=== PATIENT | female | born 1955 | race Caucasian/White ===

== ENCOUNTER → 2017-08-09 16:34 | Outpatient (CLI) | payer BC, SELFPAY ==
--- NOTE | 2017-08-09 16:43 | XR_ITS ---
XR lumbar spine min 4V Ordering Physician: Saul Benitez MD Patient Age: 61 years: Female HISTORY: ITS.REASON: LOW BACK PAIN [Back pain TECHNIQUE: 5 view lumbar spine series None available COMPARISON : FINDINGS Vertebral bodies show no acute findings. There is mild disc space narrowing mainly seen at the lower thoracic, thoracolumbar junction.. In the lumbar region disc space narrowing most notable L 2/3 with perhaps scant retrolisthesis. L2 on 3. AP view shows minor levocurvature at the upper lumbar spine L1-L3 level. As well.. Anterior marginal osteophytes most evident towards the upper lumbar region. Pedicles intact. Prominent stool is seen throughout the colon. No bowel dilatation or obstruction. . Lateral film also shows apposition of prominent posterior spinous processes- which can also be a source of local lower pain posteriorly. Mild/moderate degenerative facet changes lower L-spine also noted IMPRESSION: Developing degenerative changes lumbar spine. As detailed in text Disc space narrowing most notable at L2/3.. Mild levoscoliosis upper lumbar spine No fracture or acute findings lumbar region
== END ==
PROVIDERS: PCP Family Medicine; Visit Provider Family Medicine
DX: M54.5 Low back pain (principal)
CPT/HCPCS: 72110

== ENCOUNTER → 2017-10-25 07:59 | Outpatient (CLI) | payer BC, SELFPAY ==
--- NOTE | 2017-10-25 08:06 | MR_ITS ---
MR head/brain wo con HISTORY: February loss, headache, dizziness, falling frequently ITS.REASON: MEMORY LOSS ORDERING PHYSICIAN: Saul Benitez MD PATIENT AGE: 62 years COMPARISON: 03/08/2015 TECHNIQUE: Standard multiplanar multiecho sequences are performed without contrast. FINDINGS: There is generalized atrophy with scattered periventricular and subcortical T2 white matter hyperintensities. No midline shift, mass effect, intracranial hemorrhage, or hydrocephalus. No evidence of acute infarction. There is nonspecific increased T2 signal within the central aspect of the armen and may be related to ischemic gliotic change. The cerebellopontine angles, cerebellum, and brainstem are unremarkable. The mesentery, optic chiasm, and corpus callosum are unremarkable. No cerebellar ectopia. The hippocampal gyri are unremarkable in the temporal horns are symmetric. No mastoid effusion or sinus air-fluid level. No large aneurysm. Small aneurysms may not be detected with this technique and may be better evaluated for with MRA if clinically warranted IMPRESSION: 1. No acute intracranial findings. 2. Atrophy with mild chronic ischemic gliotic change IMPRESSION:
== END ==
PROVIDERS: PCP Family Medicine; Visit Provider Family Medicine
DX: R41.3 Other amnesia (principal)
CPT/HCPCS: 70551

== ENCOUNTER → 2018-02-15 09:23 | Outpatient (CLI) | payer MEDICARE, BC, SELFPAY ==
[2018-02-15 10:00] LABS: Basophils % 0.4 % (0.1-2.0); Eosinophils # 0.2 K/mm3 (0.0-0.4); Eosinophils % 2.9 % (0.1-12.0); Hematocrit 39.9 % (37.0-47.0); Hemoglobin 13.1 g/dL (12.2-16.2); Lymphocytes # 1.5 K/mm3 (0.7-4.5); Mean Corpuscular HGB Conc 32.8 g/dL (31.8-35.4); Mean Corpuscular Hemoglobin 28.2 pg (27.0-31.2); Mean Platelet Volume 6.9 fl (7.4-10.4); Monocytes # 0.4 K/mm3 (0.1-1.0); Neutrophils # 4.4 K/mm3 (1.8-7.8); Neutrophils % 67.8 % (37.0-80.0); Platelet Count 303 K/mm3 (142-424); Red Blood Count 4.64 M/mm3 (4.20-5.40); Red Cell Distribution Width 15.4 % (11.5-17.5); White Blood Count 6.5 K/mm3 (4.8-10.8)
[2018-02-15 13:14] LABS: Alanine Aminotransferase 31 U/L (12-78); Albumin Level 3.5 gm/dL (3.4-5.0); Albumin/Globulin Ratio 1.1 (1.1-1.8); Alkaline Phosphatase 96 U/L (46-116); Anion Gap 7.9 mEq/L (5-15); Aspartate Amino Transferase 18 U/L (15-37); Bilirubin,Total 0.3 mg/dL (0.2-1.0); Blood Urea Nitrogen 21 mg/dL (7-18); Calcium 9.3 mg/dL (8.5-10.1); Carbon Dioxide 30 mmol/L (21.0-32.0); Chloride 106 mmol/L (98-107); Creatinine,Serum 0.93 mg/dL (0.55-1.02); Estimated Glomerular Filt Rate 61 ml/min (>60); GFR (African American) 74 ML/MIN (>60); Globulin 3.2 gm/dl (1.3-3.2); Glucose 105 mg/dL (74-106); Potassium 4.9 mmoL/L (3.5-5.1); Sodium 139 mmol/L (136-145); Thyroid Stimulating Hormone 0.45 uIU/ml (0.358-3.740); Total Protein,Serum 6.7 gm/dL (6.4-8.2)
[2018-02-15 13:27] LABS: Erythrocyte Sedimentation Rate 20 mm/hr (0-30)
[2018-02-16 09:21] LABS: Vitamin B12 383 pg/mL (232-1245)
[2018-02-16 14:17] LABS: Anti-Jo-1 <0.2 AI (0.0-0.9); Anti-Smith Antibody <0.2 AI (0.0-0.9); Antichromatin Antibodies <0.2 AI (0.0-0.9); Antiscleroderma-70 Antibodies <0.2 AI (0.0-0.9); RNP Antibodies 0.3 AI (0.0-0.9); Sjogren's Anti-SS-A <0.2 AI (0.0-0.9); Sjogren's Anti-SS-B <0.2 AI (0.0-0.9)
[2018-02-17 06:51] LABS: Anti-Centromere B Antibodies <0.2 AI (0.0-0.9); Anti-DNA (DS) Ab Qn <1 IU/mL (0-9); Folate 3.5 ng/mL (>3.0); Rapid Plasma Reagin Ab Titer Non Reactive (NonRea<1:1)
== END ==
PROVIDERS: Visit Provider Specialist
DX: J44.9 Chronic obstructive pulmonary disease, unspecified (principal); E78.4 Other hyperlipidemia; G47.33 Obstructive sleep apnea (adult) (pediatric); R41.3 Other amnesia; I25.10 Atherosclerotic heart disease of native coronary artery without angina pectoris; I51.9 Heart disease, unspecified; I11.9 Hypertensive heart disease without heart failure
CPT/HCPCS: 36415; 80053; 82607; 82746; 84443; 85025; 85651; 86225; 86235; 86592; G0399

== ENCOUNTER → 2018-03-07 08:04 | Outpatient (POV) | payer MEDICARE, BC, SELFPAY | PROVIDERS: PCP Family Medicine; Visit Provider Specialist | DX: R41.3 Other amnesia (principal); G47.30 Sleep apnea, unspecified; E78.4 Other hyperlipidemia; J44.9 Chronic obstructive pulmonary disease, unspecified; I25.10 Atherosclerotic heart disease of native coronary artery without angina pectoris; I51.9 Heart disease, unspecified | CPT/HCPCS: 95819 ==

== ENCOUNTER → 2018-04-04 08:45 | Outpatient (CLI) | payer MEDICARE, BC, SELFPAY ==
--- NOTE | 2018-04-04 08:49 | MM_ITS ---
MM Dig screening mamm BI w/CAD ORDERING PHYSICIAN : Saul Benitez MD PATIENT AGE: 62 years GENDER: Female COMPARISON: August INDICATION: Routine screening No hormones no new complaints noncontributory family history TECHNIQUE: Standard CC and MLO images were obtained. R2 CAD reviewed. Axillary cc views both breast included. Also cleavage view FINDINGS: Moderate fibroglandular elements both breasts. Moderate density breast. With no significant new findings. RIGHT BREAST:No new areas of concern Stable intramammary node upper-outer quadrant right breast it is actually smaller today than on previous MLO. LEFT BREAST:No new areas of concern IMPRESSION: . No new areas of significant concern. Stable bilateral mammogram BI-RADS Category: 2 Benign Finding(s) RECOMMENDED FOLLOW-UP: 1YR 1 YEAR FOLLOW-UP (A letter has been sent to the patient regarding results of the study.)
== END ==
PROVIDERS: PCP Family Medicine; Visit Provider Family Medicine
DX: Z12.31 Encounter for screening mammogram for malignant neoplasm of breast (principal)
CPT/HCPCS: 77067

== ENCOUNTER → 2018-06-20 08:17 | Outpatient (CLI) | payer MEDICARE, BC, SELFPAY ==
--- NOTE | 2018-06-20 08:19 | XR_ITS ---
XR DEXA axial skeleton HISTORY: ITS.REASON: Dexa Scan- Possible Osteoporosis ORDERING PHYSICIAN: Alexsi Mitchell MD PATIENT AGE: 62 years COMPARISON: None FINDINGS: The BMD measured at the Right femoral neck is 0.763 g/cm squared with a T score of -2.0. This is considered Osteopenic according to the World Health Organization criteria. Fracture risk is Moderate. Treatment is advised. IMPRESSION: Osteopenia with moderate fracture risk. Treatment is advised. Suggest follow-up exam June 2020
== END ==
PROVIDERS: PCP Family Medicine; Visit Provider Nurse Practitioner Obstetrics & Gynecology
DX: M81.0 Age-related osteoporosis without current pathological fracture (principal)
CPT/HCPCS: 77080

== ENCOUNTER → 2018-06-28 10:11 | Outpatient (CLI) | payer MEDICARE, BC, SELFPAY ==
--- NOTE | 2018-06-28 10:14 | XR_ITS ---
XR chest 2V HISTORY: ITS.REASON: soa. Cough congestion. ORDERING PHYSICIAN: RANI Rowley PATIENT AGE: 62 years Technique: PA and lateral chest. Next field COMPARISON: AP and lateral thoracic spine from 2016. An previous chest film from December 2014 FINDINGS: The heart is normal in size. Jojo and skeletal structures satisfactory. Again note the mild degenerative changes with the minor scoliosis at T-spine. Slight levocurvature upper T-spine with slight dextrocurvature lower T-spine. No compression fractures. . When compared to 2014 there is only some slight additional linear atelectasis towards the left CP angle and slight additional fibrotic changes towards bases likely present. No discrete focal pneumonia . The heart normal size. No vascular congestion. No CHF. No pleural effusion. IMPRESSION Nothing definitely acute . No focal pneumonia evident. No effusion COPD with Chronic changes, mild fibrotic changes & atelectasis toward lung bases left more so than right.. Doubt infiltrate here at left base.
== END ==
PROVIDERS: PCP Family Medicine; Visit Provider Physician Assistant
DX: J44.9 Chronic obstructive pulmonary disease, unspecified (principal); E78.49 Other hyperlipidemia; G47.33 Obstructive sleep apnea (adult) (pediatric); I11.9 Hypertensive heart disease without heart failure; I25.10 Atherosclerotic heart disease of native coronary artery without angina pectoris; I51.9 Heart disease, unspecified; R05 Cough; R06.02 Shortness of breath; R09.89 Other specified symptoms and signs involving the circulatory and respiratory systems
CPT/HCPCS: 71046

== ENCOUNTER → 2018-07-09 10:30 | Outpatient (CLI) | payer MEDICARE, BC, SELFPAY | LOC: LAB 10:32 → LAB.DROPOF 07-10 07:46 | PROVIDERS: Visit Provider Emergency Medicine | DX: J32.0 Chronic maxillary sinusitis (principal) | CPT/HCPCS: 87205 ==

== ENCOUNTER → 2018-07-19 15:20 | Outpatient (CLI) | payer MEDICARE, BC, SELFPAY | PROVIDERS: Visit Provider Emergency Medicine | DX: J32.0 Chronic maxillary sinusitis (principal) | CPT/HCPCS: 87070; 87205 ==

== ENCOUNTER → 2018-07-26 07:47 | Outpatient (CLI) | payer MEDICARE, BC, SELFPAY ==
--- NOTE | 2018-07-26 08:00 | CT_ITS ---
CT sinus wo con CLINICAL INDICATION: ITS.REASON: NASAL CONGESTION WITH RHINORRHEA ORDERING PHYSICIAN: Natalie Garvey MD PATIENT AGE: 62 years COMPARISON: None TECHNIQUE:Axial images obtained with sagittal and coronal reformats. All CT scans at the facility use one or more dose reduction, viz: automated exposure control, ma/kV adjustment per patient size (including targeted exams where dose is matched to indication, i.e. head), or iterative reconstruction technique. FINDINGS: The frontal sinuses, right maxillary sinus, and sphenoid sinuses have an unremarkable appearance. There is opacification of an anterior left ethmoid air cell with the remaining ethmoid sinuses unremarkable. There is a small retention cyst in the floor the left maxillary sinus at 5 mm. No sinus air-fluid level evident. There is moderate rightward nasal septal deviation anteriorly. The ostiomeatal units are patent. The TMJs have an unremarkable appearance. The orbits are unremarkable. No mastoid effusion. IMPRESSION: 1. Minimal paranasal sinus disease of the left ethmoid and maxillary sinus. 2. Moderate rightward nasal septal deviation
== END ==
PROVIDERS: PCP Family Medicine; Visit Provider Emergency Medicine
DX: J34.89 Other specified disorders of nose and nasal sinuses (principal)
CPT/HCPCS: 70486

== ENCOUNTER → 2018-09-12 20:13 | Outpatient (CLI) | payer MEDICARE, BC, SELFPAY | PROVIDERS: PCP Family Medicine; Visit Provider Specialist | DX: G47.33 Obstructive sleep apnea (adult) (pediatric) (principal); R41.3 Other amnesia | CPT/HCPCS: 95811 ==

== ENCOUNTER → 2018-09-13 09:02 | Outpatient (POV) | payer MEDICARE, BC, SELFPAY | PROVIDERS: Visit Provider Otolaryngology | DX: Z00.00 Encounter for general adult medical examination without abnormal findings (principal) ==

== ENCOUNTER → 2018-09-29 09:39 | Outpatient (CLI) | payer MEDICARE, BC, SELFPAY ==
[2018-09-29 10:39] VITALS: PULSE 79
== END ==
PROVIDERS: PCP Family Medicine; Visit Provider Family Medicine
DX: R06.02 Shortness of breath (principal); J44.9 Chronic obstructive pulmonary disease, unspecified; Z87.891 Personal history of nicotine dependence
CPT/HCPCS: 94060; 94640; 94726; 94729

== ENCOUNTER 2018-10-04 12:57 | Outpatient (CLI) | payer MEDICARE, BC, SELFPAY ==
[2018-10-04 13:15] VITALS: BP 140/83; PULSE 92; RESP 18
== END 2018-10-04 13:31 | disposition home or self-care (01) ==
LOC: INF 12:57
PROVIDERS: Visit Provider Nurse Practitioner Obstetrics & Gynecology
DX: M85.89 Other specified disorders of bone density and structure, multiple sites (principal)
CPT/HCPCS: 96372; J0897

== ENCOUNTER → 2018-10-05 09:15 | Outpatient (CLI) | payer MEDICARE, BC, SELFPAY ==
--- NOTE | 2018-10-05 09:17 | CA_ITS ---
PROCEDURE: INDICATIONS FOR THE TEST: Chest pain COPD+ Heart Murmur Tobacco Smoking Palpitations Fatigue+ Syncope Edema Hypertension+Diabetes Mellitus Rheumatic Fever SOB+GARVEY+Obesity Hyperlipidemia+ Family History HD Additional History CAD PATIENT INFORMATION HEIGHT: 64 WEIGHT: 185 GENDER: Female B/P: 122/81 2-D/M-MODE INTERPRETATION: 2-D MEASUREMENTS OBSERVED VALUES IN CMS Right Ventricular Dimension (RVDd) 1.5 Interventricular Septum (Thickness)(IVsd) 0.9 Left Ventricular Internal Dimensions(LVIDd) 3.2 Left Ventricular Posterior Wall (Thickness)(LVPWd) 0.7 Aortic Root 2.2 Aortic Cusp Separation 1.7 Left Atrial Dimensions (LAD) 3.2 2D 1. Left atrium is normal size, left ventricle is normal size, there is no concentric left ventricular hypertrophy, visually estimated ejection fraction 55% with no regional wall motion abnormality. 2. The right atrium and right ventricle are normal size and contractility. 3. The aortic valve is minimally thickened and fibrosed. 4. The mitral and tricuspid valve are grossly normal. 5. The pulmonic valve is poorly visualized. 6. No significant pericardial effusion noted. DOPPLER INTERROGATION: Doppler interrogation of the aortic, mitral and tricuspid valvular presence of mild mitral and tricuspid regurgitation, tricuspid regurgitation jet velocity is inadequate for calculation of the right ventricular systolic pressure, diastolic parameters are within normal range. CONCLUSION: 1. Normal left ventricular size, preserved left ventricular systolic function, visually estimated ejection fraction of 55% with no regional wall motion abnormality, diastolic parameters are within normal range. 2. Mild mitral and tricuspid regurgitation. Inferior vena cava normal size with normal inspiratory collapse. 3. No significant pericardial effusion noted
== END ==
PROVIDERS: PCP Family Medicine; Visit Provider Internal Medicine
DX: R06.00 Dyspnea, unspecified (principal); R06.01 Orthopnea; R06.02 Shortness of breath
CPT/HCPCS: 93306

== ENCOUNTER → 2018-10-25 09:07 | Outpatient (POV) | payer MEDICARE, BC, SELFPAY | PROVIDERS: Visit Provider Otolaryngology | DX: Z00.00 Encounter for general adult medical examination without abnormal findings (principal) ==

== ENCOUNTER → 2018-11-04 13:50 | Outpatient (CLI) | payer MEDICARE, BC, SELFPAY ==
--- NOTE | 2018-11-04 13:52 | CT_ITS ---
EXAM: CT LUNG LOW DOSE WO CONTRAST TECHNIQUE: The exam was performed on a GE Light Speed [address] scanner using 3.0 mGy CTDI. A low dose helical CT CHEST was performed on a multi-detector scanner. All CT scans at this facility use one or more dose reduction techniques, viz.: automated exposure control, ma/kV adjustment per patient size (including targeted exams where dose is matched to indication, i.e. head) or iterative reconstruction technique. The LDCT was performed in a facility that meets the criteria for the screening program. Data regarding this exam was submitted to ACR which is an approved registry. The order for this exam indicates that it came as a result of a lung cancer screening counseling shard decision-making visit that included all the elements required of such a visit including smoking cessation. The radiologist interpreting this exam meets the CMS criteria for the LDCT lung cancer screening program. The exam is reported using the Lung-RADS classification scale and reported to the ACR registry. NOTE: This study was performed for the specific purposes of lung cancer screening and is not an alternative to diagnostic chest CT. RADIATION DOSE: CTDI vol(CT dose Index-volume) = 2.9mGy DLP (Dose Length Product) = 97.32 mGy-cm HISTORY: 2-3 ppd per day for 40 years = over 80 pack-year history. Quit smoking 4 years ago. COPD. CAD. COMPARISON: Previous routine CT chest February 2012 used as comparison. No previous LDCT chest. Also 2 view chest June 2018 \ Findings LUNG PARENCHYMA Emphysema: Mild hyperexpansion withMild/Moderate centrilobular emphysematous changes No significant change since 2011. Been no significant new findings. But no focal pneumonia. No pleural lesion or effusion. There is minimal wispy atelectasis and minor scarring at the posterior aspect of lower lobes and posterior sulcus, again seen . There is minimal additional linear scarring and minor focal fibrotic changes at the posterior aspect left lower lobe. Also some mild linear atelectasis & scarring towards the left CP angle best seen on coronal image 30 LUNG NODULE SURVEY:. No lung mass or suspicious lung nodule evident. Small 3 mm nodule within posterior medial aspect of the right upper lobe. Axial image 24. Dense for size and I believe is a early granuloma. I believe is also seen on 2012 MEDIASTINUM. No mediastinal adenopathy or mass. Mild calcification aortic arch. . No hilar mass or adenopathy. Central bronchi are clear. Borderline airway thickening just at and distal to the hilar regions Uppermost abdomen. Generous adrenal glands bilaterally. I suspect there is a 1 cm low-density adenoma the left and right adrenal age fullness here bilaterally. No significant change and adrenals since February 2012. Upper normal wall thickness distal esophagus. Mild degenerative changes lower T-spine. No osseous lesion IMPRESSION: 1. Mild/moderate emphysematous changes. Borderline airway thickening. Scant chronic changes at posterior lung bases 2. No significant lung mass or nodule. It no areas of concern Tiny Benign calcified granuloma right upper lobe stable since 2011 Lung RADS Category: 1 2. Small 1 cm low-density benign fatty nonfunctioning adrenal adenomas bilaterally. Not of concern. RECOMMENDATIONS: 12 monthd LDCT follow-up
== END ==
PROVIDERS: PCP Family Medicine; Visit Provider Family Medicine
DX: Z12.2 Encounter for screening for malignant neoplasm of respiratory organs (principal); Z87.891 Personal history of nicotine dependence

== ENCOUNTER → 2018-12-13 09:32 | Outpatient (POV) | payer MEDICARE, BC, SELFPAY | PROVIDERS: Visit Provider Otolaryngology | DX: Z00.00 Encounter for general adult medical examination without abnormal findings (principal) ==

== ENCOUNTER 2019-04-07 12:46 | Outpatient (CLI) | payer MEDICARE, BC, SELFPAY ==
[2019-04-07 12:54] VITALS: BP 113/69; PULSE 97; RESP 18; O2SAT 95
== END 2019-04-07 13:00 | disposition home or self-care (01) ==
LOC: INF 12:46
PROVIDERS: Visit Provider Nurse Practitioner Obstetrics & Gynecology
DX: M85.89 Other specified disorders of bone density and structure, multiple sites (principal)
CPT/HCPCS: 96372; J0897

== ENCOUNTER → 2019-04-10 12:26 | Outpatient (CLI) | payer MEDICARE, BC, SELFPAY ==
--- NOTE | 2019-04-10 12:27 | CA_ITS ---
APPROVED REPORT Account Development Manager: JHONATAN Laterality: Bilateral Study Quality: Good Indications: memory loss SHER Risk Factors Hypertension: Doppler Spectral Velocity Analysis ECA (R) 96.60/ cm/s ECA (L) 98.20/ cm/s dICA (R) 85.60/31.40 cm/s dICA (L) 93.20/34.50 cm/s Swati (R) 122.00/44.00 cm/s Swati (L) 97.40/44.80 cm/s pICA (R) 98.20/38.50 cm/s pICA (L) 91.90/37.70 cm/s dCCA (R) 102.00/23.60 cm/s dCCA (L) 90.40/28.30 cm/s pCCA (R) 87.20/22.00 cm/s pCCA (L) 91.90/28.30 cm/s Vert (R) 57.40/ cm/s Vert (L) 40.10/ cm/s ICA/CCA 1.20 ICA/CCA 1.08 Findings Duplex evaluation demonstrates stenosis of the right proximal internal carotid artery <20% with PSV <140 cm/sec, EDV <100 cm/sec, and IC/CC Ratio <4.0.Duplex evaluation demonstrates stenosis of the left proximal internal carotid artery in the range of 20-49% with PSV <140 cm/sec, EDV <100 cm/sec, and IC/CC Ratio <4.0.Antegrade flow seen bilateral vertebral arteries. No significant change from exam of 03/08/2015 Conclusion Duplex evaluation demonstrates stenosis of the right proximal internal carotid artery <20% with PSV <140 cm/sec, EDV <100 cm/sec, and IC/CC Ratio <4.0.Duplex evaluation demonstrates stenosis of the left proximal internal carotid artery in the range of 20-49% with PSV <140 cm/sec, EDV <100 cm/sec, and IC/CC Ratio <4.0.Antegrade flow seen bilateral vertebral arteries. No significant change from exam of 03/08/2015 Irregular plaquel, consider cta Electronically signed by : Ed Zapata, 04/10/2019 13:34:56
== END ==
PROVIDERS: PCP Family Medicine; Visit Provider Nurse Practitioner Family
DX: R41.3 Other amnesia; E78.5 Hyperlipidemia, unspecified; I11.9 Hypertensive heart disease without heart failure; I25.10 Atherosclerotic heart disease of native coronary artery without angina pectoris; I65.23 Occlusion and stenosis of bilateral carotid arteries; R00.0 Tachycardia, unspecified
CPT/HCPCS: 93880

== ENCOUNTER → 2019-04-17 14:31 | Outpatient (CLI) | payer MEDICARE, BC, SELFPAY ==
--- NOTE | 2019-04-17 14:42 | CT_ITS ---
Procedure: CT ANGIO NECK CLINICAL HISTORY: abnormal carotid ultrasound Dizziness, headache COMPARISON: 04/10/2019 carotid duplex TECHNIQUE: IV Contrast: 100ml Optiray 350 Axial images obtained with sagittal and coronal reformats. All CT scans at the facility use one or more dose reduction, viz: automated exposure control, ma/kV adjustment per patient size (including targeted exams where dose is matched to indication, i.e. head), or iterative reconstruction technique. FINDINGS: Aortic arch: No significant dilatation. Only small amount of plaque is present. Right brachiocephalic artery: Unremarkable. Right subclavian artery: Mild amount of calcific plaque is present at the ostium of the right subclavian with 30 percent stenosis. Right common carotid: Tortuous but no significant stenosis. Right internal carotid artery: There is a mild amount of hard and soft plaque at the ostium of the right ICA with approximately 25 percent stenosis. No ulcerations apparent. The distal ICA has an unremarkable appearance. Right vertebral artery: Calcific plaque at the ostium with 30 percent stenosis. Left common carotid: Unremarkable. Left internal carotid: Mixed soft and calcific plaque at the bulb and proximal left ICA with approximately 25-30 percent stenosis. No ulcerated plaques evident. No significant stenotic lesions. Mid distal left ICA is unremarkable. Left vertebral artery: Unremarkable Pertinent non angiographic centrilobular emphysema. There is a central cystic lesion involving the isthmus of the thyroid gland at 8 mm nonspecific. IMPRESSION: Mild atheromatous changes are present involving the aorta great vessels and carotid arteries. No hemodynamic significant stenotic lesion is evident. There is mixed soft and hard plaque involving both bulbs and proximal ICAs but no ulcerative lesions apparent. Stenosis of the right ICA is approximately 25 percent and stenosis of the left ICA is approximately 25-30 percent Dictated by: Denilson Junior MD 04/18/2019 15:34 Electronically signed by Denilson Junior MD in [place] 04/18/2019 15:34
[2019-04-17 14:48] LABS: Blood Urea Nitrogen 36 mg/dL (7-18); Creatinine,Serum 0.84 mg/dL (0.55-1.02); Estimated Glomerular Filt Rate 69 ml/min (>60); GFR (African American) 83 ML/MIN (>60)
== END ==
PROVIDERS: Urology; PCP Family Medicine; Visit Provider Physician Assistant
DX: R93.89 Abnormal findings on diagnostic imaging of other specified body structures (principal); E78.5 Hyperlipidemia, unspecified; G47.33 Obstructive sleep apnea (adult) (pediatric); I11.9 Hypertensive heart disease without heart failure; I25.10 Atherosclerotic heart disease of native coronary artery without angina pectoris; I65.23 Occlusion and stenosis of bilateral carotid arteries; Z87.891 Personal history of nicotine dependence
CPT/HCPCS: 36415; 70498; 82565; 84520; Q9967

== ENCOUNTER → 2019-05-09 08:38 | Outpatient (CLI) | payer MEDICARE, BC, SELFPAY ==
[2019-05-09 11:02] LABS: Alanine Aminotransferase 32 U/L (12-78); Albumin Level 3.3 gm/dL (3.4-5.0); Albumin/Globulin Ratio 0.9 (1.1-1.8); Alkaline Phosphatase 84 U/L (46-116); Anion Gap 12.1 mEq/L (5-15); Aspartate Amino Transferase 28 U/L (15-37); Bilirubin,Total 0.4 mg/dL (0.2-1.0); Blood Urea Nitrogen 31 mg/dL (7-18); Calcium 9.3 mg/dL (8.5-10.1); Carbon Dioxide 29 mmol/L (21.0-32.0); Chloride 103 mmol/L (98-107); Chol/HDL Ratio 2.4 (1-3.5); Cholesterol 124 mg/dL (140-200); Creatinine,Serum 0.94 mg/dL (0.55-1.02); Estimated Glomerular Filt Rate 61 ml/min (>60); GFR (African American) 73 ML/MIN (>60); Globulin 3.6 gm/dl (1.3-3.2); Glucose 97 mg/dL (74-106); HDL Cholesterol 51 mg/dL (29-89); LDL Cholesterol 59 mg/dL (0-130); Potassium 4.1 mmoL/L (3.5-5.1); Sodium 140 mmol/L (136-145); Total Protein,Serum 6.9 gm/dL (6.4-8.2); Triglycerides 68 mg/dL (30-200); VLDL Cholesterol 14 mg/dL (0-40)
== END ==
PROVIDERS: Visit Provider Family Medicine
DX: I10 Essential (primary) hypertension (principal); Z86.79 Personal history of other diseases of the circulatory system
CPT/HCPCS: 36415; 80053; 80061

== ENCOUNTER → 2019-05-11 10:04 | Outpatient (CLI) | payer MEDICARE, BC, SELFPAY ==
--- NOTE | 2019-05-11 10:06 | MM_ITS ---
PROCEDURE: MM DIG SCREENING MAMM BI W/CAD Patient Age:63Y CLINICAL INDICATION: Routine Screening Mammogram Patient takes estrogen. No new complaints. Noncontributory family history. COMPARISON: [facility] DIGITAL MAMM-SCREEN BILATERAL from 05/05/2010 [facility] DIGITAL MAMM-SCREEN BILATERAL from 08/29/2012 [facility] DIG MAMM-SCREEN MEAGAN from 09/13/2015 [facility] MM Dig screening mamm BI w/CAD from 04/04/2018 TECHNIQUE: Standard CC and MLO images were obtained. R2 CAD reviewed.. Additional nipple profile CC views bilaterally and right MLO FINDINGS: Stable appearing bilateral mammogram. No new areas of significant concern. Minimal residual fibroglandular elements most evident anteriorly. Overall lower density breast with moderate fatty replacement but Right breast. No new areas of concern Stable intramammary node upper outer quadrant. Stable parenchymal pattern Left mammogram on no new findings IMPRESSION: Stable bilateral mammogram . No significant new findings in either breast. Bilateral follow-up 1 year. BI-RAD Category: 2 Benign Finding(s) FOLLOW-UP: 1YR 1 Year Follow-up (A letter has been sent to the patient regarding results of the study.) Dictated by: Junior Winslow MD 05/13/2019 10:58 Electronically signed by Junior Winslow MD in [place] 05/13/2019 10:58
== END ==
PROVIDERS: PCP Internal Medicine; Visit Provider Nurse Practitioner Obstetrics & Gynecology
DX: Z12.31 Encounter for screening mammogram for malignant neoplasm of breast (principal)
CPT/HCPCS: 77067

== ENCOUNTER → 2019-07-15 11:18 | Outpatient (CLI) | payer MEDICARE, BC, SELFPAY ==
--- NOTE | 2019-07-15 11:30 | XR_ITS ---
PROCEDURE: XR CHEST 2V Patient Age:63Y CLINICAL HISTORY: COPD WITH EXACERBATION. Productive cough 8 weeks the COMPARISON: CXR CHEST(2 VIEWS-NOT PORTABLE) from 12/31/2014 CXR CHEST(2 VIEWS-NOT PORTABLE) from 09/04/2015 CXR2V XR chest 2V from 06/28/2018 FINDINGS: No significant change since previous chest film 09/04/2015.. This slight coarsened markings at the right infrahilar region was seen on that study and unchanged and appears reflect some mild chronic changes also evident on June 2018 CXR exam No focal pneumonia or consolidation. Of mild bilateral chronic changes most evident on right. The heart is normal in size neo and mediastinal structures unremarkable. Normal pulmonary vascularity chest wall in T-spine unremarkable. IMPRESSION: stable chest with nothing acute. Mild chronic changes Dictated by: Junior Winslow MD 07/15/2019 20:42 Electronically signed by Junior Winslow MD in [place] 07/15/2019 20:42
== END ==
PROVIDERS: PCP Family Medicine; Referring Provider Family Medicine; Visit Provider Family Medicine
DX: J44.1 Chronic obstructive pulmonary disease with (acute) exacerbation (principal)
CPT/HCPCS: 71046

== ENCOUNTER → 2019-08-21 15:26 | Outpatient (CLI) | payer MEDICARE, BC, SELFPAY ==
--- NOTE | 2019-08-21 15:39 | XR_ITS ---
PROCEDURE: XR HIP RT 2-3V W/PELVIS CLINICAL INDICATION: RT HIP PAIN Right hip pain and tenderness COMPARISON: BONE BONE DENSITOMETRY(HIP:L.SPINE) from 08/29/2012 BONE3 BONE DENSITOMETRY(HIP:LT SPINE from 05/20/2017 XR FEMUR RT 2V from 08/21/2019 FINDINGS: No acute fracture or dislocation. No lytic or blastic change. Calcification is present along the posterior aspect the greater trochanter and could represent an area of heterotopic ossification versus an old avulsion injury.. The mid distal aspect of the femur has an unremarkable appearance IMPRESSION: 1. No acute finding. 2. Heterotopic ossification versus old avulsion injury of the posterior aspect of the greater trochanter Dictated by: Denilson Junior MD 08/21/2019 18:05 Electronically signed by Denilson Junior MD in [place] 08/21/2019 18:05
== END ==
PROVIDERS: PCP Family Medicine; Visit Provider Family Medicine
DX: M25.551 Pain in right hip (principal)
CPT/HCPCS: 73502; 73552

== ENCOUNTER 2019-10-03 13:07 | Outpatient (CLI) | payer MEDICARE, BC, SELFPAY ==
[2019-10-03 13:20] VITALS: BP 119/66; PULSE 92; RESP 20; TEMP 36.6; O2SAT 94
== END 2019-10-03 13:20 | disposition home or self-care (01) ==
LOC: INF 13:08
PROVIDERS: Visit Provider Nurse Practitioner Obstetrics & Gynecology
DX: M85.89 Other specified disorders of bone density and structure, multiple sites (principal)
CPT/HCPCS: 96372; J0897

== ENCOUNTER 2020-04-04 11:34 | Outpatient (CLI) | payer MEDICARE, BC, SELFPAY ==
[2020-04-04 11:45] VITALS: BP 99/62; PULSE 85; RESP 18; TEMP 36.4; O2SAT 97
== END 2020-04-04 12:05 | disposition home or self-care (01) ==
LOC: INF 11:34
PROVIDERS: Visit Provider Nurse Practitioner Obstetrics & Gynecology
DX: M85.89 Other specified disorders of bone density and structure, multiple sites (principal)
CPT/HCPCS: 96372; J0897

== ENCOUNTER → 2020-04-29 08:57 | Outpatient (CLI) | payer MEDICARE, BC, SELFPAY ==
--- NOTE | 2020-04-29 08:59 | CA_ITS ---
APPROVED REPORT Enrollment Advisor: JHONATAN Laterality: Bilateral Study Quality: Good Indications: meggan Doppler Spectral Velocity Analysis ECA (R) 92.50/14.60 cm/s ECA (L) 64.70/15.00 cm/s dICA (R) 78.00/34.30 cm/s dICA (L) 68.00/23.50 cm/s Swati (R) 78.80/32.60 cm/s Swati (L) 96.50/23.90 cm/s pICA (R) 51.30/17.10 cm/s pICA (L) 76.50/21.40 cm/s dCCA (R) 66.00/19.70 cm/s dCCA (L) 69.50/19.20 cm/s pCCA (R) 99.40/24.00 cm/s pCCA (L) 63.10/16.00 cm/s Vert (R) 44.40/15.00 cm/s Vert (L) 70.00/20.30 cm/s ICA/CCA 1.20 ICA/CCA 1.40 Findings Duplex evaluation demonstrates stenosis of the right proximal internal carotid artery <20% with PSV <140 cm/sec, EDV <100 cm/sec, and IC/CC Ratio <4.0.Duplex evaluation demonstrates stenosis of the left proximal internal carotid artery in the range of 20-49% with PSV <140 cm/sec, EDV <100 cm/sec, and IC/CC Ratio <4.0.Antegrade flow seen bilateral vertebral arteries.No significant change from exam of 04/10/19 Conclusion Duplex evaluation demonstrates stenosis of the right proximal internal carotid artery <20% with PSV <140 cm/sec, EDV <100 cm/sec, and IC/CC Ratio <4.0.Duplex evaluation demonstrates stenosis of the left proximal internal carotid artery in the range of 20-49% with PSV <140 cm/sec, EDV <100 cm/sec, and IC/CC Ratio <4.0.Antegrade flow seen bilateral vertebral arteries.No significant change from exam of 04/10/19 Electronically signed by : Denilson Junior MD 04/30/2020 09:09:57
[2020-04-29 10:56] LABS: Alanine Aminotransferase 11 U/L (12-78); Albumin Level 3.7 g/dl (3.5-5.0); Alkaline Phosphatase 107 U/L (38-126); Aspartate Amino Transferase 24 U/L (14-36); Bilirubin,Direct 0.1 mg/dl (0.0-0.4); Bilirubin,Indirect 0.3 mg/dL (0.0-0.9); Bilirubin,Total 0.4 mg/dl (0.2-1.3); Bilirubin,Unconjugated 0.3 mg/dL (0.0-1.1); Chol/HDL Ratio 1.9 (1-3.5); Cholesterol 110 mg/dl (140-200); HDL Cholesterol 58 mg/dl (40-60); Total Protein,Serum 6.7 g/dl (6.3-8.2); Triglycerides 57 mg/dl (30-150); VLDL Cholesterol 11 mg/dL (0-40)
[2020-04-29 11:08] LABS: Direct LDL Cholesterol 48.43 mg/dL (100-129)
== END ==
PROVIDERS: PCP Family Medicine; Visit Provider Urology
DX: E78.5 Hyperlipidemia, unspecified (principal); G47.33 Obstructive sleep apnea (adult) (pediatric); I11.9 Hypertensive heart disease without heart failure; I25.10 Atherosclerotic heart disease of native coronary artery without angina pectoris; J44.9 Chronic obstructive pulmonary disease, unspecified; R06.00 Dyspnea, unspecified; Z72.0 Tobacco use; I65.23 Occlusion and stenosis of bilateral carotid arteries
CPT/HCPCS: 36415; 80061; 80076; 93880

== ENCOUNTER → 2020-05-17 12:52 | Outpatient (CLI) | payer MEDICARE, BC, SELFPAY ==
--- NOTE | 2020-05-17 14:27 | CT_ITS ---
PROCEDURE: CT LUNG SCREENING CLINICAL INDICATION: LDCT low dose screen for pulmonary fuction study, soa, Cough 80 pack year smoking history COMPARISON: CT LUNGSCREEN CT lung screening from 11/04/2018 TECHNIQUE: The exam was performed on a GE Light Speed [address] scanner using 2.90 mGy CTDI. A low dose helical CT CHEST was performed on a multi-detector scanner. All CT scans at the facility use one or more dose reduction, viz: automated exposure control, ma/kV adjustment per patient size (including targeted exams where dose is matched to indication, i.e. head), or iterative reconstruction technique. The LDCT was performed in a facility that meets the criteria for the screening program. Data regarding this exam was submitted to ACR which is an approved registry. The order for this exam indicates that it came as a result of a lung cancer screening counseling shard decision-making visit that included all the elements required of such a visit including smoking cessation. The radiologist interpreting this exam meets the CMS criteria for the LDCT lung cancer screening program. The exam is reported using the Lung-RADS classification scale and reported to the ACR registry. NOTE: This study was performed for the specific purposes of lung cancer screening and is not an alternative to diagnostic chest CT. RADIATION DOSE: CTDI vol(CT dose Index-volume) = 2.90mG DLP (Dose Length Product) = 97.68 mGcm FINDINGS: COPD with centrilobular emphysematous change. 2-3 mm nodule present in the left upper lobe medially and may be calcified not readily apparent previously. There is a questionable a 3 mm nodule in the left lower lobe not readily apparent previously. No suspicious nodules evident. OTHER FINDINGS: No other pertinent findings evident. IMPRESSION: Lung-RADS Category 2 Benign Appearance or Behavior Follow-up: Continue annual screening with LDCT in 12 months Dictated by: Denilson Junior MD 05/26/2020 10:50 Denilson Junior MD in [place] 05/26/2020 10:50
== END ==
PROVIDERS: PCP Family Medicine; Visit Provider Internal Medicine Pulmonary Disease
DX: Z87.891 Personal history of nicotine dependence (principal); Z12.2 Encounter for screening for malignant neoplasm of respiratory organs; R06.02 Shortness of breath; R05 Cough
CPT/HCPCS: 94060; 94618; 94726; 94729

== ENCOUNTER → 2020-05-28 12:45 | Outpatient (CLI) | payer MEDICARE, BC, SELFPAY ==
--- NOTE | 2020-05-28 12:45 | MM_ITS ---
PROCEDURE: MM DIG SCREENING MAMM BI W/CAD Digital Breast Tomosynthesis Included CLINICAL INDICATION: screening xmg There is no personal or family history of breast cancer. COMPARISON: [facility] DIG MAMM-SCREEN MEAGAN from 09/13/2015 [facility] MM Dig screening mamm BI w/CAD from 04/04/2018 MG MM DIG SCREENING MAMM BI W/CAD from 05/11/2019 TECHNIQUE: Standard CC and MLO images and 3D Tomosynthesis was obtained. R2 CAD reviewed. FINDINGS: Scattered fibroglandular densities are seen throughout both breasts. There are couple of benign-appearing calcifications right breast. There are couple stable benign-appearing tiny nodular densities in each breast. There is no suspicious lesion and no suspicious microcalcifications. IMPRESSION: Fibrofatty parenchyma with no suspicious lesions seen BI-RAD Category: 2 Benign Finding(s) FOLLOW-UP: 1YR 1 Year Follow-up (A letter has been sent to the patient regarding results of the study.) Dictated by: Dr. Nelson Mccartney MD 05/31/2020 12:55 Dr. Nelson Mccartney MD in [place] 05/31/2020 12:55
== END ==
PROVIDERS: PCP Family Medicine; Visit Provider Nurse Practitioner Obstetrics & Gynecology
DX: Z12.31 Encounter for screening mammogram for malignant neoplasm of breast (principal)
CPT/HCPCS: 77063; 77067

== ENCOUNTER → 2020-07-17 13:40 | Outpatient (CLI) | payer MEDICARE, BC, SELFPAY ==
--- NOTE | 2020-07-17 13:59 | ECG_ITS ---
APPROVED REPORT Exam: Resting ECG HR:82 bpm ECG Measurements Heart Rate 82 AXES LA 136 P 45 QRSd 74 QRS 108 QT 338 T 70 QTc 394 Conclusion Normal sinus rhythm Indeterminate axis Nonspecific ST abnormality Abnormal ECG Electronically signed by : Jesus June, 07/17/2020 17:10:04
[2020-07-17 15:10] LABS: Anion Gap 12.1 mEq/L (5-15); Blood Urea Nitrogen 27 mg/dl (7-17); Calcium 9.8 mg/dl (8.4-10.2); Carbon Dioxide 29 mmol/L (22.0-30.0); Chloride 99 mmol/L (98-107); Estimated Glomerular Filt Rate 63 ml/min (>60); GFR (African American) 77 ML/MIN (>60); Glucose 91 mg/dl (74-100); Potassium 4.1 mmoL/L (3.5-5.1); Sodium 136 mmol/L (136-145)
== END ==
PROVIDERS: Visit Provider Ophthalmology
DX: I25.10 Atherosclerotic heart disease of native coronary artery without angina pectoris (principal); J44.9 Chronic obstructive pulmonary disease, unspecified
CPT/HCPCS: 36415; 80048; 93005

== ENCOUNTER → 2020-09-10 06:44 | Outpatient (CLI) | payer MEDICARE, BC, SELFPAY ==
--- NOTE | 2020-09-10 06:45 | NM_ITS ---
APPROVED REPORT Exam: Nuclear Stress Test Indication: Chest pain, SOB, Palpitations, CAD, Hx of UT, HTN, High cholesterol, Tobacco use, Family history Patient Location: Outpatient Stress Tech: Anikacristy Santizo NM Tech:Tammy Chacon, ARRT, RT (R)(N) Ht: 5 ft 4 in Wt: 154 lbs Bra Size: 36C HR: 79 bpm BP: 112/68 mmHg BSA: 1.75 m2 BMI: 26.4 History: Chest pain, SOB, Palpitations, CAD, Hx of UT, HTN, High cholesterol, Tobacco use, Family history Procedure: Patient received a 0.4 mg of intravenous Lexiscan, resting heart rate 79 bpm, resting blood pressure 112/68 mmHg, with Lexiscan maximum heart rate achived was 104 bpm which is % of the maximum predicted heart rate and blood pressure was 102/63 mmHg. Cardiac Stress and Resting SPECT Images: Cardiac Stress and Resting SPECT images were obtained using technetium 99m Myoview 30.9 mCi stress and 10.18 mCi at rest. EF 54% No fixed or reversible defects Conclusion: EF 54% No fixed or reversible defects Electronically signed by : Denilson Junior MD 09/16/2020 13:25:13
--- NOTE | 2020-09-10 06:45 | CA_ITS ---
APPROVED REPORT Exam: Pharmacologic Technologist: Anika Santizo Ht: 5 ft 4 in Wt: 158 lbs BSA: 1.77 m2 HR: 79 bpm BP: 112/68 mmHg Indications: Chest pain Medical History Medications: Aspirin,,,,, Trazadone,,,,, Vitamin D3,,,,, Losartan,,,,, Atorvastatin,,,,, HCTZ,,,,, Nicotine,,,,, Albuterol,,,,, Ibuprofen,,,,, PraZOSIN,,,,, Venlafaxine,,,,, OxYbutynin,,,,, Stress Test Details Test: LEXISCAN Reversal agent Aminophyline 100.0 mg, given intravenously for chest pain. HR Resting HR: 82 bpm Max Heart Rate (APMHR): 158 bpm Max HR Achieved: 105 bpm Target HR (85% APMHR): 134 bpm % of APMHR: 66 Recovery HR: 80 bpm BP Resting BP: 112.0/68.0 mmHg Max BP: 112.0/68.0 mmHg Recovery BP: 105.0/68.0 mmHg ECG Resting ECG: Normal sinus rhythm, ST abnormality Clinical Exercise duration: 04:01 min Highest Stage Achieved: Stress ECG Conclusion Symptoms: Mild shortness of air, chest heaviness relieved after Aminophylline. Arrhythmias/Ectopy: None ST-T Changes: NS ST Changes Conclusion: Unremarkable Lexiscan stress. Myoview images reported separately. Test Summary RECOVERY 02:00 . . 95 . 97/ 58 . . REST 04:33 . . 82 . 112/ 68 . . Stage 1 . . . . . . . Myoview Injected Stage 1 01:00 . . 98 . . . . Stage 2 . . . . . . . chest tightness Stage 2 01:00 . . 104 . 102/ 63 . . Stage 3 01:00 . . 102 . 101/ 57 . . Stage 4 01:00 . . 100 . 107/ 59 . . Stage 4 01:01 . . 100 . 107/ 59 . Stop exercise at 04:01 RECOVERY . . . . . . . chest pressure RECOVERY 01:00 . . 95 . . . . RECOVERY 02:00 . . 95 . 97/ 58 . . RECOVERY 03:00 . . 92 . 97/ 58 . . RECOVERY 04:00 . . 89 . 92/ 62 . . RECOVERY . . . . . . . chest pressure RECOVERY 05:00 . . 85 . 92/ 62 . . RECOVERY 06:00 . . 84 . 105/ 69 . . RECOVERY 07:00 . . 83 . 105/ 68 . . RECOVERY 08:00 . . 78 . 105/ 68 . . RECOVERY 08:53 . . 83 . 105/ 72 . . Electronically signed by : Issac Covington, 09/12/2020 15:15:22
--- NOTE | 2020-09-10 08:44 | HMH.ITSHM ---
Current Home Medications as stated by this patient Maria Isabel Katie Doran or membership sales representative. []ASA MULTIVITAMIN LIPITOR VENAFLAXINE OXYBUTYNIN HYDROCHLOROT REXULTI ARICEPT TRAZODONE QUETIAPINE LYRICA DEXILANT LOSARTAN FIORCET LAMOTRIGINE IBUPROFEN
== END ==
PROVIDERS: PCP Family Medicine; Visit Provider Physician Assistant
DX: R06.02 Shortness of breath (principal); R07.89 Other chest pain; R94.31 Abnormal electrocardiogram [ECG] [EKG]; R42 Dizziness and giddiness; I11.9 Hypertensive heart disease without heart failure; G47.33 Obstructive sleep apnea (adult) (pediatric)
CPT/HCPCS: 78452; 93017; A9502; J0280; J2785

== ENCOUNTER 2020-10-02 10:47 | Outpatient (CLI) | payer MEDICARE, SELFPAY ==
[2020-10-02 11:00] VITALS: BP 137/76; PULSE 77; RESP 18; TEMP 36.2; O2SAT 96
== END 2020-10-02 11:20 | disposition home or self-care (01) ==
LOC: INF 10:48
PROVIDERS: PCP Family Medicine; Visit Provider Nurse Practitioner Obstetrics & Gynecology
DX: M85.89 Other specified disorders of bone density and structure, multiple sites (principal)
CPT/HCPCS: 96372; J0897

== ENCOUNTER → 2020-10-14 12:54 | Outpatient (CLI) | payer MEDICARE, SELFPAY | PROVIDERS: PCP Family Medicine; Visit Provider Urology | DX: R06.02 Shortness of breath (principal) | CPT/HCPCS: 93306 ==

== ENCOUNTER → 2020-10-31 14:31 | Outpatient (CLI) | payer OTHER, SELFPAY ==
--- NOTE | 2020-10-31 14:35 | XR_ITS ---
PROCEDURE: XR THORACIC SPINE 3V CLINICAL INDICATION: Pain in thoracic spine COMPARISON: CR TSP THORACIC SPINE-3V SWIMMERS from 05/18/2017 FINDINGS: Mild lower thoracic scoliosis convex right and lumbar scoliosis convex. No acute fracture or dislocation is evident. There is mild multilevel degenerative disc disease with minimal endplate hypertrophic changes. No lytic or blastic change. IMPRESSION: Thoracolumbar scoliosis with spondylosis. No acute finding Dictated by: Denilson Junior MD 10/31/2020 16:14 Denilson Junior MD in [place] 10/31/2020 16:14
== END ==
PROVIDERS: PCP Family Medicine; Visit Provider Family Medicine
DX: M54.6 Pain in thoracic spine (principal)
CPT/HCPCS: 72072

== ENCOUNTER → 2020-11-19 10:11 | Outpatient (CLI) | payer MEDICARE, SELFPAY ==
--- NOTE | 2020-11-19 10:13 | XR_ITS ---
PROCEDURE: XR DEXA AXIAL SKELETON CLINICAL HISTORY: OSTEOPENIA COMPARISON: CR DEXAAX XR DEXA axial skeleton from 06/20/2018 FINDINGS: The right hip BMD is 0.772 grams/centimeter square with a T-score of -1.4. The left hip BMD is 0.761 grams/centimeters square with a T-score of -1.5. The lumbar spine BMD is 0.987 grams/centimeters square with a T-score of -0.5. The FRAX 10 year fracture risk was calculated as below: Major osteoporotic fracture 18 percent hip fracture 5.4 percent. IMPRESSION: Osteopenia of the bilateral hip joints, causes moderately increased fracture risk. Based on these results a follow-up exam is recommended in 2 year. Dictated by: Moni De Souza 11/20/2020 09:48 Moni De Souza in [facility] 11/20/2020 09:48
== END ==
PROVIDERS: PCP Family Medicine; Visit Provider Family Medicine
DX: M85.89 Other specified disorders of bone density and structure, multiple sites (principal)
CPT/HCPCS: 77080

== ENCOUNTER → 2020-11-26 14:12 | Outpatient (CLI) | payer MEDICARE, SELFPAY | PROVIDERS: PCP Family Medicine; Visit Provider Nurse Practitioner Family | DX: G31.84 Mild cognitive impairment of uncertain or unknown etiology (principal); G47.33 Obstructive sleep apnea (adult) (pediatric); Z72.0 Tobacco use; Z99.81 Dependence on supplemental oxygen | CPT/HCPCS: 94762 ==

== ENCOUNTER → 2020-12-12 13:06 | Outpatient (CLI) | payer MEDICARE, SELFPAY | PROVIDERS: PCP Family Medicine; Visit Provider Nurse Practitioner Family | DX: G47.33 Obstructive sleep apnea (adult) (pediatric) (principal); G47.34 Idiopathic sleep related nonobstructive alveolar hypoventilation | CPT/HCPCS: 94762 ==

== ENCOUNTER → 2021-02-10 14:10 | Outpatient (CLI) | payer MEDICARE, SELFPAY | PROVIDERS: PCP Family Medicine; Visit Provider Nurse Practitioner Family | DX: G47.33 Obstructive sleep apnea (adult) (pediatric) (principal); I51.89 Other ill-defined heart diseases; Z72.0 Tobacco use; Z99.81 Dependence on supplemental oxygen | CPT/HCPCS: 94762 ==

== ENCOUNTER → 2021-02-11 09:58 | Outpatient (CLI) | payer MEDICARE, SELFPAY ==
--- NOTE | 2021-02-11 10:04 | XR_ITS ---
PROCEDURE: XR CHEST 2V CLINICAL HISTORY: Chronic obstructive pulmonary disease with (acute) exacerbat COMPARISON: CR CXR CHEST(2 VIEWS-NOT PORTABLE) from 09/04/2015 CR CXR2V XR chest 2V from 06/28/2018 CR XR CHEST 2V from 07/15/2019 FINDINGS: The cardiomediastinal silhouette and pulmonary vascularity are within normal limits. COPD changes. No lobar consolidation or collapse No acute bony abnormalities. IMPRESSION: COPD. No change with no acute finding Dictated by: Denilson Junior MD 02/11/2021 11:28 Denilson Junior MD in [facility] 02/11/2021 11:28
== END ==
PROVIDERS: PCP Family Medicine; Visit Provider Family Medicine
DX: J44.1 Chronic obstructive pulmonary disease with (acute) exacerbation (principal)
CPT/HCPCS: 71046

== ENCOUNTER 2021-04-07 10:52 | Outpatient (CLI) | payer MEDICARE, SELFPAY ==
[2021-04-07 11:09] VITALS: BP 121/75; PULSE 54; RESP 20; TEMP 36.6; O2SAT 100
== END 2021-04-07 11:09 | disposition home or self-care (01) ==
LOC: INF 10:54
PROVIDERS: PCP Family Medicine; Visit Provider Nurse Practitioner Obstetrics & Gynecology
DX: M85.89 Other specified disorders of bone density and structure, multiple sites (principal)
CPT/HCPCS: 96372; J0897

== ENCOUNTER → 2021-05-09 09:22 | Outpatient (CLI) | payer MEDICARE, SELFPAY ==
--- NOTE | 2021-05-09 09:23 | CA_ITS ---
APPROVED REPORT Hris Coordinator: Court Ramey RVT Laterality: Bilateral Study Quality: Good Indications: Carotid stenosis Risk Factors Hypertension: Hyperlipidemia Smoking Doppler Spectral Velocity Analysis ECA (R) 82.30/18.20 cm/s ECA (L) 80.20/15.00 cm/s dICA (R) 70.60/28.90 cm/s dICA (L) 78.10/25.70 cm/s wSati (R) 86.60/24.60 cm/s Swati (L) 75.90/22.50 cm/s pICA (R) 79.10/23.50 cm/s pICA (L) 56.70/18.20 cm/s dCCA (R) 55.60/11.80 cm/s dCCA (L) 67.40/18.20 cm/s pCCA (R) 98.40/18.20 cm/s pCCA (L) 84.50/17.10 cm/s Vert (R) 36.40/12.80 cm/s Vert (L) 43.80/16.00 cm/s ICA/CCA 1.56 ICA/CCA 1.16 Findings Study suggests 20-49% stenosis of the right internal cartoid artery. Study suggests 20-49% stenosis of the left internal cartoid artery. Antegrade flow seen bilateral vertebral arteries. Conclusion Study suggests 20-49% stenosis of the right internal cartoid artery. Study suggests 20-49% stenosis of the left internal cartoid artery. Antegrade flow seen bilateral vertebral arteries. Electronically signed by : Disha Berger MD 05/09/2021 16:32:30
== END ==
PROVIDERS: PCP Family Medicine; Visit Provider Urology
DX: I65.23 Occlusion and stenosis of bilateral carotid arteries (principal)
CPT/HCPCS: 93880

== ENCOUNTER → 2021-05-15 11:22 | Outpatient (CLI) | payer MEDICARE, SELFPAY ==
[2021-05-15 11:51] LABS: Basophils # 0.1 K/mm3 (0-0.2); Basophils % 1.1 % (0.1-2.0); Eosinophils # 0.2 K/mm3 (0.0-0.4); Eosinophils % 3.1 % (0.1-12.0); Hematocrit 39.5 % (37.0-47.0); Hemoglobin 12.5 g/dL (12.2-16.2); Lymphocytes # 2.6 K/mm3 (0.7-4.5); Lymphocytes % 36.5 % (10-50); Mean Corpuscular HGB Conc 31.5 g/dL (31.8-35.4); Mean Corpuscular Hemoglobin 26.8 pg (27.0-31.2); Mean Corpuscular Volume 84.8 fl (81-99); Mean Platelet Volume 6.7 fl (7.4-10.4); Monocytes # 0.5 K/mm3 (0.1-1.0); Monocytes % 7.5 % (1.7-9.3); Neutrophils # 3.7 K/mm3 (1.8-7.8); Neutrophils % 51.9 % (37.0-80.0); Platelet Count 321 K/mm3 (142-424); Red Blood Count 4.66 M/mm3 (4.20-5.40); Red Cell Distribution Width 18.7 % (11.5-17.5); White Blood Count 7.1 K/mm3 (4.8-10.8)
[2021-05-15 12:37] LABS: Anion Gap 11.4 mEq/L (5-15); Blood Urea Nitrogen 21 mg/dl (7-17); Calcium 9.3 mg/dl (8.4-10.2); Carbon Dioxide 31 mmol/L (22.0-30.0); Chloride 98 mmol/L (98-107); Estimated Glomerular Filt Rate 72 ml/min (>60); GFR (African American) 88 ML/MIN (>60); Glucose 88 mg/dl (74-100); Potassium 4.4 mmoL/L (3.5-5.1); Sodium 136 mmol/L (136-145)
== END ==
PROVIDERS: Visit Provider Urology
DX: E78.2 Mixed hyperlipidemia (principal); I11.9 Hypertensive heart disease without heart failure; I20.8 Other forms of angina pectoris; I65.23 Occlusion and stenosis of bilateral carotid arteries; J44.9 Chronic obstructive pulmonary disease, unspecified; K21.9 Gastro-esophageal reflux disease without esophagitis; R06.02 Shortness of breath; Z72.0 Tobacco use; I63.9 Cerebral infarction, unspecified; Z01.812 Encounter for preprocedural laboratory examination; Z11.52 Encounter for screening for COVID-19
CPT/HCPCS: 36415; 80048; 85025; C9803; U0003; U0005

== ENCOUNTER 2021-05-20 08:43 | Day surgery (SDC) | payer MEDICARE, SELFPAY ==
[2021-05-20] VITALS (12 sets, daily range): BP systolic 105–125; BP diastolic 68–92; PULSE 76–91; RESP 18–20; O2SAT 91–100; BMI 27.8
--- NOTE | 2021-05-20 07:04 | IR_ITS ---
APPROVED REPORT Patient Location: Outpatient Metal Trades Instructor: BRE Mensah RT (R) PROCEDURES Left heart catheterization Left ventriculogram Selective coronary angiogram INDICATION Recalcitrant angina Informed consent was obtained prior to the procedure. COMPLICATIONS NONE Estimated Blood Loss: LESS THAN 10 ML TECHNIQUE One percent lidocaine used to anesthetize the right anterior aspect of the wrist. The right radial artery was accessed via the Seldinger technique. A 6 Khmer sheath was placed in the right radial artery. 2.5 mg of verapamil, 800 mcg of nitroglycerin, 1mg Lidocaine and 5000 U Heparin were given through the arterial sheath. The Poppa catheter was also used to perform left heart catheterization, left ventriculogram and selective coronary angiogram. At the end of the procedure the sheath was removed good hemostasis was achieved using Traclet band, patient was transferred to the postop holding area in stable condition. ANGIOGRAPHIC RESULTS The left main artery Normal The left anterior descending artery Is proximally normal and has a mild mid myocardial bridge compressing to approximately 20 to 30% during systole at rest The circumflex artery Nondominant normal The right coronary artery Dominant normal The FULLER ventriculogram reveals Normal 65% The left ventricular end-diastolic pressure 15 mmHg IMPRESSION No evidence of atherosclerotic disease Mild mid LAD myocardial bridge Normal ejection fraction Borderline elevated LVEDP PLAN 1. Medical management. The myocardial bridge at this point is clinically insignificant Electronically signed by : Issac Covington MD 05/20/2021 11:45:36
[2021-05-20 09:24] LABS: Coronavirus 19, PCR Not Detected (NotDetected); Influenza A, PCR Not Detected (NotDetected); Influenza B, PCR Not Detected (NotDetected)
== END 2021-05-20 15:11 | disposition home or self-care (01) ==
LOC: CATHLAB 08:46
PROVIDERS: PCP Family Medicine; Visit Provider Internal Medicine
DX: E78.2 Mixed hyperlipidemia (principal); G47.33 Obstructive sleep apnea (adult) (pediatric); I11.9 Hypertensive heart disease without heart failure; I65.23 Occlusion and stenosis of bilateral carotid arteries; J44.9 Chronic obstructive pulmonary disease, unspecified; K21.9 Gastro-esophageal reflux disease without esophagitis; R06.02 Shortness of breath; I25.118 Atherosclerotic heart disease of native coronary artery with other forms of angina pectoris; F17.210 Nicotine dependence, cigarettes, uncomplicated; Z79.899 Other long term (current) drug therapy; Z99.81 Dependence on supplemental oxygen; I48.91 Unspecified atrial fibrillation; Z20.822 Contact with and (suspected) exposure to COVID-19
CPT/HCPCS: 93458; 99152; C1725; C1769; C9803; J1644; Q9967; U0003; U0005

== ENCOUNTER → 2021-05-23 07:45 | Outpatient (CLI) | payer MEDICARE, SELFPAY ==
--- NOTE | 2021-05-23 07:45 | CT_ITS ---
PROCEDURE: CT LUNG SCREENING CLINICAL INDICATION: lung cancer screening COMPARISON: CT CT LUNG SCREENING from 05/17/2020 TECHNIQUE: The exam was performed on a GE Light Speed [address] scanner using 2.90 mGy CTDI. A low dose helical CT CHEST was performed on a multi-detector scanner. All CT scans at the facility use one or more dose reduction, viz: automated exposure control, ma/kV adjustment per patient size (including targeted exams where dose is matched to indication, i.e. head), or iterative reconstruction technique. The LDCT was performed in a facility that meets the criteria for the screening program. Data regarding this exam was submitted to ACR which is an approved registry. The order for this exam indicates that it came as a result of a lung cancer screening counseling shard decision-making visit that included all the elements required of such a visit including smoking cessation. The radiologist interpreting this exam meets the CMS criteria for the LDCT lung cancer screening program. The exam is reported using the Lung-RADS classification scale and reported to the ACR registry. NOTE: This study was performed for the specific purposes of lung cancer screening and is not an alternative to diagnostic chest CT. RADIATION DOSE: CTDI vol(CT dose Index-volume) = 2.90mG DLP (Dose Length Product) = 99.77 mGcm FINDINGS: COPD changes. There are scattered small bilateral pulmonary nodular opacities at 2-3 mm. Some of these are new compared to the previous exam. There are at least 4 new nodules in the right upper lobe, 3 new nodules in the left upper lobe, and 1 new nodule in the left lower lobe. These are marked with arrows on the images. No effusions or infiltrates. No mediastinal or hilar adenopathy.. OTHER FINDINGS: Coronary artery calcifications. IMPRESSION: Lung-RADS Category 4A Suspicious regarding multiple new small nodules. These may be inflammatory/infectious. Neoplastic process such as metastatic disease not excluded. Follow-up: [address] without contrast suggested Dictated by: Denilson Junior MD 05/31/2021 07:21 Denilson Junior MD in [facility] 05/31/2021 07:21
== END ==
PROVIDERS: PCP Family Medicine; Visit Provider Internal Medicine Pulmonary Disease
DX: Z87.891 Personal history of nicotine dependence (principal); Z12.2 Encounter for screening for malignant neoplasm of respiratory organs
CPT/HCPCS: 71271

== ENCOUNTER → 2021-06-26 14:06 | Outpatient (CLI) | payer MEDICARE, SELFPAY ==
--- NOTE | 2021-06-26 14:11 | XR_ITS ---
PROCEDURE: XR CHEST 2V CLINICAL HISTORY: SOB COMPARISON: CR CXR2V XR chest 2V from 06/28/2018 CR XR CHEST 2V from 07/15/2019 CR XR CHEST 2V from 02/11/2021 FINDINGS: The cardiomediastinal silhouette and pulmonary vascularity are within normal limits. The lungs are clear without infiltrates, suspicious nodules, or pleural effusions. There is some increased density over the right mid lower lung zone felt be related overlying soft tissue attenuation. Patient's right arm is down by either side. No acute bony abnormalities. Thoracolumbar scoliosis convex left. Degenerative changes thoracic spine. IMPRESSION: No acute findings. Dictated by: Denilson Junior MD 06/26/2021 16:05 Denilson Junior MD in [facility] 06/26/2021 16:05
[2021-06-26 14:27] LABS: Adenovirus,PCR Not Detected (NotDetected); Bordetella Pertussis Not Detected (NotDetected); Chlamydophila Pneumoniae, PCR Not Detected (NotDetected); Coronavirus 19, PCR Not Detected (NotDetected); Coronavirus 229E Not Detected (NotDetected); Coronavirus NL63 Not Detected (NotDetected); Coronovirus HKU1,PCR Not Detected (NotDetected); Human Metapneumovirus Not Detected (NotDetected); Influenza A, PCR Not Detected (NotDetected); Influenza AH1, 2009 Not Detected (NotDetected); Influenza AH1, PCR Not Detected (NotDetected); Influenza AH3,PCR Not Detected (NotDetected); Influenza B, PCR Not Detected (NotDetected); Mycoplasma Pneumoniae, PCR Not Detected (NotDetected); Parainfluenza 1, PCR Not Detected (NotDetected); Parainfluenza 2, PCR Not Detected (NotDetected); Parainfluenza 3, PCR Not Detected (NotDetected); Parainfluenza 4, PCR Not Detected (NotDetected); Respiratory Syncytial Virus Not Detected (NotDetected); Rhinovirus/Enterovirus Not Detected (NotDetected)
[2021-06-26 17:58] LABS: Coronavirus OC43 Detected (NotDetected)
== END ==
PROVIDERS: PCP Family Medicine; Visit Provider Internal Medicine Pulmonary Disease
DX: R05.8 Other specified cough (principal); R06.02 Shortness of breath; U07.1 COVID-19; R06.2 Wheezing; J44.1 Chronic obstructive pulmonary disease with (acute) exacerbation; Z72.0 Tobacco use
CPT/HCPCS: 71046; 87581; 87632; 87798; C9803; U0003; U0005

== ENCOUNTER → 2021-07-18 10:39 | Outpatient (CLI) | payer MEDICARE, SELFPAY ==
--- NOTE | 2021-07-18 10:39 | MM_ITS ---
PROCEDURE INFORMATION: Exam: MG Bilateral Screening 3D Mammography Exam date and time: 07/18/2021 10:39 AM Age: 65 years old Clinical indication: Encounter for screening mammogram for malignant neoplasm of breast TECHNIQUE: Imaging protocol: Bilateral screening tomosynthesis and 2D mammography including computer-aided detection (CAD) when performed. COMPARISON: 1. MG MM DIG SCREENING MAMM BI W/CAD 05/28/2020 1:05 PM 2. MG MM DIG SCREENING MAMM BI W/CAD 05/11/2019 10:36 AM FINDINGS: MAMMOGRAPHY: Breast composition: The breast tissue is composed of scattered areas of fibroglandular density. Mass: None. Architectural distortion: None. Calcifications: No suspicious calcifications. Asymmetric density: None. Skin thickening: None. Axillary adenopathy: None. IMPRESSION: No mammographic evidence of malignancy. Annual screening is recommended unless otherwise clinically indicated. ASSESSMENT: BI-RADS Category 1: Negative
== END ==
PROVIDERS: PCP Family Medicine; Visit Provider Nurse Practitioner Obstetrics & Gynecology
DX: Z12.31 Encounter for screening mammogram for malignant neoplasm of breast (principal)
CPT/HCPCS: 77063; 77067

== ENCOUNTER → 2021-08-25 15:12 | Outpatient (CLI) | payer MEDICARE, SELFPAY ==
--- NOTE | 2021-08-25 15:12 | CT_ITS ---
FINAL REPORT TECHNIQUE: Axial images were obtained from the lung apex to the mid abdomen by computed tomography. Coronal reformatted images were obtained. This study was performed with techniques to keep radiation doses as low as reasonably achievable, (ALARA). Individualized dose reduction techniques using automated exposure control or adjustment of mA and/or kV according to the patient''s size were employed. CLINICAL HISTORY: 3-month follow-up lung nodule COMPARISON: May 23, 2021; May 17, 2020 FINDINGS: There is no axillary adenopathy. There is no hilar or mediastinal adenopathy. Heart size is normal. There is no pericardial or pleural effusion. On the prior exam or multiple less than 5 mm pulmonary nodules. Some of those are stable wall others are not well visualized of uncertain significance. This could be due to slice Jackelyn a powers. There is a new 4 mm nodule in the right upper lobe posteriorly on image 24. There are mild changes of emphysema with mild scarring. There is no other new pulmonary nodule. Images through the upper abdomen demonstrate mild gallbladder wall thickening. There is bilateral adrenal gland enlargement favoring adenomas. IMPRESSION: New 4 mm right upper lobe nodule. Recommend six-month follow-up. Previously seen new nodules are stable or not well visualized. Reviewed, Interpreted and Dictated by Lico Winter III, MD Transcribed by Ace Nuñez Authenticated by Lico Winter III, MD on 08/25/2021 04:36:24 PM [facility]
== END ==
PROVIDERS: PCP Family Medicine; Visit Provider Internal Medicine Pulmonary Disease
DX: R91.8 Other nonspecific abnormal finding of lung field (principal)
CPT/HCPCS: 71250

== ENCOUNTER 2021-10-06 09:49 | Outpatient (CLI) | payer MEDICARE, SELFPAY ==
[2021-10-06 10:15] VITALS: BP 129/88; PULSE 85; RESP 18; TEMP 36.1; O2SAT 97
== END 2021-10-06 10:15 | disposition home or self-care (01) ==
LOC: INF 09:50
PROVIDERS: PCP Family Medicine; Visit Provider Nurse Practitioner Obstetrics & Gynecology
DX: M85.89 Other specified disorders of bone density and structure, multiple sites (principal)
CPT/HCPCS: 96372; J0897

== ENCOUNTER → 2021-11-28 10:32 | Outpatient (CLI) | payer MEDICARE, SELFPAY ==
[2021-11-28 11:01] LABS: Basophils # 0.1 K/mm3 (0-0.2); Basophils % 1.1 % (0.1-2.0); Eosinophils # 0.2 K/mm3 (0.0-0.4); Eosinophils % 2.9 % (0.1-12.0); Hematocrit 37.7 % (37.0-47.0); Hemoglobin 12.1 g/dL (12.2-16.2); Lymphocytes # 1.7 K/mm3 (0.7-4.5); Lymphocytes % 26.8 % (10-50); Mean Corpuscular HGB Conc 32.1 g/dL (31.8-35.4); Mean Corpuscular Hemoglobin 23.9 pg (27.0-31.2); Mean Corpuscular Volume 74.3 fl (81-99); Monocytes # 0.4 K/mm3 (0.1-1.0); Monocytes % 6.1 % (1.7-9.3); Neutrophils # 4.1 K/mm3 (1.8-7.8); Neutrophils % 63.1 % (37.0-80.0); Platelet Count 300 K/mm3 (142-424); Red Blood Count 5.08 M/mm3 (4.20-5.40); Red Cell Distribution Width 17.6 % (11.5-17.5); White Blood Count 6.5 K/mm3 (4.8-10.8)
[2021-11-28 11:24] LABS: Chloride 104 mmol/L (98-107); Potassium 4.7 mmoL/L (3.5-5.1); Sodium 139 mmol/L (136-145)
[2021-11-28 11:26] LABS: Bilirubin,Unconjugated 0.1 mg/dL (0.0-1.1); Blood Urea Nitrogen 17 mg/dl (7-17); Estimated Glomerular Filt Rate 56 ml/min (>60); GFR (African American) 68 ML/MIN (>60)
[2021-11-28 11:27] LABS: Alanine Aminotransferase 17 U/L (12-78); Albumin Level 3.7 g/dl (3.5-5.0); Alkaline Phosphatase 93 U/L (38-126); Anion Gap 10.7 mEq/L (5-15); Aspartate Amino Transferase 24 U/L (14-36); Bilirubin,Direct 0.2 mg/dl (0.0-0.4); Bilirubin,Indirect 0.1 mg/dL (0.0-0.9); Bilirubin,Total 0.3 mg/dl (0.2-1.3); Calcium 9.3 mg/dl (8.4-10.2); Carbon Dioxide 29 mmol/L (22.0-30.0); Cholesterol 198 mg/dl (140-200); Glucose 105 mg/dl (74-100); Magnesium 1.7 mg/dl (1.6-2.3); Total Protein,Serum 6.2 g/dl (6.3-8.2); Triglycerides 105 mg/dl (30-150); VLDL Cholesterol 21 mg/dL (0-40)
[2021-11-28 11:28] LABS: Chol/HDL Ratio 3.3 (1-3.5); HDL Cholesterol 60 mg/dl (40-60)
[2021-11-28 11:38] LABS: Direct LDL Cholesterol 98.24 mg/dL (100-129)
[2021-11-28 11:44] LABS: Free T4 (Free Thyroxine) 0.95 ng/dl (0.78-2.19)
[2021-11-28 11:58] LABS: Thyroid Stimulating Hormone 1.51 uIU/mL (0.465-4.68)
== END ==
PROVIDERS: Visit Provider Physician Assistant
DX: E78.2 Mixed hyperlipidemia (principal); I11.9 Hypertensive heart disease without heart failure; I25.10 Atherosclerotic heart disease of native coronary artery without angina pectoris; I65.23 Occlusion and stenosis of bilateral carotid arteries; R06.02 Shortness of breath; Z72.0 Tobacco use
CPT/HCPCS: 36415; 80048; 80061; 80076; 83735; 84439; 84443; 85025

== ENCOUNTER → 2021-12-16 07:43 | Outpatient (CLI) | payer MEDICARE, SELFPAY ==
[2021-12-16 08:23] VITALS: PULSE 88; PULSE 90
== END ==
PROVIDERS: PCP Family Medicine; Visit Provider Internal Medicine Pulmonary Disease
DX: R06.09 Other forms of dyspnea (principal)
CPT/HCPCS: 94060; 94640

== ENCOUNTER 2022-01-09 13:01 | Emergency (ER) | payer MEDICARE, SELFPAY ==
[2022-01-09 13:02] VITALS: BP 163/90; PULSE 84; RESP 24; TEMP 36.9; O2SAT 97; BMI 24.0
--- NOTE | 2022-01-09 13:18 | HMH.EDGENADL ---
ED Disposition Clinical Impression: Confused, COVID-19 Disposition: Home, Self-Care Condition on Discharge: Fair Instructions: DI for COVID-19 (Suspected or Confirmed ) Additional Instructions: Follow-up with your primary care doctor in approximately 1 week even if you feel better. It appears that you may be having a gastrointestinal bleed. You will need a colonoscopy or endoscopy for this. It is important that you do this even if your symptoms resolve. Continue all medications as prescribed. Return to the emergency department immediately if you feel worse in any way. Referrals: Saul Benitez MD [Primary Care Provider] - - Critical Care Critical Care Time: No Attestation: On 01/09/22, the high probability of a clinically significant, sudden or life threatening deterioration of the following system(s) required my full and direct attention, intervention and personal management. The time I documented below is in addition to time spent performing reported procedures but includes the following listed in this critical care notation. Medical Decision Making - Medical Records Medical records reviewed: Yes: I reviewed the patient's medical records. - Michael Inquiry Pt receiving controlled substance: No Vital Signs: 01/09/22 13:02 01/09/22 13:45 01/09/22 14:35 Temperature 98.4 F Temperature Source Oral Pulse Rate 100 H 94 H Pulse Rate [Radial] 84 Respiratory Rate 24 Blood Pressure 152/91 H Blood Pressure [Right Arm] 163/90 H Blood Pressure Mean 111 Blood Pressure Mean [Right Arm] 114 Blood Pressure Source Automatic Cuff Blood Pressure Position Sitting Blood Pressure Position [Right Arm] Sitting 02 Sat by Pulse Oximetry 97 92 L 94 L Oxygen Delivery Method Room Air Nasal Cannula Oxygen Flow Rate (LPM) 2 2 01/09/22 14:49 Temperature Temperature Source Pulse Rate 82 Pulse Rate [Radial] Respiratory Rate Blood Pressure 152/91 H Blood Pressure [Right Arm] Blood Pressure Mean Blood Pressure Mean [Right Arm] Blood Pressure Source Blood Pressure Position Sitting Blood Pressure Position [Right Arm] 02 Sat by Pulse Oximetry 99 Oxygen Delivery Method Nasal Cannula Oxygen Flow Rate (LPM) 2 - Lab Data Lab Results 01/09/22 13:23: Specimen Source Right radial, O2 % 2l nc, ABG pH 7.46 H, ABG pCO2 37.3, ABG pO2 168.6 H, ABG HCO3 25.9, ABG Total CO2 27.0, ABG O2 Saturation 99, ABG Base Excess 2.0, Denilson Test Acceptable 01/09/22 13:30: WBC 8.7, RBC 5.98 H, Hgb 13.5, Hct 43.6, MCV 72.9 L, MCH 22.7 L, MCHC 31.1 L, RDW 20.9 H, Plt Count 452 H, MPV 7.3 L, Neut % (Auto) 85.9 H, Lymph % (Auto) 9.0 L, [place] % (Auto) 3.8, Eos % (Auto) 0.2, Baso % (Auto) 1.1, Neut # (Auto) 7.4, Lymph # (Auto) 0.8, [place] # (Auto) 0.3, Eos # (Auto) 0.0, Baso # (Auto) 0.1, Total Counted 100, Neutrophils % (Manual) 88 H, Lymphocytes % (Manual) 9 L, Monocytes % (Manual) 3, Platelet Estimate Normal, Microcytosis 1+ 01/09/22 13:30: Sodium 139, Potassium 3.7, Chloride 103, Carbon Dioxide 29, Anion Gap 10.7, BUN 23 H, Creatinine 0.80, Estimated Creat Clear 57, Estimated GFR 72, Est GFR ( Amer) 87, Glucose 126 H, Calcium 9.4, Total Bilirubin 0.6, AST 35, ALT 21, Alkaline Phosphatase 137 H, Total Protein 7.8 D, Albumin 4.3, Globulin 3.5 H, Albumin/Globulin Ratio 1.2 01/09/22 15:18: Urine Color Yellow, Urine Appearance Clear, Urine pH 6.0, Ur Specific [place] 1.025, Urine Protein 1+, Urine Glucose (UA) Negative, Urine Ketones 1+, Urine Blood Negative, Urine Nitrate Negative, Urine Bilirubin Negative, Urine Urobilinogen 1.0, Ur Leukocyte Esterase Negative Result diagrams: 01/09/22 13:30 01/09/22 13:30 Orders (Tests/Meds): ED MEDICATIONS Discontinued Medications Generic Name Dose Route Start Last Admin Trade Name Freq PRN Reason Stop Dose Admin Albuterol/Ipratropium 3 ml 01/09/22 13:23 01/09/22 13:45 Ipratropium/Albuterol 3 Ml Neb IH 01/09/22 13:24 3 ml ONCE ONE Administration ORDERS
--- NOTE | 2022-01-09 13:20 | XR_ITS ---
FINAL REPORT CLINICAL HISTORY: wheezing and confusion, pt states she was diagnosed with COVID Wednesday COMPARISON: June 26, 2021 FINDINGS: A single portable view of the chest was obtained. The heart size and pulmonary vascularity are within normal limits. The mediastinum is within normal limits. No acute pulmonary abnormality is identified. The bony thorax is intact. IMPRESSION: No active cardiopulmonary disease. Reviewed, Interpreted and Dictated by Lico Winter III, MD Transcribed by Zita Goodman Authenticated and [facility]
--- NOTE | 2022-01-09 13:20 | ECG_ITS ---
APPROVED REPORT Exam: Resting ECG HR:86 bpm ECG Measurements Heart Rate 86 AXES DE 142 P 61 QRSd 82 QRS -16 QT 341 T 48 QTc 385 Conclusion SINUS RHYTHM WITH OCCASIONAL VENTRICULAR PREMATURE COMPLEXES POSSIBLE LEFT ATRIAL ENLARGEMENT [-0.1mV P-WAVE IN V1/V2] MINIMAL ST DEPRESSION [0.025+ mV ST DEPRESSION] BORDERLINE ECG UNCONFIRMED REPORT Electronically signed by : Jesus June MD 01/09/2022 16:58:02
--- NOTE | 2022-01-09 13:21 | CT_ITS ---
FINAL REPORT CLINICAL HISTORY: Confusion, pt states she was diagnosed with COVID Wednesday FINDINGS: Axial images of the head were obtained without contrast. Coronal reformatted images were also obtained. This study was performed with techniques to keep radiation doses as low as reasonably achievable (ALARA). Individualized dose reduction techniques using automated exposure control or adjustment of mA and/or kV according to the patient's size were employed. There is generalized age-appropriate atrophy. Periventricular low-attenuation areas are seen consistent with mild chronic ischemic changes. There is no evidence of intracranial hemorrhage or mass. There is no evidence of acute infarct. There is no evidence of shift of the midline structures. No skull abnormality is seen on the bone window images. IMPRESSION: Atrophy and mild periventricular chronic ischemic changes. No acute intracranial abnormality identified. Reviewed, Interpreted and Dictated by Lico Winter III, MD Transcribed by Zita Goodman Authenticated and . [facility]
[2022-01-09 13:44] LABS: Chloride 103 mmol/L (98-107); Potassium 3.7 mmoL/L (3.5-5.1); Sodium 139 mmol/L (136-145)
[2022-01-09 13:45] VITALS: PULSE 100; PULSE 102; O2SAT 92
[2022-01-09 13:47] LABS: Alanine Aminotransferase 21 U/L (12-78); Albumin Level 4.3 g/dl (3.5-5.0); Albumin/Globulin Ratio 1.2 (1.1-1.8); Alkaline Phosphatase 137 U/L (38-126); Anion Gap 10.7 mEq/L (5-15); Aspartate Amino Transferase 35 U/L (14-36); Bilirubin,Total 0.6 mg/dl (0.2-1.3); Blood Urea Nitrogen 23 mg/dl (7-17); Calcium 9.4 mg/dl (8.4-10.2); Carbon Dioxide 29 mmol/L (22.0-30.0); Creatinine Clearance Estimated 57 mL/min (50-200); Estimated Glomerular Filt Rate 72 ml/min (>60); GFR (African American) 87 ML/MIN (>60); Globulin 3.5 g/dL (1.3-3.2); Glucose 126 mg/dl (74-100); Total Protein,Serum 7.8 g/dl (6.3-8.2)
[2022-01-09 13:54] LABS: ABG HCO3 25.9 mmhg (22.0-26.0); ABG Oxygen Saturation 99 % (90-100); ABG PCO2 37.3 mmhg (35.0-45.0); ABG PH 7.46 mmol/L (7.35-7.45); ABG PO2 168.6 mmhg (80-100)
[2022-01-09 13:56] LABS: Oxygen 2L NC %
[2022-01-09 13:57] LABS: Allen's Test Acceptable; Source Right Radial
[2022-01-09 14:02] LABS: Basophils # 0.1 K/mm3 (0-0.2); Basophils % 1.1 % (0.1-2.0); Eosinophils % 0.2 % (0.1-12.0); Hematocrit 43.6 % (37.0-47.0); Hemoglobin 13.5 g/dL (12.2-16.2); Lymphocytes # 0.8 K/mm3 (0.7-4.5); Mean Corpuscular HGB Conc 31.1 g/dL (31.8-35.4); Mean Corpuscular Hemoglobin 22.7 pg (27.0-31.2); Mean Corpuscular Volume 72.9 fl (81-99); Mean Platelet Volume 7.3 fl (7.4-10.4); Monocytes # 0.3 K/mm3 (0.1-1.0); Monocytes % 3.8 % (1.7-9.3); Neutrophils # 7.4 K/mm3 (1.8-7.8); Neutrophils % 85.9 % (37.0-80.0); Platelet Count 452 K/mm3 (142-424); Red Blood Count 5.98 M/mm3 (4.20-5.40); Red Cell Distribution Width 20.9 % (11.5-17.5); White Blood Count 8.7 K/mm3 (4.8-10.8)
[2022-01-09 14:07] LABS: MANUAL DIFFERENTIAL MANUAL DIFFERENTIAL (MANUAL DIFF)
[2022-01-09 14:34] LABS: Lymphocytes % 9 % (10-50); Monocytes % 3 % (2-9); Neutrophils % 88 % (42-76); Total Cells Counted 100
[2022-01-09 14:35] VITALS: BP 152/91; PULSE 94; O2SAT 94
[2022-01-09 14:35] LABS: Microcytosis 1+
[2022-01-09 14:38] LABS: Platelet Estimate Normal
--- NOTE | 2022-01-09 14:44 | PC.NURSE ---
checked on pt at this time, pt sitting up in bed, significant other at BS, states no needs at this time. will continue to monitor
[2022-01-09 14:49] VITALS: BP 152/91; PULSE 82; O2SAT 99
--- NOTE | 2022-01-09 15:06 | PC.NURSE ---
pt and family updated on plan of care
--- NOTE | 2022-01-09 15:10 | PC.NURSE ---
pt to restroom via wheelchair with assistance by West, SRNA
[2022-01-09 15:23] LABS: Microscopic, Urine URINE MICROSCOPIC (MICROSCOPIC)
[2022-01-09 15:27] LABS: Appearance,Urine CLEAR (Clear); Blood, Urine Negative (Negative); Color,Urine YELLOW (Yellow); Glucose,Urine (UA) Negative (Negative); Ketones,Urine 1+ (Negative); Leukocyte Esterase,Urine Negative (Negative); Nitrate,Urine Negative (Negative); Protein,Urine 1+ (Negative); Specific Gravity, Urine 1.025 (1.005-1.030)
[2022-01-09 15:35] LABS: Bilirubin,Urine Negative (Negative)
--- NOTE | 2022-01-09 15:36 | PC.NURSE ---
at bedside. pt offers no new c/o at present
[2022-01-09 16:04] VITALS: BP 147/89; PULSE 84; RESP 18; TEMP 36.7; O2SAT 95
[2022-01-09 16:11] LABS: Squamous Epithelial Cell,Urine Occasional #/hpf (0-5)
== END 2022-01-09 16:05 | disposition home or self-care (01) ==
PROVIDERS: Emergency Provider Emergency Medicine; PCP Family Medicine
DX: U07.1 COVID-19 (principal); R41.0 Disorientation, unspecified; K62.5 Hemorrhage of anus and rectum; Z99.81 Dependence on supplemental oxygen; J44.9 Chronic obstructive pulmonary disease, unspecified; I10 Essential (primary) hypertension; I48.91 Unspecified atrial fibrillation; Z79.01 Long term (current) use of anticoagulants; Z86.718 Personal history of other venous thrombosis and embolism
CPT/HCPCS: 70450; 71045; 80053; 81001; 82803; 85007; 85025; 93005; 99285

== ENCOUNTER → 2022-03-19 12:46 | Outpatient (CLI) | payer MEDICARE, SELFPAY ==
--- NOTE | 2022-03-19 13:12 | CT_ITS ---
FINAL REPORT TECHNIQUE: Axial imaging of the chest was obtained without contrast. Reformatted images were also obtained and reviewed.This study was performed with techniques to keep radiation doses as low as reasonably achievable, (ALARA). Individualized dose reduction technique using automated exposure control or adjustment of mA and/or kV according to the patient's size were employed. CLINICAL HISTORY: 6 month F/U COMPARISON: 08/25/2021 FINDINGS: There is no axillary adenopathy. There is no hilar or mediastinal mass or adenopathy. Heart size is normal. There is no pericardial or pleural effusion. Limited images of the upper abdomen are unremarkable. There is mild emphysema. Interval improvement is seen in the posterior right upper lobe nodule now measuring 3 mm, previously measuring 4 mm. Other, scattered, small nodules are unchanged from prior exam. No new mass or nodule is seen. IMPRESSION: Interval improvement in right upper lobe nodule. Reviewed, Interpreted and Dictated by Lico Winter III, MD Transcribed by Minerva Gates Authenticated and [facility]
== END ==
PROVIDERS: PCP Family Medicine; Visit Provider Internal Medicine Pulmonary Disease
DX: J44.9 Chronic obstructive pulmonary disease, unspecified (principal); R91.8 Other nonspecific abnormal finding of lung field
CPT/HCPCS: 71250; 94010

== ENCOUNTER → 2022-03-23 13:05 | Outpatient (POV) | payer MEDICARE, SELFPAY ==
[2022-03-23 13:27] VITALS: BP 166/103; PULSE 97; RESP 18; TEMP 36.6; O2SAT 94; BMI 35.0
--- NOTE | 2022-03-23 13:35 | EXP.PAIN.OV ---
HPI Data of Consult Patient: new to practice Consult date: 03/23/22 Requesting Physician: Latasha Martínez APRN Primary Care Provider: Saul Benitez MD Consult Narrative Reason for consult: Low back pain History of present illness: Ms. Doran is a 66 year old female who presents today as a new patient. She is a referral from Dr. Benitez's office. Patient states she has 8 out of 10 pain today in her low back on the right side. Patient denies any new trauma or injury to the site. She states this has been going on for the last year to a year and a half. She describes this as a aching throbbing sensation that is worse with increased activity. She states that she does get some improvement when she is sitting or is able to rest. Patient has tried [id number] ibuprofen however this did not provide significant improvement of her symptoms. Patient is also tried ice and heat with some improvement. Patient did initially go to her primary care provider who gave her 2 IM steroid injections and diclofenac cream however these interventions did not help. Patient denies any radiating symptoms. Patient is currently managed with pregabalin 225 mg twice a day by Dr. Benitez. Patient denies any side effects from this medication. She states this medication does adequately help her pain. Her Michael is [phone]. It has been reviewed and appropriate. CC: Latasha Martínez APRN [facility] Medical History Allergic rhinitis, unspecified Atypical angina Carotid artery stenosis Chronic hypoxemic respiratory failure Chronic obstructive pulmonary disease with acute respiratory distress Coronary arteriosclerosis Diastolic dysfunction Dyspnea on exertion History of 2019 novel coronavirus disease (COVID-19) History of smoking 30 or more pack years HTN (hypertension) Hyperlipidemia Hypertensive heart disease without heart failure Hypotension Lung nodule Respiratory symptoms Smoking greater than 30 pack years Surgical History (Updated 03/23/22 @ 13:36 by Julia Banegas RN) History of bladder suspension procedure Hx of appendectomy Hx of tubal ligation Family History (Updated 03/19/22 @ 09:51 by RT Hailey) Other Asthma Cancer Coronary artery disease Diabetes Heart attack Hyperlipidemia Hypertension Thyroid disorder Social History (Updated 03/19/22 @ 13:39 by June Bruno) Smoking Status: Former smoker alcohol intake: never counseling provided: none substance use type: denies use current occupational status: retired Travel in the last 8 weeks: Inside the [place] household members: spouse housing: house caffeine: Yes Review of Systems Review of Systems Review of systems:: pertinent systems reviewed and negative unless documented below Review of systems (narrative): Review of Systems: General: No recent weight changes, no fever, no sleep disturbances Respiratory: No cough, no shortness of air, no recurring pulmonary infections Cardiovascular/peripheral vascular: No chest pain, no palpitations, no edema, no shortness of breath Gastrointestinal: No new onset incontinence, normal bowel movements reported Genitourinary: No new onset incontinence Musculoskeletal: Low back pain on the right side Psychiatric: [Normal mood/affect] Neurological: [Denies weakness in extremities], [denies balance issues] Meds Home Medications and Allergies Home Medications Medication Instructions Recorded Confirmed Type atorvastatin 80 mg tablet (Lipitor) 80 mg PO DAILY Cholesterol 11/22/17 03/23/22 History multivitamin 1 tab PO QAM Supplement 11/22/17 03/23/22 History cholecalciferol (vitamin D3) 25 1,000 unit PO BID Supplement 06/07/18 03/23/22 History mcg (1,000 unit) capsule aspirin 81 mg tablet,delayed 81 mg PO DAILY Heart disease 03/28/19 03/23/22 History release ipratropium bromide 42 mcg (0.06 2 sprays inhalation DAILY COPD 10/03/19 03/23/22 History %) nasal spray trazodone
== END ==
PROVIDERS: PCP Family Medicine; Visit Provider Nurse Practitioner Family
DX: M46.1 Sacroiliitis, not elsewhere classified (principal); M54.50 Low back pain, unspecified
CPT/HCPCS: 99202; G0463

== ENCOUNTER 2022-04-03 10:58 | Day surgery (SDC) | payer MEDICARE, SELFPAY ==
[2022-04-03 11:14] VITALS: BP 145/91; PULSE 98; RESP 20; TEMP 36.6; O2SAT 98; BMI 35.0
[2022-04-03 11:38] VITALS: BP 167/101; PULSE 81; RESP 18; O2SAT 97
[2022-04-03 11:39] VITALS: BP 167/101; PULSE 85; RESP 18; O2SAT 97
--- NOTE | 2022-04-03 11:42 | EXP.PAIN.PRO ---
Procedure Date: 04/03/22 Time: 11:43 Anesthesiologist:: John Paul Viramontes MD Complications:: None Pre-procedure Diagnosis:: Sacroiliitis Post-procedure Diagnosis:: Sacroiliitis Indications for Procedure:: Patient is a pleasant 66-year-old white female who we are treating for right-sided hip pain. She is tender over the right SI joint. She is positive Gildardo's test on the right side. She is positive Holstein's test on the right side. She is positive SI joint compression test on the right side. She presents for right SI joint injection under fluoroscopy today to help with her pain symptoms. Procedure Details:: Right SI joint injection under fluoroscopy Informed consent was obtained and the risks and benefits of the procedure was going to the patient. Patient was taken to the procedure room. Patient was placed prone on the procedure table. The right hip was prepped using ChloraPrep. The skin and subcutaneous tissues were anesthetized using lidocaine. I placed a 22-gauge spinal needle into the inferior aspect of the right SI joint. Needle placement was confirmed with dye. After this we injected 5 mL bupivacaine 0.25% and Depo-Medrol 40 mg into the right SI joint. The patient tolerated the procedure well with no complication. Plan and Disposition:: We will follow-up with her in 2 weeks. Will reevaluate her symptoms at that time.
[2022-04-03 11:46] VITALS: BP 153/95; PULSE 98; RESP 18; O2SAT 94
--- NOTE | 2022-04-03 11:49 | P.PCN_ITS ---
Procedure Date: 04/03/22 Time: 11:49 Anesthesiologist:: John Paul Viramontes MD Complications:: None Pre-procedure Diagnosis:: Right-sided piriformis syndrome/sciatica. Right trochanteric bursitis. Post-procedure Diagnosis:: Same Indications for Procedure:: Patient is a pleasant 61-year-old white female who we are treating for right- sided hip pain. She does have right-sided sciatica and piriformis syndrome radiating down her right leg. She also has tenderness over the right trochanteric bursa. We will do a right trochanteric bursa injection and right sciatic nerve block/piriformis muscle injection today. Procedure Details:: Right trochanteric bursa injection under fluoroscopy informed consent was obtained and the risk and benefits of the procedure was explained to the patient. The patient was taken to the procedure room. The right hip was prepped using ChloraPrep. The skin and subcutaneous tissues were anesthetized using lidocaine. I placed a 22-gauge spinal needle and advanced under fluoroscopic guidance until it contacted the right greater trochanter. Needle placement was confirmed with dye. After this I injected bupivacaine 0.25% 5 mL and Depo-Medrol 40 mg into the right trochanteric bursa. Patient tolerated the procedure well with no complications. Right-sided nerve block/piriformis muscle injection Form consent was obtained risk and benefits of the procedure were explained to the patient. Patient was taken the procedure room. The right buttock was prepped using ChloraPrep. A 25-gauge needle was used in the area of the right piriformis muscle and sciatic nerve. We injected 10 mL bupivacaine 0.25% and D epo-Medrol 40 mg into this area. Patient tolerated procedure well no complications. Plan and Disposition:: We will follow-up with this patient 2 weeks. Will reevaluate symptoms at that time.
== END 2022-04-03 11:47 | disposition home or self-care (01) ==
PROVIDERS: PCP Family Medicine; Visit Provider Anesthesiology
DX: M46.1 Sacroiliitis, not elsewhere classified (principal)
CPT/HCPCS: 27096; G0260; J1040; Q9966

== ENCOUNTER 2022-04-10 09:56 | Outpatient (CLI) | payer MEDICARE, SELFPAY ==
[2022-04-10 10:08] VITALS: BP 138/90; PULSE 79; RESP 22; TEMP 36.3; O2SAT 99
== END 2022-04-10 10:22 | disposition home or self-care (01) ==
LOC: INF 09:57
PROVIDERS: PCP Family Medicine; Visit Provider Nurse Practitioner Obstetrics & Gynecology
DX: M85.89 Other specified disorders of bone density and structure, multiple sites (principal); Z78.0 Asymptomatic menopausal state
CPT/HCPCS: 96372; J0897

== ENCOUNTER → 2022-04-23 11:13 | Outpatient (CLI) | payer MEDICARE, SELFPAY ==
--- NOTE | 2022-04-23 11:17 | XR_ITS ---
FINAL REPORT TECHNIQUE: Chest PA & Lateral CLINICAL HISTORY: SOB COMPARISON: 01/09/2022 FINDINGS: 2 views of the chest were performed. The heart size is normal. The mediastinum is within normal limits. No airspace infiltrates are identified. There are mild chronic changes in the lung bases. There are no pleural effusions. There is no pneumothorax. The bony thorax appears intact. IMPRESSION: No acute cardiopulmonary process. Reviewed, Interpreted and Dictated by Rich Rosas MD Transcribed by Zita Goodman Authenticated and [facility]
== END ==
PROVIDERS: PCP Family Medicine; Visit Provider Internal Medicine Pulmonary Disease
DX: J44.1 Chronic obstructive pulmonary disease with (acute) exacerbation (principal)
CPT/HCPCS: 71046

== ENCOUNTER → 2022-04-27 14:13 | Outpatient (POV) | payer MEDICARE, SELFPAY ==
[2022-04-27 14:33] VITALS: BP 160/98; PULSE 81; RESP 20; TEMP 37.2; O2SAT 92; BMI 36.8
--- NOTE | 2022-04-27 14:34 | EXP.PAIN.SOA ---
[facility] Pain Management SOAP Note Subjective:: Patient is a pleasant 66-year-old female who presents today for follow-up of right SI injection on 04/03/2022. We are currently treating the patient for sacroiliitis right-sided and low back pain. Today the patient states that she had at least 50% improvement of her pain symptoms lasting 2 days following this injection. Patient states she was able to increase her activity with longer ambulation at her home. Previously the patient states she often had to stop at multiple areas of her home to get from one side to the other. Today the patient rates her pain a 4 out of 10 and states the pain is all in her low back on the right side that radiates into her right leg. Patient denies any new trauma or injury. She denies any change to location or type of pain she experiences. Patient is currently managed with pregabalin 225 mg twice a day by Dr. Benitez's office as well as butal. Patient denies any side effects from these medications. She states these medications do help manage her pain symptoms. Her Michael is [id number]. Review of Systems: General: No recent weight changes, no fever, no sleep disturbances Respiratory: No cough, no shortness of air, no recurring pulmonary infections Cardiovascular/peripheral vascular: No chest pain, no palpitations, no edema, no shortness of breath Gastrointestinal: No new onset incontinence, normal bowel movements reported Genitourinary: No new onset incontinence Musculoskeletal: Low back pain, right leg pain Psychiatric: [Normal mood/affect] Neurological: [Denies weakness in extremities], [denies balance issues] Objective:: Physical Exam: General: Alert and oriented x3, no acute distress, pleasant and cooperative Lungs: Respirations even and unlabored, symmetrical chest expansion Eyes: PERRL Musculoskeletal: Flexion and extension of lumbar [spine] somewhat guarded secondary to pain, [antalgic gait noted]. Extreme point tenderness along right SI and positive right Gildardo's, Denisha's, Gaenslen's, compression and distraction exam Neurological: Speech clear, no gross sensory deficit Assessment:: Right-sided sacroiliitis, low back pain Plan:: Patient continues to have significant pain in her low back on the right side that radiates into her right leg. Patient did have limited range of motion of her lumbar spine during today's visit. Patient also had a positive right Gildardo's, Denisha's, Gaenslen's, compression and distraction exam and positive point tenderness along right SI. I have discussed with the patient regarding having a repeat SI injection. Risk and benefits of the procedure were explained to the patient. She would like to proceed forward with this plan of care. I have also counseled the patient regarding if she continues to have significant relief following this next injection we will plan for possibly doing a SI RFA or corner lock procedure in the future. We will schedule the patient for a right SI injection at today's visit. Patient has been instructed to contact the clinic with any concerns before the next appointment. Dr. Viramontes has reviewed this note and agrees with this plan of care. This note was dictated using voice recognition software and make contain errors or omissions. PFSH PFSH Medical History Allergic rhinitis, unspecified Atypical angina Carotid artery stenosis Chronic hypoxemic respiratory failure Chronic obstructive pulmonary disease with acute respiratory distress COPD exacerbation Coronary arteriosclerosis Diastolic dysfunction Dyspnea on exertion History of 2019 novel coronavirus disease (COVID-19) History of smoking 30 or more pack years HTN (hypertension) Hyperlipidemia Hypertensive heart disease without heart failure Hypotension Lung nodule Respiratory symptoms Smoking greater than 30 pack years Surgical History History of bladder suspension procedure Hx of appendectomy Hx of tubal ligation
== END ==
PROVIDERS: PCP Family Medicine; Visit Provider Nurse Practitioner Family
DX: M46.1 Sacroiliitis, not elsewhere classified (principal); M54.50 Low back pain, unspecified; Z79.899 Other long term (current) drug therapy
CPT/HCPCS: 99212; G0463

== ENCOUNTER 2022-05-12 09:45 | Day surgery (SDC) | payer MEDICARE, SELFPAY ==
[2022-05-12 09:51] VITALS: BP 147/69; PULSE 80; RESP 18; TEMP 36.6; O2SAT 97; BMI 36.3
[2022-05-12 10:10] VITALS: BP 174/80; PULSE 89; RESP 18; O2SAT 97
[2022-05-12 10:12] VITALS: BP 137/66; PULSE 87; RESP 18; O2SAT 97
[2022-05-12 10:13] VITALS: BP 174/80; PULSE 89; RESP 18; O2SAT 97
--- NOTE | 2022-05-12 10:17 | EXP.PAIN.PRO ---
Procedure Date: 05/12/22 Time: 10:00 Anesthesiologist:: Filipe Gorman CRNA Complications:: None Pre-procedure Diagnosis:: Right sacroiliitis Post-procedure Diagnosis:: Same Indications for Procedure:: Patient is a pleasant 66-year-old female that comes our clinic today for right sacroiliac joint injection. Patient is had this in the past with significant improvement terms of her right posterior hip pain as well as lumbar back pain. She rates her pain 7/10 today Procedure Details:: Procedure: Right sacroliliac joint injection under fluoroscopy Informed consent was obtained and the risk and benefits of the procedure were explained to the patient.~ The patient was taken to the procedure room and noninvasive monitors were placed including noninvasive blood pressure cuff and pulse oximeter.~ The patient was placed prone on the procedure table.~ The~ right hip was cleansed using Betadine as a cleansing solution.~ C-arm fluorosocpy was used to view the right SI joint.~ The skin and subcutaneous tissues were anesthetized using Lidocaine 1.5% and a 25-gauge needle.~ After this, a 22-gauge spinal needle was inserted under fluoroscopic guidance into the inferior aspect of the right SI joint.~ Omnipaque dye was injected and a good spread was seen throughout the joint.~ After this, approximately 5 mL of bupivacaine 0.25% and Depo-Medrol 40 mg was incrementally injected into the sacroiliac joint.~ The patient tolerated the procedure well with no complications.~ The patient was observed in the Pain Clinic, then discharged home neurologically intact.~ Plan and Disposition:: Patient was discharged without incident
== END 2022-05-12 10:12 | disposition home or self-care (01) ==
PROVIDERS: PCP Family Medicine; Visit Provider Nurse Anesthetist, Certified Registered
DX: M46.1 Sacroiliitis, not elsewhere classified (principal)
CPT/HCPCS: 27096; G0260; J1040

== ENCOUNTER → 2022-06-01 11:36 | Outpatient (POV) | payer MEDICARE, SELFPAY ==
[2022-06-01 12:03] VITALS: BP 152/82; PULSE 86; RESP 18; O2SAT 92; BMI 36.8
--- NOTE | 2022-06-01 12:08 | EXP.PAIN.SOA ---
[facility] Pain Management SOAP Note Subjective:: Patient is a pleasant 66-year-old female who presents today for follow-up of right SI injection on 05/12/2022. We are currently treating the patient for low back pain, sacroiliitis. Today the patient states she had 0 relief following this injection. Patient's rates her pain a 4 out of 10. She states the pain is all in her right hip as well as her low back. Patient states this is been going on for years and progressively worsened over time. Patient does state this is a aching throbbing sensation that is worse with increased activity. Patient states that she is scheduled to see her entry engineer on June 13 and is wanting to discuss with them regarding having a bariatric surgery in her future. Patient states she continues to experience significant weight gain that is causing worsening pain symptoms in her low back. Patient does state this affects her ability to perform activities of daily living such as walking and standing for prolonged period of time. Patient states that she is unable to do simple activities such as sweeping or doing the dishes due to the pain. Patient has tried [id number] ibuprofen with minimal improvement of her symptoms. Patient does also use ice and heat and Voltaren gel with minimal relief. Patient is currently managed with pregabalin 225 mg twice a day from Dr. Benitez's office. Patient denies any side effects from this medication. She states this medication does help with some of her pain symptoms. Her Michael is [id number]. It has been reviewed and appropriate. Review of Systems: General: No recent weight changes, no fever, no sleep disturbances Respiratory: No cough, no shortness of air, no recurring pulmonary infections Cardiovascular/peripheral vascular: No chest pain, no palpitations, no edema, no shortness of breath Gastrointestinal: No new onset incontinence, normal bowel movements reported Genitourinary: No new onset incontinence Musculoskeletal: Low back pain, right hip pain Psychiatric: [Normal mood/affect] Neurological: [Denies weakness in extremities], [denies balance issues] Objective:: Physical Exam: General: Alert and oriented x3, no acute distress, pleasant and cooperative Lungs: Respirations even and unlabored, symmetrical chest expansion Eyes: PERRL Musculoskeletal: Flexion and extension of lumbar [spine] somewhat guarded secondary to pain, [antalgic gait noted] Neurological: Speech clear, no gross sensory deficit Assessment:: Low back pain, sacroiliitis, right hip pain Plan:: Patient is experiencing significant pain in her low back that radiates into her right hip. Patient did have limited range of motion of her lumbar spine during today's visit. I have discussed with the patient that she may benefit from a diagnostic right hip intra-articular injection. Risk and benefits were discussed with the patient. She would like to proceed forward with this plan of care. She is not currently on any blood thinners. I will also order her a compounding cream at today's visit. We will also send in a referral to Dr. Gabo Sahu to consult for possible bariatric surgery in the future. We will schedule the patient for a diagnostic right intra-articular hip injection. Patient has been instructed to contact the clinic with any concerns before the next appointment. Dr. Viramontes has reviewed this note and agrees with this plan of care. This note was dictated using voice recognition software and make contain errors or omissions. PFSH PFSH Medical History Allergic rhinitis, unspecified Atypical angina Carotid artery stenosis Chronic hypoxemic respiratory failure Chronic obstructive pulmonary disease with acute respiratory distress COPD exacerbation Coronary arteriosclerosis Diastolic dysfunction Dyspnea on exertion History of 2019 novel coronavirus disease (COVID-19) History of smoking 30 or more pack years HTN (hypertension) Hyperlipidemia Hypertensive heart disease
== END ==
PROVIDERS: PCP Family Medicine; Visit Provider Nurse Practitioner Family
DX: M54.50 Low back pain, unspecified (principal); M46.1 Sacroiliitis, not elsewhere classified
CPT/HCPCS: 99212; G0463

== ENCOUNTER 2022-06-16 09:47 | Day surgery (SDC) | payer MEDICARE, SELFPAY ==
[2022-06-16 10:04] VITALS: BP 151/74; PULSE 95; RESP 18; TEMP 36.4; O2SAT 90; BMI 38.6
[2022-06-16 10:15] VITALS: BP 154/86; PULSE 84; RESP 18; O2SAT 96
[2022-06-16 10:17] VITALS: BP 154/86; PULSE 84; RESP 18; O2SAT 96
--- NOTE | 2022-06-16 10:18 | EXP.PAIN.PRO ---
Procedure Date: 06/16/22 Time: 09:45 Anesthesiologist:: Filipe Gorman CRNA Complications:: None Pre-procedure Diagnosis:: Osteoarthritis right hip. Post-procedure Diagnosis:: Same. Indications for Procedure:: Patient is a pleasant 66-year-old female who is oxygen dependent here today for right intra-articular hip injection. Patient reports she has had this in the past with significant improvement lasting 2 to 3 hours. After which time her hip pain returns. She describes the pain as constant, dull, sharp and stabbing at times. She rates the pain 8/10. Procedure Details:: Details of the procedure were explained to the patient. The patient was taken to procedure room placed in the supine position. The area over the right hip was cleaned using chlorhexidine as a cleansing solution. Using fluoroscopy guidance a 3 and half inch 22-gauge spinal needle was used to access the right hip joint without difficulty. After negative aspiration 3 cc of 1% lidocaine +3 cc of 0.25% Marcaine and 40 mg of Depo-Medrol was injected. Needle was withdrawn. Band-Aid applied. Patient tolerated procedure without difficulty. There are no complications. Plan and Disposition:: Patient was discharged without incident
[2022-06-16 10:20] VITALS: BP 127/64; PULSE 92; RESP 18; O2SAT 90
== END 2022-06-16 10:20 | disposition home or self-care (01) ==
PROVIDERS: PCP Family Medicine; Visit Provider Nurse Anesthetist, Certified Registered
DX: M16.11 Unilateral primary osteoarthritis, right hip (principal)
CPT/HCPCS: 20610; J1040

== ENCOUNTER → 2022-07-07 09:16 | Outpatient (POV) | payer MEDICARE, SELFPAY ==
--- NOTE | 2022-07-07 10:08 | EXP.PAIN.SOA ---
[facility] Pain Management SOAP Note Subjective:: Patient is a pleasant 66-year-old female who presents today for follow-up of right hip intra-articular injection on 06/16/2022. We are currently treating the patient for low back pain, right hip osteoarthritis, sacroiliitis. Today the patient states that these injections provided no additional relief. She states her pain is 3 out of 10. Patient denies any new trauma or injury. Patient denies any change to location or type of pain she experiences. Patient does state this is a aching, throbbing sensation that is worse with increased activity. Patient has had multiple injections including SI injections with minimal relief long-term. patient is trying to see a general surgeon for bariatric surgery. We did send her a referral for Gabo Sahu and she states that she has been working on getting everything together for this visit. 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 Patient is on oxygen therapy 01/02. Patient does use heat and ice and Voltaren gel with minimal improvement. She is prescribed pregabalin 225 mg twice a day from a outside provider. Patient states that the compounding cream does not seem to be providing significant relief. Her Michael is [id number]. Its been reviewed and appropriate. Review of Systems: General: No recent weight changes, no fever, no sleep disturbances Respiratory: No cough, no shortness of air, no recurring pulmonary infections Cardiovascular/peripheral vascular: No chest pain, no palpitations, no edema, no shortness of breath Gastrointestinal: No new onset incontinence, normal bowel movements reported Genitourinary: No new onset incontinence Musculoskeletal: Low back pain Psychiatric: [Normal mood/affect] Neurological: [Denies weakness in extremities], [denies balance issues] Objective:: Physical Exam: General: Alert and oriented x3, no acute distress, pleasant and cooperative Lungs: Respirations even and unlabored, symmetrical chest expansion Eyes: PERRL Musculoskeletal: Flexion and extension of lumbar [spine] somewhat guarded secondary to pain, [antalgic gait noted] Neurological: Speech clear, no gross sensory deficit Assessment:: Low back pain, right hip osteoarthritis, sacroiliitis Plan:: Patient continues to experience significant pain in her low back primarily along the right side that is worse with increased activity. Patient did have limited range of motion of her lumbar spine at today's visit. I have discussed with the patient that we do not have any updated imaging of her lumbar spine since 2018. I will order MRI without contrast of her lumbar spine at today's visit and patient will return to clinic following this imaging for reevaluation of symptoms and plan of care.. Patient has been instructed to contact the clinic with any concerns before the next appointment. Dr. Viramontes has reviewed this note and agrees with this plan of care. This note was dictated using voice recognition software and make contain errors or omissions. [facility] Disclaimer: The information contained in this section may have been updated after the patient was seen, as this information can be updated by other users. Medical History Allergic rhinitis, unspecified Atypical angina Carotid artery stenosis Chronic hypoxemic respiratory failure Chronic obstructive lung disease Chronic obstructive pulmonary disease with acute respiratory distress COPD exacerbation Coronary arteriosclerosis Diastolic dysfunction Dyspnea on exertion History of 2019 novel coronavirus disease (COVID-19) History of smoking 30 or more pack years HTN (hypertension) Hyperlipidemia Hypertensive heart disease without heart failure Hypotension Lung nodule Respiratory symptoms Screening for lung cancer Smoking greater than 30 pack years Surgical History History of bladder suspension procedure Hx of appe
[2022-07-07 10:25] VITALS: BP 149/86; PULSE 98; RESP 19; O2SAT 95; BMI 37.8
== END ==
PROVIDERS: Visit Provider Nurse Practitioner Family
DX: M46.1 Sacroiliitis, not elsewhere classified (principal); M16.11 Unilateral primary osteoarthritis, right hip; M54.50 Low back pain, unspecified
CPT/HCPCS: 99212; G0463

== ENCOUNTER → 2022-07-09 10:23 | Outpatient (CLI) | payer MEDICARE, SELFPAY ==
--- NOTE | 2022-07-09 10:36 | MR_ITS ---
FINAL REPORT CLINICAL HISTORY: low back pain, no injury FINDINGS: Multiplanar MR imaging of the lumbar spine was performed without contrast. On the sagittal T2-weighted images, disc degeneration is seen throughout. There is endplate changes several levels. There is mild retrolisthesis of L2 on L3. There is mild leftward curvature. There is no evidence of fracture. The conus has an unremarkable appearance. L1-2: There is an annular bulge, facet arthropathy and vertebral osteophytes. There is mild bilateral neural foraminal narrowing. L2-3: There is an annular bulge, facet arthropathy and vertebral osteophytes. There is a small left foraminal disc protrusion. There is moderate right and mild left neural foraminal narrowing. L3-4: There is an annular bulge and facet arthropathy. There is mild bilateral neural foraminal narrowing. L4-5: There is an annular bulge and facet arthropathy. There is mild left neural foraminal narrowing. L5-S1: An annular bulge is present. There is no significant central canal stenosis or neural foraminal narrowing. There is mild spurring of the SI joints. IMPRESSION: Multilevel degenerative disc disease with areas of neural foraminal narrowing. Small left foraminal disc protrusion at L2-L3 without significant central canal stenosis. Reviewed, Interpreted and Dictated by Lico Winter III, MD Transcribed by Ace Nuñez Authenticated and [facility]
== END ==
PROVIDERS: PCP Family Medicine; Visit Provider Nurse Practitioner Family
DX: M54.50 Low back pain, unspecified (principal)
CPT/HCPCS: 72148; 76376

== ENCOUNTER → 2022-07-27 11:37 | Outpatient (POV) | payer MEDICARE, SELFPAY ==
[2022-07-27 12:07] VITALS: BP 200/98; PULSE 113; RESP 22; O2SAT 85; BMI 43.6
--- NOTE | 2022-07-27 12:17 | EXP.PAIN.SOA ---
[facility] Pain Management SOAP Note Subjective:: Patient is a pleasant 66-year-old female who presents today for follow-up of MRI imaging. We are currently treating the patient for low back pain, right hip pain, right hip osteoarthritis, sacroiliitis, right knee pain. Today she rates her pain a 5 out of 10. Patient states she has been experiencing more falls due to her right knee giving out on her. Patient states that she was at [facility] earlier last week and fell coming out. Patient denies any significant injury however she states she did have soreness and some bruising. Patient does state that she still is a little sore at today's visit. Patient also continues to experience low back pain with radiating symptoms into her lower extremities. Patient does state that her right side is always her worst side. Patient does describe this as a aching, throbbing sensation that is worse with increased activity. Patient has had multiple injections in the past including SI injections. Patient is oxygen dependent and on portable oxygen at 2 L 24/7. Patient states that she is experiencing an exacerbation during today's visit and that she is planning to schedule a visit with her planning advisor and family doctor as soon as possible. Patient does have a longstanding history of COPD and has been referred to Gabo Sahu for possible bariatric surgery work-up. Patient states she has not had any additional visits with this office. Patient is currently managed with pregabalin 225 mg twice a day from her primary care doctor and compounding cream. Patient denies any side effects from these medications. She states these medications do help manage her pain symptoms. Her Michael is [phone]. Its been reviewed and appropriate. Review of Systems: General: No recent weight changes, no fever, no sleep disturbances Respiratory: No cough, no shortness of air, no recurring pulmonary infections Cardiovascular/peripheral vascular: No chest pain, no palpitations, no edema, no shortness of breath Gastrointestinal: No new onset incontinence, normal bowel movements reported Genitourinary: No new onset incontinence Musculoskeletal: Low back pain, right knee pain Psychiatric: [Normal mood/affect] Neurological: weakness in right knee], [denies balance issues] Objective:: Physical Exam: General: Alert and oriented x3, no acute distress, pleasant and cooperative Lungs: Respirations even and unlabored, symmetrical chest expansion Eyes: PERRL Musculoskeletal: Flexion and extension of lumbar [spine] somewhat guarded secondary to pain, [antalgic gait noted] Neurological: Speech clear, no gross sensory deficit ORT score updated with moderate risk History of ADHD, OCD, bipolar, schizophrenia, depression FINDINGS: Multiplanar MR imaging of the lumbar spine was performed without contrast. On the sagittal T2-weighted images, disc degeneration is seen throughout.? There is endplate changes several levels. There is mild retrolisthesis of L2 on L3.? There is mild leftward curvature. ? There is no evidence of fracture.? The conus has an unremarkable appearance.? L1-2:? There is an annular bulge, facet arthropathy and vertebral osteophytes. There is mild bilateral neural foraminal narrowing.? L2-3: There is an annular bulge, facet arthropathy and vertebral osteophytes.? There is a small left foraminal disc protrusion. There is moderate right and mild left neural foraminal narrowing.? L3-4:? There is an annular bulge and facet arthropathy.? There is mild bilateral neural foraminal narrowing.? L4-5:? There is an annular bulge and facet arthropathy.? There is mild left neural foraminal narrowing. L5-S1:? An annular bulge is present.? There is no significant central canal stenosis or neural foraminal narrowing.? ? There is mild spurring of the SI joints. IMPRESSION: Multilevel degenerative disc disease with areas of neural foraminal narrowing.? ? Small left foraminal disc protrusion at L2-L3 without significant c
== END ==
PROVIDERS: PCP Family Medicine; Visit Provider Nurse Practitioner Family
DX: M51.16 Intervertebral disc disorders with radiculopathy, lumbar region (principal); M47.26 Other spondylosis with radiculopathy, lumbar region; M16.0 Bilateral primary osteoarthritis of hip; M25.559 Pain in unspecified hip; M25.569 Pain in unspecified knee; M46.1 Sacroiliitis, not elsewhere classified
CPT/HCPCS: 99212; G0463

== ENCOUNTER → 2022-07-28 10:27 | Outpatient (CLI) | payer MEDICARE, SELFPAY ==
--- NOTE | 2022-07-28 10:34 | MM_ITS ---
PROCEDURE INFORMATION: Exam: MG Bilateral Screening 3D Mammography Exam date and time: 07/28/2022 10:52 AM Age: 66 years old Clinical indication: Screening examination TECHNIQUE: Imaging protocol: Bilateral Screening tomosynthesis and 2D mammography including computer-aided detection (CAD) when performed. COMPARISON: 1. MG MM DIG SCREENING MAMM BI W/CAD 07/18/2021 10:47 AM 2. MG MM DIG SCREENING MAMM BI W/CAD 05/28/2020 1:05 PM FINDINGS: MAMMOGRAPHY: Breast composition: There are scattered areas of fibroglandular density. Mass: None. Architectural distortion: None. Calcifications: No suspicious calcifications. Asymmetric density: None. Skin thickening: None. Axillary adenopathy: None. IMPRESSION: No mammographic evidence of malignancy. Annual screening is recommended unless otherwise clinically indicated. ASSESSMENT: BI-RADS Category 1: Negative
== END ==
PROVIDERS: PCP Family Medicine; Visit Provider Nurse Practitioner Obstetrics & Gynecology
DX: Z12.31 Encounter for screening mammogram for malignant neoplasm of breast (principal)
CPT/HCPCS: 77063; 77067

== ENCOUNTER → 2022-07-29 16:09 | Outpatient (CLI) | payer MEDICARE, SELFPAY ==
--- NOTE | 2022-07-29 16:14 | XR_ITS ---
FINAL REPORT CLINICAL HISTORY: Right knee pain FINDINGS: AP, oblique, and lateral views of the right knee were obtained. There is no acute fracture or dislocation. Joint spaces preserved. A joint effusion is seen. The soft tissues are otherwise normal.. IMPRESSION: No acute osseous abnormality of the right knee. Small joint effusion. Reviewed, Interpreted and Dictated by Bobbi Mcwilliams MD Transcribed by María Mello Authenticated and [facility]
== END ==
PROVIDERS: PCP Family Medicine; Visit Provider Family Medicine
DX: M25.561 Pain in right knee (principal)
CPT/HCPCS: 73562

== ENCOUNTER 2022-08-04 10:47 | Day surgery (SDC) | payer MEDICARE, SELFPAY ==
[2022-08-04 11:04] VITALS: BP 146/70; PULSE 88; RESP 18; TEMP 36.6; O2SAT 90; BMI 36.8
[2022-08-04 11:19] VITALS: BP 151/89; PULSE 106; RESP 18; O2SAT 96
[2022-08-04 11:24] VITALS: BP 142/73; PULSE 94; RESP 18; O2SAT 90
--- NOTE | 2022-08-04 11:28 | EXP.PAIN.PRO ---
Procedure Date: 08/04/22 Time: 11:20 Anesthesiologist:: Filipe Gorman CRNA Complications:: None Pre-procedure Diagnosis:: Degenerative disc disease lumbar spine multilevels. Lumbar radiculopathy Post-procedure Diagnosis:: Same. Indications for Procedure:: Patient is a pleasant 66-year-old female that comes our clinic today for lumbar epidural steroid injection at the L3-4 level. Patient has low back pain as well as bilateral hip and leg radicular pain she describes as constant, dull, aching. She rates the pain 6/10. Procedure Details:: Procedure: Lumbar epidural steroid injection under fluoroscopy Informed consent was obtained and the risks and benefits of the procedure were explained to the patient. The patient was taken to the procedure room and noninvasive monitors placed, including noninvasive blood pressure cuff and pulse oximeter. The back was viewed using C-arm Fluoroscopy and prepped using Chloraprep as a cleansing solution and the L3-4 interspace was palpated. Skin and subcutaneous tissues were anesthetized using lidocaine 1.5% and a 25-gauge needle. After this, an 18-gauge Touhy epidural needle was placed into the L3-4 interspace and advanced using fluoroscopic guidance and loss of resistance to air until the epidural space was encountered. After confirmation of needle placement in the epidural space, with dye, a solution containing normal saline, 3 mL and Depo-Medrol 80 mg were incrementally injected into the lumbar epidural space. The patient tolerated the procedure well with no complications. The patient was observed in the Pain Clinic and then discharged home neurologically intact. Plan and Disposition:: Patient was discharged without incident.
== END 2022-08-04 11:24 | disposition home or self-care (01) ==
PROVIDERS: PCP Family Medicine; Visit Provider Nurse Anesthetist, Certified Registered
DX: M51.16 Intervertebral disc disorders with radiculopathy, lumbar region (principal)
CPT/HCPCS: 62323; J1040

== ENCOUNTER → 2022-08-20 14:51 | Outpatient (CLI) | payer MEDICARE, SELFPAY ==
--- NOTE | 2022-08-20 14:57 | XR_ITS ---
FINAL REPORT CLINICAL HISTORY: RT SHOULDER PAIN FINDINGS: RIGHT SHOULDER Three views demonstrate no acute fracture or dislocation. There are mild hypertrophic changes of the AC joint. The soft tissues are unremarkable. IMPRESSION: No acute process. Reviewed, Interpreted and Dictated by Rich Rosas MD Transcribed by Minerva Gates Authenticated and . [facility]
== END ==
PROVIDERS: PCP Family Medicine; Visit Provider Family Medicine
DX: M25.511 Pain in right shoulder (principal)
CPT/HCPCS: 73030

== ENCOUNTER → 2022-08-26 10:41 | Outpatient (POV) | payer MEDICARE, SELFPAY ==
--- NOTE | 2022-08-26 11:01 | EXP.PAIN.SOA ---
[facility] Pain Management SOAP Note Subjective:: Patient is a pleasant 66-year-old female who presents today for follow-up of lumbar epidural steroid injection at L3-L4 on 08/04/2022. We are currently treating the patient for low back pain, right hip pain, osteoarthritis right hip, sacroiliitis, right knee pain. Today she states that she had at least 90% improvement following this injection last seen at least 2 weeks. Patient states she did have a couple bad days and then she did go see her primary care doctor who gave her oral steroids and she states that she has done well since. Patient rates her pain a 2 out of 10 today. Patient denies any new trauma or injury. Patient denies any change location or type of pain she experiences. Patient states that she does still have right hip pain that is more bothersome when she is up and moving around. Patient states that she has been able to increase her activity following this injection with decreased pain. Patient states she has noticed more of a difference with being able to stand up and be on her feet for 20 minutes at a time before having to take a break. Patient is scheduled for physical therapy on Wednesday for upper extremity strengthening. Patient has also been to see Dr. Sahu's office for bariatric surgery work-up. Patient states that they are planning for a gastric sleeve around November. Patient states that her insurance will change September 09 because she turned 67 so hopefully it may be sooner for the surgery. Patient is currently managed with compounding cream and pregabalin 225 mg twice a day from her primary care doctor. Patient denies any side effects from this medication. Patient is O2 dependent. Her Michael is [id number]. Its been reviewed and appropriate. Review of Systems: General: No recent weight changes, no fever, no sleep disturbances Respiratory: No cough, no shortness of air, no recurring pulmonary infections Cardiovascular/peripheral vascular: No chest pain, no palpitations, no edema, no shortness of breath Gastrointestinal: No new onset incontinence, normal bowel movements reported Genitourinary: No new onset incontinence Musculoskeletal: Right hip pain Psychiatric: [Normal mood/affect] Neurological: [Denies weakness in extremities], [denies balance issues] Objective:: Physical Exam: General: Alert and oriented x3, no acute distress, pleasant and cooperative Lungs: Respirations even and unlabored, symmetrical chest expansion Eyes: PERRL Musculoskeletal: Flexion and extension of right hip somewhat guarded secondary to pain, [antalgic gait noted] Neurological: Speech clear, no gross sensory deficit Assessment:: Low back pain, right hip pain, osteoarthritis right hip, sacroiliitis, right knee pain Plan:: Patient has had significant improvement following her last injection and does not require any additional injective therapy at this time. Patient is still currently on oral steroids and has approximately 4 days left of medication. We will schedule the patient to return to clinic in 2 weeks for reevaluation of symptoms and plan of care. Patient has been instructed to contact the clinic with any concerns before the next appointment. Dr. Viramontes has reviewed this note and agrees with this plan of care. This note was dictated using voice recognition software and make contain errors or omissions. [facility] Disclaimer: The information contained in this section may have been updated after the patient was seen, as this information can be updated by other users. Medical History Allergic rhinitis, unspecified Atypical angina Carotid artery stenosis Chronic hypoxemic respiratory failure Chronic obstructive lung disease Chronic obstructive pulmonary disease with acute respiratory distress COPD exacerbation Coronary arteriosclerosis Diastolic dysfunction Dyspnea on exertion History of 2019 novel coronavirus disease (COVID-19) History of smoking 30 or more pack years HTN (hypertension) Hyperlipidemia
[2022-08-26 11:38] VITALS: BP 158/76; PULSE 101; RESP 18; O2SAT 96; BMI 38.6
== END ==
PROVIDERS: PCP Family Medicine; Visit Provider Nurse Practitioner Family
DX: M54.50 Low back pain, unspecified (principal); M46.1 Sacroiliitis, not elsewhere classified; M16.11 Unilateral primary osteoarthritis, right hip; M25.551 Pain in right hip; M25.561 Pain in right knee
CPT/HCPCS: 99212; G0463

== ENCOUNTER → 2022-09-10 10:38 | Outpatient (CLI) | payer MEDICARE, SELFPAY ==
--- NOTE | 2022-09-10 11:19 | XR_ITS ---
FINAL REPORT CLINICAL HISTORY: COPD pre op COMPARISON: 04/23/2022 FINDINGS: PA and lateral views of the chest were obtained. The cardiac and mediastinal silhouettes are within normal limits. Linear opacity in the lingula is likely atelectasis or scar. The lungs are otherwise clear. There is no pleural effusion or pneumothorax. No acute osseous abnormality is identified. IMPRESSION: Linear opacity in the lingula is likely atelectasis or scar, lungs are otherwise clear. Reviewed, Interpreted and Dictated by Bobbi Mcwilliams MD Transcribed by Zita Goodman Authenticated and [facility]
[2022-09-10 12:12] LABS: Basophils # 0.1 K/mm3 (0-0.2); Basophils % 0.9 % (0.1-2.0); Eosinophils # 0.2 K/mm3 (0.0-0.4); Eosinophils % 4.4 % (0.1-12.0); Hematocrit 40.9 % (37.0-47.0); Hemoglobin 12.7 g/dL (12.2-16.2); Lymphocytes # 1.6 K/mm3 (0.7-4.5); Lymphocytes % 31.2 % (10-50); Mean Corpuscular HGB Conc 30.9 g/dL (31.8-35.4); Mean Corpuscular Hemoglobin 24.8 pg (27.0-31.2); Mean Corpuscular Volume 80.3 fl (81-99); Mean Platelet Volume 7.6 fl (7.4-10.4); Monocytes # 0.4 K/mm3 (0.1-1.0); Monocytes % 7.8 % (1.7-9.3); Neutrophils # 2.8 K/mm3 (1.8-7.8); Neutrophils % 55.6 % (37.0-80.0); Platelet Count 242 K/mm3 (142-424); Red Cell Distribution Width 18.8 % (11.5-17.5); White Blood Count 5.1 K/mm3 (4.8-10.8)
[2022-09-10 12:27] LABS: Hemoglobin A1C 5.4 % (4.0-6.0)
[2022-09-10 12:49] LABS: Alanine Aminotransferase 35 U/L (12-78); Albumin Level 4.2 g/dl (3.5-5.0); Albumin/Globulin Ratio 1.6 (1.1-1.8); Alkaline Phosphatase 84 U/L (38-126); Anion Gap 11.3 mEq/L (5-15); Aspartate Amino Transferase 39 U/L (14-36); Bilirubin,Total 0.5 mg/dl (0.2-1.3); Blood Urea Nitrogen 20 mg/dl (7-17); Calcium 10.2 mg/dl (8.4-10.2); Carbon Dioxide 29 mmol/L (22.0-30.0); Chloride 100 mmol/L (98-107); Cholesterol 135 mg/dl (140-200); Estimated Glomerular Filt Rate 63 ml/min (>60); GFR (African American) 76 ML/MIN (>60); Globulin 2.6 g/dL (1.3-3.2); Glucose 116 mg/dl (74-100); HDL Cholesterol 67 mg/dl (40-60); Potassium 4.3 mmoL/L (3.5-5.1); Sodium 136 mmol/L (136-145); Total Protein,Serum 6.8 g/dl (6.3-8.2); Triglycerides 123 mg/dl (30-150); VLDL Cholesterol 25 mg/dL (0-40)
[2022-09-10 13:00] LABS: Direct LDL Cholesterol 43.68 mg/dL (100-129)
[2022-09-10 13:06] LABS: T4 (Thyroxine) 6.7 ug/dl (5.53-11.0)
[2022-09-10 13:20] LABS: Thyroid Stimulating Hormone 1.07 uIU/mL (0.465-4.68)
[2022-09-11 09:25] LABS: Triiodothyronine (T3) Total 120 ng/dL (71-180)
== END ==
PROVIDERS: PCP Family Medicine; Visit Provider Family Medicine
DX: E78.2 Mixed hyperlipidemia (principal); R63.5 Abnormal weight gain
CPT/HCPCS: 36415; 71046; 80053; 80061; 83036; 84436; 84443; 84480; 85025

== ENCOUNTER → 2022-09-10 14:52 | Outpatient (POV) | payer MEDICARE, SELFPAY ==
[2022-09-10 15:03] VITALS: BP 124/82; PULSE 103; RESP 18; O2SAT 92; BMI 39.9
--- NOTE | 2022-09-10 15:37 | EXP.PAIN.SOA ---
[facility] Pain Management SOAP Note Subjective:: Patient is a pleasant 66-year-old female who presents today for follow-up. We are currently treating the patient for low back pain, right hip pain, osteoarthritis right hip, sacroiliitis, right knee pain. Today she rates her pain a 6 out of 10. Patient states her knee is doing okay during our visit however she is having worsening low back pain. Patient denies any new trauma or injury. Patient denies any change location or type of pain she experiences. She does describe this as an aching, throbbing, dull sensation that is constant. It does affect her ability to perform activities of daily living such as even light cooking and cleaning. Patient states she cannot tolerate prolonged standing, walking due to the pain. Patient has previously had a lumbar epidural steroid injection that did provide at least 90% improvement lasting several weeks. Patient is interested in repeating this injection. Patient is on continuous O2 and is currently scheduled for a gastric sleeve coming up in November. Patient states that she is doing additional labs and cardiac clearance in preparation for this procedure. She is scheduled for an EGD on the at [facility]. Patient states that she is currently still on her [employer] insurance but that should be changing here soon. Patient is currently managed with compounding cream and pregabalin 225 mg twice a day 5 Dr. Benitez's office. Patient denies any side effects from this medication. She states this medication does help manage her pain symptoms. Her Michael is [id number]. Its been reviewed and appropriate. Review of Systems: General: No recent weight changes, no fever, no sleep disturbances Respiratory: No cough, no shortness of air, no recurring pulmonary infections Cardiovascular/peripheral vascular: No chest pain, no palpitations, no edema, no shortness of breath Gastrointestinal: No new onset incontinence, normal bowel movements reported Genitourinary: No new onset incontinence Musculoskeletal: Low back pain, leg pain Psychiatric: [Normal mood/affect] Neurological: [Denies weakness in extremities], [denies balance issues] Objective:: Physical Exam: General: Alert and oriented x3, no acute distress, pleasant and cooperative Lungs: Respirations even and unlabored, symmetrical chest expansion Eyes: PERRL Musculoskeletal: Flexion and extension of lumbar [spine] somewhat guarded secondary to pain, [antalgic gait noted] Neurological: Speech clear, no gross sensory deficit Assessment:: Low back pain with lumbar radiculopathy symptoms, right hip pain, osteoarthritis right hip, sacroiliitis, right knee pain Plan:: Patient is experiencing significant pain in her low back with radiating symptoms and limited range of motion. I have discussed with the patient that she may benefit from repeating a lumbar epidural steroid injection. Patient previously had one at L3-4 that provided upwards of at least 90% improvement. Risk and benefits of this procedure were explained to the patient and she would like to proceed forward with this plan of care. Patient is not currently on any blood thinners. We will schedule her for a lumbar epidural steroid injection at L3-L4. Patient has been instructed to contact the clinic with any concerns before the next appointment. Dr. Viramontes has reviewed this note and agrees with this plan of care. This note was dictated using voice recognition software and make contain errors or omissions. [facility] Disclaimer: The information contained in this section may have been updated after the patient was seen, as this information can be updated by other users. Medical History Allergic rhinitis, unspecified Atypical angina Carotid artery stenosis Chronic hypoxemic respiratory failure Chronic obstructive lung disease Chronic obstructive pulmonary disease with acute respiratory distress COPD exacerbation Coronary arteriosclerosis Diastolic dysfunction
== END ==
PROVIDERS: Visit Provider Nurse Practitioner Family
DX: M54.16 Radiculopathy, lumbar region (principal); M54.50 Low back pain, unspecified; M25.551 Pain in right hip; M16.11 Unilateral primary osteoarthritis, right hip; M25.561 Pain in right knee; I10 Essential (primary) hypertension
CPT/HCPCS: 36415; 71046; 80053; 80061; 83036; 84436; 84443; 84480; 85025; 99212; G0463

== ENCOUNTER → 2022-09-15 12:42 | Outpatient (CLI) | payer MEDICARE, SELFPAY ==
--- NOTE | 2022-09-15 13:11 | PC.NURSE ---
Pre and Post Spirometry completed without incident. Albuterol 0.083% given, via HHN, per protocol, Pt tolerated tx well.
== END ==
PROVIDERS: PCP Family Medicine; Visit Provider Internal Medicine Pulmonary Disease
DX: J44.9 Chronic obstructive pulmonary disease, unspecified (principal)
CPT/HCPCS: 94060

== ENCOUNTER 2022-09-22 08:47 | Day surgery (SDC) | payer MEDICARE, SELFPAY ==
[2022-09-22 09:08] VITALS: BP 121/79; PULSE 75; RESP 18; TEMP 36.7; O2SAT 91; BMI 39.4
[2022-09-22 09:41] VITALS: BP 146/93; PULSE 112; RESP 18; O2SAT 96
[2022-09-22 09:43] VITALS: BP 146/93; PULSE 112; RESP 18; O2SAT 96
[2022-09-22 09:45] VITALS: BP 123/58; PULSE 92; RESP 18; O2SAT 98
--- NOTE | 2022-09-22 09:47 | P.PCN_ITS ---
Procedure Date: 09/22/22 Time: 09:15 Anesthesiologist:: Filipe Gorman CRNA Complications:: None Pre-procedure Diagnosis:: Degenerative disc disease lumbar spine multilevels prior lumbar radiculopathy. Post-procedure Diagnosis:: Same. Indications for Procedure:: Very pleasant 67-year-old female comes our clinic today for a therapeutic lumbar epidural steroid injection of the L3-4 level. She has had significant improvement terms of her low back pain as well as bilateral hip and leg radic ular symptoms with previous injections. She rates her pain today 6/10. Procedure Details:: Procedure: Lumbar epidural steroid injection under fluoroscopy Informed consent was obtained and the risks and benefits of the procedure were explained to the patient. The patient was taken to the procedure room and noninvasive monitors placed, including noninvasive blood pressure cuff and pulse oximeter. The back was viewed using C-arm Fluoroscopy and prepped using Chloraprep as a cleansing solution and the L4-L5 interspace was palpated. Skin and subcutaneous tissues were anesthetized using lidocaine 1.5% and a 25-gauge needle. After this, an 18-gauge Touhy epidural needle was placed into the L4-L5 interspace and advanced using fluoroscopic guidance and loss of resistance to air until the epidural space was encountered. After confirmation of needle placement in the epidural space, with dye, a solution containing normal saline, 3 mL and Depo-Medrol 80 mg were incrementally injected into the lumbar epidural space. The patient tolerated the procedure well with no complications. The patient was observed in the Pain Clinic and then discharged home neurologically intact. Plan and Disposition:: Patient was discharged without incident.
== END 2022-09-22 09:45 | disposition home or self-care (01) ==
PROVIDERS: PCP Family Medicine; Visit Provider Nurse Anesthetist, Certified Registered
DX: M51.16 Intervertebral disc disorders with radiculopathy, lumbar region (principal)
CPT/HCPCS: 62323; J1040

== ENCOUNTER → 2022-10-09 08:19 | Outpatient (POV) | payer MEDICARE, SELFPAY ==
[2022-10-09 08:35] VITALS: BP 125/79; PULSE 98; RESP 18; O2SAT 97; BMI 39.6
--- NOTE | 2022-10-09 08:43 | EXP.PAIN.SOA ---
[facility] Pain Management SOAP Note Subjective:: Patient is a pleasant 67-year-old female who presents today for follow-up of lumbar epidural steroid injection at L4-L5 on 09/22/2022. We are currently treating the patient for degenerative disc disease of lumbar spine with lumbar radiculopathy symptoms, right hip pain, osteoarthritis right hip, sacroiliitis, right knee pain. Today she rates her pain a 1 out of 10. She states that she is had at least 80% improvement following this injection. She states that getting up in the mornings she has no pain however she does state as the day progresses and she is done more walking or activity her pain does go to a 9 out of 10. Patient does state her back pain has been a little higher up the last few weeks. She does describe this as an aching, throbbing sensation that is worse with activities of daily living such as cooking or cleaning. Patient states she is still currently working towards getting bariatric surgery done coming up in October or November. She is on continuous O2. She does state that her insurance should be changing in the upcoming month and this will ultimately determine how quickly she has surgery. She is currently managed with compounding cream, and pregabalin 225 mg twice a day by Dr. Benitez's office. Patient denies any side effects from this medication. Her Michael is [phone]. Its been reviewed and appropriate. Review of Systems: General: No recent weight changes, no fever, no sleep disturbances Respiratory: No cough, no shortness of air, no recurring pulmonary infections Cardiovascular/peripheral vascular: No chest pain, no palpitations, no edema, no shortness of breath Gastrointestinal: No new onset incontinence, normal bowel movements reported Genitourinary: No new onset incontinence Musculoskeletal: Low back pain Psychiatric: [Normal mood/affect] Neurological: [Denies weakness in extremities], [denies balance issues] Objective:: Physical Exam: General: Alert and oriented x3, no acute distress, pleasant and cooperative Lungs: Respirations even and unlabored, symmetrical chest expansion Eyes: PERRL Musculoskeletal: Flexion and extension of lumbar [spine] somewhat guarded secondary to pain, [antalgic gait noted] Neurological: Speech clear, no gross sensory deficit FINDINGS: Multiplanar MR imaging of the lumbar spine was performed without contrast. On the sagittal T2-weighted images, disc degeneration is seen throughout.? There is endplate changes several levels. There is mild retrolisthesis of L2 on L3.? There is mild leftward curvature. ? There is no evidence of fracture.? The conus has an unremarkable appearance.? L1-2:? There is an annular bulge, facet arthropathy and vertebral osteophytes. There is mild bilateral neural foraminal narrowing.? L2-3: There is an annular bulge, facet arthropathy and vertebral osteophytes.? There is a small left foraminal disc protrusion. There is moderate right and mild left neural foraminal narrowing.? L3-4:? There is an annular bulge and facet arthropathy.? There is mild bilateral neural foraminal narrowing.? L4-5:? There is an annular bulge and facet arthropathy.? There is mild left neural foraminal narrowing. L5-S1:? An annular bulge is present.? There is no significant central canal stenosis or neural foraminal narrowing.? ? There is mild spurring of the SI joints. IMPRESSION: Multilevel degenerative disc disease with areas of neural foraminal narrowing.? ? Small left foraminal disc protrusion at L2-L3 without significant central canal stenosis. Reviewed, Interpreted and Dictated by Lico Winter III, MD Transcribed by Ace Nuñez Authenticated and [facility] Assessment:: Degenerative disc disease of lumbar spine with lumbar radiculopathy symptoms, right hip pain, osteoarthritis right hip, sacroiliitis, right knee pain Plan:: Patient is experiencing worsening pain in her
== END ==
PROVIDERS: PCP Family Medicine; Visit Provider Nurse Practitioner Family
DX: M51.16 Intervertebral disc disorders with radiculopathy, lumbar region (principal); M16.11 Unilateral primary osteoarthritis, right hip; M46.1 Sacroiliitis, not elsewhere classified; M25.551 Pain in right hip; M25.561 Pain in right knee
CPT/HCPCS: 99212; G0463

== ENCOUNTER 2022-10-13 09:02 | Outpatient (CLI) | payer MEDICARE, SELFPAY ==
[2022-10-13 09:22] VITALS: BP 136/79; PULSE 81; RESP 24; TEMP 36.4; O2SAT 94
== END 2022-10-13 09:35 | disposition home or self-care (01) ==
LOC: INF 09:04
PROVIDERS: PCP Family Medicine; Visit Provider Nurse Practitioner Obstetrics & Gynecology
DX: M85.89 Other specified disorders of bone density and structure, multiple sites (principal)
CPT/HCPCS: 96372; J0897

== ENCOUNTER → 2022-10-15 12:55 | Outpatient (CLI) | payer MEDICARE, SELFPAY ==
--- NOTE | 2022-10-15 12:58 | MR_ITS ---
FINAL REPORT CLINICAL HISTORY: SHOULDER PAIN. fell on shoulder 12 weeks ago. weakness in arm. FINDINGS: Multi planar MR imaging of the right shoulder was performed. Images are degraded by patient motion. The supraspinatus tendon appears intact. There is no abnormal fluid in the subacromial/subdeltoid bursa. The anterior and posterior glenoid galilea appear intact. The biceps tendon appears intact. The acromioclavicular joint appears intact. IMPRESSION: No evidence of significant internal derangement. Reviewed, Interpreted and Dictated by Rich Rosas MD Transcribed by Shweta Garzon Authenticated and [facility]
== END ==
PROVIDERS: PCP Family Medicine; Visit Provider Family Medicine
DX: M25.511 Pain in right shoulder (principal)
CPT/HCPCS: 73221

== ENCOUNTER 2022-10-20 08:26 | Day surgery (SDC) | payer MEDICARE, SELFPAY ==
[2022-10-20 08:56] VITALS: BP 151/84; PULSE 94; RESP 18; TEMP 36.2; O2SAT 90; BMI 38.6
[2022-10-20 09:10] VITALS: BP 149/87; PULSE 109; RESP 19; O2SAT 95
[2022-10-20 09:11] VITALS: BP 149/87; PULSE 109; RESP 19; O2SAT 95
[2022-10-20 09:13] VITALS: BP 124/71; PULSE 87; RESP 18; O2SAT 90
--- NOTE | 2022-10-20 09:13 | EXP.PAIN.PRO ---
Procedure Date: 10/20/22 Time: 09:10 Anesthesiologist:: Filipe Gorman CRNA Complications:: None Pre-procedure Diagnosis:: Degenerative disc disease multilevel lumbar spine. Lumbar radiculopathy. Post-procedure Diagnosis:: Same. Indications for Procedure:: Patient is a very pleasant 67-year-old female comes our clinic today for L2-3 epidural steroid injection. Patient complains of right hip and leg radicular symptoms. She also complains of low back pain she describes as constant, dull, aching. Procedure Details:: Procedure: Lumbar epidural steroid injection under fluoroscopy Informed consent was obtained and the risks and benefits of the procedure were explained to the patient. The patient was taken to the procedure room and noninvasive monitors placed, including noninvasive blood pressure cuff and pulse oximeter. The back was viewed using C-arm Fluoroscopy and prepped using Chloraprep as a cleansing solution and the L2-3 interspace was palpated. Skin and subcutaneous tissues were anesthetized using lidocaine 1.5% and a 25-gauge needle. After this, an 18-gauge Touhy epidural needle was placed into the L2-3 interspace and advanced using fluoroscopic guidance and loss of resistance to air until the epidural space was encountered. After confirmation of needle placement in the epidural space, with dye, a solution containing normal saline, 3 mL and Depo-Medrol 80 mg were incrementally injected into the lumbar epidural space. The patient tolerated the procedure well with no complications. The patient was observed in the Pain Clinic and then discharged home neurologically intact. Plan and Disposition:: Patient was discharged without incident.
== END 2022-10-20 09:13 | disposition home or self-care (01) ==
PROVIDERS: PCP Family Medicine; Visit Provider Nurse Anesthetist, Certified Registered
DX: M51.16 Intervertebral disc disorders with radiculopathy, lumbar region (principal)
CPT/HCPCS: 62323; J1040

== ENCOUNTER → 2022-11-04 09:36 | Outpatient (POV) | payer MEDICARE, SELFPAY ==
[2022-11-04 09:48] VITALS: BP 145/85; PULSE 92; RESP 18; O2SAT 97; BMI 39.9
--- NOTE | 2022-11-04 10:17 | EXP.PAIN.SOA ---
[facility] Pain Management SOAP Note Subjective:: Patient is a pleasant 67-year-old female who presents today for follow-up of lumbar epidural steroid injection of L2-L3 on 10/20/2022. We are currently treating the patient for degenerative disc disease of lumbar spine with lumbar radiculopathy symptoms, right hip pain, osteoarthritis right hip, sacroiliitis, right knee pain. Today she rates her pain a 9 out of 10. She does state that she is unsure of how well the injection worked due to significant worsening pain along her low back at the right side. Patient does describe this as a burning, aching sensation with occasional stabbing pains. She does state that it is worse with increased activity and that she cannot tolerate prolonged standing or walking due to the pain. Patient has tried [id number] Tylenol and ibuprofen with no additional relief. She has also tried heat and ice and compounding cream. Patient is on continuous O2 and is scheduled to have bariatric surgery at [facility] coming up this upcoming month. 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 She does state that she is met with a dietitian to go over some specifics. She is currently managed with pregabalin 225 mg twice a day from her primary care doctor. She denies any side effects from this medication. Her Michael is [id number]. Its been reviewed and appropriate. Review of Systems: General: No recent weight changes, no fever, no sleep disturbances Respiratory: No cough, no shortness of air, no recurring pulmonary infections Cardiovascular/peripheral vascular: No chest pain, no palpitations, no edema, no shortness of breath Gastrointestinal: No new onset incontinence, normal bowel movements reported Genitourinary: No new onset incontinence Musculoskeletal: Low back pain Psychiatric: [Normal mood/affect] Neurological: [Denies weakness in extremities], [denies balance issues] Objective:: Physical Exam: General: Alert and oriented x3, no acute distress, pleasant and cooperative Lungs: Respirations even and unlabored, symmetrical chest expansion Eyes: PERRL Musculoskeletal: Flexion and extension of lumbar [spine] somewhat guarded secondary to pain, [antalgic gait noted] extreme point tenderness along right SI with positive right Gildardo's, Denisha's, Gaenslen's, compression and distraction exam Neurological: Speech clear, no gross sensory deficit Assessment:: Degenerative disc disease of lumbar spine with lumbar radiculopathy symptoms, right hip pain, osteoarthritis right hip, sacroiliitis, right knee pain Plan:: Patient is experiencing significant pain in her low back along the right side with limited range of motion. Patient did have extreme point tenderness along her right SI with positive right Gildardo's, Denisha's, Gaenslen's, compression and distraction exam. Due to her upcoming bariatric surgery patient is not able to have a steroid injection at this time. I will send in a prescription for tramadol 50 mg with 14 tablets as needed. I will also send in tizanidine 4 mg at bedtime and provide a 2-week supply of this medication. I have counseled the patient to only take her methocarbamol twice a day and not take the evening dose while taking the tizanidine. In the future I have discussed with the patient that she may benefit from a SI stabilization procedure or SI injection at a later date. Patient will return to clinic in 1 month for reevaluation of symptoms and plan of care. Patient has been instructed to contact the clinic with any concerns before the next appointment. Dr. Viramontes has reviewed this note and agrees with this plan of care. This note was dictated using voice recognition software and make contain errors or omissions. [facility] Disclaimer: The information contained in this section may have been updated after the patient was seen, as this information can be updated by other users. Medical History
== END | disposition home or self-care (01) ==
PROVIDERS: PCP Family Medicine; Visit Provider Nurse Practitioner Family
DX: M51.16 Intervertebral disc disorders with radiculopathy, lumbar region (principal); M16.11 Unilateral primary osteoarthritis, right hip; M46.1 Sacroiliitis, not elsewhere classified; M25.551 Pain in right hip; M25.561 Pain in right knee
CPT/HCPCS: 99212; G0463

== ENCOUNTER → 2022-12-03 09:33 | Outpatient (POV) | payer MEDICARE, SELFPAY ==
--- NOTE | 2022-12-03 10:01 | EXP.PAIN.SOA ---
[facility] Pain Management SOAP Note Subjective:: Patient is a pleasant 67-year-old female who presents today for follow-up. We are currently treating the patient for degenerative disc disease of lumbar spine with lumbar radiculopathy symptoms, right hip pain, osteoarthritis right hip, sacroiliitis, right knee pain. Today she rates her pain a 3 out of 10. Patient denies any new trauma or injury. Patient denies any change in location or type of pain she experiences. Patient states that she has officially been given a 2-week follow-up date to meet with bariatric surgeon for her upcoming procedure. She states it should be at this point that she gets an official surgical date. She states she had talked to the nurse practitioner in the office and there is question whether or not if she will get a gastric sleeve or not related to a history of reflux. She states that her last EGD done further surgical prework-up did not show that her reflux was very bad and that she is hoping to discuss with Dr. Sahu at the upcoming appointment her options. Patient is currently managed with pregabalin 225 mg twice a day from her primary care doctor. At her last visit we did prescribe tramadol 50 mg with a 2-week supply and she states she did not notice any additional improvement of her symptoms. She does state that she thinks a lot of her back pain issues is related to her weight that she is put on. Patient also takes methocarbamol 750 mg twice daily during the day and tizanidine 4 mg at night however she states that she did not notice any additional improvement in her sleep habits or pain with the addition of the tizanidine. Her Michael is [id number]. It has been reviewed and is appropriate. Review of Systems: General: No recent weight changes, no fever, no sleep disturbances Respiratory: No cough, no shortness of air, no recurring pulmonary infections Cardiovascular/peripheral vascular: No chest pain, no palpitations, no edema, no shortness of breath Gastrointestinal: No new onset incontinence, normal bowel movements reported Genitourinary: No new onset incontinence Musculoskeletal: Low back pain Psychiatric: [Normal mood/affect] Neurological: [Denies weakness in extremities], [denies balance issues] Objective:: Physical Exam: General: Alert and oriented x3, no acute distress, pleasant and cooperative Lungs: Respirations even and unlabored, symmetrical chest expansion Eyes: PERRL Musculoskeletal: Flexion and extension of lumbar [spine] somewhat guarded secondary to pain, [antalgic gait noted] Neurological: Speech clear, no gross sensory deficit Assessment:: Degenerative disc disease of lumbar spine with lumbar radiculopathy symptoms, right hip pain, osteoarthritis right hip, sacroiliitis, right knee pain Plan:: We will refill her methocarbamol 750 mg 3 times daily and provide a 2 month supply of this medication. We will discontinue the tizanidine and tramadol. Patient will return to clinic in 6 weeks for reevaluation of symptoms and plan of care. Patient has been instructed to contact the clinic with any concerns before the next appointment. Dr. Viramontes has reviewed this note and agrees with this plan of care. This note was dictated using voice recognition software and make contain errors or omissions. [facility] Disclaimer: The information contained in this section may have been updated after the patient was seen, as this information can be updated by other users. Medical History Allergic rhinitis, unspecified Atypical angina Carotid artery stenosis Chronic hypoxemic respiratory failure Chronic obstructive lung disease Chronic obstructive pulmonary disease with acute respiratory distress COPD exacerbation Coronary arteriosclerosis Diastolic dysfunction Dyspnea on exertion History of 2019 novel coronavirus disease (COVID-19) History of smoking 30 or more pack years HTN (hypertension) Hyperlipidemia Hypertensive heart disease without heart failure Hypotension Lung nodu
[2022-12-03 11:02] VITALS: BP 180/63; PULSE 88; RESP 18; O2SAT 97; BMI 38.2
== END | disposition home or self-care (01) ==
PROVIDERS: PCP Family Medicine; Visit Provider Nurse Practitioner Family
DX: M51.16 Intervertebral disc disorders with radiculopathy, lumbar region (principal); M46.1 Sacroiliitis, not elsewhere classified; M16.11 Unilateral primary osteoarthritis, right hip; M25.551 Pain in right hip; M25.561 Pain in right knee
CPT/HCPCS: 99212; G0463

== ENCOUNTER → 2023-01-20 10:20 | Outpatient (POV) | payer MEDICARE, SELFPAY ==
--- NOTE | 2023-01-20 10:27 | EXP.PAIN.SOA ---
[facility] Pain Management SOAP Note Subjective:: Patient is a pleasant 67-year-old female who presents today for 2-month follow-up. We are currently treating the patient for degenerative disc disease of lumbar spine with lumbar radiculopathy symptoms, right hip pain, osteoarthritis right hip, sacroiliitis, right knee pain. Today she rates her pain a 0 out of 10. Patient states that she did have her gastric bypass surgery last month and has lost approximately 18 to 20 pounds already. Patient does state that she has been having vertigo that started the Wednesday after her surgery. Patient states that she was hospitalized for 3 days while they tried to figure it out and she was prescribed meclizine. She does state that she has not noticed any additional improvement with the medication and that she has been having more frequent falls due to the dizziness. She states she did fall in the bathtub this morning however she did not cause significant injury. She states she is scheduled to see an ENT specialist tomorrow and does start physical therapy today. She does state that she has been experiencing some right hip pain and that it is worse with ambulation. Patient states her next follow-up with Dr. Sahu will be in 2 months. Patient is currently managed with pregabalin 225 mg twice a day from her primary care doctor and methocarbamol 750 mg 3 times daily from our office. Patient denies any side effects from this medication. Her Michael is [id number]. Its been reviewed and appropriate. Review of Systems: General: No recent weight changes, no fever, no sleep disturbances Respiratory: No cough, no shortness of air, no recurring pulmonary infections Cardiovascular/peripheral vascular: No chest pain, no palpitations, no edema, no shortness of breath Gastrointestinal: No new onset incontinence, normal bowel movements reported Genitourinary: No new onset incontinence Musculoskeletal: Low back pain, right hip pain Psychiatric: [Normal mood/affect] Neurological: [Denies weakness in extremities], [denies balance issues] Objective:: Physical Exam: General: Alert and oriented x3, no acute distress, pleasant and cooperative Lungs: Respirations even and unlabored, symmetrical chest expansion Eyes: PERRL Musculoskeletal: Flexion and extension of lumbar [spine] somewhat guarded secondary to pain, [antalgic gait noted] Neurological: Speech clear, no gross sensory deficit Assessment:: Degenerative disc disease of lumbar spine with lumbar radiculopathy symptoms, right hip pain, osteoarthritis right hip, sacroiliitis, right knee pain Plan:: Patient is experiencing significant pain in her low back/right hip with limited range of motion. I have discussed with the patient in future we may be able to do injections however with her current episodes of vertigo we will hold off on any injective therapy. I will refill the patient's methocarbamol 750 mg 3 times daily and provide a 1 month supply of this medication as well as send in a new prescription of flector patches and provide a box of 30. Patient will return to clinic in 1 month for reevaluation of symptoms, medication refill and plan of care. Patient has been instructed to contact the clinic with any concerns before the next appointment. Dr. Viramontes has reviewed this note and agrees with this plan of care. This note was dictated using voice recognition software and make contain errors or omissions. [facility] Disclaimer: The information contained in this section may have been updated after the patient was seen, as this information can be updated by other users. Medical History Allergic rhinitis, unspecified Atypical angina Carotid artery stenosis Chronic hypoxemic respiratory failure Chronic obstructive lung disease Chronic obstructive pulmonary disease with acute respiratory distress COPD exacerbation Coronary arteriosclerosis Diastolic dysfunction Dyspnea on exertion History of 2019 novel coronavirus disease (COVID-19) History of
[2023-01-20 10:58] VITALS: BP 90/47; PULSE 114; RESP 18; O2SAT 94; BMI 38.0
== END | disposition home or self-care (01) ==
PROVIDERS: PCP Family Medicine; Visit Provider Nurse Practitioner Family
DX: M51.16 Intervertebral disc disorders with radiculopathy, lumbar region (principal); M16.11 Unilateral primary osteoarthritis, right hip; M46.1 Sacroiliitis, not elsewhere classified; M25.561 Pain in right knee
CPT/HCPCS: 99212; G0463

== ENCOUNTER 2023-01-21 13:54 | Outpatient (RCR) | payer MEDICARE, SELFPAY | END 2023-01-21 13:55 | disposition home or self-care (01) | LOC: PT 13:54 | PROVIDERS: PCP Family Medicine; Visit Provider Surgery | DX: R42 Dizziness and giddiness (principal) | CPT/HCPCS: 97140; 97163 ==

== ENCOUNTER → 2023-02-18 13:25 | Outpatient (POV) | payer MEDICARE, SELFPAY ==
[2023-02-18 13:37] VITALS: BP 105/73; PULSE 108; RESP 18; O2SAT 95; BMI 32.4
--- NOTE | 2023-02-18 13:54 | EXP.PAIN.SOA ---
[facility] Pain Management SOAP Note Subjective:: Patient is a pleasant 67-year-old female who presents today for follow-up. We are currently treating the patient for degenerative disc disease of lumbar spine with lumbar radiculopathy symptoms, right hip pain, sacroiliitis, right knee pain. Today she rates her pain a 6 out of 10. Patient does state that she is doing better today. From her last visit she was having significant weakness in her legs due to dizziness and had caused several falls. Patient states she did end up being hospitalized for 3 days after her last visit however they could not pinpoint or give her an exact reason why she was experiencing the symptoms. She states these have since resolved. She states she is now lost up to 30 pounds following her gastric sleeve and that she is scheduled for a follow-up appointment with the bariatric office in 1 week. Patient does state that she is having some pain at her right hip and across her low back and describes it as an aching sensation. Patient is currently managed with pregabalin 225 mg twice a day from her primary care doctor and methocarbamol 750 mg 3 times a day from our office. She denies any side effects from this medication. Her Michael is [id number]. Its been reviewed and appropriate. Review of Systems: General: No recent weight changes, no fever, no sleep disturbances Respiratory: No cough, no shortness of air, no recurring pulmonary infections Cardiovascular/peripheral vascular: No chest pain, no palpitations, no edema, no shortness of breath Gastrointestinal: No new onset incontinence, normal bowel movements reported Genitourinary: No new onset incontinence Musculoskeletal: Low back pain, right hip pain Psychiatric: [Normal mood/affect] Neurological: [Denies weakness in extremities], [denies balance issues] Objective:: Physical Exam: General: Alert and oriented x3, no acute distress, pleasant and cooperative Lungs: Respirations even and unlabored, symmetrical chest expansion Eyes: PERRL Musculoskeletal: Flexion and extension of lumbar [spine] somewhat guarded secondary to pain, [antalgic gait noted] Neurological: Speech clear, no gross sensory deficit Assessment:: Degenerative disc disease of lumbar spine with lumbar radiculopathy symptoms, right hip pain, sacroiliitis, right knee pain Plan:: Patient is experiencing pain across her low back and her hip with limited range of motion of her lumbar spine. I have previously discussed with the patient that she may benefit from a intrathecal pain pump trial in the future however we will wait until she is fully healed from her bariatric surgery. I will refill her methocarbamol 750 mg 3 times a day and send in a new prescription of tramadol 50 mg daily and provide a 1 month supply of these medications. Patient will return to clinic in 1 month for reevaluation of symptoms and plan of care. Patient has been instructed to contact the clinic with any concerns before the next appointment. Dr. Viramontes has reviewed this note and agrees with this plan of care. This note was dictated using voice recognition software and make contain errors or omissions. [facility] Disclaimer: The information contained in this section may have been updated after the patient was seen, as this information can be updated by other users. Medical History (Updated 02/02/23 @ 14:44 by Leatha Reis [facility]) Allergic rhinitis, unspecified Atypical angina Carotid artery stenosis Chronic hypoxemic respiratory failure Chronic obstructive lung disease Chronic obstructive pulmonary disease with acute respiratory distress COPD exacerbation Coronary arteriosclerosis Diastolic dysfunction Dyspnea on exertion History of 2019 novel coronavirus disease (COVID-19) History of smoking 30 or more pack years HTN (hypertension) Hyperlipidemia Hypertensive heart disease without heart failure Hypotension Lung nodule Respiratory symptoms Screening for lung cancer Smoking greater than 30 pack y
== END | disposition home or self-care (01) ==
PROVIDERS: PCP Family Medicine; Visit Provider Nurse Practitioner Family
DX: M51.16 Intervertebral disc disorders with radiculopathy, lumbar region (principal); M25.551 Pain in right hip; M46.1 Sacroiliitis, not elsewhere classified; M25.561 Pain in right knee
CPT/HCPCS: 99212; G0463

== ENCOUNTER 2023-03-02 09:54 | Outpatient (RCR) | payer MEDICARE, SELFPAY | END 2023-03-02 12:00 | disposition home or self-care (01) | LOC: PT 09:54 | PROVIDERS: Visit Provider Family Medicine | DX: J44.9 Chronic obstructive pulmonary disease, unspecified (principal) | CPT/HCPCS: 94626 ==

== ENCOUNTER → 2023-03-22 14:07 | Outpatient (POV) | payer MEDICARE, SELFPAY ==
--- NOTE | 2023-03-22 14:35 | EXP.PAIN.SOA ---
[facility] Pain Management SOAP Note Subjective:: Patient is a pleasant 67-year-old female who presents today for follow-up. We are currently treating the patient for degenerative disc disease of lumbar spine with lumbar radiculopathy symptoms, right hip pain, sacroiliitis, right knee pain. Today she rates her pain a 7 out of 10. Patient denies any new trauma or injury. She does state that she has been more active today so she is experiencing worsening pain. Patient states that she has been up on her feet all day today doing laundry and does state this is flared up her low back pain with radiating symptoms into her hips. Patient does describe this as an aching, throbbing sensation with tingling. She does state that it is worse with increased activity and it does interfere with her ability perform activities of daily living such as cooking and cleaning. Patient does state from our last visit she has officially lost an overall 45 pounds and that she is walking 1 mile per day. Patient states that she is also stopped using her oxygen while she is sitting and that she is scheduled to start pulmonary rehab tomorrow. Patient does state that she is planning on talking to the weight checker regarding her oxygen use coming up. She is currently managed with pregabalin 225 mg twice a day from her PCP and methocarbamol 750 mg 3 times a day from our office. She denies any side effects from this medication. Her Michael is [id number]. Its been reviewed and appropriate. Review of Systems: General: No recent weight changes, no fever, no sleep disturbances Respiratory: No cough, no shortness of air, no recurring pulmonary infections Cardiovascular/peripheral vascular: No chest pain, no palpitations, no edema, no shortness of breath Gastrointestinal: No new onset incontinence, normal bowel movements reported Genitourinary: No new onset incontinence Musculoskeletal: Low back pain, bilateral hip pain Psychiatric: [Normal mood/affect] Neurological: [Denies weakness in extremities], [denies balance issues] Objective:: Physical Exam: General: Alert and oriented x3, no acute distress, pleasant and cooperative Lungs: Respirations even and unlabored, symmetrical chest expansion Eyes: PERRL Musculoskeletal: Flexion and extension of lumbar [spine] somewhat guarded secondary to pain, [antalgic gait noted] extreme point tenderness along bilateral SIs with positive bilateral Gildardo's, Denisha's, Gaenslen's, compression and distraction exam Neurological: Speech clear, no gross sensory deficit Assessment:: Degenerative disc disease of lumbar spine with lumbar radiculopathy symptoms, right hip pain, sacroiliitis, right knee pain Plan:: Patient is experiencing worsening pain in her low back with radiating symptoms to her bilateral hips. Patient did have limited range of motion of her lumbar spine during today's visit along with extreme point tenderness at her bilateral SIs with positive bilateral Gildardo's, Denisha's, Gaenslen's, compression and distraction exam. I have discussed with the patient that she may benefit from bilateral SI injections. Risk and benefits were explained to the patient and she would like to proceed forward with this plan of care. I will also refill the patient's methocarbamol 750 mg 3 times a day and provide a 1 month supply of this medication. Patient will be scheduled for bilateral SI injections. Patient has been instructed to contact the clinic with any concerns before the next appointment. Dr. Viramontes has reviewed this note and agrees with this plan of care. This note was dictated using voice recognition software and make contain errors or omissions. [facility] Disclaimer: The information contained in this section may have been updated after the patient was seen, as this information can be updated by other users. Medical History Allergic rhinitis, unspecified Atypical angina Carotid artery stenosis Chronic hypoxemic resp
[2023-03-22 15:23] VITALS: BP 133/91; PULSE 91; RESP 18; O2SAT 94; BMI 34.3
== END | disposition home or self-care (01) ==
PROVIDERS: PCP Family Medicine; Visit Provider Nurse Practitioner Family
DX: M51.16 Intervertebral disc disorders with radiculopathy, lumbar region (principal); M25.551 Pain in right hip; M46.1 Sacroiliitis, not elsewhere classified; M25.561 Pain in right knee
CPT/HCPCS: 99212; G0463

== ENCOUNTER → 2023-03-22 14:48 | Outpatient (CLI) | payer MEDICARE, SELFPAY ==
--- NOTE | 2023-03-22 14:51 | CT_ITS ---
FINAL REPORT TECHNIQUE: Axial images were obtained from the lung apex to the mid abdomen by computed tomography. This study was performed with techniques to keep radiation doses as low as reasonably achievable (ALARA). Individualized dose reduction techniques using automated exposure control or adjustment of mA and/or kV according to the patient's size were employed. CLINICAL HISTORY: lung cancer screening, smoked for 45 years 3ppd, pt quit one year ago COMPARISON: 03/19/2022 FINDINGS: CHEST CT LOW DOSE CTDI vol (mGy): 2.90 DLP (mGy-cm): 98.21 There is no axillary adenopathy. There is no hilar or mediastinal adenopathy. The heart is normal in size. There is no pericardial or pleural effusion. There is a 2 mm right upper lobe nodule well seen on image 15. There is a 3 mm right upper lobe nodule well seen on image 25, stable. Note is made of mild scarring. Limited images of the upper abdomen reveal postoperative changes from gastric bypass. IMPRESSION: Right upper lobe nodules as detailed above. Lung RADS category 2. Recommend 12 month follow-up low-dose chest CT. Reviewed, Interpreted and Dictated by Lico Winter III, MD Transcribed by Shweta Garzon Authenticated and . [facility]
== END ==
PROVIDERS: PCP Family Medicine; Visit Provider Internal Medicine Pulmonary Disease
DX: Z87.891 Personal history of nicotine dependence; Z12.2 Encounter for screening for malignant neoplasm of respiratory organs
CPT/HCPCS: 71271; 99212; G0463

== ENCOUNTER 2023-03-30 11:31 | Day surgery (SDC) | payer MEDICARE, SELFPAY ==
[2023-03-30 11:45] VITALS: BP 122/78; PULSE 69; RESP 18; TEMP 36.6; O2SAT 96; BMI 34.1
[2023-03-30 11:59] VITALS: BP 115/75; PULSE 78; RESP 18; O2SAT 94
[2023-03-30 12:01] VITALS: BP 115/75; BP 131/79; PULSE 78; PULSE 82; RESP 16; RESP 18; O2SAT 94; O2SAT 96
--- NOTE | 2023-03-30 12:02 | P.PCN_ITS ---
Procedure Date: 03/30/23 Time: 11:50 Anesthesiologist:: Filipe Gorman CRNA Complications:: None Pre-procedure Diagnosis:: Bilateral sacroiliitis Post-procedure Diagnosis:: Same Indications for Procedure:: Patient is a very pleasant 67-year-old female that comes our clinic today for bilateral sacroiliac joint injections of cortisone. Patient has low lumbar back pain as well as bilateral posterior hip pain she describes as constant, dull, aching. Patient has responded well in the past to previous sacroiliac joint injections. She rates her pain 7/10. Patient has difficulty transitioning from sitting to standing. Difficulty ambulating any distance secondary to increased pain. Procedure Details:: Procedure: Bilateral sacroiliac joint injections under fluoroscopy Informed consent was obtained and the risks and benefits of the procedure were explained to the patient.~ The patient was taken to the procedure room and noninvasive monitors were placed including a noninvasive blood pressure cuff and pulse oximeter.~ The patient was placed prone on the procedure table. Both hips were cleansed using Betadine as a cleansing solution. C-arm fluoroscopy was used to view the right sacroiliac joint.~ The skin and subcutaneous tissues were anesthetized using lidocaine 1.5% and a 25-gauge needle.~ After this, a 22-gauge spinal needle was inserted under fluoroscopic guidance into the inferior aspect of the right sacroiliac joint.~ Omnipaque dye was injected and good spread was seen throughout the joint.~ After this, approximately 5 mL of bupivacaine, 0.25% and Depo-Medrol, 40 mg was incrementally injected into the right sacroiliac joint. We then moved to the left sacroiliac joint.~ The skin and subcutaneous tissues were anesthetized using lidocaine 1.5% and a 25-gauge needle.~ After this, a 22- gauge spinal needle was inserted under fluoroscopic guidance into the inferior aspect of the left sacroiliac joint.~ Omnipaque dye was injected and good spread was seen throughout the joint. After this, approximately 5 mL of bupivacaine, 0.25% and Depo-Medrol, 40 mg was incrementally injected into the left sacroiliac joint.~ The patient tolerated the procedure well with no complications. The patient was observed in the Pain Clinic and then was discharged home neurologically intact. Plan and Disposition:: Patient was discharged without incident.
== END 2023-03-30 12:01 | disposition home or self-care (01) ==
PROVIDERS: PCP Family Medicine; Visit Provider Nurse Anesthetist, Certified Registered
DX: M46.1 Sacroiliitis, not elsewhere classified (principal)
CPT/HCPCS: 27096; G0260; J1040

== ENCOUNTER → 2023-04-19 10:58 | Outpatient (POV) | payer MEDICARE, SELFPAY ==
[2023-04-19 11:29] VITALS: BP 103/74; PULSE 111; RESP 20; O2SAT 93; BMI 31.7
--- NOTE | 2023-04-19 11:54 | A.OFFVIS_ITS ---
[facility] Pain Management SOAP Note Subjective:: This patient is a very pleasant 67-year-old female comes our clinic today for follow-up visit after receiving bilateral sacroiliac joint injections on 03/30/2023. Patient reports 90+ percent improvement lasting 3 weeks after which time her pain returned however not in entirety. She complains of some low back pain that she describes as constant, dull, intermittent, aching. She rates it 3/10. Patient's main complaint today is posterior cervical neck pain. Patient has difficulty with flexion, extension, left and right rotation. Patient complains not being able to look left or right when driving. Patient complains of some radicular symptoms in the bilateral arms at times. However, her main complaint is posterior cervical neck pain I recommend cervical MRI to further discern pathology. I suspect patient has some cervical facet arthropathy/spondylosis cervical spine. Patient is also taking Robaxin-750 milligrams 1 p.o. 3 times daily. Her Michael #[id number] been reviewed and appropriate. Objective:: Patient is awake alert [place] x3. In no acute distress. Flexion-extension lumbar spine somewhat guarded secondary to pain. Deep tendon reflexes upper and lower extremities normal. Motor strength upper and lower extremities normal. There is no gross sensory deficit. Gait is normal. Assessment:: Degenerative disc lumbar spine multilevels. Lumbar radiculopathy. Lumbar spon dylosis. Bilateral sacroiliitis. Posterior cervical neck pain. Cervical radiculopathy. Plan:: We will send the patient for cervical MRI. She will return to see us for review to further discern pathology in the cervical spine. Patient does not need Robaxin refill at this time. [facility] Disclaimer: The information contained in this section may have been updated after the patient was seen, as this information can be updated by other users. Medical History Allergic rhinitis, unspecified Atypical angina Carotid artery stenosis Chronic hypoxemic respiratory failure Chronic obstructive lung disease Chronic obstructive pulmonary disease with acute respiratory distress COPD exacerbation COPD mixed type Coronary arteriosclerosis Diastolic dysfunction Dyspnea on exertion History of 2019 novel coronavirus disease (COVID-19) History of smoking 30 or more pack years HTN (hypertension) Hyperlipidemia Hypertensive heart disease without heart failure Hypotension Lung nodule Respiratory symptoms Screening for lung cancer Smoking greater than 30 pack years Vertigo Surgical History History of bladder suspension procedure History of gastric bypass Hx of appendectomy Hx of tubal ligation Family History Other Asthma Cancer Coronary artery disease Diabetes Heart attack Hyperlipidemia Hypertension Thyroid disorder Social History Smoking Status: Former smoker tobacco type: cigarettes packs per day: 1 alcohol intake: never counseling provided: none substance use type: denies use current occupational status: other Travel in the last 8 weeks: None household members: spouse housing: house caffeine: Yes
== END ==
PROVIDERS: PCP Family Medicine; Visit Provider Nurse Anesthetist, Certified Registered
DX: M51.16 Intervertebral disc disorders with radiculopathy, lumbar region (principal); M47.26 Other spondylosis with radiculopathy, lumbar region; M46.1 Sacroiliitis, not elsewhere classified; M54.12 Radiculopathy, cervical region
CPT/HCPCS: 99212; G0463

== ENCOUNTER 2023-04-21 10:48 | Outpatient (CLI) | payer MEDICARE, SELFPAY ==
[2023-04-21 11:03] VITALS: BP 142/63; PULSE 89; RESP 19; TEMP 36.6; O2SAT 94
== END 2023-04-21 11:03 | disposition home or self-care (01) ==
LOC: INF 10:49
PROVIDERS: PCP Family Medicine; Visit Provider Nurse Practitioner Obstetrics & Gynecology
DX: M85.89 Other specified disorders of bone density and structure, multiple sites (principal)
CPT/HCPCS: 96372; J0897

== ENCOUNTER → 2023-05-05 10:26 | Outpatient (CLI) | payer MEDICARE, SELFPAY ==
--- NOTE | 2023-05-05 10:31 | MR_ITS ---
FINAL REPORT CLINICAL HISTORY: NECK PAIN. HEADACHE. POPPING IN NECK FINDINGS: Multiplanar MR imaging of the cervical spine was performed without contrast. On the sagittal T2-weighted images, disc degeneration is seen at multiple levels. There is no evidence of fracture. The vertebral alignment is normal. The cervical spinal cord has an unremarkable appearance without evidence of mass, edema or syrinx. The cervicomedullary junction is normal. C2-3: There is no significant canal stenosis or neural foraminal narrowing. C3-4: There is no significant canal stenosis or neural foraminal narrowing. C4-5: There is no significant canal stenosis or neural foraminal narrowing. C5-6: A disc bulge is present with uncovertebral osteophytes. Severe right and moderate left neural foraminal narrowing is seen. There is mild central canal stenosis with an AP diameter of the thecal sac of 9 mm. C6-7: A disc bulge is present. There is mild bilateral foraminal narrowing. C7-T1: There is no significant canal stenosis or neural foraminal narrowing. IMPRESSION: C5-6 disc bulge and uncovertebral osteophytes with severe right and moderate left neural foraminal narrowing and mild central canal stenosis. C6-7 disc bulge with mild neural foraminal narrowing. Authenticated and ERN
== END ==
PROVIDERS: PCP Family Medicine; Visit Provider Nurse Practitioner Family
DX: M54.2 Cervicalgia (principal)
CPT/HCPCS: 72141; 76376

== ENCOUNTER → 2023-05-12 13:30 | Outpatient (POV) | payer MEDICARE, SELFPAY ==
--- NOTE | 2023-05-12 13:59 | EXP.PAIN.SOA ---
[facility] Pain Management SOAP Note Subjective:: Patient is a pleasant 67-year-old female who presents today for follow-up of cervical MRI. We are currently treating the patient for degenerative disc disease of lumbar spine with lumbar radiculopathy symptoms, right hip pain, osteoarthritis right hip, sacroiliitis, right knee pain. Today she rates her pain a 8 out of 10. Patient denies any new trauma or injury from her last visit. She does states she is experiencing continued pain in and around her neck and denies any radiating symptoms into her arms. She does state the pain is an aching, throbbing sensation that is worse with increased activity or certain movements such as bending, twisting or lifting. She does states that she has very limited range of motion of her neck and that the pain does interfere with her ability perform activities of daily living such as cooking and cleaning. Patient did undergo bariatric surgery and has gone from 245 pounds down to 190. Patient has been spending the last 8 to 9 weeks exercising almost daily. Patient does state that she works with a strainer tender for her stomach twice a week. She states she does have a follow-up appointment with the bariatric surgeon coming up in May. She states currently that he has her on 90 mg of protein 3 times a day. Patient does only use her oxygen while she is exercising and states she has not felt this good for years. She states that if we can provide any additional improvement for her neck pain that she is interested. She is currently managed with pregabalin 225 mg twice a day from her primary care doctor and methocarbamol 750 mg 3 times daily from our office. She states she does not need any refills at this time on her muscle relaxer. Her Michael has been reviewed and is appropriate. Review of Systems: General: No recent weight changes, no fever, no sleep disturbances Respiratory: No cough, no shortness of air, no recurring pulmonary infections Cardiovascular/peripheral vascular: No chest pain, no palpitations, no edema, no shortness of breath Gastrointestinal: No new onset incontinence, normal bowel movements reported Genitourinary: No new onset incontinence Musculoskeletal: Neck pain Psychiatric: [Normal mood/affect] Neurological: [Denies weakness in extremities], [denies balance issues] Objective:: Physical Exam: General: Alert and oriented x3, no acute distress, pleasant and cooperative Lungs: Respirations even and unlabored, symmetrical chest expansion Eyes: PERRL Musculoskeletal: Flexion and extension of cervical [spine] somewhat guarded secondary to pain, [antalgic gait noted] positive Kemps test Neurological: Speech clear, no gross sensory deficit FINAL REPORT CLINICAL HISTORY: NECK PAIN. HEADACHE. POPPING IN NECK FINDINGS: Multiplanar MR imaging of the cervical spine was performed without contrast. On the sagittal T2-weighted images, disc degeneration is seen at multiple levels. There is no evidence of fracture. The vertebral alignment is normal. The cervical spinal cord has an unremarkable appearance without evidence of mass, edema or syrinx. The cervicomedullary junction is normal. C2-3: There is no significant canal stenosis or neural foraminal narrowing. C3-4: There is no significant canal stenosis or neural foraminal narrowing. C4-5: There is no significant canal stenosis or neural foraminal narrowing. C5-6: A disc bulge is present with uncovertebral osteophytes. Severe right and moderate left neural foraminal narrowing is seen. There is mild central canal stenosis with an AP diameter of the thecal sac of 9 mm. C6-7: A disc bulge is present. There is mild bilateral foraminal narrowing. C7-T1: There is no significant canal stenosis or neural foraminal narrowing. IMPRESSION: C5-6 disc bulge and uncovertebral osteophytes with severe right and moderate left neural foraminal narrowing and mild central canal stenosis. C6-7 disc bulge with mild neural foramina
[2023-05-12 14:48] VITALS: BP 127/74; PULSE 99; RESP 19; O2SAT 92; BMI 32.5
== END ==
PROVIDERS: PCP Family Medicine; Visit Provider Nurse Practitioner Family
DX: M50.10 Cervical disc disorder with radiculopathy, unspecified cervical region (principal); M51.16 Intervertebral disc disorders with radiculopathy, lumbar region; M16.11 Unilateral primary osteoarthritis, right hip; M25.551 Pain in right hip; M46.1 Sacroiliitis, not elsewhere classified; M25.561 Pain in right knee
CPT/HCPCS: 99212; G0463

== ENCOUNTER → 2023-06-30 09:34 | Outpatient (POV) | payer MEDICARE, SELFPAY ==
--- NOTE | 2023-06-30 10:00 | EXP.PAIN.SOA ---
[facility] Pain Management SOAP Note Subjective:: Patient is a pleasant 67-year-old female who presents today for follow-up. We are currently treating the patient for degenerative disc disease of lumbar spine with lumbar radiculopathy symptoms, right hip pain, osteoarthritis right hip, sacroiliitis, right knee pain, degenerative disc disease of cervical spine with cervical radiculopathy symptoms, cervical spondylosis, lumbar facet arthropathy and lumbar spondylosis. Today she rates her pain a 7 out of 10. Patient states that her neck is still giving her issues however our last injection request has still been pending. She states today her pain is more in her mid to low back and that it does radiate onto her sides however does not go into her legs. Patient does state this is an aching, throbbing sensation that is worse with increased activity or movements such as bending, twisting or lifting. Patient states the pain does interfere with her ability perform activities of daily living such as cooking and cleaning. Patient has had bariatric surgery and continues to lose weight. She is now 181 pounds and is doing well. Patient has been able to come off her continuous oxygen and does go to physical therapy and exercise almost daily. Patient states this week she will of gone 5 times. She states she is very active and this time of year is increasing. She states that her brother recently experienced a severe stroke and is up at [facility] and that she has been going daily to visit him. She states she is feeling better with this however the continued pain in her low back is very bothersome. Patient has tried [id number] medications along with heat and ice and topicals with no relief. Patient is currently prescribed pregabalin 225 mg twice a day from her primary care provider and methocarbamol 750 mg 3 times a day from our office. Her Michael has been reviewed and is appropriate. Review of Systems: General: No recent weight changes, no fever, no sleep disturbances Respiratory: No cough, no shortness of air, no recurring pulmonary infections Cardiovascular/peripheral vascular: No chest pain, no palpitations, no edema, no shortness of breath Gastrointestinal: No new onset incontinence, normal bowel movements reported Genitourinary: No new onset incontinence Musculoskeletal: Low back pain Psychiatric: [Normal mood/affect] Neurological: [Denies weakness in extremities], [denies balance issues] Objective:: Physical Exam: General: Alert and oriented x3, no acute distress, pleasant and cooperative Lungs: Respirations even and unlabored, symmetrical chest expansion Eyes: PERRL Musculoskeletal: Flexion and extension of lumbar [spine] somewhat guarded secondary to pain, [antalgic gait noted] positive Kemps test Neurological: Speech clear, no gross sensory deficit FINDINGS: Multiplanar MR imaging of the lumbar spine was performed without contrast. On the sagittal T2-weighted images, disc degeneration is seen throughout. There is endplate changes several levels. There is mild retrolisthesis of L2 on L3. There is mild leftward curvature. There is no evidence of fracture. The conus has an unremarkable appearance. L1-2: There is an annular bulge, facet arthropathy and vertebral osteophytes. There is mild bilateral neural foraminal narrowing. L2-3: There is an annular bulge, facet arthropathy and vertebral osteophytes. There is a small left foraminal disc protrusion. There is moderate right and mild left neural foraminal narrowing. L3-4: There is an annular bulge and facet arthropathy. There is mild bilateral neural foraminal narrowing. L4-5: There is an annular bulge and facet arthropathy. There is mild left neural foraminal narrowing. L5-S1: An annular bulge is present. There is no significant central canal stenosis or neural foraminal narrowing. There is mild spurring of the SI joints. IMPRESSION: Multilevel degenerative disc disease with areas of marcia
[2023-06-30 12:15] VITALS: BP 135/78; PULSE 85; RESP 18; O2SAT 92; BMI 31.0
== END ==
PROVIDERS: PCP Family Medicine; Visit Provider Nurse Practitioner Family
DX: M50.10 Cervical disc disorder with radiculopathy, unspecified cervical region (principal); M51.16 Intervertebral disc disorders with radiculopathy, lumbar region; M16.11 Unilateral primary osteoarthritis, right hip; M25.551 Pain in right hip; M46.1 Sacroiliitis, not elsewhere classified; M25.561 Pain in right knee; M47.22 Other spondylosis with radiculopathy, cervical region; M47.26 Other spondylosis with radiculopathy, lumbar region
CPT/HCPCS: 99212; G0463

== ENCOUNTER 2023-08-03 12:56 | Outpatient (CLI) | payer MEDICARE, SELFPAY ==
--- NOTE | 2023-08-03 13:01 | MM_ITS ---
PROCEDURE INFORMATION: Exam: MG Bilateral Screening 3D Mammography Exam date and time: 08/03/2023 1:23 PM Age: 67 years old Clinical indication: Screening mammogram TECHNIQUE: Imaging protocol: Bilateral Screening tomosynthesis and 2D mammography including computer-aided detection (CAD) when performed. COMPARISON: 1. MG MM DIG SCREENING MAMM BI W/CAD 07/28/2022 10:52 AM 2. MG MM DIG SCREENING MAMM BI W/CAD 07/18/2021 10:47 AM 3. MG MM DIG SCREENING MAMM BI W/CAD 05/28/2020 1:05 PM 4. MG MM DIG SCREENING MAMM BI W/CAD 05/11/2019 10:36 AM FINDINGS: MAMMOGRAPHY: Breast composition: There are scattered areas of fibroglandular density. Mass: Stable benign-appearing subcentimeter nodules are present in the right breast. No new or morphologically suspicious nodule has developed to suggest malignancy. Architectural distortion: No new or suspicious architectural distortion. Calcifications: No new or suspicious calcifications are present Asymmetric density: No new or suspicious asymmetric density is present Skin thickening: None. Axillary adenopathy: None. IMPRESSION: No mammographic evidence of malignancy. Recommend annual screening mammography unless otherwise clinically indicated. ASSESSMENT: BI-RADS category 2: Benign
== END 2023-08-03 23:59 ==
LOC: RAD 12:56
PROVIDERS: PCP Family Medicine; Visit Provider Family Medicine
DX: Z12.31 Encounter for screening mammogram for malignant neoplasm of breast (principal)
CPT/HCPCS: 77063; 77067

== ENCOUNTER → 2023-08-06 08:39 | Outpatient (POV) | payer MEDICARE, SELFPAY ==
--- NOTE | 2023-08-06 09:32 | EXP.PAIN.SOA ---
[facility] Pain Management SOAP Note Subjective:: Patient is a pleasant 67-year-old female who presents today for follow-up. We are currently treating the patient for degenerative disc disease of cervical and lumbar spine with cervical and lumbar radiculopathy symptoms, right hip pain/osteoarthritis, sacroiliitis, right knee pain, cervical and lumbar facet arthropathy and spondylosis. Today she rates her pain a 7 out of 10. Patient states her pain in her neck is killing her. Patient does describe this as a constant aching, throbbing sensation that stays all in her neck. She states that she has very limited range of motion and even while driving cannot turn her head due to worsening pain. Patient states the pain is interfering with her ability perform activities of daily living such as cooking and cleaning. Patient is interested in injection therapy. Patient is currently prescribed pregabalin 225 mg twice a day from her PCP and methocarbamol 750 mg 3 times a day from our office. Patient denies any side effects from these medications. Her Michael has been reviewed and is appropriate. Review of Systems: General: No recent weight changes, no fever, no sleep disturbances Respiratory: No cough, no shortness of air, no recurring pulmonary infections Cardiovascular/peripheral vascular: No chest pain, no palpitations, no edema, no shortness of breath Gastrointestinal: No new onset incontinence, normal bowel movements reported Genitourinary: No new onset incontinence Musculoskeletal: Neck pain Psychiatric: [Normal mood/affect] Neurological: [Denies weakness in extremities], [denies balance issues] Objective:: Physical Exam: General: Alert and oriented x3, no acute distress, pleasant and cooperative Lungs: Respirations even and unlabored, symmetrical chest expansion Eyes: PERRL Musculoskeletal: Flexion and extension of cervical [spine] somewhat guarded secondary to pain, [antalgic gait noted] positive Kemps exam Neurological: Speech clear, no gross sensory deficit FINDINGS: Multiplanar MR imaging of the cervical spine was performed without contrast. On the sagittal T2-weighted images, disc degeneration is seen at multiple levels. There is no evidence of fracture. The vertebral alignment is normal. The cervical spinal cord has an unremarkable appearance without evidence of mass, edema or syrinx. The cervicomedullary junction is normal. C2-3: There is no significant canal stenosis or neural foraminal narrowing. C3-4: There is no significant canal stenosis or neural foraminal narrowing. C4-5: There is no significant canal stenosis or neural foraminal narrowing. C5-6: A disc bulge is present with uncovertebral osteophytes. Severe right and moderate left neural foraminal narrowing is seen. There is mild central canal stenosis with an AP diameter of the thecal sac of 9 mm. C6-7: A disc bulge is present. There is mild bilateral foraminal narrowing. C7-T1: There is no significant canal stenosis or neural foraminal narrowing. IMPRESSION: C5-6 disc bulge and uncovertebral osteophytes with severe right and moderate left neural foraminal narrowing and mild central canal stenosis. C6-7 disc bulge with mild neural foraminal narrowing. Authenticated and ERN Assessment:: Degenerative disc disease of cervical and lumbar spine with cervical and lumbar radiculopathy symptoms, cervical and lumbar facet arthropathy and cervical and lumbar ?, chronic pain syndrome, sacroiliitis, right knee pain Plan:: Patient is experiencing significant pain in her neck with limited range of motion and a positive Kemps test. Patient has very significant findings on her last imaging that did show multilevel bone spurs severe right and moderate left narrowing with central canal stenosis and multilevel disc bulge. I have discussed with the patient due to her continued and chronic pain in her neck that she may benefit from a cervical medial branch block bilaterally. Risk and benefits were discussed with the patient and she would like to proceed forward with this plan of care. If she does have significant improvement following this injection we will plan on repeating the block to proceed forward with the cervical RFA at a later date. Patient will be submitted to insurance for the cervical medial branch block bilaterally C5-C6 and C6-C7 under fluoroscopy. Patient is not on any blood thinners. Patient has been instructed to contact the clinic with any concerns before the next appointment. Dr. Viramontes has reviewed this note and agrees with this plan of care. This note was dictated using voice recognition software and make contain errors or omissions. [facility] Disclaimer: The information contained in this section may have been updated after the patient was seen, as this information can be updated by other users. Medical History Allergic rhinitis, unspecified Atypical angina Carotid artery stenosis Chronic hypoxemic respiratory failure Chronic obstructive lung disease Chronic obstructive pulmonary disease with acute respiratory distress COPD exacerbation COPD mixed type Coronary arteriosclerosis Diastolic dysfunction Dyspnea on exertion History of 2019 novel coronavirus disease (COVID-19) History of smoking 30 or more pack years HTN (hypertension) Hyperlipidemia Hypertensive heart disease without heart failure Hypotension Lung nodule Respiratory symptoms Screening for lung cancer Smoking greater than 30 pack years Vertigo Surgical History History of bladder suspension procedure History of gastric bypass Hx of appendectomy Hx of tubal ligation Family History Other Asthma Cancer Coronary artery disease Diabetes Heart attack Hyperlipidemia Hypertension Thyroid disorder Social History Smoking Status: Former smoker tobacco type: cigarettes packs per day: 1 alcohol intake: never counseling provided: none substance use type: denies use current occupational status: retired Travel in the last 8 weeks: None household members: spouse housing: house caffeine: Yes
[2023-08-06 09:37] VITALS: BP 121/72; PULSE 78; RESP 18; O2SAT 91
== END ==
LOC: SC.PAIN 08:40
PROVIDERS: PCP Family Medicine; Visit Provider Nurse Practitioner Family
DX: M47.892 Other spondylosis, cervical region (principal); M50.122 Cervical disc disorder at C5-C6 level with radiculopathy; M51.16 Intervertebral disc disorders with radiculopathy, lumbar region; M47.26 Other spondylosis with radiculopathy, lumbar region; G89.4 Chronic pain syndrome; M46.1 Sacroiliitis, not elsewhere classified; M25.561 Pain in right knee
CPT/HCPCS: 99212; G0463

== ENCOUNTER 2023-08-10 08:28 | Day surgery (SDC) | payer MEDICARE, SELFPAY ==
[2023-08-10 08:47] VITALS: BP 116/78; PULSE 78; RESP 16; TEMP 36.6; O2SAT 96
--- NOTE | 2023-08-10 09:08 | P.PCN_ITS ---
Procedure Date: 08/10/23 Time: 09:00 Anesthesiologist:: Filipe Gorman CRNA Complications:: None Pre-procedure Diagnosis:: Degenerative disc lumbar spine multilevels. Lumbar radiculopathy. Lumbar spondylosis. Multilevel lumbar facet arthropathy. Post-procedure Diagnosis:: Same. Indications for Procedure:: Very pleasant 67-year-old female comes to clinic today for L2-3, L3-4 bilateral medial branch blocks/facet injections. Patient reports thoracolumbar pain that she describes as constant, dull, aching. Patient has difficulty with flexion, extension, left and right rotation. She rates her pain 6/10 Procedure Details:: Informed consent was obtained and the risk and benefits of the procedure was explained to the patient. Patient was taken to the procedure room where noninvasive monitors were placed, including noninvasive blood pressure cuff as well as pulse oximeter. The area over the lumbar spine was cleansed using chlorhexidine as a cleansing solution. I anesthetized the skin and subcutaneous tissues with 1% Lidocaine. I placed 22-gauge spinal needles into the facet joint/ medial branches of L2-3, L3-4 bilaterally. Needle placement was confirmed with fluoroscopy. After confirmation of needle placement, each site was injected with 1 mL of 1% lidocaine and 0.25 % Marcaine and 10 mg of Depo-Medrol. A total of 80 mg of depo medrol was used for bilateral medial branch blocks of L2-3, L3- 4] bilaterally. Patient tolerated the procedure without difficulty. There were no complications. Plan and Disposition:: Patient was discharged without incident.
[2023-08-10] MEDS: LIDOCAINE 1% 5ML PF VIAL 5 ML (09:09)
[2023-08-10] MEDS: BUPIVACAINE 0.25% 10ML INJ 25 MG IJ (09:09)
[2023-08-10] MEDS: methylPREDNISolone ACETATE 80MG/ML VIAL 80 MG (09:09)
[2023-08-10 09:10] VITALS: BP 104/63; PULSE 77; RESP 18; O2SAT 93
[2023-08-10 09:12] VITALS: BP 104/63; PULSE 77; RESP 18; O2SAT 93
[2023-08-10 09:20] VITALS: BP 101/66; PULSE 78; RESP 16; O2SAT 96
== END 2023-08-10 09:20 | disposition home or self-care (01) ==
PROVIDERS: PCP Family Medicine; Visit Provider Nurse Anesthetist, Certified Registered
DX: M47.896 Other spondylosis, lumbar region (principal); M51.16 Intervertebral disc disorders with radiculopathy, lumbar region
CPT/HCPCS: 64493; 64494; J1040

== ENCOUNTER → 2023-08-27 09:27 | Outpatient (POV) | payer MEDICARE, SELFPAY ==
--- NOTE | 2023-08-27 10:12 | EXP.PAIN.SOA ---
[facility] Pain Management SOAP Note Subjective:: Patient is a pleasant 67-year-old female who presents today for follow-up of her first lumbar medial branch block bilaterally L2-L3 and L3-L4 on 08/10/2023. We are currently treating the patient for degenerative disc disease of cervical and lumbar spine with cervical and lumbar radiculopathy symptoms, right hip pain/osteoarthritis, sacroiliitis, right knee pain, cervical and lumbar arthropathy and spondylosis. Today she rates her pain a 2 out of 10 however states that it will go up much higher to a 6 out of 10 with increased ambulation or activity. Patient does state that she had 100% relief following this initial injection for a full week. Patient states that the pain did slowly start to come back and that it is more prominent on the left side versus the right. Patient does state that yesterday was a bad day and that she has been taking Tylenol arthritis like crazy due to the worsening pain. Patient does state the pain interferes with her ability perform activities of daily living such as cooking and cleaning. Patient is currently managed with pregabalin 225 mg twice a day from her primary care provider and methocarbamol 750 mg 3 times a day from our office. Patient denies any side effects from this medication. Her Michael has been reviewed and is appropriate. Review of Systems: General: No recent weight changes, no fever, no sleep disturbances Respiratory: No cough, no shortness of air, no recurring pulmonary infections Cardiovascular/peripheral vascular: No chest pain, no palpitations, no edema, no shortness of breath Gastrointestinal: No new onset incontinence, normal bowel movements reported Genitourinary: No new onset incontinence Musculoskeletal: Low back pain Psychiatric: [Normal mood/affect] Neurological: [Denies weakness in extremities], [denies balance issues] Objective:: Physical Exam: General: Alert and oriented x3, no acute distress, pleasant and cooperative Lungs: Respirations even and unlabored, symmetrical chest expansion Eyes: PERRL Musculoskeletal: Flexion and extension of lumbar [spine] somewhat guarded secondary to pain, [antalgic gait noted] positive Kemps test Neurological: Speech clear, no gross sensory deficit Assessment:: Degenerative disc disease of cervical and lumbar spine with cervical and lumbar radiculopathy symptoms, right hip pain/osteoarthritis, sacroiliitis, right knee pain, cervical and lumbar facet arthropathy and spondylosis Plan:: Patient is starting to experience worsening pain in her low back with limited range of motion and a positive Kemps test. Patient did have a successful first lumbar medial branch block with 100% relief lasting 1 week. I have discussed with the patient that she may benefit from a repeat lumbar medial branch block. Risk and benefits were discussed with patient and she would like to proceed forward with this plan of care. If the patient does have another successful lumbar medial branch block we will plan on proceeding forward with the lumbar RFA at a later date. Patient has tried and failed conservative treatment such as oral medication, heat and ice, topicals, physical therapy, at home stretching exercise. Patient will be scheduled for her second lumbar medial branch block bilaterally L2-3 and L3-L4 under fluoroscopy. Patient has been instructed to contact the clinic with any concerns before the next appointment. Dr. Viramontes has reviewed this note and agrees with this plan of care. This note was dictated using voice recognition software and make contain errors or omissions. [facility] Disclaimer: The information contained in this section may have been updated after the patient was seen, as this information can be updated by other users. Medical History Allergic rhinitis, unspecified Atypical angina Carotid artery stenosis Chronic hypoxemic respiratory failure Chronic obstructive lung disease Chronic obstructive pulmonary disease with acute respiratory distress COPD exacerbation COPD mixed type Coronary arteriosclerosis Diastolic dysfunction Dyspnea on exertion History of 2019 novel coronavirus disease (COVID-19) History of smoking 30 or more pack years HTN (hypertension) Hyperlipidemia Hypertensive heart disease without heart failure Hypotension Lung nodule Respiratory symptoms Screening for lung cancer Smoking greater than 30 pack years [facility] History History of bladder suspension procedure History of gastric bypass Hx of appendectomy Hx of tubal ligation Family History Other Asthma Cancer Coronary artery disease Diabetes Heart attack Hyperlipidemia Hypertension Thyroid disorder Social History Smoking Status: Former smoker tobacco type: cigarettes packs per day: 1 alcohol intake: never counseling provided: none substance use type: denies use current occupational status: retired Travel in the last 8 weeks: None household members: spouse housing: house caffeine: Yes
[2023-08-27 11:43] VITALS: BP 150/86; PULSE 102; RESP 20; O2SAT 97; BMI 30.7
== END | disposition home or self-care (01) ==
PROVIDERS: PCP Family Medicine; Visit Provider Nurse Practitioner Family
DX: M47.896 Other spondylosis, lumbar region (principal); M51.16 Intervertebral disc disorders with radiculopathy, lumbar region; M50.10 Cervical disc disorder with radiculopathy, unspecified cervical region; M16.11 Unilateral primary osteoarthritis, right hip; M25.551 Pain in right hip; M46.1 Sacroiliitis, not elsewhere classified; M25.561 Pain in right knee
CPT/HCPCS: 99212; G0463

== ENCOUNTER 2023-09-29 12:50 | Outpatient (CLI) | payer MEDICARE, SELFPAY ==
[2023-09-29] MEDS: ALBUTEROL 0.083% 2.5 MG/3 ML NEB IH (13:45)
== END 2023-09-29 23:59 ==
LOC: RT 12:51
PROVIDERS: PCP Family Medicine; Visit Provider Internal Medicine Pulmonary Disease
DX: R06.09 Other forms of dyspnea (principal); J44.9 Chronic obstructive pulmonary disease, unspecified; F17.210 Nicotine dependence, cigarettes, uncomplicated
CPT/HCPCS: 94060; 94618

== ENCOUNTER 2023-10-13 13:35 | Outpatient (POV) | payer MEDICARE, SELFPAY ==
--- NOTE | 2023-10-13 15:44 | A.OFFVIS_ITS ---
[facility] Pain Management SOAP Note Subjective:: Patient is a pleasant 68-year-old female who presents today for follow-up. She does state her pain today is a 10 out of 10. Patient states that she has started to experience a catching sensation along the left side of her low back down from her ribs going on for the last month. She describes it as a sharp shooting sensation that radiates to the side. She does state the pain is debilitating and is worse with certain movements such as bending or twisting. Patient is interested in any help we may be able to provide as it does interfere with her ability to perform activities of daily living. Patient does state that she is scheduled for her cervical injection this coming Wednesday. Patient does also state from our last visit she has been back to see her gastric surgeon because she felt like her weight was stalling out at 170 pounds. She does state that they made alterations to her current medications with decreasing her pregabalin and Seroquel. Patient does state that this has seemed to improve her weight loss. She now weighs 165 pounds. Her Michael has been reviewed and is ap propriate. She is managed with methocarbamol 750 mg 3 times a day from our office but she does not need any refills on this or her cream. Review of Systems: General: No recent weight changes, no fever, no sleep disturbances Respiratory: No cough, no shortness of air, no recurring pulmonary infections Cardiovascular/peripheral vascular: No chest pain, no palpitations, no edema, no shortness of breath Gastrointestinal: No new onset incontinence, normal bowel movements reported Genitourinary: No new onset incontinence Musculoskeletal: Low back pain left-sided Psychiatric: [Normal mood/affect] Neurological: [Denies weakness in extremities], [denies balance issues] Objective:: Physical Exam: General: Alert and oriented x3, no acute distress, pleasant and cooperative Lungs: Respirations even and unlabored, symmetrical chest expansion Eyes: PERRL Musculoskeletal: Flexion and extension of lumbar [spine] somewhat guarded secondary to pain, [antalgic gait noted] positive Kemps test Neurological: Speech clear, no gross sensory deficit FINDINGS: Multiplanar MR imaging of the lumbar spine was performed without contrast. On the sagittal T2-weighted images, disc degeneration is seen throughout. There is endplate changes several levels. There is mild retrolisthesis of L2 on L3. There is mild leftward curvature. There is no evidence of fracture. The conus has an unremarkable appearance. L1-2: There is an annular bulge, facet arthropathy and vertebral osteophytes. There is mild bilateral neural foraminal narrowing. L2-3: There is an annular bulge, facet arthropathy and vertebral osteophytes. There is a small left foraminal disc protrusion. There is moderate right and mild left neural foraminal narrowing. L3-4: There is an annular bulge and facet arthropathy. There is mild bilateral neural foraminal narrowing. L4-5: There is an annular bulge and facet arthropathy. There is mild left neural foraminal narrowing. L5-S1: An annular bulge is present. There is no significant central canal stenosis or neural foraminal narrowing. There is mild spurring of the SI joints. IMPRESSION: Multilevel degenerative disc disease with areas of neural foraminal narrowing. Small left foraminal disc protrusion at L2-L3 without significant central canal stenosis. Reviewed, Interpreted and Dictated by Lico Winter III, MD Transcribed by Ace Nuñez Authenticated and [facility] Assessment:: Degenerative disc disease of cervical and lumbar spine with cervical and lumbar radiculopathy symptoms, lumbar facet arthropathy, cervical facet arthropathy and spondylosis, right hip pain/osteoarthritis, sacroiliitis Plan:: Patient is experiencing significant pain in her low back with limited range of motion and a positive Kemps test. I have discussed with the patient that it does appear that it may be axial pain related to her facet joints. I have discussed with the patient that she may benefit from a lumbar medial branch block left-sided. Patient is already scheduled for a lumbar medial branch blocks bilaterally L2-L3 and L3-4 under fluoroscopy coming up in about 2-1/2 weeks. I have counseled the patient that this may help improve her overall pain in this area along the left side. I have also discussed with the patient to speak to our provider on Wednesday when she comes in for her cervical injection on how the pain is there on along the left side. Patient has also been counseled that it may be beneficial to try trigger point injections however she does state that she feels like it is deeper. We will follow-up with this on future visits. Patient has been instructed to contact the clinic with any concerns before the next appointment. Dr. Viramontes has reviewed this note and agrees with this plan of care. This note was dictated using voice recognition software and make contain errors or omissions. [facility] Disclaimer: The information contained in this section may have been updated after the patient was seen, as this information can be updated by other users. Medical History Allergic rhinitis, unspecified Atypical angina Carotid artery stenosis Chronic hypoxemic respiratory failure Chronic obstructive lung disease Chronic obstructive pulmonary disease with acute respiratory distress COPD exacerbation COPD mixed type Coronary arteriosclerosis Diastolic dysfunction Dyspnea on exertion History of 2019 novel coronavirus disease (COVID-19) History of smoking 30 or more pack years HTN (hypertension) Hyperlipidemia Hypertensive heart disease without heart failure Hypotension Lung nodule Respiratory symptoms Screening for lung cancer Smoking greater than 30 pack years She quit smoking almost a year ago [facility] History History of bladder suspension procedure History of gastric bypass 08/31/2023: BMI 27.6 Hx of appendectomy Hx of tubal ligation Family History Other Asthma Cancer Coronary artery disease Diabetes Heart attack Hyperlipidemia Hypertension Thyroid disorder Social History Smoking Status: Former smoker tobacco type: cigarettes packs per day: 1 alcohol intake: never counseling provided: none substance use type: denies use current occupational status: other Travel in the last 8 weeks: None household members: spouse housing: house caffeine: Yes
[2023-10-13 15:57] VITALS: BP 103/71; PULSE 93; RESP 20; O2SAT 90; BMI 30.7
== END 2023-10-13 23:59 ==
PROVIDERS: PCP Family Medicine; Visit Provider Nurse Practitioner Family
DX: M50.10 Cervical disc disorder with radiculopathy, unspecified cervical region (principal); M51.16 Intervertebral disc disorders with radiculopathy, lumbar region; M47.26 Other spondylosis with radiculopathy, lumbar region; M47.22 Other spondylosis with radiculopathy, cervical region; M16.11 Unilateral primary osteoarthritis, right hip; M25.551 Pain in right hip; M46.1 Sacroiliitis, not elsewhere classified
CPT/HCPCS: 99212; G0463

== ENCOUNTER 2023-10-15 09:59 | Day surgery (SDC) | payer MEDICARE, SELFPAY ==
[2023-10-15 10:30] VITALS: BP 103/66; PULSE 82; RESP 18; TEMP 36.4; O2SAT 95; BMI 28.3
[2023-10-15] MEDS: methylPREDNISolone ACETATE 80MG/ML VIAL 80 MG (10:46)
[2023-10-15] MEDS: BUPIVACAINE 0.25% 10ML INJ 25 MG IJ (10:46)
[2023-10-15] MEDS: LIDOCAINE 1% 5ML PF VIAL 5 ML (10:46)
[2023-10-15 10:52] VITALS: BP 125/83; PULSE 78; RESP 20; O2SAT 93
[2023-10-15 10:55] VITALS: BP 125/83; PULSE 85; RESP 20; O2SAT 93
[2023-10-15 11:00] VITALS: BP 104/65; PULSE 80; RESP 18; O2SAT 95
[2023-10-15] MEDS: IOPAMIDOL-200 (41%);10ML VIAL 10 ML IV (11:02)
--- NOTE | 2023-10-15 11:20 | P.PCN_ITS ---
Procedure Date: 10/15/23 Time: 11:00 Anesthesiologist:: Filipe Gorman CRNA Complications:: None Pre-procedure Diagnosis:: Degenerative disc cervical spine multiple levels. Cervical radiculopathy. Cervical facet arthropathy. Cervical spondylosis. Post-procedure Diagnosis:: Same. Indications for Procedure:: Patient is a very pleasant 68-year-old female comes our clinic today for bilateral cervical medial branch blocks/facet injections at C5-6, C6-7. Patient describes posterior cervical neck pain that radiates into the shoulders bilaterally. She reports having difficulty with flexion, extension, left and right rotation of the cervical spine. She rates her pain 7/10. Procedure Details:: Informed consent was obtained and the risk and benefits of the procedure was explained to the patient. Patient was taken to the procedure room where noninvasive monitors were placed, including noninvasive blood pressure cuff as well as pulse oximeter. The area over the posterior cervical spine was cleansed using chlorhexidine as a cleansing solution. I anesthetized the skin and subcutaneous tissues with 1% Lidocaine. I placed 25 -gauge spinal needles into the facet joint/ medial branches of C5-6, C6-7 bilaterally. Needle placement was confirmed with fluoroscopy. After confirmation of needle placement, each site was injected with 1 mL of 1% lidocaine and 0.25 % Marcaine and 10 mg of Depo- Medrol. A total of 20 mg of depo medrol was used for bilateral medial branch blocks of C5-6, C6-7 bilaterally. Patient tolerated the procedure without difficulty. There were no complications. Plan and Disposition:: Patient was discharged without incident.
== END 2023-10-15 11:00 | disposition home or self-care (01) ==
PROVIDERS: PCP Family Medicine; Visit Provider Nurse Anesthetist, Certified Registered
DX: M47.892 Other spondylosis, cervical region (principal); M50.122 Cervical disc disorder at C5-C6 level with radiculopathy; M50.123 Cervical disc disorder at C6-C7 level with radiculopathy
CPT/HCPCS: 64490; 64491; J1010; Q9966

== ENCOUNTER 2023-10-27 15:03 | Outpatient (POV) | payer MEDICARE, SELFPAY ==
[2023-10-27 15:09] VITALS: BP 128/80; PULSE 84; RESP 18; O2SAT 92; BMI 28.3
--- NOTE | 2023-10-27 15:58 | A.OFFVIS_ITS ---
[facility] Pain Management SOAP Note Subjective:: Patient is a pleasant 68-year-old female who presents today for follow-up. Today she rates her pain an 8 out of 10. Patient denies any new trauma or injury. She does state that she continues to have a catching sensation with low back pain that does not radiate into her legs. Patient is scheduled for a lumbar medial branch block injection coming up. Patient does state that she also still continues to have chronic neck pain with limited range of motion. Patient does state on average her aches and pains are interfering with her activities of daily living such as cooking and cleaning. Patient does state that she feels like her overall back pain is holding her back. She states that she is doing so well following her gastric bypass surgery and that she really feels like the only thing that is limiting her activity is due to the pain. Patient has been tried on tramadol with minimal improvement. Patient is currently managed with methocarbamol 750 mg 3 times a day and compounded cream. She states that she has continued to take this as prescribed and is really not sure whether or not if this medicine is still helping or not. Patient does state that she continues to take acetaminophen products and that she has been told that her liver enzymes have been a little elevated. She is prescribed pregabalin from an outside provider. Her Michael has been reviewed and is appropriate. Review of Systems: General: No recent weight changes, no fever, no sleep disturbances Respiratory: No cough, no shortness of air, no recurring pulmonary infections Cardiovascular/peripheral vascular: No chest pain, no palpitations, no edema, no shortness of breath Gastrointestinal: No new onset incontinence, normal bowel movements reported Genitourinary: No new onset incontinence Musculoskeletal: Low back pain, neck pain Psychiatric: [Normal mood/affect] Neurological: [Denies weakness in extremities], [denies balance issues] Objective:: Physical Exam: General: Alert and oriented x3, no acute distress, pleasant and cooperative Lungs: Respirations even and unlabored, symmetrical chest expansion Eyes: PERRL Musculoskeletal: Flexion and extension of lumbar [spine] somewhat guarded secondary to pain, [antalgic gait noted] Neurological: Speech clear, no gross sensory deficit Assessment:: Degenerative disc disease of cervical and lumbar spine with cervical and lumbar facet arthropathy, chronic pain syndrome Plan:: Patient continues to experience significant pain in multiple areas. I have discussed with the patient that I would recommend her to temporarily discontinue her methocarbamol in order to see that it is still providing benefit. I have counseled her to contact our office Wednesday and let us know if she did notice any difference and have discussed about trying a different muscle relaxer if there is no change. Patient acknowledges understanding and agrees with this plan of care. I have also discussed with the patient due to her chronic pain throughout her neck and down to her lumbar spine that she still may benefit from a intrathecal pain pump trial. Risk and benefits and educational handouts were given today's visit. Patient would like to go ahead and proceed forward with the psychological evaluation. I have counseled her that if she is deemed an appropriate candidate we will proceed forward with a trial at a later date. Patient will not be given a follow-up date today as she does have an upcoming injection and will be given a 2-week follow-up date of that appointment. Patient has been instructed to contact the clinic with any concerns before the next appointment. Dr. Viramontes has reviewed this note and agrees with this plan of care. This note was dictated using voice recognition software and make contain errors or omissions. [facility] Disclaimer: The information contained in this section may have been updated after the patient was seen, as this information can be updated by other users. Medical History Allergic rhinitis, unspecified Atypical angina Carotid artery stenosis Chronic hypoxemic respiratory failure Chronic obstructive lung disease Chronic obstructive pulmonary disease with acute respiratory distress COPD exacerbation COPD mixed type Coronary arteriosclerosis Diastolic dysfunction Dyspnea on exertion History of 2019 novel coronavirus disease (COVID-19) History of smoking 30 or more pack years HTN (hypertension) Hyperlipidemia Hypertensive heart disease without heart failure Hypotension Lung nodule Respiratory symptoms Screening for lung cancer Smoking greater than 30 pack years She quit smoking almost a year ago [facility] History History of bladder suspension procedure History of gastric bypass 08/31/2023: BMI 27.6 Hx of appendectomy Hx of tubal ligation Family History Other Asthma Cancer Coronary artery disease Diabetes Heart attack Hyperlipidemia Hypertension Thyroid disorder Social History Smoking Status: Former smoker tobacco type: cigarettes packs per day: 1 alcohol intake: never counseling provided: none substance use type: denies use current occupational status: unemployed Travel in the last 8 weeks: None household members: spouse housing: house caffeine: Yes
== END 2023-10-27 23:59 ==
LOC: SC.PAIN 15:04
PROVIDERS: PCP Family Medicine; Visit Provider Nurse Practitioner Family
DX: M50.10 Cervical disc disorder with radiculopathy, unspecified cervical region (principal); M51.16 Intervertebral disc disorders with radiculopathy, lumbar region; G89.4 Chronic pain syndrome
CPT/HCPCS: 99212; G0463

== ENCOUNTER 2023-11-01 08:54 | Outpatient (CLI) | payer MEDICARE, SELFPAY ==
--- NOTE | 2023-11-01 08:56 | XR_ITS ---
FINAL REPORT CLINICAL HISTORY: OSTEOPENIA COMPARISON: 11/19/2020 FINDINGS: Using L1-4, the bone mineral density of the spine is 1.071 g/cm2, corresponding to T-score of 0.2 which is within normal limits but likely falsely elevated secondary to hypertrophic changes. Previously was 0.987 g/cm? with T-score of -0.5. Using the left hip, the bone mineral density of the femoral neck is 0.607 g/cm2, corresponding to a T-score of -2.2 which is consistent with osteopenia. Previously was 0.612 g/cm? with T-score of -2.1. Using the right hip, the bone mineral density of the femoral neck is 0.622 g/cm2, corresponding to a T-score of -2.0 which is consistent with osteopenia. Previously was 0.590 g/cm? with T-score of -2.3. FRAX not reported because the patient is being treated for osteoporosis. NOTE: T-score: Standard deviation compared with peak bone mass of young adult mean. *Following the recommendations of the International Society of Bone densitometry, classification of hip BMD is based on the lower of two T-scores; total hip or femoral neck. IMPRESSION: Diminished bone mineral density consistent with osteopenia. Reviewed, Interpreted and Dictated by Rich Rosas MD Transcribed by Ursula Jackson Authenticated and [facility]
== END 2023-11-01 23:59 | disposition home or self-care (01) ==
LOC: RAD 08:54
PROVIDERS: PCP Family Medicine; Visit Provider Family Medicine
DX: M85.851 Other specified disorders of bone density and structure, right thigh (principal); M85.852 Other specified disorders of bone density and structure, left thigh
CPT/HCPCS: 77080

== ENCOUNTER 2023-11-02 10:42 | Day surgery (SDC) | payer MEDICARE, SELFPAY ==
--- NOTE | 2023-11-02 10:53 | EXP.PAIN.PRO ---
Procedure Date: 11/02/23 Time: 10:40 Anesthesiologist:: Filipe Gorman CRNA Complications:: None Pre-procedure Diagnosis:: Degenerative disc lumbar spine multiple levels. Lumbar radiculopathy. Lumbar postlaminectomy syndrome. Post-procedure Diagnosis:: Same. Indications for Procedure:: Patient is a pleasant 68-year-old
[2023-11-02 11:00] VITALS: BP 107/72; BP 119/65; PULSE 68; PULSE 74; RESP 18; TEMP 36.7; O2SAT 91; O2SAT 95; BMI 28.1
[2023-11-02] MEDS: BUPIVACAINE 0.25% 10ML INJ 25 MG IJ (11:05)
[2023-11-02 11:07] VITALS: BP 121/73; PULSE 71; RESP 18; O2SAT 91
--- NOTE | 2023-11-02 11:08 | P.PCN_ITS ---
Procedure Date: 11/02/23 Time: 10:50 Anesthesiologist:: Filipe Gorman CRNA Complications:: None Pre-procedure Diagnosis:: Degenerative disc lumbar spine multilevels. Lumbar radiculopathy. Lumbar spondylosis. Multilevel lumbar facet arthropathy. Post-procedure Diagnosis:: Same. Indications for Procedure:: Patient is a very pleasant 68-year-old female who comes our clinic today for bilateral L3-4, L4-5 medial branch block/facet injections. Originally, patient was scheduled for the left side only. However, patient reports intense pain bilaterally. She rates her pain today 8/10. She reports difficulty with flexion, extension, left and right rotation of the lumbar spine. Difficulty sitting for any length of time due to lumbar back pain. Standing intensifies the pain in the lumbar spine as well. Procedure Details:: Informed consent was obtained and the risk and benefits of the procedure was explained to the patient. Patient was taken to the procedure room where noninvasive monitors were placed, including noninvasive blood pressure cuff as well as pulse oximeter. The area over the lumbar spine was cleansed using chlorhexidine as a cleansing solution. I anesthetized the skin and subcutaneous tissues with 1% Lidocaine. I placed 22-gauge spinal needles into the facet joint/ medial branches of [L3-L4, L4-L5 bilaterally. Needle placement was confirmed with fluoroscopy. After confirmation of needle placement, each site was injected with 1 mL of 1% lidocaine and 0.25 % Marcaine and 10 mg of Depo- Medrol. A total of 80 mg of depo medrol was used for bilateral medial branch blocks of [L3-L4, L4-L5 bilaterally. Patient tolerated the procedure without difficulty. There were no complications. Plan and Disposition:: Patient was discharged without incident.
[2023-11-02] MEDS: methylPREDNISolone ACETATE 80MG/ML VIAL 80 MG (11:11)
[2023-11-02] MEDS: LIDOCAINE 1% 5ML PF VIAL 5 ML (11:11)
== END 2023-11-02 11:07 | disposition home or self-care (01) ==
PROVIDERS: PCP Family Medicine; Visit Provider Nurse Anesthetist, Certified Registered
DX: M47.896 Other spondylosis, lumbar region (principal); M51.16 Intervertebral disc disorders with radiculopathy, lumbar region
CPT/HCPCS: 64493; 64494; J1010

== ENCOUNTER 2023-11-15 14:43 | Outpatient (POV) | payer MEDICARE, SELFPAY ==
[2023-11-15 14:55] VITALS: BP 101/64; PULSE 80; RESP 18; TEMP 36.8; O2SAT 97; BMI 28.1
--- NOTE | 2023-11-15 15:18 | EXP.PAIN.SOA ---
[facility] Pain Management SOAP Note Subjective:: Patient is a pleasant 68-year-old female who presents today for follow-up of her second lumbar medial branch block bilaterally L2-L3 and L3-L4 on 11/02/2023. Today she rates her pain an 7 out of 10. Patient denies any new trauma or injury. She does state that she did have approximately 70% relief following this injection however it was very temporary only lasting about an hour or so. Patient does states she is back to her baseline with chronic pain throughout her low back. She continues to have a catching sensation with low back pain that does not radiate into her legs. Patient has not had any recent imaging. She describes her overall back pain as an aching, throbbing sensation that is worse with certain movements such as bending, twisting or lifting. The pain does interfere with her ability to perform activities of daily living such as cooking and cleaning. Patient did prior have her first lumbar medial branch block of L2-L3 and L3-L4 bilaterally back in July that did provide 100% relief lasting 1 week. Patient does state that she is still thinking on the pump option due to her chronic pain symptoms. Patient states she has a lot of questions regarding this. Patient has been tried on tramadol with minimal improvement. Patient is currently managed with methocarbamol 750 mg 3 times a day and compounded cream. She is prescribed pregabalin from an outside provider. Her Michael has been reviewed and is appropriate. Review of Systems: General: No recent weight changes, no fever, no sleep disturbances Respiratory: No cough, no shortness of air, no recurring pulmonary infections Cardiovascular/peripheral vascular: No chest pain, no palpitations, no edema, no shortness of breath Gastrointestinal: No new onset incontinence, normal bowel movements reported Genitourinary: No new onset incontinence Musculoskeletal: Low back pain Psychiatric: [Normal mood/affect] Neurological: [Denies weakness in extremities], [denies balance issues] Objective:: Physical Exam: General: Alert and oriented x3, no acute distress, pleasant and cooperative Lungs: Respirations even and unlabored, symmetrical chest expansion Eyes: PERRL Musculoskeletal: Flexion and extension of lumbar [spine] somewhat guarded secondary to pain, [antalgic gait noted] positive Kemps test Neurological: Speech clear, no gross sensory deficit Assessment:: Degenerative disc disease of lumbar spine with lumbar radiculopathy symptoms, lumbar spondylosis, lumbar facet arthropathy, chronic pain syndrome, degenerative disc disease of cervical spine Plan:: Patient has had 2 successful lumbar medial branch blocks with the first 1 providing 100% relief lasting 1 week and her second 1 providing 70% relief lasting 1 to 2 hours. I have discussed with the patient that she may benefit from lumbar RFA. Risk and benefits were discussed with the patient and she would like to proceed forward with this plan of care. Due to the patient's catching sensation she continues to experience in her low back I will order updated imaging of x-ray and MRI without contrast. We will follow-up with this imaging at future visits. Patient has tried and failed conservative therapy and continues to do at home exercising and stretching as well as going to the gym multiple days each week with no additional relief. We will schedule the patient for a lumbar RFA bilaterally L2-L3 and L3-L4 under fluoroscopy. I have counseled the patient that we will follow-up with additional questions or concerns regarding the pump trial at later visits. Patient has been instructed to contact the clinic with any concerns before the next appointment. Dr. Viramontes has reviewed this note and agrees with this plan of care. This note was dictated using voice recognition software and make contain errors or omissions. [facility] Disclaimer: The information contained in this section may have been updated after the patient was seen, as this information can be updated by other users. Medical History Allergic rhinitis, unspecified Atypical angina Carotid artery stenosis Chronic hypoxemic respiratory failure Chronic obstructive lung disease Chronic obstructive pulmonary disease with acute respiratory distress COPD exacerbation COPD mixed type Coronary arteriosclerosis Diastolic dysfunction Dyspnea on exertion History of 2019 novel coronavirus disease (COVID-19) History of smoking 30 or more pack years HTN (hypertension) Hyperlipidemia Hypertensive heart disease without heart failure Hypotension Lung nodule Respiratory symptoms Screening for lung cancer Smoking greater than 30 pack years She quit smoking almost a year ago Vertigo Surgical History History of bladder suspension procedure History of gastric bypass 08/31/2023: BMI 27.6 Hx of appendectomy Hx of tubal ligation Family History Other Asthma Cancer Coronary artery disease Diabetes Heart attack Hyperlipidemia Hypertension Thyroid disorder Social History Smoking Status: Former smoker tobacco type: cigarettes packs per day: 1 alcohol intake: never counseling provided: none substance use type: denies use current occupational status: other Travel in the last 8 weeks: None household members: spouse housing: house caffeine: Yes
== END 2023-11-15 23:59 | disposition home or self-care (01) ==
LOC: SC.PAIN 14:44
PROVIDERS: PCP Family Medicine; Visit Provider Nurse Practitioner Family
DX: M47.896 Other spondylosis, lumbar region (principal); M51.16 Intervertebral disc disorders with radiculopathy, lumbar region; G89.4 Chronic pain syndrome; M50.30 Other cervical disc degeneration, unspecified cervical region
CPT/HCPCS: 99212; G0463

== ENCOUNTER 2023-11-16 10:48 | Outpatient (CLI) | payer MEDICARE, SELFPAY ==
--- NOTE | 2023-11-16 10:55 | XR_ITS ---
FINAL REPORT CLINICAL HISTORY: LBP COMPARISON: None FINDINGS: 5 views of the lumbar spine were obtained. There is no evidence of fracture or dislocation. Levoscoliosis is present. Moderate and severe degenerative changes are noted with vascular calcifications. No paraspinous soft tissue abnormalities identified. IMPRESSION: No acute bony abnormality. Moderate and severe degenerative change as described. Reviewed, Interpreted and Dictated by Lico Winter III, MD Transcribed by Belkys Amezcua Authenticated and [facility]
== END 2023-11-16 23:59 | disposition home or self-care (01) ==
LOC: RAD 10:51
PROVIDERS: PCP Family Medicine; Visit Provider Nurse Practitioner Family
DX: M54.50 Low back pain, unspecified (principal)
CPT/HCPCS: 72110

== ENCOUNTER 2023-11-23 13:42 | Outpatient (CLI) | payer MEDICARE, SELFPAY ==
[2023-11-23] MEDS: DENOSUMAB 60 MG/ML SYRINGE SQ (13:55)
[2023-11-23 13:57] VITALS: BP 123/74; PULSE 81; RESP 18; TEMP 36.8; O2SAT 99
== END 2023-11-23 14:00 | disposition home or self-care (01) ==
LOC: INF 13:43
PROVIDERS: PCP Family Medicine; Visit Provider Nurse Practitioner Obstetrics & Gynecology
DX: M85.89 Other specified disorders of bone density and structure, multiple sites (principal)
CPT/HCPCS: 96372; J0897

== ENCOUNTER 2023-11-30 10:39 | Outpatient (CLI) | payer MEDICARE, SELFPAY ==
[2023-11-30 11:03] VITALS: BP 133/81; PULSE 76; RESP 18; O2SAT 97
[2023-11-30] MEDS: PROMETHAZINE HCL 25MG/ML 1ML VIAL 25 MG IV (11:03)
[2023-11-30] MEDS: 0.9 % SODIUM CHLORIDE 25 ML 100 ML IV (11:03)
[2023-11-30] MEDS: DEXTROSE 5%-LACTATED RINGERS 1,000 ML 999 ML IV (11:03)
[2023-11-30 11:10] VITALS: BMI 26.4
[2023-11-30 11:25] LABS: Alanine Aminotransferase 97 U/L (12-78); Albumin Level 4.2 g/dl (3.5-5.0); Albumin/Globulin Ratio 1.3 (1.1-1.8); Alkaline Phosphatase 124 U/L (38-126); Amylase 74 U/L (30-110); Anion Gap 17.9 mEq/L (5-15); Aspartate Amino Transferase 74 U/L (14-36); Bilirubin,Total 0.7 mg/dl (0.2-1.3); Blood Urea Nitrogen 14 mg/dl (7-17); Calcium 9.2 mg/dl (8.4-10.2); Carbon Dioxide 20 mmol/L (22.0-30.0); Chloride 112 mmol/L (98-107); Creatinine Clearance Estimated 61 mL/min (50-200); Estimated Glomerular Filt Rate 100 ml/min (>60); GFR (African American) 121 ML/MIN (>60); Globulin 3.2 g/dL (1.3-3.2); Glucose 108 mg/dl (74-100); Lipase 102 U/L (23-300); Potassium 3.9 mmoL/L (3.5-5.1); Sodium 146 mmol/L (136-145); Total Protein,Serum 7.4 g/dl (6.3-8.2)
[2023-11-30 12:22] VITALS: BP 144/91; PULSE 75; RESP 18; O2SAT 96
== END 2023-11-30 12:22 | disposition home or self-care (01) ==
LOC: INF 10:41
PROVIDERS: PCP Family Medicine; Visit Provider Family Medicine
DX: R11.2 Nausea with vomiting, unspecified (principal); R19.7 Diarrhea, unspecified; E86.0 Dehydration
CPT/HCPCS: 80053; 82150; 83690; 96360; 96375

== ENCOUNTER 2023-12-01 07:27 | Outpatient (CLI) | payer MEDICARE, SELFPAY ==
--- NOTE | 2023-12-01 07:32 | MR_ITS ---
FINAL REPORT CLINICAL HISTORY: LOW BACK PAIN chronic nki COMPARISON: 07/09/2022 FINDINGS: Multiplanar MR imaging of the lumbar spine was performed without contrast. There is 15 degrees lumbar scoliosis convex to the left. On the sagittal T2-weighted images, there is advanced disc space narrowing, particularly the evident at L2-3. The vertebrae are of normal height. The vertebral alignment is normal. L1-2: There is no significant canal stenosis or neural foraminal narrowing. L2-3: Right posterolateral disc protrusion is present with moderate bilateral neural foraminal narrowing. L3-4: Mild diffuse disc bulge is present with mild to moderate bilateral neural foraminal narrowing. L4-5: Mild diffuse disc bulge is present with mild left neural foraminal narrowing. L5-S1: There is no significant canal stenosis or neural foraminal narrowing. IMPRESSION: Right posterolateral disc protrusion at L2-3 with neural foraminal compromise, most evident at L2-3 and L3-4. Reviewed, Interpreted and Dictated by Rich Rosas MD Transcribed by Shweta Garzon Authenticated and [facility]
--- NOTE | 2023-12-01 08:32 | US_ITS ---
FINAL REPORT CLINICAL HISTORY: ELEVATED LIVER TESTS COMPARISON: None FINDINGS: Sonographic images of the right upper quadrant were obtained. The pancreas is partially obscured. There is mild fatty infiltration of the liver. The gallbladder appears normal without evidence of gallstones.There is no evidence of biliary ductal dilatation.The common duct measures 6 mm. There is a 2.7 cm cyst in the right kidney without hydronephrosis. IMPRESSION: No evidence of kidney stones. No ductal dilatation. Right renal cyst. Reviewed, Interpreted and Dictated by Rich Rosas MD Transcribed by Ursula Jackson Authenticated and [facility]
== END 2023-12-01 23:59 | disposition home or self-care (01) ==
LOC: RAD 07:27
PROVIDERS: PCP Family Medicine; Visit Provider Nurse Practitioner Family
DX: M54.50 Low back pain, unspecified (principal); R79.89 Other specified abnormal findings of blood chemistry
CPT/HCPCS: 72148; 76705

== ENCOUNTER 2024-01-06 09:45 | Outpatient (POV) | payer MEDICARE, SELFPAY ==
[2024-01-06 09:54] VITALS: BP 102/67; PULSE 81; RESP 16; O2SAT 95; BMI 25.2
--- NOTE | 2024-01-06 10:11 | EXP.PAIN.SOA ---
[facility] Disclaimer: The information contained in this section may have been updated after the patient was seen, as this information can be updated by other users. Medical History COPD mixed type Vertigo Screening for lung cancer COPD exacerbation HTN (hypertension) History of smoking 30 or more pack years History of 2019 novel coronavirus disease (COVID-19) Allergic rhinitis, unspecified Chronic obstructive pulmonary disease with acute respiratory distress Lung nodule Smoking greater than 30 pack years She quit smoking almost a year ago Dyspnea on exertion Chronic hypoxemic respiratory failure Respiratory symptoms Atypical angina Hypotension Carotid artery stenosis Diastolic dysfunction Chronic obstructive lung disease Hypertensive heart disease without heart failure Hyperlipidemia Coronary arteriosclerosis Surgical History History of gastric bypass 08/31/2023: BMI 27.6 Hx of tubal ligation Hx of appendectomy History of bladder suspension procedure Family History Other Asthma Cancer Coronary artery disease Diabetes Heart attack Hyperlipidemia Hypertension Thyroid disorder Social History Smoking Status: Former smoker tobacco type: cigarettes packs per day: 1 alcohol intake: never counseling provided: none substance use type: denies use current occupational status: retired Travel in the last 8 weeks: None household members: spouse housing: house caffeine: Yes PM Subjective & Objective Subjective Subjective:: Patient is a pleasant 68-year-old female who presents today for insurance denial of her lumbar RFA. Today she rates her pain a 0 out of 10. Patient denies any new trauma or injury. She does states she ended up going on vacation down to [place] and that the pain was very unbearable. She states that she decided to start seeing a chiropractor and that has significantly helped. Patient states that she has been able to do more activity with overall decreased pain. She does state that she is scheduled for her next appointment next week. She states between it the compounded cream and using her TENS unit she feels more manageable. Patient did have a psychological evaluation that was completed and was deemed an appropriate candidate. In the past we did talk about a pain pump trial. Patient is prescribed pregabalin from an outside provider. Her Michael has been reviewed and is appropriate. Review of Systems: General: No recent weight changes, no fever, no sleep disturbances Respiratory: No cough, no shortness of air, no recurring pulmonary infections Cardiovascular/peripheral vascular: No chest pain, no palpitations, no edema, no shortness of breath Gastrointestinal: No new onset incontinence, normal bowel movements reported Genitourinary: No new onset incontinence Musculoskeletal: Low back pain Psychiatric: [Normal mood/affect] Neurological: [Denies weakness in extremities], [denies balance issues] Pain at rest (0-10 scale): 0 Objective Has patient had previous pain injection?: No Conservative treatment options previously tried: NSAIDS Length of treatment: More than 6 weeks, Home exercise plan Length of treatment: More than 6 weeks, Chiropractor Length of treatment: 3 weeks, Prescription medications Length of treatment: More than 6 weeks and Other (please describe) (tens unit more than 6-week) Meds Home Medications and Allergies Home Medications Medication Instructions Recorded Confirmed Type multivitamin 1 tab PO QAM Supplement 11/22/17 01/06/24 History lamotrigine 150 mg tablet 150 mg PO BID antidepressant 04/29/20 01/06/24 History oxybutynin chloride 10 mg 10 mg PO DAILY bladder 10/02/20 01/06/24 History tablet,extended release 24 hr acetaminophen 500 mg tablet 1,000 mg PO Q6H PRN Pain 09/22/22 01/06/24 History (Tylenol Extra Strength) venlafaxine 225 mg tablet,extended 225 mg PO DAILY MOOD 02/02/23 01/06/24 History release 24 hr calcium citrate 200 mg (950 mg) 200 mg PO BID SUPPLIMENT 03/26/23 01/06/24 History tablet cholecalciferol (vitamin D3) 1,250 1,250 mcg PO DAILY SUPPLIMENT 03/26/23 01/06/24 History mcg (50,000 unit) capsule melatonin 5 mg capsule See Rx Instructions PO HS 09/02/23 01/06/24 History pantoprazole 40 mg tablet,delayed 40 mg PO DAILY GERD 09/02/23 01/06/24 History release trazodone 100 mg tablet 200 mg PO HS 09/02/23 01/06/24 History cetirizine 5 mg tablet 10 mg PO DAILY PRN . 09/08/23 01/06/24 History donepezil 10 mg tablet (Aricept) 10 mg PO DAILY 09/13/23 01/06/24 History hydroxyzine HCl 10 mg tablet 10 mg PO ONCE 09/13/23 01/06/24 History fluticasone fur. 100 mcg-umeclid 1 inh inhalation DAILY 90 days #90 09/20/23 01/06/24 Rx 62.5 mcg-vilant 25 mcg ea inhalat.powder (Trelegy Ellipta) aspirin 81 mg tablet,delayed 81 mg PO DAILY Heart disease #90 09/28/23 01/06/24 Rx release tabs ezetimibe 10 mg tablet (Zetia) 10 mg PO DAILY Cholesterol #90 tabs 09/28/23 01/06/24 Rx hydrochlorothiazide 12.5 mg tablet 12.5 mg PO DAILY Fluid #90 tabs 09/28/23 01/06/24 Rx isosorbide mononitrate 30 mg See Rx Instructions .Route 09/28/23 01/06/24 Rx tablet,extended release 24 hr .COMPLEX #90 tabs denosumab 60 mg/mL subcutaneous 60 mg SQ [id number] bones #1 mL 11/01/23 01/06/24 Rx syringe atorvastatin 40 mg tablet 40 mg PO DAILY 11/17/23 01/06/24 History losartan 25 mg tablet 25 mg PO DAILY 11/17/23 01/06/24 History pregabalin 100 mg capsule 100 mg PO DAILY 11/17/23 01/06/24 History quetiapine 100 mg tablet 50 mg PO HS 11/17/23 01/06/24 History atorvastatin 40 mg tablet 40 mg PO DIRECTED 01/06/24 01/06/24 History New Prescriptions to Start Prescriptions: Allergies Allergy/AdvReac Type Severity Reaction Status Date / Time Penicillins Allergy Severe S-ANAPHYLAX Verified 11/17/23 13:54 IS milnacipran [From [facility]] Allergy Unknown Unknown Verified 11/17/23 13:54 allergy reaction Assessment and Plan *Assessment and plan (1) Low back pain: Status: Acute Qualifiers: Chronicity: chronic Back pain laterality: unspecified Sciatica presence: unspecified whether sciatica present Qualified Code(s): M54.50 - Low back pain, unspecified; G89.29 - Other chronic pain Category: Medical Code(s): M54.50 - Low back pain, unspecified (2) Sacroiliitis: Status: Acute Category: Medical Code(s): M46.1 - Sacroiliitis, not elsewhere classified (3) Degenerative disc disease, lumbar: Status: Acute Category: Medical Code(s): M51.36 - Other intervertebral disc degeneration, lumbar region Plan I did review over the psychological evaluation and she was deemed an appropriate candidate for this device. I will follow-up with this at future visits since she is getting very good relief currently and does not need to progress forward with a trial. I will send in a 2-week dose of baclofen 5 mg. Patient will return to clinic in 1 month for reevaluation of symptoms and plan of care. Patient has been instructed to contact the clinic with any concerns before the next appointment. Dr. Viramontes has reviewed this note and agrees with this plan of care. This note was dictated using voice recognition software and make contain errors or omissions.
== END 2024-01-06 23:59 | disposition home or self-care (01) ==
PROVIDERS: Visit Provider Nurse Practitioner Family
DX: M54.50 Low back pain, unspecified (principal); G89.29 Other chronic pain; M51.36 Other intervertebral disc degeneration, lumbar region
CPT/HCPCS: 99212; G0463

== ENCOUNTER 2024-02-07 09:09 | Outpatient (POV) | payer MEDICARE, SELFPAY ==
[2024-02-07 09:28] VITALS: BP 97/72; PULSE 75; RESP 18; O2SAT 96; BMI 24.8
--- NOTE | 2024-02-07 09:46 | EXP.PAIN.SOA ---
[facility] Disclaimer: The information contained in this section may have been updated after the patient was seen, as this information can be updated by other users. Medical History COPD mixed type Vertigo Screening for lung cancer COPD exacerbation HTN (hypertension) History of smoking 30 or more pack years History of 2019 novel coronavirus disease (COVID-19) Allergic rhinitis, unspecified Chronic obstructive pulmonary disease with acute respiratory distress Lung nodule Smoking greater than 30 pack years She quit smoking almost a year ago Dyspnea on exertion Chronic hypoxemic respiratory failure Respiratory symptoms Atypical angina Hypotension Carotid artery stenosis Diastolic dysfunction Chronic obstructive lung disease Hypertensive heart disease without heart failure Hyperlipidemia Coronary arteriosclerosis Surgical History History of gastric bypass 08/31/2023: BMI 27.6 Hx of tubal ligation Hx of appendectomy History of bladder suspension procedure Family History Other Asthma Cancer Coronary artery disease Diabetes Heart attack Hyperlipidemia Hypertension Thyroid disorder Social History Smoking Status: Former smoker tobacco type: cigarettes packs per day: 1 alcohol intake: never counseling provided: none substance use type: denies use current occupational status: retired Travel in the last 8 weeks: None household members: spouse housing: house caffeine: Yes PM Subjective & Objective Subjective Subjective:: Patient is a pleasant 68-year-old female who presents today 1 month follow-up. She rates her pain today in her low back is 0 out of 10. She states that overall it still doing wonderful and that occasionally she might have an IV for pain but it still very manageable. She does state that she has more pain in her neck with trouble turning [id number] and that it does cause some difficulty driving. Patient does state that she is trying to see about going to the chiropractor and see if this helps with some of her limited range of motion. Patient states that she has been doing better enough that she is not even taking her baclofen. Her Michael has been reviewed and is appropriate. Review of Systems: General: No recent weight changes, no fever, no sleep disturbances Respiratory: No cough, no shortness of air, no recurring pulmonary infections Cardiovascular/peripheral vascular: No chest pain, no palpitations, no edema, no shortness of breath Gastrointestinal: No new onset incontinence, normal bowel movements reported Genitourinary: No new onset incontinence Musculoskeletal: Neck pain Psychiatric: [Normal mood/affect] Neurological: [Denies weakness in extremities], [denies balance issues] Pain at rest (0-10 scale): 0 Objective Objective:: Physical Exam: General: Alert and oriented x3, no acute distress, pleasant and cooperative Lungs: Respirations even and unlabored, symmetrical chest expansion Eyes: PERRL Musculoskeletal: Flexion and extension of cervical [spine] somewhat guarded secondary to pain, [antalgic gait noted] Neurological: Speech clear, no gross sensory deficit Has patient had previous pain injection?: No Conservative treatment options previously tried: Home exercise plan Length of treatment: Longer than 12 weeks Meds Home Medications and Allergies Home Medications ?Medication ?Instructions ?Recorded ?Confirmed ?Type multivitamin 1 tab PO QAM Supplement 11/22/17 02/07/24 History lamotrigine 150 mg tablet 150 mg PO BID antidepressant 04/29/20 02/07/24 History oxybutynin chloride 10 mg 10 mg PO DAILY bladder 10/02/20 02/07/24 History tablet,extended release 24 hr acetaminophen 500 mg tablet 1,000 mg PO Q6H PRN Pain 09/22/22 02/07/24 History (Tylenol Extra Strength) venlafaxine 225 mg tablet,extended 225 mg PO DAILY MOOD 02/02/23 02/07/24 History release 24 hr calcium citrate 200 mg (950 mg) 200 mg PO BID SUPPLIMENT 03/26/23 02/07/24 History tablet cholecalciferol (vitamin D3) 1,250 1,250 mcg PO DAILY SUPPLIMENT 03/26/23 02/07/24 History mcg (50,000 unit) capsule melatonin 5 mg capsule See Rx Instructions PO HS 09/02/23 02/07/24 History pantoprazole 40 mg tablet,delayed 40 mg PO DAILY GERD 09/02/23 02/07/24 History release trazodone 100 mg tablet 200 mg PO HS 09/02/23 02/07/24 History cetirizine 5 mg tablet 10 mg PO DAILY PRN . 09/08/23 02/07/24 History donepezil 10 mg tablet (Aricept) 10 mg PO DAILY 09/13/23 02/07/24 History hydroxyzine HCl 10 mg tablet 10 mg PO ONCE 09/13/23 02/07/24 History fluticasone fur. 100 mcg-umeclid 1 inh inhalation DAILY 90 days #90 09/20/23 02/07/24 Rx 62.5 mcg-vilant 25 mcg ea inhalat.powder (Trelegy Ellipta) aspirin 81 mg tablet,delayed 81 mg PO DAILY Heart disease #90 09/28/23 02/07/24 Rx release tabs ezetimibe 10 mg tablet (Zetia) 10 mg PO DAILY Cholesterol #90 tabs 09/28/23 02/07/24 Rx hydrochlorothiazide 12.5 mg tablet 12.5 mg PO DAILY Fluid #90 tabs 09/28/23 02/07/24 Rx isosorbide mononitrate 30 mg See Rx Instructions .Route 09/28/23 02/07/24 Rx tablet,extended release 24 hr .COMPLEX #90 tabs denosumab 60 mg/mL subcutaneous 60 mg SQ [id number] bones #1 mL 11/01/23 02/07/24 Rx syringe atorvastatin 40 mg tablet 40 mg PO DAILY 11/17/23 02/07/24 History losartan 25 mg tablet 25 mg PO DAILY 11/17/23 02/07/24 History pregabalin 100 mg capsule 100 mg PO DAILY 11/17/23 02/07/24 History quetiapine 100 mg tablet 50 mg PO HS 11/17/23 02/07/24 History atorvastatin 40 mg tablet 40 mg PO DIRECTED 01/06/24 02/07/24 History baclofen 5 mg tablet 5 mg PO TID #42 tabs 01/06/24 02/07/24 Rx New Prescriptions to Start Prescriptions: Allergies Allergy/AdvReac Type Severity Reaction Status Date / Time Penicillins Allergy Severe S-ANAPHYLAX Verified 11/17/23 13:54 IS milnacipran [From [facility]] Allergy Unknown Unknown Verified 11/17/23 13:54 allergy reaction Assessment and Plan *Assessment and plan (1) Neck pain: Status: Acute Category: Medical Code(s): M54.2 - Cervicalgia Plan I have discussed with the patient that the chiropractor may be beneficial however I would recommend making sure they are going to a reputable provider. Patient was counseled that I would also see about getting a disc burned with her recent cervical imaging and printout of her report for the chiropractor to review. Patient agrees with this plan of care. Patient did previously have cervical medial branch block however stated it was very painful and did not feel like she got significant relief. I have counseled the patient that it may be a matter that we need to try different location. We will follow-up with this in future visits. Patient will return to clinic in 2 months for reevaluation of symptoms and plan of care. Patient has been instructed to contact the clinic with any concerns before the next appointment. Dr. Viramontes has reviewed this note and agrees with this plan of care. This note was dictated using voice recognition software and make contain errors or omissions. All injections are used with Lidocaine or Bupivacaine and Depo Medrol.
== END 2024-02-07 23:59 | disposition home or self-care (01) ==
LOC: SC.PAIN 09:10
PROVIDERS: PCP Family Medicine; Visit Provider Nurse Practitioner Family
DX: M54.2 Cervicalgia (principal)
CPT/HCPCS: 99212; G0463

== ENCOUNTER 2024-04-03 09:20 | Outpatient (POV) | payer MEDICARE, SELFPAY ==
--- NOTE | 2024-04-03 09:45 | EXP.PAIN.SOA ---
[facility] Disclaimer: The information contained in this section may have been updated after the patient was seen, as this information can be updated by other users. Medical History COPD mixed type Vertigo Screening for lung cancer COPD exacerbation HTN (hypertension) History of smoking 30 or more pack years History of 2019 novel coronavirus disease (COVID-19) Allergic rhinitis, unspecified Chronic obstructive pulmonary disease with acute respiratory distress Lung nodule Smoking greater than 30 pack years She quit smoking almost a year ago Dyspnea on exertion Chronic hypoxemic respiratory failure Respiratory symptoms Atypical angina Hypotension Carotid artery stenosis Diastolic dysfunction Chronic obstructive lung disease Hypertensive heart disease without heart failure Hyperlipidemia Coronary arteriosclerosis Surgical History History of gastric bypass 08/31/2023: BMI 27.6 Hx of tubal ligation Hx of appendectomy History of bladder suspension procedure Family History Other Asthma Cancer Coronary artery disease Diabetes Heart attack Hyperlipidemia Hypertension Thyroid disorder Social History Smoking Status: Former smoker tobacco type: cigarettes packs per day: 1 alcohol intake: never counseling provided: none substance use type: denies use current occupational status: other Travel in the last 8 weeks: None household members: spouse housing: house caffeine: Yes PM Subjective & Objective Subjective Subjective:: Patient is a pleasant 68-year-old female who presents today for follow-up. She rates her pain today is 3 out of 10. She denies any new trauma or injury. She does state that she was recently diagnosed with a fatty liver. She states that she is seen in [facility] who did do updated labs and did still agree with the fatty liver findings. Patient states the biggest thing she notices with this is that she has constipation and was started on Linzess. She states this does help. She states overall she has been doing very well with her back. She states that she really just notices more so the back pain with certain chair she sits then. She states that she does still occasionally go to the chiropractor about every 2 to 3 weeks. She is still doing the gym daily and states that for the most part she will only take her baclofen on certain occasions and that she does not need refills. She is scheduled to go to [place] later this week and is going for about 10 days. Her Michael has been reviewed and is appropriate. Review of Systems: General: No recent weight changes, no fever, no sleep disturbances Respiratory: No cough, no shortness of air, no recurring pulmonary infections Cardiovascular/peripheral vascular: No chest pain, no palpitations, no edema, no shortness of breath Gastrointestinal: No new onset incontinence, normal bowel movements reported Genitourinary: No new onset incontinence Musculoskeletal: Low back pain Psychiatric: [Normal mood/affect] Neurological: [Denies weakness in extremities], [denies balance issues] Pain at rest (0-10 scale): 3 Objective Objective:: Physical Exam: General: Alert and oriented x3, no acute distress, pleasant and cooperative Lungs: Respirations even and unlabored, symmetrical chest expansion Eyes: PERRL Musculoskeletal: Flexion and extension of lumbar [spine] somewhat guarded secondary to pain, [antalgic gait noted] Neurological: Speech clear, no gross sensory deficit Has patient had previous pain injection?: No Conservative treatment options previously tried: Home exercise plan Length of treatment: Longer than 12 weeks Meds Home Medications and Allergies Home Medications ?Medication ?Instructions ?Recorded ?Confirmed ?Type multivitamin 1 tab PO QAM Supplement 11/22/17 04/03/24 History lamotrigine 150 mg tablet 150 mg PO BID antidepressant 04/29/20 04/03/24 History oxybutynin chloride 10 mg 10 mg PO DAILY bladder 10/02/20 04/03/24 History tablet,extended release 24 hr acetaminophen 500 mg tablet 1,000 mg PO Q6H PRN Pain 09/22/22 04/03/24 History (Tylenol Extra Strength) venlafaxine 225 mg tablet,extended 225 mg PO DAILY MOOD 02/02/23 04/03/24 History release 24 hr calcium citrate 200 mg (950 mg) 200 mg PO BID SUPPLIMENT 03/26/23 04/03/24 History tablet cholecalciferol (vitamin D3) 1,250 1,250 mcg PO DAILY SUPPLIMENT 03/26/23 04/03/24 History mcg (50,000 unit) capsule pantoprazole 40 mg tablet,delayed 40 mg PO DAILY GERD 09/02/23 04/03/24 History release trazodone 100 mg tablet 200 mg PO HS 09/02/23 04/03/24 History donepezil 10 mg tablet (Aricept) 10 mg PO DAILY 09/13/23 04/03/24 History fluticasone fur. 100 mcg-umeclid 1 inh inhalation DAILY 90 days #90 09/20/23 04/03/24 Rx 62.5 mcg-vilant 25 mcg ea inhalat.powder (Trelegy Ellipta) aspirin 81 mg tablet,delayed 81 mg PO DAILY Heart disease #90 09/28/23 04/03/24 Rx release tabs ezetimibe 10 mg tablet (Zetia) 10 mg PO DAILY Cholesterol #90 tabs 09/28/23 04/03/24 Rx isosorbide mononitrate 30 mg See Rx Instructions .Route 09/28/23 04/03/24 Rx tablet,extended release 24 hr .COMPLEX #90 tabs denosumab 60 mg/mL subcutaneous 60 mg SQ [id number] bones #1 mL 11/01/23 04/03/24 Rx syringe atorvastatin 40 mg tablet 40 mg PO DAILY 11/17/23 04/03/24 History hydroxyzine HCl 10 mg tablet 10 mg PO ONCE 02/15/24 04/03/24 History azelastine 137 mcg (0.1 %) nasal 137 mcg intranasal DAILY 03/06/24 04/03/24 History spray montelukast 10 mg tablet 10 mg PO DAILY 03/06/24 04/03/24 History pregabalin 50 mg capsule 50 mg PO BID 03/06/24 04/03/24 History promethazine 25 mg tablet 25 mg PO NEEDED PRN Nausea 03/06/24 04/03/24 History quetiapine 50 mg tablet 150 mg PO DAILY 03/06/24 04/03/24 History sumatriptan succinate 50 mg tablet 50 mg PO DAILY 03/06/24 04/03/24 History terconazole 0.8 % vaginal cream 1 appful vaginal HS 3 days #20 03/06/24 04/03/24 Rx grams melatonin 5 mg capsule 10 mg PO HS 03/23/24 04/03/24 History New Prescriptions to Start Prescriptions: Allergies Allergy/AdvReac Type Severity Reaction Status Date / Time Penicillins Allergy Severe S-ANAPHYLAX Verified 04/03/24 09:46 IS milnacipran [From SAVELLA] Allergy Unknown Unknown Verified 04/03/24 09:46 allergy reaction Assessment and Plan *Assessment and plan (1) Degenerative disc disease, lumbar: Status: Acute Category: Medical Code(s): M51.36 - Other intervertebral disc degeneration, lumbar region (2) Neck pain: Status: Acute Category: Medical Code(s): M54.2 - Cervicalgia Plan Patient is doing well and does not require any additional interventions at this time. Patient will return to clinic in 3 months for reevaluation of symptoms and plan of care. Patient has been instructed to contact the clinic with any concerns before the next appointment. Dr. Viramontes has reviewed this note and agrees with this plan of care. This note was dictated using voice recognition software and make contain errors or omissions. All injections are used with Lidocaine or Bupivacaine and Depo Medrol.
[2024-04-03 09:46] VITALS: BP 122/70; PULSE 74; RESP 16; O2SAT 96; BMI 25.4
== END 2024-04-03 23:59 | disposition home or self-care (01) ==
LOC: SC.PAIN 09:22
PROVIDERS: PCP Family Medicine; Visit Provider Nurse Practitioner Family
DX: M51.36 Other intervertebral disc degeneration, lumbar region (principal); M54.2 Cervicalgia; Z87.891 Personal history of nicotine dependence; Z79.899 Other long term (current) drug therapy
CPT/HCPCS: 99212; G0463

== ENCOUNTER 2024-04-25 06:43 | Outpatient (CLI) | payer MEDICARE, SELFPAY ==
--- NOTE | 2024-04-25 06:49 | CT_ITS ---
FINAL REPORT TECHNIQUE: Axial images were obtained from the lung apex to the mid abdomen by computed tomography. This study was performed with techniques to keep radiation doses as low as reasonably achievable (ALARA). Individualized dose reduction techniques using automated exposure control or adjustment of mA and/or kV according to the patient's size were employed. CLINICAL HISTORY: lung cancer screening former smoker quit 3 years ago 2.5ppd x48 years COMPARISON: 03/22/2023 FINDINGS: CHEST CT LOW DOSE CTDI vol (mGy): 2.90 DLP (mGy-cm): 92.73 There is no axillary adenopathy. There is no hilar or mediastinal adenopathy. The heart is normal in size. There is no pericardial or pleural effusion. There is a 2 mm nodule in the periphery of the right upper lobe well seen on image 17 of series 4. There is a 3 mm nodule in the posterior right upper lobe well seen on image 24 of series 4. There is also 3 mm nodule in the mid left upper lobe well seen on image 19 of series 4. Findings are all stable. No new mass or nodule is identified. There are postoperative changes at the GE junction. Limited images of the upper abdomen are unremarkable. IMPRESSION: Stable pulmonary nodules as above. Lung RADS category 2. Recommend 12 month follow-up low-dose chest CT. Reviewed, Interpreted and Dictated by Rich Rosas MD Transcribed by Shweta Garzon Authenticated and [facility]
== END 2024-04-25 23:59 | disposition home or self-care (01) ==
LOC: RAD 06:44
PROVIDERS: PCP Family Medicine; Visit Provider Internal Medicine Pulmonary Disease
DX: F17.210 Nicotine dependence, cigarettes, uncomplicated (principal)
CPT/HCPCS: 71271

== ENCOUNTER 2024-05-26 13:20 | Outpatient (CLI) | payer MEDICARE, SELFPAY ==
[2024-05-26 13:30] VITALS: BP 102/75; PULSE 89; RESP 16; O2SAT 95
[2024-05-26] MEDS: DENOSUMAB 60 MG/ML SYRINGE SUBCUT (13:30)
== END 2024-05-26 13:40 | disposition home or self-care (01) ==
LOC: INF 13:22
PROVIDERS: PCP Family Medicine; Visit Provider Nurse Practitioner Obstetrics & Gynecology
DX: M81.0 Age-related osteoporosis without current pathological fracture (principal)
CPT/HCPCS: 96372; J0897

== ENCOUNTER 2024-07-03 09:11 | Outpatient (POV) | payer MEDICARE, SELFPAY ==
--- NOTE | 2024-07-03 09:36 | EXP.PAIN.SOA ---
[facility] Disclaimer: The information contained in this section may have been updated after the patient was seen, as this information can be updated by other users. Medical History COPD mixed type Vertigo Screening for lung cancer COPD exacerbation HTN (hypertension) History of smoking 30 or more pack years History of 2019 novel coronavirus disease (COVID-19) Allergic rhinitis, unspecified Chronic obstructive pulmonary disease with acute respiratory distress Lung nodule Smoking greater than 30 pack years She quit smoking almost a year ago Dyspnea on exertion Chronic hypoxemic respiratory failure Respiratory symptoms Atypical angina Hypotension Carotid artery stenosis Diastolic dysfunction Chronic obstructive lung disease Hypertensive heart disease without heart failure Hyperlipidemia Coronary arteriosclerosis Surgical History History of gastric bypass 08/31/2023: BMI 27.6 Hx of tubal ligation Hx of appendectomy History of bladder suspension procedure Family History Other Asthma Cancer Coronary artery disease Diabetes Heart attack Hyperlipidemia Hypertension Thyroid disorder Social History Smoking Status: Former smoker tobacco type: cigarettes packs per day: 1 alcohol intake: never counseling provided: none substance use type: denies use current occupational status: other Travel in the last 8 weeks: Inside the [place] household members: spouse housing: house caffeine: Yes PM Subjective & Objective Subjective Subjective:: Patient is a pleasant 68-year-old female who presents today for follow-up. She rates her pain today is 0 out of 10. She denies any new trauma or injury. She does state that she will still get some chronic back pain but it is more when she has been up standing or sitting for prolonged periods. She continues to go to the gym on a regular basis and see her chiropractor about once a month. Patient is prescribes baclofen 5 mg 3 times daily from our office however she states that sometimes it helps sometimes it does not. Patient does state that she continues to use a pillow for positioning under her legs when she is sitting for longer times. She has tried lidocaine patches and Salonpas patches with no additional improvement. Her Michael has been reviewed and is appropriate. Review of Systems: General: No recent weight changes, no fever, no sleep disturbances Respiratory: No cough, no shortness of air, no recurring pulmonary infections Cardiovascular/peripheral vascular: No chest pain, no palpitations, no edema, no shortness of breath Gastrointestinal: No new onset incontinence, normal bowel movements reported Genitourinary: No new onset incontinence Musculoskeletal: Low back pain Psychiatric: [Normal mood/affect] Neurological: [Denies weakness in extremities], [denies balance issues] Pain at rest (0-10 scale): 0 Objective Objective:: Physical Exam: General: Alert and oriented x3, no acute distress, pleasant and cooperative Lungs: Respirations even and unlabored, symmetrical chest expansion Eyes: PERRL Musculoskeletal: Flexion and extension of lumbar [spine] somewhat guarded secondary to pain, [antalgic gait noted] Neurological: Speech clear, no gross sensory deficit Has patient had previous pain injection?: No Conservative treatment options previously tried: Home exercise plan Length of treatment: Longer than 12 weeks Meds Home Medications and Allergies Home Medications ?Medication ?Instructions ?Recorded ?Confirmed ?Type multivitamin 1 tab PO QAM Supplement 11/22/17 06/21/24 History lamotrigine 150 mg tablet 150 mg PO BID antidepressant 04/29/20 06/21/24 History oxybutynin chloride 10 mg 10 mg PO DAILY bladder 10/02/20 06/21/24 History tablet,extended release 24 hr acetaminophen 500 mg tablet 1,000 mg PO Q6H PRN Pain 09/22/22 06/21/24 History (Tylenol Extra Strength) venlafaxine 225 mg tablet,extended 225 mg PO DAILY MOOD 02/02/23 06/21/24 History release 24 hr calcium citrate 200 mg PO BID SUPPLIMENT 03/26/23 06/21/24 History cholecalciferol (vitamin D3) 1,250 1,250 mcg PO DAILY SUPPLIMENT 03/26/23 06/21/24 History mcg (50,000 unit) capsule pantoprazole 40 mg tablet,delayed 40 mg PO DAILY GERD 09/02/23 06/21/24 History release trazodone 100 mg tablet 200 mg PO HS 09/02/23 06/21/24 History donepezil 10 mg tablet (Aricept) 10 mg PO DAILY 09/13/23 06/21/24 History aspirin 81 mg tablet,delayed 81 mg PO DAILY Heart disease #90 09/28/23 06/21/24 Rx release tabs ezetimibe 10 mg tablet (Zetia) 10 mg PO DAILY Cholesterol #90 tabs 09/28/23 06/21/24 Rx denosumab 60 mg/mL subcutaneous 60 mg SQ [id number] bones #1 mL 11/01/23 06/21/24 Rx syringe atorvastatin 40 mg tablet 40 mg PO DAILY 11/17/23 06/21/24 History hydroxyzine HCl 10 mg tablet 10 mg PO DAILY 02/15/24 06/21/24 History azelastine 137 mcg (0.1 %) nasal 137 mcg intranasal DAILY 03/06/24 06/21/24 History spray montelukast 10 mg tablet 10 mg PO DAILY 03/06/24 06/21/24 History promethazine 25 mg tablet 25 mg PO NEEDED PRN Nausea 03/06/24 06/21/24 History sumatriptan succinate 50 mg tablet 50 mg PO DAILY 03/06/24 06/21/24 History hydroxyzine HCl 10 mg tablet 20 mg PO HS 05/26/24 06/21/24 History isosorbide mononitrate 30 mg 30 mg PO DAILY 05/26/24 06/21/24 History tablet,extended release 24 hr linaclotide 290 mcg capsule 290 mcg PO DAILY 05/26/24 06/21/24 History (Linzess) polyethylene glycol 3350 17 gram 17 g PO BID 05/26/24 06/21/24 History oral powder packet (Miralax) New Prescriptions to Start Prescriptions: Allergies Allergy/AdvReac Type Severity Reaction Status Date / Time Penicillins Allergy Severe S-ANAPHYLAX Verified 06/21/24 15:12 IS milnacipran (From SAVELLA) Allergy Unknown Unknown Verified 06/21/24 15:12 allergy reaction Assessment and Plan *Assessment and plan (1) Degenerative disc disease, lumbar: Status: Acute Category: Medical Code(s): M51.369 - Other intervertebral disc degeneration, lumbar region without mention of lumbar back pain or lower extremity pain Plan Patient overall is doing exceptionally well for her back. I will increase her baclofen to 10 mg 3 times a day and provide a 3-month supply of this medication. Patient will return to clinic in 3 months for reevaluation of symptoms and plan of care. Patient has been instructed to contact the clinic with any concerns before the next appointment. Dr. Viramontes has reviewed this note and agrees with this plan of care. This note was dictated using voice recognition software and make contain errors or omissions. All injections are used with Lidocaine, Bupivacaine and Depo Medrol. Occasionally urine drug screen is needed to verify patient's compliance with our office pain contract. This is ordered based off specific treatments related to chronic pain with the potential to abuse certain medications.
[2024-07-03 11:07] VITALS: BP 117/81; PULSE 88; RESP 14; O2SAT 91; BMI 23.6
== END 2024-07-03 23:59 | disposition home or self-care (01) ==
PROVIDERS: PCP Family Medicine; Visit Provider Nurse Practitioner Family
DX: M51.369 Other intervertebral disc degeneration, lumbar region without mention of lumbar back pain or lower extremity pain (principal); Z87.891 Personal history of nicotine dependence; Z79.899 Other long term (current) drug therapy
CPT/HCPCS: 99212; G0463

== ENCOUNTER 2024-07-25 10:05 | Outpatient (CLI) | payer MEDICARE, SELFPAY | END 2024-07-25 23:59 | disposition home or self-care (01) | LOC: RT 10:07 | PROVIDERS: PCP Family Medicine; Visit Provider Family Medicine | DX: R00.2 Palpitations (principal) | CPT/HCPCS: 93225; 93227 ==

== ENCOUNTER 2024-08-20 07:38 | Emergency (ER) | payer MEDICARE, SELFPAY ==
[2024-08-20 07:40] VITALS: BP 98/67; PULSE 78; RESP 16; TEMP 37; O2SAT 94; BMI 24.2
--- NOTE | 2024-08-20 07:47 | XR_ITS ---
PROCEDURE INFORMATION: Exam: XR Chest Exam date and time: 08/20/2024 8:16 AM Age: 68 years old Clinical indication: Cough and other: Copd; Additional info: Copd cough TECHNIQUE: Imaging protocol: Radiologic exam of the chest. Views: 1 view. COMPARISON: No relevant prior studies available. FINDINGS: Lungs: Patchy opacities in the right lung base likely representing atelectasis or infection. Pleural spaces: Unremarkable. No pleural effusion. No pneumothorax. Heart/Mediastinum: Unremarkable. No cardiomegaly. Bones/joints: Unremarkable. IMPRESSION: Patchy opacities in the right lung base likely representing atelectasis or infection.
[2024-08-20] MEDS: predniSONE 20MG TAB 40 MG PO (07:50)
[2024-08-20] MEDS: AZITHROMYCIN 250MG TABLET 500 MG PO (07:50)
[2024-08-20] MEDS: ACETAMINOPHEN 500MG TAB 1000 MG PO (07:51)
[2024-08-20 07:53] LABS: Influenza A, PCR Not Detected (NotDetected); Influenza B, PCR Not Detected (NotDetected)
--- NOTE | 2024-08-20 07:54 | HMH.EDGENADL ---
Discharge Plan Disposition Patient Disposition: Home, Self-Care Prescriptions Prescriptions: New Paxlovid 300 mg (150 mg x 2)-100 mg tablets,dose pack See Rx Instructions .ROUTE .COMPLEX Qty: 30 0RF Rx Instructions: take TWO 150 mg tablets of nirmatrelvir with ONE 100 mg tablet of ritonavir twice daily for 5 days No Action trazodone 100 mg tablet 200 mg PO HS Patient Comments: TAKE 1 & 1/2 (ONE & ONE-HALF) TABLETS BY MOUTH AT BEDTIME donepezil [Aricept] 10 mg tablet 10 mg PO DAILY sumatriptan succinate 50 mg tablet 50 mg PO DAILY Patient Comments: TAKE ONE TABLET BY MOUTH AT ONSET OF MIGRAINE. IF SYMPTOMS PERSIST, A SECOND DOSE MAY BE TAKEN IN 2 HOURS. DO NOT EXCEED 2 DOSES IN A 24 HOUR PERIOD promethazine 25 mg tablet 25 mg PO NEEDED PRN (Reason: Nausea) Patient Comments: TAKE 1 TABLET BY MOUTH EVERY 12 HOURS NEEDED montelukast 10 mg tablet 10 mg PO DAILY Patient Comments: TAKE 1 TABLET BY MOUTH ONCE DAILY azelastine 137 mcg (0.1 %) spray,non-aerosol 137 mcg intranasal DAILY Patient Comments: USE 1 SPRAY(S) IN EACH NOSTRIL TWICE DAILY baclofen 20 mg tablet 20 mg PO TID PRN albuterol sulfate 90 mcg/actuation HFA aerosol inhaler inhalation Patient Comments: INHALE 2 PUFFS BY MOUTH 4 TIMES DAILY NEEDED FOR SHORTNESS OF BREATH OR WHEEZING bisoprolol fumarate 5 mg tablet 2.5 mg PO QDAY Qty: 30 5RF multivitamin tablet 1 tab PO QAM lamotrigine 150 mg tablet 150 mg PO BID acetaminophen [Tylenol Extra Strength] 500 mg tablet 1,000 mg PO Q6H PRN (Reason: Pain) hydroxyzine HCl 10 mg tablet 10 mg PO DAILY Patient Comments: . Rx Instructions: TAKE IN MORNING cholecalciferol (vitamin D3) 1,250 mcg (50,000 unit) capsule 1,250 mcg PO DAILY calcium citrate 200 mg (950 mg) tablet 200 mg PO BID venlafaxine 225 mg tablet extended release 24hr 225 mg PO DAILY Patient Comments: TAKE 1 TABLET BY MOUTH ONCE DAILY pantoprazole 40 mg tablet,delayed release (DR/EC) 40 mg PO DAILY Patient Comments: TAKE 1 TABLET BY MOUTH TWICE DAILY 30 MINUTES BEFORE MORNING AND EVENING MEAL atorvastatin 40 mg tablet 40 mg PO DAILY aspirin 81 mg tablet,delayed release (DR/EC) 81 mg PO DAILY Qty: 90 3RF ezetimibe [Zetia] 10 mg tablet 10 mg PO DAILY Qty: 90 3RF denosumab 60 mg/mL syringe 60 mg SQ [id number] Qty: 1 0RF oxybutynin chloride 10 MG tablet extended release 24hr 10 mg PO DAILY hydroxyzine HCl 10 mg Tablet 20 mg PO HS polyethylene glycol 3350 [Miralax] 17 gram Powder In Packet 17 g PO BID Linzess 290 mcg Capsule 290 mcg PO DAILY isosorbide mononitrate 30 mg tablet extended release 24 hr 30 mg PO DAILY Referrals Follow up/Referrals: Saul Benitez MD [Primary Care Provider] - See instructions Activity Restrictions/Add. Instructions Additional Instructions/Restrictions: At this time it was felt you are safe to be discharged home. If new or worsening symptoms please do not hesitate to return the emergency department. Please take your medications as prescribed and if your symptoms continue through the week call and schedule appointment with your family doctor to make sure you are headed in the right direction. Clinical Impressions Clinical Impression: COVID-19 Print Language Print Language: Hebrew Discharge ED Provider: Tyler William General Adult HPI General Chief complaint: Upper Respiratory Infection Stated complaint: body aches, fever, sore throat Time Seen by Provider: 08/20/24 07:39 Mode of Arrival: Ambulatory Source of Information: Patient Limitations: No Limitations Description of Symptoms (Recalled from ER Triage Doc. by RN): Reports fever, cough and body aches since yesterday. History of Present Illness HPI narrative: Patient is a 68-year-old female past medical history of COPD on nocturnal oxygen who presents emergency department for evaluation of multiple complaints. Since yesterday patient has had global body aches, worsening cough at baseline, sore throat. No chest pain reported. No abdominal pain reported. No other acute complaints at this time. Related Data Home Medications ?Medication ?Instructions ?Recorded ?Confirmed multivitamin 1 tab PO QAM Supplement 11/22/17 08/17/24 lamotrigine 150 mg tablet 150 mg PO BID antidepressant 04/29/20 08/17/24 oxybutynin chloride 10 mg 10 mg PO DAILY bladder 10/02/20 08/17/24 tablet,extended release 24 hr acetaminophen 500 mg tablet 1,000 mg PO Q6H PRN Pain 09/22/22 08/17/24 (Tylenol Extra Strength) venlafaxine 225 mg tablet,extended 225 mg PO DAILY MOOD 02/02/23 08/17/24 release 24 hr calcium citrate 200 mg PO BID SUPPLIMENT 03/26/23 07/03/24 cholecalciferol (vitamin D3) 1,250 1,250 mcg PO DAILY SUPPLIMENT 03/26/23 08/17/24 mcg (50,000 unit) capsule pantoprazole 40 mg tablet,delayed 40 mg PO DAILY GERD 09/02/23 08/17/24 release trazodone 100 mg tablet 200 mg PO HS 09/02/23 08/17/24 donepezil 10 mg tablet (Aricept) 10 mg PO DAILY 09/13/23 08/17/24 atorvastatin 40 mg tablet 40 mg PO DAILY 11/17/23 08/17/24 hydroxyzine HCl 10 mg tablet 10 mg PO DAILY 02/15/24 08/17/24 azelastine 137 mcg (0.1 %) nasal 137 mcg intranasal DAILY 03/06/24 08/17/24 spray montelukast 10 mg tablet 10 mg PO DAILY 03/06/24 08/17/24 promethazine 25 mg tablet 25 mg PO NEEDED PRN Nausea 03/06/24 08/17/24 sumatriptan succinate 50 mg tablet 50 mg PO DAILY 03/06/24 08/17/24 hydroxyzine HCl 10 mg tablet 20 mg PO HS 05/26/24 08/17/24 isosorbide mononitrate 30 mg 30 mg PO DAILY 05/26/24 08/17/24 tablet,extended release 24 hr linaclotide 290 mcg capsule 290 mcg PO DAILY 05/26/24 08/17/24 (Linzess) polyethylene glycol 3350 17 gram 17 g PO BID 05/26/24 08/17/24 oral powder packet (Miralax) albuterol sulfate 90 mcg/actuation inhalation 08/17/24 08/17/24 aerosol inhaler baclofen 20 mg tablet 20 mg PO TID PRN 08/17/24 08/17/24 Previous Rx's ?Medication ?Instructions ?Recorded aspirin 81 mg tablet,delayed 81 mg PO DAILY Heart disease #90 09/28/23 release tabs ezetimibe 10 mg tablet (Zetia) 10 mg PO DAILY Cholesterol #90 tabs 09/28/23 denosumab 60 mg/mL subcutaneous 60 mg SQ [id number] bones #1 mL 11/01/23 syringe bisoprolol fumarate 5 mg tablet 2.5 mg (1/2 x 5 mg) PO QDAY #30 08/17/24 tabs nirmatrelvir 300 mg (150 mg See Rx Instructions PO .COMPLEX 08/20/24 x2)-ritonavir 100 mg tablet,dose Covid #30 tabs pack (Paxlovid) Allergies Allergy/AdvReac Type Severity Reaction Status Date / Time Penicillins Allergy Severe S-ANAPHYLAX Verified 08/17/24 13:26 IS milnacipran (From [facility]) Allergy Unknown Unknown Verified 08/17/24 13:26 allergy reaction [facility] Disclaimer: The information contained in this section may have been updated after the patient was seen, as this information can be updated by other users. Medical History COPD mixed type Vertigo Screening for lung cancer COPD exacerbation HTN (hypertension) History of smoking 30 or more pack years History of 2019 novel coronavirus disease (COVID-19) Allergic rhinitis, unspecified Chronic obstructive pulmonary disease with acute respiratory distress Lung nodule Smoking greater than 30 pack years She quit smoking almost a year ago Dyspnea on exertion Chronic hypoxemic respiratory failure Respiratory symptoms Atypical angina Hypotension Carotid artery stenosis Diastolic dysfunction Chronic obstructive lung disease Hypertensive heart disease without heart failure Hyperlipidemia Coronary arteriosclerosis Surgical History History of gastric bypass 08/31/2023: BMI 27.6 Hx of tubal ligation Hx of appendectomy History of bladder suspension procedure Family History Other Asthma Cancer Coronary artery disease Diabetes Heart attack Hyperlipidemia Hypertension Thyroid disorder Social History Smoking Status: Former smoker tobacco type: cigarettes packs per day: 1 alcohol intake: never counseling provided: none substance use type: denies use current occupational status: other Travel in the last 8 weeks: None household members: spouse housing: house caffeine: Yes Have you lived/traveled outside [place] in past 30 days?: No Contact w/someone who lives/traveled outside [place] past 30 days?: No Exposure to someone with infectious disease in past 14 days?: No Do you have a fever (greater than 100.4 F or 38 C)?: Yes Have you tested positive for COVID-19: No Exposed to someone with COVID-19 in past 14 days?: No Do you have a sore throat?: Yes Do you have a cough?: No Do you have any weakness?: No Do you have any diarrhea?: No Are you experiencing any unusual bleeding?: No Do you have any muscle aches/pain?: No Do you have any abdominal pain?: Yes Are you experiencing loss of taste or smell?: No Other Medical History Have you received the Flu Vaccine for this season: Yes Have you received the Pneumonia Vaccine: Yes ROS Obtained: Yes Systems reviewed as appropriate & no additional complaints except as documented Physical Exam General General appearance: alert and in no apparent distress Head Head exam: atraumatic and normocephalic Eye Eye exam: Present PERRL ENT ENT exam: Present mucous membranes moist Neck Neck exam: Present normal inspection Chest Chest inspection: Present normal inspection and symmetric chest wall rise Respiratory Respiratory exam: Present normal lung sounds bilaterally; Absent respiratory distress Cardiovascular Cardiovascular exam: Present regular rate and normal rhythm Abdominal Exam Abdominal exam: Present soft; Absent tenderness Extremities Exam Extremities exam: Present normal inspection Neurological Exam Neurological exam: Present alert and CN II-XII intact; Absent motor sensory deficit Psychiatric Psychiatric exam: Present normal affect Skin Skin exam: Present warm and dry Medical Decision Making Medical Records Screening: Per USPSTF and CDC recommendations, given the prevalence of disease in our region, it is our hospital?s policy to screen for HIV and viral Hepatitis for all patients aged 18 and over and those with ongoing risk factors. Michael Inquiry Pt receiving controlled substance: No Vital Signs: 08/20/24 07:40 Temperature 98.6 F Temperature Source Oral Pulse Rate [Radial] 78 Respiratory Rate 16 Blood Pressure [Right Arm] 98/67 L Blood Pressure Mean [Right Arm] 77 Blood Pressure Source [Right Arm] Automatic Cuff Blood Pressure Position [Right Arm] Sitting 02 Sat by Pulse Oximetry 94 L Oxygen Delivery Method Room Air Lab Data Lab Results 08/20/24 07:42: SARS-CoV-2 (PCR) Detected A, Influenza A Untype (PCR) Not detected, Influenza Type B (PCR) Not detected 08/20/24 07:46: Group A Strep Rapid Negative Orders (Tests/Meds): ED MEDICATIONS Discontinued Medications Generic Name Dose Route Start Last Admin Trade Name Linsey MEREDITH Reason Stop Dose Admin Acetaminophen 1,000 mg 08/20/24 07:46 08/20/24 07:51 Acetaminophen 500mg Tab PO 08/20/24 07:47 1,000 mg ONCE ONE Administration Azithromycin 500 mg 08/20/24 07:45 08/20/24 07:50 Azithromycin 250mg Tablet PO 08/20/24 07:46 500 mg ONCE ONE Administration Ibuprofen 600 mg 08/20/24 07:46 08/20/24 07:54 Ibuprofen 600 Mg Tablet PO 08/20/24 07:47 Not Given ONCE ONE Prednisone 40 mg 08/20/24 07:45 08/20/24 07:50 Prednisone 20mg Tab PO 08/20/24 07:46 40 mg ONCE ONE Administration ORDERS Category Date Time Status CXR --portable [XR chest portable] Stat Exams 08/20/24 07:47 Taken HIV Combo Stat Lab 08/20/24 07:48 Ordered Hepatitis C Ab Qual. W/ RFX Stat Lab 08/20/24 07:48 Ordered Rapid PCR Covid and Flu A/B Stat Lab 08/20/24 07:42 Completed Rapid Strep Scrn Group A [Strep Scrn Group A (Rapid)] Lab 08/20/24 07:46 Completed Stat Strep Screen Confirmation Stat Micro 08/20/24 07:46 Received Medical Decision Narrative: In summary patient is 68-year-old female past medical history described above who presents emergency department for evaluation of cough, sore throat, diffuse myalgias. Patient is hemodynamically stable nontoxic-appearing arrival, afebrile. Differential diagnosis includes influenza, viral syndrome, strep pharyngitis, pneumonia, among others. Workup will be conducted with viral swab, strep swab, chest x-ray. Initial interventions include oral steroids and azithromycin. I consider breathing treatments and workup with hematologic labs however given well-appearing and good air movement will be deferred at this time. Initial workup reviewed by me, strep swab negative, viral swab remarkable for positive COVID. Chest x-ray informally interpreted by me, no dense lobar opacities or large pneumothorax. Upon repeat evaluation patient continued to rest in bed without oxygen requirement no significant tachypnea. Given this patient is appropriate for outpatient management at this time will be discharged with a course of Paxlovid given her comorbid condition with COPD and was given return precautions verbalized understanding. Critical Care Critical Care Time Critical Care Time: No
[2024-08-20 08:00] LABS: Strep Scrn Group A (Rapid) Negative (Negative)
[2024-08-20 08:21] LABS: Coronavirus 19, PCR Detected (NotDetected)
[2024-08-20 08:40] VITALS: BP 109/62; PULSE 82; RESP 16; TEMP 37; O2SAT 96
== END 2024-08-20 08:41 | disposition home or self-care (01) ==
PROVIDERS: Emergency Provider Emergency Medicine; PCP Family Medicine
DX: U07.1 COVID-19 (principal); R50.9 Fever, unspecified; R05.9 Cough, unspecified; M79.10 Myalgia, unspecified site; J02.9 Acute pharyngitis, unspecified; F17.210 Nicotine dependence, cigarettes, uncomplicated
CPT/HCPCS: 71045; 87430; 87636; 99283

== ENCOUNTER 2024-08-29 10:35 | Outpatient (CLI) | payer MEDICARE, SELFPAY ==
--- NOTE | 2024-08-29 10:38 | CA_ITS ---
FINAL REPORT TECHNIQUE: Casas scale, color and spectral doppler images of the bilateral carotid arteries were obtained. CLINICAL HISTORY: carotid stenosis FINDINGS: Peak systolic velocity in the right internal carotid artery is 76 cm/sec. The internal carotid to common carotid artery ratio is 1.40. There is no significant carotid artery stenosis and very mild plaque formation. The right vertebral artery is normal in direction. Peak systolic velocity in the left internal carotid artery is 88 cm/sec. The internal carotid to common carotid artery ratio is 1.52. There is no significant carotid artery stenosis and no significant plaque formation. The left vertebral artery is normal in direction. IMPRESSION: Less than 50% bilateral carotid artery stenosis. Normal peak systolic velocities and normal internal to common carotid artery ratios bilaterally. Reviewed, Interpreted and Dictated by Bobbi Mcwilliams MD Transcribed by Ursula Jackson Authenticated and [facility]
== END 2024-08-29 23:59 | disposition home or self-care (01) ==
LOC: RT 10:37
PROVIDERS: PCP Family Medicine; Visit Provider Nurse Practitioner
DX: I65.23 Occlusion and stenosis of bilateral carotid arteries (principal); R00.2 Palpitations
CPT/HCPCS: 93880

== ENCOUNTER 2024-09-28 09:05 | Outpatient (POV) | payer MEDICARE, SELFPAY ==
--- NOTE | 2024-09-28 09:19 | EXP.PAIN.SOA ---
[facility] Disclaimer: The information contained in this section may have been updated after the patient was seen, as this information can be updated by other users. Medical History COPD mixed type Vertigo Screening for lung cancer COPD exacerbation HTN (hypertension) History of smoking 30 or more pack years History of 2019 novel coronavirus disease (COVID-19) Allergic rhinitis, unspecified Chronic obstructive pulmonary disease with acute respiratory distress Lung nodule Smoking greater than 30 pack years She quit smoking almost a year ago Dyspnea on exertion Chronic hypoxemic respiratory failure Respiratory symptoms Atypical angina Hypotension Carotid artery stenosis Diastolic dysfunction Chronic obstructive lung disease Hypertensive heart disease without heart failure Hyperlipidemia Coronary arteriosclerosis Surgical History History of gastric bypass 08/31/2023: BMI 27.6 Hx of tubal ligation Hx of appendectomy History of bladder suspension procedure Family History Other Asthma Cancer Coronary artery disease Diabetes Heart attack Hyperlipidemia Hypertension Thyroid disorder Social History Smoking Status: Former smoker tobacco type: cigarettes packs per day: 1 alcohol intake: never counseling provided: none substance use type: denies use current occupational status: other Travel in the last 8 weeks: None household members: spouse housing: house caffeine: Yes PM Subjective & Objective Subjective Subjective:: Patient is a pleasant 69-year-old female who presents today for 3-month follow-up. She rates her pain today a 0 out of 10. She denies any new falls or injuries. She states overall she is doing really wonderful. Patient states she only has increased pain on occasion and notices more with times that she is traveling for the prolonged positioning. Patient is prescribed baclofen 10 mg 3 times a day from our office. She states that this medication has definitely done the trick. She states that she has not even needed to go to the chiropractor. Patient states that she is still starting active and exercising and going to the gym. She is prescribed pregabalin from an outside provider. Her Michael has been reviewed and is appropriate. Review of Systems: General: No recent weight changes, no fever, no sleep disturbances Respiratory: No cough, no shortness of air, no recurring pulmonary infections Cardiovascular/peripheral vascular: No chest pain, no palpitations, no edema, no shortness of breath Gastrointestinal: No new onset incontinence, normal bowel movements reported Genitourinary: No new onset incontinence Musculoskeletal: Low back pain Psychiatric: [Normal mood/affect] Neurological: [Denies weakness in extremities], [denies balance issues] Pain at rest (0-10 scale): 0 Objective Objective:: Physical Exam: General: Alert and oriented x3, no acute distress, pleasant and cooperative Lungs: Respirations even and unlabored, symmetrical chest expansion Eyes: PERRL Musculoskeletal: Flexion and extension of lumbar [spine] within normal limits Neurological: Speech clear, no gross sensory deficit Has patient had previous pain injection?: No Conservative treatment options previously tried: Home exercise plan Length of treatment: Longer than 12 weeks Meds Home Medications and Allergies Home Medications ?Medication ?Instructions ?Recorded ?Confirmed ?Type multivitamin 1 tab PO QAM Supplement 11/22/17 09/21/24 History lamotrigine 150 mg tablet 150 mg PO BID antidepressant 04/29/20 09/21/24 History oxybutynin chloride 10 mg 10 mg PO DAILY bladder 10/02/20 09/21/24 History tablet,extended release 24 hr acetaminophen 500 mg tablet 1,000 mg PO Q6H PRN Pain 09/22/22 09/21/24 History (Tylenol Extra Strength) venlafaxine 225 mg tablet,extended 225 mg PO DAILY MOOD 02/02/23 09/21/24 History release 24 hr calcium citrate 200 mg PO BID SUPPLIMENT 03/26/23 09/21/24 History cholecalciferol (vitamin D3) 1,250 1,250 mcg PO DAILY SUPPLIMENT 03/26/23 09/21/24 History mcg (50,000 unit) capsule pantoprazole 40 mg tablet,delayed 40 mg PO DAILY GERD 09/02/23 09/21/24 History release trazodone 100 mg tablet 200 mg PO HS 09/02/23 09/21/24 History donepezil 10 mg tablet (Aricept) 10 mg PO DAILY 09/13/23 09/21/24 History aspirin 81 mg tablet,delayed 81 mg PO DAILY Heart disease #90 09/28/23 09/21/24 Rx release tabs ezetimibe 10 mg tablet (Zetia) 10 mg PO DAILY Cholesterol #90 tabs 09/28/23 09/21/24 Rx denosumab 60 mg/mL subcutaneous 60 mg SQ [id number] bones #1 mL 11/01/23 09/21/24 Rx syringe atorvastatin 40 mg tablet 40 mg PO DAILY 11/17/23 09/21/24 History hydroxyzine HCl 10 mg tablet 10 mg PO DAILY 02/15/24 09/21/24 History azelastine 137 mcg (0.1 %) nasal 137 mcg intranasal DAILY 03/06/24 09/21/24 History spray promethazine 25 mg tablet 25 mg PO NEEDED PRN Nausea 03/06/24 09/21/24 History sumatriptan succinate 50 mg tablet 50 mg PO DAILY 03/06/24 09/21/24 History hydroxyzine HCl 10 mg tablet 20 mg PO HS 05/26/24 09/21/24 History linaclotide 290 mcg capsule 290 mcg PO DAILY 05/26/24 09/21/24 History (Linzess) polyethylene glycol 3350 17 gram 17 g PO BID 05/26/24 09/21/24 History oral powder packet (Miralax) albuterol sulfate 90 mcg/actuation inhalation 08/17/24 09/21/24 History aerosol inhaler baclofen 20 mg tablet 20 mg PO TID PRN 08/17/24 09/21/24 History clobetasol 0.05 % topical ointment 1 applic topical BID 2 weeks #45 08/29/24 09/21/24 Rx grams terconazole 0.4 % vaginal cream 1 appful vaginal HS 7 days #45 08/29/24 09/21/24 Rx grams isosorbide mononitrate 30 mg See Rx Instructions .Route 09/04/24 09/21/24 Rx tablet,extended release 24 hr .COMPLEX #90 tabs quetiapine 100 mg tablet 200 mg PO ONCE 09/21/24 09/21/24 History bisoprolol fumarate 5 mg tablet 5 mg PO QDAY #30 tabs 09/26/24 Rx New Prescriptions to Start Prescriptions: Allergies Allergy/AdvReac Type Severity Reaction Status Date / Time Penicillins Allergy Severe S-ANAPHYLAX Verified 09/21/24 15:18 IS milnacipran (From [facility]) Allergy Unknown Unknown Verified 09/21/24 15:18 allergy reaction Assessment and Plan *Assessment and plan (1) Degenerative disc disease, lumbar: Status: Acute Category: Medical Code(s): M51.369 - Other intervertebral disc degeneration, lumbar region without mention of lumbar back pain or lower extremity pain Plan Patient continues to do well with minimal interventions needed. Patient is doing great with the baclofen increase and does still have refills. She states that she does only typically take this once a day. We will wait to hear from her when she needs her next refills. Patient will return to clinic in 3 months. Patient has been instructed to contact the clinic with any concerns before the next appointment. Dr. Viramontes has reviewed this note and agrees with this plan of care. This note was dictated using voice recognition software and make contain errors or omissions. All injections are used with Lidocaine, Bupivacaine and Depo Medrol. Occasionally urine drug screen is needed to verify patient's compliance with our office pain contract. This is ordered based off specific treatments related to chronic pain with the potential to abuse certain medications.
[2024-09-28 10:35] VITALS: BP 89/60; BP 99/72; PULSE 72; RESP 16; O2SAT 95; BMI 23.8
== END 2024-09-28 23:59 | disposition home or self-care (01) ==
LOC: SC.PAIN 09:07
PROVIDERS: PCP Family Medicine; Visit Provider Nurse Practitioner Family
DX: M51.369 Other intervertebral disc degeneration, lumbar region without mention of lumbar back pain or lower extremity pain (principal); Z87.891 Personal history of nicotine dependence; Z79.899 Other long term (current) drug therapy
CPT/HCPCS: 99212; G0463

== ENCOUNTER → 2024-10-24 11:53 | Outpatient (CLI) | payer MEDICARE, SELFPAY ==
--- OUTSIDE RECORDS SUMMARY | 2024-10-31 11:56 | XMS_ITS ---
Author Organization Unknown TREATMENT PLAN [facility] Start Date Provider Encounter for Check-up [phone] [facility]
--- OUTSIDE RECORDS SUMMARY | 2024-10-31 11:56 | XMS_ITS | Continuity of Care Document ---
Author Organization [facility] Phone Care Team Providers Care Residential Solar Consultant Name Role Phone JEFERSON AGUIRRE Primary Attending EFRAÍN RICHARDSON Primary Care [phone] EFRAÍN RICHARDSON Unavailable [phone] JEFERSON AGUIRRE Admitting ALLERGIES AND ADVERSE REACTIONS ALLERGIES AND ADVERSE REACTIONS Code System Allergy Substance Adverse Reaction Date Reaction (Severity) Comment Status Reported By Updated By 7984 RXNorm Penicillin Anaphylaxis due to substance active [id number] on January 04, 2023 6:24:12 PM [facility] [id number] RXNorm SAVELLA Adverse reaction to substance PSYCH COMPLICATIONS active [id number] on January 04, 2023 6:24:12 PM [facility] FAMILY HISTORY RELATION: Father Status: Cause of : Malignant tumor of pancreas Age at : 71 SNOMED-CT Diagnosis Age At Onset [id number] Diabetes mellitus [id number] Heart disease [id number] Chronic obstructive lung disease RELATION: Mother Status: LIVING SNOMED-CT Diagnosis Age At Onset [id number] Hypertensive disorder RESULTS Patient: VINCENT NGUYEN Date of : [birth year] 5 LABORATORY RESULTS ORDER 200: COMP METABOLIC PA NIKKI (LOINC: 95426-2) ORDER DATE: July 15, 2024 2:27:00 PM [place] Specimen Source: PLASMA Specimen Type: Plasma specim en PERFORMING LAB: [address] [id number] Result Comment: Final Result Date: July 15, 2024 3:17:00 PM [facility] (TECH: DTR) LOINC TEST FLAG RESULT REFERENCE RANGE UPDA TIMOTHY BY 2951-2 Sodium [Moles/volume ] in Serum or Plasma N 136 mmol/L 136 mmol/L - 145 mmol/L July 15, 2024 3:17:00 PM UTC (TECH: DTR) 2823-3 Potassium [Moles/volume] in Serum or Plasma N 4.6 mmol/L 3.6 mmol/L - 5.0 mmol/L July 15, 2024 3:17:00 PM UTC (TECH: DTR) 5-0 Chloride [Moles/volu me] in Serum or Plasma N 101 mmol/L 98 mmol/L - 107 mmol/L July 15, 2024 3:17:00 PM UTC (TECH: DTR) 2027-9 Carbon dioxide, tota l [Moles/volume] in Serum or Plasma N 29.4 mmol/L 21.0 mmol/L - 32.0 mmol/L July 15, 2024 3:17:00 PM UTC (TECH: DTR) 58653-8 Anion gap in Blood N 10.2 J an2024 3:17:00 PM UTC (TECH: DTR) 2345-7 Glucose [Mass/volume ] in Serum or Plasma N 98 mg/dl 70 mg/dl - 120 mg/dl July 15, 2024 3:17:00 PM UTC (TECH: DTR) 6299-2 Urea nitrogen [Mass/volume] in Blood H 31 mg/dL 7 mg/dL - 18 mg/dL July 15, 2024 3:17:00 PM [place] (TECH: DTR) 45384-3 Creatinine [Moles/volume] in Blood N 0.9 mg/dL 0.6 mg/dL - 1.3 mg/dL July 15, 2024 3:17:00 PM UTC (TECH: DTR) 96073-2 Glomerular filtratio n rate/1.73 sq M.predicted by Creatinine-based formula (MDRD) N 71 mlpermin 60 mlpermin July 15, 2024 3:17:00 PM UTC (TECH: DTR) 2885-2 Protein [Mass/volume ] in Serum or Plasma N 7.4 g/dl 6.4 g/dl - 8.2 g/dl July 15, 2024 3:17:00 PM UTC (TECH: DTR) 1751-7 Albumin [Mass/volume ] in Serum or Plasma N 3.9 g/dl 3.4 g/dl - 5.0 g/dl July 15, 2024 3:17:00 PM UTC (TECH: DTR) 2336-6 Globulin [Mass/volum e] in Serum N 3.5 July 15, 2024 3:17:00 PM UTC (TECH: DTR) 1759-0 Albumin/Globulin [Ma ss Ratio] in Serum or Plasma N 1.1 0.7 - 2 July 15, 2024 3:17:00 PM UTC (TECH: DTR) 53056-5 Calcium [Mass/volume ] in Serum or Plasma N 9.4 mg/dl 8.5 mg/dl - 10.5 mg/dl July 15, 2024 3:17:00 PM UTC (TECH: DTR) 1975-2 Bilirubin.total [Mass/volume] in Serum or Plasma N 0.60 mg/dL 0.10 mg/dL - 1.00 mg/dL July 15, 2024 3:17:00 PM UTC (TECH: DTR) 1920-8 Aspartate aminotransferase [Enzymatic activity/volume] in Serum or Plasma H 38 U/L 0 U/L - 37 U/L July 15, 2024 3:17:00 PM UTC (TECH: DTR) 1742-6 Alanine aminotransferase [Enzymatic activity/volume] in Serum or Plasma H 66 U/L 0 U/L - 65 U/L July 15, 2024 3:17:00 PM UT (TECH: DTR) 6768-6 Alkaline phosphatase [Enzymatic activity/volume] in Serum or Plasma N 83 U/L 46 U/L - 116 U/L July 15, 2024 3:17:00 PM UTC (TECH: DTR) ORDER 300: CBC NO DIFF HEMOG CINDY (LOINC: 99121-7) ORDER DATE: July 15, 2024 2:27:00 PM UT Specimen Source: EDTA Specimen Type: Blood specime n with EDTA PERFORMING LAB: [address] [id number] Result Comment: Final Result Date: July 15, 2024 2:50:00 PM UT (TECH: KB2) LOINC TEST FLAG RESULT REFERENCE RANGE UPDA TIMOTHY BY 6690-2 Leukocytes [#/volume] in Blood by Automated count N 5.9 K/ul 4.0 K/ul - 10.5 K/ul July 15, 2024 2:50:00 PM UTC (TECH: KB2) 569-8 Erythrocytes [#/volume] in Blood by Automated count N 5.0 M/mm3 4.2 M/mm3 - 6.4 M/mm3 July 15, 2024 2:50:00 PM UTC (TECH: KB2) 718-7 Hemoglobin [Mass/volume] in Blood N 14.8 gm/dl 12.5 gm/dl - 16.0 gm/dl July 15, 2024 2:50:00 PM UTC (TECH: KB2) 32977-4 Hematocrit [Volume Fraction] of Blood N 44.8 % 37.0 % - 47.0 % July 15, 2024 2:50:00 PM UTC (TECH: KB2) 307-2 Erythrocyte mean corpuscular volume [Entitic volume] by Automated count N 89.4 fl 78 fl - 100 fl July 15, 2024 2:50:00 PM UTC (TECH: KB2) 785-6 Erythrocyte mean corpuscular hemoglobin [Entitic mass] by Automated count N 29.5 pg 27 pg - 31 pg July 15, 2024 2:50:00 PM UTC (TECH: KB2) 786-4 Erythrocyte mean corpuscular hemoglobin concentration [Mass/volume] by Automated count N 33.0 g/dl 32 g/dl - 36 g/dl July 15, 2024 2:50:00 PM UTC (TECH: KB2) 17370-7 Erythrocyte distribution width [Ratio] H 14.9 % 11.5 % - 14.0 % July 15, 2024 2:50:00 PM UTC (TECH: KB2) 347-3 Platelets [#/volume] in Blood by Automated count N 233 K/ul 150 K/ul - 450 K/ul July 15, 2024 2:50:00 PM UTC (TECH: KB2) 92200-6 Platelet mean volume [Entitic volume] in Blood by Automated count N 8.9 fl 6 fl - 9.5 fl July 15, 2024 2:50:00 PM UTC (TECH: KB2) 32536-3 Manual Differential panel - Blood N NO July 15, 2024 2:50:00 PM UTC (TECH: KB2) ORDER 400: PT PROTHROMBIN TI ME W INR (LOINC: 48942-2) ORDER DATE: July 15, 2024 2:27:00 PM UTC Specimen Source: PLASMA Specimen Type: Plasma specim en PERFORMING LAB: [address] [id number] Result Comment: Final Result Date: July 15, 2024 3:12:00 PM UTC (TECH: DTR) LOINC TEST FLAG [place] [address]-3 INR in Platelet poor plasma or blood by Coagulation assay N 10.4 SECONDS 9.3 SECONDS - 11.4 SECONDS July 15, 2024 3:12:00 PM UTC (TECH: DTR) 6301-6 INR in Platelet poor plasma by Coagulation assay N 1.0 Ratio 0.97 Ratio - 1.05 Ratio July 15, 2024 3:12:00 PM UTC (TECH: DTR) ORDER 500: JORDAN FIBROSURE PL US (LOINC: 44754-9) ORDER DATE: July 15, 2024 2:27:00 PM UTC Specimen Source: SERUM Specimen Type: Serum specime n PERFORMING LAB: [address] [id number] Result Comment: July 18 11:08:00 AM UTC . Result Comment: July 18, 2024 11:08:00 AM UTC This test was developed and its performance characteristics Result Comment: July 18, 2024 11:08:00 AM UTC determined by [facility]. It has not been cleared or approved Result Comment: July 18, 2024 11:08:00 AM UTC by the Food and Drug Administration. Result Comment: July 18, 2024 11:08:00 AM UTC Result Comment: July 18, 2024 11:08:00 AM UTC . Result Comment: July 18, 2024 11:08:00 AM UTC For questions regarding this report please contact customer Result Comment: July 18, 2024 11:08:00 AM UTC service Result Comment: July 18, 2024 11:08:00 AM UTC at . Result Comment: July 18, 2024 11:08:00 AM UTC Result Comment: July 18, 2024 11:08:00 AM UTC . Result Comment: July 18, 2024 11:08:00 AM UTC References: Result Comment: July 18, 2024 11:08:00 AM UTC Result Comment: July 18, 2024 11:08:00 AM UTC . Result Comment: July 18, 2024 11:08:00 AM UTC 1. Maryellen Palmer al. Diagnostic Value of Biochemical Markers Result Comment: July 18, 2024 11:08:00 AM UTC Result Comment: July 18, 2024 11:08:00 AM UTC (FibroTest) for the prediction of Liver Fibrosis in patients Result Comment: July 18, 2024 11:08:00 AM UTC with Result Comment: July 18, 2024 11:08:00 AM UTC Non-Alcoholic Fatty Liver Disease. [facility] 2006 Result Comment: July 18, 2024 11:08:00 AM UTC ; 6:6. Result Comment: July 18, 2024 11:08:00 AM UTC 2. Maritza Gutierrez et al. The Diagnostic Performance of a Simpli Result Comment: July 18, 2024 11:08:00 AM UTC fied Result Comment: July 18, 2024 11:08:00 AM UTC Blood Test (SteatoTest-2) for the Prediction of Liver Steato Result Comment: July 18, 2024 11:08:00 AM UTC sis. Result Comment: July 18, 2024 11:08:00 AM UTC Eur J Gastroenterol Hepatol. 2019; 31:393-402. Result Comment: July 18, 2024 11:08:00 AM UTC 3. Maritza Kumar al. Diagnostic performance of a new noninv Result Comment: July 18, 2024 11:08:00 AM UTC asive Result Comment: July 18, 2024 11:08:00 AM UTC test for nonalcoholic steatohepatitis using a simplified his Result Comment: July 18, 2024 11:08:00 AM UTC tological Result Comment: July 18, 2024 11:08:00 AM UTC reference. Eur J Gastroenterol Hepatol. 2018 May; 30:569-577 Result Comment: July 18, 2024 11:08:00 AM UTC . Result Comment: July 18, 2024 11:08:00 AM UTC Performed at: [facility] Result Comment: July 18, 2024 11:08:00 AM UTC [address], [place] [id number] Result Comment: July 18, 2024 11:08:00 AM UT Chemist Intern: Lolis Riley MD, Phone: [phone] Result Comment: July 18, 2024 11:08:00 AM UT Final Result Date: July 15, 2024 2:27:00 PM UTC (TECH: LAB) LOINC TEST FLAG [place] [address]-6 Swldw-7-Stwpxzlcajci n [Mass/volume] in Unspecified specimen N 266 mg/dL 110-276 July 15, 2024 2:27:00 PM UTC (TECH: LAB) 40819-2 Haptoglobin in Serum or Plasma N 88 mg/dL 37-355 July 15, 2024 2:27:00 PM UTC (TECH: LAB) 9969-7 Apolipoprotein A-I [Mass/volume] in Serum or Plasma N 167 mg/dL 116-209 July 15, 2024 2:27:00 PM UTC (TECH: LAB) 1977-8 Bilirubin.total [Pre sence] in Urine N 0.4 mg/dL 0.0-1.2 July 15, 2024 2:27:00 PM UTC (TECH: LAB) 2324-2 Gamma glutamyl trans ferase [Enzymatic activity/volume] in Serum or Plasma N 32 IU/L 0-60 July 15 2:27:00 PM UTC (TECH: LAB) 1742-6 Alanine aminotransfe rase [Enzymatic activity/volume] in Serum or Plasma H 63 IU/L 0-40 July 15 2:27:00 PM UTC (TECH: LAB) 51510-2 Aspartate aminotrans ferase [Enzymatic activity/volume] in Serum or Plasma by With P-5'-P H 42 IU/L 0-40 July 15, 2024 2:27:00 PM UTC (TECH: LAB) 2093-3 Cholesterol [Mass/vo lume] in Serum or Plasma N 122 mg/dL 100-199 July 15, 2024 2:27:00 PM UTC (TECH: LAB) 2345-7 Glucose [Mass/volume ] in Serum or Plasma H 102 mg/dL 70-99 July 15, 2024 2:27:00 PM UTC (TECH: LAB) 2571-8 Triglyceride [Mass/v olume] in Serum or Plasma N 99 mg/dL 0-149 July 15 2:27:00 PM UTC (TECH: LAB) 03018-0 Fibrosis score N Comment Julpaige 2024 2:27:00 PM UTC (TECH: LAB) 48251-7 Fibrosis stage N F1-F2 2024 2:27:00 PM UTC (TECH: LAB) 31631-7 Fibrosis score H 0.34 0.00-0.21 2024 2:27:00 PM UTC (TECH: LAB) 16672-8 Liver steatosis scor e in Serum or Plasma H 0.48 0.00-0.40 July 15, 2024 2:27:00 PM UTC (TECH: LAB) 02355-8 Liver steatosis grad e in Serum or Plasma Qualitative N Comment Cedrick silas2024 2:27:00 PM UTC (TECH: LAB) 69364-3 Liver steatosis scor e in Serum or Plasma N Comment July 15, 2024 2:27:00 PM UTC (TECH: LAB) 73135-5 Nonalcoholic steatoh epatitis score in Serum or Plasma N Comment July 15, 2024 2:27:00 PM UTC (TECH: LAB) 03989-6 Nonalcoholic steatoh epatitis grade in Serum or Plasma Qualitative N Comment July 15, 2024 2:27:00 PM UTC (TECH: LAB) 47370-2 Nonalcoholic steatoh epatitis score in Serum or Plasma H 0.79 0.00-0.25 July 15, 2024 2:27:00 PM UTC (TECH: LAB) 15813-3 Note N Comment July 15, 2024 2:27:00 PM UTC (TECH: LAB) 67864-0 Sequencing methodolo gy panel - Blood or Tissue by Molecular genetics method N Comment Tjpriyanka donaldson 2024 2:27:00 PM UTC (TECH: LAB) 3281-3 Lupus anticoagulant [interpretation] in Platelet poor plasma N Comment July 15, 2024 2:27:00 PM UTC (TECH: LAB) 8251-1 Service comment N Comment Cedrickreji rosen 2024 2:27:00 PM UTC (TECH: LAB) LABORATORY NARRATIVE RESULTS Information is not available RADIOLOGY RESULTS Information is not available PATHOLOGY NARRATIVE RESULTS Information is not available MICROBIOLOGY RESULTS No Micro Labs/Results Exist for Patient BLOOD ADMIN RESULTS Information is not available MEDICATIONS HOME MEDICATIONS Status RXNORM NDC Medication Dose Route Frequency Dates Comments Reported By Updated By Drug Treatment Unknown DISCHARGE MEDICATIONS Status RXNORM NDC Medication Dose Route Frequency Dates Comments Physician Updated By No Discharge Medication Info rmation Available INPATIENT MEDICATIONS Status RXNORM NDC Medication Dose Route Frequency Rat e Quantity Dates Comments Physician Updated By No Inpatient Medication Info rmation Available SOCIAL HISTORY SOCIAL HISTORY SNOMED-CT Social History Element Description Effective Dates Offered Cessation Comment UpdatedBy [id number] Historical Tobacco smoking status Former Smoker Quit 2020 [id number] on May 02, 2024 11:10:38 AM [facility] [id number] Historical Tobacco smoking status Current Every Day Smoker 1 ppd for 47 years [id number] on November 12, 2020 6:10:55 PM [facility] SOCIAL HISTORY - Gender Sex: Female SOCIAL HISTORY - Status : status i nformation is not available Intention in Next Year: intention information is not available SOCIAL HISTORY - Sexual Behavior Sexual Orientation Gender Identity SNOMED-CT Description SNO MED -CT Description Activity Level No of Partners Partner Type UpdatedBy Information is not available HEALTH CONCERNS Problems Concern Status Health Concern problem infor mation not available. Smoking Status Status Years Used Consumed packs p er day Health Concern smoking histo ry information not available. Family History Concern Status Health Concern family histor y information not available. ENCOUNTERS ENCOUNTER INFORMATION Reason for Visit LABS Admission July 15, 2024 2:19:00 PM [facility] G [address] [address] Discharge July 15, 2024 2:19:00 PM [facility] D ISCHARGED TO HOME OR SELF CARE ENCOUNTER DIAGNOSES Notes information is not juan j ilable. Code System Diagnosis Onset Date Diagnosis information is not available. ABSTRACT DIAGNOSES Code System Diagnosis Updated By K75.81 ICD10 NONALCOHOLIC STEATOHEPATITIS (JORDAN) [id number] on July 17, 2024 6:06:38 AM [facility] K75.81 ICD10 NONALCOHOLIC STEATOHEPATITIS (JORDAN) [id number] on July 17, 2024 6:06:40 AM [facility] CARE TEAM Care Residential Solar Consultant Role JEFERSON AGUIRRE Primary Attending EFRAÍN RICHARDSON Primary Care EFRAÍN DYLAN AGUIRRE Admitting CARE TEAM CARE drier Role on Team Status Start Date End Date Update d By DYLAN REY Referring normal July 15, 2024 5:00:00 AM [facility] July 15, 2024 2:19:00 PM [facility] [id number] on July 15, 2024 2:20:52 PM [facility] CARLA SARAVIA Attending normal July 15, 2024 5:00:00 AM [facility] July 15, 2024 2:19:00 PM [facility] [id number] on July 15, 2024 2:20:52 PM [facility] CARLA SARAVAI Admitting normal July 15, 2024 5:00:00 AM [facility] July 15, 2024 2:19:00 PM [facility] [id number] on July 15, 2024 2:20:52 PM [facility] DYLAN REY PCP normal July 15, 2024 5:00:00 AM [facility] July 15, 2024 2:19:00 PM [facility] [id number] on July 15, 2024 2:20:52 PM [facility]
== END ==
LOC: SL 10-31 11:55
PROVIDERS: PCP Family Medicine; Visit Provider Specialist
DX: G47.33 Obstructive sleep apnea (adult) (pediatric) (principal)
CPT/HCPCS: G0399

== ENCOUNTER 2024-11-24 12:48 | Outpatient (CLI) | payer MEDICARE, SELFPAY ==
--- OUTSIDE RECORDS SUMMARY | 2024-11-24 12:51 | XMS_ITS | Data Portability ---
Author Organization [place] [facility] [place] [facility], [facility] ADMIN Address [address] [place] [id number] Care Team Providers Care Business Consult Name Role Phone GENET BRUCE Primary Care Provider [phone] Assessment Encounter Date Assessment Date Assessment LastModified by Organization Details LastModified Time 12/21/2023 12/21/2023 67-year-old female with: 1) Elevated liver enzymes - Will obtain lab workup per below to rule out hepatitis, autoimmune, or hereditary/meta bolic causes. Will obtain labs at the hospital as patient reports [facility] is costly for her. - Instructed patient to avoid excess Tylenol use. Can take up to 4 g of Tylenol if needed. - Will order liver ultrasound -Diet and exercise counseled -Continue to avoid alcohol 2) History of GERD:no complaints in office today. 3) Chronic constipation: Well managed with OTC stool softeners. 4) History of colonoscopy: Last colonoscopy 11/2020 normal with poor to fair prep. Repeat screening colonoscopy is suggested for 11/2023. Will plan to schedule at follow-up 6-8 week f/u [email or web address] Not available 12/21/2023 17:17:02 03/02/2024 03/02/2024 68-year-old female with: 1) Elevated liver enzymes: First noted following bariatric surgery 12/2022. -US liver 01/17/24 was unremarkable. -Lab workup was most consistent with CISNEROS, S2-3, N3, F1-F2 by fibrosure. She has had greater than 80 lb weight loss without much change in LFTs. - Instructed patient to avoid excess Tylenol use. Can take up to 2 g of Tylenol if needed. -Diet and exercise counseled -Continue to avoid alcohol -She will f/u in 4 months for repeat labs. 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 She has been able to reduce pantoprazole to once daily, but has experienced dyspepsia when she attempted to discontinue. 3) Chronic constipation: Refractory to OTC medications. Start Linzess 290 mcg p.o. once daily. 4) History of colonoscopy: Last colonoscopy 11/2020 normal with poor to fair prep. Repeat screening colonoscopy was suggested for 11/2023. Will schedule today. f/u 4 months [email or web address] Not available 03/02/2024 09:09:10 06/26/2024 06/26/2024 68-year-old female with: 1) Elevated liver enzymes/CISNEROS: First noted following bariatric surgery 12/2022. -US liver 01/17/24 was unremarkable. -Lab workup was most consistent with CISNEROS, S2-3, N3, F1-F2 by fibrosure. She has had greater than 90 lb weight loss without much change in LFTs. Will repeat today as she has had an additional 10 lb weight loss since her last labs. -Avoid NSAIDS. She may take acetaminophen, not to exceed 2 g in 24 hours. -Diet and exercise counseled -Continue to avoid alcohol -Obtain ELF test for further risk stratification. Consider liver biopsy. 2) GERD: s/p RNY gastric bypass 12/2022. She has been able to reduce pantoprazole to once daily, but has experienced dyspepsia when she attempted to discontinue. Will continue. 3) Chronic constipation: Refractory to OTC medications as well as Linzess 290 mcg p.o. once daily. -Add Motregrity 2 g p.o. once daily. She was instructed to continue Linzess as well. I suspect she may have some degree of dyssynergia. 4) History of colonoscopy: Last colonoscopy 05/02/24. Repeat recommended 04/2029 for screening. f/u 6 months and PRN Not available 06/26/2024 13:49:07 Plan of Treatment Reminders Order Date Submit Date Provider Last Modified By Organization Details Last Modified Time Details Appointments OV EST 20 2024 09:00A M Aden Husain, CAMMIE, REPAIR SPECIALIST, [employer] SUPERVISOR-C Not available Not available Not available Establish ed Visit 15 min 2024 02:00P M Ernesto Amezcua PA-C Not available Not available Not available Lab CMP, serum or plasma 2023 [email or web address] [place] [address] (Registration ), [address], [place], [address], 07/07/2024 10:22:50 CBC [email or web address] (Registration ), [address], [place], [address], 07/07/2024 10:22:50 PT/INR 2023 024 [email or web address] [address] [place] [address] (Registration ), [address], [place], [address], 07/07/2024 10:22:50 liver fibrosis score, calculate d by ELF, serum or plasma [address] (Registration ), [address], [place], [address], 07/07/2024 10:22:50 selenium, quantitat aayush, blood 2023 024 [email or web address] [facility], [address], [address], [place], [address], 07/06/2024 13:36:28 CMP, serum or plasma 2023 024 [email or web address] [facility], [address], [address], [place], [address], 07/06/2024 13:36:30 CBC w/ auto diff 2023 024 [facility], [address], [address], [place], [address], 07/06/2024 13:36:29 HbA1c (hemoglob in A1c), blood 2023 [email or web address] [facility], [address], [address], [place], [address], 07/06/2024 13:36:30 TSH + free T4, serum 2023 [email or web address] [facility], [address], [address], [place], [address], 07/06/2024 13:36:30 lipid panel, serum 2023 [facility], [address], [address], [place], [address], 07/06/2024 13:36:30 copper, serum or plasma 2023 [email or web address] [facility], [address], [address], [place], [address], 07/06/2024 13:36:28 zinc, serum or plasma 2023 [email or web address] [facility], [address], [address], [place], [address], 07/06/2024 13:36:28 iron + TIBC + ferritin, serum 2023 [email or web address] [facility], [address], [address], [place], [address], 07/06/2024 13:36:28 folate, serum 2023 [email or web address] [facility], [address], [address], [place], [address], 07/06/2024 13:36:29 vitamin E, serum 2023 [email or web address] [facility], [address], [address], [place], [address], 07/06/2024 13:36:29 vitamin A (retinol) , serum 2023 024 [email or web address] [facility], [address], [address], [place], [address], 07/06/2024 13:36:29 prealbumi n, serum 2023 024 [email or web address] [facility], [address], [address], [place], [address], 07/06/2024 13:36:29 thiamine, QN, blood 2023 024 [facility], [address], [address], [place], [address], 07/06/2024 13:36:29 methylmal jareth, QN, serum or plasma 2023 024 [email or web address] [facility], [address], [address], [place], [address], 07/06/2024 13:36:29 vitamin D, 25-hydrox y, total, serum 2023 024 [email or web address] [facility], [address], [address], [place], [address], 07/06/2024 13:36:30 selenium, quantitat aayush, blood 2023 024 [email or web address] [facility], [address], [address], [place], [address], 03/14/2024 10:57:17 HbA1c (hemoglob in A1c), blood 2023 024 [email or web address] [facility], [address], [address], [place], [address], 03/14/2024 10:57:17 iron + TIBC + ferritin, serum 2023 024 [email or web address] [facility], [address], [address], [place], [address], 03/14/2024 10:57:17 vitamin D, 25-hydrox y, total, serum 2023 024 [email or web address] [facility], [address], [address], [place], [address], 03/14/2024 10:57:18 vitamin A (retinol) , serum 2023 024 [facility], [address], [address], [place], [address], 03/14/2024 10:57:18 thiamine, QN, blood 2023 024 [email or web address] [facility], [address], [address], [place], [address], 03/14/2024 10:57:19 methylmal jareth, QN, serum or plasma 2023 024 [email or web address] [facility], [address], [address], [place], [address], 03/14/2024 10:57:19 copper, serum or plasma 2023 024 [email or web address] [facility], [address], [address], [place], [address], 03/14/2024 10:57:16 zinc, serum or plasma 2023 024 [facility], [address], [address], [place], [address], 03/14/2024 10:57:17 CBC w/ auto diff 2023 024 [email or web address] [facility], [address], [address], [place], [address], 03/14/2024 10:57:17 CMP, serum or plasma 2023 024 [facility], [address], [address], [place], [address], 03/14/2024 10:57:17 folate, serum 2023 024 [facility], [address], [address], [place], [address], 03/14/2024 10:57:17 vitamin E, serum 2023 024 [facility], [address], [address], [place], [address], 03/14/2024 10:57:18 TSH + free T4, serum 2023 024 [email or web address] [facility], [address], [address], [place], [address], 03/14/2024 10:57:18 prealbumi n, serum 2023 024 [email or web address] [facility], [address], [address], [place], [address], 03/14/2024 10:57:18 lipid panel, serum 2023 024 [email or web address] [facility], [address], [address], [place], [address], 03/14/2024 10:57:19 CMP, serum or plasma 2023 024 [facility] (Registration ), [address], [place], [address], 12/21/2023 19:29:10 hepatitis panel (A+B+C), acute, serum [address] (Registration ), [address], [place], [address], 12/29/2023 08:19:18 hepatitis B surface Ab, quantitat aayush, serum [address] (Registration ), [address], [place], [address], 12/29/2023 08:19:18 hepatitis A Ab, total, serum [address] (Registration ), [address] [facility], [place], [address], 12/29/2023 08:19:19 igg, quantitat aayush, serum 2023 024 [facility] (Registration ), [address] [place], [address], 12/23/2023 17:11:51 mitochond rial Ab, serum 2023 024 [facility] (Registration ), [address] [place], [address], 12/23/2023 17:11:47 actin smooth muscle Ab, serum 2023 024 [facility] (Registration ), [address] [place], [address], 12/23/2023 17:11:54 YVONNE (antinucl ear antibodie s) screen, serum [address] (Registration ), [address] [place], [address], 12/29/2023 08:19:19 hemochrom atosis mutation (hfe), blood/tis zafar 2023 [email or web address] [place] [address] (Registration ), [address], [place], [address], 12/29/2023 08:19:19 iron + TIBC + ferritin, serum [email or web address] [place] [address] (Registration ), [address], [place], [address], 12/29/2023 08:19:19 cerulopla smin, serum 2023 024 [facility] (Registration ), [address], [place], [address], 12/23/2023 17:11:49 alpha-1-a ntitrypsi n (aat), QN, serum 2023 [email or web address] [place] [address] (Registration ), [address], [place], [address], 12/29/2023 08:19:19 alpha-1-a ntitrypsi n (aat) phenotype , serum [email or web address] [place] [address] (Registration ), [address] [place], [address], 12/29/2023 08:19:19 liver-kid elizabeth microsome Ab, serum 2023 [email or web address] [place] [address] (Registration ), [address] [place], [address], 12/29/2023 08:19:19 CBC [email or web address] [place] [address] (Registration ), [address] [place], [address], 12/29/2023 08:19:20 PT/INR [address] (Registration ), [address], [place], [address], 12/29/2023 08:19:20 nonalcoho lic steatohep atitis + fibrosis panel, serum or plasma [address] (Registration ), [address], [place], [address], 12/29/2023 08:19:20 acetamino phen, QN, blood [address] (Registration ), [address], [place], [address], 12/29/2023 08:19:20 Referral None recorded. Procedures None recorded. Surgeries None recorded. Imaging US, liver 2023 024 [facility] (Centralized Scheduling), [address], [place], [address], 01/17/2024 15:39:46 Medication Orders Motegrity 2 mg tablet 2023 024 [place], [address], [facility] [address], [place], [place], [id number], 06/26/2024 13:22:35 Linzess 290 mcg capsule 2023 024 [facility] [phone], [address], 03/02/2024 09:09:06 Patient TargetsNo targets recorded. Patient InstructionsNo instructions recorded. Reason for Referral None Reported. Results Created Date Observation Date Name Description Value Unit Range Abnormal Flag Note LastModifiedBy Organization Detail LastModifiedTime 12/21/19 24 12/21/2023 CBC AUTO NO DIFF (HEMO GRAM) WBC 10.4 K/uL 4.0-10 .5 Not Available [facility] ([facility]) [address] , [place], [address], 12/21/2023 17:27:02 12/21/19 24 12/21/2023 CBC AUTO NO DIFF (HEMO GRAM) RBC 4.6 M/mm3 4.2-6. 4 Not Available [facility] ([facility]) [address] , [place], [address], 12/21/2023 17:27:02 12/21/19 24 12/21/2023 CBC AUTO NO DIFF (HEMO GRAM) HGB 14.7 gm/dL 12.5-1 6.0 Not Available [facility] ([facility]) [address], [place], [address], 12/21/2023 17:27:02 12/21/19 24 12/21/2023 CBC AUTO NO DIFF (HEMO GRAM) HCT 43.3 % 37.0-4 7.0 Not Available [facility] ([facility]) [address] , [place], [address], 12/21/2023 17:27:02 12/21/19 24 12/21/2023 CBC AUTO NO DIFF (HEMO GRAM) MCV 94.3 fL 78-100 Not Available [facility] ([facility]) [address] , [place], [address], 12/21/2023 17:27:02 12/21/19 24 12/21/2023 CBC AUTO NO DIFF (HEMO GRAM) MCH 32.0 pg 27-31 high Not Available [facility] ([facility]) [address], [place], [address], 12/21/2023 17:27:02 12/21/19 24 12/21/2023 CBC AUTO NO DIFF (HEMO GRAM) MCHC 33.9 g/dL 32-36 Not Available [facility] ([facility]) [address] , [place], [address], 12/21/2023 17:27:02 12/21/19 24 12/21/2023 CBC AUTO NO DIFF (HEMO GRAM) RDW 13.3 % 11.5-1 4.0 Not Available [facility] ([facility]) [address] , [place], [address], 12/21/2023 17:27:02 12/21/19 24 12/21/2023 CBC AUTO NO DIFF (HEMO GRAM) platelet count 262 K/uL 150-45 0 Not Available [facility] ([facility]) [address] , [place], [address], 12/21/2023 17:27:02 12/21/19 24 12/21/2023 CBC AUTO NO DIFF (HEMO GRAM) MPV 9.0 fL 6-9.5 Not Available [facility] ([facility]) [address] , [place], [address], 12/21/2023 17:27:02 12/21/19 24 12/21/2023 CBC AUTO NO DIFF (HEMO GRAM) manual differential NO Not Available [facility] ([facility]) [address] , [place], [address], 12/21/2023 17:27:02 12/21/19 24 12/21/2023 IRON STUDY (IRON /TIBC /%SAT ) iron 74 mcg/m L 40-180 Not Available [facility] ([facility]) [address] , [place], [address], 12/21/2023 18:31:10 12/21/19 24 12/21/2023 IRON STUDY (IRON /TIBC /%SAT ) TIBC 324 mcg/d L 250-45 0 Not Available [facility] ([facility]) [address], [place], [address], 12/21/2023 18:31:10 12/21/19 24 12/21/2023 IRON STUDY (IRON /TIBC /%SAT ) %sat 23 15-55 Not Available [facility] ([facility]) [address] , [place], [address], 12/21/2023 18:31:10 12/21/19 24 12/21/2023 PT (PROT HROMB IN TIME) W INR prothrombin time 10.1 secon ds 9.3-11 .4 Not Available [facility] ([facility]) [address] , [place], [address], 12/21/2023 19:03:15 12/21/19 24 12/21/2023 PT (PROT HROMB IN TIME) W INR INR 1.0 ratio 0.97-1 .05 INR is inten ded to be used ONLY for patie nts on stabl e oral antic oagul ant thera py. Thera peuti c Range s: 2.0-3 .0 Usual Thera peuti c Range 2.5-3 .5 For patie nts with histo ry of Multi ple Deep Vein Throm bus or Mecha nical Heart Valve s Not Available [facility] ([facility]) [address] , [place], [address], 12/21/2023 19:03:15 12/21/19 24 12/21/2023 COMP METAB OLIC PANEL sodium 135 mmol/ L 136-14 5 low Not Available [facility] ([facility]) [address] [place], [address], 12/21/2023 19:29:10 12/21/19 24 12/21/2023 COMP METAB OLIC PANEL potassium 3.3 mmol/ L 3.6-5. 0 low Not Available [facility] ([facility]) [address] [place], [address], 12/21/2023 19:29:10 12/21/19 24 12/21/2023 COMP METAB OLIC PANEL chloride 97 mmol/ L 98-107 low Not Available [facility] ([facility]) [address], [place], [address], 12/21/2023 19:29:10 12/21/19 24 12/21/2023 COMP METAB OLIC PANEL carbon dioxide 26.9 mmol/ L 21.0-3 2.0 Not Available [facility] ([facility]) [address], [place], [address], 12/21/2023 19:29:10 12/21/19 24 12/21/2023 COMP METAB OLIC PANEL anion gap 14.4 Not Available [facility] ([facility]) [address] , [place], [address], 12/21/2023 19:29:10 12/21/19 24 12/21/2023 COMP METAB OLIC PANEL glucose 103 mg/dL 70-120 Not Available [facility] ([facility]) [address] , [place], [address], 12/21/2023 19:29:10 12/21/19 24 12/21/2023 COMP METAB OLIC PANEL BUN 36 mg/dL 7-18 high Not Available [facility] ([facility]) [address] , [place], [address], 12/21/2023 19:29:10 12/21/19 24 12/21/2023 COMP METAB OLIC PANEL creatinine 0.9 mg/dL 0.6-1. 3 Not Available [facility] ([facility]) [address] , [place], [address], 12/21/2023 19:29:10 12/21/19 24 12/21/2023 COMP METAB OLIC PANEL glomerular filtration rate >60 mlper min 60- Not Available [facility] ([facility]) [address], [place], [address], 12/21/2023 19:29:10 12/21/19 24 12/21/2023 COMP METAB OLIC PANEL total protein 7.2 g/dL 6.4-8. 2 Not Available [facility] ([facility]) [address], [place], [address], 12/21/2023 19:29:10 12/21/19 24 12/21/2023 COMP METAB OLIC PANEL albumin 4.5 g/dL 3.4-5. 0 Not Available [facility] ([facility]) [address], [place], [address], 12/21/2023 19:29:10 12/21/19 24 12/21/2023 COMP METAB OLIC PANEL globulin 2.7 Not Available [facility] ([facility]) [address] , [place], [address], 12/21/2023 19:29:10 12/21/19 24 12/21/2023 COMP METAB OLIC PANEL alb/glob ratio 1.7 0.7-2 Not Available [facility] ([facility]) [address], [place], [address], 12/21/2023 19:29:10 12/21/19 24 12/21/2023 COMP METAB OLIC PANEL calcium 9.8 mg/dL 8.5-10 .5 Not Available [facility] ([facility]) [address] , [place], [address], 12/21/2023 19:29:10 12/21/19 24 12/21/2023 COMP METAB OLIC PANEL bilirubin total 0.40 mg/dL 0.10-1 .00 Not Available [facility] ([facility]) [address] , [place], [address], 12/21/2023 19:29:10 12/21/19 24 12/21/2023 COMP METAB OLIC PANEL AST (SGOT) 53 U/L 0-37 high Not Available [facility] ([facility]) [address], [place], [address], 12/21/2023 19:29:10 12/21/19 24 12/21/2023 COMP METAB OLIC PANEL ALT (SGPT) 110 U/L 0-65 high Not Available [facility] ([facility]) [address], [place], [address], 12/21/2023 19:29:10 12/21/19 24 12/21/2023 COMP METAB OLIC PANEL alk phosphatase 93 U/L 46-116 Not Available [facility] ([facility]) [address], [place], [address], 12/21/2023 19:29:10 12/21/19 24 12/21/2023 ACETA MINOP HEN (TYLE NOL) acetaminophe n <10 ug/mL 10-30 Not Available [facility] ([facility]) [address] [facility], [place], [address], 12/21/2023 19:30:14 12/21/19 24 12/21/2023 REMI TIN ferritin, serum 50 NG/mL 3-244 Not Available [facility] ([facility]) [address] [facility], [place], [address], 12/21/2023 19:30:15 12/21/19 24 12/23/2023 ACUTE HEPAT ITIS PANEL hep A Ab, IgM Negati ve negati ve Not Available [facility] ([facility]) [address] [place], [address], 12/23/2023 17:11:44 12/21/19 24 12/23/2023 ACUTE HEPAT ITIS PANEL HBsAg screen Negati ve negati ve Not Available [facility] ([facility]) [address] [place], [address], 12/23/2023 17:11:44 12/21/19 24 12/23/2023 ACUTE HEPAT ITIS PANEL hep B core Ab, IgM Negati ve negati ve Not Available [facility] ([facility]) [address] , [place], [address], 12/23/2023 17:11:44 12/21/19 24 12/23/2023 ACUTE HEPAT ITIS PANEL HCV Ab Non Reacti ve non reacti ve Perfo rmed at: - [facility] [address] [place] [address] 1269 Lab Direc tor: Ang huitron PhD, Phone : [phone] Not Available [facility] ([facility]) [address], [place], [address], 12/23/2023 17:11:44 12/21/19 24 12/23/2023 ACUTE HEPAT ITIS PANEL hep A Ab, IgM Negati ve negati ve Not Available [facility] ([facility]) [address], [place], [address], 12/23/2023 17:11:45 12/21/19 24 12/23/2023 ACUTE HEPAT ITIS PANEL HBsAg screen Negati ve negati ve Not Available [facility] ([facility]) [address] [facility], [place], [address], 12/23/2023 17:11:45 12/21/19 24 12/23/2023 ACUTE HEPAT ITIS PANEL hep B core Ab, IgM Negati ve negati ve Not Available [facility] ([facility]) [address] [facility], [place], [address], 12/23/2023 17:11:45 12/21/19 24 12/23/2023 ACUTE HEPAT ITIS PANEL HCV Ab Non Reacti ve non reacti ve Perfo rmed at: [facility] [address] [place] [address] 1269 Lab Direc tor: Ang huitron PhD, Phone : [phone] Not Available [facility] ([facility]) [address] [facility], [place], [address], 12/23/2023 17:11:45 12/21/19 24 12/23/2023 ACUTE HEPAT ITIS PANEL interpretati on: Commen t . Not infec serenity with HCV unles s early or acute infec tion is suspe cted (whic h may be delay ed in an immun ocomp romis ed indiv idual ), or other evide nce exist s to indic ate HCV infec tion. Perfo rmed at: [facility] n [address] [facility] [place] [address] 8[address] Lab Direc tor: Ang huitron PhD, Phone : [phone] Not Available [facility] ([facility]) [address] [facility], [place], [address], 12/23/2023 17:11:45 12/21/19 24 12/23/2023 HEP B S AB ROXANNE hep B surface Ab <3.1 mIU/m L immuni ty>9.9 low Statu s of Immun ity Anti- HBs Level ----- ----- ----- --- ----- ----- ---- Incon siste nt with Immun ity 0.0 - 9.9 Consi stent with Immun ity >9.9 Eff ectiv e January 10, 2024 the refer ence inter andree will be romero ing to: Immun ity >10 Perfo rmed at: [facility] n [address], [place], [place] [address]38 Lab Direc tor: Ang huitron PhD, Phone : [phone] Not Available [facility] ([facility]) [address] [facility], [place], [address], 12/23/2023 17:11:46 12/21/19 24 12/23/2023 MITOC HONDR IAL ANTIB ODIES mitochondria l (M2) Ab <20.0 units 0.0-20 .0 Negat aayush 0.0 - 20.0 Equiv ocal 20.1 - 24.9 Posit aayush >24.9 . Mitoc hondr ial (M2) Antib odies are found in 90-96 % of patie nts with prima ry bilia ry cirrh osis. Perfo rmed at: [facility] n [address] [place] [address] Lab Direc tor: Ang huitron PhD, Phone : [phone] Not Available [facility] ([facility]) [address] [place], [address], 12/23/2023 17:11:47 12/21/19 24 12/23/2023 LIVER -KIDN EY MICRO AB liver-kidney microsomal Ab <1.0 units 0.0-20 .0 Negat aayush 0.0 - 20.0 Equiv ocal 20.1 - 24.9 Posit aayush >24.9 . LKM type 1 antib odies are detec serenity in patie nts with autoi mmune hepat itis type 2 and in up to 8% of patie nts with chron ic HCV infec tion. Perfo rmed at: [facility] [address] [place] [address] 1265 Lab Direc tor: Ang huitron PhD, Phone : [phone] Not Available [facility] ([facility]) [address] [place], [address], 12/23/2023 17:11:48 12/21/19 24 12/23/2023 CERUL OPLAS MIN ceruloplasmi n 27.1 mg/dL 19.0-3 9.0 Perfo rmed at: [facility] n [address] [place] [address] 1260 Lab Direc tor: Ang huitron PhD, Phone : [phone] Not Available [facility] ([facility]) [address] [place], [address], 12/23/2023 17:11:49 12/21/19 24 12/23/2023 IGG IgG 807 mg/dL 586-16 02 Perfo rmed at: [facility] n [address] [place] [address] 6145 Lab Direc tor: Ang huitron PhD, Phone : [phone] Not Available [facility] ([facility]) [address] [facility], [place], [address], 12/23/2023 17:11:51 12/21/19 24 12/23/2023 HEP A AB, TOTAL hep A Ab, total Negati ve negati ve Comme nt: The HAV total antib maureen assay detec ts both IgG and IgM but does not diffe renti ate betwe en them. A negat aayush resul t sugge sts susce ptibi lity to infec tion. A posit aayush resul t could be due to vacci natio n, previ ously resol viki infec tion or activ e infec tion. Testi ng for HAV IgM shoul d be perfo rmed if activ e HAV infec tion is suspe cted. [facility] les that will autom atica lly refle x posit aayuhs HAV total antib maureen resul ts to IgM (e.g. , panel #[id number] HAV Antib maureen w/ Rfx). Perfo rmed at: [facility] [address] [place] [address] 6744 Lab Direc tor: Ang huitron PhD, Phone : [phone] Not Available [facility] ([facility]) [address] [facility], [place], [address], 12/23/2023 17:11:53 12/21/19 24 12/23/2023 ACTIN (SMOO TH MUSCL E) AB actin (smooth muscle) Ab 9 units 0-19 Negat aayush 0 - 19 Weak posit aayush 20 - 30 Moder ate to stron g posit aayush >30 . Actin Antib odies are found in 52-85 % of patie nts with autoi mmune hepat itis or chron ic activ e hepat itis and in 22% of patie nts with prima ry bilia ry cirrh osis. Perfo rmed at: - [facility] [address], [place] [address] 126 Lab Direc tor: Ang huitron PhD, Phone : [phone] Not Available [facility] ([facility]) [address] , [place], [address], 12/23/2023 17:11:54 12/21/19 24 12/24/2023 CISNEROS FIBRO SURE PLUS alpha 2-macroglobu oralia, qn 283 mg/dL 110-27 6 high Not Available [facility] ([facility]) [address] , [place], [address], 12/24/2023 06:14:15 12/21/19 24 12/24/2023 CISNEROS FIBRO SURE PLUS haptoglobin 86 mg/dL 37-355 Not Available [facility] ([facility]) [address] [place], [address], 12/24/2023 06:14:15 12/21/19 24 12/24/2023 CISNEROS FIBRO SURE PLUS apolipoprote in A-1 148 mg/dL 116-20 9 Not Available [facility] ([facility]) [address] [place], [address], 12/24/2023 06:14:15 12/21/19 24 12/24/2023 CISNEROS FIBRO SURE PLUS bilirubin, total 0.4 mg/dL 0.0-1. 2 Not Available [facility] ([facility]) [address] [place], [address], 12/24/2023 06:14:15 12/21/19 24 12/24/2023 CISNEROS FIBRO SURE PLUS GGT 39 IU/L 0-60 Not Available [facility] ([facility]) [address] [place], [address], 12/24/2023 06:14:15 12/21/19 24 12/24/2023 CISNEROS FIBRO SURE PLUS ALT (SGPT) p5p 96 IU/L 0-40 high Not Available [facility] ([facility]) [address], [place], [address], 12/24/2023 06:14:15 12/21/19 24 12/24/2023 CISNEROS FIBRO SURE PLUS AST (SGOT) p5p 63 IU/L 0-40 high Not Available [facility] ([facility]) [address] [place], [address], 12/24/2023 06:14:15 12/21/19 24 12/24/2023 CISNEROS FIBRO SURE PLUS cholesterol, total 135 mg/dL 100-19 9 Not Available [facility] ([facility]) [address] [place], [address], 12/24/2023 06:14:15 12/21/19 24 12/24/2023 CISNEROS FIBRO SURE PLUS glucose, serum 105 mg/dL 70-99 high Not Available [facility] ([facility]) [address] [place], [address], 12/24/2023 06:14:15 12/21/19 24 12/24/2023 CISNEROS FIBRO SURE PLUS triglyceride s 98 mg/dL 0-149 Not Available [facility] ([facility]) [address] [place], [address], 12/24/2023 06:14:15 12/21/19 24 12/24/2023 CISNEROS FIBRO SURE PLUS fibrosis scoring: Commen t . <=0.2 1 = Stage F0 - No fibro sis 0.21 - 0.27 = Stage F0 - F1 0.27 - 0.31 = Stage F1 - Jamil l fibro sis 0.31 - 0.48 = Stage F1 - F2 0.48 - 0.58 = Stage F2 - Bridg ing fibro sis with few septa 0.58 - 0.72 = Stage F3 - Bridg ing fibro sis with many septa 0.72 - 0.74 = Stage F3 - F4 >0.74 = Stage F4 - Cirrh osis Not Available [facility] ([facility]) [address] [place], [address], 12/24/2023 06:14:15 12/21/19 24 12/24/2023 CISNEROS FIBRO SURE PLUS fibrosis stage F1-F2 Not Available [facility] ([facility]) [address] [place], [address], 12/24/2023 06:14:15 12/21/19 24 12/24/2023 CISNEROS FIBRO SURE PLUS fibrosis score 0.44 0.00-0 .21 high Not Available [facility] ([facility]) [address] [place], [address], 12/24/2023 06:14:15 12/21/19 24 12/24/2023 CISNEROS FIBRO SURE PLUS steatosis score 0.59 0.00-0 .40 high Not Available [facility] ([facility]) [address] [place], [address], 12/24/2023 06:14:15 12/21/19 24 12/24/2023 CISNEROS FIBRO SURE PLUS steatosis grade Commen t S2 - S3 Moder ate to Sever e Steat osis (Clin icall y Signi fican t) (34- 100%) Not Available [facility] ([facility]) [address] [place], [address], 12/24/2023 06:14:15 12/21/19 24 12/24/2023 CISNEROS FIBRO SURE PLUS steatosis scoring Commen t . <=0.4 0 = S0 - No Steat osis (<5%) 0.40 - 0.55 = S1 - Mild Steat osis (but Clini zuleyka Signi fican t) (5-33 %) >0.55 = S2S3- Moder ate to Sever e Steat osis (Clin icall y Signi fican t) (34-1 00%) Not Available [facility] ([facility]) [address], [place], [address], 12/24/2023 06:14:15 12/21/19 24 12/24/2023 CISNEROS FIBRO SURE PLUS cisneros scoring Commen t . <=0.2 5 = N0 - No CISNEROS 0.25 - 0.50 = N1 - Mild CISNEROS 0.50 - 0.75 = N2 - Moder ate CISNEROS >0.75 = N3 - Sever e CISNEROS Not Available [facility] ([facility]) [address] , [place], [address], 12/24/2023 06:14:15 12/21/19 24 12/24/2023 CISNEROS FIBRO SURE PLUS cisneros grade Commen t N3 - Sever e CISNEROS Not Available [facility] ([facility]) [address] , [place], [address], 12/24/2023 06:14:15 12/21/19 24 12/24/2023 CISNEROS FIBRO SURE PLUS cisneros score 0.86 0.00-0 .25 high Not Available [facility] ([facility]) [address] , [place], [address], 12/24/2023 06:14:15 12/21/19 24 12/24/2023 CISNEROS FIBRO SURE PLUS limitations Commen t . CISNEROS Fibro Sure( R) Plus is recom paul d for patie nts with suspe cted non-a lcoho lic fatty liver disea se. It is not recom paul d for patie nts with other liver disea ses. It is also not recom paul d in patie nts with Gilbe rt Disea se, acute hemol ysis, acute viral hepat itis, drug induc ed hepat itis, mitchell ic liver disea se, autoi mmune hepat itis and/o r extra -hepa tic vianney stasi s. Any of these clini apurva situa tions may lead to inacc urate quant itati ve predi ction s of fibro sis. Not Available [facility] ([facility]) [address] , [place], [address], 12/24/2023 06:14:15 12/21/19 24 12/24/2023 CISNEROS FIBRO SURE PLUS methodology: Commen t . The sachi inessa teste d are perfo rmed by Fibro Sure- Speci fic metho ds. Not inten ded for use with other diagn ostic consi derat ions. Not Available [facility] ([facility]) [address], [place], [address], 12/24/2023 06:14:15 12/21/19 24 12/24/2023 CISNEROS FIBRO SURE PLUS interpretati on: Commen t . Quant itati ve resul ts of 10 bioch emica ls in combi natio n with age and gende r, are sachi zed using a compu tatio nal algor ithm to provi de a quant itati ve surro gate marke r (0.0- 1.0) of liver fibro sis (Harwood vir F0-F4 ), hepat ic steat osis (0.0- 1.0, S0-S3 ), and Non-A lcoho lic Steat o-Hep atiti s (CISNEROS ) (0.0- 1.0, N0-N3 ). The absen ce of steat osis (S<0. 40) precl udes the diagn osis of CISNEROS. Fibro sis marke r: In a study of 171 Non-A lcoho lic Fatty Liver Disea se (NAFL D) patie nts where 23% had signi fican t NAFLD fibro sis (Harwood vir F2-F4 ) and 11% had cirrh osis by liver biops y, a fibro sis resul t of >0.3 yield ed a sensi tivit y of 83% and a speci ficit y of 78% for the detec tion of signi fican t fibro sis. 1 Steat osis marke r: In a popul ation of 2997 patie nts, where 61% had signi fican t steat osis (>=5% ) on a liver biops y, a steat osis score >0.4 had a sensi tivit y of 79% and a speci ficit y of 50% for ident ifica tion of signi fican t steat osis. 2 CISNEROS marke r: In a popul ation of 1081 NAFLD patie nts, where 51% had at least some CISNEROS by liver biops y, a predi ction of CISNEROS had a sensi tivit y of 72% for ident ifyin g CISNEROS and a speci ficit y of 71%. 3 Not Available [facility] ([facility]) [address], [place], [address], 12/24/2023 06:14:15 12/21/19 24 12/24/2023 CISNEROS FIBRO SURE PLUS comment: Commen t . This test was devel oped and its perfo rmanc e ayesha cteri stics deter mined by [employer] elena. It has not been clear ed or appro viki by the Food and Drug Admin istra tion. . For quest ions regar ding this repor t pleas e conta ct custo lester servi ce at [phone]. . Refer ences : . 1. Vito mendoza V. et al. Diagn ostic Value of Bioch emica l Marke rs (Fibr oTest ) for the predi ction of Liver Fibro sis in patie nts with Non-A lcoho lic Fatty Liver Disea se. [facility] Gastr oente rolog y 2006 ; 6:6. 2. Selwyn Luevano. et al. The Diagn ostic Perfo rmanc e of a Simpl i fied Blood Test (Stea toTes t-2) for the Predi ction of Liver Steat o sis. Eur J Gastr oente rol Hepat ol. 2019; 31:39 3-402 . 3. Selwyn Luevano. et al. Diagn ostic perfo rmanc e of a new nonin v asive test for nonal cohol ic steat ohepa titis using a simpl ified his tolog ical refer ence. Eur J Gastr oente rol Hepat ol. 2018 November; 30:56 9-577 . Perfo rmed at: - [facility] [address] , [place] [address] Lab Direc tor: Massiel ross MD, Phone : [phone] Not Available [facility] ([facility]) [address], [place], [address], 12/24/2023 06:14:15 12/21/19 24 12/31/2023 ALPHA -1-AN TITRY PSIN DEFIC DNA aat, DNA analysis Commen t Resul t: c.109 6 G>A (p.Gl u366L ys), Z allel e - Not detec serenity c.863 A>T (p.Gl u288V al), S allel e - Not detec serenity Not assoc iated with incre ased risk of devel oping clini zuleyka relev ant sympt oms of alpha -1 antit rypsi n defic iency . See Addit ional Clini apurva Infor matyeni n and Comme nts. Not Available [facility] ([facility]) [address], [place], [address], 12/31/2023 13:11:18 12/21/19 24 12/31/2023 ALPHA -1-AN TITRY PSIN DEFIC DNA additional information: Commen t . Addit ional Clini apurva Infor matyeni n: Alpha -1 antit rypsi n defic iency is an autos omal reces sive metab olic disor ninfa with varia ble sever ity and age at onset . Signs and sympt oms may inclu de incre ased risk for chron ic obstr uctiv e lung disea se that typic ally manif ests after age 30, liver disea se, and liver cance r. Liver disea se can be prese nt in infan cy as neona macy vianney stasi s (aric dice) or in adult muller as cirrh osis and fibro sis. Lung and liver disea se may be accel erate d by envir onmen macy expos ures such as smoki ng and exces sive alcoh ol use. Estab lishe d treat ments for COPD and emphy sema are used to treat lung disea se; lung and/o r liver trans plant ation may be an optio n for those with with sever e disea se. Intra venou s augme ntati on thera py may be avail able for patie nts who meet crite kishan. . Comme nts: The ZZ and SZ genot ypes accou nt for more than 95% of indiv idual s with sever e alpha -1 antit rypsi n defic iency . To rule out other varia nts, furth er testi ng of sympt omati c indiv idual s heter ozygo us for one varia nt (S or Z) or with negat aayush resul ts may inclu de pheno typin g (PI typin g), AAT level testi ng, and/o r expan ded genot yping . . Mitchell ic couns eling is recom paul d to discu ss the poten tial clini apurva impli catio ns of posit aayush resul ts, as well as recom menda tions for testi ng famil y membe rs. Mitchell ic Coord inato rs are avail able for healt h care provi ders to discu ss resul ts at [phone] ([phone] . Test Detai ls: Two varia nts sachi zed: c.109 6 G>A (p.Gl u366L ys), commo nly refer red to as the Z allel e or PI*Z c.863 A>T (p.Gl u288V al), commo nly refer red to as the S allel e or PI*S . Metho ds/Li mitat ions: DNA sachi sis of the S and Z allel es in the SERPI NA1 gene ([id number]) was perfo rmed by multi plex allel e-spe cific PCR ampli ficat ion follo wed by gel elect ropho resis . Resul ts must be combi javy with clini apurva infor matio n for the most accur ate inter preta tion. Molec ular- based testi ng is highl y accur ate, but as in any labor atory test, rare diagn ostic error s may occur . False posit aayush or false negat aayush resul ts may occur for reaso ns that inclu de mitchell ic varia nts, blood trans fusio ns, bone marro w trans plant ation , somat ic or tissu e-spe cific mosai cism, misla beled sampl es, or abhijit eous repre senta tion of famil y relat ionsh ips. . This test was devel oped and its perfo rmanc e ayesha cteri stics deter mined by [employer] . It has not been clear ed or appro viki by the Food and Drug Admin istra tion. . Refer ences : Liane neff RA, Benji ramos G, Sudheer ly ML, Aureliano s M, Fernando CE, Yennifer barbour K, Sina silverman DK, Jg t SL, Gatito BRENNER, Francheska SANTOS, Jamari franco C, Theo Olivarez. The Diagn osis and Manag ement of Alpha -1 Antit rypsi n Defic iency in the Adult . Chron ic Obstr Pulm Dis. 2016 Dec 15;3(3 ):668 -682. doi: 10.15 326/j copdf .32014. 0182. PMID: 82962 891; PMCID : PMC55 09565 . Francheska SANTOS, Nicholas winston V, Liana NOEL. Alpha -1 Antit rypsi n Defic iency . 2005May 07 Updat ed 2019November 29 . In: Cornelio MP, Rodolfo castellon HH, Blayne RA, et al., agustina rs. GeneR jonathon s(R) Inter net . Marie jones ([place]): [facility] [place]; 1992- 2020. Avail able from: https ://ww w.ncb i.nlm .nih. gov/b ooks/ NBK15 19/ Not Available [facility] ([facility]) [address] , [place], [address], 12/31/2023 13:11:18 12/21/19 24 12/31/2023 ALPHA -1-AN TITRY PSIN DEFIC DNA electronical ly signed by: Wanda Li ical [place] nent perfo rmed at [employer] [facility] RTP Noe bill [place] nent perfo rmed by: . Stefan jerez, Ph.D. , [employer], Molec ular [facility] [address] [place] [address] Perfo rmed at: TG - [employer] [facility] RTP [address] [facility], [place] , [place] [address] Lab Direc tor: Juan Green [facility] , Phone : [phone] Not Available [facility] ([facility]) [address], [place], [address], 12/31/2023 13:11:18 12/21/19 24 01/10/2024 YVONNE W/REF CHARITY IF POSIT AAYUSH antinuclear Ab, direct NEGATI VE negati ve Not Available [facility] ([facility]) [address], [place], [address], 01/10/2024 14:19:51 12/21/19 24 01/11/2024 HERED ITARY HEMOC HROMA TOSIS hereditary hemochromati osis Commen t Resul t: c.845 G>A (p.Cy s282T yr) - Not Detec serenity c.187 C>G (p.Hi s63As p) - Not Detec serenity c.193 A>T (p.Se r65Cy s) - Not Detec serenity Not assoc iated with incre ased risk to devel op clini apurva sympt oms of Hered itary Hemoc hroma tosis . In sympt omati c indiv idual s, other cause s of iron overl oad shoul d be evalu ated. See Addit ional Infor matio n and Comme nts. . Addit ional Clini apurva Infor matio n: Hered itary hemoc hroma tosis (HFE relat ed) is an autos omal reces sive iron stora ge disor ninfa. Patie nts may have a mitchell ic diagn osis of hered itary hemoc hroma tosis and never show clini apurva sympt oms. Clini apurva sympt oms typic ally appea r betwe en 40 to 60 years in males and after menop ause in femal es. Signs and sympt oms may inclu de organ damag e, prima rily in the liver , risk for hepat ocell ular carci noma, diabe inessa, and heart disea se due to iron accum ulati on. Life expec tancy may be decre ased in indiv idual s who devel op cirrh osis. Treat ment for clini zuleyka sympt omati c indiv idual s may inclu de thera peuti c phleb otomy . Liver trans plant may be used to treat end stage liver failu re. For preve ntive care, monit oring for iron overl oad is recom paul d for patie nts who are homoz ygous for c.845 G>A (p.Cy s282T yr) and have yet to exper ience clini apurva sympt oms. . Comme nts: The most commo n HFE varia nts assoc iated with hered itary hemoc hroma tosis are c.845 G>A (p.Cy s282T yr), c.187 C>G (p.Hi s63As p), c.193 A>T (p.Se r65Cy s). While patie nts homoz ygous for c.845 G>A (p.Cy s282T yr) are the most likel y to prese nt clini apurva sympt oms, less than 10% devel op clini zuleyka signi fican t iron overl oad with tissu e and organ damag e. . Mitchell ic couns selwyn is recom paul d to discu ss the poten tial clini apurva impli catio ns of posit aayush resul ts, as well as recom menda tions for testi ng famil y membe rs. Mitchell ic Coord inato rs are avail able for healt h care provi ders to discu ss resul ts at [phone] ([phone] ). . Test Detai ls: Three varia nts sachi zed: c.845 G>A (p.Cy s282T yr), commo nly refer red to as C282Y c.187 C>G (p.Hi s63As p), commo nly refer red to as H63D c.193 A>T (p.Se r65Cy s), commo nly refer red to as S65C . Metho ds/Li mitat ions: DNA Sachi sis of the HFE gene ([id number]) was perfo rmed by PCR ampli ficat ion follo wed by restr ictio n enzym e diges tion sachi ses. Resul ts must be combi javy with clini apurva infor matio n for the most accur ate inter preta tion. Molec ular- based testi ng is highl y accur ate, but as in any labor atory test, diagn ostic error s may occur . False posit aayush or false negat aayush resul ts may occur for reaso ns that inclu de mitchell ic varia nts, blood trans fusio ns, bone marro w trans plant ation , somat ic or tissu e-spe cific mosai cism, misla beled sampl es, or abhijit eous repre senta tion of famil y relat ionsh ips. This test was devel oped and its perfo rmanc e ayesha cteri stics deter mined by [facility]. It has not been clear ed or appro viki by the Food and Drug Admin istra tion. . Refer ences : Sven BR, Guanako PC, Kitty ey [place], Izabella cornejo LW, Bryan cornejo ; Ameri can Assoc iatio n for the Study of Liver Disea ses. Diagn osis and manag ement of hemoc hroma tosis : 2010 pract ice guide line by the Ameri can Assoc iatio n for the Study of Liver Disea ses. Hepat ology . 2010;5 4(1): 328-4 3. doi: 10.10 02/ p.243 30. PMID: 05416 290; PMCID : PMC31 42609 . Liliana G, Cyndie ot P, Radha weaver DW, Gemma r H, Nils hua O, Jina n S, Alsugar o I, Douglas s M, Lyn y S. EMQN best pract ice guide lines for the molec ular mitchell ic diagn osis of hered itary hemoc hroma tosis (HH). Eur J Hum [place] . 2016 Oct;2 4(4): 479-9 5. doi: 10.10 38/ej hg.20 15.12 8. Epub 2014 8. PMID: 84893 218; PMCID : PMC49 25938 . Not Available [facility] ([facility]) [address], [place], [address], 01/11/2024 10:13:41 12/21/19 24 01/11/2024 HERED ITARY HEMOC HROMA TOSIS reviewed by: Wanda luevano Techn ical [place] nent perfo rmed at [facility] RTP Noe bill [place] nent perfo rmed by: Chauncey Zuñiga, Ph.D. , [employer], Molec ular [facility] [address] [facility] [place] Perfo rmed at: TG - [facility] RTP [address] [facility] , [place] [address] Lab Dire tor: Juan Green [facility] , Phone : [phone] Not Available [facility] ([facility]) [address] [facility], [place], [address], 01/11/2024 10:13:41 03/06/20 24 03/07/2024 FE+TI BC+FE R iron bind.cap.(TI BC) 333 ug/dL 250-45 0 normal Not Available [facility] ([facility]) [address] [place], [address], 03/14/2024 18:37:18 03/06/20 24 03/07/2024 FE+TI BC+FE R UIBC 231 ug/dL 118-36 9 normal Not Available [facility] ([facility]) [address] [place], [address], 03/14/2024 18:37:18 03/06/20 24 03/07/2024 FE+TI BC+FE R iron 102 ug/dL 27-139 normal Not Available [facility] ([facility]) [address] [place], [address], 03/14/2024 18:37:18 03/06/20 24 03/07/2024 FE+TI BC+FE R iron saturation 31 % 15-55 normal Not Available [facility] ([facility]) [address] [place], [address], 03/14/2024 18:37:18 03/06/20 24 03/07/2024 FE+TI BC+FE R ferritin 29 NG/mL 15-150 normal Not Available [facility] ([facility]) [address] [place], [address], 03/14/2024 18:37:18 03/06/20 24 03/07/2024 TSH+F REE T4 TSH 1.870 uIU/m L 0.450- 4.500 normal Not Available [facility] ([facility]) [address] [place], [address], 03/14/2024 18:37:18 03/06/2003/07/2024 TSH+F REE T4 T4,free(dire ct) 0.77 NG/dL 0.82-1 .77 below low normal Not Available [facility] ([facility]) [address] [place], [address], 03/14/2024 18:37:18 03/06/20 24 03/07/2024 CBC WITH DIFFE RENTI AL/PL ATELE T WBC 5.0 x10e3 /uL 3.4-10 .8 normal Not Available [facility] ([facility]) [address] [place], [address], 03/14/2024 18:37:18 03/06/20 24 03/07/2024 CBC WITH DIFFE RENTI AL/PL ATELE T RBC 4.62 x10e6 /uL 3.77-5 .28 normal Not Available [facility] ([facility]) [address] [place], [address], 03/14/2024 18:37:18 03/06/20 24 03/07/2024 CBC WITH DIFFE RENTI AL/PL ATELE T hemoglobin 14.1 g/dL 11.1-1 5.9 normal Not Available [facility] ([facility]) [address] [facility], [place], [address], 03/14/2024 18:37:18 03/06/20 24 03/07/2024 CBC WITH DIFFE RENTI AL/PL ATELE T hematocrit 44.3 % 34.0-4 6.6 normal Not Available [facility] ([facility]) [address] [facility], [place], [address], 03/14/2024 18:37:18 03/06/20 24 03/07/2024 CBC WITH DIFFE RENTI AL/PL ATELE T MCV 96 fL 79-97 normal Not Available [facility] ([facility]) [address] [facility], [place], [address], 03/14/2024 18:37:18 03/06/20 24 03/07/2024 CBC WITH DIFFE RENTI AL/PL ATELE T MCH 30.5 pg 26.6-3 3.0 normal Not Available [facility] ([facility]) [address] [facility], [place], [address], 03/14/2024 18:37:18 03/06/20 24 03/07/2024 CBC WITH DIFFE RENTI AL/PL ATELE T MCHC 31.8 g/dL 31.5-3 5.7 normal Not Available [facility] ([facility]) [address] [place], [address], 03/14/2024 18:37:18 03/06/20 24 03/07/2024 CBC WITH DIFFE RENTI AL/PL ATELE T RDW 12.4 % 11.7-1 5.4 Not Available [facility] ([facility]) [address] [place], [address], 03/14/2024 18:37:18 03/06/20 24 03/07/2024 CBC WITH DIFFE RENTI AL/PL ATELE T platelets 232 x10e3 /uL 150-45 0 normal Not Available [facility] ([facility]) [address] [facility], [place], [address], 03/14/2024 18:37:18 03/06/20 24 03/07/2024 CBC WITH DIFFE RENTI AL/PL ATELE T neutrophils 53 % not estab. normal Not Available [facility] [facility] [address] [facility] [address], [place], [address], 03/14/2024 18:37:18 03/06/20 24 03/07/2024 CBC WITH DIFFE RENTI AL/PL ATELE T lymphs 29 % not estab. normal Not Available [facility] ([facility]) [address] [facility] [address], [place], [address], 03/14/2024 18:37:18 03/06/20 24 03/07/2024 CBC WITH DIFFE RENTI AL/PL ATELE T monocytes 12 % not estab. normal Not Available [facility] ([facility]) [address] [facility] [address], [place], [address], 03/14/2024 18:37:18 03/06/20 24 03/07/2024 CBC WITH DIFFE RENTI AL/PL ATELE T eos 5 % not estab. normal Not Available [facility] ([facility]) [address] [facility] [address], [place], [address], 03/14/2024 18:37:18 03/06/20 24 03/07/2024 CBC WITH DIFFE RENTI AL/PL ATELE T basos 1 % not estab. normal Not Available [facility] ([facility]) [address] [facility] [address], [place], [address], 03/14/2024 18:37:18 03/06/20 24 03/07/2024 CBC WITH DIFFE RENTI AL/PL ATELE T immature cells [employer] Not Available [facility] ([facility]) [address] [facility] [address], [place], [address], 03/14/2024 18:37:18 03/06/20 24 03/07/2024 CBC WITH DIFFE RENTI AL/PL ATELE T neutrophils (absolute) 2.6 x10e3 /uL 1.4-7. 0 normal Not Available [facility] ([facility]) [address] [place], [address], 03/14/2024 18:37:18 03/06/20 24 03/07/2024 CBC WITH DIFFE RENTI AL/PL ATELE T lymphs (absolute) 1.5 x10e3 /uL 0.7-3. 1 normal Not Available [facility] ([facility]) [address] [place], [address], 03/14/2024 18:37:18 03/06/20 24 03/07/2024 CBC WITH DIFFE RENTI AL/PL ATELE T monocytes(ab solute) 0.6 x10e3 /uL 0.1-0. 9 normal Not Available [facility] ([facility]) [address] [facility], [place], [address], 03/14/2024 18:37:18 03/06/20 24 03/07/2024 CBC WITH DIFFE RENTI AL/PL ATELE T eos (absolute) 0.3 x10e3 /uL 0.0-0. 4 normal Not Available [facility] ([facility]) [address] [place], [address], 03/14/2024 18:37:18 03/06/20 24 03/07/2024 CBC WITH DIFFE RENTI AL/PL ATELE T baso (absolute) 0.1 x10e3 /uL 0.0-0. 2 normal Not Available [facility] ([facility]) [address] [place], [address], 03/14/2024 18:37:18 03/06/20 24 03/07/2024 CBC WITH DIFFE RENTI AL/PL ATELE T immature granulocytes 0 % not estab. Not Available [facility] ([facility]) [address] [place], [address], 03/14/2024 18:37:18 03/06/20 24 03/07/2024 CBC WITH DIFFE RENTI AL/PL ATELE T immature grans (abs) 0.0 x10e3 /uL 0.0-0. 1 Not Available [facility] ([facility]) [address] [facility], [place], [address], 03/14/2024 18:37:18 03/06/20 24 03/07/2024 CBC WITH DIFFE RENTI AL/PL ATELE T NRBC [employer] Not Available [facility] ([facility]) [address] [facility], [place], [address], 03/14/2024 18:37:18 03/06/20 24 03/07/2024 CBC WITH DIFFE RENTI AL/PL ATELE T hematology comments: [employer] Not Available [facility] ([facility]) [address] [facility], [place], [address], 03/14/2024 18:37:18 03/06/20 24 03/07/2024 COMP. METAB OLIC PANEL (14) glucose 93 mg/dL 70-99 normal Not Available [facility] ([facility]) [address] [facility], [place], [address], 03/14/2024 18:37:19 03/06/20 24 03/07/2024 COMP. METAB OLIC PANEL (14) BUN 32 mg/dL 8-27 above high normal Not Available [facility] ([facility]) [address] [facility], [place], [address], 03/14/2024 18:37:19 03/06/20 24 03/07/2024 COMP. METAB OLIC PANEL (14) creatinine 0.91 mg/dL 0.57-1 .00 normal Not Available [facility] ([facility]) [address] [facility], [place], [address], 03/14/2024 18:37:19 03/06/20 24 03/07/2024 COMP. METAB OLIC PANEL (14) eGFR 70 mL/mi n/1.7 3 >59 normal Not Available [facility] ([facility]) [address] [place], [address], 03/14/2024 18:37:19 03/06/20 24 03/07/2024 COMP. METAB OLIC PANEL (14) BUN/creatini ne ratio 35 12-28 above high normal Not Available [facility] ([facility]) [address] [facility], [place], [address], 03/14/2024 18:37:19 03/06/20 24 03/07/2024 COMP. METAB OLIC PANEL (14) sodium 138 mmol/ L 134-14 4 normal Not Available [facility] ([facility]) [address] [facility], [place], [address], 03/14/2024 18:37:19 03/06/20 24 03/07/2024 COMP. METAB OLIC PANEL (14) potassium 4.2 mmol/ L 3.5-5. 2 normal Not Available [facility] ([facility]) [address] [place], [address], 03/14/2024 18:37:19 03/06/20 24 03/07/2024 COMP. METAB OLIC PANEL (14) chloride 101 mmol/ L 96-106 normal Not Available [facility] ([facility]) [address] [place], [address], 03/14/2024 18:37:19 03/06/20 24 03/07/2024 COMP. METAB OLIC PANEL (14) carbon dioxide, total 24 mmol/ L 20-29 normal Not Available [facility] ([facility]) [address] [place], [address], 03/14/2024 18:37:19 03/06/20 24 03/07/2024 COMP. METAB OLIC PANEL (14) calcium 9.4 mg/dL 8.7-10 .3 normal Not Available [facility] ([facility]) [address] [facility] [place], [address], 03/14/2024 18:37:19 03/06/20 24 03/07/2024 COMP. METAB OLIC PANEL (14) protein, total 6.3 g/dL 6.0-8. 5 normal Not Available [facility] ([facility]) [address] [facility] [place], [address], 03/14/2024 18:37:19 03/06/20 24 03/07/2024 COMP. METAB OLIC PANEL (14) albumin 4.1 g/dL 3.9-4. 9 normal Not Available [facility] ([facility]) [address] [facility] [place], [address], 03/14/2024 18:37:19 03/06/20 24 03/07/2024 COMP. METAB OLIC PANEL (14) globulin, total 2.2 g/dL 1.5-4. 5 Not Available [facility] ([facility]) [address] [facility] [place], [address], 03/14/2024 18:37:19 03/06/20 24 03/07/2024 COMP. METAB OLIC PANEL (14) bilirubin, total 0.3 mg/dL 0.0-1. 2 normal Not Available [facility] ([facility]) [address] [facility] [place], [address], 03/14/2024 18:37:19 03/06/20 24 03/07/2024 COMP. METAB OLIC PANEL (14) alkaline phosphatase 80 IU/L 44-121 normal Not Available [facility] ([facility]) [address] [facility] [place], [address], 03/14/2024 18:37:19 03/06/20 24 03/07/2024 COMP. METAB OLIC PANEL (14) AST (SGOT) 47 IU/L 0-40 above high normal Not Available [facility] ([facility]) [address] [facility], [place], [address], 03/14/2024 18:37:19 03/06/20 24 03/07/2024 COMP. METAB OLIC PANEL (14) ALT (SGPT) 58 IU/L 0-32 above high normal Not Available [facility] ([facility]) [address] [facility], [place], [address], 03/14/2024 18:37:19 03/06/20 24 03/07/2024 LIPID PANEL cholesterol, total 119 mg/dL 100-19 9 normal Not Available [facility] ([facility]) [address] [place], [address], 03/14/2024 18:37:19 03/06/20 24 03/07/2024 LIPID PANEL triglyceride s 75 mg/dL 0-149 normal Not Available [facility] ([facility]) [address] [place], [address], 03/14/2024 18:37:19 03/06/20 24 03/07/2024 LIPID PANEL HDL cholesterol 51 mg/dL >39 normal Not Available [facility] ([facility]) [address] [place], [address], 03/14/2024 18:37:19 03/06/20 24 03/07/2024 LIPID PANEL VLDL cholesterol apurva 15 mg/dL 5-40 Not Available [facility] ([facility]) [address] [place], [address], 03/14/2024 18:37:19 03/06/20 24 03/07/2024 LIPID PANEL LDL chol calc ([facility]) 53 mg/dL 0-99 Not Available [facility] ([facility]) [address] [place], [address], 03/14/2024 18:37:19 03/06/20 24 03/07/2024 LIPID PANEL LDL calc comment: [employer] Not Available [facility] ([facility]) [address] [facility], [place], [address], 03/14/2024 18:37:19 03/06/2003/14/2024 VITAM IN E vitamin E(alpha tocopherol) 12.2 mg/L 9.0-29 .0 Not Available [facility] ([facility]) [address] [facility], [place], [address], 03/14/2024 18:37:20 03/06/20 24 03/14/2024 VITAM IN E vitamin E(gamma tocopherol) 0.8 mg/L 0.5-4. 9 Refer ence inter vals for alpha and gamma -toco phero l deter mined from [facility]ami natio n Surve y, 2004- 2005. Indiv idual s with alpha -toco phero l level s less than 5.0 mg/L are consi dered vitam in E defic ient. Not Available [facility] ([facility]) [address] [facility], [place], [address], 03/14/2024 18:37:20 03/06/2003/07/2024 HEMOG LOBIN A1C hemoglobin A1C 5.4 % 4.8-5. 6 normal Predi abete s: 5.7 - 6.4 Diabe inessa: >6.4 Glyce amauri contr ol for adult s with diabe inessa: <7.0 Not Available [facility] ([facility]) [address] [facility], [place], [address], 03/14/2024 18:37:20 03/06/2003/07/2024 FOLAT E (FOLI C ACID) , SERUM folate (folic acid), serum >20.0 NG/mL >3.0 A serum folat e yanet ntrat ion of less than 3.1 ng/mL is consi dered to repre sent clini apurva defic iency . Not Available [facility] ([facility]) [address] [facility], [place], [address], 03/14/2024 18:37:21 03/06/20 24 03/14/2024 VITAM IN A, SERUM vitamin A 52.6 ug/dL 22.0-6 9.5 Refer ence inter vals for vitam in A deter mined from [facility] inter nal studi es. Indiv idual s with vitam in A less than 20 ug/dL are consi dered vitam in A defic ient and those with serum yanet ntrat ions less than 10 ug/dL are consi dered sever vinod defic ient. This test was devel oped and its perfo rmanc e ayesha cteri stics deter mined by [facility]. It has not been clear ed or appro viki by the Food and Drug Admin istra tion. Not Available [facility] ([facility]) [address] [facility], [place], [address], 03/14/2024 18:37:21 03/06/20 24 03/07/2024 VITAM IN D, 25-HY DROXY vitamin D, 25-hydroxy 80.9 NG/mL 30.0-1 00.0 Vitam in D defic iency has been defin ed by the Insti tute of Medic ine and an Endoc rine Socie ty pract ice guide line as a level of serum 25-OH vitam in D less than 20 ng/mL (1,2) . The Endoc rine Socie ty went on to [facility] er defin e vitam in D insuf ficie ncy as a level betwe en 21 and 29 ng/mL (2). 1. IOM (Inst itute of Medic ine). 2009. Dieta ry refer ence intak es for calci um and D. Joanna roque [place]: The [facility] . 2. Junie lugo [place], Garrick wallace [place], Valeria off-F christen i TURCIOS, et al. Evalu ation , treat ment, and preve ntion of vitam in D defic iency : an Endoc rine Socie ty clini apurva pract ice guide line. JCEM. 2010; 96(7) :1911 -30. Not Available [facility] ([facility]) [address] [facility] [place], [address], 03/14/2024 18:37:21 03/06/20 24 03/12/2024 VITAM IN B1 (THIA MINE) , BLOOD vit. B1, whole blood 290.9 nmol/ L 66.5-2 00.0 above high normal Not Available [facility] ([facility]) [address] [facility], [place], [address], 03/14/2024 18:37:22 03/06/20 24 03/12/2024 METHY LMALO ALICIA ACID, SERUM methylmaloni c acid, serum 360 nmol/ L 0-378 Not Available [facility] ([facility]) [address] [facility], [place], [address], 03/14/2024 18:37:22 03/06/20 24 03/08/2024 COPPE R, SERUM OR PLASM A copper, serum or plasma 117 ug/dL 80-158 Detec tion Limit = 5 Not Available [facility] ([facility]) [address] [facility], [place], [address], 03/14/2024 18:37:23 03/06/20 24 03/08/2024 ZINC, PLASM A OR SERUM zinc, plasma or serum 87 ug/dL 44-115 normal Detec tion Limit = 5 Not Available [facility] ([facility]) [address] [facility], [place], [address], 03/14/2024 18:37:23 03/06/20 24 03/07/2024 PREAL BUMIN prealbumin 20 mg/dL 10-36 Not Available [facility] ([facility]) [address] [facility], [place], [address], 03/14/2024 18:37:23 03/06/20 24 03/08/2024 SELEN IUM, BLOOD selenium, blood 168 ug/L 100-34 0 Detec tion Limit = 10 Not Available [facility] ([facility]) [address], [place], [address], 03/14/2024 18:37:24 07/15/19 25 07/15/2024 CBC NO DIFF (HEMO GRAM) WBC 5.9 K/uL 4.0-10 .5 Not Available [facility] ([facility]) [address] [facility], [place], [address], 07/15/2024 09:51:52 07/15/19 25 07/15/2024 CBC NO DIFF (HEMO GRAM) RBC 5.0 M/mm3 4.2-6. 4 Not Available [facility] ([facility]) [address] [facility], [place], [address], 07/15/2024 09:51:52 07/15/19 25 07/15/2024 CBC NO DIFF (HEMO GRAM) HGB 14.8 gm/dL 12.5-1 6.0 Not Available [facility] ([facility]) [address] [facility], [place], [address], 07/15/2024 09:51:52 07/15/19 25 07/15/2024 CBC NO DIFF (HEMO GRAM) HCT 44.8 % 37.0-4 7.0 Not Available [facility] ([facility]) [address] [facility], [place], [address], 07/15/2024 09:51:52 07/15/19 25 07/15/2024 CBC NO DIFF (HEMO GRAM) MCV 89.4 fL 78-100 Not Available [facility] ([facility]) [address] [place], [address], 07/15/2024 09:51:52 07/15/19 25 07/15/2024 CBC NO DIFF (HEMO GRAM) MCH 29.5 pg 27-31 Not Available [facility] ([facility]) [address] [place], [address], 07/15/2024 09:51:52 07/15/19 25 07/15/2024 CBC NO DIFF (HEMO GRAM) MCHC 33.0 g/dL 32-36 Not Available [facility] ([facility]) [address] , [place], [address], 07/15/2024 09:51:52 07/15/19 25 07/15/2024 CBC NO DIFF (HEMO GRAM) RDW 14.9 % 11.5-1 4.0 high Not Available [facility] ([facility]) [address] , [place], [address], 07/15/2024 09:51:52 07/15/19 25 07/15/2024 CBC NO DIFF (HEMO GRAM) platelet count 233 K/uL 150-45 0 Not Available [facility] ([facility]) [address] , [place], [address], 07/15/2024 09:51:52 07/15/19 25 07/15/2024 CBC NO DIFF (HEMO GRAM) MPV 8.9 fL 6-9.5 Not Available [facility] ([facility]) [address] , [place], [address], 07/15/2024 09:51:52 07/15/1907/15/2024 CBC NO DIFF (HEMO GRAM) manual differential NO Not Available [facility] ([facility]) [address] , [place], [address], 07/15/2024 09:51:52 07/15/19 25 07/15/2024 PT (PROT HROMB IN TIME) W INR prothrombin time 10.4 secon ds 9.3-11 .4 Not Available [facility] ([facility]) [address] , [place], [address], 07/15/2024 10:13:39 07/15/19 25 07/15/2024 PT (PROT HROMB IN TIME) W INR INR 1.0 ratio 0.97-1 .05 INR is inten ded to be used ONLY for patie nts on stabl e oral antic oagul ant thera py. Thera peuti c Range s: 2.0-3 .0 Usual Thera peuti c Range 2.5-3 .5 For patie nts with histo ry of Multi ple Deep Vein Throm bus or Mecha nical Heart Valve s Not Available [facility] ([facility]) [address] [facility], [place], [address], 07/15/2024 10:13:39 07/15/19 25 07/15/2024 COMP METAB OLIC PANEL sodium 136 mmol/ L 136-14 5 Not Available [facility] ([facility]) [address] [facility], [place], [address], 07/15/2024 10:18:53 07/15/19 25 07/15/2024 COMP METAB OLIC PANEL potassium 4.6 mmol/ L 3.6-5. 0 Not Available [facility] ([facility]) [address] [facility], [place], [address], 07/15/2024 10:18:53 07/15/19 25 07/15/2024 COMP METAB OLIC PANEL chloride 101 mmol/ L 98-107 Not Available [facility] ([facility]) [address] [place], [address], 07/15/2024 10:18:53 07/15/19 25 07/15/2024 COMP METAB OLIC PANEL carbon dioxide 29.4 mmol/ L 21.0-3 2.0 Not Available [facility] ([facility]) [address] [place], [address], 07/15/2024 10:18:53 07/15/19 25 07/15/2024 COMP METAB OLIC PANEL anion gap 10.2 Not Available [facility] ([facility]) [address] , [place], [address], 07/15/2024 10:18:53 07/15/19 25 07/15/2024 COMP METAB OLIC PANEL glucose 98 mg/dL 70-120 Not Available [facility] ([facility]) [address] , [place], [address], 07/15/2024 10:18:53 07/15/19 25 07/15/2024 COMP METAB OLIC PANEL BUN 31 mg/dL 7-18 high Not Available [facility] ([facility]) [address] , [place], [address], 07/15/2024 10:18:53 07/15/19 25 07/15/2024 COMP METAB OLIC PANEL creatinine 0.9 mg/dL 0.6-1. 3 Not Available [facility] ([facility]) [address] , [place], [address], 07/15/2024 10:18:53 07/15/19 25 07/15/2024 COMP METAB OLIC PANEL glomerular filtration rate 71 mlper min 60- GFR LIMIT ATION : The eGFR equat ion CKD-E PI 2020 is not appli cable for pedia tric patie nts or great er than 90 years of age. The follo wing condi tions may alter the GFR resul t: extre mes in body size, malnu triti on or obesi ty, skele macy muscl e disea se, parap legia or quadr ipleg ia, veget malachi diet or rapid ly romero ing kiney funct ion. Not Available [facility] ([facility]) [address] , [place], [address], 07/15/2024 10:18:53 07/15/19 25 07/15/2024 COMP METAB OLIC PANEL total protein 7.4 g/dL 6.4-8. 2 Not Available [facility] ([facility]) [address] , [place], [address], 07/15/2024 10:18:53 07/15/19 25 07/15/2024 COMP METAB OLIC PANEL albumin 3.9 g/dL 3.4-5. 0 Not Available [facility] ([facility]) [address], [place], [address], 07/15/2024 10:18:53 07/15/19 25 07/15/2024 COMP METAB OLIC PANEL globulin 3.5 Not Available [facility] ([facility]) [address] , [place], [address], 07/15/2024 10:18:53 07/15/19 25 07/15/2024 COMP METAB OLIC PANEL alb/glob ratio 1.1 0.7-2 Not Available [facility] ([facility]) [address] , [place], [address], 07/15/2024 10:18:53 07/15/19 25 07/15/2024 COMP METAB OLIC PANEL calcium 9.4 mg/dL 8.5-10 .5 Not Available [facility] ([facility]) [address] , [place], [address], 07/15/2024 10:18:53 07/15/19 25 07/15/2024 COMP METAB OLIC PANEL bilirubin total 0.60 mg/dL 0.10-1 .00 Not Available [facility] ([facility]) [address] , [place], [address], 07/15/2024 10:18:53 07/15/19 25 07/15/2024 COMP METAB OLIC PANEL AST (SGOT) 38 U/L 0-37 high Not Available [facility] ([facility]) [address] , [place], [address], 07/15/2024 10:18:53 07/15/19 25 07/15/2024 COMP METAB OLIC PANEL ALT (SGPT) 66 U/L 0-65 high Not Available [facility] ([facility]) [address], [place], [address], 07/15/2024 10:18:53 07/15/19 25 07/15/2024 COMP METAB OLIC PANEL alk phosphatase 83 U/L 46-116 Not Available [facility] ([facility]) [address], [place], [address], 07/15/2024 10:18:53 07/15/19 25 07/18/2024 CISNEROS FIBRO SURE PLUS alpha 2-macroglobu oralia, qn 266 mg/dL 110-27 6 Not Available [facility] ([facility]) [address] [facility], [place], [address], 07/18/2024 06:10:53 07/15/19 25 07/18/2024 CISNEROS FIBRO SURE PLUS haptoglobin 88 mg/dL 37-355 Not Available [facility] ([facility]) [address] [facility], [place], [address], 07/18/2024 06:10:53 07/15/19 25 07/18/2024 CISNEROS FIBRO SURE PLUS apolipoprote in A-1 167 mg/dL 116-20 9 Not Available [facility] ([facility]) [address] [facility], [place], [address], 07/18/2024 06:10:53 07/15/19 25 07/18/2024 CISNEROS FIBRO SURE PLUS bilirubin, total 0.4 mg/dL 0.0-1. 2 Not Available [facility] ([facility]) [address] [facility], [place], [address], 07/18/2024 06:10:53 07/15/19 25 07/18/2024 CISNEROS FIBRO SURE PLUS GGT 32 IU/L 0-60 Not Available [facility] ([facility]) [address] [facility], [place], [address], 07/18/2024 06:10:53 07/15/19 25 07/18/2024 CISNEROS FIBRO SURE PLUS ALT (SGPT) p5p 63 IU/L 0-40 high Not Available [facility] ([facility]) [address] [place], [address], 07/18/2024 06:10:53 07/15/19 25 07/18/2024 CISNEROS FIBRO SURE PLUS AST (SGOT) p5p 42 IU/L 0-40 high Not Available [facility] ([facility]) [address], [place], [address], 07/18/2024 06:10:53 07/15/19 25 07/18/2024 CISNEROS FIBRO SURE PLUS cholesterol, total 122 mg/dL 100-19 9 Not Available [facility] ([facility]) [address] [place], [address], 07/18/2024 06:10:53 07/15/19 25 07/18/2024 CISNEROS FIBRO SURE PLUS glucose, serum 102 mg/dL 70-99 high Not Available [facility] ([facility]) [address] [place], [address], 07/18/2024 06:10:53 07/15/19 25 07/18/2024 CISNEROS FIBRO SURE PLUS triglyceride s 99 mg/dL 0-149 Not Available [facility] ([facility]) [address] [place], [address], 07/18/2024 06:10:53 07/15/19 25 07/18/2024 CISNEROS FIBRO SURE PLUS fibrosis scoring: Commen t . <=0.2 1 = Stage F0 - No fibro sis 0.21 - 0.27 = Stage F0 - F1 0.27 - 0.31 = Stage F1 - Jamil l fibro sis 0.31 - 0.48 = Stage F1 - F2 0.48 - 0.58 = Stage F2 - Bridg ing fibro sis with few septa 0.58 - 0.72 = Stage F3 - Bridg ing fibro sis with many septa 0.72 - 0.74 = Stage F3 - F4 >0.74 = Stage F4 - Cirrh osis Not Available [facility] ([facility]) [address] [place], [address], 07/18/2024 06:10:53 07/15/19 25 07/18/2024 CISNEROS FIBRO SURE PLUS fibrosis stage F1-F2 Not Available [facility] ([facility]) [address] [place], [address], 07/18/2024 06:10:53 07/15/19 25 07/18/2024 CISNEROS FIBRO SURE PLUS fibrosis score 0.34 0.00-0 .21 high Not Available [facility] ([facility]) [address] [place], [address], 07/18/2024 06:10:53 07/15/19 25 07/18/2024 CISNEROS FIBRO SURE PLUS steatosis score 0.48 0.00-0 .40 high Not Available [facility] ([facility]) [address] [place], [address], 07/18/2024 06:10:53 07/15/1907/18/2024 CISNEROS FIBRO SURE PLUS steatosis grade Commen t S1 - Mild Steat osis (But Clini zuleyka Signi fican t) (5- 33%) Not Available [facility] ([facility]) [address] [place], [address], 07/18/2024 06:10:53 07/15/1907/18/2024 CISNEROS FIBRO SURE PLUS steatosis scoring Commen t . <=0.4 0 = S0 - No Steat osis (<5%) 0.40 - 0.55 = S1 - Mild Steat osis (but Clini zuleyka Signi fican t) (5-33 %) >0.55 = S2S3- Moder ate to Sever e Steat osis (Clin icall y Signi fican t) (34-1 00%) Not Available [facility] ([facility]) [address] [place], [address], 07/18/2024 06:10:53 07/15/19 25 07/18/2024 CISNEROS FIBRO SURE PLUS cisneros scoring Commen t . <=0.2 5 = N0 - No CISNEROS/ MASH 0.25 - 0.50 = N1 - Mild CISNEROS/ MASH 0.50 - 0.75 = N2 - Moder ate CISNEROS/ MASH >0.75 = N3 - Sever e CISNEROS/ MASH Not Available [facility] ([facility]) [address] , [place], [address], 07/18/2024 06:10:53 07/15/19 25 07/18/2024 CISNEROS FIBRO SURE PLUS cisneros grade Commen t N3 - Sever e CISNEROS Not Available [facility] ([facility]) [address] , [place], [address], 07/18/2024 06:10:53 07/15/19 25 07/18/2024 CISNEROS FIBRO SURE PLUS cisneros score 0.79 0.00-0 .25 high Not Available [facility] ([facility]) [address] , [place], [address], 07/18/2024 06:10:53 07/15/19 25 07/18/2024 CISNEROS FIBRO SURE PLUS limitations Commen t . CISNEROS Fibro Sure( R) Plus is recom paul d for patie nts with suspe cted non-a lcoho lic fatty liver disea se, now known as Metab olic Dysfu nctio n-Ass ociat ed Steat otic Liver Disea se or MASLD . It is not recom paul d for patie nts with other liver disea ses. It is also not recom paul d in patie nts with Gilbe rt Disea se, acute hemol ysis, acute viral hepat itis, drug induc ed hepat itis, mitchell ic liver disea se, autoi mmune hepat itis and/o r extra -hepa tic vianney stasi s. Any of these clini apurva situa tions may lead to inacc urate quant itati ve predi ction s of fibro sis. Not Available [facility] ([facility]) [address], [place], [address], 07/18/2024 06:10:53 07/15/19 25 07/18/2024 CISNEROS FIBRO SURE PLUS methodology: Commen t . The sachi inessa teste d are perfo rmed by Fibro Sure- Speci fic metho ds. Not inten ded for use with other diagn ostic consi derat ions. Not Available [facility] ([facility]) [address], [place], [address], 07/18/2024 06:10:53 07/15/19 25 07/18/2024 CISNEROS FIBRO SURE PLUS interpretati on: Commen t . Quant itati ve resul ts of 10 bioch emica ls in combi natio n with age and gende r, are sachi zed using a compu tatio nal algor ithm to provi de a quant itati ve surro gate marke r (0.0- 1.0) of liver fibro sis (Harwood vir F0-F4 ), hepat ic steat osis (0.0- 1.0, S0-S3 ), and Non-A lcoho lic Steat o-Hep atiti s (CISNEROS ) (0.0- 1.0, N0-N3 ), now known as Metab olic Dysfu nctio n-Ass ociat ed Steat ohepa titis (MASH ). The absen ce of steat osis (S<0. 40) precl udes the diagn osis of CISNEROS/ MASH. Fibro sis marke r: In a study of 171 Non- Alcoh olic Fatty Liver Disea se (NAFL D), now known as Metab olic Dysfu nctio n-Ass ociat ed Steat otic Liver Disea se (MASL D), patie nts where 23% had signi fican t NAFLD /MASL D fibro sis (Harwood vir F2-F4 ) and 11% had cirrh osis by liver biops y, a fibro sis resul t of >0.3 yield ed a sensi tivit y of 83% and a speci ficit y of 78% for the detec tion of signi fican t fibro sis. 1 Steat osis marke r: In a popul ation of 2997 patie nts, where 61% had signi fican t steat osis (>=5% ) on a liver biops y, a steat osis score >0.4 had a sensi tivit y of 79% and a speci ficit y of 50% for ident ifica tion of signi fican t steat osis. 2 CISNEROS/ MASH rebecae r: In a popul ation of 1081 NAFLD /MASL D patie nts, where 51% had at least some CISNEROS/ MASH by liver biops y, a predi ction of CISNEROS/ MASH had a sensi tivit y of 72% for ident ifyin g CISNEROS/ MASH and a speci ficit y of 71%. 3 Not Available [facility] ([facility]) [address], [place], [address], 07/18/2024 06:10:53 07/15/19 25 07/18/2024 CISNEROS FIBRO SURE PLUS comment: Commen t . This test was devel oped and its perfo rmanc e ayesha cteri stics deter mined by [employer]. It has not been clear ed or appro viki by the Food and Drug Admin istra tion. . For quest berry salazar this repor t pleas e conta ct custo lester servi ce at [phone]. . Refer ences : . 1. Vito mendoza V. et al. Diagn ostic Value of Bioch emica l Marke rs (Fibr oTest ) for the predi ction of Liver Fibro sis in patie nts with Non-A lcoho lic Fatty Liver Disea se. [facility] Gastr oente rolog y 2006 ; 6:6. 2. Selwyn Luevano. et al. The Diagn ostic Perfo rmanc e of a Simpl i fied Blood Test (Stea toTes t-2) for the Predi ction of Liver Steat o sis. Eur J Gastr oente rol Hepat ol. 2019; 31:39 3-402 . 3. Selwyn Gutierrez et al. Diagn ostic perfo rmanc e of a new nonin v asive test for nonal cohol ic steat ohepa titis using a simpl ified his tolog ical refer ence. Eur J Gastr oente rol Hepat ol. 2017; 30:56 9-577 . Perfo rmed at: [facility] [place] [address] , [place] , [place] [id number] Lab Direc tor: Massiel ross MD, Phone : [phone] Not Available [facility] ([facility]) [address] [facility], [place], [address], 07/18/2024 06:10:53 01/17/20 24 01/17/2024 [place], liver [facility] [address] [place] [address] Phone: Fax: Name: WENDY GOLDMAN Exam Date: 01/17/20 : [birth year] Age 68 years Gender : F Access ion: [id number] Physic mani: [place] Facili ty: [facility] Facili ty HSV: Outpat ient Exam: LIVER ULTRAS OUND RIGHT UPPER QUADRA NT ULTRAS OUND HISTOR Y: Elevat ed LFTs. PROCED URE: Sonogr aphic images of the right upper quadra nt were perfor med. FINDIN GS: The liver parenc hyma is homoge neous. The gallbl adder is normal . The gallbl adder wall is of normal thickn ess. There are no gallst ones. The common bile duct is normal . Limite d images of the right kidney demons trate a 2.5 cm cyst. IMPRES ARLEN: Right renal cyst. Otherw ise, within normal limits . The films were review ed, interp reted, and dictat ed by Dr. Dykes Transc ribed by Jose Villanueva PA-C Dictat ed By: ANAYA DYKES Transc ribed By: Anaya Dykes ribed On: 01/17/20 3:35 PM Electr onical ly signed by: ANAYA DYKES 01/17/20 Thank you for referr ing WENDY GOLDMAN to [facility]. Legall y authen ticate d by POPE ANAYA Pham 2023-0 01-16 15:35: 49 CC'ed Logic: Orderi ng Provid er: [place] Attend ing Provid er: [place] Referr ing Provid er: [place] Admitt ing [facility] [email or web address] [facility] [address], [place], [address], 01/17/2024 16:11:34 Result Notes None recorded. Problems Name Problem SNOMED Code Status Onset Date Resolution Date Notes Provider Name and Address Organization Details Recorded Time Metabolic dysfuncti on-associ ated steatohep atitis 305156977 Active 2023 Ernesto Amezcua PA-C [address] , [place], [address] , [place] - [place] - [place] & [place] 4 13:27:17 Gastroeso phageal reflux disease without esophagit is 019798634 Active 2023 Ernesto Amezcua PA-C [address] , [place], [address] , [place] - [place] - [place] & [place] 4 13:48:57 Chronic idiopathi c constipat ion 40744349 Active 2021 Not Available [facility] 3 16:06:44 Gastroeso phageal reflux disease 930322800 Active 2021 Not Available [facility] 3 16:06:44 Diarrhea 92024713 Active 2021 Not Available [facility] 3 16:06:44 Hypokalem ia 99988097 Active 2021 Not Available [facility] 3 16:06:44 Abdominal pain 64588640 Active 2021 Not Available [facility] 3 16:06:44 Myocardia l infarctio n 69394849 Completed 202103/25/2022 Azeb Quesada [facility], [place] - [place] - [place] & [place] 2 14:37:03 Fibromyal dominique 337370019 Active 2021 Not Available [facility] 3 16:06:44 Mild dementia 54807076463 4108 Active 2021 Not Available [facility] 3 16:06:44 Chronic obstructi ve pulmonary disease 43278202 Active 2021 Not Available [facility] 3 16:06:44 Hiatal hernia 73391898 Completed 202103/25/2022 Azeb Quesada [facility], [place] - [place] - [place] & [place] 2 14:38:57 Chronic depressio n 274409304 Active 2021 Not Available [facility] 3 16:06:44 Obesity 919018761 Active 2021 Ernesto Amezcua PA-C [address], [place], [address] , [place] [facility] [facility] & [place] 2 14:51:36 Hypertens aayush disorder 62563827 Active 2022 Not Available [facility] 3 16:06:44 Dyslipide franc 549276484 Active 2022 Not Available [facility] 3 16:06:44 Morbid obesity 105979901 Active 2022 Not Available [facility] 3 16:06:44 Dizziness 958178714 Active 2022 Not Available [facility] 3 16:06:44 Intention al weight loss 797808754 Active 2022 Not Available [facility] 3 16:06:44 Constipat ion 33762199 Active 2022 Ernesto Amezcua PA-C [address], [place], [address] , [place] [facility] [facility] & [place] 3 15:41:42 Overweigh t 576915961 Active 2023 Aden Husain, DNP, REPAIR SPECIALIST, [employer]-C [address], [place], [address] , [place] - [place] & [place] 4 09:57:50 Fatigue 20108611 Active 2023 Aden Husain, CAMMIE, REPAIR SPECIALIST, [employer]-C [address], [place], [address] , [place] & [place] 4 10:00:39 Liver enzymes level above reference range 812144498 Active 2023 Aden Husain DNP, REPAIR SPECIALIST, [employer]PER[employer]-C [address], [place], [address] , [place] & [place] 4 13:32:45 Low back pain 971544750 Active 2023 Aden Husain DNP, REPAIR SPECIALIST, [employer]PER[employer]OR-C [address], [place], [address] , [place] & [place] 4 15:56:35 Irritable bowel syndrome character ized by constipat ion 455292472 Active 2023 Ernesto Amezcua PA-C [address], [place], [address] , [place] & [place] 4 09:08:46 Problem Notes None recorded. Procedures Surgical History Date Name Laterality Status Provider Name and Address Organization Details Recorded Time 07/23/[address], LD [address], [place], [address], [place] & [place] 08/14/2022 16:17:22 05/28/20 21 Date of Last Pap Smear completed RIMMA RAY RD, LD [address], [place], [address], [place] & [place] 08/14/2022 16:17:22 12/20/19 21 Date of Last Colonoscopy completed RIMMA RAY RD, LD [address], [place], [address], [place] & [place] 08/14/2022 16:17:22 11/17/19 Most Recent Bone Density completed RIMMA RAY RD, LD [address], [place], [address], [facility] & [place] 08/14/2022 16:17:22 Appendectomy completed Not Available [facility] 13:08:39 extraction of wisdom tooth completed Not Available [facility] 08/10/2022 13:08:39 lithotripsy completed Not Available [facility] 07/14 13:08:39 Colonoscopy completed Marychuy Quesada [facility] & [place] 08/13/2022 11:21:25 EGD completed Marychuy Quesada [facility] & [place] 08/13/2022 11:21:36 Gastric Bypass completed Dipesh Dow [facility] & [place] 12/29/2022 08:20:27 Imaging Results Imaging Date Name Status LastModified by Organiz ation Details LastModified Time 01/17/2024 US, liver completed [email or web address] [facility] [address], [place], [address], 01/17/2024 16:11:34 Procedure Notes None recorded. Medical Equipment None Reported. Allergies Allergen ID Allergen Name Allergen Category Reaction Reaction Severity Criticality Documentation Date Start Date Code Code System Note Provider Name and Address Organization Details Recorded Time 67405 Product containin g penicilli n (product) medicatio n Not available Not available Not available 03/25/2022 22041 8001 SNOMED Azeb Quesada [facility], [facility] & [place] 2 14:01:10 496204 indometha gen medicatio n Not available Not available Not available 06/19/2024 5781 RxNorm Other react ions and sever ities : 'Adve rse react ion to subst ance' . Kary Rust pal, [facility] & [place] 4 14:05:45 750552 penicilli n V Not available Not available Not available Not available 06/19/2024 7984 RxNorm Other react ions and sever ities : 'Anap hylax is due to subst ance' . Kary Rust null, [facility] & [place] 4 14:05:45 512063 milnacipr an medicatio n Not available Not available Not available 06/19/2024 37606 0 RxNorm Other react ions and sever ities : 'Adve rse react ion to subst ance' . Kary Rust null, [facility] & [place] 4 14:05:45 93727 Savella medicatio n Not available Not available Not available 08/13/2022 22378 6 RxNorm Marychuy Quesada null, [facility] & [place] 3 11:18:57 Medications Name Sig Start Date Stop Date Status Note LastModified by Organization Details LastModified Time losartan 50 mg tablet active Not Available Not Available Not Available celecoxib 200 mg capsule 200 mg by oral route. 2022 active Not Available Not Available Not Avai lable amoxicilli n 500 mg capsule TAKE 1 CAPSULE BY MOUTH THREE TIMES DAILY 09/21 completed Not Available Not Available Not Available atorvastat in 40 mg tablet active Not Available Not Available Not Available lamotrigin e 150 mg tablet TAKE 1 TABLET BY MOUTH TWICE DAILY active Not Available Not Available No t Available promethazi ne-DM 6.25 mg-15 mg/5 mL oral syrup TAKE 5 ML BY MOUTH EVERY 6 HOURS NEEDED 12/06 completed Not Available Not Available Not Available atorvastat in 80 mg tablet active Not Available Not Available Not Available prednisone 10 mg tablet TAKE 1 TABLET BY MOUTH TWICE DAILY 12/16 completed Not Available Not Available Not Available venlafaxin e ER 75 mg capsule,ex tended release 24 hr 225 mg by oral route. 12/22 completed Not Available Not Available Not Available doxycyclin e hyclate 100 mg capsule TAKE 1 CAPSULE BY MOUTH TWICE DAILY FOR 10 DAYS active Not Available Not Available No t Available atorvastat in 20 mg tablet 80 mg by oral route. 2022 active Not Available Not Available Not Avai lable venlafaxin e 75 mg tablet TAKE 2 TABLETS BY MOUTH IN THE MORNING AND 1 TAB IN THE AFTERNOO N 03/19 completed Not Available Not Available Not Available Neurontin 300 mg capsule Take 1 capsule 3 times a day by oral route. 03/06 completed Not Available Not Available Not Available ipratropiu m 0.5 mg-albuter ol 3 mg (2.5 mg base)/3 mL nebulizati on soln USE 1 AMPULE IN NEBULIZE R 4 TIMES DAILY NEEDED FOR SHORTNES S OF BREATH OR WHEEZING 12/16 completed Not Available Not Available Not Available clindamyci n HCl 300 mg capsule TAKE 1 CAPSULE BY MOUTH THREE TIMES DAILY 08/10 completed Not Available Not Available Not Available albuterol sulfate 2.5 mg/3 mL (0.083 %) solution for nebulizati on 2.5 mg by inhalati on route. 12/22 completed Not Available Not Available Not Available oxybutynin chloride ER 10 mg tablet,ext ended release 24 hr TAKE 1 TABLET BY MOUTH ONCE DAILY active Not Available Not Available No t Available azithromyc in 250 mg tablet TAKE 2 TABLETS BY MOUTH ON DAY 1, THEN TAKE 1 TABLET DAILY ON DAYS 2-5 03/06 completed Not Available Not Available Not Available tizanidine 4 mg tablet TAKE 1 TABLET BY MOUTH ONCE DAILY AT BEDTIME 12/16 completed Not Available Not Available Not Available fluconazol e 150 mg tablet TAKE 1 TABLET BY MOUTH EVERY 3 DAYS active Not Available Not Available No t Available benzonatat e 200 mg capsule TAKE 1 CAPSULE BY MOUTH THREE TIMES DAILY 12/06 completed Not Available Not Available Not Available donepezil 10 mg tablet Take 1 tablet every day by oral route. active Not Available Not Available No t Available Diprivan 10 mg/mL intravenou s emulsion 400 mg by intraven . route. 12/21 completed Not Available Not Available Not Available prednisone 20 mg tablet TAKE 2 TABLETS BY MOUTH ONCE DAILY FOR 5 DAYS 08/10 completed Not Available Not Available Not Available isosorbide mononitrat e ER 30 mg tablet,ext ended release 24 hr TAKE 1 TABLET BY MOUTH ONCE DAILY active Not Available Not Available No t Available betamethas one, augmented 0.05 % topical cream APPLY CREAM TOPICALL Y TWICE DAILY 06/23 completed Not Available Not Available Not Available terconazol e 0.8 % vaginal cream INSERT 1 APPLICAT ORFUL VAGINALL Y AT BEDTIME NIGHTLY FOR 3 DAYS 06/06 completed Not Available Not Available Not Available Seroquel 25 mg tablet Take 1 tablet twice a day by oral route. 03/06 completed Not Available Not Available Not Available lactated Ringers intravenou s solution 1000 mL by intraven . route. 12/22 completed Not Available Not Available Not Available venlafaxin e ER 150 mg capsule,ex tended release 24 hr 225 mg by oral route. 2022 active Not Available Not Available Not Avai lable sumatripta n 50 mg tablet TAKE 1 TABLET BY MOUTH WITH ONSET OF HEADACHE . MAY REPEAT 1 TIME AFTER 2 HOURS. MAX 2 TABLETS IN 24 HOURS. active Not Available Not Available No t Available rocuronium 10 mg/mL intravenou s solution 100 mg by intraven . route. 12/21 completed Not Available Not Available Not Available acyclovir 400 mg tablet TAKE 1 TABLET BY MOUTH TWICE DAILY 06/23 completed Not Available Not Available Not Available valacyclov ir 500 mg tablet TAKE 2 TABLETS BY MOUTH EVERY 12 HOURS active Not Available Not Available No t Available ciprofloxa gen 500 mg tablet TAKE 1 TABLET BY MOUTH EVERY 12 HOURS 03/06 completed Not Available Not Available Not Available sulfametho xazole 800 mg-trimeth oprim 160 mg tablet TAKE 1 TABLET BY MOUTH TWICE DAILY 09/06 completed Not Available Not Available Not Available aspirin 81 mg tablet,del ayed release 81 mg by oral route. 06/23 completed Not Available Not Available Not Available tramadol 50 mg tablet TAKE 1 TABLET BY MOUTH EVERY 6 HOURS NEEDED 12/06 completed Not Available Not Available Not Available quetiapine 100 mg tablet TAKE 1 TABLET BY MOUTH AT BEDTIME active Not Available Not Available No t Available acetaminop hen 500 mg tablet 500 mg by oral route. 12/21 completed Not Available Not Available Not Available hydralazin e 20 mg/mL injection solution 10 mg by injectio n route. 12/22 completed Not Available Not Available Not Available butalbital -acetamino phen-caffe ine 50 mg-325 mg-40 mg tablet TAKE 1 TABLET BY MOUTH EVERY 6 HOURS NEEDED 12/16 completed Not Available Not Available Not Available lamotrigin e 25 mg tablet 50 mg by oral route. 12/22 completed Not Available Not Available Not Available pantoprazo le 20 mg tablet,del ayed release 09/21 completed Not Available Not Available Not Available ketorolac 0.5 % eye drops INSTILL 1 DROP INTO AFFECTED EYE 4 TIMES DAILY NEEDED 12/06 completed Not Available Not Available Not Available bisoprolol fumarate 5 mg tablet active Not Available Not Available No t Available oxycodone- acetaminop hen 5 mg-325 mg tablet TAKE 1 TO 2 TABLETS BY MOUTH EVERY 4 TO 6 HOURS (MAX OF 6 TABS PER DAY) 12/16 completed Not Available Not Available Not Available diphenhydr amine 50 mg/mL injection solution 25 mg by injectio n route. 12/22 completed Not Available Not Available Not Available methocarba mol 750 mg tablet active Not Available Not Available Not Available Protonix 40 mg intravenou s solution 40 mg by intraven . route. 12/21 completed Not Available Not Available Not Available trazodone 100 mg tablet TAKE 1 & 1/2 (ONE & ONE-HALF ) TABLETS BY MOUTH AT BEDTIME active Not Available Not Available No t Available ciprofloxa gen 0.3 % eye drops INSTILL 2 DROPS 4 TIMES DAILY IN AFFECTED EYE(S) FOR 5 DAYS 12/16 completed Not Available Not Available Not Available meclizine 25 mg tablet TAKE 1 TABLET BY MOUTH THREE TIMES DAILY 06/23 completed Not Available Not Available Not Available diazepam 2 mg tablet TAKE 1 TABLET BY MOUTH THREE TIMES DAILY NEEDED 03/19 completed Not Available Not Available Not Available baclofen 10 mg tablet Take 1 tablet 3 times a day by oral route. active Not Available Not Available No t Available doxycyclin e monohydrat e 100 mg capsule TAKE 1 CAPSULE BY MOUTH TWICE DAILY FOR 10 DAYS 08/13 completed Not Available Not Available Not Available dexamethas one 2 mg tablet take 1 tablet orally every 12 hours FOR 5 DAYS 03/06 completed Not Available Not Available Not Available cephalexin 500 mg capsule TAKE 1 CAPSULE BY MOUTH THREE TIMES DAILY 08/10 completed Not Available Not Available Not Available pantoprazo le 40 mg tablet,del ayed release Take 1 tablet every day by oral route before meal(s) for 90 days. active Not Available Not Available No t Available cyanocobal maguire (vit B-12) 1,000 mcg/mL injection solution 1000 microgra ms by injectio n route. 12/22 completed Not Available Not Available Not Available promethazi ne 25 mg/mL injection solution 12.5 mg by injectio n route. 12/22 completed Not Available Not Available Not Available promethazi ne 25 mg tablet TAKE 1 TABLET BY MOUTH EVERY 12 HOURS NEEDED active Not Available Not Available No t Available losartan 25 mg tablet active Not Available Not Available Not Available hydrochlor othiazide 12.5 mg capsule 12.5 mg by oral route. 06/23 completed Not Available Not Available Not Available fentanyl (PF) 50 mcg/mL injection solution 100 microgra ms by injectio n route. 12/21 completed Not Available Not Available Not Available oxybutynin chloride ER 5 mg tablet,ext ended release 24 hr 10 mg by oral route. 12/22 completed Not Available Not Available Not Available aspirin 81 mg chewable tablet Chew 1 tablet every day by oral route. active Not Available Not Available No t Available montelukas t 10 mg tablet TAKE 1 TABLET BY MOUTH ONCE DAILY active Not Available Not Available No t Available acyclovir 200 mg capsule TAKE 1 CAPSULE BY MOUTH FIVE TIMES DAILY FOR 5 DAYS 08/10 completed Not Available Not Available Not Available phenylephr ine 10 mg/mL injection solution 20 mg by injectio n route. 12/22 completed Not Available Not Available Not Available sodium chloride 0.9 % intravenou s solution 1000 mL by intraven . route. 12/21 completed Not Available Not Available Not Available dexamethas one sodium phosphate 4 mg/mL injection solution 4 mg by injectio n route. 12/21 completed Not Available Not Available Not Available lorazepam 1 mg tablet TAKE 1 TABLET BY MOUTH AT BEDTIME 03/06 completed Not Available Not Available Not Available azelastine 137 mcg (0.1 %) nasal spray USE 1 SPRAY(S) IN EACH NOSTRIL TWICE DAILY active Not Available Not Available No t Available levofloxac in 500 mg tablet TAKE 1 TABLET BY MOUTH EVERY 24 HOURS FOR 10 DAYS 08/13 completed Not Available Not Available Not Available estradiol 0.01% (0.1 mg/gram) vaginal cream INSERT 1 GRAM VAGINALL Y THREE TIMES A WEEK active Not Available Not Available No t Available methylpred nisolone 4 mg tablets in a dose pack TAKE BY MOUTH DIRECTED ON INSIDE OF PACKAGE 03/06 completed Not Available Not Available Not Available albuterol sulfate HFA 90 mcg/actuat ion aerosol inhaler 06/05 completed Not Available Not Available Not Available celecoxib 100 mg capsule active Not Available Not Available Not Available Quelicin 20 mg/mL injection solution 200 mg by injectio n route. 12/21 completed Not Available Not Available Not Available hydroxyzin e HCl 10 mg tablet TAKE 1 TABLET BY MOUTH TWICE DAILY NEEDED FOR ANXIETY active Not Available Not Available No t Available fluticason e propionate 50 mcg/actuat ion nasal spray,susp ension USE 2 SPRAY(S) IN EACH NOSTRIL ONCE DAILY 12/06 completed Not Available Not Available Not Available lamotrigin e 100 mg tablet 100 mg by oral route. 12/22 completed Not Available Not Available Not Available IC Green 25 mg solution for injection 25 mg by injectio n route. 12/21 completed Not Available Not Available Not Available enoxaparin 40 mg/0.4 mL subcutaneo us syringe 40 mg by sub-q route. 12/21 completed Not Available Not Available Not Available hydromorph one 1 mg/mL injection syringe 1 mg by injectio n route. 12/22 completed Not Available Not Available Not Available ezetimibe 10 mg tablet Take 1 tablet every day by oral route. active Not Available Not Available No t Available aripiprazo le 10 mg tablet TAKE 1 TABLET BY MOUTH AT BEDTIME 12/16 completed Not Available Not Available Not Available moxifloxac in 0.5 % eye drops INSTILL 1 DROP INTO EACH EYE THREE TIMES DAILY FOR 7 DAYS 12/06 completed Not Available Not Available Not Available levofloxac in 500 mg/100 mL in 5 % dextrose intravenou s piggyback 500 mg by intraven . route. 12/22 completed Not Available Not Available Not Available bupivacain e (PF) 0.25 % (2.5 mg/mL) injection solution 30 mL by injectio n route. 12/21 completed Not Available Not Available Not Available topiramate 50 mg tablet TAKE 1/2 (ONE-YOLANDE F) TABLET BY MOUTH TWICE DAILY 12/16 completed Not Available Not Available Not Available pregabalin 50 mg capsule TAKE 1 CAPSULE BY MOUTH ONCE DAILY 06/23 completed Not Available Not Available Not Available pregabalin 75 mg capsule TAKE 1 CAPSULE BY MOUTH TWICE DAILY 03/06 completed Not Available Not Available Not Available pregabalin 100 mg capsule TAKE 1 CAPSULE BY MOUTH TWICE DAILY 03/06 completed Not Available Not Available Not Available pregabalin 150 mg capsule TAKE 1 CAPSULE BY MOUTH TWICE DAILY 12/06 completed Not Available Not Available Not Available pregabalin 200 mg capsule TAKE 1 CAPSULE BY MOUTH TWICE DAILY 12/06 completed Not Available Not Available Not Available pregabalin 225 mg capsule 12/20 completed Not Available Not Available Not Available sodium chloride 0.9 % intravenou s piggyback 250 mL by intraven . route. 12/22 completed Not Available Not Available Not Available aspirin 81mg 12/16 completed Not Available Not Available Not Available Dulcolax (bisacodyl ) active Not Available Not Available Not Available Singulair 03/06 completed Not Available Not Available Not Available calcium citrate active Not Available Not Available Not Available fiber active Not Available Not Availa ble Not Available Vitamin D3 active Not Available Not Av ailable Not Available Miralax twice daily active Not Available Not Available No t Available lidocaine (PF) 20 mg/mL (2 %) injection solution 10 mL by injectio n route. 12/21 completed Not Available Not Available Not Available quetiapine 50 mg tablet TAKE 1 TABLET BY MOUTH AT BEDTIME active Not Available Not Available No t Available ondansetro n HCl (PF) 4 mg/2 mL injection solution 4 mg by injectio n route. 12/22 completed Not Available Not Available Not Available hydrochlor othiazide 12.5 mg tablet 06/23 completed Not Available Not Available Not Available BD PosiFlush Normal Saline 0.9 % injection syringe 10 mL by injectio n route. 12/22 completed Not Available Not Available Not Available quetiapine ER 200 mg tablet,ext ended release 24 hr 200 mg by oral route. 06/23 completed Not Available Not Available Not Available diclofenac 1 % topical gel APPLY TOPICALL Y DIRECTED 4 TIMES A DAY NEEDED 12/16 completed Not Available Not Available Not Available Body, Hair, Skin and Nails active Not Available Not Available No t Available venlafaxin e ER 225 mg tablet,ext ended release 24 hr TAKE 1 TABLET BY MOUTH ONCE DAILY active Not Available Not Available No t Available Seroquel XR 50 mg tablet,ext ended release 200 mg by oral route. 12/22 completed Not Available Not Available Not Available Prolia 60 mg/mL subcutaneo us syringe Inject 1 mL by subcutan eous route. active every 6 months Not Available Not Available Not Available omeprazole magnesium 20 mg capsule,de layed release 20 mg by oral route. 2022 active Not Available Not Available Not Avai lable Probiotic active Not Available Not Disha ilable Not Available sodium,pot assium,mag sulfates 17.5 gram-3.13 gram-1.6 gram oral soln active Not Available Not Available Not Available white petrolatum topical ointment in packet 5 g by topical route. 12/21 completed Not Available Not Available Not Available Linzess 290 mcg capsule TAKE 1 CAPSULE BY MOUTH EVERY DAY active Not Available Not Available No t Available Bridion 100 mg/mL intravenou s solution 500 mg by intraven . route. 12/21 completed Not Available Not Available Not Available melatonin 10 mg disintegra ting tablet Take by oral route. active Not Available Not Available No t Available ephedrine sulfate 50 mg/mL intravenou s solution 50 mg by intraven . route. 12/21 completed Not Available Not Available Not Available Trelegy Ellipta 100 mcg-62.5 mcg-25 mcg powder for inhalation USE 1 INHALATI ON BY MOUTH ONCE DAILY 06/06 completed Not Available Not Available Not Available baclofen 5 mg tablet 03/06 completed Not Available Not Available Not Available Womens Multivitam in High Potency 13.5 mg-200 mcg-250 mcg tablet Take by oral route. active Not Available Not Available No t Available Motegrity 2 mg tablet Take 1 tablet every day by oral route for 90 days. active Not Available Not Available No t Available Paxlovid 300 mg (150 mg x 2)-100 mg tablets in a dose pack TAKE 3 TABLETS BY MOUTH TWICE A DAY IN THE MORNING AND EVENING FOR 5 DAYS PER PACKAGE INSTRUCT IONS active Not Available Not Available No t Available cefazolin 2 gram solution for injection 2 g by injectio n route. 12/21 completed Not Available Not Available Not Available Vitals Date Recorded Body height Body mass index (BMI) Body weight Oxygen saturation Oxygen saturation in Arterial blood by Pulse oximetry Heart rate Heart rate Systolic blood pressure Diastolic blood pressure Provider Name and Address Organization Details Last Updated DateTime 4 162.56 cm 25.7 kg/m2 51975.4 2 g 97 % 97 % 87 /min 87 /min 105 mm[Hg] 62 mm[Hg] Francisca Bautista [place] - LPNT [facility] & [place] 4 15:29:23 Date Recorded Body height Body mass index (BMI) Body weight Oxygen saturation Oxygen saturation in Arterial blood by Pulse oximetry Body temperature Heart rate Heart rate Systolic blood pressure Diastolic blood pressure Provider Name and Address Organization Details Last Updated DateTime 4 162.56 cm 26.7 kg/m2 18054.9 g 97 % 97 % 98 [degF] 76 /min 78 /min 127 mm[Hg] 81 mm[Hg] Ramírez Painter [place] - LPNT [facility] & [place] 4 08:44:06 Date Recorded Body height Body temperature Heart rate Body mass index (BMI) Body weight Systolic blood pressure Diastolic blood pressure Provider Name and Address Organization Details Last Updated DateTime 4 162.56 cm 97.8 [degF] 76 /min 26.2 kg/m2 38839.8 4 g 109 mm[Hg] 73 mm[Hg] Araceli SNOW [facility] & [place] 4 09:28:16 Date Recorded Body height Body temperature Heart rate Body mass index (BMI) Body weight Systolic blood pressure Diastolic blood pressure Provider Name and Address Organization Details Last Updated DateTime 4 162.56 cm 98.7 [degF] 89 /min 25 kg/m2 58093.4 1 g 113 mm[Hg] 81 mm[Hg] Araceli SNOW [facility] & [place] 4 09:17:32 Date Recorded Body height Body mass index (BMI) Body weight Body temperature Heart rate Heart rate Oxygen saturation Oxygen saturation in Arterial blood by Pulse oximetry Systolic blood pressure Diastolic blood pressure Provider Name and Address Organization Details Last Updated DateTime 4 162.56 cm 24.8 kg/m2 15659.0 2 g 97.4 [degF] 99 /min 98 /min 97 % 97 % 107 mm[Hg] 73 mm[Hg] Francisca Bautista [facility] & [place] 4 13:05:54 Social History Question Answer Notes LastModified by Access[employer] Details LastModified Time Tobacco Smoking Status Former Smoker quit 3 years ago Araceli Velasquez [facility] & [place] 09/06/2023 09:49:34 Do You Have An Advance Directive? No [email or web address] Information not available 08/14/2022 Are You Blind Or Do You Have Difficulty Seeing? No Information not available 08/14/2022 What Was The Date Of Your Most Recent Tobacco Screening? 08/10/2022 [email or web address] Information not available 08/14/2022 Are You Passively Exposed To Smoke? No [email or web address] Information not available 08/14/2022 How Much Tobacco Do You Smoke? No [email or web address] Information not available 08/14/2022 Sex: Male Functional Status Question Answer Note LastModified by [employer] Details LastModified Time Do you use any illicit or recreational drugs? No [email or web address] Information not available 08/10/2022 What is your level of alcohol consumption? None Information not available 08/10/2022 Do you or have you ever used smokeless tobacco? Never used smokeless tobacco [email or web address] Information not available 08/14/2022 What is your exercise level? None [email or web address] Information not available 08/14/2022 Mental Status Question Answer Note LastModified by Organization D etails LastModified Time Do you feel stressed (tense, restless, nervous, or anxious, or unable to sleep at night)? [id number] [email or web address] Information not available 08/14/2022 Family History Relationship Description Onset Age of this Age Resolved Age Notes LastModified by Organization Details LastModified Time Father Obesity Not availa ble 08/10/2022 08:30:50 Father Diabetes mellitus [email or web address] Not available 06/26/2024 12:49:03 Father Hypertensive disorder [email or web address] Not available 08:31:23 Father Heart disease [email or web address] Not available 08:31:48 Father Cerebrovascu lar accident [email or web address] Not available 08/10/2022 08:32:04 Father Hypercholest erolemia Not available 08:32:27 Father Asthma [email or web address] bel Not available 06/26/2024 12:49:03 Father Allergy pt. added direct ly (08/10) [email or web address] Not available 08/10/2022 13:04:20 Father Disorder of endocrine system pt. added direct ly (08/10) [email or web address] Not available 08/10/2022 13:07:54 Maternal Grandmother Obesity [email or web address] Not available 0 08/10/2022 08:30:50 Maternal Grandmother Hypertensive disorder [email or web address] Not available 08:31:23 Maternal Grandmother Heart disease [email or web address] Not available 08:31:49 Mother Hypertensive disorder [email or web address] Not available 08:31:23 Mother Heart disease [email or web address] Not available 08:31:48 Mother Cerebrovascu lar accident [email or web address] Not available 08/10/2022 08:32:04 Mother Hypercholest erolemia [email or web address] Not available 08:32:27 Mother Allergy pt. added direct ly (08/10) [email or web address] Not available 08/10/2022 13:04:20 Brother Hypertensive disorder [email or web address] Not available 08:31:23 Brother Heart disease [email or web address] Not available 08:31:49 Brother Hypercholest erolemia [email or web address] Not available 08:32:27 Brother Cerebrovascu lar accident pt. added direct ly (09/03) [email or web address] Not available 09/03/2023 11:07:40 Sister Hypertensive disorder [email or web address] Not available 08:31:23 Sister Hypercholest erolemia Not available 08:32:27 Maternal Grandfather Heart disease [email or web address] Not available 08:31:49 Maternal Uncle Allergy pt. added direct ly (08/10) [email or web address] Not available 08/10/2022 13:04:20 Paternal Grandmother Obesity pt. added direct ly (08/10) [email or web address] Not available 08/10/2022 13:08:19 Medical History Condition Response Other Y Gout N Kidney Stones Y COPD Y Depression Y Osteoporosis/Osteopenia Y Constipation Y Heart Attack (RI) Y Spine Problems Y Obstructive Sleep Apnea Y Anxiety Disorder Y Obesity Y Arthritis Y Back Problems Y Asthma Y Reflux/GERD N High Cholesterol Y Liver Disease Y Heart Disease Y Psychiatric/Mental Health Condition Y Headaches Y Hypertension Y Gynecological History Statement/Question Response Abnormal Pap N 07/23/2022 Date of Last Colonoscopy 12/19/2020 Most Recent Bone Density 11/17/2019 Date of LMP 08/12/2004 Sexually Active? Y Menses Monthly N Date of Last Pap Smear 05/28/2021 Current Control Method Tubal Ligat ion Age at Menarche 57 Obstetrics History GPAL:G 0 P 0 0 0 0 Immunizations Vaccine Type Date Status Note Provider Nam e and Address Organization Details Recorded Time Influenza, split virus, quadrivalent, preservative 7 completed Not Available [facility] 01/01/2023 16:06:44 Influenza, recombinant, quadrivalent, PF 1 completed Not Available [facility] 01/01/2023 16:06:44 Influenza, recombinant, quadrivalent, PF 0 completed Not Available [facility] 01/01/2023 16:06:44 zoster recombinant 1 completed Not Available [facility] 01/01/2023 16:06:44 zoster recombinant 1 completed Not Available [facility] 01/01/2023 16:06:44 MMR 6 completed Not Available [facility] 01/01/2023 16:06:44 COVID-19, mRNA, LNP-S, PF, 100 mcg/0.5mL dose or 50 mcg/0.25mL dose 1 completed Not Available [facility] 01/01/2023 16:06:44 COVID-19, mRNA, LNP-S, PF, 100 mcg/0.5mL dose or 50 mcg/0.25mL dose 1 completed Not Available [facility] 01/01/2023 16:06:44 COVID-19, mRNA, LNP-S, PF, 100 mcg/0.5mL dose or 50 mcg/0.25mL dose 1 completed Not Available [facility] 01/01/2023 16:06:44 Pneumococcal conjugate PCV20, polysaccharide [id number] conjugate, adjuvant, PF 2 completed Not Available [facility] 01/01/2023 16:06:44 pneumococcal polysaccharide PPV23 1 completed Not Available [facility] 01/01/2023 16:06:44 pneumococcal polysaccharide PPV23 7 completed Not Available [facility] 01/01/2023 16:06:44 Influenza, split virus, quadrivalent, PF 9 completed Not Available [facility] 01/01/2023 16:06:44 Influenza, split virus, quadrivalent, PF 2 completed Not Available [facility] 01/01/2023 16:06:44 Influenza, split virus, quadrivalent, PF 8 completed Not Available [facility] 01/01/2023 16:06:44 influenza, unspecified formulation 4 completed Kary Rust null, [facility] & [place] 08/08/2024 13:51:39 Respiratory syncytial virus (RSV) MAB, unspecified 4 completed [facility] [place] 06/06/2024 09:21:15 Influenza, high-dose, quadrivalent, PF 3 completed Kary Rust null, [facility] & [place] 08/08/2024 13:51:39 RSV, recombinant, protein subunit RSVpreF, adjuvant reconstituted, 0.5 mL, PF 4 completed Kary Rust null, [facility] & [place] 08/08/2024 13:51:39 Influenza, high-dose, trivalent, PF 4 completed Kary Rust null, [facility] & [place] 08/08/2024 13:51:39 Past Encounters Encounter ID Performer Location Encounter Start Date Encounter Closed Date Diagnosis/Indication Diagnosis SNOMED-CT Code Diagnosis ICD10 Code Diagnosis Note [id number] Ernesto Amezcua PA-C [facility] [address] [facility] [address] [place] [address] 03/25/2022 13:56:07 03/25/2022 14:27:57 Chronic idiopathic constipation 22809664 K59.04 Continue current bowel regimen with stool softners, fiber supplement , and Miralax as needed Gastroesop hageal reflux disease 681257891 K21.9 Increase PPI to twice daily due to refractory symptoms Obesity 383453291 E66.9 Referral to Bariatrics to discuss weight loss options. [id number] RANI Rosario [facility] [address] [facility] [address] [place] [address] 08/13/2022 07:57:41 08/13/2022 11:52:06 Obesity 377213589 E66.9 The patient will be scheduled for the following. Initial intake lab work, cardiac clearance, and EGD. All risks complicati ons and alternativ es of the upper endoscopy were discussed with the patient and agreed upon. These include but are not limited to, over sedation, bleeding, perforatio n. Patient will be educated by the surgical weight loss team regarding if any medical managed weight loss will be required and they will follow this according to their recommenda tions. patient will follow-up in office after all testing has been completed Chronic ob structive pulmonary disease 23330875 J44.9 Hypertensive disorder 38 652972 I10 Dyslipidemia 724004595 E 78.5 Hx CAD s/p RI 2014 Gastroesop hageal reflux disease 626196296 K21.9 We discussed concerns of worsening gastroesop hageal reflux status post sleeve gastrectom y or RANDA-s. Discussed Priscila-en-Y gastric bypass may be advised. Further advisement pending EGD results. Discussed Priscila-en-Y gastric bypass in depth including postoperat aayush vitamin concerns. The importance of daily vitamin supplement ation was discussed specifical ly common deficienci es with Priscila-en-Y of iron B12 and B1/thiamin . We discussed lifelong contraindi cated medication including NSAIDs and steroids and specifical ly the risk for poor healing/le ak/anastom otic ulcer. Also discussed lifelong contraindi cation to tobacco/ni cotine use [id number] Ernesto Amezcua PA-C [facility] [address] [facility] [address] [place] [address] 09/21/2022 13:44:59 09/21/2022 14:12:51 Chronic idiopathic constipation 09475983 K59.04 Gastroesop hageal reflux disease 030676620 K21.9 Obesity 914102186 E66.9 [id number] Gabo Sahu DO [facility] [address] [facility] [address] [place] [address] 12/16/2022 08:52:42 12/16/2022 13:36:20 Morbid obesity 946781121 E66.01 Pre-surger y evaluation 336137425 Z01.818 Postoperative pain 20388 9007 G89.18 Hypertensive disorder 38 176495 I10 Gastroesop hageal reflux disease 217671924 K21.9 [id number] Aden Husain, DNP, REPAIR SPECIALIST, [employer] SUPERVISOR-C [facility] [address] [facility] [address] [place] [address] 12/29/2022 07:58:00 12/29/2022 10:15:25 History of bariatric surgical procedure 998145987 Z98.84 Chronic depression 49911 0009 F32.A Chronic ob structive pulmonary disease 92549709 J44.9 Dyslipidemia 596618238 E 78.5 Fibromyalgia 899657639 M 79.7 Hypertensive disorder 38 458944 I10 advised to follow back up with pcp regarding elevated blood pressure and dizziness. Morbid obesity 633787434 E66.01 Dizziness 108260746 R42 Intentiona l weight loss 259685541 R63.8 [id number] Aden Husain DNP, APRN, [employer] SUPERVISORYony [facility] [address] [facility] [address] [place] [address] 01/19/2023 09:44:10 01/19/2023 11:03:53 History of bariatric surgical procedure 599578591 Z98.84 Intentiona l weight loss 924721420 R63.8 History of gastrectomy 353057279 Z90.3 Advised qid intake 50% protein 0575-9987 calories/d y less than 100 carbs/dyPa tient was see dietitian today. Patient is status post bariatric surgery and at increased risk for vitamin deficienci es and malnutriti on. Bariatric vitamin panel ordered today. Patient will be contacted to correct any vitamin deficienci es. Chronic ob structive pulmonary disease 96990911 J44.9 Dyslipidemia 821820345 E 78.5 Fibromyalgia 363921591 M 79.7 Hypertensive disorder 38 570225 I10 advised to follow back up with pcp regarding elevated blood pressure and dizziness. Morbid obesity 128288161 E66.01 Dizziness 002682232 R42 [id number] Aden Husain DNP, APRN, [employer] SUPER[employer]OR-C [facility] [address] [facility] [address] [place] [address] 03/19/2023 10:10:54 03/19/2023 11:00:26 History of bariatric surgical procedure 381881009 Z98.84 Intentiona l weight loss 102803702 R63.8 History of gastrectomy 356815102 Z90.3 Advised qid intake 50% protein 7017-8292 calories/d y less than 100 carbs/dyLo ng discussion today of InBody results including PBF(percen t body fat) SMM (skeletal muscle mass) Visceral fat level level BMR Segmental Fat Analysis and Segmental Lean Analysis.E ncouraged pt to take minimal calories as per BMR and to anticipate changes in SMM and PBF values not just total weight.Fol low-up with Repeat KEENAN in 3mth suggested Patient is status post bariatric surgery and at increased risk for vitamin deficienci es and malnutriti on. Bariatric vitamin panel ordered today. Patient will be contacted to correct any vitamin deficienci es. Dyslipidemia 024917236 E 78.5 Fibromyalgia 733193534 M 79.7 Obesity 332350819 E66.9 [id number] Ernesto Amezcua PA-C [facility] [address] [facility] [address] [place] [address] 05/20/2023 14:50:51 05/20/2023 15:32:08 Obesity 136592360 E66.9 History of bypass of stomach 947361388 Z98.84 History of gastroesophageal reflux disease 6031136964 9106 Z87.19 Constipation 19221344 K5 9.00 [id number] Aden Husain, DNP, REPAIR SPECIALIST, [employer] SUPERVISOR-C [facility] [address] [facility] [address] [place] [address] 05/28/2023 09:12:11 05/28/2023 09:46:17 History of bariatric surgical procedure 992637795 Z98.84 Intentiona l weight loss 723198386 R63.8 History of gastrectomy 058369575 Z90.3 Advised qid intake 50% protein 8825-3898 calories/d y less than 100 carbs/dy Long discussion today of InBody results including PBF(percen t body fat) SMM (skeletal muscle mass) Visceral fat level level BMR Segmental Fat Analysis and Segmental Lean Analysis. Encouraged pt to take minimal calories as per BMR and to anticipate changes in SMM and PBF values not just total weight. Follow-up with Repeat KEENAN in 3mth suggested Patient is status post bariatric surgery and at increased risk for vitamin deficienci es and malnutriti on. Bariatric vitamin panel ordered today. Patient will be contacted to correct any vitamin deficienci es. Chronic depression 96540 0009 F32.A Chronic id iopathic constipation 28000123 K59.04 Dyslipidemia 248832251 E 78.5 Fibromyalgia 373446982 M 79.7 Hypertensive disorder 38 690472 I10 Obesity 504427956 E66.9 [id number] MALINAEMILYGERARDO THOMAS RDN, LD [facility] [address] [facility] [address] [place] [address] 05/28/2023 09:47:21 05/28/2023 10:33:33 Obesity 720270015 E66.9 Discussed lifestyle modificati ons for continued weight loss and optimal nutrition Deficient knowledge of food and/or nutrition 3183224986 Z76.89 RDN advised pt on ways she can increase her protein and calorie intake, including adding peanut butter with fruits and making mixed dishes such as reduced fat casseroles . Advised pt to try baked apples with a small amount of canola oil, cinnamon and Splenda or similar alternativ e as needed. [id number] Aden Husain, DNP, REPAIR SPECIALIST, [employer] SUPERVISOR-C [facility] [address] [facility] [address] [place] [address] 09/06/2023 09:37:05 09/06/2023 10:21:52 Dyslipidemia 104313641 E78.5 Fibromyalgia 670148742 M 79.7 Hypertensive disorder 38 673053 I10 Overweight 163624472 E66 .3 Intentiona l weight loss 758657898 R63.8 History of gastrectomy 714362844 Z90.3 Advised qid intake 50% protein 9979-1307 calories/d y less than 100 carbs/dy Long discussion today of InBody results including PBF(percen t body fat) SMM (skeletal muscle mass) Visceral fat level level BMR Segmental Fat Analysis and Segmental Lean Analysis. Encouraged pt to take minimal calories as per BMR and to anticipate changes in SMM and PBF values not just total weight. Follow-up with Repeat KEENAN in 3mth suggested Patient is status post bariatric surgery and at increased risk for vitamin deficienci es and malnutriti on. Bariatric vitamin panel ordered today. Patient will be contacted to correct any vitamin deficienci es. Fatigue 29763954 R53.83 [id number] Aden Husain, DNP, REPAIR SPECIALIST, [employer] SUPERVISOR-C [facility] [address] [facility] [address] [place] [address] 12/07/2023 13:03:52 12/07/2023 14:39:49 History of bariatric surgical procedure 972284090 Z98.84 Intentiona l weight loss 627655161 R63.8 History of gastrectomy 830808156 Z90.3 Advised qid intake 50% protein 2814-4342 calories/d y less than 100 carbs/dy Long discussion today of InBody results including PBF(percen t body fat) SMM (skeletal muscle mass) Visceral fat level level BMR Segmental Fat Analysis and Segmental Lean Analysis. Encouraged pt to take minimal calories as per BMR and to anticipate changes in SMM and PBF values not just total weight. Follow-up with Repeat KEENAN in 3mth suggested Patient is status post bariatric surgery and at increased risk for vitamin deficienci es and malnutriti on. Bariatric vitamin panel ordered today. Patient will be contacted to correct any vitamin deficienci es. Dyslipidemia 333400689 E 78.5 Hypertensive disorder 38 830010 I10 Overweight 566925296 E66 .3 Chronic ob structive pulmonary disease 42592294 J44.9 Liver enzy mes level above reference range 988507512 R74.01 [id number] Jonas Ball MD [facility] [address] [address] 12/21/2023 14:58:32 12/21/2023 16:40:24 Obesity 842484364 E66.9 History of bypass of stomach 722440820 Z98.84 History of gastroesophageal reflux disease 8318599103 9106 Z87.19 Constipation 23791260 K5 9.00 Liver enzy mes level above reference range 308709433 R74.01 [id number] Ernesto Amezcua PA-C [facility] [address] [place] [address] 03/02/2024 08:10:22 03/02/2024 09:21:52 Obesity 518229267 E66.9 History of bypass of stomach 378632473 Z98.84 History of gastroesophageal reflux disease 6452333832 9106 Z87.19 Liver enzy mes level above reference range 972296949 R74.01 Irritable bowel syndrome characterized by constipation 315541030 K58.1 [id number] Aden Husain DNP, ARSENIO, [employer] SUPERVISOR-C [facility] [address] [place] [address] [address] [place] [address] 03/06/2024 09:07:07 03/06/2024 10:03:41 History of bariatric surgical procedure 427067516 Z98.84 Intentiona l weight loss 443486625 R63.8 History of gastrectomy 881715598 Z90.3 Advised qid intake 50% protein 0694-1442 calories/d y less than 100 carbs/dyLo ng discussion today of InBody results including PBF(percen t body fat) SMM (skeletal muscle mass) Visceral fat level level BMR Segmental Fat Analysis and Segmental Lean Analysis.E ncouraged pt to take minimal calories as per BMR and to anticipate changes in SMM and PBF values not just total weight.Fol low-up with Repeat KEENAN in 3mth suggested. i did offer dietitian, pt declines at this time. Patient is status post bariatric surgery and at increased risk for vitamin deficienci es and malnutriti on. Bariatric vitamin panel ordered today. Patient will be contacted to correct any vitamin deficienci es. Dyslipidemia 603169383 E 78.5 Hypertensive disorder 38 676396 I10 Overweight 507569245 E66 .3 Chronic id iopathic constipation 17256057 K59.04 [id number] Aden Huasin DNP, ARSENIO, [employer] SUPERVISOR-C [facility] [address] [place] [address] [address] [place] [address] 06/06/2024 09:07:53 06/06/2024 09:44:14 Intentional weight loss 348860921 R63.8 History of gastrectomy 118954120 Z90.3 Advised qid intake 50% protein 3305-7575 calories/d y less than 100 carbs/dyLo ng discussion today of InBody results including PBF(percen t body fat) SMM (skeletal muscle mass) Visceral fat level level BMR Segmental Fat Analysis and Segmental Lean Analysis.E ncouraged pt to take minimal calories as per BMR and to anticipate changes in SMM and PBF values not just total weight.Fol low-up with Repeat KEENAN in 3mth suggested Patient is status post bariatric surgery and at increased risk for vitamin deficienci es and malnutriti on. Bariatric vitamin panel ordered today. Patient will be contacted to correct any vitamin deficienci es. At [facility] ed risk of nutritional deficit 965731887 Z91.89 Chronic ob structive pulmonary disease 11040814 J44.9 Dyslipidemia 618435277 E 78.5 Hypertensive disorder 38 161957 I10 Liver enzy mes level above reference range 455275077 R74.01 Overweight 169887541 E66 .3 [id number] Ernesto Amezcua PA-C [facility] [address] [facility] [address] [place] [address] 06/26/2024 12:47:56 06/26/2024 13:41:37 Chronic idiopathic constipation 37818796 K59.04 Metabolic dysfunction-associate d steatohepatitis 840394820 K75.81 Liver enzy mes level above reference range 276822133 R74.01 Gastroesop hageal reflux disease without esophagitis 220604311 K21.9 History of colonoscopy 9177994101 09 Z98.890 Health Concerns Section Related Observation LastModified by Organization Detai ls LastModified Time None Recorded Concern Status LastModified by Organization Details LastModified Time None Recorded Advance Directives Directive N: Payers Insurance Date Sequence Insurance Name Policy Number Policy Acosta Covered Member ID Acosta Member ID Guarantor Name 05/20/2023 1 MEDICARE [place]: [place] Wendydesiree Doran [id number] Wendydesiree Doran 06/23/2024 2 [employer] HE[employer] OPTIONS (MEDICARE SUPPLEMENT) Wendydesiree Doran [id number] Wendydesiree Doran 05/20/2023 [place] Wendydesiree Doran [id number] Wendydesiree Doran 06/23/2024 1 [place] Wendydesiree Doran [id number] Wendydesiree Doran 12/04/2020 3 [place] [id number] R Stanislav Doran [id number] Wendydesiree Doran 03/25/2022 2 [place] Wendydesiree [place] [id number] Wendy Doran 03/25/2022 4 [employer] (MEDICARE REPLACEMENT/A DVANTAGE - HMO) Wendy Doran [id number] Wendy Doran 12/15/2022 1 [employer] (MEDICARE REPLACEMENT/A DVANTAGE - PPO) Wendy Doran [id number] Wendy Doran Notes Date Note Type Note Provider Name and Address Organization Details Recorded Time 12/21/2023 text/html PREVIOUS ( 2): Very pleasant 66-year-old female with history of chronic constipation, fecal incontinence, acid reflux, obesity, and oxygen dependent COPD who presents to the office today for six-month follow-up. She is doing okay overall. Her current bowel regimen consists of daily stool softeners, Metamucil once daily, and 2 tbsp of MiraLax every 3-4 days. She has a history of intolerance to many laxatives due to diarrhea.She is taking pantoprazole 40 mg p.o. once daily but is having frequent breakthrough symptoms that are not controlled with OTC antacids. Twice daily PPI previously worked better for her.She reports many daily obstacles are difficult for her due to obesity. She feels her lung function is stable and her oxygen requirements are improving, but thinks that if she could lose more weight, she would be better able to address her ADLs. She would like a referral to discuss possible lap band placement. PREVIOUS (09/21/22 Loretta Amezcua): Ms. Doran returns to the clinic today for follow-up regarding GERD. She has continued Pantoprazole 40 mg twice daily with good control of her reflux symptoms. Once daily PPI did not provide adequate control. She is pursuing weight loss surgery currently and is scheduled for pre-operative EGD next week. PREVIOUS (05/20/23 Loretta Amezcua): Ms. Doran returns to the office today for 6 month follow-up. She is now 5 months post-op Priscila-en-Y gastric bypass. She has lost 57 lbs to date. She has continued Pantoprazole 40 mg p.o. BID. She denies any issues with acid reflux since her surgery. Her bowel habits are currently regular with use of stool softeners every other day. CURRENT (12/21/23 Saeed Villarreal): Ms. Doran presents to the clinic today for follow up. She reports recent liver enzyme elevation since 05/2023. She reports dose reduction of medications that are processed through her liver via her doctors. She reports her Lipitor was recently decreased from 80mg to 40mg. he also reports taking 6-8 extra-strength Tylenol daily since her bariatric surgery for degenerative disc disease in her back. She has now decreased the amount of Tylenol she is taking. She denies any history of fatty liver, daily alcohol use, any new medications/supplem ents, hepatitis, cirrhosis, ascites, lower extremity edema, memory/confusion issues, hematemesis, hematochezia or melena. VICENTA VILLARREAL MSN, REPAIR SPECIALIST, DISABILITY RATER-C [address] [facility], [place], [address], [facility] - [place] & [place] 12/21/2023 17:17:18 03/02/2024 text/html PREVIOUS ( 2): Very pleasant 66-year-old female with history of chronic constipation, fecal incontinence, acid reflux, obesity, and oxygen dependent COPD who presents to the office today for six-month follow-up. She is doing okay overall. Her current bowel regimen consists of daily stool softeners, Metamucil once daily, and 2 tbsp of MiraLax every 3-4 days. She has a history of intolerance to many laxatives due to diarrhea.She is taking pantoprazole 40 mg p.o. once daily but is having frequent breakthrough symptoms that are not controlled with OTC antacids. Twice daily PPI previously worked better for her.She reports many daily obstacles are difficult for her due to obesity. She feels her lung function is stable and her oxygen requirements are improving, but thinks that if she could lose more weight, she would be better able to address her ADLs. She would like a referral to discuss possible lap band placement. PREVIOUS (09/21/22 Loretta Amezcua): Ms. Doran returns to the clinic today for follow-up regarding GERD. She has continued Pantoprazole 40 mg twice daily with good control of her reflux symptoms. Once daily PPI did not provide adequate control. She is pursuing weight loss surgery currently and is scheduled for pre-operative EGD next week. PREVIOUS (05/20/23 Loretta Amezcua): Ms. Doran returns to the office today for 6 month follow-up. She is now 5 months post-op Priscila-en-Y gastric bypass. She has lost 57 lbs to date. She has continued Pantoprazole 40 mg p.o. BID. She denies any issues with acid reflux since her surgery. Her bowel habits are currently regular with use of stool softeners every other day. PREVIOUS (12/21/23 Saeed Villarreal): Ms. Doran presents to the clinic today for follow up. She reports recent liver enzyme elevation since 05/2023. She reports dose reduction of medications that are processed through her liver via her doctors. She reports her Lipitor was recently decreased from 80mg to 40mg. he also reports taking 6-8 extra-strength Tylenol daily since her bariatric surgery for degenerative disc disease in her back. She has now decreased the amount of Tylenol she is taking. She denies any history of fatty liver, daily alcohol use, any new medications/supplem ents, hepatitis, cirrhosis, ascites, lower extremity edema, memory/confusion issues, hematemesis, hematochezia or melena. CURRENT (03/02/24): Ms. Doran returns to the office today for follow-up regarding elevated liver enzymes. Her transaminitis occurred following gastric bypass and has persisted. She has lost over 80 lbs since her surgery. 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 US liver recently appeared unremarkable. Today, she complains of persistent constipation, worse since bariatric surgery. She is taking miralax twice daily, psyllium once daily, and 3 dulcolax tabs at bedtime, but only producing small bowel movements. Repeat screening colonoscopy was due in November, but has not yet been completed. Ernesto Amezcua PA-C [address], [place], [address], [facility] - [place] & [place] 03/02/2024 09:09:23 03/06/2024 text/html Patient presents the office today for routine follow-up status post bariatric gastric RNY gastric bypass surgery performed on 2022. Patient doing well. Reports q.i.d. small meal intake. Reports 90g/dy protein intake and good hydration.Patient is drinking 64 ounces of water a day.Daily Calories 1100Taking routine vitamins as advised.Heartburn/g astroesophageal reflux: deniesPt Denies : abdominal pain, prandial issues Nausea, Vomiting, bowel or bladder issuesTotal Weight loss Since last office visit has been 1.4 lbsPt is happy with their quality of life after Weight loss Surgery. Today's InBody reveals a skeletal muscle mass = 48.9 lb,body fat mass = 60.8 lb,BMI = 26.2Percent body fat = 39.8Basal Metabolic Rate = 1269 kilo calories Aden Husain, CAMMIE, REPAIR SPECIALIST, [employer] INSULATION SUPERVISOR-C [address], [place], [address], [facility] & [place] 03/06/2024 10:54:05 06/06/2024 text/html Patient presents the office today for routine follow-up status post bariatric gastric RNY gastric bypass surgery performed on 2022. Patient doing well. Reports q.i.d. small meal intake. Reports 85-90g/dy protein intake and good hydration.Patient is drinking 64 ounces of water a day.Daily Calories 1200Taking routine vitamins as advised.Heartburn/g astroesophageal reflux: deniesPt Denies : abdominal pain, prandial issues Nausea, Vomiting, or bladder issues. she has been taking Miralax and Linzess.Total Weight loss Since last office visit has been 6.8 lbsPt is happy with their quality of life after Weight loss Surgery. Today's InBody reveals a skeletal muscle mass = 51.6 lb,body fat mass = 49.8 lb,BMI = 25Percent body fat = 34.2Basal Metabolic Rate = 1309 kilo calories Aden Husain, CAMMIE, REPAIR SPECIALIST, [employer] INSULATION SUPERVISOR-C [address] [facility], [place], [address], [facility] & [place] 06/06/2024 11:11:04 06/26/2024 text/html CURRENT ( 4): Ms. Doran is a very pleasant 68-year-old female who returns to the office today for follow-up regarding CISNEROS and chronic constipation. She underwent screening colonoscopy in April with no polyps identified. Currently, she complains of ongoing issues with constipation despite use of Linzess 290 mcg p.o. daily. She is having to take Dulcolax 1-2 tabs daily in addition to the Linzess.She has continued psyllium as well. She has comorbid chronic back pain. She has lost nearly 90 lbs since undergoing gastric bypass 1.5 years ago. Ernesto Amezcua PA-C [address], [place], [address], [facility] - [place] & [place] 06/26/2024 13:49:44 OBGyn Episode No OBEpisode recorded.
[2024-11-24 13:00] VITALS: BP 114/69; PULSE 79; RESP 20; TEMP 36.9; O2SAT 97
[2024-11-24] MEDS: DENOSUMAB 60 MG/ML SYRINGE SUBCUT (13:00)
== END 2024-11-24 13:15 | disposition home or self-care (01) ==
LOC: INF 12:49
PROVIDERS: PCP Family Medicine; Visit Provider Nurse Practitioner Obstetrics & Gynecology
DX: M81.0 Age-related osteoporosis without current pathological fracture (principal)
CPT/HCPCS: 96372; J0897

== ENCOUNTER 2024-12-30 09:28 | Outpatient (CLI) | payer MEDICARE, SELFPAY ==
--- OUTSIDE RECORDS SUMMARY | 2024-10-19 10:45 | XMS_ITS ---
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 Name Role Phone Jeyson Benitez Primary Care Provider Allergies Allergen (clinical drug ingredient) Drug/Non Drug Allergy documented on EMR Reaction Allergy Type Onset Date Status indomethacin Indomethacin disoriented Drug Allergy Active milnacipran Savella memory loss and excessive drowsiness Drug Allergy Active Penicillin anaphylaxis Drug Allergy Acti ve Results Component Value Reference Range Notes CBC Fingerstick (in house) Reviewed date:10/19/2024 08:08:25 PM Interpretation: Performing Lab: Notes/Report: wbc 8.1 3.5 - 10 lym 24.3 15 - 50 mid 6.1 2 - 15 gran 69.6 35 - 80 rbc 4.68 3.5 - 5.5 hgb 14.3 11.5 - 16.5 hct 43.1 35 - 55 mcv 92.1 75 - 100 mch 30.6 25 - 35 mchc 33.2 31 - 38 plat 215 100 - 400 REASON FOR VISIT sore throat, loss of voice Medications Medication SIG (Take, Route, Frequency, Duration) Notes Start Date End Date Status hydrOXYzine HCl 10 MG as directed Orally Two times a day for 90 days Active Venlafaxine HCl ER 225 MG TAKE 1 TABLET BY MOUTH ONCE DAILY WITH FOOD for 90 Active traZODone HCl 100 MG TAKE 1 TABLET BY [facility] ONCE DAILY AT BEDTIME for 90 Active Calcium Citrate 150 MG 2 capsules Orally Once a day for 90 days Active Pantoprazole Sodium 40 MG 1 tablet Orall y Two times a day for 90 days Active CareTouch CPAP & BIPAP Hose 1 DIRECTED Active Prolia 60 MG/ML as directed subcutaneously every 6 months for 12 month(s) Active Isosorbide Dinitrate 30 MG 1 tablet Orally once daily for 90 days Active Aspirin 81 MG 1 tab(s) orally once a day for 30 day(s) Active QUEtiapine Fumarate ER 150 MG 1 tablet in the evening Orally Once a day Active Multivitamin - 1 tab(s) orally once a day w/ Iron Active Melatonin 5 MG 1 tablet at bedtime as needed Orally qhs Active Nitroglycerin 0.4 MG 1 tab(s) sublingual ly q 5min prn x 3 Active Vitamin D3 50 MCG (2000 UT) 1 tablet Orally Once a day for 30 day(s) Active LORazepam 1 MG 1 tablet at bedtime as needed Orally Once a day Active Baclofen 10 MG 1 tablet as needed O rally Twice a day Active Linzess 290 MCG 1 capsule at least 3 0 minutes before the first meal of the day on an empty stomach Orally Once a day for 30 day(s) Active Montelukast Sodium 10 MG 1 tablet Orally Once a day 02/29/2024 Active Flonase Allergy Relief 50 MCG/ACT 1 spray in each nostril Nasally Twice a day Active Doxycycline Hyclate 100 MG 1 tablet Orally Two times a day 10/19/2024 Active Estrace 0.1 MG/GM 1 gm Vaginal 3 times per week 07/13/2024 Active lamoTRIgine 150 MG 1 tablet Orally Two times a day for 90 days Active Atorvastatin Calcium 40 MG 1 tablet Orally Once a day for 90 days Active SUMAtriptan Succinate 50 MG TAKE 1 TABLET BY MOUTH WITH ONSET OF HEADACHE. MAY REPEAT 1 TIME AFTER 2 HOURS. MAX 2 TABLETS IN 24 HOURS. for 12 Active oxyBUTYnin Chloride ER 10 MG TAKE 1 TABLET BY MOUTH ONCE DAILY for 90 Active Vital Signs Blood pressure systolic 110 mm Hg 10/20/19 25 Blood pressure diastolic 70 mm Hg 025 Heart Rate 79 /min 10/19/2024 Height 65 in 10/19/2024 Weight 145.4 lbs 10/19/2024 BMI 24.19 kg/m2 10/19/2024 Encounters Encounter Location Date Provider Diagnosis [facility] [address] [facility] [address] [phone] 10/19/2024 Jeyson Benitez Acute bronchitis J20 .9 ; COPD (chronic obstructive pulmonary disease) J44.9 ; Dyslipidemia E78.5 ; Seasonal allergies J30.2 and BMI 24.0-24.9, adult Z68.24 Assessments Encounter Date Diagnosis (ICD Code) Assessment Notes Treatment Notes Treatment Clinical Notes Section Notes 10/19/2024 Acute bronchitis (ICD-10 - J20.9) 10/19/2024 COPD (chronic obstructive pulmonary disease) (ICD-10 - J44.9) 10/19/2024 Dyslipidemia (ICD-10 - E78.5) 10/19/2024 Seasonal allergies (ICD-10 - J30.2) 10/19/2024 BMI 24.0-24.9, adult (ICD-10 - Z68.24) Plan Of Treatment Medication Medication Name Sig Start Date Stop Date Notes Montelukast Sodium 10 MG 1 tablet Orally Once a day 2023 Flonase Allergy Relief 50 MCG/ACT 1 spray in each nostril Nasally Twice a day Doxycycline Hyclate 100 MG 1 tablet Oral ly Two times a day 10/19/2024 Next Appt Details Follow Up: prn, Reason: Provider Name:China donaldson, 12/30/2024 09:30:00 AM, [address] [place] [address], [address], [place], [phone], Provider Name:Jeyson Smith, 01/02/2025 09:30:00 AM, [address] [place] [address], [place], [phone], Progress Notes * BURT DORANOB:[birth year] (69 yo F)Acc No.[id number]:10/19/2024 Progress Notes Patient: Jaswinder RYANMIRTA WENDY Provider: Jeyson Benitez M.D. :1955 A ge:69 Y S ex:Female Date:10/19/2024 Address:[address] [place] [address] , [place] [id number] Subjective: * Chief Complaints: * 1 . Sore throat, loss of voice. * HPI: E NT/respiratory: She has had symptoms of nasal congestion and drainage for about 3 weeks but in the last 3 days her symptoms have worsened with increased head congestion, postnasal drainage, and cough productive of yellowish sputum. She has had some night sweats and possible fevers in the evening. * ROS: D ERMATOLOGY: no R chanell. n o H sherrie. G ASTROENTEROLOGY: no N ausea. n o V omiting. D iarrhea y es.? U ROLOGY: no D ifficulty urinating. n o B lood in urine. 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 Cath showed on 30- 50% lesion, Anxiety, Depression, Hyperlipidemia, Migraine headache, Osteopenia, SIVO- Small intestinal Bacteria overgrowth, Colitis, Fibromyalgia, COPD - PFTs 10/2015, IBS-D, Memory loss, Oxygen dependent. * Surgical History: a ppendectomy , tubal ligation , bone removed from left thumb-Dr Hodges 08/31/13, heart cath 12/2014, Skin Graft 08/28/2014, EGD and Colonoscopy - Dr. Ball 11/2020. * Hospitalization/Major Diagno stic Procedure: [facility] ER-diarrhea 03/2011, [facility] ER-back pain 06/2012, [facility]-heart attack 12/31/2014, [facility] ER-constipation/impaction 09/2015, [place] [facility]-diarrhea 11/2015, [place] [facility]-Bronchitis 03/2018, Drs office in [place]-possible UTI, tested negative 12/2019. * Family History: F ather: . M other: alive. 2 brother(s) , 1 sister(s) . 1 son(s) , 1 daughter(s) . . * Social History: C URRENT TOBACCO USE S moking Status: P atient does NOT smoke quit after NV 12/2014.?Caffeine: yes, frequency:. Home smoke detector use: yes. Marital Status: . 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 Past smoking status: PPD: 1, years:30 ,determination:. Alcohol: no. * Medications: T aking Baclofen 10 MG Tablet 1 tablet as needed Orally Twice a day , Taking Linzess 290 MCG Capsule 1 capsule at least 30 minutes before the first meal of the day on an empty stomach Orally Once a day , Taking Vitamin D3 50 MCG (2000 UT) Tablet 1 tablet Orally Once a day , Taking LORazepam 1 MG Tablet 1 tablet at bedtime as needed Orally Once a day , Taking Melatonin 5 MG Tablet 1 tablet at bedtime as needed Orally qhs , Taking Nitroglycerin 0.4 MG Tablet Sublingual 1 tab(s) sublingually q 5min prn x 3 , Taking Multivitamin - Tablet 1 tab(s) orally once a day , Notes to Pharmacist: w/ Iron, Taking CareTouch CPAP & BIPAP Hose MACHINE AND SUPPLIES 1 DIRECTED , Taking Prolia 60 MG/ML Solution Prefilled Syringe as directed subcutaneously every 6 months , Taking Aspirin 81 MG Tablet Delayed Release 1 tab(s) orally once a day , Taking QUEtiapine Fumarate ER 150 MG Tablet Extended Release 24 Hour 1 tablet in the evening Orally Once a day , Taking Isosorbide Dinitrate 30 MG Tablet 1 tablet Orally once daily , Taking hydrOXYzine HCl 10 MG Tablet as directed Orally Two times a day , Taking Calcium Citrate 150 MG Capsule 2 capsules Orally Once a day , Taking Pantoprazole Sodium 40 MG Tablet Delayed Release 1 tablet Orally Two times a day , Taking Venlafaxine HCl ER 225 MG Tablet Extended Release 24 Hour TAKE 1 TABLET BY MOUTH ONCE DAILY WITH FOOD , Taking traZODone HCl 100 MG Tablet TAKE 1 TABLET BY MOUTH ONCE DAILY AT BEDTIME , Taking Estrace 0.1 MG/GM Cream 1 gm Vaginal 3 times per week , Taking lamoTRIgine 150 MG Tablet 1 tablet Orally Two times a day , Taking Atorvastatin Calcium 40 MG Tablet 1 tablet Orally Once a day , Taking oxyBUTYnin Chloride ER 10 MG Tablet Extended Release 24 Hour TAKE 1 TABLET BY MOUTH ONCE DAILY , Taking Montelukast Sodium 10 MG Tablet 1 tablet Orally Once a day , Taking Flonase Allergy Relief 50 MCG/ACT Suspension 1 spray in each nostril Nasally Twice a day , Taking SUMAtriptan Succinate 50 MG Tablet TAKE 1 TABLET BY MOUTH WITH ONSET OF HEADACHE. MAY REPEAT 1 TIME AFTER 2 HOURS. MAX 2 TABLETS IN 24 HOURS. , Medication List reviewed and reconciled with the patient * Allergies: P enicillin: anaphylaxis, Savella: memory loss and excessive drowsiness, Indomethacin: disoriented. Objective: * Vitals: W t: 145.4, Temp: 98.5, BP: 110/70, HR: 79, Nurse: kenn, Ht: 65, BMI:24.19. * Examination: E NT/Respiratory: General Appearance: N AD. Ears: a uditory canals normal bilaterally, TM's WNL. Nose : c ongested. Sinuses : n on tender bilaterally. Oral cavity : p ostnasal drainage. Heart : R RR, normal S1 S2, no murmurs. Lungs: c oarse breath sounds , few upper airway rhonchi.? Assessment: * Assessment: 1. A cute bronchitis - J20.9 (Primary) 2 . C OPD (chronic obstructive pulmonary disease) - J44.9 3 . D yslipidemia - E78.5 4 . S easonal allergies - J30.2 5 . B NV 24.0-24.9, adult - Z68.24 Plan: * Treatment: 2. S easonal allergies Continue Montelukast Sodium Tablet, 10 MG, 1 tablet, Orally, Once a day; C ontinue Flonase Allergy Relief Suspension, 50 MCG/ACT, 1 spray in each nostril, Nasally, Twice a day. * Labs: * L ab: CBC Fingerstick (in house) (Collection Date & Time - 10/19/2024) Value Reference Range w bc 8.1 3.5 - 10 * l ym 24.3 15 - 50 * m id 6.1 2 - 15 * g ran 69.6 35 - 80 * r bc 4.68 3.5 - 5.5 * h gb 14.3 11.5 - 16.5 * h ct 43.1 35 - 55 * m cv 92.1 75 - 100 * m ch 30.6 25 - 35 * m chc 33.2 31 - 38 * p lat 215 100 - 400 * Miranda Carrizales 10/19/2024 02:5 8:33 PM > Provider reviewed results while patient in office. * Procedure Codes: G 2211 Complex e/[place], [address] CAPILLARY BLOOD DRAW, 89332 CBC WITH AUTO DIFF, 3074F SYST BP LT 130 MM HG, 3078F DIAST BP < 80 MM HG * Follow Up: p rn * Billing Information: * Visit Code: 58546 Office Visit, Est Pt., Level 4. * Procedure Codes: G2211 Complex e/[place]. [address] CAPILLARY BLOOD DRAW. 13835 CBC WITH AUTO DIFF. 3074F SYST BP LT 130 MM HG. 3078F DIAST BP < 80 MM HG. * Electronic signature of Jeyson Benitez MD on 12/30/2024 at 09:34 AM EDT Sign off status: Pending * Provider: Jeyson Benitez M.D. Date: 10/19/2024 Generated for Adai ng/Aram/eTransmitting on: 12/30/2024 09:34 AM EDT History and Physical Notes * Examination Category Sub-Category Detail Notes Category Not es ENT/Respiratory Oral cavity : postnasal drainage Sinuses : non tender bilateral ly Ears: auditory canals norm al bilaterally, TM's WNL Heart : RRR, normal S1 S2, n o murmurs Lungs: coarse breath sounds , few upper airway rhonchi General Appearance: NAD Nose : congested
--- OUTSIDE RECORDS SUMMARY | 2024-12-29 12:00 | XMS_ITS ---
Author Organization [facility] Address [address] [facility] [address] [place] [phone] Care Team Providers Care Language Teacher Name Role Phone Jeyson Benitez Primary Care Provider China Sánchez [phone] Allergies Allergen (clinical drug ingredient) Drug/Non Drug [...] Interpretation:neg Performing Lab: Notes/Report: neg Result: neg REASON FOR VISIT chills, not feeling well [...] a day Active Vitamin D3 50 MCG (2000 UT) [...] lamoTRIgine 150 MG TAKE 1 TABLET BY TWICE DAILY for 90 Active Pantoprazole Sodium 40 MG TAKE 1 TABLET BY MOUTH TWICE DAILY for 90 Active hydrOXYzine HCl 10 MG as directed Orally Two times a day for 90 days Active traZODone HCl 100 MG TAKE 1 TABLET BY UT ONCE DAILY AT BEDTIME for 90 Active [...] a day w/ Iron Active Vital Signs Blood pressure systolic 110 mm Hg 12/30/19 25 Blood pressure diastolic 60 mm Hg 025 Heart Rate 75 /min 12/29/2024 Height 65 in 12/29/2024 Weight 148.4 lbs 12/29/2024 BMI 24.69 kg/m2 12/29/2024 Encounters Encounter Location Date Provider Diagnosis Jessica [address] [facility] [address] [place] [id number] 12/29/2024 Chinacristy Sánchez Hypoxia R09.02 and Dysuria R30.0 Assessments Encounter Date Diagnosis (ICD Code) Assessment Notes Treatment Notes Treatment Clinical Notes Section Notes 12/29/2024 Hypoxia (ICD-10 - R09.02) 12/29/2024 Dysuria (ICD-10 - R30.0) Plan Of Treatment Medication Medication Name Sig Start Date Stop Date Notes Cefdinir 300 MG 1 cap(s) Orally Two times a day for 10 days 12/29/2024 Pending Test Test Name Order Date Influenza Screen (in house) 12/29/2024 CXR 12/29/2024 CBC Fingerstick (in house) 12/29/2024 Covid test (in house) 12/29/2024 Next Appt Details Provider Name:China John Seymourstefany y, 12/30/2024 09:30:00 AM, [address], [address], [place], [id number], Provider Name:Jeyson Smith, 01/02/2025 09:30:00 AM, [address], [facility], [place], [phone], Progress Notes * BURT DORANOB:[birth year] (69 yo F)Acc No.[id number]:12/29/2024 Progress Notes Patient: WALLACE ESCAIMLLAISE Provider: RANI Dumont :1955 A ge:69 Y S ex:Female Date:12/29/2024 Address:[address] [place] [address] [id number] Pcp:Jeyson Benitez Subjective: * Chief Complaints: * 1 . Chills, not feeling well. * HPI: E NT/respiratory: 69 year old female presents with c/o Fever w ith chills. Hot and cold with chills off and on for a few months, but sts it has gotten worse. Pt [...] today for P t's sts she was sen at Dr. Ball office yesterday and sts she was very sick. Pt sts he done a biopsy of her liver and sts she was unable to hear any of it and had labs done yesterday as well. U rology: c/o burning sensation. L ower back: c/o Low Back Pain. * ROS: D ERMATOLOGY: no R chanell. n o H sherrie. G ASTROENTEROLOGY: no N ausea. n o V omiting. D iarrhea y es.? U ROLOGY: no D ifficulty urinating. n o B lood in urine. 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 Cath showed on [...] Ball 11/2020. * Hospitalization/Major Diagno stic Procedure: [facility] ER-diarrhea 03/2011, [facility] ER-back pain 06/2012, [facility]-heart attack 12/31/2014, [place] ER-constipation/impaction 09/2015, [place] ER-diarrhea 11/2015, [place] ER-Bronchitis 03/2018, Drs office in [place]-possible UTI, tested negative 12/2019. * Family History: F ather: . M other: alive. 2 brother(s) , 1 sister(s) . 1 son(s) , 1 daughter(s) . . * Social History: C URRENT TOBACCO USE S moking Status: P atrosaline does NOT smoke quit after [place] 12/2014.?Caffeine: yes, frequency:. 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 Assessment: * Assessment: 1. H ypoxia - R09.02 (Primary) 2 . D ysuria - R30.0 Plan: * Treatment: 2. D ysuria Start Cefdinir Capsule, 300 MG, 1 cap(s), Orally, Two times a day, 10 days, 20 Capsule, Refills 0.? * Labs: * L ab: Covid test (in house) (Collection Date & Time - 12/29/2024) n eg Value Reference Range R esult: neg * Miranda Carrizales 12/29/2024 04:2 6:56 PM EDT > Provider reviewed results while patient in office. ?Lab: Influenza Screen (in house) (Collection Date & Time - 12/29/2024)?neg * Value Reference Range r esults neg * Miranda Carrizales 12/29/2024 04:2 6:37 PM EDT > Provider reviewed results while patient in office. ?Lab: CBC Fingerstick (in house) (Collection Date & [...] while patient in office. * Procedure Codes: 3 6416 CAPILLARY BLOOD DRAW, 99830 CBC WITH AUTO DIFF, 00758 Flu Test- Nasal Swab, Modifiers: QW , 95414 COVID TEST IN HOUSE, Modifiers: QW * Billing Information: * Visit Code: * Procedure Codes: 74377 CAPILLARY BLOOD DRAW. 88704 CBC WITH AUTO DIFF. 24582 Flu Test- Nasal Swab. Modifiers: QW 86563 COVID TEST IN HOUSE. Modifiers: QW * Electronic signature of RANI Umanzor on 12/30/2024 at 09:33 AM EDT Sign off status: Pending * Provider: RANI Dumont Date: 0 12/29/2024 Generated for Elkin castillo/Aram/eTransmitting on: 0 12/30/2024 09:33 AM EDT History and Physical Notes * HPI (History of Present Illness) Category Sub-Category Detail Notes Category Not es ENT/respiratory sore throat ear pain Short of Breath cough Fever with chills. Hot and cold with chills off and on for a few months, but sts it has gotten worse. Pt sts she has taken Tylenol and Ibuprofen headache body aches Cardiology Short of Breath Dizziness Blood Pressure Elevated Pt sts her BP [place] s been very high Weakness Lower back Low Back Pain Urology burning sensation HPI Patient is here today for Pt's h usband sts she was sen at Dr. Ball office yesterday and sts she was very sick. Pt sts he done a biopsy of her liver and sts she was unable to hear any of it and had labs done yesterday as well
--- NOTE | 2024-12-30 | XR_ITS ---
PROCEDURE INFORMATION: Exam: XR Chest Exam date and time: 12/30/2024 10:02 AM Age: 69 years old Clinical indication: Other: Hypoxia TECHNIQUE: Imaging protocol: Radiologic exam of the chest. Views: 2 views. COMPARISON: CR XR CHEST PORTABLE 08/20/2024 8:16 AM FINDINGS: Lungs: There are minimal airspace opacities in the left lung base. Pleural spaces: There is no pneumothorax or pleural effusion. Heart/Mediastinum: There is no cardiomegaly. Bones/joints: Osseous structures demonstrate no acute abnormalities. IMPRESSION: Minimal airspace opacities in the left lung base, likely related atelectasis.
--- OUTSIDE RECORDS SUMMARY | 2024-12-30 09:33 | XMS_ITS ---
Author Organization Unknown Medications Medication Instructions Effective Dates (start - stop) Status venlafaxine ER 225 mg tablet,extended release 24 hr 2023-08-19 - Active hydroxyzine HCl 10 mg tablet 2 PO at night 2023-09-08 - Active Lyrica 50 mg capsule 2024-04-13 - Active oxybutynin chloride ER 10 mg tablet,extended release 24 hr qd 2023-08-19 - Active Seroquel XR 150 mg tablet,extended release 1 PO daily 2023-09-28 - 2023-10-04 Stopped Trelegy Ellipta 100 mcg-62.5 mcg-25 mcg powder for inhalation 2023-08-19 - Active quetiapine 200 mg tablet 1 and 1/2 PO daily 2023-09-08 - 2023-09-28 Stopped Lyrica 150 mg capsule 1 PO 2x daily 2023-10-19 - 03-16 Stopped Lyrica 200 mg capsule 1 PO 2x daily 2023-09-28 - 10-18 Stopped aspirin 81 mg tablet,delayed release qd 2023-08-19 - Active hydroxyzine HCl 10 mg tablet BID 2023-08-19 - 2023-09-08 Stopped trazodone 100 mg tablet 1 PO 2x daily 2023-08-25 - Act silvino atorvastatin 80 mg tablet qd 2023-08-1902-10-18 Stopped Linzess 290 mcg capsule 2024-04-13 - Acti ve quetiapine 200 mg tablet qd 2023-08-19 - 10-12-27 Stopped atorvastatin 40 mg tablet 1 PO 2x daily 2023-09-28 - A ctive trazodone 150 mg tablet qhs 2023-08-19 - 2023 Stopped tramadol 44 mg-celecoxib 56 mg tablet 2024-03-14 - Active Miralax 17 gram/dose oral powder 2024-03-14 - Active Seroquel 100 mg tablet 1 PO daily 2023-10-04 - Activ e isosorbide mononitrate ER 30 mg tablet,extended release 24 hr qd 2023-08-19 - Active Plan of Treatment Patient Care team information Name Category Status Period Participants - - Proposed period not known -
--- OUTSIDE RECORDS SUMMARY | 2024-12-30 09:33 | XMS_ITS | Patient Health Record ---
[facility] [address] [facility] [address] DEY Khan [id number] Care Team Providers Care Scalp Specialist Name Role Phone Jeyson Benitez Primary Care Provider Sang Regan Unavailable [phone] Marlena Antonio Unavailable [phone] China Sánchez Unavailable [phone] Allergies Allergen (clinical drug ingredient) Drug/Non Drug [...] Interpretation:neg Performing Lab: Notes/Report: neg Result: neg CBC Fingerstick (in house) Reviewed date:08/28/2024 08:12:23 PM Interpretation: Performing Lab: Notes/Report: wbc 6.7 3.5 - 10 lym 27.2 15 - 50 mid 6.9 2 - 15 gran 65.9 35 - 80 rbc 4.81 3.5 - 5.5 hgb 14.2 11.5 - 16.5 hct 43.4 35 - 55 mcv 90.3 75 - 100 mch 29.5 25 - 35 mchc 32.6 31 - 38 plat 256 100 - 400 CBC Fingerstick (in house) Reviewed date:10/19/2024 08:08:25 [...] - 38 plat 215 100 - 400 P-Hemoglobin A1C Reviewed date:06/29/2024 04:17:23 PM Interpretation:Normal Performing Lab: Notes/Report: Test performed by [facility] [address] [place], [place] [address] [place] Shreya Cruz C, [place] [address] Tim Parrish MD, Cnc Wood Lathe Operator CLIA: [id number] Hemoglobin A1C 5.4 <5.7 % The following HbA1c ranges recommended by the [place] [employer] (ADA) may be used as an aid in the diagnosis of diabetes mellitus. HbA1c Suggested Diagnosis >=6.5% Diabetic 5.7% - 6.4% Pre-Diabetic <5.7% Non-Diabetic Miscell Ref Lab Test Reviewed date:06/29/2024 10:43:23 AM Interpretation: Normal Performing Lab: Notes/Report: Test Cancelled Test Cancelled Other Percent Saturation Reviewed date:06/29/2024 04:17:23 PM Interpretation:Normal Performing Lab: Notes/Report: Test performed by [facility] [address] [place], [place] [address] [place] Shreya Cruz C, [place] [address] Tim Parrish MD, Cnc Wood Lathe Operator CLIA: [id number] Percent Saturation 29 15-50 % Estimated Average Glucose Reviewed date:06/29/2024 04:17:23 PM Interpretation:Normal Performing Lab: Notes/Report: Test performed by [facility] [address] [place] [address] , [address], [place] [address] Tim Parrish MD, Cnc Wood Lathe Operator CLIA: [id number] Estimated Average Glucose (eAG) 108 Estimated Average Glucose (eAG) is calculated using the equation eAG = (28.7 x HbA1c) - 46.7 based on the guidelines established by the ADA. If the patient has certain diseases including kidney disease, sickle cell anemia, thalassemia, or is taking medications such as dapsone, erythropoietin, or iron, eAG should not be evaluated. Estimated Average Glucose (eAG) is calculated using the equation eAG = (28.7 x HbA1c) - 46.7 based on the guidelines established by the ADA. If the patient has certain diseases including kidney disease, sickle cell anemia, thalassemia, or is taking medications such as dapsone, erythropoietin, or iron, eAG should not be evaluated. Estimated Average Glucose (eAG) 108 Estimated Average Glucose (eAG) is calculated using the equation eAG = (28.7 x HbA1c) - 46.7 based on the guidelines established by the ADA. If the patient has certain diseases including kidney disease, sickle cell anemia, thalassemia, or is taking medications such as dapsone, erythropoietin, or iron, eAG should not be evaluated. Estimated Average Glucose (eAG) is calculated using the equation eAG = (28.7 x HbA1c) - 46.7 based on the guidelines established by the ADA. If the patient has certain diseases including kidney disease, sickle cell anemia, thalassemia, or is taking medications such as dapsone, erythropoietin, or iron, eAG should not be evaluated. P-Vitamin B1 (Thiamine), Ser um/Plasma, LC/MS/MS Reviewed date:06/29/2024 10:43:05 AM Interpretation: Performing Lab: Notes/Report: Urinalysis - Inhouse Reviewed date:07/13/2024 01:20:35 PM Interpretation: Performing Lab: Notes/Report: Color/Clarity yellow/clear Leuk Neg Nitrite 3.2 Urobili Neg Protein 6.0 pH Neg Blood 1.010 Sp. Gr. Neg Ketone Neg Bili Neg Gluc Neg Rapid Strep- Inhouse Reviewed date:07/13/2024 11:31:10 AM Interpretation: Performing Lab: Notes/Report: strep test Neg CBC Fingerstick (in house) Reviewed date:07/13/2024 11:31:19 AM Interpretation: Performing Lab: Notes/Report: wbc 7.6 3.5 - 10 lym 23.0% 15 - 50 mid 5.8% 2 - 15 gran 71.2% 35 - 80 rbc 4.78 3.5 - 5.5 hgb 14.3 11.5 - 16.5 hct 43.0 35 - 55 mcv 89.9 75 - 100 mch 29.9 25 - 35 mchc 33.3 31 - 38 plat 202 100 - 400 Holter Monitor- 48 hour Reviewed date:08/15/2024 08:13:51 AM Interpretation:NSR Performing Lab: Notes/Report: NSR P-Vitamin B1 (Thiamine), Ser um/Plasma, LC/MS/MS Reviewed date:07/03/2024 01:32:17 PM Interpretation:56 Performing Lab: Notes/Report: Vitamin B1 (Thiamine), Plasma, LC/MS/MS 56 4-15 nmol/L INTERPRETIVE DATA: Vitamin B1, Plasma Thiamine (vitamin B1) is reported. However, thiamine diphosphate (TDP), the biologically active form of thiamine, is not found in measurable concentrations in plasma, and is best determined in whole blood specimens. Plasma thiamine concentration reflects recent intake rather than body stores. This test was developed and its performance characteristics determined by [facility]. It has not been cleared or approved by the US Food and Drug Administration. This test was performed in a CLIA certified laboratory and is intended for clinical purposes. Performed By: [facility] [address] [place] [address] Cnc Wood Lathe Operator: Cesar Arnold MD, PhD CLIA Number: [id number] Glycohemoglobin A1c (in hous e) Reviewed date:06/29/2024 04:17:23 PM Interpretation:5.3% Normal Performing Lab: Notes/Report: 5.3% Normal glycohemoglobin 5.3% 5 - 6.5 % P-CBC with Diff plus Absolut e Counts Reviewed date:06/29/2024 04:17:23 PM Interpretation:Normal Performing Lab: Notes/Report: Test performed by [facility] [address] , [address], [place] [address] Tim Parrish MD, Cnc Wood Lathe Operator CLIA: [id number] WBC 6.1 3.8-11.5 K/uL Red Blood Cell Count (RBC) 5.03 3.60-5.30 M/mm 3 Hemoglobin (Hgb) 14.9 11.5-15.5 gm/dL Hematocrit (HCT) 46.0 35.2-46.4 % MCV 91.5 79.0-99.0 fL MCH 29.6 26.9-35.0 pg MCHC 32.4 30.4-34.8 g/dL RDW 45.7 38.6-53.8 fL Platelet Count 251 137-397 K/cumm Neutrophils Automated 50.8 41.0-77.0 % Lymphocytes Automated 36.5 14.0-48.0 % Monocytes Automated 9.0 4.0-13.0 % Eosinophils Automated 2.6 0.0-8.0 % Basophils Automated 0.8 0.0-1.5 % Immature Granulocyte Automated 0.3 0.0-1.0 % Absolute Neutrophil Count 3.1 2.0-8.2 K/uL Absolute Lymphocyte Count 2.2 0.9-3.6 K/uL Absolute Monocyte Count 0.6 0.3-1.0 K/uL Absolute Eosinophil Count 0.2 0.0-0.6 K/uL Absolute Basophil Count 0.1 0.0-0.1 K/uL Absolute Immature Granulocyte 0.02 0.00-0.03 K/uL P-Comprehensive Metabolic Pa suzanne (CMP) Reviewed date:06/29/2024 04:17:23 PM Interpretation:bun 28, alt 81, ast 51 Performing Lab: Notes/Report: Test performed by [facility] [address] [place] [address] , [address] , [place] [address] Tim Parrish MD, Cnc Wood Lathe Operator CLIA: [id number] Sodium 139 135-145 mmol/L Potassium 4.9 3.5-5.3 mmol/L Chloride 102 97-108 mmol/L CO2 24 22-32 mmol/L Glucose 93 65-99 mg/dL BUN 28 8-23 mg/dL Creatinine 0.85 0.50-1.00 mg/dL Calcium 9.7 8.6-10.4 mg/dL eGFR by Creatinine 75 >59 mL/min/1.73m2 Protein 6.9 6.0-8.3 g/dL Albumin 4.5 3.5-5.3 g/dL Alkaline Phosphatase 104 35-121 IU/L ALT (SGPT) 81 <5-47 IU/L AST (SGOT) 51 <5-40 IU/L Bilirubin, Total 0.4 <0.2-1.2 mg/dL A/G Ratio 1.9 1.1-2.5 P-Copper Reviewed date:06/29/2024 04:17:23 PM Interpretation:Normal Performing Lab: Notes/Report: Copper 122.4 80.0-155.0 ug/dL INTERPRETIVE INFORMATION: Copper, Serum or Plasma Elevated results may be due to skin or collection-related contamination, including the use of a noncertified metal-free collection/transport tube. If contamination concerns exist due to elevated levels of serum/plasma copper, confirmation with a second specimen collected in a certified metal-free tube is recommended. Serum copper may be elevated with infection, inflammation, stress, and copper supplementation. In females, elevated copper may also be caused by oral contraceptives and (concentrations may be elevated up to 3 times normal during the third trimester). This test was developed and its performance characteristics determined by [facility]. It has not been cleared or approved by the US Food and Drug Administration. This test was performed in a CLIA certified laboratory and is intended for clinical purposes. Performed By: [facility] [address] [place] [address] Cnc Wood Lathe Operator: Cesar Arnold MD, PhD CLIA Number: [id number] P-Folate Reviewed date:06/29/2024 04:17:23 PM Interpretation:Normal Performing Lab: Notes/Report: Test performed by [facility] [address] , [address], [place] [address] Tim Parrish MD, Cnc Wood Lathe Operator CLIA: [id number] Folate >20 >4.59 ng/mL P-Selenium, Serum/Plasma Reviewed date:06/29/2024 04:17:23 PM Interpretation:Normal Performing Lab: Notes/Report: Selenium, Serum/Plasma 126.3 23.0-190.0 ug/L INTERPRETIVE INFORMATION: Selenium, Serum or Plasma Elevated results may be due to contamination from skin or other collection-related issues, including the use of a noncertified metal-free collection/transport tube. If contamination concerns exist due to elevated levels of serum/plasma selenium, confirmation with a second specimen collected in a certified metal-free tube is recommended. Serum selenium levels can be used in the determination of deficiency or toxicity. Plasma and serum contains 75 percent of the selenium measured in whole blood and reflects recent dietary intake. Selenium deficiency can occur endemically or as a result of sustained TPN or restricted diets and has been associated with cardiomyopathy and may exacerbate hypothyroidism. Selenium toxicity is relatively rare. Excess intake of selenium can result in symptoms consistent with selenosis and include gastrointestinal upset, hair loss, white blotchy nails, and mild nerve damage. This test was developed and its performance characteristics determined by [facility]. It has not been cleared or approved by the US Food and Drug Administration. This test was performed in a CLIA certified laboratory and is intended for clinical purposes. Performed By: [facility] [address] [place] [address] C[employer] Wood Lathe Operator: Cesar Arnold MD, PhD CLIA Number: [id number] P-Ferritin Reviewed date:06/29/2024 04:17:23 PM Interpretation:Normal Performing Lab: Notes/Report: Test performed by [facility] [address] [place] [address] , [facility] [place] [address] Tim Parrish MD, Cnc Wood Lathe Operator CLIA: [id number] Ferritin 25.1 13.0-301.0 ng/mL P-T4 Free (thyroxine) Reviewed date:06/29/2024 04:17:23 PM Interpretation:Normal Performing Lab: Notes/Report: Test performed by [facility] [address] [place] [address] Jennifer Cruz, [place] [address] Tim Parrish MD, Cnc Wood Lathe Operator CLIA: [id number] Thyroxine Free (free T4) 0.94 0.86-1.76 ng/dL P-Iron Binding Cap Reviewed date:06/29/2024 04:17:23 PM Interpretation:Normal Performing Lab: Notes/Report: Test performed by [facility] [address] [place] [address] Jennifer Cruz, [facility] C, [place] [address] Tim Parrish MD, Cnc Wood Lathe Operator CLIA: [id number] Iron Binding Cap 344 250-450 ug/dL P-Iron Reviewed date:06/29/2024 04:17:23 PM Interpretation:Normal Performing Lab: Notes/Report: Test performed by [facility] [address] [place] [address] , [address], [place] [address] Tim Parrish MD, Cnc Wood Lathe Operator CLIA: [id number] Iron 99 37-145 ug/dL P-Lipid Panel Reviewed date:06/29/2024 04:17:23 PM Interpretation:Normal Performing Lab: Notes/Report: Test performed by [facility] [address] [place] [address] , Shreya C, [place] [address] Tim Parrish MD, Cnc Wood Lathe Operator CLIA: [id number] Cholesterol 125 <200 mg/dL Triglycerides 82 <150 mg/dL HDL Cholesterol 55 >39 mg/dL Cholesterol / HDL Ratio 2.27 0.00-4.44 Ratio Non-HDL Cholesterol 70 <130 mg/dL LDL Cholesterol (Calculation) 54 <130 mg/dL LDL Cholesterol Levels* Less than 100 mg/dL Optimal 100 to 129 mg/dL Near Optimal/ Above Optimal 130 to 159 mg/dL Borderline High 160 to 189 mg/dL High 190 mg/dL and above Very High * Categories as recommended by the 2004 ATPIII guidelines LDL/HDL Ratio 1.0 <3.3 Ratio LDL Cholesterol Patient History Test Date: 12/28/2023 LDL Results: 57 Units: mg/dL % Change: - Test Date: 06/22/2024 LDL Results: 54 Units: mg/dL % Change: -5% P-MMA Serum/Plasma, Vitamin B12 Status Reviewed date:06/29/2024 04:17:23 PM Interpretation:Normal Performing Lab: Notes/Report: MMA Serum/Plasma, Vitamin B12 Status 0.15 0.00-0.40 umol/L INTERPRETIVE INFORMATION: MMA Serum/Plasma, Vitamin B12 Status This test was developed and its performance characteristics determined by [facility]. It has not been cleared or approved by the US Food and Drug Administration. This test was performed in a CLIA certified laboratory and is intended for clinical purposes. Performed By: [facility] [address] [place] [address] Cnc Wood Lathe Operator: Cesar Arnold MD, PhD CLIA Number: [id number] P-Prealbumin Reviewed date:06/29/2024 04:17:23 PM Interpretation:Normal Performing Lab: Notes/Report: Test performed by [facility] [address] [place], [place] [address] [place] , [place] [address] Tim Parrish MD, Cnc Wood Lathe Operator CLIA: [id number] Prealbumin 21.0 20.0-40.0 mg/dL P-TSH Reviewed date:06/29/2024 04:17:23 PM Interpretation:Normal Performing Lab: Notes/Report: Test performed by [facility] [address] [place], [place] [address] [place] , [address], [place] [address] Tim Parrish MD, Cnc Wood Lathe Operator CLIA: [id number] TSH 1.08 0.43-5.25 mU/L P-Vitamin A (Retinol), Serum Reviewed date:06/29/2024 04:17:23 PM Interpretation:Normal Performing Lab: Notes/Report: Test Cancelled Test Cancelled TNP - Incor rect Specimen. Unable to perform due to incorrect specimen submission P-Vitamin D 25-Hydroxy Reviewed date:06/29/2024 04:17:23 PM Interpretation:Normal Performing Lab: Notes/Report: Test performed by [facility] [address] [facility] , [address], [place] [address] Tim Parrish MD, Cnc Wood Lathe Operator CLIA: [id number] Vitamin D 25-Hydroxy 65.0 30.0-100.0 ng/mL Interpretation of Vitamin D 25 OH: < 20 ng/mL - Deficiency 20 - 29 ng/mL - Insufficiency 30 - 100 ng/mL - Sufficiency > 100 ng/mL - Super-therapeutic- toxicity may occur above this level. Clinical correlation required. P-Vitamin B1 (Thiamine), Ser um/Plasma, LC/MS/MS Reviewed date:06/29/2024 04:17:23 PM Interpretation:Normal Performing Lab: Notes/Report: Test Cancelled Test Cancelled TNP - Incor rect Specimen. Unable to perform due to incorrect specimen submission P-Zinc, Serum/Plasma Reviewed date:06/29/2024 04:17:23 PM Interpretation:Normal Performing Lab: Notes/Report: Zinc, Serum/Plasma 98 60-130 mcg/dL Test developed and its analytical performance characteristics have been determined by [facility] [place] [place]. It has not been cleared or approved by the U.S. Food and Drug Administration. This assay has been validated pursuant to the CLIA regulations and is used for clinical purposes. Test Performed By [facility] , CLIA [id number] [facility] [address], Filipe Meier MD PhD Medications Medication SIG (Take, Route, Frequency, Duration) Notes Start Date End Date Status SUMAtriptan Succinate 50 MG TAKE 1 TABLET BY MOUTH WITH ONSET OF HEADACHE. MAY REPEAT 1 TIME AFTER 2 HOURS. MAX 2 TABLETS IN 24 HOURS. for 12 days Active Estrace 0.1 MG/GM 1 gm Vaginal 3 times per week 07/13/2024 Active Pantoprazole Sodium 40 MG TAKE 1 TABLET BY MOUTH TWICE DAILY for 90 Active Linzess 290 MCG 1 capsule at least 3 0 minutes before the first meal of the day on an empty stomach Orally Once a day for 30 day(s) Active Baclofen 10 MG 1 tablet as needed Orally Twice a day Active Doxycycline Hyclate 100 MG 1 tablet Orally Two times a day 10/19/2024 Not-Taking LORazepam 1 MG 1 tablet at bedtime as needed Orally Once a day Active Vitamin D3 50 MCG (1999 UT) 1 tablet Orally Once a day for 30 day(s) Active oxyBUTYnin Chloride ER 10 MG TAKE 1 TABLET BY MOUTH ONCE DAILY for 90 days Active Atorvastatin Calcium 40 MG TAKE 1 TABLET BY MOUTH ONCE DAILY for 90 Active Flonase Allergy Relief 50 MCG/ACT 1 spray in each nostril Nasally Twice a day Active Venlafaxine HCl ER 225 MG TAKE 1 TABLET BY MOUTH ONCE DAILY WITH FOOD for 30 Active Montelukast Sodium 10 MG 1 tablet Orally Once a day 02/29/2024 Active lamoTRIgine 150 MG TAKE 1 TABLET BY DOV TWICE DAILY for 90 Active Nitroglycerin 0.4 MG 1 tab(s) sublingual ly q 5min prn x 3 Active Cefdinir 300 MG 1 cap(s) Orally Two times a day for 10 days 12/29/2024 Active Melatonin 5 MG 1 tablet at bedtime as needed Orally qhs Active CareTouch CPAP & BIPAP Hose 1 DIRECTED Active Multivitamin - 1 tab(s) orally once a day w/ Iron Active hydrOXYzine HCl 10 MG as directed Orally Two times a day for 90 days Active Isosorbide Dinitrate 30 MG 1 tablet Orally once daily for 90 days Active traZODone HCl 100 MG TAKE 1 TABLET BY [facility] ONCE DAILY AT BEDTIME for 90 Active Calcium Citrate 150 MG 2 capsules Orally Once a day for 90 days Active Prolia 60 MG/ML as directed subcutaneously every 6 months for 12 month(s) Active QUEtiapine Fumarate ER 150 MG 1 tablet in the evening Orally Once a day Active Aspirin 81 MG 1 tab(s) orally once a day for 30 day(s) Active Immunizations Vaccine Route Administration Date Status Comme nts COVID 19 Moderna Unknown 09/11/2020 Administered COVID 19 Moderna Unknown 10/09/2020 Administered COVID 19 Moderna Unknown 06/16/2021 Administered Fluzone High Dose (65yr and older) Unknown 04/29/2023 Administered Fluzone PF Quad (6-35 months) Unknown 04/24/2022 Administered Fluzone Quad (6months&older) IM Intramuscular 05/28/2017 Administered Fluzone Quad (6months&older) IM Intramuscular 04/30/2020 Administered Fluzone Quad-Medicare (6months&older) Unknown 03/18/2021 Administered MMR Unknown 12/22/2005 Administered PNEUMOVAX 23 VACCINE IM Intramuscular 06/15/2017 Administe red PNEUMOVAX 23 VACCINE Unknown 03/18/2021 Administered Prevnar (PCV20) Unknown 04/24/2022 Administered Shingrix Unknown 03/18/2021 Administered Shingrix Unknown 06/16/2021 Administered Morphine 10mg/ml IM Intramuscular 03/03/2006 Administered Problems Problem Type SNOMED Code ICD Code Onset Dates Problem Status W/U Status Risk Notes Problem Essential hypertension (75766832) Essential (primary) hypertension (I10) Active confirmed Problem 202781258 History of ASCVD (Z86.79) Active confirmed Problem COPD - Chronic obstructive pulmonary disease (88846900) COPD (chronic obstructive pulmonary disease) (J44.9) Active confirmed Problem 787136126 COPD with exacerbation (J44.1) Active confirmed Problem Osteopenia (406506838) Osteopenia (M85.80) Active confirmed Problem Seasonal allergy (522873345) Seasonal allergies (J30.2) Active confirmed Problem 732807171 Depression with anxiety (F41.8) Active confirmed Problem 944517568 OAB (overactive bladder) (N32.81) Active confirmed Problem 768040572 Memory loss (R41.3) Active confirmed Problem 91637235 Fibromyalgia (M79.7) Active confirmed Problem 2636277 Vasomotor rhinitis (J30.0) Active confirmed Problem 801599165 Irritable bowel syndrome with diarrhea (K58.0) Active confirmed Problem 898939414 Migraine without aura and without status migrainosus, not intractable (G43.009) Active confirmed Problem Atrophic vaginitis (75851093) Atrophic vaginitis (N95.2) Active confirmed Problem 24957583 Sacroiliitis (M46.1) Active confirmed Problem Dependence on supplemental oxygen (408012065570) Oxygen dependent (Z99.81) Active confirmed Problem 936286233 Dyslipidemia (E78.5) Active confirmed Problem 14429608 Seasonal allergic rhinitis due to pollen (J30.1) Active confirmed Problem Degenerative disc disease (71965087) DDD (degenerative disc disease), lumbar (M51.36) Active confirmed Problem 009150956 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) Active confirmed Problem Malabsorption syndrome (74423886) Malabsorption due to intolerance, not elsewhere classified (K90.49) Active confirmed Problem 811737775 Personal history of tobacco use (Z87.891) Active confirmed Problem Degeneration of thoracic intervertebral disc (84155561) DDD (degenerative disc disease), thoracic (M51.34) Active confirmed Vital Signs Heart Rate 75 /min 12/29/2024 Blood pressure diastolic 60 mm Hg 12/29/2024 Height 65 in 12/29/2024 Blood pressure systolic 110 mm Hg 12/29/2024 Weight 148.4 lbs 12/29/2024 BMI 24.69 kg/m2 12/29/2024 Encounters Encounter Location Date Provider Diagnosis [facility] [address] [facility] [address] EDY Khan [id number] 02/03/2024 China Sánchez Non-seasonal allergi c rhinitis, unspecified trigger J30.89 ; Benign paroxysmal positional vertigo due to bilateral vestibular disorder H81.13 and Symptomatic hypotension I95.9 [facility] [address] [facility] [address] EDY Khan [id number] 02/29/2024 R Foreign Emmanuel Fibromyalgia M79.7 a nd Seasonal allergies J30.2 [facility] [address] [facility] [address] EDY Khan [id number] 03/30/2024 R Foreign Emmanuel Vaginal yeast infect ion B37.31 and Abnormal thyroid function test R94.6 [facility] [address] [facility] [address] EDY Khan [id number] 04/27/2024 R Foreign Emmanuel Seasonal allergies J30.2 and Fibromyalgia M79.7 [facility] [address] [facility] [address] EDY Khan [id number] 06/22/2024 R Foreign Emmanuel Fibromyalgia M79.7 ; Malabsorption due to intolerance, not elsewhere classified K90.49 ; Status post bariatric surgery Z98.84 ; Dyslipidemia E78.5 ; Vaginal yeast infection B37.31 and Hypoglycemia E16.2 [facility] [address] [facility] [address] EDY Khan [id number] 06/26/[address] [facility] Malabsorption due to intolerance, not elsewhere classified K90.49 [facility] [facility] [facility] [address] [place], [place] [id number] 07/13/2024 R Foreign Emmanuel URI (upper respirato ry infection) J06.9 and Atrophic vaginitis N95.2 [facility] [address] [place], [place] [id number] 07/25/2024 R Foreign Emmanuel Palpitations R00.2 [facility] [address] [place], [place] [id number] 08/28/2024 Marlena Antonio Sinusitis J32.9 and Papules R23.8 [facility] [address] [place] [id number] 10/19/2024 R Foreign Emmanuel Acute bronchitis J20 .9 ; COPD (chronic obstructive pulmonary disease) J44.9 ; Dyslipidemia E78.5 ; Seasonal allergies J30.2 and BMI 24.0-24.9, adult Z68.24 [facility] [address] [place], [place] [id number] 12/29/2024 China Crowdy Hypoxia R09.02 and Dysuria R30.0 [facility] [address] [place] [id number] 12/30/2024 China Crowdy [facility] [address] [place] [id number] 01/03/2024 R Foreign Emmanuel [facility] [address] [place] [id number] 01/05/2024 R Foreign Emmanuel [facility] [address] [place] [id number] 02/16/2024 R Foreign Emmanuel Fibromyalgia M79.7 [facility] [address] [place] [id number] 03/14/2024 R Foreign Emmanuel [facility] [address] [place] [id number] 05/24/2024 R Foreign Emmanuel Seasonal allergies J30.2 [facility] [address] [place] [id number] 06/29/2024 R Foreign Emmanuel [facility] [address] [place], [place] [id number] 07/03/2024 R Foreign Emmanuel [facility] [address] [place] [id number] 08/15/2024 R Foreign Emmanuel [facility] [address] [place] [id number] 08/15/2024 R Foreign Emmanuel [facility] [address] [place] [id number] 08/17/2024 R Foreign Emmanuel Seasonal allergies J30.2 [facility] [address] [place] [id number] 10/31/2024 R Foreign Emmanuel [facility] [address] [place] [id number] 11/21/2024 R Foreign Emmanuel Assessments Encounter Date Diagnosis (ICD Code) Assessment Notes Treatment Notes Treatment Clinical Notes Section Notes 02/03/2024 Non-seasonal allergic rhinitis, unspecified trigger (ICD-10 - J30.89) 02/03/2024 Benign paroxysmal positional vertigo due to bilateral vestibular disorder (ICD-10 - H81.13) Gave a handout to Avis's maneuver to do at home. If no improvement, will send to PT. 02/16/2024 Fibromyalgia (ICD-10 - M79.7) 02/29/2024 Seasonal allergies (ICD-10 - J30.2) Continue [facility] 02/29/2024 Fibromyalgia (ICD-10 - M79.7) 05/24/2024 Seasonal allergies (ICD-10 - J30.2) 06/26/2024 Malabsorption due to intolerance, not elsewhere classified (ICD-10 - K90.49) 07/13/2024 URI (upper respiratory infection) (ICD-10 - J06.9) 07/13/2024 Atrophic vaginitis (ICD-10 - N95.2) 08/17/2024 Seasonal allergies (ICD-10 - J30.2) 08/28/2024 Sinusitis (ICD-10 - J32.9) continue also with astelin nasal spray; tylenol/motrin prn 08/28/2024 Papules (ICD-10 - R23.8) discuused seeing Derm; she will wait and see what happens with ABX and not having to blow her nose as often; instructed not to wear makeup on the nose until all papules gone; discussed that this may herpatic papules 10/19/2024 Acute bronchitis (ICD-10 - J20.9) 10/19/2024 COPD (chronic obstructive pulmonary disease) (ICD-10 - J44.9) 06/22/2024 Fibromyalgia (ICD-10 - M79.7) 06/22/2024 Malabsorption due to intolerance, not elsewhere classified (ICD-10 - K90.49) 12/29/2024 Hypoxia (ICD-10 - R09.02) 12/29/2024 Dysuria (ICD-10 - R30.0) 07/25/2024 Palpitations (ICD-10 - R00.2) 04/27/2024 Seasonal allergies (ICD-10 - J30.2) 03/30/2024 Abnormal thyroid function test (ICD-10 - R94.6) Reviewed labs from bariatric surgeon. Regarding her thyroid function, her TSH is in the mid normal range. T4 is very minimally low at 5/100th of a point. I explained to patient that this is not clinically significant and would not recommend any treatment. This will continue to be monitored by her bariatric surgeon at periodic intervals 03/30/2024 Vaginal yeast infection (ICD-10 - B37.31) 10/19/2024 Dyslipidemia (ICD-10 - E78.5) 04/27/2024 Fibromyalgia (ICD-10 - M79.7) 06/22/2024 Status post bariatric surgery (ICD-10 - Z98.84) 02/03/2024 Symptomatic hypotension (ICD-10 - I95.9) Will stop losartan and monitor BP. If still low, will contact cardiology. 10/19/2024 Seasonal allergies (ICD-10 - J30.2) 06/22/2024 Dyslipidemia (ICD-10 - E78.5) 10/19/2024 BMI 24.0-24.9, adult (ICD-10 - Z68.24) 06/22/2024 Vaginal yeast infection (ICD-10 - B37.31) 06/22/2024 Hypoglycemia (ICD-10 - E16.2) Plan Of Treatment Pending Test Test Name Order Date Influenza Screen (in house) 12/29/2024 CXR 12/29/2024 CBC Fingerstick (in house) 12/29/2024 P-Comprehensive Metabolic Panel (CMP) P-Lipid Panel 09/21/2023 Covid test (in house) 12/29/2024 Next Appt Details Provider Name:China donaldson, 12/30/2024 09:30:00 AM, [address], [address], [place], [place], [id number], Provider Name:Jeyson Smith, 01/02/2025 09:30:00 AM, [address], [address], [place], [place], [id number], Insurance Providers Payer Name Payer Address Payer Phone Subscriber Number Group Number Insured Name Patient Relationship to Insured Coverage Start Date Coverage End Date MEDICARE PART B [address] [address] [place] [id number] WENDY DORAN Self - patient is the insured [facility] [employer] [address] [place] [address] [phone] [id number] WENDY DORAN Self - patient is the insured Medications Administered Medication Instructions Date of Administration Dosage Notes Dexamethasone 06/28/2018 1 mL Dexamethasone 05/02/2019 1 mL Dexamethasone 02/10/2022 1 mL Dexamethasone 06/09/2022 1 mL Phenergan 12.5 mgs. 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 Ca th showed on 30-50% lesion anxiety depression hyperlipidemia migraine headache Osteopenia SIVO- Small intestinal Bacteria overgrow th Colitis Fibromyalgia COPD - PFTs 10/2015 IBS-D Memory loss Oxygen dependent Surgical History Surgery Date(Month/Year) appendectomy tubal ligation bone removed from left thumb-Dr Hodges 08/31/13 heart cath 12/2014 Skin Graft 08/28/2014 EGD and Colonoscopy - Dr. Ball 11/2020 Hospitalization History Reason Date(Month/Year) Drs office in [place]-possible UTI, te sted negative 12/2019 [place] [facility]-Bronchitis 03/2018 [place] [facility]-diarrhea 11/2015 [facility]-constipation/impaction 2015 [facility]-heart attack 12/31/2014 [facility] ER-back pain 06/2012 [facility] ER-diarrhea 03/2011
--- OUTSIDE RECORDS SUMMARY | 2024-12-30 09:34 | XMS_ITS | Data Portability ---
Author Organization [place] [facility] [place] ADMIN Address [address] [place] [id number] Care Team Providers Care Director Agricultural Services Name Role Phone GENET BRUCE Primary Care Provider [phone] Assessment Encounter Date Assessment Date Assessment LastModified by Organization Details LastModified Time 06/26/2024 06/26/2024 68-year-old female with: 1) Elevated [...] for screening. f/u 6 months and PRN [email or web address] Not available 06/26/2024 13:49:07 12/27/2024 12/27/2024 69-year-old female with: 1) Elevated liver enzymes/suspect ed MASH: First noted following bariatric surgery 12/2022. -US liver 01/17/24 was unremarkable. 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 She has had greater than 90 lb weight loss without much change in LFTs. She has actually had mildly worsening LFTs in the setting of stable weight, normal BMI. -Avoid NSAIDS. She may take acetaminophen, not to exceed 2 g in 24 hours. -Diet and exercise counseled -Continue to avoid alcohol -We will obtain image guided liver biopsy for more accurate fibrosis staging and to help rule out other potential underlying etiology for her transaminitis. -If c/w MASH and stage 2/3, we will consider addition of Rezdiffra. -A1C and lipids are normal. 2) GERD: s/p RNY gastric bypass 12/2022. She has been able to reduce pantoprazole to once daily, but has experienced dyspepsia when she attempted to discontinue. Will continue. 3) Chronic constipation: This has been best managed with combination therapy with Linzess 290 mcg p.o. plus Motregrity 2 g p.o. once daily. Will continue. 4) History of colonoscopy: Last colonoscopy 05/02/24. Repeat recommended 04/2029 for screening. f/u 1 month [email or web address] Not available 12/27/2024 14:41:04 Plan of Treatment Reminders Order Date Submit Date Provider Last Modified By Organization Details Last Modified Time Details Appointments Establish ed Visit 15 min 2024 01:45P M Ernesto Amezcua PA-C Not available Not available Not available OV EST 20 2024 10:00A M Aden Husain, CAMMIE, [employer] SUPERVISOR, GOLF [employer] MECHANIC-C Not available Not available Not available Lab CBC w/ auto diff 2024 025 ISAAC [facility], [address], [address], [place], [address], 12/15/2024 14:37:20 CMP, serum or plasma 05/30/ 2025 05/30/2 025 ISAAC [facility], [address], [address], [place], [address], 12/15/2024 14:37:21 TSH + free T4, serum 2024 025 ISAAC [facility], [address], [address], [place], [address], 12/15/2024 14:37:19 HbA1c (hemoglob in A1c), blood 2024 025 ISAAC [facility], [address], [address], [place], [address], 12/15/2024 14:37:24 lipid panel, serum 2024 025 ISAAC [facility], [address], [address], [place], [address], 12/15/2024 14:37:22 copper, serum or plasma 2024 025 ISAAC [facility], [address], [address], [place], [address], 12/15/2024 14:37:29 selenium, quantitat silvino, blood 2024 025 IASAC [facility], [address], [address], [place], [address], 12/15/2024 14:37:31 zinc, serum or plasma 2024 025 ISAAC [facility], [address], [address], [place], [address], 12/15/2024 14:37:30 iron + TIBC + ferritin, serum 2024 025 ISAAC [facility], [address], [address], [place], [address], 12/15/2024 14:37:18 folate, serum 2024 025 ISAAC [facility], [address], [address], [place], [address], 12/15/2024 14:37:24 vitamin E, serum 2024 025 ISAAC [facility], [address], [address], [place], [address], 12/15/2024 14:37:23 vitamin A (retinol) , serum 2024 025 ISAAC [facility], [address], [address], [place], [address], 12/15/2024 14:37:25 prealbumi n, serum 2024 025 OHATCHEE [facility], [address], [address], [place], [address], 12/15/2024 14:37:30 thiamine, QN, blood 2024 025 OHATCHEE [facility], [address], [address], [place], [address], 12/15/2024 14:37:27 methylmal jareth, QN, serum or plasma 2024 025 ISAAC [facility], [address], [address], [place], [address], 12/15/2024 14:37:28 vitamin D, 25-hydrox y, total, serum 2024 025 ISAAC [facility], [address], [address], [place], [address], 12/15/2024 14:37:26 CMP, serum or plasma 2023 024 [email or web address] 4 [facility] (Registration ), [address], [place], [address], 07/07/2024 10:22:50 CBC [email or web address] (Registration ), [address] [place] [address], [place], [address], 07/07/2024 10:22:50 PT/INR [address] (Registration ), [address] [place] [address], [place], [address], 07/07/2024 10:22:50 liver fibrosis score, calculate d by ELF, serum or plasma [address] (Registration ), [address] [place] [address], [place], [address], 07/07/2024 10:22:50 selenium, quantitat silvino, blood 2023 024 [facility], [address], [address], [place], [address], 07/06/2024 13:36:28 CMP, serum or plasma 2023 024 [email or web address] [facility], [address], [address], [place], [address], 07/06/2024 13:36:30 CBC w/ auto diff 2023 024 [email or web address] [facility], [address], [address], [place], [address], 07/06/2024 13:36:29 HbA1c (hemoglob in A1c), blood 2023 024 [email or web address] [facility], [address], [address], [place], [address], 07/06/2024 13:36:30 TSH + free T4, serum 2023 [facility], [address], [address], [place], [address], 07/06/2024 13:36:30 lipid panel, serum 2023 024 [facility], [address], [address], [place], [address], 07/06/2024 13:36:30 copper, serum or plasma 2023 024 [email or web address] [facility], [address], [address], [place], [address], 07/06/2024 13:36:28 zinc, serum or plasma 2023 024 [email or web address] [facility], [address], [address], [place], [address], 07/06/2024 13:36:28 iron + TIBC + ferritin, serum 2023 024 [email or web address] [facility], [address], [address], [place], [address], 07/06/2024 13:36:28 folate, serum 2023 [email or web address] [facility], [address], [address], [place], [address], 07/06/2024 13:36:29 vitamin E, serum 2023 024 [email or web address] [facility], [address], [address], [place], [address], 07/06/2024 13:36:29 vitamin A (retinol) , serum 2023 [email or web address] [facility], [address], [address], [place], [address], 07/06/2024 13:36:29 prealbumi n, serum 2023 024 [email or web address] [facility], [address], [address], [place], [address], 07/06/2024 13:36:29 thiamine, QN, blood 2023 024 [email or web address] [facility], [address], [address], [place], [address], 07/06/2024 13:36:29 methylmal jareth, QN, serum or plasma 2023 024 [email or web address] [facility], [address], [address], [place], [address], 07/06/2024 13:36:29 vitamin D, 25-hydrox y, total, serum 2023 [email or web address] [facility], [address], [address], [place], [address], 07/06/2024 13:36:30 selenium, quantitat silvino, blood 2023 024 [email or web address] [facility], [address], [address], [place], [address], 03/14/2024 10:57:17 HbA1c (hemoglob in A1c), blood 2023 024 [email or web address] [facility], [address], [address], [place], [address], 03/14/2024 10:57:17 iron + TIBC + ferritin, serum 2023 024 [email or web address] [facility], [address], [address], [place], [address], 03/14/2024 10:57:17 vitamin D, 25-hydrox y, total, serum 2023 [email or web address] [facility], [address], [address], [place], [address], 03/14/2024 10:57:18 vitamin A (retinol) , serum 2023 [email or web address] [facility], [address], [address], [place], [address], 03/14/2024 10:57:18 thiamine, QN, blood 2023 [email or web address] [facility], [address], [address], [place], [address], 03/14/2024 10:57:19 methylmal jareth, QN, serum or plasma 2023 [email or web address] [facility], [address], [address], [place], [address], 03/14/2024 10:57:19 copper, serum or plasma 2023 [email or web address] [facility], [address], [address], [place], [address], 03/14/2024 10:57:16 zinc, serum or plasma 2023 [email or web address] [facility], [address], [address], [place], [address], 03/14/2024 10:57:17 CBC w/ auto diff 2023 [email or web address] [facility], [address], [address], [place], [address], 03/14/2024 10:57:17 CMP, serum or plasma 2023 024 [email or web address] [facility], [address], [address], [place], [address], 03/14/2024 10:57:17 folate, serum 2023 024 [email or web address] [facility], [address], [address], [place], [address], 03/14/2024 10:57:17 vitamin E, serum 2023 024 [email or web address] [facility], [address], [address], [place], [address], 03/14/2024 10:57:18 TSH + free T4, serum 2023 024 [email or web address] [facility], [address], [address], [place], [address], 03/14/2024 10:57:18 prealbumi n, serum 2023 024 [facility], [address], [address], [place], [address], 03/14/2024 10:57:18 lipid panel, serum 2023 024 [email or web address] [facility], [address], [address], [place], [address], 03/14/2024 10:57:19 Referral None recorded. Procedures biopsy, liver (PROC) - CT or US guidance, depending on radiologi st's preferenc e 2024 025 [email or web address] [facility], [address], [place], [address], 12/27/2024 14:50:48 Surgeries None recorded. Imaging None recorded. Medication Orders Motegrity 2 mg tablet 2023 024 [email or web address] [facility], [address], [facility] [address], [place], [place], [id number], 12/08/2024 08:57:40 Patient TargetsNo targets recorded. Patient InstructionsNo instructions recorded. Reason for Referral None Reported. Results Created Date Observation Date Name Description Value Unit Range Abnormal Flag Note LastModifiedBy Organization Detail LastModifiedTime 03/06/2003/07/2024 FE+TI BC+FE R iron bind.cap.(TI BC) 333 ug/dL 250-45 0 normal Not Available [facility] ([facility]) [address] [place], [address], 03/14/2024 18:37:18 03/06/20 24 03/07/2024 FE+TI BC+FE R UIBC 231 ug/dL 118-36 9 normal Not Available [facility] ([facility]) [address] [place], [address], 03/14/2024 18:37:18 03/06/20 24 03/07/2024 FE+TI BC+FE R iron 102 ug/dL 27-139 normal Not Available [facility] ([facility]) [address] [place], [address], 03/14/2024 18:37:18 03/06/20 24 03/07/2024 FE+TI BC+FE R iron saturation 31 % 15-55 normal Not Available [facility] ([facility]) [address] [place], [address], 03/14/2024 18:37:18 03/06/20 24 03/07/2024 FE+TI BC+FE R ferritin 29 NG/mL 15-150 normal Not Available [facility] ([facility]) [address] [place], [address], 03/14/2024 18:37:18 03/06/20 24 03/07/2024 TSH+F REE T4 TSH 1.870 uIU/m L 0.450- 4.500 normal Not Available [facility] ([facility]) [address] [place], [address], 03/14/2024 18:37:18 03/06/2003/07/2024 TSH+F REE T4 T4,free(dire ct) 0.77 NG/dL 0.82-1 .77 below low normal Not Available [facility] ([facility]) [address] [facility], [place], [address], 03/14/2024 18:37:18 03/06/20 24 03/07/2024 CBC WITH DIFFE RENTI AL/PL ATELE T WBC 5.0 x10e3 /uL 3.4-10 .8 normal Not Available [facility] ([facility]) [address] [place], [address], 03/14/2024 18:37:18 03/06/20 24 03/07/2024 CBC WITH DIFFE RENTI AL/PL ATELE T RBC 4.62 x10e6 /uL 3.77-5 .28 normal Not Available [facility] ([facility]) [address] [place], [address], 03/14/2024 18:37:18 03/06/20 24 03/07/2024 CBC WITH DIFFE RENTI AL/PL ATELE T hemoglobin 14.1 g/dL 11.1-1 5.9 normal Not Available [facility] ([facility]) [address] [place], [address], 03/14/2024 18:37:18 03/06/20 24 03/07/2024 CBC WITH DIFFE RENTI AL/PL ATELE T hematocrit 44.3 % 34.0-4 6.6 normal Not Available [facility] ([facility]) [address] [place], [address], 03/14/2024 18:37:18 03/06/20 24 03/07/2024 CBC WITH DIFFE RENTI AL/PL ATELE T MCV 96 fL 79-97 normal Not Available [facility] ([facility]) [address] [place], [address], 03/14/2024 18:37:18 03/06/20 24 03/07/2024 CBC WITH DIFFE RENTI AL/PL ATELE T MCH 30.5 pg 26.6-3 3.0 normal Not Available [facility] ([facility]) [address] [facility], [place], [address], 03/14/2024 18:37:18 03/06/20 24 03/07/2024 CBC WITH DIFFE RENTI AL/PL ATELE T MCHC 31.8 g/dL 31.5-3 5.7 normal Not Available [facility] ([facility]) [address] [facility], [place], [address], 03/14/2024 18:37:18 03/06/20 24 03/07/2024 CBC WITH DIFFE RENTI AL/PL ATELE T RDW 12.4 % 11.7-1 5.4 Not Available [facility] ([facility]) [address] [place], [address], 03/14/2024 18:37:18 03/06/20 24 03/07/2024 CBC WITH DIFFE RENTI AL/PL ATELE T platelets 232 x10e3 /uL 150-45 0 normal Not Available [facility] ([facility]) [address] [place], [address], 03/14/2024 18:37:18 03/06/20 24 03/07/2024 CBC WITH DIFFE RENTI AL/PL ATELE T neutrophils 53 % not estab. normal Not Available [facility] ([facility]) [address] [facility], [place], [address], 03/14/2024 18:37:18 03/06/20 24 03/07/2024 CBC WITH DIFFE RENTI AL/PL ATELE T lymphs 29 % not estab. normal Not Available [facility] ([facility]) [address] [facility], [place], [address], 03/14/2024 18:37:18 03/06/20 24 03/07/2024 CBC WITH DIFFE RENTI AL/PL ATELE T monocytes 12 % not estab. normal Not Available [facility] ([facility]) [address] [facility], [place], [address], 03/14/2024 18:37:18 03/06/20 24 03/07/2024 CBC WITH DIFFE RENTI AL/PL ATELE T eos 5 % not estab. normal Not Available [facility] ([facility]) [address] [facility], [place], [address], 03/14/2024 18:37:18 03/06/20 24 03/07/2024 CBC WITH DIFFE RENTI AL/PL ATELE T basos 1 % not estab. normal Not Available [facility] ([facility]) [address] [facility], [place], [address], 03/14/2024 18:37:18 03/06/20 24 03/07/2024 CBC WITH DIFFE RENTI AL/PL ATELE T immature cells [employer] MECHANIC Not Available [facility] ([facility]) [address] [facility], [place], [address], 03/14/2024 18:37:18 03/06/20 24 03/07/2024 CBC WITH DIFFE RENTI AL/PL ATELE T neutrophils (absolute) 2.6 x10e3 /uL 1.4-7. 0 normal Not Available [facility] ([facility]) [address] [place], [address], 03/14/2024 18:37:18 03/06/20 24 03/07/2024 CBC WITH DIFFE RENTI AL/PL ATELE T lymphs (absolute) 1.5 x10e3 /uL 0.7-3. 1 normal Not Available [facility] ([facility]) [address] [facility], [place], [address], 03/14/2024 18:37:18 03/06/20 24 03/07/2024 CBC WITH DIFFE RENTI AL/PL ATELE T monocytes(ab solute) 0.6 x10e3 /uL 0.1-0. 9 normal Not Available [facility] ([facility]) [address] [facility], [place], [address], 03/14/2024 18:37:18 03/06/20 24 03/07/2024 CBC WITH DIFFE RENTI AL/PL ATELE T eos (absolute) 0.3 x10e3 /uL 0.0-0. 4 normal Not Available [facility] ([facility]) [address] [facility], [place], [address], 03/14/2024 18:37:18 03/06/20 24 03/07/2024 CBC WITH DIFFE RENTI AL/PL ATELE T baso (absolute) 0.1 x10e3 /uL 0.0-0. 2 normal Not Available [facility] ([facility]) [address] [facility], [place], [address], 03/14/2024 18:37:18 03/06/20 24 03/07/2024 CBC WITH DIFFE RENTI AL/PL ATELE T immature granulocytes 0 % not estab. Not Available [facility] ([facility]) [address] [facility], [place], [address], 03/14/2024 18:37:18 03/06/20 24 03/07/2024 CBC WITH DIFFE RENTI AL/PL ATELE T immature grans (abs) 0.0 x10e3 /uL 0.0-0. 1 Not Available [facility] ([facility]) [address] [facility], [place], [address], 03/14/2024 18:37:18 03/06/20 24 03/07/2024 CBC WITH DIFFE RENTI AL/PL ATELE T NRBC [employer]OL[employer] MECHANIC Not Available [facility] ([facility]) [address] [facility], [place], [address], 03/14/2024 18:37:18 03/06/20 24 03/07/2024 CBC WITH DIFFE MARSHAL AL/PL ATELE T hematology comments: GOLF C[employer] MECHANIC Not Available [facility] ([facility]) [address] [facility], [place], [address], 03/14/2024 18:37:18 03/06/20 24 03/07/2024 COMP. METAB OLIC PANEL (14) glucose 93 mg/dL 70-99 normal Not Available [facility] ([facility]) [address] [facility], [place], [address], 03/14/2024 18:37:19 03/06/20 24 03/07/2024 COMP. METAB OLIC PANEL (14) BUN 32 mg/dL 8-27 above high normal Not Available [facility] ([facility]) [address] [facility], [place], [address], 03/14/2024 18:37:19 03/06/20 24 03/07/2024 COMP. METAB OLIC PANEL (14) creatinine 0.91 mg/dL 0.57-1 .00 normal Not Available [facility] ([facility]) [address] [place], [address], 03/14/2024 18:37:19 03/06/20 24 03/07/2024 COMP. METAB OLIC PANEL (14) eGFR 70 mL/mi n/1.7 3 >59 normal Not Available [facility] ([facility]) [address] [facility], [address], 03/14/2024 18:37:19 03/06/20 24 03/07/2024 COMP. METAB OLIC PANEL (14) BUN/creatini ne ratio 35 12-28 above high normal Not Available [facility] ([facility]) [address] [place], [address], 03/14/2024 18:37:19 03/06/20 24 03/07/2024 COMP. METAB OLIC PANEL (14) sodium 138 mmol/ L 134-14 4 normal Not Available [facility] ([facility]) [address] [facility] [place], [address], 03/14/2024 18:37:19 03/06/20 24 03/07/2024 COMP. METAB OLIC PANEL (14) potassium 4.2 mmol/ L 3.5-5. 2 normal Not Available [facility] ([facility]) [address] [facility] [place], [address], 03/14/2024 18:37:19 03/06/20 24 03/07/2024 COMP. METAB OLIC PANEL (14) chloride 101 mmol/ L 96-106 normal Not Available [facility] ([facility]) [address] [facility], [address], 03/14/2024 18:37:19 03/06/20 24 03/07/2024 COMP. METAB OLIC PANEL (14) carbon dioxide, total 24 mmol/ L 20-29 normal Not Available [facility] ([facility]) [address] [facility], [address], 03/14/2024 18:37:19 03/06/20 24 03/07/2024 COMP. METAB OLIC PANEL (14) calcium 9.4 mg/dL 8.7-10 .3 normal Not Available [facility] ([facility]) [address] [facility], [address], 03/14/2024 18:37:19 03/06/20 24 03/07/2024 COMP. METAB OLIC PANEL (14) protein, total 6.3 g/dL 6.0-8. 5 normal Not Available [facility] ([facility]) [address] [facility], [address], 03/14/2024 18:37:19 03/06/20 24 03/07/2024 COMP. METAB OLIC PANEL (14) albumin 4.1 g/dL 3.9-4. 9 normal Not Available [facility] ([facility]) [address] [place], [address], 03/14/2024 18:37:19 03/06/20 24 03/07/2024 COMP. METAB OLIC PANEL (14) globulin, total 2.2 g/dL 1.5-4. 5 Not Available [facility] ([facility]) [address] [place], [address], 03/14/2024 18:37:19 03/06/20 24 03/07/2024 COMP. METAB OLIC PANEL (14) bilirubin, total 0.3 mg/dL 0.0-1. 2 normal Not Available [facility] ([facility]) [address] [facility] [place], [address], 03/14/2024 18:37:19 03/06/20 24 03/07/2024 COMP. METAB OLIC PANEL (14) alkaline phosphatase 80 IU/L 44-121 normal Not Available [facility] ([facility]) [address] [facility], [address], 03/14/2024 18:37:19 03/06/20 24 03/07/2024 COMP. METAB OLIC PANEL (14) AST (SGOT) 47 IU/L 0-40 above high normal Not Available [facility] ([facility]) [address] [facility], [address], 03/14/2024 18:37:19 03/06/20 24 03/07/2024 COMP. METAB OLIC PANEL (14) ALT (SGPT) 58 IU/L 0-32 above high normal Not Available [facility] ([facility]) [address] [facility], [address], 03/14/2024 18:37:19 03/06/20 24 03/07/2024 LIPID PANEL cholesterol, total 119 mg/dL 100-19 9 normal Not Available [facility] ([facility]) [address] [place], [address], 03/14/2024 18:37:19 03/06/20 24 03/07/2024 LIPID PANEL triglyceride s 75 mg/dL 0-149 normal Not Available [facility] ([facility]) [address] [place], [address], 03/14/2024 18:37:19 03/06/20 24 03/07/2024 LIPID PANEL HDL cholesterol 51 mg/dL >39 normal Not Available [facility] ([facility]) [address] [place], [address], 03/14/2024 18:37:19 03/06/20 24 03/07/2024 LIPID PANEL VLDL cholesterol apurva 15 mg/dL 5-40 Not Available [facility] ([facility]) [address] [place], [address], 03/14/2024 18:37:19 03/06/20 24 03/07/2024 LIPID PANEL LDL chol calc ([facility]) 53 mg/dL 0-99 Not Available [facility] ([facility]) [address] [place], [address], 03/14/2024 18:37:19 03/06/20 24 03/07/2024 LIPID PANEL LDL calc comment: GOLF [employer] MECHANIC Not Available [facility] ([facility]) [address] [place], [address], 03/14/2024 18:37:19 03/06/2003/14/2024 VITAM IN E vitamin E(alpha tocopherol) 12.2 mg/L 9.0-29 .0 Not Available [facility] ([facility]) [address] [place], [address], 03/14/2024 18:37:20 03/06/2003/14/2024 VITAM IN E vitamin E(gamma tocopherol) 0.8 mg/L 0.5-4. 9 Refer ence inter vals for alpha and gamma -toco phero l deter mined from [facility] Nutri tion Exami natio n Surve y, 2004- 2005. Indiv idual s with alpha -toco phero l level s less than 5.0 mg/L are consi dered vitam in E defic ient. Not Available [facility] ([facility]) [address] [facility], [place], [address], 03/14/2024 18:37:20 03/06/2003/07/2024 HEMOG LOBIN A1C hemoglobin A1C 5.4 % 4.8-5. 6 normal Predi abete s: 5.7 - 6.4 Diabe inessa: >6.4 Glyce amauri contr ol for adult s with diabe inessa: <7.0 Not Available [facility] ([facility]) [address] [facility], [place], [address], 03/14/2024 18:37:20 03/06/2003/07/2024 FOLAT E (FOLI C ACID) , SERUM folate (folic acid), serum >20.0 NG/mL >3.0 A serum folat e aynet ntrat ion of less than 3.1 ng/mL is consi dered to repre sent clini apurva defic iency . Not Available [facility] ([facility]) [address] [facility], [place], [address], 03/14/2024 18:37:21 03/06/2003/14/2024 VITAM IN A, SERUM vitamin A 52.6 [...] Drug Admin istra tion. Not Available [facility] ([facility]) [address] [facility], [place], [address], 03/14/2024 18:37:21 03/06/20 24 03/07/2024 VITAM IN [...] Endoc rine Socie ty went on to furth er defin e vitam in D insuf ficie ncy as a level betwe en 21 and 29 ng/mL (2). 1. IOM (Inst itute of Medic ine). 2010. Dieta ry refer ence intak es for calci um and D. Joanna roque [place]: [facility] . 2. Junie lugo [place], Garrick wallace [place], Valeria off-F errar i TURCIOS, et al. Evalu ation , treat ment, and preve ntion of vitam in D defic iency : an Endoc rine Socie ty clini apurva pract ice guide line. JCEM. 2010; 96(7) :1911 -30. Not Available [facility] ([facility]) [address], [place], [address], 03/14/2024 18:37:21 03/06/2003/12/2024 VITAM IN B1 (THIA MINE) , BLOOD vit. B1, whole blood 290.9 nmol/ L 66.5-2 00.0 above high normal Not Available [facility] ([facility]) [address], [place], [address], 03/14/2024 18:37:22 08/26/20 24 03/12/2024 METHY LMALO ALICIA ACID, SERUM methylmaloni c acid, serum 360 nmol/ L 0-378 Not Available [facility] ([facility]) [address] [facility], [place], [address], 03/14/2024 18:37:22 03/06/20 24 03/08/2024 COPPE R, SERUM OR PLASM A copper, serum or plasma 117 ug/dL 80-158 Detec tion Limit = 5 Not Available [facility] ([facility]) [address] [place], [address], 03/14/2024 18:37:23 03/06/20 24 03/08/2024 ZINC, PLASM A OR SERUM zinc, plasma or serum 87 ug/dL 44-115 normal Detec tion Limit = 5 Not Available [facility] ([facility]) [address] [facility], [place], [address], 03/14/2024 18:37:23 03/06/20 24 03/07/2024 PREAL BUMIN prealbumin 20 mg/dL 10-36 Not Available [facility] ([facility]) [address] [facility], [place], [address], 03/14/2024 18:37:23 03/06/20 24 03/08/2024 SELEN IUM, BLOOD selenium, blood 168 ug/L 100-34 0 Detec tion Limit = 10 Not Available [facility] ([facility]) [address] [place], [address], 03/14/2024 18:37:24 07/15/19 25 07/15/2024 CBC NO DIFF (HEMO GRAM) WBC 5.9 K/uL 4.0-10 .5 Not Available [facility] ([facility]) [address] , [place], [address], 07/15/2024 09:51:52 07/15/19 25 07/15/2024 CBC NO DIFF (HEMO GRAM) RBC 5.0 M/mm3 4.2-6. 4 Not Available [facility] ([facility]) [address] , [place], [address], 07/15/2024 09:51:52 07/15/19 25 07/15/2024 CBC NO DIFF (HEMO GRAM) HGB 14.8 gm/dL 12.5-1 6.0 Not Available [facility] ([facility]) [address] , [place], [address], 07/15/2024 09:51:52 07/15/19 25 07/15/2024 CBC NO DIFF (HEMO GRAM) HCT 44.8 % 37.0-4 7.0 Not Available [facility] ([facility]) [address] , [place], [address], 07/15/2024 09:51:52 07/15/19 25 07/15/2024 CBC NO DIFF (HEMO GRAM) MCV 89.4 fL 78-100 Not Available [facility] ([facility]) [address], [place], [address], 07/15/2024 09:51:52 07/15/19 25 07/15/2024 CBC NO DIFF (HEMO GRAM) MCH 29.5 pg 27-31 Not Available [facility] ([facility]) [address] , [place], [address], 07/15/2024 09:51:52 07/15/19 25 07/15/2024 CBC NO DIFF (HEMO GRAM) MCHC 33.0 g/dL 32-36 Not Available [facility] ([facility]) [address] [place], [address], 07/15/2024 09:51:52 07/15/19 25 07/15/2024 CBC NO DIFF (HEMO GRAM) RDW 14.9 % 11.5-1 4.0 high Not Available [facility] ([facility]) [address] , [place], [address], 07/15/2024 09:51:52 07/15/19 25 07/15/2024 CBC NO DIFF (HEMO GRAM) platelet count 233 K/uL 150-45 0 Not Available [facility] ([facility]) [address] , [place], [address], 07/15/2024 09:51:52 07/15/19 25 07/15/2024 CBC NO DIFF (HEMO GRAM) MPV 8.9 fL 6-9.5 Not Available [facility] ([facility]) [address] , [place], [address], 07/15/2024 09:51:52 07/15/19 25 07/15/2024 CBC NO DIFF (HEMO GRAM) manual differential NO Not Available [facility] ([facility]) [address] , [place], [address], 07/15/2024 09:51:52 07/15/19 25 07/15/2024 PT (PROT HROMB IN TIME) W INR prothrombin time 10.4 secon ds 9.3-11 .4 Not Available [facility] ([facility]) [address] , [place], [address], 07/15/2024 10:13:39 07/15/19 25 07/15/2024 PT (PROT [...] Mecha nical Heart Valve s Not Available [facility] ([facility]) [address], [place], [address], 07/15/2024 10:13:39 07/15/19 25 07/15/2024 COMP METAB OLIC PANEL sodium 136 mmol/ L 136-14 5 Not Available [facility] ([facility]) [address], [place], [address], 07/15/2024 10:18:53 07/15/19 25 07/15/2024 COMP METAB OLIC PANEL potassium 4.6 mmol/ L 3.6-5. 0 Not Available [facility] ([facility]) [address], [place], [address], 07/15/2024 10:18:53 07/15/19 25 07/15/2024 COMP METAB OLIC PANEL chloride 101 mmol/ L 98-107 Not Available [facility] ([facility]) [address] , [place], [address], 07/15/2024 10:18:53 07/15/19 25 07/15/2024 COMP METAB OLIC PANEL carbon dioxide 29.4 mmol/ L 21.0-3 2.0 Not Available [facility] ([facility]) [address] , [place], [address], 07/15/2024 10:18:53 07/15/19 25 07/15/2024 COMP METAB OLIC PANEL anion gap 10.2 Not Available [facility] ([facility]) [address] , [place], [address], 07/15/2024 10:18:53 07/15/19 25 07/15/2024 COMP METAB OLIC PANEL glucose 98 mg/dL 70-120 Not Available [facility] ([facility]) [address] , [place], [address], 07/15/2024 10:18:53 07/15/19 25 07/15/2024 COMP METAB OLIC PANEL BUN 31 mg/dL 7-18 high Not Available [facility] ([facility]) [address] , [place], [address], 07/15/2024 10:18:53 07/15/19 25 07/15/2024 COMP METAB OLIC PANEL creatinine 0.9 mg/dL 0.6-1. 3 Not Available [facility] ([facility]) [address] , [place], [address], 07/15/2024 10:18:53 07/15/19 25 07/15/2024 COMP METAB [...] romero ing kiney funct ion. Not Available [facility] ([facility]) [address] , [place], [address], 07/15/2024 10:18:53 07/15/19 25 07/15/2024 COMP METAB OLIC PANEL total protein 7.4 g/dL 6.4-8. 2 Not Available [facility] ([facility]) [address] , [place], [address], 07/15/2024 10:18:53 07/15/19 25 07/15/2024 COMP METAB OLIC PANEL albumin 3.9 g/dL 3.4-5. 0 Not Available [facility] ([facility]) [address] , [place], [address], 07/15/2024 10:18:53 07/15/19 25 07/15/2024 COMP METAB OLIC PANEL globulin 3.5 Not Available [facility] ([facility]) [address] , [place], [address], 07/15/2024 10:18:53 07/15/19 25 07/15/2024 COMP METAB OLIC PANEL alb/glob ratio 1.1 0.7-2 Not Available [facility] ([facility]) [address], [place], [address], 07/15/2024 10:18:53 07/15/19 25 07/15/2024 COMP METAB OLIC PANEL calcium 9.4 mg/dL 8.5-10 .5 Not Available [facility] ([facility]) [address], [place], [address], 07/15/2024 10:18:53 07/15/19 25 07/15/2024 COMP METAB OLIC PANEL bilirubin total 0.60 mg/dL 0.10-1 .00 Not Available [facility] ([facility]) [address], [place], [address], 07/15/2024 10:18:53 07/15/19 25 07/15/2024 COMP METAB OLIC PANEL AST (SGOT) 38 U/L 0-37 high Not Available [facility] ([facility]) [address], [place], [address], 07/15/2024 10:18:53 07/15/19 25 07/15/2024 COMP METAB OLIC PANEL ALT (SGPT) 66 U/L 0-65 high Not Available [facility] ([facility]) [address], [place], [address], 07/15/2024 10:18:53 07/15/19 25 07/15/2024 COMP METAB OLIC PANEL alk phosphatase 83 U/L 46-116 Not Available [facility] ([facility]) [address], [place], [address], 07/15/2024 10:18:53 07/15/19 25 07/18/2024 CISNEROS FIBRO SURE PLUS alpha 2-macroglobu oralia, qn 266 mg/dL 110-27 6 Not Available [facility] ([facility]) [address] [place], [address], 07/18/2024 06:10:53 07/15/19 25 07/18/2024 CISNEROS FIBRO SURE PLUS haptoglobin 88 mg/dL 37-355 Not Available [facility] ([facility]) [address] [place], [address], 07/18/2024 06:10:53 07/15/19 25 07/18/2024 CISNEROS FIBRO SURE PLUS apolipoprote in A-1 167 mg/dL 116-20 9 Not Available [facility] ([facility]) [address] [facility], [place], [address], 07/18/2024 06:10:53 07/15/19 25 07/18/2024 CISNEROS FIBRO SURE PLUS bilirubin, total 0.4 mg/dL 0.0-1. 2 Not Available [facility] ([facility]) [address] [place], [address], 07/18/2024 06:10:53 07/15/19 25 07/18/2024 CISNEROS FIBRO SURE PLUS GGT 32 IU/L 0-60 Not Available [facility] ([facility]) [address] [place], [address], 07/18/2024 06:10:53 07/15/19 25 07/18/2024 CISNEROS FIBRO SURE PLUS ALT (SGPT) p5p 63 IU/L 0-40 high Not Available [facility] ([facility]) [address] [place], [address], 07/18/2024 06:10:53 07/15/19 25 07/18/2024 CISNEROS FIBRO SURE PLUS AST (SGOT) p5p 42 IU/L 0-40 high Not Available [facility] ([facility]) [address] [place], [address], 07/18/2024 06:10:53 07/15/19 25 07/18/2024 CISNEROS FIBRO SURE PLUS cholesterol, total 122 mg/dL 100-19 9 Not Available [facility] ([facility]) [address] , [place], [address], 07/18/2024 06:10:53 07/15/19 25 07/18/2024 CISNEROS FIBRO SURE PLUS glucose, serum 102 mg/dL 70-99 high Not Available [facility] ([facility]) [address] , [place], [address], 07/18/2024 06:10:53 07/15/1907/18/2024 CISNEROS FIBRO SURE PLUS triglyceride s 99 mg/dL 0-149 Not Available [facility] ([facility]) [address] , [place], [address], 07/18/2024 06:10:53 07/15/19 25 07/18/2024 CISNEROS FIBRO [...] Stage F4 - Cirrh osis Not Available [facility] ([facility]) [address] , [place], [address], 07/18/2024 06:10:53 07/15/1907/18/2024 CISNEROS FIBRO SURE PLUS fibrosis stage F1-F2 Not Available [facility] ([facility]) [address] , [place], [address], 07/18/2024 06:10:53 07/15/19 25 07/18/2024 CISNEROS FIBRO SURE PLUS fibrosis score 0.34 0.00-0 .21 high Not Available [facility] ([facility]) [address] [place], [address], 07/18/2024 06:10:53 07/15/19 25 07/18/2024 CISNEROS FIBRO SURE PLUS steatosis score 0.48 0.00-0 .40 high Not Available [facility] ([facility]) [address] [place], [address], 07/18/2024 06:10:53 07/15/1907/18/2024 CISNEROS FIBRO SURE PLUS steatosis grade Commen t S1 - Mild Steat osis (But Clini zuleyka Signi fican t) (5- 33%) Not Available [facility] ([facility]) [address] [place], [address], 07/18/2024 06:10:53 07/15/19 25 07/18/2024 CISNEROS FIBRO SURE PLUS steatosis scoring Commen t . <=0.4 0 = S0 - No Steat osis (<5%) 0.40 - 0.55 = S1 - Mild Steat osis (but Clini zuleyka Signi fican t) (5-33 %) >0.55 = S2S3- Moder ate to Sever e Steat osis (Clin icall y Signi fican t) (34-1 00%) Not Available [facility] ([facility]) [address] [place], [address], 07/18/2024 06:10:53 07/15/1907/18/2024 CISNEROS FIBRO SURE PLUS cisneros scoring Commen t . <=0.2 5 = N0 - No CISNEROS/ MASH 0.25 - 0.50 = N1 - Mild CISNEROS/ MASH 0.50 - 0.75 = N2 - Moder ate CISNEROS/ MASH >0.75 = N3 - Sever e CISNEROS/ MASH Not Available [facility] ([facility]) [address] [place], [address], 07/18/2024 06:10:53 07/15/19 25 07/18/2024 CISNEROS FIBRO SURE PLUS cisneros grade Commvince t N3 - Sever e CISNEROS Not Available [facility] ([facility]) [address], [place], [address], 07/18/2024 06:10:53 07/15/19 25 07/18/2024 CISNEROS FIBRO SURE PLUS cisneros score 0.79 0.00-0 .25 high Not Available [facility] ([facility]) [address], [place], [address], 07/18/2024 06:10:53 07/15/1907/18/2024 CISNEROS FIBRO SURE PLUS limitations Commvince t . CISNEROS Fibro Sure( R) Plus [...] ction s of fibro sis. Not Available [facility] ([facility]) [address], [place], [address], 07/18/2024 06:10:53 07/15/19 25 07/18/2024 CISNEROS FIBRO SURE PLUS methodology: Wanda Grossman The sachi inessa teste d are perfo rmed by Fibro Sure- Speci fic metho ds. Not inten ded for use with other diagn ostic consi derat ions. Not Available [facility] ([facility]) [address], [place], [address], 07/18/2024 06:10:53 07/15/19 25 07/18/2024 CISNEROS FIBRO SURE PLUS interpretati on: Commen t . Quant itati ve resul ts of 10 bioch emica ls in combi natio n with age and gende r, are sachi zed using a compu tatio nal algor ithm to provi de a quant itati ve surro gate marke r (0.0- 1.0) of liver fibro sis ([place] vir F0-F4 ), hepat ic steat osis [...] fican t NAFLD /MASL D fibro sis ([place] vir F2-F4 ) and 11% had cirrh [...] fican t steat osis. 2 CISNEROS/ MASH marke r: In a popul ation of 1081 NAFLD /MASL D patie nts, where 51% had at least some CISNEROS/ MASH by liver biops y, a predi ction of CISNEROS/ MASH had a sensi tivit y of 72% for ident ifyin g CISNEROS/ MASH and a speci ficit y of 71%. 3 Not Available [facility] ([facility]) [address], [place], [address], 07/18/2024 06:10:53 07/15/19 25 07/18/2024 CISNEROS FIBRO SURE PLUS comment: Wanda t . This test was devel oped and its perfo rmanc e ayesha cteri stics deter mined by [facility]. It has not been clear ed or appro viki by the Food and Drug Admin istra tion. . For quest ions regar ding this repor t pleas e conta ct custo lester servi ce at 8-241 [phone]. . Refer ences : . 1. Vito mendoza V. et al. Diagn ostic Value of Bioch emica l Marke rs (Fibr oTest ) for the predi ction of Liver Fibro sis in patie nts with Non-A lcoho lic Fatty Liver Disea se. [facility] Gastr oente rolog y 2006 ; 6:6. 2. Selwyn Martino. et al. The Diagn ostic Perfo rmanc e of a Simpl i fied Blood Test (Stea toTes t-2) for the Predi ction of Liver Steat o sis. Eur J Gastr oente rol Hepat ol. 2019; 31:39 3-402 . 3. Selwyn Martino. et al. Diagn ostic perfo rmanc e of a new nonin v asive test for nonal cohol ic steat ohepa titis using a simpl ified his tolog ical refer ence. Eur J Gastr oente rol Hepat ol. 2018 November; 30:56 9-577 . Perfo rmed at: - [facility] [address] [place] [address] Lab Direc tor: Massiel ross MD, Phone : [phone] Not Available [facility] ([facility]) [address], [place], [address], 07/18/2024 06:10:53 12/09/1912/09/2024 FE+TI BC+FE R iron bind.cap.(TI BC) 336 ug/dL 250-45 0 normal Not Available [facility] ([facility]) [address] [place], [address], 12/15/2024 14:37:18 12/09/19 25 12/09/2024 FE+TI BC+FE R UIBC 214 ug/dL 118-36 9 normal Not Available [facility] ([facility]) [address] [place], [address], 12/15/2024 14:37:18 12/09/1912/09/2024 FE+TI BC+FE R iron 122 ug/dL 27-139 normal Not Available [facility] ([facility]) [address] [place], [address], 12/15/2024 14:37:18 12/09/19 25 12/09/2024 FE+TI BC+FE R iron saturation 36 % 15-55 normal Not Available [facility] ([facility]) [address] [place], [address], 12/15/2024 14:37:18 12/09/19 25 12/09/2024 FE+TI BC+FE R ferritin 31 NG/mL 15-150 normal Not Available [facility] ([facility]) [address] [place], [address], 12/15/2024 14:37:18 12/09/1912/09/2024 TSH+F REE T4 TSH 2.100 uIU/m L 0.450- 4.500 normal Not Available [facility] ([facility]) [address] [place], [address], 12/15/2024 14:37:19 12/09/19 25 12/09/2024 TSH+F REE T4 T4,free(dire ct) 0.83 NG/dL 0.82-1 .77 normal Not Available [facility] ([facility]) [address] [place], [address], 12/15/2024 14:37:19 12/09/19 25 12/08/2024 CBC WITH DIFFE RENTI AL/PL ATELE T WBC 6.1 x10e3 /uL 3.4-10 .8 normal Not Available [facility] ([facility]) [address] [place], [address], 12/15/2024 14:37:20 12/09/19 25 12/08/2024 CBC WITH DIFFE RENTI AL/PL ATELE T RBC 4.92 x10e6 /uL 3.77-5 .28 normal Not Available [facility] ([facility]) [address] [place], [address], 12/15/2024 14:37:20 12/09/19 25 12/08/2024 CBC WITH DIFFE RENTI AL/PL ATELE T hemoglobin 14.9 g/dL 11.1-1 5.9 normal Not Available [facility] ([facility]) [address] [place], [address], 12/15/2024 14:37:20 12/09/19 25 12/08/2024 CBC WITH DIFFE RENTI AL/PL ATELE T hematocrit 45.6 % 34.0-4 6.6 normal Not Available [facility] ([facility]) [address] [place], [address], 12/15/2024 14:37:20 12/09/19 25 12/08/2024 CBC WITH DIFFE RENTI AL/PL ATELE T MCV 93 fL 79-97 normal Not Available [facility] ([facility]) [address] [place], [address], 12/15/2024 14:37:20 12/09/19 25 12/08/2024 CBC WITH DIFFE RENTI AL/PL ATELE T MCH 30.3 pg 26.6-3 3.0 normal Not Available [facility] ([facility]) [address] [facility], [place], [address], 12/15/2024 14:37:20 12/09/19 25 12/08/2024 CBC WITH DIFFE RENTI AL/PL ATELE T MCHC 32.7 g/dL 31.5-3 5.7 normal Not Available [facility] ([facility]) [address] [facility], [place], [address], 12/15/2024 14:37:20 12/09/19 25 12/08/2024 CBC WITH DIFFE RENTI AL/PL ATELE T RDW 12.5 % 11.7-1 5.4 Not Available [facility] ([facility]) [address] [facility], [place], [address], 12/15/2024 14:37:20 12/09/19 25 12/08/2024 CBC WITH DIFFE RENTI AL/PL ATELE T platelets 234 x10e3 /uL 150-45 0 normal Not Available [facility] ([facility]) [address] [facility], [place], [address], 12/15/2024 14:37:20 12/09/19 25 12/08/2024 CBC WITH DIFFE RENTI AL/PL ATELE T neutrophils 56 % not estab. normal Not Available [facility] ([facility]) [address] [facility], [place], [address], 12/15/2024 14:37:20 12/09/19 25 12/08/2024 CBC WITH DIFFE RENTI AL/PL ATELE T lymphs 28 % not estab. normal Not Available [facility] ([facility]) [address] [facility], [place], [address], 12/15/2024 14:37:20 12/09/19 25 12/08/2024 CBC WITH DIFFE RENTI AL/PL ATELE T monocytes 10 % not estab. normal Not Available [facility] ([facility]) [address] [facility], [place], [address], 12/15/2024 14:37:20 12/09/19 25 12/08/2024 CBC WITH DIFFE RENTI AL/PL ATELE T eos 5 % not estab. normal Not Available [facility] ([facility]) [address] [facility], [place], [address], 12/15/2024 14:37:20 12/09/19 25 12/08/2024 CBC WITH DIFFE RENTI AL/PL ATELE T basos 1 % not estab. 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 0 normal Not Available [facility] ([facility]) [address] [place], [address], 12/15/2024 14:37:20 12/09/19 25 12/08/2024 CBC WITH DIFFE RENTI AL/PL ATELE T lymphs (absolute) 1.7 x10e3 /uL 0.7-3. 1 normal Not Available [facility] ([facility]) [address] [place], [address], 12/15/2024 14:37:20 12/09/19 25 12/08/2024 CBC WITH DIFFE RENTI AL/PL ATELE T monocytes(ab solute) 0.6 x10e3 /uL 0.1-0. 9 normal Not Available [facility] ([facility]) [address] [facility], [place], [address], 12/15/2024 14:37:20 12/09/19 25 12/08/2024 CBC WITH DIFFE RENTI AL/PL ATELE T eos (absolute) 0.3 x10e3 /uL 0.0-0. 4 normal Not Available [facility] ([facility]) [address] [facility], [place], [address], 12/15/2024 14:37:20 12/09/19 25 12/08/2024 CBC WITH DIFFE RENTI AL/PL ATELE T baso (absolute) 0.1 x10e3 /uL 0.0-0. 2 normal Not Available [facility] ([facility]) [address] [facility], [place], [address], 12/15/2024 14:37:20 12/09/19 25 12/08/2024 CBC WITH DIFFE RENTI AL/PL ATELE T immature granulocytes 0 % not estab. Not Available [facility] ([facility]) [address] [facility], [place], [address], 12/15/2024 14:37:20 12/09/19 25 12/08/2024 CBC WITH DIFFE RENTI AL/PL ATELE T immature grans (abs) 0.0 x10e3 /uL 0.0-0. 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 METAB OLIC PANEL (14) glucose 91 mg/dL 70-99 normal Not Available [facility] ([facility]) [address] [facility] [place], [address], 12/15/2024 14:37:21 12/09/19 25 12/09/2024 COMP. METAB OLIC PANEL (14) BUN 33 mg/dL 8-27 above high normal Not Available [facility] ([facility]) [address] [facility] [place], [address], 12/15/2024 14:37:21 12/09/19 25 12/09/2024 COMP. METAB OLIC PANEL (14) creatinine 0.86 mg/dL 0.57-1 .00 normal Not Available [facility] ([facility]) [address] [place], [address], 12/15/2024 14:37:21 12/09/19 25 12/09/2024 COMP. METAB OLIC PANEL (14) eGFR 74 mL/mi n/1.7 3 >59 normal Not Available [facility] ([facility]) [address] [place], [address], 12/15/2024 14:37:21 12/09/19 25 12/09/2024 COMP. METAB OLIC PANEL (14) BUN/creatini ne ratio 38 12-28 above high normal Not Available [facility] ([facility]) [address] [place], [address], 12/15/2024 14:37:21 12/09/19 25 12/09/2024 COMP. METAB OLIC PANEL (14) sodium 139 mmol/ L 134-14 4 normal Not Available [facility] ([facility]) [address] [place], [address], 12/15/2024 14:37:21 12/09/19 25 12/09/2024 COMP. METAB OLIC PANEL (14) potassium 4.4 mmol/ L 3.5-5. 2 normal Not Available [facility] ([facility]) [address] [facility], [place], [address], 12/15/2024 14:37:21 12/09/19 25 12/09/2024 COMP. METAB OLIC PANEL (14) chloride 104 mmol/ L 96-106 normal Not Available [facility] ([facility]) [address] [facility], [place], [address], 12/15/2024 14:37:21 12/09/19 25 12/09/2024 COMP. METAB OLIC PANEL (14) carbon dioxide, total 21 mmol/ L 20-29 normal Not Available [facility] ([facility]) [address] [place], [address], 12/15/2024 14:37:21 12/09/19 25 12/09/2024 COMP. METAB OLIC PANEL (14) calcium 9.4 mg/dL 8.7-10 .3 normal Not Available [facility] ([facility]) [address] [place] [place], [address], 12/15/2024 14:37:21 12/09/19 25 12/09/2024 COMP. METAB OLIC PANEL (14) protein, total 6.5 g/dL 6.0-8. 5 normal Not Available [facility] ([facility]) [address] [place], [address], 12/15/2024 14:37:21 12/09/19 25 12/09/2024 COMP. METAB OLIC PANEL (14) albumin 4.2 g/dL 3.9-4. 9 normal Not Available [facility] ([facility]) [address] [facility], [place], [address], 12/15/2024 14:37:21 12/09/19 25 12/09/2024 COMP. METAB OLIC PANEL (14) globulin, total 2.3 g/dL 1.5-4. 5 Not Available [facility] ([facility]) [address] [facility] [place], [address], 12/15/2024 14:37:21 12/09/19 25 12/09/2024 COMP. METAB OLIC PANEL (14) bilirubin, total 0.4 mg/dL 0.0-1. 2 normal Not Available [facility] ([facility]) [address] [facility], [place], [address], 12/15/2024 14:37:21 12/09/19 25 12/09/2024 COMP. METAB OLIC PANEL (14) alkaline phosphatase 87 IU/L 44-121 normal Not Available [facility] ([facility]) [address] [facility], [place], [address], 12/15/2024 14:37:21 12/09/19 25 12/09/2024 COMP. METAB OLIC PANEL (14) AST (SGOT) 62 IU/L 0-40 above high normal Not Available [facility] ([facility]) [address] [place], [address], 12/15/2024 14:37:21 12/09/19 25 12/09/2024 COMP. METAB OLIC PANEL (14) ALT (SGPT) 89 IU/L 0-32 above high normal Not Available [facility] ([facility]) [address] [facility], [place], [address], 12/15/2024 14:37:21 12/09/19 25 12/09/2024 LIPID PANEL cholesterol, total 117 mg/dL 100-19 9 normal Not Available [facility] ([facility]) [address] [facility], [place], [address], 12/15/2024 14:37:22 12/09/19 25 12/09/2024 LIPID PANEL triglyceride s 69 mg/dL 0-149 normal Not Available [facility] ([facility]) [address] [place], [address], 12/15/2024 14:37:22 12/09/19 25 12/09/2024 LIPID PANEL HDL cholesterol 59 mg/dL >39 normal Not Available [facility] ([facility]) [address] [place], [address], 12/15/2024 14:37:22 12/09/19 25 12/09/2024 LIPID PANEL VLDL cholesterol apurva 14 mg/dL 5-40 Not Available [facility] ([facility]) [address] [place], [address], 12/15/2024 14:37:22 12/09/19 25 12/09/2024 LIPID PANEL LDL chol calc ([facility]) 44 mg/dL 0-99 Not Available [facility] ([facility]) [address] [place], [address], 12/15/2024 14:37:22 12/09/19 25 12/09/2024 LIPID PANEL 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 9 Refer ence inter vals for alpha and gamma -toco phero l deter mined from [facility] Nutri tion Exami natio n Surve y, 2004- 2005. Indiv idual s with alpha -toco phero l level s less than 5.0 mg/L are consi dered vitam in E defic ient. Not Available [facility] ([facility]) [address] [facility], [place], [address], 12/15/2024 14:37:23 12/09/19 25 12/09/2024 HEMOG LOBIN A1C hemoglobin A1C 5.5 % 4.8-5. 6 normal Predi abete s: 5.7 - 6.4 Diabe inessa: >6.4 Glyce amauri contr ol for adult s with diabe inessa: <7.0 Not Available [facility] ([facility]) [address] [facility], [place], [address], 12/15/2024 14:37:24 12/09/19 25 12/09/2024 FOLAT E (FOLI C ACID) , SERUM folate (folic acid), serum >20.0 NG/mL >3.0 A serum folat e yanet ntrat ion of less than 3.1 ng/mL is consi dered to repre sent clini apurva defic iency . Not Available [facility] ([facility]) [address] [facility], [place], [address], 12/15/2024 14:37:24 12/09/19 25 12/15/2024 VITAM IN A, SERUM vitamin A 56.7 ug/dL 22.0-6 9.5 Refer ence inter vals [...] e ayesha cteri stics deter mined by [facility]. It has not been clear ed or appro viki by the Food and Drug Admin istra tion. Not Available [facility] ([facility]) [address] [facility], [place], [address], 12/15/2024 14:37:25 12/09/19 25 12/09/2024 VITAM IN D, 25-HY DROXY vitamin D, 25-hydroxy 80.3 NG/mL 30.0-1 00.0 Vitam in D defic iency has been defin ed by the Insti tute of Medic ine and an Endoc rine Socie ty pract ice guide line as a level of serum 25-OH vitam in D less than 20 ng/mL (1,2) . The Endoc rine Socie ty went on to furth er defin e vitam in D insuf ficie ncy as a level betwe en 21 and 29 ng/mL (2). 1. IOM (Inst itute of Medic ine). 2009. Dottya ry refer ence spencer es for calci um and D. Joanna roque [place]: The [facility] . 2. Junie lugo MF, Garrick wallace [place], Valeria off-F errar i TURCIOS, et al. Evalu ation , treat ment, and preve ntion of vitam in D defic iency : an Endoc rine Socie ty clini apurva pract ice guide line. JCEM. 2010; 96(7) :1911 -30. Not Available [facility] ([facility]) [address] [place], [address], 12/15/2024 14:37:26 12/09/19 25 12/14/2024 VITAM IN B1 (THIA MINE) , BLOOD vit. B1, whole blood 324.9 nmol/ L 66.5-2 00.0 above high normal Not Available [facility] ([facility]) [address] [place], [address], 12/15/2024 14:37:27 12/09/19 25 12/13/2024 METHY LMALO ALICIA ACID, SERUM methylmaloni c acid, serum 278 nmol/ L 0-378 Not Available [facility] ([facility]) [address] [place], [address], 12/15/2024 14:37:28 12/09/19 25 12/11/2024 COPPE R, SERUM OR PLASM A copper, serum or plasma 106 ug/dL 80-158 Detec tion Limit = 5 Not Available [facility] ([facility]) [address] [facility], [place], [address], 12/15/2024 14:37:29 12/09/19 25 12/11/2024 ZINC, PLASM A OR SERUM zinc, plasma or serum 75 ug/dL 44-115 normal Detec tion Limit = 5 Not Available [facility] ([facility]) [address] [facility], [place], [address], 12/15/2024 14:37:30 12/09/19 25 12/09/2024 PREAL BUMIN prealbumin 22 mg/dL 10-36 Not Available [facility] ([facility]) [address] [facility], [place], [address], 12/15/2024 14:37:30 12/09/19 25 12/12/2024 SELEN IUM, BLOOD selenium, blood 155 ug/L 100-34 0 Detec tion Limit = 10 Not Available [facility] ([facility]) [address] [facility], [place], [address], 12/15/2024 14:37:31 Result Notes None recorded. Problems Name Problem SNOMED Code Status Onset Date Resolution Date Notes Provider Name and Address Organization Details Recorded Time Metabolic dysfuncti on-associ ated steatohep atitis 697696910 Active 2023 Ernesto Amezcua PA-C [address], [place], [address] , [facility] & [place] 5 14:30:35 Gastroeso phageal reflux disease without esophagit is 856527293 Active 2023 Ernesto Amezcua PA-C [address], [place], [address] , [place] [facility] & [place] 4 13:48:57 Chronic idiopathi c constipat ion 43681843 Active 2021 Not Available [facility] 3 16:06:44 Gastroeso phageal reflux disease 141169616 Active 2021 Not Available [facility] 3 16:06:44 Diarrhea 71614548 Active 2021 Not Available [facility] 3 16:06:44 Hypokalem ia 18514894 Active 2021 Not Available [facility] 3 16:06:44 Abdominal pain 35295589 Active 2021 Not Available [facility] 3 16:06:44 Myocardia l infarctio n 52004045 Completed 202103/25/2022 Azeb Quesada null, [place] [facility] [place] & [place] 2 14:37:03 Fibromyal dominique 039477434 Active 2021 Not Available [facility] 3 16:06:44 Mild dementia 23331888789 4108 Active 2021 Not Available [facility] 3 16:06:44 Chronic obstructi ve pulmonary disease 91724009 Active 2021 Not Available [facility] 3 16:06:44 Hiatal hernia 15009879 Completed 202103/25/2022 Azeb Quesada null, [place] [facility] [place] & [place] 2 14:38:57 Chronic depressio n 625619070 Active 2021 Not Available [facility] 3 16:06:44 Obesity 896950988 Active 2021 Ernesto Amezcua PA-C [address], [place], [address] , [place] [facility] [place] & [place] 2 14:51:36 Hypertens silvino disorder 14762328 Active 2022 Not Available [facility] 3 16:06:44 Dyslipide franc 481190931 Active 2022 Not Available [facility] 3 16:06:44 Morbid obesity 719466038 Active 2022 Not Available [facility] 3 16:06:44 Dizziness 057517221 Active 2022 Not Available [facility] 3 16:06:44 Intention al weight loss 011728704 Active 2022 Not Available [facility] 3 16:06:44 Constipat ion 61933650 Active 2022 Ernesto Amezcua PA-C [address], [place], [place], [address] [place] [address] , [place] [facility] [place] & [place] 3 15:41:42 Overweigh t 910857689 Active 2023 Aden Husain DNP, [employer]OUTE [employer]ER SUPERVISOR, GOL[employer] MECHANIC-C [address], [place], [place], [address] [place] [address] , [place] [facility] [place] 4 09:57:50 Fatigue 37079556 Active 2023 Aden Husain DNP, ROUTE RIDER SUPERVISOR, [employer] MECHANIC-C [address], [place], [place], [address] [place] [address] , [place] [facility] [place] & [place] 4 10:00:39 Liver enzymes level above reference range 170100230 Active 2023 Aden Husain DNP, ROUTE RIDER SUPERVISOR, [employer] CART MECHANIC-C [address], [place], [place], [address] [place] [address] , [place] [facility] [place] & [place] 4 13:32:45 Low back pain 042732037 Active 2023 Aden Husain DNP, ROUTE RIDER SUPERVISOR, GOLF C[employer] MECHANIC-C [address], [place], [address] [place] [address] , [place] [facility] [place] & [place] 4 15:56:35 Irritable bowel syndrome character ized by constipat ion 338261481 Active 2023 Ernesto Amezcua PA-C [address], [place], [address] [place] [address] , [place] [facility] [place] & [place] 4 09:08:46 Problem Notes None recorded. Procedures Surgical History Date Name Laterality Status Provider Name and Address Organization Details Recorded Time 07/23/[address], LD [address] , [place], [address], [place] [facility] [place] 08/14/2022 16:17:22 05/28/20 21 Date of Last Pap Smear completed RIMMA RAY RD, LD [address], [place], [address], [place] [facility] [place] 08/14/2022 16:17:22 12/20/19 21 Date of Last Colonoscopy completed RIMMA RAY RD, LD [address] , [place], [address], [place] [facility] & [place] 08/14/2022 16:17:22 11/17/19 20 Most Recent Bone Density completed RIMMA RAY RD, LD [address] , [place], [address], [place] [facility] & [place] 08/14/2022 16:17:22 Appendectomy completed Not Available [facility] 13:08:39 extraction of wisdom tooth completed Not Available [facility] 08/10/2022 13:08:39 lithotripsy completed Not Available [facility] 07/14 13:08:39 Colonoscopy completed Marychuy Quesada [place] - [facility] [place] 08/13/2022 11:21:25 EGD completed Marychuy Quesada [place] - [facility] & [place] 08/13/2022 11:21:36 Gastric Bypass completed Dipesh Dow [place] [facility] [place] 12/29/2022 08:20:27 Imaging Results None recorded. Procedure Notes None recorded. Medical Equipment None Reported. Allergies Allergen ID Allergen Name Allergen Category Reaction Reaction Severity Criticality Documentation Date Start Date Code Code System Note Provider Name and Address Organization Details Recorded Time 82485 Product containin g penicilli n (product) medicatio n Not available Not available Not available 03/25/2022 82558 8004 SNOMED Azeb aguillon, [place] [facility] & [place] 09/14/202 2 14:01:10 840035 indometha gen medicatio n Not available Not available Not available 06/19/2024 5781 RxNorm Other react ions and sever ities : 'Adve rse react ion to subst ance' . Kary Rust null, [facility] & [place] 4 14:05:45 810202 penicilli n V Not available Not available Not available Not available 06/19/2024 7984 RxNorm Other react ions and sever ities : 'Anap hylax is due to subst ance' . Kary Rust null, [facility] & [place] 4 14:05:45 222302 milnacipr an medicatio n Not available Not available Not available 06/19/2024 43228 0 RxNorm Other react ions and sever ities : 'Adve rse react ion to subst ance' . Kary aguillon, [facility] & [place] 4 14:05:45 76581 Savella medicatio n Not available Not available Not available 08/13/2022 30612 6 RxNorm Marychuy Quesada [facility], [facility] & [place] 3 11:18:57 Medications Name Sig Start Date Stop Date Status Note LastModified by Organization Details LastModified Time losartan 50 mg tablet 12/08 completed Not Available Not Available Not Available celecoxib 200 mg capsule Take 200 mg by oral route. 12/08 completed Not Available Not Available Not Available amoxicilli n 500 mg capsule TAKE 1 CAPSULE BY MOUTH THREE TIMES DAILY 09/21 completed Not Available Not Available Not Available atorvastat in 40 mg tablet active Not Available Not Available Not Available lamotrigin e 150 mg tablet TAKE 1 TABLET BY MOUTH TWICE DAILY active Not Available Not Available No t Available terconazol e 0.4 % vaginal cream INSERT 1 APPLICAT ORFUL VAGINALL Y AT NIGHT AT BEDTIME FOR 7 DAYS active Not Available Not Available No t Available promethazi ne-DM 6.25 mg-15 mg/5 mL oral syrup TAKE 5 ML BY MOUTH EVERY 6 HOURS NEEDED 12/06 completed Not Available Not Available Not Available atorvastat in 80 mg tablet 12/08 completed Not Available Not Available Not Available [...] BY MOUTH TWICE DAILY FOR 10 DAYS 12/08 completed Not Available Not Available Not Available atorvastat in 20 mg tablet Take 80 mg by oral route. 12/08 completed Not Available Not Available Not Available venlafaxin e 75 mg tablet TAKE 2 [...] 1 TABLET BY MOUTH EVERY 3 DAYS 12/08 completed Not Available Not Available Not Available benzonatat e 200 mg capsule TAKE [...] Not Available Not Available Not Available quetiapine 200 mg tablet Take 1 tablet every day by oral route at bedtime. active Not Available Not Available No t Available terconazol e 0.8 % vaginal cream [...] 150 mg capsule,ex tended release 24 hr Take 225 mg by oral route. 12/08 completed Not Available Not Available Not Available sumatripta n 50 mg tablet TAKE ONE TABLET BY MOUTH AT ONSET OF MIGRAINE . IF SYMPTOMS PERSIST, A SECOND DOSE MAY BE TAKEN IN 2 HOURS. DO NOT EXCEED 2 DOSES IN A 24 HOUR PERIOD active Not Available Not Available No t Available rocuronium 10 mg/mL intravenou s solution 100 mg by intraven . route. 12/21 completed Not Available Not Available Not Available acyclovir 400 mg tablet TAKE 1 TABLET BY MOUTH TWICE DAILY 06/23 completed Not Available Not Available Not Available valacyclov ir 500 mg tablet TAKE 2 TABLETS BY MOUTH EVERY 12 HOURS 12/08 completed Not Available Not Available Not Available ciprofloxa gen 500 mg tablet TAKE [...] TAKE 1 TABLET BY MOUTH AT BEDTIME 12/08 completed Not Available Not Available Not Available acetaminop hen 500 mg tablet 500 [...] Not Available bisoprolol fumarate 5 mg tablet TAKE 1 TABLET BY MOUTH [...] 1 CAPSULE BY MOUTH TWICE DAILY FOR 7 DAYS 12/08 completed Not Available Not Available Not Available [...] completed Not Available Not Available Not Available mupirocin 2 % topical ointment APPLY OINTMENT TOPICALL Y TWICE DAILY FOR INFECTIO N FOR 14 DAYS active Not Available Not Available No t Available phenylephr ine 10 mg/mL injection solution 20 mg by injectio n route. 12/22 completed Not Available Not Available Not Available sodium chloride 0.9 % intravenou s solution 1000 mL by intraven . route. 12/21 completed Not Available Not Available Not Available clobetasol 0.05 % topical ointment APPLY OINTMENT TOPICALL Y TO AFFECTED AREA TWICE DAILY FOR 14 DAYS active Not Available Not Available No t Available dexamethas one sodium phosphate 4 mg/mL [...] TAKE 1 TABLET BY MOUTH ONCE DAILY 12/08 completed Not Available Not Available Not Available [...] Available Not Available celecoxib 100 mg capsule 12/08 completed Not Available Not Available Not Available Quelicin [...] Not Available doxycyclin e hyclate 100 mg tablet TAKE 1 TABLET BY MOUTH TWICE DAILY 12/08 completed Not Available Not Available Not Available [...] TAKE 1 TABLET BY MOUTH AT BEDTIME 12/08 completed Not Available Not Available Not Available ondansetro n HCl (PF) 4 mg/2 [...] Available Not Available Linzess 290 mcg capsule Take 1 capsule every day by oral route for 30 days. 2024 active Not Available Not Available Not Avai lable Bridion 100 mg/mL intravenou s solution 500 [...] FOR 5 DAYS PER PACKAGE INSTRUCT IONS 12/08 completed Not Available Not Available Not Available cefazolin 2 gram solution for injection 2 g by injectio n route. 12/21 completed Not Available Not Available Not Available Vitals Date Recorded Body height Body temperature Heart rate Body mass index (BMI) Body weight Systolic blood pressure Diastolic blood pressure Provider Name and Address Organization Details Last Updated DateTime 5 162.56 cm 98.1 [degF] 75 /min 24.8 kg/m2 05289.7 4 g 96 mm[Hg] 70 mm[Hg] Araceli SNOW [facility] & [place] 5 09:01:03 Date Recorded Body height Body mass index (BMI) Body weight Body temperature Heart rate Provider Name and Address Organization Details Last Updated DateTime 12/27/2024 162.56 cm 24.7 kg/m2 69037.58 g 98.4 [degF] 97 /min [facility] EDY [facility] & [place] 5 14:16:54 Date Recorded Body height Body temperature Heart rate Body mass index (BMI) Body weight Systolic blood pressure Diastolic blood pressure Provider Name and Address Organization Details Last Updated DateTime 4 162.56 cm 97.8 [degF] 76 /min 26.2 kg/m2 25608.8 4 g 109 mm[Hg] 73 mm[Hg] Araceli Velasquez EDY Jevon [facility] & [place] 4 09:28:16 Date Recorded Body height Body temperature Heart rate Body mass index (BMI) Body weight Systolic blood pressure Diastolic blood pressure Provider Name and Address Organization Details Last Updated DateTime 4 162.56 cm 98.7 [degF] 89 /min 25 kg/m2 03304.4 1 g 113 mm[Hg] 81 mm[Hg] Araceli Eva SNOW [facility] & [place] 4 09:17:32 Date Recorded Body height Body mass index (BMI) Body weight Body temperature Heart rate Heart rate Oxygen saturation Oxygen saturation in Arterial blood by Pulse oximetry Systolic blood pressure Diastolic blood pressure Provider Name and Address Organization Details Last Updated DateTime 4 162.56 cm 24.8 kg/m2 65441.0 2 g 97.4 [degF] 99 /min 98 /min 97 % 97 % 107 mm[Hg] 73 mm[Hg] Francisca Nolascowell [facility] & [place] 4 13:05:54 Social History Question Answer Notes LastModified by [employer] Details LastModified Time Tobacco Smoking Status Former Smoker quit 3 years ago Araceli Velasquez [facility], [facility] & [place] 09/06/2023 09:49:34 Do You Have An Advance Directive? No [email or web address] Information not available 08/14/2022 Are You Blind Or Do You Have Difficulty Seeing? No [email or web address] Information not available 08/14/2022 What Was The Date Of Your Most Recent Tobacco Screening? 08/10/2022 [email or web address] Information not available 08/14/2022 Are You Passively Exposed To Smoke? No [email or web address] Information not available 08/14/2022 How Much Tobacco Do You Smoke? No [email or web address] Information not available 08/14/2022 Sex: Male Functional Status Question Answer Note LastModified by [employer] Details LastModified Time Do you use any illicit or recreational drugs? No [email or web address] Information not available 08/10/2022 What is your level of alcohol consumption? None [email or web address] Information not available 08/10/2022 Do you or have you ever used smokeless tobacco? Never used smokeless tobacco [email or web address] Information not available 08/14/2022 What is your exercise level? None [email or web address] Information not available 08/14/2022 Mental Status Question Answer Note LastModified by Organization D etails LastModified Time Do you feel stressed (tense, restless, nervous, or anxious, or unable to sleep at night)? [id number] Information not available 08/14/2022 Family History Relationship Description Onset Age of this Age Resolved Age Notes LastModified by Organization Details LastModified Time Father Obesity [email or web address] Not availa ble 08/10/2022 08:30:50 Father Diabetes mellitus [email or web address] Not available 2024 14:11:10 Father Hypertensive disorder [email or web address] Not available 08:31:23 Father Heart disease [email or web address] Not available 08:31:48 Father Cerebrovascu lar accident [email or web address] Not available 08/10/2022 08:32:04 Father Hypercholest [email or web address] Not available 08:32:27 Father Asthma [email or web address] Not available 12/27/2024 14:11:10 Father Allergy pt. added direct ly (08/10) [email or web address] Not available 08/10/2022 13:04:20 Father Disorder of endocrine system pt. added direct ly (08/10) [email or web address] Not available 08/10/2022 13:07:54 Maternal Grandmother Obesity [email or web address] Not available 0 08/10/2022 08:30:50 Maternal Grandmother Hypertensive disorder [email or web address] Not available 08:31:23 Maternal Grandmother Heart disease Not available 08:31:49 Mother Hypertensive disorder [email or web address] Not available 08:31:23 Mother Heart disease [email or web address] Not available 08:31:48 Mother Cerebrovascu lar accident [email or web address] Not available 08/10/2022 08:32:04 Mother Hypercholest erolemia [email or web address] Not available 08:32:27 Mother Allergy pt. added direct ly (08/10) [email or web address] Not available 08/10/2022 13:04:20 Brother Hypertensive disorder [email or web address] Not available 08:31:23 Brother Heart disease [email or web address] Not available 08:31:49 Brother Hypercholest erolemia [email or web address] Not available 08:32:27 Brother Cerebrovascu lar accident pt. added direct ly (09/03) [email or web address] Not available 09/03/2023 11:07:40 Sister Hypertensive disorder [email or web address] Not available 08:31:23 Sister Hypercholest erolemia [email or web address] Not available 08:32:27 Maternal Grandfather Heart disease [email or web address] Not available 08:31:49 Maternal Uncle Allergy pt. added direct ly (08/10) [email or web address] Not available 08/10/2022 13:04:20 Paternal Grandmother Obesity pt. added direct ly (08/10) [email or web address] Not available 08/10/2022 13:08:19 Medical History Condition Response Other Y Gout N Kidney Stones Y Depression Y COPD Y Osteoporosis/Osteopenia Y Constipation Y Spine Problems Y Heart Attack (SD) Y Obstructive Sleep Apnea Y Anxiety Disorder Y Obesity Y Arthritis Y Back Problems Y Asthma Y Reflux/GERD N High Cholesterol Y Liver Disease Y Psychiatric/Mental Health Condition Y Heart Disease Y Headaches Y Hypertension Y Gynecological History [...] virus, quadrivalent, preservative 7 completed Not Available [facility] 01/01/2023 16:06:44 Influenza, recombinant, quadrivalent, PF 1 completed Not Available [facility] 01/01/2023 16:06:44 Influenza, recombinant, quadrivalent, PF 0 completed Not Available [facility] 01/01/2023 16:06:44 zoster recombinant 1 completed Not Available [facility] 01/01/2023 16:06:44 zoster recombinant 1 completed Not Available [facility] 01/01/2023 16:06:44 MMR 6 completed Not Available [facility] 01/01/2023 16:06:44 COVID-19, mRNA, LNP-S, PF, 100 mcg/0.5mL dose or 50 mcg/0.25mL dose 1 completed Not Available [facility] 01/01/2023 16:06:44 COVID-19, mRNA, LNP-S, PF, 100 mcg/0.5mL dose or 50 mcg/0.25mL dose 1 completed Not Available [facility] 01/01/2023 16:06:44 COVID-19, mRNA, LNP-S, PF, 100 mcg/0.5mL dose or 50 mcg/0.25mL dose 1 completed Not Available [facility] 01/01/2023 16:06:44 Pneumococcal conjugate PCV20, polysaccharide [id number] conjugate, adjuvant, PF 2 completed Not Available [facility] 01/01/2023 16:06:44 pneumococcal polysaccharide PPV23 1 completed Not Available [facility] 01/01/2023 16:06:44 pneumococcal polysaccharide PPV23 7 completed Not Available [facility] 01/01/2023 16:06:44 Influenza, split virus, quadrivalent, PF 9 completed Not Available [facility] 01/01/2023 16:06:44 Influenza, split virus, quadrivalent, PF 2 completed Not Available [facility] 01/01/2023 16:06:44 Influenza, split virus, quadrivalent, PF 8 completed Not Available [facility] 01/01/2023 16:06:44 influenza, unspecified formulation 4 completed Kary Rust null, [place] [facility] [place] 08/08/2024 13:51:39 Respiratory syncytial virus (RSV) MAB, unspecified 4 completed Araceli Velasquez null, [place] [facility] [place] 06/06/2024 09:21:15 Influenza, high-dose, quadrivalent, PF 3 completed Kary Rust null, [place] [facility] [place] 08/08/2024 13:51:39 RSV, recombinant, protein subunit RSVpreF, adjuvant reconstituted, 0.5 mL, PF 4 completed Kary Rust [place], [place] [facility] [place] [facility] [place] 08/08/2024 13:51:39 Influenza, high-dose, trivalent, PF 4 completed Kary Rust [facility], [place] - [facility] [place] & [place] 08/08/2024 13:51:39 Past Encounters Encounter ID Performer Location Encounter Start Date Encounter Closed Date Diagnosis/Indication Diagnosis SNOMED-CT Code Diagnosis ICD10 Code Diagnosis Note [id number] Ernesto Amezcua PA-C [facility] [address] [facility] [address] [place] [address] 03/25/2022 13:56:07 03/25/2022 14:27:57 Chronic idiopathic constipation 50800827 K59.04 Continue current bowel regimen with stool softners, fiber supplement , and Miralax as needed Gastroesop hageal reflux disease 589597829 K21.9 Increase PPI to twice daily due to refractory symptoms Obesity 485230608 E66.9 Referral to Bariatrics to discuss weight loss options. [id number] RANI Rosario [facility] [address] [facility] [address] [place] [address] 08/13/2022 07:57:41 08/13/2022 11:52:06 Obesity 315506169 E66.9 The patient will be scheduled for [...] been completed Chronic ob structive pulmonary disease 14563324 J44.9 Hypertensive disorder 38 605969 I10 Dyslipidemia 218869724 E 78.5 Hx CAD s/p SD 2014 Gastroesop hageal reflux disease 323340051 K21.9 We discussed concerns of worsening gastroesop hageal reflux status post sleeve gastrectom y or RANDA-s. Discussed Priscila-en-Y gastric bypass may be advised. Further advisement pending EGD results. Discussed Priscila-en-Y gastric bypass in depth including postoperat silvino vitamin concerns. The importance of daily vitamin supplement ation was discussed specifical ly common deficienci es with Priscila-en-Y of iron B12 and B1/thiamin . We discussed lifelong contraindi cated medication including NSAIDs and steroids and specifical ly the risk for poor healing/le ak/anastom otic ulcer. Also discussed lifelong contraindi cation to tobacco/ni cotine use [id number] Ernesto Amezcua PA-C [facility] [address] [facility] [address] [place] [address] 09/21/2022 13:44:59 09/21/2022 14:12:51 Chronic idiopathic constipation 19933107 K59.04 Gastroesop hageal reflux disease 528680383 K21.9 Obesity 778059186 E66.9 [id number] Gabo Sahu DO [facility] [address] [place] [address] [address] [place] [address] 12/16/2022 08:52:42 12/16/2022 13:36:20 Morbid obesity 168037789 E66.01 Pre-surger y evaluation 043696188 Z01.818 Postoperative pain 50602 9007 G89.18 Hypertensive disorder 38 317271 I10 Gastroesop hageal reflux disease 454691216 K21.9 [id number] Aden Husain DNP, ROUTE RIDER SUPERVISOR, GOLF CART MECHANIC-C [facility] [address] [place] [address] [address] [place] [address] 12/29/2022 07:58:00 12/29/2022 10:15:25 History of bariatric surgical procedure 028516996 Z98.84 Chronic depression 09409 0009 F32.A Chronic ob structive pulmonary disease 23664384 J44.9 Dyslipidemia 922049150 E 78.5 Fibromyalgia 931900867 M 79.7 Hypertensive disorder 38 390408 I10 advised to follow back up with pcp regarding elevated blood pressure and dizziness. Morbid obesity 098507192 E66.01 Dizziness 296482752 R42 Intentiona l weight loss 713580143 R63.8 [id number] Aden Husain DNP, ARSENIO, GOLF CART MECHANIC-C [facility] [address] [facility] [address] [place] [address] 01/19/2023 09:44:10 01/19/2023 11:03:53 History of bariatric surgical procedure 807324374 Z98.84 Intentiona l weight loss 494125917 R63.8 History of gastrectomy 555186763 Z90.3 Advised qid intake 50% protein 3817-4920 calories/d y less than 100 carbs/dyPa tient was see dietitian today. Patient is status post bariatric surgery and at increased risk for vitamin deficienci es and malnutriti on. Bariatric vitamin panel ordered today. Patient will be contacted to correct any vitamin deficienci es. Chronic ob structive pulmonary disease 48330339 J44.9 Dyslipidemia 767140775 E 78.5 Fibromyalgia 932412788 M 79.7 Hypertensive disorder 38 077513 I10 advised to follow back up with pcp regarding elevated blood pressure and dizziness. Morbid obesity 909905831 E66.01 Dizziness 176668209 R42 [id number] Aden Husain, DNP, ROUTE RIDER SUPERVISOR, GOLF CART MECHANIC-C [facility] [address] [facility] [address] [place] [address] 03/19/2023 10:10:54 03/19/2023 11:00:26 History of bariatric surgical procedure 954786504 Z98.84 Intentiona l weight loss 369187056 R63.8 History of gastrectomy 232909612 Z90.3 Advised qid intake 50% protein 6807-1388 calories/d y less than 100 carbs/dyLo ng [...] to correct any vitamin deficienci es. Dyslipidemia 481276302 E 78.5 Fibromyalgia 008735881 M 79.7 Obesity 198246219 E66.9 [id number] Ernesto Amezcua PA-C [facility] [address] [facility] [address] [place] [address] 05/20/2023 14:50:51 05/20/2023 15:32:08 Obesity 656378599 E66.9 History of bypass of stomach 842533579 Z98.84 History of gastroesophageal reflux disease 6105331376 9106 Z87.19 Constipation 91293163 K5 9.00 [id number] Aden Husain, DNP, ROUTE RIDER SUPERVISOR, GOLF CART MECHANIC-C [facility] [address] [facility] [address] [place] [address] 05/28/2023 09:12:11 05/28/2023 09:46:17 History of bariatric surgical procedure 854656258 Z98.84 Intentiona l weight loss 908469423 R63.8 History of gastrectomy 146006510 Z90.3 Advised qid intake 50% protein 6828-1753 calories/d y less than 100 carbs/dy Long [...] correct any vitamin deficienci es. Chronic depression 91771 0009 F32.A Chronic id iopathic constipation 26242638 K59.04 Dyslipidemia 514620981 E 78.5 Fibromyalgia 634508854 M 79.7 Hypertensive disorder 38 045161 I10 Obesity 680896201 E66.[id number]AS RDN, LD [facility] [address] [facility] [address] [place] [address] 05/28/2023 09:47:21 05/28/2023 10:33:33 Obesity 795047771 E66.9 Discussed lifestyle modificati ons for continued weight loss and optimal nutrition Deficient knowledge of food and/or nutrition 0771845381 Z76.89 RDN advised pt on ways she can increase her protein and calorie intake, including adding peanut butter with fruits and making mixed dishes such as reduced fat casseroles . Advised pt to try baked apples with a small amount of canola oil, cinnamon and Splenda or similar alternativ e as needed. [id number] Aden Husain DNP, ARSENIO, GOLF CART MECHANIC-C [facility] [address] [facility] [address] [place] [address] 09/06/2023 09:37:05 09/06/2023 10:21:52 Dyslipidemia 667672737 E78.5 Fibromyalgia 116513737 M 79.7 Hypertensive disorder 38 782281 I10 Overweight 278542671 E66 .3 Intentiona l weight loss 053626995 R63.8 History of gastrectomy 374125587 Z90.3 Advised qid intake 50% protein 1595-7362 calories/d y less than 100 carbs/dy Long [...] to correct any vitamin deficienci es. Fatigue 08496349 R53.83 [id number] Aden Husain DNP, ARSENIO, GOLF CART MECHANIC-C [facility] [address] [place] [address] [address] [place] [address] 12/07/2023 13:03:52 12/07/2023 14:39:49 History of bariatric surgical procedure 252183860 Z98.84 Intentiona l weight loss 465770730 R63.8 History of gastrectomy 786609513 Z90.3 Advised qid intake 50% protein 1085-8886 calories/d y less than 100 carbs/dy Long [...] to correct any vitamin deficienci es. Dyslipidemia 827452359 E 78.5 Hypertensive disorder 38 815729 I10 Overweight 852550384 E66 .3 Chronic ob structive pulmonary disease 93004588 J44.9 Liver enzy mes level above reference range 024873939 R74.01 [id number] Jonas Ball MD [facility] [address] [place] [address] 12/21/2023 14:58:32 12/21/2023 16:40:24 Obesity 629057199 E66.9 History of bypass of stomach 679541180 Z98.84 History of gastroesophageal reflux disease 4615234391 9106 Z87.19 Constipation 81615240 K5 9.00 Liver enzy mes level above reference range 513949516 R74.01 [id number] Ernesto Amezcua PA-C [facility] [address] [place] [address] 03/02/2024 08:10:22 03/02/2024 09:21:52 Obesity 996902358 E66.9 History of bypass of stomach 128589487 Z98.84 History of gastroesophageal reflux disease 3192480657 9106 Z87.19 Liver enzy mes level above reference range 005535131 R74.01 Irritable bowel syndrome characterized by constipation 919360209 K58.1 [id number] Aden Husain, DNP, ROUTE RIDER SUPERVISOR, GOLF CART MECHANIC-C [facility] [address] [facility] [address] [place] [address] 03/06/2024 09:07:07 03/06/2024 10:03:41 History of bariatric surgical procedure 640426132 Z98.84 Intentiona l weight loss 285195850 R63.8 History of gastrectomy 351628750 Z90.3 Advised qid intake 50% protein 0167-9929 calories/d y less than 100 carbs/dyLo ng [...] to correct any vitamin deficienci es. Dyslipidemia 140831487 E 78.5 Hypertensive disorder 38 024441 I10 Overweight 487620718 E66 .3 Chronic id iopathic constipation 56720530 K59.04 [id number] Aden Husain, DNP, ROUTE RIDER SUPERVISOR, GOLF CART MECHANIC-C [facility] [address] [facility] [address] [place] [address] 06/06/2024 09:07:53 06/06/2024 09:44:14 Intentional weight loss 586120069 R63.8 History of gastrectomy 732978848 Z90.3 Advised qid intake 50% protein 3857-4527 calories/d y less than 100 carbs/dyLo ng [...] to correct any vitamin deficienci es. At [facility] ed risk of nutritional deficit 184482253 Z91.89 Chronic ob structive pulmonary disease 39390876 J44.9 Dyslipidemia 942711023 E 78.5 Hypertensive disorder 38 764948 I10 Liver enzy mes level above reference range 473771835 R74.01 Overweight 236359914 E66 .3 [id number] Ernesto Amezcua PA-C [facility] [address] [facility] [address] [place] [address] 06/26/2024 12:47:56 06/26/2024 13:41:37 Chronic idiopathic constipation 88671553 K59.04 Metabolic dysfunction-associate d steatohepatitis 669184275 K75.81 Liver enzy mes level above reference range 446972065 R74.01 Gastroesop hageal reflux disease without esophagitis 104198303 K21.9 History of colonoscopy 1249058957 09 Z98.346 [id number] Aden Husain, DNP, ROUTE RIDER SUPERVISOR, GOLF CART MECHANIC-C [facility] [address] [facility] [address] [place] [address] 12/08/2024 08:48:35 12/08/2024 09:28:10 History of bariatric surgical procedure 280229738 Z98.84 Intentiona l weight loss 834111483 R63.8 History of gastrectomy 558624424 Z90.3 Advised qid intake 50% protein 8116-3725 calories/d y less than 100 carbs/dy Long [...] to correct any vitamin deficienci es. At [facility] ed risk of nutritional deficit 534748823 Z91.89 Dyslipidemia 009594210 E 78.5 Hypertensive disorder 38 395739 I10 Overweight 151324201 E66 .3 [id number] Ernesto Amezcua PA-C [facility] [address] [facility] [address] [place] [address] 12/27/2024 14:10:09 12/27/2024 14:38:18 Liver enzymes level above reference range 297292709 R74.01 Metabolic dysfunction-associate d steatohepatitis 420191117 K75.81 Gastroesop hageal reflux disease without esophagitis 903983840 K21.9 Chronic id iopathic constipation 95094969 K59.04 History of colonoscopy 8744083629 09 Z98.890 Health Concerns Section Related Observation LastModified by Organization Detai ls LastModified Time None Recorded Concern Status LastModified by Organization Details LastModified Time None Recorded Advance Directives Directive N: Payers Insurance Date Sequence Insurance Name Policy Number Policy Acosta Covered Member ID Acosta Member ID Guarantor Name 12/07/2024 1 MEDICARE B-[place]: [place]PS Maria Isabel Mark Doran [id number] Maria Isabeldesiree Doran 12/24/2024 2 AARP (MEDICARE SUPPLEMENT) Maria Isabeldesiree Doran [id number] Maria Isabeldesiree Doran 12/07/2024 [place] Maria Isabel Mark Doran [id number] Maria Isabel Espinoza 12/24/2024 1 [place] Maria Isabel Mark Doran [id number] Maria Isabeldesiree Doran 12/04/2020 3 [place] [id number] R Stanislav Doran [id number] Maria Isabeldesiree HollandEspinoza 12/07/2024 2 [place] Maria Isabel Mark Doran [id number] Maria Isabeldesiree HollandEspinoza 12/07/2024 4 [employer] (MEDICARE REPLACEMENT/ ADVANTAGE - HMO) Maria Isabel Mark Doran [id number] Maria Isabeldesiree Doran 12/07/2024 1 [employer] (MEDICARE REPLACEMENT/ ADVANTAGE - PPO) Maria Isabel Mark Doran [id number] Maria Isabeldesiree Doran Notes Date Note Type Note Provider Name and Address Organization Details Recorded Time 03/06/2024 text/html Patient presents the office today for routine follow-up status post bariatric gastric RNY gastric bypass surgery performed on 2022. Patient doing well. Reports q.i.d. small meal intake. Reports 90g/dy protein intake and good hydration.Patient is drinking 64 ounces of water a day.Daily Calories 1100Taking routine vitamins as advised.Heartburn/ gastroesophageal reflux: deniesPt Denies : abdominal pain, prandial [...] Rate = 1269 kilo calories Aden Husain, DNP, ROUTE RIDER SUPERVISOR, GOLF CART MECHANIC-C [address], [place], [address], [facility] & [place] 03/06/2024 10:54:05 06/06/2024 text/html Patient presents the office today for routine follow-up status post bariatric gastric RNY gastric bypass surgery performed on 2022. Patient doing well. Reports q.i.d. small meal intake. Reports 85-90g/dy protein intake and good hydration.Patient is drinking 64 ounces of water a day.Daily Calories 1200Taking routine vitamins as advised.Heartburn/ gastroesophageal reflux: deniesPt Denies : abdominal pain, prandial [...] = 1309 kilo calories Aden Husain, CAMMIE, ROUTE RIDER SUPERVISOR, GOLF CART MECHANIC-C [address], [place], [address], [facility] & [place] 06/06/2024 11:11:04 06/26/2024 text/html CURRENT (06/26/24): Ms. Doran is a very pleasant 68-year-old [...] bypass 1.5 years ago. Ernesto Amezcua PA-C [address], [place], [address], [facility] & [place] 06/26/2024 13:49:44 12/08/2024 text/html Patient presents the office today for routine 24 month follow-up status post bariatric gastric RNY gastric bypass surgery performed on 2022. Patient doing well. Reports q.i.d. small meal intake. Reports 90g/dy protein intake and good hydration.Patient is drinking 64 ounces of water a day.Daily Calories 1000-1200Taking routine vitamins as advised.Heartburn/ gastroesophageal reflux: deniesPt Denies : abdominal pain, prandial issues Nausea, Vomiting, bowel or bladder issuesTotal Weight loss Since last office visit has been 1.3 lbsPt is happy with their quality of life after Weight loss Surgery. Today's InBody reveals a skeletal muscle mass = 48.9 lb,body fat mass = 53.4 lb,BMI = 24.8Percent body fat = 37.0Basal Metabolic Rate = 1261 kilo calories Aden Husain, DNP, ROUTE RIDER SUPERVISOR, GOLF CART MECHANIC-C [address], [place], [address], [facility] 12/08/2024 09:20:24 12/27/2024 text/html PREVIOUS (06/26/24): Ms. Doran is a very pleasant 68-year-old [...] since undergoing gastric bypass 1.5 years ago. CURRENT (12/27/24): Ms. Doran returns to the office today for 6 month follow-up regarding MASH and chronic constipation. She recently had labs performed with bariatrics, which shows continued transaminitis with LFTs mildly increased compared to prior. CISNEROS Fibrosure from 07/15/2024 was c/w F1-2, S1, N3. Her weight has remained stable at 144 lbs. Today, she reports feeling well overall at this time. Ernesto Amezcua PA-C [address], [place], [address], [facility] [place] [facility] [place] 12/27/2024 14:41:34 OBGyn Episode No OBEpisode recorded.
--- OUTSIDE RECORDS SUMMARY | 2024-12-30 09:34 | XMS_ITS | Continuity of Care Document ---
Author Organization [place] - [facility] - [place] & [place], [facility] Address [address] [facility] [address] [place] [address] Care Team Providers Care Insert Cutter Name Role Phone GENET BRUCE Primary Care Provider [phone] Assessment Encounter Date Assessment Date Assessment LastModified by Organization Details LastModified Time 12/27/2024 12/27/2024 69-year-old female with: 1) Elevated liver enzymes/suspect ed MASH: First noted following bariatric surgery 12/2022. -US liver 01/17/24 was unremarkable. -Lab workup was most consistent with JORDAN, S1, N3, F1-F2 by fibrosure. She has [...] recommended 04/2029 for screening. f/u 1 month [email or web address] Not available 12/27/2024 14:41:04 Plan of Treatment Reminders Order Date Submit Date Provider Last Modified By Organization Details Last Modified Time Details Appointments Establish ed Visit 15 min 2024 01:45P M Ernesto Amezcua PA-C Not available Not available Not available OV EST 20 2024 10:00A M Aden Husain, DNP, INSPECTOR TYPE, SPRAY MIXER-C Not available Not available Not available Lab None recorded. Referral None recorded. Procedures biopsy, liver (PROC) - CT or US guidance, depending on radiologi st's preferenc e 2024 025 [facility] [place] [address], [address] [place], [address], 12/27/2024 14:50:48 Surgeries None recorded. Imaging None recorded. Medication Orders None recorded. Patient TargetsNo targets recorded. Patient InstructionsNo instructions recorded. Reason for Referral None Reported. Problems Name Problem SNOMED Code Status Onset Date Resolution Date Notes Provider Name and Address Organization Details Recorded Time Metabolic dysfuncti on-associ ated steatohep atitis 402490515 Active 2023 Ernesto Amezcua PA-C [address] [place], [address] , [facility] & [place] 5 14:30:35 Gastroeso phageal reflux disease without esophagit is 793572250 Active 2023 Ernesto Amezcua PA-C [address] [place], [address] , [facility] - [facility] & [place] 4 13:48:57 Chronic idiopathi c constipat ion 44192713 Active 2021 Not Available [facility] 3 16:06:44 Gastroeso phageal reflux disease 364874239 Active 2021 Not Available [facility] 3 16:06:44 Diarrhea 50210389 Active 2021 Not Available [facility] 3 16:06:44 Hypokalem ia 13667957 Active 2021 Not Available [facility] 3 16:06:44 Abdominal pain 44270788 Active 2021 Not Available [facility] 3 16:06:44 Myocardia l infarctio n 61422224 Completed 202103/25/2022 Azeb Quesada null, [place] - [facility] - [place] & [place] 2 14:37:03 Fibromyal dominique 705521867 Active 2021 Not Available [facility] 3 16:06:44 Mild dementia 38893650484 4108 Active 2021 Not Available [facility] 3 16:06:44 Chronic obstructi ve pulmonary disease 22002118 Active 2021 Not Available [facility] 3 16:06:44 Hiatal hernia 07721591 Completed 202103/25/2022 Azeb Quesada null, [place] - [facility] [place] & [place] 2 14:38:57 Chronic depressio n 391165543 Active 2021 Not Available [facility] 3 16:06:44 Obesity 499175486 Active 2021 Ernesto Amezcua PA-C [address] [facility], [place], [address] , [place] [facility] [place] [facility] [place] 2 14:51:36 Hypertens silvino disorder 16896982 Active 2022 Not Available [facility] 3 16:06:44 Dyslipide franc 951479854 Active 2022 Not Available [facility] 3 16:06:44 Morbid obesity 764782219 Active 2022 Not Available [facility] 3 16:06:44 Dizziness 011433079 Active 2022 Not Available [facility] 3 16:06:44 Intention al weight loss 900653235 Active 2022 Not Available [facility] 3 16:06:44 Constipat ion 71085364 Active 2022 Ernesto Amezcua PA-C [address], [place], [place], [address] [place] [address] , [place] [facility] [place] & [place] 3 15:41:42 Overweigh t 645417366 Active 2023 Aden Huasin, CAMMIE, INSPECTOR TYPE, SPRAY MIXER-C [address], [place], [place], [address] [place] [address] , [place] [facility] [place] & [place] 4 09:57:50 Fatigue 28565013 Active 2023 Aden Husain DNP, INSPECTOR TYPE, SPRAY MIXER-C [address], [place], [place], [address] [place] [address] , [place] [facility] [place] 4 10:00:39 Liver enzymes level above reference range 028521818 Active 2023 Aden Husain DNP, INSPECTOR TYPE, SPRAY MIXER-C [address], [place], [place], [address] [place] [address] , [place] [facility] [place] 4 13:32:45 Low back pain 805027480 Active 2023 Aden Husain DNP, INSPECTOR TYPE, SPRAY MIXER-C [address], [place], [place], [address] [place] [address] , [place] [facility] [place] & [place] 4 15:56:35 Irritable bowel syndrome character ized by constipat ion 013788021 Active 2023 Ernesto Amezcua PA-C [address], [place], [place], [address] [place] [address] , [place] [facility] [place] & [place] 4 09:08:46 Problem Notes None recorded. Procedures Surgical History Date Name Laterality Status Provider Name and Address Organization Details Recorded Time 07/23/[address], LD [address], [place], [place], [address] [place] [address], [place] [facility] [place] 08/14/2022 16:17:22 05/28/20 21 Date of Last Pap Smear completed RIMMA JOSEROSA RAY RD, LD [address], [place], [address], [facility] & [place] 08/14/2022 16:17:22 12/20/19 21 Date of Last Colonoscopy completed RIMMA JOSEROSA RAY RD, LD [address], [place], [address], [facility] & [place] 08/14/2022 16:17:22 11/17/19 20 Most Recent Bone Density completed RIMMA MARGIE RAY RD, LD [address], [place], [address], [facility] - NT [facility] & [place] 08/14/2022 16:17:22 Appendectomy completed Not Available [facility] 13:08:39 extraction of wisdom tooth completed Not Available [facility] 08/10/2022 13:08:39 lithotripsy completed Not Available [facility] 07/14 13:08:39 Colonoscopy completed Marychuy Quesada [facility] & [place] 08/13/2022 11:21:25 [facility] & [place] 08/13/2022 11:21:36 Gastric Bypass completed Dipesh Dow [facility] & [place] 12/29/2022 08:20:27 Imaging Results None recorded. Procedure Notes None recorded. Medical Equipment None Reported. Allergies Allergen ID Allergen Name Allergen Category Reaction Reaction Severity Criticality Documentation Date Start Date Code Code System Note Provider Name and Address Organization Details Recorded Time 51649 Product containin g penicilli n (product) medicatio n Not available Not available Not available 03/25/2022 62879 8001 SNOMED Azeb Dipak aguillonGLEN RICHEY, [place] - [place] [facility] & [place] 14:01:10 460891 indometha gen medicatio n Not available Not available Not available 06/19/2024 5781 RxNorm Other react ions and sever ities : 'Adve rse react ion to subst ance' . Kary aguillon, [place] - [facility] & [place] 4 14:05:45 286541 penicilli n V Not available Not available Not available Not available 06/19/2024 7984 RxNorm Other react ions and sever ities : 'Anap hylax is due to subst ance' . Kary Rust null, [place] - [place] [facility] & [place] 4 14:05:45 655538 milnacipr an medicatio n Not available Not available Not available 06/19/2024 09298 0 RxNorm Other react ions and sever ities : 'Adve rse react ion to subst ance' . Kary Rust null, [place] - [facility] - [place] & [place] 4 14:05:45 89007 Savella medicatio n Not available Not available Not available 08/13/2022 55776 6 RxNorm Marychuy Quesada null, [place] - [facility] & [place] 3 11:18:57 Medications Name Sig Start Date [...] Updated DateTime 12/27/2024 162.56 cm 24.7 kg/m2 91397.58 g 98.4 [degF] 97 /min Ernestine Laguerre [facility] & [place] 14:16:54 Social History Question Answer Notes LastModified by Zanbato Details LastModified Time Tobacco Smoking Status Former Smoker quit 3 years ago Araceli aguillon, [facility] & [place] 09/06/2023 09:49:34 Do You Have An Advance Directive? No [email or web address] Information not available 08/14/2022 Are You Blind Or Do You Have Difficulty Seeing? No [email or web address] Information not available 08/14/2022 What Was The Date Of Your Most Recent Tobacco Screening? 08/10/2022 [email or web address] Information not available 08/14/2022 Are You Passively Exposed To Smoke? No [email or web address] Information not available 08/14/2022 How Much Tobacco Do You Smoke? No Information not available 08/14/2022 Sex: Male Functional Status Question Answer Note LastModified by Zanbato Details LastModified Time Do you use any illicit or recreational drugs? No [email or web address] Information not available 08/10/2022 What is your level of alcohol consumption? None [email or web address] Information not available 08/10/2022 Do you or have you ever used smokeless tobacco? Never used smokeless tobacco Information not available 08/14/2022 What is your exercise level? None [email or web address] Information not available 08/14/2022 Mental Status Question Answer Note LastModified by Organization D etails LastModified Time Do you feel stressed (tense, restless, nervous, or anxious, or unable to sleep at night)? [id number] [email or web address] Information not available 08/14/2022 Family History Relationship Description Onset Age of this Age Resolved Age Notes LastModified by Organization Details LastModified Time Father Obesity [email or web address] Not availa ble 08/10/2022 08:30:50 Father Diabetes mellitus [email or web address] Not available 2024 14:11:10 Father Hypertensive disorder Not available 08:31:23 Father Heart disease Not available 08:31:48 Father Cerebrovascu lar accident Not available 08/10/2022 08:32:04 Father Hypercholest erolemia [email or web address] Not available 08:32:27 Father Asthma [email or web address] Not available 12/27/2024 14:11:10 Father Allergy pt. added direct ly (08/10) [email or web address] Not available 08/10/2022 13:04:20 Father Disorder of endocrine system pt. added direct ly (08/10) [email or web address] Not available 08/10/2022 13:07:54 Maternal Grandmother Obesity [email or web address] Not available 0 08/10/2022 08:30:50 Maternal Grandmother Hypertensive disorder [email or web address] Not available 08:31:23 Maternal Grandmother Heart disease [email or web address] Not available 08:31:49 Mother Hypertensive disorder [email or web address] Not available 08:31:23 Mother Heart disease [email or web address] Not available 08:31:48 Mother Cerebrovascu lar accident [email or web address] Not available 08/10/2022 08:32:04 Mother Hypercholest erolemia [email or web address] Not available 08:32:27 Mother Allergy pt. added direct ly (08/10) [email or web address] Not available 08/10/2022 13:04:20 Brother Hypertensive disorder [email or web address] Not available 08:31:23 Brother Heart disease [email or web address] Not available 08:31:49 Brother Hypercholest erolemia Not available 08:32:27 Brother Cerebrovascu lar accident pt. added direct ly (09/03) [email or web address] Not available 09/03/2023 11:07:40 Sister Hypertensive disorder [email or web address] Not available 08:31:23 Sister Hypercholest erolemia [email or web address] Not available 08:32:27 Maternal Grandfather Heart disease [email or web address] Not available 08:31:49 Maternal Uncle Allergy pt. added direct ly (08/10) [email or web address] Not available 08/10/2022 13:04:20 Paternal Grandmother Obesity pt. added direct ly (08/10) [email or web address] Not available 08/10/2022 13:08:19 Medical History Condition Response Gout N Other Y Kidney Stones Y COPD Y Depression Y Osteoporosis/Osteopenia Y Constipation Y Spine Problems Y Heart Attack (NE) Y Obstructive Sleep Apnea Y Anxiety Disorder [...] virus, quadrivalent, preservative 7 completed Not Available [facility] 01/01/2023 16:06:44 Influenza, recombinant, quadrivalent, PF 1 completed Not Available [facility] 01/01/2023 16:06:44 Influenza, recombinant, quadrivalent, PF 0 completed Not Available [facility] 01/01/2023 16:06:44 zoster recombinant 1 completed [facility] Available [facility] 01/01/2023 16:06:44 zoster recombinant 1 completed Not Available [facility] 01/01/2023 16:06:44 MMR 6 completed Not Available [facility] 01/01/2023 16:06:44 COVID-19, mRNA, LNP-S, PF, 100 mcg/0.5mL dose or 50 mcg/0.25mL dose 1 completed Not Available [facility] 01/01/2023 16:06:44 COVID-19, mRNA, LNP-S, PF, 100 mcg/0.5mL dose or 50 mcg/0.25mL dose 1 completed Not Available [facility] 01/01/2023 16:06:44 COVID-19, mRNA, LNP-S, PF, 100 mcg/0.5mL dose or 50 mcg/0.25mL dose 1 completed Not Available [facility] 01/01/2023 16:06:44 Pneumococcal conjugate PCV20, polysaccharide EVM724 conjugate, adjuvant, PF 2 completed Not Available [facility] 01/01/2023 16:06:44 pneumococcal polysaccharide PPV23 1 completed Not Available [facility] 01/01/2023 16:06:44 pneumococcal polysaccharide PPV23 7 completed Not Available [facility] 01/01/2023 16:06:44 Influenza, split virus, quadrivalent, PF 9 completed Not Available [facility] 01/01/2023 16:06:44 Influenza, split virus, quadrivalent, PF 2 completed Not Available [facility] 01/01/2023 16:06:44 Influenza, split virus, quadrivalent, PF 8 completed Not Available [facility] 01/01/2023 16:06:44 influenza, unspecified formulation 4 completed Kary Rust null, [place] - [facility] & [place] 08/08/2024 13:51:39 Respiratory syncytial virus (RSV) MAB, unspecified 4 completed Araceli Velasquez null, [place] - [facility] & [place] 06/06/2024 09:21:15 Influenza, high-dose, quadrivalent, PF 3 completed Kary Rust null, [place] - [facility] & [place] 08/08/2024 13:51:39 RSV, recombinant, protein subunit RSVpreF, adjuvant reconstituted, 0.5 mL, PF 4 completed Kary Rust null, [place] - [facility] [place] & [place] 08/08/2024 13:51:39 Influenza, high-dose, trivalent, PF 4 completed Karyanika Rust [facility], [place] - [facility] - [place] & [place] 08/08/2024 13:51:39 Past Encounters Encounter ID Performer Location Encounter Start Date Encounter Closed Date Diagnosis/Indication Diagnosis SNOMED-CT Code Diagnosis ICD10 Code Diagnosis Note [id number] Aden Husain, DNP, INSPECTOR TYPE, SPRAY MIXER-C [facility] [address] [facility] [address] [place] [address] 12/08/2024 08:48:35 12/08/2024 09:28:10 History of bariatric surgical procedure 767898743 Z98.84 Intentiona l weight loss 030264627 R63.8 History of gastrectomy 622438161 Z90.3 Advised qid intake 50% protein 3451-8385 calories/d y less than 100 carbs/dy Long [...] to correct any vitamin deficienci es. At [facility] ed risk of nutritional deficit 754367855 Z91.89 Dyslipidemia 467271175 E 78.5 Hypertensive disorder 38 021008 I10 Overweight 160707570 E66 .3 [id number] Ernesto Amezcua PA-C [facility] [address] [facility] [address] 12/27/2024 14:10:09 12/27/2024 14:38:18 Liver enzymes level above reference range 014494751 R74.01 Metabolic dysfunction-associate d steatohepatitis 556763817 K75.81 Gastroesop hageal reflux disease without esophagitis 638330851 K21.9 Chronic id iopathic constipation 93637735 K59.04 History of colonoscopy 5141960873 09 Z98.890 Health Concerns Section Related Observation LastModified by Organization Detai ls LastModified Time None Recorded Concern Status LastModified by Organization Details LastModified Time None Recorded Payers Encounter Date Sequence Insurance Name Policy Number Policy Acosta Covered Member ID Acosta Member ID Guarantor Name 12/27/2024 2 [employer] (MEDICARE SUPPLEMENT) Maria Isabel Doran [id number] Maria Isabel Doran 12/27/2024 1 [place] Maria Isabel Droan [id number] Maria Isabel Doran Notes Date Note Type Note Provider Name and Address Organization Details Recorded Time 12/27/2024 text/html PREVIOUS (06/26/24): Ms. Doran is a very pleasant 68-year-old female who returns to the office today for follow-up regarding JORDAN and chronic constipation. She underwent screening colonoscopy [...] with LFTs mildly increased compared to prior. JORDAN Fibrosure from 07/15/2024 was c/w F1-2, S1, N3. Her weight has remained stable at 144 lbs. Today, she reports feeling well overall at this time. Ernesto Amezcua PA-C [address], [place], [address], [facility] - [facility] - [place] & [place] 12/27/2024 14:41:34 OBGyn Episode No OBEpisode recorded.
--- OUTSIDE RECORDS SUMMARY | 2024-12-30 09:35 | XMS_ITS | Continuity of Care Document ---
Author Organization [place] - [place] [facility] Address [address] [place] [address] Care Team Providers Care Print Machine Operator Name Role Phone JANIS GENET Primary Care Provider Assessment No assessment recorded. Plan of Treatment Reminders Order Date Submit Date Provider Last Modified By Organization Details Last Modified Time Details Appointments Establish ed Visit 15 min 2024 01:45P M Ernesto Amezcua PA-C Not available Not available Not available OV EST 20 2024 10:00A M Aden Husain, DNP, PRESSURE DISPATCHER, CUT AND COVER LINE WORKER-C Not available Not available Not available Lab CBC w/ auto diff 2024 025 [facility], [address], [address], [place], [address], 12/15/2024 14:37:20 CMP, serum or plasma 2024 025 ISAAC [facility], [address], [address], [place], [address], 12/15/2024 14:37:21 TSH + free T4, serum 2024 025 ISAAC [facility], [address], [address], [place], [address], 12/15/2024 14:37:19 HbA1c (hemoglob in A1c), blood 2024 025 [facility]AAC [facility], [address], [address], [place], [address], 12/15/2024 14:37:24 lipid panel, serum 2024 025 ISAAC [facility], [address], [address], [place], [address], 12/15/2024 14:37:22 copper, serum or plasma 2024 025 ISAAC [facility], [address], [address], [place], [address], 12/15/2024 14:37:29 selenium, quantitat silvino, blood 2024 025 ISAAC [facility], [address], [address], [place], [address], 12/15/2024 14:37:31 zinc, serum or plasma 2024 025 ISAAC [facility], [address], [address], [place], [address], 12/15/2024 14:37:30 iron + TIBC + ferritin, serum 2024 025 ISAAC [facility], [address], [address], [place], [address], 12/15/2024 14:37:18 folate, serum 2024 025 ISAAC [facility], [address], [address], [place], [address], 12/15/2024 14:37:24 vitamin E, serum 2024 025 ISAAC [facility], [address], [address], [place], [address], 12/15/2024 14:37:23 vitamin A (retinol) , serum 2024 025 ISAAC [facility], [address], [address], [place], [address], 12/15/2024 14:37:25 prealbumi n, serum 2024 025 ISAAC [facility], [address], [address], [place], [address], 12/15/2024 14:37:30 thiamine, QN, blood 2024 025 ISAAC [facility], [address], [address], [place], [address], 12/15/2024 14:37:27 methylmal jareth, QN, serum or plasma 2024 025 ISAAC [facility], [address], [address], [place], [address], 12/15/2024 14:37:28 vitamin D, 25-hydrox y, total, serum 2024 025 ISAAC [facility], [address], [address], [place], [address], 12/15/2024 14:37:26 Referral None recorded. Procedures None recorded. Surgeries None recorded. Imaging None recorded. Medication Orders None recorded. Patient TargetsNo targets recorded. Patient InstructionsNo instructions recorded. Reason for Referral None Reported. Problems Name Problem SNOMED Code Status Onset Date Resolution Date Notes Provider Name and Address Organization Details Recorded Time Metabolic dysfuncti on-associ ated steatohep atitis 178221917 Active [address], [place], [address] , [facility] & [place] 14:30:35 Gastroeso phageal reflux disease without esophagit is 269231784 Active [address], [place], [address] , [place] - [facility] - [place] & [place] 4 13:48:57 Chronic idiopathi c constipat ion 18485969 Active 2021 Not Available [facility] 3 16:06:44 Gastroeso phageal reflux disease 400722911 Active 2021 Not Available [facility] 3 16:06:44 Diarrhea 38014934 Active 2021 Not Available [facility] 3 16:06:44 Hypokalem ia 28487917 Active 2021 Not Available [facility] 3 16:06:44 Abdominal pain 89810613 Active 2021 Not Available [facility] 3 16:06:44 Myocardia l infarctio n 57670739 Completed 202103/25/2022 Azeb Quesada null, [place] - [facility] - [place] & [place] 2 14:37:03 Fibromyal dominique 100702605 Active 2021 Not Available [facility] 3 16:06:44 Mild dementia 81840213948 4108 Active 2021 Not Available [facility] 3 16:06:44 Chronic obstructi ve pulmonary disease 15086480 Active 2021 Not Available [facility] 3 16:06:44 Hiatal hernia 17097322 Completed 202103/25/2022 Azeb Quesada null, [place] - [facility] - [place] & [place] 2 14:38:57 Chronic depressio n 632672099 Active 2021 Not Available [facility] 3 16:06:44 Obesity 324950346 Active 2021 Ernesto Amezcua PA-C [address], [place], [address] , [place] - [facility] - [place] & [place] 2 14:51:36 Hypertens silvino disorder 44669486 Active 2022 Not Available [facility] 3 16:06:44 Dyslipide franc 996434480 Active 2022 Not Available [facility] 3 16:06:44 Morbid obesity 290676360 Active 2022 Not Available [facility] 3 16:06:44 Dizziness 473357403 Active 2022 Not Available [facility] 3 16:06:44 Intention al weight loss 713977541 Active 2022 Not Available [facility] 3 16:06:44 Constipat ion 19760691 Active 2022 Ernesto Amezcua PA-C [address] , [place], [place], [address] [place] [address] , [place] - [facility] - [place] & [place] 3 15:41:42 Overweigh t 781969525 Active 2023 Aden Husain DNP, PRESSURE DISPATCHER, CUT AND COVER LINE WORKER-C [address] [facility], [place], [place], [address] [place] [address] , [place] - [facility] - [place] & [place] 4 09:57:50 Fatigue 01628007 Active 2023 Aden Husain DNP, PRESSURE DISPATCHER, CUT AND COVER LINE WORKER-C [address] [facility], [place], [place], [address] [place] [address] , [place] [facility] [place] & [place] 4 10:00:39 Liver enzymes level above reference range 963953265 Active 2023 Aden Husain DNP, PRESSURE DISPATCHER, CUT AND COVER LINE WORKER-C [address] [facility], [place], [place], [address] [place] [address] , [place] [facility] - [place] & [place] 4 13:32:45 Low back pain 578971568 Active 2023 Aden Husain DNP, PRESSURE DISPATCHER, CUT AND COVER LINE WORKER-C [address] [facility], [place], [address] [place] [address] , [place] [facility] [place] & [place] 4 15:56:35 Irritable bowel syndrome character ized by constipat ion 328388414 Active 2023 Ernesto Amezcua PA-C [address] [facility], [place], [address] , [place] - [facility] & [place] 09:08:46 Problem Notes None recorded. Procedures Surgical History Date Name Laterality Status Provider Name and Address Organization Details Recorded Time 07/23/[address], [place] [address] [facility], [place], [address], [place] - [facility] & [place] 08/14/2022 16:17:22 05/28/20 21 Date of Last Pap Smear completed RIMMA RAY RD, LD [address] [facility], [place], [address], [place] - [facility] & [place] 08/14/2022 16:17:22 12/20/19 21 Date of Last Colonoscopy completed RIMMA RAY RD, LD [address] [facility], [place], [address], [place] - [facility] & [place] 08/14/2022 16:17:22 11/17/19 20 Most Recent Bone Density completed RIMMA RAY RD, LD [address] [facility], [place], [address], [place] - [facility] & [place] 08/14/2022 16:17:22 Appendectomy completed Not Available [facility] 13:08:39 extraction of wisdom tooth completed Not Available [facility] 08/10/2022 13:08:39 lithotripsy completed Not Available [facility] 07/14 13:08:39 Colonoscopy completed Marychuy Quesada [place] - [facility] & [place] 08/13/2022 11:21:25 EGD completed Marychuy Quesada [place] - [facility] & [place] 08/13/2022 11:21:36 Gastric Bypass completed Dipesh Dow [place] - [facility] & [place] 12/29/2022 08:20:27 Imaging Results None recorded. Procedure Notes None recorded. Medical Equipment None Reported. Allergies Allergen ID Allergen Name Allergen Category Reaction Reaction Severity Criticality Documentation Date Start Date Code Code System Note Provider Name and Address Organization Details Recorded Time 30065 Product kiritin ken penicilli n (product) medicatio n Not available Not available Not available 03/25/2022 03281 8001 SNOMED Azeb Quesada [facility], [facility] & [place] 2 14:01:10 531014 indometha gen medicatio n Not available Not available Not available 06/19/2024 5781 RxNorm Other react ions and sever ities : 'Adve rse react ion to subst ance' . Kary aguillon, [facility] & [place] 4 14:05:45 441515 penicilli n V Not available Not available Not available Not available 06/19/2024 7984 RxNorm Other react ions and sever ities : 'Anap hylax is due to subst ance' . [facility] [place] 4 14:05:45 584357 milnacipr an medicatio n Not available Not available Not available 06/19/2024 09738 0 RxNorm Other react ions and sever ities : 'Adve rse react ion to subst ance' . Kary aguillon, [facility] & [place] 4 14:05:45 75561 [place] medicatio n Not available Not available Not available 08/13/2022 49991 6 RxNorm Marychuy Quesada [facility] 3 11:18:57 Medications Name Sig Start Date [...] cm 98.1 [degF] 75 /min 24.8 kg/m2 29192.7 4 g 96 mm[Hg] 70 mm[Hg] Araceli Velasquez [facility] & [place] 5 09:01:03 Social History Question Answer Notes LastModified by IPG ion Details LastModified Time Tobacco Smoking Status Former Smoker quit 3 years ago Araceli Velasquez [facility] & [place] 09/06/2023 09:49:34 Do You Have An Advance Directive? No [email or web address] Information not available 08/14/2022 Are You Blind Or Do You Have Difficulty Seeing? No [email or web address] Information not available 08/14/2022 What Was The Date Of Your Most Recent Tobacco Screening? 08/10/2022 [email or web address] Information not available 08/14/2022 Are You Passively Exposed To Smoke? No [email or web address] Information not available 08/14/2022 How Much Tobacco Do You Smoke? No [email or web address] Information not available 08/14/2022 Sex: Male Functional Status Question Answer Note LastModified by Organizat ion Details LastModified Time Do you use any illicit or recreational drugs? No [email or web address] Information not available 08/10/2022 What is your level of alcohol consumption? None [email or web address] Information not available 08/10/2022 Do you or have you ever used smokeless tobacco? Never used smokeless tobacco [email or web address] Information not available 08/14/2022 What is your exercise level? None [email or web address] Information not available 08/14/2022 Mental Status Question Answer Note LastModified by Organization D etails LastModified Time Do you feel stressed (tense, restless, nervous, or anxious, or unable to sleep at night)? [id number] [email or web address] Information not available 08/14/2022 Family History Relationship Description Onset Age of this Age Resolved Age Notes LastModified by Organization Details LastModified Time Father Obesity [email or web address] Not availa ble 08/10/2022 08:30:50 Father Diabetes mellitus [email or web address] Not available 2024 14:11:10 Father Hypertensive disorder [email or web address] Not available 08:31:23 Father Heart disease [email or web address] Not available 08:31:48 Father Cerebrovascu lar accident [email or web address] Not available 08/10/2022 08:32:04 Father Hypercholest erolemia [email or web address] Not available 08:32:27 Father Asthma [email or web address] Not available 12/27/2024 14:11:10 Father Allergy pt. added direct ly (08/10) [email or web address] Not available 08/10/2022 13:04:20 Father Disorder of endocrine system pt. added direct ly (08/10) [email or web address] Not available 08/10/2022 13:07:54 Maternal Grandmother Obesity [email or web address] Not available 0 08/10/2022 08:30:50 Maternal Grandmother Hypertensive disorder Not available 08:31:23 Maternal Grandmother Heart disease [email or web address] Not available 08:31:49 Mother Hypertensive disorder [email or web address] Not available 08:31:23 Mother Heart disease [email or web address] Not available 08:31:48 Mother Cerebrovascu lar accident [email or web address] Not available 08/10/2022 08:32:04 Mother Hypercholest erolemia [email or web address] Not available 08:32:27 Mother Allergy pt. added direct ly (08/10) [email or web address] Not available 08/10/2022 13:04:20 Brother Hypertensive disorder [email or web address] Not available 08:31:23 Brother Heart disease [email or web address] Not available 08:31:49 Brother Hypercholest erolemia [email or web address] Not available 08:32:27 Brother Cerebrovascu lar accident pt. added direct ly (09/03) [email or web address] Not available 09/03/2023 11:07:40 Sister Hypertensive disorder [email or web address] Not available 08:31:23 Sister Hypercholest erolemia [email or web address] Not available 08:32:27 Maternal Grandfather Heart disease [email or web address] Not available 08:31:49 Maternal Uncle Allergy pt. added direct ly (08/10) [email or web address] Not available 08/10/2022 13:04:20 Paternal Grandmother Obesity pt. added direct ly (08/10) [email or web address] Not available 08/10/2022 13:08:19 Medical History Condition Response Gout N Other Y Kidney Stones Y COPD Y Depression Y Osteoporosis/Osteopenia Y Constipation Y Spine Problems Y Heart Attack (ME) Y Obstructive Sleep Apnea Y Anxiety Disorder [...] virus, quadrivalent, preservative 7 completed Not Available [facility] 01/01/2023 16:06:44 Influenza, recombinant, quadrivalent, PF 1 completed Not Available [facility] 01/01/2023 16:06:44 Influenza, recombinant, quadrivalent, PF 0 completed Not Available [facility] 01/01/2023 16:06:44 zoster recombinant 1 completed Not Available [facility] 01/01/2023 16:06:44 zoster recombinant 1 completed Not Available [facility] 01/01/2023 16:06:44 MMR 6 completed Not Available [facility] 01/01/2023 16:06:44 COVID-19, mRNA, LNP-S, PF, 100 mcg/0.5mL dose or 50 mcg/0.25mL dose 1 completed Not Available [facility] 01/01/2023 16:06:44 COVID-19, mRNA, LNP-S, PF, 100 mcg/0.5mL dose or 50 mcg/0.25mL dose 1 completed Not Available [facility] 01/01/2023 16:06:44 COVID-19, mRNA, LNP-S, PF, 100 mcg/0.5mL dose or 50 mcg/0.25mL dose 1 completed Not Available [facility] 01/01/2023 16:06:44 Pneumococcal conjugate PCV20, polysaccharide QFD013 conjugate, adjuvant, PF 2 completed Not Available [facility] 01/01/2023 16:06:44 pneumococcal polysaccharide PPV23 1 completed Not Available [facility] 01/01/2023 16:06:44 pneumococcal polysaccharide PPV23 7 completed Not Available [facility] 01/01/2023 16:06:44 Influenza, split virus, quadrivalent, PF 9 completed Not Available [facility] 01/01/2023 16:06:44 Influenza, split virus, quadrivalent, PF 2 completed Not Available [facility] 01/01/2023 16:06:44 Influenza, split virus, quadrivalent, PF 8 completed Not Available [facility] 01/01/2023 16:06:44 influenza, unspecified formulation 4 completed Kary aguillon, [place] - [facility] - [place] & [place] 08/08/2024 13:51:39 Respiratory syncytial virus (RSV) MAB, unspecified 4 completed Araceli Velasquez null, [place] - [facility] & [place] 06/06/2024 09:21:15 Influenza, high-dose, quadrivalent, PF 3 completed Karyanika Rust null, [place] [facility] [place] & [place] 08/08/2024 13:51:39 RSV, recombinant, protein subunit RSVpreF, adjuvant reconstituted, 0.5 mL, PF 4 completed Kary Rust null, [place] - [facility] & [place] 08/08/2024 13:51:39 Influenza, high-dose, trivalent, PF 4 completed Kary Rust null, [place] - [facility] & [place] 08/08/2024 13:51:39 Past Encounters Encounter ID Performer Location Encounter Start Date Encounter Closed Date Diagnosis/Indication Diagnosis SNOMED-CT Code Diagnosis ICD10 Code Diagnosis Note [id number] Aden Husain, DNP, PRESSURE DISPATCHER, CUT AND COVER LINE WORKER-C [facility] s and Adv Surg [address] [place] [address] 12/08/2024 08:48:35 12/08/2024 09:28:10 History of bariatric surgical procedure 336619261 Z98.84 Intentiona l weight loss 043387161 R63.8 History of gastrectomy 354415236 Z90.3 Advised qid intake 50% protein 2819-7168 calories/d y less than 100 carbs/dy Long [...] to correct any vitamin deficienci es. At [facility] ed risk of nutritional deficit 681763552 Z91.89 Dyslipidemia 631669397 E 78.5 Hypertensive disorder 38 342414 I10 Overweight 125445987 E66 .3 Health Concerns Section Related Observation LastModified by Organization Detai ls LastModified Time None Recorded Concern Status LastModified by Organization Details LastModified Time None Recorded Payers Encounter Date Sequence Insurance Name Policy Number Policy Acosta Covered Member ID Acosta Member ID Guarantor Name 12/08/2024 2 [employer] (MEDICARE SUPPLEMENT) Maria Isabel Doran [id number] Maria Isabel Doran 12/08/2024 1 [place] Maria Isabel Doran [id number] Maria Isabel Doran Notes Date Note Type Note Provider Name and Address Organization Details Recorded Time 12/08/2024 text/html Patient presents the office today for routine 24 month follow-up status post bariatric gastric RNY gastric bypass surgery performed on 2022. Patient doing well. Reports q.i.d. small meal intake. Reports 90g/dy protein intake and good hydration.Patient is drinking 64 ounces of water a day.Daily Calories 1000-1200Taking routine vitamins as advised.Heartburn /gastroesophageal reflux: deniesPt Denies : abdominal pain, prandial [...] Rate = 1261 kilo calories Aden Husain, CAMMIE, PRESSURE DISPATCHER, CUT AND COVER LINE WORKER-C [address], [place], [address], [facility] - [place] - [place] & [place] 12/08/2024 09:20:24 OBGyn Episode No OBEpisode recorded.
--- OUTSIDE RECORDS SUMMARY | 2024-12-30 09:35 | XMS_ITS | Clinical Summary ---
Author Organization [facility] Address [address] [place] [address] Care Team Providers Care Chest Painting Leader Name Role Phone Saul Benitez MD Primary Care Provider [phone] Family History Medical History Relation Name Comments Cardiac disorder Father Conversions - Other Father Blood cl otting disorder Diabetes Father Other cancer Father Cardiac disorder Mother Relation Name Status Comments Father Mother Social History Tobacco Use Types Packs/Day Years Used Date Smoking Tobacco: Every Day Comments Unknown Sex and Gender Information Value Date Recorded Sex Assigned at Not on file Legal Sex Female 6:01 PM EDT Gender Identity Not on file Sexual Orientation Not on file Plan of Treatment Not on file Care Teams Chest Painting Leader Relationship Specialty Start Date End Date Saul Benitez MD [address] [place] [address] PCP - General 11/22/20
== END 2024-12-30 23:59 | disposition home or self-care (01) ==
LOC: RAD 09:31
PROVIDERS: PCP Family Medicine; Visit Provider Physician Assistant
DX: R91.8 Other nonspecific abnormal finding of lung field (principal); R09.02 Hypoxemia
CPT/HCPCS: 71046

== ENCOUNTER 2025-01-02 10:51 | Outpatient (CLI) | payer MEDICARE, SELFPAY ==
--- OUTSIDE RECORDS SUMMARY | 2024-12-29 12:00 | XMS_ITS ---
Author Organization [facility] Address [address] [facility] [address] [place] [id number] Care Team Providers Care Java Sybase Developer Name Role Phone Jeyson Benitez Primary Care Provider China Sánchez [phone] Allergies Allergen (clinical drug ingredient) Drug/Non Drug Allergy documented on EMR Reaction Allergy Type Onset Date Status indomethacin Indomethacin disoriented Drug Allergy Active milnacipran Savella memory loss and excessive drowsiness Drug Allergy Active Penicillin anaphylaxis Drug Allergy Acti ve Results Component Value Reference Range Notes Influenza Screen (in house) (Not yet reviewed by provider) Interpretation:neg Performing Lab: Notes/Report: neg results neg CBC Fingerstick (in house) ( Not yet reviewed by provider) Interpretation: Performing Lab: Notes/Report: wbc 12.9 3.5 - 10 lym 5.5 15 - 50 mid 2.0 2 - 15 gran 92.5 35 - 80 rbc 4.27 3.5 - 5.5 hgb 12.9 11.5 - 16.5 hct 39.1 35 - 55 mcv 91.5 75 - 100 mch 30.2 25 - 35 mchc 33.0 31 - 38 plat 151 100 - 400 Covid test (in house) (Not y et reviewed by provider) Interpretation:neg Performing Lab: Notes/Report: neg Result: neg CXR Reviewed date:01/02/2025 12:54:22 AM Interpretation: Performing Lab: Notes/Report: REASON FOR VISIT chills, not feeling well Medications Medication SIG (Take, Route, Frequency, Duration) Notes Start Date End Date Status Linzess 290 MCG 1 capsule at least 3 0 minutes before the first meal of the day on an empty stomach Orally Once a day for 30 day(s) Active LORazepam 1 MG 1 tablet at bedtime as needed Orally Once a day Active Vitamin D3 50 MCG (1999) 1 tablet Orally Once a day for 30 day(s) Active Nitroglycerin 0.4 MG 1 tab(s) sublingual ly q 5min prn x 3 Active Melatonin 5 MG 1 tablet at bedtime as needed Orally qhs Active Baclofen 10 MG 1 tablet as needed Orally Twice a day Active Doxycycline Hyclate 100 MG 1 tablet Orally Two times a day 10/19/2024 Not-Taking Flonase Allergy Relief 50 MCG/ACT 1 spray in each nostril Nasally Twice a day Active Montelukast Sodium 10 MG 1 tablet Orally Once a day 02/29/2024 Active Cefdinir 300 MG 1 cap(s) Orally Two times a day for 10 days 12/29/2024 Active oxyBUTYnin Chloride ER 10 MG TAKE 1 TABLET BY MOUTH ONCE DAILY for 90 days Active Atorvastatin Calcium 40 MG TAKE 1 TABLET BY MOUTH ONCE DAILY for 90 Active Venlafaxine HCl ER 225 MG TAKE 1 TABLET BY MOUTH ONCE DAILY WITH FOOD for 30 Active lamoTRIgine 150 MG TAKE 1 TABLET BY DOV TWICE DAILY for 90 Active Pantoprazole Sodium 40 MG TAKE 1 TABLET BY MOUTH TWICE DAILY for 90 Active hydrOXYzine HCl 10 MG as directed Orally Two times a day for 90 days Active traZODone HCl 100 MG TAKE 1 TABLET BY [facility] ONCE DAILY AT BEDTIME for 90 Active Calcium Citrate 150 MG 2 capsules Orally Once a day for 90 days Active SUMAtriptan Succinate 50 MG TAKE 1 TABLET BY MOUTH WITH ONSET OF HEADACHE. MAY REPEAT 1 TIME AFTER 2 HOURS. MAX 2 TABLETS IN 24 HOURS. for 12 days Active Estrace 0.1 MG/GM 1 gm Vaginal 3 times per week 07/13/2024 Active Isosorbide Dinitrate 30 MG 1 tablet Orally once daily for 90 days Active Prolia 60 MG/ML as directed subcutaneously every 6 months for 12 month(s) Active QUEtiapine Fumarate ER 150 MG 1 tablet in the evening Orally Once a day Active Aspirin 81 MG 1 tab(s) orally once a day for 30 day(s) Active CareTouch CPAP & BIPAP Hose 1 DIRECTED Active Multivitamin - 1 tab(s) orally once a day w/ Iron Active Vital Signs Weight 148.4 lbs 12/29/2024 Blood pressure systolic 110 mm Hg 12/30/19 25 Blood pressure diastolic 60 mm Hg 025 Heart Rate 75 /min 12/29/2024 Height 65 in 12/29/2024 BMI 24.69 kg/m2 12/29/2024 Encounters Encounter Location Date Provider Diagnosis [facility] [address] [place] [id number] 12/29/2024 China Sánchez Hypoxia R09.02 ; Dysuria R30.0 and Chills R68.83 Assessments Encounter Date Diagnosis (ICD Code) Assessment Notes Treatment Notes Treatment Clinical Notes Section Notes 12/29/2024 Hypoxia (ICD-10 - R09.02) Patient's oxygen is low. Will get a CXR and she will go home and put on her oxygen. She has a pulse oximeter. If she is using 2L and her oxygen is still low, or if she gets worse, she will go to the ER. 12/29/2024 Dysuria (ICD-10 - R30.0) Patient was unable to get a urine sample. She will try to bring one back to the office. WBC is elevated. Will start on abx and increase fluid intake. 12/29/2024 Chills (ICD-10 - R68.83) Plan Of Treatment Medication Medication Name Sig Start Date Stop Date Notes Cefdinir 300 MG 1 cap(s) Orally Two times a day for 10 days 12/29/2024 Treatment Notes Assessment Notes Hypoxia Patient's oxygen is low. Will get a CXR and she will go home and put on her oxygen. She has a pulse oximeter. If she is using 2L and her oxygen is still low, or if she gets worse, she will go to the ER. Dysuria Patient was unable t o get a urine sample. She will try to bring one back to the office. WBC is elevated. Will start on abx and increase fluid intake. Pending Test Test Name Order Date Influenza Screen (in house) 12/29/2024 CBC Fingerstick (in house) 12/29/2024 Covid test (in house) 12/29/2024 Next Appt Details Follow Up: Wednesday and via p true to report test results, Reason: Progress Notes * BURT DORANOB:[birth year] (69 yo F)Acc No.[id number]:12/29/2024 Progress Notes Patient: WENDY ESCAMILLA Provider: RANI Dumont :1955 A ge:69 Y S ex:Female Date:12/29/2024 Address:[address] [place] [address] [place], [id number] Pcp:Jeyson Benitez Subjective: * Chief Complaints: * 1 . Chills, not feeling well. * HPI: E NT/respiratory: 69 year old female presents with c/o Fever w ith chills. Hot and cold with chills off and on for 3 days, but sts it has gotten worse. Pt sts she has taken Tylenol and Ibuprofen. c/o Short of Breath. c/o headache. Denies : sore throat. D enies : cough. D enies : ear pain. D enies : body aches. C ardiology: c/o Short of Breath. c/o Dizziness. c/o Blood Pressure Elevated P t sts her BP has been very high. c/o Weakness. H PI: c/o Patient is here today for P t's sts she was seen at Dr. Ball office yesterday and sts she was very sick. He is going to biopsy her liver.. U rology: c/o burning sensation. L ower back: c/o Low Back Pain. * ROS: D ERMATOLOGY: no R chanell. n o H sherrie. G ASTROENTEROLOGY: no N ausea. n o V omiting. D iarrhea y es.? U ROLOGY: no D ifficulty urinating. n o B lood in urine. 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 Cath showed on [...] Ball 11/2020. * Hospitalization/Major Diagno stic Procedure: [facility] ER-diarrhea 03/2011, [facility] ER-back pain 06/2012, [facility]-heart attack 12/31/2014, [place] ER-constipation/impaction 09/2015, [place] ER-diarrhea 11/2015, [place] ER-Bronchitis 03/2018, Drs office in [place]-possible UTI, tested negative 12/2019. * Family History: F ather: . M other: alive. 2 brother(s) , 1 sister(s) . 1 son(s) , 1 daughter(s) . . * Social History: C URRENT TOBACCO USE S moking Status: P atient does NOT smoke quit after [place] 12/2014.?Caffeine: yes, frequency:. Home smoke detector use: yes. Marital Status: . 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 Past smoking status: PPD: 1, years:30 ,determination:. Alcohol: no. * Medications: T aking Montelukast Sodium 10 MG Tablet 1 tablet Orally Once a day , Taking Flonase Allergy Relief 50 MCG/ACT Suspension 1 spray in each nostril Nasally Twice a day , Taking Baclofen 10 MG Tablet 1 tablet as [...] capsules Orally Once a day , Taking traZODone HCl 100 MG Tablet TAKE 1 TABLET BY MOUTH ONCE DAILY AT BEDTIME , Taking Estrace 0.1 MG/GM Cream 1 gm Vaginal 3 times per week , Taking SUMAtriptan Succinate 50 MG Tablet TAKE 1 TABLET BY MOUTH WITH ONSET OF HEADACHE. MAY REPEAT 1 TIME AFTER 2 HOURS. MAX 2 TABLETS IN 24 HOURS. , Taking Pantoprazole Sodium 40 MG Tablet Delayed Release TAKE 1 TABLET BY MOUTH TWICE DAILY , Taking Atorvastatin Calcium 40 MG Tablet TAKE 1 TABLET BY MOUTH ONCE DAILY , Taking oxyBUTYnin Chloride ER 10 MG Tablet Extended Release 24 Hour TAKE 1 TABLET BY MOUTH ONCE DAILY , Taking lamoTRIgine 150 MG Tablet TAKE 1 TABLET BY MOUTH TWICE DAILY , Taking Venlafaxine HCl ER 225 MG Tablet Extended Release 24 Hour TAKE 1 TABLET BY MOUTH ONCE DAILY WITH FOOD , Not-Taking Doxycycline Hyclate 100 MG Tablet 1 tablet Orally Two times a day , Medication List reviewed and reconciled with the patient * Allergies: P enicillin: anaphylaxis, Savella: memory loss and excessive drowsiness, Indomethacin: disoriented. Objective: * Vitals: W t: 148.4, Temp: 97.6, BP: 110/60, HR: 75, O2 Sat: 86% on RA, Nurse: kenn, Ht: 65, BMI:24.69. * Examination: G eneral Examination: General Appearance: N AD. HEENT: u nremarkable. Oral cavity: n o lesions, mucosa dry, no erythema. Neck: s upple, no lymphadenopathy. Chest: n ormal shape and expansion. Heart: R SR. Lungs: c lear to auscultation. Abdomen: b owel sounds present, soft and nontender. Neurologic Exam: I ntact, gait normal. Skin: n ormal, no rash. Peripheral pulses: n ormal (2+) bilaterally. Extremities: n o leg edema. Assessment: * Assessment: 1. H ypoxia - R09.02 (Primary) 2 . D ysuria - R30.0 3 .?Chills - R68.83 Plan: * Treatment: Value Reference Range r esults neg * Miranda Carrizales 12/29/2024 04:2 6:37 PM EDT > Provider reviewed results while patient in office. ?LAB: CBC Fingerstick (in house) (Collection Date & Time - 12/29/2024)* Value Reference Range w bc 12.9 3.5 - 10 * l ym 5.5 15 - 50 * m id 2.0 2 - 15 * g ran 92.5 35 - 80 * r bc 4.27 3.5 - 5.5 * h gb 12.9 11.5 - 16.5 * h ct 39.1 35 - 55 * m cv 91.5 75 - 100 * m ch 30.2 25 - 35 * m chc 33.0 31 - 38 * p lat 151 100 - 400 * Miranda Carrizales 12/29/2024 04:1 8:09 PM EDT > Provider reviewed results while patient in office. ?LAB: Covid test (in house) (Collection Date & Time - 12/29/2024)?neg* Value Reference Range R esult: neg * Miranda Carrizales 12/29/2024 04:2 6:56 PM EDT > Provider reviewed results while patient in office. ?Imaging: CXR (Performed Date - 12/30/2024)* China Sánchez 01/02/2025 1 2:53:20 AM EDT >see TE Notes: Patient's oxygen is low. Will get a CXR and she will go home and put on her oxygen. She has a pulse oximeter. If she is using 2L and her oxygen is still low, or if she gets worse, she will go to the ER.??2.?Dysuria? Start Cefdinir Capsule, 300 MG, 1 cap(s), Orally, Two times a day, 10 days, 20 Capsule, Refills 0. ? Notes: Patient was unable to get a urine sample. She will try to bring one back to the office. WBC is elevated. Will start on abx and increase fluid intake.?? * Procedure Codes: 3 0491 CAPILLARY BLOOD DRAW, 85768 CBC WITH AUTO DIFF, 14853 Flu Test- Nasal Swab, Modifiers: QW , 52674 COVID TEST IN HOUSE, Modifiers: QW * Follow Up: T and via phone to report test results * Billing Information: * Visit Code: 49492 Office Visit, Est Pt., Level 4. * Procedure Codes: 13408 CAPILLARY BLOOD DRAW. 65614 CBC WITH AUTO DIFF. 62241 Flu Test- Nasal Swab. Modifiers: QW 04297 COVID TEST IN HOUSE. Modifiers: QW * Electronic signature of RANI Umanzor on 01/02/2025 at 10:55 AM EDT Sign off status: Pending * Provider: RANI Dumont Date: 0 12/29/2024 Generated for Adai ng/Favalentinag/eTransmitting on: 0 01/02/2025 10:55 AM EDT History and Physical Notes * HPI (History of Present Illness) Category Sub-Category Detail Notes Category Not es ENT/respiratory sore throat ear pain Short of Breath cough Fever with chills. Hot and cold with chills off and on for 3 days, but sts it has gotten worse. Pt sts she has taken Tylenol and Ibuprofen headache body aches Cardiology Short of Breath Dizziness Blood Pressure Elevated Pt sts her BP [place] s been very high Weakness Lower back Low Back Pain Urology burning sensation HPI Patient is here today for Pt's h usband sts she was seen at Dr. Ball office yesterday and sts she was very sick. He is going to biopsy her liver. Examination Category Sub-Category Detail Notes Category Not es General Examination HEENT: unremarkable Heart: RSR Lungs: clear to auscultatio n Abdomen: bowel sounds present , soft and nontender Extremities: no leg edema General Appearance: NAD Skin: normal, no rash Neurologic Exam: Intact, gait normal Neck: supple, no lymphaden opathy Oral cavity: no lesions, mucosa d ry, no erythema Peripheral pulses: normal (2+) bilatera lly Chest: normal shape and exp ansion
--- OUTSIDE RECORDS SUMMARY | 2024-12-30 05:30 | XMS_ITS ---
Author Organization [facility] Address [address] [facility] [address] [place] [phone] Care Team Providers Care Mail Processing Equipment Mechanic Name Role Phone Jeyson Benitez Primary Care Provider [phone] China Sánchez Unavailable [phone] Results Component Value Reference Range Notes Urinalysis - Inhouse (Not ye t reviewed by provider) Interpretation: Performing Lab: Notes/Report: Color/Clarity yellow/cloudy Leuk 3+ Nitrite Neg Urobili 3.2 Protein 2+ pH 5.5 Blood 1+ Sp. Gr. 1.015 Ketone Trace Bili 1+ Gluc Neg REASON FOR VISIT Urine sample Medications Medication SIG (Take, Route, Frequency, Duration) Notes Start Date End Date Status Venlafaxine HCl ER 225 MG TAKE 1 TABLET BY MOUTH ONCE DAILY WITH FOOD for 30 Active Cefdinir 300 MG 1 cap(s) Orally Two times a day for 10 days 12/29/2024 Active oxyBUTYnin Chloride ER 10 MG TAKE 1 TABLET BY MOUTH ONCE DAILY for 90 days Active lamoTRIgine 150 MG TAKE 1 TABLET BY DOV TWICE DAILY for 90 Active Atorvastatin Calcium 40 MG TAKE 1 TABLET BY MOUTH ONCE DAILY for 90 Active SUMAtriptan Succinate 50 MG TAKE 1 TABLET BY MOUTH WITH ONSET OF HEADACHE. MAY REPEAT 1 TIME AFTER 2 HOURS. MAX 2 TABLETS IN 24 HOURS. for 12 days Active Pantoprazole Sodium 40 MG TAKE 1 TABLET BY MOUTH TWICE DAILY for 90 Active traZODone HCl 100 MG TAKE 1 TABLET BY [facility] ONCE DAILY AT BEDTIME for 90 Active Estrace 0.1 MG/GM 1 gm Vaginal 3 times per week 07/13/2024 Active hydrOXYzine HCl 10 MG as directed Orally Two times a day for 90 days Active Calcium Citrate 150 MG 2 capsules Orally Once a day for 90 days Active QUEtiapine Fumarate ER 150 MG 1 tablet in the evening Orally Once a day Active Isosorbide Dinitrate 30 MG 1 tablet Orally once daily for 90 days Active Aspirin 81 MG 1 tab(s) orally once a day for 30 day(s) Active Melatonin 5 MG 1 tablet at bedtime as needed Orally qhs Active Nitroglycerin 0.4 MG 1 tab(s) sublingual ly q 5min prn x 3 Active Prolia 60 MG/ML as directed subcutaneously every 6 months for 12 month(s) Active Multivitamin - 1 tab(s) orally once a day w/ Iron Active CareTouch CPAP & BIPAP Hose 1 DIRECTED Active Vitamin D3 50 MCG (1999 UT) 1 tablet Orally Once a day [...] Once a day for 30 day(s) Active Flonase Allergy Relief 50 MCG/ACT 1 spray in each nostril Nasally Twice a day Active Montelukast Sodium 10 MG 1 tablet Orally Once a day 02/29/2024 Active Encounters Encounter Location Date Provider Diagnosis [facility] [place] [address], [place] [id number] 12/30/2024 China Sánchez Dysuria R30.0 Assessments Encounter Date Diagnosis (ICD Code) Assessment Notes Treatment Notes Treatment Clinical Notes Section Notes 12/30/2024 Dysuria (ICD-10 - R30.0) Plan Of Treatment Pending Test Test Name Order Date Urinalysis - Inhouse 12/30/2024 P-Culture, Urine 12/30/2024 Progress Notes * BURT DORANOB:[birth year] (69 yo F)Acc No.[id number]:12/30/2024 Patient: WENDY ESCAMILLA Provider: RANI Dumont :1955 A ge:69 Y S ex:Female Date:12/30/2024 Address:[address] [place] [address] [id number] Pcp:Jeyson Benitez Subjective: * Chief Complaints: * [...] day , Taking Vitamin D3 50 MCG (1999) Tablet 1 tablet Orally Once a day [...] once a day , Notes to Pharmacist: gasper Bass, Taking CareTouch CPAP & BIPAP Hose MACHINE [...] Pamela Trujillo 12/30/2024 09:58: 46 AM EDT > * Procedure Codes: 8 1002 Urinalysis, no micro * Billing Information: * Visit Code: * Procedure Codes: 55879 Urinalysis, no micro. * Electronic signature of RANI Umanzor on 01/02/2025 at 10:54 AM EDT Sign off status: Pending * Provider: RANI Dumont Date: 12/30/2024 Generated for Elkin castillo/Aram/Clem on: 01/02/2025 10:54 AM EDT
--- NOTE | 2025-01-02 10:55 | CT_ITS ---
FINAL REPORT TECHNIQUE: Noncontrast CT exam of the abdomen and pelvis. This study was performed with techniques to keep radiation doses as low as reasonably achievable (ALARA). Individualized dose reduction techniques using automated exposure control or adjustment of mA and/or kV according to the patient's size were employed. CLINICAL HISTORY: FLANK PAIN, HEMATURIA COMPARISON: None FINDINGS: Abdomen: A trace left pleural effusion is present. Liver, spleen, pancreas and adrenal glands have a normal CT appearance in their limited unenhanced state. There is evidence of a prior gastric bypass. The gallbladder is normal in appearance. The kidneys show no stone disease or obstruction. There is a right renal mass in the lower pole of the right kidney measuring 25 mm in size, which is not well-characterized secondary to lack of intravenous contrast. Ureteral stones are present. There is mild perinephric stranding present, which is nonspecific but a UTI is not excluded. Pelvis: No distal ureteral stones are seen. Bladder is decompressed. No fluid collection or adenopathy is seen. The uterus is normal for age. Moderate to diffuse fecal impaction is identified. IMPRESSION: 1. No evidence of upper urinary tract stone disease or obstruction 2. Mild perinephric stranding, nonspecific however UTI is not excluded. 3. Lower pole right renal mass, 25 mm, not well-characterized without intravenous contrast. Reviewed, Interpreted and Dictated by Marie Kimball MD Transcribed by Belkys Amezcua Authenticated and . [facility]
--- OUTSIDE RECORDS SUMMARY | 2025-01-02 10:55 | XMS_ITS | Patient Health Record ---
Author Organization [facility] Address [address] [facility] [address] [place] [id number] Care Team Providers Care Brake Coupler Dinkey Name Role Phone Jeyson Benitez Primary Care Provider [phone] Sang Regan Unavailable [phone] Marlena Antonio Unavailable [phone] China Sánchez Unavailable [phone] Allergies Allergen (clinical drug ingredient) Drug/Non Drug [...] 1.010 Ketone neg Bili neg Gluc neg P-Vitamin B1 (Thiamine), Ser um/Plasma, LC/MS/MS Reviewed [...] developed and its performance characteristics determined by [facility]. It has not been cleared or approved by the US Food and Drug Administration. This test was performed in a CLIA certified laboratory and is intended for clinical purposes. Performed By: [facility] [address] [place] [address] Leno Sewer: Cesar Arnold MD, PhD CLIA Number: [id number] Urinalysis - Inhouse Reviewed date:07/13/2024 01:20:35 PM [...] - 38 plat 202 100 - 400 CXR Reviewed date:01/02/2025 12:54:22 AM Interpretation: Performing Lab: Notes/Report: Urinalysis - Inhouse (Not ye t reviewed by provider) Interpretation: Performing Lab: Notes/Report: Color/Clarity yellow/cloudy Leuk 3+ Nitrite Neg Urobili 3.2 Protein 2+ pH 5.5 Blood 1+ Sp. Gr. 1.015 Ketone Trace Bili 1+ Gluc Neg P-Hemoglobin A1C Reviewed date:06/29/2024 04:17:23 PM Interpretation:Normal Performing Lab: Notes/Report: Test performed by [facility], [facility] [address] [place] [address] , [address], [place] [address] Tim Parrish MD, Leno Sewer CLIA: [id number] Hemoglobin A1C 5.4 <5.7 % The following HbA1c ranges recommended by the [place] [employer] (ADA) may be used as an aid in the diagnosis of diabetes mellitus. HbA1c Suggested Diagnosis >=6.5% Diabetic 5.7% - 6.4% Pre-Diabetic <5.7% Non-Diabetic Miscell Ref Lab Test Reviewed date:06/29/2024 10:43:23 AM Interpretation: Normal Performing Lab: Notes/Report: Test Cancelled Test Cancelled Other Percent Saturation Reviewed date:06/29/2024 04:17:23 PM Interpretation:Normal Performing Lab: Notes/Report: Test performed by [facility] [address] [place], [place] [id number] [place] [address] Tim Parrish MD, Leno Sewer CLIA: [id number] Percent Saturation 29 15-50 % Estimated Average Glucose Reviewed date:06/29/2024 04:17:23 PM Interpretation:Normal Performing Lab: Notes/Report: Test performed by [facility] [address] [place], [place] [address] [place] [address] Tim Parrish MD, Leno Sewer CLIA: [id number] Estimated Average Glucose (eAG) 108 Estimated Average [...] date:06/29/2024 10:43:05 AM Interpretation: Performing Lab: Notes/Report: Covid test (in house) (Not y et reviewed by provider) Interpretation:neg Performing Lab: Notes/Report: neg Result: neg CBC Fingerstick (in house) ( Not [...] - 38 plat 151 100 - 400 Influenza Screen (in house) (Not yet reviewed by provider) Interpretation:neg Performing Lab: Notes/Report: neg results neg Holter Monitor- 48 hour Reviewed date:08/15/2024 08:13:51 AM Interpretation:NSR Performing Lab: Notes/Report: NSR CBC Fingerstick (in house) Reviewed date:10/19/2024 08:08:25 [...] - 38 plat 215 100 - 400 CBC Fingerstick (in house) Reviewed date:08/28/2024 08:12:23 [...] - 38 plat 256 100 - 400 P-Zinc, Serum/Plasma Reviewed date:06/29/2024 04:17:23 PM Interpretation:Normal Performing Lab: Notes/Report: Zinc, Serum/Plasma 98 60-130 mcg/dL Test developed and its analytical performance characteristics have been determined by [facility] [place]. It has not been cleared or approved by the U.S. Food and Drug Administration. This assay has been validated pursuant to the CLIA regulations and is used for clinical purposes. Test Performed By [facility] [place] , CLIA [id number] [facility] [place] [id number] [place], [place], Filipe Meier MD PhD P-Vitamin B1 (Thiamine), Ser um/Plasma, LC/MS/MS Reviewed date:06/29/2024 04:17:23 PM Interpretation:Normal Performing Lab: Notes/Report: Test Cancelled Test Cancelled TNP - Incor rect Specimen. Unable to perform due to incorrect specimen submission P-Vitamin D 25-Hydroxy Reviewed date:06/29/2024 04:17:23 PM Interpretation:Normal Performing Lab: Notes/Report: Test performed by [facility] [address] [place] [address] , [address], [place] [address] Tim Parrish MD, Leno Sewer CLIA: [id number] Vitamin D 25-Hydroxy 65.0 30.0-100.0 ng/mL Interpretation of Vitamin D 25 OH: < 20 ng/mL - Deficiency 20 - 29 ng/mL - Insufficiency 30 - 100 ng/mL - Sufficiency > 100 ng/mL - Super-therapeutic- toxicity may occur above this level. Clinical correlation required. P-Vitamin A (Retinol), Serum Reviewed date:06/29/2024 04:17:23 PM Interpretation:Normal Performing Lab: Notes/Report: Test Cancelled Test Cancelled TNP - Incor rect Specimen. Unable to perform due to incorrect specimen submission P-TSH Reviewed date:06/29/2024 04:17:23 PM Interpretation:Normal Performing Lab: Notes/Report: Test performed by [facility] [address] [place], [place] [id number] , [address], [place] [address] Tim Parrish MD, Leno Sewer CLIA: [id number] TSH 1.08 0.43-5.25 mU/L P-Prealbumin Reviewed date:06/29/2024 04:17:23 PM Interpretation:Normal Performing Lab: Notes/Report: Test performed by [facility] [address] [place], [place] [id number] [address] Tim Parrish MD, Leno Sewer CLIA: [id number] Prealbumin 21.0 20.0-40.0 mg/dL P-MMA Serum/Plasma, Vitamin B12 Status Reviewed date:06/29/2024 04:17:23 PM Interpretation:Normal Performing Lab: Notes/Report: MMA Serum/Plasma, Vitamin B12 Status 0.15 0.00-0.40 umol/L INTERPRETIVE INFORMATION: MMA Serum/Plasma, Vitamin B12 Status This test was developed and its performance characteristics determined by [facility]. It has not been cleared or approved by the US Food and Drug Administration. This test was performed in a CLIA certified laboratory and is intended for clinical purposes. Performed By: [facility] [address] [place] [address] L[address] Sewer: Cesar Arnold MD, PhD CLIA Number: [id number] P-Lipid Panel Reviewed date:06/29/2024 04:17:23 PM Interpretation:Normal Performing Lab: Notes/Report: Test performed by [facility] [address] [place] [address] [place] [address] Tim Parrish MD, Leno Sewer CLIA: [id number] Cholesterol 125 <200 mg/dL Triglycerides 82 <150 [...] Results: 54 Units: mg/dL % Change: -5% P-Iron Reviewed date:06/29/2024 04:17:23 PM Interpretation:Normal Performing Lab: Notes/Report: Test performed by [facility] [address] [place] [address] Tim Parrish MD, Leno Sewer CLIA: [id number] Iron 99 37-145 ug/dL P-Iron Binding Cap Reviewed date:06/29/2024 04:17:23 PM Interpretation:Normal Performing Lab: Notes/Report: Test performed by [facility] [address] [place] [address] Tmi Parrish MD, Leno Sewer CLIA: [id number] Iron Binding Cap 344 250-450 ug/dL P-T4 Free (thyroxine) Reviewed date:06/29/2024 04:17:23 PM Interpretation:Normal Performing Lab: Notes/Report: Test performed by [facility] [address] [place] [address] , [address], [place] [address] Tim Parrish MD, Leno Sewer CLIA: [id number] Thyroxine Free (free T4) 0.94 0.86-1.76 ng/dL P-Ferritin Reviewed date:06/29/2024 04:17:23 PM Interpretation:Normal Performing Lab: Notes/Report: Test performed by [facility] [address] [place] [address] , [place] [address] Tim Parrish MD, Leno Sewer CLIA: [id number] Ferritin 25.1 13.0-301.0 ng/mL P-Selenium, Serum/Plasma Reviewed date:06/29/2024 04:17:23 PM [...] developed and its performance characteristics determined by [facility]. It has not been cleared or approved by the US Food and Drug Administration. This test was performed in a CLIA certified laboratory and is intended for clinical purposes. Performed By: [facility] [address] [place] [address] Leno Sewer: Cesar Arnold MD, PhD CLIA Number: [id number] P-Folate Reviewed date:06/29/2024 04:17:23 PM Interpretation:Normal Performing Lab: Notes/Report: Test performed by [facility] [address] [place] [address] , [address], [place] [id number] Tim Parrish MD, Leno Sewer CLIA: [id number] Folate >20 >4.59 ng/mL P-Copper Reviewed date:06/29/2024 04:17:23 PM Interpretation:Normal Performing [...] developed and its performance characteristics determined by [facility]. It has not been cleared or approved by the US Food and Drug Administration. This test was performed in a CLIA certified laboratory and is intended for clinical purposes. Performed By: [facility] [address] [place] [address] Leno Sewer: Cesar Arnold MD, PhD CLIA Number: [id number] P-Comprehensive Metabolic Pa suzanne (CMP) Reviewed date:06/29/2024 04:17:23 PM Interpretation:bun 28, alt 81, ast 51 Performing Lab: Notes/Report: Test performed by [facility], [address] , [place] [address] Tim Parrish MD, Leno Sewer CLIA: [id number] Sodium 139 135-145 mmol/L Potassium 4.9 3.5-5.3 [...] 0.4 <0.2-1.2 mg/dL A/G Ratio 1.9 1.1-2.5 P-CBC with Diff plus Absolut e Counts Reviewed date:06/29/2024 04:17:23 PM Interpretation:Normal Performing Lab: Notes/Report: Test performed by [facility], [address] , [address], [place] [address] Tim Parrish MD, Leno Sewer CLIA: [id number] WBC 6.1 3.8-11.5 K/uL Red Blood Cell [...] K/uL Absolute Immature Granulocyte 0.02 0.00-0.03 K/uL Glycohemoglobin A1c (in hous e) Reviewed date:06/29/2024 04:17:23 PM Interpretation:5.3% Normal Performing Lab: Notes/Report: 5.3% Normal glycohemoglobin 5.3% 5 - 6.5 % Medications Medication SIG (Take, Route, Frequency, Duration) Notes Start Date End Date Status SUMAtriptan Succinate 50 MG TAKE 1 TABLET BY MOUTH WITH ONSET OF HEADACHE. MAY REPEAT 1 TIME AFTER 2 HOURS. MAX 2 TABLETS IN 24 HOURS. for 12 days Active Pantoprazole Sodium 40 MG TAKE 1 TABLET BY MOUTH TWICE DAILY for 90 Active Estrace 0.1 MG/GM 1 gm Vaginal 3 times per week 07/13/2024 Active Melatonin 5 MG 1 tablet at bedtime as needed Orally qhs Active Vitamin D3 50 MCG (1999) 1 tablet Orally Once a day for 30 day(s) Active LORazepam 1 MG 1 tablet at bedtime as needed Orally Once a day Active Baclofen 10 MG 1 tablet as needed O rally Twice a day Active Cefdinir 300 MG 1 cap(s) Orally Two times a day for 10 days 12/29/2024 Active Linzess 290 MCG 1 capsule at least 3 0 minutes before the first meal of the day on an empty stomach Orally Once a day for 30 day(s) Active Montelukast Sodium 10 MG 1 tablet Orally Once a day 02/29/2024 Active lamoTRIgine 150 MG TAKE 1 TABLET BY TWICE DAILY for 90 Active Flonase Allergy Relief 50 MCG/ACT 1 spray in each nostril Nasally Twice a day Active Venlafaxine HCl ER 225 MG TAKE 1 TABLET BY MOUTH ONCE DAILY WITH FOOD for 30 Active Atorvastatin Calcium 40 MG TAKE 1 TABLET BY MOUTH ONCE DAILY for 90 Active oxyBUTYnin Chloride ER 10 MG TAKE 1 TABLET BY MOUTH ONCE DAILY for 90 days Active Nitroglycerin 0.4 MG 1 tab(s) sublingual ly q 5min prn x 3 Active Multivitamin - 1 tab(s) orally once a day w/ Iron Active Calcium Citrate 150 MG 2 capsules Orally Once a day for 90 days Active traZODone HCl 100 MG TAKE 1 TABLET BY [facility] ONCE DAILY AT BEDTIME for 90 Active Isosorbide Dinitrate 30 MG 1 tablet Orally once daily for 90 days Active hydrOXYzine HCl 10 MG as directed Orally Two times a day for 90 days Active Aspirin 81 MG 1 tab(s) orally once a day for 30 day(s) Active QUEtiapine Fumarate ER 150 MG 1 tablet in the evening Orally Once a day Active CareTouch CPAP & BIPAP Hose 1 DIRECTED Active Prolia 60 MG/ML as directed subcutaneously every 6 months for 12 month(s) Active Immunizations Vaccine Route Administration Date Status [...] red PNEUMOVAX 23 VACCINE Unknown 03/18/2021 Administered PNEUMOVAX 23 VACCINE Unknown 01/02/2025 Pending Prevnar (PCV20) Unknown 04/24/2022 Administered Shingrix Unknown 03/18/2021 Administered Shingrix Unknown 06/16/2021 Administered xFluzone High Dose-private (65yr&older) Unknown 03/22/2024 Administered Morphine 10mg/ml IM Intramuscular 03/03/2006 Administered Problems Problem Type SNOMED Code ICD Code Onset Dates Problem Status W/U Status Risk Notes Problem Essential hypertension (19015758) Essential (primary) hypertension (I10) Active confirmed Problem 286564355 History of ASCVD (Z86.79) Active confirmed Problem COPD - Chronic obstructive pulmonary disease (61287278) COPD (chronic obstructive pulmonary disease) (J44.9) Active confirmed Problem 242950955 COPD with exacerbation (J44.1) Active confirmed Problem Osteopenia (976380009) Osteopenia (M85.80) Active confirmed Problem Seasonal allergy (872210408) Seasonal allergies (J30.2) Active confirmed Problem 616514097 Depression with anxiety (F41.8) Active confirmed Problem 126273190 OAB (overactive bladder) (N32.81) Active confirmed Problem 966161012 Memory loss (R41.3) Active confirmed Problem 39768345 Fibromyalgia (M79.7) Active confirmed Problem 7833200 Vasomotor rhinitis (J30.0) Active confirmed Problem 038057035 Irritable bowel syndrome with diarrhea (K58.0) Active confirmed Problem 885626800 Migraine without aura and without status migrainosus, not intractable (G43.009) Active confirmed Problem Atrophic vaginitis (30066463) Atrophic vaginitis (N95.2) Active confirmed Problem 77998628 Sacroiliitis (M46.1) Active confirmed Problem Dependence on supplemental oxygen (807529347145) Oxygen dependent (Z99.81) Active confirmed Problem 726956966 Dyslipidemia (E78.5) Active confirmed Problem 70695744 Seasonal allergi c rhinitis due to pollen (J30.1) Active confirmed Problem Degenerative disc disease (95091625) DDD (degenerative disc disease), lumbar (M51.36) Active confirmed Problem 327251223 Postural kyphosi s of thoracic region (M40.04) Active confirmed Problem Malabsorption syndrome (59489519) Malabsorption due to intolerance, not elsewhere classified (K90.49) Active confirmed Problem 359721594 Personal history of tobacco use (Z87.891) Active confirmed Problem DDD (degenerativ e disc disease), thoracic (M51.34) Active confirmed Vital Signs Heart Rate 90 /min 01/02/2025 Blood pressure diastolic 70 mm Hg 01/02/2025 Height 65 in 01/02/2025 Blood pressure systolic 102 mm Hg 01/02/2025 Weight 144.8 lbs 01/02/2025 BMI 24.09 kg/m2 01/02/2025 Encounters Encounter Location Date Provider Diagnosis [facility] [facility] [address] [place] [id number] 02/03/2024 China Sánchez Non-seasonal allergi c rhinitis, unspecified trigger J30.89 ; Benign paroxysmal positional vertigo due to bilateral vestibular disorder H81.13 and Symptomatic hypotension I95.9 [facility] [facility] [address] [place] [id number] 02/29/2024 R Foreign Benitez Fibromyalgia M79.7 a nd Seasonal allergies J30.2 [facility] [address] [facility] [address] [place] [id number] 03/30/2024 R Foreign Benitez Vaginal yeast infect ion B37.31 and Abnormal thyroid function test R94.6 [facility] [facility] [address] [place] [id number] 04/27/2024 R Foreign [place] Seasonal allergies J30.2 and Fibromyalgia M79.7 [facility] [address] [place] [id number] 06/22/2024 R Foreign Emmanuel Fibromyalgia M79.7 ; Malabsorption due to intolerance, not elsewhere classified K90.49 ; Status post bariatric surgery Z98.84 ; Dyslipidemia E78.5 ; Vaginal yeast infection B37.31 and Hypoglycemia E16.2 [facility] [address] [place] [id number] 06/26/2024 Sang Cameron Malabsorption due to intolerance, not elsewhere classified K90.49 [facility] [address] [place], [place] [id number] 07/13/2024 R Foreign Emmanuel URI (upper respirato ry infection) J06.9 and Atrophic vaginitis N95.2 [facility] [address] [place] [id number] 07/25/2024 R Foreign [place] Palpitations R00.2 [facility] [address] [place], [place] [id number] 08/28/2024 Marlena Antonio Sinusitis J32.9 and Papules R23.8 [facility] [address] [place] [id number] 10/19/2024 [facility] [place] Acute bronchitis J20 .9 ; COPD (chronic obstructive pulmonary disease) J44.9 ; Dyslipidemia E78.5 ; Seasonal allergies J30.2 and BMI 24.0-24.9, adult Z68.24 [facility] [address] [facility] [place] [id number] 12/29/2024 China Crowdy Hypoxia R09.02 ; Dysuria R30.0 and Chills R68.83 [facility] [address] [facility] [place] [id number] 12/30/2024 China Crowdy Dysuria R30.0 [facility] [address] [place] [id number] 01/02/2025 R Foreign Emmanuel Adult general medica l examination Z00.00 ; Flank pain, acute R10.10 and Hematuria R31.9 [facility] [address] [place] [id number] 01/02/2025 China Sánchez [facility] [address] [place] [id number] 01/03/2024 R Foreign Emmanuel [facility] [address] [place] [id number] 01/05/2024 R Foreign Emmanuel [facility] [address] [place] [id number] 02/16/2024 R Foreign Emmanuel Fibromyalgia M79.7 [facility] [address] [place] [id number] 03/14/2024 R Foreign Emmanuel [facility] [address] [place] [id number] 05/24/2024 R Foreign Emmanuel Seasonal allergies J30.2 [facility] [address] [place] [id number] 06/29/2024 R Foreign Emmanuel [facility] [address] [place] [id number] 07/03/2024 R Foreign Emmanuel [facility] [address] [place] [id number] 08/15/2024 R Foreign Emmanuel [facility] [address] [place] [id number] 08/15/2024 R Foreign Emmanuel [facility] [address] [place] [id number] 08/17/2024 R Foreign Emmanuel Seasonal allergies J30.2 [facility] [address] [place] [id number] 10/31/2024 R Foreign Emmanuel [facility] [address] [place] [id number] 11/21/2024 Jeyson Benitez Assessments Encounter Date Diagnosis (ICD Code) Assessment Notes Treatment Notes Treatment Clinical Notes Section Notes 02/16/2024 Fibromyalgia (ICD-10 - M79.7) 02/29/2024 Seasonal allergies (ICD-10 - J30.2) Continue Zyrtec 02/29/2024 Fibromyalgia (ICD-10 - M79.7) 03/30/2024 Abnormal thyroid function test (ICD-10 - [...] 03/30/2024 Vaginal yeast infection (ICD-10 - B37.31) 04/27/2024 Seasonal allergies (ICD-10 - J30.2) 02/03/2024 Non-seasonal allergic rhinitis, unspecified trigger (ICD-10 - J30.89) 02/03/2024 Benign paroxysmal positional vertigo due to bilateral vestibular disorder (ICD-10 - H81.13) Gave a handout to [employer] to do at home. If no improvement, will send to PT. 05/24/2024 Seasonal allergies (ICD-10 - J30.2) 06/22/2024 Fibromyalgia (ICD-10 - M79.7) 06/22/2024 Malabsorption due to intolerance, not elsewhere classified (ICD-10 - K90.49) 06/26/2024 Malabsorption due to intolerance, not elsewhere classified (ICD-10 - K90.49) 07/13/2024 URI (upper respiratory infection) (ICD-10 - J06.9) 07/13/2024 Atrophic vaginitis (ICD-10 - N95.2) 07/25/2024 Palpitations (ICD-10 - R00.2) 08/17/2024 Seasonal allergies (ICD-10 - J30.2) 08/28/2024 [...] (chronic obstructive pulmonary disease) (ICD-10 - J44.9) 12/29/2024 Hypoxia (ICD-10 - R09.02) Patient's oxygen [...] start on abx and increase fluid intake. 12/30/2024 Dysuria (ICD-10 - R30.0) 01/02/2025 Flank pain, acute (ICD-10 - R10.10) 01/02/2025 Adult general medical examination (ICD-10 - Z00.00) Patient instructed to return to office Annually for Annual Wellness Visits to include annual screenings of Pain assessment, Functional Ability assessment, Cognitive Ability assessment, Fall Risk assessment, Depression screening and Bladder control screening. 01/02/2025 Hematuria (ICD-10 - R31.9) 12/29/2024 Chills (ICD-10 - R68.83) 10/19/2024 Dyslipidemia (ICD-10 - E78.5) 06/22/2024 Status post bariatric surgery (ICD-10 - Z98.84) 02/03/2024 Symptomatic hypotension (ICD-10 - I95.9) Will stop losartan and monitor BP. If still low, will contact cardiology. 04/27/2024 Fibromyalgia (ICD-10 - M79.7) 06/22/2024 Dyslipidemia (ICD-10 - E78.5) 10/19/2024 Seasonal allergies (ICD-10 - J30.2) 10/19/2024 BMI 24.0-24.9, adult (ICD-10 - Z68.24) 06/22/2024 Vaginal yeast infection (ICD-10 - B37.31) 06/22/2024 Hypoglycemia (ICD-10 - E16.2) Plan Of Treatment Pending Test Test Name Order Date Urinalysis - Inhouse 12/30/2024 Influenza Screen (in house) 12/29/2024 CBC Fingerstick (in house) 12/29/2024 CT Scan : Abd and Pelvis, stone protocol 01/02/2025 P-Comprehensive Metabolic Panel (CMP) P-Culture, Urine 12/30/2024 P-Culture, Urine 01/02/2025 P-Lipid Panel 09/21/2023 Covid test (in house) 12/29/2024 Insurance Providers Payer Name Payer Address Payer Phone Subscriber Number Group Number Insured Name Patient Relationship to Insured Coverage Start Date Coverage End Date MEDICARE PART B [address] [address] [place] [address] [phone] [id number] WENDY DORAN Self - patient is the insured [employer] [address] [place] [id number] WENDY DORAN Self - patient is the insured Medications Administered Medication Instructions Date of Administration Dosage Notes Dexamethasone 06/28/2018 1 mL Dexamethasone 05/02/2019 1 mL Dexamethasone 02/10/2022 1 mL Dexamethasone 06/09/2022 1 mL Phenergan 12.5 mgs. 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 Ca th showed [...] Hospitalization History Reason Date(Month/Year) Drs office in [place]-possible UTI, te sted negative 12/2019 [place] [facility]-Bronchitis 03/2018 [place] [facility]-diarrhea 11/2015 [place] [facility]-constipation/impaction 2015 [facility]-heart attack 12/31/2014 [facility] ER-back pain 06/2012 [facility] ER-diarrhea 03/2011
--- OUTSIDE RECORDS SUMMARY | 2025-01-02 10:55 | XMS_ITS | Continuity of Care Document ---
Author Organization [facility] [place] [facility] [place], [facility] Address [address] [place] [address] Care Team Providers Care Software Security Consultant Name Role Phone GENET BRUCE Primary Care Provider Assessment Encounter Date Assessment Date Assessment LastModified [...] recommended 04/2029 for screening. f/u 1 month [email or web address] Not available 12/27/2024 14:41:04 Plan of Treatment Reminders Order Date Submit Date Provider Last Modified By Organization Details Last Modified Time Details Appointments Establish ed Visit 15 min 2024 01:45P M Ernesto Amezcua PA-C Not available Not available Not available OV EST 20 2024 10:00A M Aden Husain, DNP, DIRECTOR CLOUD TRANSFORMATION, DIET TECHNICIAN REGISTERED-C Not available Not available Not available Lab None recorded. Referral None recorded. Procedures biopsy, liver (PROC) - CT or US guidance, depending on radiologi st's preferenc e 2024 025 [facility] [place] [address], [address] [place], [address], 12/27/2024 14:50:48 Surgeries None recorded. Imaging None recorded. Medication Orders None recorded. Patient TargetsNo targets recorded. Patient InstructionsNo instructions recorded. Reason for Referral None Reported. Problems Name Problem SNOMED Code Status Onset Date Resolution Date Notes Provider Name and Address Organization Details Recorded Time Metabolic dysfuncti on-associ ated steatohep atitis 581749061 Active 2023 Ernesto Amezcua PA-C [address] [facility], [place], [address] , [facility] & [place] 5 14:30:35 Gastroeso phageal reflux disease without esophagit is 104397855 Active 2023 Ernesto Amezcua PA-C [address] [facility], [place], [address] , [place] [facility] & [place] 4 13:48:57 Chronic idiopathi c constipat ion 54317578 Active 2021 Not Available [facility] 3 16:06:44 Gastroeso phageal reflux disease 850289495 Active 2021 Not Available [facility] 3 16:06:44 Diarrhea 23499674 Active 2021 Not Available [facility] 3 16:06:44 Hypokalem ia 13343744 Active 2021 Not Available [facility] 3 16:06:44 Abdominal pain 31857131 Active 2021 Not Available [facility] 3 16:06:44 Myocardia l infarctio n 92306426 Completed 202103/25/2022 Azeb Quesada null, [place] [facility] [place] [facility] [place] 2 14:37:03 Fibromyal dominique 809311587 Active 2021 Not Available [facility] 3 16:06:44 Mild dementia 93173585692 4108 Active 2021 Not Available [facility] 3 16:06:44 Chronic obstructi ve pulmonary disease 16047557 Active 2021 Not Available [facility] 3 16:06:44 Hiatal hernia 86904769 Completed 202103/25/2022 Azeb Quesada null, [place] [facility] [place] [facility] [place] 2 14:38:57 Chronic depressio n 875619686 Active 2021 Not Available [facility] 3 16:06:44 Obesity 553989018 Active 2021 Ernesto Amezcua PA-C [address] [facility], [place], [address] , [place] [facility] [place] [facility] [place] 2 14:51:36 Hypertens silvino disorder 17630898 Active 2022 Not Available [facility] 3 16:06:44 Dyslipide franc 302038548 Active 2022 Not Available [facility] 3 16:06:44 Morbid obesity 130990839 Active 2022 Not Available [facility] 3 16:06:44 Dizziness 631787466 Active 2022 Not Available [facility] 3 16:06:44 Intention al weight loss 334990622 Active 2022 Not Available [facility] 3 16:06:44 Constipat ion 24402963 Active 2022 Ernesto Amezcua PA-C [address], [place], [place], [address] [place] [address] , [place] [facility] [place] [facility] [place] 3 15:41:42 Overweigh t 336182841 Active 2023 Aden Husain DNP, DIRECTOR CLOUD TRANSFORMATION, DIET TECHNICIAN REGISTERED-C [address], [place], [place], [address] [place] [address] , [place] [facility] [place] [facility] [place] 4 09:57:50 Fatigue 91307047 Active 2023 Aden Husain DNP, DIRECTOR CLOUD TRANSFORMATION, DIET TECHNICIAN REGISTERED-C [address], [place], [address] [place] [address] , [place] [facility] [place] 4 10:00:39 Liver enzymes level above reference range 651133494 Active 2023 Aden Husain DNP, DIRECTOR CLOUD TRANSFORMATION, DIET TECHNICIAN REGISTERED-C [address], [place], [address] [place] [address] , [place] [facility] [place] 4 13:32:45 Low back pain 394226615 Active 2023 Aden Husain DNP, DIRECTOR CLOUD TRANSFORMATION, DIET TECHNICIAN REGISTERED-C [address], [place], [address] [place] [address] , [place] [facility] [place] 4 15:56:35 Irritable bowel syndrome character ized by constipat ion 845509908 Active 2023 Ernesto Amezcua PA-C [address], [place], [place], [address] [place] [address] , [place] [facility] [place] 4 09:08:46 Problem Notes None recorded. Procedures Surgical History Date Name Laterality Status Provider Name and Address Organization Details Recorded Time 07/23/[address], [place] [address], [place], [address], [place] [facility] [place] 08/14/2022 16:17:22 05/28/20 21 Date of Last Pap Smear completed RIMMA JOSEROSA RAY RD, LD [address] [facility], [place], [address], [facility] & [place] 08/14/2022 16:17:22 12/20/19 21 Date of Last Colonoscopy completed RIMMA JOSEROSA RAY RD, LD [address], [place], [address], [facility] & [place] 08/14/2022 16:17:22 11/17/19 20 Most Recent Bone Density completed RIMMA JOSEROSA RAY RD, LD [address] [facility], [place], [address], [facility] & [place] 08/14/2022 16:17:22 Appendectomy completed Not Available [facility] 13:08:39 extraction of wisdom tooth completed Not Available [facility] 08/10/2022 13:08:39 lithotripsy completed Not Available [facility] 07/14 13:08:39 Colonoscopy completed Marychuy Quesada [facility] & [place] 08/13/2022 11:21:25 EGD completed Marychuy Quesada [facility] & [place] 08/13/2022 11:21:36 Gastric Bypass completed Dipesh Dow [facility] & [place] 12/29/2022 08:20:27 Imaging Results None recorded. Procedure Notes None recorded. Medical Equipment None Reported. Allergies Allergen ID Allergen Name Allergen Category Reaction Reaction Severity Criticality Documentation Date Start Date Code Code System Note Provider Name and Address Organization Details Recorded Time 43705 Product containin g penicilli n (product) medicatio n Not available Not available Not available 03/25/2022 22297 8001 SNOMED [facility] [place] 14:01:10 796557 indometha gen medicatio n Not available Not available Not available 06/19/2024 5781 RxNorm Other react ions and sever ities : 'Adve rse react ion to subst ance' . Kary aguillon, [place] - [facility] & [place] 4 14:05:45 884438 penicilli n V Not available Not available Not available Not available 06/19/2024 7984 RxNorm Other react ions and sever ities : 'Anap hylax is due to subst ance' . Kary Rust null, [place] [facility] & [place] 4 14:05:45 440959 milnacipr an medicatio n Not available Not available Not available 06/19/2024 42144 0 RxNorm Other react ions and sever ities : 'Adve rse react ion to subst ance' . Kary Rust null, [place] - [facility] & [place] 4 14:05:45 99374 Savella medicatio n Not available Not available Not available 08/13/2022 07142 6 RxNorm Marychuy Quesada null, [facility] & [place] 3 11:18:57 Medications Name Sig Start Date [...] Updated DateTime 12/27/2024 162.56 cm 24.7 kg/m2 89810.58 g 98.4 [degF] 97 /min Ernestine Laguerre [facility] & [place] 14:16:54 Social History Question Answer Notes LastModified by [employer] [facility] Details LastModified Time Tobacco Smoking Status Former Smoker quit 3 years ago Araceli aguillon, [facility] & [place] 09/06/2023 09:49:34 Do You Have An Advance Directive? No [email or web address] Information not available 08/14/2022 Are You Blind Or Do You Have Difficulty Seeing? No Information not available 08/14/2022 What Was The Date Of Your Most Recent Tobacco Screening? 08/10/2022 [email or web address] Information not available 08/14/2022 Are You Passively Exposed To Smoke? No Information not available 08/14/2022 How Much Tobacco Do You Smoke? No Information not available 08/14/2022 Sex: Male Functional Status Question Answer Note LastModified by [employer] [facility] Details LastModified Time Do you use any illicit or recreational drugs? No [email or web address] Information not available 08/10/2022 What is your level of alcohol consumption? None Information not available 08/10/2022 Do you or have you ever used smokeless tobacco? Never used smokeless tobacco [email or web address] Information not available 08/14/2022 What is your exercise level? None [email or web address] Information not available 08/14/2022 Mental Status Question Answer Note LastModified by Organization D etails LastModified Time Do you feel stressed (tense, restless, nervous, or anxious, or unable to sleep at night)? RC5502-3 [email or web address] Information not available 08/14/2022 Family History Relationship Description Onset Age of this Age Resolved Age Notes LastModified by Organization Details LastModified Time Father Obesity Not availa ble 08/10/2022 08:30:50 Father Diabetes mellitus [email or web address] Not available 2024 14:11:10 Father Hypertensive disorder [email or web address] Not available 08:31:23 Father Heart disease [email or web address] Not available 08:31:48 Father Cerebrovascu lar accident [email or web address] Not available 08/10/2022 08:32:04 Father Hypercholest erolemia [email or web address] Not available 08:32:27 Father Asthma [email or web address] Not available 12/27/2024 14:11:10 Father Allergy pt. added direct ly (08/10) [email or web address] Not available 08/10/2022 13:04:20 Father Disorder of endocrine system pt. added direct ly (08/10) [email or web address] Not available 08/10/2022 13:07:54 Maternal Grandmother Obesity [email or web address] Not available 0 08/10/2022 08:30:50 Maternal Grandmother Hypertensive disorder [email or web address] Not available 08:31:23 Maternal Grandmother Heart disease [email or web address] Not available 08:31:49 Mother Hypertensive disorder [email or web address] Not available 08:31:23 Mother Heart disease [email or web address] Not available 08:31:48 Mother Cerebrovascu lar accident [email or web address] Not available 08/10/2022 08:32:04 Mother Hypercholest erolemia [email or web address] Not available 08:32:27 Mother Allergy pt. added direct ly (08/10) [email or web address] Not available 08/10/2022 13:04:20 Brother Hypertensive disorder [email or web address] Not available 08:31:23 Brother Heart disease [email or web address] Not available 08:31:49 Brother Hypercholest erolemia [email or web address] Not available 08:32:27 Brother Cerebrovascu lar accident pt. added direct ly (09/03) [email or web address] Not available 09/03/2023 11:07:40 Sister Hypertensive disorder [email or web address] Not available 08:31:23 Sister Hypercholest erolemia [email or web address] Not available 08:32:27 Maternal Grandfather Heart disease [email or web address] Not available 08:31:49 Maternal Uncle Allergy pt. added direct ly (08/10) [email or web address] Not available 08/10/2022 13:04:20 Paternal Grandmother Obesity pt. added direct ly (08/10) [email or web address] Not available 08/10/2022 13:08:19 Medical History Condition Response Other Y Gout N Kidney Stones Y COPD Y Depression Y Spine Problems Y Obstructive Sleep Apnea Y Anxiety Disorder Y Obesity Y Arthritis Y High Cholesterol Y Liver Disease Y Psychiatric/Mental Health Condition Y Headaches Y Osteoporosis/Osteopenia Y Constipation Y Heart Attack (RI) Y Back Problems Y Asthma Y Reflux/GERD N Heart Disease Y Hypertension Y Gynecological History Statement/Question Response [...] quadrivalent, preservative 7 completed Not Available [facility] 01/01/2023 16:06:44 Influenza, recombinant, quadrivalent, PF 1 completed Not Available [facility] 01/01/2023 16:06:44 Influenza, recombinant, quadrivalent, PF 0 completed Not Available [facility] 01/01/2023 16:06:44 zoster recombinant 1 completed Not Available [facility] 01/01/2023 16:06:44 zoster recombinant 1 completed Not Available [facility] 01/01/2023 16:06:44 MMR 6 completed Not Available [facility] 01/01/2023 16:06:44 COVID-19, mRNA, LNP-S, PF, 100 mcg/0.5mL dose or 50 mcg/0.25mL dose 1 completed Not Available [facility] 01/01/2023 16:06:44 COVID-19, mRNA, LNP-S, PF, 100 mcg/0.5mL dose or 50 mcg/0.25mL dose 1 completed Not Available [facility] 01/01/2023 16:06:44 COVID-19, mRNA, LNP-S, PF, 100 mcg/0.5mL dose or 50 mcg/0.25mL dose 1 completed Not Available [facility] 01/01/2023 16:06:44 Pneumococcal conjugate PCV20, polysaccharide UVV132 conjugate, adjuvant, PF 2 completed Not Available [facility] 01/01/2023 16:06:44 pneumococcal polysaccharide PPV23 1 completed Not Available [facility] 01/01/2023 16:06:44 pneumococcal polysaccharide PPV23 7 completed Not Available [facility] 01/01/2023 16:06:44 Influenza, split virus, quadrivalent, PF 9 completed Not Available [facility] 01/01/2023 16:06:44 Influenza, split virus, quadrivalent, PF 2 completed Not Available [facility] 01/01/2023 16:06:44 Influenza, split virus, quadrivalent, PF 8 completed Not Available [facility] 01/01/2023 16:06:44 influenza, unspecified formulation 4 completed Kary Rust null, [place] [facility] & [place] 08/08/2024 13:51:39 Respiratory syncytial virus (RSV) MAB, unspecified 4 completed Araceli Velasquez null, [place] [facility] & [place] 06/06/2024 09:21:15 Influenza, high-dose, quadrivalent, PF 3 completed Kary Rust null, [place] [facility] [place] [facility] [place] 08/08/2024 13:51:39 RSV, recombinant, protein subunit RSVpreF, adjuvant reconstituted, 0.5 mL, PF 4 completed Kary Rust null, [place] [facility] [place] [facility] [place] 08/08/2024 13:51:39 Influenza, high-dose, trivalent, PF 4 completed Kary Bourgeois [facility], [place] [facility] [place] [facility] [place] 08/08/2024 13:51:39 Past Encounters Encounter ID Performer Location Encounter Start Date Encounter Closed Date Diagnosis/Indication Diagnosis SNOMED-CT Code Diagnosis ICD10 Code Diagnosis Note [id number] Aden Husain, DNP, DIRECTOR CLOUD TRANSFORMATION, DIET TECHNICIAN REGISTERED-C [facility] [address] [place] [address] 12/08/2024 08:48:35 12/08/2024 09:28:10 History of bariatric surgical procedure 794784103 Z98.84 Intentiona l weight loss 912870512 R63.8 History of gastrectomy 471069956 Z90.3 Advised qid intake 50% protein 5748-8419 calories/d y less than 100 carbs/dy Long [...] correct any vitamin deficienci es. At [facility] ed risk of nutritional deficit 473969023 Z91.89 Dyslipidemia 036811403 E 78.5 Hypertensive disorder 38 542407 I10 Overweight 716270427 E66 .3 [id number] Ernesto Amezcua PA-C [facility] [address] [place] [address] 12/27/2024 14:10:09 12/27/2024 14:38:18 Liver enzymes level above reference range 282201804 R74.01 Metabolic dysfunction-associate d steatohepatitis 759219185 K75.81 Gastroesop hageal reflux disease without esophagitis 155895360 K21.9 Chronic id iopathic constipation 93531952 K59.04 History of colonoscopy 3437511592 09 Z98.890 Health Concerns Section Related Observation LastModified by Organization Detai ls LastModified Time None Recorded Concern Status LastModified by Organization Details LastModified Time None Recorded Payers Encounter Date Sequence Insurance Name Policy Number Policy Acosta Covered Member ID Acosta Member ID Guarantor Name 12/27/2024 2 [employer] (MEDICARE SUPPLEMENT) Maria Isabel Doran [id number] Maria Isabel Doran 12/27/2024 1 [place] Maria Isabel Doran [id number] Maria Isabel Doran Notes Date Note Type [...] overall at this time. Ernesto Amezcua PA-C [address], [place], [address], [facility] [place] [facility] [place] 12/27/2024 14:41:34 OBGyn Episode No OBEpisode recorded.
--- OUTSIDE RECORDS SUMMARY | 2025-01-02 10:55 | XMS_ITS | Data Portability ---
Author Organization [place] - [facility] [place] [facility] [place] [facility] AD[facility] Address [address] [place] [id number] Care Team Providers Care Executive Vp Name Role Phone GENET BRUCE Primary Care [...] for screening. f/u 6 months and PRN [email or web address] Not available 06/26/2024 13:49:07 12/27/2024 12/27/2024 69-year-old [...] recommended 04/2029 for screening. f/u 1 month [email or web address] Not available 12/27/2024 14:41:04 Plan of Treatment Reminders Order Date Submit Date Provider Last Modified By Organization Details Last Modified Time Details Appointments Establish ed Visit 15 min 2024 01:45P M Ernesto Amezcua PA-C Not available Not available Not available OV EST 20 2024 10:00A M Aden Husain, CAMMIE, TURRET PUNCH OPERATOR, LOCAL TANKER TRUCK DRIVER-C Not available Not available Not available Lab CBC w/ auto diff 2024 025 ISAAC [facility], [address], [address], [place], [address], 12/15/2024 14:37:20 CMP, serum or plasma 2024 025 ISAAC [facility], [address], [address], [place], [address], 12/15/2024 14:37:21 TSH + free T4, serum 2024 025 ISAAC [facility], [address], [address], [place], [address], 12/15/2024 14:37:19 HbA1c (hemoglob in A1c), blood 2024 025 ISAAC [facility], [address], [address], [place], [address], 12/15/2024 14:37:24 lipid panel, serum 2024 025 ISAAC [facility], [address], [address], [place], [address], 12/15/2024 14:37:22 copper, serum or plasma 2024 025 ISAAC [facility], [address], [address], [place], [address], 12/15/2024 14:37:29 selenium, quantitat silvino, blood 2024 025 ISAAC [facility], [address], [address], [place], [address], 12/15/2024 14:37:31 zinc, serum or plasma 2024 025 ISAAC [facility], [address], [address], [place], [address], 12/15/2024 14:37:30 iron + TIBC + ferritin, serum 2024 025 ISAAC [facility], [address], [address], [place], [address], 12/15/2024 14:37:18 folate, serum 2024 025 ISAAC [facility], [address], [address], [place], [address], 12/15/2024 14:37:24 vitamin E, serum 2024 025 ISAAC [facility], [address], [address], [place], [address], 12/15/2024 14:37:23 vitamin A (retinol) , serum 2024 025 ISAAC [facility], [address], [address], [place], [address], 12/15/2024 14:37:25 prealbumi n, serum 2024 025 ISAAC [facility], [address], [address], [place], [address], 12/15/2024 14:37:30 thiamine, QN, blood 2024 025 ISAAC [facility], [address], [address], [place], [address], 12/15/2024 14:37:27 methylmal jareth, QN, serum or plasma 2024 025 ISAAC [facility], [address], [address], [place], [address], 12/15/2024 14:37:28 vitamin D, 25-hydrox y, total, serum 2024 025 ISAAC [facility], [address], [address], [place], [address], 12/15/2024 14:37:26 CMP, serum or plasma 2023 024 [email or web address] 4 [facility] (Registration ), [address], [place], [address], 07/07/2024 10:22:50 CBC [address] (Registration ), [address], [place], [address], 07/07/2024 10:22:50 PT/INR [address] (Registration ), [address], [place], [address], 07/07/2024 10:22:50 liver fibrosis score, calculate d by ELF, serum or plasma [address] (Registration ), [address] [place] [address], [place], [address], 07/07/2024 10:22:50 selenium, quantitat silvino, blood 2023 024 [email or web address] [facility], [address], [address], [place], [address], 07/06/2024 13:36:28 CMP, serum or plasma 2023 024 [facility], [address], [address], [place], [address], 07/06/2024 13:36:30 CBC w/ auto diff 2023 024 [email or web address] [facility], [address], [address], [place], [address], 07/06/2024 13:36:29 HbA1c (hemoglob in A1c), blood 2023 024 [email or web address] [facility], [address], [address], [place], [address], 07/06/2024 13:36:30 TSH + free T4, serum 2023 [email or web address] [facility], [address], [address], [place], [address], 07/06/2024 13:36:30 lipid panel, serum 2023 [email or web address] [facility], [address], [address], [place], [address], 07/06/2024 13:36:30 copper, serum or plasma 2023 [email or web address] [facility], [address], [address], [place], [address], 07/06/2024 13:36:28 zinc, serum or plasma 2023 [email or web address] [facility], [address], [address], [place], [address], 07/06/2024 13:36:28 iron + TIBC + ferritin, serum 2023 [email or web address] [facility], [address], [address], [place], [address], 07/06/2024 13:36:28 folate, serum 2023 [email or web address] [facility], [address], [address], [place], [address], 07/06/2024 13:36:29 vitamin E, serum 2023 [email or web address] [facility], [address], [address], [place], [address], 07/06/2024 13:36:29 vitamin A (retinol) , serum 2023 [email or web address] [facility], [address], [address], [place], [address], 07/06/2024 13:36:29 prealbumi n, serum 2023 024 [facility], [address], [address], [place], [address], 07/06/2024 13:36:29 thiamine, QN, blood 2023 024 [email or web address] [facility], [address], [address], [place], [address], 07/06/2024 13:36:29 methylmal jareth, QN, serum or plasma 2023 024 [facility], [address], [address], [place], [address], 07/06/2024 13:36:29 vitamin D, 25-hydrox y, total, serum 2023 [email or web address] [facility], [address], [address], [place], [address], 07/06/2024 13:36:30 selenium, quantitat silvino, blood 2023 024 [email or web address] [facility], [address], [address], [place], [address], 03/14/2024 10:57:17 HbA1c (hemoglob in A1c), blood 2023 024 [email or web address] [facility], [address], [address], [place], [address], 03/14/2024 10:57:17 iron + TIBC + ferritin, serum 2023 024 [email or web address] [facility], [address], [address], [place], [address], 03/14/2024 10:57:17 vitamin D, 25-hydrox y, total, serum 2023 [email or web address] [facility], [address], [address], [place], [address], 03/14/2024 10:57:18 vitamin A (retinol) , serum 2023 [email or web address] [facility], [address], [address], [place], [address], 03/14/2024 10:57:18 thiamine, QN, blood 2023 [email or web address] [facility], [address], [address], [place], [address], 03/14/2024 10:57:19 methylmal jareth, QN, serum or plasma 2023 [email or web address] [facility], [address], [address], [place], [address], 03/14/2024 10:57:19 copper, serum or plasma 2023 [email or web address] [facility], [address], [address], [place], [address], 03/14/2024 10:57:16 zinc, serum or plasma 2023 [email or web address] [facility], [address], [address], [place], [address], 03/14/2024 10:57:17 CBC w/ auto diff 2023 [email or web address] [facility], [address], [address], [place], [address], 03/14/2024 10:57:17 CMP, serum or plasma 2023 024 [email or web address] [facility], [address], [address], [place], [address], 03/14/2024 10:57:17 folate, serum 2023 024 [facility], [address], [address], [place], [address], 03/14/2024 10:57:17 vitamin E, serum 2023 024 [email or web address] [facility], [address], [address], [place], [address], 03/14/2024 10:57:18 TSH + free T4, serum 2023 024 [email or web address] [facility], [address], [address], [place], [address], 03/14/2024 10:57:18 prealbumi n, serum 2023 024 [email or web address] [facility], [address], [address], [place], [address], 03/14/2024 10:57:18 lipid panel, serum 2023 024 [email or web address] [facility], [address], [address], [place], [address], 03/14/2024 10:57:19 Referral None recorded. Procedures biopsy, liver (PROC) - CT or US guidance, depending on radiologi st's preferenc e 2024 025 [email or web address] [facility], [address] [facility], [place], [address], 12/27/2024 14:50:48 Surgeries None recorded. Imaging None recorded. Medication Orders Motegrity 2 mg tablet 2023 024 [email or web address] [facility], [address] [place] [address], [place] [address], [place], [place], [id number], 12/08/2024 08:57:40 Patient TargetsNo targets recorded. Patient InstructionsNo instructions recorded. Reason for Referral None Reported. Results Created Date Observation Date Name Description Value Unit Range Abnormal Flag Note LastModifiedBy Organization Detail LastModifiedTime 03/06/2003/07/2024 FE+TI BC+FE R iron bind.cap.(TI BC) 333 ug/dL 250-45 0 normal Not Available [facility] ([facility]) [address] [place], [address], 03/14/2024 18:37:18 03/06/20 24 03/07/2024 FE+TI BC+FE R UIBC 231 ug/dL 118-36 9 normal Not Available [facility] ([facility]) [address] [place], [address], 03/14/2024 18:37:18 03/06/20 24 03/07/2024 FE+TI BC+FE R iron 102 ug/dL 27-139 normal Not Available [facility] ([facility]) [address] [place], [address], 03/14/2024 18:37:18 03/06/20 24 03/07/2024 FE+TI BC+FE R iron saturation 31 % 15-55 normal Not Available [facility] ([facility]) [address] [place], [address], 03/14/2024 18:37:18 03/06/20 24 03/07/2024 FE+TI BC+FE R ferritin 29 NG/mL 15-150 normal Not Available [facility] ([facility]) [address] [place], [address], 03/14/2024 18:37:18 03/06/20 24 03/07/2024 TSH+F REE T4 TSH 1.870 uIU/m L 0.450- 4.500 normal Not Available [facility] ([facility]) [address] [facility], [place], [address], 03/14/2024 18:37:18 03/06/2003/07/2024 TSH+F REE T4 T4,free(dire ct) 0.77 NG/dL 0.82-1 .77 below low normal Not Available [facility] ([facility]) [address] [facility], [place], [address], 03/14/2024 18:37:18 03/06/20 24 03/07/2024 CBC WITH DIFFE RENTI AL/PL ATELE T WBC 5.0 x10e3 /uL 3.4-10 .8 normal Not Available [facility] ([facility]) [address] [facility], [place], [address], 03/14/2024 18:37:18 03/06/2003/07/2024 CBC WITH DIFFE RENTI AL/PL ATELE T RBC 4.62 x10e6 /uL 3.77-5 .28 normal Not Available [facility] ([facility]) [address] [place], [address], 03/14/2024 18:37:18 03/06/2003/07/2024 CBC WITH DIFFE RENTI AL/PL ATELE T hemoglobin 14.1 g/dL 11.1-1 5.9 normal Not Available [facility] ([facility]) [address] [place], [address], 03/14/2024 18:37:18 03/06/2003/07/2024 CBC WITH DIFFE RENTI AL/PL ATELE T hematocrit 44.3 % 34.0-4 6.6 normal Not Available [facility] ([facility]) [address] [place], [address], 03/14/2024 18:37:18 03/06/20 24 03/07/2024 CBC WITH DIFFE RENTI AL/PL ATELE T MCV 96 fL 79-97 normal Not Available [facility] ([facility]) [address] [place], [address], 03/14/2024 18:37:18 03/06/20 24 03/07/2024 CBC WITH DIFFE RENTI AL/PL ATELE T MCH 30.5 pg 26.6-3 3.0 normal Not Available [facility] ([facility]) [address] [place], [address], 03/14/2024 18:37:18 03/06/20 24 03/07/2024 CBC WITH DIFFE RENTI AL/PL ATELE T MCHC 31.8 g/dL 31.5-3 5.7 normal Not Available [facility] ([facility]) [address] [place], [address], 03/14/2024 18:37:18 03/06/20 24 03/07/2024 CBC WITH DIFFE RENTI AL/PL ATELE T RDW 12.4 % 11.7-1 5.4 Not Available [facility] ([facility]) [address] [place], [address], 03/14/2024 18:37:18 03/06/20 24 03/07/2024 CBC WITH DIFFE RENTI AL/PL ATELE T platelets 232 x10e3 /uL 150-45 0 normal Not Available [facility] ([facility]) [address] [place], [address], 03/14/2024 18:37:18 03/06/20 24 03/07/2024 CBC WITH DIFFE RENTI AL/PL ATELE T neutrophils 53 % not estab. normal Not Available [facility] ([facility]) [address] [place], [address], 03/14/2024 18:37:18 03/06/20 24 03/07/2024 CBC WITH DIFFE RENTI AL/PL ATELE T lymphs 29 % not estab. normal Not Available [facility] ([facility]) [address] [facility], [place], [address], 03/14/2024 18:37:18 03/06/20 24 03/07/2024 CBC WITH DIFFE RENTI AL/PL ATELE T monocytes 12 % not estab. normal Not Available [facility] ([facility]) [address] [facility], [place], [address], 03/14/2024 18:37:18 03/06/20 24 03/07/2024 CBC WITH DIFFE RENTI AL/PL ATELE T eos 5 % not estab. normal Not Available [facility] ([facility]) [address] [facility], [place], [address], 03/14/2024 18:37:18 03/06/20 24 03/07/2024 CBC WITH DIFFE RENTI AL/PL ATELE T basos 1 % not estab. normal Not Available [facility] ([facility]) [address] [place], [address], 03/14/2024 18:37:18 03/06/20 24 03/07/2024 CBC WITH DIFFE RENTI AL/PL ATELE T immature cells LOCAL TANKER TRUCK DRIVER Not Available [facility] ([facility]) [address] [place], [address], 03/14/2024 18:37:18 03/06/20 24 03/07/2024 CBC WITH DIFFE RENTI AL/PL ATELE T neutrophils (absolute) 2.6 x10e3 /uL 1.4-7. 0 normal Not Available [facility] ([facility]) [address] [place], [address], 03/14/2024 18:37:18 03/06/20 24 03/07/2024 CBC WITH DIFFE RENTI AL/PL ATELE T lymphs (absolute) 1.5 x10e3 /uL 0.7-3. 1 normal Not Available [facility] ([facility]) [address] [facility], [place], [address], 03/14/2024 18:37:18 03/06/20 24 03/07/2024 CBC WITH DIFFE RENTI AL/PL ATELE T monocytes(ab solute) 0.6 x10e3 /uL 0.1-0. 9 normal Not Available [facility] ([facility]) [address] [facility], [place], [address], 03/14/2024 18:37:18 03/06/20 24 03/07/2024 CBC WITH DIFFE RENTI AL/PL ATELE T eos (absolute) 0.3 x10e3 /uL 0.0-0. 4 normal Not Available [facility] ([facility]) [address] [facility], [place], [address], 03/14/2024 18:37:18 03/06/20 24 03/07/2024 CBC WITH DIFFE RENTI AL/PL ATELE T baso (absolute) 0.1 x10e3 /uL 0.0-0. 2 normal Not Available [facility] ([facility]) [address] [facility], [place], [address], 03/14/2024 18:37:18 03/06/20 24 03/07/2024 CBC WITH DIFFE RENTI AL/PL ATELE T immature granulocytes 0 % not estab. Not Available [facility] ([facility]) [address] [facility], [place], [address], 03/14/2024 18:37:18 03/06/20 24 03/07/2024 CBC WITH DIFFE RENTI AL/PL ATELE T immature grans (abs) 0.0 x10e3 /uL 0.0-0. 1 Not Available [facility] ([facility]) [address] [facility], [place], [address], 03/14/2024 18:37:18 03/06/20 24 03/07/2024 CBC WITH DIFFE RENTI AL/PL ATELE T NRBC LOCAL T[employer]ER TRUCK DRIVER Not Available [facility] ([facility]) [address] [facility], [place], [address], 03/14/2024 18:37:18 03/06/20 24 03/07/2024 CBC WITH DIFFE RENTI AL/PL ATELE T hematology comments: LOCAL TANKER TRUCK DRIVER Not Available [facility] ([facility]) [address] [facility], [place], [address], 03/14/2024 18:37:18 03/06/20 24 03/07/2024 COMP. METAB OLIC PANEL (14) glucose 93 mg/dL 70-99 normal Not Available [facility] ([facility]) [address] [facility] [place], [address], 03/14/2024 18:37:19 03/06/20 24 03/07/2024 COMP. METAB OLIC PANEL (14) BUN 32 mg/dL 8-27 above high normal Not Available [facility] ([facility]) [address] [facility], [place], [address], 03/14/2024 18:37:19 03/06/20 24 03/07/2024 COMP. METAB OLIC PANEL (14) creatinine 0.91 mg/dL 0.57-1 .00 normal Not Available [facility] ([facility]) [address] [facility] [place], [address], 03/14/2024 18:37:19 03/06/20 24 03/07/2024 COMP. METAB OLIC PANEL (14) eGFR 70 mL/mi n/1.7 3 >59 normal Not Available [facility] ([facility]) [address] [facility] [place], [address], 03/14/2024 18:37:19 03/06/20 24 03/07/2024 COMP. METAB OLIC PANEL (14) BUN/creatini ne ratio 35 12-28 above high normal Not Available [facility] ([facility]) [address] [facility] [place], [address], 03/14/2024 18:37:19 03/06/20 24 03/07/2024 COMP. METAB OLIC PANEL (14) sodium 138 mmol/ L 134-14 4 normal Not Available [facility] ([facility]) [address] [place], [address], 03/14/2024 18:37:19 03/06/20 24 03/07/2024 COMP. METAB OLIC PANEL (14) potassium 4.2 mmol/ L 3.5-5. 2 normal Not Available [facility] ([facility]) [address] [place], [address], 03/14/2024 18:37:19 03/06/20 24 03/07/2024 COMP. METAB OLIC PANEL (14) chloride 101 mmol/ L 96-106 normal Not Available [facility] ([facility]) [address] [place], [address], 03/14/2024 18:37:19 03/06/20 24 03/07/2024 COMP. METAB OLIC PANEL (14) carbon dioxide, total 24 mmol/ L 20-29 normal Not Available [facility] ([facility]) [address] [place], [address], 03/14/2024 18:37:19 03/06/20 24 03/07/2024 COMP. METAB OLIC PANEL (14) calcium 9.4 mg/dL 8.7-10 .3 normal Not Available [facility] ([facility]) [address] [place], [address], 03/14/2024 18:37:19 03/06/20 24 03/07/2024 COMP. METAB OLIC PANEL (14) protein, total 6.3 g/dL 6.0-8. 5 normal Not Available [facility] ([facility]) [address] [facility] [place], [address], 03/14/2024 18:37:19 03/06/20 24 03/07/2024 COMP. METAB OLIC PANEL (14) albumin 4.1 g/dL 3.9-4. 9 normal Not Available [facility] ([facility]) [address] [facility] [place], [address], 03/14/2024 18:37:19 03/06/20 24 03/07/2024 COMP. METAB OLIC PANEL (14) globulin, total 2.2 g/dL 1.5-4. 5 Not Available [facility] ([facility]) [address] [facility] [place], [address], 03/14/2024 18:37:19 03/06/20 24 03/07/2024 COMP. METAB OLIC PANEL (14) bilirubin, total 0.3 mg/dL 0.0-1. 2 normal Not Available [facility] ([facility]) [address] [facility] [place], [address], 03/14/2024 18:37:19 03/06/20 24 03/07/2024 COMP. METAB OLIC PANEL (14) alkaline phosphatase 80 IU/L 44-121 normal Not Available [facility] ([facility]) [address] [facility] [place], [address], 03/14/2024 18:37:19 03/06/20 24 03/07/2024 COMP. METAB OLIC PANEL (14) AST (SGOT) 47 IU/L 0-40 above high normal Not Available [facility] ([facility]) [address] [facility] [place], [address], 03/14/2024 18:37:19 03/06/20 24 03/07/2024 COMP. METAB OLIC PANEL (14) ALT (SGPT) 58 IU/L 0-32 above high normal Not Available [facility] ([facility]) [address] [facility] [place], [address], 03/14/2024 18:37:19 03/06/20 24 03/07/2024 LIPID PANEL cholesterol, total 119 mg/dL 100-19 9 normal Not Available [facility] ([facility]) [address] [facility], [place], [address], 03/14/2024 18:37:19 03/06/20 24 03/07/2024 LIPID PANEL triglyceride s 75 mg/dL 0-149 normal Not Available [facility] ([facility]) [address] [facility], [place], [address], 03/14/2024 18:37:19 03/06/20 24 03/07/2024 LIPID PANEL HDL cholesterol 51 mg/dL >39 normal Not Available [facility] ([facility]) [address] [facility], [place], [address], 03/14/2024 18:37:19 03/06/20 24 03/07/2024 LIPID PANEL VLDL cholesterol apurva 15 mg/dL 5-40 Not Available [facility] ([facility]) [address] [facility], [place], [address], 03/14/2024 18:37:19 03/06/20 24 03/07/2024 LIPID PANEL LDL chol calc ([facility]) 53 mg/dL 0-99 Not Available [facility] ([facility]) [address] [place], [address], 03/14/2024 18:37:19 03/06/20 24 03/07/2024 LIPID PANEL LDL calc comment: LOCAL [employer]IVER Not Available [facility] ([facility]) [address] [place], [address], 03/14/2024 18:37:19 03/06/20 24 03/14/2024 VITAM IN E vitamin E(alpha tocopherol) 12.2 mg/L 9.0-29 .0 Not Available [facility] ([facility]) [address] [place], [address], 03/14/2024 18:37:20 03/06/2003/14/2024 VITAM IN E vitamin [...] in E defic ient. Not Available [facility] ([facility]) [address] [facility], [place], [address], 03/14/2024 18:37:20 03/06/2003/07/2024 HEMOG LOBIN A1C hemoglobin A1C 5.4 % 4.8-5. 6 normal Predi abete s: 5.7 - 6.4 Diabe inessa: >6.4 Glyce amauri contr ol for adult s with diabe inessa: <7.0 Not Available [facility] ([facility]) [address] [facility], [place], [address], 03/14/2024 18:37:20 03/06/2003/07/2024 FOLAT E (FOLI C ACID) , SERUM folate (folic acid), serum >20.0 NG/mL >3.0 A serum folat e yanet ntrat ion of less than 3.1 ng/mL is consi dered to repre sent clini apurva defic iency . Not Available [facility] ([facility]) [address] [facility], [place], [address], 03/14/2024 18:37:21 03/06/2003/14/2024 VITAM IN A, SERUM [...] sever vinod defic ient. This test was pedro pablo elizabeth and its perfo rmanc e ayesha cteri stics deter mined by [facility]. It has not been clear ed or appro viki by the Food and Drug Admin istra tion. Not Available [facility] ([facility]) [address] [facility], [place], [address], 03/14/2024 18:37:21 03/06/20 24 03/07/2024 VITAM IN [...] um and D. Joanna roque [place]: The [facility] . 2. Junie lugo [place], Garrick wallace [place], Valeria off-F christen i TURCIOS, et al. Evalu ation , treat ment, and preve ntion of vitam in D defic iency : an Endoc rine Socie ty clini apurva pract ice guide line. JCEM. 2010; 96(7) :1911 -30. Not Available [facility] ([facility]) [address] [facility], [place], [address], 03/14/2024 18:37:21 03/06/20 24 03/12/2024 VITAM IN B1 (THIA MINE) , BLOOD vit. B1, whole blood 290.9 nmol/ L 66.5-2 00.0 above high normal Not Available [facility] ([facility]) [address] [facility], [place], [address], 03/14/2024 18:37:22 03/06/20 24 03/12/2024 METHY LMALO ALICIA ACID, SERUM methylmaloni c acid, serum 360 nmol/ L 0-378 Not Available [facility] ([facility]) [address] [facility], [place], [address], 03/14/2024 18:37:22 03/06/20 24 03/08/2024 COPPE R, SERUM OR PLASM A copper, serum or plasma 117 ug/dL 80-158 Detec tion Limit = 5 Not Available [facility] ([facility]) [address] [facility], [place], [address], 03/14/2024 18:37:23 03/06/20 24 03/08/2024 ZINC, PLASM A OR SERUM zinc, plasma or serum 87 ug/dL 44-115 normal Detec tion Limit = 5 Not Available [facility] ([facility]) [address] [facility], [place], [address], 03/14/2024 18:37:23 03/06/20 24 03/07/2024 PREAL BUMIN prealbumin 20 mg/dL 10-36 Not Available [facility] ([facility]) [address] [facility], [place], [address], 03/14/2024 18:37:23 03/06/20 24 03/08/2024 SELEN IUM, BLOOD selenium, blood 168 ug/L 100-34 0 Detec tion Limit = 10 Not Available [facility] ([facility]) [address] [facility], [place], [address], 03/14/2024 18:37:24 07/15/19 25 07/15/2024 CBC NO DIFF (HEMO GRAM) WBC 5.9 K/uL 4.0-10 .5 Not Available [facility] ([facility]) [address], [place], [address], 07/15/2024 09:51:52 07/15/19 25 07/15/2024 CBC NO DIFF (HEMO GRAM) RBC 5.0 M/mm3 4.2-6. 4 Not Available [facility] ([facility]) [address], [place], [address], 07/15/2024 09:51:52 07/15/19 25 07/15/2024 CBC NO DIFF (HEMO GRAM) HGB 14.8 gm/dL 12.5-1 6.0 Not Available [facility] ([facility]) [address], [place], [address], 07/15/2024 09:51:52 07/15/19 25 07/15/2024 CBC NO DIFF (HEMO GRAM) HCT 44.8 % 37.0-4 7.0 Not Available [facility] ([facility]) [address], [place], [address], 07/15/2024 09:51:52 07/15/19 25 07/15/2024 CBC NO DIFF (HEMO GRAM) MCV 89.4 fL 78-100 Not Available [facility] ([facility]) [address] [facility], [place], [address], 07/15/2024 09:51:52 07/15/19 25 07/15/2024 CBC NO DIFF (HEMO GRAM) MCH 29.5 pg 27-31 Not Available [facility] ([facility]) [address] [facility], [place], [address], 07/15/2024 09:51:52 07/15/19 25 07/15/2024 CBC NO DIFF (HEMO GRAM) MCHC 33.0 g/dL 32-36 Not Available [facility] ([facility]) [address] [place], [address], 07/15/2024 09:51:52 07/15/19 25 07/15/2024 CBC NO DIFF (HEMO GRAM) RDW 14.9 % 11.5-1 4.0 high Not Available [facility] ([facility]) [address] , [place], [address], 07/15/2024 09:51:52 07/15/19 25 07/15/2024 CBC NO DIFF (HEMO GRAM) platelet count 233 K/uL 150-45 0 Not Available [facility] ([facility]) [address] , [place], [address], 07/15/2024 09:51:52 07/15/19 25 07/15/2024 CBC NO DIFF (HEMO GRAM) MPV 8.9 fL 6-9.5 Not Available [facility] ([facility]) [address] , [place], [address], 07/15/2024 09:51:52 07/15/19 25 07/15/2024 CBC NO DIFF (HEMO GRAM) manual differential NO Not Available [facility] ([facility]) [address] , [place], [address], 07/15/2024 09:51:52 07/15/1907/15/2024 PT (PROT HROMB IN TIME) W INR prothrombin time 10.4 secon ds 9.3-11 .4 Not Available [facility] ([facility]) [address] , [place], [address], 07/15/2024 10:13:39 07/15/1907/15/2024 PT (PROT HROMB IN TIME) W INR [...] Mecha nical Heart Valve s Not Available [facility] ([facility]) [address] , [place], [address], 07/15/2024 10:13:39 07/15/19 25 07/15/2024 COMP METAB OLIC PANEL sodium 136 mmol/ L 136-14 5 Not Available [facility] ([facility]) [address] , [place], [address], 07/15/2024 10:18:53 07/15/19 25 07/15/2024 COMP METAB OLIC PANEL potassium 4.6 mmol/ L 3.6-5. 0 Not Available [facility] ([facility]) [address] , [place], [address], 07/15/2024 10:18:53 07/15/19 25 07/15/2024 COMP METAB OLIC PANEL chloride 101 mmol/ L 98-107 Not Available [facility] ([facility]) [address] , [place], [address], 07/15/2024 10:18:53 07/15/19 25 07/15/2024 COMP METAB OLIC PANEL carbon dioxide 29.4 mmol/ L 21.0-3 2.0 Not Available [facility] ([facility]) [address] , [place], [address], 07/15/2024 10:18:53 07/15/19 25 07/15/2024 COMP METAB OLIC PANEL anion gap 10.2 Not Available [facility] ([facility]) [address] , [place], [address], 07/15/2024 10:18:53 07/15/19 25 07/15/2024 COMP METAB OLIC PANEL glucose 98 mg/dL 70-120 Not Available [facility] ([facility]) [address] , [place], [address], 07/15/2024 10:18:53 07/15/19 25 07/15/2024 COMP METAB OLIC PANEL BUN 31 mg/dL 7-18 high Not Available [facility] ([facility]) [address], [place], [address], 07/15/2024 10:18:53 07/15/19 25 07/15/2024 COMP METAB OLIC PANEL creatinine 0.9 mg/dL 0.6-1. 3 Not Available [facility] ([facility]) [address], [place], [address], 07/15/2024 10:18:53 07/15/19 25 07/15/2024 COMP METAB [...] romero ing kiney funct ion. Not Available [facility] ([facility]) [address], [place], [address], 07/15/2024 10:18:53 07/15/19 25 07/15/2024 COMP METAB OLIC PANEL total protein 7.4 g/dL 6.4-8. 2 Not Available [facility] ([facility]) [address], [place], [address], 07/15/2024 10:18:53 07/15/19 25 07/15/2024 COMP METAB OLIC PANEL albumin 3.9 g/dL 3.4-5. 0 Not Available [facility] ([facility]) [address], [place], [address], 07/15/2024 10:18:53 07/15/19 25 07/15/2024 COMP METAB OLIC PANEL globulin 3.5 Not Available [facility] ([facility]) [address], [place], [address], 07/15/2024 10:18:53 07/15/19 25 07/15/2024 COMP METAB OLIC PANEL alb/glob ratio 1.1 0.7-2 Not Available [facility] ([facility]) [address], [place], [address], 07/15/2024 10:18:53 07/15/19 25 07/15/2024 COMP METAB OLIC PANEL calcium 9.4 mg/dL 8.5-10 .5 Not Available [facility] ([facility]) [address], [place], [address], 07/15/2024 10:18:53 07/15/19 25 07/15/2024 COMP METAB OLIC PANEL bilirubin total 0.60 mg/dL 0.10-1 .00 Not Available [facility] ([facility]) [address] , [place], [address], 07/15/2024 10:18:53 07/15/19 25 07/15/2024 COMP METAB OLIC PANEL AST (SGOT) 38 U/L 0-37 high Not Available [facility] ([facility]) [address] , [place], [address], 07/15/2024 10:18:53 07/15/19 25 07/15/2024 COMP METAB OLIC PANEL ALT (SGPT) 66 U/L 0-65 high Not Available [facility] ([facility]) [address] , [place], [address], 07/15/2024 10:18:53 07/15/19 25 07/15/2024 COMP METAB OLIC PANEL alk phosphatase 83 U/L 46-116 Not Available [facility] ([facility]) [address] , [place], [address], 07/15/2024 10:18:53 07/15/19 25 07/18/2024 CISNEROS FIBRO SURE PLUS alpha 2-macroglobu oralia, qn 266 mg/dL 110-27 6 Not Available [facility] ([facility]) [address] [place], [address], 07/18/2024 06:10:53 07/15/19 25 07/18/2024 CISNEROS FIBRO SURE PLUS haptoglobin 88 mg/dL 37-355 Not Available [facility] ([facility]) [address] [facility], [place], [address], 07/18/2024 06:10:53 07/15/19 25 07/18/2024 CISNEROS FIBRO SURE PLUS apolipoprote in A-1 167 mg/dL 116-20 9 Not Available [facility] ([facility]) [address] [facility], [place], [address], 07/18/2024 06:10:53 07/15/19 25 07/18/2024 CISNEROS FIBRO SURE PLUS bilirubin, total 0.4 mg/dL 0.0-1. 2 Not Available [facility] ([facility]) [address] [place], [address], 07/18/2024 06:10:53 07/15/19 25 07/18/2024 CISNEROS FIBRO SURE PLUS GGT 32 IU/L 0-60 Not Available [facility] ([facility]) [address] [place], [address], 07/18/2024 06:10:53 07/15/19 25 07/18/2024 CISNEROS FIBRO SURE PLUS ALT (SGPT) p5p 63 IU/L 0-40 high Not Available [facility] ([facility]) [address] [place], [address], 07/18/2024 06:10:53 07/15/19 25 07/18/2024 CISNEROS FIBRO SURE PLUS AST (SGOT) p5p 42 IU/L 0-40 high Not Available [facility] ([facility]) [address] [place], [address], 07/18/2024 06:10:53 07/15/19 25 07/18/2024 CISNEROS FIBRO SURE PLUS cholesterol, total 122 mg/dL 100-19 9 Not Available [facility] ([facility]) [address] , [place], [address], 07/18/2024 06:10:53 07/15/19 25 07/18/2024 CSINEROS FIBRO SURE PLUS glucose, serum 102 mg/dL 70-99 high Not Available [facility] ([facility]) [address] , [place], [address], 07/18/2024 06:10:53 07/15/19 25 07/18/2024 CISNEROS FIBRO SURE PLUS triglyceride s 99 mg/dL 0-149 Not Available [facility] ([facility]) [address] , [place], [address], 07/18/2024 06:10:53 07/15/19 25 07/18/2024 CISNEROS FIBRO [...] Stage F4 - Cirrh osis Not Available [facility] ([facility]) [address] , [place], [address], 07/18/2024 06:10:53 07/15/19 25 07/18/2024 CISNEROS FIBRO SURE PLUS fibrosis stage F1-F2 Not Available [facility] ([facility]) [address] , [place], [address], 07/18/2024 06:10:53 07/15/19 25 07/18/2024 CISNEROS FIBRO SURE PLUS fibrosis score 0.34 0.00-0 .21 high Not Available [facility] ([facility]) [address] [place], [address], 07/18/2024 06:10:53 07/15/19 25 07/18/2024 CISNEROS FIBRO SURE PLUS steatosis score 0.48 0.00-0 .40 high Not Available [facility] ([facility]) [address] [place], [address], 07/18/2024 06:10:53 07/15/1907/18/2024 CISNEROS FIBRO SURE PLUS steatosis grade Commen t S1 - Mild Steat osis (But Clini zuleyka Signi fican t) (5- 33%) Not Available [facility] ([facility]) [address] [place], [address], 07/18/2024 06:10:53 07/15/19 25 07/18/2024 CISNEROS FIBRO SURE PLUS steatosis scoring Commen t . <=0.4 0 = S0 - No Steat osis (<5%) 0.40 - 0.55 = S1 - Mild Steat osis (but Clini zuleyka Signi fican t) (5-33 %) >0.55 = S2S3- Moder ate to Sever e Steat osis (Clin icall y Signi fican t) (34-1 00%) Not Available [facility] ([facility]) [address] [place], [address], 07/18/2024 06:10:53 07/15/19 25 07/18/2024 CISNEROS FIBRO SURE PLUS cisneros scoring Commen t . <=0.2 5 = N0 - No CISNEROS/ MASH 0.25 - 0.50 = N1 - Mild CISNEROS/ MASH 0.50 - 0.75 = N2 - Moder ate CISNEROS/ MASH >0.75 = N3 - Sever e CISNEROS/ MASH Not Available [facility] ([facility]) [address] [place], [address], 07/18/2024 06:10:53 07/15/19 25 07/18/2024 CISNEROS FIBRO SURE PLUS cisneros grade Commvince t N3 - Sever e CISNEROS Not Available [facility] ([facility]) [address], [place], [address], 07/18/2024 06:10:53 07/15/19 25 07/18/2024 CISNEROS FIBRO SURE PLUS cisneros score 0.79 0.00-0 .25 high Not Available [facility] ([facility]) [address], [place], [address], 07/18/2024 06:10:53 07/15/19 25 07/18/2024 CISNEROS FIBRO SURE PLUS limitations Commvince t [...] ction s of fibro sis. Not Available [facility] ([facility]) [address], [place], [address], 07/18/2024 06:10:53 07/15/19 25 07/18/2024 CISNEROS FIBRO SURE PLUS methodology: Wanda Grossman The sachi inessa teste d are perfo rmed by [facility]- Speci fic metho ds. Not inten ded for use with other diagn ostic consi derat ions. Not Available [facility] ([facility]) [address], [place], [address], 07/18/2024 06:10:53 07/15/19 25 07/18/2024 CISNEROS FIBRO SURE PLUS interpretati on: Commen t . Quant itati ve resul ts of 10 bioch emica ls in combi natio n with age and gende r, are sachi zed using a compu tatio nal algor ithm to provi de a quant itati ve surro gate marke r (0.0- 1.0) of liver fibro sis ([place] vir F0-F4 ), hepat ic steat osis [...] fican t NAFLD /MASL D fibro sis ([place] vir F2-F4 ) and 11% had cirrh [...] ficit y of 71%. 3 Not Available [facility] ([facility]) [address], [place], [address], 07/18/2024 06:10:53 07/15/19 25 07/18/2024 CISNEROS FIBRO SURE PLUS comment: Commvince t . This test was devel oped and its perfo rmanc e ayesha cteri stics deter mined by [facility]. It has not been clear ed or appro viki by the Food and Drug Admin istra tion. . For quest ions regar ding this repor t pleas e conta ct custo lester servi ce at [phone]. . Refer ences : . 1. Vito [...] . Perfo rmed at: - [facility] [address] [place] [address] Lab Direc tor: Massiel ross MD, Phone : [phone] Not Available [facility] ([facility]) [address], [place], [address], 07/18/2024 06:10:53 12/09/19 25 12/09/2024 FE+TI BC+FE R iron bind.cap.(TI BC) 336 ug/dL 250-45 0 normal Not Available [facility] ([facility]) [address] [place], [address], 12/15/2024 14:37:18 12/09/19 25 12/09/2024 FE+TI BC+FE R UIBC 214 ug/dL 118-36 9 normal Not Available [facility] ([facility]) [address] [place], [address], 12/15/2024 14:37:18 12/09/19 25 12/09/2024 FE+TI BC+FE R iron 122 ug/dL 27-139 normal Not Available [facility] ([facility]) [address] [place], [address], 12/15/2024 14:37:18 12/09/19 25 12/09/2024 FE+TI BC+FE R iron saturation 36 % 15-55 normal Not Available [facility] ([facility]) [address] [place], [address], 12/15/2024 14:37:18 12/09/19 25 12/09/2024 FE+TI BC+FE R ferritin 31 NG/mL 15-150 normal Not Available [facility] ([facility]) [address] [place], [address], 12/15/2024 14:37:18 12/09/19 25 12/09/2024 TSH+F REE T4 TSH 2.100 uIU/m L 0.450- 4.500 normal Not Available [facility] ([facility]) [address] [place], [address], 12/15/2024 14:37:19 12/09/19 25 12/09/2024 TSH+F REE T4 T4,free(dire ct) 0.83 NG/dL 0.82-1 .77 normal Not Available [facility] ([facility]) [address] [place], [address], 12/15/2024 14:37:19 12/09/19 25 12/08/2024 CBC WITH DIFFE RENTI AL/PL ATELE T WBC 6.1 x10e3 /uL 3.4-10 .8 normal Not Available [facility] ([facility]) [address] [place], [address], 12/15/2024 14:37:20 12/09/19 25 12/08/2024 CBC WITH DIFFE RENTI AL/PL ATELE T RBC 4.92 x10e6 /uL 3.77-5 .28 normal Not Available [facility] ([facility]) [address] [place], [address], 12/15/2024 14:37:20 12/09/19 25 12/08/2024 CBC WITH DIFFE RENTI AL/PL ATELE T hemoglobin 14.9 g/dL 11.1-1 5.9 normal Not Available [facility] ([facility]) [address] [place], [address], 12/15/2024 14:37:20 12/09/19 25 12/08/2024 CBC WITH DIFFE RENTI AL/PL ATELE T hematocrit 45.6 % 34.0-4 6.6 normal Not Available [facility] ([facility]) [address] [place], [address], 12/15/2024 14:37:20 12/09/19 25 12/08/2024 CBC WITH DIFFE RENTI AL/PL ATELE T MCV 93 fL 79-97 normal Not Available [facility] ([facility]) [address] [place], [address], 12/15/2024 14:37:20 12/09/19 25 12/08/2024 CBC WITH DIFFE RENTI AL/PL ATELE T MCH 30.3 pg 26.6-3 3.0 normal Not Available [facility] ([facility]) [address] [place], [address], 12/15/2024 14:37:20 12/09/19 25 12/08/2024 CBC WITH DIFFE RENTI AL/PL ATELE T MCHC 32.7 g/dL 31.5-3 5.7 normal Not Available [facility] ([facility]) [address] [facility], [place], [address], 12/15/2024 14:37:20 12/09/19 25 12/08/2024 CBC WITH DIFFE RENTI AL/PL ATELE T RDW 12.5 % 11.7-1 5.4 Not Available [facility] ([facility]) [address] [facility], [place], [address], 12/15/2024 14:37:20 12/09/19 25 12/08/2024 CBC WITH DIFFE RENTI AL/PL ATELE T platelets 234 x10e3 /uL 150-45 0 normal Not Available [facility] ([facility]) [address] [place], [address], 12/15/2024 14:37:20 12/09/19 25 12/08/2024 CBC WITH DIFFE RENTI AL/PL ATELE T neutrophils 56 % not estab. normal Not Available [facility] ([facility]) [address] [place], [address], 12/15/2024 14:37:20 12/09/19 25 12/08/2024 CBC WITH DIFFE RENTI AL/PL ATELE T lymphs 28 % not estab. normal Not Available [facility] ([facility]) [address] [place], [address], 12/15/2024 14:37:20 12/09/19 25 12/08/2024 CBC WITH DIFFE RENTI AL/PL ATELE T monocytes 10 % not estab. normal Not Available [facility] ([facility]) [address] [facility], [place], [address], 12/15/2024 14:37:20 12/09/19 25 12/08/2024 CBC WITH DIFFE RENTI AL/PL ATELE T eos 5 % not estab. normal Not Available [facility] ([facility]) [address] [facility], [place], [address], 12/15/2024 14:37:20 12/09/19 25 12/08/2024 CBC WITH DIFFE RENTI AL/PL ATELE T basos 1 % not estab. normal Not Available [facility] ([facility]) [address] [facility], [place], [address], 12/15/2024 14:37:20 12/09/19 25 12/08/2024 CBC WITH DIFFE RENTI AL/PL ATELE T immature cells [employer] Not Available [facility] ([facility]) [address] [place], [address], 12/15/2024 14:37:20 12/09/19 25 12/08/2024 CBC WITH DIFFE RENTI AL/PL ATELE T neutrophils (absolute) 3.5 x10e3 /uL 1.4-7. 0 normal Not Available [facility] ([facility]) [address] [place], [address], 12/15/2024 14:37:20 12/09/19 25 12/08/2024 CBC WITH DIFFE RENTI AL/PL ATELE T lymphs (absolute) 1.7 x10e3 /uL 0.7-3. 1 normal Not Available [facility] ([facility]) [address] [place], [address], 12/15/2024 14:37:20 12/09/19 25 12/08/2024 CBC WITH DIFFE RENTI AL/PL ATELE T monocytes(ab solute) 0.6 x10e3 /uL 0.1-0. 9 normal Not Available [facility] ([facility]) [address] [facility], [place], [address], 12/15/2024 14:37:20 12/09/19 25 12/08/2024 CBC WITH DIFFE RENTI AL/PL ATELE T eos (absolute) 0.3 x10e3 /uL 0.0-0. 4 normal Not Available [facility] ([facility]) [address] [facility], [place], [address], 12/15/2024 14:37:20 12/09/19 25 12/08/2024 CBC WITH DIFFE RENTI AL/PL ATELE T baso (absolute) 0.1 x10e3 /uL 0.0-0. 2 normal Not Available [facility] ([facility]) [address] [facility], [place], [address], 12/15/2024 14:37:20 12/09/19 25 12/08/2024 CBC WITH DIFFE RENTI AL/PL ATELE T immature granulocytes 0 % not estab. Not Available [facility] ([facility]) [address] [place], [address], 12/15/2024 14:37:20 12/09/19 25 12/08/2024 CBC WITH DIFFE RENTI AL/PL ATELE T immature grans (abs) 0.0 x10e3 /uL 0.0-0. 1 Not Available [facility] ([facility]) [address] [place], [address], 12/15/2024 14:37:20 12/09/19 25 12/08/2024 CBC WITH DIFFE RENTI AL/PL ATELE T NRBC [employer] Not Available [facility] ([facility]) [address] [place], [address], 12/15/2024 14:37:20 12/09/19 25 12/08/2024 CBC WITH DIFFE RENTI AL/PL ATELE T hematology comments: [employer] Not Available [facility] ([facility]) [address] [facility], [place], [address], 12/15/2024 14:37:20 12/09/19 25 12/09/2024 COMP. METAB OLIC PANEL (14) glucose 91 mg/dL 70-99 normal Not Available [facility] ([facility]) [address] [facility] [place], [address], 12/15/2024 14:37:21 12/09/19 25 12/09/2024 COMP. METAB OLIC PANEL (14) BUN 33 mg/dL 8-27 above high normal Not Available [facility] ([facility]) [address] [facility] [place], [address], 12/15/2024 14:37:21 12/09/19 25 12/09/2024 COMP. METAB OLIC PANEL (14) creatinine 0.86 mg/dL 0.57-1 .00 normal Not Available [facility] ([facility]) [address] [facility], [place], [address], 12/15/2024 14:37:21 12/09/19 25 12/09/2024 COMP. METAB OLIC PANEL (14) eGFR 74 mL/mi n/1.7 3 >59 normal Not Available [facility] ([facility]) [address] [place], [address], 12/15/2024 14:37:21 12/09/19 25 12/09/2024 COMP. METAB OLIC PANEL (14) BUN/creatini ne ratio 38 12-28 above high normal Not Available [facility] ([facility]) [address] [place], [address], 12/15/2024 14:37:21 12/09/19 25 12/09/2024 COMP. METAB OLIC PANEL (14) sodium 139 mmol/ L 134-14 4 normal Not Available [facility] ([facility]) [address] [place], [address], 12/15/2024 14:37:21 12/09/19 25 12/09/2024 COMP. METAB OLIC PANEL (14) potassium 4.4 mmol/ L 3.5-5. 2 normal Not Available [facility] ([facility]) [address] [facility] [place], [address], 12/15/2024 14:37:21 12/09/19 25 12/09/2024 COMP. METAB OLIC PANEL (14) chloride 104 mmol/ L 96-106 normal Not Available [facility] ([facility]) [address] [facility] [place], [address], 12/15/2024 14:37:21 12/09/19 25 12/09/2024 COMP. METAB OLIC PANEL (14) carbon dioxide, total 21 mmol/ L 20-29 normal Not Available [facility] ([facility]) [address] [facility] [place], [address], 12/15/2024 14:37:21 12/09/19 25 12/09/2024 COMP. METAB OLIC PANEL (14) calcium 9.4 mg/dL 8.7-10 .3 normal Not Available [facility] ([facility]) [address] [facility] [place], [address], 12/15/2024 14:37:21 12/09/19 25 12/09/2024 COMP. METAB OLIC PANEL (14) protein, total 6.5 g/dL 6.0-8. 5 normal Not Available [facility] ([facility]) [address] [facility] [place], [address], 12/15/2024 14:37:21 12/09/19 25 12/09/2024 COMP. METAB OLIC PANEL (14) albumin 4.2 g/dL 3.9-4. 9 normal Not Available [facility] ([facility]) [address] [facility] [place], [address], 12/15/2024 14:37:21 12/09/19 25 12/09/2024 COMP. METAB OLIC PANEL (14) globulin, total 2.3 g/dL 1.5-4. 5 Not Available [facility] ([facility]) [address] [facility] [place], [address], 12/15/2024 14:37:21 12/09/19 25 12/09/2024 COMP. METAB OLIC PANEL (14) bilirubin, total 0.4 mg/dL 0.0-1. 2 normal Not Available [facility] ([facility]) [address] [facility] [place], [address], 12/15/2024 14:37:21 12/09/19 25 12/09/2024 COMP. METAB OLIC PANEL (14) alkaline phosphatase 87 IU/L 44-121 normal Not Available [facility] ([facility]) [address] [facility] [place], [address], 12/15/2024 14:37:21 12/09/19 25 12/09/2024 COMP. METAB OLIC PANEL (14) AST (SGOT) 62 IU/L 0-40 above high normal Not Available [facility] ([facility]) [address] [facility] [place], [address], 12/15/2024 14:37:21 12/09/19 25 12/09/2024 COMP. METAB OLIC PANEL (14) ALT (SGPT) 89 IU/L 0-32 above high normal Not Available [facility] ([facility]) [address] [facility] [place], [address], 12/15/2024 14:37:21 12/09/19 25 12/09/2024 LIPID PANEL cholesterol, total 117 mg/dL 100-19 9 normal Not Available [facility] ([facility]) [address] [facility] [place], [address], 12/15/2024 14:37:22 12/09/19 25 12/09/2024 LIPID PANEL triglyceride s 69 mg/dL 0-149 normal Not Available [facility] ([facility]) [address] [place], [address], 12/15/2024 14:37:22 12/09/19 25 12/09/2024 LIPID PANEL HDL cholesterol 59 mg/dL >39 normal Not Available [facility] ([facility]) [address] [place], [address], 12/15/2024 14:37:22 12/09/19 25 12/09/2024 LIPID PANEL VLDL cholesterol apurva 14 mg/dL 5-40 Not Available [facility] ([facility]) [address] [place], [address], 12/15/2024 14:37:22 12/09/19 25 12/09/2024 LIPID PANEL LDL chol calc ([facility]) 44 mg/dL 0-99 Not Available [facility] ([facility]) [address] [place], [address], 12/15/2024 14:37:22 12/09/19 25 12/09/2024 LIPID PANEL LDL calc comment: [employer] Not Available [facility] ([facility]) [address] [place], [address], 12/15/2024 14:37:22 12/09/19 25 12/15/2024 VITAM IN E vitamin E(alpha tocopherol) 13.1 mg/L 9.0-29 .0 Not Available [facility] ([facility]) [address] [place], [address], 12/15/2024 14:37:23 12/09/19 25 12/15/2024 VITAM IN [...] in E defic ient. Not Available [facility] ([facility]) [address] [facility], [place], [address], 12/15/2024 14:37:23 12/09/19 25 12/09/2024 HEMOG LOBIN A1C hemoglobin A1C 5.5 % 4.8-5. 6 normal Predi abete s: 5.7 - 6.4 Diabe inessa: >6.4 Glyce amauri contr ol for adult s with diabe inessa: <7.0 Not Available [facility] ([facility]) [address] [facility], [place], [address], 12/15/2024 14:37:24 12/09/19 25 12/09/2024 FOLAT E (FOLI C ACID) , SERUM folate (folic acid), serum >20.0 NG/mL >3.0 A serum folat e yanet ntrat ion of less than 3.1 ng/mL is consi dered to repre sent clini apurva defic iency . Not Available [facility] ([facility]) [address] [facility], [place], [address], 12/15/2024 14:37:24 12/09/19 25 12/15/2024 VITAM IN [...] Drug Admin istra tion. Not Available [facility] ([facility]) [address] [facility], [place], [address], 12/15/2024 14:37:25 12/09/19 25 12/09/2024 VITAM IN [...] Medic ine). 2009. Dottya ry refer ence intak es for calci um and D. Joanna roque [place]: [facility] . 2. Junie lugo MF, Garrick wallace [place], Valeria off-F aminaar i TURCIOS, et al. Evalu ation , treat ment, and preve ntion of vitam in D defic iency : an Endoc rine Socie ty clini apurva pract ice guide line. JCEM. 2010; 96(7) :1911 -30. Not Available [facility] ([facility]) [address] [place], [address], 12/15/2024 14:37:26 12/09/19 25 12/14/2024 VITAM IN B1 (THIA MINE) , BLOOD vit. B1, whole blood 324.9 nmol/ L 66.5-2 00.0 above high normal Not Available [facility] ([facility]) [address] [place], [address], 12/15/2024 14:37:27 12/09/19 25 12/13/2024 METHY LMALO ALICIA ACID, SERUM methylmaloni c acid, serum 278 nmol/ L 0-378 Not Available [facility] ([facility]) [address] [place], [address], 12/15/2024 14:37:28 12/09/19 25 12/11/2024 COPPE R, SERUM OR PLASM A copper, serum or plasma 106 ug/dL 80-158 Detec tion Limit = 5 Not Available [facility] ([facility]) [address] [facility], [place], [address], 12/15/2024 14:37:29 12/09/19 25 12/11/2024 ZINC, PLASM A OR SERUM zinc, plasma or serum 75 ug/dL 44-115 normal Detec tion Limit = 5 Not Available [facility] ([facility]) [address] [facility], [place], [address], 12/15/2024 14:37:30 12/09/19 25 12/09/2024 PREAL BUMIN prealbumin 22 mg/dL 10-36 Not Available [facility] ([facility]) [address] [facility], [place], [address], 12/15/2024 14:37:30 12/09/19 25 12/12/2024 SELEN IUM, BLOOD selenium, blood 155 ug/L 100-34 0 Detec tion Limit = 10 Not Available [facility] ([facility]) [address] [facility], [place], [address], 12/15/2024 14:37:31 Result Notes None recorded. Problems Name Problem SNOMED Code Status Onset Date Resolution Date Notes Provider Name and Address Organization Details Recorded Time Metabolic dysfuncti on-associ ated steatohep atitis 322898858 Active 2023 Ernesto Amezcua PA-C [address] , [place], [address] , [facility] - NT [facility] & [place] 5 14:30:35 Gastroeso phageal reflux disease without esophagit is 578018404 Active 2023 Ernesto Amezcua PA-C [address] , [place], [address] , [place] - [facility] & [place] 4 13:48:57 Chronic idiopathi c constipat ion 15567015 Active 2021 Not Available [facility] 3 16:06:44 Gastroeso phageal reflux disease 321069620 Active 2021 Not Available [facility] 3 16:06:44 Diarrhea 55815574 Active 2021 Not Available [facility] 3 16:06:44 Hypokalem ia 68428084 Active 2021 Not Available [facility] 3 16:06:44 Abdominal pain 89680588 Active 2021 Not Available [facility] 3 16:06:44 Myocardia l infarctio n 00577110 Completed 202103/25/2022 Azeb Quesada null, [place] - [facility] - [place] & [place] 2 14:37:03 Fibromyal dominique 992176435 Active 2021 Not Available [facility] 3 16:06:44 Mild dementia 50886923520 4108 Active 2021 Not Available [facility] 3 16:06:44 Chronic obstructi ve pulmonary disease 10813318 Active 2021 Not Available [facility] 3 16:06:44 Hiatal hernia 74419150 Completed 202103/25/2022 Azeb Quesada null, [place] - [facility] - [place] & [place] 2 14:38:57 Chronic depressio n 464791225 Active 2021 Not Available [facility] 3 16:06:44 Obesity 430766763 Active 2021 Ernesto Amezcua PA-C [address] [facility], [place], [address] , [place] - [place] - [place] & [place] 2 14:51:36 Hypertens silvino disorder 43598659 Active 2022 Not Available [facility] 3 16:06:44 Dyslipide franc 111338807 Active 2022 Not Available [facility] 3 16:06:44 Morbid obesity 495355699 Active 2022 Not Available [facility] 3 16:06:44 Dizziness 656190971 Active 2022 Not Available [facility] 3 16:06:44 Intention al weight loss 153711942 Active 2022 Not Available [facility] 3 16:06:44 Constipat ion 02719018 Active 2022 Ernesto Amezcua PA-C [address], [place], [address] [place] [address] , [place] - [facility] - [place] & [place] 3 15:41:42 Overweigh t 281127468 Active 2023 Aden Husain DNP, TUR[employer] PUNCH OPERATOR, LOCAL TANKER TRUCK DRIVER-C [address], [place], [address] [place] [address] , [place] - [place] - [place] & [place] 4 09:57:50 Fatigue 25613454 Active 2023 Aden Husain DNP, TUR[employer] PUNCH OPERATOR, LOCAL T[employer]ER TRUCK DRIVER-C [address], [place], [address] [place] [address] , [place] - [place] & [place] 4 10:00:39 Liver enzymes level above reference range 877069145 Active 2023 Aden Husain DNP, TUR[employer] 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 Procedures Surgical History Date Name Laterality Status Provider Name and Address Organization Details Recorded Time 07/23/[address], LD [address] , [place], [address], [facility] - [facility] & [place] 08/14/2022 16:17:22 05/28/20 21 Date of Last Pap Smear completed RIMMA RAY RD, LD [address] , [place], [address], [place] - [facility] [facility] & [place] 08/14/2022 16:17:22 12/20/19 21 Date of Last Colonoscopy completed RIMMA RAY RD, LD [address] , [place], [address], [facility] - LP[facility] & [place] 08/14/2022 16:17:22 11/17/19 20 Most Recent Bone Density completed RIMMA RAY RD, LD [address] , [place], [address], [facility] - [facility] & [place] 08/14/2022 16:17:22 Appendectomy completed Not Available [facility] 13:08:39 extraction of wisdom tooth completed Not Available [facility] 08/10/2022 13:08:39 lithotripsy completed Not Available [facility] 07/14 13:08:39 Colonoscopy completed Marychuy Quesada [place] - [place] [facility] & [place] 08/13/2022 11:21:25 EGD completed Marychuy Quesada [place] - [facility] & [place] 08/13/2022 11:21:36 Gastric Bypass completed Dipesh Dow [place] - [facility] & [place] 12/29/2022 08:20:27 Imaging Results None recorded. Procedure Notes None recorded. Medical Equipment None Reported. Allergies Allergen ID Allergen Name Allergen Category Reaction Reaction Severity Criticality Documentation Date Start Date Code Code System Note Provider Name and Address Organization Details Recorded Time 57641 Product containin g penicilli n (product) medicatio n Not available Not available Not available 03/25/2022 14971 8001 SNOMED [facility]eb [facility]illon [place] [facility] [place] 2 14:01:10 913130 indometha gen medicatio n Not available Not available Not available 06/19/2024 5781 RxNorm Other react ions and sever ities : 'Adve rse react ion to subst ance' . Kary Rust null, [facility] & [place] 4 14:05:45 812198 penicilli n V Not available Not available Not available Not available 06/19/2024 7984 RxNorm Other react ions and sever ities : 'Anap hylax is due to subst ance' . Kary aguillon, [facility] & [place] 4 14:05:45 908508 milnacipr an medicatio n Not available Not available Not available 06/19/2024 74249 0 RxNorm Other react ions and sever ities : 'Adve rse react ion to subst ance' . Kary Rust null, [facility] & [place] 4 14:05:45 09136 Savella medicatio n Not available Not available Not available 08/13/2022 98827 6 RxNorm Marychuy Quesada [facility], [facility] & [place] 3 11:18:57 Medications Name Sig Start Date [...] cm 98.1 [degF] 75 /min 24.8 kg/m2 86819.7 4 g 96 mm[Hg] 70 mm[Hg] Araceli Velasquez EDY [facility] & [place] 5 09:01:03 Date Recorded Body height Body mass index (BMI) Body weight Body temperature Heart rate Provider Name and Address Organization Details Last Updated DateTime 12/27/2024 162.56 cm 24.7 kg/m2 03616.58 g 98.4 [degF] 97 /min [facility] [place] 5 14:16:54 Date Recorded Body height Body temperature Heart rate Body mass index (BMI) Body weight Systolic blood pressure Diastolic blood pressure Provider Name and Address Organization Details Last Updated DateTime 4 162.56 cm 97.8 [degF] 76 /min 26.2 kg/m2 02569.8 4 g 109 mm[Hg] 73 mm[Hg] Araceli SNOW [facility] & [place] 4 09:28:16 Date Recorded Body height Body temperature Heart rate Body mass index (BMI) Body weight Systolic blood pressure Diastolic blood pressure Provider Name and Address Organization Details Last Updated DateTime 4 162.56 cm 98.7 [degF] 89 /min 25 kg/m2 56709.4 1 g 113 mm[Hg] 81 mm[Hg] Araceli SNOW [facility] & [place] 4 09:17:32 Date Recorded Body height Body mass index (BMI) Body weight Body temperature Heart rate Heart rate Oxygen saturation Oxygen saturation in Arterial blood by Pulse oximetry Systolic blood pressure Diastolic blood pressure Provider Name and Address Organization Details Last Updated DateTime 4 162.56 cm 24.8 kg/m2 64984.0 2 g 97.4 [degF] 99 /min 98 /min 97 % 97 % 107 mm[Hg] 73 mm[Hg] Francisca Nolascowell [facility] & [place] 4 13:05:54 Social History Question Answer Notes LastModified by RecordSetter Details LastModified Time Tobacco Smoking Status Former Smoker quit 3 years ago Araceli Velasquez [facility], [facility] & [place] 09/06/2023 09:49:34 Do You Have An Advance Directive? No [email or web address] Information not available 08/14/2022 Are You Blind Or Do You Have Difficulty Seeing? No [email or web address] Information not available 08/14/2022 What Was The Date Of Your Most Recent Tobacco Screening? 08/10/2022 Information not available 08/14/2022 Are You Passively Exposed To Smoke? No [email or web address] Information not available 08/14/2022 How Much Tobacco Do You Smoke? No [email or web address] Information not available 08/14/2022 Sex: Male Functional Status Question Answer Note LastModified by RecordSetter Details LastModified Time Do you use any illicit or recreational drugs? No [email or web address] Information not available 08/10/2022 What is your level of alcohol consumption? None [email or web address] Information not available 08/10/2022 Do you or have you ever used smokeless tobacco? Never used smokeless tobacco [email or web address] Information not available 08/14/2022 What is your exercise level? None [email or web address] Information not available 08/14/2022 Mental Status Question Answer Note LastModified by Organization D etails LastModified Time Do you feel stressed (tense, restless, nervous, or anxious, or unable to sleep at night)? [id number] [email or web address] Information not available 08/14/2022 Family History Relationship Description Onset Age of this Age Resolved Age Notes LastModified by Organization Details LastModified Time Father Obesity [email or web address] Not availa ble 08/10/2022 08:30:50 Father Diabetes mellitus [email or web address] Not available 2024 14:11:10 Father Hypertensive disorder [email or web address] Not available 08:31:23 Father Heart disease [email or web address] Not available 08:31:48 Father Cerebrovascu lar accident [email or web address] Not available 08/10/2022 08:32:04 Father Hypercholest [email or web address] Not available 08:32:27 Father Asthma [email or web address] Not available 12/27/2024 14:11:10 Father Allergy pt. added direct ly (08/10) [email or web address] Not available 08/10/2022 13:04:20 Father Disorder of endocrine system pt. added direct ly (08/10) [email or web address] Not available 08/10/2022 13:07:54 Maternal Grandmother Obesity [email or web address] Not available 0 08/10/2022 08:30:50 Maternal Grandmother Hypertensive disorder [email or web address] Not available 08:31:23 Maternal Grandmother Heart disease [email or web address] Not available 08:31:49 Mother Hypertensive disorder [email or web address] Not available 08:31:23 Mother Heart disease [email or web address] Not available 08:31:48 Mother Cerebrovascu lar accident [email or web address] Not available 08/10/2022 08:32:04 Mother Hypercholest erolemia [email or web address] Not available 08:32:27 Mother Allergy pt. added direct ly (08/10) [email or web address] Not available 08/10/2022 13:04:20 Brother Hypertensive disorder [email or web address] Not available 08:31:23 Brother Heart disease Not available 08:31:49 Brother Hypercholest erolemia [email or web address] Not available 08:32:27 Brother Cerebrovascu lar accident pt. added direct ly (09/03) [email or web address] Not available 09/03/2023 11:07:40 Sister Hypertensive disorder [email or web address] Not available 08:31:23 Sister Hypercholest erolemia Not available 08:32:27 Maternal Grandfather Heart disease [email or web address] Not available 08:31:49 Maternal Uncle Allergy pt. added direct ly (08/10) [email or web address] Not available 08/10/2022 13:04:20 Paternal Grandmother Obesity pt. added direct ly (08/10) [email or web address]-13 Not available 08/10/2022 13:08:19 Medical History Condition Response Gout N Other Y Kidney Stones Y Depression Y COPD Y Osteoporosis/Osteopenia Y Constipation Y Heart Attack ([place]) Y Spine Problems Y Obstructive Sleep Apnea [...] virus, quadrivalent, preservative 7 completed Not Available [facility] 01/01/2023 16:06:44 Influenza, recombinant, quadrivalent, PF 1 completed Not Available [facility] 01/01/2023 16:06:44 Influenza, recombinant, quadrivalent, PF 0 completed Not Available [facility] 01/01/2023 16:06:44 zoster recombinant 1 completed Not Available [facility] 01/01/2023 16:06:44 zoster recombinant 1 completed Not Available [facility] 01/01/2023 16:06:44 MMR 6 completed Not Available [facility] 01/01/2023 16:06:44 COVID-19, mRNA, LNP-S, PF, 100 mcg/0.5mL dose or 50 mcg/0.25mL dose 1 completed Not Available [facility] 01/01/2023 16:06:44 COVID-19, mRNA, LNP-S, PF, 100 mcg/0.5mL dose or 50 mcg/0.25mL dose 1 completed Not Available [facility] 01/01/2023 16:06:44 COVID-19, mRNA, LNP-S, PF, 100 mcg/0.5mL dose or 50 mcg/0.25mL dose 1 completed Not Available [facility] 01/01/2023 16:06:44 Pneumococcal conjugate PCV20, polysaccharide [id number] conjugate, adjuvant, PF 2 completed Not Available [facility] 01/01/2023 16:06:44 pneumococcal polysaccharide PPV23 1 completed Not Available [facility] 01/01/2023 16:06:44 pneumococcal polysaccharide PPV23 7 completed Not Available [facility] 01/01/2023 16:06:44 Influenza, split virus, quadrivalent, PF 9 completed Not Available [facility] 01/01/2023 16:06:44 Influenza, split virus, quadrivalent, PF 2 completed Not Available [facility] 01/01/2023 16:06:44 Influenza, split virus, quadrivalent, PF 8 completed Not Available [facility] 01/01/2023 16:06:44 influenza, unspecified formulation 4 completed Kary Rust null, [place] - [place] [facility] & [place] 08/08/2024 13:51:39 Respiratory syncytial virus (RSV) MAB, unspecified 4 completed Araceli Velasquez null, [place] - [place] [facility] & [place] 06/06/2024 09:21:15 Influenza, high-dose, quadrivalent, PF 3 completed Kary Rust null, [place] - [place] [facility] & [facility] 08/08/2024 13:51:39 RSV, recombinant, protein subunit RSVpreF, adjuvant reconstituted, 0.5 mL, PF 4 completed Kary Rust null, [place] - [place] - [place] & [place] 08/08/2024 13:51:39 Influenza, high-dose, trivalent, PF 4 completed Kary Rust [facility], [place] - [facility] - [place] & [place] 08/08/2024 13:51:39 Past Encounters Encounter ID Performer Location Encounter Start Date Encounter Closed Date Diagnosis/Indication Diagnosis SNOMED-CT Code Diagnosis ICD10 Code Diagnosis Note [id number] Ernesto Amezcua PA-C [facility] [address] [facility] [address] [place] [address] 03/25/2022 13:56:07 03/25/2022 14:27:57 Chronic idiopathic constipation 03149748 K59.04 Continue current bowel regimen with stool softners, fiber supplement , and Miralax as needed Gastroesop hageal reflux disease 306783840 K21.9 Increase PPI to twice daily due to refractory symptoms Obesity 477537865 E66.9 Referral to Bariatrics to discuss weight loss options. [id number] RANI Rosario [facility] [address] [facility] [address] [place] [address] 08/13/2022 07:57:41 08/13/2022 11:52:06 Obesity 787769954 E66.9 The patient will be scheduled for [...] been completed Chronic ob structive pulmonary disease 31622688 J44.9 Hypertensive disorder 38 545413 I10 Dyslipidemia 502113474 E 78.5 Hx CAD s/p [place] 2014 Gastroesop hageal reflux disease 291738521 K21.9 We discussed concerns of worsening gastroesop [...] lifelong contraindi cation to tobacco/ni cotine use [id number] Ernesto Amezcua PA-C [facility] [address] [facility] [address] [place] [address] 09/21/2022 13:44:59 09/21/2022 14:12:51 Chronic idiopathic constipation 99709338 K59.04 Gastroesop hageal reflux disease 523834672 K21.9 Obesity 645696197 E66.9 [id number] Gabo Sahu DO [facility] [address] [facility] [address] [place] [address] 12/16/2022 08:52:42 12/16/2022 13:36:20 Morbid obesity 415661809 E66.01 Pre-surger y evaluation 417740392 Z01.818 Postoperative pain 85662 9007 G89.18 Hypertensive disorder 38 826360 I10 Gastroesop hageal reflux disease 092183502 K21.9 [id number] Aden Husain DNP, ARSENIO, LOCAL T[employer]ER TRUCK DRIVER-C [facility] [address] [facility] [address] [place] [address] 12/29/2022 07:58:00 12/29/2022 10:15:25 History of bariatric surgical procedure 245961178 Z98.84 Chronic depression 41132 0009 F32.A Chronic ob structive pulmonary disease 71528882 J44.9 Dyslipidemia 760322588 E 78.5 Fibromyalgia 681889748 M 79.7 Hypertensive disorder 38 767115 I10 advised to follow back up with pcp regarding elevated blood pressure and dizziness. Morbid obesity 498534213 E66.01 Dizziness 924892919 R42 Intentiona l weight loss 205853009 R63.8 [id number] Aden Husain DNP, ARSENIO, LOCAL T[employer]ER TRUCK DRIVER-C [facility] [address] [facility] [address] [place] [address] 01/19/2023 09:44:10 01/19/2023 11:03:53 History of bariatric surgical procedure 638185745 Z98.84 Intentiona l weight loss 610596143 R63.8 History of gastrectomy 147750023 Z90.3 Advised qid intake 50% protein 4519-7749 calories/d y less than 100 carbs/dyPa tient was see dietitian today. Patient is status post bariatric surgery and at increased risk for vitamin deficienci es and malnutriti on. Bariatric vitamin panel ordered today. Patient will be contacted to correct any vitamin deficienci es. Chronic ob structive pulmonary disease 07534014 J44.9 Dyslipidemia 888560493 E 78.5 Fibromyalgia 689610455 M 79.7 Hypertensive disorder 38 588390 I10 advised to follow back up with pcp regarding elevated blood pressure and dizziness. Morbid obesity 170529369 E66.01 Dizziness 530135839 R42 [id number] Aden Husain, DNP, TURRET PUNCH OPERATOR, LOCAL TANKER TRUCK DRIVER-C [facility] [address] [facility] [address] [place] [address] 03/19/2023 10:10:54 03/19/2023 11:00:26 History of bariatric surgical procedure 830340569 Z98.84 Intentiona l weight loss 563834531 R63.8 History of gastrectomy 223336594 Z90.3 Advised qid intake 50% protein 4760-5734 calories/d y less than 100 carbs/dyLo ng [...] to correct any vitamin deficienci es. Dyslipidemia 283432913 E 78.5 Fibromyalgia 619209885 M 79.7 Obesity 304525412 E66.9 [id number] Ernesto Amezcua PA-C [facility] [address] [facility] [address] [place] [address] 05/20/2023 14:50:51 05/20/2023 15:32:08 Obesity 310214798 E66.9 History of bypass of stomach 893859356 Z98.84 History of gastroesophageal reflux disease 0235633135 9106 Z87.19 Constipation 12175452 K5 9.00 [id number] Aden Husain, DNP, TURRET PUNCH OPERATOR, LOCAL T[employer]ER TRUCK DRIVER-C [facility] [address] [facility] [address] [place] [address] 05/28/2023 09:12:11 05/28/2023 09:46:17 History of bariatric surgical procedure 262078078 Z98.84 Intentiona l weight loss 352346913 R63.8 History of gastrectomy 024496331 Z90.3 Advised qid intake 50% protein 5540-3514 calories/d y less than 100 carbs/dy Long [...] correct any vitamin deficienci es. Chronic depression 22982 0009 F32.A Chronic id iopathic constipation 21972246 K59.04 Dyslipidemia 719561206 E 78.5 Fibromyalgia 307292077 M 79.7 Hypertensive disorder 38 511610 I10 Obesity 802287040 E66.[id number]AS RDN, LD [facility] n [facility] Adv S[facility] [address] [facility] [address] [place] [address] 05/28/2023 09:47:21 05/28/2023 10:33:33 Obesity 257221637 E66.9 Discussed lifestyle modificati ons for continued weight loss and optimal nutrition Deficient knowledge of food and/or nutrition 2517355371 Z76.89 RDN advised pt on ways she can increase her protein and calorie intake, including adding peanut butter with fruits and making mixed dishes such as reduced fat casseroles . Advised pt to try baked apples with a small amount of canola oil, cinnamon and Splenda or similar alternativ e as needed. [id number] Aden Husain DNP, ARSENIO, LOCAL TANKER TRUCK DRIVERJevonC [facility] [address] [facility] [address] [place] [address] 09/06/2023 09:37:05 09/06/2023 10:21:52 Dyslipidemia 823655309 E78.5 Fibromyalgia 050943043 M 79.7 Hypertensive disorder 38 851823 I10 Overweight 613201997 E66 .3 Intentiona l weight loss 632383476 R63.8 History of gastrectomy 919130083 Z90.3 Advised qid intake 50% protein 5666-8646 calories/d y less than 100 carbs/dy Long [...] to correct any vitamin deficienci es. Fatigue 74600239 R53.83 [id number] Aden Husain DNP, ARSENIO, LOCAL T[employer]ER TRUCK DRIVER-C [facility] [address] [facility] [address] [place] [address] 12/07/2023 13:03:52 12/07/2023 14:39:49 History of bariatric surgical procedure 034573211 Z98.84 Intentiona l weight loss 488340116 R63.8 History of gastrectomy 530853064 Z90.3 Advised qid intake 50% protein 9650-2063 calories/d y less than 100 carbs/dy Long [...] to correct any vitamin deficienci es. Dyslipidemia 993957168 E 78.5 Hypertensive disorder 38 541956 I10 Overweight 264100557 E66 .3 Chronic ob structive pulmonary disease 69261262 J44.9 Liver enzy mes level above reference range 417453656 R74.01 [id number] Jonas Ball MD [facility] [address] [place] [address] 12/21/2023 14:58:32 12/21/2023 16:40:24 Obesity 985191272 E66.9 History of bypass of stomach 615996352 Z98.84 History of gastroesophageal reflux disease 7812430166 9106 Z87.19 Constipation 59355587 K5 9.00 Liver enzy mes level above reference range 691283704 R74.01 [id number] Ernesto Amezcua PA-C [facility] [address] [place] [address] 03/02/2024 08:10:22 03/02/2024 09:21:52 Obesity 074460568 E66.9 History of bypass of stomach 733684361 Z98.84 History of gastroesophageal reflux disease 1390305875 9106 Z87.19 Liver enzy mes level above reference range 336273895 R74.01 Irritable bowel syndrome characterized by constipation 297908485 K58.1 [id number] Aden Husain, DNP, TURRET PUNCH OPERATOR, LOCAL TANKER TRUCK DRIVER-C [facility] and Adv Surg [address] [facility] [address] [place] [address] 03/06/2024 09:07:07 03/06/2024 10:03:41 History of bariatric surgical procedure 476971306 Z98.84 Intentiona l weight loss 904168360 R63.8 History of gastrectomy 510025605 Z90.3 Advised qid intake 50% protein 9426-2511 calories/d y less than 100 carbs/dyLo ng [...] to correct any vitamin deficienci es. Dyslipidemia 392706832 E 78.5 Hypertensive disorder 38 300952 I10 Overweight 524509727 E66 .3 Chronic id iopathic constipation 06788365 K59.04 [id number] Aden Husain, DNP, TURRET PUNCH OPERATOR, LOCAL TANKER TRUCK DRIVER-C [facility] Bariatric s and Adv Surg [address] [facility] [address] [place] [address] 06/06/2024 09:07:53 06/06/2024 09:44:14 Intentional weight loss 564747485 R63.8 History of gastrectomy 551013117 Z90.3 Advised qid intake 50% protein 6454-6028 calories/d y less than 100 carbs/dyLo ng [...] [facility] nutritional [facility] 473097905 Z91.89 Chronic ob structive pulmonary disease 88073236 J44.9 Dyslipidemia 375007973 E 78.5 Hypertensive disorder 38 568815 I10 Liver enzy mes level above reference range 504732152 R74.01 Overweight 516836492 E66 .3 [id number] Ernesto Amezcua PA-C [facility] [address] [facility] [address] [place] [address] 06/26/2024 12:47:56 06/26/2024 13:41:37 Chronic idiopathic constipation 45008242 K59.04 Metabolic dysfunction-associate d steatohepatitis 024595365 K75.81 Liver enzy mes level above reference range 520357837 R74.01 Gastroesop hageal reflux disease without esophagitis 620069736 K21.9 History of colonoscopy 8229067837 09 Z98.177 [id number] Aden Husain, DNP, TURRET PUNCH OPERATOR, LOCAL TANKER TRUCK DRIVER-C [facility] Bariatric s and Adv Surg [address] [facility] [address] [place] [address] 12/08/2024 08:48:35 12/08/2024 09:28:10 History of bariatric surgical procedure 357823302 Z98.84 Intentiona l weight loss 735137694 R63.8 History of gastrectomy 546356964 Z90.3 Advised qid intake 50% protein 9920-9273 calories/d y less than 100 carbs/dy Long [...] [facility] nutritional deficit 061623874 Z91.89 Dyslipidemia 917554821 E 78.5 Hypertensive disorder 38 348123 I10 Overweight 361285832 E66 .3 [id number] Ernesto Amezcua PA-C [facility] [address] [facility] [address] [place] [address] 12/27/2024 14:10:09 12/27/2024 14:38:18 Liver enzymes level above reference range 977587101 R74.01 Metabolic dysfunction-associate d steatohepatitis 215177797 K75.81 Gastroesop hageal reflux disease without esophagitis 356698453 K21.9 Chronic id iopathic constipation 83322543 K59.04 History of colonoscopy 3560439031 09 Z98.890 Health Concerns Section Related Observation LastModified by Organization Detai ls LastModified Time None Recorded Concern Status LastModified by Organization Details LastModified Time None Recorded Advance Directives Directive N: Payers Insurance Date Sequence Insurance Name Policy Number Policy Acosta Covered Member ID Acosta Member ID Guarantor Name 12/07/2024 1 MEDICARE B-IN: WPS Maria Isabel Mark Doran [id number] Maria Isabeldesiree HollandEspinoza 12/24/2024 2 AARP (MEDICARE SUPPLEMENT) Maria Isabeldesiree Doran [id number] Maria Isabeldesiree Doran 12/07/2024 [place] Maria Isabel Mark Doran [id number] Maria Isabel Espinoza 12/24/2024 1 [place] Maria Isabel Mark Doran [id number] Maria Isabel [place] 12/04/2020 3 [place] [id number] R Stanislav Doran [id number] Maria Isabeldesiree HollandEspinoza 12/07/2024 2 [place] Maria Isabel Mark Doran [id number] [place]iree [place] 12/07/2024 4 [employer] (MEDICARE REPLACEMENT/ ADVANTAGE - HMO) Maria Isabel Mark Doran [id number] Maria Isabeldesiree Doran 12/07/2024 1 [employer] (MEDICARE REPLACEMENT/ ADVANTAGE - PPO) Maria Isabel Mark Doran [id number] Maria Isabeldesiree HollandEspinoza Notes Date Note Type Note Provider Name [...] = 1269 kilo calories Aden Husain, DNP, TURRET PUNCH OPERATOR, LOCAL TANKER TRUCK DRIVER-C [address], [place], [address], [facility] & [place] 03/06/2024 10:54:05 06/06/2024 text/html Patient presents the [...] Metabolic Rate = 1309 kilo calories Aden Husain DNP, TURRET PUNCH OPERATOR, LOCAL TANKER TRUCK DRIVER-C [address], [place], [address], [facility] [place] 06/06/2024 11:11:04 06/26/2024 text/html CURRENT (06/26/24): Ms. [...] bypass 1.5 years ago. Ernesto Amezcua PA-C [address], [place], [address], [facility] & [place] 06/26/2024 13:49:44 12/08/2024 text/html Patient presents the [...] = 1261 kilo calories Aden Husain, CAMMIE, TURRET PUNCH OPERATOR, LOCAL TANKER TRUCK DRIVER-C [address], [place], [address], [facility] - [place] & [place] 12/08/2024 09:20:24 12/27/2024 text/html PREVIOUS (06/26/24): Ms. [...] overall at this time. Ernesto Amezcua PA-C [address], [place], [address], [facility] - [place] & [place] 12/27/2024 14:41:34 OBGyn Episode No OBEpisode recorded.
--- OUTSIDE RECORDS SUMMARY | 2025-01-02 10:56 | XMS_ITS | Clinical Summary ---
Author Organization [facility] Address [address] [place] [address] Care Team Providers Care Superintendent Sanitation Name Role Phone Saul Benitez MD Primary Care Provider [phone] Family History Medical History Relation Name Comments [...] of Treatment Not on file Care Teams Superintendent Sanitation Relationship Specialty Start Date End Date Saul Benitez MD [address] [place] [address] PCP - General 11/22/20
== END 2025-01-02 23:59 | disposition home or self-care (01) ==
LOC: RAD 10:52
PROVIDERS: PCP Family Medicine; Visit Provider Family Medicine
DX: N28.89 Other specified disorders of kidney and ureter (principal); R93.5 Abnormal findings on diagnostic imaging of other abdominal regions, including retroperitoneum; R31.9 Hematuria, unspecified; R10.9 Unspecified abdominal pain
CPT/HCPCS: 74176

== ENCOUNTER 2025-01-04 15:32 | Observation (INO) | payer MEDICARE, SELFPAY ==
[2025-01-04 15:45] VITALS: BP 118/67; PULSE 78; RESP 18; TEMP 36.5; O2SAT 93; BMI 24.3
--- NOTE | 2025-01-04 15:57 | EXP.HP ---
History of Present Illness *Admission Date: 01/04/25 *Reason for visit:: pyelonephritis *History of present illness: Ms. Doran is a 69yo female who was seen inititally in the office of A on 12/29/24 with complaints of weakness, chills, and nausea. She was evaluated and her WBC was elevated. She could not provide a urine specimen. She was started on cefdinir and had f/u scheduled. On 01/02/25, she returned with left flank pain and generally feeling worse after 4 days of empiric antibiotics. Her appetite had been diminished. She was starting to have urinary hesitancy and was sweating. A CT was ordered that showed a pyelonephritis. She was switched to levaquin. She returned to the office today still feeling poorly and dehydrated and she will be admitted. [facility] Disclaimer: The information contained in this section may have been updated after the patient was seen, as this information can be updated by other users. Medical History COPD mixed type Vertigo Screening for lung cancer COPD exacerbation HTN (hypertension) History of smoking 30 or more pack years History of 2019 novel coronavirus disease (COVID-19) Allergic rhinitis, unspecified Chronic obstructive pulmonary disease with acute respiratory distress Lung nodule Smoking greater than 30 pack years Dyspnea on exertion Chronic hypoxemic respiratory failure Respiratory symptoms Atypical angina Hypotension Carotid artery stenosis Diastolic dysfunction Chronic obstructive lung disease Hypertensive heart disease without heart failure Hyperlipidemia Coronary arteriosclerosis Surgical History History of gastric bypass Hx of tubal ligation Hx of appendectomy History of bladder suspension procedure Family History Diabetes Coronary artery disease Hyperlipidemia Heart attack Cancer Hypertension Thyroid disorder Asthma Social History Smoking Status: Former smoker tobacco type: cigarettes packs per day: 1 alcohol intake: never counseling provided: none substance use type: denies use current occupational status: other Travel in the last 8 weeks?: None household members: spouse housing: house caffeine: Yes Have you lived/traveled outside US in past 30 days?: No Contact w/someone who lives/traveled outside US past 30 days?: No Exposure to someone with infectious disease in past 14 days?: No Do you have a fever (greater than 100.4 F or 38 C)?: No Have you tested positive for COVID-19?: No Exposed to someone with COVID-19 in past 14 days?: No Do you have a sore throat?: No Do you have a cough?: No Do you have any weakness?: No Do you have any diarrhea?: No Are you experiencing any unusual bleeding?: No Do you have any muscle aches/pain?: No Do you have any abdominal pain?: No Are you experiencing loss of taste or smell?: No Other Medical History Have you received the Flu Vaccine for this season: Yes Have you received the Pneumonia Vaccine: Yes Review of Systems Constitutional Constitutional: Reports chills, Reports fatigue, Reports headache(s), Reports malaise and Reports weakness Eyes Eyes: Denies blurry vision and Denies diplopia ENT Ears, Nose, Mouth, and Throat: Reports headache(s), Denies nasal congestion and Denies sore throat *Cardiovascular Cardiovascular: Denies chest pain and Denies dyspnea *Respiratory Respiratory: Denies cough and Denies dyspnea *Gastrointestinal Gastrointestinal: Reports nausea and Reports vomiting *Genitourinary Genitourinary: Denies difficulty voiding, Denies dysuria and Reports flank pain *Musculoskeletal Musculoskeletal: Reports back pain (left flank) *Neurologic Neurologic: Reports headache(s) and Reports weakness Endocrine Endocrine: Reports fatigue Meds Home Medications and Allergies Home Medications ?Medication ?Instructions ?Recorded ?Confirmed ?Type multivitamin 1 tab PO DAILY 11/22/17 01/05/25 History lamotrigine 150 mg tablet 150 mg PO BID 04/29/20 01/04/25 History oxybutynin chloride 10 mg 10 mg PO DAILY bladder 10/02/20 01/04/25 History tablet,extended release 24 hr venlafaxine 225 mg tablet,extended 225 mg PO DAILY 02/02/23 01/04/25 History release 24 hr calcium citrate 200 mg PO BID 03/26/23 01/04/25 History cholecalciferol (vitamin D3) 1,250 1,250 mcg PO DAILY 03/26/23 01/04/25 History mcg (50,000 unit) capsule pantoprazole 40 mg tablet,delayed 40 mg PO BID 09/02/23 01/05/25 History release trazodone 100 mg tablet 200 mg PO HS 09/02/23 01/04/25 History donepezil 10 mg tablet (Aricept) 10 mg PO HS 09/13/23 01/05/25 History atorvastatin 40 mg tablet 40 mg PO DAILY 11/17/23 01/04/25 History hydroxyzine HCl 10 mg tablet 10 mg PO DAILY 02/15/24 01/04/25 History sumatriptan succinate 50 mg tablet 50 mg PO NEEDED PRN Migraine 03/06/24 01/05/25 History Headache hydroxyzine HCl 10 mg tablet 20 mg PO HS 05/26/24 01/04/25 History linaclotide 290 mcg capsule 290 mcg PO DAILY 05/26/24 01/04/25 History (Linzess) clobetasol 0.05 % topical ointment 1 applic topical BID 2 weeks #45 08/29/24 01/05/25 Rx grams montelukast 10 mg tablet 10 mg PO HS 11/02/24 01/05/25 History aspirin 81 mg tablet,delayed 81 mg PO DAILY 01/05/25 01/04/25 History release bisoprolol fumarate 5 mg tablet 5 mg PO DAILY 01/05/25 01/05/25 History denosumab 60 mg/mL subcutaneous 60 mg SQ [id number] 01/05/25 01/05/25 History syringe ezetimibe 10 mg tablet (Zetia) 10 mg PO DAILY 01/05/25 01/04/25 History fluticasone fur. 200 mcg-umeclid 1 ea inhalation DAILY 01/05/25 01/05/25 History 62.5 mcg-vilant 25 mcg inhalat.powder (Trelegy Ellipta) isosorbide mononitrate 30 mg 30 mg PO DAILY 01/05/25 01/05/25 History tablet,extended release 24 hr levofloxacin 750 mg tablet 750 mg PO DAILY 01/05/25 01/05/25 History quetiapine 200 mg tablet 200 mg PO HS 01/05/25 01/05/25 History New Prescriptions to Start Prescriptions: Allergies Allergy/AdvReac Type Severity Reaction Status Date / Time Penicillins Allergy Severe S-ANAPHYLAX Verified 12/19/24 10:38 IS milnacipran (From SAVELLA) Allergy Unknown Unknown Verified 12/19/24 10:38 allergy reaction Exam Data for Last 24 hours Vital signs and Labs for Last 24 Hours: Temp Pulse Resp BP Pulse Ox O2 Del Method 97.7 F 78 18 118/67 93 L Room Air 01/04/25 15:45 01/04/25 15:45 01/04/25 15:45 01/04/25 15:45 01/04/25 15:45 01/04/25 15:45 I & O for Last 24 hours: Intake & Output 01/02/25 01/03/25 01/04/25 01/05/25 11:59 11:59 11:59 11:59 Weight 142 lb Constitutional Comments: Does not appear to feel well *Routine HEENT Exam Head: Present normocephalic Eye: Present EOMI ENT: Present mucous membranes dry *Routine Neck Exam Neck: Present supple and full ROM *Routine Respiratory Exam Respiratory: Present CTA bilaterally *Routine Cardiovascular Exam Cardiovascular: Present RRR *Routine Abdominal Exam Abdominal: Present soft, normoactive bowel sounds and tenderness (LMQ) *Routine Rectal Exam Rectal:: deferred *Routine Genitalia Exam Genitalia:: deferred *Routine Extremities Exam Extremities: Absent edema *Routine Skin Exam Skin: Present intact *Routine Neurological Exam Neurological: Present alert and oriented X3 H&P: Result Impressions CT 1. No evidence of upper urinary tract stone disease or obstruction 2. Mild perinephric stranding, nonspecific however UTI is not excluded. 3. Lower pole right renal mass, 25 mm, not well-characterized without intravenous contrast. Assessment and Plan *Assessment and plan (1) Pyelonephritis: Status: Acute Category: Medical Code(s): N12 - Tubulo-interstitial nephritis, not specified as acute or chronic (2) Adjustment disorder with anxious mood: Problem Comment: Moderate anxiety when pain is present. Status: Acute Category: Medical Code(s): F43.22 - Adjustment disorder with anxiety (3) COPD mixed type: Problem Comment: Former smoker Status: Chronic Category: Medical Code(s): J44.9 - Chronic obstructive pulmonary disease, unspecified (4) History of gastric bypass: Problem Comment: 09/21/2024: BMI 24.7. Status: Chronic Category: Surgical Code(s): Z98.84 - Bariatric surgery status (5) Tobacco use: Status: Chronic Category: Social Hx Code(s): Z72.0 - Tobacco use (6) GERD (gastroesophageal reflux disease): Status: Chronic Qualifiers: Esophagitis presence: without esophagitis Qualified Code(s): K21.9 - Gastro-esophageal reflux disease without esophagitis Category: Medical Code(s): K21.9 - Gastro-esophageal reflux disease without esophagitis (7) CAD (coronary artery disease): Status: Chronic Qualifiers: Associated angina: without angina Coronary Disease-Associated Artery/Lesion type: [place] artery [place] vs. transplanted heart: [place] heart Qualified Code(s): I25.10 - Atherosclerotic heart disease of [place] coronary artery without angina pectoris Category: Medical Code(s): I25.10 - Atherosclerotic heart disease of [place] coronary artery without angina pectoris (8) Dehydration: Status: Acute Category: Medical Code(s): E86.0 - Dehydration Plan Patient has been started on Invanz and IVF's. Awaiting urine culture from the office of [facility].
--- NOTE | 2025-01-04 16:05 | PC.NURSE ---
Pt arrived to floor @1557
[2025-01-04 18:10] LABS: Basophils # 0.1 K/mm3 (0-0.2); Basophils % 0.8 % (0.1-2.0); Eosinophils # 0.4 Kmm3 (0.0-0.4); Eosinophils % 3.6 % (0.1-12.0); Hematocrit 41.5 % (37.0-47.0); Hemoglobin 13.6 g/dL (12.2-16.2); Immature Granulocytes # 0.88 10^3uL; Immature Granulocytes % 7.6 %; Lymphocytes # 1.6 K/mm3 (0.7-4.5); Lymphocytes % 13.9 % (10-50); Mean Corpuscular HGB Conc 32.8 g/dL (31.8-35.4); Mean Corpuscular Volume 88.5 fl (81-99); Mean Platelet Volume 8.7 fl (7.4-10.4); Monocytes # 0.7 K/mm3 (0.1-1.0); Monocytes % 5.8 % (1.7-9.3); Neutrophils # 7.9 K/mm3 (1.8-7.8); Neutrophils % 68.3 % (37.0-80.0); Nucleated Red Blood Cells # 0 10^3/uL; Nucleated Red Blood Cells % 0 %; Platelet Count 268 K/mm3 (142-424); Red Blood Count 4.69 M/mm3 (4.20-5.40); Red Cell Distribution Width 14.9 % (11.5-17.5); Red Cell Distribution Width-SD 47.8 fL; White Blood Count 11.5 K/mm3 (4.8-10.8)
[2025-01-04 18:15] LABS: MANUAL DIFFERENTIAL MANUAL DIFFERENTIAL (MANUAL DIFF)
[2025-01-04 18:24] LABS: Chloride 100 mmol/L (98-107)
[2025-01-04 18:25] LABS: Albumin Level 3.8 g/dl (3.5-5.0); Potassium 3.3 mmoL/L (3.5-5.1); Sodium 140 mmol/L (136-145)
[2025-01-04 18:27] LABS: Alanine Aminotransferase 110 U/L (12-78); Albumin/Globulin Ratio 1.1 (1.1-1.8); Alkaline Phosphatase 147 U/L (38-126); Anion Gap 16.3 mEq/L (5-15); Aspartate Amino Transferase 99 U/L (14-36); Bilirubin,Total 0.6 mg/dl (0.2-1.3); Blood Urea Nitrogen 27 mg/dl (7-17); Carbon Dioxide 27 mmol/L (22.0-30.0); Creatinine Clearance Estimated 56 mL/min (50-200); Estimated Glomerular Filt Rate 62 ml/min (>60); GFR (African American) 76 ML/MIN (>60); Globulin 3.5 g/dL (1.3-3.2); Total Protein,Serum 7.3 g/dl (6.3-8.2)
[2025-01-04 18:28] LABS: Calcium 9.5 mg/dl (8.4-10.2); Glucose 149 mg/dl (74-100)
[2025-01-04 18:54] LABS: Eosinophils % 4 % (0-3); Lymphocytes % 24 % (10-50); Monocytes % 9 % (2-9); Neutrophils % 62 % (42-76); Platelet Estimate Normal; Poikilocytosis 1+; Polychromasia 1+; Target Cells 1+; Total Cells Counted 100
[2025-01-04 19:51] LABS: Lactic Acid 0.6 mmol/L (0.7-2.1)
[2025-01-04 20:00] VITALS: BP 133/75; PULSE 81; RESP 17; TEMP 37.1; O2SAT 91
[2025-01-04] MEDS: ERTAPENEM SODIUM 1 GM in 0.9 % SODIUM CHLORIDE 50 ML IV (21:39)
[2025-01-04] MEDS: LACTATED RINGERS 1000ML 1,640 ML 820 ML IV (23:08)
[2025-01-05] MEDS: QUETIAPINE 100MG TABLET 200 MG PO (00:29)
[2025-01-05] MEDS: POTASSIUM CHLORIDE 20MEQ TAB 20 MEQ PO (00:31)
[2025-01-05] MEDS: PHA TO NURSING INSTRUCTION 1 EACH NOTAPPLIC (00:32)
--- NOTE | 2025-01-05 03:24 | PC.NURSE ---
Pt AOx4. Receiving fluids per provider order. Resting in bed with eyes closed. Respirations even and unlabored. Bed is low, locked, and call light is in reach.
[2025-01-05 04:00] VITALS: BP 103/71; PULSE 92; RESP 15; TEMP 36.9; O2SAT 96; BMI 25.2
--- NOTE | 2025-01-05 04:20 | PC.NURSE ---
This SRNA emptied trash and linens at 04:20
[2025-01-05 06:46] LABS: Basophils # 0.1 K/mm3 (0-0.2); Basophils % 1.3 % (0.1-2.0); Eosinophils # 0.4 Kmm3 (0.0-0.4); Hematocrit 37.4 % (37.0-47.0); Hemoglobin 12.3 g/dL (12.2-16.2); Immature Granulocytes # 0.81 10^3uL; Immature Granulocytes % 9.5 %; Lymphocytes # 1.7 K/mm3 (0.7-4.5); Lymphocytes % 19.3 % (10-50); Mean Corpuscular HGB Conc 32.9 g/dL (31.8-35.4); Mean Corpuscular Hemoglobin 29.1 pg (27.0-31.2); Mean Corpuscular Volume 88.4 fl (81-99); Monocytes # 0.7 K/mm3 (0.1-1.0); Monocytes % 8.1 % (1.7-9.3); Neutrophils # 4.9 K/mm3 (1.8-7.8); Neutrophils % 56.8 % (37.0-80.0); Nucleated Red Blood Cells # 0 10^3/uL; Nucleated Red Blood Cells % 0 %; Platelet Count 284 K/mm3 (142-424); Red Blood Count 4.23 M/mm3 (4.20-5.40); Red Cell Distribution Width 14.7 % (11.5-17.5); Red Cell Distribution Width-SD 47.9 fL; White Blood Count 8.6 K/mm3 (4.8-10.8)
[2025-01-05 06:49] LABS: MANUAL DIFFERENTIAL MANUAL DIFFERENTIAL (MANUAL DIFF)
[2025-01-05 06:52] LABS: Chloride 104 mmol/L (98-107); Sodium 141 mmol/L (136-145)
[2025-01-05 06:53] LABS: Potassium 3.7 mmoL/L (3.5-5.1)
[2025-01-05 06:55] LABS: Blood Urea Nitrogen 21 mg/dl (7-17); Creatinine Clearance Estimated 58 mL/min (50-200); Estimated Glomerular Filt Rate 83 ml/min (>60); GFR (African American) 101 ML/MIN (>60)
[2025-01-05 06:56] LABS: Anion Gap 11.7 mEq/L (5-15); Calcium 8.5 mg/dl (8.4-10.2); Carbon Dioxide 29 mmol/L (22.0-30.0); Glucose 92 mg/dl (74-100)
--- NOTE | 2025-01-05 07:47 | HMH.PHAINT1 ---
Pharmacy Intervention Comments: MEDICATION RECONCILIATION COMPLETED ON PATIENT USING EXTERNAL FILL HISTORY FROM PHARMACY. -DAVID DUFFY, [place]
[2025-01-05 08:00] VITALS: BP 113/70; PULSE 84; RESP 16; TEMP 36.7; O2SAT 92
[2025-01-05 08:03] LABS: Eosinophils % 1 % (0-3); Lymphocytes % 30 % (10-50); Monocytes % 10 % (2-9); Neutrophils % 59 % (42-76); Total Cells Counted 100
[2025-01-05 08:05] LABS: Platelet Estimate Normal; RBC Morphology Normal
--- NOTE | 2025-01-05 08:21 | P.PN_ITS ---
Subjective *Date: 01/05/25 *Time: 09:05 Interval history: Pt feels about the same today. She says the pain may be a little better this am. She is not able to eat but is drinking. She is still hurting in the suprapubic area and left flank. Medical Exam Vital signs and Labs for Last 24 Hours: Vital Signs Temp Pulse Resp BP Pulse Ox O2 Del Method 01/05/25 06:46 Room Air 01/05/25 05:00 Room Air 01/05/25 04:00 98.4 F 92 H 15 103/71 L 96 Nasal Cannula 01/05/25 03:00 Room Air 01/05/25 01:00 Room Air 01/04/25 23:00 Room Air 01/04/25 21:00 Room Air 01/04/25 20:00 Room Air 01/04/25 20:00 98.7 F 81 17 133/75 91 L 01/04/25 18:51 Room Air 01/04/25 17:00 Room Air 01/04/25 15:45 97.7 F 78 18 118/67 93 L Room Air 01/04/25 15:37 Room Air Intake and Output 01/04/25 01/05/25 01/05/25 19:59 03:59 11:59 Intake Total 120 / 1070 950 / 1070 Output Total 0 / 0 0 / 0 Balance 120 / 1070 950 / 1070 0 / 1070 Intake: Intake, Oral Amount 120 / 120 Intake, Total IV Amount 950 / 950 Ertapenem Sodium 1 gm In 0.9 % 50 / 50 Sodium Chloride 50 ml @ 100 mls /hr IV Q24H [facility] Rx#:[id number] Lactated Ringers 1000ML 1,640 900 / 900 ml @ 820 mls/hr IV .Q2H ONE Rx# :[id number] Output: Output, Urine Amount 0 / 0 0 / 0 Other: Weight 142 lb 147 lb 8 oz Patient Weight 01/05/25 11:59 Weight 147 lb 8 oz Laboratory Results - last 24 hr 01/04/25 18:02: WBC 11.5 H, RBC 4.69, Hgb 13.6, Hct 41.5, MCV 88.5, MCH 29.0, MCHC 32.8, RDW 14.9, Plt Count 268, MPV 8.7, Neut % (Auto) 68.3, Lymph % (Auto) 13.9, [place] % (Auto) 5.8, Eos % (Auto) 3.6, Baso % (Auto) 0.8, Neut # (Auto) 7.9 H, Lymph # (Auto) 1.6, [place] # (Auto) 0.7, Eos # (Auto) 0.4, Baso # (Auto) 0.1, Total Counted 100, Neutrophils % (Manual) 62, Lymphocytes % (Manual) 24, Atypical Lymphs % 1.0, Monocytes % (Manual) 9, Eosinophils % (Manual) 4 H, Platelet Estimate Normal, Polychromasia 1+, Poikilocytosis 1+, Target Cells 1+, Sodium 140, Potassium 3.3 L, Chloride 100, Carbon Dioxide 27, Anion Gap 16.3 H, BUN 27 H, Creatinine 0.90, Estimated Creat Clear 56, Estimated GFR 62, Est GFR ( Amer) 76, Glucose 149 H, Calcium 9.5, Total Bilirubin 0.6, AST 99 H, ALT 110 H, Alkaline Phosphatase 147 H, Total Protein 7.3, Albumin 3.8, Globulin 3.5 H, Albumin/Globulin Ratio 1.1 01/04/25 19:07: Lactate 0.6 L 01/05/25 06:16: WBC 8.6 D, RBC 4.23, Hgb 12.3, Hct 37.4, MCV 88.4, MCH 29.1, MCHC 32.9, RDW 14.7, Plt Count 284, MPV 9.0, Neut % (Auto) 56.8, Lymph % (Auto) 19.3, [place] % (Auto) 8.1, Eos % (Auto) 5.0, Baso % (Auto) 1.3, Neut # (Auto) 4.9, Lymph # (Auto) 1.7, [place] # (Auto) 0.7, Eos # (Auto) 0.4, Baso # (Auto) 0.1, Total Counted 100, Neutrophils % (Manual) 59, Lymphocytes % (Manual) 30, Monocytes % (Manual) 10 H, Eosinophils % (Manual) 1, Platelet Estimate Normal, RBC Morphology Normal, Sodium 141, Potassium 3.7, Chloride 104, Carbon Dioxide 29, Anion Gap 11.7, BUN 21 H, Creatinine 0.70 D, Estimated Creat Clear 58, Estimated GFR 83, Est GFR ( Amer) 101 D, Glucose 92 D, Calcium 8.5 I & O for Labs for Last 24 Hours: Intake & Output 01/02/25 01/03/25 01/04/25 01/05/25 11:59 11:59 11:59 11:59 Intake Total 1070 / 1070 Output Total 0 / 0 Balance 1070 / 1070 Weight 147 lb 8 oz Constitutional: Present no acute distress Respiratory: Present CTA bilaterally Cardiac: Present Reg Rate and Rhythm GI: Present soft; Absent distention or tenderness Extremities: Absent edema Skin: Present intact Assessment and Plan *Assessment and plan (1) Pyelonephritis: Status: Acute Category: Medical Code(s): N12 - Tubulo-interstitial nephritis, not specified as acute or chronic (2) Dehydration: Status: Acute Category: Medical Code(s): E86.0 - Dehydration (3) Hypokalemia: Status: Acute Category: Medical Code(s): E87.6 - Hypokalemia (4) Adjustment disorder with anxious mood: Problem Comment: Moderate anxiety when pain is present. Status: Acute Category: Medical Code(s): F43.22 - Adjustment disorder with anxiety (5) COPD mixed type: Problem Comment: Former smoker Status: Chronic Category: Medical Code(s): J44.9 - Chronic obstructive pulmonary disease, unspecified (6) History of gastric bypass: Problem Comment: 09/21/2024: BMI 24.7. Status: Chronic Category: Surgical Code(s): Z98.84 - Bariatric surgery status (7) Tobacco use: Status: Chronic Category: Social Hx Code(s): Z72.0 - Tobacco use (8) GERD (gastroesophageal reflux disease): Status: Chronic Qualifiers: Esophagitis presence: without esophagitis Qualified Code(s): K21.9 - Gastro-esophageal reflux disease without esophagitis Category: Medical Code(s): K21.9 - Gastro-esophageal reflux disease without esophagitis (9) CAD (coronary artery disease): Status: Chronic Qualifiers: Associated angina: without angina Coronary Disease-Associated Artery/Lesion type: [place] artery [place] vs. transplanted heart: [place] heart Qualified Code(s): I25.10 - Atherosclerotic heart disease of [place] coronary artery without angina pectoris Category: Medical Code(s): I25.10 - Atherosclerotic heart disease of [place] coronary artery without angina pectoris (10) Elevated liver enzymes: Status: Acute Category: Medical Code(s): R74.8 - Abnormal levels of other serum enzymes Plan Will continue Invanz and IVF's. Awaiting urine culture from the office of [facility]. Potassium has normalized. Renal function is stable. Dr. Regan entry - Saw patient, agree with above note.
--- NOTE | 2025-01-05 09:58 | HMH.PTEV ---
Physical Therapy Evaluation Rehab PT IP Evaluation Start: 01/04/25 16:13 Freq: .once Status: Active Protocol: Document 01/05/25 09:55 SYLVESTER (Rec: 01/05/25 09:58 SYLVESTER [id number]) Subjective/History History History Per H&P: Ms. Doran is a 69yo female who was seen inititally in the office of [facility] on 12/29/24 with complaints of weakness, chills, and nausea. She was evaluated and her WBC was elevated. She could not provide a urine specimen. She was started on cefdinir and had f/u scheduled. On 01/02/25, she returned with left flank pain and generally feeling worse after 4 days of empiric antibiotics. Her appetite had been diminished. She was starting to have urinary hesitancy and was sweating. A CT was ordered that showed a pyelonephritis. She was switched to levaquin. She returned to the office today still feeling poorly and dehydrated and she will be admitted. Subjective Subjective PLOF: Pt IND with all functional mobility, ADLs, and IADLs without AD use prior to hospitalization. Home: Single-story home with 0 NIKKO. Lives with Available assistance: able to assist if needed. New diagnosis of No cancer in past 12 months? [facility] How much help from another person do you currently need... Turning from your None back to your side while in a flat bed without using bedrails? Moving from lying on None back to sitting on the side of a flat bed without using bedrails? Moving to and from a None bed to a chair ( including a wheelchair)? Standing up from a None chair using your arms? (e.g., wheelchair, bedside chair) Walking in hospital None room? Climbing 3-5 steps None with a railing? Mobility Score 24 Mobility Level [facility] Mobility 8 Walk 250 feet or more Mobility Calculator Rehab PT IP Eval Objective Appearance Patient Behavior Appropriate,Cooperative Patient Orientation Person,Place Difficulty following none instructions Speech Pattern Clear Ambulation Patient Able to Yes Ambulate Ambulation Observation IP General Gait No Deviations/Normal Pattern Observation Ambulation Distance 20 (feet) Ambulation Assistive None Device Ambulation Ability Independent Balance Ability to Arise Able, w/o using arms Sitting Balance Steady, safe Standing Balance Narrow stance w/o support Dynamic Sitting Normal Balance Ability Dynamic Standing Normal Balance Ability Transfers Bed Transfer Ability Independent Sit to Stand Bed Independent Transfer Ability Rehab PT IP prob,goals,plan Problems Date of Evaluation: 01/05/25 Rehab Potential Rehab Potential Innapropriate for Skilled Therapy Discharge Plan PT Discharge Plan Pt most appropriate to d/c home when deemed medically necessary d/t current level of mobility, home set-up, and family support. Pt not appropriate for skilled acute care PT at this time d/t pt?s mobility being at baseline. Eval Complexity Eval Charge Codes 14230 - Moderate Complexity PHYSICIAN CERTIFICATION: I certify the specified therapy services for Maria Isabel Doran are required, authorized, and reviewed every 30 days.
[2025-01-05] MEDS: PAT OWN MED ***EZETIMIBE 10MG 10 MG PO (10:03)
[2025-01-05] MEDS: ASPIRIN EC 81MG TABLET 81 MG PO (10:03)
[2025-01-05] MEDS: PAT OWN MED ***PANTOPRAZOLE 40MG 40 MG PO ×2 (10:03→20:13)
[2025-01-05] MEDS: ISOSORBIDE MONO 30 MG PO (10:04)
[2025-01-05] MEDS: PAT OWN MED ***ATORVASTATIN 40MG 40 MG PO (10:05)
[2025-01-05] MEDS: PAT OWN MED ***LAMOTRIGINE 150 MG 1 EACH PO ×2 (10:05→20:20)
[2025-01-05] MEDS: LINACLOTIDE 290 MCG 1 EACH PO (10:09)
[2025-01-05] MEDS: ACETAMINOPHEN 325MG TAB 650 MG PO (11:45)
[2025-01-05 16:00] VITALS: BP 122/76; PULSE 83; RESP 18; TEMP 36.8; O2SAT 97
--- NOTE | 2025-01-05 19:04 | PC.NURSE ---
no significant changes from previous shift other than pt stating she feels much better. she said she is hopeful she will get to go home in the morning. no needs at this time.
[2025-01-05 19:53] VITALS: BP 135/78; PULSE 94; RESP 16; TEMP 36.9; O2SAT 95
[2025-01-05] MEDS: ERTAPENEM SODIUM 1 GM in 0.9 % SODIUM CHLORIDE 50 ML IV (20:13)
[2025-01-05] MEDS: PAT OWN MED ***MONTELUKAST SODIUM 10MG 10 MG PO (20:13)
[2025-01-05] MEDS: PAT OWN MED ***DONEPEZIL 10MG 10 MG PO (20:15)
[2025-01-06 04:00] VITALS: BP 132/76; PULSE 90; RESP 15; TEMP 36.9; O2SAT 90; BMI 25.2
--- NOTE | 2025-01-06 04:01 | PC.NURSE ---
This SRNA changed/emptied Linen bag and trash at 0400
--- NOTE | 2025-01-06 05:01 | PC.NURSE ---
Fresh Ice water given by this SRNA at [id number]
[2025-01-06 07:45] VITALS: BP 108/69; PULSE 105; RESP 16; TEMP 36.9; O2SAT 96
[2025-01-06 07:48] LABS: Basophils # 0.1 K/mm3 (0-0.2); Basophils % 1.4 % (0.1-2.0); Eosinophils # 0.3 Kmm3 (0.0-0.4); Eosinophils % 4.3 % (0.1-12.0); Hematocrit 38.2 % (37.0-47.0); Hemoglobin 12.6 g/dL (12.2-16.2); Immature Granulocytes # 0.58 10^3uL; Immature Granulocytes % 7.3 %; Lymphocytes # 1.8 K/mm3 (0.7-4.5); Lymphocytes % 22.2 % (10-50); Mean Corpuscular Hemoglobin 29.4 pg (27.0-31.2); Mean Platelet Volume 8.7 fl (7.4-10.4); Monocytes # 0.7 K/mm3 (0.1-1.0); Monocytes % 8.6 % (1.7-9.3); Neutrophils # 4.5 K/mm3 (1.8-7.8); Neutrophils % 56.2 % (37.0-80.0); Nucleated Red Blood Cells # 0 10^3/uL; Nucleated Red Blood Cells % 0 %; Platelet Count 323 K/mm3 (142-424); Red Blood Count 4.29 M/mm3 (4.20-5.40); Red Cell Distribution Width 14.7 % (11.5-17.5); Red Cell Distribution Width-SD 47.2 fL; White Blood Count 7.9 K/mm3 (4.8-10.8)
[2025-01-06 07:51] LABS: MANUAL DIFFERENTIAL MANUAL DIFFERENTIAL (MANUAL DIFF)
[2025-01-06 08:02] LABS: Chloride 106 mmol/L (98-107); Potassium 3.9 mmoL/L (3.5-5.1); Sodium 143 mmol/L (136-145)
[2025-01-06 08:05] LABS: Anion Gap 12.9 mEq/L (5-15); Blood Urea Nitrogen 18 mg/dl (7-17); Calcium 8.4 mg/dl (8.4-10.2); Carbon Dioxide 28 mmol/L (22.0-30.0); Creatinine Clearance Estimated 58 mL/min (50-200); Estimated Glomerular Filt Rate 83 ml/min (>60); GFR (African American) 101 ML/MIN (>60); Glucose 88 mg/dl (74-100)
[2025-01-06 08:40] VITALS: O2SAT 96
[2025-01-06] MEDS: LINACLOTIDE 290 MCG 1 EACH PO (09:06)
[2025-01-06] MEDS: PAT OWN MED ***ATORVASTATIN 40MG 40 MG PO (09:06)
[2025-01-06] MEDS: ISOSORBIDE MONO 30 MG PO (09:06)
[2025-01-06] MEDS: ASPIRIN EC 81MG TABLET 81 MG PO (09:06)
[2025-01-06] MEDS: PAT OWN MED ***LAMOTRIGINE 150 MG 1 EACH PO (09:06)
[2025-01-06] MEDS: PAT OWN MED ***PANTOPRAZOLE 40MG 40 MG PO (09:06)
[2025-01-06] MEDS: PAT OWN MED ***EZETIMIBE 10MG 10 MG PO (09:06)
[2025-01-06 09:58] LABS: Eosinophils % 1 % (0-3); Lymphocytes % 30 % (10-50); Monocytes % 3 % (2-9); Neutrophils % 66 % (42-76); Platelet Estimate Normal; RBC Morphology Normal; Total Cells Counted 100
--- NOTE | 2025-01-06 10:19 | P.PN_ITS ---
Subjective *Date: 01/06/25 *Time: 10:19 Interval history: Patient feels better, anxious to go home. Medical Exam Vital signs and Labs for Last 24 Hours: Vital Signs Temp Pulse Resp BP Pulse Ox O2 Del Method 01/06/25 07:45 98.5 F 105 H 16 108/69 L 96 Room Air 01/06/25 07:00 Room Air 01/06/25 05:00 Room Air 01/06/25 04:00 98.4 F 90 15 132/76 90 L Room Air 01/06/25 03:00 Room Air 01/06/25 01:00 Room Air 01/05/25 22:59 Room Air 01/05/25 21:00 Room Air 01/05/25 19:53 98.4 F 94 H 16 135/78 95 Room Air 01/05/25 19:00 Room Air 01/05/25 17:00 Room Air 01/05/25 16:00 98.2 F 83 18 122/76 97 Room Air 01/05/25 15:00 Room Air 01/05/25 13:00 Room Air 01/05/25 11:00 Room Air Intake and Output 01/05/25 01/06/25 01/06/25 23:59 07:59 15:59 Intake Total 100 / 1350 240 / 240 Output Total 550 / 800 500 / 1300 800 / 1300 Balance -450 / 550 -500 / -1060 -560 / -1060 Intake: Intake, Oral Amount 100 / 400 240 / 240 Output: Output, Urine Amount 550 / 800 500 / 1300 800 / 1300 Other: Number of Unmeasured Voids 0 Number of Bowel Movements 1 Weight 147 lb 8 oz Patient Weight 01/06/25 23:59 Weight 147 lb 8 oz Laboratory Results - last 24 hr 01/06/25 06:35: WBC 7.9, RBC 4.29, Hgb 12.6, Hct 38.2, MCV 89.0, MCH 29.4, MCHC 33.0, RDW 14.7, Plt Count 323, MPV 8.7, Neut % (Auto) 56.2, Lymph % (Auto) 22.2, [place] % (Auto) 8.6, Eos % (Auto) 4.3, Baso % (Auto) 1.4, Neut # (Auto) 4.5, Lymph # (Auto) 1.8, [place] # (Auto) 0.7, Eos # (Auto) 0.3, Baso # (Auto) 0.1, Total Counted 100, Neutrophils % (Manual) 66, Lymphocytes % (Manual) 30, Monocytes % (Manual) 3, Eosinophils % (Manual) 1, Platelet Estimate Normal, RBC Morphology Normal, Sodium 143, Potassium 3.9, Chloride 106, Carbon Dioxide 28, Anion Gap 12.9, BUN 18 H, Creatinine 0.70, Estimated Creat Clear 58, Estimated GFR 83, Est GFR ( Amer) 101, Glucose 88, Calcium 8.4 I & O for Labs for Last 24 Hours: Intake & Output 01/03/25 01/04/25 01/05/25 01/06/25 23:59 23:59 23:59 23:59 Intake Total 120 / 1070 1350 / 1350 240 / 240 Output Total 0 / 0 800 / 800 1300 / 1300 Balance 120 / 1070 550 / 550 -1060 / -1060 Weight 142 lb 147 lb 8 oz 147 lb 8 oz Microbiology Reports for the Last 24 Hours: Microbiology 01/04/25 18:02 Blood Blood Culture - Preliminary NO GROWTH AFTER 24 HOURS 01/04/25 18:02 Blood Blood Culture - Preliminary NO GROWTH AFTER 24 HOURS Constitutional: Present no acute distress Respiratory: Present CTA bilaterally Cardiac: Present Reg Rate and Rhythm GI: Present soft; Absent distention or tenderness Extremities: Absent edema Skin: Present intact Assessment and Plan *Assessment and plan (1) Pyelonephritis: Status: Acute Category: Medical Code(s): N12 - Tubulo-interstitial nephritis, not specified as acute or chronic (2) Dehydration: Status: Acute Category: Medical Code(s): E86.0 - Dehydration (3) Hypokalemia: Status: Acute Category: Medical Code(s): E87.6 - Hypokalemia (4) Adjustment disorder with anxious mood: Problem Comment: Moderate anxiety when pain is present. Status: Acute Category: Medical Code(s): F43.22 - Adjustment disorder with anxiety (5) COPD mixed type: Problem Comment: Former smoker Status: Chronic Category: Medical Code(s): J44.9 - Chronic obstructive pulmonary disease, unspecified (6) History of gastric bypass: Problem Comment: 09/21/2024: BMI 24.7. Status: Chronic Category: Surgical Code(s): Z98.84 - Bariatric surgery status (7) Tobacco use: Status: Chronic Category: Social Hx Code(s): Z72.0 - Tobacco use (8) GERD (gastroesophageal reflux disease): Status: Chronic Qualifiers: Esophagitis presence: without esophagitis Qualified Code(s): K21.9 - Gastro-esophageal reflux disease without esophagitis Category: Medical Code(s): K21.9 - Gastro-esophageal reflux disease without esophagitis (9) CAD (coronary artery disease): Status: Chronic Qualifiers: Coronary Disease-Associated Artery/Lesion type: [place] artery [place] vs. transplanted heart: [place] heart Associated angina: without angina Qualified Code(s): I25.10 - Atherosclerotic heart disease of [place] coronary artery without angina pectoris Category: Medical Code(s): I25.10 - Atherosclerotic heart disease of [place] coronary artery without angina pectoris (10) Elevated liver enzymes: Status: Acute Category: Medical Code(s): R74.8 - Abnormal levels of other serum enzymes Plan Urine culture is still pending. OK to discharge with plans for 3 more days of IM Invanz and office f/u in about 10 days.
[2025-01-06] MEDS: ERTAPENEM SODIUM 1 GM VIAL IM (13:10)
--- NOTE | 2025-01-08 08:00 | EXP.DC.SUM ---
General Admission date:: 01/04/25 Discharge date: 01/06/25 HPI HPI HPI: Ms. Doran is a 69yo female who was seen inititally in the office of [facility] on 12/29/24 with complaints of weakness, chills, and nausea. She was evaluated and her WBC was elevated. She could not provide a urine specimen. She was started on cefdinir and had f/u scheduled. On 01/02/25, she returned with left flank pain and generally feeling worse after 4 days of empiric antibiotics. Her appetite had been diminished. She was starting to have urinary hesitancy and was sweating. A CT was ordered that showed a pyelonephritis. She was switched to levaquin. She returned to the office today still feeling poorly and dehydrated and she will be admitted. Hospital Course Hospital Course Hospital Course: On admission patient was started on Invanz and IV fluids. Suprapubic pain gradually improved. She initially was not able to eat but was drinking fluids. By 01/06/2025 patient was feeling much better and anxious to go home. Potassium had normalized and renal function was stable. She was discharged home with plan for Invanz daily x 3 more days. She was to follow-up in the office of [facility] in 10 days. Exam Data for Last 24 hours Vital signs and Labs for Last 24 Hours: Temp Pulse Resp BP Pulse Ox O2 Del Method 98.5 F 105 H 16 108/69 L 96 Room Air 01/06/25 07:45 01/06/25 07:45 01/06/25 07:45 01/06/25 07:45 01/06/25 08:40 01/06/25 13:00 I & O for Last 24 hours: Intake & Output 01/05/25 01/06/25 01/07/25 01/08/25 11:59 11:59 11:59 11:59 Intake Total 1270 / 1270 440 / 440 Output Total 0 / 0 2100 / 2100 200 / 200 Balance 1270 / 1270 -1660 / -1660 -200 / -200 Weight 147 lb 8 oz 147 lb 8 oz Narrative: [facility] PE Constitutional: Present no acute distress Respiratory: Present CTA bilaterally Cardiac: Present Reg Rate and Rhythm GI: Present soft; Absent distention or tenderness Extremities: Absent edema Skin: Present intact Results Data Completed and Pending Completed studies during hospitalization [Text1]: 01/06/25 06:35: WBC 7.9, RBC 4.29, Hgb 12.6, Hct 38.2, MCV 89.0, MCH 29.4, MCHC 33.0, RDW 14.7, Plt Count 323, MPV 8.7, Neut % (Auto) 56.2, Lymph % (Auto) 22.2, [place] % (Auto) 8.6, Eos % (Auto) 4.3, Baso % (Auto) 1.4, Neut # (Auto) 4.5, Lymph # (Auto) 1.8, [place] # (Auto) 0.7, Eos # (Auto) 0.3, Baso # (Auto) 0.1, Total Counted 100, Neutrophils % (Manual) 66, Lymphocytes % (Manual) 30, Monocytes % (Manual) 3, Eosinophils % (Manual) 1, Platelet Estimate Normal, RBC Morphology Normal, Sodium 143, Potassium 3.9, Chloride 106, Carbon Dioxide 28, Anion Gap 12.9, BUN 18 H, Creatinine 0.70, Estimated Creat Clear 58, Estimated GFR 83, Est GFR ( Amer) 101, Glucose 88, Calcium 8.4 01/02/2025 CT abd/pelvis FINDINGS: Abdomen: A trace left pleural effusion is present. Liver, spleen, pancreas and adrenal glands have a normal CT appearance in their limited unenhanced state. There is evidence of a prior gastric bypass. The gallbladder is normal in appearance. The kidneys show no stone disease or obstruction. There is a right renal mass in the lower pole of the right kidney measuring 25 mm in size, which is not well-characterized secondary to lack of intravenous contrast. Ureteral stones are present. There is mild perinephric stranding present, which is nonspecific but a UTI is not excluded. Pelvis: No distal ureteral stones are seen. Bladder is decompressed. No fluid collection or adenopathy is seen. The uterus is normal for age. Moderate to diffuse fecal impaction is identified. IMPRESSION: 1. No evidence of upper urinary tract stone disease or obstruction 2. Mild perinephric stranding, nonspecific however UTI is not excluded. 3. Lower pole right renal mass, 25 mm, not well-characterized without intravenous contrast. CXR 12/30/2024 FINDINGS: Lungs: There are minimal airspace opacities in the left lung base. Pleural spaces: There is no pneumothorax or pleural effusion. Heart/Mediastinum: There is no cardiomegaly. Bones/joints: Osseous structures demonstrate no acute abnormalities. IMPRESSION: Minimal airspace opacities in the left lung base, likely related atelectasis. Labs on day of discharge: Preliminary micro results at discharge 01/04/25 18:02 Blood Culture - Preliminary Blood NO GROWTH AFTER 48 HOURS 01/04/25 18:02 Blood Culture - Preliminary Blood NO GROWTH AFTER 48 HOURS DS: Diagnosis Discharge Diagnosis (1) Pyelonephritis: Status: Acute Code(s): N12 - Tubulo-interstitial nephritis, not specified as acute or chronic (2) Dehydration: Status: Acute Code(s): E86.0 - Dehydration (3) Hypokalemia: Status: Acute Code(s): E87.6 - Hypokalemia (4) Adjustment disorder with anxious mood: Status: Acute Code(s): F43.22 - Adjustment disorder with anxiety Problem details: Moderate anxiety when pain is present. (5) COPD mixed type: Status: Chronic Code(s): J44.9 - Chronic obstructive pulmonary disease, unspecified Problem details: Former smoker (6) History of gastric bypass: Status: Chronic Code(s): Z98.84 - Bariatric surgery status Problem details: 09/21/2024: BMI 24.7. (7) Tobacco use: Status: Chronic Code(s): Z72.0 - Tobacco use (8) GERD (gastroesophageal reflux disease): Status: Chronic Code(s): K21.9 - Gastro-esophageal reflux disease without esophagitis Qualifiers: Esophagitis presence: without esophagitis Qualified Code(s): K21.9 - Gastro-esophageal reflux disease without esophagitis (9) CAD (coronary artery disease): Status: Chronic Code(s): I25.10 - Atherosclerotic heart disease of [place] coronary artery without angina pectoris Qualifiers: Coronary Disease-Associated Artery/Lesion type: [place] artery [place] vs. transplanted heart: [place] heart Associated angina: without angina Qualified Code(s): I25.10 - Atherosclerotic heart disease of [place] coronary artery without angina pectoris (10) Elevated liver enzymes: Status: Acute Code(s): R74.8 - Abnormal levels of other serum enzymes Meds Home Medications and Allergies Home Medications ?Medication ?Instructions ?Recorded ?Confirmed ?Type multivitamin 1 tab PO DAILY 11/22/17 01/05/25 History lamotrigine 150 mg tablet 150 mg PO BID 04/29/20 01/04/25 History oxybutynin chloride 10 mg 10 mg PO DAILY bladder 10/02/20 01/04/25 History tablet,extended release 24 hr venlafaxine 225 mg tablet,extended 225 mg PO DAILY 02/02/23 01/04/25 History release 24 hr calcium citrate 200 mg PO BID 03/26/23 01/04/25 History cholecalciferol (vitamin D3) 1,250 1,250 mcg PO DAILY 03/26/23 01/04/25 History mcg (50,000 unit) capsule pantoprazole 40 mg tablet,delayed 40 mg PO BID 09/02/23 01/05/25 History release trazodone 100 mg tablet 200 mg PO HS 09/02/23 01/04/25 History donepezil 10 mg tablet (Aricept) 10 mg PO HS 09/13/23 01/05/25 History atorvastatin 40 mg tablet 40 mg PO DAILY 11/17/23 01/04/25 History hydroxyzine HCl 10 mg tablet 10 mg PO DAILY 02/15/24 01/04/25 History hydroxyzine HCl 10 mg tablet 20 mg PO HS 05/26/24 01/04/25 History linaclotide 290 mcg capsule 290 mcg PO DAILY 05/26/24 01/04/25 History (Linzess) clobetasol 0.05 % topical ointment 1 applic topical BID 2 weeks #45 08/29/24 01/05/25 Rx grams montelukast 10 mg tablet 10 mg PO HS 11/02/24 01/05/25 History aspirin 81 mg tablet,delayed 81 mg PO DAILY 01/05/25 01/04/25 History release bisoprolol fumarate 5 mg tablet 5 mg PO DAILY 01/05/25 01/05/25 History denosumab 60 mg/mL subcutaneous 60 mg SQ [id number] 01/05/25 01/05/25 History syringe ezetimibe 10 mg tablet (Zetia) 10 mg PO DAILY 01/05/25 01/04/25 History fluticasone fur. 200 mcg-umeclid 1 ea inhalation DAILY 01/05/25 01/05/25 History 62.5 mcg-vilant 25 mcg inhalat.powder (Trelegy Ellipta) isosorbide mononitrate 30 mg 30 mg PO DAILY 01/05/25 01/05/25 History tablet,extended release 24 hr quetiapine 200 mg tablet 200 mg PO HS 01/05/25 01/05/25 History sumatriptan succinate 50 mg tablet 50 mg PO NEEDED PRN Migraine 01/06/25 Rx Headache #30 tabs valacyclovir 1 gram tablet 2,000 mg (2 x 1 gram) PO Q12H #4 01/06/25 Rx tabs New Prescriptions to Start Prescriptions: sumatriptan succinate [place],Sang valacyclovir [place],Sang Allergies Allergy/AdvReac Type Severity Reaction Status Date / Time Penicillins Allergy Severe S-ANAPHYLAX Verified 12/19/24 10:38 IS milnacipran (From [facility]A) Allergy Unknown Unknown Verified 12/19/24 10:38 allergy reaction Discharge Plan Disposition Patient Disposition: Home, Self-Care Condition: Fair Follow up Plan Follow up with: Saul Benitez MD [Primary Care Provider, Medical] - 01/16/25 Referral Note: Please call office for follow up appointment Prescriptions/Medication Reconciliation: New valacyclovir 1 gram tablet 2,000 mg PO Q12H Qty: 4 0RF Continued trazodone 100 mg tablet 200 mg PO HS donepezil [Aricept] 10 mg tablet 10 mg PO HS montelukast 10 mg tablet 10 mg PO HS multivitamin tablet 1 tab PO DAILY lamotrigine 150 mg tablet 150 mg PO BID hydroxyzine HCl 10 mg tablet 10 mg PO DAILY Patient Comments: . cholecalciferol (vitamin D3) 1,250 mcg (50,000 unit) capsule 1,250 mcg PO DAILY calcium citrate 200 mg (950 mg) tablet 200 mg PO BID venlafaxine 225 mg tablet extended release 24hr 225 mg PO DAILY Patient Comments: TAKE 1 TABLET BY MOUTH ONCE DAILY pantoprazole 40 mg tablet,delayed release (DR/EC) 40 mg PO BID Patient Comments: TAKE 1 TABLET BY MOUTH TWICE DAILY 30 MINUTES BEFORE MORNING AND EVENING MEAL atorvastatin 40 mg tablet 40 mg PO DAILY clobetasol 0.05 % ointment 1 applic topical BID 14 Days Qty: 45 2RF quetiapine 200 mg tablet 200 mg PO HS Trelegy Ellipta 200-62.5-25 mcg blister with device 1 ea INHALATION DAILY isosorbide mononitrate 30 mg tablet extended release 24 hr 30 mg PO DAILY bisoprolol fumarate 5 mg tablet 5 mg PO DAILY ezetimibe [Zetia] 10 mg tablet 10 mg PO DAILY denosumab 60 mg/mL syringe 60 mg SQ [id number] aspirin 81 mg tablet,delayed release (DR/EC) 81 mg PO DAILY sumatriptan succinate 50 mg tablet 50 mg PO NEEDED PRN (Reason: Migraine Headache) Qty: 30 0RF oxybutynin chloride 10 MG tablet extended release 24hr 10 mg PO DAILY hydroxyzine HCl 10 mg Tablet 20 mg PO HS Linzess 290 mcg Capsule 290 mcg PO DAILY Discontinued levofloxacin 750 mg tablet 750 mg PO DAILY Patient Comments: TAKE 1 TABLET BY MOUTH ONCE DAILY Problem Reconciliation Problems Reviewed?: Yes Patient Discharge Instructions ACTIVITY: Continue current activity DIET: continue same diet Patient Instructions: DI for Kidney Infection, Stop Light COPD, Stop Light Infection Print Language: Samoan Providers Primary Care Provider: Saul Benitez Admit Provider: Sang Regan Attending Provider: Sang Regan
--- NOTE | 2025-01-08 13:32 | SW/DCPLANNER ---
Spoke with patient on the phone. Patient stated that she is doing good. Patient stated that she is aware of her upcoming appointments. Patient stated that she was able to get her new medicine picked up. Patient stated that she has no concerns or questions at this time. Berry Torres
== END 2025-01-06 13:15 | disposition home or self-care (01) ==
PROVIDERS: Admitting Provider Family Medicine; PCP Family Medicine; Visit Provider Family Medicine
DX: N12 Tubulo-interstitial nephritis, not specified as acute or chronic (principal); F43.22 Adjustment disorder with anxiety; J44.89 Other specified chronic obstructive pulmonary disease; E86.0 Dehydration; K21.9 Gastro-esophageal reflux disease without esophagitis; E87.6 Hypokalemia; R74.8 Abnormal levels of other serum enzymes; E78.5 Hyperlipidemia, unspecified; J96.11 Chronic respiratory failure with hypoxia; I11.9 Hypertensive heart disease without heart failure; I25.119 Atherosclerotic heart disease of native coronary artery with unspecified angina pectoris; Z88.0 Allergy status to penicillin; Z88.8 Allergy status to other drugs, medicaments and biological substances; Z98.84 Bariatric surgery status; Z87.891 Personal history of nicotine dependence; Z79.899 Other long term (current) drug therapy; Z79.82 Long term (current) use of aspirin
CPT/HCPCS: 96365; 96372; 96376; 36415; 80048; 80053; 83605; 85007; 85025; 85027; 87040; 97162; 97166; G0378; J1335; J7120

== ENCOUNTER 2025-01-07 13:21 | Outpatient (CLI) | payer MEDICARE, SELFPAY ==
--- OUTSIDE RECORDS SUMMARY | 2024-12-30 05:30 | XMS_ITS ---
Author Organization [facility] Address [address] [facility] [address] [place] [id number] Care Team Providers Care Equipment Cleaner Name Role Phone Jeyson Benitez Primary Care Provider China Sánchez Unavailable [phone] Results Component Value Reference Range Notes Urinalysis [...] Active Encounters Encounter Location Date Provider Diagnosis [facility] [address] [facility] [address] [place], [place] [id number] 12/30/2024 China Sánchez Dysuria R30.0 Assessments Encounter Date Diagnosis (ICD Code) Assessment Notes Treatment Notes Treatment Clinical Notes Section Notes 12/30/2024 Dysuria (ICD-10 - R30.0) Plan Of Treatment No Information Progress Notes * BURT DORANOB:[birth year] (69 yo F)Acc No.[id number]:12/30/2024 Patient: WENDY ESCAMILLA Provider: RANI Dumont :1955 A ge:69 Y S ex:Female Date:12/30/2024 Address:[address] [facility] [address] [id number] Pcp:Jeyson Benitez Subjective: * Chief Complaints: * [...] day , Taking Vitamin D3 50 MCG (1999 UT) Tablet 1 tablet Orally Once a [...] EDT > 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 Recollected today. * Procedure Codes: 8 1002 Urinalysis, no micro * Images: Billing Information: * Visit Code: * Procedure Codes: 71552 Urinalysis, no micro. * Electronic signature of RANI Umanzor on 01/07/2025 at 01:26 PM EDT Sign off status: Pending * Provider: RANI Dumont Date: 0 12/30/2024 Generated for Elkin castillo/Aram/Clem on: 01/07/2025 01:26 PM EDT
--- OUTSIDE RECORDS SUMMARY | 2025-01-02 05:30 | XMS_ITS ---
[facility] Organization [facility] [address] [facility] [address] [place] [id number] Care Team Providers Care Industrial Engineering Technician Name Role Phone Jeyson Benitez Primary Care [...] Interpretation: Performing Lab: Notes/Report: Test performed by [facility] [address] [place] [address] , [address], [place] [address] Tim Parrish MD, Pastry Finisher CLIA: [id number] Specimen Source Urine - Void Culture, Urine See Below See Microbiol ogy Report Escherichia coli ESBL 50,000-100,000 CFU /ml Escherichia coli ESBL This isolate is a confirmed ESBL (Extended Spectrum Beta-Lactamase) pressroom worker and should be considered clinically resistant to [...] Provider Diagnosis [facility] [address] [place] [address] [place] Khan [phone] 01/02/2025 Jeyson Benitez Flank pain, acute R10.10 ; Hematuria R31.9 [...] Appt Details Follow Up: 2 days, Reason: Progress Notes * BURT DORANOB:[birth year] (69 yo F)Acc No.[id number]:01/02/2025 Annual Wellness Visit Patient: WENDY ESCAMILLA Provider: Jeyson Benitez M.D. :1955 A ge:69 Y S ex:Female Date:01/02/2025 Address:[address] [place] [address] , [place], [id number] Subjective: * Chief Complaints: * 1 . [...] culture was dropped off Wednesday however, the senior audit manager canceled and did not picker and packer any labs. . G astroenterology: Pt is scheduled for a liver biopsy on 01/09/25 at [facility]. Ordered by Jonas Ball. 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 Cath showed on [...] Ball 11/2020. * Hospitalization/Major Diagno stic Procedure: [facility] ER-diarrhea 03/2011, [place] ER-back pain 06/2012, [place]-heart attack 12/31/2014, [place] ER-constipation/impaction 09/2015, [place] ER-diarrhea 11/2015, [place] ER-Bronchitis 03/2018, [facility] office in [place]-possible UTI, tested negative 12/2019. * Family History: F ather: . M other: alive. 2 brother(s) , 1 sister(s) . 1 son(s) , 1 daughter(s) . . * Social History: C URRENT TOBACCO USE S moking Status: P atient does NOT smoke quit after [place] 12/2014.?Caffeine: yes, frequency:. Home smoke detector use: [...] required through MCR or AARP; CPT code 03427; 01/02/2025 at 11am Notes: See the following [...] required through MCR or AARP; CPT code 92395; 01/02/2025 at 11am 3.?Adult general medical examination? [...] REV, G9899 [place], [address] Urinalysis, no micro * Preventive Medicine: Counseling: [...] * Images: Billing Information: * Visit Code: 91142 Office Visit, Est Pt., Level 3. * [...] REV. G9899 [place]. [address] Urinalysis, no micro. * Electronic signature of Jeyson Benitez MD on 01/07/2025 at 01:25 PM EDT Sign off status: Pending * Provider: Jeyson Benitez M.D. Date: 0 01/02/2025 Generated for Elkin castillo/Aram/Linseyitting on: 0 01/07/2025 01:25 PM EDT History and Physical Notes * HPI (History of Present Illness) Category Sub-Category Detail Notes Category Not es Urology flank pain Pt c/o left side d flank pain. Pt was unable to provide good sample on 12/29 so a urine culture was dropped off Wednesday however, the senior audit manager canceled and did not picker and packer any labs. Physical Examination Category Sub-Category Detail [...]
--- OUTSIDE RECORDS SUMMARY | 2025-01-04 09:45 | XMS_ITS ---
Author Organization [facility] Address [address] [facility] [address] [place] [id number] Care Team Providers Care Architect Intern Name Role Phone Jeyson Benitez Primary Care Provider [phone] Allergies Allergen (clinical drug ingredient) Drug/Non Drug [...] lamoTRIgine 150 MG TAKE 1 TABLET BY [facility] TWICE DAILY; Duration: 90 Active Calcium Citrate 150 MG 2 capsules Orally Once a day; Duration: 90 days Active hydrOXYzine HCl 10 MG as directed Orally Two times a day; Duration: 90 days Active Estrace 0.1 MG/GM 1 gm Vaginal 3 times per week 07/13/2024 Active traZODone HCl 100 MG TAKE 1 TABLET BY [facility] ONCE DAILY AT BEDTIME; [...] 01/04/2025 Encounters Encounter Location Date Provider Diagnosis [facility] [address] [facility] [address], [place] [id number] 01/04/2025 R Foreign Benitez Pyelonephritis N12 Assessments Encounter Date Diagnosis (ICD Code) Assessment Notes Treatment Notes Treatment Clinical Notes Section Notes 01/04/2025 Pyelonephritis (ICD-10 - N12) She has failed to oral antibiotics. Plan for direct admission to [facility] for IV fluids and IV antibiotics. Plan Of Treatment Treatment Notes Assessment Notes Pyelonephritis She has failed to or al antibiotics. Plan for direct admission to [facility] for IV fluids and IV antibiotics. Next Appt Details Follow Up: After discharge, Reason: Progress Notes * BURT DORANOB:[birth year] (69 yo F)Acc No.[id number]:01/04/2025 Progress Notes Patient: WENDY ESCAMILLA Provider: Jeyson Benitez M.D. :1955 A ge:69 Y S ex:Female Date:01/04/2025 Address:[address] [place] [address] , [id number] Subjective: * Chief Complaints: * 1 . 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 Cath showed on [...] Ball 11/2020. * Hospitalization/Major Diagno stic Procedure: [facility] ER-diarrhea 03/2011, [facility] ER-back pain 06/2012, [facility]-heart attack 12/31/2014, [place] ER-constipation/impaction 09/2015, [place] ER-diarrhea 11/2015, [place] ER-Bronchitis 03/2018, Drs office in [place]-possible UTI, tested negative 12/2019. * Family History: F ather: . M other: alive. 2 brother(s) , 1 sister(s) . 1 son(s) , 1 daughter(s) . . * Social History: C URRENT TOBACCO USE S moking Status: P atient does NOT smoke quit after [place] 12/2014.?Caffeine: yes, frequency:. Home smoke detector use: [...] oral antibiotics. Plan for direct admission to [facility] for IV fluids and IV antibiotics.?? * Procedure Codes: 8 1002 Urinalysis, no micro * Follow Up: A fter discharge * Images: Billing Information: * Visit Code: 55346 Office Visit, Est Pt., Level 3. * Procedure Codes: 43796 Urinalysis, no micro. * Electronic signature of Jeyson Benitez MD on 01/07/2025 at 01:26 PM EDT Sign off status: Pending * Provider: Jeyson Benitez M.D. Date: 01/04/2025 Generated for Adai anna/Aram/eTransmitting on: 01/07/2025 01:26 PM EDT History and Physical Notes * Physical Examination [...]
--- OUTSIDE RECORDS SUMMARY | 2025-01-07 13:26 | XMS_ITS | Continuity of Care Document ---
Author Organization [place] - [facility] - [place] [facility] [place], [facility] Address [address] [facility] [address] [place] [address] Care Team Providers Care Sash Maker Name Role Phone GENET BRUCE Primary Care [...] recommended 04/2029 for screening. f/u 1 month Not available 12/27/2024 14:41:04 Plan of Treatment Reminders Order Date Submit Date Provider Last Modified By Organization Details Last Modified Time Details Appointments Establish ed Visit 15 min 2024 01:45P M Ernesto Amezcua PA-C Not available Not available Not available OV EST 20 2024 10:00A M Aden Husain, DNP, SUPERVISOR W[employer] SOFT[employer]ICE, X RAY SERVICE ENGINEER-C Not available Not available Not available Lab None recorded. Referral None recorded. Procedures biopsy, liver (PROC) - CT or US guidance, depending on radiologi st's preferenc e 2024 025 [facility] [address], [address] [place], [address], 12/27/2024 14:50:48 Surgeries None recorded. Imaging None recorded. Medication Orders None recorded. Patient TargetsNo targets recorded. Patient InstructionsNo instructions recorded. Reason for Referral None Reported. Problems Name Problem SNOMED Code Status Onset Date Resolution Date Notes Provider Name and Address Organization Details Recorded Time Metabolic dysfuncti on-associ ated steatohep atitis 917571741 Active 2023 Ernesto Amezcua PA-C [address] [facility], [place], [address] , [facility] - [facility] & [place] 5 14:30:35 Gastroeso phageal reflux disease without esophagit is 408837248 Active 2023 Ernesto Amezcua PA-C [address] [facility], [place], [address] , [place] - [facility] & [place] 4 13:48:57 Chronic idiopathi c constipat ion 25109507 Active 2021 Not Available [facility] 3 16:06:44 Gastroeso phageal reflux disease 327943805 Active 2021 Not Available [facility] 3 16:06:44 Diarrhea 05150299 Active 2021 Not Available [facility] 3 16:06:44 Hypokalem ia 94475473 Active 2021 Not Available [facility] 3 16:06:44 Abdominal pain 32795618 Active 2021 Not Available [facility] 3 16:06:44 Myocardia l infarctio n 81432763 Completed 202103/25/2022 Azeb Quesada null, [place] - [facility] - [place] [facility] [place] 2 14:37:03 Fibromyal dominique 680084193 Active 2021 Not Available [facility] 3 16:06:44 Mild dementia 23729543519 4108 Active 2021 Not Available [facility] 3 16:06:44 Chronic obstructi ve pulmonary disease 68014082 Active 2021 Not Available [facility] 3 16:06:44 Hiatal hernia 71320107 Completed 202103/25/2022 Azeb Quesada null, [place] - [facility] - [place] [facility] [place] 2 14:38:57 Chronic depressio n 082843499 Active 2021 Not Available [facility] 3 16:06:44 Obesity 594843074 Active 2021 Ernesto Amezcua PA-C [address] [facility], [place], [address] , [place] - [facility] - [place] [facility] [place] 2 14:51:36 Hypertens silvino disorder 80532050 Active 2022 Not Available [facility] 3 16:06:44 Dyslipide franc 339301237 Active 2022 Not Available [facility] 3 16:06:44 Morbid obesity 920007004 Active 2022 Not Available [facility] 3 16:06:44 Dizziness 023934487 Active 2022 Not Available [facility] 3 16:06:44 Intention al weight loss 339309418 Active 2022 Not Available [facility] 3 16:06:44 Constipat ion 68956888 Active 2022 Ernesto Amezcua PA-C [address], [place], [place], [address] [place] [address] , [place] - [facility] - [place] [facility] [place] 3 15:41:42 Overweigh t 286462428 Active 2023 Aden Husain DNP, SUPERVISOR W[employer] SO[employer]ENER SERVICE, X RAY SERVICE ENGINEER-C [address], [place], [place], [address] [place] [address] , [place] - [facility] - [place] [facility] [place] 4 09:57:50 Fatigue 07595072 Active 2023 Aden Husain DNP, SUPERVISOR WATER SOFTENER SERVICE, X RAY SERVICE ENGINEER-C [address], [place], [address] [place] [address] , [place] [facility] - [place] 4 10:00:39 Liver enzymes level above reference range 934066637 Active 2023 Aden Husain DNP, SUPERVISOR WATER SO[employer]ENER SERVICE, X RAY SERVICE ENGINEER-C [address], [place], [address] [place] [address] , [place] [facility] - [place] 4 13:32:45 Low back pain 597027069 Active 2023 Aden Husain DNP, SUPERVISOR W[employer] SO[employer]ENER SERVICE, X RAY SERVICE ENGINEER-C [address], [place], [address] [place] [address] , [place] [facility] - [place] 4 15:56:35 Irritable bowel syndrome character ized by constipat ion 053918764 Active 2023 Ernesto Amezcua PA-C [address], [place], [address] [place] [address] , [place] - [facility] - [place] 4 09:08:46 Problem Notes None recorded. Procedures Surgical History Date Name Laterality Status Provider Name and Address Organization Details Recorded Time 07/23/[address], LD [address], [place], [address], [place] - [facility] - [place] 08/14/2022 16:17:22 05/28/20 21 Date of Last Pap Smear completed RIMMA JOSEROSA RAY RD, LD [address] [facility], [place], [address], [facility] & [place] 08/14/2022 16:17:22 12/20/19 21 Date of Last Colonoscopy completed RIMMA JOSEROSA RAY RD, LD [address], [place], [address], [facility] & [place] 08/14/2022 16:17:22 11/17/19 20 Most Recent Bone Density completed RIMMA JOSEROSA RAY RD, LD [address] [facility], [place], [address], [facility] & [place] 08/14/2022 16:17:22 Appendectomy completed Not Available [facility] 13:08:39 extraction of wisdom tooth completed Not Available [facility] 08/10/2022 13:08:39 lithotripsy completed Not Available [facility] 07/14 13:08:39 Colonoscopy completed Marychuy Quesada [facility] & [place] 08/13/2022 11:21:25 EGD completed Marychuy Quesada [facility] & [place] 08/13/2022 11:21:36 Gastric Bypass completed Dipesh Dow [facility] & [place] 12/29/2022 08:20:27 Imaging Results None recorded. Procedure Notes None recorded. Medical Equipment None Reported. Allergies Allergen ID Allergen Name Allergen Category Reaction Reaction Severity Criticality Documentation Date Start Date Code Code System Note Provider Name and Address Organization Details Recorded Time 16376 Product containin g penicilli n (product) medicatio n Not available Not available Not available 03/25/2022 24252 8001 SNOMED [facility] & [place] 14:01:10 619778 indometha gen medicatio n Not available Not available Not available 06/19/2024 5781 RxNorm Other react ions and sever ities : 'Adve rse react ion to subst ance' . Kary aguillon, [place] - [facility] & [place] 4 14:05:45 508895 penicilli n V Not available Not available Not available Not available 06/19/2024 7984 RxNorm Other react ions and sever ities : 'Anap hylax is due to subst ance' . Kary Rust null, [place] - [facility] & [place] 4 14:05:45 001516 milnacipr an medicatio n Not available Not available Not available 06/19/2024 65404 0 RxNorm Other react ions and sever ities : 'Adve rse react ion to subst ance' . Kary Rust null, [place] - [facility] & [place] 4 14:05:45 81703 Savella medicatio n Not available Not available Not available 08/13/2022 42107 6 RxNorm Marychuy Quesada null, [facility] & [place] 3 11:18:57 Medications Name Sig Start Date [...] day by oral route for 90 days. 12/08 completed Not Available Not Available Not Available Paxlovid 300 mg (150 mg x [...] Updated DateTime 12/27/2024 162.56 cm 24.7 kg/m2 72191.58 g 98.4 [degF] 97 /min Ernestine Laguerre [facility] & [place] 14:16:54 Social History Question Answer Notes LastModified by Organizat ion Details LastModified Time Tobacco Smoking Status Former Smoker quit 3 years ago Araceli aguillon, [facility] & [place] 09/06/2023 09:49:34 Do You Have An Advance Directive? No [email or web address] Information not available 08/14/2022 Are You Blind Or Do You Have Difficulty Seeing? No [email or web address] Information not available 08/14/2022 What Was The Date Of Your Most Recent Tobacco Screening? 08/10/2022 [email or web address] Information not available 08/14/2022 Are You Passively Exposed To Smoke? No [email or web address] Information not available 08/14/2022 How Much Tobacco Do You Smoke? No Information not available 08/14/2022 Sex: Male Functional Status Question Answer Note LastModified by [employer] Details LastModified Time Do you use any illicit or recreational drugs? No [email or web address] Information not available 08/10/2022 What is your level of alcohol consumption? None [email or web address] Information not available 08/10/2022 Do you or have you ever used smokeless tobacco? Never used smokeless tobacco [email or web address] Information not available 08/14/2022 What is your exercise level? None [email or web address] Information not available 08/14/2022 Mental Status Question Answer Note LastModified by Organization D etails LastModified Time Do you feel stressed (tense, restless, nervous, or anxious, or unable to sleep at night)? [id number] [email or web address] Information not available 08/14/2022 Family History Relationship Description Onset Age of this Age Resolved Age Notes LastModified by Organization Details LastModified Time Father Obesity Not availa ble 08/10/2022 08:30:50 Father Diabetes mellitus [email or web address] Not available 2024 14:11:10 Father Hypertensive disorder [email or web address] Not available 08:31:23 Father Heart disease [email or web address] Not available 08:31:48 Father Cerebrovascu lar accident [email or web address] Not available 08/10/2022 08:32:04 Father Hypercholest erolemia Not available 08:32:27 Father Asthma [email or web address] Not available 12/27/2024 14:11:10 Father Allergy pt. added direct ly (08/10) [email or web address] Not available 08/10/2022 13:04:20 Father Disorder of endocrine system pt. added direct ly (08/10) [email or web address] Not available 08/10/2022 13:07:54 Maternal Grandmother Obesity [email or web address] Not available 0 08/10/2022 08:30:50 Maternal Grandmother Hypertensive disorder [email or web address] Not available 08:31:23 Maternal Grandmother Heart disease [email or web address] Not available 08:31:49 Mother Hypertensive disorder [email or web address] Not available 08:31:23 Mother Heart disease [email or web address] Not available 08:31:48 Mother Cerebrovascu lar accident [email or web address] Not available 08/10/2022 08:32:04 Mother Hypercholest erolemia [email or web address] Not available 08:32:27 Mother Allergy pt. added direct ly (08/10) [email or web address] Not available 08/10/2022 13:04:20 Brother Hypertensive disorder [email or web address] Not available 08:31:23 Brother Heart disease [email or web address] Not available 08:31:49 Brother Hypercholest erolemia [email or web address] Not available 08:32:27 Brother Cerebrovascu lar accident pt. added direct ly (09/03) [email or web address]-13 Not available 09/03/2023 11:07:40 Sister Hypertensive disorder [email or web address] Not available 08:31:23 Sister Hypercholest erolemia [email or web address] Not available 08:32:27 Maternal Grandfather Heart disease [email or web address] Not available 08:31:49 Maternal Uncle Allergy pt. added direct ly (08/10) [email or web address] Not available 08/10/2022 13:04:20 Paternal Grandmother Obesity pt. added direct ly (08/10) [email or web address] Not available 08/10/2022 13:08:19 Medical History Condition Response Gout N Other Y Kidney Stones Y Depression Y COPD Y Osteoporosis/Osteopenia Y Constipation Y Spine Problems Y Heart Attack ([place]) Y Obstructive Sleep Apnea Y Anxiety Disorder [...] virus, quadrivalent, preservative 7 completed Not Available [facility] 01/01/2023 16:06:44 Influenza, recombinant, quadrivalent, PF 1 completed Not Available [facility] 01/01/2023 16:06:44 Influenza, recombinant, quadrivalent, PF 0 completed Not Available [facility] 01/01/2023 16:06:44 zoster recombinant 1 completed Not Available [facility] 01/01/2023 16:06:44 zoster recombinant 1 completed Not Available [facility] 01/01/2023 16:06:44 MMR 6 completed Not Available [facility] 01/01/2023 16:06:44 COVID-19, mRNA, LNP-S, PF, 100 mcg/0.5mL dose or 50 mcg/0.25mL dose 1 completed Not Available [facility] 01/01/2023 16:06:44 COVID-19, mRNA, LNP-S, PF, 100 mcg/0.5mL dose or 50 mcg/0.25mL dose 1 completed Not Available [facility] 01/01/2023 16:06:44 COVID-19, mRNA, LNP-S, PF, 100 mcg/0.5mL dose or 50 mcg/0.25mL dose 1 completed Not Available [facility] 01/01/2023 16:06:44 Pneumococcal conjugate PCV20, polysaccharide [id number] conjugate, adjuvant, PF 2 completed Not Available [facility] 01/01/2023 16:06:44 pneumococcal polysaccharide PPV23 1 completed Not Available [facility] 01/01/2023 16:06:44 pneumococcal polysaccharide PPV23 7 completed Not Available [facility] 01/01/2023 16:06:44 Influenza, split virus, quadrivalent, PF 9 completed [facility] Available [facility] 01/01/2023 16:06:44 Influenza, split virus, quadrivalent, PF 2 completed Not Available [facility] 01/01/2023 16:06:44 Influenza, split virus, quadrivalent, PF 8 completed Not Available [facility] 01/01/2023 16:06:44 influenza, unspecified formulation 4 completed Kary uRst null, [place] - [facility] - [place] [facility] [place] 08/08/2024 13:51:39 Respiratory syncytial virus (RSV) MAB, unspecified 4 completed Araceli Velasquez null, [place] [facility] [place] [facility] [place] 06/06/2024 09:21:15 Influenza, high-dose, quadrivalent, PF 3 completed Kary Rust null, [place] [facility] [place] [facility] [place] 08/08/2024 13:51:39 RSV, recombinant, protein subunit RSVpreF, adjuvant reconstituted, 0.5 mL, PF 4 completed Kary Rust null, [place] [facility] [place] [facility] [place] 08/08/2024 13:51:39 Influenza, high-dose, trivalent, PF 4 completed Kary aguillon, [place] - [facility] - [place] [facility] [place] 08/08/2024 13:51:39 Past Encounters Encounter ID Performer Location Encounter Start Date Encounter Closed Date Diagnosis/Indication Diagnosis SNOMED-CT Code Diagnosis ICD10 Code Diagnosis Note [id number] Aden Husain, DNP, SUPERVISOR WATER SOFTENER SERVICE, X RAY SERVICE ENGINEER-C [facility]ariat[facility] Adv S[facility] [address] [facility] [address] [place] [address] 12/08/2024 08:48:35 12/08/2024 09:28:10 History of bariatric surgical procedure 319139357 Z98.84 Intentiona l weight loss 903562350 R63.8 History of gastrectomy 630059416 Z90.3 Advised qid intake 50% protein 4884-8374 calories/d y less than 100 carbs/dy Long [...] to correct any vitamin deficienci es. At [facility] ed risk of nutritional deficit 937212951 Z91.89 Dyslipidemia 576695044 E 78.5 Hypertensive disorder 38 441581 I10 Overweight 063233237 E66 .3 [id number] Ernesto Amezcua PA-C [facility] [address] [place] [address] 12/27/2024 14:10:09 12/27/2024 14:38:18 Liver enzymes level above reference range 670751058 R74.01 Metabolic dysfunction-associate d steatohepatitis 372514703 K75.81 Gastroesop hageal reflux disease without esophagitis 112455928 K21.9 Chronic id iopathic constipation 16538948 K59.04 History of colonoscopy 3368861569 09 Z98.890 Health Concerns Section Related Observation LastModified by Organization Detai ls LastModified Time None Recorded Concern Status LastModified by Organization Details LastModified Time None Recorded Payers Encounter Date Sequence Insurance Name Policy Number Policy Acosta Covered Member ID Acosta Member ID Guarantor Name 12/27/2024 2 [employer] (MEDICARE SUPPLEMENT) Maria Isabel Doran [id number] Maria Isabel Doran 12/27/2024 1 [place] Maria Isabel Doran [id number] Maria Isabel Doran Notes Date Note Type [...] overall at this time. Ernesto Amezcua PA-C [address], [place], [address], [facility] - [place] [facility] [place] 12/27/2024 14:41:34 OBGyn Episode No OBEpisode recorded.
--- OUTSIDE RECORDS SUMMARY | 2025-01-07 13:26 | XMS_ITS | Patient Health Record ---
Author Organization [facility] Address [address] [facility] [address] [place] Khan [id number] Care Team Providers Care Funeral Home Director Name Role Phone Jeyson Benitez Primary Care Provider [phone] Sang Regan Unavailable [phone] Marlena Antonio Unavailable [phone] China Sánchez Unavailable [phone] Allergies Allergen (clinical drug ingredient) Drug/Non Drug Allergy documented on EMR Reaction Allergy Type Onset Date Status indomethacin Indomethacin disoriented Drug Allergy Active milnacipran Savella memory loss and excessive drowsiness Drug Allergy Active Penicillin anaphylaxis Drug Allergy Acti ve Results Component Value Reference Range Notes P-Hemoglobin A1C Reviewed date:06/29/2024 04:17:23 PM Interpretation:Normal Performing Lab: Notes/Report: Test performed by [facility], And[facility] [address] [place] [address] , [address], [place] [address] Tim Parrish MD, Licensed Bondsman CLIA: [id number] Hemoglobin A1C 5.4 <5.7 % The following HbA1c ranges recommended by the [place] [employer] (ADA) may be used as an aid in the diagnosis of diabetes mellitus. HbA1c Suggested Diagnosis >=6.5% Diabetic 5.7% - 6.4% Pre-Diabetic <5.7% Non-Diabetic Miscell Ref Lab Test Reviewed date:06/29/2024 10:43:23 AM Interpretation: Normal Performing Lab: Notes/Report: Test Cancelled Test Cancelled Other Percent Saturation Reviewed date:06/29/2024 04:17:23 PM Interpretation:Normal Performing Lab: Notes/Report: Test performed by [facility] [address] [place] [address] , [address], [place] [address] Tim Parrish MD, Licensed Bondsman CLIA: [id number] Percent Saturation 29 15-50 % Estimated Average Glucose Reviewed date:06/29/2024 04:17:23 PM Interpretation:Normal Performing Lab: Notes/Report: Test performed by [facility] [address] [place] [address] , [place] [address] Tim Parrish MD, Licensed Bondsman CLIA: [id number] Estimated Average Glucose (eAG) 108 Estimated Average [...] date:06/29/2024 10:43:05 AM Interpretation: Performing Lab: Notes/Report: Influenza Screen (in house) Reviewed date:01/03/2025 12:11:45 PM Interpretation:neg Performing Lab: Notes/Report: neg results neg CBC Fingerstick (in house) Reviewed date:01/03/2025 12:11:45 PM Interpretation: Performing Lab: Notes/Report: wbc 12.9 3.5 - 10 lym 5.5 15 - 50 mid 2.0 2 - 15 gran 92.5 35 - 80 rbc 4.27 3.5 - 5.5 hgb 12.9 11.5 - 16.5 hct 39.1 35 - 55 mcv 91.5 75 - 100 mch 30.2 25 - 35 mchc 33.0 31 - 38 plat 151 100 - 400 Covid test (in house) Reviewed date:01/03/2025 12:11:45 PM Interpretation:neg Performing Lab: Notes/Report: neg Result: neg CXR Reviewed date:01/02/2025 12:54:22 AM Interpretation: Performing Lab: Notes/Report: Urinalysis - Inhouse Reviewed date:01/02/2025 05:01:33 PM Interpretation: Performing Lab: Notes/Report: Color/Clarity yellow/cloudy Leuk 3+ Nitrite Neg Urobili 3.2 Protein 2+ pH 5.5 Blood 1+ Sp. Gr. 1.015 Ketone Trace Bili 1+ Gluc Neg P-Culture, Urine Reviewed date:01/02/2025 03:44:10 PM Interpretation:See duplicate order Performing Lab: Notes/Report: See duplicate order CBC Fingerstick (in house) Reviewed date:10/19/2024 08:08:25 [...] - 38 plat 215 100 - 400 P-Vitamin B1 (Thiamine), Ser um/Plasma, LC/MS/MS Reviewed date:06/29/2024 04:17:23 PM Interpretation:Normal Performing Lab: Notes/Report: Test Cancelled Test Cancelled TNP - Incor rect Specimen. Unable to perform due to incorrect specimen submission P-Vitamin D 25-Hydroxy Reviewed date:06/29/2024 04:17:23 PM Interpretation:Normal Performing Lab: Notes/Report: Test performed by [facility] [address] [place] [address] , [address], [place] [address] Tim Parrish MD, Licensed Bondsman CLIA: [id number] Vitamin D 25-Hydroxy 65.0 30.0-100.0 ng/mL Interpretation [...] Interpretation:Normal Performing Lab: Notes/Report: Test performed by [facility] [address] , [address], [place] [address] Tim Parrish MD, Licensed Bondsman CLIA: [id number] TSH 1.08 0.43-5.25 mU/L P-Prealbumin Reviewed date:06/29/2024 04:17:23 PM Interpretation:Normal Performing Lab: Notes/Report: Test performed by [facility] [address] [place] [address] , [address], [place] [address] Tim Parrish MD, Licensed Bondsman CLIA: [id number] Prealbumin 21.0 20.0-40.0 mg/dL P-MMA Serum/Plasma, Vitamin B12 Status Reviewed date:06/29/2024 04:17:23 PM Interpretation:Normal Performing Lab: Notes/Report: MMA Serum/Plasma, Vitamin B12 Status 0.15 0.00-0.40 umol/L INTERPRETIVE INFORMATION: MMA Serum/Plasma, Vitamin B12 Status This test was developed and its performance characteristics determined by [facility]. It has not been cleared or approved by the US Food and Drug Administration. This test was performed in a CLIA certified laboratory and is intended for clinical purposes. Performed By: [facility] [address] [place] [address] Licensed Bondsman: Cesar Arnold MD, PhD CLIA Number: [id number] P-Lipid Panel Reviewed date:06/29/2024 04:17:23 PM Interpretation:Normal Performing Lab: Notes/Report: Test performed by [facility] [address] [place] [address] Tim Parrish MD, Licensed Bondsman CLIA: [id number] Cholesterol 125 <200 mg/dL Triglycerides 82 <150 [...] Results: 57 Units: mg/dL % Change: - ------- Test Date: 06/22/2024 LDL Results: 54 Units: mg/dL % Change: -5% P-Iron Reviewed date:06/29/2024 04:17:23 PM Interpretation:Normal Performing Lab: Notes/Report: Test performed by [facility] , [place] [address] Tim Parrish MD, Licensed Bondsman CLIA: [id number] Iron 99 37-145 ug/dL P-Iron Binding Cap Reviewed date:06/29/2024 04:17:23 PM Interpretation:Normal Performing Lab: Notes/Report: Test performed by [facility] , [place] [address] Tim Parrish MD, Licensed Bondsman CLIA: [id number] Iron Binding Cap 344 250-450 ug/dL P-T4 Free (thyroxine) Reviewed date:06/29/2024 04:17:23 PM Interpretation:Normal Performing Lab: Notes/Report: Test performed by [facility] , [place] [address] Tim Parrish MD, Licensed Bondsman CLIA: [id number] Thyroxine Free (free T4) 0.94 0.86-1.76 ng/dL P-Ferritin Reviewed date:06/29/2024 04:17:23 PM Interpretation:Normal Performing Lab: Notes/Report: Test performed by [facility] , [place] [address] Tim Parrish MD, Licensed Bondsman CLIA: [id number] Ferritin 25.1 13.0-301.0 ng/mL P-Selenium, Serum/Plasma Reviewed [...] developed and its performance characteristics determined by [facility]. It has not been cleared or approved by the US Food and Drug Administration. This test was performed in a CLIA certified laboratory and is intended for clinical purposes. Performed By: [facility] [address] [place] [address] Licensed Bondsman: Cesar Arnold MD, PhD CLIA Number: [id number] P-Folate Reviewed date:06/29/2024 04:17:23 PM Interpretation:Normal Performing Lab: Notes/Report: Test performed by [facility] [address] , [address], [place] [address] Tim Parrish MD, Licensed Bondsman CLIA: [id number] Folate >20 >4.59 ng/mL P-Copper Reviewed date:06/29/2024 [...] developed and its performance characteristics determined by [facility]. It has not been cleared or approved by the US Food and Drug Administration. This test was performed in a CLIA certified laboratory and is intended for clinical purposes. Performed By: [facility] [address] [place] [address] Licensed Bondsman: Cesar Arnold MD, PhD CLIA Number: [id number] H-CBC Reviewed date:01/04/2025 11:41:11 PM Interpretation: Performing Lab: Notes/Report: WBC 11.5 4.8-10.8 K/mm3 RBC 4.69 4.20-5.40 M/mm3 HGB 13.6 12.2-16.2 g/dL HCT 41.5 37.0-47.0 % MCV 88.5 81-99 fl MCH 29.0 27.0-31.2 pg MCHC 32.8 31.8-35.4 g/dL RDW-SD 47.8 RDW 14.9 11.5-17.5 % PLT 268 142-424 K/mm3 MPV 8.7 7.4-10.4 fl NE% 68.3 37.0-80.0 % LY% 13.9 10-50 % MO% 5.8 1.7-9.3 % EO% 3.6 0.1-12.0 % BA% 0.8 0.1-2.0 % NRBC% 0 IG% 7.6 NE# 7.9 1.8-7.8 K/mm3 LY# 1.6 0.7-4.5 K/mm3 MO# 0.7 0.1-1.0 K/mm3 EO# 0.4 0.0-0.4 Kmm3 BA# 0.1 0-0.2 K/mm3 NRBC# 0 IG# 0.88 H-DIFF Reviewed date:01/04/2025 11:41:11 PM Interpretation: Performing Lab: Notes/Report: QUIN MANUAL DIFFERENTIAL MANUAL DIFF TCC 100 NEUT%M 62 42-76 % LYMPH%M 24 10-50 % RG% 1.0 MONO%M 9 2-9 % EOS%M 4 0-3 % PLTE Normal POLC 1+ POIK 1+ TGT 1+ H-CMP Reviewed date:01/04/2025 11:41:11 PM Interpretation: Performing Lab: Notes/Report: NA 140 136-145 mmol/L K 3.3 3.5-5.1 mmoL/L CL 100 98-107 mmol/L CO2 27 22.0-30.0 mmol/L GAP 16.3 5-15 mEq/L BUN 27 7-17 mg/dl CREATT 0.90 0.52-1.04 mg/dl CRCLE 56 50-200 mL/min GFRAA 76 >60 ML/MIN EGFR 62 >60 ml/min GLU 149 74-100 mg/dl CA 9.5 8.4-10.2 mg/dl BILIT 0.6 0.2-1.3 mg/dl AST 99 14-36 U/L ALT 110 12-78 U/L TP 7.3 6.3-8.2 g/dl ALB 3.8 3.5-5.0 g/dl GLOB 3.5 1.3-3.2 g/dL AGRATIO 1.1 1.1-1.8 ALP 147 38-126 U/L P-Comprehensive Metabolic Pa suzanne (CMP) Reviewed date:06/29/2024 04:17:23 PM Interpretation:bun 28, alt 81, ast 51 Performing Lab: Notes/Report: Test performed by [facility], [address] , [address], [place] [address] Tim Parrish MD, Licensed Bondsman CLIA: [id number] Sodium 139 135-145 mmol/L Potassium 4.9 3.5-5.3 [...] 0.4 <0.2-1.2 mg/dL A/G Ratio 1.9 1.1-2.5 H-Lactic Acid Reviewed date:01/04/2025 11:41:11 PM Interpretation: Performing Lab: Notes/Report: Comment Repeat 2nd or 3rd lactic acid to reflex if initial or subseq level > 2 LACTIC 0.6 0.7-2.1 mmol/L H-CBC Reviewed date:01/05/2025 08:49:49 AM Interpretation: Performing Lab: Notes/Report: WBC 8.6 4.8-10.8 K/mm3 Delta: 11.5 o n 01/04/25-1802 RBC 4.23 4.20-5.40 M/mm3 HGB 12.3 12.2-16.2 g/dL HCT 37.4 37.0-47.0 % MCV 88.4 81-99 fl MCH 29.1 27.0-31.2 pg MCHC 32.9 31.8-35.4 g/dL RDW-SD 47.9 RDW 14.7 11.5-17.5 % PLT 284 142-424 K/mm3 MPV 9.0 7.4-10.4 fl NE% 56.8 37.0-80.0 % LY% 19.3 10-50 % MO% 8.1 1.7-9.3 % EO% 5.0 0.1-12.0 % BA% 1.3 0.1-2.0 % NRBC% 0 IG% 9.5 NE# 4.9 1.8-7.8 K/mm3 LY# 1.7 0.7-4.5 K/mm3 MO# 0.7 0.1-1.0 K/mm3 EO# 0.4 0.0-0.4 Kmm3 BA# 0.1 0-0.2 K/mm3 NRBC# 0 IG# 0.81 H-DIFF Reviewed date:01/05/2025 08:49:49 AM Interpretation: Performing Lab: Notes/Report: QUIN MANUAL DIFFERENTIAL MANUAL DIFF TCC 100 NEUT%M 59 42-76 % LYMPH%M 30 10-50 % MONO%M 10 2-9 % EOS%M 1 0-3 % PLTE Normal RM Normal H-BMP Reviewed date:01/05/2025 08:49:49 AM Interpretation: Performing Lab: Notes/Report: NA 141 136-145 mmol/L K 3.7 3.5-5.1 mmoL/L CL 104 98-107 mmol/L CO2 29 22.0-30.0 mmol/L GAP 11.7 5-15 mEq/L BUN 21 7-17 mg/dl CREATT 0.70 0.52-1.04 mg/dl Delta: 0.90 on 01/04/25-1801 CRCLE 58 50-200 mL/min GFRAA 101 >60 ML/MIN Delta: 76 on 01/04/25 EGFR 83 >60 ml/min GLU 92 74-100 mg/dl Delta: 149 on 01/04/25 CA 8.5 8.4-10.2 mg/dl P-CBC with Diff plus Absolut e Counts Reviewed date:06/29/2024 04:17:23 PM Interpretation:Normal Performing Lab: Notes/Report: Test performed by [facility] [address] [place] [address] , [address], [place] [address] Tim Parrish MD, Licensed Bondsman CLIA: [id number] WBC 6.1 3.8-11.5 K/uL Red Blood Cell Count (RBC) 5.03 3.60-5.30 M/mm3 Hemoglobin (Hgb) 14.9 11.5-15.5 gm/dL Hematocrit (HCT) [...] K/uL Absolute Immature Granulocyte 0.02 0.00-0.03 K/uL H-DIFF Reviewed date:01/06/2025 08:21:22 PM Interpretation: Performing Lab: Notes/Report: QUIN MANUAL DIFFERENTIAL MANUAL DIFF TCC 100 NEUT%M 66 42-76 % LYMPH%M 30 10-50 % MONO%M 3 2-9 % EOS%M 1 0-3 % PLTE Normal RM Normal H-BMP Reviewed date:01/06/2025 08:21:23 PM Interpretation: Performing Lab: Notes/Report: NA 143 136-145 mmol/L K 3.9 3.5-5.1 mmoL/L CL 106 98-107 mmol/L CO2 28 22.0-30.0 mmol/L GAP 12.9 5-15 mEq/L BUN 18 7-17 mg/dl CREATT 0.70 0.52-1.04 mg/dl CRCLE 58 50-200 mL/min GFRAA 101 >60 ML/MIN EGFR 83 >60 ml/min GLU 88 74-100 mg/dl CA 8.4 8.4-10.2 mg/dl Glycohemoglobin A1c (in hous e) Reviewed date:06/29/2024 04:17:23 PM Interpretation:5.3% Normal Performing Lab: Notes/Report: 5.3% Normal glycohemoglobin 5.3% 5 - 6.5 % CBC Fingerstick (in house) Reviewed date:07/13/2024 11:31:19 [...] - 38 plat 202 100 - 400 Rapid Strep- Inhouse Reviewed date:07/13/2024 11:31:10 AM Interpretation: Performing Lab: Notes/Report: strep test Neg Urinalysis - Inhouse Reviewed date:07/13/2024 01:20:35 PM Interpretation: Performing Lab: Notes/Report: Color/Clarity yellow/clear Leuk Neg Nitrite 3.2 Urobili Neg Protein 6.0 pH Neg Blood 1.010 Sp. Gr. Neg Ketone Neg Bili Neg Gluc Neg P-Vitamin B1 (Thiamine), Ser um/Plasma, LC/MS/MS Reviewed [...] developed and its performance characteristics determined by [facility]. It has not been cleared or approved by the US Food and Drug Administration. This test was performed in a CLIA certified laboratory and is intended for clinical purposes. Performed By: [facility] [address] [place] [address] Licensed Bondsman: Cesar Arnold MD, PhD CLIA Number: [id number] H-Culture, Blood Reviewed date:01/06/2025 08:19:38 PM Interpretation: Performing Lab: Notes/Report: CUBLD NO GROWTH AFTER 48 HOURS CUBLD NO GROWTH AFTER 48 HOURS H-CBC Reviewed date:01/06/2025 08:21:22 PM Interpretation: Performing Lab: Notes/Report: WBC 7.9 4.8-10.8 K/mm3 RBC 4.29 4.20-5.40 M/mm3 HGB 12.6 12.2-16.2 g/dL HCT 38.2 37.0-47.0 % MCV 89.0 81-99 fl MCH 29.4 27.0-31.2 pg MCHC 33.0 31.8-35.4 g/dL RDW-SD 47.2 RDW 14.7 11.5-17.5 % PLT 323 142-424 K/mm3 MPV 8.7 7.4-10.4 fl NE% 56.2 37.0-80.0 % LY% 22.2 10-50 % MO% 8.6 1.7-9.3 % EO% 4.3 0.1-12.0 % BA% 1.4 0.1-2.0 % NRBC% 0 IG% 7.3 NE# 4.5 1.8-7.8 K/mm3 LY# 1.8 0.7-4.5 K/mm3 MO# 0.7 0.1-1.0 K/mm3 EO# 0.3 0.0-0.4 Kmm3 BA# 0.1 0-0.2 K/mm3 NRBC# 0 IG# 0.58 CBC Fingerstick (in house) Reviewed date:08/28/2024 08:12:23 [...] analytical performance characteristics have been determined by [facility] [place], [place]. It has not been cleared or approved by the U.S. Food and Drug Administration. This assay has been validated pursuant to the CLIA regulations and is used for clinical purposes. Test Performed By Dianwoba Cataula , CLIA [id number] [facility] [address], Filipe Meier MD PhD Holter Monitor- 48 hour Reviewed date:08/15/2024 08:13:51 AM Interpretation:NSR Performing Lab: Notes/Report: NSR Urinalysis - Inhouse Reviewed date:01/04/2025 11:41:11 PM Interpretation: Performing Lab: Notes/Report: Color/Clarity yellow Leuk trace Nitrite neg Urobili 3.2 Protein trace pH 5.5 Blood neg Sp. Gr. 1.020 Ketone neg Bili neg Gluc neg CT Scan : Abd and Pelvis, st one protocol Reviewed date:01/03/2025 12:11:45 PM Interpretation: Performing Lab: Notes/Report: P-Culture, Urine Reviewed date:01/06/2025 08:21:23 PM Interpretation: Performing Lab: Notes/Report: Test performed by [facility], [facility] [address] [place] [address] , [address], [place] [address] Tim Parrish MD, Licensed Bondsman CLIA: [id number] Specimen Source Urine - Void Culture, Urine See Below See Microbiol ogy Report Escherichia coli ESBL 50,000-100,000 CFU /ml Escherichia coli ESBL This isolate is a confirmed ESBL (Extended Spectrum Beta-Lactamase) oil rigger and should be considered clinically resistant to all penicillins, cephalosporins and aztreonam. Sensitivity Panel See Below Organism E.coli ESBL Antibiotic INTERP Amikacin S Ampicillin R Aztreonam R Cefepime R Cefoxitin S Ceftazidime R Ceftriaxone R Cefuroxime R Ciprofloxacin R Ertapenem S Gentamicin R Imipenem S Levofloxacin R Meropenem S Nitrofurantoin S Piperacillin/Tazo I Tetracycline R Tobramycin R Trimeth/Sulfa R S=SUSCEPTIBLE I=INTERMEDIATE R=RESISTANT Urinalysis - Inhouse Reviewed date:01/02/2025 10:42:44 AM Interpretation: Performing Lab: Notes/Report: Color/Clarity straw Leuk 1+ Nitrite positive Urobili 3.2 Protein 1+ pH 6.0 Blood trace-intact Sp. Gr. 1.010 Ketone neg Bili neg Gluc neg Medications Medication SIG (Take, Route, Frequency, Duration) Notes Start Date End Date Status Calcium Citrate 150 MG 2 capsules Orally Once a day; Duration: 90 days Active hydrOXYzine HCl 10 MG as directed Orally Two times a day; Duration: 90 days Active Estrace 0.1 MG/GM 1 gm Vaginal 3 times per week 07/13/2024 Active traZODone HCl 100 MG TAKE 1 TABLET BY H ONCE DAILY AT BEDTIME; Duration: 90 Active Pantoprazole Sodium 40 MG TAKE [...] BY MOUTH ONCE DAILY; Duration: 90 Active QUEtiapine Fumarate ER 150 MG 1 tablet in the evening Orally Once a day Active Aspirin 81 MG 1 tab(s) orally once a day; Duration: 30 day(s) Active Isosorbide Dinitrate 30 MG 1 tablet Orally once daily; Duration: 90 days Active Vitamin D3 50 MCG (1999 UT) 1 tablet Orally Once a day; Duration: 30 day(s) Active Melatonin 5 MG 1 tablet at bedtime as needed Orally qhs Active LORazepam 1 MG 1 tablet at bedtime as needed Orally Once a day Active Multivitamin - 1 tab(s) orally once a day w/ Iron Active Nitroglycerin 0.4 MG 1 tab(s) sublingual ly q 5min prn x 3 Active Prolia 60 MG/ML as directed subcutaneously every 6 months; Duration: 12 month(s) Active CareTouch CPAP & BIPAP Hose 1 DIRECTED Active levoFLOXacin 750 MG 1 tablet Orally Once a day; Duration: 10 day(s) 01/02/2025 Active Flonase Allergy Relief 50 MCG/ACT 1 spray in each nostril Nasally Twice a day Active Venlafaxine HCl ER 225 MG TAKE 1 TABLET BY MOUTH ONCE DAILY WITH FOOD; Duration: 30 Active Montelukast Sodium 10 MG 1 tablet Orally Once a day 02/29/2024 Active lamoTRIgine 150 MG TAKE 1 TABLET BY TWICE DAILY; Duration: 90 Active Linzess 290 MCG 1 capsule at least 3 0 minutes before the first meal of the day on an empty stomach Orally Once a day; Duration: 30 day(s) Active Baclofen 10 MG 1 tablet as needed O rally Twice a day Active Immunizations Vaccine Route Administration Date Status Comme nts Morphine 10mg/ml IM Intramuscular 03/03/2006 Administered xFluzone High Dose-private (65yr&older) Unknown 03/22/2024 Administered Shingrix Unknown 03/18/2021 Administered Shingrix Unknown 06/16/2021 Administered Prevnar (PCV20) Unknown 04/24/2022 Administered PNEUMOVAX 23 VACCINE IM Intramuscular 06/15/2017 Administe red PNEUMOVAX 23 VACCINE Unknown 03/18/2021 Administered PNEUMOVAX 23 VACCINE Unknown 01/02/2025 Pending MMR Unknown 12/22/2005 Administered Fluzone Quad-Medicare (6months&older) Unknown 03/18/2021 Administered Fluzone Quad (6months&older) IM Intramuscular 05/28/2017 Administered Fluzone Quad (6months&older) IM Intramuscular 04/30/2020 Administered Fluzone PF Quad (6-35 months) Unknown 04/24/2022 Administered Fluzone High Dose (65yr and older) Unknown 04/29/2023 Administered COVID 19 Moderna Unknown 09/11/2020 Administered COVID 19 Moderna Unknown 10/09/2020 Administered COVID 19 Moderna Unknown 06/16/2021 Administered Problems Problem Type SNOMED Code ICD Code Onset Dates Problem Status W/U Status Risk Notes Problem Essential hypertension (84456902) Essential (primary) hypertension (I10) Active confirmed Problem History of circulatory system disease (502209537) History of ASCVD (Z86.79) Active confirmed Problem COPD - Chronic obstructive pulmonary disease (48816341) COPD (chronic obstructive pulmonary disease) (J44.9) Active confirmed Problem Acute exacerbation of chronic obstructive airways disease (587495130) COPD with exacerbation (J44.1) Active confirmed Problem Osteopenia (766012853) Osteopenia (M85.80) Active confirmed Problem Seasonal allergy (752847960) Seasonal allergies (J30.2) Active confirmed Problem Mixed anxiety and depressive disorder (340463287) Depression with anxiety (F41.8) Active confirmed Problem Overactive urinary bladder (disorder) (845252847) OAB (overactive bladder) (N32.81) Active confirmed Problem Memory loss (32847545) Memory loss (R41.3) Active confirmed Problem Fibromyalgia (568029531) Fibromyalgia (M79.7) Active confirmed Problem Vasomotor rhinitis (3920845) Vasomotor rhinitis (J30.0) Active confirmed Problem Irritable bowel syndrome with diarrhea (061076904) Irritable bowel syndrome with diarrhea (K58.0) Active confirmed Problem Migraine without aura, not refractory (891772253) Migraine without aura and without status migrainosus, not intractable (G43.009) Active confirmed Problem Atrophic vaginitis (46728635) Atrophic vaginitis (N95.2) Active confirmed Problem Sacroiliitis (06677811) Sacroiliitis (M46.1) Active confirmed Problem Dependence on supplemental oxygen (804399862412) Oxygen dependent (Z99.81) Active confirmed Problem Dyslipidemia (698225504) Dyslipidemia (E78.5) Active confirmed Problem Allergic rhinitis caused by pollen (52631540) Seasonal allergic rhinitis due to pollen (J30.1) Active confirmed Problem Degenerative disc disease (09260319) DDD (degenerative disc disease), lumbar (M51.36) Active confirmed Problem 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) Active confirmed Problem Malabsorption syndrome (66824548) Malabsorption due to intolerance, not elsewhere classified (K90.49) Active confirmed Problem Personal history of tobacco use (Z87.891) Active confirmed Problem Degeneration of thoracic intervertebral disc (98048575) DDD (degenerative disc disease), thoracic (M51.34) Active confirmed Vital Signs Heart Rate 86 /min 01/04/2025 Blood pressure diastolic 70 mm Hg 01/02/2025 Height 65 in 01/04/2025 Blood pressure systolic 102 mm Hg 01/02/2025 Weight 141.6 lbs 01/04/2025 BMI 23.56 kg/m2 01/04/2025 Encounters Encounter Location Date Provider Diagnosis [facility] [address] [facility] [address] [place], [place] [id number] 02/03/2024 China Sánchez Non-seasonal allergi c rhinitis, unspecified trigger J30.89 ; Benign paroxysmal positional vertigo due to bilateral vestibular disorder H81.13 and Symptomatic hypotension I95.9 [facility] [address] [facility] [address] [place], [place] [id number] 02/29/2024 R Foreign Emmanuel Fibromyalgia M79.7 a nd Seasonal allergies J30.2 [facility] [address] [place] [id number] 03/30/2024 R Foreign Emmanuel Vaginal yeast infect ion B37.31 and Abnormal thyroid function test R94.6 [facility] [address] [facility] [address] [place] [id number] 04/27/2024 R Foerign Emmanuel Seasonal allergies J30.2 and Fibromyalgia M79.7 [facility] [address] [facility] [address] [place] [id number] 06/22/2024 R Foreign Emmanuel Fibromyalgia M79.7 ; Malabsorption due to intolerance, not elsewhere classified K90.49 ; Status post bariatric surgery Z98.84 ; Dyslipidemia E78.5 ; Vaginal yeast infection B37.[address] [facility] [address] [facility] [address] [place] [id number] 06/26/2024 Sang [place] Malabsorption due to intolerance, not elsewhere classified K90.49 [facility] [address] [facility] [address] [place], [place] [id number] 07/13/2024 R Foreign Emmanuel URI (upper respirato ry infection) J06.9 and Atrophic vaginitis N95.2 [facility] [address] [facility] [address] [place] [id number] 07/25/2024 R Foreign Emmanuel Palpitations R00.2 [facility] [address] [facility] [address] [place] [id number] 08/28/2024 Marlena Antonio Sinusitis J32.9 and Papules R23.8 [facility] [address] [facility] [address] [place], [place] [id number] 10/19/2024 R Foreign Emmanuel Acute bronchitis J20 .9 ; COPD (chronic obstructive pulmonary disease) J44.9 ; Dyslipidemia E78.5 ; Seasonal allergies J30.2 and BMI 24.0-24.9, adult Z68.24 [facility] [address] [facility] [address] [place] [id number] 12/29/2024 China Crowdy Hypoxia R09.02 ; Dysuria R30.0 and Chills R68.83 [facility] [address] [place], [place] [id number] 12/30/2024 China Crowdy Dysuria R30.0 [facility] [address] [place], [place] [id number] 01/02/2025 R Foreign Emmanuel Flank pain, acute R10.10 ; Hematuria R31.9 and Adult general medical examination Z00.00 [facility] [address] [place], [place] [id number] 01/04/2025 R Foreign Emmanuel Pyelonephritis N12 [facility] [address] [place], [place] [id number] 02/16/2024 R Foreign Emmanuel Fibromyalgia M79.7 [facility] [address] [place], [place] [id number] 03/14/2024 R Foreign Emmanuel [facility] [address] [place], [place] [id number] 05/24/2024 R Ofreign Emmanuel Seasonal allergies J30.2 [facility] [address] [place], [place] [id number] 06/29/2024 R Foreign Emmanuel [facility] [address] [place], [place] [id number] 07/03/2024 R Foreign Emmanuel [facility] [address] [place], [place] [id number] 08/15/2024 R Foreign Emmanuel [facility] [address] [place], [place] [id number] 08/15/2024 R Foreign Emmanuel [facility] [address] [place], [place] [id number] 08/17/2024 R Foreign Emmanuel Seasonal allergies J30.2 [facility] [address] [place], [place] [id number] 10/31/2024 R Foreign Emmanuel [facility] [address] [place] [id number] 11/21/2024 Jeyson Manzoeet [facility] [address] [facility] [address] [facility] [address] [place] [id number] 01/02/[address] [facility] [address] [facility] [address] [facility] [address] [place] [id number] 01/02/2025 Jeyson Benitez Assessments Encounter Date Diagnosis (ICD [...] intake. 12/30/2024 Dysuria (ICD-10 - R30.0) 01/02/2025 Hematuria (ICD-10 - R31.9) 01/02/2025 Flank pain, acute (ICD-10 - R10.10) See the following phone encounter. Stat CT scan shows no hydronephrosis or stones. There is some mild stranding around the left kidney. May represent early pyelonephritis 01/04/2025 Pyelonephritis (ICD-10 - N12) She has failed to oral antibiotics. Plan for direct admission to [facility] for IV fluids and IV antibiotics. 01/02/2025 Adult general medical examination (ICD-10 - Z00.00) Patient instructed to return to office Annually for Annual Wellness Visits to include annual screenings of Pain assessment, Functional Ability assessment, Cognitive Ability assessment, Fall Risk assessment, Depression screening and Bladder control screening. 12/29/2024 Chills (ICD-10 - R68.83) 10/19/2024 Dyslipidemia [...] Treatment Pending Test Test Name Order Date P-Comprehensive Metabolic Panel (CMP) P-Lipid Panel 09/21/2023 Insurance Providers Payer Name Payer Address Payer Phone Subscriber Number Group Number Insured Name Patient Relationship to Insured Coverage Start Date Coverage End Date MEDICARE PART B [address] [address] [place] [id number] [phone] [id number] WENDY DORAN Self - patient is the insured [employer] [address] [place] [id number] WENDY DORAN Self - patient is the insured Medications Administered Medication Instructions Date of Administration Dosage Notes Dexamethasone 06/28/2018 1 mL Dexamethasone 05/02/2019 1 mL Dexamethasone 02/10/2022 1 mL Dexamethasone 06/09/2022 1 mL Phenergan 12.5 mgs. 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 Ca th showed [...] Hospitalization History Reason Date(Month/Year) Drs office in [place]-possible UTI, te sted negative 12/2019 [place] [facility]-Bronchitis 03/2018 [place] [facility]-diarrhea 11/2015 [place] [facility]-constipation/impaction 2015 [facility]-heart attack 12/31/2014 [facility] ER-back pain 06/2012 [facility] ER-diarrhea 03/2011
--- OUTSIDE RECORDS SUMMARY | 2025-01-07 13:26 | XMS_ITS | Data Portability ---
Author Organization [place] [facility] [place] [facility] [place] [facility] ADMIN Address [address] [place] [id number] Care Team Providers Care Liquor Maker Name Role Phone GENET BRUCE Primary Care Provider Assessment Encounter Date Assessment Date Assessment LastModified by Organization Details LastModified Time 06/26/2024 06/26/2024 68-year-old female with: 1) Elevated liver enzymes/CISNEORS: First noted following bariatric surgery 12/2022. -US [...] for screening. f/u 6 months and PRN [email or web address] Not available 06/26/2024 13:49:07 12/27/2024 12/27/2024 69-year-old [...] recommended 04/2029 for screening. f/u 1 month [email or web address] Not available 12/27/2024 14:41:04 Plan of Treatment Reminders Order Date Submit Date Provider Last Modified By Organization Details Last Modified Time Details Appointments Establish ed Visit 15 min 2024 01:45P M Ernesto Amezcua PA-C Not available Not available Not available OV EST 20 2024 10:00A M Aden Husain, CAMMIE, [employer], MOLDER TRIMMER-C Not available Not available Not available Lab CBC w/ auto diff 2024 025 ISAAC [facility], [address], [address], [place], [address], 12/15/2024 14:37:20 CMP, serum or plasma 2024 025 ISAAC [facility], [address], [address], [place], [address], 12/15/2024 14:37:21 TSH + free T4, serum 2024 025 ISAAC [facility], [address], [address], [place], [address], 12/15/2024 14:37:19 HbA1c (hemoglob in A1c), blood 2024 025 ISAAC [facility], [address], [address], [place], [address], 12/15/2024 14:37:24 lipid panel, serum 2024 025 ISAAC [facility], [address], [address], [place], [address], 12/15/2024 14:37:22 copper, serum or plasma 2024 025 ISAAC [facility], [address], [address], [place], [address], 12/15/2024 14:37:29 selenium, quantitat silvino, blood 2024 025 ISAAC [facility], [address], [address], [place], [address], 12/15/2024 14:37:31 zinc, serum or plasma 2024 025 ISAAC [facility], [address], [address], [place], [address], 12/15/2024 14:37:30 iron + TIBC + ferritin, serum 2024 025 ISAAC [facility], [address], [address], [place], [address], 12/15/2024 14:37:18 folate, serum 2024 025 ISAAC [facility], [address], [address], [place], [address], 12/15/2024 14:37:24 vitamin E, serum 2024 025 ISAAC [facility], [address], [address], [place], [address], 12/15/2024 14:37:23 vitamin A (retinol) , serum 2024 025 ISAAC [facility], [address], [address], [place], [address], 12/15/2024 14:37:25 prealbumi n, serum 2024 025 ISAAC [facility], [address], [address], [place], [address], 12/15/2024 14:37:30 thiamine, QN, blood 2024 025 ISAAC [facility], [address], [address], [place], [address], 12/15/2024 14:37:27 methylmal jareth, QN, serum or plasma 2024 025 ISAAC [facility], [address], [address], [place], [address], 12/15/2024 14:37:28 vitamin D, 25-hydrox y, total, serum 2024 025 ISAAC [facility], [address], [address], [place], [address], 12/15/2024 14:37:26 CMP, serum or plasma 2023 024 [email or web address] 4 [facility] (Registration ), [address], [place], [address], 07/07/2024 10:22:50 CBC [address] (Registration ), [address], [place], [address], 07/07/2024 10:22:50 PT/INR [address] (Registration ), [address], [place], [address], 07/07/2024 10:22:50 liver fibrosis score, calculate d by ELF, serum or plasma [address] (Registration ), [address] [place] [address], [place], [address], 07/07/2024 10:22:50 selenium, quantitat silvino, blood 2023 024 [email or web address] [facility], [address], [address], [place], [address], 07/06/2024 13:36:28 CMP, serum or plasma 2023 024 [email or web address] [facility], [address], [address], [place], [address], 07/06/2024 13:36:30 CBC w/ auto diff 2023 024 [email or web address] [facility], [address], [address], [place], [address], 07/06/2024 13:36:29 HbA1c (hemoglob in A1c), blood 2023 024 [email or web address] [facility], [address], [address], [place], [address], 07/06/2024 13:36:30 TSH + free T4, serum 2023 [facility], [address], [address], [place], [address], 07/06/2024 13:36:30 lipid panel, serum 2023 [email or web address] [facility], [address], [address], [place], [address], 07/06/2024 13:36:30 copper, serum or plasma 2023 [email or web address] [facility], [address], [address], [place], [address], 07/06/2024 13:36:28 zinc, serum or plasma 2023 [facility], [address], [address], [place], [address], 07/06/2024 13:36:28 iron + TIBC + ferritin, serum 2023 [email or web address] [facility], [address], [address], [place], [address], 07/06/2024 13:36:28 folate, serum 2023 [email or web address] [facility], [address], [address], [place], [address], 07/06/2024 13:36:29 vitamin E, serum 2023 [email or web address] [facility], [address], [address], [place], [address], 07/06/2024 13:36:29 vitamin A (retinol) , serum 2023 [email or web address] [facility], [address], [address], [place], [address], 07/06/2024 13:36:29 prealbumi n, serum 2023 024 [email or web address] [facility], [address], [address], [place], [address], 07/06/2024 13:36:29 thiamine, QN, blood 2023 024 [email or web address] [facility], [address], [address], [place], [address], 07/06/2024 13:36:29 methylmal jareth, QN, serum or plasma 2023 024 [email or web address] [facility], [address], [address], [place], [address], 07/06/2024 13:36:29 vitamin D, 25-hydrox y, total, serum 2023 [email or web address] [facility], [address], [address], [place], [address], 07/06/2024 13:36:30 selenium, quantitat silvino, blood 2023 024 [email or web address] [facility], [address], [address], [place], [address], 03/14/2024 10:57:17 HbA1c (hemoglob in A1c), blood 2023 024 [email or web address] [facility], [address], [address], [place], [address], 03/14/2024 10:57:17 iron + TIBC + ferritin, serum 2023 024 [email or web address] [facility], [address], [address], [place], [address], 03/14/2024 10:57:17 vitamin D, 25-hydrox y, total, serum 2023 [facility], [address], [address], [place], [address], 03/14/2024 10:57:18 vitamin A (retinol) , serum 2023 [facility], [address], [address], [place], [address], 03/14/2024 10:57:18 thiamine, QN, blood 2023 [email or web address] [facility], [address], [address], [place], [address], 03/14/2024 10:57:19 methylmal jareth, QN, serum or plasma 2023 [facility], [address], [address], [place], [address], 03/14/2024 10:57:19 copper, serum or plasma 2023 [email or web address] [facility], [address], [address], [place], [address], 03/14/2024 10:57:16 zinc, serum or plasma 2023 [email or web address] [facility], [address], [address], [place], [address], 03/14/2024 10:57:17 CBC w/ auto diff 2023 [email or web address] [facility], [address], [address], [place], [address], 03/14/2024 10:57:17 CMP, serum or plasma 2023 024 [facility], [address], [address], [place], [address], 03/14/2024 10:57:17 folate, serum 2023 024 [email or web address] [facility], [address], [address], [place], [address], 03/14/2024 10:57:17 vitamin E, serum 2023 024 [email or web address] [facility], [address], [address], [place], [address], 03/14/2024 10:57:18 TSH + free T4, serum 2023 024 [email or web address] [facility], [address], [address], [place], [address], 03/14/2024 10:57:18 prealbumi n, serum 2023 024 [email or web address] [facility], [address], [address], [place], [address], 03/14/2024 10:57:18 lipid panel, serum 2023 024 [email or web address] [facility], [address], [address], [place], [address], 03/14/2024 10:57:19 Referral None recorded. Procedures biopsy, liver (PROC) - CT or US guidance, depending on radiologi st's preferenc e 2024 025 [email or web address] [facility], [address] [facility], [place], [address], 12/27/2024 14:50:48 Surgeries None recorded. Imaging None recorded. Medication Orders Motegrity 2 mg tablet 2023 024 [email or web address] [facility], [address] [place] [address], [place] [address], [place], [place], [id number], 12/08/2024 08:57:40 Patient TargetsNo targets recorded. Patient InstructionsNo instructions recorded. Reason for Referral None Reported. Results Created Date Observation Date Name Description Value Unit Range Abnormal Flag Note LastModifiedBy Organization Detail LastModifiedTime 03/06/2003/07/2024 FE+TI BC+FE R iron bind.cap.(TI BC) 333 ug/dL 250-45 0 normal Not Available [facility] ([facility]) [address] [place], [address], 03/14/2024 18:37:18 03/06/20 24 03/07/2024 FE+TI BC+FE R UIBC 231 ug/dL 118-36 9 normal Not Available [facility] ([facility]) [address] [place], [address], 03/14/2024 18:37:18 03/06/20 24 03/07/2024 FE+TI BC+FE R iron 102 ug/dL 27-139 normal Not Available [facility] ([facility]) [address] [place], [address], 03/14/2024 18:37:18 03/06/20 24 03/07/2024 FE+TI BC+FE R iron saturation 31 % 15-55 normal Not Available [facility] ([facility]) [address] [place], [address], 03/14/2024 18:37:18 03/06/20 24 03/07/2024 FE+TI BC+FE R ferritin 29 NG/mL 15-150 normal Not Available [facility] ([facility]) [address] [place], [address], 03/14/2024 18:37:18 03/06/20 24 03/07/2024 TSH+F REE T4 TSH 1.870 uIU/m L 0.450- 4.500 normal Not Available [facility] ([facility]) [address] [facility], [place], [address], 03/14/2024 18:37:18 03/06/2003/07/2024 TSH+F REE T4 T4,free(dire ct) 0.77 NG/dL 0.82-1 .77 below low normal Not Available [facility] ([facility]) [address] [facility], [place], [address], 03/14/2024 18:37:18 03/06/20 24 03/07/2024 CBC WITH DIFFE RENTI AL/PL ATELE T WBC 5.0 x10e3 /uL 3.4-10 .8 normal Not Available [facility] ([facility]) [address] [facility], [place], [address], 03/14/2024 18:37:18 03/06/2003/07/2024 CBC WITH DIFFE RENTI AL/PL ATELE T RBC 4.62 x10e6 /uL 3.77-5 .28 normal Not Available [facility] ([facility]) [address] [place], [address], 03/14/2024 18:37:18 03/06/2003/07/2024 CBC WITH DIFFE RENTI AL/PL ATELE T hemoglobin 14.1 g/dL 11.1-1 5.9 normal Not Available [facility] ([facility]) [address] [place], [address], 03/14/2024 18:37:18 03/06/2003/07/2024 CBC WITH DIFFE RENTI AL/PL ATELE T hematocrit 44.3 % 34.0-4 6.6 normal Not Available [facility] ([facility]) [address] [place], [address], 03/14/2024 18:37:18 03/06/20 24 03/07/2024 CBC WITH DIFFE RENTI AL/PL ATELE T MCV 96 fL 79-97 normal Not Available [facility] ([facility]) [address] [place], [address], 03/14/2024 18:37:18 03/06/20 24 03/07/2024 CBC WITH DIFFE RENTI AL/PL ATELE T MCH 30.5 pg 26.6-3 3.0 normal Not Available [facility] ([facility]) [address] [place], [address], 03/14/2024 18:37:18 03/06/20 24 03/07/2024 CBC WITH DIFFE RENTI AL/PL ATELE T MCHC 31.8 g/dL 31.5-3 5.7 normal Not Available [facility] ([facility]) [address] [place], [address], 03/14/2024 18:37:18 03/06/20 24 03/07/2024 CBC WITH DIFFE RENTI AL/PL ATELE T RDW 12.4 % 11.7-1 5.4 Not Available [facility] ([facility]) [address] [place], [address], 03/14/2024 18:37:18 03/06/20 24 03/07/2024 CBC WITH DIFFE RENTI AL/PL ATELE T platelets 232 x10e3 /uL 150-45 0 normal Not Available [facility] ([facility]) [address] [place], [address], 03/14/2024 18:37:18 03/06/20 24 03/07/2024 CBC WITH DIFFE RENTI AL/PL ATELE T neutrophils 53 % not estab. normal Not Available [facility] ([facility]) [address] [place], [address], 03/14/2024 18:37:18 03/06/20 24 03/07/2024 CBC WITH DIFFE RENTI AL/PL ATELE T lymphs 29 % not estab. normal Not Available [facility] ([facility]) [address] [facility], [place], [address], 03/14/2024 18:37:18 03/06/20 24 03/07/2024 CBC WITH DIFFE RENTI AL/PL ATELE T monocytes 12 % not estab. normal Not Available [facility] ([facility]) [address] [facility], [place], [address], 03/14/2024 18:37:18 03/06/20 24 03/07/2024 CBC WITH DIFFE RENTI AL/PL ATELE T eos 5 % not estab. normal Not Available [facility] ([facility]) [address] [facility], [place], [address], 03/14/2024 18:37:18 03/06/20 24 03/07/2024 CBC WITH DIFFE RENTI AL/PL ATELE T basos 1 % not estab. normal Not Available [facility] ([facility]) [address] [place], [address], 03/14/2024 18:37:18 03/06/20 24 03/07/2024 CBC WITH DIFFE RENTI AL/PL ATELE T immature cells MOLDER TRIMMER Not Available [facility] ([facility]) [address] [place], [address], 03/14/2024 18:37:18 03/06/20 24 03/07/2024 CBC WITH DIFFE RENTI AL/PL ATELE T neutrophils (absolute) 2.6 x10e3 /uL 1.4-7. 0 normal Not Available [facility] ([facility]) [address] [place], [address], 03/14/2024 18:37:18 03/06/20 24 03/07/2024 CBC WITH DIFFE RENTI AL/PL ATELE T lymphs (absolute) 1.5 x10e3 /uL 0.7-3. 1 normal Not Available [facility] ([facility]) [address] [facility], [place], [address], 03/14/2024 18:37:18 03/06/20 24 03/07/2024 CBC WITH DIFFE RENTI AL/PL ATELE T monocytes(ab solute) 0.6 x10e3 /uL 0.1-0. 9 normal Not Available [facility] ([facility]) [address] [facility], [place], [address], 03/14/2024 18:37:18 03/06/20 24 03/07/2024 CBC WITH DIFFE RENTI AL/PL ATELE T eos (absolute) 0.3 x10e3 /uL 0.0-0. 4 normal Not Available [facility] ([facility]) [address] [facility], [place], [address], 03/14/2024 18:37:18 03/06/20 24 03/07/2024 CBC WITH DIFFE RENTI AL/PL ATELE T baso (absolute) 0.1 x10e3 /uL 0.0-0. 2 normal Not Available [facility] ([facility]) [address] [facility], [place], [address], 03/14/2024 18:37:18 03/06/20 24 03/07/2024 CBC WITH DIFFE RENTI AL/PL ATELE T immature granulocytes 0 % not estab. Not Available [facility] ([facility]) [address] [facility], [place], [address], 03/14/2024 18:37:18 03/06/20 24 03/07/2024 CBC WITH DIFFE RENTI AL/PL ATELE T immature grans (abs) 0.0 x10e3 /uL 0.0-0. 1 Not Available [facility] ([facility]) [address] [facility], [place], [address], 03/14/2024 18:37:18 03/06/20 24 03/07/2024 CBC WITH DIFFE RENTI AL/PL ATELE T NRBC MOLDER TRIMMER Not Available [facility] ([facility]) [address] [facility], [place], [address], 03/14/2024 18:37:18 03/06/20 24 03/07/2024 CBC WITH DIFFE RENTI AL/PL ATELE T hematology comments: MOLDER TRIMMER Not Available [facility] ([facility]) [address] [facility], [place], [address], 03/14/2024 18:37:18 03/06/20 24 03/07/2024 COMP. METAB OLIC PANEL (14) glucose 93 mg/dL 70-99 normal Not Available [facility] ([facility]) [address] [facility] [place], [address], 03/14/2024 18:37:19 03/06/20 24 03/07/2024 COMP. METAB OLIC PANEL (14) BUN 32 mg/dL 8-27 above high normal Not Available [facility] ([facility]) [address] [facility], [place], [address], 03/14/2024 18:37:19 03/06/20 24 03/07/2024 COMP. METAB OLIC PANEL (14) creatinine 0.91 mg/dL 0.57-1 .00 normal Not Available [facility] ([facility]) [address] [facility] [place], [address], 03/14/2024 18:37:19 03/06/20 24 03/07/2024 COMP. METAB OLIC PANEL (14) eGFR 70 mL/mi n/1.7 3 >59 normal Not Available [facility] ([facility]) [address] [facility] [place], [address], 03/14/2024 18:37:19 03/06/20 24 03/07/2024 COMP. METAB OLIC PANEL (14) BUN/creatini ne ratio 35 12-28 above high normal Not Available [facility] ([facility]) [address] [facility] [place], [address], 03/14/2024 18:37:19 03/06/20 24 03/07/2024 COMP. METAB OLIC PANEL (14) sodium 138 mmol/ L 134-14 4 normal Not Available [facility] ([facility]) [address] [place], [address], 03/14/2024 18:37:19 03/06/20 24 03/07/2024 COMP. METAB OLIC PANEL (14) potassium 4.2 mmol/ L 3.5-5. 2 normal Not Available [facility] ([facility]) [address] [place], [address], 03/14/2024 18:37:19 03/06/20 24 03/07/2024 COMP. METAB OLIC PANEL (14) chloride 101 mmol/ L 96-106 normal Not Available [facility] ([facility]) [address] [place], [address], 03/14/2024 18:37:19 03/06/20 24 03/07/2024 COMP. METAB OLIC PANEL (14) carbon dioxide, total 24 mmol/ L 20-29 normal Not Available [facility] ([facility]) [address] [place], [address], 03/14/2024 18:37:19 03/06/20 24 03/07/2024 COMP. METAB OLIC PANEL (14) calcium 9.4 mg/dL 8.7-10 .3 normal Not Available [facility] ([facility]) [address] [place] [place], [address], 03/14/2024 18:37:19 03/06/20 24 03/07/2024 COMP. METAB OLIC PANEL (14) protein, total 6.3 g/dL 6.0-8. 5 normal Not Available [facility] ([facility]) [address] [facility] [place], [address], 03/14/2024 18:37:19 03/06/20 24 03/07/2024 COMP. METAB OLIC PANEL (14) albumin 4.1 g/dL 3.9-4. 9 normal Not Available [facility] ([facility]) [address] [facility] [place], [address], 03/14/2024 18:37:19 03/06/20 24 03/07/2024 COMP. METAB OLIC PANEL (14) globulin, total 2.2 g/dL 1.5-4. 5 Not Available [facility] ([facility]) [address] [facility] [place], [address], 03/14/2024 18:37:19 03/06/20 24 03/07/2024 COMP. METAB OLIC PANEL (14) bilirubin, total 0.3 mg/dL 0.0-1. 2 normal Not Available [facility] ([facility]) [address] [facility] [place], [address], 03/14/2024 18:37:19 03/06/20 24 03/07/2024 COMP. METAB OLIC PANEL (14) alkaline phosphatase 80 IU/L 44-121 normal Not Available [facility] ([facility]) [address] [facility] [place], [address], 03/14/2024 18:37:19 03/06/20 24 03/07/2024 COMP. METAB OLIC PANEL (14) AST (SGOT) 47 IU/L 0-40 above high normal Not Available [facility] ([facility]) [address] [facility] [place], [address], 03/14/2024 18:37:19 03/06/20 24 03/07/2024 COMP. METAB OLIC PANEL (14) ALT (SGPT) 58 IU/L 0-32 above high normal Not Available [facility] ([facility]) [address] [facility] [place], [address], 03/14/2024 18:37:19 03/06/20 24 03/07/2024 LIPID PANEL cholesterol, total 119 mg/dL 100-19 9 normal Not Available [facility] ([facility]) [address] [facility], [place], [address], 03/14/2024 18:37:19 03/06/20 24 03/07/2024 LIPID PANEL triglyceride s 75 mg/dL 0-149 normal Not Available [facility] ([facility]) [address] [facility], [place], [address], 03/14/2024 18:37:19 03/06/20 24 03/07/2024 LIPID PANEL HDL cholesterol 51 mg/dL >39 normal Not Available [facility] ([facility]) [address] [facility], [place], [address], 03/14/2024 18:37:19 03/06/20 24 03/07/2024 LIPID PANEL VLDL cholesterol apurva 15 mg/dL 5-40 Not Available [facility] ([facility]) [address] [facility], [place], [address], 03/14/2024 18:37:19 03/06/20 24 03/07/2024 LIPID PANEL LDL chol calc ([facility]) 53 mg/dL 0-99 Not Available [facility] ([facility]) [address] [place], [address], 03/14/2024 18:37:19 03/06/20 24 03/07/2024 LIPID PANEL LDL calc comment: MOLDER TRIMMER Not Available [facility] ([facility]) [address] [place], [address], 03/14/2024 18:37:19 03/06/20 24 03/14/2024 VITAM IN E vitamin E(alpha tocopherol) 12.2 mg/L 9.0-29 .0 Not Available [facility] ([facility]) [address] [place], [address], 03/14/2024 18:37:20 03/06/2003/14/2024 VITAM IN E vitamin [...] in E defic ient. Not Available [facility] ([facility]) [address] [facility], [place], [address], 03/14/2024 18:37:20 03/06/2003/07/2024 HEMOG LOBIN A1C hemoglobin A1C 5.4 % 4.8-5. 6 normal Predi abete s: 5.7 - 6.4 Diabe inessa: >6.4 Glyce amauri contr ol for adult s with diabe inessa: <7.0 Not Available [facility] ([facility]) [address] [facility], [place], [address], 03/14/2024 18:37:20 03/06/2003/07/2024 FOLAT E (FOLI C ACID) , SERUM folate (folic acid), serum >20.0 NG/mL >3.0 A serum folat e yanet ntrat ion of less than 3.1 ng/mL is consi dered to repre sent clini apurva defic iency . Not Available [facility] ([facility]) [address] [facility], [place], [address], 03/14/2024 18:37:21 03/06/2003/14/2024 VITAM IN A, SERUM [...] Drug Admin istra tion. Not Available [facility] ([facility]) [address] [facility], [place], [address], 03/14/2024 18:37:21 03/06/20 24 03/07/2024 VITAM IN [...] um and D. Joanna roque [place]: [facility] . 2. Junie lugo [place], Garrick wallace [place], Valeria off-F christen i TURCIOS, et al. Evalu ation , treat ment, and preve ntion of vitam in D defic iency : an Endoc rine Socie ty clini apurva pract ice guide line. JCEM. 2010; 96(7) :1911 -30. Not Available [facility] ([facility]) [address] [facility], [place], [address], 03/14/2024 18:37:21 03/06/20 24 03/12/2024 VITAM IN B1 (THIA MINE) , BLOOD vit. B1, whole blood 290.9 nmol/ L 66.5-2 00.0 above high normal Not Available [facility] ([facility]) [address] [facility], [place], [address], 03/14/2024 18:37:22 03/06/20 24 03/12/2024 METHY LMALO ALICIA ACID, SERUM methylmaloni c acid, serum 360 nmol/ L 0-378 Not Available [facility] ([facility]) [address] [facility], [place], [address], 03/14/2024 18:37:22 03/06/20 24 03/08/2024 COPPE R, SERUM OR PLASM A copper, serum or plasma 117 ug/dL 80-158 Detec tion Limit = 5 Not Available [facility] ([facility]) [address] [facility], [place], [address], 03/14/2024 18:37:23 03/06/20 24 03/08/2024 ZINC, PLASM A OR SERUM zinc, plasma or serum 87 ug/dL 44-115 normal Detec tion Limit = 5 Not Available [facility] ([facility]) [address] [facility], [place], [address], 03/14/2024 18:37:23 03/06/20 24 03/07/2024 PREAL BUMIN prealbumin 20 mg/dL 10-36 Not Available [facility] ([facility]) [address] [facility], [place], [address], 03/14/2024 18:37:23 03/06/20 24 03/08/2024 SELEN IUM, BLOOD selenium, blood 168 ug/L 100-34 0 Detec tion Limit = 10 Not Available [facility] ([facility]) [address] [facility], [place], [address], 03/14/2024 18:37:24 07/15/19 25 07/15/2024 CBC NO DIFF (HEMO GRAM) WBC 5.9 K/uL 4.0-10 .5 Not Available [facility] ([facility]) [address], [place], [address], 07/15/2024 09:51:52 07/15/19 25 07/15/2024 CBC NO DIFF (HEMO GRAM) RBC 5.0 M/mm3 4.2-6. 4 Not Available [facility] ([facility]) [address], [place], [address], 07/15/2024 09:51:52 07/15/19 25 07/15/2024 CBC NO DIFF (HEMO GRAM) HGB 14.8 gm/dL 12.5-1 6.0 Not Available [facility] ([facility]) [address], [place], [address], 07/15/2024 09:51:52 07/15/19 25 07/15/2024 CBC NO DIFF (HEMO GRAM) HCT 44.8 % 37.0-4 7.0 Not Available [facility] ([facility]) [address], [place], [address], 07/15/2024 09:51:52 07/15/19 25 07/15/2024 CBC NO DIFF (HEMO GRAM) MCV 89.4 fL 78-100 Not Available [facility] ([facility]) [address] [facility], [place], [address], 07/15/2024 09:51:52 07/15/19 25 07/15/2024 CBC NO DIFF (HEMO GRAM) MCH 29.5 pg 27-31 Not Available [facility] ([facility]) [address] [facility], [place], [address], 07/15/2024 09:51:52 07/15/19 25 07/15/2024 CBC NO DIFF (HEMO GRAM) MCHC 33.0 g/dL 32-36 Not Available [facility] ([facility]) [address] [place], [address], 07/15/2024 09:51:52 07/15/19 25 07/15/2024 CBC NO DIFF (HEMO GRAM) RDW 14.9 % 11.5-1 4.0 high Not Available [facility] ([facility]) [address] , [place], [address], 07/15/2024 09:51:52 07/15/19 25 07/15/2024 CBC NO DIFF (HEMO GRAM) platelet count 233 K/uL 150-45 0 Not Available [facility] ([facility]) [address] , [place], [address], 07/15/2024 09:51:52 07/15/19 25 07/15/2024 CBC NO DIFF (HEMO GRAM) MPV 8.9 fL 6-9.5 Not Available [facility] ([facility]) [address] , [place], [address], 07/15/2024 09:51:52 07/15/19 25 07/15/2024 CBC NO DIFF (HEMO GRAM) manual differential NO Not Available [facility] ([facility]) [address] , [place], [address], 07/15/2024 09:51:52 07/15/1907/15/2024 PT (PROT HROMB IN TIME) W INR prothrombin time 10.4 secon ds 9.3-11 .4 Not Available [facility] ([facility]) [address] , [place], [address], 07/15/2024 10:13:39 07/15/1907/15/2024 PT (PROT HROMB IN [...] Mecha nical Heart Valve s Not Available [facility] ([facility]) [address] , [place], [address], 07/15/2024 10:13:39 07/15/19 25 07/15/2024 COMP METAB OLIC PANEL sodium 136 mmol/ L 136-14 5 Not Available [facility] ([facility]) [address] , [place], [address], 07/15/2024 10:18:53 07/15/19 25 07/15/2024 COMP METAB OLIC PANEL potassium 4.6 mmol/ L 3.6-5. 0 Not Available [facility] ([facility]) [address] , [place], [address], 07/15/2024 10:18:53 07/15/19 25 07/15/2024 COMP METAB OLIC PANEL chloride 101 mmol/ L 98-107 Not Available [facility] ([facility]) [address] , [place], [address], 07/15/2024 10:18:53 07/15/19 25 07/15/2024 COMP METAB OLIC PANEL carbon dioxide 29.4 mmol/ L 21.0-3 2.0 Not Available [facility] ([facility]) [address] , [place], [address], 07/15/2024 10:18:53 07/15/19 25 07/15/2024 COMP METAB OLIC PANEL anion gap 10.2 Not Available [facility] ([facility]) [address] , [place], [address], 07/15/2024 10:18:53 07/15/19 25 07/15/2024 COMP METAB OLIC PANEL glucose 98 mg/dL 70-120 Not Available [facility] ([facility]) [address] , [place], [address], 07/15/2024 10:18:53 07/15/19 25 07/15/2024 COMP METAB OLIC PANEL BUN 31 mg/dL 7-18 high Not Available [facility] ([facility]) [address], [place], [address], 07/15/2024 10:18:53 07/15/19 25 07/15/2024 COMP METAB OLIC PANEL creatinine 0.9 mg/dL 0.6-1. 3 Not Available [facility] ([facility]) [address], [place], [address], 07/15/2024 10:18:53 07/15/19 25 07/15/2024 COMP METAB [...] romero ing kiney funct ion. Not Available [facility] ([facility]) [address], [place], [address], 07/15/2024 10:18:53 07/15/19 25 07/15/2024 COMP METAB OLIC PANEL total protein 7.4 g/dL 6.4-8. 2 Not Available [facility] ([facility]) [address], [place], [address], 07/15/2024 10:18:53 07/15/19 25 07/15/2024 COMP METAB OLIC PANEL albumin 3.9 g/dL 3.4-5. 0 Not Available [facility] ([facility]) [address], [place], [address], 07/15/2024 10:18:53 07/15/19 25 07/15/2024 COMP METAB OLIC PANEL globulin 3.5 Not Available [facility] ([facility]) [address], [place], [address], 07/15/2024 10:18:53 07/15/19 25 07/15/2024 COMP METAB OLIC PANEL alb/glob ratio 1.1 0.7-2 Not Available [facility] ([facility]) [address], [place], [address], 07/15/2024 10:18:53 07/15/19 25 07/15/2024 COMP METAB OLIC PANEL calcium 9.4 mg/dL 8.5-10 .5 Not Available [facility] ([facility]) [address], [place], [address], 07/15/2024 10:18:53 07/15/19 25 07/15/2024 COMP METAB OLIC PANEL bilirubin total 0.60 mg/dL 0.10-1 .00 Not Available [facility] ([facility]) [address] , [place], [address], 07/15/2024 10:18:53 07/15/19 25 07/15/2024 COMP METAB OLIC PANEL AST (SGOT) 38 U/L 0-37 high Not Available [facility] ([facility]) [address] , [place], [address], 07/15/2024 10:18:53 07/15/19 25 07/15/2024 COMP METAB OLIC PANEL ALT (SGPT) 66 U/L 0-65 high Not Available [facility] ([facility]) [address] , [place], [address], 07/15/2024 10:18:53 07/15/19 25 07/15/2024 COMP METAB OLIC PANEL alk phosphatase 83 U/L 46-116 Not Available [facility] ([facility]) [address] , [place], [address], 07/15/2024 10:18:53 07/15/19 25 07/18/2024 CISNEROS FIBRO SURE PLUS alpha 2-macroglobu oralia, qn 266 mg/dL 110-27 6 Not Available [facility] ([facility]) [address] [place], [address], 07/18/2024 06:10:53 07/15/19 25 07/18/2024 CISNEROS FIBRO SURE PLUS haptoglobin 88 mg/dL 37-355 Not Available [facility] ([facility]) [address] [facility], [place], [address], 07/18/2024 06:10:53 07/15/19 25 07/18/2024 CISNEROS FIBRO SURE PLUS apolipoprote in A-1 167 mg/dL 116-20 9 Not Available [facility] ([facility]) [address] [facility], [place], [address], 07/18/2024 06:10:53 07/15/19 25 07/18/2024 CISNEROS FIBRO SURE PLUS bilirubin, total 0.4 mg/dL 0.0-1. 2 Not Available [facility] ([facility]) [address] [place], [address], 07/18/2024 06:10:53 07/15/19 25 07/18/2024 CISNEROS FIBRO SURE PLUS GGT 32 IU/L 0-60 Not Available [facility] ([facility]) [address] [place], [address], 07/18/2024 06:10:53 07/15/19 25 07/18/2024 CISNEROS FIBRO SURE PLUS ALT (SGPT) p5p 63 IU/L 0-40 high Not Available [facility] ([facility]) [address] [place], [address], 07/18/2024 06:10:53 07/15/19 25 07/18/2024 CISNEROS FIBRO SURE PLUS AST (SGOT) p5p 42 IU/L 0-40 high Not Available [facility] ([facility]) [address] [place], [address], 07/18/2024 06:10:53 07/15/19 25 07/18/2024 CISNEROS FIBRO SURE PLUS cholesterol, total 122 mg/dL 100-19 9 Not Available [facility] ([facility]) [address] , [place], [address], 07/18/2024 06:10:53 07/15/19 25 07/18/2024 CISNEROS FIBRO SURE PLUS glucose, serum 102 mg/dL 70-99 high Not Available [facility] ([facility]) [address] , [place], [address], 07/18/2024 06:10:53 07/15/19 25 07/18/2024 CISNEROS FIBRO SURE PLUS triglyceride s 99 mg/dL 0-149 Not Available [facility] ([facility]) [address] , [place], [address], 07/18/2024 06:10:53 07/15/19 25 07/18/2024 CISNEROS FIBRO [...] Stage F4 - Cirrh osis Not Available [facility] ([facility]) [address] , [place], [address], 07/18/2024 06:10:53 07/15/19 25 07/18/2024 CISNEROS FIBRO SURE PLUS fibrosis stage F1-F2 Not Available [facility] ([facility]) [address] , [place], [address], 07/18/2024 06:10:53 07/15/19 25 07/18/2024 CISNEROS FIBRO SURE PLUS fibrosis score 0.34 0.00-0 .21 high Not Available [facility] ([facility]) [address] [place], [address], 07/18/2024 06:10:53 07/15/19 25 07/18/2024 CISNEROS FIBRO SURE PLUS steatosis score 0.48 0.00-0 .40 high Not Available [facility] ([facility]) [address] [place], [address], 07/18/2024 06:10:53 07/15/1907/18/2024 CISNEROS FIBRO SURE PLUS steatosis grade Commen t S1 - Mild Steat osis (But Clini zuleyka Signi fican t) (5- 33%) Not Available [facility] ([facility]) [address] [place], [address], 07/18/2024 06:10:53 07/15/19 25 07/18/2024 CISNEROS FIBRO SURE PLUS steatosis scoring Commen t . <=0.4 0 = S0 - No Steat osis (<5%) 0.40 - 0.55 = S1 - Mild Steat osis (but Clini zuleyka Signi fican t) (5-33 %) >0.55 = S2S3- Moder ate to Sever e Steat osis (Clin icall y Signi fican t) (34-1 00%) Not Available [facility] ([facility]) [address] [place], [address], 07/18/2024 06:10:53 07/15/19 25 07/18/2024 CISNEROS FIBRO SURE PLUS cisneros scoring Commen t . <=0.2 5 = N0 - No CISNEROS/ MASH 0.25 - 0.50 = N1 - Mild CISNEROS/ MASH 0.50 - 0.75 = N2 - Moder ate CISNEROS/ MASH >0.75 = N3 - Sever e CISNEROS/ MASH Not Available [facility] ([facility]) [address] [place], [address], 07/18/2024 06:10:53 07/15/19 25 07/18/2024 CISNEROS FIBRO SURE PLUS cisneros grade Commvince t N3 - Sever e CISNEROS Not Available [facility] ([facility]) [address], [place], [address], 07/18/2024 06:10:53 07/15/19 25 07/18/2024 CISNEROS FIBRO SURE PLUS cisneros score 0.79 0.00-0 .25 high Not Available [facility] ([facility]) [address], [place], [address], 07/18/2024 06:10:53 07/15/19 25 07/18/2024 CISNEROS FIBRO [...] ction s of fibro sis. Not Available [facility] ([facility]) [address], [place], [address], 07/18/2024 06:10:53 07/15/19 25 07/18/2024 CISNEROS FIBRO SURE PLUS methodology: Wanda Grossman The sachi inessa teste d are perfo rmed by [facility]- Speci fic metho ds. Not inten ded for use with other diagn ostic consi derat ions. Not Available [facility] ([facility]) [address], [place], [address], 07/18/2024 06:10:53 07/15/19 25 07/18/2024 CISNEROS FIBRO SURE PLUS interpretati on: Commen t . Quant itati ve resul ts of 10 bioch emica ls in combi natio n with age and gende r, are sachi zed using a compu tatio nal algor ithm to provi de a quant itati ve surro gate marke r (0.0- 1.0) of liver fibro sis ([place] vir F0-F4 ), hepat ic steat osis [...] fican t NAFLD /MASL D fibro sis ([place] vir F2-F4 ) and 11% had cirrh [...] ficit y of 71%. 3 Not Available [facility] ([facility]) [address], [place], [address], 07/18/2024 06:10:53 07/15/19 25 07/18/2024 ICSNEROS FIBRO SURE PLUS comment: Commvince t . This test was devel oped and its perfo rmanc e ayesha cteri stics deter mined by [facility]. It has not been clear ed or appro viki by the Food and Drug Admin istra tion. . For quest ions regar ding this repor t pleas e conta ct custo lester servi ce at [phone]. . Refer ences : . 1. Vito [...] . Perfo rmed at: - [facility] [address] [place] [address] Lab Direc tor: Massiel ross MD, Phone : [phone] Not Available [facility] ([facility]) [address], [place], [address], 07/18/2024 06:10:53 12/09/19 25 12/09/2024 FE+TI BC+FE R iron bind.cap.(TI BC) 336 ug/dL 250-45 0 normal Not Available [facility] ([facility]) [address] [place], [address], 12/15/2024 14:37:18 12/09/19 25 12/09/2024 FE+TI BC+FE R UIBC 214 ug/dL 118-36 9 normal Not Available [facility] ([facility]) [address] [place], [address], 12/15/2024 14:37:18 12/09/19 25 12/09/2024 FE+TI BC+FE R iron 122 ug/dL 27-139 normal Not Available [facility] ([facility]) [address] [place], [address], 12/15/2024 14:37:18 12/09/19 25 12/09/2024 FE+TI BC+FE R iron saturation 36 % 15-55 normal Not Available [facility] ([facility]) [address] [place], [address], 12/15/2024 14:37:18 12/09/19 25 12/09/2024 FE+TI BC+FE R ferritin 31 NG/mL 15-150 normal Not Available [facility] ([facility]) [address] [place], [address], 12/15/2024 14:37:18 12/09/19 25 12/09/2024 TSH+F REE T4 TSH 2.100 uIU/m L 0.450- 4.500 normal Not Available [facility] ([facility]) [address] [place], [address], 12/15/2024 14:37:19 12/09/19 25 12/09/2024 TSH+F REE T4 T4,free(dire ct) 0.83 NG/dL 0.82-1 .77 normal Not Available [facility] ([facility]) [address] [place], [address], 12/15/2024 14:37:19 12/09/19 25 12/08/2024 CBC WITH DIFFE RENTI AL/PL ATELE T WBC 6.1 x10e3 /uL 3.4-10 .8 normal Not Available [facility] ([facility]) [address] [place], [address], 12/15/2024 14:37:20 12/09/19 25 12/08/2024 CBC WITH DIFFE RENTI AL/PL ATELE T RBC 4.92 x10e6 /uL 3.77-5 .28 normal Not Available [facility] ([facility]) [address] [place], [address], 12/15/2024 14:37:20 12/09/19 25 12/08/2024 CBC WITH DIFFE RENTI AL/PL ATELE T hemoglobin 14.9 g/dL 11.1-1 5.9 normal Not Available [facility] ([facility]) [address] [place], [address], 12/15/2024 14:37:20 12/09/19 25 12/08/2024 CBC WITH DIFFE RENTI AL/PL ATELE T hematocrit 45.6 % 34.0-4 6.6 normal Not Available [facility] ([facility]) [address] [place], [address], 12/15/2024 14:37:20 12/09/19 25 12/08/2024 CBC WITH DIFFE RENTI AL/PL ATELE T MCV 93 fL 79-97 normal Not Available [facility] ([facility]) [address] [place], [address], 12/15/2024 14:37:20 12/09/19 25 12/08/2024 CBC WITH DIFFE RENTI AL/PL ATELE T MCH 30.3 pg 26.6-3 3.0 normal Not Available [facility] ([facility]) [address] [place], [address], 12/15/2024 14:37:20 12/09/19 25 12/08/2024 CBC WITH DIFFE RENTI AL/PL ATELE T MCHC 32.7 g/dL 31.5-3 5.7 normal Not Available [facility] ([facility]) [address] [facility], [place], [address], 12/15/2024 14:37:20 12/09/19 25 12/08/2024 CBC WITH DIFFE RENTI AL/PL ATELE T RDW 12.5 % 11.7-1 5.4 Not Available [facility] ([facility]) [address] [facility], [place], [address], 12/15/2024 14:37:20 12/09/19 25 12/08/2024 CBC WITH DIFFE RENTI AL/PL ATELE T platelets 234 x10e3 /uL 150-45 0 normal Not Available [facility] ([facility]) [address] [place], [address], 12/15/2024 14:37:20 12/09/19 25 12/08/2024 CBC WITH DIFFE RENTI AL/PL ATELE T neutrophils 56 % not estab. normal Not Available [facility] ([facility]) [address] [place], [address], 12/15/2024 14:37:20 12/09/19 25 12/08/2024 CBC WITH DIFFE RENTI AL/PL ATELE T lymphs 28 % not estab. normal Not Available [facility] ([facility]) [address] [place], [address], 12/15/2024 14:37:20 12/09/19 25 12/08/2024 CBC WITH DIFFE RENTI AL/PL ATELE T monocytes 10 % not estab. normal Not Available [facility] ([facility]) [address] [facility], [place], [address], 12/15/2024 14:37:20 12/09/19 25 12/08/2024 CBC WITH DIFFE RENTI AL/PL ATELE T eos 5 % not estab. normal Not Available [facility] ([facility]) [address] [facility], [place], [address], 12/15/2024 14:37:20 12/09/19 25 12/08/2024 CBC WITH DIFFE RENTI AL/PL ATELE T basos 1 % not estab. normal Not Available [facility] ([facility]) [address] [facility], [place], [address], 12/15/2024 14:37:20 12/09/19 25 12/08/2024 CBC WITH DIFFE RENTI AL/PL ATELE T immature cells MOLDER TRIMMER Not Available [facility] ([facility]) [address] [place], [address], 12/15/2024 14:37:20 12/09/19 25 12/08/2024 CBC WITH DIFFE RENTI AL/PL ATELE T neutrophils (absolute) 3.5 x10e3 /uL 1.4-7. 0 normal Not Available [facility] ([facility]) [address] [place], [address], 12/15/2024 14:37:20 12/09/19 25 12/08/2024 CBC WITH DIFFE RENTI AL/PL ATELE T lymphs (absolute) 1.7 x10e3 /uL 0.7-3. 1 normal Not Available [facility] ([facility]) [address] [place], [address], 12/15/2024 14:37:20 12/09/19 25 12/08/2024 CBC WITH DIFFE RENTI AL/PL ATELE T monocytes(ab solute) 0.6 x10e3 /uL 0.1-0. 9 normal Not Available [facility] ([facility]) [address] [facility], [place], [address], 12/15/2024 14:37:20 12/09/19 25 12/08/2024 CBC WITH DIFFE RENTI AL/PL ATELE T eos (absolute) 0.3 x10e3 /uL 0.0-0. 4 normal Not Available [facility] ([facility]) [address] [facility], [place], [address], 12/15/2024 14:37:20 12/09/19 25 12/08/2024 CBC WITH DIFFE RENTI AL/PL ATELE T baso (absolute) 0.1 x10e3 /uL 0.0-0. 2 normal Not Available [facility] ([facility]) [address] [facility], [place], [address], 12/15/2024 14:37:20 12/09/19 25 12/08/2024 CBC WITH DIFFE RENTI AL/PL ATELE T immature granulocytes 0 % not estab. Not Available [facility] ([facility]) [address] [place], [address], 12/15/2024 14:37:20 12/09/19 25 12/08/2024 CBC WITH DIFFE RENTI AL/PL ATELE T immature grans (abs) 0.0 x10e3 /uL 0.0-0. 1 Not Available [facility] ([facility]) [address] [place], [address], 12/15/2024 14:37:20 12/09/19 25 12/08/2024 CBC WITH DIFFE RENTI AL/PL ATELE T NRBC MOLDER TRIMMER Not Available [facility] ([facility]) [address] [place], [address], 12/15/2024 14:37:20 12/09/19 25 12/08/2024 CBC WITH DIFFE RENTI AL/PL ATELE T hematology comments: MOLDER TRIMMER Not Available [facility] ([facility]) [address] [facility], [place], [address], 12/15/2024 14:37:20 12/09/19 25 12/09/2024 COMP. METAB OLIC PANEL (14) glucose 91 mg/dL 70-99 normal Not Available [facility] ([facility]) [address] [facility] [place], [address], 12/15/2024 14:37:21 12/09/19 25 12/09/2024 COMP. METAB OLIC PANEL (14) BUN 33 mg/dL 8-27 above high normal Not Available [facility] ([facility]) [address] [facility] [place], [address], 12/15/2024 14:37:21 12/09/19 25 12/09/2024 COMP. METAB OLIC PANEL (14) creatinine 0.86 mg/dL 0.57-1 .00 normal Not Available [facility] ([facility]) [address] [facility], [place], [address], 12/15/2024 14:37:21 12/09/19 25 12/09/2024 COMP. METAB OLIC PANEL (14) eGFR 74 mL/mi n/1.7 3 >59 normal Not Available [facility] ([facility]) [address] [place], [address], 12/15/2024 14:37:21 12/09/19 25 12/09/2024 COMP. METAB OLIC PANEL (14) BUN/creatini ne ratio 38 12-28 above high normal Not Available [facility] ([facility]) [address] [place], [address], 12/15/2024 14:37:21 12/09/19 25 12/09/2024 COMP. METAB OLIC PANEL (14) sodium 139 mmol/ L 134-14 4 normal Not Available [facility] ([facility]) [address] [place], [address], 12/15/2024 14:37:21 12/09/19 25 12/09/2024 COMP. METAB OLIC PANEL (14) potassium 4.4 mmol/ L 3.5-5. 2 normal Not Available [facility] ([facility]) [address] [facility] [place], [address], 12/15/2024 14:37:21 12/09/19 25 12/09/2024 COMP. METAB OLIC PANEL (14) chloride 104 mmol/ L 96-106 normal Not Available [facility] ([facility]) [address] [facility] [place], [address], 12/15/2024 14:37:21 12/09/19 25 12/09/2024 COMP. METAB OLIC PANEL (14) carbon dioxide, total 21 mmol/ L 20-29 normal Not Available [facility] ([facility]) [address] [facility] [place], [address], 12/15/2024 14:37:21 12/09/19 25 12/09/2024 COMP. METAB OLIC PANEL (14) calcium 9.4 mg/dL 8.7-10 .3 normal Not Available [facility] ([facility]) [address] [facility] [place], [address], 12/15/2024 14:37:21 12/09/19 25 12/09/2024 COMP. METAB OLIC PANEL (14) protein, total 6.5 g/dL 6.0-8. 5 normal Not Available [facility] ([facility]) [address] [facility] [place], [address], 12/15/2024 14:37:21 12/09/19 25 12/09/2024 COMP. METAB OLIC PANEL (14) albumin 4.2 g/dL 3.9-4. 9 normal Not Available [facility] ([facility]) [address] [facility] [place], [address], 12/15/2024 14:37:21 12/09/19 25 12/09/2024 COMP. METAB OLIC PANEL (14) globulin, total 2.3 g/dL 1.5-4. 5 Not Available [facility] ([facility]) [address] [facility] [place], [address], 12/15/2024 14:37:21 12/09/19 25 12/09/2024 COMP. METAB OLIC PANEL (14) bilirubin, total 0.4 mg/dL 0.0-1. 2 normal Not Available [facility] ([facility]) [address] [facility] [place], [address], 12/15/2024 14:37:21 12/09/19 25 12/09/2024 COMP. METAB OLIC PANEL (14) alkaline phosphatase 87 IU/L 44-121 normal Not Available [facility] ([facility]) [address] [facility] [place], [address], 12/15/2024 14:37:21 12/09/19 25 12/09/2024 COMP. METAB OLIC PANEL (14) AST (SGOT) 62 IU/L 0-40 above high normal Not Available [facility] ([facility]) [address] [facility] [place], [address], 12/15/2024 14:37:21 12/09/19 25 12/09/2024 COMP. METAB OLIC PANEL (14) ALT (SGPT) 89 IU/L 0-32 above high normal Not Available [facility] ([facility]) [address] [facility] [place], [address], 12/15/2024 14:37:21 12/09/19 25 12/09/2024 LIPID PANEL cholesterol, total 117 mg/dL 100-19 9 normal Not Available [facility] ([facility]) [address] [facility] [place], [address], 12/15/2024 14:37:22 12/09/19 25 12/09/2024 LIPID PANEL triglyceride s 69 mg/dL 0-149 normal Not Available [facility] ([facility]) [address] [place], [address], 12/15/2024 14:37:22 12/09/19 25 12/09/2024 LIPID PANEL HDL cholesterol 59 mg/dL >39 normal Not Available [facility] ([facility]) [address] [place], [address], 12/15/2024 14:37:22 12/09/19 25 12/09/2024 LIPID PANEL VLDL cholesterol apurva 14 mg/dL 5-40 Not Available [facility] ([facility]) [address] [place], [address], 12/15/2024 14:37:22 12/09/19 25 12/09/2024 LIPID PANEL LDL chol calc ([facility]) 44 mg/dL 0-99 Not Available [facility] ([facility]) [address] [place], [address], 12/15/2024 14:37:22 12/09/19 25 12/09/2024 LIPID PANEL LDL calc comment: MOLDER TRIMMER Not Available [facility] ([facility]) [address] [place], [address], 12/15/2024 14:37:22 12/09/19 25 12/15/2024 VITAM IN E vitamin E(alpha tocopherol) 13.1 mg/L 9.0-29 .0 Not Available [facility] ([facility]) [address] [place], [address], 12/15/2024 14:37:23 12/09/19 25 12/15/2024 VITAM IN [...] in E defic ient. Not Available [facility] ([facility]) [address] [facility], [place], [address], 12/15/2024 14:37:23 12/09/19 25 12/09/2024 HEMOG LOBIN A1C hemoglobin A1C 5.5 % 4.8-5. 6 normal Predi abete s: 5.7 - 6.4 Diabe inessa: >6.4 Glyce amauri contr ol for adult s with diabe inessa: <7.0 Not Available [facility] ([facility]) [address] [facility], [place], [address], 12/15/2024 14:37:24 12/09/19 25 12/09/2024 FOLAT E (FOLI C ACID) , SERUM folate (folic acid), serum >20.0 NG/mL >3.0 A serum folat e yanet ntrat ion of less than 3.1 ng/mL is consi dered to repre sent clini apurva defic iency . Not Available [facility] ([facility]) [address] [facility], [place], [address], 12/15/2024 14:37:24 12/09/19 25 12/15/2024 VITAM IN [...] Drug Admin istra tion. Not Available [facility] ([facility]) [address] [facility], [place], [address], 12/15/2024 14:37:25 12/09/19 25 12/09/2024 VITAM IN [...] um and D. Joanna roque [place]: [facility] . 2. Junie lugo MF, Garrick wallace [place], Valeria off-F aminaar i TURCIOS, et al. Evalu ation , treat ment, and preve ntion of vitam in D defic iency : an Endoc rine Socie ty clini apurva pract ice guide line. JCEM. 2010; 96(7) :1911 -30. Not Available [facility] ([facility]) [address] [place], [address], 12/15/2024 14:37:26 12/09/19 25 12/14/2024 VITAM IN B1 (THIA MINE) , BLOOD vit. B1, whole blood 324.9 nmol/ L 66.5-2 00.0 above high normal Not Available [facility] ([facility]) [address] [place], [address], 12/15/2024 14:37:27 12/09/19 25 12/13/2024 METHY LMALO ALICIA ACID, SERUM methylmaloni c acid, serum 278 nmol/ L 0-378 Not Available [facility] ([facility]) [address] [place], [address], 12/15/2024 14:37:28 12/09/19 25 12/11/2024 COPPE R, SERUM OR PLASM A copper, serum or plasma 106 ug/dL 80-158 Detec tion Limit = 5 Not Available [facility] [facility] [address] [facility], [place], [address], 12/15/2024 14:37:29 12/09/19 25 12/11/2024 ZINC, PLASM A OR SERUM zinc, plasma or serum 75 ug/dL 44-115 normal Detec tion Limit = 5 Not Available [facility] ([facility]) [address] [facility], [place], [address], 12/15/2024 14:37:30 12/09/19 25 12/09/2024 PREAL BUMIN prealbumin 22 mg/dL 10-36 Not Available [facility] ([facility]) [address] [facility], [place], [address], 12/15/2024 14:37:30 12/09/19 25 12/12/2024 SELEN IUM, BLOOD selenium, blood 155 ug/L 100-34 0 Detec tion Limit = 10 Not Available [facility] ([facility]) [address] [facility], [place], [address], 12/15/2024 14:37:31 Result Notes None recorded. Problems Name Problem SNOMED Code Status Onset Date Resolution Date Notes Provider Name and Address Organization Details Recorded Time Metabolic dysfuncti on-associ ated steatohep atitis 955869183 Active 2023 Ernesto Amezcua PA-C [address] , [place], [address] , [facility] - NT [facility] & [place] 5 14:30:35 Gastroeso phageal reflux disease without esophagit is 475220677 Active 2023 Ernesto Amezcua PA-C [address] , [place], [address] , [place] - [facility] & [place] 4 13:48:57 Chronic idiopathi c constipat ion 59836296 Active 2021 Not Available [facility] 3 16:06:44 Gastroeso phageal reflux disease 250164819 Active 2021 Not Available [facility] 3 16:06:44 Diarrhea 68409220 Active 2021 Not Available [facility] 3 16:06:44 Hypokalem ia 74436345 Active 2021 Not Available [facility] 3 16:06:44 Abdominal pain 89532548 Active 2021 Not Available [facility] 3 16:06:44 Myocardia l infarctio n 68746941 Completed 202103/25/2022 Azeb Quesada null, [place] - [facility] [place] & [place] 2 14:37:03 Fibromyal dominique 511959044 Active 2021 Not Available [facility] 3 16:06:44 Mild dementia 72315547734 4108 Active 2021 Not Available [facility] 3 16:06:44 Chronic obstructi ve pulmonary disease 55815945 Active 2021 Not Available [facility] 3 16:06:44 Hiatal hernia 68756352 Completed 202103/25/2022 Azeb Quesada null, [place] - [facility] [place] & [place] 2 14:38:57 Chronic depressio n 330480518 Active 2021 Not Available [facility] 3 16:06:44 Obesity 904688785 Active 2021 Ernesto Ameczua PA-C [address] [facility], [place], [address] , [place] [facility] [place] & [place] 2 14:51:36 Hypertens silvino disorder 65328822 Active 2022 Not Available [facility] 3 16:06:44 Dyslipide franc 497911993 Active 2022 Not Available [facility] 3 16:06:44 Morbid obesity 847366294 Active 2022 Not Available [facility] 3 16:06:44 Dizziness 916703349 Active 2022 Not Available [facility] 3 16:06:44 Intention al weight loss 452939970 Active 2022 Not Available [facility] 3 16:06:44 Constipat ion 74854072 Active 2022 Ernesto Amezcua PA-C [address], [place], [address] [place] [address] , [place] - [facility] - [place] & [place] 3 15:41:42 Overweigh t 616192840 Active 2023 Aden Husain DNP, [employer], [employer]-C [address], [place], [address] [place] [address] , [place] [facility] [place] & [place] 4 09:57:50 Fatigue 01173229 Active 2023 Aden Husain DNP, [employer], [employer]-C [address], [place], [address] [place] [address] , [place] [facility] & [place] 4 10:00:39 Liver enzymes level above reference range 698225918 Active 2023 Aden Husain DNP, [employer], [employer]-C [address], [place], [address] , [place] [facility] [place] & [place] 4 13:32:45 Low back pain 903040710 Active 2023 Aden Husain DNP, [employer], [employer]MER-C [address], [place], [address] , [place] [facility] [place] & [place] 4 15:56:35 Irritable bowel syndrome character ized by constipat ion 222697493 Active 2023 Ernesto Amezcua PA-C [address], [place], [address] [place] [address] , [place] [facility] [place] & [place] 4 09:08:46 Problem Notes None recorded. Procedures Surgical History Date Name Laterality Status Provider Name and Address Organization Details Recorded Time 07/23/[address], LD [address] , [place], [address], [facility] - [facility] & [place] 08/14/2022 16:17:22 05/28/20 21 Date of Last Pap Smear completed RIMMA RAY RD, LD [address] , [place], [address], [place] [facility] & [place] 08/14/2022 16:17:22 12/20/19 21 Date of Last Colonoscopy completed RIMMA RAY RD, LD [address] , [place], [address], [facility] - [facility] & [place] 08/14/2022 16:17:22 11/17/19 20 Most Recent Bone Density completed RIMMA RAY RD, LD [address] , [place], [address], [facility] - [facility] & [place] 08/14/2022 16:17:22 Appendectomy completed Not Available [facility] 13:08:39 extraction of wisdom tooth completed Not Available [facility] 08/10/2022 13:08:39 lithotripsy completed Not Available [facility] 07/14 13:08:39 Colonoscopy completed Marychuy Quesada [place] - [place] [facility] & [place] 08/13/2022 11:21:25 EGD completed Marychuy Quesada [place] - [facility] & [place] 08/13/2022 11:21:36 Gastric Bypass completed Dipesh Dow [place] - [facility] & [place] 12/29/2022 08:20:27 Imaging Results None recorded. Procedure Notes None recorded. Medical Equipment None Reported. Allergies Allergen ID Allergen Name Allergen Category Reaction Reaction Severity Criticality Documentation Date Start Date Code Code System Note Provider Name and Address Organization Details Recorded Time 31726 Product containin g penicilli n (product) medicatio n Not available Not available Not available 03/25/2022 24495 8001 SNOMED [facility]eb [facility]illon [place] [facility] [place] 2 14:01:10 057007 indometha gen medicatio n Not available Not available Not available 06/19/2024 5781 RxNorm Other react ions and sever ities : 'Adve rse react ion to subst ance' . Kary Rust null, [facility] & [place] 4 14:05:45 182764 penicilli n V Not available Not available Not available Not available 06/19/2024 7984 RxNorm Other react ions and sever ities : 'Anap hylax is due to subst ance' . Kary aguillon, [facility] & [place] 4 14:05:45 187973 milnacipr an medicatio n Not available Not available Not available 06/19/2024 61035 0 RxNorm Other react ions and sever ities : 'Adve rse react ion to subst ance' . Kary Rust null, [facility] & [place] 4 14:05:45 36588 Savella medicatio n Not available Not available Not available 08/13/2022 40361 6 RxNorm Marychuy Quesada [facility], [facility] & [place] 3 11:18:57 Medications Name Sig Start Date [...] cm 98.1 [degF] 75 /min 24.8 kg/m2 37280.7 4 g 96 mm[Hg] 70 mm[Hg] Araceli Escoto DARON [facility] & [place] 5 09:01:03 Date Recorded Body height Body mass index (BMI) Body weight Body temperature Heart rate Provider Name and Address Organization Details Last Updated DateTime 12/27/2024 162.56 cm 24.7 kg/m2 03231.58 g 98.4 [degF] 97 /min [facility] EDY Escoto [facility] & [place] 5 14:16:54 Date Recorded Body height Body temperature Heart rate Body mass index (BMI) Body weight Systolic blood pressure Diastolic blood pressure Provider Name and Address Organization Details Last Updated DateTime 4 162.56 cm 97.8 [degF] 76 /min 26.2 kg/m2 85724.8 4 g 109 mm[Hg] 73 mm[Hg] Araceli TOM [facility] & [place] 4 09:28:16 Date Recorded Body height Body temperature Heart rate Body mass index (BMI) Body weight Systolic blood pressure Diastolic blood pressure Provider Name and Address Organization Details Last Updated DateTime 4 162.56 cm 98.7 [degF] 89 /min 25 kg/m2 83181.4 1 g 113 mm[Hg] 81 mm[Hg] Araceli Escoto DARON [facility] & [place] 4 09:17:32 Date Recorded Body height Body mass index (BMI) Body weight Body temperature Heart rate Heart rate Oxygen saturation Oxygen saturation in Arterial blood by Pulse oximetry Systolic blood pressure Diastolic blood pressure Provider Name and Address Organization Details Last Updated DateTime 4 162.56 cm 24.8 kg/m2 51831.0 2 g 97.4 [degF] 99 /min 98 /min 97 % 97 % 107 mm[Hg] 73 mm[Hg] Francisca Michele [facility] & [place] 4 13:05:54 Social History Question Answer Notes LastModified by [employer] Details LastModified Time Tobacco Smoking Status Former Smoker quit 3 years ago Araceli Velasquez [facility], [facility] & [place] 09/06/2023 09:49:34 Do You Have An Advance Directive? No [email or web address] Information not available 08/14/2022 Are You Blind Or Do You Have Difficulty Seeing? No [email or web address] Information not available 08/14/2022 What Was The Date Of Your Most Recent Tobacco Screening? 08/10/2022 [email or web address] Information not available 08/14/2022 Are You Passively Exposed To Smoke? No [email or web address] Information not available 08/14/2022 How Much Tobacco Do You Smoke? No [email or web address] Information not available 08/14/2022 Sex: Male Functional Status Question Answer Note LastModified by [employer] Details LastModified Time Do you use any illicit or recreational drugs? No [email or web address] Information not available 08/10/2022 What is your level of alcohol consumption? None [email or web address] Information not available 08/10/2022 Do you or have you ever used smokeless tobacco? Never used smokeless tobacco [email or web address] Information not available 08/14/2022 What is your exercise level? None [email or web address] Information not available 08/14/2022 Mental Status Question Answer Note LastModified by Organization D etails LastModified Time Do you feel stressed (tense, restless, nervous, or anxious, or unable to sleep at night)? [id number] [email or web address] Information not available 08/14/2022 Family History Relationship Description Onset Age of this Age Resolved Age Notes LastModified by Organization Details LastModified Time Father Obesity [email or web address] Not availa ble 08/10/2022 08:30:50 Father Diabetes mellitus [email or web address] Not available 2024 14:11:10 Father Hypertensive disorder [email or web address] Not available 08:31:23 Father Heart disease [email or web address] Not available 08:31:48 Father Cerebrovascu lar accident [email or web address] Not available 08/10/2022 08:32:04 Father Hypercholest erolemia [email or web address] Not available 08:32:27 Father Asthma [email or web address] Not available 12/27/2024 14:11:10 Father Allergy pt. added direct ly (08/10) [email or web address] Not available 08/10/2022 13:04:20 Father Disorder of endocrine system pt. added direct ly (08/10) [email or web address] Not available 08/10/2022 13:07:54 Maternal Grandmother Obesity [email or web address] Not available 0 08/10/2022 08:30:50 Maternal Grandmother Hypertensive disorder [email or web address] Not available 08:31:23 Maternal Grandmother Heart disease [email or web address] Not available 08:31:49 Mother Hypertensive disorder Not available 08:31:23 Mother Heart disease [email or web address] Not available 08:31:48 Mother Cerebrovascu lar accident [email or web address] Not available 08/10/2022 08:32:04 Mother Hypercholest erolemia Not available 08:32:27 Mother Allergy pt. added direct ly (08/10) [email or web address] Not available 08/10/2022 13:04:20 Brother Hypertensive disorder [email or web address] Not available 08:31:23 Brother Heart disease [email or web address] Not available 08:31:49 Brother Hypercholest erolemia [email or web address] Not available 08:32:27 Brother Cerebrovascu lar accident pt. added direct ly (09/03) [email or web address] Not available 09/03/2023 11:07:40 Sister Hypertensive disorder [email or web address] Not available 08:31:23 Sister Hypercholest erolemia [email or web address] Not available 08:32:27 Maternal Grandfather Heart disease [email or web address] Not available 08:31:49 Maternal Uncle Allergy pt. added direct ly (08/10) [email or web address] Not available 08/10/2022 13:04:20 Paternal Grandmother Obesity pt. added direct ly (08/10) [email or web address] Not available 08/10/2022 13:08:19 Medical History Condition Response Other Y Gout N Kidney Stones Y Depression Y COPD Y Osteoporosis/Osteopenia Y Constipation Y Spine Problems Y Heart Attack (AR) Y Obstructive Sleep Apnea Y Anxiety Disorder [...] virus, quadrivalent, preservative 7 completed Not Available [facility] 01/01/2023 16:06:44 Influenza, recombinant, quadrivalent, PF 1 completed Not Available [facility] 01/01/2023 16:06:44 Influenza, recombinant, quadrivalent, PF 0 completed Not Available [facility] 01/01/2023 16:06:44 zoster recombinant 1 completed Not Available [facility] 01/01/2023 16:06:44 zoster recombinant 1 completed Not Available [facility] 01/01/2023 16:06:44 MMR 6 completed Not Available [facility] 01/01/2023 16:06:44 COVID-19, mRNA, LNP-S, PF, 100 mcg/0.5mL dose or 50 mcg/0.25mL dose 1 completed Not Available [facility] 01/01/2023 16:06:44 COVID-19, mRNA, LNP-S, PF, 100 mcg/0.5mL dose or 50 mcg/0.25mL dose 1 completed Not Available [facility] 01/01/2023 16:06:44 COVID-19, mRNA, LNP-S, PF, 100 mcg/0.5mL dose or 50 mcg/0.25mL dose 1 completed Not Available [facility] 01/01/2023 16:06:44 Pneumococcal conjugate PCV20, polysaccharide [id number] conjugate, adjuvant, PF 2 completed Not Available [facility] 01/01/2023 16:06:44 pneumococcal polysaccharide PPV23 1 completed Not Available [facility] 01/01/2023 16:06:44 pneumococcal polysaccharide PPV23 7 completed Not Available [facility] 01/01/2023 16:06:44 Influenza, split virus, quadrivalent, PF 9 completed Not Available [facility] 01/01/2023 16:06:44 Influenza, split virus, quadrivalent, PF 2 completed Not Available [facility] 01/01/2023 16:06:44 Influenza, split virus, quadrivalent, PF 8 completed Not Available [facility] 01/01/2023 16:06:44 influenza, unspecified formulation 4 completed Kary Rust null, [place] [facility] [place] [facility] [place] 08/08/2024 13:51:39 Respiratory syncytial virus (RSV) MAB, unspecified 4 completed Araceli Velasquez null, [place] [facility] [place] [facility] [place] 06/06/2024 09:21:15 Influenza, high-dose, quadrivalent, PF 3 completed Kary Rust null, [place] [facility] [facility] [place] 08/08/2024 13:51:39 RSV, recombinant, protein subunit RSVpreF, adjuvant reconstituted, 0.5 mL, PF 4 completed Kary Rust null, [place] [facility] [facility] [place] 08/08/2024 13:51:39 Influenza, high-dose, trivalent, PF 4 completed EDY Capone LPDARON - [place] & [place] 08/08/2024 13:51:39 Past Encounters Encounter ID Performer Location Encounter Start Date Encounter Closed Date Diagnosis/Indication Diagnosis SNOMED-CT Code Diagnosis ICD10 Code Diagnosis Note [id number] Ernesto Amezcua PA-C [facility] [address] [facility] [address] [place] [address] 03/25/2022 13:56:07 03/25/2022 14:27:57 Chronic idiopathic constipation 09595175 K59.04 Continue current bowel regimen with stool softners, fiber supplement , and Miralax as needed Gastroesop hageal reflux disease 546605187 K21.9 Increase PPI to twice daily due to refractory symptoms Obesity 926962985 E66.9 Referral to Bariatrics to discuss weight loss options. [id number] RANI Rosario [facility] [address] [facility] [address] [place] [address] 08/13/2022 07:57:41 08/13/2022 11:52:06 Obesity 378418013 E66.9 The patient will be scheduled for [...] been completed Chronic ob structive pulmonary disease 62330042 J44.9 Hypertensive disorder 38 497913 I10 Dyslipidemia 655188068 E 78.5 Hx CAD s/p AR 2014 Gastroesop hageal reflux disease 983449047 K21.9 We discussed concerns of worsening gastroesop [...] lifelong contraindi cation to tobacco/ni cotine use [id number] Ernesto Amezcua PA-C [facility] [address] [facility] [address] [place] [address] 09/21/2022 13:44:59 09/21/2022 14:12:51 Chronic idiopathic constipation 16900252 K59.04 Gastroesop hageal reflux disease 730917990 K21.9 Obesity 165382055 E66.9 [id number] Gabo Sahu DO [facility] [address] [facility] [address] [place] [address] 12/16/2022 08:52:42 12/16/2022 13:36:20 Morbid obesity 149058793 E66.01 Pre-surger y evaluation 055442814 Z01.818 Postoperative pain 24289 9007 G89.18 Hypertensive disorder 38 808471 I10 Gastroesop hageal reflux disease 761197887 K21.9 [id number] Aden Husain DNP, ARSENIO, [employer] [facility] n Bariatric [facility] and Adv S[facility] [address] [facility] [address] [place] [address] 12/29/2022 07:58:00 12/29/2022 10:15:25 History of bariatric surgical procedure 091397330 Z98.84 Chronic depression 95621 0009 F32.A Chronic ob structive pulmonary disease 12549710 J44.9 Dyslipidemia 536219386 E 78.5 Fibromyalgia 321057496 M 79.7 Hypertensive disorder 38 510619 I10 advised to follow back up with pcp regarding elevated blood pressure and dizziness. Morbid obesity 274044577 E66.01 Dizziness 572023739 R42 Intentiona l weight loss 710069176 R63.8 [id number] Aden Husain DNP, ARSENIO, [employer]C [facility] n B[facility] [address] [facility] [address] [place] [address] 01/19/2023 09:44:10 01/19/2023 11:03:53 History of bariatric surgical procedure 894200106 Z98.84 Intentiona l weight loss 956539959 R63.8 History of gastrectomy 272671642 Z90.3 Advised qid intake 50% protein 1863-6592 calories/d y less than 100 carbs/dyPa tient was see dietitian today. Patient is status post bariatric surgery and at increased risk for vitamin deficienci es and malnutriti on. Bariatric vitamin panel ordered today. Patient will be contacted to correct any vitamin deficienci es. Chronic ob structive pulmonary disease 52305553 J44.9 Dyslipidemia 601457039 E 78.5 Fibromyalgia 336750397 M 79.7 Hypertensive disorder 38 549233 I10 advised to follow back up with pcp regarding elevated blood pressure and dizziness. Morbid obesity 783794752 E66.01 Dizziness 655666729 R42 [id number] Aden Husain, CAMMIE, [employer], [employer] TR[employer]MER-C [facility] S[facility] [address] [place] [address] [address] [place] [address] 03/19/2023 10:10:54 03/19/2023 11:00:26 History of bariatric surgical procedure 250634781 Z98.84 Intentiona l weight loss 297462244 R63.8 History of gastrectomy 598153457 Z90.3 Advised qid intake 50% protein 6928-0630 calories/d y less than 100 carbs/dyLo ng [...] to correct any vitamin deficienci es. Dyslipidemia 902456211 E 78.5 Fibromyalgia 702529976 M 79.7 Obesity 255904977 E66.9 [id number] Ernesto Amezcua, PA-C [facility] [address] [facility] [address] [place] [address] 05/20/2023 14:50:51 05/20/2023 15:32:08 Obesity 953931176 E66.9 History of bypass of stomach 326480596 Z98.84 History of gastroesophageal reflux disease 6876572477 9106 Z87.19 Constipation 28130790 K5 9.00 [id number] Aden Husain, DNP, [employer], [employer]-C [facility] Adv [facility] [address] [facility] [address] [place] [address] 05/28/2023 09:12:11 05/28/2023 09:46:17 History of bariatric surgical procedure 069937926 Z98.84 Intentiona l weight loss 560480288 R63.8 History of gastrectomy 416470970 Z90.3 Advised qid intake 50% protein 9080-4285 calories/d y less than 100 carbs/dy Long [...] correct any vitamin deficienci es. Chronic depression 49407 0009 F32.A Chronic id iopathic constipation 46554413 K59.04 Dyslipidemia 845722532 E 78.5 Fibromyalgia 577183560 M 79.7 Hypertensive disorder 38 907473 I10 Obesity 417378642 E66.[id number] THOMAS RDN, LD [facility] [address] [facility] [address] [place] [address] 05/28/2023 09:47:21 05/28/2023 10:33:33 Obesity 907889584 E66.9 Discussed lifestyle modificati ons for continued weight loss and optimal nutrition Deficient knowledge of food and/or nutrition 4293640887 Z76.89 RDN advised pt on ways she can increase her protein and calorie intake, including adding peanut butter with fruits and making mixed dishes such as reduced fat casseroles . Advised pt to try baked apples with a small amount of canola oil, cinnamon and Splenda or similar alternativ e as needed. [id number] Aden Husain, CAMMIE, [employer], [employer]DER TR[employer]MER-C [facility] S[facility] [address] [facility] [address] [place] [address] 09/06/2023 09:37:05 09/06/2023 10:21:52 Dyslipidemia 817950283 E78.5 Fibromyalgia 584467468 M 79.7 Hypertensive disorder 38 412999 I10 Overweight 904589901 E66 .3 Intentiona l weight loss 502382666 R63.8 History of gastrectomy 700399694 Z90.3 Advised qid intake 50% protein 6501-9234 calories/d y less than 100 carbs/dy Long [...] to correct any vitamin deficienci es. Fatigue 52082534 R53.83 [id number] Aden Husain, CAMMIE, [employer], [employer]MER-C [facility] Adv S[facility] [address] [facility] [address] [place] [address] 12/07/2023 13:03:52 12/07/2023 14:39:49 History of bariatric surgical procedure 550224126 Z98.84 Intentiona l weight loss 349835118 R63.8 History of gastrectomy 603505191 Z90.3 Advised qid intake 50% protein 0527-5926 calories/d y less than 100 carbs/dy Long [...] to correct any vitamin deficienci es. Dyslipidemia 679248223 E 78.5 Hypertensive disorder 38 688147 I10 Overweight 737338575 E66 .3 Chronic ob structive pulmonary disease 98640536 J44.9 Liver enzy mes level above reference range 628937160 R74.01 [id number] Jonas Ball MD [facility] [address] [place] [address] 12/21/2023 14:58:32 12/21/2023 16:40:24 Obesity 753484991 E66.9 History of bypass of stomach 911720597 Z98.84 History of gastroesophageal reflux disease 6174184863 9106 Z87.19 Constipation 61144883 K5 9.00 Liver enzy mes level above reference range 998010985 R74.01 [id number] Ernesto Amezcua PA-C [facility] [address] [facility] [address] [place] [address] 03/02/2024 08:10:22 03/02/2024 09:21:52 Obesity 552407521 E66.9 History of bypass of stomach 537554892 Z98.84 History of gastroesophageal reflux disease 8634936158 9106 Z87.19 Liver enzy mes level above reference range 255316408 R74.01 Irritable bowel syndrome characterized by constipation 674372020 K58.1 [id number] Aden Husain, DNP, [employer], [employer] TR[employer]MER-C [facility] [address] [facility] [address] [place] [address] 03/06/2024 09:07:07 03/06/2024 10:03:41 History of bariatric surgical procedure 265229310 Z98.84 Intentiona l weight loss 040277025 R63.8 History of gastrectomy 052560037 Z90.3 Advised qid intake 50% protein 1839-8551 calories/d y less than 100 carbs/dyLo ng [...] to correct any vitamin deficienci es. Dyslipidemia 042311107 E 78.5 Hypertensive disorder 38 220146 I10 Overweight 678709018 E66 .3 Chronic id iopathic constipation 03257860 K59.04 [id number] Aden Hsuain, DNP, [employer], [employer]MER-C [facility] Adv S[facility] [address] [facility] [address] [place] [address] 06/06/2024 09:07:53 06/06/2024 09:44:14 Intentional weight loss 515204281 R63.8 History of gastrectomy 719958251 Z90.3 Advised qid intake 50% protein 0359-3241 calories/d y less than 100 carbs/dyLo ng [...] to correct any vitamin deficienci es. [facility] of [facility] 496154684 Z91.89 Chronic ob structive pulmonary disease 36527103 J44.9 Dyslipidemia 172796433 E 78.5 Hypertensive disorder 38 742325 I10 Liver enzy mes level above reference range 260869895 R74.01 Overweight 109978639 E66 .3 [id number] Ernesto Amezcua PA-C [facility] [address] [facility] [address] [place] [address] 06/26/2024 12:47:56 06/26/2024 13:41:37 Chronic idiopathic constipation 64542967 K59.04 Metabolic dysfunction-associate d steatohepatitis 960178230 K75.81 Liver enzy mes level above reference range 596253271 R74.01 Gastroesop hageal reflux disease without esophagitis 182126727 K21.9 History of colonoscopy 5896129784 09 Z98.740 [id number] Aden Husain, DNP, [employer], MOLDER TRIMMER-C [facility] Bariatric s and Adv Surg [address] [place] [address] 12/08/2024 08:48:35 12/08/2024 09:28:10 History of bariatric surgical procedure 385276900 Z98.84 Intentiona l weight loss 458567177 R63.8 History of gastrectomy 623820186 Z90.3 Advised qid intake 50% protein 8659-6905 calories/d y less than 100 carbs/dy Long [...] to correct any vitamin deficienci es. [facility] risk of nutritional deficit 469197791 Z91.89 Dyslipidemia 160896928 E 78.5 Hypertensive disorder 38 617975 I10 Overweight 455155607 E66 .3 [id number] Ernesto Amezcua PA-C [facility] [address] [facility] [address] [place] [address] 12/27/2024 14:10:09 12/27/2024 14:38:18 Liver enzymes level above reference range 588253074 R74.01 Metabolic dysfunction-associate d steatohepatitis 724740125 K75.81 Gastroesop hageal reflux disease without esophagitis 817652872 K21.9 Chronic id iopathic constipation 73145157 K59.04 History of colonoscopy 9864147877 09 Z98.890 Health Concerns Section Related Observation LastModified by Organization Detai ls LastModified Time None Recorded Concern Status LastModified by Organization Details LastModified Time None Recorded Advance Directives Directive N: Payers Insurance Date Sequence Insurance Name Policy Number Policy Acosta Covered Member ID Acosta Member ID Guarantor Name 01/04/2025 1 [place] Maria Isabel Mark Doran [id number] [place]e [place] 01/04/2025 2 AARP (MEDICARE SUPPLEMENT) Maria Isabel Mark Doran [id number] Maria Isabel [place] 01/04/2025 [place] Maria Isabel Mark Doran [id number] Maria Isabel Espinoza 01/04/2025 1 [place] Maria Isabel Mark Doran [id number] Maria Isabel Espinoza 12/04/2020 3 [place] [id number] R Stanislav Doran [id number] Maria Isabel [place] 01/04/2025 2 [place] Maria Isabel Mark Doran [id number] Maria Isabel Espinoza 01/04/2025 4 [employer] (MEDICARE REPLACEMENT/ ADVANTAGE - HMO) Maria Isabel Mark Doran [id number] [place]iree [place] 01/04/2025 1 [employer] (MEDICARE REPLACEMENT/ ADVANTAGE - PPO) Maria Isabel Mark Doran [id number] Maria Isabeldesiree Doran Notes Date Note Type [...] 39.8Basal Metabolic Rate = 1269 kilo calories Edward Denilson Rodrigue, DNP, ARSENIO, MOLDER TRIMMER-C [address], [place], [address], [facility] 03/06/2024 10:54:05 06/06/2024 text/html Patient presents the [...] = 1309 kilo calories Aden Husain DNP, ARSENIO, MOLDER TRIMMER-C [address], [place], [address], [facility] 06/06/2024 11:11:04 06/26/2024 text/html CURRENT (06/26/24): Ms. [...] bypass 1.5 years ago. Ernesto Amezcua PA-C [address], [place], [address], [facility] 06/26/2024 13:49:44 12/08/2024 text/html Patient presents the [...] = 1261 kilo calories Aden Husain, DNP, [employer], MOLDER TRIMMER-C [address], [place], [address], [facility] - [place] & [place] 12/08/2024 09:20:24 12/27/2024 text/html PREVIOUS (06/26/24): Ms. [...] overall at this time. Ernesto Amezcua PA-C [address], [place], [address], [place] - [facility] - [place] & [place] 12/27/2024 14:41:34 OBGyn Episode No OBEpisode recorded.
--- OUTSIDE RECORDS SUMMARY | 2025-01-07 13:27 | XMS_ITS | Clinical Summary ---
Author Organization [facility] Address [address] [place] [address] Care Team Providers Care Supervisor [employer] Name Role Phone Saul Benitez MD Primary Care Provider [phone] Family History Medical History Relation Name Comments [...] of Treatment Not on file Care Teams Supervisor [employer] Relationship Specialty Start Date End Date Saul Benitez MD [address] [place] [address] PCP - General 11/22/20
--- OUTSIDE RECORDS SUMMARY | 2025-01-07 13:27 | XMS_ITS | Continuity of Care Document ---
Author Organization [facility] Bariatrics and Adv Surg Address [address] [facility] [address] [place] [address] Care Team Providers Care Productivity Engineer Name Role Phone CAREYGALIESTEFANIA GENET Primary Care Provider [phone] Assessment No assessment recorded. Plan of Treatment Reminders Order Date Submit Date Provider Last Modified By Organization Details Last Modified Time Details Appointments Establish ed Visit 15 min 2024 01:45P M Ernesto Amezcua PA-C Not available Not available Not available OV EST 20 2024 10:00A M Aden Husain, DNP, HADOOP ANALYST, SPECIAL INSPECTOR-C Not available Not available Not available Lab CBC w/ auto diff 2024 025 [facility], [address], [address], [place], [address], 12/15/2024 14:37:20 CMP, serum or plasma 2024 025 [facility]AC [facility], [address], [address], [place], [address], 12/15/2024 14:37:21 TSH + free T4, serum 2024 025 [facility]AC [facility], [address], [address], [place], [address], 12/15/2024 14:37:19 HbA1c (hemoglob in A1c), blood 2024 025 [facility], [address], [address], [place], [address], 12/15/2024 14:37:24 lipid panel, serum 2024 025 [facility], [address], [address], [place], [address], 12/15/2024 14:37:22 copper, serum or plasma 2024 025 [facility], [address], [address], [place], [address], 12/15/2024 14:37:29 selenium, quantitat silvino, blood 2024 025 [facility], [address], [address], [place], [address], 12/15/2024 14:37:31 zinc, serum or plasma 2024 025 [facility], [address], [address], [place], [address], 12/15/2024 14:37:30 iron + TIBC + ferritin, serum 2024 025 [facility], [address], [address], [place], [address], 12/15/2024 14:37:18 folate, serum 2024 025 [facility], [address], [address], [place], [address], 12/15/2024 14:37:24 vitamin E, serum 2024 025 ISAAC [facility], [address], [address], [place], [address], 12/15/2024 14:37:23 vitamin A (retinol) , serum 2024 025 [facility], [address], [address], [place], [address], 12/15/2024 14:37:25 prealbumi n, serum 2024 025 [facility], [address], [address], [place], [address], 12/15/2024 14:37:30 thiamine, QN, blood 2024 025 [facility], [address], [address], [place], [address], 12/15/2024 14:37:27 methylmal jareth, QN, serum or plasma 2024 025 [facility], [address], [address], [place], [address], 12/15/2024 14:37:28 vitamin D, 25-hydrox y, total, serum 2024 025 [facility], [address], [address], [place], [address], 12/15/2024 14:37:26 Referral None recorded. Procedures None recorded. Surgeries None recorded. Imaging None recorded. Medication Orders None recorded. Patient TargetsNo targets recorded. Patient InstructionsNo instructions recorded. Reason for Referral None Reported. Problems Name Problem SNOMED Code Status Onset Date Resolution Date Notes Provider Name and Address Organization Details Recorded Time Metabolic dysfuncti on-associ ated steatohep atitis 770648405 Active 2023 Ernesto Amezcua PA-C [address], [place], [address] , [facility] - [place] & [place] 14:30:35 Gastroeso phageal reflux disease without esophagit is 984556711 Active 2023 Ernesto Amezcua PA-C [address], [place], [address] , [place] - [facility] - [place] & [place] 4 13:48:57 Chronic idiopathi c constipat ion 26467443 Active 2021 Not Available [facility] [place] [facility] 3 16:06:44 Gastroeso phageal reflux disease 841958510 Active 2021 Not Available [facility] 3 16:06:44 Diarrhea 38000187 Active 2021 Not Available [facility] 3 16:06:44 Hypokalem ia 34551383 Active 2021 Not Available [facility] [place] [facility] 3 16:06:44 Abdominal pain 50911880 Active 2021 Not Available [facility] [place] [facility] 3 16:06:44 Myocardia l infarctio n 00091269 Completed 202103/25/2022 Azeb Quesada null, [place] - [facility] - [place] & [place] 2 14:37:03 Fibromyal dominique 676414117 Active 2021 [facility] Available [facility] 3 16:06:44 Mild dementia 80944465125 4108 Active 2021 Not Available [facility] 3 16:06:44 Chronic obstructi ve pulmonary disease 04286159 Active 2021 Not Available [facility] 3 16:06:44 Hiatal hernia 59287457 Completed 202103/25/2022 Azeb Quesada null, [place] - [facility] - [place] & [place] 2 14:38:57 Chronic depressio n 946859830 Active 2021 Not Available [facility] 3 16:06:44 Obesity 439747779 Active 2021 Ernesto Amezcua PA-C [address], [place], [address] , [place] - [facility] - [place] & [place] 2 14:51:36 Hypertens silvino disorder 22135627 Active 2022 Not Available [facility] [place] [facility] 3 16:06:44 Dyslipide franc 564940213 Active 2022 Not Available [facility] [place] [facility] 3 16:06:44 Morbid obesity 723219546 Active 2022 Not Available [facility] [place] [facility] 3 16:06:44 Dizziness 390211812 Active 2022 Not Available [facility] [place] [facility] 3 16:06:44 Intention al weight loss 144249163 Active 2022 Not Available [facility] [place] [facility] 3 16:06:44 Constipat ion 14273008 Active 2022 ROSEANN GrajedaC [address] [facility], [place], [place], [address] [place] [address] , [place] - [facility] - [place] & [place] 3 15:41:42 Overweigh t 963531189 Active 2023 Aden Husain DNP, ARSENIO, SPECIAL INSPECTOR-C [address] [facility], [place], [address] [place] [address] , [place] - [facility] - [place] & [place] 4 09:57:50 Fatigue 91065072 Active 2023 Aden Husain DNP, ARSENIO, SPECIAL INSPECTOR-C [address] [facility], [place], [address] [place] [address] , [place] [facility] - [place] & [place] 4 10:00:39 Liver enzymes level above reference range 415876474 Active 2023 Aden Husain DNP, HADOOP ANALYST, SPECIAL INSPECTOR-C [address] [facility], [place], [address] [place] [address] , [place] [facility] - [place] & [place] 4 13:32:45 Low back pain 878924266 Active 2023 Aden Husain DNP, HADOOP ANALYST, SPECIAL INSPECTOR-C [address] [facility], [place], [address] [place] [address] , [place] [facility] - [place] & [place] 4 15:56:35 Irritable bowel syndrome character ized by constipat ion 153163089 Active 2023 Ernesto Amezcua PA-C [address] , [place], [address] , [place] [facility] & [place] 09:08:46 Problem Notes None recorded. Procedures Surgical History Date Name Laterality Status Provider Name and Address Organization Details Recorded Time 07/23/[address], [place] [address] , [place], [address], [place] [facility] & [place] 08/14/2022 16:17:22 05/28/20 21 Date of Last Pap Smear completed RIMMA RAY RD, LD [address], [place], [address], [place] [facility] & [place] 08/14/2022 16:17:22 12/20/19 21 Date of Last Colonoscopy completed RIMMA RAY RD, LD [address], [place], [address], [place] [facility] & [place] 08/14/2022 16:17:22 11/17/19 20 Most Recent Bone Density completed RIMMA RAY RD, LD [address] [facility], [place], [address], [place] [facility] & [place] 08/14/2022 16:17:22 Appendectomy completed Not Available [facility] 13:08:39 extraction of wisdom tooth completed Not Available [facility] 08/10/2022 13:08:39 lithotripsy completed Not Available [facility] 07/14 13:08:39 Colonoscopy completed Marychuy Quesada [place] - [facility] & [place] 08/13/2022 11:21:25 EGD completed Marychuy Quesada [place] [facility] & [place] 08/13/2022 11:21:36 Gastric Bypass completed Dipesh Dow [place] - [facility] & [place] 12/29/2022 08:20:27 Imaging Results None recorded. Procedure Notes None recorded. Medical Equipment None Reported. Allergies Allergen ID Allergen Name Allergen Category Reaction Reaction Severity Criticality Documentation Date Start Date Code Code System Note Provider Name and Address Organization Details Recorded Time 33913 Product containin g penicilli n (product) medicatio n Not available Not available Not available 03/25/2022 53842 8001 SNOMED Azeb Quesada [facility], [facility] & [place] 2 14:01:10 779617 indometha gen medicatio n Not available Not available Not available 06/19/2024 5781 RxNorm Other react ions and sever ities : 'Adve rse react ion to subst ance' . [facility] [place] 4 14:05:45 185372 penicilli n V Not available Not available Not available Not available 06/19/2024 7984 RxNorm Other react ions and sever ities : 'Anap hylax is due to subst ance' . [facility] [place] 4 14:05:45 961313 milnacipr an medicatio n Not available Not available Not available 06/19/2024 23294 0 RxNorm Other react ions and sever ities : 'Adve rse react ion to subst ance' . Kary aguillon, [facility] & [place] 4 14:05:45 26905 Savella medicatio n Not available Not available Not available 08/13/2022 81205 6 RxNorm Marychuy Quesada [facility] & [place] 3 11:18:57 Medications Name Sig [...] and Address Organization Details Last Updated DateTime 162.56 cm 98.1 [degF] 75 /min 24.8 kg/m2 35219.7 4 g 96 mm[Hg] 70 mm[Hg] Araceli Velasquez [facility] & [place] 09:01:03 Social History Question Answer Notes LastModified by Davia Details LastModified Time Tobacco Smoking Status Former Smoker quit 3 years ago Araceli Velasquez [facility] & [place] 09/06/2023 09:49:34 Do You Have An Advance Directive? No [email or web address] Information not available 08/14/2022 Are You Blind Or Do You Have Difficulty Seeing? No [email or web address] Information not available 08/14/2022 What Was The Date Of Your Most Recent Tobacco Screening? 08/10/2022 [email or web address] Information not available 08/14/2022 Are You Passively Exposed To Smoke? No [email or web address] Information not available 08/14/2022 How Much Tobacco Do You Smoke? No [email or web address] Information not available 08/14/2022 Sex: Male Functional Status Question Answer Note LastModified by Davia Details LastModified Time Do you use any illicit or recreational drugs? No [email or web address] Information not available 08/10/2022 What is your level of alcohol consumption? None [email or web address] Information not available 08/10/2022 Do you or have you ever used smokeless tobacco? Never used smokeless tobacco [email or web address] Information not available 08/14/2022 What is your exercise level? None [email or web address] Information not available 08/14/2022 Mental Status Question Answer Note LastModified by Organization D etails LastModified Time Do you feel stressed (tense, restless, nervous, or anxious, or unable to sleep at night)? [id number] [email or web address] Information not available 08/14/2022 Family History Relationship Description Onset Age of this Age Resolved Age Notes LastModified by Organization Details LastModified Time Father Obesity [email or web address] Not availa ble 08/10/2022 08:30:50 Father Diabetes mellitus [email or web address] Not available 2024 14:11:10 Father Hypertensive disorder [email or web address] Not available 08:31:23 Father Heart disease Not available 08:31:48 Father Cerebrovascu lar accident [email or web address] Not available 08/10/2022 08:32:04 Father Hypercholest erolemia [email or web address] Not available 08:32:27 Father Asthma [email or web address] Not available 12/27/2024 14:11:10 Father Allergy pt. added direct ly (08/10) [email or web address] Not available 08/10/2022 13:04:20 Father Disorder of endocrine system pt. added direct ly (08/10) [email or web address] Not available 08/10/2022 13:07:54 Maternal Grandmother Obesity [email or web address] Not available 0 08/10/2022 08:30:50 Maternal Grandmother Hypertensive disorder [email or web address] Not available 08:31:23 Maternal Grandmother Heart disease [email or web address] Not available 08:31:49 Mother Hypertensive disorder [email or web address] Not available 08:31:23 Mother Heart disease [email or web address] Not available 08:31:48 Mother Cerebrovascu lar accident [email or web address] Not available 08/10/2022 08:32:04 Mother Hypercholest erolemia [email or web address] Not available 08:32:27 Mother Allergy pt. added direct ly (08/10) [email or web address] Not available 08/10/2022 13:04:20 Brother Hypertensive disorder [email or web address] Not available 08:31:23 Brother Heart disease [email or web address] Not available 08:31:49 Brother Hypercholest erolemia [email or web address] Not available 08:32:27 Brother Cerebrovascu lar accident pt. added direct ly (09/03) [email or web address] Not available 09/03/2023 11:07:40 Sister Hypertensive disorder [email or web address] Not available 08:31:23 Sister Hypercholest erolemia [email or web address] Not available 08:32:27 Maternal Grandfather Heart disease Not available 08:31:49 Maternal Uncle Allergy pt. added direct ly (08/10) [email or web address] Not available 08/10/2022 13:04:20 Paternal Grandmother Obesity pt. added direct ly (08/10) [email or web address] Not available 08/10/2022 13:08:19 Medical History Condition Response Gout N Other Y Kidney Stones Y Depression Y COPD Y Osteoporosis/Osteopenia Y Constipation Y Heart Attack (MS) Y Spine Problems Y Obstructive Sleep Apnea [...] recombinant, quadrivalent, PF 1 completed Not Available [facility] 01/01/2023 16:06:44 Influenza, recombinant, quadrivalent, PF 0 completed Not Available [facility] 01/01/2023 16:06:44 zoster recombinant 1 completed Not Available [facility] [place] [facility] 01/01/2023 16:06:44 zoster recombinant 1 completed Not Available [facility] [place] [facility] 01/01/2023 16:06:44 MMR 6 completed Not Available [facility] [place] [facility] 01/01/2023 16:06:44 COVID-19, mRNA, LNP-S, PF, 100 mcg/0.5mL dose or 50 mcg/0.25mL dose 1 completed Not Available [facility] [place] [facility] 01/01/2023 16:06:44 COVID-19, mRNA, LNP-S, PF, 100 mcg/0.5mL dose or 50 mcg/0.25mL dose 1 completed Not Available [facility] [place] [facility] 01/01/2023 16:06:44 COVID-19, mRNA, LNP-S, PF, 100 mcg/0.5mL dose or 50 mcg/0.25mL dose 1 completed Not Available [facility] [place] [facility] 01/01/2023 16:06:44 Pneumococcal conjugate PCV20, polysaccharide KTA182 conjugate, adjuvant, PF 2 completed Not Available [facility] [place] [facility] 01/01/2023 16:06:44 pneumococcal polysaccharide PPV23 1 completed Not Available [facility] 01/01/2023 16:06:44 pneumococcal polysaccharide PPV23 7 completed Not Available [facility] [place] [facility] 01/01/2023 16:06:44 Influenza, split virus, quadrivalent, PF 9 completed Not Available [facility] 01/01/2023 16:06:44 Influenza, split virus, quadrivalent, PF 2 completed Not Available [facility] 01/01/2023 16:06:44 Influenza, split virus, quadrivalent, PF 8 completed Not Available [facility] 01/01/2023 16:06:44 influenza, unspecified formulation 4 completed Kary aguillon, [place] - [facility] - [place] & [place] 08/08/2024 13:51:39 Respiratory syncytial virus (RSV) MAB, unspecified 4 completed Araceli Velasquez null, [place] - [facility] - [place] & [place] 06/06/2024 09:21:15 Influenza, high-dose, quadrivalent, PF 3 completed Kary Rust null, [place] - [facility] - [place] & [place] 08/08/2024 13:51:39 RSV, recombinant, protein subunit RSVpreF, adjuvant reconstituted, 0.5 mL, PF 4 completed Kary Rust null, [place] - [facility] - [place] & [place] 08/08/2024 13:51:39 Influenza, high-dose, trivalent, PF 4 completed Kary Rust null, [facility] - [place] & [place] 08/08/2024 13:51:39 Past Encounters Encounter ID Performer Location Encounter Start Date Encounter Closed Date Diagnosis/Indication Diagnosis SNOMED-CT Code Diagnosis ICD10 Code Diagnosis Note [id number] Aden Husain, DNP, HADOOP ANALYST, SPECIAL INSPECTOR-C [facility] Bariatric s and Adv Surg [address] [facility] [address] [place] [address] 12/08/2024 08:48:35 12/08/2024 09:28:10 History of bariatric surgical procedure 590902672 Z98.84 Intentiona l weight loss 798725975 R63.8 History of gastrectomy 119358493 Z90.3 Advised qid intake 50% protein 8824-3985 calories/d y less than 100 carbs/dy Long [...] to correct any vitamin deficienci es. At [facility] risk of nutritional deficit 209471478 Z91.89 Dyslipidemia 253928918 E 78.5 Hypertensive disorder 38 618372 I10 Overweight 709013972 E66 .3 Health Concerns Section Related Observation LastModified by Organization Detai ls LastModified Time None Recorded Concern Status LastModified by Organization Details LastModified Time None Recorded Payers Encounter Date Sequence Insurance Name Policy Number Policy Acosta Covered Member ID Acosta Member ID Guarantor Name 12/08/2024 2 AARP (MEDICARE SUPPLEMENT) Maria Isabel Doran [id number] Maria Isabel Doran 12/08/2024 1 [place] Maria Isabel Doran [id number] Maria Isabel Doran Notes Date Note Type [...] = 1261 kilo calories Aden Husain, CAMMIE, HADOOP ANALYST, SPECIAL INSPECTOR-C [address] , [place], [address], [facility] - [place] - [place] & [place] 12/08/2024 09:20:24 OBGyn Episode No OBEpisode recorded.
[2025-01-07] MEDS: ERTAPENEM SODIUM 1 GM VIAL IV (13:53)
== END 2025-01-07 13:58 | disposition home or self-care (01) ==
LOC: INF 13:23
PROVIDERS: PCP Family Medicine; Visit Provider Family Medicine
DX: N12 Tubulo-interstitial nephritis, not specified as acute or chronic (principal)
CPT/HCPCS: 96372; J1335

== ENCOUNTER 2025-01-08 13:22 | Outpatient (CLI) | payer MEDICARE, SELFPAY ==
--- OUTSIDE RECORDS SUMMARY | 2024-12-30 05:30 | XMS_ITS ---
Author Organization [facility] Address [address] [facility] [address] [place] [phone] Care Team Providers Care Underwriting Intern Name Role Phone Jeyson Benitez Primary Care Provider China Sánchez Unavailable [phone] Results Component Value Reference Range Notes Urinalysis - Inhouse Reviewed date:01/02/2025 05:01:33 PM Interpretation: Performing Lab: Notes/Report: Color/Clarity yellow/cloudy Leuk 3+ Nitrite Neg Urobili 3.2 Protein 2+ pH 5.5 Blood 1+ Sp. Gr. 1.015 Ketone Trace Bili 1+ Gluc Neg P-Culture, Urine Reviewed date:01/02/2025 03:44:10 PM Interpretation:See duplicate order Performing Lab: Notes/Report: See duplicate order REASON FOR VISIT Urine sample Medications Medication SIG (Take, Route, Frequency, Duration) Notes Start Date End Date Status Venlafaxine HCl ER 225 MG TAKE 1 TABLET BY MOUTH ONCE DAILY WITH FOOD; Duration: 30 Active Cefdinir 300 MG 1 cap(s) Orally Two times a day; Duration: 10 days 12/29/2024 Active oxyBUTYnin Chloride ER 10 MG TAKE 1 TABLET BY MOUTH ONCE DAILY; Duration: 90 days Active lamoTRIgine 150 MG TAKE 1 TABLET BY TWICE DAILY; Duration: 90 Active Atorvastatin Calcium 40 MG TAKE 1 TABLET BY MOUTH ONCE DAILY; Duration: 90 Active SUMAtriptan Succinate 50 MG TAKE 1 TABLET BY MOUTH WITH ONSET OF HEADACHE. MAY REPEAT 1 TIME AFTER 2 HOURS. MAX 2 TABLETS IN 24 HOURS.; Duration: 12 days Active Pantoprazole Sodium 40 MG TAKE 1 TABLET BY MOUTH TWICE DAILY; Duration: 90 Active traZODone HCl 100 MG TAKE 1 TABLET BY MO UTH ONCE DAILY AT BEDTIME; Duration: 90 Active Estrace 0.1 MG/GM 1 gm Vaginal 3 times per week 07/13/2024 Active hydrOXYzine HCl 10 MG as directed Orally Two times a day; Duration: 90 days Active Calcium Citrate 150 MG 2 capsules Orally Once a day; Duration: 90 days Active QUEtiapine Fumarate ER 150 MG 1 tablet in the evening Orally Once a day Active Isosorbide Dinitrate 30 MG 1 tablet Orally once daily; Duration: 90 days Active Aspirin 81 MG 1 tab(s) orally once a day; Duration: 30 day(s) Active Melatonin 5 MG 1 tablet at bedtime as needed Orally qhs Active Nitroglycerin 0.4 MG 1 tab(s) sublingual ly q 5min prn x 3 Active Prolia 60 MG/ML as directed subcutaneously every 6 months; Duration: 12 month(s) Active Multivitamin - 1 tab(s) orally once a day w/ Iron Active CareTouch CPAP & BIPAP Hose 1 DIRECTED Active Vitamin D3 50 MCG (2000 UT) 1 tablet Orally Once a day; Duration: 30 day(s) Active LORazepam 1 MG 1 tablet at bedtime as needed Orally Once a day Active Baclofen 10 MG 1 tablet as needed O rally Twice a day Active Linzess 290 MCG 1 capsule at least 3 0 minutes before the first meal of the day on an empty stomach Orally Once a day; Duration: 30 day(s) Active Flonase Allergy Relief 50 MCG/ACT 1 spray in each nostril Nasally Twice a day Active Montelukast Sodium 10 MG 1 tablet Orally Once a day 02/29/2024 Active Encounters Encounter Location Date Provider Diagnosis [facility] [address] [place], [place] [phone] 12/30/2024 China Sánchez Dysuria R30.0 Assessments Encounter Date Diagnosis (ICD Code) Assessment Notes Treatment Notes Treatment Clinical Notes Section Notes 12/30/2024 Dysuria (ICD-10 - R30.0) Plan Of Treatment Next Appt Details Provider Name:Jeyson Smith, 01/16/2025 10:30:00 AM, [address], [place], [phone], Progress Notes * BURT DORANOB:[birth year] (69 yo F)Acc No.[id number]:12/30/2024 Patient: WENDY ESCAMILLA Provider: RANI Dumont :1955 A ge:69 Y S ex:Female Date:12/30/2024 Address:[address] [place] [address] , [id number] Pcp:Jeyson Benitez Subjective: * Chief Complaints: * 1 . Urine sample. * Medical History: * Medications: T aking Montelukast Sodium 10 [...] MOUTH ONCE DAILY WITH FOOD , Taking Cefdinir 300 MG Capsule 1 cap(s) Orally Two times a day , Discontinued Doxycycline Hyclate 100 MG Tablet 1 tablet Orally Two times a day , Medication List reviewed and reconciled with the patient Objective: * Vitals: Assessment: * Assessment: 1. D ysuria - R30.0 (Primary) Plan: * Treatment: Value Reference Range C olor/Clarity yellow/cloudy * L euk 3+ * N itrite Neg * U robili 3.2 * P rotein 2+ * p H 5.5 * B lood 1+ * S p. Gr. 1.015 * K etone Trace * B juanita 1+ * G ana maría Neg * Pamela Trujillo 12/30/2024 09:58: 46 AM EDT >Yahaira Guadalupe 01/02/2025 05:01:24 PM EDT > see OV ?LAB: P-Culture, Urine (Collection Date & Time - 01/02/2025)?See duplicate order* Yahaira Guadalupe 01/02/2025 01: 56:17 PM EDT > labs not picked up by [facility] on Wednesday. Recollected today. * Procedure Codes: 8 1002 Urinalysis, no micro * Images: Billing Information: * Visit Code: * Procedure Codes: 60044 Urinalysis, no micro. * Electronic signature of RANI Umanzor on 01/08/2025 at 01:26 PM EDT Sign off status: Pending * Provider: RANI Dumont Date: 0 12/30/2024 Generated for Elkin castillo/Aram/eTransmitting on: 01/08/2025 01:26 PM EDT
--- OUTSIDE RECORDS SUMMARY | 2025-01-02 05:30 | XMS_ITS ---
Author Organization [facility] Address [address] [place] [phone] Care Team Providers Care Research Chemist Name Role Phone Jeyson Benitez Primary Care Provider [phone] Allergies Allergen (clinical drug ingredient) Drug/Non Drug [...] Interpretation: Performing Lab: Notes/Report: Test performed by [facility] [address] [place] [address] , [address], [place] [address] Tim Parrish MD, Garage Worker CLIA: [id number] Specimen Source Urine - Void Culture, Urine See Below See Microbiol ogy Report Escherichia coli ESBL 50,000-100,000 CFU /ml Escherichia coli ESBL This isolate is a confirmed ESBL (Extended Spectrum Beta-Lactamase) companion and should be considered clinically resistant to [...] Provider Diagnosis [facility] [address] [place] [phone] 01/02/2025 Jeyson [place]fleet Flank pain, acute R10.10 ; Hematuria R31.9 and Adult general medical examination Z00.00 Assessments Encounter Date Diagnosis (ICD Code) Assessment Notes Treatment Notes Treatment Clinical Notes Section Notes 01/02/2025 Flank pain, acute (ICD-10 - R10.10) See the following phone encounter. Stat CT scan shows no hydronephrosis or stones. There is some mild stranding around the left kidney. May represent early pyelonephritis 01/02/2025 Hematuria (ICD-10 - R31.9) 01/02/2025 Adult general medical examination (ICD-10 - Z00.00) Patient instructed to return to office Annually for Annual Wellness Visits to include annual screenings of Pain assessment, Functional Ability assessment, Cognitive Ability assessment, Fall Risk assessment, Depression screening and Bladder control screening. Plan Of Treatment Treatment Notes Assessment Notes Flank pain, acute See the following ph one encounter. Stat CT scan shows no hydronephrosis or stones. There is some mild stranding around the left kidney. May represent early pyelonephritis Adult general medical examination Patien t instructed to return to office Annually for Annual Wellness Visits to include annual screenings of Pain assessment, Functional Ability assessment, Cognitive Ability assessment, Fall Risk assessment, Depression screening and Bladder control screening. Next Appt Details Follow Up: 2 days, Reason: Provider Name:Jeyson Munguia gianfranco, 01/16/2025 10:30:00 AM, [address] [facility] [address], [address], [place], [place], [phone], Progress Notes * BURT DORANOB:[birth year] (69 yo F)Acc No.[id number]:01/02/2025 Annual Wellness Visit Patient: WENDY ESCAMILLA Provider: Jeyson Benitez M.D. :1955 A ge:69 Y S ex:Female Date:01/02/2025 Address:[address] , [place], [id number] Subjective: * Chief Complaints: * 1 . [...] culture was dropped off Wednesday however, the shingle inspector canceled and did not pickle maker any labs. . G astroenterology: Pt is scheduled for a liver biopsy on 01/09/25 at [facility]. Ordered by Jonas Ball. 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 Cath showed on [...] Ball 11/2020. * Hospitalization/Major Diagno stic Procedure: [facility] ER-diarrhea 03/2011, [facility] ER-back pain 06/2012, [facility]-heart attack 12/31/2014, [place] ER-constipation/impaction 09/2015, [place] ER-diarrhea 11/2015, [place] ER-Bronchitis 03/2018, Drs office in [place]-possible UTI, tested negative 12/2019. * Family History: F ather: . M other: alive. 2 brother(s) , 1 sister(s) . 1 son(s) , 1 daughter(s) . . * Social History: C URRENT TOBACCO USE S moking Status: P atient does NOT smoke quit after [place] 12/2014.?Caffeine: yes, frequency:. Home smoke detector use: [...] s ignificant problems. Assessment: * Assessment: 1. F lank pain, acute - R10.10 (Primary) 2 . H ematuria - R31.9 ?3. A dult general medical examination - Z00.00 Plan: * Treatment: Value Reference Range C olor/Clarity straw * [...] AM EDT > no auth required through [facility] or [employer]; CPT code 59939; 01/02/2025 at 11am Notes: See the following phone encounter. Stat CT scan shows no hydronephrosis or stones. There is some mild stranding around the left kidney. May represent early pyelonephritis??2.?Hematuria?LAB: P-Culture, Urine (Collection Date & Time - 01/02/2025 10:16 AM)* Value Reference Range C ulture, Urine See Below - * S pecimen Source Urine - Void - * S ensitivity Panel See Below - * E scherichia coli ESBL 50,000-100,000 CFU/ml Escherichia coli ESBL - * Jass Sang Gunner 01/06/2025 08:19:51 PM EDT > Inpt results. [...] AM EDT > no auth required through M[facility] or [employer]; CPT code 11736; 01/02/2025 at 11am 3.?Adult general medical examination? Notes:Patient instructed to return to office Annually for Annual Wellness Visits to include annual screenings of Pain assessment, Functional Ability assessment, Cognitive Ability assessment, Fall Risk assessment, Depression screening and Bladder control screening.?? * Immunizations: PNEUMOVAX 23 VACCINE (Pending) * Procedure Codes: G 0439 ANNUAL WELLNESS VST; PPS SUBSQT VST, Modifiers: , G221 Complex e/m visit add on, 1090F PRES/ABSN URINE INCON ASSESS, 3288F FALL RISK ASSESSMENT DOCD, 1170F FXNL STATUS ASSESSED, 1126F AMNT PAIN NOTED NONE PRSNT, 1159F MED LIST DOCD IN RCRD, 1003F LEVEL OF ACTIVITY ASSESS, 1036F TOBACCO NON-USER, 3017F COLORECTAL CA SCREEN DOC REV, G9899 [place], [address] Urinalysis, no micro * Preventive Medicine: Counseling: E motional health: [...] * Images: Billing Information: * Visit Code: 59464 Office Visit, Est Pt., Level 3. * Procedure Codes: G0439 ANNUAL WELLNESS VST; PPS SUBSQT VST. Modifiers: G221 Complex e/m visit add on. 1090F PRES/ABSN URINE INCON ASSESS. 3288F FALL RISK ASSESSMENT DOCD. 1170F FXNL STATUS ASSESSED. 1126F AMNT PAIN NOTED NONE PRSNT. 1159F MED LIST DOCD IN RCRD. 1003F LEVEL OF ACTIVITY ASSESS. 1036F TOBACCO NON-USER. 3017F COLORECTAL CA SCREEN DOC REV. G9899 [place]. [address] Urinalysis, no micro. * Electronic signature of Jeyson Benitez MD on 01/08/2025 at 01:26 PM EDT Sign off status: Pending * Provider: Jeyson Benitez M.D. Date: 0 01/02/2025 Generated for Printi ng/Faxing/eTransmitting on: 0 01/08/2025 01:26 PM EDT History and Physical Notes * HPI (History of Present Illness) Category Sub-Category Detail Notes Category Not es Urology flank pain Pt c/o left side d flank pain. Pt was unable to provide good sample on 12/29 so a urine culture was dropped off Wednesday however, the shingle inspector canceled and did not pickle maker any labs. Physical Examination Category Sub-Category Detail [...]
--- OUTSIDE RECORDS SUMMARY | 2025-01-04 09:45 | XMS_ITS ---
Author [facility] Address [address] [facility] [address] [place] [id number] Care Team Providers Care Billing Associate Name Role Phone Jeyson Benitez Primary Care [...] lamoTRIgine 150 MG TAKE 1 TABLET BY [facility] TWICE DAILY; Duration: 90 Active Calcium Citrate 150 MG 2 capsules Orally Once a day; Duration: 90 days Active hydrOXYzine HCl 10 MG as directed Orally Two times a day; Duration: 90 days Active Estrace 0.1 MG/GM 1 gm Vaginal 3 times per week 07/13/2024 Active traZODone HCl 100 MG TAKE 1 TABLET BY [facility] ONCE DAILY AT BEDTIME; [...] 01/04/2025 Encounters Encounter Location Date Provider Diagnosis [facility] [address] [facility] [address], [place] [id number] 01/04/2025 R Foreign Benitez Pyelonephritis N12 Assessments Encounter Date Diagnosis (ICD Code) Assessment Notes Treatment Notes Treatment Clinical Notes Section Notes 01/04/2025 Pyelonephritis (ICD-10 - N12) She has failed to oral antibiotics. Plan for direct admission to [facility] for IV fluids and IV antibiotics. Plan Of Treatment Treatment Notes Assessment Notes Pyelonephritis She has failed to or al antibiotics. Plan for direct admission to [facility] for IV fluids and IV antibiotics. Next Appt Details Follow Up: After discharge, Reason: Provider Name:Jeyson Smith, 01/16/2025 10:30:00 AM, [address] [facility] [address] [facility], [address], [place], [place], [id number], Progress Notes * BURT DORANOB:[birth year] (69 yo F)Acc No.[id number]:01/04/2025 Progress Notes Patient: WENDY ESCAMILLA Provider: Jeyson Benitez M.D. :1955 A ge:69 Y S ex:Female Date:01/04/2025 Address:[address] [place] [address] , [place], [id number] Subjective: * Chief Complaints: * 1 . 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 Cath showed on [...] Ball 11/2020. * Hospitalization/Major Diagno stic Procedure: [facility] ER-diarrhea 03/2011, [facility] ER-back pain 06/2012, [facility]-heart attack 12/31/2014, [place] ER-constipation/impaction 09/2015, [place] ER-diarrhea 11/2015, [place] ER-Bronchitis 03/2018, Drs office in [place]-possible UTI, tested negative 12/2019. * Family History: F ather: . M other: alive. 2 brother(s) , 1 sister(s) . 1 son(s) , 1 daughter(s) . . * Social History: C URRENT TOBACCO USE S moking Status: P atient does NOT smoke quit after [place] 12/2014.?Caffeine: yes, frequency:. Home smoke detector use: [...] oral antibiotics. Plan for direct admission to [facility] for IV fluids and IV antibiotics.?? * Procedure Codes: 8 1002 Urinalysis, no micro * Follow Up: A fter discharge * Images: Billing Information: * Visit Code: 27569 Office Visit, Est Pt., Level 3. * Procedure Codes: 21517 Urinalysis, no micro. * Electronic signature of Jeyson Benitez MD on 01/08/2025 at 01:27 PM EDT Sign off status: Pending * Provider: Jeyson Benitez M.D. Date: 0 01/04/2025 Generated for Elkin castillo/Aram/Saritasmitting on: 0 01/08/2025 01:27 PM EDT History and Physical Notes * [...]
--- OUTSIDE RECORDS SUMMARY | 2025-01-08 13:26 | XMS_ITS | Continuity of Care Document ---
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 f/u 1 month [email or web address] Not available 12/27/2024 14:41:04 Plan of Treatment Reminders Order Date Submit Date Provider Last Modified By Organization Details Last Modified Time Details Appointments Establish ed Visit 15 min 2024 01:45P M Ernesto Amezcua PA-C Not available Not available Not available OV EST 20 2024 10:00A M Aden Husain, DNP, DIRECTOR PROSPECT, [employer]VIS[employer]-C Not available Not available Not available Lab None recorded. Referral None recorded. Procedures biopsy, liver (PROC) - CT or US guidance, depending on radiologi st's preferenc e 2024 025 [facility] [address], [address] [place], [address], 12/27/2024 14:50:48 Surgeries None recorded. Imaging None recorded. Medication Orders None recorded. Patient TargetsNo targets recorded. Patient InstructionsNo instructions recorded. Reason for Referral None Reported. Problems Name Problem SNOMED Code Status Onset Date Resolution Date Notes Provider Name and Address Organization Details Recorded Time Metabolic dysfuncti on-associ ated steatohep atitis 723706399 Active 2023 Ernesto Amezcua PA-C [address] [facility], [place], [address] , [facility] - [facility] & [place] 5 14:30:35 Gastroeso phageal reflux disease without esophagit is 555736702 Active 2023 Ernesto Amezcua PA-C [address] [facility], [place], [address] , [place] - [facility] & [place] 4 13:48:57 Chronic idiopathi c constipat ion 12230312 Active 2021 Not Available [facility] 3 16:06:44 Gastroeso phageal reflux disease 148659580 Active 2021 Not Available [facility] 3 16:06:44 Diarrhea 10959386 Active 2021 Not Available [facility] 3 16:06:44 Hypokalem ia 28118660 Active 2021 Not Available [facility] 3 16:06:44 Abdominal pain 00083394 Active 2021 Not Available [facility] 3 16:06:44 Myocardia l infarctio n 84789254 Completed 202103/25/2022 Azeb Quesada null, [place] - [facility] - [place] [facility] [place] 2 14:37:03 Fibromyal dominique 419819778 Active 2021 Not Available [facility] 3 16:06:44 Mild dementia 16530717864 4108 Active 2021 Not Available [facility] 3 16:06:44 Chronic obstructi ve pulmonary disease 47522729 Active 2021 Not Available [facility] 3 16:06:44 Hiatal hernia 31491838 Completed 202103/25/2022 Azeb Quesada null, [place] - [facility] - [place] [facility] [place] 2 14:38:57 Chronic depressio n 818726953 Active 2021 Not Available [facility] 3 16:06:44 Obesity 483473375 Active 2021 Ernesto Amezcua PA-C [address] [facility], [place], [address] , [place] - [facility] [place] [facility] [place] 2 14:51:36 Hypertens silvino disorder 03761646 Active 2022 Not Available [facility] 3 16:06:44 Dyslipide franc 211947506 Active 2022 Not Available [facility] 3 16:06:44 Morbid obesity 730497184 Active 2022 Not Available [facility] 3 16:06:44 Dizziness 273692970 Active 2022 Not Available [facility] 3 16:06:44 Intention al weight loss 801145889 Active 2022 Not Available [facility] 3 16:06:44 Constipat ion 97578182 Active 2022 Ernesto Amezcua PA-C [address], [place], [place], [address] [place] [address] , [place] - [facility] - [place] [facility] [place] 3 15:41:42 Overweigh t 733895636 Active 2023 Aden Husain DNP, DIRECTOR PROSPECT, SUPER[employer]-C [address], [place], [place], [address] [place] [address] , [place] [facility] - [place] [facility] [place] 4 09:57:50 Fatigue 14239404 Active 2023 Aden Husain DNP, DIRECTOR PROSPECT, SU[employer]-C [address], [place], [place], [address] [place] [address] , [place] [facility] [place] [facility] [place] 4 10:00:39 Liver enzymes level above reference range 785126618 Active 2023 Aden Husain DNP, DIRECTOR PROSPECT, SUPER[employer] [address], [place], [place], [address] [place] [address] , [place] [facility] [place] [facility] [place] 4 13:32:45 Low back pain 896914929 Active 2023 Aden Husain DNP, DIRECTOR PROSPECT, SUPER[employer] [address], [place], [address] [place] [address] , [place] [facility] [place] [facility] [place] 4 15:56:35 Irritable bowel syndrome character ized by constipat ion 070934870 Active 2023 Ernesto Amezcua PA-C [address], [place], [place], [address] [place] [address] , [place] - [facility] - [place] [facility] [place] 4 09:08:46 Problem Notes None recorded. Procedures Surgical History Date Name Laterality Status Provider Name and Address Organization Details Recorded Time 07/23/[address], [place] [address], [place], [address], [place] [facility] [place] [facility] [place] 08/14/2022 16:17:22 05/28/20 21 Date of Last Pap Smear completed RIMMA JOSEROSA RAY RD, LD [address] [facility], [place], [address], [facility] & [place] 08/14/2022 16:17:22 12/20/19 21 Date of Last Colonoscopy completed RIMMA JOSEROSA RAY RD, LD [address], [place], [address], [facility] & [place] 08/14/2022 16:17:22 11/17/19 20 Most Recent Bone Density completed RIMMA JOSEROSA RAY RD, LD [address] [facility], [place], [address], [facility] & [place] 08/14/2022 16:17:22 Appendectomy completed Not Available [facility] 13:08:39 extraction of wisdom tooth completed Not Available [facility] 08/10/2022 13:08:39 lithotripsy completed Not Available [facility] 07/14 13:08:39 Colonoscopy completed Marychuy Quesada [facility] & [place] 08/13/2022 11:21:25 EGD completed Marychuy Quesada [facility] & [place] 08/13/2022 11:21:36 Gastric Bypass completed Dipesh Dow [facility] & [place] 12/29/2022 08:20:27 Imaging Results None recorded. Procedure Notes None recorded. Medical Equipment None Reported. Allergies Allergen ID Allergen Name Allergen Category Reaction Reaction Severity Criticality Documentation Date Start Date Code Code System Note Provider Name and Address Organization Details Recorded Time 61309 Product containin g penicilli n (product) medicatio n Not available Not available Not available 03/25/2022 64011 8001 [facility]ED [facility] [place] 14:01:10 757023 indometha gen medicatio n Not available Not available Not available 06/19/2024 5781 RxNorm Other react ions and sever ities : 'Adve rse react ion to subst ance' . Kary aguillon, [place] [facility] & [place] 4 14:05:45 558722 penicilli n V Not available Not available Not available Not available 06/19/2024 7984 RxNorm Other react ions and sever ities : 'Anap hylax is due to subst ance' . Kray Rust null, [place] [facility] & [place] 4 14:05:45 361013 milnacipr an medicatio n Not available Not available Not available 06/19/2024 20605 0 RxNorm Other react ions and sever ities : 'Adve rse react ion to subst ance' . Kary Rust null, [place] [facility] & [place] 4 14:05:45 23795 Savella medicatio n Not available Not available Not available 08/13/2022 67499 6 RxNorm Marychuy Quesada null, [facility] & [place] 3 11:18:57 Medications Name Sig Start Date [...] Updated DateTime 12/27/2024 162.56 cm 24.7 kg/m2 68331.58 g 98.4 [degF] 97 /min Ernestine Laguerre [facility] & [place] 14:16:54 Social History Question Answer Notes LastModified by Organizat ion Details LastModified Time Tobacco Smoking Status Former Smoker quit 3 years ago Araceli aguillon, [facility] & [place] 09/06/2023 09:49:34 Do You Have An Advance Directive? No [email or web address] Information not available 08/14/2022 Are You Blind Or Do You Have Difficulty Seeing? No [email or web address] Information not available 08/14/2022 What Was The Date Of Your Most Recent Tobacco Screening? 08/10/2022 [email or web address] Information not available 08/14/2022 Are You Passively Exposed To Smoke? No [email or web address] Information not available 08/14/2022 How Much Tobacco Do You Smoke? No [email or web address] Information not available 08/14/2022 Sex: Male Functional Status Question Answer Note LastModified by [employer] Details LastModified Time Do you use any illicit or recreational drugs? No [email or web address] Information not available 08/10/2022 What is your level of alcohol consumption? None [email or web address] Information not available 08/10/2022 Do you or have you ever used smokeless tobacco? Never used smokeless tobacco [email or web address] Information not available 08/14/2022 What is your exercise level? None [email or web address] Information not available 08/14/2022 Mental Status Question Answer Note LastModified by Organization D etails LastModified Time Do you feel stressed (tense, restless, nervous, or anxious, or unable to sleep at night)? NH1500-5 [email or web address] Information not available 08/14/2022 Family History Relationship Description Onset Age of this Age Resolved Age Notes LastModified by Organization Details LastModified Time Father Obesity [email or web address] Not availa ble 08/10/2022 08:30:50 Father Diabetes mellitus [email or web address] Not available 2024 14:11:10 Father Hypertensive disorder [email or web address] Not available 08:31:23 Father Heart disease [email or web address] Not available 08:31:48 Father Cerebrovascu lar accident [email or web address] Not available 08/10/2022 08:32:04 Father Hypercholest erolemia [email or web address] Not available 08:32:27 Father Asthma [email or web address] Not available 12/27/2024 14:11:10 Father Allergy pt. added direct ly (08/10) [email or web address] Not available 08/10/2022 13:04:20 Father Disorder of endocrine system pt. added direct ly (08/10) [email or web address] Not available 08/10/2022 13:07:54 Maternal Grandmother Obesity [email or web address] Not available 0 08/10/2022 08:30:50 Maternal Grandmother Hypertensive disorder [email or web address] Not available 08:31:23 Maternal Grandmother Heart disease [email or web address] Not available 08:31:49 Mother Hypertensive disorder [email or web address] Not available 08:31:23 Mother Heart disease [email or web address] Not available 08:31:48 Mother Cerebrovascu lar accident [email or web address] Not available 08/10/2022 08:32:04 Mother Hypercholest erolemia [email or web address] Not available 08:32:27 Mother Allergy pt. added direct ly (08/10) [email or web address]-13 Not available 08/10/2022 13:04:20 Brother Hypertensive disorder [email or web address] Not available 08:31:23 Brother Heart disease [email or web address] Not available 08:31:49 Brother Hypercholest erolemia [email or web address] Not available 08:32:27 Brother Cerebrovascu lar accident pt. added direct ly (09/03) [email or web address]-13 Not available 09/03/2023 11:07:40 Sister Hypertensive disorder Not available 08:31:23 Sister Hypercholest erolemia [email or web address] Not available 08:32:27 Maternal Grandfather Heart disease [email or web address] Not available 08:31:49 Maternal Uncle Allergy pt. added direct ly (08/10) [email or web address]-13 Not available 08/10/2022 13:04:20 Paternal Grandmother Obesity pt. added direct ly (08/10) [email or web address]-13 Not available 08/10/2022 13:08:19 Medical History Condition Response Other Y Gout N Kidney Stones Y Depression Y COPD Y Osteoporosis/Osteopenia Y Constipation Y Spine Problems Y Heart Attack (DE) Y Obstructive Sleep Apnea Y Anxiety Disorder [...] virus, quadrivalent, preservative 7 completed Not Available [facility] 01/01/2023 16:06:44 Influenza, recombinant, quadrivalent, PF 1 completed Not Available [facility] 01/01/2023 16:06:44 Influenza, recombinant, quadrivalent, PF 0 completed Not Available [facility] 01/01/2023 16:06:44 zoster recombinant 1 completed Not Available [facility] 01/01/2023 16:06:44 zoster recombinant 1 completed Not Available [facility] 01/01/2023 16:06:44 MMR 6 completed Not Available [facility] 01/01/2023 16:06:44 COVID-19, mRNA, LNP-S, PF, 100 mcg/0.5mL dose or 50 mcg/0.25mL dose 1 completed Not Available [facility] 01/01/2023 16:06:44 COVID-19, mRNA, LNP-S, PF, 100 mcg/0.5mL dose or 50 mcg/0.25mL dose 1 completed Not Available [facility] 01/01/2023 16:06:44 COVID-19, mRNA, LNP-S, PF, 100 mcg/0.5mL dose or 50 mcg/0.25mL dose 1 completed Not Available [facility] 01/01/2023 16:06:44 Pneumococcal conjugate PCV20, polysaccharide AHZ443 conjugate, adjuvant, PF 2 completed Not Available [facility] 01/01/2023 16:06:44 pneumococcal polysaccharide PPV23 1 completed Not Available [facility] 01/01/2023 16:06:44 pneumococcal polysaccharide PPV23 7 completed Not Available [facility] 01/01/2023 16:06:44 Influenza, split virus, quadrivalent, PF 9 completed [facility] Available [facility] 01/01/2023 16:06:44 Influenza, split virus, quadrivalent, PF 2 completed Not Available [facility] 01/01/2023 16:06:44 Influenza, split virus, quadrivalent, PF 8 completed Not Available [facility] 01/01/2023 16:06:44 influenza, unspecified formulation 4 completed Kary Rust null, [place] - [facility] [place] [facility] [place] 08/08/2024 13:51:39 Respiratory syncytial virus (RSV) MAB, unspecified 4 completed Araceli Velasquez null, [place] [facility] [place] [facility] [place] 06/06/2024 09:21:15 Influenza, high-dose, quadrivalent, PF 3 completed Kary Rust null, [place] [facility] [place] [facility] [place] 08/08/2024 13:51:39 RSV, recombinant, protein subunit RSVpreF, adjuvant reconstituted, 0.5 mL, PF 4 completed Kary Rust null, [place] [facility] [place] [facility] [place] 08/08/2024 13:51:39 Influenza, high-dose, trivalent, PF 4 completed Kary aguillon, [place] - [facility] - [place] [facility] [place] 08/08/2024 13:51:39 Past Encounters Encounter ID Performer Location Encounter Start Date Encounter Closed Date Diagnosis/Indication Diagnosis SNOMED-CT Code Diagnosis ICD10 Code Diagnosis Note [id number] Aden Husain, DNP, DIRECTOR PROSPECT, SUPERVISOR [employer]-C [facility] Bariatric s and Adv Surg [address] [facility] [address] [facility] [place] [address] 12/08/2024 08:48:35 12/08/2024 09:28:10 History of bariatric surgical procedure 136591188 Z98.84 Intentiona l weight loss 119611581 R63.8 History of gastrectomy 627907196 Z90.3 Advised qid intake 50% protein 8360-4696 calories/d y less than 100 carbs/dy Long [...] any vitamin deficienci es. At [facility] ed risk of nutritional deficit 503924723 Z91.89 Dyslipidemia 345529967 E 78.5 Hypertensive disorder 38 972144 I10 Overweight 690626784 E66 .3 [id number] Ernesto Amezcua PA-C [facility] [address] [place] [address] 12/27/2024 14:10:09 12/27/2024 14:38:18 Liver enzymes level above reference range 927903187 R74.01 Metabolic dysfunction-associate d steatohepatitis 081878569 K75.81 Gastroesop hageal reflux disease without esophagitis 578312502 K21.9 Chronic id iopathic constipation 13887505 K59.04 History of colonoscopy 9641022412 09 Z98.890 Health Concerns Section Related Observation LastModified by Organization Detai ls LastModified Time None Recorded Concern Status LastModified by Organization Details LastModified Time None Recorded Payers Encounter Date Sequence Insurance Name Policy Number Policy Acosta Covered Member ID Acosta Member ID Guarantor Name 12/27/2024 2 [employer] (MEDICARE SUPPLEMENT) Maria Isabel Doran [id number] Maria Isabel Doran 12/27/2024 1 [place] Maria Isabel Doran [id number] Maria Isabel Doran Notes Date Note Type [...] overall at this time. Ernesto Amezcua PA-C [address], [place], [address], [facility] - [facility] - [place] [facility] [place] 12/27/2024 14:41:34 OBGyn Episode No OBEpisode recorded.
--- OUTSIDE RECORDS SUMMARY | 2025-01-08 13:26 | XMS_ITS | Patient Health Record ---
[facility] Organization [facility] [address] [facility] [address] [place] [id number] Care Team Providers Care Computer Art Instructor Name Role Phone Jeyson Benitez Primary Care Provider Sang Regan Unavailable [phone] Marlena Antonio Unavailable [phone] China Sánchez Unavailable [phone] Allergies Allergen (clinical drug ingredient) Drug/Non Drug Allergy documented on EMR Reaction Allergy Type Onset Date Status indomethacin Indomethacin disoriented Drug Allergy Active milnacipran Savella memory loss and excessive drowsiness Drug Allergy Active Penicillin anaphylaxis Drug Allergy Acti ve Results Component Value Reference Range Notes CXR Reviewed date:01/02/2025 12:54:22 AM Interpretation: Performing Lab: Notes/Report: H-CBC Reviewed date:01/06/2025 08:21:22 PM Interpretation: Performing [...] 0.1 0-0.2 K/mm3 NRBC# 0 IG# 0.58 H-Culture, Blood Reviewed date:01/06/2025 08:19:38 PM Interpretation: Performing Lab: Notes/Report: CUBLD NO GROWTH AFTER 48 HOURS CUBLD NO GROWTH AFTER 48 HOURS P-Vitamin B1 (Thiamine), Ser um/Plasma, LC/MS/MS Reviewed [...] developed and its performance characteristics determined by [facility]. It has not been cleared or approved by the US Food and Drug Administration. This test was performed in a CLIA certified laboratory and is intended for clinical purposes. Performed By: [facility] [address] [place] [address] Senior Microsoft Net Developer: Cesar Arnold MD, PhD CLIA Number: [id number] Urinalysis - Inhouse Reviewed date:01/04/2025 11:41:11 PM Interpretation: Performing Lab: Notes/Report: Color/Clarity yellow Leuk trace Nitrite neg Urobili 3.2 Protein trace pH 5.5 Blood neg Sp. Gr. 1.020 Ketone neg Bili neg Gluc neg P-Culture, Urine Reviewed date:01/06/2025 08:21:23 PM Interpretation: Performing Lab: Notes/Report: Test performed by [facility], [place] [address] [place] [address] , [address], [place] [address] Tim Parrish MD, Senior [employer] Net Developer CLIA: [id number] Specimen Source Urine - Void Culture, Urine See Below See Microbiol ogy Report Escherichia coli ESBL 50,000-100,000 CFU /ml Escherichia coli ESBL This isolate is a confirmed ESBL (Extended Spectrum Beta-Lactamase) promotion producer and should be considered clinically resistant [...] Bili neg Gluc neg P-Culture, Urine Reviewed date:01/02/2025 03:44:10 PM Interpretation:See duplicate order Performing Lab: Notes/Report: See duplicate order Urinalysis - Inhouse Reviewed date:01/02/2025 05:01:33 PM Interpretation: Performing Lab: Notes/Report: Color/Clarity yellow/cloudy Leuk 3+ Nitrite Neg Urobili 3.2 Protein 2+ pH 5.5 Blood 1+ Sp. Gr. 1.015 Ketone Trace Bili 1+ Gluc Neg CBC Fingerstick (in house) Reviewed date:08/28/2024 08:12:23 [...] - 400 CBC Fingerstick (in house) Reviewed date:07/13/2024 11:31:19 [...] date:06/29/2024 10:43:05 AM Interpretation: Performing Lab: Notes/Report: Estimated Average Glucose Reviewed date:06/29/2024 04:17:23 PM Interpretation:Normal Performing Lab: Notes/Report: Test performed by [facility] [address] [place] [address] , [address], [place] [address] Tim Parrish MD, Senior [employer] Net Developer CLIA: [id number] Estimated Average Glucose (eAG) 108 Estimated Average [...] or iron, eAG should not be evaluated. P-Zinc, Serum/Plasma Reviewed date:06/29/2024 04:17:23 PM Interpretation:Normal Performing Lab: Notes/Report: Zinc, Serum/Plasma 98 60-130 mcg/dL Test developed and its analytical performance characteristics have been determined by [facility] [place]. It has not been cleared or approved by the U.S. Food and Drug Administration. This assay has been validated pursuant to the CLIA regulations and is used for clinical purposes. Test Performed By [facility] , CLIA [id number] [facility], Filipe Meier MD PhD P-Vitamin B1 (Thiamine), Ser um/Plasma, LC/MS/MS Reviewed date:06/29/2024 04:17:23 PM Interpretation:Normal Performing Lab: Notes/Report: Test Cancelled Test Cancelled TNP - Incor rect Specimen. Unable to perform due to incorrect specimen submission P-Vitamin D 25-Hydroxy Reviewed date:06/29/2024 04:17:23 PM Interpretation:Normal Performing Lab: Notes/Report: Test performed by [facility] [address] [place] [address] , [address], [place] [address] Tim Parrish MD, Senior [employer] Net Developer CLIA: [id number] Vitamin D 25-Hydroxy 65.0 30.0-100.0 ng/mL Interpretation [...] Interpretation:Normal Performing Lab: Notes/Report: Test performed by [facility] [address] , [place] [address] Tim Parrish MD, Senior [employer] Net Developer CLIA: [id number] TSH 1.08 0.43-5.25 mU/L Percent Saturation Reviewed date:06/29/2024 04:17:23 PM Interpretation:Normal Performing Lab: Notes/Report: Test performed by [facility] [address] [place] [address] , [place] [address] Tim Parrish MD, Senior [employer] Net Developer CLIA: [id number] Percent Saturation 29 15-50 % P-Prealbumin Reviewed date:06/29/2024 04:17:23 PM Interpretation:Normal Performing Lab: Notes/Report: Test performed by [facility] [address] [place] [address] , [place] [address] Tim Parrish MD, Senior [employer] Net Developer CLIA: [id number] Prealbumin 21.0 20.0-40.0 mg/dL P-MMA Serum/Plasma, Vitamin B12 Status Reviewed date:06/29/2024 04:17:23 PM Interpretation:Normal Performing Lab: Notes/Report: MMA Serum/Plasma, Vitamin B12 Status 0.15 0.00-0.40 umol/L INTERPRETIVE INFORMATION: MMA Serum/Plasma, Vitamin B12 Status This test was developed and its performance characteristics determined by [facility]. It has not been cleared or approved by the US Food and Drug Administration. This test was performed in a CLIA certified laboratory and is intended for clinical purposes. Performed By: [facility] [address] [place] [address] Senior [employer] Net Developer: Cesar Arnold MD, PhD CLIA Number: [id number] Miscell Ref Lab Test Reviewed date:06/29/2024 10:43:23 AM Interpretation: Normal Performing Lab: Notes/Report: Test Cancelled Test Cancelled Other P-Lipid Panel Reviewed date:06/29/2024 04:17:23 PM Interpretation:Normal Performing Lab: Notes/Report: Test performed by [facility], [address] , [address], [place] [address] Tim Parrish MD, Senior [employer] Net Developer CLIA: [id number] Cholesterol 125 <200 mg/dL Triglycerides 82 <150 [...] Interpretation:Normal Performing Lab: Notes/Report: Test performed by [facility] [address] [place] [address] , [place] [address] Tim Parrish MD, Senior [employer] Net Developer CLIA: [id number] Iron 99 37-145 ug/dL P-Iron Binding Cap Reviewed date:06/29/2024 04:17:23 PM Interpretation:Normal Performing Lab: Notes/Report: Test performed by [facility] [address] , [facility] [address], [place] [address] Tim Parrish MD, Senior [employer] Net Developer CLIA: [id number] Iron Binding Cap 344 250-450 ug/dL P-Hemoglobin A1C Reviewed date:06/29/2024 04:17:23 PM Interpretation:Normal Performing Lab: Notes/Report: Test performed by [facility] [address] [place] [address] , [address], [place] [address] Tim Parrish MD, Senior [employer] Net Developer CLIA: [id number] Hemoglobin A1C 5.4 <5.7 % The following HbA1c ranges recommended by the [place] Diabetes [employer] (ADA) may be used as an aid in the diagnosis of diabetes mellitus. HbA1c Suggested Diagnosis >=6.5% Diabetic 5.7% - 6.4% Pre-Diabetic <5.7% Non-Diabetic P-T4 Free (thyroxine) Reviewed date:06/29/2024 04:17:23 PM Interpretation:Normal Performing Lab: Notes/Report: Test performed by [facility] [address] [place] [address] , [place] [address] Tim Parrish MD, Senior [employer] Net Developer CLIA: [id number] Thyroxine Free (free T4) 0.94 0.86-1.76 ng/dL P-Ferritin Reviewed date:06/29/2024 04:17:23 PM Interpretation:Normal Performing Lab: Notes/Report: Test performed by [facility] [address] [place] [address] , [place] [address] Tim Parrish MD, Senior [employer] Net Developer CLIA: [id number] Ferritin 25.1 13.0-301.0 ng/mL P-Selenium, Serum/Plasma Reviewed [...] developed and its performance characteristics determined by [facility]. It has not been cleared or approved by the US Food and Drug Administration. This test was performed in a CLIA certified laboratory and is intended for clinical purposes. Performed By: [facility] [address] [place] [address] Senior [employer] Net Developer: Cesar Arnold MD, PhD CLIA Number: [id number] P-Folate Reviewed date:06/29/2024 04:17:23 PM Interpretation:Normal Performing Lab: Notes/Report: Test performed by [facility] [address] [place] [address] , [facility] [place] [address] Tim Parrish MD, Senior [employer] Net Developer CLIA: [id number] Folate >20 >4.59 ng/mL P-Copper Reviewed date:06/29/2024 [...] developed and its performance characteristics determined by [facility]. It has not been cleared or approved by the US Food and Drug Administration. This test was performed in a CLIA certified laboratory and is intended for clinical purposes. Performed By: [facility] [address] [place] [address] Senior [employer] Net Developer: Cesar Arnold MD, PhD CLIA Number: [id number] P-Comprehensive Metabolic Pa suzanne (CMP) Reviewed date:06/29/2024 04:17:23 PM Interpretation:bun 28, alt 81, ast 51 Performing Lab: Notes/Report: Test performed by [facility] [address] [place] [address] , [place] [id number] Tim Parrish MD, Senior [employer] Net Developer CLIA: [id number] Sodium 139 135-145 mmol/L Potassium 4.9 3.5-5.3 [...] Interpretation:Normal Performing Lab: Notes/Report: Test performed by [facility], [address] , [place] [address] Tim Parrish MD, Senior [employer] Net Developer CLIA: [id number] WBC 6.1 3.8-11.5 K/uL Red Blood Cell [...] Normal glycohemoglobin 5.3% 5 - 6.5 % CT Scan : Abd and Pelvis, st one protocol Reviewed date:01/03/2025 12:11:45 PM Interpretation: Performing Lab: Notes/Report: H-BMP Reviewed date:01/06/2025 08:21:23 PM Interpretation: Performing Lab: Notes/Report: NA 143 136-145 mmol/L K 3.9 3.5-5.1 mmoL/L CL 106 98-107 mmol/L CO2 28 22.0-30.0 mmol/L GAP 12.9 5-15 mEq/L BUN 18 7-17 mg/dl CREATT 0.70 0.52-1.04 mg/dl CRCLE 58 50-200 mL/min GFRAA 101 >60 ML/MIN EGFR 83 >60 ml/min GLU 88 74-100 mg/dl CA 8.4 8.4-10.2 mg/dl H-DIFF Reviewed date:01/06/2025 08:21:22 PM Interpretation: Performing [...] 149 on 01/04/25 CA 8.5 8.4-10.2 mg/dl H-DIFF Reviewed date:01/05/2025 08:49:49 AM Interpretation: Performing Lab: Notes/Report: QUIN MANUAL DIFFERENTIAL MANUAL DIFF TCC 100 NEUT%M 59 42-76 % LYMPH%M 30 10-50 % MONO%M 10 2-9 % EOS%M 1 0-3 % PLTE Normal RM Normal H-CBC Reviewed date:01/05/2025 08:49:49 AM Interpretation: Performing Lab: Notes/Report: WBC 8.6 4.8-10.8 K/mm3 Delta: 11.5 o n 01/04/25-1801 RBC 4.23 4.20-5.40 M/mm3 HGB 12.3 12.2-16.2 [...] 0.1 0-0.2 K/mm3 NRBC# 0 IG# 0.81 H-Lactic Acid Reviewed date:01/04/2025 11:41:11 PM Interpretation: Performing Lab: Notes/Report: Comment Repeat 2nd or 3rd lactic acid to reflex if initial or subseq level > 2 LACTIC 0.6 0.7-2.1 mmol/L H-CMP Reviewed date:01/04/2025 11:41:11 PM Interpretation: Performing [...] AGRATIO 1.1 1.1-1.8 ALP 147 38-126 U/L H-DIFF Reviewed date:01/04/2025 11:41:11 PM Interpretation: Performing Lab: Notes/Report: QUIN MANUAL DIFFERENTIAL MANUAL DIFF TCC 100 NEUT%M 62 42-76 % LYMPH%M 24 10-50 % RG% 1.0 MONO%M 9 2-9 % EOS%M 4 0-3 % PLTE Normal POLC 1+ POIK 1+ TGT 1+ H-CBC Reviewed date:01/04/2025 11:41:11 PM Interpretation: Performing [...] 0.1 0-0.2 K/mm3 NRBC# 0 IG# 0.88 Covid test (in house) Reviewed date:01/03/2025 12:11:45 PM Interpretation:neg Performing Lab: Notes/Report: neg Result: neg CBC Fingerstick (in house) Reviewed date:01/03/2025 [...] 100 - 400 Influenza Screen (in house) Reviewed date:01/03/2025 12:11:45 [...] - 38 plat 215 100 - 400 Medications Medication SIG (Take, Route, Frequency, Duration) [...] W/U Status Risk Notes Problem Essential hypertension (74085986) Essential (primary) hypertension (I10) Active confirmed Problem History of circulatory system disease (245249002) History of ASCVD (Z86.79) Active confirmed Problem COPD - Chronic obstructive pulmonary disease (74488611) COPD (chronic obstructive pulmonary disease) (J44.9) Active confirmed Problem Acute exacerbation of chronic obstructive airways disease (140369663) COPD with exacerbation (J44.1) Active confirmed Problem Osteopenia (235479702) Osteopenia (M85.80) Active confirmed Problem Seasonal allergy (902869102) Seasonal allergies (J30.2) Active confirmed Problem Mixed anxiety and depressive disorder (231678556) Depression with anxiety (F41.8) Active confirmed Problem Overactive urinary bladder (disorder) (391420009) OAB (overactive bladder) (N32.81) Active confirmed Problem Memory loss (31246280) Memory loss (R41.3) Active confirmed Problem Fibromyalgia (979318878) Fibromyalgia (M79.7) Active confirmed Problem Vasomotor rhinitis (1836620) Vasomotor rhinitis (J30.0) Active confirmed Problem Irritable bowel syndrome with diarrhea (310873896) Irritable bowel syndrome with diarrhea (K58.0) Active confirmed Problem Migraine without aura, not refractory (479908586) Migraine without aura and without status migrainosus, not intractable (G43.009) Active confirmed Problem Atrophic vaginitis (50154448) Atrophic vaginitis (N95.2) Active confirmed Problem Sacroiliitis (09790203) Sacroiliitis (M46.1) Active confirmed Problem Dependence on supplemental oxygen (344420317436) Oxygen dependent (Z99.81) Active confirmed Problem Dyslipidemia (865425428) Dyslipidemia (E78.5) Active confirmed Problem Allergic rhinitis caused by pollen (33525308) Seasonal allergic rhinitis due to pollen (J30.1) Active confirmed Problem Degenerative disc disease (60719610) DDD (degenerative disc disease), lumbar (M51.36) Active confirmed Problem 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) Active confirmed Problem Malabsorption syndrome (73088306) Malabsorption due to intolerance, not elsewhere classified (K90.49) Active confirmed Problem Personal history of tobacco use (Z87.891) Active confirmed Problem Degeneration of thoracic intervertebral disc (45831562) DDD (degenerative disc disease), thoracic (M51.34) Active confirmed Vital Signs Heart Rate 86 /min 01/04/2025 Blood pressure diastolic 70 mm Hg 01/02/2025 Height 65 in 01/04/2025 Blood pressure systolic 102 mm Hg 01/02/2025 Weight 141.6 lbs 01/04/2025 BMI 23.56 kg/m2 01/04/2025 Encounters Encounter Location Date Provider Diagnosis [facility] [address] [facility] [address] [place], [place] [id number] 02/03/2024 China Sánchez Non-seasonal allergi c rhinitis, unspecified trigger J30.89 ; Benign paroxysmal positional vertigo due to bilateral vestibular disorder H81.13 and Symptomatic hypotension I95.9 [facility] [address] [facility] [address] [place], [place] [id number] 02/29/2024 R Foreign Emmanuel Fibromyalgia M79.7 a nd Seasonal allergies J30.2 [facility] [address] [place] [id number] 03/30/2024 R Foreign Emmanuel Vaginal yeast infect ion B37.31 and Abnormal thyroid function test R94.6 [facility] [address] [facility] [address] [place] [id number] 04/27/2024 R Foreign Emmanuel Seasonal allergies J30.2 and Fibromyalgia M79.7 [facility] [address] [facility] [address] [place], [place] [id number] 06/22/2024 R Foreign Emmanuel Fibromyalgia M79.7 ; Malabsorption due to intolerance, not elsewhere classified K90.49 ; Status post bariatric surgery Z98.84 ; Dyslipidemia E78.5 ; Vaginal yeast infection B37.31 and Hypoglycemia E16.2 [facility] [address] [facility] [address] [place] [id number] 06/26/2024 Sang Corfu Malabsorption due to intolerance, not elsewhere classified K90.49 [facility] [address] [facility] [address] [place], [place] [id number] 07/13/2024 R Foreign Emmanuel URI (upper respirato ry infection) J06.9 and Atrophic vaginitis N95.2 [facility] [address] [facility] [address] [place] [id number] 07/25/2024 R Foreign Emmanuel Palpitations R00.2 [facility] [address] [facility] [address] [place] [id number] 08/28/2024 Marlena Antonio Sinusitis J32.9 and Papules R23.8 [facility] [address] [facility] [address] [place], [place] [id number] 10/19/2024 R Foreign Emmanuel Acute bronchitis J20 .9 ; COPD (chronic obstructive pulmonary disease) J44.9 ; Dyslipidemia E78.5 ; Seasonal allergies J30.2 and BMI 24.0-24.9, adult Z68.24 [facility] [address] [facility] [address] [place] [id number] 12/29/2024 China Crowdy Hypoxia R09.02 ; Dysuria R30.0 ; Chills R68.83 and BMI 24.0-24.9, adult Z68.24 [facility] [address] [place], [place] [id number] 12/30/2024 China Crowdy Dysuria R30.0 [facility] [address] [place], [place] [id number] 01/02/2025 R Foreign Emmanuel Flank pain, acute R10.10 ; Hematuria R31.9 and Adult general medical examination Z00.00 [facility] [address] [place], [place] [id number] 01/04/2025 R Foreign Emmanuel Pyelonephritis N12 [facility] [address] [place], [place] [id number] 02/16/2024 R Foreign Emmanuel Fibromyalgia M79.7 [facility] [address] [place], [place] [id number] 03/14/2024 R Foreign Emmanuel [facility] [address] [place] [id number] 05/24/2024 R Foreign Emmanuel Seasonal allergies J30.2 [facility] [address] [place], [place] [id number] 06/29/2024 R Foreign Emmanuel [facility] [address] [place] [id number] 07/03/2024 R Foreign Emmanuel [facility] [address] [place] [id number] 08/15/2024 R Foreign Emmanuel [facility] [address] [place] [id number] 08/15/2024 R Foreign Emmanuel [facility] [address] [place] [id number] 08/17/2024 R Foreign Emmanuel Seasonal allergies J30.2 [facility] [address] [place], [place] [id number] 10/31/2024 R Foreign Emmanuel [facility] [address] [facility] [address] [place], [place] [id number] 11/21/2024 Jeyson Benitez [facility] [address] [facility] [address] [place], [place] [id number] 01/02/2025 China Sánchez [facility] [address] [facility] [address] [place] [id number] 01/02/2025 Jeyson Benitez Assessments Encounter Date Diagnosis [...] B37.31) 04/27/2024 Seasonal allergies (ICD-10 - J30.2) 06/26/2024 Malabsorption [...] (chronic obstructive pulmonary disease) (ICD-10 - J44.9) 05/24/2024 Seasonal allergies (ICD-10 - J30.2) 06/22/2024 Fibromyalgia (ICD-10 - M79.7) 06/22/2024 Malabsorption due to intolerance, not elsewhere classified (ICD-10 - K90.49) 12/29/2024 Hypoxia (ICD-10 - R09.02) Patient's oxygen [...] oral antibiotics. Plan for direct admission to [facility] for IV fluids and IV antibiotics. [...] Status post bariatric surgery (ICD-10 - Z98.84) 04/27/2024 Fibromyalgia (ICD-10 - M79.7) 02/03/2024 Symptomatic hypotension (ICD-10 - I95.9) Will stop losartan and monitor BP. If still low, will contact cardiology. 06/22/2024 Dyslipidemia (ICD-10 - E78.5) 10/19/2024 Seasonal allergies (ICD-10 - J30.2) 12/29/2024 BMI 24.0-24.9, adult (ICD-10 - Z68.24) 10/19/2024 BMI 24.0-24.9, adult (ICD-10 - Z68.24) 06/22/2024 Vaginal yeast infection (ICD-10 - B37.31) 06/22/2024 Hypoglycemia (ICD-10 - E16.2) Plan Of Treatment Pending Test Test Name Order Date P-Comprehensive Metabolic Panel (CMP) P-Lipid Panel 09/21/2023 Next Appt Details Provider Name:Jeyson Smith, 01/16/2025 10:30:00 AM, [address], [place], [place], [id number], Insurance Providers Payer Name Payer Address Payer Phone Subscriber Number Group Number Insured Name Patient Relationship to Insured Coverage Start Date Coverage End Date MEDICARE PART B [address] [address] [place] [phone] [id number] WENDY DORAN Self - patient is the insured [facility] [employer] [address] [place] [id number] WENDY DORAN Self - patient is the insured Medications Administered Medication Instructions Date of Administration Dosage Notes Dexamethasone 06/28/2018 1 mL Dexamethasone 05/02/2019 1 mL Dexamethasone 02/10/2022 1 mL Dexamethasone 06/09/2022 1 mL Phenergan 12.5 mgs. 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 Ca th showed [...] Hospitalization History Reason Date(Month/Year) Drs office in [place]-possible UTI, te sted negative 12/2019 [place] [facility]-Bronchitis 03/2018 [place] [facility]-diarrhea 11/2015 [place] [facility]-constipation/impaction 2015 [facility]-heart attack 12/31/2014 [facility] ER-back pain 06/2012 [facility] ER-diarrhea 03/2011
--- OUTSIDE RECORDS SUMMARY | 2025-01-08 13:27 | XMS_ITS | Data Portability ---
Author Organization [place] - [facility] [place] [facility] [place] [facility] ADMIN Address [address] [place] [id number] Care Team Providers Care Health And Safety Consultant Name Role Phone GENET BRUCE Primary [...] months and PRN Not available 06/26/2024 13:49:07 12/27/2024 12/27/2024 69-year-old [...] recommended 04/2029 for screening. f/u 1 month [email or web address] Not available 12/27/2024 14:41:04 Plan of Treatment Reminders Order Date Submit Date Provider Last Modified By Organization Details Last Modified Time Details Appointments Establish ed Visit 15 min 2024 01:45P M Ernesto Amezcua PA-C Not available Not available Not available OV EST 20 2024 10:00A M Aden Husain, CAMMIE, JUNIOR LEGAL SECRETARY, [employer]-C Not available Not available Not available Lab CBC w/ auto diff 2024 025 ISAAC [facility], [address], [address], [place], [address], 12/15/2024 14:37:20 CMP, serum or plasma 2024 025 ISAAC [facility], [address], [address], [place], [address], 12/15/2024 14:37:21 TSH + free T4, serum 2024 025 ISAAC [facility], [address], [address], [place], [address], 12/15/2024 14:37:19 HbA1c (hemoglob in A1c), blood 2024 025 ISAAC [facility], [address], [address], [place], [address], 12/15/2024 14:37:24 lipid panel, serum 2024 025 ISAAC [facility], [address], [address], [place], [address], 12/15/2024 14:37:22 copper, serum or plasma 2024 025 ISAAC [facility], [address], [address], [place], [address], 12/15/2024 14:37:29 selenium, quantitat silvino, blood 2024 025 ISAAC [facility], [address], [address], [place], [address], 12/15/2024 14:37:31 zinc, serum or plasma 2024 025 ISAAC [facility], [address], [address], [place], [address], 12/15/2024 14:37:30 iron + TIBC + ferritin, serum 2024 025 ISAAC [facility], [address], [address], [place], [address], 12/15/2024 14:37:18 folate, serum 2024 025 ISAAC [facility], [address], [address], [place], [address], 12/15/2024 14:37:24 vitamin E, serum 2024 025 ISAAC [facility], [address], [address], [place], [address], 12/15/2024 14:37:23 vitamin A (retinol) , serum 2024 025 ISAAC [facility], [address], [address], [place], [address], 12/15/2024 14:37:25 prealbumi n, serum 2024 025 ISAAC [facility], [address], [address], [place], [address], 12/15/2024 14:37:30 thiamine, QN, blood 2024 025 ISAAC [facility], [address], [address], [place], [address], 12/15/2024 14:37:27 methylmal jareth, QN, serum or plasma 2024 025 ISAAC [facility], [address], [address], [place], [address], 12/15/2024 14:37:28 vitamin D, 25-hydrox y, total, serum 2024 025 ISAAC [facility], [address], [address], [place], [address], 12/15/2024 14:37:26 CMP, serum or plasma 2023 024 [email or web address] [facility] (Registration ), [address], [place], [address], 07/07/2024 10:22:50 CBC [address] (Registration ), [address], [place], [address], 07/07/2024 10:22:50 PT/INR [address] (Registration ), [address], [place], [address], 07/07/2024 10:22:50 liver fibrosis score, calculate d by ELF, serum or plasma [address] (Registration ), [address] [place] [address], [place], [address], 07/07/2024 10:22:50 selenium, quantitat silvino, blood 2023 024 [email or web address] [facility], [address], [address], [place], [address], 07/06/2024 13:36:28 CMP, serum or plasma 2023 024 [email or web address] [facility], [address], [address], [place], [address], 07/06/2024 13:36:30 CBC w/ auto diff 2023 024 [email or web address] [facility], [address], [address], [place], [address], 07/06/2024 13:36:29 HbA1c (hemoglob in A1c), blood 2023 024 [facility], [address], [address], [place], [address], 07/06/2024 13:36:30 TSH + free T4, serum 2023 [email or web address] [facility], [address], [address], [place], [address], 07/06/2024 13:36:30 lipid panel, serum 2023 [facility], [address], [address], [place], [address], 07/06/2024 13:36:30 copper, serum or plasma 2023 [facility], [address], [address], [place], [address], 07/06/2024 13:36:28 zinc, serum or plasma 2023 [email or web address] [facility], [address], [address], [place], [address], 07/06/2024 13:36:28 iron + TIBC + ferritin, serum 2023 [email or web address] [facility], [address], [address], [place], [address], 07/06/2024 13:36:28 folate, serum 2023 [email or web address] [facility], [address], [address], [place], [address], 07/06/2024 13:36:29 vitamin E, serum 2023 [email or web address] [facility], [address], [address], [place], [address], 07/06/2024 13:36:29 vitamin A (retinol) , serum 2023 [email or web address] [facility], [address], [address], [place], [address], 07/06/2024 13:36:29 prealbumi n, serum 2023 024 [email or web address] [facility], [address], [address], [place], [address], 07/06/2024 13:36:29 thiamine, QN, blood 2023 024 [email or web address] [facility], [address], [address], [place], [address], 07/06/2024 13:36:29 methylmal jareth, QN, serum or plasma 2023 024 [email or web address] [facility], [address], [address], [place], [address], 07/06/2024 13:36:29 vitamin D, 25-hydrox y, total, serum 2023 [email or web address] [facility], [address], [address], [place], [address], 07/06/2024 13:36:30 selenium, quantitat silvino, blood 2023 024 [email or web address] [facility], [address], [address], [place], [address], 03/14/2024 10:57:17 HbA1c (hemoglob in A1c), blood 2023 024 [email or web address] [facility], [address], [address], [place], [address], 03/14/2024 10:57:17 iron + TIBC + ferritin, serum 2023 024 [email or web address] [facility], [address], [address], [place], [address], 03/14/2024 10:57:17 vitamin D, 25-hydrox y, total, serum 2023 [email or web address] [facility], [address], [address], [place], [address], 03/14/2024 10:57:18 vitamin A (retinol) , serum 2023 [email or web address] [facility], [address], [address], [place], [address], 03/14/2024 10:57:18 thiamine, QN, blood 2023 [email or web address] [facility], [address], [address], [place], [address], 03/14/2024 10:57:19 methylmal jareth, QN, serum or plasma 2023 [email or web address] [facility], [address], [address], [place], [address], 03/14/2024 10:57:19 copper, serum or plasma 2023 [email or web address] [facility], [address], [address], [place], [address], 03/14/2024 10:57:16 zinc, serum or plasma 2023 [email or web address] [facility], [address], [address], [place], [address], 03/14/2024 10:57:17 CBC w/ auto diff 2023 [email or web address] [facility], [address], [address], [place], [address], 03/14/2024 10:57:17 CMP, serum or plasma 2023 024 [email or web address] [facility], [address], [address], [place], [address], 03/14/2024 10:57:17 folate, serum 2023 024 [email or web address] [facility], [address], [address], [place], [address], 03/14/2024 10:57:17 vitamin E, serum 2023 024 [email or web address] [facility], [address], [address], [place], [address], 03/14/2024 10:57:18 TSH + free T4, serum 2023 024 [email or web address] [facility], [address], [address], [place], [address], 03/14/2024 10:57:18 prealbumi n, serum 2023 024 [email or web address] [facility], [address], [address], [place], [address], 03/14/2024 10:57:18 lipid panel, serum 2023 024 [email or web address] [facility], [address], [address], [place], [address], 03/14/2024 10:57:19 Referral None recorded. Procedures biopsy, liver (PROC) - CT or US guidance, depending on radiologi st's preferenc e 2024 025 [email or web address] [facility], [address] [facility], [place], [address], 12/27/2024 14:50:48 Surgeries None recorded. Imaging None recorded. Medication Orders Motegrity 2 mg tablet 2023 024 [email or web address] [facility], [address] [place] [address], [place] [address], [place], [place], [id number], 12/08/2024 08:57:40 Patient TargetsNo targets recorded. Patient InstructionsNo instructions recorded. Reason for Referral None Reported. Results Created Date Observation Date Name Description Value Unit Range Abnormal Flag Note LastModifiedBy Organization Detail LastModifiedTime 03/06/2003/07/2024 FE+TI BC+FE R iron bind.cap.(TI BC) 333 ug/dL 250-45 0 normal Not Available [facility] ([facility]) [address] [place], [address], 03/14/2024 18:37:18 03/06/20 24 03/07/2024 FE+TI BC+FE R UIBC 231 ug/dL 118-36 9 normal Not Available [facility] ([facility]) [address] [place], [address], 03/14/2024 18:37:18 03/06/20 24 03/07/2024 FE+TI BC+FE R iron 102 ug/dL 27-139 normal Not Available [facility] ([facility]) [address] [place], [address], 03/14/2024 18:37:18 03/06/20 24 03/07/2024 FE+TI BC+FE R iron saturation 31 % 15-55 normal Not Available [facility] ([facility]) [address] [place], [address], 03/14/2024 18:37:18 03/06/20 24 03/07/2024 FE+TI BC+FE R ferritin 29 NG/mL 15-150 normal Not Available [facility] ([facility]) [address] [place], [address], 03/14/2024 18:37:18 03/06/20 24 03/07/2024 TSH+F REE T4 TSH 1.870 uIU/m L 0.450- 4.500 normal Not Available [facility] ([facility]) [address], [place], [place], [address], 03/14/2024 18:37:18 03/06/2003/07/2024 TSH+F REE T4 T4,free(dire ct) 0.77 NG/dL 0.82-1 .77 below low normal Not Available [facility] ([facility]) [address], [place], [place], [address], 03/14/2024 18:37:18 03/06/20 24 03/07/2024 CBC WITH DIFFE RENTI AL/PL ATELE T WBC 5.0 x10e3 /uL 3.4-10 .8 normal Not Available [facility] ([facility]) [address], [place], [place], [address], 03/14/2024 18:37:18 03/06/2003/07/2024 CBC WITH DIFFE RENTI AL/PL ATELE T RBC 4.62 x10e6 /uL 3.77-5 .28 normal Not Available [facility] ([facility]) [address] [place], [address], 03/14/2024 18:37:18 03/06/2003/07/2024 CBC WITH DIFFE RENTI AL/PL ATELE T hemoglobin 14.1 g/dL 11.1-1 5.9 normal Not Available [facility] ([facility]) [address] [place], [address], 03/14/2024 18:37:18 03/06/2003/07/2024 CBC WITH DIFFE RENTI AL/PL ATELE T hematocrit 44.3 % 34.0-4 6.6 normal Not Available [facility] ([facility]) [address] [place], [address], 03/14/2024 18:37:18 03/06/20 24 03/07/2024 CBC WITH DIFFE RENTI AL/PL ATELE T MCV 96 fL 79-97 normal Not Available [facility] ([facility]) [address] [place], [address], 03/14/2024 18:37:18 03/06/20 24 03/07/2024 CBC WITH DIFFE RENTI AL/PL ATELE T MCH 30.5 pg 26.6-3 3.0 normal Not Available [facility] ([facility]) [address] [place], [address], 03/14/2024 18:37:18 03/06/20 24 03/07/2024 CBC WITH DIFFE RENTI AL/PL ATELE T MCHC 31.8 g/dL 31.5-3 5.7 normal Not Available [facility] ([facility]) [address] [place], [address], 03/14/2024 18:37:18 03/06/20 24 03/07/2024 CBC WITH DIFFE RENTI AL/PL ATELE T RDW 12.4 % 11.7-1 5.4 Not Available [facility] ([facility]) [address] [place], [address], 03/14/2024 18:37:18 03/06/20 24 03/07/2024 CBC WITH DIFFE RENTI AL/PL ATELE T platelets 232 x10e3 /uL 150-45 0 normal Not Available [facility] ([facility]) [address] [place], [address], 03/14/2024 18:37:18 03/06/20 24 03/07/2024 CBC WITH DIFFE RENTI AL/PL ATELE T neutrophils 53 % not estab. normal Not Available [facility] ([facility]) [address] [place], [address], 03/14/2024 18:37:18 03/06/20 24 03/07/2024 CBC WITH DIFFE RENTI AL/PL ATELE T lymphs 29 % not estab. normal Not Available [facility] ([facility]) [address], [place], [place], [address], 03/14/2024 18:37:18 03/06/20 24 03/07/2024 CBC WITH DIFFE RENTI AL/PL ATELE T monocytes 12 % not estab. normal Not Available [facility] ([facility]) [address], [place], [place], [address], 03/14/2024 18:37:18 03/06/20 24 03/07/2024 CBC WITH DIFFE RENTI AL/PL ATELE T eos 5 % not estab. normal Not Available [facility] ([facility]) [address], [place], [place], [address], 03/14/2024 18:37:18 03/06/20 24 03/07/2024 CBC WITH DIFFE RENTI AL/PL ATELE T basos 1 % not estab. normal Not Available [facility] ([facility]) [address] [place], [address], 03/14/2024 18:37:18 03/06/20 24 03/07/2024 CBC WITH DIFFE RENTI AL/PL ATELE T immature cells [employer] Not Available [facility] ([facility]) [address] [place], [address], 03/14/2024 18:37:18 03/06/20 24 03/07/2024 CBC WITH DIFFE RENTI AL/PL ATELE T neutrophils (absolute) 2.6 x10e3 /uL 1.4-7. 0 normal Not Available [facility] ([facility]) [address] [place], [address], 03/14/2024 18:37:18 03/06/20 24 03/07/2024 CBC WITH DIFFE RENTI AL/PL ATELE T lymphs (absolute) 1.5 x10e3 /uL 0.7-3. 1 normal Not Available [facility] ([facility]) [address], [place], [place], [address], 03/14/2024 18:37:18 03/06/20 24 03/07/2024 CBC WITH DIFFE RENTI AL/PL ATELE T monocytes(ab solute) 0.6 x10e3 /uL 0.1-0. 9 normal Not Available [facility] ([facility]) [address], [place], [place], [address], 03/14/2024 18:37:18 03/06/20 24 03/07/2024 CBC WITH DIFFE RENTI AL/PL ATELE T eos (absolute) 0.3 x10e3 /uL 0.0-0. 4 normal Not Available [facility] ([facility]) [address], [place], [place], [address], 03/14/2024 18:37:18 03/06/20 24 03/07/2024 CBC WITH DIFFE RENTI AL/PL ATELE T baso (absolute) 0.1 x10e3 /uL 0.0-0. 2 normal Not Available [facility] ([facility]) [address], [place], [place], [address], 03/14/2024 18:37:18 03/06/20 24 03/07/2024 CBC WITH DIFFE RENTI AL/PL ATELE T immature granulocytes 0 % not estab. Not Available [facility] ([facility]) [address], [place], [place], [address], 03/14/2024 18:37:18 03/06/20 24 03/07/2024 CBC WITH DIFFE RENTI AL/PL ATELE T immature grans (abs) 0.0 x10e3 /uL 0.0-0. 1 Not Available [facility] ([facility]) [address], [place], [place], [address], 03/14/2024 18:37:18 03/06/20 24 03/07/2024 CBC WITH DIFFE RENTI AL/PL ATELE T NRBC [employer] Not Available [facility] ([facility]) [address], [place], [place], [address], 03/14/2024 18:37:18 03/06/20 24 03/07/2024 CBC WITH DIFFE RENTI AL/PL ATELE T hematology comments: [employer] Not Available [facility] ([facility]) [address], [place], [place], [address], 03/14/2024 18:37:18 03/06/20 24 03/07/2024 COMP. METAB OLIC PANEL (14) glucose 93 mg/dL 70-99 normal Not Available [facility] ([facility]) [address], [place], [address], 03/14/2024 18:37:19 03/06/20 24 03/07/2024 COMP. METAB OLIC PANEL (14) BUN 32 mg/dL 8-27 above high normal Not Available [facility] ([facility]) [address], [place], [place], [address], 03/14/2024 18:37:19 03/06/20 24 03/07/2024 COMP. METAB OLIC PANEL (14) creatinine 0.91 mg/dL 0.57-1 .00 normal Not Available [facility] ([facility]) [address], [place], [address], 03/14/2024 18:37:19 03/06/20 24 03/07/2024 COMP. METAB OLIC PANEL (14) eGFR 70 mL/mi n/1.7 3 >59 normal Not Available [facility] ([facility]) [address], [place], [address], 03/14/2024 18:37:19 03/06/20 24 03/07/2024 COMP. METAB OLIC PANEL (14) BUN/creatini ne ratio 35 12-28 above high normal Not Available [facility] ([facility]) [address], [place], [address], 03/14/2024 18:37:19 03/06/20 24 03/07/2024 COMP. METAB OLIC PANEL (14) sodium 138 mmol/ L 134-14 4 normal Not Available [facility] ([facility]) [address] [place], [address], 03/14/2024 18:37:19 03/06/20 24 03/07/2024 COMP. METAB OLIC PANEL (14) potassium 4.2 mmol/ L 3.5-5. 2 normal Not Available [facility] ([facility]) [address] [place], [address], 03/14/2024 18:37:19 03/06/20 24 03/07/2024 COMP. METAB OLIC PANEL (14) chloride 101 mmol/ L 96-106 normal Not Available [facility] ([facility]) [address] [place], [address], 03/14/2024 18:37:19 03/06/20 24 03/07/2024 COMP. METAB OLIC PANEL (14) carbon dioxide, total 24 mmol/ L 20-29 normal Not Available [facility] ([facility]) [address] [place], [address], 03/14/2024 18:37:19 03/06/20 24 03/07/2024 COMP. METAB OLIC PANEL (14) calcium 9.4 mg/dL 8.7-10 .3 normal Not Available [facility] ([facility]) [address] [place], [address], 03/14/2024 18:37:19 03/06/20 24 03/07/2024 COMP. METAB OLIC PANEL (14) protein, total 6.3 g/dL 6.0-8. 5 normal Not Available [facility] ([facility]) [address], [place], [address], 03/14/2024 18:37:19 03/06/20 24 03/07/2024 COMP. METAB OLIC PANEL (14) albumin 4.1 g/dL 3.9-4. 9 normal Not Available [facility] ([facility]) [address], [place], [address], 03/14/2024 18:37:19 03/06/20 24 03/07/2024 COMP. METAB OLIC PANEL (14) globulin, total 2.2 g/dL 1.5-4. 5 Not Available [facility] ([facility]) [address], [place], [address], 03/14/2024 18:37:19 03/06/20 24 03/07/2024 COMP. METAB OLIC PANEL (14) bilirubin, total 0.3 mg/dL 0.0-1. 2 normal Not Available [facility] ([facility]) [address], [place], [address], 03/14/2024 18:37:19 03/06/20 24 03/07/2024 COMP. METAB OLIC PANEL (14) alkaline phosphatase 80 IU/L 44-121 normal Not Available [facility] ([facility]) [address], [place], [address], 03/14/2024 18:37:19 03/06/20 24 03/07/2024 COMP. METAB OLIC PANEL (14) AST (SGOT) 47 IU/L 0-40 above high normal Not Available [facility] ([facility]) [address], [place], [address], 03/14/2024 18:37:19 03/06/20 24 03/07/2024 COMP. METAB OLIC PANEL (14) ALT (SGPT) 58 IU/L 0-32 above high normal Not Available [facility] ([facility]) [address], [place], [address], 03/14/2024 18:37:19 03/06/20 24 03/07/2024 LIPID PANEL cholesterol, total 119 mg/dL 100-19 9 normal Not Available [facility] ([facility]) [address], [place], [place], [address], 03/14/2024 18:37:19 03/06/20 24 03/07/2024 LIPID PANEL triglyceride s 75 mg/dL 0-149 normal Not Available [facility] ([facility]) [address], [place], [place], [address], 03/14/2024 18:37:19 03/06/20 24 03/07/2024 LIPID PANEL HDL cholesterol 51 mg/dL >39 normal Not Available [facility] ([facility]) [address], [place], [place], [address], 03/14/2024 18:37:19 03/06/20 24 03/07/2024 LIPID PANEL VLDL cholesterol apurva 15 mg/dL 5-40 Not Available [facility] ([facility]) [address], [place], [place], [address], 03/14/2024 18:37:19 03/06/20 24 03/07/2024 LIPID PANEL LDL chol calc ([facility]) 53 mg/dL 0-99 Not Available [facility] ([facility]) [address] [place], [address], 03/14/2024 18:37:19 03/06/20 24 03/07/2024 LIPID PANEL LDL calc comment: [employer] Not Available [facility] ([facility]) [address] [place], [address], 03/14/2024 18:37:19 03/06/20 24 03/14/2024 VITAM IN E vitamin E(alpha tocopherol) 12.2 mg/L 9.0-29 .0 Not Available [facility] ([facility]) [address] [place], [address], 03/14/2024 18:37:20 03/06/2003/14/2024 VITAM IN E vitamin [...] in E defic ient. Not Available [facility] ([facility]) [address], [place], [place], [address], 03/14/2024 18:37:20 03/06/2003/07/2024 HEMOG LOBIN A1C hemoglobin A1C 5.4 % 4.8-5. 6 normal Predi abete s: 5.7 - 6.4 Diabe inessa: >6.4 Glyce amauri contr ol for adult s with diabe inessa: <7.0 Not Available [facility] ([facility]) [address], [place], [place], [address], 03/14/2024 18:37:20 03/06/2003/07/2024 FOLAT E (FOLI C ACID) , SERUM folate (folic acid), serum >20.0 NG/mL >3.0 A serum folat e yanet ntrat ion of less than 3.1 ng/mL is consi dered to repre sent clini apurva defic iency . Not Available [facility] ([facility]) [address], [place], [place], [address], 03/14/2024 18:37:21 03/06/2003/14/2024 VITAM IN A, SERUM [...] Drug Admin istra tion. Not Available [facility] ([facility]) [address], [place], [place], [address], 03/14/2024 18:37:21 03/06/20 24 03/07/2024 VITAM IN [...] um and D. Joanna roque [place]: [facility] [employer] . 2. Junie lugo [place], Garrick wallace [place], Valeria off-F christen i TURCIOS, et al. Evalu ation , treat ment, and preve ntion of vitam in D defic iency : an Endoc rine Socie ty clini apurva pract ice guide line. JCEM. 2010; 96(7) :1911 -30. Not Available [facility] ([facility]) [address], [place], [place], [address], 03/14/2024 18:37:21 03/06/20 24 03/12/2024 VITAM IN B1 (THIA MINE) , BLOOD vit. B1, whole blood 290.9 nmol/ L 66.5-2 00.0 above high normal Not Available [facility] ([facility]) [address], [place], [place], [address], 03/14/2024 18:37:22 03/06/20 24 03/12/2024 METHY LMALO ALICIA ACID, SERUM methylmaloni c acid, serum 360 nmol/ L 0-378 Not Available [facility] ([facility]) [address], [place], [place], [address], 03/14/2024 18:37:22 03/06/20 24 03/08/2024 COPPE R, SERUM OR PLASM A copper, serum or plasma 117 ug/dL 80-158 Detec tion Limit = 5 Not Available [facility] ([facility]) [address], [place], [place], [address], 03/14/2024 18:37:23 03/06/20 24 03/08/2024 ZINC, PLASM A OR SERUM zinc, plasma or serum 87 ug/dL 44-115 normal Detec tion Limit = 5 Not Available [facility] ([facility]) [address], [place], [place], [address], 03/14/2024 18:37:23 03/06/20 24 03/07/2024 PREAL BUMIN prealbumin 20 mg/dL 10-36 Not Available [facility] ([facility]) [address], [place], [place], [address], 03/14/2024 18:37:23 03/06/20 24 03/08/2024 SELEN IUM, BLOOD selenium, blood 168 ug/L 100-34 0 Detec tion Limit = 10 Not Available [facility] ([facility]) [address], [place], [place], [address], 03/14/2024 18:37:24 07/15/19 25 07/15/2024 CBC NO DIFF (HEMO GRAM) WBC 5.9 K/uL 4.0-10 .5 Not Available [facility] ([facility]) [address], [place], [address], 07/15/2024 09:51:52 07/15/19 25 07/15/2024 CBC NO DIFF (HEMO GRAM) RBC 5.0 M/mm3 4.2-6. 4 Not Available [facility] ([facility]) [address], [place], [address], 07/15/2024 09:51:52 07/15/19 25 07/15/2024 CBC NO DIFF (HEMO GRAM) HGB 14.8 gm/dL 12.5-1 6.0 Not Available [facility] ([facility]) [address], [place], [address], 07/15/2024 09:51:52 07/15/19 25 07/15/2024 CBC NO DIFF (HEMO GRAM) HCT 44.8 % 37.0-4 7.0 Not Available [facility] ([facility]) [address], [place], [address], 07/15/2024 09:51:52 07/15/19 25 07/15/2024 CBC NO DIFF (HEMO GRAM) MCV 89.4 fL 78-100 Not Available [facility] ([facility]) [address] [facility], [place], [address], 07/15/2024 09:51:52 07/15/19 25 07/15/2024 CBC NO DIFF (HEMO GRAM) MCH 29.5 pg 27-31 Not Available [facility] ([facility]) [address] [facility], [place], [address], 07/15/2024 09:51:52 07/15/19 25 07/15/2024 CBC NO DIFF (HEMO GRAM) MCHC 33.0 g/dL 32-36 Not Available [facility] ([facility]) [address] [place], [address], 07/15/2024 09:51:52 07/15/19 25 07/15/2024 CBC NO DIFF (HEMO GRAM) RDW 14.9 % 11.5-1 4.0 high Not Available [facility] ([facility]) [address] , [place], [address], 07/15/2024 09:51:52 07/15/19 25 07/15/2024 CBC NO DIFF (HEMO GRAM) platelet count 233 K/uL 150-45 0 Not Available [facility] ([facility]) [address] , [place], [address], 07/15/2024 09:51:52 07/15/19 25 07/15/2024 CBC NO DIFF (HEMO GRAM) MPV 8.9 fL 6-9.5 Not Available [facility] ([facility]) [address] , [place], [address], 07/15/2024 09:51:52 07/15/19 25 07/15/2024 CBC NO DIFF (HEMO GRAM) manual differential NO Not Available [facility] ([facility]) [address] , [place], [address], 07/15/2024 09:51:52 07/15/1907/15/2024 PT (PROT HROMB IN TIME) W INR prothrombin time 10.4 secon ds 9.3-11 .4 Not Available [facility] ([facility]) [address] , [place], [address], 07/15/2024 10:13:39 07/15/1907/15/2024 PT (PROT HROMB IN [...] Mecha nical Heart Valve s Not Available [facility] ([facility]) [address] , [place], [address], 07/15/2024 10:13:39 07/15/19 25 07/15/2024 COMP METAB OLIC PANEL sodium 136 mmol/ L 136-14 5 Not Available [facility] ([facility]) [address] , [place], [address], 07/15/2024 10:18:53 07/15/19 25 07/15/2024 COMP METAB OLIC PANEL potassium 4.6 mmol/ L 3.6-5. 0 Not Available [facility] ([facility]) [address] , [place], [address], 07/15/2024 10:18:53 07/15/19 25 07/15/2024 COMP METAB OLIC PANEL chloride 101 mmol/ L 98-107 Not Available [facility] ([facility]) [address] , [place], [address], 07/15/2024 10:18:53 07/15/19 25 07/15/2024 COMP METAB OLIC PANEL carbon dioxide 29.4 mmol/ L 21.0-3 2.0 Not Available [facility] ([facility]) [address] , [place], [address], 07/15/2024 10:18:53 07/15/19 25 07/15/2024 COMP METAB OLIC PANEL anion gap 10.2 Not Available [facility] ([facility]) [address] , [place], [address], 07/15/2024 10:18:53 07/15/19 25 07/15/2024 COMP METAB OLIC PANEL glucose 98 mg/dL 70-120 Not Available [facility] ([facility]) [address] , [place], [address], 07/15/2024 10:18:53 07/15/19 25 07/15/2024 COMP METAB OLIC PANEL BUN 31 mg/dL 7-18 high Not Available [facility] ([facility]) [address], [place], [address], 07/15/2024 10:18:53 07/15/19 25 07/15/2024 COMP METAB OLIC PANEL creatinine 0.9 mg/dL 0.6-1. 3 Not Available [facility] ([facility]) [address], [place], [address], 07/15/2024 10:18:53 07/15/19 25 07/15/2024 COMP METAB [...] romero ing kiney funct ion. Not Available [facility] ([facility]) [address], [place], [address], 07/15/2024 10:18:53 07/15/19 25 07/15/2024 COMP METAB OLIC PANEL total protein 7.4 g/dL 6.4-8. 2 Not Available [facility] ([facility]) [address], [place], [address], 07/15/2024 10:18:53 07/15/19 25 07/15/2024 COMP METAB OLIC PANEL albumin 3.9 g/dL 3.4-5. 0 Not Available [facility] ([facility]) [address], [place], [address], 07/15/2024 10:18:53 07/15/19 25 07/15/2024 COMP METAB OLIC PANEL globulin 3.5 Not Available [facility] ([facility]) [address], [place], [address], 07/15/2024 10:18:53 07/15/19 25 07/15/2024 COMP METAB OLIC PANEL alb/glob ratio 1.1 0.7-2 Not Available [facility] ([facility]) [address], [place], [address], 07/15/2024 10:18:53 07/15/19 25 07/15/2024 COMP METAB OLIC PANEL calcium 9.4 mg/dL 8.5-10 .5 Not Available [facility] ([facility]) [address], [place], [address], 07/15/2024 10:18:53 07/15/19 25 07/15/2024 COMP METAB OLIC PANEL bilirubin total 0.60 mg/dL 0.10-1 .00 Not Available [facility] ([facility]) [address] , [place], [address], 07/15/2024 10:18:53 07/15/19 25 07/15/2024 COMP METAB OLIC PANEL AST (SGOT) 38 U/L 0-37 high Not Available [facility] ([facility]) [address] , [place], [address], 07/15/2024 10:18:53 07/15/19 25 07/15/2024 COMP METAB OLIC PANEL ALT (SGPT) 66 U/L 0-65 high Not Available [facility] ([facility]) [address] , [place], [address], 07/15/2024 10:18:53 07/15/19 25 07/15/2024 COMP METAB OLIC PANEL alk phosphatase 83 U/L 46-116 Not Available [facility] ([facility]) [address] , [place], [address], 07/15/2024 10:18:53 07/15/19 25 07/18/2024 CISNERSO FIBRO SURE PLUS alpha 2-macroglobu oralia, qn 266 mg/dL 110-27 6 Not Available [facility] ([facility]) [address] [place], [address], 07/18/2024 06:10:53 07/15/19 25 07/18/2024 CISNEROS FIBRO SURE PLUS haptoglobin 88 mg/dL 37-355 Not Available [facility] ([facility]) [address] [facility], [place], [address], 07/18/2024 06:10:53 07/15/19 25 07/18/2024 CISNEROS FIBRO SURE PLUS apolipoprote in A-1 167 mg/dL 116-20 9 Not Available [facility] ([facility]) [address] [facility], [place], [address], 07/18/2024 06:10:53 07/15/19 25 07/18/2024 CISNEROS FIBRO SURE PLUS bilirubin, total 0.4 mg/dL 0.0-1. 2 Not Available [facility] ([facility]) [address] [place], [address], 07/18/2024 06:10:53 07/15/19 25 07/18/2024 CISNEROS FIBRO SURE PLUS GGT 32 IU/L 0-60 Not Available [facility] ([facility]) [address] [place], [address], 07/18/2024 06:10:53 07/15/19 25 07/18/2024 CISNEROS FIBRO SURE PLUS ALT (SGPT) p5p 63 IU/L 0-40 high Not Available [facility] ([facility]) [address] [place], [address], 07/18/2024 06:10:53 07/15/19 25 07/18/2024 CISNEROS FIBRO SURE PLUS AST (SGOT) p5p 42 IU/L 0-40 high Not Available [facility] ([facility]) [address] [place], [address], 07/18/2024 06:10:53 07/15/19 25 07/18/2024 CISNEROS FIBRO SURE PLUS cholesterol, total 122 mg/dL 100-19 9 Not Available [facility] ([facility]) [address] , [place], [address], 07/18/2024 06:10:53 07/15/19 25 07/18/2024 CISNEROS FIBRO SURE PLUS glucose, serum 102 mg/dL 70-99 high Not Available [facility] ([facility]) [address] , [place], [address], 07/18/2024 06:10:53 07/15/19 25 07/18/2024 CISNEROS FIBRO SURE PLUS triglyceride s 99 mg/dL 0-149 Not Available [facility] ([facility]) [address] , [place], [address], 07/18/2024 06:10:53 07/15/19 25 07/18/2024 CISNEROS FIBRO [...] Stage F4 - Cirrh osis Not Available [facility] ([facility]) [address] , [place], [address], 07/18/2024 06:10:53 07/15/19 25 07/18/2024 CISNEROS FIBRO SURE PLUS fibrosis stage F1-F2 Not Available [facility] ([facility]) [address] , [place], [address], 07/18/2024 06:10:53 07/15/19 25 07/18/2024 CISNEROS FIBRO SURE PLUS fibrosis score 0.34 0.00-0 .21 high Not Available [facility] ([facility]) [address] [place], [address], 07/18/2024 06:10:53 07/15/19 25 07/18/2024 CISNEROS FIBRO SURE PLUS steatosis score 0.48 0.00-0 .40 high Not Available [facility] ([facility]) [address] [place], [address], 07/18/2024 06:10:53 07/15/1907/18/2024 CISNEROS FIBRO SURE PLUS steatosis grade Commen t S1 - Mild Steat osis (But Clini zuleyka Signi fican t) (5- 33%) Not Available [facility] ([facility]) [address] [place], [address], 07/18/2024 06:10:53 07/15/19 25 07/18/2024 CISNEROS FIBRO SURE PLUS steatosis scoring Commen t . <=0.4 0 = S0 - No Steat osis (<5%) 0.40 - 0.55 = S1 - Mild Steat osis (but Clini zuleyka Signi fican t) (5-33 %) >0.55 = S2S3- Moder ate to Sever e Steat osis (Clin icall y Signi fican t) (34-1 00%) Not Available [facility] ([facility]) [address] [place], [address], 07/18/2024 06:10:53 07/15/19 25 07/18/2024 CISNEROS FIBRO SURE PLUS cisneros scoring Commen t . <=0.2 5 = N0 - No CISNEROS/ MASH 0.25 - 0.50 = N1 - Mild CISNEROS/ MASH 0.50 - 0.75 = N2 - Moder ate CISNEROS/ MASH >0.75 = N3 - Sever e CISNEROS/ MASH Not Available [facility] ([facility]) [address] [place], [address], 07/18/2024 06:10:53 07/15/19 25 07/18/2024 CISNEROS FIBRO SURE PLUS cisneros grade Commvince t N3 - Sever e CISNEROS Not Available [facility] ([facility]) [address], [place], [address], 07/18/2024 06:10:53 07/15/19 25 07/18/2024 CISNEROS FIBRO SURE PLUS cisneros score 0.79 0.00-0 .25 high Not Available [facility] ([facility]) [address], [place], [address], 07/18/2024 06:10:53 07/15/19 25 07/18/2024 CISNEROS FIBRO [...] ction s of fibro sis. Not Available [facility] ([facility]) [address], [place], [address], 07/18/2024 06:10:53 07/15/19 25 07/18/2024 CISNEROS FIBRO SURE PLUS methodology: Wanda Grossman The sachi inessa teste d are perfo rmed by Fibro Sure- Speci fic metho ds. Not inten ded for use with other diagn ostic consi derat ions. Not Available [facility] ([facility]) [address], [place], [address], 07/18/2024 06:10:53 07/15/19 25 07/18/2024 CISNEROS FIBRO SURE PLUS interpretati on: Commen t . Quant itati ve resul ts of 10 bioch emica ls in combi natio n with age and gende r, are sachi zed using a compu tatio nal algor ithm to provi de a quant itati ve surro gate marke r (0.0- 1.0) of liver fibro sis ([place] vir F0-F4 ), hepat ic steat osis [...] fican t NAFLD /MASL D fibro sis ([place] vir F2-F4 ) and 11% had cirrh [...] ficit y of 71%. 3 Not Available [facility] ([facility]) [address], [place], [address], 07/18/2024 06:10:53 07/15/19 25 07/18/2024 CISNEROS FIBRO [...] conta ct custo lester servi ce at [phone]. . Refer ences : . 1. Vito [...] . Perfo rmed at: - [facility] [address] [place] [address] Lab Direc tor: Massiel ross MD, Phone : [phone] Not Available [facility] ([facility]) [address], [place], [address], 07/18/2024 06:10:53 12/09/19 25 12/09/2024 FE+TI BC+FE R iron bind.cap.(TI BC) 336 ug/dL 250-45 0 normal Not Available [facility] ([facility]) [address] [place], [address], 12/15/2024 14:37:18 12/09/19 25 12/09/2024 FE+TI BC+FE R UIBC 214 ug/dL 118-36 9 normal Not Available [facility] ([facility]) [address] [place], [address], 12/15/2024 14:37:18 12/09/19 25 12/09/2024 FE+TI BC+FE R iron 122 ug/dL 27-139 normal Not Available [facility] ([facility]) [address] [place], [address], 12/15/2024 14:37:18 12/09/19 25 12/09/2024 FE+TI BC+FE R iron saturation 36 % 15-55 normal Not Available [facility] ([facility]) [address] [place], [address], 12/15/2024 14:37:18 12/09/19 25 12/09/2024 FE+TI BC+FE R ferritin 31 NG/mL 15-150 normal Not Available [facility] ([facility]) [address] [place], [address], 12/15/2024 14:37:18 12/09/19 25 12/09/2024 TSH+F REE T4 TSH 2.100 uIU/m L 0.450- 4.500 normal Not Available [facility] ([facility]) [address] [place], [address], 12/15/2024 14:37:19 12/09/19 25 12/09/2024 TSH+F REE T4 T4,free(dire ct) 0.83 NG/dL 0.82-1 .77 normal Not Available [facility] ([facility]) [address] [place], [address], 12/15/2024 14:37:19 12/09/19 25 12/08/2024 CBC WITH DIFFE RENTI AL/PL ATELE T WBC 6.1 x10e3 /uL 3.4-10 .8 normal Not Available [facility] ([facility]) [address] [place], [address], 12/15/2024 14:37:20 12/09/19 25 12/08/2024 CBC WITH DIFFE RENTI AL/PL ATELE T RBC 4.92 x10e6 /uL 3.77-5 .28 normal Not Available [facility] ([facility]) [address] [place], [address], 12/15/2024 14:37:20 12/09/19 25 12/08/2024 CBC WITH DIFFE RENTI AL/PL ATELE T hemoglobin 14.9 g/dL 11.1-1 5.9 normal Not Available [facility] ([facility]) [address] [place], [address], 12/15/2024 14:37:20 12/09/19 25 12/08/2024 CBC WITH DIFFE RENTI AL/PL ATELE T hematocrit 45.6 % 34.0-4 6.6 normal Not Available [facility] ([facility]) [address] [place], [address], 12/15/2024 14:37:20 12/09/19 25 12/08/2024 CBC WITH DIFFE RENTI AL/PL ATELE T MCV 93 fL 79-97 normal Not Available [facility] ([facility]) [address] [place], [address], 12/15/2024 14:37:20 12/09/19 25 12/08/2024 CBC WITH DIFFE RENTI AL/PL ATELE T MCH 30.3 pg 26.6-3 3.0 normal Not Available [facility] ([facility]) [address] [place], [address], 12/15/2024 14:37:20 12/09/19 25 12/08/2024 CBC WITH DIFFE RENTI AL/PL ATELE T MCHC 32.7 g/dL 31.5-3 5.7 normal Not Available [facility] ([facility]) [address] [place], [place], [address], 12/15/2024 14:37:20 12/09/19 25 12/08/2024 CBC WITH DIFFE RENTI AL/PL ATELE T RDW 12.5 % 11.7-1 5.4 Not Available [facility] ([facility]) [address] [place], [place], [address], 12/15/2024 14:37:20 12/09/19 25 12/08/2024 CBC WITH DIFFE RENTI AL/PL ATELE T platelets 234 x10e3 /uL 150-45 0 normal Not Available [facility] ([facility]) [address] [place], [address], 12/15/2024 14:37:20 12/09/19 25 12/08/2024 CBC WITH DIFFE RENTI AL/PL ATELE T neutrophils 56 % not estab. normal Not Available [facility] ([facility]) [address] [place], [address], 12/15/2024 14:37:20 12/09/19 25 12/08/2024 CBC WITH DIFFE RENTI AL/PL ATELE T lymphs 28 % not estab. normal Not Available [facility] ([facility]) [address] [place], [address], 12/15/2024 14:37:20 12/09/19 25 12/08/2024 CBC WITH DIFFE RENTI AL/PL ATELE T monocytes 10 % not estab. normal Not Available [facility] ([facility]) [address] [place], [place], [address], 12/15/2024 14:37:20 12/09/19 25 12/08/2024 CBC WITH DIFFE RENTI AL/PL ATELE T eos 5 % not estab. normal Not Available [facility] ([facility]) [address] [place], [place], [address], 12/15/2024 14:37:20 12/09/19 25 12/08/2024 CBC WITH DIFFE RENTI AL/PL ATELE T basos 1 % not estab. normal Not Available [facility] ([facility]) [address] [facility] [place], [place], [address], 12/15/2024 14:37:20 12/09/19 25 12/08/2024 CBC WITH DIFFE RENTI AL/PL ATELE T immature cells [employer] Not Available [facility] ([facility]) [address] [place], [address], 12/15/2024 14:37:20 12/09/19 25 12/08/2024 CBC WITH DIFFE RENTI AL/PL ATELE T neutrophils (absolute) 3.5 x10e3 /uL 1.4-7. 0 normal Not Available [facility] ([facility]) [address] [place], [address], 12/15/2024 14:37:20 12/09/19 25 12/08/2024 CBC WITH DIFFE RENTI AL/PL ATELE T lymphs (absolute) 1.7 x10e3 /uL 0.7-3. 1 normal Not Available [facility] ([facility]) [address] [place], [address], 12/15/2024 14:37:20 12/09/19 25 12/08/2024 CBC WITH DIFFE RENTI AL/PL ATELE T monocytes(ab solute) 0.6 x10e3 /uL 0.1-0. 9 normal Not Available [facility] ([facility]) [address] [facility] [place], [place], [address], 12/15/2024 14:37:20 12/09/19 25 12/08/2024 CBC WITH DIFFE RENTI AL/PL ATELE T eos (absolute) 0.3 x10e3 /uL 0.0-0. 4 normal Not Available [facility] ([facility]) [address] [place], [place], [address], 12/15/2024 14:37:20 12/09/19 25 12/08/2024 CBC WITH DIFFE RENTI AL/PL ATELE T baso (absolute) 0.1 x10e3 /uL 0.0-0. 2 normal Not Available [facility] ([facility]) [address], [place], [place], [address], 12/15/2024 14:37:20 12/09/19 25 12/08/2024 CBC WITH DIFFE RENTI AL/PL ATELE T immature granulocytes 0 % not estab. Not Available [facility] ([facility]) [address] [place], [address], 12/15/2024 14:37:20 12/09/19 25 12/08/2024 CBC WITH DIFFE RENTI AL/PL ATELE T immature grans (abs) 0.0 x10e3 /uL 0.0-0. 1 Not Available [facility] ([facility]) [address] [place], [address], 12/15/2024 14:37:20 12/09/19 25 12/08/2024 CBC WITH DIFFE RENTI AL/PL ATELE T NRBC [employer] Not Available [facility] ([facility]) [address] [place], [address], 12/15/2024 14:37:20 12/09/19 25 12/08/2024 CBC WITH DIFFE RENTI AL/PL ATELE T hematology comments: [employer] Not Available [facility] ([facility]) [address], [place], [place], [address], 12/15/2024 14:37:20 12/09/19 25 12/09/2024 COMP. METAB OLIC PANEL (14) glucose 91 mg/dL 70-99 normal Not Available [facility] ([facility]) [address], [place], [address], 12/15/2024 14:37:21 12/09/19 25 12/09/2024 COMP. METAB OLIC PANEL (14) BUN 33 mg/dL 8-27 above high normal Not Available [facility] ([facility]) [address], [place], [address], 12/15/2024 14:37:21 12/09/19 25 12/09/2024 COMP. METAB OLIC PANEL (14) creatinine 0.86 mg/dL 0.57-1 .00 normal Not Available [facility] ([facility]) [address], [place], [place], [address], 12/15/2024 14:37:21 12/09/19 25 12/09/2024 COMP. METAB OLIC PANEL (14) eGFR 74 mL/mi n/1.7 3 >59 normal Not Available [facility] ([facility]) [address] [place], [address], 12/15/2024 14:37:21 12/09/19 25 12/09/2024 COMP. METAB OLIC PANEL (14) BUN/creatini ne ratio 38 12-28 above high normal Not Available [facility] ([facility]) [address] [place], [address], 12/15/2024 14:37:21 12/09/19 25 12/09/2024 COMP. METAB OLIC PANEL (14) sodium 139 mmol/ L 134-14 4 normal Not Available [facility] ([facility]) [address] [place], [address], 12/15/2024 14:37:21 12/09/19 25 12/09/2024 COMP. METAB OLIC PANEL (14) potassium 4.4 mmol/ L 3.5-5. 2 normal Not Available [facility] ([facility]) [address], [place], [address], 12/15/2024 14:37:21 12/09/19 25 12/09/2024 COMP. METAB OLIC PANEL (14) chloride 104 mmol/ L 96-106 normal Not Available [facility] ([facility]) [address], [place], [address], 12/15/2024 14:37:21 12/09/19 25 12/09/2024 COMP. METAB OLIC PANEL (14) carbon dioxide, total 21 mmol/ L 20-29 normal Not Available [facility] ([facility]) [address], [place], [address], 12/15/2024 14:37:21 12/09/19 25 12/09/2024 COMP. METAB OLIC PANEL (14) calcium 9.4 mg/dL 8.7-10 .3 normal Not Available [facility] ([facility]) [address], [place], [address], 12/15/2024 14:37:21 12/09/19 25 12/09/2024 COMP. METAB OLIC PANEL (14) protein, total 6.5 g/dL 6.0-8. 5 normal Not Available [facility] ([facility]) [address], [place], [address], 12/15/2024 14:37:21 12/09/19 25 12/09/2024 COMP. METAB OLIC PANEL (14) albumin 4.2 g/dL 3.9-4. 9 normal Not Available [facility] ([facility]) [address], [place], [address], 12/15/2024 14:37:21 12/09/19 25 12/09/2024 COMP. METAB OLIC PANEL (14) globulin, total 2.3 g/dL 1.5-4. 5 Not Available [facility] ([facility]) [address], [place], [address], 12/15/2024 14:37:21 12/09/19 25 12/09/2024 COMP. METAB OLIC PANEL (14) bilirubin, total 0.4 mg/dL 0.0-1. 2 normal Not Available [facility] ([facility]) [address], [place], [address], 12/15/2024 14:37:21 12/09/19 25 12/09/2024 COMP. METAB OLIC PANEL (14) alkaline phosphatase 87 IU/L 44-121 normal Not Available [facility] ([facility]) [address], [place], [address], 12/15/2024 14:37:21 12/09/19 25 12/09/2024 COMP. METAB OLIC PANEL (14) AST (SGOT) 62 IU/L 0-40 above high normal Not Available [facility] ([facility]) [address], [place], [address], 12/15/2024 14:37:21 12/09/19 25 12/09/2024 COMP. METAB OLIC PANEL (14) ALT (SGPT) 89 IU/L 0-32 above high normal Not Available [facility] ([facility]) [address], [place], [address], 12/15/2024 14:37:21 12/09/19 25 12/09/2024 LIPID PANEL cholesterol, total 117 mg/dL 100-19 9 normal Not Available [facility] ([facility]) [address], [place], [address], 12/15/2024 14:37:22 12/09/19 25 12/09/2024 LIPID PANEL triglyceride s 69 mg/dL 0-149 normal Not Available [facility] ([facility]) [address] [place], [address], 12/15/2024 14:37:22 12/09/19 25 12/09/2024 LIPID PANEL HDL cholesterol 59 mg/dL >39 normal Not Available [facility] ([facility]) [address] [place], [address], 12/15/2024 14:37:22 12/09/19 25 12/09/2024 LIPID PANEL VLDL cholesterol apurva 14 mg/dL 5-40 Not Available [facility] ([facility]) [address] [place], [address], 12/15/2024 14:37:22 12/09/19 25 12/09/2024 LIPID PANEL LDL chol calc ([facility]) 44 mg/dL 0-99 Not Available [facility] ([facility]) [address] [place], [address], 12/15/2024 14:37:22 12/09/19 25 12/09/2024 LIPID PANEL LDL calc comment: [employer] Not Available [facility] ([facility]) [address] [place], [address], 12/15/2024 14:37:22 12/09/19 25 12/15/2024 VITAM IN E vitamin E(alpha tocopherol) 13.1 mg/L 9.0-29 .0 Not Available [facility] ([facility]) [address] [place], [address], 12/15/2024 14:37:23 12/09/19 25 12/15/2024 VITAM IN [...] in E defic ient. Not Available [facility] ([facility]) [address], [place], [place], [address], 12/15/2024 14:37:23 12/09/19 25 12/09/2024 HEMOG LOBIN A1C hemoglobin A1C 5.5 % 4.8-5. 6 normal Predi abete s: 5.7 - 6.4 Diabe inessa: >6.4 Glyce amauri contr ol for adult s with diabe inessa: <7.0 Not Available [facility] ([facility]) [address], [place], [place], [address], 12/15/2024 14:37:24 12/09/19 25 12/09/2024 FOLAT E (FOLI C ACID) , SERUM folate (folic acid), serum >20.0 NG/mL >3.0 A serum folat e yanet ntrat ion of less than 3.1 ng/mL is consi dered to repre sent clini apurva defic iency . Not Available [facility] ([facility]) [address], [place], [place], [address], 12/15/2024 14:37:24 12/09/19 25 12/15/2024 VITAM IN [...] Drug Admin istra tion. Not Available [facility] ([facility]) [address], [place], [place], [address], 12/15/2024 14:37:25 12/09/19 25 12/09/2024 VITAM IN [...] um and D. Joanna roque [place]: [facility] [employer] . 2. Junie lugo [place], Garrick wallace [place], Valeria off-F aminaar i TURCIOS, et al. Evalu ation , treat ment, and preve ntion of vitam in D defic iency : an Endoc rine Socie ty clini apurva pract ice guide line. JCEM. 2010; 96(7) :1911 -30. Not Available [facility] ([facility]) [address] [place], [address], 12/15/2024 14:37:26 12/09/19 25 12/14/2024 VITAM IN B1 (THIA MINE) , BLOOD vit. B1, whole blood 324.9 nmol/ L 66.5-2 00.0 above high normal Not Available [facility] ([facility]) [address] [place], [address], 12/15/2024 14:37:27 12/09/19 25 12/13/2024 METHY LMALO ALICIA ACID, SERUM methylmaloni c acid, serum 278 nmol/ L 0-378 Not Available [facility] ([facility]) [address] [place], [address], 12/15/2024 14:37:28 12/09/19 25 12/11/2024 COPPE R, SERUM OR PLASM A copper, serum or plasma 106 ug/dL 80-158 Detec tion Limit = 5 Not Available [facility] ([facility]) [address], [place], [place], [address], 12/15/2024 14:37:29 12/09/19 25 12/11/2024 ZINC, PLASM A OR SERUM zinc, plasma or serum 75 ug/dL 44-115 normal Detec tion Limit = 5 Not Available [facility] ([facility]) [address], [place], [place], [address], 12/15/2024 14:37:30 12/09/19 25 12/09/2024 PREAL BUMIN prealbumin 22 mg/dL 10-36 Not Available [facility] ([facility]) [address], [place], [place], [address], 12/15/2024 14:37:30 12/09/19 25 12/12/2024 SELEN IUM, BLOOD selenium, blood 155 ug/L 100-34 0 Detec tion Limit = 10 Not Available [facility] ([facility]) [address], [place], [place], [address], 12/15/2024 14:37:31 Result Notes None recorded. Problems Name Problem SNOMED Code Status Onset Date Resolution Date Notes Provider Name and Address Organization Details Recorded Time Metabolic dysfuncti on-associ ated steatohep atitis 761342751 Active 2023 Ernesto Amezcua PA-C [address] , [place], [address] , [facility] - NT [facility] & [place] 5 14:30:35 Gastroeso phageal reflux disease without esophagit is 185036144 Active 2023 Ernesto Amezcua PA-C [address] , [place], [address] , [place] - [facility] & [place] 4 13:48:57 Chronic idiopathi c constipat ion 74532795 Active 2021 Not Available [facility] 3 16:06:44 Gastroeso phageal reflux disease 285971602 Active 2021 Not Available [facility] 3 16:06:44 Diarrhea 09788091 Active 2021 Not Available [facility] 3 16:06:44 Hypokalem ia 37162717 Active 2021 Not Available [facility] 3 16:06:44 Abdominal pain 78730693 Active 2021 Not Available [facility] 3 16:06:44 Myocardia l infarctio n 64804501 Completed 202103/25/2022 Azeb Quesada null, [place] - [facility] - [place] & [place] 2 14:37:03 Fibromyal dominique 613243540 Active 2021 Not Available [facility] 3 16:06:44 Mild dementia 73321871024 4108 Active 2021 Not Available [facility] 3 16:06:44 Chronic obstructi ve pulmonary disease 47458850 Active 2021 Not Available [facility] 3 16:06:44 Hiatal hernia 57207299 Completed 202103/25/2022 Azeb Quesada null, [place] - [facility] - [place] & [place] 2 14:38:57 Chronic depressio n 687476225 Active 2021 Not Available [facility] 3 16:06:44 Obesity 622021358 Active 2021 Ernesto Amezcua PA-C [address] [facility], [place], [address] , [place] - [facility] - [place] & [place] 2 14:51:36 Hypertens silvino disorder 92726809 Active 2022 Not Available [facility] 3 16:06:44 Dyslipide franc 628245353 Active 2022 Not Available [facility] 3 16:06:44 Morbid obesity 615306906 Active 2022 Not Available [facility] 3 16:06:44 Dizziness 828201263 Active 2022 Not Available [facility] 3 16:06:44 Intention al weight loss 558602801 Active 2022 Not Available [facility] 3 16:06:44 Constipat ion 70427719 Active 2022 Ernesto Amezcua PA-C [address], [place], [address] [place] [address] , [place] - [facility] - [place] & [place] 3 15:41:42 Overweigh t 254140070 Active 2023 Aden Husain DNP, JUNIOR LEGAL SECRETARY, [employer] [address], [place], [address] [place] [address] , [place] - [facility] [place] & [place] 4 09:57:50 Fatigue 18794900 Active 2023 Aden Husain DNP, JUNIOR LEGAL SECRETARY, [employer] [address], [place], [address] [place] [address] , [place] [facility] & [place] 4 10:00:39 Liver enzymes level above reference range 477982208 Active 2023 Aden Husain DNP, JUNIOR LEGAL SECRETARY, [employer] [address], [place], [address] , [place] [facility] - [place] & [place] 4 13:32:45 Low back pain 589761557 Active 2023 Aden Husain DNP, JUNIOR LEGAL SECRETARY, [employer] [address], [place], [address] , [place] [facility] - [place] & [place] 4 15:56:35 Irritable bowel syndrome character ized by constipat ion 971482769 Active 2023 Ernesto Amezcua PA-C [address], [place], [address] [place] [address] , [place] [facility] & [place] 4 09:08:46 Problem Notes None recorded. Procedures Surgical History Date Name Laterality Status Provider Name and Address Organization Details Recorded Time 07/23/[address], LD [address] , [place], [address], [facility] - [facility] & [place] 08/14/2022 16:17:22 05/28/20 21 Date of Last Pap Smear completed RIMMA RAY RD, LD [address] , [place], [address], [place] [facility] [facility] & [place] 08/14/2022 16:17:22 12/20/19 21 Date of Last Colonoscopy completed RIMMA RAY RD, LD [address] , [place], [address], [facility] - [facility] & [place] 08/14/2022 16:17:22 11/17/19 20 Most Recent Bone Density completed RIMMA RAY RD, LD [address] , [place], [address], [facility] - [facility] & [place] 08/14/2022 16:17:22 Appendectomy completed Not Available [facility] 13:08:39 extraction of wisdom tooth completed Not Available [facility] 08/10/2022 13:08:39 lithotripsy completed Not Available [facility] 07/14 13:08:39 Colonoscopy completed Marychuy Quesada [place] - [place] [facility] & [place] 08/13/2022 11:21:25 EGD completed Marychuy Quesada [place] - [facility] & [place] 08/13/2022 11:21:36 Gastric Bypass completed Dipesh Dow [place] - [facility] & [place] 12/29/2022 08:20:27 Imaging Results None recorded. Procedure Notes None recorded. Medical Equipment None Reported. Allergies Allergen ID Allergen Name Allergen Category Reaction Reaction Severity Criticality Documentation Date Start Date Code Code System Note Provider Name and Address Organization Details Recorded Time 91664 Product containin g penicilli n (product) medicatio n Not available Not available Not available 03/25/2022 27669 8001 SNOMED Azeb aguillon [place] - [facility]. [facility] & [place] 2 14:01:10 359157 indometha gen medicatio n Not available Not available Not available 06/19/2024 5781 RxNorm Other react ions and sever ities : 'Adve rse react ion to subst ance' . Kary Rust null, [facility] & [place] 4 14:05:45 553073 penicilli n V Not available Not available Not available Not available 06/19/2024 7984 RxNorm Other react ions and sever ities : 'Anap hylax is due to subst ance' . Kary aguillon, [facility] & [place] 4 14:05:45 291826 milnacipr an medicatio n Not available Not available Not available 06/19/2024 31207 0 RxNorm Other react ions and sever ities : 'Adve rse react ion to subst ance' . Kary Rust null, [facility] & [place] 4 14:05:45 52215 Savella medicatio n Not available Not available Not available 08/13/2022 67754 6 RxNorm Marychuy Quesada [facility], [facility] & [place] 3 11:18:57 Medications Name Sig Start Date [...] cm 98.1 [degF] 75 /min 24.8 kg/m2 10437.7 4 g 96 mm[Hg] 70 mm[Hg] Araceli Escoto DARON [facility] & [place] 5 09:01:03 Date Recorded Body height Body mass index (BMI) Body weight Body temperature Heart rate Provider Name and Address Organization Details Last Updated DateTime 12/27/2024 162.56 cm 24.7 kg/m2 98973.58 g 98.4 [degF] 97 /min [facility] EDY Escoto [facility] & [place] 5 14:16:54 Date Recorded Body height Body temperature Heart rate Body mass index (BMI) Body weight Systolic blood pressure Diastolic blood pressure Provider Name and Address Organization Details Last Updated DateTime 4 162.56 cm 97.8 [degF] 76 /min 26.2 kg/m2 25001.8 4 g 109 mm[Hg] 73 mm[Hg] Araceli TOM [facility] & [place] 4 09:28:16 Date Recorded Body height Body temperature Heart rate Body mass index (BMI) Body weight Systolic blood pressure Diastolic blood pressure Provider Name and Address Organization Details Last Updated DateTime 4 162.56 cm 98.7 [degF] 89 /min 25 kg/m2 97606.4 1 g 113 mm[Hg] 81 mm[Hg] Araceli Escoto DARON [facility] & [place] 4 09:17:32 Date Recorded Body height Body mass index (BMI) Body weight Body temperature Heart rate Heart rate Oxygen saturation Oxygen saturation in Arterial blood by Pulse oximetry Systolic blood pressure Diastolic blood pressure Provider Name and Address Organization Details Last Updated DateTime 4 162.56 cm 24.8 kg/m2 70931.0 2 g 97.4 [degF] 99 /min 98 /min 97 % 97 % 107 mm[Hg] 73 mm[Hg] Francisca Michele [facility] & [place] 4 13:05:54 Social History Question Answer Notes LastModified by [employer] Details LastModified Time Tobacco Smoking Status Former Smoker quit 3 years ago Araceli Velasquez [facility], [facility] & [place] 09/06/2023 09:49:34 Do You Have An Advance Directive? No [email or web address] Information not available 08/14/2022 Are You Blind Or Do You Have Difficulty Seeing? No [email or web address] Information not available 08/14/2022 What Was The Date Of Your Most Recent Tobacco Screening? 08/10/2022 [email or web address] Information not available 08/14/2022 Are You Passively Exposed To Smoke? No [email or web address] Information not available 08/14/2022 How Much Tobacco Do You Smoke? No Information not available 08/14/2022 Sex: Male Functional Status Question Answer Note LastModified by [employer] Details LastModified Time Do you use any illicit or recreational drugs? No [email or web address] Information not available 08/10/2022 What is your level of alcohol consumption? None [email or web address] Information not available 08/10/2022 Do you or have you ever used smokeless tobacco? Never used smokeless tobacco [email or web address] Information not available 08/14/2022 What is your exercise level? None [email or web address] Information not available 08/14/2022 Mental Status Question Answer Note LastModified by Organization D etails LastModified Time Do you feel stressed (tense, restless, nervous, or anxious, or unable to sleep at night)? [id number] [email or web address] Information not available 08/14/2022 Family History Relationship Description Onset Age of this Age Resolved Age Notes LastModified by Organization Details LastModified Time Father Obesity [email or web address] Not availa ble 08/10/2022 08:30:50 Father Diabetes mellitus [email or web address] Not available 2024 14:11:10 Father Hypertensive disorder Not available 08:31:23 Father Heart disease [email or web address] Not available 08:31:48 Father Cerebrovascu lar accident [email or web address] Not available 08/10/2022 08:32:04 Father Hypercholest erolemia [email or web address] Not available 08:32:27 Father Asthma [email or web address] Not available 12/27/2024 14:11:10 Father Allergy pt. added direct ly (08/10) [email or web address] Not available 08/10/2022 13:04:20 Father Disorder of endocrine system pt. added direct ly (08/10) [email or web address] Not available 08/10/2022 13:07:54 Maternal Grandmother Obesity [email or web address] Not available 0 08/10/2022 08:30:50 Maternal Grandmother Hypertensive disorder [email or web address] Not available 08:31:23 Maternal Grandmother Heart disease Not available 08:31:49 Mother Hypertensive disorder [email or web address] Not available 08:31:23 Mother Heart disease [email or web address] Not available 08:31:48 Mother Cerebrovascu lar accident [email or web address] Not available 08/10/2022 08:32:04 Mother Hypercholest erolemia [email or web address] Not available 08:32:27 Mother Allergy pt. added direct ly (08/10) [email or web address] Not available 08/10/2022 13:04:20 Brother Hypertensive disorder [email or web address] Not available 08:31:23 Brother Heart disease [email or web address] Not available 08:31:49 Brother Hypercholest [email or web address] Not available 08:32:27 Brother Cerebrovascu lar accident pt. added direct ly (09/03) [email or web address] Not available 09/03/2023 11:07:40 Sister Hypertensive disorder [email or web address] Not available 08:31:23 Sister Hypercholest erolemia [email or web address] Not available 08:32:27 Maternal Grandfather Heart disease [email or web address] Not available 08:31:49 Maternal Uncle Allergy pt. added direct ly (08/10) [email or web address]-13 Not available 08/10/2022 13:04:20 Paternal Grandmother Obesity pt. added direct ly (08/10) [email or web address] Not available 08/10/2022 13:08:19 Medical History Condition Response Gout N Other Y Kidney Stones Y Depression Y COPD Y Osteoporosis/Osteopenia Y Constipation Y Spine Problems Y Heart Attack (ID) Y Obstructive Sleep Apnea Y Anxiety Disorder [...] preservative 7 completed Not Available [facility] 01/01/2023 16:06:44 Influenza, recombinant, quadrivalent, PF 1 completed Not Available [facility] 01/01/2023 16:06:44 Influenza, recombinant, quadrivalent, PF 0 completed Not Available [facility] 01/01/2023 16:06:44 zoster recombinant 1 completed Not Available [facility] 01/01/2023 16:06:44 zoster recombinant 1 completed Not Available [facility] 01/01/2023 16:06:44 MMR 6 completed Not Available [facility] 01/01/2023 16:06:44 COVID-19, mRNA, LNP-S, PF, 100 mcg/0.5mL dose or 50 mcg/0.25mL dose 1 completed Not Available [facility] [place] [facility] 01/01/2023 16:06:44 COVID-19, mRNA, LNP-S, PF, 100 mcg/0.5mL dose or 50 mcg/0.25mL dose 1 completed Not Available [facility] [place] [facility] 01/01/2023 16:06:44 COVID-19, mRNA, LNP-S, PF, 100 mcg/0.5mL dose or 50 mcg/0.25mL dose 1 completed Not Available [facility] 01/01/2023 16:06:44 Pneumococcal conjugate PCV20, polysaccharide LLM608 conjugate, adjuvant, PF 2 completed Not Available [facility] 01/01/2023 16:06:44 pneumococcal polysaccharide PPV23 1 completed Not Available [facility] [place] [facility] 01/01/2023 16:06:44 pneumococcal polysaccharide PPV23 7 completed Not Available [facility] 01/01/2023 16:06:44 Influenza, split virus, quadrivalent, PF 9 completed Not Available [facility] 01/01/2023 16:06:44 Influenza, split virus, quadrivalent, PF 2 completed Not Available [facility] 01/01/2023 16:06:44 Influenza, split virus, quadrivalent, PF 8 completed Not Available [facility] 01/01/2023 16:06:44 influenza, unspecified formulation 4 completed Kary Rust null, [place] - [facility] - [place] & [place] 08/08/2024 13:51:39 Respiratory syncytial virus (RSV) MAB, unspecified 4 completed Araceli Velasquez null, [place] [facility] [place] & [place] 06/06/2024 09:21:15 Influenza, high-dose, quadrivalent, PF 3 completed Kary Rust null, [place] [facility] & [place] 08/08/2024 13:51:39 RSV, recombinant, protein subunit RSVpreF, adjuvant reconstituted, 0.5 mL, PF 4 completed Kary Rust null, [place] [facility] & [place] 08/08/2024 13:51:39 Influenza, high-dose, trivalent, PF 4 completed EDY Capone LPD[facility]ON - [place] & [place] 08/08/2024 13:51:39 Past Encounters Encounter ID Performer Location Encounter Start Date Encounter Closed Date Diagnosis/Indication Diagnosis SNOMED-CT Code Diagnosis ICD10 Code Diagnosis Note [id number] Ernesto Amezcua PA-C [facility] [address] [facility] [address] [place] [address] 03/25/2022 13:56:07 03/25/2022 14:27:57 Chronic idiopathic constipation 65677008 K59.04 Continue current bowel regimen with stool softners, fiber supplement , and Miralax as needed Gastroesop hageal reflux disease 021541305 K21.9 Increase PPI to twice daily due to refractory symptoms Obesity 685307885 E66.9 Referral to Bariatrics to discuss weight loss options. [id number] RANI Rosario [facility] [address] [facility] [address] [place] [address] 08/13/2022 07:57:41 08/13/2022 11:52:06 Obesity 395369357 E66.9 The patient will be scheduled for [...] been completed Chronic ob structive pulmonary disease 27927073 J44.9 Hypertensive disorder 38 189075 I10 Dyslipidemia 378303758 E 78.5 Hx CAD s/p ID [id number] Gastroesop hageal reflux disease 863508662 K21.9 We discussed concerns of worsening gastroesop [...] lifelong contraindi cation to tobacco/ni cotine use [id number] Ernesto Amezcua PA-C [facility] [address] [facility] [address] [place] [address] 09/21/2022 13:44:59 09/21/2022 14:12:51 Chronic idiopathic constipation 69183642 K59.04 Gastroesop hageal reflux disease 619434561 K21.9 Obesity 075859165 E66.9 [id number] Gabo Sahu DO [facility] [address] [facility] [address] [place] [address] 12/16/2022 08:52:42 12/16/2022 13:36:20 Morbid obesity 867253886 E66.01 Pre-surger y evaluation 766847957 Z01.818 Postoperative pain 49789 9007 G89.18 Hypertensive disorder 38 698508 I10 Gastroesop hageal reflux disease 973052683 K21.9 [id number] Aden Husain DNP, ARSENIO, [employer] [facility] n Bariatric [facility] and Adv S[facility] [address] [facility] [address] [place] [address] 12/29/2022 07:58:00 12/29/2022 10:15:25 History of bariatric surgical procedure 432057733 Z98.84 Chronic depression 90682 0009 F32.A Chronic ob structive pulmonary disease 34808441 J44.9 Dyslipidemia 177590349 E 78.5 Fibromyalgia 266919314 M 79.7 Hypertensive disorder 38 570412 I10 advised to follow back up with pcp regarding elevated blood pressure and dizziness. Morbid obesity 515958472 E66.01 Dizziness 803930808 R42 Intentiona l weight loss 352741031 R63.8 [id number] Aden Husain DNP, ARSENIO, [employer] [facility] [address] [facility] [address] [place] [address] 01/19/2023 09:44:10 01/19/2023 11:03:53 History of bariatric surgical procedure 279095357 Z98.84 Intentiona l weight loss 514658762 R63.8 History of gastrectomy 704030962 Z90.3 Advised qid intake 50% protein 2052-9553 calories/d y less than 100 carbs/dyPa tient was see dietitian today. Patient is status post bariatric surgery and at increased risk for vitamin deficienci es and malnutriti on. Bariatric vitamin panel ordered today. Patient will be contacted to correct any vitamin deficienci es. Chronic ob structive pulmonary disease 81403842 J44.9 Dyslipidemia 560117525 E 78.5 Fibromyalgia 016058879 M 79.7 Hypertensive disorder 38 198601 I10 advised to follow back up with pcp regarding elevated blood pressure and dizziness. Morbid obesity 387913264 E66.01 Dizziness 057967761 R42 [id number] Aden Husain, CAMMIE, JUNIOR LEGAL SECRETARY, [employer] [facility] [address] [place] [address] [address] [place] [address] 03/19/2023 10:10:54 03/19/2023 11:00:26 History of bariatric surgical procedure 674553301 Z98.84 Intentiona l weight loss 532832919 R63.8 History of gastrectomy 543410955 Z90.3 Advised qid intake 50% protein 9577-0641 calories/d y less than 100 carbs/dyLo ng [...] to correct any vitamin deficienci es. Dyslipidemia 893179990 E 78.5 Fibromyalgia 338289908 M 79.7 Obesity 013620478 E66.9 [id number] Ernesto Amezcua, PA-C [facility] [address] [facility] [address] [place] [address] 05/20/2023 14:50:51 05/20/2023 15:32:08 Obesity 979260727 E66.9 History of bypass of stomach 104066185 Z98.84 History of gastroesophageal reflux disease 5361008466 9106 Z87.19 Constipation 53601315 K5 9.00 [id number] Aden Husain, DNP, JUNIOR LEGAL SECRETARY, [employer] [facility] [address] [facility] [address] [place] [address] 05/28/2023 09:12:11 05/28/2023 09:46:17 History of bariatric surgical procedure 504623922 Z98.84 Intentiona l weight loss 283951235 R63.8 History of gastrectomy 144487329 Z90.3 Advised qid intake 50% protein 8425-8526 calories/d y less than 100 carbs/dy Long [...] correct any vitamin deficienci es. Chronic depression 94320 0009 F32.A Chronic id iopathic constipation 38773383 K59.04 Dyslipidemia 682025037 E 78.5 Fibromyalgia 374859960 M 79.7 Hypertensive disorder 38 391200 I10 Obesity 527165261 E66.[id number]OMAS RDN, LD [facility] [address] [facility] [address] [place] [address] 05/28/2023 09:47:21 05/28/2023 10:33:33 Obesity 701074834 E66.9 Discussed lifestyle modificati ons for continued weight loss and optimal nutrition Deficient knowledge of food and/or nutrition 2745112442 Z76.89 RDN advised pt on ways she can increase her protein and calorie intake, including adding peanut butter with fruits and making mixed dishes such as reduced fat casseroles . Advised pt to try baked apples with a small amount of canola oil, cinnamon and Splenda or similar alternativ e as needed. [id number] Aden Husain, CAMMIE, JUNIOR LEGAL SECRETARY, [employer] [facility] [address] [facility] [address] [place] [address] 09/06/2023 09:37:05 09/06/2023 10:21:52 Dyslipidemia 027941624 E78.5 Fibromyalgia 583714961 M 79.7 Hypertensive disorder 38 904522 I10 Overweight 166026026 E66 .3 Intentiona l weight loss 998661595 R63.8 History of gastrectomy 952276325 Z90.3 Advised qid intake 50% protein 7725-2284 calories/d y less than 100 carbs/dy Long [...] to correct any vitamin deficienci es. Fatigue 72138286 R53.83 [id number] Aden Husain, CAMMIE, JUNIOR LEGAL SECRETARY, [employer] [facility] [address] [facility] [address] [place] [address] 12/07/2023 13:03:52 12/07/2023 14:39:49 History of bariatric surgical procedure 669276104 Z98.84 Intentiona l weight loss 185132036 R63.8 History of gastrectomy 690438525 Z90.3 Advised qid intake 50% protein 2249-8734 calories/d y less than 100 carbs/dy Long [...] to correct any vitamin deficienci es. Dyslipidemia 140922596 E 78.5 Hypertensive disorder 38 070131 I10 Overweight 312779908 E66 .3 Chronic ob structive pulmonary disease 19255106 J44.9 Liver enzy mes level above reference range 601085244 R74.01 [id number] Jonas Ball MD [facility] [address] [place] [address] 12/21/2023 14:58:32 12/21/2023 16:40:24 Obesity 149684222 E66.9 History of bypass of stomach 053277302 Z98.84 History of gastroesophageal reflux disease 3977064514 9106 Z87.19 Constipation 79515185 K5 9.00 Liver enzy mes level above reference range 827020371 R74.01 [id number] Ernesto Amezcua PA-C [facility] [address] [facility] [address] [place] [address] 03/02/2024 08:10:22 03/02/2024 09:21:52 Obesity 502022575 E66.9 History of bypass of stomach 644929276 Z98.84 History of gastroesophageal reflux disease 6985393319 9106 Z87.19 Liver enzy mes level above reference range 050899306 R74.01 Irritable bowel syndrome characterized by constipation 255508844 K58.1 [id number] dAen Husain, DNP, JUNIOR LEGAL SECRETARY, [employer] [facility] [address] [facility] [address] [place] [address] 03/06/2024 09:07:07 03/06/2024 10:03:41 History of bariatric surgical procedure 458382139 Z98.84 Intentiona l weight loss 735365861 R63.8 History of gastrectomy 559940863 Z90.3 Advised qid intake 50% protein 2960-0931 calories/d y less than 100 carbs/dyLo ng [...] to correct any vitamin deficienci es. Dyslipidemia 682936745 E 78.5 Hypertensive disorder 38 345622 I10 Overweight 342076611 E66 .3 Chronic id iopathic constipation 17531941 K59.04 [id number] Aden Husian, DNP, JUNIOR LEGAL SECRETARY, [employer] AIR CONDITION[employer]-C [facility] Bariatric s and Adv Surg [address] [facility] [address] [place] [address] 06/06/2024 09:07:53 06/06/2024 09:44:14 Intentional weight loss 405131405 R63.8 History of gastrectomy 878789463 Z90.3 Advised qid intake 50% protein 4825-3017 calories/d y less than 100 carbs/dyLo ng [...] to correct any vitamin deficienci es. At [facility] ed risk of nutritional deficit 588032148 Z91.89 Chronic ob structive pulmonary disease 99372686 J44.9 Dyslipidemia 620905763 E 78.5 Hypertensive disorder 38 306168 I10 Liver enzy mes level above reference range 095786812 R74.01 Overweight 273117745 E66 .3 [id number] Ernesto Amezcua PA-C [facility] [address] [facility] [address] [place] [address] 06/26/2024 12:47:56 06/26/2024 13:41:37 Chronic idiopathic constipation 78833590 K59.04 Metabolic dysfunction-associate d steatohepatitis 929785063 K75.81 Liver enzy mes level above reference range 779553881 R74.01 Gastroesop hageal reflux disease without esophagitis 783493554 K21.9 History of colonoscopy 2437256928 09 Z98.238 [id number] Aden Husain, DNP, JUNIOR LEGAL SECRETARY, [employer] AIR CONDITION[employer]-C [facility] Bariatric s and Adv Surg [address] [place] [address] 12/08/2024 08:48:35 12/08/2024 09:28:10 History of bariatric surgical procedure 089038878 Z98.84 Intentiona l weight loss 045131252 R63.8 History of gastrectomy 744803944 Z90.3 Advised qid intake 50% protein 3455-0207 calories/d y less than 100 carbs/dy Long [...] to correct any vitamin deficienci es. At [facility] ed risk of nutritional deficit 862727683 Z91.89 Dyslipidemia 590146716 E 78.5 Hypertensive disorder 38 103761 I10 Overweight 597650390 E66 .3 [id number] Ernesto Amezcua PA-C [facility] [facility] [address] [place] [address] 12/27/2024 14:10:09 12/27/2024 14:38:18 Liver enzymes level above reference range 078274393 R74.01 Metabolic dysfunction-associate d steatohepatitis 733220457 K75.81 Gastroesop hageal reflux disease without esophagitis 408118981 K21.9 Chronic id iopathic constipation 32368436 K59.04 History of colonoscopy 5292708510 09 Z98.890 Health Concerns Section Related Observation LastModified by Organization Detai ls LastModified Time None Recorded Concern Status LastModified by Organization Details LastModified Time None Recorded Advance Directives Directive N: Payers Insurance Date Sequence Insurance Name Policy Number Policy Acosta Covered Member ID Acosta Member ID Guarantor Name 01/04/2025 1 [place]ICARE [place]: [place]PS Maria Isabel Mark Doran [id number] Maria Isabeldesiree HollandWinthrop 01/04/2025 2 AARP (MEDICARE SUPPLEMENT) Maria Isabel Mark Doran [id number] Maria Isabel Winthrop 01/04/2025 [place] Maria Isabel Mark Doran [id number] Maria Isabel Espinoza 01/04/2025 1 [place] Maria Isabel Mark Doran [id number] Maria Isabel Espinoza 12/04/2020 3 [place] [id number] R Stanislav Doran [id number] Maria Isabel Winthrop 01/04/2025 2 [place] Maria Isabel Mark Doran [id number] Maria Isabel Espinoza 01/04/2025 4 [employer] (MEDICARE REPLACEMENT/ ADVANTAGE - HMO) Maria Isabel Mark Doran [id number] Maria Isabeldesiree HollandWinthrop 01/04/2025 1 [employer] (MEDICARE REPLACEMENT/ ADVANTAGE - PPO) Maria Isabel Mark Doran [id number] Maria Isabeldesiree Doran Notes Date Note Type [...] kilo calories Edward Denilson Rodrigue, DNP, ARSENIO, [employer] CONDITION[employer]-C [address], [place], [address], [facility] 03/06/2024 10:54:05 06/06/2024 text/html Patient presents [...] 1309 kilo calories Aden Husain DNP, ARSENIO, [employer]-C [address], [place], [address], [facility] 06/06/2024 11:11:04 06/26/2024 text/html CURRENT (06/26/24): [...] bypass 1.5 years ago. Ernesto Amezcua PA-C [address], [place], [address], [facility] 06/26/2024 13:49:44 12/08/2024 text/html Patient presents [...] = 1261 kilo calories Aden Husain, DNP, JUNIOR LEGAL SECRETARY, [employer] CONDITION[employer]-C [address], [place], [address], [facility] [place] & [place] 12/08/2024 09:20:24 12/27/2024 text/html PREVIOUS (06/26/24): Ms. [...] overall at this time. Ernesto Amezcua PA-C [address], [place], [address], [place] - [facility] - [place] & [place] 12/27/2024 14:41:34 OBGyn Episode No OBEpisode recorded.
--- OUTSIDE RECORDS SUMMARY | 2025-01-08 13:27 | XMS_ITS | Continuity of Care Document ---
Author Organization [facility] & [facility] Bariatrics and Adv Surg Address [address] [facility] [address] [place] [address] Care Team Providers Care Pole Maker Name Role Phone CAREYGALIESTEFANIA GENET Primary Care Provider [phone] Assessment No assessment recorded. Plan of Treatment Reminders Order Date Submit Date Provider Last Modified By Organization Details Last Modified Time Details Appointments Establish ed Visit 15 min 2024 01:45P M Ernesto Amezcua PA-C Not available Not available Not available OV EST 20 2024 10:00A M Aden Husain, DNP, AUTOGRAPHER, RESIDENTIAL REAL ESTATE ASSISTANT-C Not available Not available Not available Lab CBC w/ auto diff 2024 025 [facility], [address], [address], [place], [address], 12/15/2024 14:37:20 CMP, serum or plasma 2024 025 [facility], [address], [address], [place], [address], 12/15/2024 14:37:21 TSH + free T4, serum 2024 025 [facility], [address], [address], [place], [address], 12/15/2024 14:37:19 HbA1c (hemoglob in A1c), blood 2024 025 [facility], [address], [address], [place], [address], 12/15/2024 14:37:24 lipid panel, serum 2024 025 [facility], [address], [address], [place], [address], 12/15/2024 14:37:22 copper, serum or plasma 2024 025 [facility], [address], [address], [place], [address], 12/15/2024 14:37:29 selenium, quantitat silvino, blood 2024 025 [facility], [address], [address], [place], [address], 12/15/2024 14:37:31 zinc, serum or plasma 2024 025 [facility], [address], [address], [place], [address], 12/15/2024 14:37:30 iron + TIBC + ferritin, serum 2024 025 [facility], [address], [address], [place], [address], 12/15/2024 14:37:18 folate, serum 2024 025 [facility], [address], [address], [place], [address], 12/15/2024 14:37:24 vitamin E, serum 2024 025 [facility], [address], [address], [place], [address], 12/15/2024 14:37:23 vitamin A (retinol) , serum 2024 025 [facility], [address], [address], [place], [address], 12/15/2024 14:37:25 prealbumi n, serum 2024 025 [facility], [address], [address], [place], [address], 12/15/2024 14:37:30 thiamine, QN, blood 2024 025 [facility], [address], [address], [place], [address], 12/15/2024 14:37:27 methylmal jareth, QN, serum or plasma 2024 025 [facility], [address], [address], [place], [address], 12/15/2024 14:37:28 vitamin D, 25-hydrox y, total, serum 2024 025 [facility], [address], [address], [place], [address], 12/15/2024 14:37:26 Referral None recorded. Procedures None recorded. Surgeries None recorded. Imaging None recorded. Medication Orders None recorded. Patient TargetsNo targets recorded. Patient InstructionsNo instructions recorded. Reason for Referral None Reported. Problems Name Problem SNOMED Code Status Onset Date Resolution Date Notes Provider Name and Address Organization Details Recorded Time Metabolic dysfuncti on-associ ated steatohep atitis 075366342 Active 2023 Ernesto Amezcua PA-C [address], [place], [address] , [facility] - [place] & [place] 14:30:35 Gastroeso phageal reflux disease without esophagit is 792508858 Active 2023 Ernesto Amezcua PA-C [address], [place], [address] , [place] - [facility] - [place] & [place] 4 13:48:57 Chronic idiopathi c constipat ion 68860550 Active 2021 Not Available [facility] 3 16:06:44 Gastroeso phageal reflux disease 420958159 Active 2021 Not Available [facility] 3 16:06:44 Diarrhea 75173408 Active 2021 Not Available [facility] 3 16:06:44 Hypokalem ia 01604185 Active 2021 Not Available [facility] 3 16:06:44 Abdominal pain 42507168 Active 2021 Not Available [facility] 3 16:06:44 Myocardia l infarctio n 10855085 Completed 202103/25/2022 Azeb Quesada null, [place] - [facility] - [place] & [place] 2 14:37:03 Fibromyal dominique 943923109 Active 2021 Not Available [facility] 3 16:06:44 Mild dementia 62249301318 4108 Active 2021 Not Available [facility] 3 16:06:44 Chronic obstructi ve pulmonary disease 88707609 Active 2021 Not Available [facility] 3 16:06:44 Hiatal hernia 82206334 Completed 202103/25/2022 Azeb Quesada null, [place] - [facility] - [place] & [place] 2 14:38:57 Chronic depressio n 625464063 Active 2021 Not Available [facility] 3 16:06:44 Obesity 236282415 Active 2021 Ernesto Amezcua PA-C [address], [place], [address] , [place] - [facility] - [place] & [place] 2 14:51:36 Hypertens silvino disorder 24905559 Active 2022 Not Available [facility] 3 16:06:44 Dyslipide franc 555515002 Active 2022 Not Available [facility] 3 16:06:44 Morbid obesity 045174273 Active 2022 Not Available [facility] 3 16:06:44 Dizziness 385732146 Active 2022 Not Available [facility] 3 16:06:44 Intention al weight loss 322175674 Active 2022 Not Available [facility] 3 16:06:44 Constipat ion 96450076 Active 2022 ROSEANN GrajedaC [address] [facility], [place], [place], [address] [place] [address] , [place] - [facility] - [place] & [place] 3 15:41:42 Overweigh t 549942207 Active 2023 Aden Husain DNP, ARSENIO, RESIDENTIAL REAL ESTATE ASSISTANT-C [address] [facility], [place], [place], [address] [place] [address] , [place] [facility] - [place] & [place] 4 09:57:50 Fatigue 52247855 Active 2023 Aden Husain DNP, ARSENIO, RESIDENTIAL REAL ESTATE ASSISTANT-C [address] [facility], [place], [place], [address] [place] [address] , [place] - [facility] - [place] & [place] 4 10:00:39 Liver enzymes level above reference range 403388970 Active 2023 Aden Husain DNP, AUTOGRAPHER, RESIDENTIAL REAL ESTATE ASSISTANT-C [address] [facility], [place], [place], [address] [place] [address] , [place] [facility] - [place] & [place] 4 13:32:45 Low back pain 239184642 Active 2023 Aden Husain DNP, AUTOGRAPHER, RESIDENTIAL REAL ESTATE ASSISTANT-C [address] [facility], [place], [place], [address] [place] [address] , [place] [facility] - [place] & [place] 4 15:56:35 Irritable bowel syndrome character ized by constipat ion 242373914 Active 2023 Ernesto Amezcua PA-C [address] , [place], [address] , [place] - [facility] & [place] 09:08:46 Problem Notes None recorded. Procedures Surgical History Date Name Laterality Status Provider Name and Address Organization Details Recorded Time 07/23/[address], [place] [address] , [place], [address], [place] - [facility] & [place] 08/14/2022 16:17:22 05/28/20 21 Date of Last Pap Smear completed RIMMA RAY RD, LD [address], [place], [address], [place] - [facility] & [place] 08/14/2022 16:17:22 12/20/19 21 Date of Last Colonoscopy completed RIMMA RAY RD, LD [address], [place], [address], [place] - [facility] & [place] 08/14/2022 16:17:22 11/17/19 20 Most Recent Bone Density completed RIMMA RAY RD, [place] [address] [facility], [place], [address], [place] - [facility] & [place] 08/14/2022 16:17:22 Appendectomy completed Not Available [facility] 13:08:39 extraction of wisdom tooth completed Not Available [facility] 08/10/2022 13:08:39 lithotripsy completed Not Available [facility] 07/14 13:08:39 Colonoscopy completed Marychuy Quesada [place] - [facility] & [place] 08/13/2022 11:21:25 EGD completed Marychuy Quesada [place] - [facility] & [place] 08/13/2022 11:21:36 Gastric Bypass completed Dipesh Dow [place] - [facility] & [place] 12/29/2022 08:20:27 Imaging Results None recorded. Procedure Notes None recorded. Medical Equipment None Reported. Allergies Allergen ID Allergen Name Allergen Category Reaction Reaction Severity Criticality Documentation Date Start Date Code Code System Note Provider Name and Address Organization Details Recorded Time 22611 Product containin g penicilli n (product) medicatio n Not available Not available Not available 03/25/2022 97316 8001 SNOMED Azeb uQesada [facility], [facility] & [place] 2 14:01:10 420129 indometha gen medicatio n Not available Not available Not available 06/19/2024 5781 RxNorm Other react ions and sever ities : 'Adve rse react ion to subst ance' . [facility] [place] 4 14:05:45 791452 penicilli n V Not available Not available Not available Not available 06/19/2024 7984 RxNorm Other react ions and sever ities : 'Anap hylax is due to subst ance' . [facility] & [place] 4 14:05:45 451338 milnacipr an medicatio n Not available Not available Not available 06/19/2024 27145 0 RxNorm Other react ions and sever ities : 'Adve rse react ion to subst ance' . Kary aguillon, [facility] & [place] 4 14:05:45 09403 Savella medicatio n Not available Not available Not available 08/13/2022 55249 6 RxNorm Marychuy Quesada [facility] & [place] 3 11:18:57 Medications Name Sig Start Date [...] cm 98.1 [degF] 75 /min 24.8 kg/m2 91455.7 4 g 96 mm[Hg] 70 mm[Hg] Araceli Velasquez [facility] & [place] 09:01:03 Social History Question Answer Notes LastModified by [employer] Details LastModified Time Tobacco Smoking Status Former Smoker quit 3 years ago Araceli Velasquez [facility] & [place] 09/06/2023 09:49:34 Do You Have An Advance Directive? No [email or web address] Information not available 08/14/2022 Are You Blind Or Do You Have Difficulty Seeing? No [email or web address] Information not available 08/14/2022 What Was The Date Of Your Most Recent Tobacco Screening? 08/10/2022 [email or web address] Information not available 08/14/2022 Are You Passively Exposed To Smoke? No [email or web address] Information not available 08/14/2022 How Much Tobacco Do You Smoke? No [email or web address] Information not available 08/14/2022 Sex: Male Functional Status Question Answer Note LastModified by [employer] Details LastModified Time Do you use any illicit or recreational drugs? No [email or web address] Information not available 08/10/2022 What is your level of alcohol consumption? None Information not available 08/10/2022 Do you or have you ever used smokeless tobacco? Never used smokeless tobacco [email or web address] Information not available 08/14/2022 What is your exercise level? None [email or web address] Information not available 08/14/2022 Mental Status Question Answer Note LastModified by Organization D etails LastModified Time Do you feel stressed (tense, restless, nervous, or anxious, or unable to sleep at night)? [id number] [email or web address] Information not available 08/14/2022 Family History Relationship Description Onset Age of this Age Resolved Age Notes LastModified by Organization Details LastModified Time Father Obesity [email or web address] Not availa ble 08/10/2022 08:30:50 Father Diabetes mellitus [email or web address] Not available 2024 14:11:10 Father Hypertensive disorder Not available 08:31:23 Father Heart disease [email or web address] Not available 08:31:48 Father Cerebrovascu lar accident [email or web address] Not available 08/10/2022 08:32:04 Father Hypercholest erolemia [email or web address] Not available 08:32:27 Father Asthma [email or web address] Not available 12/27/2024 14:11:10 Father Allergy pt. added direct ly (08/10) [email or web address] Not available 08/10/2022 13:04:20 Father Disorder of endocrine system pt. added direct ly (08/10) [email or web address] Not available 08/10/2022 13:07:54 Maternal Grandmother Obesity Not available 0 08/10/2022 08:30:50 Maternal Grandmother Hypertensive disorder [email or web address] Not available 08:31:23 Maternal Grandmother Heart disease [email or web address] Not available 08:31:49 Mother Hypertensive disorder [email or web address] Not available 08:31:23 Mother Heart disease [email or web address] Not available 08:31:48 Mother Cerebrovascu lar accident Not available 08/10/2022 08:32:04 Mother Hypercholest erolemia [email or web address] Not available 08:32:27 Mother Allergy pt. added direct ly (08/10) [email or web address] Not available 08/10/2022 13:04:20 Brother Hypertensive disorder [email or web address] Not available 08:31:23 Brother Heart disease [email or web address] Not available 08:31:49 Brother Hypercholest erolemia [email or web address] Not available 08:32:27 Brother Cerebrovascu lar accident pt. added direct ly (09/03) [email or web address] Not available 09/03/2023 11:07:40 Sister Hypertensive disorder [email or web address] Not available 08:31:23 Sister Hypercholest erolemia [email or web address] Not available 08:32:27 Maternal Grandfather Heart disease [email or web address] Not available 08:31:49 Maternal Uncle Allergy pt. added direct ly (08/10) [email or web address] Not available 08/10/2022 13:04:20 Paternal Grandmother Obesity pt. added direct ly (08/10) [email or web address] Not available 08/10/2022 13:08:19 Medical History Condition Response Gout N Other Y Kidney Stones Y Depression Y COPD Y Osteoporosis/Osteopenia Y Constipation Y Spine Problems Y Heart Attack (SC) Y Obstructive Sleep Apnea Y Anxiety Disorder [...] recombinant, quadrivalent, PF 1 completed Not Available [facility] 01/01/2023 16:06:44 Influenza, recombinant, quadrivalent, PF 0 completed Not Available [facility] 01/01/2023 16:06:44 zoster recombinant 1 completed Not Available [facility] 01/01/2023 16:06:44 zoster recombinant 1 completed Not Available [facility] 01/01/2023 16:06:44 MMR 6 completed Not Available [facility] 01/01/2023 16:06:44 COVID-19, mRNA, LNP-S, PF, 100 mcg/0.5mL dose or 50 mcg/0.25mL dose 1 completed Not Available [facility] 01/01/2023 16:06:44 COVID-19, mRNA, LNP-S, PF, 100 mcg/0.5mL dose or 50 mcg/0.25mL dose 1 completed Not Available [facility] 01/01/2023 16:06:44 COVID-19, mRNA, LNP-S, PF, 100 mcg/0.5mL dose or 50 mcg/0.25mL dose 1 completed Not Available [facility] 01/01/2023 16:06:44 Pneumococcal conjugate PCV20, polysaccharide XZM388 conjugate, adjuvant, PF 2 completed Not Available [facility] 01/01/2023 16:06:44 pneumococcal polysaccharide PPV23 1 completed Not Available [facility] 01/01/2023 16:06:44 pneumococcal polysaccharide PPV23 7 completed Not Available [facility] 01/01/2023 16:06:44 Influenza, split virus, quadrivalent, PF 9 completed Not Available [facility] 01/01/2023 16:06:44 Influenza, split virus, quadrivalent, PF 2 completed Not Available [facility] 01/01/2023 16:06:44 Influenza, split virus, quadrivalent, PF 8 completed Not Available [facility] 01/01/2023 16:06:44 influenza, unspecified formulation 4 completed Kary aguillon, [place] [facility] - [place] & [place] 08/08/2024 13:51:39 Respiratory syncytial virus (RSV) MAB, unspecified 4 completed Araceli Velasquez null, [place] - [facility] - [place] & [place] 06/06/2024 09:21:15 Influenza, high-dose, quadrivalent, PF 3 completed Kary Rust null, [place] - [facility] - [place] & [place] 08/08/2024 13:51:39 RSV, recombinant, protein subunit RSVpreF, adjuvant reconstituted, 0.5 mL, PF 4 completed Kary Rust null, [place] - [facility] - [place] & [place] 08/08/2024 13:51:39 Influenza, high-dose, trivalent, PF 4 completed Kary Rust null, [facility] - [place] & [place] 08/08/2024 13:51:39 Past Encounters Encounter ID Performer Location Encounter Start Date Encounter Closed Date Diagnosis/Indication Diagnosis SNOMED-CT Code Diagnosis ICD10 Code Diagnosis Note [id number] Aden Husain, DNP, AUTOGRAPHER, RESIDENTIAL REAL ESTATE ASSISTANT-C [facility]ariatric s and Adv Surg [address] [facility] [address] [place] [address] 12/08/2024 08:48:35 12/08/2024 09:28:10 History of bariatric surgical procedure 599482738 Z98.84 Intentiona l weight loss 417153229 R63.8 History of gastrectomy 628584885 Z90.3 Advised qid intake 50% protein 2488-3255 calories/d y less than 100 carbs/dy Long [...] to correct any vitamin deficienci es. At [facility] risk of nutritional deficit 290324404 Z91.89 Dyslipidemia 565859796 E 78.5 Hypertensive disorder 38 448734 I10 Overweight 677973811 E66 .3 Health Concerns Section Related Observation LastModified by Organization Detai ls LastModified Time None Recorded Concern Status LastModified by Organization Details LastModified Time None Recorded Payers Encounter Date Sequence Insurance Name Policy Number Policy Acosta Covered Member ID Acosta Member ID Guarantor Name 12/08/2024 2 AARP (MEDICARE SUPPLEMENT) Maria Isabel Doran [id number] Maria Isabel Doran 12/08/2024 1 [place] Maria Isabel Doran [id number] Maria Isabel Doran Notes Date Note Type [...] = 1261 kilo calories Aden Husain, CAMMIE, AUTOGRAPHER, RESIDENTIAL REAL ESTATE ASSISTANT-C [address] , [place], [address], [facility] - [place] - [place] & [place] 12/08/2024 09:20:24 OBGyn Episode No OBEpisode recorded.
--- OUTSIDE RECORDS SUMMARY | 2025-01-08 13:27 | XMS_ITS | Clinical Summary ---
Author Organization [facility] Address [address] [place] [address] Care Team Providers Care Mail Agent Name Role Phone Saul Benitez MD Primary Care Provider [phone] Family History Medical History Relation Name Comments [...] of Treatment Not on file Care Teams Mail Agent Relationship Specialty Start Date End Date Saul Benitez MD [address] [place] [address] PCP - General 11/22/20
[2025-01-08] MEDS: ERTAPENEM SODIUM 1 GM VIAL IM (13:40)
[2025-01-08 13:48] VITALS: BP 110/62; PULSE 98; RESP 18; TEMP 36.7; O2SAT 97
== END 2025-01-08 13:48 | disposition home or self-care (01) ==
LOC: INF 13:24
PROVIDERS: PCP Family Medicine; Visit Provider Family Medicine
DX: N12 Tubulo-interstitial nephritis, not specified as acute or chronic (principal)
CPT/HCPCS: 96372; J1335

== ENCOUNTER 2025-01-09 13:18 | Outpatient (CLI) | payer MEDICARE, SELFPAY ==
--- OUTSIDE RECORDS SUMMARY | 2024-12-30 05:30 | XMS_ITS ---
Author Organization [facility] Address [address] [facility] [address] [place] [id number] Care Team Providers Care Feedlot Manager Name Role Phone Jeyson Benitez Primary Care Provider [phone] China Sánchez Unavailable [phone] Results Component Value Reference Range Notes Urinalysis [...] Active Encounters Encounter Location Date Provider Diagnosis [facility] [address] [place], [place] [phone] 12/30/2024 China Sánchez Dysuria R30.0 Assessments Encounter Date Diagnosis (ICD Code) Assessment Notes Treatment Notes Treatment Clinical Notes Section Notes 12/30/2024 Dysuria (ICD-10 - R30.0) Plan Of Treatment Next Appt Details Provider Name:Jeyson Smith, 01/16/2025 10:30:00 AM, [address], [place], [phone], Progress Notes * BURT DORANOB:[birth year] (69 yo F)Acc No.[id number]:12/30/2024 Patient: WENDY ESCAMILLA Provider: RANI Dumont :1955 A ge:69 Y S ex:Female Date:12/30/2024 Address:[address] [place] [address] , [place], [id number] Pcp:Jeyson Benitez Subjective: * Chief Complaints: * [...] EDT > labs not picked up by [employer] on Wednesday. Recollected today. * Procedure Codes: 8 1002 Urinalysis, no micro * Images: Billing Information: * Visit Code: * Procedure Codes: 08992 Urinalysis, no micro. * Electronic signature of RANI Umanzor on 01/09/2025 at 01:23 PM EDT Sign off status: Pending * Provider: RANI Dumont Date: 0 12/30/2024 Generated for Elkin castillo/Aram/Saritasmpaul on: 01/09/2025 01:23 PM EDT
--- OUTSIDE RECORDS SUMMARY | 2025-01-02 05:30 | XMS_ITS ---
Author Organization [facility] Address [address] [facility] [address] [place] [id number] Care Team Providers Care Director Of Rooms Name Role Phone Jeyson Benitez Primary Care [...] Interpretation: Performing Lab: Notes/Report: Test performed by [facility] [address] [place] [address] , [address], [place] [address] Tim Parrish MD, Bullion Weigher CLIA: [id number] Specimen Source Urine - Void Culture, Urine See Below See Microbiol ogy Report Escherichia coli ESBL 50,000-100,000 CFU /ml Escherichia coli ESBL This isolate is a confirmed ESBL (Extended Spectrum Beta-Lactamase) antique furniture reproducer and should be considered clinically resistant to [...] Provider Diagnosis [facility] [address] [place] Khan [phone] 01/02/2025 Jeyson [place] Flank pain, acute R10.10 [...] Munguia gianfranco, 01/16/2025 10:30:00 AM, [address] [facility] [address] [facility], [address], [place], [place], [id number], Progress Notes * BURT DORANOB:[birth year] (69 yo F)Acc No.[id number]:01/02/2025 Annual Wellness Visit Patient: WENDY ESCAMILLA Provider: Jeyson Benitez M.D. :1955 A ge:69 Y S ex:Female Date:01/02/2025 Address:[address] , [place], [id number] Subjective: * Chief Complaints: * 1 . [...] culture was dropped off Wednesday however, the tube turner canceled and did not lease picker any labs. . G astroenterology: Pt is scheduled for a liver biopsy on 01/09/25 at [facility]. Ordered by Jonas Ball. 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 Cath showed on [...] Ball 11/2020. * Hospitalization/Major Diagno stic Procedure: [facility] ER-diarrhea 03/2011, [facility]-back pain 06/2012, [facility]-heart attack 12/31/2014, [place] ER-constipation/impaction 09/2015, [place] ER-diarrhea 11/2015, [place] ER-Bronchitis 03/2018, Drs office in [place]-possible UTI, tested negative 12/2019. * Family History: F ather: . M other: alive. 2 brother(s) , 1 sister(s) . 1 son(s) , 1 daughter(s) . . * Social History: C URRENT TOBACCO USE S moking Status: P atient does NOT smoke quit after [place] 12/2014.?Caffeine: yes, frequency:. Home smoke detector use: [...] required through MCR or AARP; CPT code 68681; 01/02/2025 at 11am Notes: See the following [...] required through MCR or AARP; CPT code 74430; 01/02/2025 at 11am 3.?Adult general medical examination? [...] REV, G9899 [place], [address] Urinalysis, no micro * Preventive Medicine: Counseling: [...] * Images: Billing Information: * Visit Code: 94942 Office Visit, Est Pt., Level 3. * [...] REV. G9899 [place]. 11312 Urinalysis, no micro. * Electronic signature of Jeyson Benitez MD on 01/09/2025 at 01:23 PM EDT Sign off status: Pending * Provider: Jeyson Benitez M.D. Date: 0 01/02/2025 Generated for Printi ng/Faxing/eTransmitting on: 0 01/09/2025 01:23 PM EDT History and Physical Notes * HPI (History of Present Illness) Category Sub-Category Detail Notes Category Not es Urology flank pain Pt c/o left side d flank pain. Pt was unable to provide good sample on 12/29 so a urine culture was dropped off Wednesday however, the tube turner canceled and did not lease picker any labs. Physical Examination Category Sub-Category [...]
--- OUTSIDE RECORDS SUMMARY | 2025-01-04 09:45 | XMS_ITS ---
Author [facility] Address [address] [facility] [address] [place] [id number] Care Team Providers Care District Manager Postal Service Name Role Phone Jeyson Benitez Primary Care [...] lamoTRIgine 150 MG TAKE 1 TABLET BY [facility] TWICE DAILY; Duration: 90 Active Calcium Citrate 150 MG 2 capsules Orally Once a day; Duration: 90 days Active hydrOXYzine HCl 10 MG as directed Orally Two times a day; Duration: 90 days Active Estrace 0.1 MG/GM 1 gm Vaginal 3 times per week 07/13/2024 Active traZODone HCl 100 MG TAKE 1 TABLET BY [facility] ONCE DAILY AT BEDTIME; Duration: [...] 01/04/2025 Encounters Encounter Location Date Provider Diagnosis [facility] [address] [facility] [address], [place] [phone] 01/04/2025 R Foreign Benitez Pyelonephritis N12 Assessments Encounter Date Diagnosis (ICD Code) Assessment Notes Treatment Notes Treatment Clinical Notes Section Notes 01/04/2025 Pyelonephritis (ICD-10 - N12) She has failed to oral antibiotics. Plan for direct admission to [facility] for IV fluids and IV antibiotics. Plan Of Treatment Treatment Notes Assessment Notes Pyelonephritis She has failed to or al antibiotics. Plan for direct admission to [facility] for IV fluids and IV antibiotics. Next Appt Details Follow Up: After discharge, Reason: Provider Name:Jeyson Smith, 01/16/2025 10:30:00 AM, [address] [facility] [address] [facility], [address], [place], [place], [phone], Progress Notes * BURT DORANOB:[birth year] (69 yo F)Acc No.[id number]:01/04/2025 Progress Notes Patient: WENDY ESCAMILAL Provider: Jeyson Benitez M.D. :1955 A ge:69 Y S ex:Female Date:01/04/2025 Address:[address] [place] [address] , [place], [id number] Subjective: * Chief Complaints: * 1 . 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 Cath showed on [...] Ball 11/2020. * Hospitalization/Major Diagno stic Procedure: [facility] ER-diarrhea 03/2011, [facility] ER-back pain 06/2012, [facility]-heart attack 12/31/2014, [place] ER-constipation/impaction 09/2015, [place] ER-diarrhea 11/2015, [place] ER-Bronchitis 03/2018, Drs office in [place]-possible UTI, tested negative 12/2019. * Family History: F ather: . M other: alive. 2 brother(s) , 1 sister(s) . 1 son(s) , 1 daughter(s) . . * Social History: C URRENT TOBACCO USE S moking Status: P atient does NOT smoke quit after [place] 12/2014.?Caffeine: yes, frequency:. Home smoke detector use: [...] Plan for direct admission to [facility] for IV fluids and IV antibiotics.?? * Procedure Codes: 8 1002 Urinalysis, no micro * Follow Up: A fter discharge * Images: Billing Information: * Visit Code: 53067 Office Visit, Est Pt., Level 3. * Procedure Codes: 49835 Urinalysis, no micro. * Electronic signature of Jeyson Benitez MD on 01/09/2025 at 01:24 PM EDT Sign off status: Pending * Provider: Jeyson Benitez M.D. Date: 0 01/04/2025 Generated for Elkin castillo/Aram/Saritasmitting on: 0 01/09/2025 01:24 PM EDT History and Physical Notes * [...]
--- OUTSIDE RECORDS SUMMARY | 2025-01-09 13:23 | XMS_ITS | Patient Health Record ---
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 Name Role Phone Jeyson Benitez Primary Care Provider Sang Regan Unavailable [phone] Marlena Antonio Unavailable [phone] China Sánchez Unavailable [phone] Allergies Allergen (clinical drug ingredient) Drug/Non Drug Allergy documented on EMR Reaction Allergy Type Onset Date Status Indomethacin disoriented Drug Allergy Ac tive Savella memory loss and excessive drowsiness Drug Allergy Active Penicillin anaphylaxis Drug Allergy Acti ve Results Component Value Reference Range Notes H-Culture, Blood Reviewed date:01/06/2025 08:19:38 PM Interpretation: [...] 0.1 0-0.2 K/mm3 NRBC# 0 IG# 0.58 H-DIFF Reviewed date:01/06/2025 08:21:22 PM Interpretation: Performing [...] 88 74-100 mg/dl CA 8.4 8.4-10.2 mg/dl Influenza Screen (in house) Reviewed date:01/03/2025 12:11:45 [...] order Performing Lab: Notes/Report: See duplicate order H-CBC Reviewed date:01/04/2025 11:41:11 PM Interpretation: Performing [...] AGRATIO 1.1 1.1-1.8 ALP 147 38-126 U/L H-Lactic Acid Reviewed date:01/04/2025 11:41:11 PM Interpretation: [...] 149 on 01/04/25 CA 8.5 8.4-10.2 mg/dl CBC Fingerstick (in house) Reviewed date:07/13/2024 11:31:19 [...] - 38 plat 202 100 - 400 CBC Fingerstick (in house) [...] - 38 plat 215 100 - 400 Urinalysis - Inhouse Reviewed date:01/04/2025 11:41:11 PM [...] Interpretation: Performing Lab: Notes/Report: Test performed by [facility], [employer] [address] [place] [address] , [address], [place] [address] Tim Parrish MD, Field Examiner CLIA: [id number] Specimen Source Urine - Void Culture, Urine See Below See Microbiol ogy Report Escherichia coli ESBL 50,000-100,000 CFU /ml Escherichia coli ESBL This isolate is a confirmed ESBL (Extended Spectrum Beta-Lactamase) assistant producer and should be considered clinically resistant [...] 1.010 Ketone neg Bili neg Gluc neg P-Iron Reviewed date:06/29/2024 04:17:23 PM Interpretation:Normal Performing Lab: Notes/Report: Test performed by [facility], [address] , [place] [address] Tim Parrish MD, Field Examiner CLIA: [id number] Iron 99 37-145 ug/dL P-Iron Binding Cap Reviewed date:06/29/2024 04:17:23 PM Interpretation:Normal Performing Lab: Notes/Report: Test performed by [facility] [address] , [address], [place] [address] Tim Parrish MD, Field Examiner CLIA: [id number] Iron Binding Cap 344 250-450 ug/dL P-Hemoglobin A1C Reviewed date:06/29/2024 04:17:23 PM Interpretation:Normal Performing Lab: Notes/Report: Test performed by [facility] [address] , [facility] [place] [place] [address] Tim Parrish MD, Field Examiner CLIA: [id number] Hemoglobin A1C 5.4 <5.7 % The following HbA1c ranges recommended by the [place] [employer] (ADA) may be used as an aid in the diagnosis of diabetes mellitus. HbA1c Suggested Diagnosis >=6.5% Diabetic 5.7% - 6.4% Pre-Diabetic <5.7% Non-Diabetic P-T4 Free (thyroxine) Reviewed date:06/29/2024 04:17:23 PM Interpretation:Normal Performing Lab: Notes/Report: Test performed by [facility] [address] , [place] [address] Tim Parrish MD, Field Examiner CLIA: [id number] Thyroxine Free (free T4) 0.94 0.86-1.76 ng/dL Glycohemoglobin A1c (in hous e) Reviewed date:06/29/2024 04:17:23 PM Interpretation:5.3% Normal Performing Lab: Notes/Report: 5.3% Normal glycohemoglobin 5.3% 5 - 6.5 % P-CBC with Diff plus Absolut e Counts Reviewed date:06/29/2024 04:17:23 PM Interpretation:Normal Performing Lab: Notes/Report: Test performed by [facility] [address] , [address], [place] [address] Tim Parrish MD, Field Examiner CLIA: [id number] WBC 6.1 3.8-11.5 K/uL Red Blood Cell [...] 51 Performing Lab: Notes/Report: Test performed by [facility], [address] , [address], [place] [address] Tim Parrish MD, Field Examiner CLIA: [id number] Sodium 139 135-145 mmol/L Potassium 4.9 3.5-5.3 [...] developed and its performance characteristics determined by [facility]. It has not been cleared or approved by the US Food and Drug Administration. This test was performed in a CLIA certified laboratory and is intended for clinical purposes. Performed By: [facility] [address] [place] [address] Field Examiner: Cesar Arnold MD, PhD CLIA Number: [id number] P-Folate Reviewed date:06/29/2024 04:17:23 PM Interpretation:Normal Performing Lab: Notes/Report: Test performed by [facility] [address] , [address], [place] [address] Tim Parrish MD, Field Examiner CLIA: [id number] Folate >20 >4.59 ng/mL P-Selenium, Serum/Plasma Reviewed [...] developed and its performance characteristics determined by [facility]. It has not been cleared or approved by the US Food and Drug Administration. This test was performed in a CLIA certified laboratory and is intended for clinical purposes. Performed By: [facility] [address] [place] [address] Field Examiner: Cesar Arnold MD, PhD CLIA Number: [id number] P-Ferritin Reviewed date:06/29/2024 04:17:23 PM Interpretation:Normal Performing Lab: Notes/Report: Test performed by [facility] [address] [place] [address] , [address], [place] [address] Tim Parrish MD, Field Examiner CLIA: [id number] Ferritin 25.1 13.0-301.0 ng/mL P-Lipid Panel Reviewed date:06/29/2024 04:17:23 PM Interpretation:Normal Performing Lab: Notes/Report: Test performed by [facility] [address] [place] [address] , [place] [address] Tim Parrish MD, Field Examiner CLIA: [id number] Cholesterol 125 <200 mg/dL Triglycerides 82 <150 [...] Results: 54 Units: mg/dL % Change: -5% Miscell Ref Lab Test Reviewed date:06/29/2024 10:43:23 AM Interpretation: Normal Performing Lab: Notes/Report: Test Cancelled Test Cancelled Other P-MMA Serum/Plasma, Vitamin B12 Status Reviewed date:06/29/2024 04:17:23 PM Interpretation:Normal Performing Lab: Notes/Report: MMA Serum/Plasma, Vitamin B12 Status 0.15 0.00-0.40 umol/L INTERPRETIVE INFORMATION: MMA Serum/Plasma, Vitamin B12 Status This test was developed and its performance characteristics determined by [facility]. It has not been cleared or approved by the US Food and Drug Administration. This test was performed in a CLIA certified laboratory and is intended for clinical purposes. Performed By: [facility] [address] [place] [address] Field Examiner: Cesar Arnold MD, PhD CLIA Number: [id number] P-Prealbumin Reviewed date:06/29/2024 04:17:23 PM Interpretation:Normal Performing Lab: Notes/Report: Test performed by [facility] [address] , [address], [place] [address] Tim Parrish MD, Field Examiner CLIA: [id number] Prealbumin 21.0 20.0-40.0 mg/dL Percent Saturation Reviewed date:06/29/2024 04:17:23 PM Interpretation:Normal Performing Lab: Notes/Report: [facility] , [place] [address] Tim Parrish MD, Field Examiner CLIA: [id number] Percent Saturation 29 15-50 % P-TSH Reviewed date:06/29/2024 04:17:23 PM Interpretation:Normal Performing Lab: Notes/Report: Test performed by [facility] [address] , [address], [place] [address] Tim Parrish MD, Field Examiner CLIA: [id number] TSH 1.08 0.43-5.25 mU/L P-Vitamin A (Retinol), Serum Reviewed date:06/29/2024 04:17:23 PM Interpretation:Normal Performing Lab: Notes/Report: Test Cancelled Test Cancelled TNP - Incor rect Specimen. Unable to perform due to incorrect specimen submission P-Vitamin D 25-Hydroxy Reviewed date:06/29/2024 04:17:23 PM Interpretation:Normal Performing Lab: Notes/Report: Test performed by [facility] [address] , [place] [address] Tim Parrish MD, Field Examiner CLIA: [id number] Vitamin D 25-Hydroxy 65.0 30.0-100.0 ng/mL Interpretation [...] analytical performance characteristics have been determined by [place] [place]. It has not been cleared or approved by the U.S. Food and Drug Administration. This assay has been validated pursuant to the CLIA regulations and is used for clinical purposes. Test Performed By [facility] , CLIA [id number] [facility] [address], Filipe Meier MD PhD Estimated Average Glucose Reviewed date:06/29/2024 04:17:23 PM Interpretation:Normal Performing Lab: Notes/Report: Test performed by [facility] [address] , [address], [place] [address] Tim Parrish MD, Field Examiner CLIA: [id number] Estimated Average Glucose (eAG) 108 Estimated Average [...] Interpretation: Performing Lab: Notes/Report: strep test Neg Holter Monitor- 48 hour Reviewed date:08/15/2024 08:13:51 [...] developed and its performance characteristics determined by [facility]. It has not been cleared or approved by the US Food and Drug Administration. This test was performed in a CLIA certified laboratory and is intended for clinical purposes. Performed By: [facility] [address] [place] [address] Field Examiner: Cesar Arnold MD, PhD CLIA Number: [id number] Medications Medication SIG (Take, Route, Frequency, Duration) [...] W/U Status Risk Notes Problem Essential hypertension (08465251) Essential (primary) hypertension (I10) Active confirmed Problem History of circulatory system disease (041807470) History of ASCVD (Z86.79) Active confirmed Problem COPD - Chronic obstructive pulmonary disease (41121299) COPD (chronic obstructive pulmonary disease) (J44.9) Active confirmed Problem Acute exacerbation of chronic obstructive airways disease (897156941) COPD with exacerbation (J44.1) Active confirmed Problem Osteopenia (666082555) Osteopenia (M85.80) Active confirmed Problem Seasonal allergy (359271490) Seasonal allergies (J30.2) Active confirmed Problem Mixed anxiety and depressive disorder (672317103) Depression with anxiety (F41.8) Active confirmed Problem Overactive urinary bladder (disorder) (987816326) OAB (overactive bladder) (N32.81) Active confirmed Problem Memory loss (77606353) Memory loss (R41.3) Active confirmed Problem Fibromyalgia (147040242) Fibromyalgia (M79.7) Active confirmed Problem Vasomotor rhinitis (6705847) Vasomotor rhinitis (J30.0) Active confirmed Problem Irritable bowel syndrome with diarrhea (852211050) Irritable bowel syndrome with diarrhea (K58.0) Active confirmed Problem Migraine without aura, not refractory (038237853) Migraine without aura and without status migrainosus, not intractable (G43.009) Active confirmed Problem Atrophic vaginitis (44559655) Atrophic vaginitis (N95.2) Active confirmed Problem Sacroiliitis (89632304) Sacroiliitis (M46.1) Active confirmed Problem Dependence on supplemental oxygen (812192164257) Oxygen dependent (Z99.81) Active confirmed Problem Dyslipidemia (207378996) Dyslipidemia (E78.5) Active confirmed Problem Allergic rhinitis caused by pollen (17877866) Seasonal allergic rhinitis due to pollen (J30.1) Active confirmed Problem Degenerative disc disease (95620184) DDD (degenerative disc disease), lumbar (M51.36) Active confirmed Problem 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) Active confirmed Problem Malabsorption syndrome (24353954) Malabsorption due to intolerance, not elsewhere classified (K90.49) Active confirmed Problem Personal history of tobacco use (Z87.891) Active confirmed Problem Degeneration of thoracic intervertebral disc (43222600) DDD (degenerative disc disease), thoracic (M51.34) Active confirmed Vital Signs Heart Rate 86 /min 01/04/2025 Blood pressure diastolic 70 mm Hg 01/02/2025 Height 65 in 01/04/2025 Blood pressure systolic 102 mm Hg 01/02/2025 Weight 141.6 lbs 01/04/2025 BMI 23.56 kg/m2 01/04/2025 Encounters Encounter Location Date Provider Diagnosis [facility] [address] [place], [place] [id number] 02/03/2024 China Sánchez Non-seasonal allergi c rhinitis, unspecified trigger J30.89 ; Benign paroxysmal positional vertigo due to bilateral vestibular disorder H81.13 and Symptomatic hypotension I95.9 [facility] [address] [facility] [address] [place], [place] [id number] 02/29/2024 R Foreign Emmanuel Fibromyalgia M79.7 a nd Seasonal allergies J30.2 [facility] [address] [place] [id number] 03/30/2024 R Foreign Emmanuel Vaginal yeast infect ion B37.31 and Abnormal thyroid function test R94.6 [facility] [address] [facility] [address] [place] [id number] 04/27/2024 R Foreign Emmanuel Seasonal allergies J30.2 and Fibromyalgia M79.7 [facility] [address] [facility] [address] [place] [id number] 06/22/2024 R Foreign Emmanuel Fibromyalgia M79.7 ; Malabsorption due to intolerance, not elsewhere classified K90.49 ; Status post bariatric surgery Z98.84 ; Dyslipidemia E78.5 ; Vaginal yeast infection B37.31 and Hypoglycemia E16.2 [facility] [address] [facility] [address] [place] [id number] 06/26/2024 Sang Silverlake Malabsorption due to intolerance, not elsewhere classified K90.49 [facility] [address] [facility] [address] [place] [id number] 07/13/2024 R Foreign Emmanuel URI (upper respirato ry infection) J06.9 and Atrophic vaginitis N95.2 [facility] [address] [facility] [address] [place] [id number] 07/25/2024 R Foreign Emmanuel Palpitations R00.2 [facility] [address] [facility] [address] [place] [id number] 08/28/2024 Marlena Antonio Sinusitis J32.9 and Papules R23.8 [facility] [address] [facility] [address] [place], [place] [id number] 10/19/2024 R Foreign Emmanuel Acute bronchitis J20 .9 ; COPD (chronic obstructive pulmonary disease) J44.9 ; Dyslipidemia E78.5 ; Seasonal allergies J30.2 and BMI 24.0-24.9, adult Z68.24 [facility] [address] [facility] [address] [place] [id number] 12/29/2024 China Crowdy Hypoxia R09.02 ; Dysuria R30.0 ; Chills R68.83 and BMI 24.0-24.9, adult Z68.24 [facility] [address] [place] [id number] 12/30/2024 China Crowdy Dysuria R30.0 [facility] [address] [place] [id number] 01/02/2025 R Foreign [place] Flank pain, acute R10.10 ; Hematuria R31.9 and Adult general medical examination Z00.00 [facility] [address] [place] [id number] 01/04/2025 R Foreign Emmanuel Pyelonephritis N12 [facility] [address] [place], [place] [id number] 02/16/2024 R Foreign Emmanuel Fibromyalgia M79.7 [facility] [address] [place] [id number] 03/14/2024 R Foreign Emmanuel [facility] [address] [place] [id number] 05/24/2024 R Foreign Emmanuel Seasonal allergies J30.2 [facility] [address] [place] [id number] 06/29/2024 R Foreign Emmanuel [facility] [address] [place] [id number] 07/03/2024 R Foreign Emmanuel [facility] [address] [place] [id number] 08/15/2024 R Foreign Emmanuel [facility] [address] [place] [id number] 08/15/2024 R Foreign Emmanuel [facility] [address] [place] [id number] 08/17/2024 R Foreign Emmanuel Seasonal allergies J30.2 [facility] [address] [place] [id number] 10/31/2024 R Foreign Emmanuel [facility] [address] [place], [place] [id number] 11/21/2024 Jeyson Benitez [facility] [address] [place], [place] [id number] 01/02/2025 China Sánchez [facility] [address] [place], [place] [id number] 01/02/2025 Jeyson Benitez Assessments Encounter Date Diagnosis [...] - J30.2) 06/22/2024 Fibromyalgia (ICD-10 - M79.7) 06/26/2024 Malabsorption due to intolerance, not elsewhere [...] obstructive pulmonary disease) (ICD-10 - J44.9) 06/22/2024 Malabsorption due to intolerance, not elsewhere [...] - M79.7) 06/22/2024 Dyslipidemia (ICD-10 - E78.5) 12/29/2024 BMI 24.0-24.9, adult (ICD-10 - Z68.24) 10/19/2024 Seasonal allergies (ICD-10 - J30.2) 10/19/2024 BMI 24.0-24.9, adult (ICD-10 - Z68.24) 06/22/2024 Vaginal yeast infection (ICD-10 - B37.31) 06/22/2024 Hypoglycemia (ICD-10 - E16.2) Plan Of Treatment Pending Test Test Name Order Date P-Comprehensive Metabolic Panel (CMP) P-Lipid Panel 09/21/2023 Next Appt Details Provider Name:Jeyson Smith, 01/16/2025 10:30:00 AM, [address] [facility], [place], [place], [id number], Insurance Providers Payer Name Payer Address Payer Phone Subscriber Number Group Number Insured Name Patient Relationship to Insured Coverage Start Date Coverage End Date MEDICARE PART B [address] [address] [place] [address] [phone] [id number] WENDY DORAN Self - patient is the insured [facility] [address] [place] [id number] WENDY DORAN Self - patient is the insured Medications Administered Medication Instructions Date of Administration Dosage Notes Dexamethasone 06/28/2018 1 mL Dexamethasone 05/02/2019 1 mL Dexamethasone 02/10/2022 1 mL Dexamethasone 06/09/2022 1 mL Phenergan 12.5 mgs. 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 Ca th showed [...] Hospitalization History Reason Date(Month/Year) Drs office in [place]-possible UTI, te sted negative 12/2019 [place] [facility]-Bronchitis 03/2018 [place] [facility]-diarrhea 11/2015 [place] [facility]-constipation/impaction 2015 [facility]-heart attack 12/31/2014 [facility] ER-back pain 06/2012 [facility] ER-diarrhea 03/2011
--- OUTSIDE RECORDS SUMMARY | 2025-01-09 13:24 | XMS_ITS | Clinical Summary ---
Author Organization [facility] Address [address] [place] [address] Care Team Providers Care Strategic Marketing Specialist Name Role Phone Saul Benitez MD Primary Care Provider [phone] Family History Medical History Relation Name Comments [...] of Treatment Not on file Care Teams Strategic Marketing Specialist Relationship Specialty Start Date End Date Saul Benitez MD [address] [place] [id number] PCP - General 11/22/20
[2025-01-09 13:37] VITALS: BP 93/63; PULSE 86; RESP 18; TEMP 37.2; O2SAT 94
[2025-01-09] MEDS: ERTAPENEM SODIUM 1 GM VIAL IM (13:37)
== END 2025-01-09 13:50 | disposition home or self-care (01) ==
LOC: INF 13:19
PROVIDERS: PCP Family Medicine; Visit Provider Family Medicine
DX: N12 Tubulo-interstitial nephritis, not specified as acute or chronic (principal)
CPT/HCPCS: 96372; J1335

== ENCOUNTER 2025-02-01 10:31 | Outpatient (POV) | payer MEDICARE, SELFPAY ==
--- OUTSIDE RECORDS SUMMARY | 2025-01-02 05:30 | XMS_ITS ---
Author Organization [facility] [place] Address [address] [facility] [address] [place] [id number] Care Team Providers Care Black Topper Name Role Phone Jeyson Benitez Primary Care Provider [phone] Allergies Allergen (clinical drug ingredient) Drug/Non Drug [...] Interpretation: Performing Lab: Notes/Report: Test performed by [email or web address] [address] [place] [address] , [address], [place] [address] Tim Parrish MD, Radio Installer Automobile CLIA: [id number] Specimen Source Urine - Void Culture, Urine See Below See Microbiol ogy Report Escherichia coli ESBL 50,000-100,000 CFU /ml Escherichia coli ESBL This isolate is a confirmed ESBL (Extended Spectrum Beta-Lactamase) interactive producer and should be considered clinically resistant to [...] 23 VACCINE Unknown 01/02/2025 Pending Vital Signs Weight 144.8 lbs 01/02/2025 Blood pressure systolic 102 mm Hg 01/03/20 25 Blood pressure diastolic 70 mm Hg 025 Heart Rate 90 /min 01/02/2025 Height 65 in 01/02/2025 BMI 24.09 kg/m2 01/02/2025 Encounters Encounter Location Date Provider Diagnosis [facility] [address] [place] Khan [phone] 01/02/2025 Jeyson Benitez Adult general medica l [...] * BURT DORANOB:[birth year] (69 yo F)Acc No.[id number]:01/02/2025 Annual Wellness Visit Patient: WENDY ESCAMILLA Provider: Jeyson Benitez M.D. :1955 A ge:69 Y S ex:Female Date:01/02/2025 Address:[address] [place] [address] W , [id number] Subjective: * Chief Complaints: * 1 . [...] culture was dropped off Wednesday however, the electronic organ mechanic canceled and did not grape picker any labs. . G astroenterology: Pt is scheduled for a liver biopsy on 01/09/25 at [facility]. Ordered by Jonas Ball. 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 Cath showed on [...] Ball 11/2020. * Hospitalization/Major Diagno stic Procedure: [facility] ER-diarrhea 03/2011, [facility] ER-back pain 06/2012, [facility]-heart attack 12/31/2014, [place] ER-constipation/impaction 09/2015, [place] ER-diarrhea 11/2015, [place] ER-Bronchitis 03/2018, Drs office in [place]-possible UTI, tested negative 12/2019. * Family History: F ather: . M other: alive. 2 brother(s) , 1 sister(s) . 1 son(s) , 1 daughter(s) . . * Social History: C URRENT TOBACCO USE S moking Status: P atient does NOT smoke quit after [place] 12/2014.?Caffeine: yes, frequency:. Home smoke detector use: [...] D yslipidemia - E78.5 1 2. B DE 24.0-24.9, adult - Z68.24 Plan: * Treatment: [...] AM EDT > no auth required through [facility] or AAR; CPT code 81126; 01/02/2025 at 11am Notes: See the following [...] Escherichia coli ESBL - * Sang Regan Gunner 01/06/2025 08:19:51 PM EDT > Inpt [...] Pelvis, stone protocol (Performed Date - 01/02/2025)* Evei Clark 01/02/2025 10:1 5:51 AM EDT > no auth required through [facility] or AARP; CPT code 96201; 01/02/2025 at 11am * Immunizations: PNEUMOVAX 23 [...] REV, G9899 [place]rn [place] doc, [address] Urinalysis, no micro, 1125F AMNT PAIN NOTED [...] * Images: Billing Information: * Visit Code: 37244 Office Visit, Est Pt., Level 3. Modifiers: [...] REV. G9899 [place]. [address] Urinalysis, no micro. 1125F AMNT PAIN NOTED PAIN PRSNT. G8420 BMI<30 AND >=22 CALC & DOCU. G8783 BP SCR PRFRM RCMDD DEFIND SCR INTVL. G8752 MOST RECENT SYSTOLIC BP < 140MM HG. G8754 MOST RECENT DIASTOLIC BP < 90MM HG. * Electronic signature of Jeyson Benitez MD on 02/01/2025 at 10:39 AM EDT Sign off status: Pending * Provider: Jeyson Benitez M.D. Date: 0 01/02/2025 Generated for Elkin castillo/Aram/eTransmitting on: 0 02/01/2025 10:39 AM EDT History and Physical Notes * HPI (History of Present Illness) Category Sub-Category Detail Notes Category Not es Urology flank pain Pt c/o left side d flank pain. Pt was unable to provide good sample on 12/29 so a urine culture was dropped off Wednesday however, the electronic organ mechanic canceled and did not grape picker any labs. Physical Examination Category Sub-Category [...]
--- OUTSIDE RECORDS SUMMARY | 2025-01-04 09:45 | XMS_ITS ---
[facility] Address [address] [facility] [address] [place] [id number] Care Team Providers Care Consulting Nurse Name Role Phone Jeyson Benitez Primary Care Provider [phone] Allergies Allergen (clinical drug ingredient) Drug/Non Drug [...] lamoTRIgine 150 MG TAKE 1 TABLET BY [facility] TWICE DAILY; Duration: 90 Active Calcium Citrate 150 MG 2 capsules Orally Once a day; Duration: 90 days Active hydrOXYzine HCl 10 MG as directed Orally Two times a day; Duration: 90 days Active Estrace 0.1 MG/GM 1 gm Vaginal 3 times per week 07/13/2024 Active traZODone HCl 100 MG TAKE 1 TABLET BY [facility] ONCE DAILY AT BEDTIME; [...] 01/04/2025 Encounters Encounter Location Date Provider Diagnosis [facility] [address] [facility] [address], [place] [id number] 01/04/2025 R Foreign Benitez Pyelonephritis N12 Assessments Encounter Date Diagnosis (ICD Code) Assessment Notes Treatment Notes Treatment Clinical Notes Section Notes 01/04/2025 Pyelonephritis (ICD-10 - N12) She has failed to oral antibiotics. Plan for direct admission to [facility] for IV fluids and IV antibiotics. Plan Of Treatment Treatment Notes Assessment Notes Pyelonephritis She has failed to or al antibiotics. Plan for direct admission to [facility] for IV fluids and IV antibiotics. Next Appt Details Follow Up: After discharge, Reason: Progress Notes * BURT DORANOB:[birth year] (69 yo F)Acc No.[id number]:01/04/2025 Progress Notes Patient: WENDY ESCAMILLA Provider: Jeyson Benitez M.D. :1955 A ge:69 Y S ex:Female Date:01/04/2025 Address:[address] [place] [address] , [id number] Subjective: * Chief Complaints: * 1 . 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 Cath showed on [...] Ball 11/2020. * Hospitalization/Major Diagno stic Procedure: [facility] ER-diarrhea 03/2011, [facility] ER-back pain 06/2012, [facility]-heart attack 12/31/2014, [place] ER-constipation/impaction 09/2015, [place] ER-diarrhea 11/2015, [place] ER-Bronchitis 03/2018, Drs office in [place]-possible UTI, tested negative 12/2019. * Family History: F ather: . M other: alive. 2 brother(s) , 1 sister(s) . 1 son(s) , 1 daughter(s) . . * Social History: C URRENT TOBACCO USE S moking Status: P atient does NOT smoke quit after [place] 12/2014.?Caffeine: yes, frequency:. Home smoke detector use: [...] oral antibiotics. Plan for direct admission to [facility] for IV fluids and IV antibiotics.?? * Procedure Codes: 8 1002 Urinalysis, no micro * Follow Up: A fter discharge * Images: Billing Information: * Visit Code: * Procedure Codes: 93224 Urinalysis, no micro. * Electronic signature of Jeyson Benitez MD on 02/01/2025 at 10:40 AM EDT Sign off status: Pending * Provider: Jeyson Benitez M.D. Date: 0 01/04/2025 Generated for Printi ng/Faxing/eTransmitting on: 0 02/01/2025 10:40 AM EDT History and Physical Notes * Physical [...]
--- OUTSIDE RECORDS SUMMARY | 2025-01-16 05:45 | XMS_ITS ---
Author Organization [facility] Address [address] [facility] [address] [place] [id number] Care Team Providers Care Canine Service Instructor Trainer Name Role Phone Jeyson Benitez Primary [...] Interpretation: Performing Lab: Notes/Report: Test performed by [facility] [address] [place] [address] , [address], [place] [address] Tim Parrish MD, Senior Education Specialist CLIA: [id number] Specimen Source Urine - Void Culture, Urine [...] MG TAKE 1 TABLET BY MO [facility] ONCE DAILY AT BEDTIME; Duration: 90 [...] Encounter Location Date Provider Diagnosis [facility] [address] [facility] [address] [facility] [address] [place] [phone] 01/16/2025 Jeyson Benitez Pyelonephritis N12 Assessments Encounter [...] * BURT DORANOB:[birth year] (69 yo F)Acc No.[id number]:01/16/2025 Patient: WENDY ESCAMILLA Provider: Jeyson Benitez M.D. :1955 A ge:69 Y S ex:Female Date:01/16/2025 Address:[address] [place] [address] , [id number] Subjective: * Chief Complaints: * 1 . F/U Hospital D/C. * HPI: H PI: She returns to follow-up on recent admission to [facility] for pyelonephritis. 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 Cath showed on [...] 11/2020. * Hospitalization/Major Diagno stic Procedure: [facility] ER-diarrhea 03/2011, [facility] ER-back pain 06/2012, [facility]-heart attack 12/31/2014, [place] ER-constipation/impaction 09/2015, [place] ER-diarrhea 11/2015, [place] ER-Bronchitis 03/2018, Drs office in [place]-possible UTI, tested negative 12/2019. * Family History: F ather: . M other: alive. 2 brother(s) , 1 sister(s) . 1 son(s) , 1 daughter(s) . . * Social History: C URRENT TOBACCO USE S moking Status: P atient does NOT smoke quit after [place] 12/2014.?Caffeine: yes, frequency:. Home smoke detector use: [...] G 2211 Complex e/[place], [address] Urinalysis, no micro * Follow Up: v ia phone to report test results * Images: Billing Information: * Visit Code: 45393 Office Visit, Est Pt., Level 3. * Procedure Codes: G2211 Complex e/[place]. [address] Urinalysis, no micro. * Electronic signature of Jeyson Benitez MD on 02/01/2025 at 10:39 AM EDT Sign off status: Pending * Provider: Jeyson Benitez M.D. Date: 0 01/16/2025 Generated for Elkin castillo/Aram/eTransmitting on: 0 02/01/2025 10:39 AM EDT History and Physical Notes * HPI (History of Present Illness) Category Sub-Category Detail Notes Category Not es HPI She returns to follow-up on recent admission to [facility] for pyelonephritis. She completed a 7-day [...]
--- OUTSIDE RECORDS SUMMARY | 2025-02-01 10:39 | XMS_ITS | Patient Health Record ---
[facility] [address] [facility] [address] ED[place] Khan [id number] Care Team Providers Care Director Of Web Marketing Name Role Phone Jeyson Benitez Primary Care Provider [phone] Sang Regan Unavailable [phone] Marlena Antonio Unavailable [phone] China Sánchez Unavailable [phone] Allergies Allergen (clinical drug ingredient) Drug/Non Drug Allergy documented on EMR Reaction Allergy Type Onset Date Status indomethacin Indomethacin disoriented Drug Allergy Active milnacipran Savella memory loss and excessive drowsiness Drug Allergy Active Penicillin anaphylaxis Drug Allergy Acti ve Results Component Value Reference Range Notes Glycohemoglobin A1c (in hous e) Reviewed date:06/29/2024 04:17:23 PM Interpretation:5.3% Normal Performing Lab: Notes/Report: 5.3% Normal glycohemoglobin 5.3% 5 - 6.5 % P-Prealbumin Reviewed date:06/29/2024 04:17:23 PM Interpretation:Normal Performing Lab: Notes/Report: Test performed by [facility] [address] [place], [place] [address] [place] [address] Tim Parrish MD, Senior Clinical Data Coordinator CLIA: [id number] Prealbumin 21.0 20.0-40.0 mg/dL P-TSH Reviewed date:06/29/2024 04:17:23 PM Interpretation:Normal Performing Lab: Notes/Report: Test performed by [facility] [address] [place] [address] [place] [address] Tim Parrish MD, Senior Clinical Data Coordinator CLIA: [id number] TSH 1.08 0.43-5.25 mU/L P-Vitamin A (Retinol), Serum Reviewed date:06/29/2024 04:17:23 PM Interpretation:Normal Performing Lab: Notes/Report: Test Cancelled Test Cancelled TNP - Incor rect Specimen. Unable to perform due to incorrect specimen submission P-Vitamin D 25-Hydroxy Reviewed date:06/29/2024 04:17:23 PM Interpretation:Normal Performing Lab: Notes/Report: Test performed by [facility] [address] [place] [address] , [address], [place] [address] Tim Parrish MD, Senior Clinical Data Coordinator CLIA: [id number] Vitamin D 25-Hydroxy 65.0 30.0-100.0 ng/mL Interpretation [...] analytical performance characteristics have been determined by [facility] [place], [place]. It has not been cleared or approved by the U.S. Food and Drug Administration. This assay has been validated pursuant to the CLIA regulations and is used for clinical purposes. Test Performed By [facility] [place] , CLIA [id number] [facility] [address], Filipe Meier MD PhD P-Vitamin B1 [...] date:01/02/2025 12:54:22 AM Interpretation: Performing Lab: Notes/Report: H-Culture, Blood Reviewed date:01/29/2025 05:09:23 PM Interpretation: Performing Lab: Notes/Report: CUBLD NO GROWTH AFTER 5 DAYS CUBLD NO GROWTH AFTER 5 DAYS H-CBC Reviewed date:01/06/2025 08:21:22 PM Interpretation: Performing [...] 88 74-100 mg/dl CA 8.4 8.4-10.2 mg/dl P-Vitamin B1 (Thiamine), Ser um/Plasma, LC/MS/MS Reviewed [...] developed and its performance characteristics determined by [facility]. It has not been cleared or approved by the US Food and Drug Administration. This test was performed in a CLIA certified laboratory and is intended for clinical purposes. Performed By: [facility] [address] [place] [address] Senior Clinical Data Coordinator: Cesar Arnold MD, PhD CLIA Number: [id number] P-Culture, Urine Reviewed date:01/02/2025 03:44:10 PM Interpretation:See duplicate order Performing Lab: Notes/Report: See duplicate order Urinalysis - Inhouse Reviewed date:01/02/2025 05:01:33 PM Interpretation: Performing Lab: Notes/Report: Color/Clarity yellow/cloudy Leuk 3+ Nitrite Neg Urobili 3.2 Protein 2+ pH 5.5 Blood 1+ Sp. Gr. 1.015 Ketone Trace Bili 1+ Gluc Neg CT Scan : Abd and Pelvis, st one protocol Reviewed date:01/03/2025 12:11:45 PM Interpretation: Performing Lab: Notes/Report: P-Culture, Urine Reviewed date:01/06/2025 08:21:23 PM Interpretation: Performing Lab: Notes/Report: Test performed by [facility] [address] [place] [address] , [address], [place] [address] Tim Parrish MD, Senior Clinical Data Coordinator CLIA: [id number] Specimen Source Urine - Void Culture, Urine See Below See Microbiol ogy Report Escherichia coli ESBL 50,000-100,000 CFU /ml Escherichia coli ESBL This isolate is a confirmed ESBL (Extended Spectrum Beta-Lactamase) creative producer and should be considered clinically resistant [...] 1.010 Ketone neg Bili neg Gluc neg H-BMP Reviewed date:01/05/2025 08:49:49 AM Interpretation: Performing [...] date:01/05/2025 08:49:49 AM Interpretation: Performing Lab: Notes/Report: MDIFF MANUAL DIFFERENTIAL MANUAL DIFF TCC 100 NEUT%M 59 42-76 % LYMPH%M 30 10-50 % MONO%M 10 2-9 % EOS%M 1 0-3 % PLTE Normal RM Normal H-CBC Reviewed date:01/05/2025 08:49:49 AM Interpretation: Performing Lab: Notes/Report: WBC 8.6 4.8-10.8 K/mm3 Delta: 11.5 o n 01/04/25 RBC 4.23 4.20-5.40 M/mm3 HGB 12.3 12.2-16.2 [...] 0.1 0-0.2 K/mm3 NRBC# 0 IG# 0.88 P-Culture, Urine Reviewed date:01/18/2025 02:40:55 PM Interpretation: Performing Lab: Notes/Report: Test performed by [facility] [address] [place] [address] , [address], [place] [address] Tim Parrish MD, Senior Clinical Data Coordinator CLIA: [id number] Specimen Source Urine - Void Culture, Urine See Below Final Report : No Significant Growth Urinalysis - Inhouse Reviewed date:01/16/2025 01:06:05 PM Interpretation: Performing Lab: Notes/Report: Color/Clarity yellow/clear Leuk Neg Nitrite Neg Urobili 3.2 Protein Neg pH 5.5 Blood Neg Sp. Gr. 1.010 Ketone Neg Bili Neg Gluc Neg Urinalysis - Inhouse Reviewed date:01/04/2025 11:41:11 PM Interpretation: Performing Lab: Notes/Report: Color/Clarity yellow Leuk trace Nitrite neg Urobili 3.2 Protein trace pH 5.5 Blood neg Sp. Gr. 1.020 Ketone neg Bili neg Gluc neg CBC Fingerstick (in house) Reviewed date:10/19/2024 08:08:25 [...] - 38 plat 215 100 - 400 Holter Monitor- 48 hour Reviewed date:08/15/2024 08:13:51 AM Interpretation:NSR Performing Lab: Notes/Report: NSR CBC Fingerstick (in house) Reviewed date:07/13/2024 11:31:19 [...] Neg Ketone Neg Bili Neg Gluc Neg Estimated Average Glucose Reviewed date:06/29/2024 04:17:23 PM Interpretation:Normal Performing Lab: Notes/Report: Test performed by [facility] [address] [place] [address] , [place] [address] Tim Parrish MD, Senior Clinical Data Coordinator CLIA: [id number] Estimated Average Glucose (eAG) 108 Estimated Average [...] or iron, eAG should not be evaluated. Percent Saturation Reviewed date:06/29/2024 04:17:23 PM Interpretation:Normal Performing Lab: Notes/Report: Test performed by [facility] [address] [place] [address] , [place] [id number] Tim Parrish MD, Senior Clinical Data Coordinator CLIA: [id number] Percent Saturation 29 15-50 % P-MMA Serum/Plasma, Vitamin B12 Status Reviewed date:06/29/2024 04:17:23 PM Interpretation:Normal Performing Lab: Notes/Report: MMA Serum/Plasma, Vitamin B12 Status 0.15 0.00-0.40 umol/L INTERPRETIVE INFORMATION: MMA Serum/Plasma, Vitamin B12 Status This test was developed and its performance characteristics determined by [facility]. It has not been cleared or approved by the US Food and Drug Administration. This test was performed in a CLIA certified laboratory and is intended for clinical purposes. Performed By: [facility] [address] [place] [address] Senior Clinical Data Coordinator: Cesar Arnold MD, PhD CLIA Number: [id number] Miscell Ref Lab Test Reviewed date:06/29/2024 10:43:23 AM Interpretation: Normal Performing Lab: Notes/Report: Test Cancelled Test Cancelled Other P-Lipid Panel Reviewed date:06/29/2024 04:17:23 PM Interpretation:Normal Performing Lab: Notes/Report: Test performed by [facility], [address] , [address], [place] [address] Tim Parrish MD, Senior Clinical Data Coordinator CLIA: [id number] Cholesterol 125 <200 mg/dL Triglycerides 82 <150 [...] Interpretation:Normal Performing Lab: Notes/Report: Test performed by [facility] [address] [place], [place] [address] [place] , [place] [address] Tim Parrish MD, Senior Clinical Data Coordinator CLIA: [id number] Iron 99 37-145 ug/dL P-Iron Binding Cap Reviewed date:06/29/2024 04:17:23 PM Interpretation:Normal Performing Lab: Notes/Report: Test performed by [facility] [address] [place] [address] [place] [address] Tim Parrish MD, Senior Clinical Data Coordinator CLIA: [id number] Iron Binding Cap 344 250-450 ug/dL P-Hemoglobin A1C Reviewed date:06/29/2024 04:17:23 PM Interpretation:Normal Performing Lab: Notes/Report: Test performed by [facility] [address] [place], [place] [address] [place] , [place] [address] Tim Parrish MD, Senior Clinical Data Coordinator CLIA: [id number] Hemoglobin A1C 5.4 <5.7 % The following HbA1c ranges recommended by the [place] [employer] (ADA) may be used as an aid in the diagnosis of diabetes mellitus. HbA1c Suggested Diagnosis >=6.5% Diabetic 5.7% - 6.4% Pre-Diabetic <5.7% Non-Diabetic P-T4 Free (thyroxine) Reviewed date:06/29/2024 04:17:23 PM Interpretation:Normal Performing Lab: Notes/Report: Test performed by [facility] [address] [place] [address] [place] [address] Tim Parrish MD, Senior Clinical Data Coordinator CLIA: [id number] Thyroxine Free (free T4) 0.94 0.86-1.76 ng/dL P-Ferritin Reviewed date:06/29/2024 04:17:23 PM Interpretation:Normal Performing Lab: Notes/Report: Test performed by [facility] [address] [place] [address] , [place] [address] Tim Parrish MD, Senior Clinical Data Coordinator CLIA: [id number] Ferritin 25.1 13.0-301.0 ng/mL P-Selenium, Serum/Plasma Reviewed [...] developed and its performance characteristics determined by [facility]. It has not been cleared or approved by the US Food and Drug Administration. This test was performed in a CLIA certified laboratory and is intended for clinical purposes. Performed By: [facility] [address] [place] [address] Senior Clinical Data Coordinator: Cesar Arnold MD, PhD CLIA Number: [id number] P-Folate Reviewed date:06/29/2024 04:17:23 PM Interpretation:Normal Performing Lab: Notes/Report: Test performed by [facility] [address] [place] [address] , [address], [place] [address] Tim Parrish MD, Senior Clinical Data Coordinator CLIA: [id number] Folate >20 >4.59 ng/mL P-Copper Reviewed date:06/29/2024 [...] developed and its performance characteristics determined by [facility]. It has not been cleared or approved by the US Food and Drug Administration. This test was performed in a CLIA certified laboratory and is intended for clinical purposes. Performed By: [facility] [address] [place] [address] Senior Clinical Data Coordinator: Cesar Arnold MD, PhD CLIA Number: [id number] P-Comprehensive Metabolic Pa suzanne (CMP) Reviewed date:06/29/2024 04:17:23 PM Interpretation:bun 28, alt 81, ast 51 Performing Lab: Notes/Report: Test performed by [facility] [address] [place] [address] , [address], [place] [address] Tim Parrish MD, Senior Clinical Data Coordinator CLIA: [id number] Sodium 139 135-145 mmol/L Potassium 4.9 3.5-5.3 [...] Interpretation:Normal Performing Lab: Notes/Report: Test performed by [facility], [address] , [address], [place] [address] Tim Parrish MD, Senior Clinical Data Coordinator CLIA: [id number] WBC 6.1 3.8-11.5 K/uL Red Blood Cell [...] K/uL Absolute Immature Granulocyte 0.02 0.00-0.03 K/uL CBC Fingerstick (in house) Reviewed date:08/28/2024 08:12:23 [...] - 38 plat 256 100 - 400 Medications Medication SIG (Take, Route, Frequency, Duration) Notes Start Date End Date Status QUEtiapine Fumarate ER 200 MG 1 tablet in the evening Orally Once a day Active Ezetimibe 10 MG 1 tablet Orally Once a day; Duration: 90 days Active Montelukast Sodium 10 MG 1 tablet Orally Once a day 02/29/2024 Active Venlafaxine HCl ER 225 MG 1 tablet with food Orally Once a day; Duration: 30 days Active Multivitamin - 1 tab(s) orally once a day w/ Iron Active Pantoprazole Sodium 40 MG TAKE 1 TABLET BY MOUTH TWICE DAILY; Duration: 90 Active CareTouch CPAP & BIPAP Hose 1 DIRECTED Active Atorvastatin Calcium 40 MG TAKE 1 TABLET BY MOUTH ONCE DAILY; Duration: 90 Active Prolia 60 MG/ML as directed subcutaneously every 6 months; Duration: 12 month(s) Active oxyBUTYnin Chloride ER 10 MG TAKE 1 TABLET BY MOUTH ONCE DAILY; Duration: 90 days Active Aspirin 81 MG 1 tab(s) orally once a day; Duration: 30 day(s) Active lamoTRIgine 150 MG TAKE 1 TABLET BY TWICE DAILY; Duration: 90 Active Baclofen 10 MG 1 tablet as needed O rally Twice a day Active Calcium Citrate 150 MG 2 capsules Orally Once a day; Duration: 90 days Active Linzess 290 MCG 1 capsule at least 3 0 minutes before the first meal of the day on an empty stomach Orally Once a day; Duration: 30 day(s) Active traZODone HCl 100 MG TAKE 1 TABLET BY [facility] ONCE DAILY AT BEDTIME; Duration: 90 Active Vitamin D3 50 MCG (1999) 1 tablet Orally Once a day; Duration: 30 day(s) Active Estrace 0.1 MG/GM 1 gm Vaginal 3 times per week 07/13/2024 Active Nitroglycerin 0.4 MG 1 tab(s) sublingual ly q 5min prn x 3 Active SUMAtriptan Succinate 50 MG TAKE 1 TABLET BY MOUTH WITH ONSET OF HEADACHE. MAY REPEAT 1 TIME AFTER 2 HOURS. MAX 2 TABLETS IN 24 HOURS.; Duration: 12 days Active Isosorbide Dinitrate 30 MG 1 tablet Orally once daily; Duration: 90 days Active Macrodantin 100 MG 1 capsule at bedtime with food or milk Orally twice a day; Duration: 10 days 01/16/2025 Active Flonase Allergy Relief 50 MCG/ACT 1 spray in each nostril Nasally Twice a day Active hydrOXYzine HCl 10 MG as directed Orally Two times a day; Duration: 90 days Active Immunizations Vaccine Route Administration Date Status [...] W/U Status Risk Notes Problem Essential hypertension (98068110) Essential (primary) hypertension (I10) Active confirmed Problem History of circulatory system disease (843743564) History of ASCVD (Z86.79) Active confirmed Problem COPD - Chronic obstructive pulmonary disease (09647283) COPD (chronic obstructive pulmonary disease) (J44.9) Active confirmed Problem Acute exacerbation of chronic obstructive airways disease (657320579) COPD with exacerbation (J44.1) Active confirmed Problem Osteopenia (247314301) Osteopenia (M85.80) Active confirmed Problem Seasonal allergy (817749698) Seasonal allergies (J30.2) Active confirmed Problem Mixed anxiety and depressive disorder (182646413) Depression with anxiety (F41.8) Active confirmed Problem Overactive urinary bladder (disorder) (525964412) OAB (overactive bladder) (N32.81) Active confirmed Problem Memory loss (10451189) Memory loss (R41.3) Active confirmed Problem Fibromyalgia (959601959) Fibromyalgia (M79.7) Active confirmed Problem Vasomotor rhinitis (1110084) Vasomotor rhinitis (J30.0) Active confirmed Problem Irritable bowel syndrome with diarrhea (652842830) Irritable bowel syndrome with diarrhea (K58.0) Active confirmed Problem Migraine without aura, not refractory (690300659) Migraine without aura and without status migrainosus, not intractable (G43.009) Active confirmed Problem Atrophic vaginitis (47595330) Atrophic vaginitis (N95.2) Active confirmed Problem Sacroiliitis (24821860) Sacroiliitis (M46.1) Active confirmed Problem Dependence on supplemental oxygen (567736333861) Oxygen dependent (Z99.81) Active confirmed Problem Dyslipidemia (259404292) Dyslipidemia (E78.5) Active confirmed Problem Allergic rhinitis caused by pollen (57091528) Seasonal allergic rhinitis due to pollen (J30.1) Active confirmed Problem Degenerative disc disease (89164991) DDD (degenerative disc disease), lumbar (M51.36) Active confirmed Problem 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) Active confirmed Problem Malabsorption syndrome (50442173) Malabsorption due to intolerance, not elsewhere classified (K90.49) Active confirmed Problem Personal history of tobacco use (Z87.891) Active confirmed Problem Degeneration of thoracic intervertebral disc (95506726) DDD (degenerative disc disease), thoracic (M51.34) Active confirmed Vital Signs Heart Rate 72 /min 01/16/2025 Blood pressure diastolic 70 mm Hg 01/16/2025 Height 65 in 01/16/2025 Blood pressure systolic 112 mm Hg 01/16/2025 Weight 140.8 lbs 01/16/2025 BMI 23.43 kg/m2 01/16/2025 Encounters Encounter Location Date Provider Diagnosis [facility] [address] [facility] [address] [place] Khan [id number] 02/03/2024 China Sánchez Non-seasonal allergi c rhinitis, unspecified trigger J30.89 ; Benign paroxysmal positional vertigo due to bilateral vestibular disorder H81.13 and Symptomatic hypotension I95.9 [facility] [address] [facility] [address] [place] Khan [id number] 02/29/2024 R Foreign Emmanuel Fibromyalgia M79.7 a nd Seasonal allergies J30.2 [facility] [address] [facility] [address] [place] Khan [id number] 03/30/2024 R Foreign Emmanuel Vaginal yeast infect ion B37.31 and Abnormal thyroid function test R94.6 [facility] [address] [facility] [address] [place] Khan [id number] 04/27/2024 R Foreign Emmanuel Seasonal allergies J30.2 and Fibromyalgia M79.7 [facility] [address] [facility] [address] [place] Khan [id number] 06/22/2024 R Foreign Emmanuel Fibromyalgia M79.7 ; Malabsorption due to intolerance, not elsewhere classified K90.49 ; Status post bariatric surgery Z98.84 ; Dyslipidemia E78.5 ; Vaginal yeast infection B37.31 and Hypoglycemia E16.2 [facility] [address] [facility] [address] [place] Khan [id number] 06/26/2024 Sang [place] Malabsorption due to intolerance, not elsewhere classified K90.49 [facility] [address] [facility] [address] [place] Khan [id number] 07/13/2024 R Foreign Emmanuel URI (upper respirato ry infection) J06.9 and Atrophic vaginitis N95.2 [facility] [address] [facility] [address] [place] Khan [id number] 07/25/2024 R Foreign Emmanuel Palpitations R00.2 [facility] [address] [facility] [address] [place] Khan [id number] 08/28/2024 Marlena Antonio Sinusitis J32.9 and Papules R23.8 [facility] [address] [facility] [address] [place], [place] [id number] 10/19/2024 R Foreign [place] Acute bronchitis J20 .9 ; COPD (chronic obstructive pulmonary disease) J44.9 ; Dyslipidemia E78.5 ; Seasonal allergies J30.2 and BMI 24.0-24.9, adult Z68.24 [facility] [address] [facility] [address] [place] [id number] 12/29/2024 China Crowdy Hypoxia R09.02 ; Dysuria R30.0 ; Chills R68.83 and BMI 24.0-24.9, adult Z68.24 [facility] [address] [facility] [address] [place], [place] [id number] 12/30/2024 China Crowdy Dysuria R30.0 [facility] [address] [facility] [address] [place], [place] [id number] 01/02/2025 R Foreign [place] Adult general medica l examination Z00.00 ; Flank pain, acute R10.10 ; Hematuria R31.9 ; Depression with anxiety F41.8 ; History of ASCVD Z86.79 ; Osteopenia M85.80 ; Personal history of tobacco use Z87.891 ; COPD (chronic obstructive pulmonary disease) J44.9 ; Essential (primary) hypertension I10 ; Seasonal allergies J30.2 ; Dyslipidemia E78.5 and BMI 24.0-24.9, adult Z68.24 [facility] [address] [facility] [address] [place], [place] [id number] 01/04/2025 R Foreign Emmanuel Pyelonephritis N12 [facility] [address] [facility] [address] [place], [place] [id number] 01/16/2025 R Foreign Emmanuel Pyelonephritis N12 [facility] [address] [facility] [address] [place], [place] [id number] 01/22/2025 R Foreign Emmanuel [facility] [address] [facility] [address] [place], [place] [id number] 02/16/2024 R Foreign Emmanuel Fibromyalgia M79.7 [facility] [address] [place], [place] [id number] 03/14/2024 R Foreign Emmanuel [facility] [address] [place], [place] [id number] 05/24/2024 R Foreign Emmanuel Seasonal allergies J30.2 [facility] [address] [place], [place] [id number] 06/29/2024 R Foreign Emmanuel [facility] [address] [place], [place] [id number] 07/03/2024 R Foreign Emmanuel [facility] [address] [place], [place] [id number] 08/15/2024 R Foreign Emmanuel [facility] [address] [place], [place] [id number] 08/15/2024 R Foreign Emmanuel [facility] [address] [place], [place] [id number] 08/17/2024 R Foreign Emmanuel Seasonal allergies J30.2 [facility] [address] [place], [place] [id number] 10/31/2024 R Foreign Emmanuel [facility] [address] [place], [place] [id number] 11/21/2024 R Foreign Emmanuel [facility] [address] [place], [place] [id number] 01/02/2025 China Liondy [facility] [address] [place], [place] [id number] 01/02/2025 R Foreign Emmanuel [facility] [address] [place], [place] [id number] 01/09/2025 R Foreign Emmanuel [facility] [address] [place], [place] [id number] 01/18/2025 R Foreign Emmanuel Assessments Encounter Date Diagnosis [...] B37.31) 04/27/2024 Seasonal allergies (ICD-10 - J30.2) 05/24/2024 Seasonal allergies (ICD-10 - J30.2) 06/22/2024 [...] left kidney. May represent early pyelonephritis 01/02/2025 Adult general medical examination (ICD-10 - Z00.00) Patient instructed to return to office Annually for Annual Wellness Visits to include annual screenings of Pain assessment, Functional Ability assessment, Cognitive Ability assessment, Fall Risk assessment, Depression screening and Bladder control screening. 01/04/2025 Pyelonephritis (ICD-10 - N12) She has failed to oral antibiotics. Plan for direct admission to [facility] for IV fluids and IV antibiotics. 01/16/2025 Pyelonephritis (ICD-10 - N12) Will start oral Macrodantin based on her previous urine culture while awaiting repeat culture obtained today. 01/02/2025 Hematuria (ICD-10 - R31.9) 12/29/2024 Chills (ICD-10 - R68.83) 10/19/2024 Dyslipidemia (ICD-10 - E78.5) 06/22/2024 Status post bariatric surgery (ICD-10 - Z98.84) 04/27/2024 Fibromyalgia (ICD-10 - M79.7) 02/03/2024 Symptomatic hypotension (ICD-10 - I95.9) Will stop losartan and monitor BP. If still low, will contact cardiology. 06/22/2024 Dyslipidemia (ICD-10 - E78.5) 12/29/2024 BMI 24.0-24.9, adult (ICD-10 - Z68.24) 10/19/2024 Seasonal allergies (ICD-10 - J30.2) 01/02/2025 Depression with anxiety (ICD-10 - F41.8) 01/02/2025 History of ASCVD (ICD-10 - Z86.79) 10/19/2024 BMI 24.0-24.9, adult (ICD-10 - Z68.24) 06/22/2024 Vaginal yeast infection (ICD-10 - B37.31) 06/22/2024 Hypoglycemia (ICD-10 - E16.2) 01/02/2025 Osteopenia (ICD-10 - M85.80) 01/02/2025 Personal history of tobacco use (ICD-10 - Z87.891) 01/02/2025 COPD (chronic obstructive pulmonary disease) (ICD-10 - J44.9) 01/02/2025 Essential (primary) hypertension (ICD-10 - I10) 01/02/2025 Seasonal allergies (ICD-10 - J30.2) 01/02/2025 Dyslipidemia (ICD-10 - E78.5) 01/02/2025 BMI 24.0-24.9, adult (ICD-10 - Z68.24) Plan Of Treatment Pending Test Test Name Order Date P-Comprehensive Metabolic Panel (CMP) P-Lipid Panel 09/21/2023 Insurance Providers Payer Name Payer Address Payer Phone Subscriber Number Group Number Insured Name Patient Relationship to Insured Coverage Start Date Coverage End Date MEDICARE PART B [address] [address] [place] [address] [id number] WENDY DORAN Self - patient is the insured [facility] [address] [place] [id number] WENDY DORAN Self - patient is the insured Medications Administered Medication Instructions Date of Administration Dosage Notes Dexamethasone 06/28/2018 1 mL Dexamethasone 05/02/2019 1 mL Dexamethasone 02/10/2022 1 mL Dexamethasone 06/09/2022 1 mL Phenergan 12.5 mgs. 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 Ca th showed [...] 12/2019 [facility]-Bronchitis 03/2018 [facility]-diarrhea 11/2015 [facility]-constipation/impaction 2015 [facility]-heart attack 12/31/2014 [facility]-back pain 06/2012 [facility]-diarrhea 03/2011
--- OUTSIDE RECORDS SUMMARY | 2025-02-01 10:40 | XMS_ITS | Continuity of Care Document ---
Author Organization [place] - [facility] - [place] & [place], [facility] the Address [address] [facility] [address] [place] [address] Care Team Providers Care Integration Software Developer Name Role Phone GENET BRUCE Primary Care [...] recommended 04/2029 for screening. f/u 1 month [email or web address] Not available 12/27/2024 14:41:04 Plan of Treatment Reminders Order Date Submit Date Provider Last Modified By Organization Details Last Modified Time Details Appointments Establish ed Visit 15 min 2024 10:45A M Ernesto Amezcua PA-C Not available Not available Not available OV EST 20 2024 10:00A M Aden Husain, DNP, DEPOSITION OPERATOR, ROAST MASTER-C Not available Not available Not available Lab None recorded. Referral None recorded. Procedures biopsy, liver (PROC) - CT or US guidance, depending on radiologi st's preferenc e 2024 025 [email or web address] Gtwn [place]oma Number, [address] [place] [address], [address], 02/01/2025 09:18:22 Surgeries None recorded. Imaging None recorded. Medication Orders None recorded. Patient TargetsNo targets recorded. Patient InstructionsNo instructions recorded. Reason for Referral None Reported. Results Created Date Observation Date Name Description Value Unit Range Abnormal Flag Note LastModifiedBy Organization Detail LastModifiedTime 12/09/1912/09/2024 FE+TI BC+FE R iron bind.cap.(TI BC) 336 ug/dL 250-45 0 normal Not Available [facility] ([facility]) [address] [place], [address], 12/15/2024 14:37:18 12/09/19 25 12/09/2024 FE+TI BC+FE R UIBC 214 ug/dL 118-36 9 normal Not Available [facility] ([facility]) [address] [place], [address], 12/15/2024 14:37:18 12/09/19 25 12/09/2024 FE+TI BC+FE R iron 122 ug/dL 27-139 normal Not Available [facility] ([facility]) [address] [place], [address], 12/15/2024 14:37:18 12/09/19 25 12/09/2024 FE+TI BC+FE R iron saturation 36 % 15-55 normal Not Available [facility] ([facility]) [address] [place], [address], 12/15/2024 14:37:18 12/09/19 25 12/09/2024 FE+TI BC+FE R ferritin 31 NG/mL 15-150 normal Not Available [facility] ([facility]) [address] [place], [address], 12/15/2024 14:37:18 12/09/1912/09/2024 TSH+F REE T4 TSH 2.100 uIU/m L 0.450- 4.500 normal Not Available [facility] ([facility]) [address] [place], [address], 12/15/2024 14:37:19 12/09/19 25 12/09/2024 TSH+F REE T4 T4,free(dire ct) 0.83 NG/dL 0.82-1 .77 normal Not Available [facility] ([facility]) [address] [place], [address], 12/15/2024 14:37:19 12/09/19 25 12/08/2024 CBC WITH DIFFE RENTI AL/PL ATELE T WBC 6.1 x10e3 /uL 3.4-10 .8 normal Not Available [facility] ([facility]) [address] [place], [address], 12/15/2024 14:37:20 12/09/19 25 12/08/2024 CBC WITH DIFFE RENTI AL/PL ATELE T RBC 4.92 x10e6 /uL 3.77-5 .28 normal Not Available [facility] ([facility]) [address] [place], [address], 12/15/2024 14:37:20 12/09/19 25 12/08/2024 CBC WITH DIFFE RENTI AL/PL ATELE T hemoglobin 14.9 g/dL 11.1-1 5.9 normal Not Available [facility] ([facility]) [address] [place], [address], 12/15/2024 14:37:20 12/09/19 25 12/08/2024 CBC WITH DIFFE RENTI AL/PL ATELE T hematocrit 45.6 % 34.0-4 6.6 normal Not Available [facility] ([facility]) [address] [facility], [place], [address], 12/15/2024 14:37:20 12/09/19 25 12/08/2024 CBC WITH DIFFE RENTI AL/PL ATELE T MCV 93 fL 79-97 normal Not Available [facility] ([facility]) [address] [place], [address], 12/15/2024 14:37:20 12/09/19 25 12/08/2024 CBC WITH DIFFE RENTI AL/PL ATELE T MCH 30.3 pg 26.6-3 3.0 normal Not Available [facility] ([facility]) [address] [place], [address], 12/15/2024 14:37:20 12/09/19 25 12/08/2024 CBC WITH DIFFE RENTI AL/PL ATELE T MCHC 32.7 g/dL 31.5-3 5.7 normal Not Available [facility] ([facility]) [address] [place], [address], 12/15/2024 14:37:20 12/09/19 25 12/08/2024 CBC WITH DIFFE RENTI AL/PL ATELE T RDW 12.5 % 11.7-1 5.4 Not Available [facility] ([facility]) [address] [place], [address], 12/15/2024 14:37:20 12/09/19 25 12/08/2024 CBC WITH DIFFE RENTI AL/PL ATELE T platelets 234 x10e3 /uL 150-45 0 normal Not Available [facility] ([facility]) [address] [facility], [place], [address], 12/15/2024 14:37:20 12/09/19 25 12/08/2024 CBC WITH DIFFE RENTI AL/PL ATELE T neutrophils 56 % not estab. normal Not Available [facility] ([facility]) [address] [facility], [place], [address], 12/15/2024 14:37:20 12/09/19 25 12/08/2024 CBC WITH DIFFE RENTI AL/PL ATELE T lymphs 28 % not estab. normal Not Available [facility] ([facility]) [address] [facility], [place], [address], 12/15/2024 14:37:20 12/09/19 25 12/08/2024 CBC WITH DIFFE RENTI AL/PL ATELE T monocytes 10 % not estab. normal Not Available [facility] ([facility]) [address] [facility], [place], [address], 12/15/2024 14:37:20 12/09/19 25 12/08/2024 CBC WITH DIFFE RENTI AL/PL ATELE T eos 5 % not estab. normal Not Available [facility] ([facility]) [address] [facility], [place], [address], 12/15/2024 14:37:20 12/09/19 25 12/08/2024 CBC WITH DIFFE RENTI AL/PL ATELE T basos 1 % not estab. normal Not Available [facility] ([facility]) [address] [facility], [place], [address], 12/15/2024 14:37:20 12/09/19 25 12/08/2024 CBC WITH DIFFE RENTI AL/PL ATELE T immature cells ROAST MASTER Not Available [facility] ([facility]) [address] [place], [address], 12/15/2024 14:37:20 12/09/19 25 12/08/2024 CBC WITH DIFFE RENTI AL/PL ATELE T neutrophils (absolute) 3.5 x10e3 /uL 1.4-7. 0 normal Not Available [facility] ([facility]) [address] [place], [address], 12/15/2024 14:37:20 12/09/19 25 12/08/2024 CBC WITH DIFFE RENTI AL/PL ATELE T lymphs (absolute) 1.7 x10e3 /uL 0.7-3. 1 normal Not Available [facility] ([facility]) [address] [place], [address], 12/15/2024 14:37:20 12/09/19 25 12/08/2024 CBC WITH DIFFE RENTI AL/PL ATELE T monocytes(ab solute) 0.6 x10e3 /uL 0.1-0. 9 normal Not Available [facility] ([facility]) [address] [place], [address], 12/15/2024 14:37:20 12/09/19 25 12/08/2024 CBC WITH DIFFE RENTI AL/PL ATELE T eos (absolute) 0.3 x10e3 /uL 0.0-0. 4 normal Not Available [facility] ([facility]) [address] [place], [address], 12/15/2024 14:37:20 12/09/19 25 12/08/2024 CBC WITH DIFFE RENTI AL/PL ATELE T baso (absolute) 0.1 x10e3 /uL 0.0-0. 2 normal Not Available [facility] ([facility]) [address] [place], [address], 12/15/2024 14:37:20 12/09/19 25 12/08/2024 CBC WITH DIFFE RENTI AL/PL ATELE T immature granulocytes 0 % not estab. Not Available [facility] ([facility]) [address] [facility], [place], [address], 12/15/2024 14:37:20 12/09/19 25 12/08/2024 CBC WITH DIFFE RENTI AL/PL ATELE T immature grans (abs) 0.0 x10e3 /uL 0.0-0. 1 Not Available [facility] ([facility]) [address] [facility], [place], [address], 12/15/2024 14:37:20 12/09/19 25 12/08/2024 CBC WITH DIFFE RENTI AL/PL ATELE T NRBC ROAST MASTER Not Available [facility] ([facility]) [address] [facility], [place], [address], 12/15/2024 14:37:20 12/09/19 25 12/08/2024 CBC WITH DIFFE RENTI AL/PL ATELE T hematology comments: ROAST MASTER Not Available [facility] ([facility]) [address] [facility], [place], [address], 12/15/2024 14:37:20 12/09/19 25 12/09/2024 COMP. METAB OLIC PANEL (14) glucose 91 mg/dL 70-99 normal Not Available [facility] ([facility]) [address] [facility], [place], [address], 12/15/2024 14:37:21 12/09/19 25 12/09/2024 COMP. METAB OLIC PANEL (14) BUN 33 mg/dL 8-27 above high normal Not Available [facility] ([facility]) [address] [facility], [place], [address], 12/15/2024 14:37:21 12/09/19 25 12/09/2024 COMP. METAB OLIC PANEL (14) creatinine 0.86 mg/dL 0.57-1 .00 normal Not Available [facility] ([facility]) [address] [place], [address], 12/15/2024 14:37:21 12/09/19 25 12/09/2024 COMP. METAB OLIC PANEL (14) eGFR 74 mL/mi n/1.7 3 >59 normal Not Available [facility] ([facility]) [address] [place], [address], 12/15/2024 14:37:21 12/09/19 25 12/09/2024 COMP. METAB OLIC PANEL (14) BUN/creatini ne ratio 38 12-28 above high normal Not Available [facility] ([facility]) [address] [place], [address], 12/15/2024 14:37:21 12/09/19 25 12/09/2024 COMP. METAB OLIC PANEL (14) sodium 139 mmol/ L 134-14 4 normal Not Available [facility] ([facility]) [address] [place], [address], 12/15/2024 14:37:21 12/09/19 25 12/09/2024 COMP. METAB OLIC PANEL (14) potassium 4.4 mmol/ L 3.5-5. 2 normal Not Available [facility] ([facility]) [address] [place], [address], 12/15/2024 14:37:21 12/09/19 25 12/09/2024 COMP. METAB OLIC PANEL (14) chloride 104 mmol/ L 96-106 normal Not Available [facility] ([facility]) [address] [facility] [place], [address], 12/15/2024 14:37:21 12/09/19 25 12/09/2024 COMP. METAB OLIC PANEL (14) carbon dioxide, total 21 mmol/ L 20-29 normal Not Available [facility] ([facility]) [address] [facility] [place], [address], 12/15/2024 14:37:21 12/09/19 25 12/09/2024 COMP. METAB OLIC PANEL (14) calcium 9.4 mg/dL 8.7-10 .3 normal Not Available [facility] ([facility]) [address] [place], [address], 12/15/2024 14:37:21 12/09/19 25 12/09/2024 COMP. METAB OLIC PANEL (14) protein, total 6.5 g/dL 6.0-8. 5 normal Not Available [facility] ([facility]) [address] [place], [address], 12/15/2024 14:37:21 12/09/19 25 12/09/2024 COMP. METAB OLIC PANEL (14) albumin 4.2 g/dL 3.9-4. 9 normal Not Available [facility] ([facility]) [address] [place], [address], 12/15/2024 14:37:21 12/09/19 25 12/09/2024 COMP. METAB OLIC PANEL (14) globulin, total 2.3 g/dL 1.5-4. 5 Not Available [facility] ([facility]) [address] [place], [address], 12/15/2024 14:37:21 12/09/19 25 12/09/2024 COMP. METAB OLIC PANEL (14) bilirubin, total 0.4 mg/dL 0.0-1. 2 normal Not Available [facility] ([facility]) [address] [place], [address], 12/15/2024 14:37:21 12/09/19 25 12/09/2024 COMP. METAB OLIC PANEL (14) alkaline phosphatase 87 IU/L 44-121 normal Not Available [facility] ([facility]) [address] [place], [address], 12/15/2024 14:37:21 12/09/19 25 12/09/2024 COMP. METAB OLIC PANEL (14) AST (SGOT) 62 IU/L 0-40 above high normal Not Available [facility] ([facility]) [address] [place], [address], 12/15/2024 14:37:21 12/09/19 25 12/09/2024 COMP. METAB OLIC PANEL (14) ALT (SGPT) 89 IU/L 0-32 above high normal Not Available [facility] ([facility]) [address] [place], [address], 12/15/2024 14:37:21 12/09/19 25 12/09/2024 LIPID PANEL cholesterol, total 117 mg/dL 100-19 9 normal Not Available [facility] ([facility]) [address] [place], [address], 12/15/2024 14:37:22 12/09/19 25 12/09/2024 LIPID PANEL triglyceride s 69 mg/dL 0-149 normal Not Available [facility] ([facility]) [address] [place], [address], 12/15/2024 14:37:22 12/09/19 25 12/09/2024 LIPID PANEL HDL cholesterol 59 mg/dL >39 normal Not Available [facility] ([facility]) [address] [place], [address], 12/15/2024 14:37:22 12/09/19 25 12/09/2024 LIPID PANEL VLDL cholesterol apurva 14 mg/dL 5-40 Not Available [facility] ([facility]) [address] [place], [address], 12/15/2024 14:37:22 12/09/19 25 12/09/2024 LIPID PANEL LDL chol calc ([facility]) 44 mg/dL 0-99 Not Available [facility] ([facility]) [address] [facility], [place], [address], 12/15/2024 14:37:22 12/09/19 25 12/09/2024 LIPID PANEL LDL calc comment: ROAST MASTER Not Available [facility] ([facility]) [address] [facility], [place], [address], 12/15/2024 14:37:22 12/09/19 25 12/15/2024 VITAM IN E vitamin E(alpha tocopherol) 13.1 mg/L 9.0-29 .0 Not Available [facility] ([facility]) [address] [facility], [place], [address], 12/15/2024 14:37:23 12/09/19 25 12/15/2024 VITAM IN [...] in E defic ient. Not Available [facility] ([facility]) [address] [facility], [place], [address], 12/15/2024 14:37:23 12/09/19 25 12/09/2024 HEMOG LOBIN A1C hemoglobin A1C 5.5 % 4.8-5. 6 normal Predi abete s: 5.7 - 6.4 Diabe inessa: >6.4 Glyce amauri contr ol for adult s with diabe inessa: <7.0 Not Available [facility] ([facility]) [address] [facility], [place], [address], 12/15/2024 14:37:24 12/09/19 25 12/09/2024 FOLAT E (FOLI C ACID) , SERUM folate (folic acid), serum >20.0 NG/mL >3.0 A serum folat e yanet ntrat ion of less than 3.1 ng/mL is consi dered to repre sent clini apurva defic iency . Not Available [facility] ([facility]) [address] [facility], [place], [address], 12/15/2024 14:37:24 12/09/19 25 12/15/2024 VITAM IN [...] e ayesha cteri stics deter mined by [employer]. It has not been clear ed or appro viki by the Food and Drug Admin istra tion. Not Available [facility] ([facility]) [address] [facility], [place], [address], 12/15/2024 14:37:25 12/09/19 25 12/09/2024 VITAM IN [...] Joanna roque [place]: The Natio nal [facility] Press . 2. Junie lugo MF, Garrick wallace [place], Valeria off-F errar i TURCIOS, et al. Evalu ation , treat ment, and preve ntion of vitam in D defic iency : an Endoc rine Socie ty clini apurva pract ice guide line. JCEM. 2010; 96(7) :1911 -30. Not Available [facility] ([facility]) [address] [facility], [place], [address], 12/15/2024 14:37:26 12/09/19 25 12/14/2024 VITAM IN B1 (THIA MINE) , BLOOD vit. B1, whole blood 324.9 nmol/ L 66.5-2 00.0 above high normal Not Available [facility] ([facility]) [address] [facility], [place], [address], 12/15/2024 14:37:27 12/09/19 25 12/13/2024 METHY LMALO ALICIA ACID, SERUM methylmaloni c acid, serum 278 nmol/ L 0-378 Not Available [facility] ([facility]) [address] [facility], [place], [address], 12/15/2024 14:37:28 12/09/19 25 12/11/2024 COPPE R, SERUM OR PLASM A copper, serum or plasma 106 ug/dL 80-158 Detec tion Limit = 5 Not Available [facility] ([facility]) [address] [place], [address], 12/15/2024 14:37:29 12/09/19 25 12/11/2024 ZINC, PLASM A OR SERUM zinc, plasma or serum 75 ug/dL 44-115 normal Detec tion Limit = 5 Not Available [facility] ([facility]) [address] [place], [address], 12/15/2024 14:37:30 12/09/19 25 12/09/2024 PREAL BUMIN prealbumin 22 mg/dL 10-36 Not Available [facility] ([facility]) [address] [place], [address], 12/15/2024 14:37:30 12/09/19 25 12/12/2024 SELEN IUM, BLOOD selenium, blood 155 ug/L 100-34 0 Detec tion Limit = 10 Not Available [facility] ([facility]) [address], [place], [address], 12/15/2024 14:37:31 01/19/20 25 01/18/2025 US biops y liver [facility] [address] [place] [address] Phone: Fax: Name: MARIA ISABEL GOLDMAN Exam Date: : [birth year] Age 69 years Gender : F Access ion: [id number] Physic mani: ERNESTO AMEZCUA Facili ty: [facility] Facili ty HSV: Outpat ient Exam: US BIOPSY LIVER US GUIDED LIVER BIOPSY REASON FOR STUDY: metabo lic dysfun ction- associ ated steato hepati tis, nonalc ohol PATIEN T DEMOGR APHICS :69 years, Female COMPAR AUGUSTINE: No existi ng releva nt imagin g study corres mirtha rgoers to the same anatom [facility] region is availa ble. DATE OF SERVIC E: 8:18 AM CDT Proced ure: 1. CT-jean ded biopsy of right hepati c lobe 2. CT guidan ce used for locali zation 3. Modera te IV consci ous sedati on for 0.5 hrs Modera te sedati on servic es provid ed by the same physic mani perfor rhianna the diagno stic or therap eutic servic e and was prefor med in the presen ce of an indepe ndent traine d observ er to assist in the monito ring of the patien t's level of consci ousnes s and physio logica l status . Proced ure detail : The proced ure risks, benefi ts, and altern ative to treatm ents were fully explai javy to the patien t and inform ed consen t was obtain ed. The patien t was placed supine on the CT table and steril vinod preppe d and draped in the usual manner . A time out was perfor med with the staff. After instil lation of local lidoca ine anesth esia, a #11 blade was used to make a 1-2 mm incisi on. A 17-gau ge coaxia l needle was placed within the right hepati c lobe the inner stylet te was remove d and 4 core biopsi es were obtain ed with a 18-gau ge gauge needle . The specim ens were collec serenity and sent to [facility] for furthe r analys is. After the proced ure, all the needle s were remove d. Manual pressu re was used for hemost asis and approp riate dressi ngs were marcus mccall. Impres yifan: 1. CT-jean ded right hepati c lobe biopsy as descri bed above. Electr onical ly signed by: Corky siu MD 2024 12:45 PM EDT RP Workst ation: [id number] Dictat ed By: Corky Suggs Transc ribed By: Transc ribed On: 025 12:45 PM Electr onical ly signed by: Corky Suggs 025 Thank you for referr MARIA ISABEL Turpin to [facility]. Legall y authen ticate d by LUANA JEROME 01-18 12:45: 20 CC'ed Logic: Orderi ng Provid er: CARLA GOVEA Attend ing Provid er: CARLA GOVEA Referr ing Provid er: CARLA GOVEA Admitt ing Provid er: CARLA GOVEA [id number] [facility] [address] [facility], [place], [address], 01/19/2025 13:40:21 01/30/20 25 01/18/2025 US biops y liver [facility] [address] [place] [address] Phone: Fax: Name: MARIA ISABEL GOLDMAN Exam Date: 7/10/2 025 : [birth year] Age 69 years Gender : F Access ion: [id number] Physic mani: ERNESTO AMEZCUA Facili ty: [facility] Facili ty HSV: Outpat ient Exam: US BIOPSY LIVER US GUIDED LIVER BIOPSY REASON FOR STUDY: metabo lic dysfun ction- associ ated steato hepati tis, nonalc ohol PATIEN T DEMOGR APHICS :69 years, Female COMPAR AUGUSTINE: No existi ng releva nt imagin g study corres pondin g to the same anatom ical region is availa ble. DATE OF SERVIC E: 025 8:18 AM CDT Proced ure: 1. CT-jean ded biopsy of right hepati c lobe 2. CT guidan ce used for locali zation 3. Modera te IV consci ous sedati on for 0.5 hrs Modera te sedati on servic es provid ed by the same physic mani perfor rhianna the diagno stic or therap eutic servic e and was prefor med in the presen ce of an indepe ndent traine d observ er to assist in the monito ring of the patien t's level of consci ousnes s and physio logica l status . Proced ure detail : The proced ure risks, benefi ts, and altern ative to treatm ents were fully explai javy to the patien t and inform ed consen t was obtain ed. The patien t was placed supine on the CT table and steril vinod preppe d and draped in the usual manner . A time out was perfor med with the staff. After instil lation of local lidoca ine anesth esia, a #11 blade was used to make a 1-2 mm incisi on. A 17-gau ge coaxia l needle was placed within the right hepati c lobe the inner stylet te was remove d and 4 core biopsi es were obtain ed with a 18-gau ge gauge needle . The specim ens were collec serenity and [facility] for furthe r analys is. After the proced ure, all the needle s were remove d. Manual pressu re was used for hemost asis and approp riate dressi ngs were applie d. Impres yifan: 1. CT-jean ded right hepati c lobe biopsy as descri bed above. Electr onical ly signed by: Corky siu MD 2024 12:45 PM EDT RP Workst ation: [id number] Dictat ed By: Corky Suggs Transc ribed By: Transc ribed On: 12:45 PM Electr onical ly signed by: Corky Suggs Addend um 1 ADDEND UM #1 Proced ure was perfor med under ultras ound guidan ce and not CT guidan ce Electr onical ly signed by: Corky siu MD 2024 09:12 AM EDT RP Workst ation: [id number] Legall y authen ticate d by LUANA JEROME 01-29 09:12: 37 ORIGIN AL REPORT US GUIDED LIVER BIOPSY REASON FOR STUDY: metabo lic dysfun ction- associ ated steato hepati tis, nonalc ohol PATIEN T DEMOGR APHICS :69 years, Female COMPAR AUGUSTINE: No existi ng releva nt imagin g study corres mirtha rogers to the same anatom ical region is availa ble. DATE OF SERVIC E: 8:18 AM CDT Proced ure: 1. CT-jean ded biopsy of right hepati c lobe 2. CT guidan ce used for locali zation 3. Modera te IV consci ous sedati on for 0.5 hrs Modera te sedati on servic es provid ed by the same physic mani perfor rhianna the diagno stic or therap eutic servic e and was prefor med in the presen ce of an indepe ndent traine d observ er to assist in the monito ring of the patien t's level of consci ousnes s and physio logica l status . Proced ure detail : The proced ure risks, benefi ts, and altern ative to treatm ents were fully explai javy to the patien t and inform ed consen t was obtain ed. The patien t was placed supine on the CT table and steril vinod preppe d and draped in the usual manner . A time out was perfor med with the staff. After instil lation of local lidoca ine anesth esia, a #11 blade was used to make a 1-2 mm incisi on. A 17-gau ge coaxia l needle was placed within the right hepati c lobe the inner stylet te was remove d and 4 core biopsi es were obtain ed with a 18-gau ge gauge needle . The specim ens were collec serenity and sent to [facility] for furthe r analys is. After the proced ure, all the needle s were remove d. Manual pressu re was used for hemost asis and approp riate dressi ngs were applnelli mccall. Impres yifan: 1. CT-jean ded right hepati c lobe biopsy as descri bed above. Electr onical ly signed by: Corky siu MD 2024 12:45 PM EDT RP Workst ation: [id number] Dictat ed By: Corky Suggs Dictat ed Date: 025 9:12:3 7 AM Electr onical ly signed by: Corky Suggs 025 [facility] Legall y authen ticate d by LUANA JEROME 2024-0 01-29 09:12: 37 CC'ed Logic: Orderi ng Provid er: [facility] Attend ing Provid er: [facility] Referr ing Provid er: [facility] Admitt ing Provid er: [facility] INTERFACE [facility] [address] [facility], [place], [address], 01/29/2025 09:16:30 Result Notes None recorded. Problems Name Problem SNOMED Code Status Onset Date Resolution Date Notes Provider Name and Address Organization Details Recorded Time Chronic idiopathi c constipat ion 20197170 Active 2021 Not Available [facility] 3 16:06:44 Gastroeso phageal reflux disease 592274160 Active 2021 Not Available [facility] 3 16:06:44 Diarrhea 70539055 Active 2021 Not Available [facility] 3 16:06:44 Hypokalem ia 75910641 Active 2021 Not Available [facility] 3 16:06:44 Abdominal pain 59769234 Active 2021 Not Available [facility] 3 16:06:44 Myocardia l infarctio n 91832126 Completed 202103/25/2022 Azeb Quesada null, [place] [facility] - [place] & [place] 2 14:37:03 Fibromyal dominique 031192282 Active 2021 Not Available [facility] 3 16:06:44 Mild dementia 78981510067 4108 Active 2021 Not Available [facility] 3 16:06:44 Chronic obstructi ve pulmonary disease 85085837 Active 2021 Not Available [facility] 3 16:06:44 Hiatal hernia 74996443 Completed 202103/25/2022 Azeb Quesada null, [place] [facility] - [place] & [place] 2 14:38:57 Chronic depressio n 724726781 Active 2021 Not Available [facility] 3 16:06:44 Obesity 507204578 Active 2021 Ernesto Amezcua PA-C [address] , [place], [address] , [place] [facility] - [place] & [place] 2 14:51:36 Hypertens silvino disorder 64462762 Active 2022 Not Available [facility] 3 16:06:44 Dyslipide franc 799981240 Active 2022 Not Available [facility] 3 16:06:44 Morbid obesity 643202046 Active 2022 Not Available [facility] 3 16:06:44 Dizziness 621504820 Active 2022 Not Available [facility] 3 16:06:44 Intention al weight loss 023613040 Active 2022 Not Available [facility] 3 16:06:44 Constipat ion 72391016 Active 2022 Ernesto Amezcua PA-C [address], [place], [address] , [place] [facility] - [place] & [place] 3 15:41:42 Overweigh t 887488747 Active 2023 Aden Husain, CAMMIE, DEPOSITION OPERATOR, ROAST MASTER-C [address], [place], [place], [address] [place] [address] , [place] [facility] [place] 4 09:57:50 Fatigue 11114448 Active 2023 Aden Husain DNP, DEPOSITION OPERATOR, ROAST MASTER-C [address], [place], [place], [address] [place] [address] , [place] [facility] [place] 4 10:00:39 Liver enzymes level above reference range 312892481 Active 2023 Aden Husain, CAMMIE, DEPOSITION OPERATOR, ROAST MASTER-C [address], [place], [address] [place] [address] , [place] [facility] [place] 4 13:32:45 Low back pain 438487076 Active 2023 Aden Husain DNP, DEPOSITION OPERATOR, ROAST MASTER-C [address], [place], [address] [place] [address] , [place] [facility] [place] 4 15:56:35 Irritable bowel syndrome character ized by constipat ion 207632096 Active [address], [place], [place], [address] [place] [address] , [place] [facility] [place] 4 09:08:46 Metabolic 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 Procedures Surgical History Date Name Laterality Status Provider Name and Address Organization Details Recorded Time 07/23/[address], [place] [address] , [place], [address], [place] [facility] & [place] 08/14/2022 16:17:22 05/28/20 21 Date of Last Pap Smear completed RIMMA [address], LD [address] , [place], [address], [place] [facility] & [place] 08/14/2022 16:17:22 12/20/19 21 Date of Last Colonoscopy completed RIMMA [address], LD [address] , [place], [address], [place] [facility] & [place] 08/14/2022 16:17:22 11/17/19 20 Most Recent Bone Density completed RIMMA [address]AY [address], LD [address] , [place], [address], [place] [facility] & [place] 08/14/2022 16:17:22 Appendectomy completed Not Available [facility] 13:08:39 extraction of wisdom tooth completed Not Available [facility] 08/10/2022 13:08:39 lithotripsy completed Not Available [facility] 07/14 13:08:39 Colonoscopy completed Marychuymynor Escoto [facility] & [place] 08/13/2022 11:21:25 EGD completed Marychuy Escoto [facility] & [place] 08/13/2022 11:21:36 Gastric Bypass completed Dipesh Dow [facility] & [place] 12/29/2022 08:20:27 Imaging Results None recorded. Procedure Notes None recorded. Medical Equipment None Reported. Allergies Allergen ID Allergen Name Allergen Category Reaction Reaction Severity Criticality Documentation Date Start Date Code Code System Note Provider Name and Address Organization Details Recorded Time 97190 Product containin g penicilli n (product) medicatio n Not available Not available Not available 03/25/2022 68237 8001 SNOMED Azeb aguillon [facility] & [place] 2 14:01:10 318206 indometha gen medicatio n Not available Not available Not available 06/19/2024 5781 RxNorm Other react ions and sever ities : 'Adve rse react ion to subst ance' . Kary aguillon, [facility] & [place] 4 14:05:45 321807 penicilli n V Not available Not available Not available Not available 06/19/2024 7984 RxNorm Other react ions and sever ities : 'Anap hylax is due to subst ance' . Kary aguillon, [facility] & [place] 4 14:05:45 805291 milnacipr an medicatio n Not available Not available Not available 06/19/2024 52320 0 RxNorm Other react ions and sever ities : 'Adve rse react ion to subst ance' . Kary aguillon [facility] & [place] 4 14:05:45 35674 Savella medicatio n Not available Not available Not available 08/13/2022 42027 6 RxNorm Marychuy aguillon [facility] & [place] [...] Available atorvastat in 20 mg tablet Take 1 tablet every day by oral route at bedtime for 90 days. 2024 active Not Available Not Available [...] Available Not Available Not Available valacyclov ir 1 gram tablet TAKE 2 TABLETS BY MOUTH EVERY 12 HOURS active Not Available Not Available No t Available donepezil 10 mg tablet Take 1 [...] EXCEED 2 DOSES IN A 24 HOUR PERIOD, UNLESS OTHERWIS E INSTRUCT ED BY YOUR PHYSICIA N active Not Available Not Available No t [...] completed Not Available Not Available Not Available nitrofuran toin macrocryst al 100 mg capsule TAKE 1 CAPSULE BY MOUTH TWICE DAILY WITH FOOD OR MILK active Not Available Not Available No t Available promethazi ne 25 mg/mL injection solution [...] Not Available No t Available levofloxac in 750 mg tablet TAKE 1 TABLET BY MOUTH [...] Not Available Not Available No t Available cefdinir 300 mg capsule TAKE ONE CAPSULE BY MOUTH TWICE DAILY FOR 10 DAYS -- FINISH ALL MEDICINE -- active Not Available Not Available No t [...] Available Not Available Not Available aspirin 81mg 06/07 /2023 completed Not Available Not Available Not Available [...] Updated DateTime 12/27/2024 162.56 cm 24.7 kg/m2 90801.58 g 98.4 [degF] 97 /min Ernestine [facility] - [place] & [place] 14:16:54 Social History Question Answer Notes LastModified by [employer] Details LastModified Time Tobacco Smoking Status Former Smoker quit 3 years ago Araceli Velasquez [email or web address], [facility] & [place] 09/06/2023 09:49:34 Do You Have An Advance Directive? No [email or web address] Information not available 08/14/2022 Are You Blind Or Do You Have Difficulty Seeing? No [email or web address] Information not available 08/14/2022 What Was The Date Of Your Most Recent Tobacco Screening? 08/10/2022 Information not available 08/14/2022 Are You Passively Exposed To Smoke? No [email or web address] Information not available 08/14/2022 How Much Tobacco Do You Smoke? No Information not available 08/14/2022 Sex: Male Functional Status Question Answer Note LastModified by [employer] Details LastModified Time Do you use any illicit or recreational drugs? No [email or web address] Information not available 08/10/2022 What is your level of alcohol consumption? None [email or web address] Information not available 08/10/2022 Do you or have you ever used smokeless tobacco? Never used [email or web address] tobacco Information not available 08/14/2022 What is your exercise level? None [email or web address] Information not available 08/14/2022 Mental Status Question Answer Note LastModified by Organization D etails LastModified Time Do you feel stressed (tense, restless, nervous, or anxious, or unable to sleep at night)? [id number] [email or web address] Information not available 08/14/2022 Family History Relationship Description Onset Age of this Age Resolved Age Notes LastModified by Organization Details LastModified Time Father Obesity [email or web address] Not availa ble 08/10/2022 08:30:50 Father Diabetes mellitus [email or web address] Not available 2024 14:11:10 Father Hypertensive disorder [email or web address] Not available 08:31:23 Father Heart disease [email or web address] Not available 08:31:48 Father Cerebrovascu lar accident [email or web address] Not available 08/10/2022 08:32:04 Father Hypercholest erolemia [email or web address] Not available 08:32:27 Father Asthma [email or web address] Not available 12/27/2024 14:11:10 Father Allergy pt. added direct ly (08/10) [email or web address] Not available 08/10/2022 13:04:20 Father Disorder of endocrine system pt. added direct ly (08/10) [email or web address] Not available 08/10/2022 13:07:54 Maternal Grandmother Obesity [email or web address] Not available 0 08/10/2022 08:30:50 Maternal Grandmother Hypertensive disorder [email or web address] Not available 08:31:23 Maternal Grandmother Heart disease [email or web address] Not available 08:31:49 Mother Hypertensive disorder [email or web address] Not available 08:31:23 Mother Heart disease [email or web address] Not available 08:31:48 Mother Cerebrovascu lar accident [email or web address] Not available 08/10/2022 08:32:04 Mother Hypercholest erolemia [email or web address] Not available 08:32:27 Mother Allergy pt. added direct ly (08/10) [email or web address] Not available 08/10/2022 13:04:20 Brother Hypertensive disorder [email or web address] Not available 08:31:23 Brother Heart disease [email or web address] Not available 08:31:49 Brother Hypercholest erolemia [email or web address] Not available 08:32:27 Brother Cerebrovascu lar accident pt. added direct ly (09/03) [email or web address] Not available 09/03/2023 11:07:40 Sister Hypertensive disorder [email or web address] Not available 08:31:23 Sister Hypercholest erolemia [email or web address] Not available 08:32:27 Maternal Grandfather Heart disease [email or web address] Not available 08:31:49 Maternal Uncle Allergy pt. added direct ly (08/10) [email or web address] Not available 08/10/2022 13:04:20 Paternal Grandmother Obesity pt. added direct ly (01/30 /23) [email or web address] Not available 08/10/2022 13:08:19 Medical History Condition Response Other Y Gout N Kidney Stones Y COPD Y Depression Y Spine Problems Y Obstructive Sleep Apnea Y Anxiety Disorder Y Obesity Y Arthritis Y Headaches Y Constipation Y Back Problems Y Asthma Y High Cholesterol Y Liver Disease Y Psychiatric/Mental Health Condition Y Osteoporosis/Osteopenia Y Heart Attack ([place]) Y Reflux/GERD N Heart Disease Y Hypertension [...] virus, quadrivalent, preservative 7 completed Not Available [facility] 01/01/2023 16:06:44 Influenza, recombinant, quadrivalent, PF 1 completed Not Available [facility] 01/01/2023 16:06:44 Influenza, recombinant, quadrivalent, PF 0 completed Not Available [facility] 01/01/2023 16:06:44 zoster recombinant 1 completed Not Available [facility] 01/01/2023 16:06:44 zoster recombinant 1 completed Not Available [facility] 01/01/2023 16:06:44 MMR 6 completed Not Available [facility] 01/01/2023 16:06:44 COVID-19, mRNA, LNP-S, PF, 100 mcg/0.5mL dose or 50 mcg/0.25mL dose 1 completed Not Available [facility] 01/01/2023 16:06:44 COVID-19, mRNA, LNP-S, PF, 100 mcg/0.5mL dose or 50 mcg/0.25mL dose 1 completed Not Available [facility] 01/01/2023 16:06:44 COVID-19, mRNA, LNP-S, PF, 100 mcg/0.5mL dose or 50 mcg/0.25mL dose 1 completed Not Available [facility] 01/01/2023 16:06:44 Pneumococcal conjugate PCV20, polysaccharide XFV650 conjugate, adjuvant, PF 2 completed Not Available [facility] 01/01/2023 16:06:44 pneumococcal polysaccharide PPV23 1 completed Not Available [facility] 01/01/2023 16:06:44 pneumococcal polysaccharide PPV23 7 completed Not Available [facility] 01/01/2023 16:06:44 Influenza, split virus, quadrivalent, PF 9 completed Not Available [facility] 01/01/2023 16:06:44 Influenza, split virus, quadrivalent, PF 2 completed Not Available [facility] 01/01/2023 16:06:44 Influenza, split virus, quadrivalent, PF 8 completed Not Available [facility] 01/01/2023 16:06:44 influenza, unspecified formulation 4 completed Kary Rust null, [place] [facility] [facility] & [place] 08/08/2024 13:51:39 Respiratory syncytial virus (RSV) MAB, unspecified 4 completed Araceli Velasquez null, [place] [facility] [facility] & [place] 06/06/2024 09:21:15 Influenza, high-dose, quadrivalent, PF 3 completed Kary Rust null, [place] [facility] [facility] & [place] 08/08/2024 13:51:39 RSV, recombinant, protein subunit RSVpreF, adjuvant reconstituted, 0.5 mL, PF 4 completed Kary Rust null, [place] [facility] [facility] & [place] 08/08/2024 13:51:39 Influenza, high-dose, trivalent, PF 4 completed Kary Rust null, [place] [facility] [place] & [place] 08/08/2024 13:51:39 Past Encounters Encounter ID Performer Location Encounter Start Date Encounter Closed Date Diagnosis/Indication Diagnosis SNOMED-CT Code Diagnosis ICD10 Code Diagnosis Note [id number] Aden Husain, DNP, DEPOSITION OPERATOR, ROAST MASTER-C [facility] [address] [place] [address] [address] [place] [address] 12/08/2024 08:48:35 12/08/2024 09:28:10 History of bariatric surgical procedure 651088089 Z98.84 Intentiona l weight loss 272209717 R63.8 History of gastrectomy 210719708 Z90.3 Advised qid intake 50% protein 3248-4918 calories/d y less than 100 carbs/dy Long [...] to correct any vitamin deficienci es. At [facility] ed risk of nutritional deficit 280782403 Z91.89 Dyslipidemia 573551795 E 78.5 Hypertensive disorder 38 052323 I10 Overweight 485557361 E66 .3 [id number] Ernesto Amezcua PA-C [facility] [address] [facility] [place] [address] [place] [address] 12/27/2024 14:10:09 12/27/2024 14:38:18 Liver enzymes level above reference range 170709047 R74.01 Metabolic dysfunction-associate d steatohepatitis 241544409 K75.81 Gastroesop hageal reflux disease without esophagitis 095940402 K21.9 Chronic id iopathic constipation 69674799 K59.04 History of colonoscopy 8956054406 09 Z98.890 Health Concerns Section Related Observation LastModified by Organization Detai ls LastModified Time None Recorded Concern Status LastModified by Organization Details LastModified Time None Recorded Payers Encounter Date Sequence Insurance Name Policy Number Policy Acosta Covered Member ID Acosta Member ID Guarantor Name 12/27/2024 2 [employer] (MEDICARE SUPPLEMENT) Maria Isabel Doran [id number] Maria Isabel Doran 12/27/2024 1 [place] Maria Isabel Doran [id number] Maria Isabel Doran Notes Date Note Type Note Provider Name and Address Organization Details Recorded Time 12/27/2024 text/html ROS as noted in the HPI PREVIOUS (06/26/24): Ms. Doran is a very [...] overall at this time. Ernesto Amezcua PA-C [address], [place], [address], [facility] - [facility] [place] - [place] & [place] 12/27/2024 14:41:34 OBGyn Episode No OBEpisode recorded.
--- OUTSIDE RECORDS SUMMARY | 2025-02-01 10:40 | XMS_ITS | Data Portability ---
Author Organization [place] - [facility] [place] [facility] [place] [facility] ADMIN Address [address] [place] [id number] Care Team Providers Care Patroller Name Role Phone GENET BRUCE Primary Care Provider [phone] Assessment Encounter Date Assessment Date Assessment LastModified [...] for screening. f/u 6 months and PRN [email or web address] Not available 06/26/2024 13:49:07 12/27/2024 12/27/2024 69-year-old [...] recommended 04/2029 for screening. f/u 1 month [email or web address] Not available 12/27/2024 14:41:04 Plan of Treatment Reminders Order Date Submit Date Provider Last Modified By Organization Details Last Modified Time Details Appointments Establish ed Visit 15 min 2024 10:45A M Ernesto Amezcua PA-C Not available Not available Not available OV EST 20 2024 10:00A M Aden Husain, CAMMIE, EBD TEACHER, LUMBER STICKER-C Not available Not available Not available Lab CBC w/ auto diff 2024 025 ISAAC [facility], [address], [address], [place], [address], 12/15/2024 14:37:20 CMP, serum or plasma 2024 025 ISAAC [facility], [address], [address], [place], [address], 12/15/2024 14:37:21 TSH + free T4, serum 2024 025 ISAAC [facility], [address], [address], [place], [address], 12/15/2024 14:37:19 HbA1c (hemoglob in A1c), blood 2024 025 ISAAC [facility], [address], [address], [place], [address], 12/15/2024 14:37:24 lipid panel, serum 2024 025 ISAAC [facility], [address], [address], [place], [address], 12/15/2024 14:37:22 copper, serum or plasma 2024 025 ISAAC [facility], [address], [address], [place], [address], 12/15/2024 14:37:29 selenium, quantitat silvino, blood 2024 025 ISAAC [facility], [address], [address], [place], [address], 12/15/2024 14:37:31 zinc, serum or plasma 2024 025 ISAAC [facility], [address], [address], [place], [address], 12/15/2024 14:37:30 iron + TIBC + ferritin, serum 2024 025 ISAAC [facility], [address], [address], [place], [address], 12/15/2024 14:37:18 folate, serum 2024 025 ISAAC [facility], [address], [address], [place], [address], 12/15/2024 14:37:24 vitamin E, serum 2024 025 ISAAC [facility], [address], [address], [place], [address], 12/15/2024 14:37:23 vitamin A (retinol) , serum 2024 025 ISAAC [facility], [address], [address], [place], [address], 12/15/2024 14:37:25 prealbumi n, serum 2024 025 ISAAC [facility], [address], [address], [place], [address], 12/15/2024 14:37:30 thiamine, QN, blood 2024 025 ISAAC [facility], [address], [address], [place], [address], 12/15/2024 14:37:27 methylmal jareth, QN, serum or plasma 2024 025 ISAAC [facility], [address], [address], [place], [address], 12/15/2024 14:37:28 vitamin D, 25-hydrox y, total, serum 2024 025 ISAAC [facility], [address], [address], [place], [address], 12/15/2024 14:37:26 CMP, serum or plasma 2023 024 [email or web address] 4 [facility] (Registration ), [address], [place], [address], 07/07/2024 10:22:50 CBC [address] (Registration ), [address], [place], [address], 07/07/2024 10:22:50 PT/INR [address] (Registration ), [address], [place], [address], 07/07/2024 10:22:50 liver fibrosis score, calculate d by ELF, serum or plasma [address] (Registration ), [address] [place] [address], [place], [address], 07/07/2024 10:22:50 selenium, quantitat silvino, blood 2023 024 [email or web address] [facility], [address], [address], [place], [address], 07/06/2024 13:36:28 CMP, serum or plasma 2023 024 [email or web address] [facility], [address], [address], [place], [address], 07/06/2024 13:36:30 CBC w/ auto diff 2023 024 [email or web address] [facility], [address], [address], [place], [address], 07/06/2024 13:36:29 HbA1c (hemoglob in A1c), blood 2023 024 [email or web address] [facility], [address], [address], [place], [address], 07/06/2024 13:36:30 TSH + free T4, serum 2023 [email or web address] [facility], [address], [address], [place], [address], 07/06/2024 13:36:30 lipid panel, serum 2023 [email or web address] [facility], [address], [address], [place], [address], 07/06/2024 13:36:30 copper, serum or plasma 2023 [email or web address] [facility], [address], [address], [place], [address], 07/06/2024 13:36:28 zinc, serum or plasma 2023 [email or web address] [facility], [address], [address], [place], [address], 07/06/2024 13:36:28 iron + TIBC + ferritin, serum 2023 [facility], [address], [address], [place], [address], 07/06/2024 13:36:28 folate, serum 2023 [email or web address] [facility], [address], [address], [place], [address], 07/06/2024 13:36:29 vitamin E, serum 2023 [email or web address] [facility], [address], [address], [place], [address], 07/06/2024 13:36:29 vitamin A (retinol) , serum 2023 [email or web address] [facility], [address], [address], [place], [address], 07/06/2024 13:36:29 prealbumi n, serum 2023 024 [email or web address] [facility], [address], [address], [place], [address], 07/06/2024 13:36:29 thiamine, QN, blood 2023 024 [email or web address] [facility], [address], [address], [place], [address], 07/06/2024 13:36:29 methylmal jareth, QN, serum or plasma 2023 024 [email or web address] [facility], [address], [address], [place], [address], 07/06/2024 13:36:29 vitamin D, 25-hydrox y, total, serum 2023 [email or web address] [facility], [address], [address], [place], [address], 07/06/2024 13:36:30 selenium, quantitat silvino, blood 2023 024 [facility], [address], [address], [place], [address], 03/14/2024 10:57:17 HbA1c (hemoglob in A1c), blood 2023 024 [email or web address] [facility], [address], [address], [place], [address], 03/14/2024 10:57:17 iron + TIBC + ferritin, serum 2023 024 [email or web address] [facility], [address], [address], [place], [address], 03/14/2024 10:57:17 vitamin D, 25-hydrox y, total, serum 2023 [email or web address] [facility], [address], [address], [place], [address], 03/14/2024 10:57:18 vitamin A (retinol) , serum 2023 [email or web address] [facility], [address], [address], [place], [address], 03/14/2024 10:57:18 thiamine, QN, blood 2023 [email or web address] [facility], [address], [address], [place], [address], 03/14/2024 10:57:19 methylmal jareth, QN, serum or plasma 2023 [email or web address] [facility], [address], [address], [place], [address], 03/14/2024 10:57:19 copper, serum or plasma 2023 [facility], [address], [address], [place], [address], 03/14/2024 10:57:16 zinc, serum or plasma 2023 [email or web address] [facility], [address], [address], [place], [address], 03/14/2024 10:57:17 CBC w/ auto diff 2023 [email or web address] [facility], [address], [address], [place], [address], 03/14/2024 10:57:17 CMP, serum or plasma 2023 024 [email or web address] [facility], [address], [address], [place], [address], 03/14/2024 10:57:17 folate, serum 2023 024 [email or web address] [facility], [address], [address], [place], [address], 03/14/2024 10:57:17 vitamin E, serum 2023 024 [email or web address] [facility], [address], [address], [place], [address], 03/14/2024 10:57:18 TSH + free T4, serum 2023 024 [email or web address] [facility], [address], [address], [place], [address], 03/14/2024 10:57:18 prealbumi n, serum 2023 024 [email or web address] [facility], [address], [address], [place], [address], 03/14/2024 10:57:18 lipid panel, serum 2023 024 [facility], [address], [address], [place], [address], 03/14/2024 10:57:19 Referral None recorded. Procedures biopsy, liver (PROC) - CT or US guidance, depending on radiologi st's preferenc e 2024 025 [email or web address] 3 [facility], [address] [facility], [place], [address], 02/01/2025 09:18:22 Surgeries None recorded. Imaging None recorded. Medication Orders Motegrity 2 mg tablet 2023 024 [email or web address] [facility], [address], [place] [address], [place], [place], [id number], 12/08/2024 08:57:40 Patient TargetsNo targets recorded. Patient InstructionsNo instructions recorded. Reason for Referral None Reported. Results Created Date Observation Date Name Description Value Unit Range Abnormal Flag Note LastModifiedBy Organization Detail LastModifiedTime 03/06/2003/07/2024 FE+TI BC+FE R iron bind.cap.(TI BC) 333 ug/dL 250-45 0 normal Not Available [facility] ([facility]) [address] [place], [address], 03/14/2024 18:37:18 03/06/20 24 03/07/2024 FE+TI BC+FE R UIBC 231 ug/dL 118-36 9 normal Not Available [facility] ([facility]) [address] [place], [address], 03/14/2024 18:37:18 03/06/20 24 03/07/2024 FE+TI BC+FE R iron 102 ug/dL 27-139 normal Not Available [facility] ([facility]) [address] [place], [address], 03/14/2024 18:37:18 03/06/20 24 03/07/2024 FE+TI BC+FE R iron saturation 31 % 15-55 normal Not Available [facility] ([facility]) [address] [place], [address], 03/14/2024 18:37:18 03/06/20 24 03/07/2024 FE+TI BC+FE R ferritin 29 NG/mL 15-150 normal Not Available [facility] ([facility]) [address] [place], [address], 03/14/2024 18:37:18 03/06/2003/07/2024 TSH+F REE T4 TSH 1.870 uIU/m L 0.450- 4.500 normal Not Available [facility] ([facility]) [address] [place], [address], 03/14/2024 18:37:18 03/06/20 24 03/07/2024 TSH+F REE T4 T4,free(dire ct) 0.77 NG/dL 0.82-1 .77 below low normal Not Available [facility] ([facility]) [address] [facility], [place], [address], 03/14/2024 18:37:18 03/06/20 24 03/07/2024 CBC WITH DIFFE RENTI AL/PL ATELE T WBC 5.0 x10e3 /uL 3.4-10 .8 normal Not Available [facility] ([facility]) [address] [facility], [place], [address], 03/14/2024 18:37:18 03/06/20 24 03/07/2024 CBC WITH DIFFE RENTI AL/PL ATELE T RBC 4.62 x10e6 /uL 3.77-5 .28 normal Not Available [facility] ([facility]) [address] [place], [address], 03/14/2024 18:37:18 03/06/20 24 03/07/2024 CBC WITH DIFFE RENTI AL/PL ATELE T hemoglobin 14.1 g/dL 11.1-1 5.9 normal Not Available [facility] ([facility]) [address] [place], [address], 03/14/2024 18:37:18 03/06/20 24 03/07/2024 CBC WITH DIFFE RENTI AL/PL ATELE T hematocrit 44.3 % 34.0-4 6.6 normal Not Available [facility] ([facility]) [address] [place], [address], 03/14/2024 18:37:18 03/06/20 24 03/07/2024 CBC WITH DIFFE RENTI AL/PL ATELE T MCV 96 fL 79-97 normal Not Available [facility] ([facility]) [address] [place], [address], 03/14/2024 18:37:18 03/06/20 24 03/07/2024 CBC WITH DIFFE RENTI AL/PL ATELE T MCH 30.5 pg 26.6-3 3.0 normal Not Available [facility] ([facility]) [address] [facility], [place], [address], 03/14/2024 18:37:18 03/06/20 24 03/07/2024 CBC WITH DIFFE RENTI AL/PL ATELE T MCHC 31.8 g/dL 31.5-3 5.7 normal Not Available [facility] ([facility]) [address] [place], [address], 03/14/2024 18:37:18 03/06/20 24 03/07/2024 CBC WITH DIFFE RENTI AL/PL ATELE T RDW 12.4 % 11.7-1 5.4 Not Available [facility] ([facility]) [address] [place], [address], 03/14/2024 18:37:18 03/06/20 24 03/07/2024 CBC WITH DIFFE RENTI AL/PL ATELE T platelets 232 x10e3 /uL 150-45 0 normal Not Available [facility] ([facility]) [address] [place], [address], 03/14/2024 18:37:18 03/06/20 24 03/07/2024 CBC WITH DIFFE RENTI AL/PL ATELE T neutrophils 53 % not estab. normal Not Available [facility] ([facility]) [address] [place], [address], 03/14/2024 18:37:18 03/06/20 24 03/07/2024 CBC WITH DIFFE RENTI AL/PL ATELE T lymphs 29 % not estab. normal Not Available [facility] ([facility]) [address] [facility], [place], [address], 03/14/2024 18:37:18 03/06/20 24 03/07/2024 CBC WITH DIFFE RENTI AL/PL ATELE T monocytes 12 % not estab. normal Not Available [facility] ([facility]) [address] [facility], [place], [address], 03/14/2024 18:37:18 03/06/20 24 03/07/2024 CBC WITH DIFFE RENTI AL/PL ATELE T eos 5 % not estab. normal Not Available [facility] ([facility]) [address] [facility], [place], [address], 03/14/2024 18:37:18 03/06/20 24 03/07/2024 CBC WITH DIFFE RENTI AL/PL ATELE T basos 1 % not estab. normal Not Available [facility] ([facility]) [address] [place], [address], 03/14/2024 18:37:18 03/06/20 24 03/07/2024 CBC WITH DIFFE RENTI AL/PL ATELE T immature cells LUMBER STICKER Not Available [facility] ([facility]) [address] [place], [address], 03/14/2024 18:37:18 03/06/20 24 03/07/2024 CBC WITH DIFFE RENTI AL/PL ATELE T neutrophils (absolute) 2.6 x10e3 /uL 1.4-7. 0 normal Not Available [facility] ([facility]) [address] [place], [address], 03/14/2024 18:37:18 03/06/20 24 03/07/2024 CBC WITH DIFFE RENTI AL/PL ATELE T lymphs (absolute) 1.5 x10e3 /uL 0.7-3. 1 normal Not Available [facility] ([facility]) [address] [facility], [place], [address], 03/14/2024 18:37:18 03/06/20 24 03/07/2024 CBC WITH DIFFE RENTI AL/PL ATELE T monocytes(ab solute) 0.6 x10e3 /uL 0.1-0. 9 normal Not Available [facility] ([facility]) [address] [facility], [place], [address], 03/14/2024 18:37:18 03/06/20 24 03/07/2024 CBC WITH DIFFE RENTI AL/PL ATELE T eos (absolute) 0.3 x10e3 /uL 0.0-0. 4 normal Not Available [facility] ([facility]) [address] [facility], [place], [address], 03/14/2024 18:37:18 03/06/20 24 03/07/2024 CBC WITH DIFFE RENTI AL/PL ATELE T baso (absolute) 0.1 x10e3 /uL 0.0-0. 2 normal Not Available [facility] ([facility]) [address] [facility], [place], [address], 03/14/2024 18:37:18 03/06/20 24 03/07/2024 CBC WITH DIFFE RENTI AL/PL ATELE T immature granulocytes 0 % not estab. Not Available [facility] ([facility]) [address] [place], [address], 03/14/2024 18:37:18 03/06/20 24 03/07/2024 CBC WITH DIFFE RENTI AL/PL ATELE T immature grans (abs) 0.0 x10e3 /uL 0.0-0. 1 Not Available [facility] ([facility]) [address] [facility], [place], [address], 03/14/2024 18:37:18 03/06/20 24 03/07/2024 CBC WITH DIFFE RENTI AL/PL ATELE T NRBC LUMBER STICKER Not Available [facility] ([facility]) [address] [facility] [place], [address], 03/14/2024 18:37:18 03/06/20 24 03/07/2024 CBC WITH DIFFE RENTI AL/PL ATELE T hematology comments: LUMBER STICKER Not Available [facility] ([facility]) [address] [facility], [place], [address], 03/14/2024 18:37:18 03/06/20 24 03/07/2024 COMP. METAB OLIC PANEL (14) glucose 93 mg/dL 70-99 normal Not Available [facility] ([facility]) [address] [facility] [place], [address], 03/14/2024 18:37:19 03/06/20 24 03/07/2024 COMP. METAB OLIC PANEL (14) BUN 32 mg/dL 8-27 above high normal Not Available [facility] ([facility]) [address] [facility] [place], [address], 03/14/2024 18:37:19 03/06/20 24 03/07/2024 COMP. METAB OLIC PANEL (14) creatinine 0.91 mg/dL 0.57-1 .00 normal Not Available [facility] ([facility]) [address] [place], [address], 03/14/2024 18:37:19 03/06/20 24 03/07/2024 COMP. METAB OLIC PANEL (14) eGFR 70 mL/mi n/1.7 3 >59 normal Not Available [facility] ([facility]) [address] [facility] [place], [address], 03/14/2024 18:37:19 03/06/20 24 03/07/2024 COMP. METAB OLIC PANEL (14) BUN/creatini ne ratio 35 12-28 above high normal Not Available [facility] ([facility]) [address] [place], [address], 03/14/2024 18:37:19 03/06/20 24 03/07/2024 COMP. METAB OLIC PANEL (14) sodium 138 mmol/ L 134-14 4 normal Not Available [facility] ([facility]) [address] [place], [address], 03/14/2024 18:37:19 03/06/20 24 03/07/2024 COMP. METAB OLIC PANEL (14) potassium 4.2 mmol/ L 3.5-5. 2 normal Not Available [facility] ([facility]) [address] [place], [address], 03/14/2024 18:37:19 03/06/20 24 03/07/2024 COMP. METAB OLIC PANEL (14) chloride 101 mmol/ L 96-106 normal Not Available [facility] ([facility]) [address] [place], [address], 03/14/2024 18:37:19 03/06/20 24 03/07/2024 COMP. METAB OLIC PANEL (14) carbon dioxide, total 24 mmol/ L 20-29 normal Not Available [facility] ([facility]) [address] [place], [address], 03/14/2024 18:37:19 03/06/20 24 03/07/2024 COMP. METAB OLIC PANEL (14) calcium 9.4 mg/dL 8.7-10 .3 normal Not Available [facility] ([facility]) [address] [place], [address], 03/14/2024 18:37:19 03/06/20 24 03/07/2024 COMP. METAB OLIC PANEL (14) protein, total 6.3 g/dL 6.0-8. 5 normal Not Available [facility] ([facility]) [address] [place], [address], 03/14/2024 18:37:19 03/06/20 24 03/07/2024 COMP. METAB OLIC PANEL (14) albumin 4.1 g/dL 3.9-4. 9 normal Not Available [facility] ([facility]) [address] [facility] [place], [address], 03/14/2024 18:37:19 03/06/20 24 03/07/2024 COMP. METAB OLIC PANEL (14) globulin, total 2.2 g/dL 1.5-4. 5 Not Available [facility] ([facility]) [address] [facility] [place], [address], 03/14/2024 18:37:19 03/06/20 24 03/07/2024 COMP. METAB OLIC PANEL (14) bilirubin, total 0.3 mg/dL 0.0-1. 2 normal Not Available [facility] ([facility]) [address] [facility] [place], [address], 03/14/2024 18:37:19 03/06/20 24 03/07/2024 COMP. METAB OLIC PANEL (14) alkaline phosphatase 80 IU/L 44-121 normal Not Available [facility] ([facility]) [address] [facility] [place], [address], 03/14/2024 18:37:19 03/06/20 24 03/07/2024 COMP. METAB OLIC PANEL (14) AST (SGOT) 47 IU/L 0-40 above high normal Not Available [facility] ([facility]) [address] [facility] [place], [address], 03/14/2024 18:37:19 03/06/20 24 03/07/2024 COMP. METAB OLIC PANEL (14) ALT (SGPT) 58 IU/L 0-32 above high normal Not Available [facility] ([facility]) [address] [facility] [place], [address], 03/14/2024 18:37:19 03/06/20 24 03/07/2024 LIPID PANEL cholesterol, total 119 mg/dL 100-19 9 normal Not Available [facility] ([facility]) [address] [place], [address], 03/14/2024 18:37:19 03/06/20 24 03/07/2024 LIPID PANEL triglyceride s 75 mg/dL 0-149 normal Not Available [facility] ([facility]) [address] [place], [address], 03/14/2024 18:37:19 03/06/20 24 03/07/2024 LIPID PANEL HDL cholesterol 51 mg/dL >39 normal Not Available [facility] ([facility]) [address] [place], [address], 03/14/2024 18:37:19 03/06/20 24 03/07/2024 LIPID PANEL VLDL cholesterol apurva 15 mg/dL 5-40 Not Available [facility] ([facility]) [address] [place], [address], 03/14/2024 18:37:19 03/06/20 24 03/07/2024 LIPID PANEL LDL chol calc ([facility]) 53 mg/dL 0-99 Not Available [facility] ([facility]) [address] [place], [address], 03/14/2024 18:37:19 03/06/20 24 03/07/2024 LIPID PANEL LDL calc comment: LUMBER STICKER Not Available [facility] ([facility]) [address] [place], [address], 03/14/2024 18:37:19 03/06/20 24 03/14/2024 VITAM IN E vitamin E(alpha tocopherol) 12.2 mg/L 9.0-29 .0 Not Available [facility] ([facility]) [address] [place], [address], 03/14/2024 18:37:20 03/06/2003/14/2024 VITAM IN E vitamin [...] in E defic ient. Not Available [facility] ([facility]) [address] [facility], [place], [address], 03/14/2024 18:37:20 03/06/2003/07/2024 HEMOG LOBIN A1C hemoglobin A1C 5.4 % 4.8-5. 6 normal Predi abete s: 5.7 - 6.4 Diabe inessa: >6.4 Glyce amauri contr ol for adult s with diabe inessa: <7.0 Not Available [facility] ([facility]) [address] [facility], [place], [address], 03/14/2024 18:37:20 03/06/2003/07/2024 FOLAT E (FOLI C ACID) , SERUM folate (folic acid), serum >20.0 NG/mL >3.0 A serum folat e yanet ntrat ion of less than 3.1 ng/mL is consi dered to repre sent clini apurva defic iency . Not Available [facility] ([facility]) [address] [facility], [place], [address], 03/14/2024 18:37:21 03/06/2003/14/2024 VITAM IN A, SERUM [...] Drug Admin istra tion. Not Available [facility] ([facility]) [address] [facility], [place], [address], 03/14/2024 18:37:21 03/06/20 24 03/07/2024 VITAM IN [...] um and D. Joanna roque [place]: [facility] Press . 2. Junie lugo MF, Garrick wallace [place], Valeria off-F errar i TURCIOS, et al. Evalu ation , treat ment, and preve ntion of vitam in D defic iency : an Endoc rine Socie ty clini apurva pract ice guide line. JCEM. 2010; 96(7) :1911 -30. Not Available [facility] ([facility]) [address] [facility], [place], [address], 03/14/2024 18:37:21 03/06/20 24 03/12/2024 VITAM IN B1 (THIA MINE) , BLOOD vit. B1, whole blood 290.9 nmol/ L 66.5-2 00.0 above high normal Not Available [facility] ([facility]) [address] [facility], [place], [address], 03/14/2024 18:37:22 03/06/20 24 03/12/2024 METHY LMALO ALICIA ACID, SERUM methylmaloni c acid, serum 360 nmol/ L 0-378 Not Available [facility] ([facility]) [address] [facility], [place], [address], 03/14/2024 18:37:22 03/06/20 24 03/08/2024 COPPE R, SERUM OR PLASM A copper, serum or plasma 117 ug/dL 80-158 Detec tion Limit = 5 Not Available [facility] ([facility]) [address] [facility], [place], [address], 03/14/2024 18:37:23 03/06/20 24 03/08/2024 ZINC, PLASM A OR SERUM zinc, plasma or serum 87 ug/dL 44-115 normal Detec tion Limit = 5 Not Available [facility] ([facility]) [address] [facility], [place], [address], 03/14/2024 18:37:23 03/06/20 24 03/07/2024 PREAL BUMIN prealbumin 20 mg/dL 10-36 Not Available [facility] ([facility]) [address] [facility], [place], [address], 03/14/2024 18:37:23 03/06/20 24 03/08/2024 SELEN IUM, BLOOD selenium, blood 168 ug/L 100-34 0 Detec tion Limit = 10 Not Available [facility] ([facility]) [address] [facility], [place], [address], 03/14/2024 18:37:24 07/15/19 25 07/15/2024 CBC NO DIFF (HEMO GRAM) WBC 5.9 K/uL 4.0-10 .5 Not Available [facility] ([facility]) [address], [place], [address], 07/15/2024 09:51:52 07/15/19 25 07/15/2024 CBC NO DIFF (HEMO GRAM) RBC 5.0 M/mm3 4.2-6. 4 Not Available [facility] ([facility]) [address], [place], [address], 07/15/2024 09:51:52 07/15/19 25 07/15/2024 CBC NO DIFF (HEMO GRAM) HGB 14.8 gm/dL 12.5-1 6.0 Not Available [facility] ([facility]) [address], [place], [address], 07/15/2024 09:51:52 07/15/19 25 07/15/2024 CBC NO DIFF (HEMO GRAM) HCT 44.8 % 37.0-4 7.0 Not Available [facility] ([facility]) [address], [place], [address], 07/15/2024 09:51:52 07/15/19 25 07/15/2024 CBC NO DIFF (HEMO GRAM) MCV 89.4 fL 78-100 Not Available [facility] ([facility]) [address] [facility], [place], [address], 07/15/2024 09:51:52 07/15/19 25 07/15/2024 CBC NO DIFF (HEMO GRAM) MCH 29.5 pg 27-31 Not Available [facility] ([facility]) [address], [place], [address], 07/15/2024 09:51:52 07/15/19 25 07/15/2024 CBC NO DIFF (HEMO GRAM) MCHC 33.0 g/dL 32-36 Not Available [facility] ([facility]) [address], [place], [address], 07/15/2024 09:51:52 07/15/19 25 07/15/2024 CBC NO DIFF (HEMO GRAM) RDW 14.9 % 11.5-1 4.0 high Not Available [facility] ([facility]) [address] , [place], [address], 07/15/2024 09:51:52 07/15/19 25 07/15/2024 CBC NO DIFF (HEMO GRAM) platelet count 233 K/uL 150-45 0 Not Available [facility] ([facility]) [address] , [place], [address], 07/15/2024 09:51:52 07/15/19 25 07/15/2024 CBC NO DIFF (HEMO GRAM) MPV 8.9 fL 6-9.5 Not Available [facility] ([facility]) [address] , [place], [address], 07/15/2024 09:51:52 07/15/19 25 07/15/2024 CBC NO DIFF (HEMO GRAM) manual differential NO Not Available [facility] ([facility]) [address] , [place], [address], 07/15/2024 09:51:52 07/15/1907/15/2024 PT (PROT HROMB IN TIME) W INR prothrombin time 10.4 secon ds 9.3-11 .4 Not Available [facility] ([facility]) [address] , [place], [address], 07/15/2024 10:13:39 07/15/19 25 07/15/2024 PT (PROT [...] Mecha nical Heart Valve s Not Available [facility] ([facility]) [address] , [place], [address], 07/15/2024 10:13:39 07/15/19 25 07/15/2024 COMP METAB OLIC PANEL sodium 136 mmol/ L 136-14 5 Not Available [facility] ([facility]) [address] , [place], [address], 07/15/2024 10:18:53 07/15/19 25 07/15/2024 COMP METAB OLIC PANEL potassium 4.6 mmol/ L 3.6-5. 0 Not Available [facility] ([facility]) [address] , [place], [address], 07/15/2024 10:18:53 07/15/19 25 07/15/2024 COMP METAB OLIC PANEL chloride 101 mmol/ L 98-107 Not Available [facility] ([facility]) [address] , [place], [address], 07/15/2024 10:18:53 07/15/19 25 07/15/2024 COMP METAB OLIC PANEL carbon dioxide 29.4 mmol/ L 21.0-3 2.0 Not Available [facility] ([facility]) [address] , [place], [address], 07/15/2024 10:18:53 07/15/19 25 07/15/2024 COMP METAB OLIC PANEL anion gap 10.2 Not Available [facility] ([facility]) [address] , [place], [address], 07/15/2024 10:18:53 07/15/19 25 07/15/2024 COMP METAB OLIC PANEL glucose 98 mg/dL 70-120 Not Available [facility] ([facility]) [address] , [place], [address], 07/15/2024 10:18:53 07/15/19 25 07/15/2024 COMP METAB OLIC PANEL BUN 31 mg/dL 7-18 high Not Available [facility] ([facility]) [address], [place], [address], 07/15/2024 10:18:53 07/15/19 25 07/15/2024 COMP METAB OLIC PANEL creatinine 0.9 mg/dL 0.6-1. 3 Not Available [facility] ([facility]) [address], [place], [address], 07/15/2024 10:18:53 07/15/19 25 07/15/2024 COMP METAB [...] romero ing kiney funct ion. Not Available [facility] ([facility]) [address] , [place], [address], 07/15/2024 10:18:53 07/15/19 25 07/15/2024 COMP METAB OLIC PANEL total protein 7.4 g/dL 6.4-8. 2 Not Available [facility] ([facility]) [address] , [place], [address], 07/15/2024 10:18:53 07/15/19 25 07/15/2024 COMP METAB OLIC PANEL albumin 3.9 g/dL 3.4-5. 0 Not Available [facility] ([facility]) [address] , [place], [address], 07/15/2024 10:18:53 07/15/19 25 07/15/2024 COMP METAB OLIC PANEL globulin 3.5 Not Available [facility] ([facility]) [address], [place], [address], 07/15/2024 10:18:53 07/15/19 25 07/15/2024 COMP METAB OLIC PANEL alb/glob ratio 1.1 0.7-2 Not Available [facility] ([facility]) [address], [place], [address], 07/15/2024 10:18:53 07/15/19 25 07/15/2024 COMP METAB OLIC PANEL calcium 9.4 mg/dL 8.5-10 .5 Not Available [facility] ([facility]) [address], [place], [address], 07/15/2024 10:18:53 07/15/19 25 07/15/2024 COMP METAB OLIC PANEL bilirubin total 0.60 mg/dL 0.10-1 .00 Not Available [facility] ([facility]) [address] , [place], [address], 07/15/2024 10:18:53 07/15/19 25 07/15/2024 COMP METAB OLIC PANEL AST (SGOT) 38 U/L 0-37 high Not Available [facility] ([facility]) [address] , [place], [address], 07/15/2024 10:18:53 07/15/19 25 07/15/2024 COMP METAB OLIC PANEL ALT (SGPT) 66 U/L 0-65 high Not Available [facility] ([facility]) [address] , [place], [address], 07/15/2024 10:18:53 07/15/19 25 07/15/2024 COMP METAB OLIC PANEL alk phosphatase 83 U/L 46-116 Not Available [facility] ([facility]) [address] , [place], [address], 07/15/2024 10:18:53 07/15/19 25 07/18/2024 CISNEROS FIBRO SURE PLUS alpha 2-macroglobu oralia, qn 266 mg/dL 110-27 6 Not Available [facility] ([facility]) [address] [facility], [place], [address], 07/18/2024 06:10:53 07/15/19 25 07/18/2024 CISNEROS FIBRO SURE PLUS haptoglobin 88 mg/dL 37-355 Not Available [facility] ([facility]) [address] [facility], [place], [address], 07/18/2024 06:10:53 07/15/19 25 07/18/2024 CISNEROS FIBRO SURE PLUS apolipoprote in A-1 167 mg/dL 116-20 9 Not Available [facility] ([facility]) [address] [facility], [place], [address], 07/18/2024 06:10:53 07/15/19 25 07/18/2024 CISNEROS FIBRO SURE PLUS bilirubin, total 0.4 mg/dL 0.0-1. 2 Not Available [facility] ([facility]) [address] [place], [address], 07/18/2024 06:10:53 07/15/19 25 07/18/2024 CISNEROS FIBRO SURE PLUS GGT 32 IU/L 0-60 Not Available [facility] ([facility]) [address] [place], [address], 07/18/2024 06:10:53 07/15/19 25 07/18/2024 CISNEROS FIBRO SURE PLUS ALT (SGPT) p5p 63 IU/L 0-40 high Not Available [facility] ([facility]) [address] [place], [address], 07/18/2024 06:10:53 07/15/19 25 07/18/2024 CISNEROS FIBRO SURE PLUS AST (SGOT) p5p 42 IU/L 0-40 high Not Available [facility] ([facility]) [address] [place], [address], 07/18/2024 06:10:53 07/15/1907/18/2024 CISNEROS FIBRO SURE PLUS cholesterol, total 122 mg/dL 100-19 9 Not Available [facility] ([facility]) [address] , [place], [address], 07/18/2024 06:10:53 07/15/1907/18/2024 CISNEROS FIBRO SURE PLUS glucose, serum 102 mg/dL 70-99 high Not Available [facility] ([facility]) [address] , [place], [address], 07/18/2024 06:10:53 07/15/1907/18/2024 CISNEROS FIBRO SURE PLUS triglyceride s 99 mg/dL 0-149 Not Available [facility] ([facility]) [address] , [place], [address], 07/18/2024 06:10:53 07/15/1907/18/2024 CISNEROS FIBRO SURE PLUS fibrosis scoring: Commen [...] Stage F4 - Cirrh osis Not Available [facility] ([facility]) [address] , [place], [address], 07/18/2024 06:10:53 07/15/1907/18/2024 CISNEROS FIBRO SURE PLUS fibrosis stage F1-F2 Not Available [facility] ([facility]) [address] , [place], [address], 07/18/2024 06:10:53 07/15/19 25 07/18/2024 CISNEROS FIBRO SURE PLUS fibrosis score 0.34 0.00-0 .21 high Not Available [facility] ([facility]) [address] [place], [address], 07/18/2024 06:10:53 07/15/19 25 07/18/2024 CISNEROS FIBRO SURE PLUS steatosis score 0.48 0.00-0 .40 high Not Available [facility] ([facility]) [address] [place], [address], 07/18/2024 06:10:53 07/15/1907/18/2024 CISNEROS FIBRO SURE PLUS steatosis grade Commen t S1 - Mild Steat osis (But Clini zuleyka Signi fican t) (5- 33%) Not Available [facility] ([facility]) [address] [place], [address], 07/18/2024 06:10:53 07/15/19 25 07/18/2024 CISNEROS FIBRO SURE PLUS steatosis scoring Commen t . <=0.4 0 = S0 - No Steat osis (<5%) 0.40 - 0.55 = S1 - Mild Steat osis (but Clini zuleyka Signi fican t) (5-33 %) >0.55 = S2S3- Moder ate to Sever e Steat osis (Clin icall y Signi fican t) (34-1 00%) Not Available [facility] ([facility]) [address] [place], [address], 07/18/2024 06:10:53 07/15/1907/18/2024 CISNEROS FIBRO SURE PLUS cisneros scoring Commen t . <=0.2 5 = N0 - No CISNEROS/ MASH 0.25 - 0.50 = N1 - Mild CISNEROS/ MASH 0.50 - 0.75 = N2 - Moder ate CISNEROS/ MASH >0.75 = N3 - Sever e CISNEROS/ MASH Not Available [facility] ([facility]) [address] [place], [address], 07/18/2024 06:10:53 07/15/19 25 07/18/2024 CISNEROS FIBRO SURE PLUS cisneros grade Commvince t N3 - Sever e CISNEROS Not Available [facility] ([facility]) [address], [place], [address], 07/18/2024 06:10:53 07/15/19 25 07/18/2024 CISNEROS FIBRO SURE PLUS cisneros score 0.79 0.00-0 .25 high Not Available [facility] ([facility]) [address], [place], [address], 07/18/2024 06:10:53 07/15/19 25 07/18/2024 CISNEROS FIBRO [...] ction s of fibro sis. Not Available [facility] ([facility]) [address], [place], [address], 07/18/2024 06:10:53 07/15/19 25 07/18/2024 CISNEROS FIBRO SURE PLUS methodology: Wanda t . The sachi inessa teste d are perfo rmed by Fibro Sure- Speci fic metho ds. Not inten ded for use with other diagn ostic consi derat ions. Not Available [facility] ([facility]) [address], [place], [address], 07/18/2024 06:10:53 07/15/19 25 07/18/2024 CISNEROS FIBRO SURE PLUS interpretati on: Commen t . Quant itati ve resul ts of 10 bioch emica ls in combi natio n with age and gende r, are sachi zed using a compu tatio nal algor ithm to provi de a quant itati ve surro gate marke r (0.0- 1.0) of liver fibro sis ([place] vir F0-F4 ), hepat ic steat osis [...] fican t NAFLD /MASL D fibro sis ([place] vir F2-F4 ) and 11% had cirrh [...] ficit y of 71%. 3 Not Available [facility] ([facility]) [address], [place], [address], 07/18/2024 06:10:53 07/15/19 25 07/18/2024 CISNEROS FIBRO [...] conta ct custo lester servi ce at [phone]. . Refer ences : . 1. Vito [...] . Perfo rmed at: - [facility] [address] [place] [id number] Lab Direc tor: Massiel ross MD, Phone : [phone] Not Available [facility] ([facility]) [address], [place], [address], 07/18/2024 06:10:53 12/09/19 25 12/09/2024 FE+TI BC+FE R iron bind.cap.(TI BC) 336 ug/dL 250-45 0 normal Not Available [facility] ([facility]) [address] [place], [address], 12/15/2024 14:37:18 12/09/19 25 12/09/2024 FE+TI BC+FE R UIBC 214 ug/dL 118-36 9 normal Not Available [facility] ([facility]) [address] [place], [address], 12/15/2024 14:37:18 12/09/19 25 12/09/2024 FE+TI BC+FE R iron 122 ug/dL 27-139 normal Not Available [facility] ([facility]) [address] [place], [address], 12/15/2024 14:37:18 12/09/19 25 12/09/2024 FE+TI BC+FE R iron saturation 36 % 15-55 normal Not Available [facility] ([facility]) [address] [place], [address], 12/15/2024 14:37:18 12/09/19 25 12/09/2024 FE+TI BC+FE R ferritin 31 NG/mL 15-150 normal Not Available [facility] ([facility]) [address] [place], [address], 12/15/2024 14:37:18 12/09/19 25 12/09/2024 TSH+F REE T4 TSH 2.100 uIU/m L 0.450- 4.500 normal Not Available [facility] ([facility]) [address] [place], [address], 12/15/2024 14:37:19 12/09/19 25 12/09/2024 TSH+F REE T4 T4,free(dire ct) 0.83 NG/dL 0.82-1 .77 normal Not Available [facility] ([facility]) [address] [place], [address], 12/15/2024 14:37:19 12/09/19 25 12/08/2024 CBC WITH DIFFE RENTI AL/PL ATELE T WBC 6.1 x10e3 /uL 3.4-10 .8 normal Not Available [facility] ([facility]) [address] [place], [address], 12/15/2024 14:37:20 12/09/19 25 12/08/2024 CBC WITH DIFFE RENTI AL/PL ATELE T RBC 4.92 x10e6 /uL 3.77-5 .28 normal Not Available [facility] ([facility]) [address] [place], [address], 12/15/2024 14:37:20 12/09/19 25 12/08/2024 CBC WITH DIFFE RENTI AL/PL ATELE T hemoglobin 14.9 g/dL 11.1-1 5.9 normal Not Available [facility] ([facility]) [address] [place], [address], 12/15/2024 14:37:20 12/09/19 25 12/08/2024 CBC WITH DIFFE RENTI AL/PL ATELE T hematocrit 45.6 % 34.0-4 6.6 normal Not Available [facility] ([facility]) [address] [place], [address], 12/15/2024 14:37:20 12/09/19 25 12/08/2024 CBC WITH DIFFE RENTI AL/PL ATELE T MCV 93 fL 79-97 normal Not Available [facility] ([facility]) [address] [place], [address], 12/15/2024 14:37:20 12/09/19 25 12/08/2024 CBC WITH DIFFE RENTI AL/PL ATELE T MCH 30.3 pg 26.6-3 3.0 normal Not Available [facility] ([facility]) [address] [facility], [place], [address], 12/15/2024 14:37:20 12/09/19 25 12/08/2024 CBC WITH DIFFE RENTI AL/PL ATELE T MCHC 32.7 g/dL 31.5-3 5.7 normal Not Available [facility] ([facility]) [address] [facility], [place], [address], 12/15/2024 14:37:20 12/09/19 25 12/08/2024 CBC WITH DIFFE RENTI AL/PL ATELE T RDW 12.5 % 11.7-1 5.4 Not Available [facility] ([facility]) [address] [facility], [place], [address], 12/15/2024 14:37:20 12/09/19 25 12/08/2024 CBC WITH DIFFE RENTI AL/PL ATELE T platelets 234 x10e3 /uL 150-45 0 normal Not Available [facility] ([facility]) [address] [place], [address], 12/15/2024 14:37:20 12/09/19 25 12/08/2024 CBC WITH DIFFE RENTI AL/PL ATELE T neutrophils 56 % not estab. normal Not Available [facility] ([facility]) [address] [place], [address], 12/15/2024 14:37:20 12/09/19 25 12/08/2024 CBC WITH DIFFE RENTI AL/PL ATELE T lymphs 28 % not estab. normal Not Available [facility] ([facility]) [address] [place], [address], 12/15/2024 14:37:20 12/09/19 25 12/08/2024 CBC WITH DIFFE RENTI AL/PL ATELE T monocytes 10 % not estab. normal Not Available [facility] ([facility]) [address] [facility], [place], [address], 12/15/2024 14:37:20 12/09/19 25 12/08/2024 CBC WITH DIFFE RENTI AL/PL ATELE T eos 5 % not estab. normal Not Available [facility] ([facility]) [address] [facility], [place], [address], 12/15/2024 14:37:20 12/09/19 25 12/08/2024 CBC WITH DIFFE RENTI AL/PL ATELE T basos 1 % not estab. normal Not Available [facility] ([facility]) [address] [facility], [place], [address], 12/15/2024 14:37:20 12/09/19 25 12/08/2024 CBC WITH DIFFE RENTI AL/PL ATELE T immature cells LUMBER STICKER Not Available [facility] ([facility]) [address] [place], [address], 12/15/2024 14:37:20 12/09/19 25 12/08/2024 CBC WITH DIFFE RENTI AL/PL ATELE T neutrophils (absolute) 3.5 x10e3 /uL 1.4-7. 0 normal Not Available [facility] ([facility]) [address] [place], [address], 12/15/2024 14:37:20 12/09/19 25 12/08/2024 CBC WITH DIFFE RENTI AL/PL ATELE T lymphs (absolute) 1.7 x10e3 /uL 0.7-3. 1 normal Not Available [facility] ([facility]) [address] [place], [address], 12/15/2024 14:37:20 12/09/19 25 12/08/2024 CBC WITH DIFFE RENTI AL/PL ATELE T monocytes(ab solute) 0.6 x10e3 /uL 0.1-0. 9 normal Not Available [facility] ([facility]) [address] [facility], [place], [address], 12/15/2024 14:37:20 12/09/19 25 12/08/2024 CBC WITH DIFFE RENTI AL/PL ATELE T eos (absolute) 0.3 x10e3 /uL 0.0-0. 4 normal Not Available [facility] ([facility]) [address] [facility], [place], [address], 12/15/2024 14:37:20 12/09/19 25 12/08/2024 CBC WITH DIFFE RENTI AL/PL ATELE T baso (absolute) 0.1 x10e3 /uL 0.0-0. 2 normal Not Available [facility] ([facility]) [address] [facility], [place], [address], 12/15/2024 14:37:20 12/09/19 25 12/08/2024 CBC WITH DIFFE RENTI AL/PL ATELE T immature granulocytes 0 % not estab. Not Available [facility] ([facility]) [address] [facility], [place], [address], 12/15/2024 14:37:20 12/09/19 25 12/08/2024 CBC WITH DIFFE RENTI AL/PL ATELE T immature grans (abs) 0.0 x10e3 /uL 0.0-0. 1 Not Available [facility] ([facility]) [address] [place], [address], 12/15/2024 14:37:20 12/09/19 25 12/08/2024 CBC WITH DIFFE RENTI AL/PL ATELE T NRBC LUMBER STICKER Not Available [facility] ([facility]) [address] [facility], [place], [address], 12/15/2024 14:37:20 12/09/19 25 12/08/2024 CBC WITH DIFFE RENTI AL/PL ATELE T hematology comments: LUMBER STICKER Not Available [facility] ([facility]) [address] [facility], [place], [address], 12/15/2024 14:37:20 12/09/19 25 12/09/2024 COMP. METAB OLIC PANEL (14) glucose 91 mg/dL 70-99 normal Not Available [facility] ([facility]) [address] [facility] [place], [address], 12/15/2024 14:37:21 12/09/19 25 12/09/2024 COMP. METAB OLIC PANEL (14) BUN 33 mg/dL 8-27 above high normal Not Available [facility] ([facility]) [address] [facility] [place], [address], 12/15/2024 14:37:21 12/09/19 25 12/09/2024 COMP. METAB OLIC PANEL (14) creatinine 0.86 mg/dL 0.57-1 .00 normal Not Available [facility] ([facility]) [address] [facility], [place], [address], 12/15/2024 14:37:21 12/09/19 25 12/09/2024 COMP. METAB OLIC PANEL (14) eGFR 74 mL/mi n/1.7 3 >59 normal Not Available [facility] ([facility]) [address] [facility] [place], [address], 12/15/2024 14:37:21 12/09/19 25 12/09/2024 COMP. METAB OLIC PANEL (14) BUN/creatini ne ratio 38 12-28 above high normal Not Available [facility] ([facility]) [address] [facility] [place], [address], 12/15/2024 14:37:21 12/09/19 25 12/09/2024 COMP. METAB OLIC PANEL (14) sodium 139 mmol/ L 134-14 4 normal Not Available [facility] ([facility]) [address] [facility] [place], [address], 12/15/2024 14:37:21 12/09/19 25 12/09/2024 COMP. METAB OLIC PANEL (14) potassium 4.4 mmol/ L 3.5-5. 2 normal Not Available [facility] ([facility]) [address] [place], [address], 12/15/2024 14:37:21 12/09/19 25 12/09/2024 COMP. METAB OLIC PANEL (14) chloride 104 mmol/ L 96-106 normal Not Available [facility] ([facility]) [address] [place], [address], 12/15/2024 14:37:21 12/09/19 25 12/09/2024 COMP. METAB OLIC PANEL (14) carbon dioxide, total 21 mmol/ L 20-29 normal Not Available [facility] ([facility]) [address] [place], [address], 12/15/2024 14:37:21 12/09/19 25 12/09/2024 COMP. METAB OLIC PANEL (14) calcium 9.4 mg/dL 8.7-10 .3 normal Not Available [facility] ([facility]) [address] [place], [address], 12/15/2024 14:37:21 12/09/19 25 12/09/2024 COMP. METAB OLIC PANEL (14) protein, total 6.5 g/dL 6.0-8. 5 normal Not Available [facility] ([facility]) [address] [place], [address], 12/15/2024 14:37:21 12/09/19 25 12/09/2024 COMP. METAB OLIC PANEL (14) albumin 4.2 g/dL 3.9-4. 9 normal Not Available [facility] ([facility]) [address] [place], [address], 12/15/2024 14:37:21 12/09/19 25 12/09/2024 COMP. METAB OLIC PANEL (14) globulin, total 2.3 g/dL 1.5-4. 5 Not Available [facility] ([facility]) [address] [facility] [place], [address], 12/15/2024 14:37:21 12/09/19 25 12/09/2024 COMP. METAB OLIC PANEL (14) bilirubin, total 0.4 mg/dL 0.0-1. 2 normal Not Available [facility] ([facility]) [address] [facility] [place], [address], 12/15/2024 14:37:21 12/09/19 25 12/09/2024 COMP. METAB OLIC PANEL (14) alkaline phosphatase 87 IU/L 44-121 normal Not Available [facility] ([facility]) [address] [facility] [place], [address], 12/15/2024 14:37:21 12/09/19 25 12/09/2024 COMP. METAB OLIC PANEL (14) AST (SGOT) 62 IU/L 0-40 above high normal Not Available [facility] ([facility]) [address] [facility] [place], [address], 12/15/2024 14:37:21 12/09/19 25 12/09/2024 COMP. METAB OLIC PANEL (14) ALT (SGPT) 89 IU/L 0-32 above high normal Not Available [facility] ([facility]) [address] [facility] [place], [address], 12/15/2024 14:37:21 12/09/19 25 12/09/2024 LIPID PANEL cholesterol, total 117 mg/dL 100-19 9 normal Not Available [facility] ([facility]) [address] [facility] [place], [address], 12/15/2024 14:37:22 12/09/19 25 12/09/2024 LIPID PANEL triglyceride s 69 mg/dL 0-149 normal Not Available [facility] ([facility]) [address] [place], [address], 12/15/2024 14:37:22 12/09/19 25 12/09/2024 LIPID PANEL HDL cholesterol 59 mg/dL >39 normal Not Available [facility] ([facility]) [address] [place], [address], 12/15/2024 14:37:22 12/09/19 25 12/09/2024 LIPID PANEL VLDL cholesterol apurva 14 mg/dL 5-40 Not Available [facility] ([facility]) [address] [place], [address], 12/15/2024 14:37:22 12/09/19 25 12/09/2024 LIPID PANEL LDL chol calc ([facility]) 44 mg/dL 0-99 Not Available [facility] ([facility]) [address] [place], [address], 12/15/2024 14:37:22 12/09/19 25 12/09/2024 LIPID PANEL LDL calc comment: LUMBER STICKER Not Available [facility] ([facility]) [address] [place], [address], 12/15/2024 14:37:22 12/09/19 25 12/15/2024 VITAM IN E vitamin E(alpha tocopherol) 13.1 mg/L 9.0-29 .0 Not Available [facility] ([facility]) [address] [place], [address], 12/15/2024 14:37:23 12/09/19 25 12/15/2024 VITAM IN [...] in E defic ient. Not Available [facility] ([facility]) [address] [facility], [place], [address], 12/15/2024 14:37:23 12/09/19 25 12/09/2024 HEMOG LOBIN A1C hemoglobin A1C 5.5 % 4.8-5. 6 normal Predi abete s: 5.7 - 6.4 Diabe inessa: >6.4 Glyce amauri contr ol for adult s with diabe inessa: <7.0 Not Available [facility] ([facility]) [address] [facility], [place], [address], 12/15/2024 14:37:24 12/09/19 25 12/09/2024 FOLAT E (FOLI C ACID) , SERUM folate (folic acid), serum >20.0 NG/mL >3.0 A serum folat e yanet ntrat ion of less than 3.1 ng/mL is consi dered to repre sent clini apurva defic iency . Not Available [facility] ([facility]) [address] [facility], [place], [address], 12/15/2024 14:37:24 12/09/19 25 12/15/2024 VITAM IN [...] Drug Admin istra tion. Not Available [facility] ([facility]) [address] [facility], [place], [address], 12/15/2024 14:37:25 12/09/19 25 12/09/2024 VITAM IN [...] um and D. Joanna roque [place]: [facility] . 2. Junie lugo [place], Garrick wallace [place], Valeria off-F christen i TURCIOS, et al. Evalu ation , treat ment, and preve ntion of vitam in D defic iency : an Endoc rine Socie ty clini apurva pract ice guide line. JCEM. 2010; 96(7) :1911 -30. Not Available [facility] ([facility]) [address] [place], [address], 12/15/2024 14:37:26 12/09/19 25 12/14/2024 VITAM IN B1 (THIA MINE) , BLOOD vit. B1, whole blood 324.9 nmol/ L 66.5-2 00.0 above high normal Not Available [facility] ([facility]) [address] [place], [address], 12/15/2024 14:37:27 12/09/19 25 12/13/2024 METHY LMALO ALICIA ACID, SERUM methylmaloni c acid, serum 278 nmol/ L 0-378 Not Available [facility] ([facility]) [address] [place], [address], 12/15/2024 14:37:28 05/30/20 25 12/11/2024 COPPE R, SERUM OR PLASM A copper, serum or plasma 106 ug/dL 80-158 Detec tion Limit = 5 Not Available [facility] ([facility]) [address] [facility], [place], [address], 12/15/2024 14:37:29 12/09/19 25 12/11/2024 ZINC, PLASM A OR SERUM zinc, plasma or serum 75 ug/dL 44-115 normal Detec tion Limit = 5 Not Available [facility] ([facility]) [address] [facility], [place], [address], 12/15/2024 14:37:30 12/09/19 25 12/09/2024 PREAL BUMIN prealbumin 22 mg/dL 10-36 Not Available [facility] ([facility]) [address] [facility], [place], [address], 12/15/2024 14:37:30 12/09/19 25 12/12/2024 SELEN IUM, BLOOD selenium, blood 155 ug/L 100-34 0 Detec tion Limit = 10 Not Available [facility] ([facility]) [address] [facility], [place], [address], 12/15/2024 14:37:31 01/19/20 25 01/18/2025 US biops y liver [facility] [address] [place] [address] Phone: Fax: Name: WENDY GOLDMAN Exam Date: 025 : [birth year] Age 69 years Gender : F Access ion: [id number] Physic mani: ERNESTO AMEZCUA ty: [place] Le[place] ty HSV: Outpat ient Exam: US BIOPSY LIVER US GUIDED LIVER BIOPSY REASON FOR STUDY: metabo lic dysfun ction- associ ated steato hepati tis, nonalc ohol PATIEN T DEMOGR APHICS :69 years, Female COMPAR AUGUSTINE: No existi ng releva nt imagin g study corres ponzach g to the same anatom ical region [...] were collec serenity and sent to pathol rishabh for furthe r analys is. After the [...] Electr onical ly signed by: Corky Suggs Thank you for referr uma BONILLA CHRISTINA W[facility]Y to [facility]. Legall y authen ticate d by LUANA JEROME 01-18 12:45: 20 CC'ed Logic: Orderi ng Provid er: CARLA ERNESTO Attend ing Provid er: CARLA CASTREJONH Referr ing Provid er: CARLA GOVEA Admitt ing Provid er: CARLA GOVEA [email or web address] [facility] [address] [facility], [place], [address], 01/19/2025 13:40:21 01/30/20 25 01/18/2025 US biops y liver [facility] [address] [place] [address] Phone: Fax: Name: WENDY GOLDMAN Exam Date: : 09/14/18 58 Age 69 years Gender : F Access ion: [id number] Physic mani: ERNESTO AMEZCUA Facili ty: [place] Facili ty HSV: Outpat ient Exam: US BIOPSY LIVER US GUIDED LIVER BIOPSY REASON FOR STUDY: metabo lic dysfun ction- associ ated steato hepati tis, nonalc ohol PATIEN T DEMOGR APHICS :69 years, Female COMPAR AUGUSTINE: No existi ng releva nt imagin g study corres mirtha g to the same anatom ica region is availa ble. DATE OF SERVIC [...] onical ly signed by: Corky Suggs 025 Addend um 1 ADDEND UM #1 Proced [...] releva nt imagin g study corres mirtha g to the same anatom ical region is availa ble. DATE OF SERVIC E: 025 8:18 AM CDT Proced ure: 1. CT-jean ded biopsy of right hepati c lobe 2. CT guidan ce used for locali zation 3. Modera te IV consci ous sedati on for 0.5 hrs Modera te sedati on servic es provid ed by the same physic mani garcia rhianna the diagno stic or therap eutic [...] were collec serenity and sent to pathol anika for furthe r analys is. After the [...] Corky Suggs 025 [facility] Legall y oksana huerta d by LUANA JEROME 2024-0 01-29 09:12: 37 CC'ed Logic: Orderi ng Provid er: [facility] Attend ing Provid er: [facility] Referr ing Provid er: [facility] Admitt ing Provid er: [facility] INTERFACE [facility] [address], [place], [address], 01/29/2025 09:16:30 Result Notes None recorded. Problems Name Problem SNOMED Code Status Onset Date Resolution Date Notes Provider Name and Address Organization Details Recorded Time Chronic idiopathi c constipat ion 09416776 Active 2021 Not Available [facility] 3 16:06:44 Gastroeso phageal reflux disease 156183156 Active 2021 Not Available [facility] 3 16:06:44 Diarrhea 62475047 Active 2021 Not Available [facility] 3 16:06:44 Hypokalem ia 80434228 Active 2021 Not Available [facility] 3 16:06:44 Abdominal pain 17200746 Active 2021 Not Available [facility] 3 16:06:44 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 Completed 202103/25/2022 Azeb Quesada [facility], [place] - [place] - [place] & [place] 2 14:37:03 Fibromyal dominique 360196045 Active 2021 Not Available [facility] 3 16:06:44 Mild dementia 62943337429 4108 Active 2021 Not Available [facility] 3 16:06:44 Chronic obstructi ve pulmonary disease 29805015 Active 2021 Not Available [facility] 3 16:06:44 Hiatal hernia 74278572 Completed 202103/25/2022 Azeb Dipak [facility], [place] - [facility] - [place] & [place] 2 14:38:57 Chronic depressio n 162302719 Active 2021 Not Available [facility] 3 16:06:44 Obesity 491702106 Active 2021 Ernesto Amezcua PA-C [address] , [place], [address] , [place] - [facility] - [place] & [place] 2 14:51:36 Hypertens silvino disorder 66023254 Active 2022 Not Available [facility] 3 16:06:44 Dyslipide franc 432968183 Active 2022 Not Available [facility] 3 16:06:44 Morbid obesity 084991218 Active 2022 Not Available [facility] 3 16:06:44 Dizziness 937978727 Active 2022 Not Available [facility] 3 16:06:44 Intention al weight loss 644666553 Active 2022 Not Available [facility] 3 16:06:44 Constipat ion 75222953 Active 2022 Ernesto Amezcua PA-C [address] , [place], [address] , [place] [facility] - [place] & [place] 3 15:41:42 Overweigh t 017172446 Active 2023 Aden Husain DNP, EBD TEACHER, LUMBER STICKER-C [address] [facility], [place], [address] , [place] [facility] - [place] 4 09:57:50 Fatigue 49929195 Active 2023 Aden Husain DNP, EBD TEACHER, LUMBER STICKER-C [address] [facility], [place], [address] , [place] [facility] [place] 4 10:00:39 Liver enzymes level above reference range 366379554 Active 2023 Aden Husain DNP, EBD TEACHER, LUMBER STICKER-C [address], [place], [address] , [place] [facility] 4 13:32:45 Low back pain 347166403 Active 2023 Aden Husain, DNP, EBD TEACHER, LUMBER STICKER-C [address], [place], [address] , [place] [facility] - [place] & [place] 4 15:56:35 Irritable bowel syndrome character ized by constipat ion 727000631 Active 2023 Ernesto Amezcua PA-C [address], [place], [place], [address] [place] [address] , [place] [facility] [place] 4 09:08:46 Metabolic dysfuncti on-associ ated steatohep atitis 555018530 Active 2023 Ernesto Amezcua PA-C [address], [place], [address] , [place] [facility] [place] 5 14:30:35 Gastroeso phageal reflux disease without esophagit is 870464630 Active 2023 Ernesto Amezcua PA-C [address], [place], [address] , [place] [facility] - [place] & [place] 4 13:48:57 Hyperlipi demia 69640737 Active 2024 Ernesto Amezcua PA-C [address], [place], [address] , [place] [facility] [place] 5 13:05:05 Problem Notes None recorded. Procedures Surgical History Date Name Laterality Status Provider Name and Address Organization Details Recorded Time 07/23/[address], LD [address], [place], [address], [place] [facility] [place] [facility] [place] 08/14/2022 16:17:22 05/28/20 21 Date of Last Pap Smear completed RIMMA RAY RD, LD [address], [place], [address], [place] [facility] [place] 08/14/2022 16:17:22 12/20/19 21 Date of Last Colonoscopy completed RIMMA HANSON [address]OR [address], LD [address], [place], [address], [place] [facility] & [place] 08/14/2022 16:17:22 11/17/19 20 Most Recent Bone Density completed RIMMA JOSEROSA RAY RD, LD [address], [place], [address], [place] [facility] [place] & [place] 08/14/2022 16:17:22 Appendectomy completed Not Available [facility] 13:08:39 extraction of wisdom tooth completed Not Available [facility] 08/10/2022 13:08:39 lithotripsy completed Not Available [facility] 07/14 13:08:39 [facility] [place] 08/13/2022 11:21:25 EGD completed Marychuy Quesada [facility] - [facility] & [place] 08/13/2022 11:21:36 Gastric Bypass [facility] & [place] 12/29/2022 08:20:27 Imaging Results None recorded. Procedure Notes None recorded. Medical Equipment None Reported. Allergies Allergen ID Allergen Name Allergen Category Reaction Reaction Severity Criticality Documentation Date Start Date Code Code System Note Provider Name and Address Organization Details Recorded Time 05947 Product containin g penicilli n (product) medicatio n Not available Not available Not available 03/25/2022 13729 8001 SNOMED Azeb ag[place], [place] [facility] & [place] 2 14:01:10 783296 indometha gen medicatio n Not available Not available Not available 06/19/2024 5781 RxNorm Other react ions and sever ities : 'Adve rse react ion to subst ance' . Kary ag[place], [place] [facility] & [place] 4 14:05:45 407798 penicilli n V Not available Not available Not available Not available 06/19/2024 7984 RxNorm Other react ions and sever ities : 'Anap hylax is due to subst ance' . Kary Rust null, [facility] & [place] 4 14:05:45 757334 milnacipr an medicatio n Not available Not available Not available 06/19/2024 82667 0 RxNorm Other react ions and sever ities : 'Adve rse react ion to subst ance' . Kary Rust null, [facility] & [place] 4 14:05:45 30009 Savella medicatio n Not available Not available Not available 08/13/2022 13766 6 RxNorm Marychuy Quesada null, [facility] & [place] 3 11:18:57 Medications Name Sig Start Date [...] Body mass index (BMI) Body weight Systolic And Diastolic Provider Name and Address Organization Details Last Updated DateTime 5 162.56 cm 98.1 [degF] 75 /min 24.8 kg/m2 24438.7 4 g 96/70 mm[Hg] Araceli Escoto [facility] & [place] 5 09:01:03 Date Recorded Body height Body mass index (BMI) Body weight Body temperature Heart rate Provider Name and Address Organization Details Last Updated DateTime 12/27/2024 162.56 cm 24.7 kg/m2 77276.58 g 98.4 [degF] 97 /min [facility] & [place] 5 14:16:54 Date Recorded Body height Body temperature Heart rate Body mass index (BMI) Body weight Systolic And Diastolic Provider Name and Address Organization Details Last Updated DateTime 4 162.56 cm 97.8 [degF] 76 /min 26.2 kg/m2 14090.8 4 g 109/73 mm[Hg] Araceli Escoto DARON [facility] & [place] 4 09:28:16 Date Recorded Body height Body temperature Heart rate Body mass index (BMI) Body weight Systolic And Diastolic Provider Name and Address Organization Details Last Updated DateTime 4 162.56 cm 98.7 [degF] 89 /min 25 kg/m2 69539.4 1 g 113/81 mm[Hg] Araceli Escoto [facility] & [place] 4 09:17:32 Date Recorded Body height Body mass index (BMI) Body weight Body temperature Heart rate Heart rate Oxygen saturation Oxygen saturation in Arterial blood by Pulse oximetry Systolic And Diastolic Provider Name and Address Organization Details Last Updated DateTime 4 162.56 cm 24.8 kg/m2 66055.0 2 g 97.4 [degF] 99 /min 98 /min 97 % 97 % 107/73 mm[Hg] Francisca Nolascowell [facility] & [place] 4 13:05:54 Social History Question Answer Notes LastModified by Lango Details LastModified Time Tobacco Smoking Status Former Smoker quit 3 years ago Araceli Velasquez [facility], [facility] & [place] 09/06/2023 09:49:34 Do You Have An Advance Directive? No [email or web address] Information not available 08/14/2022 Are You Blind Or Do You Have Difficulty Seeing? No [email or web address] Information not available 08/14/2022 What Was The Date Of Your Most Recent Tobacco Screening? 08/10/2022 Information not available 08/14/2022 Are You Passively Exposed To Smoke? No [email or web address] Information not available 08/14/2022 How Much Tobacco Do You Smoke? No [email or web address] Information not available 08/14/2022 Sex: Male Functional Status Question Answer Note LastModified by Lango Details LastModified Time Do you use any illicit or recreational drugs? No [email or web address] Information not available 08/10/2022 What is your level of alcohol consumption? None [email or web address] Information not available 08/10/2022 Do you or have you ever used smokeless tobacco? Never used smokeless tobacco [email or web address] Information not available 08/14/2022 What is your exercise level? None [email or web address] Information not available 08/14/2022 Mental Status Question Answer Note LastModified by Organization D etails LastModified Time Do you feel stressed (tense, restless, nervous, or anxious, or unable to sleep at night)? [id number] [email or web address] Information not available 08/14/2022 Family History Relationship Description Onset Age of this Age Resolved Age Notes LastModified by Organization Details LastModified Time Father Obesity [email or web address] Not availa ble 08/10/2022 08:30:50 Father Diabetes mellitus [email or web address] Not available 2024 14:11:10 Father Hypertensive disorder Not available 08:31:23 Father Heart disease [email or web address] Not available 08:31:48 Father Cerebrovascu lar accident [email or web address] Not available 08/10/2022 08:32:04 Father Hypercholest erolemia [email or web address] Not available 08:32:27 Father Asthma [email or web address] Not available 12/27/2024 14:11:10 Father Allergy pt. added direct ly (08/10) [email or web address] Not available 08/10/2022 13:04:20 Father Disorder of endocrine system pt. added direct ly (08/10) [email or web address] Not available 08/10/2022 13:07:54 Maternal Grandmother Obesity [email or web address] Not available 0 08/10/2022 08:30:50 Maternal Grandmother Hypertensive disorder Not available 08:31:23 Maternal Grandmother Heart disease [email or web address] Not available 08:31:49 Mother Hypertensive disorder [email or web address] Not available 08:31:23 Mother Heart disease [email or web address] Not available 08:31:48 Mother Cerebrovascu lar accident [email or web address] Not available 08/10/2022 08:32:04 Mother Hypercholest erolemia [email or web address] Not available 08:32:27 Mother Allergy pt. added direct ly (08/10) [email or web address] Not available 08/10/2022 13:04:20 Brother Hypertensive disorder [email or web address] Not available 08:31:23 Brother Heart disease [email or web address] Not available 08:31:49 Brother Hypercholest erolemia [email or web address] Not available 08:32:27 Brother Cerebrovascu lar accident pt. added direct ly (09/03) [email or web address] Not available 09/03/2023 11:07:40 Sister Hypertensive disorder [email or web address] Not available 08:31:23 Sister Hypercholest erolemia [email or web address] Not available 08:32:27 Maternal Grandfather Heart disease [email or web address] Not available 08:31:49 Maternal Uncle Allergy pt. [...] Y Osteoporosis/Osteopenia Y Constipation Y Heart Attack (AR) Y Back Problems Y Asthma Y Reflux/GERD [...] virus, quadrivalent, preservative 7 completed Not Available [facility] 01/01/2023 16:06:44 Influenza, recombinant, quadrivalent, PF 1 completed Not Available [facility] 01/01/2023 16:06:44 Influenza, recombinant, quadrivalent, PF 0 completed Not Available [facility] 01/01/2023 16:06:44 zoster recombinant 1 completed Not Available [facility] 01/01/2023 16:06:44 zoster recombinant 1 completed Not Available [facility] 01/01/2023 16:06:44 MMR 6 completed Not Available [facility] 01/01/2023 16:06:44 COVID-19, mRNA, LNP-S, PF, 100 mcg/0.5mL dose or 50 mcg/0.25mL dose 1 completed Not Available [facility] 01/01/2023 16:06:44 COVID-19, mRNA, LNP-S, PF, 100 mcg/0.5mL dose or 50 mcg/0.25mL dose 1 completed Not Available [facility] 01/01/2023 16:06:44 COVID-19, mRNA, LNP-S, PF, 100 mcg/0.5mL dose or 50 mcg/0.25mL dose 1 completed Not Available [facility] 01/01/2023 16:06:44 Pneumococcal conjugate PCV20, polysaccharide [id number] conjugate, adjuvant, PF 2 completed Not Available [facility] 01/01/2023 16:06:44 pneumococcal polysaccharide PPV23 1 completed Not Available [facility] 01/01/2023 16:06:44 pneumococcal polysaccharide PPV23 7 completed Not Available [facility] 01/01/2023 16:06:44 Influenza, split virus, quadrivalent, PF 9 completed Not Available [facility] 01/01/2023 16:06:44 Influenza, split virus, quadrivalent, PF 2 completed Not Available [facility] 01/01/2023 16:06:44 Influenza, split virus, quadrivalent, PF 8 completed Not Available [facility] 01/01/2023 16:06:44 influenza, unspecified formulation 4 completed Kary Rust null, [place] [facility] [place] & [place] 08/08/2024 13:51:39 Respiratory syncytial virus (RSV) MAB, unspecified 4 completed Araceli Velasquez [place], [place] [facility] [place] [facility] [place] 06/06/2024 09:21:15 Influenza, high-dose, quadrivalent, PF 3 completed Kary Rust null, [place] [facility] [place] [facility] [place] 08/08/2024 13:51:39 RSV, recombinant, protein subunit RSVpreF, adjuvant reconstituted, 0.5 mL, PF 4 completed Kary aguillon, [facility] - [facility] - [place] & [place] 08/08/2024 13:51:39 Influenza, high-dose, trivalent, PF 4 completed EDY Capone - [facility] - [place] & [place] 08/08/2024 13:51:39 Past Encounters Encounter ID Performer Location Encounter Start Date Encounter Closed Date Diagnosis/Indication Diagnosis SNOMED-CT Code Diagnosis ICD10 Code Diagnosis Note [id number] Ernesto Amezcua PA-C [facility] [address] [facility] [address] [place] [address] 03/25/2022 13:56:07 03/25/2022 14:27:57 Chronic idiopathic constipation 59517501 K59.04 Continue current bowel regimen with stool softners, fiber supplement , and Miralax as needed Gastroesop hageal reflux disease 571413731 K21.9 Increase PPI to twice daily due to refractory symptoms Obesity 862705682 E66.9 Referral to Bariatrics to discuss weight loss options. [id number] RANI Rosario [facility] [address] [facility] [address] [place] [address] 08/13/2022 07:57:41 08/13/2022 11:52:06 Obesity 389667509 E66.9 The patient will be scheduled for [...] been completed Chronic ob structive pulmonary disease 58361040 J44.9 Hypertensive disorder 38 552031 I10 Dyslipidemia 149827548 E 78.5 Hx CAD s/p AR 2014 Gastroesop hageal reflux disease 383445017 K21.9 We discussed concerns of worsening gastroesop [...] lifelong contraindi cation to tobacco/ni cotine use [id number] Ernesto Amezcua PA-C [facility] [address] [facility] [address] [place] [address] 09/21/2022 13:44:59 09/21/2022 14:12:51 Chronic idiopathic constipation 46166529 K59.04 Gastroesop hageal reflux disease 063599713 K21.9 Obesity 617145802 E66.9 [id number] Gabo Sahu DO [facility] [address] [facility] [address] [place] [address] 12/16/2022 08:52:42 12/16/2022 13:36:20 Morbid obesity 253427131 E66.01 Pre-surger y evaluation 917080488 Z01.818 Postoperative pain 76409 9007 G89.18 Hypertensive disorder 38 591851 I10 Gastroesop hageal reflux disease 237463291 K21.9 [id number] Aden Husain DNP, ARSENIO, LUMBER STICKER-C [facility] [address] [facility] [address] [place] [address] 12/29/2022 07:58:00 12/29/2022 10:15:25 History of bariatric surgical procedure 921001358 Z98.84 Chronic depression 58964 0009 F32.A Chronic ob structive pulmonary disease 81178939 J44.9 Dyslipidemia 357326928 E 78.5 Fibromyalgia 233418066 M 79.7 Hypertensive disorder 38 375692 I10 advised to follow back up with pcp regarding elevated blood pressure and dizziness. Morbid obesity 961857353 E66.01 Dizziness 866620601 R42 Intentiona l weight loss 776351283 R63.8 [id number] Aden Husain DNP, ARSENIO, LUMBER STICKER-C [facility] [address] [place] [address] [address] [place] [address] 01/19/2023 09:44:10 01/19/2023 11:03:53 History of bariatric surgical procedure 320583436 Z98.84 Intentiona l weight loss 776325152 R63.8 History of gastrectomy 281741612 Z90.3 Advised qid intake 50% protein 4708-3670 calories/d y less than 100 carbs/dyPa tient was see dietitian today. Patient is status post bariatric surgery and at increased risk for vitamin deficienci es and malnutriti on. Bariatric vitamin panel ordered today. Patient will be contacted to correct any vitamin deficienci es. Chronic ob structive pulmonary disease 93675243 J44.9 Dyslipidemia 537217012 E 78.5 Fibromyalgia 423129570 M 79.7 Hypertensive disorder 38 173433 I10 advised to follow back up with pcp regarding elevated blood pressure and dizziness. Morbid obesity 611470454 E66.01 Dizziness 172082146 R42 [id number] Aden Husain, DNP, EBD TEACHER, LUMBER STICKER-C [facility] [address] [place] [address] [address] [place] [address] 03/19/2023 10:10:54 03/19/2023 11:00:26 History of bariatric surgical procedure 333735693 Z98.84 Intentiona l weight loss 076977693 R63.8 History of gastrectomy 064982382 Z90.3 Advised qid intake 50% protein 5612-4982 calories/d y less than 100 carbs/dyLo ng [...] to correct any vitamin deficienci es. Dyslipidemia 723518121 E 78.5 Fibromyalgia 504542614 M 79.7 Obesity 223189174 E66.9 [id number] Ernesto Amezcua PA-C [facility] [address] [facility] [address] [place] [address] 05/20/2023 14:50:51 05/20/2023 15:32:08 Obesity 939344791 E66.9 History of bypass of stomach 798879553 Z98.84 History of gastroesophageal reflux disease 5262727083 9106 Z87.19 Constipation 12175781 K5 9.00 [id number] Aden Husain, DNP, EBD TEACHER, LUMBER STICKER-C [facility] [address] [facility] [address] [place] [address] 05/28/2023 09:12:11 05/28/2023 09:46:17 History of bariatric surgical procedure 214729479 Z98.84 Intentiona l weight loss 176989182 R63.8 History of gastrectomy 220536990 Z90.3 Advised qid intake 50% protein 1345-6823 calories/d y less than 100 carbs/dy Long [...] correct any vitamin deficienci es. Chronic depression 98785 0009 F32.A Chronic id iopathic constipation 67703325 K59.04 Dyslipidemia 981140861 E 78.5 Fibromyalgia 724330108 M 79.7 Hypertensive disorder 38 287585 I10 Obesity 264592003 E66.[id number]N, LD [facility] [address] [facility] [address] [place] [address] 05/28/2023 09:47:21 05/28/2023 10:33:33 Obesity 793662287 E66.9 Discussed lifestyle modificati ons for continued weight loss and optimal nutrition Deficient knowledge of food and/or nutrition 4024511667 Z76.89 RDN advised pt on ways she can increase her protein and calorie intake, including adding peanut butter with fruits and making mixed dishes such as reduced fat casseroles . Advised pt to try baked apples with a small amount of canola oil, cinnamon and Splenda or similar alternativ e as needed. [id number] Aden Husain DNP, EBD TEACHER, LUMBER STICKERJevonC [facility] [address] [facility] [address] [facility] [place] [address] 09/06/2023 09:37:05 09/06/2023 10:21:52 Dyslipidemia 262900607 E78.5 Fibromyalgia 102961097 M 79.7 Hypertensive disorder 38 773320 I10 Overweight 825532736 E66 .3 Intentiona l weight loss 424175565 R63.8 History of gastrectomy 624758282 Z90.3 Advised qid intake 50% protein 1880-4635 calories/d y less than 100 carbs/dy Long [...] to correct any vitamin deficienci es. Fatigue 23843516 R53.83 [id number] Aden Husain DNP, EBD TEACHER, LUMBER STICKER-C [facility] n [facility] [address] [facility] [address] [facility] [place] [address] 12/07/2023 13:03:52 12/07/2023 14:39:49 History of bariatric surgical procedure 316116979 Z98.84 Intentiona l weight loss 691035137 R63.8 History of gastrectomy 284084890 Z90.3 Advised qid intake 50% protein 4500-4629 calories/d y less than 100 carbs/dy Long [...] to correct any vitamin deficienci es. Dyslipidemia 205199265 E 78.5 Hypertensive disorder 38 741655 I10 Overweight 717339647 E66 .3 Chronic ob structive pulmonary disease 26742082 J44.9 Liver enzy mes level above reference range 278343670 R74.01 [id number] Jonas Ball MD [facility] [address] [facility] [address] [place] [address] 12/21/2023 14:58:32 12/21/2023 16:40:24 Obesity 628155294 E66.9 History of bypass of stomach 153245565 Z98.84 History of gastroesophageal reflux disease 9630594709 9106 Z87.19 Constipation 61458840 K5 9.00 Liver enzy mes level above reference range 295089962 R74.01 [id number] Ernesto Amezcua PA-C [facility] [address] [facility] [address] [place] [address] 03/02/2024 08:10:22 03/02/2024 09:21:52 Obesity 112917629 E66.9 History of bypass of stomach 962085467 Z98.84 History of gastroesophageal reflux disease 2398146889 9106 Z87.19 Liver enzy mes level above reference range 988367028 R74.01 Irritable bowel syndrome characterized by constipation 264668696 K58.1 [id number] Aden Husain, DNP, EBD TEACHER, LUMBER STICKER-C [facility] [address] [facility] [address] [place] [address] 03/06/2024 09:07:07 03/06/2024 10:03:41 History of bariatric surgical procedure 051564457 Z98.84 Intentiona l weight loss 484865882 R63.8 History of gastrectomy 546831037 Z90.3 Advised qid intake 50% protein 1371-3033 calories/d y less than 100 carbs/dyLo ng [...] to correct any vitamin deficienci es. Dyslipidemia 356061630 E 78.5 Hypertensive disorder 38 441503 I10 Overweight 369730427 E66 .3 Chronic id iopathic constipation 49764727 K59.04 [id number] Aden Husain, DNP, EBD TEACHER, LUMBER STICKER-C [facility] [address] [facility] [address] [place] [address] 06/06/2024 09:07:53 06/06/2024 09:44:14 Intentional weight loss 485727617 R63.8 History of gastrectomy 591144822 Z90.3 Advised qid intake 50% protein 0816-6345 calories/d y less than 100 carbs/dyLo ng [...] to correct any [facility]ienci es. [facility] 302321256 Z91.89 Chronic ob structive pulmonary disease 15710026 J44.9 Dyslipidemia 332478205 E 78.5 Hypertensive disorder 38 765487 I10 Liver enzy mes level above reference range 652543998 R74.01 Overweight 377402850 E66 .3 [id number] Ernesto Amezcua PA-C [facility] [address] [facility] [address] [place] [address] 06/26/2024 12:47:56 06/26/2024 13:41:37 Chronic idiopathic constipation 22103162 K59.04 Metabolic dysfunction-associate d steatohepatitis 641634575 K75.81 Liver enzy mes level above reference range 392708930 R74.01 Gastroesop hageal reflux disease without esophagitis 855850240 K21.9 History of colonoscopy 1386095398 09 Z98.803 [id number] Aden Husain, DNP, EBD TEACHER, LUMBER STICKER-C [facility] [address] [place] [address] 12/08/2024 08:48:35 12/08/2024 09:28:10 History of bariatric surgical procedure 263973483 Z98.84 Intentiona l weight loss 690851889 R63.8 History of gastrectomy 197986743 Z90.3 Advised qid intake 50% protein 1656-5669 calories/d y less than 100 carbs/dy Long [...] to correct any vitamin deficienci es. At [facility] ed risk of nutritional deficit 491600836 Z91.89 Dyslipidemia 290515303 E 78.5 Hypertensive disorder 38 975368 I10 Overweight 698565959 E66 .3 [id number] Ernesto Amezcua PA-C [facility] [address] [facility] [address] [place] [address] 12/27/2024 14:10:09 12/27/2024 14:38:18 Liver enzymes level above reference range 285562974 R74.01 Metabolic dysfunction-associate d steatohepatitis 413868607 K75.81 Gastroesop hageal reflux disease without esophagitis 657541714 K21.9 Chronic id iopathic constipation 09083681 K59.04 History of colonoscopy 9100575150 09 Z98.890 Health Concerns Section Related Observation LastModified by Organization Detai ls LastModified Time None Recorded Concern Status LastModified by Organization Details LastModified Time None Recorded Advance Directives Directive N: Payers Insurance Date Sequence Insurance Name Policy Number Policy Acosta Covered Member ID Acosta Member ID Guarantor Name 01/04/2025 1 MEDICARE B-[place]: WPS Wendy Mark Doran [id number] Wendydesiree Doran 01/04/2025 2 AARP (MEDICARE SUPPLEMENT) Wendy Mark Doran [id number] [place] 01/04/2025 [place] Wendy Mark Doran [id number] Wendy [place] 01/04/2025 1 [place] Wendy Mark Doran [id number] Wendy [place] 12/04/2020 3 [place] [id number] R Stanislav Doran [id number] Wendydseiree [place] 01/04/2025 2 [place] Wendy Mark Doran [id number] Wendy [place] 01/04/2025 4 [employer] (MEDICARE REPLACEMENT/ ADVANTAGE - HMO) Wendy Mark Doran [id number] Wendydesiree HollandEspinoza 01/04/2025 1 [employer] (MEDICARE REPLACEMENT/ ADVANTAGE - PPO) Wendy Mark Doran [id number] Wendydesiree Doran Notes Date Note Type Note Provider Name and Address Organization Details Recorded Time 03/06/2024 text/html ROS as noted in the HPI Patient presents the office today for routine [...] Metabolic Rate = 1269 kilo calories Aden Husain DNP, ARSENIO, LUMBER STICKER-C [address], [place], [address] & [place] 03/06/2024 10:54:05 06/06/2024 text/html ROS as noted in the HPI Patient presents the office today for routine [...] 1309 kilo calories Aden Husain DNP, ARSENIO, LUMBER STICKER-C [address], [place], [address] [place] 06/06/2024 11:11:04 06/26/2024 text/html ROS as noted in the HPI CURRENT (06/26/24): Ms. Doran is a very [...] bypass 1.5 years ago. Ernesto Amezcua PA-C [address], [place], [address], [facility] [place] 06/26/2024 13:49:44 12/08/2024 text/html ROS as noted in the HPI Patient presents the office today for routine [...] = 1261 kilo calories Aden Husain, DNP, EBD TEACHER, LUMBER STICKER-C [address] [facility], [place], [address], [facility] & [place] 12/08/2024 09:20:24 12/27/2024 text/html ROS as noted in the [...] overall at this time. Ernesto Amezcua PA-C [address], [place], [address], [facility] - [place] & [place] 12/27/2024 14:41:34 OBGyn Episode No OBEpisode recorded.
--- OUTSIDE RECORDS SUMMARY | 2025-02-01 10:41 | XMS_ITS | Clinical Summary ---
Author Organization [facility] Address [address] [place] [address] Care Team Providers Care Light Truck Driver Name Role Phone Saul Benitez MD Primary Care Provider [phone] Family History Medical History Relation Name Comments [...] of Treatment Not on file Care Teams Light Truck Driver Relationship Specialty Start Date End Date Saul Benitez MD [address] [place] [address] PCP - General 11/22/20
--- OUTSIDE RECORDS SUMMARY | 2025-02-01 10:41 | XMS_ITS | Continuity of Care Document ---
Author Organization [facility] Address [address] [place] [address] Care Team Providers Care Networking Specialist Name Role Phone CAREYGALIESTEFANIA GENET Primary Care Provider Assessment No assessment recorded. Plan of Treatment Reminders Order Date Submit Date Provider Last Modified By Organization Details Last Modified Time Details Appointments Establish ed Visit 15 min 2024 10:45A M Ernesto Amezcua PA-C Not available Not available Not available OV EST 20 2024 10:00A M Aden Husain, DNP, RECONSIGNMENT CLERK, HOSPICE MANAGER-C Not available Not available Not available Lab CBC w/ auto diff 2024 025 ISAAC [facility], [address], [address], [place], [address], 12/15/2024 14:37:20 CMP, serum or plasma 2024 025 ISAAC [facility], [address], [address], [place], [address], 12/15/2024 14:37:21 TSH + free T4, serum 2024 025 ISAAC [facility], [address], [address], [place], [address], 12/15/2024 14:37:19 HbA1c (hemoglob in A1c), blood 2024 025 ISAAC [facility], [address], [address], [place], [address], 12/15/2024 14:37:24 lipid panel, serum 2024 025 ISAAC [facility], [address], [address], [place], [address], 12/15/2024 14:37:22 copper, serum or plasma 2024 025 ISAAC [facility], [address], [address], [place], [address], 12/15/2024 14:37:29 selenium, quantitat silvino, blood 2024 025 ISAAC [facility], [address], [address], [place], [address], 12/15/2024 14:37:31 zinc, serum or plasma 2024 025 ISAAC [facility], [address], [address], [place], [address], 12/15/2024 14:37:30 iron + TIBC + ferritin, serum 2024 025 ISAAC [facility], [address], [address], [place], [address], 12/15/2024 14:37:18 folate, serum 2024 025 ISAAC [facility], [address], [address], [place], [address], 12/15/2024 14:37:24 vitamin E, serum 2024 025 ISAAC [facility], [address], [address], [place], [address], 12/15/2024 14:37:23 vitamin A (retinol) , serum 2024 025 ISAAC [facility], [address], [address], [place], [address], 12/15/2024 14:37:25 prealbumi n, serum 2024 025 ISAAC [facility], [address], [address], [place], [address], 12/15/2024 14:37:30 thiamine, QN, blood 2024 025 ISAAC [facility], [address], [address], [place], [address], 12/15/2024 14:37:27 methylmal jareth, QN, serum or plasma 2024 025 ISAAC [facility], [address], [address], [place], [address], 12/15/2024 14:37:28 vitamin D, 25-hydrox y, total, serum 2024 025 PIERSON [facility], [address], [address], [place], [address], 12/15/2024 14:37:26 Referral None recorded. Procedures None recorded. Surgeries None recorded. Imaging None recorded. Medication Orders None recorded. Patient TargetsNo targets recorded. Patient InstructionsNo instructions recorded. Reason for Referral None Reported. Results Created Date Observation Date Name Description Value Unit Range Abnormal Flag Note LastModifiedBy Organization Detail LastModifiedTime 12/09/1912/09/2024 FE+TI BC+FE R iron bind.cap.(TI BC) 336 ug/dL 250-45 0 normal Not Available [facility] ([facility]) [address], [place], [address], 12/15/2024 14:37:18 12/09/19 25 12/09/2024 FE+TI BC+FE R UIBC 214 ug/dL 118-36 9 normal Not Available [facility] ([facility]) [address] [place], [address], 12/15/2024 14:37:18 12/09/19 25 12/09/2024 FE+TI BC+FE R iron 122 ug/dL 27-139 normal Not Available [facility] ([facility]) [address] [place], [address], 12/15/2024 14:37:18 12/09/19 25 12/09/2024 FE+TI BC+FE R iron saturation 36 % 15-55 normal Not Available [facility] ([facility]) [address] [place], [address], 12/15/2024 14:37:18 12/09/19 25 12/09/2024 FE+TI BC+FE R ferritin 31 NG/mL 15-150 normal Not Available [facility] ([facility]) [address] [place], [address], 12/15/2024 14:37:18 12/09/1912/09/2024 TSH+F REE T4 TSH 2.100 uIU/m L 0.450- 4.500 normal Not Available [facility] ([facility]) [address] [place], [address], 12/15/2024 14:37:19 12/09/1912/09/2024 TSH+F REE T4 T4,free(dire ct) 0.83 NG/dL 0.82-1 .77 normal Not Available [facility] ([facility]) [address] [place], [address], 12/15/2024 14:37:19 12/09/19 25 12/08/2024 CBC WITH DIFFE RENTI AL/PL ATELE T WBC 6.1 x10e3 /uL 3.4-10 .8 normal Not Available [facility] ([facility]) [address] [facility] [address], [place], [address], 12/15/2024 14:37:20 12/09/19 25 12/08/2024 CBC WITH DIFFE RENTI AL/PL ATELE T RBC 4.92 x10e6 /uL 3.77-5 .28 normal Not Available [facility] ([facility]) [address] [facility] [address], [place], [address], 12/15/2024 14:37:20 12/09/19 25 12/08/2024 CBC WITH DIFFE RENTI AL/PL ATELE T hemoglobin 14.9 g/dL 11.1-1 5.9 normal Not Available [facility] ([facility]) [address] [facility] [address], [place], [address], 12/15/2024 14:37:20 12/09/19 25 12/08/2024 CBC WITH DIFFE RENTI AL/PL ATELE T hematocrit 45.6 % 34.0-4 6.6 normal Not Available [facility] ([facility]) [address] [facility] [address], [place], [address], 12/15/2024 14:37:20 12/09/19 25 12/08/2024 CBC WITH DIFFE RENTI AL/PL ATELE T MCV 93 fL 79-97 normal Not Available [facility] ([facility]) [address] [place], [address], 12/15/2024 14:37:20 12/09/19 25 12/08/2024 CBC WITH DIFFE RENTI AL/PL ATELE T MCH 30.3 pg 26.6-3 3.0 normal Not Available [facility] ([facility]) [address] [facility] [address], [place], [address], 12/15/2024 14:37:20 12/09/19 25 12/08/2024 CBC WITH DIFFE RENTI AL/PL ATELE T MCHC 32.7 g/dL 31.5-3 5.7 normal Not Available [facility] ([facility]) [address] [facility] [address], [place], [address], 12/15/2024 14:37:20 12/09/19 25 12/08/2024 CBC WITH DIFFE RENTI AL/PL ATELE T RDW 12.5 % 11.7-1 5.4 Not Available [facility] ([facility]) [address] [facility] [address], [place], [address], 12/15/2024 14:37:20 12/09/19 25 12/08/2024 CBC WITH DIFFE RENTI AL/PL ATELE T platelets 234 x10e3 /uL 150-45 0 normal Not Available [facility] ([facility]) [address] [facility] [address], [place], [address], 12/15/2024 14:37:20 12/09/19 25 12/08/2024 CBC WITH DIFFE RENTI AL/PL ATELE T neutrophils 56 % not estab. normal Not Available [facility] ([facility]) [address] [facility] [address], [place], [address], 12/15/2024 14:37:20 12/09/19 25 12/08/2024 CBC WITH DIFFE RENTI AL/PL ATELE T lymphs 28 % not estab. normal Not Available [facility] ([facility]) [address] [facility] [address], [place], [address], 12/15/2024 14:37:20 12/09/19 25 12/08/2024 CBC WITH DIFFE RENTI AL/PL ATELE T monocytes 10 % not estab. normal Not Available [facility] ([facility]) [address] [facility] [address], [place], [address], 12/15/2024 14:37:20 12/09/19 25 12/08/2024 CBC WITH DIFFE RENTI AL/PL ATELE T eos 5 % not estab. normal Not Available [facility] ([facility]) [address] [facility] [address], [place], [address], 12/15/2024 14:37:20 12/09/19 25 12/08/2024 CBC WITH DIFFE RENTI AL/PL ATELE T basos 1 % not estab. normal Not Available [facility] ([facility]) [address] [place], [address], 12/15/2024 14:37:20 12/09/19 25 12/08/2024 CBC WITH DIFFE RENTI AL/PL ATELE T immature cells HOSPICE MANAGER Not Available [facility] ([facility]) [address] [place], [address], 12/15/2024 14:37:20 12/09/19 25 12/08/2024 CBC WITH DIFFE RENTI AL/PL ATELE T neutrophils (absolute) 3.5 x10e3 /uL 1.4-7. 0 normal Not Available [facility] ([facility]) [address] [place], [address], 12/15/2024 14:37:20 12/09/19 25 12/08/2024 CBC WITH DIFFE RENTI AL/PL ATELE T lymphs (absolute) 1.7 x10e3 /uL 0.7-3. 1 normal Not Available [facility] ([facility]) [address] [place], [address], 12/15/2024 14:37:20 12/09/19 25 12/08/2024 CBC WITH DIFFE RENTI AL/PL ATELE T monocytes(ab solute) 0.6 x10e3 /uL 0.1-0. 9 normal Not Available [facility] ([facility]) [address] [place], [address], 12/15/2024 14:37:20 12/09/19 25 12/08/2024 CBC WITH DIFFE RENTI AL/PL ATELE T eos (absolute) 0.3 x10e3 /uL 0.0-0. 4 normal Not Available [facility] ([facility]) [address] [facility] [place], [address], 12/15/2024 14:37:20 12/09/19 25 12/08/2024 CBC WITH DIFFE RENTI AL/PL ATELE T baso (absolute) 0.1 x10e3 /uL 0.0-0. 2 normal Not Available [facility] ([facility]) [address] [facility] [address], [place], [address], 12/15/2024 14:37:20 12/09/19 25 12/08/2024 CBC WITH DIFFE RENTI AL/PL ATELE T immature granulocytes 0 % not estab. Not Available [facility] ([facility]) [address] [facility] [address], [place], [address], 12/15/2024 14:37:20 12/09/19 25 12/08/2024 CBC WITH DIFFE RENTI AL/PL ATELE T immature grans (abs) 0.0 x10e3 /uL 0.0-0. 1 Not Available [facility] ([facility]) [address] [facility] [address], [place], [address], 12/15/2024 14:37:20 12/09/19 25 12/08/2024 CBC WITH DIFFE RENTI AL/PL ATELE T NRBC HOSPICE MANAGER Not Available [facility] ([facility]) [address] [facility] [address], [place], [address], 12/15/2024 14:37:20 12/09/19 25 12/08/2024 CBC WITH DIFFE RENTI AL/PL ATELE T hematology comments: HOSPICE MANAGER Not Available [facility] ([facility]) [address] [facility] [address], [place], [address], 12/15/2024 14:37:20 12/09/19 25 12/09/2024 COMP. METAB OLIC PANEL (14) glucose 91 mg/dL 70-99 normal Not Available [facility] ([facility]) [address] [facility] [address], [place], [address], 12/15/2024 14:37:21 12/09/19 25 12/09/2024 COMP. METAB OLIC PANEL (14) BUN 33 mg/dL 8-27 above high normal Not Available [facility] ([facility]) [address] [facility] [address], [place], [address], 12/15/2024 14:37:21 12/09/19 25 12/09/2024 COMP. METAB OLIC PANEL (14) creatinine 0.86 mg/dL 0.57-1 .00 normal Not Available [facility] ([facility]) [address] [facility] [address], [place], [address], 12/15/2024 14:37:21 12/09/19 25 12/09/2024 COMP. METAB OLIC PANEL (14) eGFR 74 mL/mi n/1.7 3 >59 normal Not Available [facility] ([facility]) [address] [place], [address], 12/15/2024 14:37:21 12/09/19 25 12/09/2024 COMP. METAB OLIC PANEL (14) BUN/creatini ne ratio 38 12-28 above high normal Not Available [facility] ([facility]) [address] [facility] [address], [place], [address], 12/15/2024 14:37:21 12/09/19 25 12/09/2024 COMP. METAB OLIC PANEL (14) sodium 139 mmol/ L 134-14 4 normal Not Available [facility] ([facility]) [address] [place], [address], 12/15/2024 14:37:21 12/09/19 25 12/09/2024 COMP. METAB OLIC PANEL (14) potassium 4.4 mmol/ L 3.5-5. 2 normal Not Available [facility] ([facility]) [address] [place], [address], 12/15/2024 14:37:21 12/09/19 25 12/09/2024 COMP. METAB OLIC PANEL (14) chloride 104 mmol/ L 96-106 normal Not Available [facility] ([facility]) [address] [facility] [place], [address], 12/15/2024 14:37:21 12/09/19 25 12/09/2024 COMP. METAB OLIC PANEL (14) carbon dioxide, total 21 mmol/ L 20-29 normal Not Available [facility] ([facility]) [address] [facility] [place], [address], 12/15/2024 14:37:21 12/09/19 25 12/09/2024 COMP. METAB OLIC PANEL (14) calcium 9.4 mg/dL 8.7-10 .3 normal Not Available [facility] ([facility]) [address] [facility] [place], [address], 12/15/2024 14:37:21 12/09/19 25 12/09/2024 COMP. METAB OLIC PANEL (14) protein, total 6.5 g/dL 6.0-8. 5 normal Not Available [facility] ([facility]) [address] [facility] [place], [address], 12/15/2024 14:37:21 12/09/19 25 12/09/2024 COMP. METAB OLIC PANEL (14) albumin 4.2 g/dL 3.9-4. 9 normal Not Available [facility] ([facility]) [address] [place], [address], 12/15/2024 14:37:21 12/09/19 25 12/09/2024 COMP. METAB OLIC PANEL (14) globulin, total 2.3 g/dL 1.5-4. 5 Not Available [facility] ([facility]) [address] [facility] [place], [address], 12/15/2024 14:37:21 12/09/19 25 12/09/2024 COMP. METAB OLIC PANEL (14) bilirubin, total 0.4 mg/dL 0.0-1. 2 normal Not Available [facility] ([facility]) [address] [place], [address], 12/15/2024 14:37:21 12/09/19 25 12/09/2024 COMP. METAB OLIC PANEL (14) alkaline phosphatase 87 IU/L 44-121 normal Not Available [facility] ([facility]) [address] [place], [address], 12/15/2024 14:37:21 12/09/19 25 12/09/2024 COMP. METAB OLIC PANEL (14) AST (SGOT) 62 IU/L 0-40 above high normal Not Available [facility] ([facility]) [address] [facility] [place], [address], 12/15/2024 14:37:21 12/09/19 25 12/09/2024 COMP. METAB OLIC PANEL (14) ALT (SGPT) 89 IU/L 0-32 above high normal Not Available [facility] ([facility]) [address] [facility] [place], [address], 12/15/2024 14:37:21 12/09/19 25 12/09/2024 LIPID PANEL cholesterol, total 117 mg/dL 100-19 9 normal Not Available [facility] ([facility]) [address] [facility] [place], [address], 12/15/2024 14:37:22 12/09/19 25 12/09/2024 LIPID PANEL triglyceride s 69 mg/dL 0-149 normal Not Available [facility] ([facility]) [address] [facility] [place], [address], 12/15/2024 14:37:22 12/09/19 25 12/09/2024 LIPID PANEL HDL cholesterol 59 mg/dL >39 normal Not Available [facility] ([facility]) [address] [facility] [place], [address], 12/15/2024 14:37:22 12/09/19 25 12/09/2024 LIPID PANEL VLDL cholesterol apurva 14 mg/dL 5-40 Not Available [facility] ([facility]) [address] [place], [address], 12/15/2024 14:37:22 12/09/19 25 12/09/2024 LIPID PANEL LDL chol calc ([facility]) 44 mg/dL 0-99 Not Available [facility] ([facility]) [address] [place], [address], 12/15/2024 14:37:22 12/09/19 25 12/09/2024 LIPID PANEL LDL calc comment: HOSPICE MANAGER Not Available [facility] ([facility]) [address] [place], [address], 12/15/2024 14:37:22 12/09/19 25 12/15/2024 VITAM IN E vitamin E(alpha tocopherol) 13.1 mg/L 9.0-29 .0 Not Available [facility] ([facility]) [address] [facility] [address], [place], [address], 12/15/2024 14:37:23 12/09/19 25 12/15/2024 VITAM IN [...] in E defic ient. Not Available [facility] ([facility]) [address] [facility] [address], [place], [address], 12/15/2024 14:37:23 12/09/19 25 12/09/2024 HEMOG LOBIN A1C hemoglobin A1C 5.5 % 4.8-5. 6 normal Predi abete s: 5.7 - 6.4 Diabe inessa: >6.4 Glyce amauri contr ol for adult s with diabe inessa: <7.0 Not Available [facility] ([facility]) [address] [facility] [address], [place], [address], 12/15/2024 14:37:24 12/09/19 25 12/09/2024 FOLAT E (FOLI C ACID) , SERUM folate (folic acid), serum >20.0 NG/mL >3.0 A serum folat e yanet ntrat ion of less than 3.1 ng/mL is consi dered to repre sent clini apurva defic iency . Not Available [facility] ([facility]) [address] [facility] [address], [place], [address], 12/15/2024 14:37:24 12/09/19 25 12/15/2024 VITAM IN [...] Drug Admin istra tion. Not Available [facility] ([facility]) [address] [facility] [address], [place], [address], 12/15/2024 14:37:25 12/09/1912/09/2024 VITAM IN D, 25-HY DROXY vitamin D, [...] um and D. Joanna roque [place]: [employer] [facility] [employer] . 2. Junie lugo MF, Garrick wallace [place], Valeria off-F errar i TURCIOS, et al. Evalu ation , treat ment, and preve ntion of vitam in D defic iency : an Endoc rine Socie ty clini apurva pract ice guide line. JCEM. 2010; 96(7) :1911 -30. Not Available [facility] ([facility]) [address] [place], [address], 12/15/2024 14:37:26 12/09/19 25 12/14/2024 VITAM IN B1 (THIA MINE) , BLOOD vit. B1, whole blood 324.9 nmol/ L 66.5-2 00.0 above high normal Not Available [facility] ([facility]) [address] [place], [address], 12/15/2024 14:37:27 12/09/19 25 12/13/2024 METHY LMALO ALICIA ACID, SERUM methylmaloni c acid, serum 278 nmol/ L 0-378 Not Available [facility] ([facility]) [address] [place], [address], 12/15/2024 14:37:28 12/09/19 25 12/11/2024 COPPE R, SERUM OR PLASM A copper, serum or plasma 106 ug/dL 80-158 Detec tion Limit = 5 Not Available [facility] ([facility]) [address] [place], [address], 12/15/2024 14:37:29 12/09/19 25 12/11/2024 ZINC, PLASM A OR SERUM zinc, plasma or serum 75 ug/dL 44-115 normal Detec tion Limit = 5 Not Available [facility] ([facility]) [address] [facility] [address], [place], [address], 12/15/2024 14:37:30 12/09/19 25 12/09/2024 PREAL BUMIN prealbumin 22 mg/dL 10-36 Not Available [facility] ([facility]) [address] [facility] [address], [place], [address], 12/15/2024 14:37:30 12/09/19 25 12/12/2024 SELEN IUM, BLOOD selenium, blood 155 ug/L 100-34 0 Detec tion Limit = 10 Not Available [facility] ([facility]) [address] [facility] [address], [place], [address], 12/15/2024 14:37:31 01/19/20 25 01/18/2025 [facility] [address] [place] [address] Phone: Fax: Name: MARIA ISABEL GOLDMAN Exam Date: : [birth year] Age 69 years Gender : F Access ion: [id number] Physic mani: ERNESTO AMEZCUA Facili ty: [facility] Facili ty HSV: Outpat ient Exam: US BIOPSY LIVER US GUIDED LIVER BIOPSY REASON FOR STUDY: metabo lic dysfun ction- associ ated steato hepati tis, nonalc ohol PATIEN T DEMOGR APHICS :69 years, Female COMPAR AUGUSTINE: No existi ng releva nt imagin g study correhalley rogers to the same anatom ica region is [...] and approp riate dressi ngs were [place] Impres yifan: 1. CT-jean ded right hepati c lobe biopsy as descri bed above. Electr onical ly signed by: Corky siu MD 2024 12:45 PM EDT RP Workst ation: [id number] Dictat ed By: Corky Suggs Transc ribed By: Transc ribed On: 025 12:45 PM Electr onical ly signed by: Corky Suggs 025 Thank you for [facility]err ing [facility] Legall y authen ticate d by LUANA JEROME 01-18 12:45: 20 CC'ed Logic: Orderi ng Provid er: CARLA ERNESTO Attend ing Provid er: CARLA GOVEA Referr ing Provid er: CARLA GOVEA Admitt ing Provid er: CARLA GOVEA [facility] [address], [place], [address], 01/19/2025 13:40:21 01/30/20 25 01/18/2025 US biops y liver [facility] [address] [place] [address] Phone: Fax: Name: MARIA ISABEL GOLDMAN Exam Date: 025 : [birth year] Age 69 years Gender : F Access ion: [id number] Physic mani: ERNESTO AMEZCUA Facili ty: [facility] Facili ty HSV: Outpat ient Exam: US [...] were collec serenity and sent to [facility] for furthe r analys is. After the [...] by LUANA JEROME 2024-0 01-29 09:12: 37 ORIGIN AL REPORT US [...] provid ed by the same physic mani jose rhianna the diagno stic or therap eutic [...] Corky Suggs 025 Thank you for referr ing MARIA ISABEL GOLDMAN to [facility]. Legall y authen ticate d by LUANA JEROME 2024-0 01-29 09:12: 37 CC'ed Logic: Orderi ng Provid er: CARLA GOVEA Attend ing Provid er: CARLA GOVEA Referr ing Provid er: CARLA GOVEA Admitt ing Provid er: CARLA GOVEA INTERFACE [facility] [address], [place], [address], 01/29/2025 09:16:30 Result Notes None recorded. Problems Name Problem SNOMED Code Status Onset Date Resolution Date Notes Provider Name and Address Organization Details Recorded Time Chronic idiopathi c constipat ion 63011462 Active 2021 Not Available [facility] 3 16:06:44 Gastroeso phageal reflux disease 622921163 Active 2021 Not Available [facility] 3 16:06:44 Diarrhea 97635723 Active 2021 Not Available [facility] 3 16:06:44 Hypokalem ia 76303245 Active 2021 Not Available [facility] 3 16:06:44 Abdominal pain 48140659 Active 2021 Not Available [facility] 3 16:06:44 Myocardia l infarctio n 14892899 Completed 202103/25/2022 Azeb Quesada null, [place] - [facility] [place] 2 14:37:03 Fibromyal dominique 443136345 Active 2021 Not Available [facility] 3 16:06:44 Mild dementia 93738557709 4108 Active 2021 Not Available [facility] 3 16:06:44 Chronic obstructi ve pulmonary disease 20374890 Active 2021 Not Available [facility] 3 16:06:44 Hiatal hernia 99993120 Completed 202103/25/2022 Azeb aguillon, [place] - [facility] [place] 2 14:38:57 Chronic depressio n 797341863 Active 2021 Not Available [facility] 3 16:06:44 Obesity 451830651 Active 2021 Ernesto Amezcua PA-C [address], [place], [address] , [place] [facility] [place] 2 14:51:36 Hypertens silvino disorder 01757839 Active 2022 Not Available [facility] 3 16:06:44 Dyslipide franc 578829645 Active 2022 Not Available [facility] 3 16:06:44 Morbid obesity 680329374 Active 2022 Not Available [facility] 3 16:06:44 Dizziness 180574632 Active 2022 Not Available [facility] 3 16:06:44 Intention al weight loss 342773593 Active 2022 Not Available [facility] 3 16:06:44 Constipat ion 99709406 Active 2022 Ernesto Amezcua PA-C [address], [place], [address] , [place] [facility] [place] 3 15:41:42 Overweigh t 942054579 Active 2023 Aden Husain DNP, RECONSIGNMENT CLERK, HOSPICE MANAGER-C [address] , [place], [address] , [place] [facility] [place] 4 09:57:50 Fatigue 41596310 Active 2023 Aden Husain DNP, RECONSIGNMENT CLERK, HOSPICE MANAGER-C [address] , [place], [address] , [place] [facility] [place] 4 10:00:39 Liver enzymes level above reference range 199533552 Active 2023 Aden Husain DNP, RECONSIGNMENT CLERK, HOSPICE MANAGER-C [address] , [place], [address] , [place] [facility] [place] 4 13:32:45 Low back pain 969126189 Active 2023 Aden Husain DNP, RECONSIGNMENT CLERK, HOSPICE MANAGER-C [address] [facility], [place], [address] , [place] [facility] [place] 4 15:56:35 Irritable bowel syndrome character ized by constipat ion 584750825 Active 2023 Ernesto Amezcua PA-C [address], [place], [address] , [place] [facility] [place] 4 09:08:46 Metabolic dysfuncti on-associ ated steatohep atitis 070231963 Active 2023 Ernesto Amezcua PA-C [address], [place], [address] , [place] [facility] [place] 5 14:30:35 Gastroeso phageal reflux disease without esophagit is 621840900 Active 2023 Ernesto Amezcua PA-C [address], [place], [address] , [place] [facility] [place] 4 13:48:57 Hyperlipi demia 06476352 Active 2024 Ernesto Amezcua PA-C [address], [place], [address] , [place] [facility] [place] 5 13:05:05 Problem Notes None recorded. Procedures Surgical History Date Name Laterality Status Provider Name and Address Organization Details Recorded Time 07/23/[address], LD [address] , [place], [address], [place] [facility] [place] 08/14/2022 16:17:22 05/28/20 21 Date of Last Pap Smear completed [address], [address], [place], [address], [place] [facility] - [place] & [place] 08/14/2022 16:17:22 12/20/19 21 Date of Last Colonoscopy completed [address], [address], [place], [address], [place] [facility] [place] & [place] 08/14/2022 16:17:22 11/17/19 20 Most Recent Bone Density completed RIMMA [address], [address], [place], [address], [facility] & [place] 08/14/2022 16:17:22 Appendectomy completed Not Available Epion 13:08:39 extraction of wisdom tooth completed Not Available [facility] 08/10/2022 13:08:39 lithotripsy completed Not Available [facility] 07/14 13:08:39 Colonoscopy completed Marychuy Quesada [facility] & [place] 08/13/2022 11:21:25 EGD completed Marychuy Quesada [facility] & [place] 08/13/2022 11:21:36 Gastric Bypass completed Dipesh Dow [facility] & [place] 12/29/2022 08:20:27 Imaging Results None recorded. Procedure Notes None recorded. Medical Equipment None Reported. Allergies Allergen ID Allergen Name Allergen Category Reaction Reaction Severity Criticality Documentation Date Start Date Code Code System Note Provider Name and Address Organization Details Recorded Time 56612 Product containin g penicilli n (product) medicatio n Not available Not available Not available 03/25/2022 98376 8001 SNOMED Azeb Quesada [facility] & [place] 2 14:01:10 748393 indometha gen medicatio n Not available Not available Not available 06/19/2024 5781 RxNorm Other react ions and sever ities : 'Adve rse react ion to subst ance' . Kary Rust [facility] & [place] 4 14:05:45 671591 penicilli n V Not available Not available Not available Not available 06/19/2024 7984 RxNorm Other react ions and sever ities : 'Anap hylax is due to subst ance' . [facility] [place] 4 14:05:45 447285 milnacipr an medicatio n Not available Not available Not available 06/19/2024 19862 0 RxNorm Other react ions and sever ities : 'Adve rse react ion to subst ance' . Kary Rust null, [place] [facility] & [place] 4 14:05:45 58897 Saveshadia medicleelao n Not available Not available Not available 08/13/2022 44354 6 RxNorm Marychuy Quesada [facility], [place] - [facility] & [place] 3 11:18:57 Medications Name Sig Start Date [...] cm 98.1 [degF] 75 /min 24.8 kg/m2 29932.7 4 g 96/70 mm[Hg] Araceli SNOW [facility] & [place] 09:01:03 Social History Question Answer Notes LastModified by Organizat ion Details LastModified Time Tobacco Smoking Status Former Smoker quit 3 years ago Araceli Velasquez [facility], [facility] & [place] 09/06/2023 09:49:34 Do You Have An Advance Directive? No [email or web address] Information not available 08/14/2022 Are You Blind Or Do You Have Difficulty Seeing? No [email or web address] Information not available 08/14/2022 What Was The Date Of Your Most Recent Tobacco Screening? 08/10/2022 Information not available 08/14/2022 Are You Passively Exposed To Smoke? No [email or web address] Information not available 08/14/2022 How Much Tobacco Do You Smoke? No Information not available 08/14/2022 Sex: Male Functional Status Question Answer Note LastModified by Organizat Space Apart Details LastModified Time Do you use any illicit or recreational drugs? No [email or web address] Information not available 08/10/2022 What is your level of alcohol consumption? None [email or web address] Information not available 08/10/2022 Do you or have you ever used smokeless tobacco? Never used smokeless tobacco [email or web address] Information not available 08/14/2022 What is your exercise level? None [email or web address] Information not available 08/14/2022 Mental Status Question Answer Note LastModified by Organization D etails LastModified Time Do you feel stressed (tense, restless, nervous, or anxious, or unable to sleep at night)? [id number] [email or web address] Information not available 08/14/2022 Family History Relationship Description Onset Age of this Age Resolved Age Notes LastModified by Organization Details LastModified Time Father Obesity [email or web address] Not availa ble 08/10/2022 08:30:50 Father Diabetes mellitus [email or web address] Not available 2024 14:11:10 Father Hypertensive disorder [email or web address] Not available 08:31:23 Father Heart disease [email or web address] Not available 08:31:48 Father Cerebrovascu lar accident [email or web address] Not available 08/10/2022 08:32:04 Father Hypercholest erolemia [email or web address] Not available 08:32:27 Father Asthma [email or web address] Not available 12/27/2024 14:11:10 Father Allergy pt. added direct ly (08/10) [email or web address] Not available 08/10/2022 13:04:20 Father Disorder of endocrine system pt. added direct ly (08/10) [email or web address]-13 Not available 08/10/2022 13:07:54 Maternal Grandmother Obesity [email or web address] Not available 0 08/10/2022 08:30:50 Maternal Grandmother Hypertensive disorder [email or web address] Not available 08:31:23 Maternal Grandmother Heart disease [email or web address] Not available 08:31:49 Mother Hypertensive disorder [email or web address] Not available 08:31:23 Mother Heart disease [email or web address] Not available 08:31:48 Mother Cerebrovascu lar accident [email or web address] Not available 08/10/2022 08:32:04 Mother Hypercholest erolemia [email or web address] Not available 08:32:27 Mother Allergy pt. added direct ly (08/10) [email or web address]-13 Not available 08/10/2022 13:04:20 Brother Hypertensive disorder [email or web address] Not available 08:31:23 Brother Heart disease [email or web address] Not available 08:31:49 Brother Hypercholest erolemia [email or web address] Not available 08:32:27 Brother Cerebrovascu lar accident pt. added direct ly (09/03) [email or web address]-13 Not available 09/03/2023 11:07:40 Sister Hypertensive disorder [email or web address] Not available 08:31:23 Sister Hypercholest erolemia [email or web address] Not available 08:32:27 Maternal Grandfather Heart disease [email or web address] Not available 08:31:49 Maternal Uncle Allergy pt. added direct ly (08/10) [email or web address]-13 Not available 08/10/2022 13:04:20 Paternal Grandmother Obesity pt. added direct ly (08/10) [email or web address]-13 Not available 08/10/2022 13:08:19 Medical History Condition Response Gout N Other Y Kidney Stones Y Depression Y COPD Y Osteoporosis/Osteopenia Y Constipation Y Heart Attack (AK) Y Spine Problems Y Obstructive Sleep Apnea [...] virus, quadrivalent, preservative 7 completed Not Available [facility] 01/01/2023 16:06:44 Influenza, recombinant, quadrivalent, PF 1 completed Not Available [facility] 01/01/2023 16:06:44 Influenza, recombinant, quadrivalent, PF 0 completed Not Available [facility] 01/01/2023 16:06:44 zoster recombinant 1 completed Not Available [facility] 01/01/2023 16:06:44 zoster recombinant 1 completed Not Available [facility] 01/01/2023 16:06:44 MMR 6 completed Not Available [facility] 01/01/2023 16:06:44 COVID-19, mRNA, LNP-S, PF, 100 mcg/0.5mL dose or 50 mcg/0.25mL dose 1 completed Not Available [facility] 01/01/2023 16:06:44 COVID-19, mRNA, LNP-S, PF, 100 mcg/0.5mL dose or 50 mcg/0.25mL dose 1 completed Not Available [facility] 01/01/2023 16:06:44 COVID-19, mRNA, LNP-S, PF, 100 mcg/0.5mL dose or 50 mcg/0.25mL dose 1 completed Not Available [facility] 01/01/2023 16:06:44 Pneumococcal conjugate PCV20, polysaccharide HLH074 conjugate, adjuvant, PF 2 completed Not Available [facility] 01/01/2023 16:06:44 pneumococcal polysaccharide PPV23 1 completed Not Available [facility] 01/01/2023 16:06:44 pneumococcal polysaccharide PPV23 7 completed Not Available [facility] 01/01/2023 16:06:44 Influenza, split virus, quadrivalent, PF 9 completed Not Available [facility] 01/01/2023 16:06:44 Influenza, split virus, quadrivalent, PF 2 completed Not Available [facility] 01/01/2023 16:06:44 Influenza, split virus, quadrivalent, PF 8 completed Not Available [facility] 01/01/2023 16:06:44 influenza, unspecified formulation 4 completed Kary Rust null, [place] [facility] [place] & [place] 08/08/2024 13:51:39 Respiratory syncytial virus (RSV) MAB, unspecified 4 completed Araceli Velasquez null, [place] [facility] [place] & [place] 06/06/2024 09:21:15 Influenza, high-dose, quadrivalent, PF 3 completed Kary Rust null, [place] [facility] [place] & [place] 08/08/2024 13:51:39 RSV, recombinant, protein subunit RSVpreF, adjuvant reconstituted, 0.5 mL, PF 4 completed Kary H[place] Rust null, [place] [facility] [place] & [place] 08/08/2024 13:51:39 Influenza, high-dose, trivalent, PF 4 completed Kary Rust null, [place] [facility] [place] & [place] 08/08/2024 13:51:39 Past Encounters Encounter ID Performer Location Encounter Start Date Encounter Closed Date Diagnosis/Indication Diagnosis SNOMED-CT Code Diagnosis ICD10 Code Diagnosis Note [id number] Aden Husain, DNP, RECONSIGNMENT CLERK, HOSPICE MANAGER-C [facility] [address] [place] [address] 12/08/2024 08:48:35 12/08/2024 09:28:10 History of bariatric surgical procedure 606474218 Z98.84 Intentiona l weight loss 946565948 R63.8 History of gastrectomy 636478122 Z90.3 Advised qid intake 50% protein 7764-9362 calories/d y less than 100 carbs/dy Long [...] any vitamin deficienci es. At [facility] ed risk of nutritional deficit 823661569 Z91.89 Dyslipidemia 253926639 E 78.5 Hypertensive disorder 38 714247 I10 Overweight 008792002 E66 .3 Health Concerns Section Related Observation LastModified by Organization Detai ls LastModified Time None Recorded Concern Status LastModified by Organization Details LastModified Time None Recorded Payers Encounter Date Sequence Insurance Name Policy Number Policy Acosta Covered Member ID Acosta Member ID Guarantor Name 12/08/2024 2 [employer] (MEDICARE SUPPLEMENT) Maria Isabel Doran [id number] Maria Isabel Doran 12/08/2024 1 [place] Maria Isabel Doran [id number] Maria Isabel Doran Notes Date Note Type Note Provider Name and Address Organization Details Recorded Time 12/08/2024 text/html ROS as noted in the [...] = 1261 kilo calories Aden Husain, CAMMIE, RECONSIGNMENT CLERK, HOSPICE MANAGER-C [address], [place], [address], [facility] - [place] & [place] 12/08/2024 09:20:24 OBGyn Episode No OBEpisode recorded.
--- NOTE | 2025-02-01 11:17 | EXP.PAIN.SOA ---
[facility] Disclaimer: The information contained in this section may have been updated after the patient was seen, as this information can be updated by other users. Medical History (Updated 02/01/25 @ 11:19 by Latasha Martínez APRN) Degenerative disc disease, lumbar Elevated liver enzymes Vulvitis COVID-19 Palpitations Chronic respiratory failure Mood disorder Neck pain Ingrown nail of second toe of left foot Adjustment disorder with anxious mood Osteopenia after menopause Decreased sensation of lower extremity Keratosis BMI 40.0-44.9, adult BMI 38.0-38.9,adult Keratosis Sacroiliitis Low back pain Ingrown nail of great toe of left foot Ingrown nail of great toe of right foot Onychodystrophy COVID-19 Confused CAD (coronary artery disease) Tachycardia PARAG (obstructive sleep apnea) Memory Loss Dyspnea COPD mixed type Vertigo Screening for lung cancer COPD exacerbation HTN (hypertension) History of smoking 30 or more pack years History of 2019 novel coronavirus disease (COVID-19) Allergic rhinitis, unspecified Chronic obstructive pulmonary disease with acute respiratory distress Lung nodule Smoking greater than 30 pack years Dyspnea on exertion Chronic hypoxemic respiratory failure Respiratory symptoms Atypical angina Hypotension Carotid artery stenosis Diastolic dysfunction Chronic obstructive lung disease Hypertensive heart disease without heart failure Hyperlipidemia Coronary arteriosclerosis Surgical History Status post surgical removal of nail matrix of toe of right foot Status post surgical removal of nail matrix of toe of left foot Other specified postprocedural states History of gastric bypass Hx of tubal ligation Hx of appendectomy History of bladder suspension procedure Family History Other Asthma Cancer Coronary artery disease Diabetes Heart attack Hyperlipidemia Hypertension Thyroid disorder Social History Smoking Status: Former smoker tobacco type: cigarettes packs per day: 1 alcohol intake: never counseling provided: none substance use type: denies use current occupational status: other Travel in the last 8 weeks?: None household members: spouse housing: house caffeine: Yes PM Subjective & Objective Subjective Subjective:: Patient is a pleasant 69-year-old female who presents today for follow-up. Today she rates her pain a 0 out of 10 however does state here recently she did end up having a lot of back pain. She states that she ended up having to use a lot of her baclofen 10 mg 3 times a day that we prescribe and it did ease it up a little bit. Patient states she ultimately went to her doctor and had a kidney infection. Patient states that it was pretty significant and ended up doing at home antibiotics and had to come back every 2 days to retest. She ended up getting hospitalized with IV antibiotics and is just now really starting to feel better. Patient does make mention that her while she was hospitalized even ended up with a fall and fractured his forearm/elbow and is now recovering from that. Patient does state that she needs refills on her baclofen. Patient is still using her compounded cream and feels like this still helps. Her Michael has been reviewed and is appropriate.\ Review of Systems: General: No recent weight changes, no fever, no sleep disturbances Respiratory: No cough, no shortness of air, no recurring pulmonary infections Cardiovascular/peripheral vascular: No chest pain, no palpitations, no edema, no shortness of breath Gastrointestinal: No new onset incontinence, normal bowel movements reported Genitourinary: No new onset incontinence Musculoskeletal: Low back pain Psychiatric: [Normal mood/affect] Neurological: [Denies weakness in extremities], [denies balance issues] Pain at rest (0-10 scale): 0 Objective Objective:: Physical Exam: General: Alert and oriented x3, no acute distress, pleasant and cooperative Lungs: Respirations even and unlabored, symmetrical chest expansion Eyes: PERRL Musculoskeletal: Flexion and extension of lumbar [spine] somewhat guarded secondary to pain, [antalgic gait noted] Neurological: Speech clear, no gross sensory deficit Has patient had previous pain injection?: No Conservative treatment options previously tried: Home exercise plan Length of treatment: Longer than 12 weeks Meds Home Medications and Allergies Home Medications ?Medication ?Instructions ?Recorded ?Confirmed ?Type multivitamin 1 tab PO DAILY 11/22/17 01/18/25 History lamotrigine 150 mg tablet 150 mg PO BID 04/29/20 01/18/25 History oxybutynin chloride 10 mg 10 mg PO DAILY bladder 10/02/20 01/18/25 History tablet,extended release 24 hr venlafaxine 225 mg tablet,extended 225 mg PO DAILY 02/02/23 01/18/25 History release 24 hr calcium citrate 200 mg PO BID 03/26/23 01/18/25 History cholecalciferol (vitamin D3) 1,250 1,250 mcg PO DAILY 03/26/23 01/18/25 History mcg (50,000 unit) capsule pantoprazole 40 mg tablet,delayed 40 mg PO BID 09/02/23 01/18/25 History release trazodone 100 mg tablet 200 mg PO HS 09/02/23 01/18/25 History donepezil 10 mg tablet (Aricept) 10 mg PO HS 09/13/23 01/18/25 History atorvastatin 40 mg tablet 40 mg PO DAILY 11/17/23 01/18/25 History hydroxyzine HCl 10 mg tablet 10 mg PO DAILY 02/15/24 01/18/25 History hydroxyzine HCl 10 mg tablet 20 mg PO HS 05/26/24 01/18/25 History linaclotide 290 mcg capsule 290 mcg PO DAILY 05/26/24 01/18/25 History (Linzess) clobetasol 0.05 % topical ointment 1 applic topical BID 2 weeks #45 08/29/24 01/18/25 Rx grams montelukast 10 mg tablet 10 mg PO HS 11/02/24 01/18/25 History aspirin 81 mg tablet,delayed 81 mg PO DAILY 01/05/25 01/18/25 History release bisoprolol fumarate 5 mg tablet 5 mg PO DAILY 01/05/25 01/18/25 History denosumab 60 mg/mL subcutaneous 60 mg SQ [id number] 01/05/25 01/18/25 History syringe ezetimibe 10 mg tablet (Zetia) 10 mg PO DAILY 01/05/25 01/18/25 History fluticasone fur. 200 mcg-umeclid 1 ea inhalation DAILY 01/05/25 01/18/25 History 62.5 mcg-vilant 25 mcg inhalat.powder (Trelegy Ellipta) isosorbide mononitrate 30 mg 30 mg PO DAILY 01/05/25 01/18/25 History tablet,extended release 24 hr quetiapine 200 mg tablet 200 mg PO HS 01/05/25 01/18/25 History sumatriptan succinate 50 mg tablet 50 mg PO NEEDED PRN Migraine 01/06/25 01/18/25 Rx Headache #30 tabs valacyclovir 1 gram tablet 2,000 mg (2 x 1 gram) PO Q12H #4 01/06/25 01/18/25 Rx tabs New Prescriptions to Start Prescriptions: Allergies Allergy/AdvReac Type Severity Reaction Status Date / Time Penicillins Allergy Severe S-ANAPHYLAX Verified 01/18/25 14:46 IS milnacipran (From SAVELLA) Allergy Unknown Unknown Verified 01/18/25 14:46 allergy reaction Assessment and Plan *Assessment and plan (1) Degenerative disc disease, lumbar: Status: Acute Category: Medical Code(s): M51.369 - Other intervertebral disc degeneration, lumbar region without mention of lumbar back pain or lower extremity pain Plan I will refill the patient's baclofen and have her back in 1 month for reevaluation of symptoms and plan of care. Patient agrees with this. Patient has been instructed to contact the clinic with any concerns before the next appointment. Dr. Viramontes has reviewed this note and agrees with this plan of care. This note was dictated using voice recognition software and make contain errors or omissions. All injections are used with Lidocaine, Bupivacaine and dexamethasone. Occasionally urine drug screen is needed to verify patient's compliance with our office pain contract. This is ordered based off specific treatments related to chronic pain with the potential to abuse certain medications.
[2025-02-01 14:05] VITALS: BP 112/71; PULSE 69; RESP 18; O2SAT 98; BMI 23.6
== END 2025-02-01 23:59 | disposition home or self-care (01) ==
PROVIDERS: PCP Family Medicine; Visit Provider Nurse Practitioner Family
DX: M51.360 Other intervertebral disc degeneration, lumbar region with discogenic back pain only (principal); Z79.899 Other long term (current) drug therapy
CPT/HCPCS: 99212; G0463

== ENCOUNTER 2025-02-19 06:59 | Outpatient (CLI) | payer MEDICARE, SELFPAY ==
--- OUTSIDE RECORDS SUMMARY | 2025-01-04 09:45 | XMS_ITS ---
Author [facility] Address [address] [facility] [address] [place] [phone] Care Team Providers Care Front End Software Developer Name Role Phone Jeyson Benitez Primary [...] lamoTRIgine 150 MG TAKE 1 TABLET BY [facility] TWICE DAILY; Duration: 90 Active Calcium Citrate 150 MG 2 capsules Orally Once a day; Duration: 90 days Active hydrOXYzine HCl 10 MG as directed Orally Two times a day; Duration: 90 days Active Estrace 0.1 MG/GM 1 gm Vaginal 3 times per week 07/13/2024 Active traZODone HCl 100 MG TAKE 1 TABLET BY [facility] ONCE DAILY AT BEDTIME; Duration: 90 [...] 01/04/2025 Encounters Encounter Location Date Provider Diagnosis [facility] [address] [facility] [address], [place] [phone] 01/04/2025 R Foreign Benitez Pyelonephritis N12 Assessments [...] * BURT DORANOB:[birth year] (69 yo F)Acc No.[id number]:01/04/2025 Progress Notes Patient: WENDY ESCAMILLA Provider: Jeyson Benitez M.D. :1955 A ge:69 Y S ex:Female Date:01/04/2025 Address:[address] [place] [address] , [id number] Subjective: * Chief Complaints: * 1 . 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 Cath showed on [...] Ball 11/2020. * Hospitalization/Major Diagno stic Procedure: [facility] ER-diarrhea 03/2011, [facility] ER-back pain 06/2012, [facility]-heart attack 12/31/2014, [place] ER-constipation/impaction 09/2015, [place] ER-diarrhea 11/2015, [place] ER-Bronchitis 03/2018, Drs office in [place]-possible UTI, tested negative 12/2019. * Family History: F ather: . M other: alive. 2 brother(s) , 1 sister(s) . 1 son(s) , 1 daughter(s) . . * Social History: C URRENT TOBACCO USE S moking Status: P atient does NOT smoke quit after [place] 12/2014.?Caffeine: yes, frequency:. Home smoke detector use: [...] Information: * Visit Code: * Procedure Codes: 63658 Urinalysis, no micro. * Electronic signature of Jeyson Benitez MD on 02/19/2025 at 07:01 AM EDT Sign off status: Pending * Provider: Jeyson Benitez M.D. Date: 0 01/04/2025 Generated for Printi ng/Faxing/eTransmitting on: 0 02/19/2025 07:01 AM EDT History and Physical Notes * [...]
--- OUTSIDE RECORDS SUMMARY | 2025-01-16 05:45 | XMS_ITS ---
Author Organization [facility] Address [address] [facility] [address] [place] [id number] Care Team Providers Care Stroboroma Operator Name Role Phone Jeyson Benitez Primary [...] Interpretation: Performing Lab: Notes/Report: Test performed by [facility] [employer] [address] [place] [address] , [address], [place] [address] Tim Parrish MD, Fur Scraper CLIA: [id number] Specimen Source Urine - Void Culture, Urine [...] 100 MG TAKE 1 TABLET BY MO [email or web address] ONCE DAILY AT BEDTIME; Duration: 90 Active [...] Encounter Location Date Provider Diagnosis [facility] [address] [facility] 36 [facility] [address] [place] [id number] 01/16/2025 Jeyson Benitez Pyelonephritis N12 Assessments Encounter [...] * BURT DORANOB:[birth year] (69 yo F)Acc No.[id number]:01/16/2025 Patient: WENDY ESCAMILLA Provider: Jeyson Benitez M.D. :1955 A ge:69 Y S ex:Female Date:01/16/2025 Address:[address] [place] [address] , [id number] Subjective: * Chief Complaints: * 1 . F/U Hospital D/C. * HPI: H PI: She returns to follow-up on recent admission to [facility] for pyelonephritis. She completed a 7-day [...] 11/2020. * Hospitalization/Major Diagno stic Procedure: [facility] ER-diarrhea 03/2011, [facility] ER-back pain 06/2012, [facility]-heart attack 12/31/2014, [place] ER-constipation/impaction 09/2015, [place] ER-diarrhea 11/2015, [place] ER-Bronchitis 03/2018, Drs office in [place]-possible UTI, tested negative 12/2019. * Family History: [...] G 2211 Complex e/[place], [address] Urinalysis, no micro * Follow Up: v ia phone to report test results * Images: Billing Information: * Visit Code: 26940 Office Visit, Est Pt., Level 3. * Procedure Codes: G2211 Complex e[place]. [address] Urinalysis, no micro. * Electronic signature of Jeyson Benitez MD on 02/19/2025 at 07:02 AM EDT Sign off status: Pending * Provider: Jeyson Benitez M.D. Date: 0 01/16/2025 Generated for Elkin castillo/Aram/eTransmitting on: 0 02/19/2025 07:02 AM EDT History and Physical Notes * HPI (History of Present Illness) Category Sub-Category Detail Notes Category Not es HPI She returns to follow-up on recent admission to [facility] for pyelonephritis. She completed a 7-day [...]
--- OUTSIDE RECORDS SUMMARY | 2025-02-13 11:30 | XMS_ITS ---
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 Phone Jeyson Benitez Primary Care [...] 1.015 Ketone Neg Bili Neg Gluc Neg REASON FOR VISIT back ache, LT side [...] TABLET BY TWICE DAILY; Duration: 90 Active oxyBUTYnin Chloride [...] 02/13/2025 Encounters Encounter Location Date Provider Diagnosis [facility] [address] [facility] [address] [place], [place] [phone] 02/13/2025 R Foreign Benitez Pyelonephritis N12 Assessments Encounter Date Diagnosis (ICD Code) Assessment Notes Treatment Notes Treatment Clinical Notes Section Notes 02/13/2025 Pyelonephritis (ICD-10 - N12) Plan Of Treatment Pending Test Test Name Order Date CT Scan : Abd & Pelvis w/o contrast 11/2024 Next Appt Details Follow Up: after tests, Reas on: Progress Notes * BURT DORANOB:[birth year] (69 yo F)Acc No.[id number]:02/13/2025 Progress Notes Patient: WENDY ESCAMILLA Provider: Jeyson Benitez M.D. :1955 A ge:69 Y S ex:Female Date:02/13/2025 Address:[address] [place] [address] [address] , [id number] Subjective: * Chief Complaints: * 1 . 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 Cath showed on [...] Ball 11/2020. * Hospitalization/Major Diagno stic Procedure: [facility] ER-diarrhea 03/2011, [facility] ER-back pain 06/2012, [facility]-heart attack 12/31/2014, [place] ER-constipation/impaction 09/2015, [place] ER-diarrhea 11/2015, [place] ER-Bronchitis 03/2018, Drs office in [place]-possible UTI, tested negative 12/2019. * Family History: F ather: . M other: alive. 2 brother(s) , 1 sister(s) . 1 son(s) , 1 daughter(s) . . * Social History: C URRENT TOBACCO USE S moking Status: P atient does NOT smoke quit after MA 12/2014.?Caffeine: yes, frequency:. Home smoke detector use: [...] Temp: 97.6, BP: 110/76, HR: 57, Nurse: shona, Ht: 65, BMI:23.19. * Examination: G eneral [...] CT Scan : Abd & Pelvis w/o contrast* Evie Clark 02/14/2025 09:47 :44 AM EDT > no auth required; CPT code 62741; faxed to [facility] Scheduling * Procedure Codes: 8 1002 Urinalysis, no micro * Follow Up: a fter tests * Images: Billing Information: * Visit Code: 86668 Office Visit, Est Pt., Level 3. * Procedure Codes: 66319 Urinalysis, no micro. * Electronic signature of Jeyson Benitez MD on 02/19/2025 at 07:01 AM EDT Sign off status: Pending * Provider: Jeyson Benitez M.D. Date: 02/13/2025 Generated for Elkin castillo/Aram/Clem on: 02/19/2025 07:01 AM EDT History and Physical Notes * Examination Category Sub-Category Detail Notes Category Not es General Examination Heart: RSR Lungs: clear to auscultatio n Abdomen: Mild left CVA tender ness to percussion General Appearance: NAD
--- OUTSIDE RECORDS SUMMARY | 2025-02-19 07:02 | XMS_ITS | Patient Health Record ---
[facility] [address] [facility] [address] [place] [id number] Care Team Providers Care Die Maker Apprentice Name Role Phone Jeyson Benitez Primary Care Provider Sang Regan Unavailable [phone] Marlena Antonio Unavailable [phone] China Sánchez Unavailable [phone] Allergies Allergen (clinical drug ingredient) Drug/Non Drug Allergy documented on EMR Reaction Allergy Type Onset Date Status indomethacin Indomethacin disoriented Drug Allergy Active milnacipran Savella memory loss and excessive drowsiness Drug Allergy Active Penicillin anaphylaxis Drug Allergy Acti ve Results Component Value Reference Range Notes P-Lipid Panel Reviewed date:06/29/2024 04:17:23 PM Interpretation:Normal Performing Lab: Notes/Report: Test performed by [employer], [facility] [address] [place] [address] , [address], [place] [address] Tim Parrish MD, [facility] CLIA: [id number] Cholesterol 125 <200 mg/dL Triglycerides 82 <150 [...] Interpretation:Normal Performing Lab: Notes/Report: Test performed by [facility] [place] [address] Tim Parrish MD, [facility] CLIA: [id number] Iron 99 37-145 ug/dL P-Iron Binding Cap Reviewed date:06/29/2024 04:17:23 PM Interpretation:Normal Performing Lab: Notes/Report: Test performed by [facility] [address] [place] [address] [place] [address] Tim Parrish MD, [facility] CLIA: [id number] Iron Binding Cap 344 250-450 ug/dL P-Hemoglobin A1C Reviewed date:06/29/2024 04:17:23 PM Interpretation:Normal Performing Lab: Notes/Report: Test performed by [facility] [address] [place] [address] , [facility], [place] [address] Tim Parrish MD, [facility] CLIA: [id number] Hemoglobin A1C 5.4 <5.7 % The following HbA1c ranges recommended by the [place] [employer] (ADA) may be used as an aid in the diagnosis of diabetes mellitus. HbA1c Suggested Diagnosis >=6.5% Diabetic 5.7% - 6.4% Pre-Diabetic <5.7% Non-Diabetic P-T4 Free (thyroxine) Reviewed date:06/29/2024 04:17:23 PM Interpretation:Normal Performing Lab: Notes/Report: Test performed by [facility] [address] [place] [address] [place] [address] Tim Parrish MD, [facility] CLIA: [id number] Thyroxine Free (free T4) 0.94 0.86-1.76 ng/dL P-Ferritin Reviewed date:06/29/2024 04:17:23 PM Interpretation:Normal Performing Lab: Notes/Report: Test performed by [facility] [address] [place] [address] [place] [address] Tim Parrish MD, [facility] CLIA: [id number] Ferritin 25.1 13.0-301.0 ng/mL P-Selenium, Serum/Plasma Reviewed [...] developed and its performance characteristics determined by [facility]. It has not been cleared or approved by the US Food and Drug Administration. This test was performed in a CLIA certified laboratory and is intended for clinical purposes. Performed By: [facility] [address] [place], [place] [id number] [facility]: Cesar Arnold MD, PhD CLIA Number: [id number] P-Folate Reviewed date:06/29/2024 04:17:23 PM Interpretation:Normal Performing Lab: Notes/Report: Test performed by [email or web address] [address] , [address], [place] [address] Tim Parrish MD, Gas [facility] CLIA: [id number] Folate >20 >4.59 ng/mL P-Copper Reviewed date:06/29/2024 [...] developed and its performance characteristics determined by [facility]. It has not been cleared or approved by the US Food and Drug Administration. This test was performed in a CLIA certified laboratory and is intended for clinical purposes. Performed By: [facility] [address] [place] [address] [facility]: Cesar Arnold MD, PhD CLIA Number: [id number] P-Comprehensive Metabolic Pa suzanne (CMP) Reviewed date:06/29/2024 04:17:23 PM Interpretation:bun 28, alt 81, ast 51 Performing Lab: Notes/Report: Test performed by [facility] [address] [place] [address] , [address], [place] [address] Tim Parrish MD, [employer] [facility] CLIA: [id number] Sodium 139 135-145 mmol/L Potassium 4.9 3.5-5.3 [...] Interpretation:Normal Performing Lab: Notes/Report: Test performed by [facility] [address] [place] [address] , [address], [place] [address] Tim Parrish MD, [facility] CLIA: [id number] WBC 6.1 3.8-11.5 K/uL Red Blood Cell [...] K/uL Absolute Immature Granulocyte 0.02 0.00-0.03 K/uL Urinalysis - Inhouse Reviewed date:01/04/2025 11:41:11 PM Interpretation: Performing Lab: Notes/Report: Color/Clarity yellow Leuk trace Nitrite neg Urobili 3.2 Protein trace pH 5.5 Blood neg Sp. Gr. 1.020 Ketone neg Bili neg Gluc neg Glycohemoglobin A1c (in hous e) Reviewed date:06/29/2024 04:17:23 PM Interpretation:5.3% Normal Performing Lab: Notes/Report: 5.3% Normal glycohemoglobin 5.3% 5 - 6.5 % Urinalysis - Inhouse Reviewed date:02/14/2025 09:38:34 AM Interpretation: Performing Lab: Notes/Report: Color/Clarity yellow/clear Leuk Trace Nitrite Neg Urobili 3.2 Protein Neg pH 5.5 Blood Neg Sp. Gr. 1.015 Ketone Neg Bili Neg Gluc Neg CBC Fingerstick (in house) Reviewed date:07/13/2024 [...] Interpretation: Performing Lab: Notes/Report: Test performed by [employer], [address] , [place] [address] Tim Parrish MD, [facility] CLIA: [id number] Specimen Source Urine - Void Culture, Urine See Below See Microbiol ogy Report Escherichia coli ESBL 50,000-100,000 CFU /ml Escherichia coli ESBL This isolate is a confirmed ESBL (Extended Spectrum Beta-Lactamase) record producer and should be considered clinically resistant [...] 1.010 Ketone neg Bili neg Gluc neg CBC [...] - 38 plat 215 100 - 400 H-CBC Reviewed date:01/04/2025 11:41:11 PM Interpretation: Performing [...] GFRAA 101 >60 ML/MIN Delta: 76 on 01/04/25-1801 EGFR 83 >60 ml/min GLU 92 74-100 mg/dl Delta: 149 on 01/04/25 CA 8.5 8.4-10.2 mg/dl Urinalysis - Inhouse Reviewed date:07/13/2024 01:20:35 PM Interpretation: Performing Lab: Notes/Report: Color/Clarity yellow/clear Leuk Neg Nitrite 3.2 Urobili Neg Protein 6.0 pH Neg Blood 1.010 Sp. Gr. Neg Ketone Neg Bili Neg Gluc Neg Rapid Strep- Inhouse Reviewed date:07/13/2024 11:31:10 AM Interpretation: Performing Lab: Notes/Report: strep test Neg Influenza Screen (in house) Reviewed date:01/03/2025 12:11:45 [...] Interpretation:neg Performing Lab: Notes/Report: neg Result: neg H-Culture, Blood Reviewed date:01/29/2025 05:09:23 PM Interpretation: [...] 88 74-100 mg/dl CA 8.4 8.4-10.2 mg/dl P-Culture, Urine Reviewed date:01/02/2025 03:44:10 PM Interpretation:See duplicate order Performing Lab: Notes/Report: See duplicate order Miscell Ref Lab Test Reviewed date:06/29/2024 10:43:23 AM Interpretation: Normal Performing Lab: Notes/Report: Test Cancelled Test Cancelled Other P-MMA Serum/Plasma, Vitamin B12 Status Reviewed date:06/29/2024 04:17:23 PM Interpretation:Normal Performing Lab: Notes/Report: MMA Serum/Plasma, Vitamin B12 Status 0.15 0.00-0.40 umol/L INTERPRETIVE INFORMATION: MMA Serum/Plasma, Vitamin B12 Status This test was developed and its performance characteristics determined by [facility]. It has not been cleared or approved by the US Food and Drug Administration. This test was performed in a CLIA certified laboratory and is intended for clinical purposes. Performed By: [facility] [address] [place] [address] [facility]: Cesar Arnold MD, PhD CLIA Number: [id number] P-Prealbumin Reviewed date:06/29/2024 04:17:23 PM Interpretation:Normal Performing Lab: Notes/Report: Test performed by [facility] [address] [place], [place] [address] [place] , [address], [place] [address] Tim Parrish MD, [facility] CLIA: [id number] Prealbumin 21.0 20.0-40.0 mg/dL Percent Saturation Reviewed date:06/29/2024 04:17:23 PM Interpretation:Normal Performing Lab: Notes/Report: Test performed by [facility] [address] [place] [address] , [place] [address] Tim Parrish MD, [facility] CLIA: [id number] Percent Saturation 29 15-50 % P-TSH Reviewed date:06/29/2024 04:17:23 PM Interpretation:Normal Performing Lab: Notes/Report: Test performed by [facility] [address] [place] [address] Jennifer Cruz, [place] [address] Tim Parrish MD, [facility] CLIA: [id number] TSH 1.08 0.43-5.25 mU/L P-Vitamin A (Retinol), Serum Reviewed date:06/29/2024 04:17:23 PM Interpretation:Normal Performing Lab: Notes/Report: Test Cancelled Test Cancelled TNP - Incor rect Specimen. Unable to perform due to incorrect specimen submission P-Vitamin D 25-Hydroxy Reviewed date:06/29/2024 04:17:23 PM Interpretation:Normal Performing Lab: Notes/Report: Test performed by [facility] [address] [place] [address] Jennifer Cruz, [place] [address] Tim Parrish MD, [facility] CLIA: [id number] Vitamin D 25-Hydroxy 65.0 30.0-100.0 ng/mL Interpretation [...] analytical performance characteristics have been determined by [facility] [place]. It has not been cleared or approved by the U.S. Food and Drug Administration. This assay has been validated pursuant to the CLIA regulations and is used for clinical purposes. Test Performed By [facility] [place] , CLIA [id number] [facility] [address], Filipe Meier MD PhD Estimated Average Glucose Reviewed date:06/29/2024 04:17:23 PM Interpretation:Normal Performing Lab: Notes/Report: Test performed by [email or web address] [address] , [place] [address] Tim Parrish MD, Gas [facility] CLIA: [id number] Estimated Average Glucose (eAG) 108 Estimated Average [...] date:06/29/2024 10:43:05 AM Interpretation: Performing Lab: Notes/Report: Holter Monitor- 48 hour Reviewed date:08/15/2024 08:13:51 AM Interpretation:NSR Performing Lab: Notes/Report: NSR CBC Fingerstick (in house) Reviewed date:08/28/2024 08:12:23 [...] - 38 plat 256 100 - 400 Urinalysis - Inhouse Reviewed date:01/16/2025 01:06:05 PM Interpretation: Performing Lab: Notes/Report: Color/Clarity yellow/clear Leuk Neg Nitrite Neg Urobili 3.2 Protein Neg pH 5.5 Blood Neg Sp. Gr. 1.010 Ketone Neg Bili Neg Gluc Neg P-Culture, Urine Reviewed date:01/18/2025 02:40:55 PM Interpretation: Performing Lab: Notes/Report: Test performed by [employer], [facility] [address] [place] [address] , [address], [place] [address] Tim Parrish MD, [employer] [facility] CLIA: [id number] Specimen Source Urine - Void Culture, Urine See Below Final Report : No Significant Growth P-Vitamin B1 (Thiamine), Ser um/Plasma, LC/MS/MS Reviewed [...] developed and its performance characteristics determined by [facility]. It has not been cleared or approved by the US Food and Drug Administration. This test was performed in a CLIA certified laboratory and is intended for clinical purposes. Performed By: [facility] [address] [place] [address] [facility]: Cesar Arnold MD, PhD CLIA Number: [id number] Medications Medication SIG (Take, Route, Frequency, Duration) Notes Start Date End Date Status Nitroglycerin 0.4 MG 1 tab(s) sublingual ly q 5min prn x 3 Active SUMAtriptan Succinate 50 MG TAKE 1 TABLET BY MOUTH WITH ONSET OF HEADACHE. MAY REPEAT 1 TIME AFTER 2 HOURS. MAX 2 TABLETS IN 24 HOURS.; Duration: 12 days Active Vitamin D3 50 MCG (1999 UT) 1 tablet Orally Once a day; Duration: 30 day(s) Active Estrace 0.1 MG/GM 1 gm Vaginal 3 times per week 07/13/2024 Active Linzess 290 MCG 1 capsule at least 3 0 minutes before the first meal of the day on an empty stomach Orally Once a day; Duration: 30 day(s) Active traZODone HCl 100 MG TAKE 1 TABLET BY [facility] ONCE DAILY AT BEDTIME; Duration: 90 Active Baclofen 10 MG 1 tablet as needed O rally Twice a day Active Calcium Citrate 150 MG 2 capsules Orally Once a day; Duration: 90 days Active Flonase Allergy Relief 50 MCG/ACT 1 spray in each nostril Nasally Twice a day Active hydrOXYzine HCl 10 MG as directed Orally Two times a day; Duration: 90 days Active Venlafaxine HCl ER 225 MG 1 tablet with food Orally Once a day; Duration: 90 days Active Montelukast Sodium 10 MG 1 tablet Orally Once a day 02/29/2024 Active Isosorbide Dinitrate 30 MG 1 tablet Orally once daily; Duration: 90 days Active Macrodantin 100 MG 1 capsule at bedtime with food or milk Orally twice a day; Duration: 10 days 01/16/2025 Active QUEtiapine Fumarate ER 200 MG 1 tablet in the evening Orally Once a day Active Ezetimibe 10 MG 1 tablet Orally Once a day; Duration: 90 days Active Aspirin 81 MG 1 tab(s) orally once a day; Duration: 30 day(s) Active lamoTRIgine 150 MG TAKE 1 TABLET BY DVO TH TWICE DAILY; Duration: 90 Active Multivitamin - 1 tab(s) orally once a day w/ Iron Active Prolia 60 MG/ML as directed subcutaneously every 6 months; Duration: 12 month(s) Active oxyBUTYnin Chloride ER 10 MG TAKE 1 TABLET BY MOUTH ONCE DAILY; Duration: 90 days Active CareTouch CPAP & BIPAP Hose 1 DIRECTED Active Atorvastatin Calcium 20 MG TAKE 1 TABLET BY MOUTH ONCE DAILY; Duration: 90 days Active Pantoprazole Sodium 40 MG TAKE 1 TABLET BY MOUTH TWICE DAILY; Duration: 90 Active Immunizations Vaccine Route [...] W/U Status Risk Notes Problem Essential hypertension (52343309) Essential (primary) hypertension (I10) Active confirmed Problem History of circulatory system disease (362448881) History of ASCVD (Z86.79) Active confirmed Problem COPD - Chronic obstructive pulmonary disease (61168540) COPD (chronic obstructive pulmonary disease) (J44.9) Active confirmed Problem Acute exacerbation of chronic obstructive airways disease (668955982) COPD with exacerbation (J44.1) Active confirmed Problem Osteopenia (948842488) Osteopenia (M85.80) Active confirmed Problem Seasonal allergy (838098588) Seasonal allergies (J30.2) Active confirmed Problem Mixed anxiety and depressive disorder (559265844) Depression with anxiety (F41.8) Active confirmed Problem Overactive urinary bladder (disorder) (336796174) OAB (overactive bladder) (N32.81) Active confirmed Problem Memory loss (45953710) Memory loss (R41.3) Active confirmed Problem Fibromyalgia (793235808) Fibromyalgia (M79.7) Active confirmed Problem Vasomotor rhinitis (2017481) Vasomotor rhinitis (J30.0) Active confirmed Problem Irritable bowel syndrome with diarrhea (084802497) Irritable bowel syndrome with diarrhea (K58.0) Active confirmed Problem Migraine without aura, not refractory (387749082) Migraine without aura and without status migrainosus, not intractable (G43.009) Active confirmed Problem Atrophic vaginitis (50076882) Atrophic vaginitis (N95.2) Active confirmed Problem Sacroiliitis (14911305) Sacroiliitis (M46.1) Active confirmed Problem Dependence on supplemental oxygen (799820333655) Oxygen dependent (Z99.81) Active confirmed Problem Dyslipidemia (217724935) Dyslipidemia (E78.5) Active confirmed Problem Allergic rhinitis caused by pollen (03752713) Seasonal allergic rhinitis due to pollen (J30.1) Active confirmed Problem Degenerative disc disease (29451968) DDD (degenerative disc disease), lumbar (M51.36) Active confirmed Problem 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) Active confirmed Problem Malabsorption syndrome (11201279) Malabsorption due to intolerance, not elsewhere classified (K90.49) Active confirmed Problem Ex-tobacco user (finding) (659739372) Personal history of tobacco use (Z87.891) Active confirmed Problem Degeneration of thoracic intervertebral disc (61073229) DDD (degenerative disc disease), thoracic (M51.34) Active confirmed Vital Signs Heart Rate 57 /min 02/13/2025 Blood pressure diastolic 76 mm Hg 02/13/2025 Height 65 in 02/13/2025 Blood pressure systolic 110 mm Hg 02/13/2025 Weight 139.4 lbs 02/13/2025 BMI 23.19 kg/m2 02/13/2025 Encounters Encounter Location Date Provider Diagnosis [facility] [address] [facility] [address] [place] [id number] 02/29/2024 [facility] [place] Fibromyalgia M79.7 a nd Seasonal allergies J30.2 [facility] [address] [facility] [address] [place] [id number] 03/30/2024 [facility] [place] Vaginal yeast infect ion B37.31 and Abnormal thyroid function test R94.6 [facility] [address] [facility] [address] [place] [id number] 04/27/2024 [facility] [place] Seasonal allergies J30.2 and Fibromyalgia M79.7 [facility] [facility] [address] [place] [id number] 06/22/2024 [facility] [place] Fibromyalgia M79.7 ; Malabsorption due to intolerance, not elsewhere classified K90.49 ; Status post bariatric surgery Z98.84 ; Dyslipidemia E78.5 ; Vaginal yeast infection B37.31 and Hypoglycemia E16.2 [facility] [address] [facility] [address] [place] [id number] 06/26/2024 Sang [place] Malabsorption due to intolerance, not elsewhere classified K90.49 [facility] [facility] [address] [place] [id number] 07/13/2024 [facility] [place] URI (upper respirato ry infection) J06.9 and Atrophic vaginitis N95.2 [facility] [facility] [address] [place] [id number] 07/25/2024 [facility] [place] Palpitations R00.2 [facility] [facility] [facility] [address] [place], [place] [id number] 08/28/2024 Marlena Antonio Sinusitis J32.[address] [facility] [address] [facility] [address] [place], [place] [id number] 10/19/2024 [facility] [place] Acute bronchitis J20 .9 ; COPD (chronic obstructive pulmonary disease) J44.9 ; Dyslipidemia E78.5 ; Seasonal allergies J30.2 and BMI 24.0-24.9, adult Z68.24 [facility] [address] [facility] [address] [place], [place] [id number] 12/29/2024 China Crowdy Hypoxia R09.02 ; Dysuria R30.0 ; Chills R68.83 and BMI 24.0-24.9, adult Z68.24 [facility] [address] [facility] [address] [place] [id number] 12/30/2024 China Crowdy Dysuria R30.0 [facility] [address] [facility] [address] [place], [place] [id number] 01/02/2025 [facility] [place] Adult general medica l examination Z00.00 ; Flank pain, acute R10.10 ; Hematuria R31.9 ; Depression with anxiety F41.8 ; History of ASCVD Z86.79 ; Osteopenia M85.80 ; Personal history of tobacco use Z87.891 ; COPD (chronic obstructive pulmonary disease) J44.9 ; Essential (primary) hypertension I10 ; Seasonal allergies J30.2 ; Dyslipidemia E78.5 and BMI 24.0-24.9, adult Z68.24 [facility] [address] [facility] [address] [place], [place] [id number] 01/04/2025 [facility] [place] Pyelonephritis N12 [facility] [address] [facility] [address] [place], [place] [id number] 01/16/2025 R Foreign [place] Pyelonephritis N12 [facility] [address] [facility] [address] [place] [id number] 02/13/2025 R Foreign [place] Pyelonephritis N12 [facility] [address] [place], [place] [id number] 03/14/2024 R Foreign Emmanuel [facility] [address] [place] [id number] 05/24/2024 R [facility] [place] Seasonal allergies J30.2 [facility] [address] [place] [id number] 06/29/2024 R Foreign Emmanuel [facility] [address] [place] [id number] 07/03/2024 R Foreign Emmanuel [facility] [address] [place] [id number] 08/15/2024 R Foreign Emmanuel [facility] [address] [place] [id number] 08/15/2024 R Foreign Emmanuel [facility] [address] [place] [id number] 08/17/2024 R Foreign [place] Seasonal allergies J30.2 [facility] [address] [place] [id number] 10/31/2024 R Foreign Emmanuel [facility] [address] [place] [id number] 11/21/2024 R Foreign Emmanuel [facility] [address] [place] [id number] 01/02/2025 China Crowdy [facility] [address] [place] [id number] 01/02/2025 [facility] [place] [facility] [address] [place] [id number] 01/09/2025 R Foreign Emmanuel [facility] [address] [place] [id number] 01/18/2025 R Foreign Emmanuel [facility] [address] [place], [place] [id number] 01/22/2025 Jeyson Benitez Assessments Encounter Date Diagnosis (ICD Code) Assessment Notes Treatment Notes Treatment Clinical Notes Section Notes 02/29/2024 Seasonal allergies (ICD-10 - J30.2) Continue [...] oral antibiotics. Plan for direct admission to [facility] for IV fluids and IV antibiotics. 01/16/2025 Pyelonephritis (ICD-10 - N12) Will start oral Macrodantin based on her previous urine culture while awaiting repeat culture obtained today. 02/13/2025 Pyelonephritis (ICD-10 - N12) 01/02/2025 Hematuria (ICD-10 - R31.9) 10/19/2024 Dyslipidemia (ICD-10 - E78.5) 12/29/2024 Chills (ICD-10 - R68.83) 06/22/2024 Status post bariatric surgery (ICD-10 - Z98.84) 04/27/2024 Fibromyalgia (ICD-10 - M79.7) 06/22/2024 Dyslipidemia [...] : Abd & Pelvis w/o contrast 11/2024 P-Comprehensive Metabolic Panel (CMP) P-Lipid Panel 09/21/2023 Insurance Providers Payer Name Payer Address Payer Phone Subscriber Number Group Number Insured Name Patient Relationship to Insured Coverage Start Date Coverage End Date MEDICARE PART B [address] [address] [place] [address] [id number] WENDY DORAN Self - patient is the insured [facility] [address] [place] [address] [phone] [id number] WENDY DORAN Self - patient is the [...] Hospitalization History Reason Date(Month/Year) Drs office in [place]-possible UTI, te sted negative 12/2019 [place] [facility]-Bronchitis 03/2018 [place] [facility]-diarrhea 11/2015 [place] [facility]-constipation/impaction 2015 [facility]-heart attack 12/31/2014 [facility] ER-back pain 06/2012 [facility] ER-diarrhea 03/2011
--- OUTSIDE RECORDS SUMMARY | 2025-02-19 07:02 | XMS_ITS | Clinical Summary ---
Author Organization [facility] Address [address] [place] [address] Care Team Providers Care Hairspring Vibrator Name Role Phone Saul Benitez MD Primary Care Provider [phone]- [phone] Family History Medical History Relation Name Comments [...] of Treatment Not on file Care Teams Hairspring Vibrator Relationship Specialty Start Date End Date Saul Benitez MD [address] [place] [id number] PCP - General 11/22/20
--- NOTE | 2025-02-19 07:03 | CT_ITS ---
FINAL REPORT TECHNIQUE: Axial images through the abdomen and pelvis were performed without contrast.This study was performed with techniques to keep radiation doses as low as reasonably achievable, (ALARA). Individualized dose reduction techniques using automated exposure control or adjustment of mA and/or kV according to the patient's size were employed. CLINICAL HISTORY: PYELONEPHRITIS, left sided abd pain COMPARISON: 01/02/2025 FINDINGS: ABDOMEN: The lung bases are clear. The heart size is normal. Limited images of the liver are unremarkable. The spleen is normal. No adrenal mass is identified. The aorta is normal in caliber. There is no significant free fluid or adenopathy. There is no nephrolithiasis. There is no hydronephrosis. Again seen is a hypodense mass in the lower pole of the right kidney measuring 28 mm, unchanged. Postoperative changes of gastric bypass are noted. There is moderate fecal impaction. PELVIS: The appendix is not identified. Moderate fecal impaction. Uterus is normal for patient's age. The urinary bladder is unremarkable. There is trace free fluid. IMPRESSION: No evidence of upper urinary tract obstruction or stone disease. Redemonstration of indeterminate, lower pole right renal mass. Moderate fecal impaction. Reviewed, Interpreted and Dictated by Marie Kimball MD Transcribed by Minerva Gates Authenticated and . [facility]
== END 2025-02-19 23:59 | disposition home or self-care (01) ==
LOC: RAD 06:59
PROVIDERS: PCP Family Medicine; Visit Provider Family Medicine
DX: N12 Tubulo-interstitial nephritis, not specified as acute or chronic (principal); N28.89 Other specified disorders of kidney and ureter
CPT/HCPCS: 74176

== ENCOUNTER 2025-03-01 10:27 | Outpatient (POV) | payer MEDICARE, SELFPAY ==
--- OUTSIDE RECORDS SUMMARY | 2025-02-21 07:02 | XMS_ITS ---
Author Organization Jessica Address [address] [place] [phone] Care Team Providers Care Wheel Worker Name Role Phone Jeyson Benitez Primary Care Provider [phone] REASON FOR VISIT abnormal CT results Problems Problem Type SNOMED Code ICD Code Onset Dates Problem Status W/U Status Risk Notes Problem Renal mass (N28.89) Active confirmed Encounters Encounter Location Date Provider Diagnosis Jessica 1210 [facility] [address] [place] [phone] 02/21/2025 Jeyson Benitez Renal mass N28.89 Assessments Encounter Date Diagnosis (ICD Code) Assessment Notes Treatment Notes Treatment Clinical Notes Section Notes 02/21/2025 Renal mass (ICD-10 - N28.89) Plan Of Treatment Pending Test Test Name Order Date CT Scan : Abdomen and pelvis with IV con trast only 02/21/2025 Progress Notes * BURT DORANOB:[birth year] (69 yo F)Acc No.[id number]:02/21/2025 Patient: WENDY ESCAMILLA :1955 A ge:69 Y S ex:Female Address:[address] [place] [address] Subjective: * Chief Complaints: * a bnormal CT results * Medical History: * Surgical History: * Hospitalization/Major Diagno stic Procedure: * Medications: Objective: * Vitals: * Physical Examination: Assessment: * Assessment: 1. R enal mass - N28.89 (Primary) Plan: * Treatment: * Procedure Codes: * true * Date: Generated for Elkin castillo/Aram/Clem on: 0 03/01/2025 10:30 AM EDT
--- OUTSIDE RECORDS SUMMARY | 2025-02-22 05:00 | XMS_ITS ---
Author Organization [facility] Address [address] [place] [phone] Care Team Providers Care Factory Superintendent Name Role Phone Jeyson Benitez Primary Care Provider Work In, Schedule Unavailable Unavailable REASON FOR VISIT urine culture only Encounters Encounter Location Date Provider Diagnosis [facility] [address] [place] [phone] 02/22/2025 Schedule Work In Plan Of Treatment No Information Progress Notes * BURT DORANOB:[birth year] (69 yo F)Acc No.[id number]:02/22/2025 Patient: WENDY ESCAMILLA Provider: John mccabe Work In :1955 A ge:69 Y S ex:Female Date:02/22/2025 Address:[address] [id number] Pcp:Jeyson Benitez Subjective: * Chief Complaints: * 1 . Urine culture only. * Medical History: Objective: * Vitals: Assessment: Plan: * Treatment: * Images: Billing Information: * Visit Code: * Procedure Codes: * Electronic signature of Ale finch Work In on 03/01/2025 at 10:30 AM EDT Sign off status: Pending * Provider: John chedule Work In Date: 02/22/2025 Generated for Printi ng/Favalentinag/eTransmitting on: 0 03/01/2025 10:30 AM EDT
--- OUTSIDE RECORDS SUMMARY | 2025-02-26 06:15 | XMS_ITS ---
Author Organization [facility] Address [address] [facility] [address] [place], [place] [phone] Care Team Providers Care Patient Attendant Name Role Phone Jeyson Benitez Primary Care Provider [phone] Marlena Antonio Unavailable [phone] Allergies Allergen (clinical drug ingredient) Drug/Non Drug [...] Interpretation:3.5 Performing Lab: Notes/Report: Test performed by [employer], [facility] , [address], [place] [address] Tim Parrish MD, Kiln Furniture Saw Tender CLIA: [id number] Uric Acid 3.5 2.4-7.0 mg/dL Reason For [...] and gives away; 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 Ramila Oliveira Taylor, [...] 100 MG TAKE 1 TABLET BY MO [facility] ONCE DAILY AT BEDTIME; Duration: 90 [...] Status Risk Notes Problem Chronic respiratory failure with hypoxia (J96.11) Active confirmed Vital Signs Weight 144.4 lbs 02/26/2025 Blood pressure systolic 116 mm Hg 02/27/20 25 Blood pressure diastolic 60 mm Hg 025 Heart Rate 70 /min 02/26/2025 Height 65 in 02/26/2025 BMI 24.03 kg/m2 02/26/2025 Encounters Encounter Location Date Provider Diagnosis [facility] [address] [id number] 02/26/2025 Marlena Antonio Acute pain of left knee M25.562 ; Acute pain of left wrist M25.532 ; Chronic respiratory failure with hypoxia J96.11 and BMI 24.0-24.9, adult Z68.24 Assessments Encounter Date Diagnosis (ICD Code) Assessment Notes Treatment Notes Treatment Clinical Notes Section Notes 02/26/2025 Acute pain of left knee (ICD-10 - M25.562) discussed xray, MRI and orthoped referral; will do d4tbewhc at orOrt of her choice; she staes [...] xray, MRI and orthoped referral; [facility] she staes they always [...] * BURT DORANOB:[birth year] (69 yo F)Acc No.[id number]:02/26/2025 Progress Notes Patient: WENDY ESCAMILLA Provider: FAWN Wise :1955 A ge:69 Y S ex:Female Date:02/26/2025 Address:[address] [place] [address] , [place], [id number] Pcp:Jeyson Benitez Subjective: * Chief Complaints: * 1 . Arm & leg pain. * HPI: Mark nee/Ball: 69 year old female presents with [...] Ball 11/2020. * Hospitalization/Major Diagno stic Procedure: [facility] ER-diarrhea 03/2011, [facility] ER-back pain 06/2012, [facility]-heart attack 12/31/2014, [place] ER-constipation/impaction 09/2015, [place] ER-diarrhea 11/2015, [place] ER-Bronchitis 03/2018, [facility] office in [place]-possible UTI, tested negative 12/2019. * Family History: F ather: . M other: alive. 2 brother(s) , 1 sister(s) . 1 son(s) , 1 daughter(s) . . * Social History: C URRENT TOBACCO USE S moking Status: P atient does NOT smoke quit after [place] 12/2014.?Caffeine: [...] failure with hypoxia - J96.11 ?4. B [place] 24.0-24.9, adult - Z68.24 Plan: * Treatment: Value Reference Range U j carlos Acid 3.5 2.4-7.0 - mg/dL * Mario Antonioine 02/27/2025 02:33:11 PM EDT >I spoke with [...] Verónica Johnson 02/26/2025 1 2:48:57 PM EDT >Mario Antonioine 02/27/2025 02:33:47 PM EDT > Notes: discussed xray, MRI and orthoped referral; will do l3ekiekj at [facility] of [facility] choice; she staes they always [...] G 2211 Complex e/[place], [address] CBC WITH AUTO DIFF, 1036F TOBACCO NON-USER, G8783 BP SCR PRFRM RCMDD DEFIND SCR INTVL, G8752 MOST RECENT SYSTOLIC BP < 140MM HG, G8754 MOST RECENT DIASTOLIC BP < 90MM HG, G8420 BMI<30 AND >=22 CALC & DOCU * Follow Up: p rn * Images: Drawing:[facility] addendum 2024 Billing Information: * Visit Code: 73330 Office Visit, Est Pt., Level 3. * Procedure Codes: G2211 Complex e/[place]. [address] CBC WITH AUTO DIFF. 1036F TOBACCO NON-USER. G8783 BP SCR PRFRM RCMDD DEFIND SCR INTVL. G8752 MOST RECENT SYSTOLIC BP < 140MM HG. G8754 MOST RECENT DIASTOLIC BP < 90MM HG. G8420 BMI<30 AND >=22 CALC & DOCU. * Electronic signature of Rosa Antonio APRN on 03/01/2025 at 10:31 AM EDT Sign off status: Pending * Provider: FAWN Wise Date: 0 02/26/2025 Generated for Printi ng/Faadrien/eTransmitting on: 0 03/01/2025 10:31 AM EDT History and Physical Notes * [...]
--- OUTSIDE RECORDS SUMMARY | 2025-03-01 10:32 | XMS_ITS | Patient Health Record ---
Author Organization [facility] Address [address] [facility] [address] [place] [id number] Care Team Providers Care Working Foreman Name Role Phone Jeyson Benitez Primary Care Provider [phone] Sang Regan Unavailable [phone] Marlena Antonio Unavailable [phone] Work In, Schedule Unavailable Unavailable China Sánchez Unavailable [phone] Allergies Allergen (clinical drug ingredient) Drug/Non Drug Allergy documented on EMR Reaction Allergy Type Onset Date Status indomethacin Indomethacin disoriented Drug Allergy Active milnacipran Savella memory loss and excessive drowsiness Drug Allergy Active Penicillin anaphylaxis Drug Allergy Acti ve Results Component Value Reference Range Notes P-T4 Free (thyroxine) Reviewed date:06/29/2024 04:17:23 PM Interpretation:Normal Performing Lab: Notes/Report: Test performed by [facility] [address] [place], [place] [address] [address] , [address], [place] [address] Tim Parrish MD, Electronic Equipment Repairer CLIA: [id number] Thyroxine Free (free T4) 0.94 0.86-1.76 ng/dL P-Hemoglobin A1C Reviewed date:06/29/2024 04:17:23 PM Interpretation:Normal Performing Lab: Notes/Report: Test performed by [facility] [address], [place] [address] Tim Parrish MD, Electronic Equipment Repairer CLIA: [id number] Hemoglobin A1C 5.4 <5.7 % The following HbA1c ranges recommended by the [place] [employer] (ADA) may be used as an aid in the diagnosis of diabetes mellitus. HbA1c Suggested Diagnosis >=6.5% Diabetic 5.7% - 6.4% Pre-Diabetic <5.7% Non-Diabetic P-Iron Binding Cap Reviewed date:06/29/2024 04:17:23 PM Interpretation:Normal Performing Lab: Notes/Report: Test performed by [facility] [address] [place], [place] [address] [address] , [facility] [place] [address] Tim Parrish MD, Electronic Equipment Repairer CLIA: [id number] Iron Binding Cap 344 250-450 ug/dL P-Iron Reviewed date:06/29/2024 04:17:23 PM Interpretation:Normal Performing Lab: Notes/Report: Test performed by [facility] [address] [place] [address] [place]. [facility] [place] [address] Tim Parrish MD, Electronic Equipment Repairer CLIA: [id number] Iron 99 37-145 ug/dL P-Lipid Panel Reviewed date:06/29/2024 04:17:23 PM Interpretation:Normal Performing Lab: Notes/Report: Test performed by [facility] [address] [place] [address] [place] [address] Tim Parrish MD, Electronic Equipment Repairer CLIA: [id number] Cholesterol 125 <200 mg/dL Triglycerides 82 <150 [...] developed and its performance characteristics determined by [facility]. It has not been cleared or approved by the US Food and Drug Administration. This test was performed in a CLIA certified laboratory and is intended for clinical purposes. Performed By: [facility] [address] [place] [address] Electronic Equipment Repairer: Cesar Arnold MD, PhD CLIA Number: [id number] P-Prealbumin Reviewed date:06/29/2024 04:17:23 PM Interpretation:Normal Performing Lab: Notes/Report: Test performed by [facility], [address] , [address], [place] [address] Tim Parrish MD, Electronic Equipment Repairer CLIA: [id number] Prealbumin 21.0 20.0-40.0 mg/dL Percent Saturation Reviewed date:06/29/2024 04:17:23 PM Interpretation:Normal Performing Lab: Notes/Report: Test performed by [facility] [address] [place] [address] , [address], [place] [address] Tim Parrish MD, Electronic Equipment Repairer CLIA: [id number] Percent Saturation 29 15-50 % P-TSH Reviewed date:06/29/2024 04:17:23 PM Interpretation:Normal Performing Lab: Notes/Report: Test performed by [facility] [address] , [address], [place] [address] Tim Parrish MD, Electronic Equipment Repairer CLIA: [id number] TSH 1.08 0.43-5.25 mU/L P-Vitamin A (Retinol), Serum Reviewed date:06/29/2024 04:17:23 PM Interpretation:Normal Performing Lab: Notes/Report: Test Cancelled Test Cancelled TNP - Incor rect Specimen. Unable to perform due to incorrect specimen submission P-Vitamin D 25-Hydroxy Reviewed date:06/29/2024 04:17:23 PM Interpretation:Normal Performing Lab: Notes/Report: Test performed by [facility] [address] , [address], [place] [address] Tim Parrish MD, Electronic Equipment Repairer CLIA: [id number] Vitamin D 25-Hydroxy 65.0 30.0-100.0 ng/mL Interpretation [...] analytical performance characteristics have been determined by [facility] [place]. It has not been cleared or approved by the U.S. Food and Drug Administration. This assay has been validated pursuant to the CLIA regulations and is used for clinical purposes. Test Performed By [facility] , CLIA [id number] [facility] [address], Filipe Meier MD PhD Estimated Average Glucose Reviewed date:06/29/2024 04:17:23 PM Interpretation:Normal Performing Lab: Notes/Report: Test performed by [facility], [address] , [place] [address] Tim Parrish MD, Electronic Equipment Repairer CLIA: [id number] Estimated Average Glucose (eAG) 108 Estimated Average [...] or iron, eAG should not be evaluated. P-Uric Acid Reviewed date:02/27/2025 02:33:38 PM Interpretation:3.5 Performing Lab: Notes/Report: Test performed by [facility] [address] [place] [address] , [address], [place] [address] Tim Parrish MD, Electronic Equipment Repairer CLIA: [id number] Uric Acid 3.5 2.4-7.0 mg/dL CBC Venipuncture (in house) Reviewed date:02/27/2025 02:33:52 [...] - 38 platlet 255 100 - 400 P-Culture, Urine Reviewed date:01/18/2025 02:40:55 PM Interpretation: Performing Lab: Notes/Report: Test performed by [facility] [address] [place] [address] , [address], [place] [address] Tim Parrish MD, Electronic Equipment Repairer CLIA: [id number] Specimen Source Urine - Void Culture, Urine See Below Final Report : No Significant Growth Urinalysis - Inhouse Reviewed date:01/16/2025 01:06:05 PM Interpretation: Performing Lab: Notes/Report: Color/Clarity yellow/clear Leuk Neg Nitrite Neg Urobili 3.2 Protein Neg pH 5.5 Blood Neg Sp. Gr. 1.010 Ketone Neg Bili Neg Gluc Neg P-Culture, Urine Reviewed date:01/06/2025 08:21:23 PM Interpretation: Performing Lab: Notes/Report: Test performed by [facility] [address] [place] [address] , [address], [place] [address] Tim Parrish MD, Electronic Equipment Repairer CLIA: [id number] Specimen Source Urine - Void Culture, Urine See Below See Microbiol ogy Report Escherichia coli ESBL 50,000-100,000 CFU /ml Escherichia coli ESBL This isolate is a confirmed ESBL (Extended Spectrum Beta-Lactamase) writer producer and should be considered clinically resistant [...] 1.010 Ketone neg Bili neg Gluc neg Covid test (in house) Reviewed date:01/03/2025 12:11:45 [...] results neg CBC Fingerstick (in house) Reviewed date:10/19/2024 [...] - 38 plat 256 100 - 400 Holter Monitor- 48 hour [...] date:06/29/2024 10:43:05 AM Interpretation: Performing Lab: Notes/Report: P-Vitamin B1 (Thiamine), Ser um/Plasma, LC/MS/MS Reviewed [...] developed and its performance characteristics determined by [facility]. It has not been cleared or approved by the US Food and Drug Administration. This test was performed in a CLIA certified laboratory and is intended for clinical purposes. Performed By: [facility] [address] [place] [address] Electronic Equipment Repairer: Cesar Arnold MD, PhD CLIA Number: [id number] Urinalysis - Inhouse Reviewed date:01/04/2025 11:41:11 PM [...] Interpretation:Normal Performing Lab: Notes/Report: Test performed by [facility], [address] , [address], [place] [address] Tim Parrish MD, Electronic Equipment Repairer CLIA: [id number] WBC 6.1 3.8-11.5 K/uL Red Blood Cell [...] 51 Performing Lab: Notes/Report: Test performed by [facility], [address] , [address], [place] [address] Tim Parrish MD, Electronic Equipment Repairer CLIA: [id number] Sodium 139 135-145 mmol/L Potassium 4.9 3.5-5.3 [...] developed and its performance characteristics determined by [facility]. It has not been cleared or approved by the US Food and Drug Administration. This test was performed in a CLIA certified laboratory and is intended for clinical purposes. Performed By: [facility] [address] [place] [address] Electronic Equipment Repairer: Cesar Arnold MD, PhD CLIA Number: [id number] P-Folate Reviewed date:06/29/2024 04:17:23 PM Interpretation:Normal Performing Lab: Notes/Report: Test performed by [facility] [address] , [place] [address] Tim Parrish MD, Electronic Equipment Repairer CLIA: [id number] Folate >20 >4.59 ng/mL P-Selenium, Serum/Plasma Reviewed [...] developed and its performance characteristics determined by [facility]. It has not been cleared or approved by the US Food and Drug Administration. This test was performed in a CLIA certified laboratory and is intended for clinical purposes. Performed By: [facility] [address] [place] [address] Electronic Equipment Repairer: Cesar Arnold MD, PhD CLIA Number: [id number] P-Ferritin Reviewed date:06/29/2024 04:17:23 PM Interpretation:Normal Performing Lab: Notes/Report: Test performed by [facility], [address] , [place] [address] Tim Parrish MD, Electronic Equipment Repairer CLIA: [id number] Ferritin 25.1 13.0-301.0 ng/mL CT Scan : Abd & Pelvis w/o c ontrast Reviewed date:02/21/2025 11:03:18 AM Interpretation:indeterminate renal mass, moderate fecal impaction Performing Lab: Notes/Report: indeterminate renal mass, moderate fecal impaction Urinalysis - Inhouse Reviewed date:02/14/2025 09:38:34 AM Interpretation: Performing Lab: Notes/Report: Color/Clarity yellow/clear Leuk Trace Nitrite Neg Urobili 3.2 Protein Neg pH 5.5 Blood Neg Sp. Gr. 1.015 Ketone Neg Bili Neg Gluc Neg CT Scan : Abd and Pelvis, st one protocol Reviewed date:01/03/2025 12:11:45 PM Interpretation: Performing Lab: Notes/Report: P-Culture, Urine Reviewed date:01/02/2025 03:44:10 PM Interpretation:See duplicate order Performing Lab: Notes/Report: See duplicate order Urinalysis - Inhouse Reviewed date:01/02/2025 05:01:33 PM Interpretation: Performing Lab: Notes/Report: Color/Clarity yellow/cloudy Leuk 3+ Nitrite Neg Urobili 3.2 Protein 2+ pH 5.5 Blood 1+ Sp. Gr. 1.015 Ketone Trace Bili 1+ Gluc Neg CXR Reviewed date:01/02/2025 12:54:22 AM Interpretation: Performing Lab: Notes/Report: H-BMP Reviewed date:01/05/2025 08:49:49 AM Interpretation: Performing Lab: Notes/Report: NA 141 136-145 mmol/L K 3.7 3.5-5.1 mmoL/L CL 104 98-107 mmol/L CO2 29 22.0-30.0 mmol/L GAP 11.7 5-15 mEq/L BUN 21 7-17 mg/dl CREATT 0.70 0.52-1.04 mg/dl Delta: 0.90 on 01/04/25 CRCLE 58 50-200 mL/min GFRAA 101 >60 [...] 0.1 0-0.2 K/mm3 NRBC# 0 IG# 0.88 H-BMP Reviewed date:01/06/2025 08:21:23 PM Interpretation: Performing Lab: Notes/Report: NA 143 136-145 mmol/L K 3.9 3.5-5.1 mmoL/L CL 106 98-107 mmol/L CO2 28 22.0-30.0 mmol/L GAP 12.9 5-15 mEq/L BUN 18 7-17 mg/dl CREATT 0.70 0.52-1.04 mg/dl CRCLE 58 50-200 mL/min GFRAA 101 >60 ML/MIN EGFR 83 >60 ml/min GLU 88 74-100 mg/dl CA 8.4 8.4-10.2 mg/dl H-Culture, Blood Reviewed date:01/29/2025 05:09:23 PM Interpretation: [...] 1 0-3 % PLTE Normal RM Normal Medications Medication SIG (Take, Route, Frequency, Duration) Notes Start Date End Date Status Estrace 0.1 MG/GM 1 gm Vaginal 3 [...] MOUTH ONCE DAILY; Duration: 90 days Active Flonase Allergy Relief 50 MCG/ACT 1 spray in each nostril Nasally Twice a day Active Macrobid 100 MG 1 capsule with food Orally every 12 hrs 02/22/2025 Active Baclofen 10 MG 1 tablet as needed O rally Twice a day Active oxyBUTYnin Chloride ER 10 MG 1 tablet Orally Once a day; Duration: 90 days Active Linzess 290 MCG 1 capsule at least 3 0 minutes before the first meal of the day on an empty stomach Orally Once a day; Duration: 30 day(s) Active Vitamin D3 50 MCG (1999 UT) 1 tablet Orally Once a day; Duration: 30 day(s) Active lamoTRIgine 150 MG TAKE 1 TABLET BY TWICE DAILY; Duration: 90 Active Ezetimibe 10 MG 1 tablet Orally Once a day; Duration: 90 days Active Macrodantin 100 MG 1 capsule at bedtime with food or milk Orally twice a day; Duration: 10 days 01/16/2025 Active Montelukast Sodium 10 MG 1 tablet Orally Once a day 02/29/2024 Active Venlafaxine HCl ER 225 MG 1 tablet with food Orally Once a day; Duration: 90 days Active Nitroglycerin 0.4 MG 1 tab(s) sublingual ly q 5min prn x 3 Active Multivitamin - 1 tab(s) orally once a day w/ Iron Active CareTouch CPAP & BIPAP Hose 1 DIRECTED Active hydrOXYzine HCl 10 MG as directed Orally Two times a day; Duration: 90 days Active Calcium Citrate 150 MG 2 capsules Orally Once a day; Duration: 90 days Active traZODone HCl 100 MG TAKE 1 TABLET BY ONCE DAILY AT BEDTIME; Duration: 90 Active Prolia 60 MG/ML as directed subcutaneously every 6 months; Duration: 12 month(s) Active Aspirin 81 MG 1 tab(s) orally once a day; Duration: 30 day(s) Active QUEtiapine Fumarate ER 200 MG 1 tablet in the evening Orally Once a day Active Isosorbide Dinitrate 30 MG 1 tablet Orally once daily; Duration: 90 days Active Immunizations Vaccine Route [...] W/U Status Risk Notes Problem Essential hypertension (58399829) Essential (primary) hypertension (I10) Active confirmed Problem History of circulatory system disease (481718630) History of ASCVD (Z86.79) Active confirmed Problem COPD - Chronic obstructive pulmonary disease (18928697) COPD (chronic obstructive pulmonary disease) (J44.9) Active confirmed Problem Acute exacerbation of chronic obstructive airways disease (679398008) COPD with exacerbation (J44.1) Active confirmed Problem Osteopenia (765121006) Osteopenia (M85.80) Active confirmed Problem Seasonal allergy (110683681) Seasonal allergies (J30.2) Active confirmed Problem Renal mass (019818393) Renal mass (N28.89) Active confirmed Problem Mixed anxiety and depressive disorder (349563295) Depression with anxiety (F41.8) Active confirmed Problem Overactive urinary bladder (disorder) (361684687) OAB (overactive bladder) (N32.81) Active confirmed Problem Memory loss (28520914) Memory loss (R41.3) Active confirmed Problem Fibromyalgia (931840941) Fibromyalgia (M79.7) Active confirmed Problem Vasomotor rhinitis (3614357) Vasomotor rhinitis (J30.0) Active confirmed Problem Chronic respiratory failure (05652499) Chronic respiratory failure with hypoxia (J96.11) Active confirmed Problem Irritable bowel syndrome with diarrhea (967548377) Irritable bowel syndrome with diarrhea (K58.0) Active confirmed Problem Migraine without aura, not refractory (969185906) Migraine without aura and without status migrainosus, not intractable (G43.009) Active confirmed Problem Atrophic vaginitis (48514993) Atrophic vaginitis (N95.2) Active confirmed Problem Sacroiliitis (48097011) Sacroiliitis (M46.1) Active confirmed Problem Dependence on supplemental oxygen (836791925542) Oxygen dependent (Z99.81) Active confirmed Problem Dyslipidemia (722718506) Dyslipidemia (E78.5) Active confirmed Problem Allergic rhinitis caused by pollen (76947319) Seasonal allergic rhinitis due to pollen (J30.1) Active confirmed Problem Degenerative disc disease (33170424) DDD (degenerative disc disease), lumbar (M51.36) Active confirmed Problem 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) Active confirmed Problem Malabsorption syndrome (74862215) Malabsorption due to intolerance, not elsewhere classified (K90.49) Active confirmed Problem Ex-tobacco user (finding) (035109874) Personal history of tobacco use (Z87.891) Active confirmed Problem Degeneration of thoracic intervertebral disc (53984312) DDD (degenerative disc disease), thoracic (M51.34) Active confirmed Vital Signs Heart Rate 70 /min 02/26/2025 Blood pressure diastolic 60 mm Hg 02/26/2025 Height 65 in 02/26/2025 Blood pressure systolic 116 mm Hg 02/26/2025 Weight 144.4 lbs 02/26/2025 BMI 24.03 kg/m2 02/26/2025 Encounters Encounter Location Date Provider Diagnosis [facility] [address] [place] [id number] 03/30/2024 R Foerign Benitez Vaginal yeast infect ion B37.31 and Abnormal thyroid function test R94.6 [facility] [address] [place], [place] [id number] 04/27/2024 R Foreign Emmanuel Seasonal allergies J30.2 and Fibromyalgia M79.7 [facility] [address] [facility] [address] [place], [place] [id number] 06/22/2024 R Foreign Emmanuel Fibromyalgia M79.7 ; Malabsorption due to intolerance, not elsewhere classified K90.49 ; Status post bariatric surgery Z98.84 ; Dyslipidemia E78.5 ; Vaginal yeast infection B37.31 and Hypoglycemia E16.2 [facility] [address] [facility] [address] [place], [place] [id number] 06/26/2024 Sang Lockney Malabsorption due to intolerance, not elsewhere classified K90.49 [facility] [address] [facility] [address] [place], [place] [id number] 07/13/2024 R Foreign Emmanuel URI (upper respirato ry infection) J06.9 and Atrophic vaginitis N95.2 [facility] [address] [facility] [address] [place], [place] [id number] 07/25/2024 R Foreign Emmanuel Palpitations R00.2 [facility] [address] [facility] [address] [place], [place] [id number] 08/28/2024 Marlena Antonio Sinusitis J32.9 and Papules R23.8 [facility] [address] [facility] [address] [place], [place] [id number] 10/19/2024 R Foreign Emmanuel Acute bronchitis J20 .9 ; COPD (chronic obstructive pulmonary disease) J44.9 ; Dyslipidemia E78.5 ; Seasonal allergies J30.2 and BMI 24.0-24.9, adult Z68.24 [facility] [address] [facility] [address] [place], [place] [id number] 12/29/2024 China Crowdy Hypoxia R09.02 ; Dysuria R30.0 ; Chills R68.83 and BMI 24.0-24.9, adult Z68.24 [facility] [address] [facility] [address] [place], [place] [id number] 12/30/2024 China Crowdy Dysuria R30.0 [facility] [address] [facility] [address] [place], [place] [id number] 01/02/2025 R Foreign Emmanuel Adult general medica l examination Z00.00 ; Flank pain, acute R10.10 ; Hematuria R31.9 ; Depression with anxiety F41.8 ; History of ASCVD Z86.79 ; Osteopenia M85.80 ; Personal history of tobacco use Z87.891 ; COPD (chronic obstructive pulmonary disease) J44.9 ; Essential (primary) hypertension I10 ; Seasonal allergies J30.2 ; Dyslipidemia E78.5 and BMI 24.0-24.9, adult Z68.24 [facility] [address] [facility] [address] [place], [place] [id number] 01/04/2025 R Foreign Emmanuel Pyelonephritis N12 [facility] [address] [facility] [address] [place], [place] [id number] 01/16/2025 R Foreign Emmanuel Pyelonephritis N12 [facility] [address] [facility] [address] [place], [place] [id number] 02/13/2025 R Foreign Emmanuel Pyelonephritis N12 [facility] [address] [facility] [address] [place] [id number] 02/22/2025 [facility] [address] [facility] [address] [place], [place] [id number] 02/26/2025 Marlena Antonio Acute pain of left k nee M25.562 ; Acute pain of left wrist M25.532 ; Chronic respiratory failure with hypoxia J96.11 and BMI 24.0-24.9, adult Z68.24 [facility] [address] [facility] [address] [place], [place] [id number] 03/14/2024 R Foreign Emmanuel [facility] [address] [facility] [address] [place], [place] [id number] 05/24/2024 R Foreign Emmanuel Seasonal allergies J30.2 [facility] [address] [facility] [address] [place], [place] [id number] 06/29/2024 R Foreign Emmanuel [facility] [address] [place] [id number] 07/03/2024 R Foreign Emmanuel [facility] [address] [place], [place] [id number] 08/15/2024 R Foreign Emmanuel [facility] [address] [place] [id number] 08/15/2024 R Foreign Emmanuel [facility] [address] [place] [id number] 08/17/2024 R Foreign Emmanuel Seasonal allergies J30.2 [facility] [address] [place], [place] [id number] 10/31/2024 R Foreign Emmanuel [facility] [address] [place] [id number] 11/21/2024 R Foreign Emmanuel [facility] [address] [place] [id number] 01/02/2025 China Liondy [facility] [address] [place] [id number] 01/02/2025 R Foreign Emmanuel [facility] [address] [place] [id number] 01/09/2025 R Foreign Emmanuel [facility] [address] [place] [id number] 01/18/2025 R Foreign Emmanuel [facility] [address] [place] [id number] 01/22/2025 R Foreign Emmanuel [facility] [address] [place] [id number] 02/21/2025 R Foreign Emmanuel Renal mass N28.89 [facility] [address] [place] [id number] 02/22/2025 R Foreign Emmanuel Assessments Encounter Date Diagnosis (ICD Code) Assessment Notes Treatment Notes Treatment Clinical Notes Section Notes 03/30/2024 Abnormal thyroid function test (ICD-10 - [...] oral antibiotics. Plan for direct admission to [facility] for IV fluids and IV antibiotics. 01/16/2025 Pyelonephritis (ICD-10 - N12) Will start oral Macrodantin based on her previous urine culture while awaiting repeat culture obtained today. 02/13/2025 Pyelonephritis (ICD-10 - N12) 02/21/2025 Renal mass (ICD-10 - N28.89) 02/26/2025 Acute pain of left knee (ICD-10 - M25.562) discussed xray, MRI and orthoped referral; will [id number]; she staes they always do Xray and can scheduled MRI if needed; encouraged use of cane and/or walker for steadiness and fall prevention 02/26/2025 Acute pain of left wrist (ICD-10 - M25.532) will check for gout; wrist splint; orthoped referral 02/26/2025 Chronic respiratory failure with hypoxia (ICD-10 - J96.11) 01/02/2025 Hematuria (ICD-10 - R31.9) 10/19/2024 Dyslipidemia (ICD-10 - E78.5) 12/29/2024 Chills (ICD-10 - R68.83) 06/22/2024 Status post bariatric surgery (ICD-10 - Z98.84) 04/27/2024 Fibromyalgia (ICD-10 - M79.7) 06/22/2024 Dyslipidemia (ICD-10 - E78.5) 12/29/2024 BMI 24.0-24.9, adult (ICD-10 - Z68.24) 10/19/2024 Seasonal allergies (ICD-10 - J30.2) 01/02/2025 Depression with anxiety (ICD-10 - F41.8) 02/26/2025 BMI 24.0-24.9, adult (ICD-10 - Z68.24) 01/02/2025 History of ASCVD (ICD-10 - Z86.79) [...] pelvis with IV con trast only 02/21/2025 P-Comprehensive Metabolic Panel (CMP) P-Lipid Panel 09/21/2023 Insurance Providers Payer Name Payer Address Payer Phone Subscriber Number Group Number Insured Name Patient Relationship to Insured Coverage Start Date Coverage End Date MEDICARE PART B [address] [address] [place] [address] [id number] WENDY DORAN Self - patient is the insured [facility] [employer] [address] [place] [id number] WENDY DORAN Self - patient is the insured Medications Administered Medication Instructions Date of Administration Dosage Notes Dexamethasone 06/28/2018 1 mL Dexamethasone 05/02/2019 1 mL Dexamethasone 02/10/2022 1 mL Dexamethasone 06/09/2022 1 mL Phenergan 12.5 mgs. 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 Ca th showed [...] 12/2019 [place] [facility]-Bronchitis 03/2018 [place] [facility]-diarrhea 11/2015 [place] [facility]-constipation/impaction 2015 [facility]-heart attack 12/31/2014 [facility] ER-back pain 06/2012 [facility] ER-diarrhea 03/2011
--- OUTSIDE RECORDS SUMMARY | 2025-03-01 10:32 | XMS_ITS | Clinical Summary ---
Author Organization [facility] Address [address] [place] [address] Care Team Providers Care Circulator Name Role Phone Saul Benitez MD Primary Care Provider [phone]- [phone] Family History Medical History Relation Name Comments [...] of Treatment Not on file Care Teams Circulator Relationship Specialty Start Date End Date Saul Benitez MD [address] [place] [id number] PCP - General 11/22/20
[2025-03-01 11:03] VITALS: BP 98/62; PULSE 72; RESP 14; O2SAT 95; BMI 24.3
--- NOTE | 2025-03-01 11:32 | EXP.PAIN.SOA ---
[facility] Disclaimer: The information contained in this section may have been updated after the patient was seen, as this information can be updated by other users. Medical History (Updated 02/28/25 @ 18:16 by Kim Glover MD) Chronic hypoxemic respiratory failure Degenerative disc disease, lumbar Elevated liver enzymes Vulvitis COVID-19 Palpitations Chronic respiratory failure Mood disorder Neck pain Ingrown nail of second toe of left foot Adjustment disorder with anxious mood Osteopenia after menopause Decreased sensation of lower extremity Keratosis BMI 40.0-44.9, adult BMI 38.0-38.9,adult Keratosis Sacroiliitis Low back pain Ingrown nail of great toe of left foot Ingrown nail of great toe of right foot Onychodystrophy COVID-19 Confused CAD (coronary artery disease) Tachycardia PARAG (obstructive sleep apnea) Memory Loss Dyspnea COPD mixed type Vertigo Screening for lung cancer COPD exacerbation HTN (hypertension) History of smoking 30 or more pack years History of 2019 novel coronavirus disease (COVID-19) Allergic rhinitis, unspecified Chronic obstructive pulmonary disease with acute respiratory distress Lung nodule Smoking greater than 30 pack years Dyspnea on exertion Respiratory symptoms Atypical angina Hypotension Carotid artery stenosis Diastolic dysfunction Chronic obstructive lung disease Hypertensive heart disease without heart failure Hyperlipidemia Coronary arteriosclerosis Surgical History Status post surgical removal of nail matrix of toe of right foot Status post surgical removal of nail matrix of toe of left foot Other specified postprocedural states History of gastric bypass Hx of tubal ligation Hx of appendectomy History of bladder suspension procedure Family History Other Asthma Cancer Coronary artery disease Diabetes Heart attack Hyperlipidemia Hypertension Thyroid disorder Social History Smoking Status: Former smoker tobacco type: cigarettes packs per day: 1 alcohol intake: never counseling provided: none substance use type: denies use current occupational status: other Travel in the last 8 weeks?: None household members: spouse housing: house caffeine: Yes PM Subjective & Objective Subjective Subjective:: Patient is a pleasant 69-year-old female who presents today for 1 month follow-up. She rates her pain today a 2 out of 10. She does state this is still at her low back and that she is still going through the process of getting her kidneys checked out. Patient is scheduled for a CT scan if she believes her right kidney coming up. She denies any other changes from her last appointment. She is managed with baclofen from our office and denies any side effects. She does state that the 10 mg 3 times a day is very beneficial. Her Michael has been reviewed and is appropriate. Review of Systems: General: No recent weight changes, no fever, no sleep disturbances Respiratory: No cough, no shortness of air, no recurring pulmonary infections Cardiovascular/peripheral vascular: No chest pain, no palpitations, no edema, no shortness of breath Gastrointestinal: No new onset incontinence, normal bowel movements reported Genitourinary: No new onset incontinence Musculoskeletal: Low back pain Psychiatric: [Normal mood/affect] Neurological: [Denies weakness in extremities], [denies balance issues] Pain at rest (0-10 scale): 2 Objective Objective:: Physical Exam: General: Alert and oriented x3, no acute distress, pleasant and cooperative Lungs: Respirations even and unlabored, symmetrical chest expansion Eyes: PERRL Musculoskeletal: Flexion and extension of lumbar [spine] within normal limits Neurological: Speech clear, no gross sensory deficit Has patient had previous pain injection?: No Conservative treatment options previously tried: Home exercise plan Length of treatment: Longer than 12 weeks Meds Home Medications and Allergies Home Medications ?Medication ?Instructions ?Recorded ?Confirmed ?Type multivitamin 1 tab PO DAILY 11/22/17 03/01/25 History lamotrigine 150 mg tablet 150 mg PO BID 04/29/20 03/01/25 History oxybutynin chloride 10 mg 10 mg PO DAILY bladder 10/02/20 03/01/25 History tablet,extended release 24 hr venlafaxine 225 mg tablet,extended 225 mg PO DAILY 02/02/23 03/01/25 History release 24 hr calcium citrate 200 mg PO BID 03/26/23 03/01/25 History cholecalciferol (vitamin D3) 1,250 1,250 mcg PO DAILY 03/26/23 03/01/25 History mcg (50,000 unit) capsule pantoprazole 40 mg tablet,delayed 40 mg PO BID 09/02/23 03/01/25 History release trazodone 100 mg tablet 200 mg PO HS 09/02/23 03/01/25 History donepezil 10 mg tablet (Aricept) 10 mg PO HS 09/13/23 03/01/25 History hydroxyzine HCl 10 mg tablet 10 mg PO DAILY 02/15/24 03/01/25 History hydroxyzine HCl 10 mg tablet 20 mg PO HS 05/26/24 03/01/25 History linaclotide 290 mcg capsule 290 mcg PO DAILY 05/26/24 03/01/25 History (Linzess) clobetasol 0.05 % topical ointment 1 applic topical BID 2 weeks #45 08/29/24 03/01/25 Rx grams montelukast 10 mg tablet 10 mg PO HS 11/02/24 03/01/25 History aspirin 81 mg tablet,delayed 81 mg PO DAILY 01/05/25 03/01/25 History release bisoprolol fumarate 5 mg tablet 5 mg PO DAILY 01/05/25 03/01/25 History denosumab 60 mg/mL subcutaneous 60 mg SQ [id number] 01/05/25 03/01/25 History syringe ezetimibe 10 mg tablet (Zetia) 10 mg PO DAILY 01/05/25 03/01/25 History isosorbide mononitrate 30 mg 30 mg PO DAILY 01/05/25 03/01/25 History tablet,extended release 24 hr quetiapine 200 mg tablet 200 mg PO HS 01/05/25 03/01/25 History sumatriptan succinate 50 mg tablet 50 mg PO NEEDED PRN Migraine 01/06/25 03/01/25 Rx Headache #30 tabs valacyclovir 1 gram tablet 2,000 mg (2 x 1 gram) PO Q12H #4 01/06/25 03/01/25 Rx tabs baclofen 10 mg tablet 10 mg PO TID #90 tabs 02/01/25 03/01/25 Rx atorvastatin 20 mg tablet 20 mg PO DAILY 02/12/25 03/01/25 History terconazole 0.4 % vaginal cream 1 appful vaginal HS 7 days #45 02/19/25 03/01/25 Rx grams New Prescriptions to Start Prescriptions: Allergies Allergy/AdvReac Type Severity Reaction Status Date / Time Penicillins Allergy Severe S-ANAPHYLAX Verified 02/28/25 14:29 IS milnacipran (From S[facility]LLA) Allergy Unknown Unknown Verified 02/28/25 14:29 allergy reaction Assessment and Plan *Assessment and plan (1) Degenerative disc disease, lumbar: Status: Acute Category: Medical Code(s): M51.369 - Other intervertebral disc degeneration, lumbar region without mention of lumbar back pain or lower extremity pain Plan Patient is still doing really well overall and does not require any additional injection therapy. I will make sure that she has refills on her baclofen and have her follow back up in 3 months. Patient has been instructed to contact the clinic with any concerns before the next appointment. Dr. Viramontes has reviewed this note and agrees with this plan of care. This note was dictated using voice recognition software and make contain errors or omissions. All injections are used with Lidocaine, Bupivacaine and dexamethasone. Occasionally urine drug screen is needed to verify patient's compliance with our office pain contract. This is ordered based off specific treatments related to chronic pain with the potential to abuse certain medications.
== END 2025-03-01 23:59 | disposition home or self-care (01) ==
PROVIDERS: PCP Family Medicine; Visit Provider Nurse Practitioner Family
DX: M51.360 Other intervertebral disc degeneration, lumbar region with discogenic back pain only (principal); Z79.899 Other long term (current) drug therapy
CPT/HCPCS: 99212; G0463

== ENCOUNTER 2025-03-05 07:26 | Outpatient (CLI) | payer MEDICARE, SELFPAY ==
--- OUTSIDE RECORDS SUMMARY | 2025-02-21 07:02 | XMS_ITS ---
Author Organization Jessica Address [address] [place] [phone] Care Team Providers Care Analytical Research Chemist Name Role Phone Jeyson Benitez Primary Care Provider [phone] REASON FOR VISIT abnormal CT results Problems Problem Type SNOMED Code ICD Code Onset Dates Problem Status W/U Status Risk Notes Problem Renal mass (N28.89) Active confirmed Encounters Encounter Location Date Provider Diagnosis [facility]10 [facility] [address] [place] [phone] 02/21/2025 Jeyson Benitez Renal mass N28.89 Assessments Encounter Date Diagnosis (ICD Code) Assessment Notes Treatment Notes Treatment Clinical Notes Section Notes 02/21/2025 Renal mass (ICD-10 - N28.89) Plan Of Treatment Pending Test Test Name Order Date CT Scan : Abdomen and pelvis with IV con trast only 02/21/2025 Progress Notes * BURT DORANOB:[birth year] (69 yo F)Acc No.[id number]:02/21/2025 Patient: WENDY ESCAMILLA :1955 A ge:69 Y S ex:Female Address:[address] [place] [address] Subjective: * Chief Complaints: * a bnormal CT results * Medical History: * Surgical History: * Hospitalization/Major Diagno stic Procedure: * Medications: Objective: * Vitals: * Physical Examination: Assessment: * Assessment: 1. R enal mass - N28.89 (Primary) Plan: * Treatment: * Procedure Codes: * true * Date: Generated for Elkin castillo/Aram/Clem on: 0 03/05/2025 07:28 AM EDT
--- OUTSIDE RECORDS SUMMARY | 2025-02-22 05:00 | XMS_ITS ---
Author Organization [facility] Address [address] [place] [phone] Care Team Providers Care Shank Cutter Name Role Phone Jeyson Benitez Primary Care Provider [phone] Work In, Schedule Unavailable Unavailable REASON FOR VISIT urine culture only Encounters Encounter Location Date Provider Diagnosis [facility] [address] [place] [phone] 02/22/2025 Schedule Work In Plan Of Treatment No Information Progress Notes * BURT DORANOB:[birth year] (69 yo F)Acc No.[id number]:02/22/2025 Patient: WENDY ESCAMILLA Provider: John mccabe Work In :1955 A ge:69 Y S ex:Female Date:02/22/2025 Address:[address] [id number] Pcp:Jeyson Benitez Subjective: * Chief Complaints: * 1 . Urine culture only. * Medical History: Objective: * Vitals: Assessment: Plan: * Treatment: * Images: Billing Information: * Visit Code: * Procedure Codes: * Electronic signature of Ale finch Work In on 03/05/2025 at 07:28 AM EDT Sign off status: Pending * Provider: John chedule Work In Date: 02/22/2025 Generated for Printi ng/Favalentinag/eTransmitting on: 0 03/05/2025 07:28 AM EDT
--- OUTSIDE RECORDS SUMMARY | 2025-02-26 06:15 | XMS_ITS ---
Author Organization [facility] Address [address] [facility] [address] [place], [place] [phone] Care Team Providers Care Slabber Light Name Role Phone Jeyson Benitez Primary Care Provider Marlena Antonio Unavailable [phone] Allergies Allergen (clinical drug ingredient) Drug/Non Drug [...] Interpretation:3.5 Performing Lab: Notes/Report: Test performed by [employer], [employer] [facility]0 [facility] , [address], [place] [address] Tim Parrish MD, Manager Planning CLIA: [id number] Uric Acid 3.5 2.4-7.0 mg/dL Reason For [...] and gives away; 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 Ramila Oliveira Taylor, [...] 100 MG TAKE 1 TABLET BY MO [facility] ONCE DAILY AT BEDTIME; Duration: 90 [...] Encounter Location Date Provider Diagnosis [facility] [address] [id number] 02/26/2025 Marlena Antonio Acute pain of left knee M25.562 ; Acute pain of left wrist M25.532 ; Chronic respiratory failure with hypoxia J96.11 and BMI 24.0-24.9, adult Z68.24 Assessments Encounter Date Diagnosis (ICD Code) Assessment Notes Treatment Notes Treatment Clinical Notes Section Notes 02/26/2025 Acute pain of left knee (ICD-10 - M25.562) discussed xray, MRI and orthoped referral; will do e3quhabm at orOrt of her choice; she staes [...] xray, MRI and orthoped referral; [facility] she staes they always [...] * BURT DORANOB:[birth year] (69 yo F)Acc No.[id number]:02/26/2025 Progress Notes Patient: WENDY ESCAMILLA Provider: FAWN Wise :1955 A ge:69 Y S ex:Female Date:02/26/2025 Address:[address] [place] [address] , [place], [id number] Pcp:Jeyson Benitez Subjective: * Chief Complaints: * [...] Ball 11/2020. * Hospitalization/Major Diagno stic Procedure: [facility] ER-diarrhea 03/2011, [facility] ER-back pain 06/2012, [facility]-heart attack 12/31/2014, [place] ER-constipation/impaction 09/2015, [place] ER-diarrhea 11/2015, [place] ER-Bronchitis 03/2018, [facility] office in [place]-possible UTI, tested negative 12/2019. * Family History: [...] failure with hypoxia - J96.11 ?4. B [place] 24.0-24.9, adult - Z68.24 Plan: * Treatment: [...] xray, MRI and orthoped referral; will do a2afomlg at [facility] of her choice; she staes they always [...] G 2211 Complex e/[place], [address] CBC WITH AUTO DIFF, 1036F TOBACCO NON-USER, G8783 BP SCR PRFRM RCMDD DEFIND SCR INTVL, G8752 MOST RECENT SYSTOLIC BP < 140MM HG, G8754 MOST RECENT DIASTOLIC BP < 90MM HG, G8420 BMI<30 AND >=22 CALC & DOCU * Follow Up: p rn * Images: Drawing:[facility] addendum 2024 Billing Information: * Visit Code: 08123 Office Visit, Est Pt., Level 3. * Procedure Codes: G2211 Complex e/[place]. [address] CBC WITH AUTO DIFF. 1036F TOBACCO NON-USER. G8783 BP SCR PRFRM RCMDD DEFIND SCR INTVL. G8752 MOST RECENT SYSTOLIC BP < 140MM HG. G8754 MOST RECENT DIASTOLIC BP < 90MM HG. G8420 BMI<30 AND >=22 CALC & DOCU. * Electronic signature of Rosa Antonio APRN on 03/05/2025 at 07:29 AM EDT Sign off status: Pending * Provider: FAWN Wise Date: 0 02/26/2025 Generated for Printi ng/Aram/eTranstacieitting on: 0 03/05/2025 07:29 AM EDT History and Physical Notes * [...]
--- NOTE | 2025-03-05 07:28 | CT_ITS ---
FINAL REPORT TECHNIQUE: Thin section axial images are obtained through the abdomen and pelvis after intravenous contrast. Reconstruction images were obtained from the axial data. Exam was performed using dose reduction techniques. CLINICAL HISTORY: RENAL MASS COMPARISON: CT abdomen pelvis without 02/19/2025 FINDINGS: LUNG BASES: Slightly nodular opacity in the lingula is unchanged and could be atelectasis. Lung bases otherwise clear. Heart size is normal. LIVER: Homogeneous. No focal lesion. GALLBLADDER/BILIARY SYSTEM: Gallbladder is present. No gallstones. No biliary dilatation. SPLEEN: Unremarkable. PANCREAS: Unremarkable. ADRENALS: Bilateral adrenal nodules, right 14 mm and left 14 mm. Both had Hounsfield units of less than 10 on previous noncontrast exam. Nodules are consistent with adenomas. KIDNEYS/URETERS/BLADDER: Hypodense lesion inferior right kidney measures fluid density after contrast. No enhancing components. Findings consistent with cyst. No masses in the left kidney. No hydronephrosis. Unremarkable urinary bladder. GI TRACT: Postoperative changes from gastric bypass. No evidence of small bowel obstruction. Small bowel to small bowel intussusception anterior upper abdomen. In an adult patient this is usually transient. Appendix not seen but no secondary signs of appendicitis. Large amount of retained stool in the colon. PELVIC ORGANS: Uterus unremarkable for age. LYMPH NODES/RETROPERITONEUM/MESENTERY: No abdominal or pelvic lymphadenopathy. No abdominal aortic aneurysm. ABDOMINAL WALL: The abdominal wall is intact. FREE FLUID: No ascites. BONES: Fractures in the posterior left 11th and 12th ribs are unchanged. No acute osseous abnormality. IMPRESSION: Right renal lesion which does not enhance and consistent with renal cyst. Small bowel to small bowel intussusception. In an adult patient, this is usually transient and of no significance. Constipation. Reviewed, Interpreted and Dictated by Bobbi Mcwilliams MD Transcribed by Ursula Jackson Authenticated and [facility]
--- OUTSIDE RECORDS SUMMARY | 2025-03-05 07:30 | XMS_ITS | Clinical Summary ---
Author Organization [facility] Address [address] [place] [address] Care Team Providers Care Afterschool Name Role Phone Saul Benitez MD Primary Care Provider +1- [phone] Family History Medical History Relation Name Comments [...] of Treatment Not on file Care Teams Afterschool Relationship Specialty Start Date End Date Saul Benitez MD [address] [place] [id number] PCP - General 11/22/20
--- OUTSIDE RECORDS SUMMARY | 2025-03-05 07:30 | XMS_ITS | Patient Health Record ---
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 Role Phone Jeyson Benitez Primary Care Provider [phone] Sang Regan Unavailable [phone] Marlena Antonio Unavailable [phone] Work In, Schedule Unavailable Unavailable China Sánchez Unavailable [phone] Allergies Allergen (clinical drug ingredient) Drug/Non Drug Allergy documented on EMR Reaction Allergy Type Onset Date Status indomethacin Indomethacin disoriented Drug Allergy Active milnacipran Savella memory loss and excessive drowsiness Drug Allergy Active Penicillin anaphylaxis Drug Allergy Acti ve Results Component Value Reference Range Notes CT Scan : Abd and Pelvis, st one protocol Reviewed date:01/03/2025 12:11:45 PM Interpretation: Performing Lab: Notes/Report: P-Culture, Urine Reviewed date:01/06/2025 08:21:23 PM Interpretation: Performing Lab: Notes/Report: Test performed by [facility] [address] [place] [address] , [address], [place] [address] Tim Parrish MD, Farm Management Agent CLIA: [id number] Specimen Source Urine - Void Culture, Urine See Below See Microbiol ogy Report Escherichia coli ESBL 50,000-100,000 CFU /ml Escherichia coli ESBL This isolate is a confirmed ESBL (Extended Spectrum Beta-Lactamase) film producer and should be considered clinically resistant [...] Interpretation:neg Performing Lab: Notes/Report: neg results neg H-CBC Reviewed date:01/04/2025 11:41:11 PM Interpretation: Performing [...] AGRATIO 1.1 1.1-1.8 ALP 147 38-126 U/L H-Culture, Blood Reviewed date:01/29/2025 05:09:23 PM Interpretation: Performing Lab: Notes/Report: CUBLD NO GROWTH AFTER 5 DAYS CUBLD NO GROWTH AFTER 5 DAYS H-Lactic Acid Reviewed date:01/04/2025 11:41:11 PM Interpretation: [...] 149 on 01/04/25 CA 8.5 8.4-10.2 mg/dl H-CBC Reviewed date:01/06/2025 08:21:22 PM Interpretation: Performing [...] date:01/06/2025 08:21:22 PM Interpretation: Performing Lab: Notes/Report: MDPRABHU MANUAL DIFFERENTIAL MANUAL DIFF TCC 100 NEUT%M [...] 88 74-100 mg/dl CA 8.4 8.4-10.2 mg/dl Urinalysis - Inhouse Reviewed date:01/16/2025 01:06:05 PM Interpretation: Performing Lab: Notes/Report: Color/Clarity yellow/clear Leuk Neg Nitrite Neg Urobili 3.2 Protein Neg pH 5.5 Blood Neg Sp. Gr. 1.010 Ketone Neg Bili Neg Gluc Neg P-Culture, Urine Reviewed date:01/18/2025 02:40:55 PM Interpretation: Performing Lab: Notes/Report: Test performed by [facility] [address] [place] [address] , [address], [place] [address] Tim Parrish MD, Farm Management Agent CLIA: [id number] Specimen Source Urine - Void Culture, Urine See Below Final Report : No Significant Growth Urinalysis - Inhouse Reviewed date:01/04/2025 11:41:11 PM [...] Neg Ketone Neg Bili Neg Gluc Neg CXR Reviewed date:01/02/2025 12:54:22 AM Interpretation: Performing Lab: Notes/Report: Urinalysis - Inhouse Reviewed date:01/02/2025 05:01:33 PM Interpretation: Performing Lab: Notes/Report: Color/Clarity yellow/cloudy Leuk 3+ Nitrite Neg Urobili 3.2 Protein 2+ pH 5.5 Blood 1+ Sp. Gr. 1.015 Ketone Trace Bili 1+ Gluc Neg P-Culture, Urine Reviewed date:01/02/2025 03:44:10 PM Interpretation:See duplicate order Performing Lab: Notes/Report: See duplicate order P-Vitamin B1 (Thiamine), Ser um/Plasma, LC/MS/MS Reviewed [...] developed and its performance characteristics determined by [facility]. It has not been cleared or approved by the [place] Food and Drug Administration. This test was performed in a CLIA certified laboratory and is intended for clinical purposes. Performed By: [facility] [address] [place] [address] Farm Management Agent: Cesar Arnold MD, PhD CLIA Number: [id number] P-Uric Acid Reviewed date:02/27/2025 02:33:38 PM Interpretation:3.5 Performing Lab: Notes/Report: Test performed by [facility], [address] , [address] , [place] [address] iTm Parrish MD, Farm Management Agent CLIA: [id number] Uric Acid 3.5 2.4-7.0 mg/dL CBC Venipuncture [...] - 38 platlet 255 100 - 400 P-Vitamin B1 (Thiamine), Ser um/Plasma, LC/MS/MS Reviewed date:06/29/2024 10:43:05 AM Interpretation: Performing Lab: Notes/Report: Glycohemoglobin A1c (in hous e) Reviewed date:06/29/2024 04:17:23 PM Interpretation:5.3% Normal Performing Lab: Notes/Report: 5.3% Normal glycohemoglobin 5.3% 5 - 6.5 % P-CBC with Diff plus Absolut e Counts Reviewed date:06/29/2024 04:17:23 PM Interpretation:Normal Performing Lab: Notes/Report: Test performed by [facility], [address] , [address], [place] [address] Tim Parrish MD, Farm Management Agent CLIA: [id number] WBC 6.1 3.8-11.5 K/uL Red Blood Cell [...] 51 Performing Lab: Notes/Report: Test performed by [facility], [address] , [address], [place] [address] Tim Parrish MD, Farm Management Agent CLIA: [id number] Sodium 139 135-145 mmol/L Potassium 4.9 3.5-5.3 [...] developed and its performance characteristics determined by [facility]. It has not been cleared or approved by the [place] Food and Drug Administration. This test was performed in a CLIA certified laboratory and is intended for clinical purposes. Performed By: [facility] [address] [place] [address] Farm Management Agent: Cesar Arnold MD, PhD CLIA Number: [id number] P-Folate Reviewed date:06/29/2024 04:17:23 PM Interpretation:Normal Performing Lab: Notes/Report: Test performed by [facility] [address] [place] [address] , [address], [place] [address] Tim Parrish MD, Farm Management Agent CLIA: [id number] Folate >20 >4.59 ng/mL P-Selenium, Serum/Plasma Reviewed [...] developed and its performance characteristics determined by [facility]. It has not been cleared or approved by the US Food and Drug Administration. This test was performed in a CLIA certified laboratory and is intended for clinical purposes. Performed By: [facility] [address] [place] [address] Farm Management Agent: Cesar Arnold MD, PhD CLIA Number: [id number] P-Ferritin Reviewed date:06/29/2024 04:17:23 PM Interpretation:Normal Performing Lab: Notes/Report: Test performed by [facility] [address] [place] [address] , [address], [place] [address] Tim Parrish MD, Farm Management Agent CLIA: [id number] Ferritin 25.1 13.0-301.0 ng/mL P-T4 Free (thyroxine) Reviewed date:06/29/2024 04:17:23 PM Interpretation:Normal Performing Lab: Notes/Report: Test performed by [facility] [address] [place] [address] , [facility] [place] [address] Tim Parrish MD, Farm Management Agent CLIA: [id number] Thyroxine Free (free T4) 0.94 0.86-1.76 ng/dL P-Hemoglobin A1C Reviewed date:06/29/2024 04:17:23 PM Interpretation:Normal Performing Lab: Notes/Report: Test performed by [facility] [address] [place] [address] , [address], [place] [address] Tim Parrish MD, Farm Management Agent CLIA: [id number] Hemoglobin A1C 5.4 <5.7 % The following HbA1c ranges recommended by the [place] [employer] (ADA) may be used as an aid in the diagnosis of diabetes mellitus. HbA1c Suggested Diagnosis >=6.5% Diabetic 5.7% - 6.4% Pre-Diabetic <5.7% Non-Diabetic P-Iron Binding Cap Reviewed date:06/29/2024 04:17:23 PM Interpretation:Normal Performing Lab: Notes/Report: Test performed by [facility] [address] [place] [address] , [address], [place] [address] Tim Parrish MD, Farm Management Agent CLIA: [id number] Iron Binding Cap 344 250-450 ug/dL P-Iron Reviewed date:06/29/2024 04:17:23 PM Interpretation:Normal Performing Lab: Notes/Report: Test performed by [facility] [address] [place] [address] Jennifer Cruz, [address], [place] [address] Tim Parrish MD, Farm Management Agent CLIA: [id number] Iron 99 37-145 ug/dL P-Lipid Panel Reviewed date:06/29/2024 04:17:23 PM Interpretation:Normal Performing Lab: Notes/Report: Test performed by [facility], [address] , [address], [place] [address] Tim Parrish MD, Farm Management Agent CLIA: [id number] Cholesterol 125 <200 mg/dL Triglycerides 82 <150 [...] developed and its performance characteristics determined by [facility]. It has not been cleared or approved by the US Food and Drug Administration. This test was performed in a CLIA certified laboratory and is intended for clinical purposes. Performed By: [facility] [address] [place] [address] Farm Management Agent: Cesar Arnold MD, PhD CLIA Number: [id number] P-Prealbumin Reviewed date:06/29/2024 04:17:23 PM Interpretation:Normal Performing Lab: Notes/Report: Test performed by [facility] [address] [place], [place] [address] [address] , [place] [address] Tim Parrish MD, Farm Management Agent CLIA: [id number] Prealbumin 21.0 20.0-40.0 mg/dL Percent Saturation Reviewed date:06/29/2024 04:17:23 PM Interpretation:Normal Performing Lab: Notes/Report: Test performed by [facility] [address] [place], [place] [address] [place] [address] Tim Parrish MD, Farm Management Agent CLIA: [id number] Percent Saturation 29 15-50 % P-TSH Reviewed date:06/29/2024 04:17:23 PM Interpretation:Normal Performing Lab: Notes/Report: Test performed by [facility] [address] [place], [place] [address] [address] , [place] [address] Tim Parrish MD, Farm Management Agent CLIA: [id number] TSH 1.08 0.43-5.25 mU/L P-Vitamin A (Retinol), Serum Reviewed date:06/29/2024 04:17:23 PM Interpretation:Normal Performing Lab: Notes/Report: Test Cancelled Test Cancelled TNP - Incor rect Specimen. Unable to perform due to incorrect specimen submission P-Vitamin D 25-Hydroxy Reviewed date:06/29/2024 04:17:23 PM Interpretation:Normal Performing Lab: Notes/Report: Test performed by [facility] [address] [place] [address] , [address], [place] [address] Tim Parrish MD, Farm Management Agent CLIA: [id number] Vitamin D 25-Hydroxy 65.0 30.0-100.0 ng/mL Interpretation [...] analytical performance characteristics have been determined by [facility] [place], [place]. It has not been cleared or approved by the U.S. Food and Drug Administration. This assay has been validated pursuant to the CLIA regulations and is used for clinical purposes. Test Performed By [facility] [place] , CLIA [id number] [facility] [address] ,[place], [place], Filipe Meier MD PhD Estimated Average Glucose Reviewed date:06/29/2024 04:17:23 PM Interpretation:Normal Performing Lab: Notes/Report: Test performed by [facility] [address] [place], [place] [address] [address] , [address], [place] [address] Tim Parrish MD, Farm Management Agent CLIA: [id number] Estimated Average Glucose (eAG) 108 Estimated Average [...] or iron, eAG should not be evaluated. Holter Monitor- 48 hour Reviewed date:08/15/2024 08:13:51 AM Interpretation:NSR Performing Lab: Notes/Report: NSR CT Scan : Abd & Pelvis w/o c ontrast Reviewed date:02/21/2025 11:03:18 AM Interpretation:indeterminate renal mass, moderate fecal impaction Performing Lab: Notes/Report: indeterminate renal mass, moderate fecal impaction Urinalysis - Inhouse Reviewed date:02/14/2025 09:38:34 AM Interpretation: Performing Lab: Notes/Report: Color/Clarity yellow/clear Leuk Trace Nitrite Neg Urobili 3.2 Protein Neg pH 5.5 Blood Neg Sp. Gr. 1.015 Ketone Neg Bili Neg Gluc Neg Medications Medication SIG (Take, Route, Frequency, Duration) [...] W/U Status Risk Notes Problem Essential hypertension (50057194) Essential (primary) hypertension (I10) Active confirmed Problem History of circulatory system disease (471403401) History of ASCVD (Z86.79) Active confirmed Problem COPD - Chronic obstructive pulmonary disease (87596058) COPD (chronic obstructive pulmonary disease) (J44.9) Active confirmed Problem Acute exacerbation of chronic obstructive airways disease (161842667) COPD with exacerbation (J44.1) Active confirmed Problem Osteopenia (870416817) Osteopenia (M85.80) Active confirmed Problem Seasonal allergy (236855715) Seasonal allergies (J30.2) Active confirmed Problem Renal mass (642301583) Renal mass (N28.89) Active confirmed Problem Mixed anxiety and depressive disorder (615457864) Depression with anxiety (F41.8) Active confirmed Problem Overactive urinary bladder (disorder) (034788634) OAB (overactive bladder) (N32.81) Active confirmed Problem Memory loss (12699256) Memory loss (R41.3) Active confirmed Problem Fibromyalgia (618434220) Fibromyalgia (M79.7) Active confirmed Problem Vasomotor rhinitis (1899416) Vasomotor rhinitis (J30.0) Active confirmed Problem Chronic respiratory failure (42545230) Chronic respiratory failure with hypoxia (J96.11) Active confirmed Problem Irritable bowel syndrome with diarrhea (825186258) Irritable bowel syndrome with diarrhea (K58.0) Active confirmed Problem Migraine without aura, not refractory (739639727) Migraine without aura and without status migrainosus, not intractable (G43.009) Active confirmed Problem Atrophic vaginitis (81367645) Atrophic vaginitis (N95.2) Active confirmed Problem Sacroiliitis (77950067) Sacroiliitis (M46.1) Active confirmed Problem Dependence on supplemental oxygen (416372029457) Oxygen dependent (Z99.81) Active confirmed Problem Dyslipidemia (567277300) Dyslipidemia (E78.5) Active confirmed Problem Allergic rhinitis caused by pollen (43639278) Seasonal allergic rhinitis due to pollen (J30.1) Active confirmed Problem Degenerative disc disease (76337180) DDD (degenerative disc disease), lumbar (M51.36) Active confirmed Problem 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) Active confirmed Problem Malabsorption syndrome (81159860) Malabsorption due to intolerance, not elsewhere classified (K90.49) Active confirmed Problem Ex-tobacco user (finding) (747478584) Personal history of tobacco use (Z87.891) Active confirmed Problem Degeneration of thoracic intervertebral disc (32927134) DDD (degenerative disc disease), thoracic (M51.34) Active confirmed Vital Signs Heart Rate 70 /min 02/26/2025 Blood pressure diastolic 60 mm Hg 02/26/2025 Height 65 in 02/26/2025 Blood pressure systolic 116 mm Hg 02/26/2025 Weight 144.4 lbs 02/26/2025 BMI 24.03 kg/m2 02/26/2025 Encounters Encounter Location Date Provider Diagnosis [facility] [address] [place] [id number] 03/30/2024 R Foreign Benitez Vaginal yeast infect ion B37.31 and Abnormal thyroid function test R94.6 [facility] [address] [place], [place] [id number] 04/27/2024 R Foreign Emmanuel Seasonal allergies J30.2 and Fibromyalgia M79.7 [facility] [address] [facility] [address] [place], [place] [id number] 06/22/2024 R Foreign Emmanuel Fibromyalgia M79.7 ; Malabsorption due to intolerance, not elsewhere classified K90.49 ; Status post bariatric surgery Z98.84 ; Dyslipidemia E78.5 ; Vaginal yeast infection B37.31 and Hypoglycemia E16.2 [facility] [address] [facility] [address] [place], [place] [id number] 06/26/2024 Sang [place] Malabsorption due to intolerance, not elsewhere classified K90.49 [facility] [address] [facility] [address] [place], [place] [id number] 07/13/2024 R Foreign Emmanuel URI (upper respirato ry infection) J06.9 and Atrophic vaginitis N95.2 [facility] [address] [facility] [address] [place], [place] [id number] 07/25/2024 R Foreign Emmanuel Palpitations R00.2 [facility] [address] [facility] [address] [place], [place] [id number] 08/28/2024 Marlena Antonio Sinusitis J32.9 and Papules R23.8 [facility] [address] [facility] [address] [place] [id number] 10/19/2024 R Foreign Emmanuel Acute bronchitis J20 .9 ; COPD (chronic obstructive pulmonary disease) J44.9 ; Dyslipidemia E78.5 ; Seasonal allergies J30.2 and BMI 24.0-24.9, adult Z68.24 [facility] [address] [facility] [address] [place], [place] [id number] 12/29/2024 China Crowdy Hypoxia R09.02 ; Dysuria R30.0 ; Chills R68.83 and BMI 24.0-24.9, adult Z68.24 [facility] [address] [facility] [address] [place], [place] [id number] 12/30/2024 China Crowdy Dysuria R30.0 [facility] [address] [facility] [address] [place], [place] [id number] 01/02/2025 R Foreign Emmanuel Adult general medica l examination Z00.00 ; Flank pain, acute R10.10 ; Hematuria R31.9 ; Depression with anxiety F41.8 ; History of ASCVD Z86.79 ; Osteopenia M85.80 ; Personal history of tobacco use Z87.891 ; COPD (chronic obstructive pulmonary disease) J44.9 ; Essential (primary) hypertension I10 ; Seasonal allergies J30.2 ; Dyslipidemia E78.5 and BMI 24.0-24.9, adult Z68.24 [facility] [address] [facility] [address] [place], [place] [id number] 01/04/2025 R Foreign Emmanuel Pyelonephritis N12 [facility] [address] [facility] [address] [place], [place] [id number] 01/16/2025 R Foreign Emmanuel Pyelonephritis N12 [facility] [address] [facility] [address] [place], [place] [id number] 02/13/2025 R Foreign Emmanuel Pyelonephritis N12 [facility] [address] [facility] [address] [place], [place] [id number] 02/22/2025 [facility] [address] [facility] [address] [place], [place] [id number] 02/26/2025 Marlena Antonio Acute pain of left k nee M25.562 ; Acute pain of left wrist M25.532 ; Chronic respiratory failure with hypoxia J96.11 and BMI 24.0-24.9, adult Z68.24 [facility] [address] [facility] [address] [place], [place] [id number] 03/14/2024 R Foreign Emmanuel [facility] [address] [facility] [address] [place], [place] [id number] 05/24/2024 R Foreign Emmanuel Seasonal allergies J30.2 [facility] [address] [facility] [address] [place], [place] [id number] 06/29/2024 R Foreign Emmanuel [facility] [address] [place] [id number] 07/03/2024 R Foreign Emmanuel [facility] [address] [place] [id number] 08/15/2024 R Foreign Emmanuel [facility] [address] [place] [id number] 08/15/2024 R Foreign Emmanuel [facility] [address] [place] [id number] 08/17/2024 R Foreign Emmanuel Seasonal allergies J30.2 [facility] [address] [place] [id number] 10/31/2024 R Foreign Emmanuel [facility] [address] [place] [id number] 11/21/2024 R Foreign Emmanuel [facility] [address] [place] [id number] 01/02/2025 China Liondy [facility] [address] [place] [id number] 01/02/2025 R Foreign Emmanuel [facility] [address] [place] [id number] 01/09/2025 R Foreign Emmanuel [facility] [address] [place] [id number] 01/18/2025 R Foreign Emmanuel [facility] [address] [place] [id number] 01/22/2025 R Foreign Emmanuel [facility] [address] [place] [id number] 02/21/2025 R Foreign Emmanuel Renal mass N28.89 [facility] [address] [place] [id number] 02/22/2025 R Foreign Emmanuel Assessments Encounter Date Diagnosis (ICD Code) Assessment Notes Treatment Notes Treatment Clinical Notes Section Notes 02/26/2025 Acute pain of left wrist (ICD-10 - M25.532) will check for gout; wrist splint; orthoped referral 02/21/2025 Renal mass (ICD-10 - N28.89) 02/13/2025 Pyelonephritis (ICD-10 - N12) 01/16/2025 Pyelonephritis (ICD-10 - N12) Will start oral Macrodantin based on her previous urine culture while awaiting repeat culture obtained today. 02/26/2025 Acute pain of left knee (ICD-10 - M25.562) discussed xray, MRI and orthoped referral; will do l0fumphw at or[facility]rt of her choice; she staes they always do Xray and can scheduled MRI if needed; encouraged use of cane and/or walker for steadiness and fall prevention 01/02/2025 Flank pain, acute (ICD-10 - R10.10) See the following phone encounter. Stat CT scan shows no hydronephrosis or stones. There is some mild stranding around the left kidney. May represent early pyelonephritis 12/30/2024 Dysuria (ICD-10 - R30.0) 12/29/2024 Hypoxia (ICD-10 - R09.02) Patient's oxygen [...] start on abx and increase fluid intake. 01/02/2025 Adult general medical examination (ICD-10 - Z00.00) Patient instructed to return to office Annually for Annual Wellness Visits to include annual screenings of Pain assessment, Functional Ability assessment, Cognitive Ability assessment, Fall Risk assessment, Depression screening and Bladder control screening. 10/19/2024 Acute bronchitis (ICD-10 - J20.9) 10/19/2024 COPD (chronic obstructive pulmonary disease) (ICD-10 - J44.9) 08/28/2024 Sinusitis (ICD-10 - J32.9) continue also with astelin nasal spray; tylenol/motrin prn 08/28/2024 Papules (ICD-10 - R23.8) discuused seeing Derm; she will wait and see what happens with ABX and not having to blow her nose as often; instructed not to wear makeup on the nose until all papules gone; discussed that this may herpatic papules 08/17/2024 Seasonal allergies (ICD-10 - J30.2) 06/26/2024 Malabsorption due to intolerance, not elsewhere classified (ICD-10 - K90.49) 06/22/2024 Fibromyalgia (ICD-10 - M79.7) 06/22/2024 Malabsorption due to intolerance, not elsewhere classified (ICD-10 - K90.49) 05/24/2024 Seasonal allergies (ICD-10 - J30.2) 04/27/2024 Seasonal allergies (ICD-10 - J30.2) 03/30/2024 [...] 03/30/2024 Vaginal yeast infection (ICD-10 - B37.31) 01/04/2025 Pyelonephritis (ICD-10 - N12) She has failed to oral antibiotics. Plan for direct admission to [facility] for IV fluids and IV antibiotics. 07/25/2024 Palpitations (ICD-10 - R00.2) 07/13/2024 URI (upper respiratory infection) (ICD-10 - J06.9) 07/13/2024 Atrophic vaginitis (ICD-10 - N95.2) 02/26/2025 Chronic respiratory failure with hypoxia (ICD-10 - J96.11) 04/27/2024 Fibromyalgia (ICD-10 - M79.7) 06/22/2024 Status post bariatric surgery (ICD-10 - Z98.84) 10/19/2024 Dyslipidemia (ICD-10 - E78.5) 12/29/2024 Chills (ICD-10 - R68.83) 01/02/2025 Hematuria (ICD-10 - R31.9) 01/02/2025 Depression with anxiety (ICD-10 - F41.8) 12/29/2024 BMI 24.0-24.9, adult (ICD-10 - Z68.24) 02/26/2025 BMI 24.0-24.9, adult (ICD-10 - Z68.24) 06/22/2024 Dyslipidemia (ICD-10 - E78.5) 10/19/2024 Seasonal allergies (ICD-10 - J30.2) 10/19/2024 BMI 24.0-24.9, adult (ICD-10 - Z68.24) 06/22/2024 Vaginal yeast infection (ICD-10 - B37.31) 01/02/2025 History of ASCVD (ICD-10 - Z86.79) 01/02/2025 Osteopenia (ICD-10 - M85.80) 06/22/2024 Hypoglycemia (ICD-10 - E16.2) 01/02/2025 Personal history of tobacco use (ICD-10 [...] Date MEDICARE PART B [address] [address] [place] [address] [id number] WENDY DORAN Self - patient is the insured [facility] [employer] [address] [place] [address] [phone] [id number] VINCENT , WENDY Self - patient is the insured Medications Administered Medication Instructions Date of Administration Dosage Notes Dexamethasone 06/28/2018 1 mL Dexamethasone 05/02/2019 1 mL Dexamethasone 02/10/2022 1 mL Dexamethasone 06/09/2022 1 mL Phenergan 12.5 mgs. 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 Ca th showed [...] Hospitalization History Reason Date(Month/Year) Drs office in [place]-possible UTI, te sted negative 12/2019 [place] [facility]-Bronchitis 03/2018 [place] [facility]-diarrhea 11/2015 [place] [facility]-constipation/impaction 2015 [facility]-heart attack 12/31/2014 [facility] ER-back pain 06/2012 [facility] ER-diarrhea 03/2011
[2025-03-05 07:47] LABS: Blood Urea Nitrogen 32 mg/dl (7-17); Creatinine,Serum 0.80 mg/dl (0.52-1.04); Estimated Glomerular Filt Rate 72 ml/min (>60); GFR (African American) 87 ML/MIN (>60)
[2025-03-05] MEDS: IOPAMIDOL-370 (76%);100ML BOTTLE 75 ML IV (08:11)
[2025-03-05] MEDS: SODIUM CHLORIDE 0.9% 10ML SYR (RAD ONLY) 10 ML IV (08:11)
== END 2025-03-05 23:59 | disposition home or self-care (01) ==
LOC: RAD 07:27
PROVIDERS: PCP Family Medicine; Visit Provider Family Medicine
DX: N28.89 Other specified disorders of kidney and ureter (principal)
CPT/HCPCS: 36415; 74177; 82565; 84520; Q9967

== ENCOUNTER 2025-04-11 08:50 | Outpatient (CLI) | payer MEDICARE, SELFPAY ==
--- OUTSIDE RECORDS SUMMARY | 2025-01-16 05:45 | XMS_ITS ---
Author Organization [facility] Address [address] [facility] [address] [place] [id number] Care Team Providers Care Lead Electrician Name Role Phone Jeyson Benitez Primary Care [...] Interpretation: Performing Lab: Notes/Report: Test performed by [facility] [address] [place] [address] , [address], [place] [address] Tim Parrish MD, Awning Spreader CLIA: [id number] Specimen Source Urine - Void Culture, Urine [...] 100 MG TAKE 1 TABLET BY MO [facility] ONCE DAILY AT BEDTIME; Duration: 90 [...] Encounter Location Date Provider Diagnosis [facility] [address] [facility] [address] [facility] [address] [place] [id number] 01/16/2025 Jeyson Benitez Pyelonephritis N12 Assessments Encounter [...] * BURT DORANOB:[birth year] (69 yo F)Acc No.[id number]:01/16/2025 Patient: WENDY ESCAMILLA Provider: Jeyson Benitez M.D. :1955 A ge:69 Y S ex:Female Date:01/16/2025 Address:[address] [place] [address] , [phone] Subjective: * Chief Complaints: * 1 . F/U Hospital D/C. * HPI: H PI: She returns to follow-up on recent admission to [facility] for pyelonephritis. She completed a 7-day [...] Ball 11/2020. * Hospitalization/Major Diagno stic Procedure: [facility] ER-diarrhea 03/2011, [facility] ER-back pain 06/2012, [facility]-heart attack 12/31/2014, [place] ER-constipation/impaction 09/2015, [place] ER-diarrhea 11/2015, [place] ER-Bronchitis [...] G 2211 Complex e/[place], [address] Urinalysis, no micro * Follow Up: v ia phone to report test results * Images: Billing Information: * Visit Code: 08695 Office Visit, Est Pt., Level 3. * Procedure Codes: G2211 Complex e/[place]. [address] Urinalysis, no micro. * Electronic signature of Jeyson Benitez MD on 04/11/2025 at 08:55 AM EDT Sign off status: Pending * Provider: Jeyson Benitez M.D. Date: 0 01/16/2025 Generated for Elkin castillo/Aram/eTransmitting on: 1 08:55 AM EDT History and Physical Notes * HPI (History of Present Illness) Category Sub-Category Detail Notes Category Not es HPI She returns to follow-up on recent admission to [facility] for pyelonephritis. She completed a 7-day [...]
--- OUTSIDE RECORDS SUMMARY | 2025-02-13 11:30 | XMS_ITS ---
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 Role Phone Jeyson Benitez Primary Care [...] HCl 100 MG TAKE 1 TABLET BY [facility] ONCE DAILY AT BEDTIME; Duration: [...] Provider Diagnosis [facility] [address] [facility] [address] [place] [phone] 02/13/2025 Jeyson Benitez Pyelonephritis N12 Assessments Encounter Date Diagnosis (ICD Code) Assessment Notes Treatment Notes Treatment Clinical Notes Section Notes 02/13/2025 Pyelonephritis (ICD-10 - N12) Plan Of Treatment Next Appt Details Follow Up: after tests, Reas on: Progress Notes * BURT DORANOB:[birth year] (69 yo F)Acc No.[id number]:02/13/2025 Progress Notes Patient: WENDY ESCAMILLA Provider: Jeyson Benitez M.D. :1955 A ge:69 Y S ex:Female Date:02/13/2025 Address:[address] [place] [address] [address] , [id number] Subjective: * Chief [...] 11/2020. * Hospitalization/Major Diagno stic Procedure: [facility] ER-diarrhea 03/2011, [facility] ER-back pain 06/2012, [facility]-heart attack 12/31/2014, [place] ER-constipation/impaction 09/2015, [place] ER-diarrhea 11/2015, [place] ER-Bronchitis 03/2018, Drs office in [place]-possible UTI, tested negative 12/2019. * Family History: [...] EDT > no auth required; CPT code 00962; faxed to [facility] Lin Pinedo 02/21/2025 11:03:14 AM EDT > See phone encounter * Procedure Codes: 8 1002 Urinalysis, no micro, G2211 Complex e/m visit add on * Follow Up: a fter tests * Images: Billing Information: * Visit Code: 17050 Office Visit, Est Pt., Level 3. * Procedure Codes: 25053 Urinalysis, no micro. G2211 Complex e/m visit add on. * Electronic signature of Jeyson Benitez MD on 04/11/2025 at 08:54 AM EDT Sign off status: Pending * Provider: Jeyson Benitez M.D. Date: 0 02/13/2025 Generated for Elkni castillo/Aram/Linseyitting on: 08:54 AM EDT History and Physical Notes * Examination Category Sub-Category Detail Notes Category Not es General Examination Heart: RSR Lungs: clear to auscultatio n Abdomen: Mild left CVA tender ness to percussion General Appearance: NAD
--- OUTSIDE RECORDS SUMMARY | 2025-02-21 07:02 | XMS_ITS ---
Author Organization [facility] Address [address] [place] [phone] Care Team Providers Care Termite Inspector Name Role Phone Jeyson Benitez Primary Care Provider Results Component Value Reference Range Notes CT Scan : Abdomen and pelvis with IV contrast only Reviewed date:03/08/2025 10:31:23 PM Interpretation:renal cyst; retained stool Performing Lab: Notes/Report: renal cyst; retained stool REASON FOR VISIT abnormal CT results Problems Problem Type SNOMED Code ICD Code Onset Dates Problem Status W/U Status Risk Notes Problem Renal mass (113546726) Renal mass (N28.89) Active confirmed Encounters Encounter Location Date Provider Diagnosis Jessica [address] [place] [phone] 02/21/2025 Jeyson Benitez Renal mass N28.89 Assessments Encounter Date Diagnosis (ICD Code) Assessment Notes Treatment Notes Treatment Clinical Notes Section Notes 02/21/2025 Renal mass (ICD-10 - N28.89) Plan Of Treatment No Information Progress Notes * BURT DORANOB:[birth year] (69 yo F)Acc No.[id number]:02/21/2025 Patient: WENDY ESCAMILLA :1955 A ge:69 Y S ex:Female Address:[address] [place] [address] Subjective: * Chief Complaints: * a bnormal CT results * Medical History: * Surgical History: * Hospitalization/Major Diagno stic Procedure: * Medications: Objective: * Vitals: * Physical Examination: Assessment: * Assessment: 1. R enal mass - N28.89 (Primary) Plan: * Treatment: * Procedure Codes: * true * Date: Generated for Elkin castillo/Aram/Clem on: 08:54 AM EDT
--- OUTSIDE RECORDS SUMMARY | 2025-02-22 05:00 | XMS_ITS ---
Author Organization [facility] Address [address] [place] [phone] Care Team Providers Care Locomotive Engineer Name Role Phone Jeyson Benitez Primary Care Provider [phone] Work In, Schedule Unavailable Unavailable REASON FOR VISIT urine culture only Encounters Encounter Location Date Provider Diagnosis [facility] [address] [place] [phone] 02/22/2025 Schedule Work In Plan Of Treatment No Information Progress Notes * BURT DORANOB:[birth year] (69 yo F)Acc No.[id number]:02/22/2025 Patient: WENDY ESCAMILLA Provider: John mccabe Work In :1955 A ge:69 Y S ex:Female Date:02/22/2025 Address:[address] [id number] Pcp:Jeyson Benitez Subjective: * Chief Complaints: * 1 . Urine culture only. * Medical History: Objective: * Vitals: Assessment: Plan: * Treatment: * Images: Billing Information: * Visit Code: * Procedure Codes: * Electronic signature of Ale finch Work In on 04/11/2025 at 08:54 AM EDT Sign off status: Pending * Provider: John chedule Work In Date: 0 02/22/2025 Generated for Printi ng/Favalentinag/eTransmitting on: 1 08:54 AM EDT
--- NOTE | 2025-04-11 08:45 | CT_ITS ---
FINAL REPORT TECHNIQUE: Axial CT images of the chest were obtained without contrast. Low-dose protocol was utilized. This study was performed with techniques to keep radiation doses as low as reasonably achievable (ALARA). Individualized dose reduction techniques using automated exposure control or adjustment of mA and/or kV according to the patient's size were employed. CLINICAL HISTORY: lung cancer screening former smoker quit 4 years ago 2-3ppd x49 years COMPARISON: 03/22/2023 FINDINGS: CT CHEST WITHOUT, LOW DOSE SCREENING CT Di Vol: 2.90 mGy DLP: 97.68 mGy*cm There is no axillary, mediastinal, or hilar adenopathy. The heart size is normal. Calcifications of the aortic arch. Postoperative changes from gastric bypass. There is no pleural or pericardial effusion. The lung windows show a 3 mm nodule in the posterior right upper lobe on image 24 of series 3 left which may now be partially calcified. The previously noted tiny nodule in the periphery of the right upper lobe on image 16 of series 3 is stable. No new nodule identified. Limited images of the upper abdomen demonstrate no acute findings. IMPRESSION: Stable right upper lobe nodules as above. LR Category 2: 12 month follow-up low-dose chest CT is recommended per Fleischner criteria. Reviewed, Interpreted and Dictated by Rich Rosas MD Transcribed by Ursula Jackson Authenticated and . [facility]
--- OUTSIDE RECORDS SUMMARY | 2025-04-11 08:56 | XMS_ITS | Patient Health Record ---
[facility] Address [address] [facility] [address] [place] [id number] Care Team Providers Care Construction Laborer Name Role Phone Jeyson Benitez Primary Care Provider Sang Regan Unavailable [phone] Marlena Antonio Unavailable [phone] Work In, Schedule Unavailable Unavailable China Sánchez Unavailable [phone] Allergies Allergen (clinical drug ingredient) Drug/Non Drug Allergy documented on EMR Reaction Allergy Type Onset Date Status indomethacin Indomethacin disoriented Drug Allergy Active milnacipran Savella memory loss and excessive drowsiness Drug Allergy Active Penicillin anaphylaxis Drug Allergy Acti ve Results Component Value Reference Range Notes Holter Monitor- 48 hour Reviewed date:08/15/2024 08:13:51 AM Interpretation:NSR Performing Lab: Notes/Report: NSR Urinalysis - Inhouse Reviewed date:02/14/2025 09:38:34 AM Interpretation: Performing Lab: Notes/Report: Color/Clarity yellow/clear Leuk Trace Nitrite Neg Urobili 3.2 Protein Neg pH 5.5 Blood Neg Sp. Gr. 1.015 Ketone Neg Bili Neg Gluc Neg CT Scan : Abd & Pelvis w/o c ontrast Reviewed date:02/21/2025 11:03:18 AM Interpretation:indeterminate renal mass, moderate fecal impaction Performing Lab: Notes/Report: indeterminate renal mass, moderate fecal impaction CT Scan : Abdomen and pelvis with IV contrast only Reviewed date:03/08/2025 10:31:23 PM Interpretation:renal cyst; retained stool Performing Lab: Notes/Report: renal cyst; retained stool P-Uric Acid Reviewed date:02/27/2025 02:33:38 PM Interpretation:3.5 Performing Lab: Notes/Report: Test performed by [facility] [place], [facility] [address] [place] [address] , [address], [place] [address] Tim Parrish MD, Drone Software Development Engineer CLIA: [id number] Uric Acid 3.5 2.4-7.0 mg/dL CBC Venipuncture [...] - 38 platlet 255 100 - 400 CBC Fingerstick (in house) [...] - 38 plat 256 100 - 400 H-BUN/CREAT Reviewed date:03/06/2025 02:28:19 PM Interpretation: Performing Lab: Notes/Report: BUN 32 7-17 mg/dl CREATT 0.80 0.52-1.04 mg/dl GFRAA 87 >60 ML/MIN EGFR 72 >60 ml/min P-Vitamin B1 (Thiamine), Ser um/Plasma, LC/MS/MS Reviewed [...] developed and its performance characteristics determined by [facility]. It has not been cleared or approved by the US Food and Drug Administration. This test was performed in a CLIA certified laboratory and is intended for clinical purposes. Performed By: [facility] [address] [place] [address] Drone Software Development Engineer: Cesar Arnold MD, PhD CLIA Number: [id number] H-CBC Reviewed date:01/04/2025 11:41:11 PM Interpretation: Performing [...] 0.1 0-0.2 K/mm3 NRBC# 0 IG# 0.81 CT Scan : Abd and Pelvis, st one protocol Reviewed date:01/03/2025 12:11:45 PM Interpretation: Performing Lab: Notes/Report: P-Culture, Urine Reviewed date:01/06/2025 08:21:23 PM Interpretation: Performing Lab: Notes/Report: Test performed by [facility] [address] [place] [address] , [address], [place] [address] Tim Parrish MD, Drone Software Development Engineer CLIA: [id number] Specimen Source Urine - Void Culture, Urine See Below See Microbiol ogy Report Escherichia coli ESBL 50,000-100,000 CFU /ml Escherichia coli ESBL This isolate is a confirmed ESBL (Extended Spectrum Beta-Lactamase) car greaser and should be considered clinically resistant to [...] date:01/02/2025 12:54:22 AM Interpretation: Performing Lab: Notes/Report: Covid test (in house) Reviewed date:01/03/2025 12:11:45 [...] Interpretation:neg Performing Lab: Notes/Report: neg results neg H-DIFF Reviewed date:01/05/2025 08:49:49 AM Interpretation: Performing Lab: Notes/Report: MDPRABHU MANUAL DIFFERENTIAL [...] Interpretation:Normal Performing Lab: Notes/Report: Test performed by [facility] [address] [place], [place] [address] [address], [place] [address] Tim Parrish MD, Drone Software Development Engineer CLIA: [id number] Estimated Average Glucose (eAG) 108 Estimated Average [...] Interpretation:Normal Performing Lab: Notes/Report: Test performed by [employer] [address] [place], [place] [address] [address], [place] [address] Tim Parrish MD, Drone Software Development Engineer CLIA: [id number] Percent Saturation 29 15-50 % Miscell Ref Lab Test Reviewed date:06/29/2024 10:43:23 AM Interpretation: Normal Performing Lab: Notes/Report: Test Cancelled Test Cancelled Other P-Hemoglobin A1C Reviewed date:06/29/2024 04:17:23 PM Interpretation:Normal Performing Lab: Notes/Report: Test performed by [employer] [address] [place] [address] , [address], [place] [id number] Tim Parrish MD, Drone Software Development Engineer CLIA: [id number] Hemoglobin A1C 5.4 <5.7 % The following HbA1c ranges recommended by the [place] [employer] (ADA) may be used as an aid in the diagnosis of diabetes mellitus. HbA1c Suggested Diagnosis >=6.5% Diabetic 5.7% - 6.4% Pre-Diabetic <5.7% Non-Diabetic Urinalysis - Inhouse Reviewed date:01/04/2025 11:41:11 PM Interpretation: Performing Lab: Notes/Report: Color/Clarity yellow Leuk trace Nitrite neg Urobili 3.2 Protein trace pH 5.5 Blood neg Sp. Gr. 1.020 Ketone neg Bili neg Gluc neg Urinalysis - Inhouse Reviewed date:01/16/2025 01:06:05 PM Interpretation: Performing Lab: Notes/Report: Color/Clarity yellow/clear Leuk Neg Nitrite Neg Urobili 3.2 Protein Neg pH 5.5 Blood Neg Sp. Gr. 1.010 Ketone Neg Bili Neg Gluc Neg P-Culture, Urine Reviewed date:01/18/2025 02:40:55 PM Interpretation: Performing Lab: Notes/Report: Test performed by [facility] [address] [place] [address] , [address], [place] [address] Tim Parrish MD, Drone Software Development Engineer CLIA: [id number] Specimen Source Urine - Void Culture, Urine See Below Final Report : No Significant Growth Urinalysis - Inhouse Reviewed date:07/13/2024 01:20:35 PM [...] - 38 plat 202 100 - 400 Glycohemoglobin A1c (in hous e) Reviewed date:06/29/2024 04:17:23 PM Interpretation:5.3% Normal Performing Lab: Notes/Report: 5.3% Normal glycohemoglobin 5.3% 5 - 6.5 % P-CBC with Diff plus Absolut e Counts Reviewed date:06/29/2024 04:17:23 PM Interpretation:Normal Performing Lab: Notes/Report: Test performed by [facility] [place], [address] , [address], [place] [address] Tim Parrish MD, Drone Software Development Engineer CLIA: [id number] WBC 6.1 3.8-11.5 K/uL Red Blood Cell [...] 51 Performing Lab: Notes/Report: Test performed by [employer] [place], [facility] , [address], [place] [address] Tim Parrish MD, Drone Software Development Engineer CLIA: [id number] Sodium 139 135-145 mmol/L Potassium 4.9 3.5-5.3 [...] developed and its performance characteristics determined by [facility]. It has not been cleared or approved by the US Food and Drug Administration. This test was performed in a CLIA certified laboratory and is intended for clinical purposes. Performed By: [facility] [address] [place] [address] Drone Software Development Engineer: Cesar Arnold MD, PhD CLIA Number: [id number] P-Folate Reviewed date:06/29/2024 04:17:23 PM Interpretation:Normal Performing Lab: Notes/Report: Test performed by [facility] [address] [place] [address] , [place] [address] Tim Parrish MD, Drone Software Development Engineer CLIA: [id number] Folate >20 >4.59 ng/mL P-Selenium, Serum/Plasma Reviewed [...] developed and its performance characteristics determined by [facility]. It has not been cleared or approved by the US Food and Drug Administration. This test was performed in a CLIA certified laboratory and is intended for clinical purposes. Performed By: [facility] [address] [place] [address] Drone Software Development Engineer: Cesar Arnold MD, PhD CLIA Number: [id number] P-Ferritin Reviewed date:06/29/2024 04:17:23 PM Interpretation:Normal Performing Lab: Notes/Report: Test performed by [employer] [address] [place] [address] , [place] [address] Tim Parrish MD, Drone Software Development Engineer CLIA: [id number] Ferritin 25.1 13.0-301.0 ng/mL P-T4 Free (thyroxine) Reviewed date:06/29/2024 04:17:23 PM Interpretation:Normal Performing Lab: Notes/Report: Test performed by [facility] [address] , [facility] [place] [address] Tim Parrish MD, Drone Software Development Engineer CLIA: [id number] Thyroxine Free (free T4) 0.94 0.86-1.76 ng/dL P-Iron Binding Cap Reviewed date:06/29/2024 04:17:23 PM Interpretation:Normal Performing Lab: Notes/Report: Test performed by [facility] [address] , [facility] [place] [address] Tim Parrish MD, Drone Software Development Engineer CLIA: [id number] Iron Binding Cap 344 250-450 ug/dL P-Iron Reviewed date:06/29/2024 04:17:23 PM Interpretation:Normal Performing Lab: Notes/Report: Test performed by [facility] [address] , [facility] C, [place] [address] Tim Parrish MD, Drone Software Development Engineer CLIA: [id number] Iron 99 37-145 ug/dL P-Lipid Panel Reviewed date:06/29/2024 04:17:23 PM Interpretation:Normal Performing Lab: Notes/Report: Test performed by [facility] [address] , [address], [place] [address] Tim Parrish MD, Drone Software Development Engineer CLIA: [id number] Cholesterol 125 <200 mg/dL Triglycerides 82 <150 [...] developed and its performance characteristics determined by [facility]. It has not been cleared or approved by the US Food and Drug Administration. This test was performed in a CLIA certified laboratory and is intended for clinical purposes. Performed By: [facility] [address] [place] [address] Drone Software Development Engineer: Cesar Arnold MD, PhD CLIA Number: [id number] P-Prealbumin Reviewed date:06/29/2024 04:17:23 PM Interpretation:Normal Performing Lab: Notes/Report: Test performed by [facility] [address] [place] [address] , [address], [place] [address] Tim Parrish MD, Drone Software Development Engineer CLIA: [id number] Prealbumin 21.0 20.0-40.0 mg/dL P-TSH Reviewed date:06/29/2024 04:17:23 PM Interpretation:Normal Performing Lab: Notes/Report: Test performed by [facility] [address] , [address], [place] [address] Tim Parrish MD, Drone Software Development Engineer CLIA: [id number] TSH 1.08 0.43-5.25 mU/L P-Vitamin A (Retinol), Serum Reviewed date:06/29/2024 04:17:23 PM Interpretation:Normal Performing Lab: Notes/Report: Test Cancelled Test Cancelled TNP - Incor rect Specimen. Unable to perform due to incorrect specimen submission P-Vitamin D 25-Hydroxy Reviewed date:06/29/2024 04:17:23 PM Interpretation:Normal Performing Lab: Notes/Report: Test performed by [facility] [address] [place] [address] , [address], [place] [address] Tim Parrish MD, Drone Software Development Engineer CLIA: [id number] Vitamin D 25-Hydroxy 65.0 30.0-100.0 ng/mL Interpretation [...] analytical performance characteristics have been determined by [facility] [place] [place]. It has not been cleared or approved by the U.S. Food and Drug Administration. This assay has been validated pursuant to the CLIA regulations and is used for clinical purposes. Test Performed By [facility] [place] , CLIA [id number] [facility] [address], Filipe Meier MD PhD Medications Medication SIG (Take, Route, Frequency, Duration) Notes Start Date End Date Status SUMAtriptan Succinate 50 MG 1 tablet as needed, may take second dose at least 2 hours after first dose up to 2 tablets per day as needed Orally Active Pantoprazole Sodium 40 MG 1 tablet 1/2 t o 1 hour before morning meal Orally twice a day; Duration: 90 days Active Estrace 0.1 MG/GM 1 gm Vaginal 3 times per week 07/13/2024 Active Atorvastatin Calcium 20 MG TAKE 1 [...] CPAP & BIPAP Hose 1 DIRECTED Active Montelukast Sodium 10 MG 1 tablet Orally Once a day; Duration: 90 days Active hydrOXYzine HCl 10 MG as directed Orally Two times a day; Duration: 90 days Active Calcium Citrate 150 MG 2 capsules Orally Once a day; Duration: 90 days Active traZODone HCl 100 MG TAKE 1 TABLET BY [facility] ONCE DAILY AT BEDTIME; Duration: [...] W/U Status Risk Notes Problem Essential hypertension (69952694) Essential (primary) hypertension (I10) Active confirmed Problem History of circulatory system disease (651979032) History of ASCVD (Z86.79) Active confirmed Problem COPD - Chronic obstructive pulmonary disease (74638277) COPD (chronic obstructive pulmonary disease) (J44.9) Active confirmed Problem Acute exacerbation of chronic obstructive airways disease (018632572) COPD with exacerbation (J44.1) Active confirmed Problem Osteopenia (888040584) Osteopenia (M85.80) Active confirmed Problem Seasonal allergy (352501350) Seasonal allergies (J30.2) Active confirmed Problem Renal mass (550863541) Renal mass (N28.89) Active confirmed Problem Mixed anxiety and depressive disorder (967485443) Depression with anxiety (F41.8) Active confirmed Problem Overactive urinary bladder (disorder) (283528395) OAB (overactive bladder) (N32.81) Active confirmed Problem Memory loss (83146655) Memory loss (R41.3) Active confirmed Problem Fibromyalgia (004158325) Fibromyalgia (M79.7) Active confirmed Problem Vasomotor rhinitis (7688628) Vasomotor rhinitis (J30.0) Active confirmed Problem Chronic respiratory failure (15449843) Chronic respiratory failure with hypoxia (J96.11) Active confirmed Problem Irritable bowel syndrome with diarrhea (875499257) Irritable bowel syndrome with diarrhea (K58.0) Active confirmed Problem Migraine without aura, not refractory (261665278) Migraine without aura and without status migrainosus, not intractable (G43.009) Active confirmed Problem Atrophic vaginitis (14170738) Atrophic vaginitis (N95.2) Active confirmed Problem Sacroiliitis (50708638) Sacroiliitis (M46.1) Active confirmed Problem Dependence on supplemental oxygen (035012370728) Oxygen dependent (Z99.81) Active confirmed Problem Dyslipidemia (424810198) Dyslipidemia (E78.5) Active confirmed Problem Allergic rhinitis caused by pollen (31891599) Seasonal allergic rhinitis due to pollen (J30.1) Active confirmed Problem Degenerative disc disease (06617387) DDD (degenerative disc disease), lumbar (M51.36) Active confirmed Problem 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) Active confirmed Problem Malabsorption syndrome (55148471) Malabsorption due to intolerance, not elsewhere classified (K90.49) Active confirmed Problem Ex-tobacco user (finding) (436681993) Personal history of tobacco use (Z87.891) Active confirmed Problem Degeneration of thoracic intervertebral disc (67969673) DDD (degenerative disc disease), thoracic (M51.34) Active confirmed Vital Signs Heart Rate 70 /min 02/26/2025 Blood pressure diastolic 60 mm Hg 02/26/2025 Height 65 in 02/26/2025 Blood pressure systolic 116 mm Hg 02/26/2025 Weight 144.4 lbs 02/26/2025 BMI 24.03 kg/m2 02/26/2025 Encounters Encounter Location Date Provider Diagnosis [facility] [address] [facility] [address] [place] [id number] 04/27/2024 R Foreign Emmanuel Seasonal allergies J30.2 and Fibromyalgia M79.7 [facility] [address] [facility] [address] [place] [id number] 06/22/2024 R Foreign Emmanuel Fibromyalgia M79.7 ; Malabsorption due to intolerance, not elsewhere classified K90.49 ; Status post bariatric surgery Z98.84 ; Dyslipidemia E78.5 ; Vaginal yeast infection B37.31 and Hypoglycemia E16.2 [facility] [address] [facility] [address] [place] [id number] 06/26/2024 Sang [place] Malabsorption due to intolerance, not elsewhere classified K90.49 [facility] [address] [facility] [address] [place] [id number] 07/13/2024 R Foreign Emmanuel URI (upper respirato ry infection) J06.9 and Atrophic vaginitis N95.2 [facility] [address] [facility] [address] [place] [id number] 07/25/2024 R Foreign [place] Palpitations R00.2 [facility] [address] [facility] [address] [place] [id number] 08/28/2024 Marlena Antonio Sinusitis J32.9 and Papules R23.8 [facility] [address] [facility] [address] [place] [id number] 10/19/2024 R Foreign Emmanuel Acute bronchitis J20 .9 ; COPD (chronic obstructive pulmonary disease) J44.9 ; Dyslipidemia E78.5 ; Seasonal allergies J30.2 and BMI 24.0-24.9, adult Z68.24 [facility] [address] [facility] [address] [place] [id number] 12/29/2024 China Crowdy Hypoxia R09.02 ; Dysuria R30.0 ; Chills R68.83 and BMI 24.0-24.9, adult Z68.24 [facility] [address] [facility] [address] [place], [place] [id number] 12/30/2024 China Sánchez [facility]30.0 [facility] [address] [facility] [address] [place], [place] [id number] 01/02/2025 R Foreign Emmanuel Adult general medica l examination Z00.00 ; Flank pain, acute R10.10 ; Hematuria R31.9 ; Depression with anxiety F41.8 ; History of ASCVD Z86.79 ; Osteopenia M85.80 ; Personal history of tobacco use Z87.891 ; COPD (chronic obstructive pulmonary disease) J44.9 ; Essential (primary) hypertension I10 ; Seasonal allergies J30.2 ; Dyslipidemia E78.5 and BMI 24.0-24.9, adult Z68.24 [facility] [address] [place], [place] [id number] 01/04/2025 R Foreign Emmanuel Pyelonephritis N12 [facility] [address] [place], [place] [id number] 01/16/2025 R Foreign Emmanuel Pyelonephritis N12 [facility] [address] [facility] [address] [place], [place] [id number] 02/13/2025 R Foreign Emmanuel Pyelonephritis N12 [facility] [address] [place], [place] [id number] 02/22/[address] [facility] [address] [place], [place] [id number] 02/26/2025 Marlena Antonio Acute pain of left k nee M25.562 ; Acute pain of left wrist M25.532 ; Chronic respiratory failure with hypoxia J96.11 and BMI 24.0-24.9, adult Z68.24 [facility] [address] [facility] [address] [place], [place] [id number] 05/24/2024 R Foreign Emmanuel Seasonal allergies J30.2 [facility] [address] [place], [place] [id number] 06/29/2024 R Foreign Emmanuel [facility] [address] [place] [id number] 07/03/2024 R Foreign Emmanuel [facility] [address] [place], [place] [id number] 08/15/2024 R Foreign Emmanuel [facility] [address] [place], [place] [id number] 08/15/2024 R Foreign Emmanuel [facility] [address] [place], [place] [id number] 08/17/2024 R Foreign Memanuel Seasonal allergies J30.2 [facility] [address] [place], [place] [id number] 10/31/2024 R Foreign Emmanuel [facility] [address] [place], [place] [id number] 11/21/2024 R Foreign Emmanuel [facility] [address] [place], [place] [id number] 01/02/2025 China Sánchez [facility] [address] [place] [id number] 01/02/2025 R Foreign Emmanuel [facility] [address] [place], [place] [id number] 01/09/2025 R Foreign Emmanuel [facility] [address] [place], [place] [id number] 01/18/2025 R Foreign Emmanuel [facility] [address] [place], [place] [id number] 01/22/2025 R Foreign Emmanuel [facility] [address] [place] [id number] 02/21/2025 R Foreign Emmanuel Renal mass N28.89 [facility] [address] [place], [place] [id number] 02/22/2025 Jeyson [facility] [address] [facility] [address] [place] [id number] 03/08/2025 Jeyson Benitez [facility] [address] [facility] [address] [place] [id number] 03/26/2025 Jeyson Benitez Assessments Encounter Date Diagnosis (ICD Code) Assessment Notes Treatment Notes Treatment Clinical Notes Section Notes 04/27/2024 Seasonal allergies (ICD-10 - J30.2) 05/24/2024 [...] oral antibiotics. [facility]. 01/16/2025 Pyelonephritis (ICD-10 - N12) Will start oral Macrodantin based on her previous urine culture while awaiting repeat culture obtained today. 02/13/2025 Pyelonephritis (ICD-10 - N12) 02/21/2025 Renal mass (ICD-10 - N28.89) 02/26/2025 Acute pain of left knee (ICD-10 - M25.562) discussed xray, MRI and orthoped referral; will do [id number] at orOrtho of her choice; she staes [...] Date MEDICARE PART B [address] [address] [place] [address] [id number] WENDY DORAN Self - patient is the insured [facility] [employer] [address] [place], [place] [id number] WENDY DORAN Self - patient is the insured Medications Administered Medication Instructions Date of Administration Dosage Notes Dexamethasone 06/28/2018 1 mL Dexamethasone 05/02/2019 1 mL Dexamethasone 02/10/2022 1 mL Dexamethasone 06/09/2022 1 mL Phenergan 12.5 mgs. 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 Ca th showed [...] 12/2019 [place] [facility]-Bronchitis 03/2018 [place] [facility]-diarrhea 11/2015 [place] [facility]-constipation/impaction 2015 [facility]-heart attack 12/31/2014 [facility] ER-back pain 06/2012 [facility] ER-diarrhea 03/2011
--- OUTSIDE RECORDS SUMMARY | 2025-04-11 08:57 | XMS_ITS | Clinical Summary ---
Author Organization [facility] Address [address] [place] [address] Care Team Providers Care Automotive Electrical Helper Name Role Phone Saul Benitez MD Primary Care Provider [phone] Family History Medical History Relation Name Comments [...] of Treatment Not on file Care Teams Automotive Electrical Helper Relationship Specialty Start Date End Date Saul Benitez MD [address] [place] [id number] PCP - General 11/22/20
== END 2025-04-11 23:59 | disposition home or self-care (01) ==
LOC: RAD 08:52
PROVIDERS: PCP Family Medicine; Visit Provider Internal Medicine Pulmonary Disease
DX: Z12.2 Encounter for screening for malignant neoplasm of respiratory organs (principal); R91.8 Other nonspecific abnormal finding of lung field; Z87.891 Personal history of nicotine dependence; I25.10 Atherosclerotic heart disease of native coronary artery without angina pectoris; Z98.84 Bariatric surgery status
CPT/HCPCS: 71271

== ENCOUNTER 2025-05-15 15:24 | Outpatient (CLI) | payer MEDICARE, SELFPAY ==
--- OUTSIDE RECORDS SUMMARY | 2025-01-02 04:30 | XMS_ITS ---
[facility] [address] [facility] [address] [place] [id number] Care Team Providers Care Corporate Learning Consultant Name Role Phone Jeyson Benitez Primary Care Provider Allergies Allergen (clinical drug ingredient) Drug/Non Drug Allergy documented on EMR Reaction Allergy Type Onset Date Status indomethacin Indomethacin disoriented Drug Allergy Active milnacipran Savella memory loss and excessive drowsiness Drug Allergy Active Penicillin anaphylaxis Drug Allergy Acti ve Results Component Value Reference Range Notes Urinalysis - Inhouse Reviewed date:01/02/2025 10:42:44 AM Interpretation: Performing Lab: Notes/Report: Color/Clarity straw Leuk 1+ Nitrite positive Urobili 3.2 Protein 1+ pH 6.0 Blood trace-intact Sp. Gr. 1.010 Ketone neg Bili neg Gluc neg P-Culture, Urine Reviewed date:01/06/2025 08:21:23 PM Interpretation: Performing Lab: Notes/Report: Test performed by [facility] [address] [place] [address] , [address], [place] [address] Tim Parrish MD, Document Manager CLIA: [id number] Specimen Source Urine - Void Culture, Urine See Below See Microbiol ogy Report Escherichia coli ESBL 50,000-100,000 CFU /ml Escherichia coli ESBL This isolate is a confirmed ESBL (Extended Spectrum Beta-Lactamase) chipping machine operator and should be considered clinically resistant to all penicillins, cephalosporins and aztreonam. Sensitivity Panel See Below ____ Organism E.coli ESBL Antibiotic INTERP ____ Amikacin S Ampicillin R Aztreonam R Cefepime R Cefoxitin S Ceftazidime R Ceftriaxone R Cefuroxime R Ciprofloxacin R Ertapenem S Gentamicin R Imipenem S Levofloxacin R Meropenem S Nitrofurantoin S Piperacillin/Tazo I Tetracycline R Tobramycin R Trimeth/Sulfa R ___ S=SUSCEPTIBLE I=INTERMEDIATE R=RESISTANT CT Scan : Abd and Pelvis, st one protocol Reviewed date:01/03/2025 12:11:45 PM Interpretation: Performing Lab: Notes/Report: REASON FOR VISIT AWV with checkup and labs Medications Medication SIG (Take, Route, Frequency, Duration) Notes Start Date End Date Status Calcium Citrate 150 MG 2 capsules Orally Once a day; Duration: 90 days Active Isosorbide Dinitrate 30 MG 1 tablet Orally once daily; Duration: 90 days Active hydrOXYzine HCl 10 MG as directed Orally Two times a day; Duration: 90 days Active Aspirin 81 MG 1 tab(s) orally once a day; Duration: 30 day(s) Active QUEtiapine Fumarate ER 150 MG 1 tablet in the evening Orally Once a day Active Nitroglycerin 0.4 MG 1 tab(s) sublingual ly q 5min prn x 3 Active Multivitamin - 1 tab(s) orally once a day w/ Iron Active Melatonin 5 MG 1 tablet at bedtime as needed Orally qhs Active CareTouch CPAP & BIPAP Hose 1 DIRECTED Active Prolia 60 MG/ML as directed subcutaneously every 6 months; Duration: 12 month(s) Active Vitamin D3 50 MCG (1999 UT) 1 tablet Orally Once a day; [...] each nostril Nasally Twice a day Active Cefdinir 300 MG 1 cap(s) Orally Two times a day; Duration: 10 days 12/29/2024 Active Montelukast Sodium 10 MG 1 tablet Orally Once a day 02/29/2024 Active lamoTRIgine 150 MG TAKE 1 TABLET BY DOV TH TWICE DAILY; Duration: 90 Active Venlafaxine HCl ER 225 MG TAKE 1 TABLET BY MOUTH ONCE DAILY WITH FOOD; Duration: 30 Active oxyBUTYnin Chloride ER 10 MG TAKE 1 TABLET BY MOUTH ONCE DAILY; Duration: 90 days Active SUMAtriptan Succinate 50 MG TAKE 1 TABLET BY MOUTH WITH ONSET OF HEADACHE. MAY REPEAT 1 TIME AFTER 2 HOURS. MAX 2 TABLETS IN 24 HOURS.; Duration: 12 days Active Pantoprazole Sodium 40 MG TAKE 1 TABLET BY MOUTH TWICE DAILY; Duration: 90 Active Estrace 0.1 MG/GM 1 gm Vaginal 3 times per week 07/13/2024 Active traZODone HCl 100 MG TAKE 1 TABLET BY MO UT ONCE DAILY AT BEDTIME; Duration: 90 Active Atorvastatin Calcium 40 MG TAKE 1 TABLET BY MOUTH ONCE DAILY; Duration: 90 Active Immunizations Vaccine Route Administration Date Status Comme nts PNEUMOVAX 23 VACCINE Unknown 01/02/2025 Pending Vital Signs Blood pressure systolic 102 mm Hg 01/03/20 25 Blood pressure diastolic 70 mm Hg 025 Heart Rate 90 /min 01/02/2025 Height 65 in 01/02/2025 Weight 144.8 lbs 01/02/2025 BMI 24.09 kg/m2 01/02/2025 Encounters Encounter Location Date Provider Diagnosis [facility] [address] [place] [address] [place] [id number] 01/02/2025 Jeyson Benitez Adult general medica l examination Z00.00 ; Flank pain, acute R10.10 ; Hematuria R31.9 ; Depression with anxiety F41.8 ; History of ASCVD Z86.79 ; Osteopenia M85.80 ; Personal history of tobacco use Z87.891 ; COPD (chronic obstructive pulmonary disease) J44.9 ; Essential (primary) hypertension I10 ; Seasonal allergies J30.2 ; Dyslipidemia E78.5 and BMI 24.0-24.9, adult Z68.24 Assessments Encounter Date Diagnosis (ICD Code) Assessment Notes Treatment Notes Treatment Clinical Notes Section Notes 01/02/2025 Adult general medical examination (ICD-10 - Z00.00) Patient instructed to return to office Annually for Annual Wellness Visits to include annual screenings of Pain assessment, Functional Ability assessment, Cognitive Ability assessment, Fall Risk assessment, Depression screening and Bladder control screening. 01/02/2025 Flank pain, acute (ICD-10 - R10.10) See the following phone encounter. Stat CT scan shows no hydronephrosis or stones. There is some mild stranding around the left kidney. May represent early pyelonephritis 01/02/2025 Hematuria (ICD-10 - R31.9) 01/02/2025 Depression with anxiety (ICD-10 - F41.8) 01/02/2025 History of ASCVD (ICD-10 - Z86.79) 01/02/2025 Osteopenia (ICD-10 - M85.80) 01/02/2025 Personal history of tobacco use (ICD-10 - Z87.891) 01/02/2025 COPD (chronic obstructive pulmonary disease) (ICD-10 - J44.9) 01/02/2025 Essential (primary) hypertension (ICD-10 - I10) 01/02/2025 Seasonal allergies (ICD-10 - J30.2) 01/02/2025 Dyslipidemia (ICD-10 - E78.5) 01/02/2025 BMI 24.0-24.9, adult (ICD-10 - Z68.24) Plan Of Treatment Treatment Notes Assessment Notes Adult general medical examination Patien t instructed to return to office Annually for Annual Wellness Visits to include annual screenings of Pain assessment, Functional Ability assessment, Cognitive Ability assessment, Fall Risk assessment, Depression screening and Bladder control screening. Flank pain, acute See the following ph one encounter. Stat CT scan shows no hydronephrosis or stones. There is some mild stranding around the left kidney. May represent early pyelonephritis Next Appt Details Follow Up: 2 days, Reason: Provider Name:Jeyson Smith, 05/15/2025 02:30:00 PM, [address] [place] [facility] [address], [address], [place], [place], [id number], Progress Notes * BURT DORANOB:[birth year] (69 yo F)Acc No.[id number]:01/02/2025 Annual Wellness Visit Patient: WENDY ESCAMILLA Provider: Jeyson Benitez M.D. :1955 A ge:69 Y S ex:Female Date:01/02/2025 Address:[address] , [place], [id number] Subjective: * Chief Complaints: * 1 . AWV with checkup and labs. * HPI: U rology: She returns today with ongoing left flank pain and generally feeling worse after 4 days of empiric antibiotics. As noted, culture sample was not picked up by the lab and therefore no results are available. She complains of sores in her nose and mouth and mouth feels dry. Appetite has been diminished. No vomiting. She has had a mostly dry cough with some shortness of breath but mostly because she is splinting from her flank pain. She complains of urinary hesitancy but no hematuria. 69 year old female presents with c/o flank pain P t c/o left sided flank pain. Pt was unable to provide good sample on 12/29 so a u rine culture was dropped off Wednesday however, the economic specialist canceled and did not filler picker any labs. . G astroenterology: Pt is scheduled for a liver biopsy on 01/09/25 at [facility]. Ordered by Jonas Ball. She is not sure the reason for the liver biopsy other than having chronic mild elevation of her liver enzymes. * ROS: D ERMATOLOGY: no R chanell. n o H sherrie. G ASTROENTEROLOGY: no N ausea. n o V omiting. D iarrhea y es.? O PTHALMOLOGY: Negative for d enies vision issues. U ROLOGY: no D ifficulty urinating. n o B lood in urine. 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 Cath showed on [...] Ball 11/2020. * Hospitalization/Major Diagno stic Procedure: [facility] ER-diarrhea 03/2011, [facility] ER-back pain 06/2012, [facility]-heart attack 12/31/2014, [place] ER-constipation/impaction 09/2015, [place] ER-diarrhea 11/2015, [place] ER-Bronchitis 03/2018, Drs office in [place]-possible UTI, tested negative 12/2019. * Family History: F ather: . M other: alive. 2 brother(s) , 1 sister(s) . 1 son(s) , 1 daughter(s) . . * Social History: C URRENT TOBACCO USE S moking Status: P atient does NOT smoke quit after [place] 12/2014.?Caffeine: yes, frequency:. Home smoke detector use: [...] cap(s) Orally Two times a day , Medication List reviewed and reconciled with the patient * Allergies: P enicillin: anaphylaxis, Savella: memory loss and excessive drowsiness, Indomethacin: disoriented. Objective: * Vitals: W t: 144.8, Temp: 97.6, BP: 102/70, HR: 90, O2 Sat: 94% on RA, Nurse: ELYSSA, Ht: 65, BMI:24.09. * Examination: G eneral Examination: S he appears not to feel well. She is alert and oriented. Color is normal. No respiratory distress. She has some scabbed lesions under her nose. Mucous membranes are slightly dry. Chest with coarse breath sounds and are generally diminished. No rales or wheezes. Abdomen is soft and nondistended. There is moderate left CVA tenderness. * Physical Examination: G ENERAL: Pain Assessment: P ain level: 8, on a scale of 0-10 (with 10 being extreme pain). F unctional Status Assessment: P atient response to question of how often physical health interferes with daily activities: Occasionally. Able to perform ADLs-including meal preparation, grocery shopping, housework, laundry, taking medications or handling finances. Cognitive Status: alert and oriented. Ambulation Status: Fully ambulatory. F all Risk Assessment: I ndependant in ambulation, adequate lighting in home. Patient has fallen or had trouble walking within the past 12 months. D epression Screening: D enies depressed mood or anxiety. Describes emotional health as: positive. B ladder Control Screening: s ignificant problems. Assessment: * Assessment: 1. A dult general medical examination - Z00.00 (Primary) 2 . F lank pain, acute - R10.10 3 . H ematuria - R31.9 4 . D epression with anxiety - F41.8 5 . H istory of ASCVD - Z86.79 6 . O steopenia - M85.80 7 . P ersonal history of tobacco use - Z87.891 8 .?COPD (chronic obstructive pulmonary disease) - J44.9 9 . E ssential (primary) hypertension - I10 1 0. S easonal allergies - J30.2 1 1. D yslipidemia - E78.5 1 2. B MO 24.0-24.9, adult - Z68.24 Plan: * Treatment: 2. F lank pain, acute L AB: Urinalysis - Inhouse (Collection Date & Time - 01/02/2025) Value Reference Range C olor/Clarity straw * L euk 1+ * N itrite positive * U robili 3.2 * P rotein 1+ * p H 6.0 * B lood trace-intact * S p. Gr. 1.010 * K etone neg * B juanita neg * G ana maría neg * Yahaira Guadalupe 01/02/2025 10: 42:00 AM EDT > results reviewed w/ pt in office. urine culture ordered. ?Imaging: CT Scan : Abd and Pelvis, stone protocol (Performed Date - 01/02/2025)* Evie Clark 01/02/2025 10:1 5:51 AM EDT > no auth required through [facility] or [employer]; CPT code 44381; 01/02/2025 at 11am Notes: See the following phone encounter. Stat CT scan shows no hydronephrosis or stones. There is some mild stranding around the left kidney. May represent early pyelonephritis??3.?Hematuria?LAB: P-Culture, Urine (Collection Date & Time - 01/02/2025 10:16 AM)* Value Reference Range C ulture, Urine See Below - * S pecimen Source Urine - Void - * S ensitivity Panel See Below - * E scherichia coli ESBL 50,000-100,000 CFU/ml Escherichia coli ESBL - * Sang Regan 01/06/2025 08:19:51 PM EDT > Inpt results. ?LAB: Urinalysis - Inhouse (Collection Date & Time - 01/02/2025)* Value Reference Range C olor/Clarity straw * L euk 1+ * N itrite positive * U robili 3.2 * P rotein 1+ * p H 6.0 * B lood trace-intact * S p. Gr. 1.010 * K etone neg * B juanita neg * G ana maría neg * Yahaira Guadalupe 01/02/2025 10: 42:00 AM EDT > results reviewed w/ pt in office. urine culture ordered. ?Imaging: CT Scan : Abd and Pelvis, stone protocol (Performed Date - 01/02/2025)* Evie Clark 01/02/2025 10:1 5:51 AM EDT > no auth required through [facility] or [employer]; CPT code 13370; 01/02/2025 at 11am * Immunizations: PNEUMOVAX 23 VACCINE (Pending) * Procedure Codes: G 0439 ANNUAL WELLNESS VST; PPS SUBSQT VST, G2211 Complex e/m visit add on, 1090F PRES/ABSN URINE INCON ASSESS, 3288F FALL RISK ASSESSMENT DOCD, 1170F FXNL STATUS ASSESSED, 1159F MED LIST DOCD IN RCRD, 1003F LEVEL OF ACTIVITY ASSESS, 1036F TOBACCO NON-USER, 3017F COLORECTAL CA SCREEN DOC REV, G9899 [place], [address] Urinalysis, no micro, 1125F AMNT PAIN NOTED PAIN PRSNT, G8420 BMI<30 AND >=22 CALC & DOCU, G8783 BP SCR PRFRM RCMDD DEFIND SCR INTVL, G8752 MOST RECENT SYSTOLIC BP < 140MM HG, G8754 MOST RECENT DIASTOLIC BP < 90MM HG * Preventive Medicine: Counseling: E motional health: D iscussed ways to improve socialization. B ladder control: M ethods of controlling or managing leakage of urine discussed. E xercise: Patient advised to start, increase or maintain level of exercise/physical activity. I njury prevention: F all prevention discussed. Discussed need for cane/walker. Potential trip hazards discussed. Immunizations: P neumococcal r ecommended. I nfluenza u p to date. Screening / Special Tests: M ammogram R ecent history:08/03/2023, negative. C olonoscopy R ecent history:05/02/2024, negative, repeat 5 years. B one mineral Density?Recent history:11/01/2023, osteopenia. * Follow Up: 2 days * Images: Billing Information: * Visit Code: 49599 Office Visit, Est Pt., Level 3. Modifiers: 25 * Procedure Codes: G0439 ANNUAL WELLNESS VST; PPS SUBSQT VST. G2211 Complex e/m visit add on. 1090F PRES/ABSN URINE INCON ASSESS. 3288F FALL RISK ASSESSMENT DOCD. 1170F FXNL STATUS ASSESSED. 1159F MED LIST DOCD IN RCRD. 1003F LEVEL OF ACTIVITY ASSESS. 1036F TOBACCO NON-USER. 3017F COLORECTAL CA SCREEN DOC REV. G9899 [place]. [address] Urinalysis, no micro. 1125F AMNT PAIN NOTED PAIN PRSNT. G8420 BMI<30 AND >=22 CALC & DOCU. G8783 BP SCR PRFRM RCMDD DEFIND SCR INTVL. G8752 MOST RECENT SYSTOLIC BP < 140MM HG. G8754 MOST RECENT DIASTOLIC BP < 90MM HG. * Electronic signature of Jeyson Benitez MD on 05/15/2025 at 03:28 PM EST Sign off status: Pending * Provider: Jeyson Benitez M.D. Date: 0 01/02/2025 Generated for Adai anna/Aram/eTransmitting on: 1 07/15/2024 03:28 PM EST History and Physical Notes * HPI (History of Present Illness) Category Sub-Category Detail Notes Category Not es Urology flank pain Pt c/o left side d flank pain. Pt was unable to provide good sample on 12/29 so a urine culture was dropped off Wednesday however, the economic specialist canceled and did not filler picker any labs. Physical Examination Category Sub-Category Detail Notes Section Note s GENERAL Pain Assessment: Pain level: 8, on a scale of 0-10 (with 10 being extreme pain) Functional Status Assessment: Patient re sponse to question of how often physical health interferes with daily activities: Occasionally. Able to perform ADLs-including meal preparation, grocery shopping, housework, laundry, taking medications or handling finances.Cognitive Status: alert and oriented.Ambulation Status: Fully ambulatory Fall Risk Assessment: Independant in amb ulation, adequate lighting in home. Patient has fallen or had trouble walking within the past 12 months Depression Screening: Denies depressed m ood or anxiety. Describes emotional health as: positive Bladder Control Screening: significant p roblems Examination Category Sub-Category Detail Notes Category Not es General Examination She appe ars not to feel well. She is alert and oriented. Color is normal. No respiratory distress. She has some scabbed lesions under her nose. Mucous membranes are slightly dry. Chest with coarse breath sounds and are generally diminished. No rales or wheezes. Abdomen is soft and nondistended. There is moderate left CVA tenderness.
--- OUTSIDE RECORDS SUMMARY | 2025-01-04 08:45 | XMS_ITS ---
Author Organization [facility] Address [address] [facility] [address] [place] [id number] Care Team Providers Care Shoemaking Finisher Name Role Phone Jeyson Benitez Primary Care Provider [phone] Allergies Allergen (clinical drug ingredient) Drug/Non Drug Allergy documented on EMR Reaction Allergy Type Onset Date Status indomethacin Indomethacin disoriented Drug Allergy Active milnacipran Savella memory loss and excessive drowsiness Drug Allergy Active Penicillin anaphylaxis Drug Allergy Acti ve Results Component Value Reference Range Notes Urinalysis - Inhouse Reviewed date:01/04/2025 11:41:11 PM Interpretation: Performing Lab: Notes/Report: Color/Clarity yellow Leuk trace Nitrite neg Urobili 3.2 Protein trace pH 5.5 Blood neg Sp. Gr. 1.020 Ketone neg Bili neg Gluc neg REASON FOR VISIT Follow Up on CT/ Recheck Urine Medications Medication SIG (Take, Route, Frequency, Duration) Notes Start Date End Date Status Vitamin D3 50 MCG (1999) 1 tablet Orally Once a day; Duration: 30 day(s) Active Melatonin 5 MG 1 tablet at bedtime as needed Orally qhs Active LORazepam 1 MG 1 tablet at bedtime as needed Orally Once a day Active Linzess 290 MCG 1 capsule at least 3 0 minutes before the first meal of the day on an empty stomach Orally Once a day; Duration: 30 day(s) Active Baclofen 10 MG 1 tablet as needed O rally Twice a day Active Flonase Allergy Relief 50 MCG/ACT 1 spray in each nostril Nasally Twice a day Active Venlafaxine HCl ER 225 MG TAKE 1 TABLET BY MOUTH ONCE DAILY WITH FOOD; Duration: 30 Active Montelukast Sodium 10 MG 1 tablet Orally Once a day 02/29/2024 Active levoFLOXacin 750 MG 1 tablet Orally Once a day; Duration: 10 day(s) 01/02/2025 Active Pantoprazole Sodium 40 MG TAKE 1 TABLET BY MOUTH TWICE DAILY; Duration: 90 Active SUMAtriptan Succinate 50 MG TAKE 1 TABLET BY MOUTH WITH ONSET OF HEADACHE. MAY REPEAT 1 TIME AFTER 2 HOURS. MAX 2 TABLETS IN 24 HOURS.; Duration: 12 days Active oxyBUTYnin Chloride ER 10 MG TAKE 1 TABLET BY MOUTH ONCE DAILY; Duration: 90 days Active Atorvastatin Calcium 40 MG TAKE 1 TABLET BY MOUTH ONCE DAILY; Duration: 90 Active lamoTRIgine 150 MG TAKE 1 TABLET BY [facility] TWICE DAILY; Duration: 90 Active Calcium Citrate 150 MG 2 capsules Orally Once a day; Duration: 90 days Active hydrOXYzine HCl 10 MG as directed Orally Two times a day; Duration: 90 days Active Estrace 0.1 MG/GM 1 gm Vaginal 3 times per week 07/13/2024 Active traZODone HCl 100 MG TAKE 1 TABLET BY [facility] ONCE DAILY AT BEDTIME; Duration: 90 Active Isosorbide Dinitrate 30 MG 1 tablet Orally once daily; Duration: 90 days Active Multivitamin - 1 tab(s) orally once a day w/ Iron Active Prolia 60 MG/ML as directed subcutaneously every 6 months; Duration: 12 month(s) Active CareTouch CPAP & BIPAP Hose 1 DIRECTED Active QUEtiapine Fumarate ER 150 MG 1 tablet in the evening Orally Once a day Active Aspirin 81 MG 1 tab(s) orally once a day; Duration: 30 day(s) Active Nitroglycerin 0.4 MG 1 tab(s) sublingual ly q 5min prn x 3 Active Vital Signs Heart Rate 86 /min 01/04/2025 Height 65 in 01/04/2025 Weight 141.6 lbs 01/04/2025 BMI 23.56 kg/m2 01/04/2025 Encounters Encounter Location Date Provider Diagnosis [facility] [address] [facility] [address], [place] [id number] 01/04/2025 R Foreign Benitez Pyelonephritis N12 Assessments Encounter Date Diagnosis (ICD Code) Assessment Notes Treatment Notes Treatment Clinical Notes Section Notes 01/04/2025 Pyelonephritis (ICD-10 - N12) She has failed to oral antibiotics. Plan for direct admission to [facility] for IV fluids and IV antibiotics. Plan Of Treatment Treatment Notes Assessment Notes Pyelonephritis She has failed to or al antibiotics. Plan for direct admission to [facility] for IV fluids and IV antibiotics. Next Appt Details Follow Up: After discharge, Reason: Provider Name:Jeyson Smith, 05/15/2025 02:30:00 PM, [address] [facility] [address] [facility], [address], [place], [place], [id number], Progress Notes * BURT DORANOB:[birth year] (69 yo F)Acc No.[id number]:01/04/2025 Progress Notes Patient: WENDY ESCAMILLA Provider: Jeyson Benitez M.D. :1955 A ge:69 Y S ex:Female Date:01/04/2025 Address:[address] [place] [address] , [place], [id number] Subjective: * Chief Complaints: * [address] Up [address]/ Recheck Urine. * HPI: U rology: She returns for follow-up on her pyelonephritis and has seen no improvement since starting the Levaquin. Flank pain is unchanged. She has not been able to eat. She is taking some liquids. She feels weak. * ROS: D ERMATOLOGY: no R chanell. n o H sherrie. G ASTROENTEROLOGY: no N ausea. n o V omiting. D iarrhea y es.? O PTHALMOLOGY: Negative for d enies vision issues. 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 Cath showed on [...] Ball 11/2020. * Hospitalization/Major Diagno stic Procedure: [facility] ER-diarrhea 03/2011, [facility] ER-back pain 06/2012, [facility]-heart attack 12/31/2014, [place] ER-constipation/impaction 09/2015, [place] ER-diarrhea 11/2015, [place] ER-Bronchitis 03/2018, Drs office in [place]-possible UTI, tested negative 12/2019. * Family History: F ather: . M other: alive. 2 brother(s) , 1 sister(s) . 1 son(s) , 1 daughter(s) . . * Social History: C URRENT TOBACCO USE S moking Status: P atient does NOT smoke quit after [place] 12/2014.?Caffeine: yes, frequency:. Home smoke detector use: [...] MOUTH ONCE DAILY WITH FOOD , Taking levoFLOXacin 750 MG Tablet 1 tablet Orally Once a day , Discontinued Cefdinir 300 MG Capsule 1 cap(s) Orally Two times a day , Medication List reviewed and reconciled with the patient * Allergies: P enicillin: anaphylaxis, Savella: memory loss and excessive drowsiness, Indomethacin: disoriented. Objective: * Vitals: W t: 141.6, Temp: 97.4, HR: 86, Nurse: ELYSSA/ADITI, Ht: 65, BMI:23.56. * Examination: G eneral Examination: S he appears not to feel well. Somewhat lethargic. Mucous membranes are dry. Lungs are clear. Marked left CVA tenderness. Abdomen soft and nondistended. * Physical Examination: L ABS: See labs U rine culture from 2 days ago is not yet available. Assessment: * Assessment: 1. P yelonephritis - N12 (Primary) Plan: * Treatment: Value Reference Range C olor/Clarity yellow * L euk trace * N itrite neg * U robili 3.2 * P rotein trace * p H 5.5 * B lood neg * S p. Gr. 1.020 * K etone neg * B juanita neg * G ana maría neg * Yahaira Guadalupe 01/04/2025 03: 34:49 PM EDT > results reviewed w/ pt in office Sang Regan 01/04/2025 11:40:46 PM EDT > Inpatient results. Notes: She has failed to oral antibiotics. Plan for direct admission to [facility] for IV fluids and IV antibiotics.?? * Procedure Codes: 8 1002 Urinalysis, no micro * Follow Up: A fter discharge * Images: Billing Information: * Visit Code: * Procedure Codes: 39491 Urinalysis, no micro. * Electronic signature of Jeyson Benitez MD on 05/15/2025 at 03:27 PM EST Sign off status: Pending * Provider: Jeyson Benitez M.D. Date: 0 01/04/2025 Generated for Elkin castillo/Aram/Samransmitting on: 1 07/15/2024 03:27 PM EST History and Physical Notes * Physical Examination Category Sub-Category Detail Notes Section Note s LABS See labs Urine culture fr om 2 days ago is not yet available Examination Category Sub-Category Detail Notes Category Not es General Examination She appe ars not to feel well. Somewhat lethargic. Mucous membranes are dry. Lungs are clear. Marked left CVA tenderness. Abdomen soft and nondistended.
--- OUTSIDE RECORDS SUMMARY | 2025-01-16 04:45 | XMS_ITS ---
Author Organization [facility] Address [address] [facility] [address] [place] [id number] Care Team Providers Care Segmental Paver Installer Name Role Phone Jeyson Benitez Primary Care [...] Interpretation: Performing Lab: Notes/Report: Test performed by [facility] [address] [place] [address] , [address], [place] [address] Tim Parrish MD, Container Shop Welder CLIA: [id number] Specimen Source Urine - Void Culture, Urine [...] 100 MG TAKE 1 TABLET BY MO [facility] ONCE DAILY AT BEDTIME; Duration: 90 Active [...] Nasally Twice a day Active Vital Signs Blood pressure systolic 112 mm Hg 01/17/20 25 Blood pressure diastolic 70 mm Hg 07/08/2 025 Heart Rate 72 /min 01/16/2025 Height 65 in 01/16/2025 Weight 140.8 lbs 01/16/2025 BMI 23.43 kg/m2 01/16/2025 Encounters Encounter Location Date Provider Diagnosis [facility] [address] [place] [address] [address] [place] [id number] 01/16/2025 Jeyson Benitez Pyelonephritis N12 Assessments Encounter [...] phone to repo rt test results, Reason: Provider Name:Jeyson Munguia gianfranco, 05/15/2025 02:30:00 PM, [address] [place] [address], [address], [place], [id number], Progress Notes * BURT DORANOB:[birth year] (69 yo F)Acc No.[id number]:01/16/2025 Patient: WENDY ESCAMILLA Provider: Jeyson Benitez M.D. :1955 A ge:69 Y S ex:Female Date:01/16/2025 Address:[address] [place] [address] , [place], [id number] Subjective: * Chief Complaints: * 1 . F/U Hospital D/C. * HPI: H PI: She returns to follow-up on recent admission to [facility] for pyelonephritis. 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 Cath showed on [...] 11/2020. * Hospitalization/Major Diagno stic Procedure: [facility] ER-diarrhea 03/2011, [facility] ER-back pain 06/2012, [facility]-heart attack 12/31/2014, [place] ER-constipation/impaction 09/2015, [place] ER-diarrhea 11/2015, [place] ER-Bronchitis 03/2018, Drs office in [place]-possible UTI, tested negative 12/2019. * Family History: F ather: . M other: alive. 2 brother(s) , 1 sister(s) . 1 son(s) , 1 daughter(s) . . * Social History: C URRENT TOBACCO USE S moking Status: P atient does NOT smoke quit after [place] 12/2014.?Caffeine: yes, frequency:. Home smoke detector use: [...] CVA tenderness. Assessment: * Assessment: 1. P yelonephritis - [...] G 2211 Complex e/[place], [address] Urinalysis, no micro * Follow Up: v ia phone to report test results * Images: Billing Information: * Visit Code: 15480 Office Visit, Est Pt., Level 3. * Procedure Codes: G2211 Complex e/[place]. [address] Urinalysis, no micro. * Electronic signature of Jeyson Benitez MD on 05/15/2025 at 03:28 PM EST Sign off status: Pending * Provider: Jeyson Benitez M.D. Date: 0 01/16/2025 Generated for Elkin castillo/Aram/Linseyitting on: 1 07/15/2024 03:28 PM EST History and Physical Notes * HPI (History of Present Illness) Category Sub-Category Detail Notes Category Not es HPI She returns to follow-up on recent admission to [facility] for pyelonephritis. She completed a 7-day course [...]
--- OUTSIDE RECORDS SUMMARY | 2025-02-13 10:30 | XMS_ITS ---
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 Role Phone Jeyson Benitez Primary Care Provider [phone] Allergies Allergen (clinical drug ingredient) Drug/Non Drug [...] HCl 100 MG TAKE 1 TABLET BY [facility] ONCE DAILY AT BEDTIME; Duration: 90 [...] 02/13/2025 Encounters Encounter Location Date Provider Diagnosis [facility] [address] [facility] [address] [facility] [address] [place] [phone] 02/13/2025 Jeyson Benitez Pyelonephritis N12 Assessments Encounter Date Diagnosis (ICD Code) Assessment Notes Treatment Notes Treatment Clinical Notes Section Notes 02/13/2025 Pyelonephritis (ICD-10 - N12) Plan Of Treatment Next Appt Details Follow Up: after tests, Reas on: Provider Name:Jeyson Smith, 05/15/2025 02:30:00 PM, [address] [facility] [address] [facility], [address], [place], [id number], Progress Notes * BURT DORANOB:[birth year] 60 (69 yo F)Acc No.[id number]:02/13/2025 Progress Notes Patient: WENDY ESCAMILLA Provider: Jeyson Benitez M.D. :1955 A ge:69 Y S ex:Female Date:02/13/2025 Address:[address] [place] [address] , [id number] Subjective: * Chief Complaints: [...] Ball 11/2020. * Hospitalization/Major Diagno stic Procedure: [facility] ER-diarrhea 03/2011, [facility] ER-back pain 06/2012, [facility]-heart attack 12/31/2014, [place] ER-constipation/impaction 09/2015, [place] ER-diarrhea 11/2015, [place] ER-Bronchitis 03/2018, Drs office in [place]-possible UTI, tested negative 12/2019. * Family History: [...] EDT > no auth required; CPT code 17160; faxed to [facility] Lin Pinedo 02/21/2025 11:03:14 AM EDT > See phone encounter * Procedure Codes: 8 1002 Urinalysis, no micro, G2211 Complex e/m visit add on * Follow Up: a fter tests * Images: Billing Information: * Visit Code: 66365 Office Visit, Est Pt., Level 3. * Procedure Codes: 95469 Urinalysis, no micro. G2211 Complex e/m visit add on. * Electronic signature of Jeyson Benitez MD on 05/15/2025 at 03:27 PM EST Sign off status: Pending * Provider: Jeyson Benitez M.D. Date: 0 02/13/2025 Generated for Adai anna/Aram/eTransmitting on: 1 07/15/2024 03:27 PM EST History and Physical Notes * Examination Category Sub-Category Detail Notes Category Not es General Examination Heart: RSR Lungs: clear to auscultatio n Abdomen: Mild left CVA tender ness to percussion General Appearance: NAD
--- OUTSIDE RECORDS SUMMARY | 2025-02-22 04:00 | XMS_ITS ---
Author Organization [facility] Address 1210 [facility] 36 [facility] [address] [place] [phone] Care Team Providers Care Microarray Operations Vice President Name Role Phone Jeyson Benitez Primary Care Provider Work In, Schedule Unavailable Unavailable REASON FOR VISIT urine culture only Encounters Encounter Location Date Provider Diagnosis [facility] [address] [place] [phone] 02/22/2025 Schedule Work In Plan Of Treatment Next Appt Details Provider Name:Jeyson Smith, 05/15/2025 02:30:00 PM, [address], [address], [place], [phone], Progress Notes * BURT DORANOB:[birth year] (69 yo F)Acc No.[id number]:02/22/2025 Patient: WENDY ESCAMILLA Provider: John mccabe Work In :1955 A ge:69 Y S ex:Female Date:02/22/2025 Address:[address] [place] [address] [address] [place] Pcp:Jeyson Benitez Subjective: * Chief Complaints: * 1 . Urine culture only. * Medical History: Objective: * Vitals: Assessment: Plan: * Treatment: * Images: Billing Information: * Visit Code: * Procedure Codes: * Electronic signature of Ale finch Work In on 05/15/2025 at 03:27 PM EST Sign off status: Pending * Provider: John mccabe Work In Date: 0 02/22/2025 Generated for Elkin castillo/Aram/Clem on: 1 07/15/2024 03:27 PM EST
--- OUTSIDE RECORDS SUMMARY | 2025-02-26 05:15 | XMS_ITS ---
Author Organization [facility] Address [address] [facility] [address] [place], [place] [id number] Care Team Providers Care Assessment Rn Name Role Phone Jeyson Benitez Primary Care Provider Marlena Antonio Unavailable [phone] Allergies Allergen (clinical drug ingredient) Drug/Non Drug [...] Interpretation:3.5 Performing Lab: Notes/Report: Test performed by [employer], [employer] [facility] , [address], [place] [address] Tim Parrish MD, Appeals Specialist CLIA: [id number] Uric Acid 3.5 2.4-7.0 mg/dL Reason For [...] and gives away; 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 Ramila Oliveira Taylor, [...] MG TAKE 1 TABLET BY MO [facility] ONCE DAILY AT BEDTIME; Duration: [...] Status Risk Notes Problem Chronic respiratory failure (09680143) Chronic respiratory failure with hypoxia (J96.11) Active confirmed Vital Signs Blood pressure systolic 116 mm Hg 02/27/20 25 Blood pressure diastolic 60 mm Hg 025 Heart Rate 70 /min 02/26/2025 Height 65 in 02/26/2025 Weight 144.4 lbs 02/26/2025 BMI 24.03 kg/m2 02/26/2025 Encounters Encounter Location Date Provider Diagnosis [facility] [address] [id number] 02/26/2025 Marlena Antonio Acute pain of left knee M25.562 ; Acute pain of left wrist M25.532 ; Chronic respiratory failure with hypoxia J96.11 and BMI 24.0-24.9, adult Z68.24 Assessments Encounter Date Diagnosis (ICD Code) Assessment Notes Treatment Notes Treatment Clinical Notes Section Notes 02/26/2025 Acute pain of left knee (ICD-10 - M25.562) discussed xray, MRI and orthoped referral; will do l1nzbjen at orOrtho of her choice; she staes [...] xray, MRI and orthoped referral; [facility]hnp [facility]; she staes they always do Xray and can scheduled MRI if needed; encouraged use of cane and/or walker for steadiness and fall prevention Acute pain of left wrist will check for gout; wrist splint; orthoped referral Referrals Referral Date Details 02/26/2025 02/26/2025, . Orthop edics Next Appt Details Follow Up: prn, Reason: Provider Name:Jeyson Smith, 05/15/2025 02:30:00 PM, [address], [address] , [place], [place], [id number], Progress Notes * BURT DORANOB:[birth year] (69 yo F)Acc No.[id number]:02/26/2025 Progress Notes Patient: WENDY ESCAMILLA Provider: FAWN Wise :1955 A ge:69 Y S ex:Female Date:02/26/2025 Address:[address] [place] [address] , [place], [place] Pcp:Jeyson Benitez Subjective: * Chief Complaints: [...] Ball 11/2020. * Hospitalization/Major Diagno stic Procedure: [facility] ER-diarrhea 03/2011, [facility] ER-back pain 06/2012, [facility]-heart attack 12/31/2014, [place] ER-constipation/impaction 09/2015, [place] ER-diarrhea 11/2015, [place] ER-Bronchitis [...] failure with hypoxia - J96.11 ?4. B [place] 24.0-24.9, adult - Z68.24 Plan: * Treatment: [...] Antonio 02/27/2025 02:33:47 PM EDT > Notes: discussed xray, MRI and orthoped referral; will do u3mfcecs at orOrt of her choice; she staes they always [...] G 2211 Complex e/[place], [address] CBC WITH AUTO DIFF, 1036F TOBACCO NON-USER, G8783 BP SCR PRFRM RCMDD DEFIND SCR INTVL, G8752 MOST RECENT SYSTOLIC BP < 140MM HG, G8754 MOST RECENT DIASTOLIC BP < 90MM HG, G8420 BMI<30 AND >=22 CALC & DOCU * Follow Up: p rn * Images: Drawing:[facility] addendum 2024 Billing Information: * Visit Code: 40588 Office Visit, Est Pt., Level 3. * Procedure Codes: G2211 Complex e/[place]. [address] CBC WITH AUTO DIFF. 1036F TOBACCO NON-USER. G8783 BP SCR PRFRM RCMDD DEFIND SCR INTVL. G8752 MOST RECENT SYSTOLIC BP < 140MM HG. G8754 MOST RECENT DIASTOLIC BP < 90MM HG. G8420 BMI<30 AND >=22 CALC & DOCU. * Electronic signature of Rosa Antonio APRN on 05/15/2025 at 03:29 PM EST Sign off status: Pending * Provider: FAWN Wise Date: 0 02/26/2025 Generated for Elkin castillo/Aram/Clem on: 1 07/15/2024 03:29 PM EST History and Physical Notes * [...]
--- OUTSIDE RECORDS SUMMARY | 2025-05-07 05:15 | XMS_ITS ---
Author Organization [facility] Address [address] [facility] [address] [place] [id number] Care Team Providers Care Consultant [employer]. 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 ) Name Role Phone Jeyson Benitez Primary Care Provider Sang Regan [phone] Allergies Allergen (clinical drug ingredient) Drug/Non Drug Allergy documented on EMR Reaction Allergy Type Onset Date Status indomethacin Indomethacin disoriented Drug Allergy Active milnacipran Savella memory loss and excessive drowsiness Drug Allergy Active Penicillin anaphylaxis Drug Allergy Acti ve Results Component Value Reference Range Notes CBC Fingerstick (in house) Reviewed date:05/07/2025 05:16:57 PM Interpretation: Performing Lab: Notes/Report: wbc 12.6 3.5 - 10 lym 18.6% 15 - 50 mid 5.2% 2 - 15 gran 76.2% 35 - 80 rbc 4.74 3.5 - 5.5 hgb 14.4 11.5 - 16.5 hct 43.7 35 - 55 mcv 92.0 75 - 100 mch 30.5 25 - 35 mchc 33.1 31 - 38 plat 256 100 - 400 CBC Fingerstick (in house) Reviewed date:05/07/2025 05:16:57 PM Interpretation: Performing Lab: Notes/Report: wbc 12.6 3.5 - 10 lym 18.6% 15 - 50 mid 5.2% 2 - 15 gran 76.2% 35 - 80 rbc 4.74 3.5 - 5.5 hgb 14.4 11.5 - 16.5 hct 43.7 35 - 55 mcv 92.0 75 - 100 mch 30.5 25 - 35 mchc 33.1 31 - 38 plat 256 100 - 400 REASON FOR VISIT cough, sore throat, sick for 10 days Medications Medication SIG (Take, Route, Frequency, Duration) Notes Start Date End Date Status Aspirin 81 MG 1 tab(s) orally once a day; Duration: 30 day(s) Active Prolia 60 MG/ML as directed subcutaneously every 6 months; Duration: 12 month(s) Active Isosorbide Dinitrate 30 MG 1 tablet Orally once daily; Duration: 90 days Active QUEtiapine Fumarate ER 200 MG 1 tablet in the evening Orally Once a day Active hydrOXYzine HCl 10 MG as directed Orally Two times a day; Duration: 90 days Active Linzess [...] Once a day; Duration: 30 day(s) Active CareTouch CPAP & BIPAP Hose 1 DIRECTED Active Multivitamin - 1 tab(s) orally once a day w/ Iron Active Baclofen 10 MG 1 tablet as needed Orally Twice a day Active Flonase Allergy Relief 50 MCG/ACT 1 spray in each nostril Nasally Twice a day Active Hycodan 5-1.5 MG 1 tablet as needed Orally every 6 hrs 05/07/2025 Active Pantoprazole Sodium 40 MG 1 tablet 1/2 to 1 hour before meals Orally twice a day; Duration: 90 days Active Doxycycline Hyclate 100 MG 1 capsule Orally Once a day; Duration: 7 days 05/07/2025 Active Venlafaxine HCl ER 225 MG 1 tablet with food Orally Once a day; Duration: 90 days Active oxyBUTYnin Chloride ER 10 MG 1 tablet Orally Once a day; Duration: 90 days Active Macrobid 100 MG 1 capsule with food Orally every 12 hrs 02/22/2025 Not-Taking Montelukast Sodium 10 MG 1 tablet Orally Once a day; Duration: 90 days Active SUMAtriptan Succinate 50 MG 1 tablet as needed, may take second dose at least 2 hours after first dose up to 2 tablets per day as needed Orally Active Macrodantin 100 MG 1 capsule at bedtime with food or milk Orally twice a day; Duration: 10 days 01/16/2025 Not-Taking Atorvastatin Calcium 20 MG TAKE 1 TABLET BY MOUTH ONCE DAILY; Duration: 90 days Active Estrace 0.1 MG/GM 1 gm Vaginal 3 times per week 07/13/2024 Active Ezetimibe 10 MG 1 tablet Orally Once a day; Duration: 90 days Active lamoTRIgine 150 MG TAKE 1 TABLET BY DOV TH TWICE DAILY; Duration: 90 Active Calcium Citrate 150 MG 2 capsules Orally Once a day; Duration: 90 days Active traZODone HCl 100 MG TAKE 1 TABLET BY MO [facility] ONCE DAILY AT BEDTIME; Duration: 90 Active Vital Signs Blood pressure systolic 116 mm Hg 05/07/20 25 Blood pressure diastolic 68 mm Hg 025 Heart Rate 74 /min 05/07/2025 Height 65 in 05/07/2025 Weight 148.8 lbs 05/07/2025 BMI 24.76 kg/m2 05/07/2025 Encounters Encounter Location Date Provider Diagnosis [facility] [address] [facility] [address] [place] [phone] 05/07/2025 Sang Regan Acute bronchitis, unspecified organism J20.9 Assessments Encounter Date Diagnosis (ICD Code) Assessment Notes Treatment Notes Treatment Clinical Notes Section Notes 05/07/2025 Acute bronchitis, unspecified organism (ICD-10 - J20.9) Plan Of Treatment Medication Medication Name Sig Start Date Stop Date Notes Hycodan 5-1.5 MG 1 tablet as needed O rally every 6 hrs 05/07/2025 Doxycycline Hyclate 100 MG 1 capsule Ora lly Once a day; Duration: 7 days 05/07/2025 Next Appt Details Follow Up: prn, Reason: Provider Name:Jeyson Smith, 05/15/2025 02:30:00 PM, [address] [facility], [address], [place], [phone], Progress Notes * BURT DORANOB:[birth year] (69 yo F)Acc No.[id number]:05/07/2025 Progress Notes Patient: Jaswinder WENDY VELAZQUEZ Provider: Jefferson Regan M.D. :1955 A ge:69 Y S ex:Female Date:05/07/2025 Address:[address] [place] [address] [address] [id number] Pcp:Jeyson Benitez Subjective: * Chief Complaints: * 1 . Cough, sore throat, sick for 10 days. * HPI: E NT/respiratory: 69 year old female presents with c/o sore throat f eels scratchy, swallowing painful, after cough, constant. c/o cough g reenish yellow sputum production, unable to sleep at night due to cough. c/o nasal congestion a ll the time. c/o Fever P t states she has a fever at night.Pt states she doesn't check temp but sweats all night. Pt was prescribed benzonatate, prednisone and Z-Carlos on 04/28 by [facility]. c/o Short of Breath with exertion. c/o headache p ressure like sensation. c/o chest congestion w ith production of sputum. 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 Cath showed on [...] Ball 11/2020. * Hospitalization/Major Diagno stic Procedure: [facility] ER-diarrhea 03/2011, [facility] ER-back pain 06/2012, [facility]-heart attack 12/31/2014, [place] ER-constipation/impaction 09/2015, [place] ER-diarrhea 11/2015, [place] ER-Bronchitis 03/2018, [facility] office in [place]-possible UTI, tested negative 12/2019. * Family History: F ather: . M other: alive. 2 brother(s) , 1 sister(s) . 1 son(s) , 1 daughter(s) . . * Social History: C URRENT TOBACCO USE: No S moking Status: P atient does NOT smoke quit after [place] 12/2014. C affeine: yes, frequency:. Home smoke detector use: yes. Marital Status: . 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 Past smoking status: PPD: 1, years:30 ,determination:. Alcohol: no. * Medications: T aking Flonase Allergy Relief 50 MCG/ACT Suspension 1 [...] Vaginal 3 times per week , Taking Atorvastatin Calcium 20 MG Tablet TAKE 1 TABLET BY MOUTH ONCE DAILY , Taking lamoTRIgine 150 MG Tablet TAKE 1 TABLET BY MOUTH TWICE DAILY , Taking Ezetimibe 10 MG Tablet 1 tablet Orally Once a day , Taking Venlafaxine HCl ER 225 MG Tablet Extended Release 24 Hour 1 tablet with food Orally Once a day , Taking oxyBUTYnin Chloride ER 10 MG Tablet Extended Release 24 Hour 1 tablet Orally Once a day , Taking Montelukast Sodium 10 MG Tablet 1 tablet Orally Once a day , Taking SUMAtriptan Succinate 50 MG Tablet 1 tablet as needed, may take second dose at least 2 hours after first dose up to 2 tablets per day as needed Orally , Taking Pantoprazole Sodium 40 MG Tablet Delayed Release 1 tablet 1/2 to 1 hour before meals Orally twice a day , Not-Taking Macrodantin 100 MG Capsule 1 capsule at bedtime with food or milk Orally twice a day , Not-Taking Macrobid 100 MG Capsule 1 capsule with food Orally every 12 hrs , Medication List reviewed and reconciled with the patient * Allergies: P enicillin: anaphylaxis, Savella: memory loss and excessive drowsiness, Indomethacin: disoriented. Objective: * Vitals: W t: 148.8, Temp: 98.8, BP: 116/68, HR: 74, Nurse: SF, Ht: 65, BMI:24.76. * Examination: E NT/Respiratory: General Appearance: N AD, coughing. E yes: P ERRLA, sclera clear. O ral cavity : e rythema without exudate on pharynx. N dede : n o cervical lymphadenopathy. H eart : R RR, normal S1 S2. L ungs: g ood air movement, coarse breath sounds due to upper airway congestion. Assessment: * Assessment: 1. A cute bronchitis, unspecified organism - J20.9 (Primary) Plan: * Treatment: Value Reference Range w bc 12.6 3.5 - 10 * l ym 18.6% 15 - 50 * m id 5.2% 2 - 15 * g ran 76.2% 35 - 80 * r bc 4.74 3.5 - 5.5 * h gb 14.4 11.5 - 16.5 * h ct 43.7 35 - 55 * m cv 92.0 75 - 100 * m ch 30.5 25 - 35 * m chc 33.1 31 - 38 * p lat 256 100 - 400 * Shantal Bain 05/07/2025 11 :09:15 AM EDT > Provider reviewed results while patient in office.Sang Regan 05/07/2025 05:16:50 PM EDT > * Procedure Codes: G 2211 Complex e/m visit add on * Follow Up: p rn * Images: Billing Information: * Visit Code: 71774 Office Visit, Est Pt., Level 3. * Procedure Codes: G2211 Complex e/m visit add on. * Electronic signature of Bernadette Regan MD on 05/15/2025 at 03:28 PM EST Sign off status: Pending * Provider: Jefferson Regan M.D. Date: Generated for Elkin castillo/Aram/Clem on: 07/15/2024 03:28 PM EST History and Physical Notes * HPI (History of Present Illness) Category Sub-Category Detail Notes Category Not es ENT/respiratory sore throat feels scratchy, swallowing painful, after cough, constant Short of Breath with exertion cough greenish yellow sput um production, unable to sleep at night due to cough Fever Pt states she has a fever at night.Pt states she doesn't check temp but sweats all night. Pt was prescribed benzonatate, prednisone and Z-Carlos on 04/28 by [facility] headache pressure like sensat ion chest congestion with production of s putum nasal congestion all the time Examination Category Sub-Category Detail Notes Category Not es ENT/Respiratory Oral cavity : erythema without exudate on pharynx Neck : no cervical lymphade nopathy Heart : RRR, normal S1 S2 Lungs: good air movement, c oarse breath sounds due to upper airway congestion General Appearance: NAD, coughing Eyes: PERRLA, sclera clear
--- OUTSIDE RECORDS SUMMARY | 2025-05-10 11:15 | XMS_ITS ---
Author Organization [facility] Address [address] [facility] [address] [place] [id number] Care Team Providers Care Web Publisher Name Role Phone Jeyson Benitez Primary Care Provider [phone] China Sánchez [phone] Allergies Allergen (clinical drug ingredient) Drug/Non Drug [...] - 38 plat 234 100 - 400 REASON FOR VISIT not feeling better Medications [...] Signs Blood pressure systolic 120 mm Hg 10/30/20 25 Blood pressure diastolic 60 mm Hg 025 Heart Rate 74 /min 05/10/2025 Height 65 in 05/10/2025 Weight 148.4 lbs 05/10/2025 BMI 24.69 kg/m2 05/10/2025 Encounters Encounter Location Date Provider Diagnosis [facility] [address] [facility] 36 [facility] [address] [place] [phone] 05/10/2025 China Sánchez Acute bronchitis, unspecified organism [...] Date H-Sputum Culture with Gram Stain 025 TEN-Upper Respiratory PCR 05/10/2025 Next Appt Details Follow Up: via phone to repo rt test results, Reason: Provider Name:Jeyson Smith, 05/15/2025 02:30:00 PM, [address] [facility] 36 [facility], [address], [place], [phone], Progress Notes * BURT DORANOB:[birth year] (69 yo F)Acc No.[id number]:05/10/2025 Progress Notes Patient: WENDY ESCAMILLA Provider: RANI Dumont :1955 A ge:69 Y S ex:Female Date:05/10/2025 Address:[address] [place] [address] , [place]-[id number] Pcp:Jeyson Benitez Subjective: * Chief Complaints: * 1 . Not feeling better. * HPI: E NT/respiratory: 69 year old female presents with c/o sore throat. c/o cough. c/o nasal congestion P t sts she has had 2 rounds of antibiotics and sts nothing has helped. Pt sts Wednesday she started out at [facility] and then saw Dr. Regan Wednesday or [...] Ball 11/2020. * Hospitalization/Major Diagno stic Procedure: [facility] ER-diarrhea 03/2011, [facility] ER-back pain 06/2012, [facility]-heart attack 12/31/2014, [place] ER-constipation/impaction 09/2015, [place] ER-diarrhea 11/2015, [place] ER-Bronchitis 03/2018, Drs office in [place]-possible UTI, tested negative 12/2019. * Family History: F ather: . M other: alive. 2 brother(s) , 1 sister(s) . 1 son(s) , 1 daughter(s) . . * Social History: C URRENT TOBACCO USE: No S moking Status: P fozia does NOT smoke quit after [place] 12/2014. C affeine: yes, frequency:. 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 * Examination: E NT/Respiratory: [...] Procedure Codes: 3 6416 CAPILLARY BLOOD DRAW, 32490 CBC WITH AUTO DIFF * Follow Up: v ia phone to report test results * Images: Billing Information: * Visit Code: 05817 Office Visit, Est Pt., Level 3. * Procedure Codes: 27138 CAPILLARY BLOOD DRAW. 02090 CBC WITH AUTO DIFF. * Electronic signature of RANI Umanzor on 05/15/2025 at 03:28 PM EST Sign off status: Pending * Provider: RANI Dumont Date: Generated for Elkin castillo/Aram/Clem on: 07/15/2024 03:28 PM EST History and Physical Notes * HPI (History of Present Illness) Category Sub-Category Detail Notes Category Not es ENT/respiratory sore throat cough nasal congestion Pt sts she has had 2 rounds of antibiotics and sts nothing has helped. Pt sts Wednesday she started out at [facility] and then saw Dr. Regan Wednesday or [...]
--- OUTSIDE RECORDS SUMMARY | 2025-05-15 15:28 | XMS_ITS | Patient Health Record ---
Author Organization [facility] Address [address] [facility] [address] ED[place] Khan [id number] Care Team Providers Care [place] Supervisor Name Role Phone Jeyson Benitez Primary Care Provider Sang Regan Unavailable [phone] Marlena Antonio Unavailable [phone] Work In, Schedule Unavailable Unavailable China Sánchez Unavailable [phone] Allergies Allergen (clinical drug ingredient) Drug/Non Drug Allergy documented on EMR Reaction Allergy Type Onset Date Status indomethacin Indomethacin disoriented Drug Allergy Active milnacipran Savella memory loss and excessive drowsiness Drug Allergy Active Penicillin anaphylaxis Drug Allergy Acti ve Results Component Value Reference Range Notes Influenza Screen (in house) Reviewed date:01/03/2025 12:11:45 [...] See duplicate order Urinalysis - Inhouse Reviewed date:01/04/2025 11:41:11 PM Interpretation: Performing Lab: Notes/Report: Color/Clarity yellow Leuk trace Nitrite neg Urobili 3.2 Protein trace pH 5.5 Blood neg Sp. Gr. 1.020 Ketone neg Bili neg Gluc neg Urinalysis - Inhouse Reviewed date:02/14/2025 09:38:34 AM Interpretation: Performing Lab: Notes/Report: Color/Clarity yellow/clear Leuk Trace Nitrite Neg Urobili 3.2 Protein Neg pH 5.5 Blood Neg Sp. Gr. 1.015 Ketone Neg Bili Neg Gluc Neg CT Scan : Abd & Pelvis w/o c ontrast Reviewed date:02/21/2025 11:03:18 AM Interpretation:indeterminate renal mass, moderate fecal impaction Performing Lab: Notes/Report: indeterminate renal mass, moderate fecal impaction CBC Fingerstick (in house) ( Not yet reviewed by provider) Interpretation: Performing Lab: Notes/Report: wbc 12.5 3.5 - 10 lym 20.7% 15 - 50 mid 6.6% 2 - 15 gran 72.7% 35 - 80 rbc 4.89 3.5 - 5.5 hgb 14.9 11.5 - 16.5 hct 44.9 35 - 55 mcv 91.7 75 - 100 mch 30.5 25 - 35 mchc 33.2 31 - 38 plat 325 100 - 400 CT Scan : Abdomen and pelvis with IV contrast only Reviewed date:03/08/2025 10:31:23 PM Interpretation:renal cyst; retained stool Performing Lab: Notes/Report: renal cyst; retained stool Glycohemoglobin A1c (in hous e) Reviewed date:06/29/2024 04:17:23 PM Interpretation:5.3% Normal Performing Lab: Notes/Report: 5.3% Normal glycohemoglobin 5.3% 5 - 6.5 % P-CBC with Diff plus Absolut e Counts Reviewed date:06/29/2024 04:17:23 PM Interpretation:Normal Performing Lab: Notes/Report: CLIA: [id number] Tim Parrish MD, Care Management Specialist [address] [place] [address] , [place] [address] Test performed by [facility] WBC 6.1 3.8-11.5 K/uL Red Blood Cell [...] 51 Performing Lab: Notes/Report: Test performed by [facility] , [place] [address] Tim Parrish MD, Care Management Specialist CLIA: [id number] Sodium 139 135-145 mmol/L Potassium 4.9 3.5-5.3 [...] developed and its performance characteristics determined by [facility]. It has not been cleared or approved by the US Food and Drug Administration. This test was performed in a CLIA certified laboratory and is intended for clinical purposes. Performed By: [facility] [address] [place] [address] Care Management Specialist: Cesar Arnold MD, PhD CLIA Number: [id number] P-Folate Reviewed date:06/29/2024 04:17:23 PM Interpretation:Normal Performing Lab: Notes/Report: Test performed by [facility], [address] , [address], [place] [address] Tim Parrish MD, Care Management Specialist CLIA: [id number] Folate >20 >4.59 ng/mL P-Selenium, Serum/Plasma Reviewed [...] developed and its performance characteristics determined by [facility]. It has not been cleared or approved by the US Food and Drug Administration. This test was performed in a CLIA certified laboratory and is intended for clinical purposes. Performed By: [facility] [address] [place] [address] Care Management Specialist: Cesar Arnold MD, PhD CLIA Number: [id number] P-Ferritin Reviewed date:06/29/2024 04:17:23 PM Interpretation:Normal Performing Lab: Notes/Report: Test performed by [facility] [address] [place], [place] [address] [place] , [place] [address] Tim Parrish MD, Care Management Specialist CLIA: [id number] Ferritin 25.1 13.0-301.0 ng/mL P-T4 Free (thyroxine) Reviewed date:06/29/2024 04:17:23 PM Interpretation:Normal Performing Lab: Notes/Report: Test performed by [facility] [address] [place], [place] [address] [place] , [place] [address] Tim Parrish MD, Care Management Specialist CLIA: [id number] Thyroxine Free (free T4) 0.94 0.86-1.76 ng/dL P-Hemoglobin A1C Reviewed date:06/29/2024 04:17:23 PM Interpretation:Normal Performing Lab: Notes/Report: Test performed by [facility] [address] [place] [address] , [facility] C, [place] [address] Tim Parrish MD, Care Management Specialist CLIA: [id number] Hemoglobin A1C 5.4 <5.7 % The following HbA1c ranges recommended by the [place] [employer] (ADA) may be used as an aid in the diagnosis of diabetes mellitus. HbA1c Suggested Diagnosis >=6.5% Diabetic 5.7% - 6.4% Pre-Diabetic <5.7% Non-Diabetic P-Iron Binding Cap Reviewed date:06/29/2024 04:17:23 PM Interpretation:Normal Performing Lab: Notes/Report: Test performed by [facility] [address] [place] [address] , [facility] [place] [address] Tim Parrish MD, Care Management Specialist CLIA: [id number] Iron Binding Cap 344 250-450 ug/dL P-Iron Reviewed date:06/29/2024 04:17:23 PM Interpretation:Normal Performing Lab: Notes/Report: Test performed by [facility] [address] [place] [address] Dr[facility] [place] [address] iTm Parrish MD, Care Management Specialist CLIA: [id number] Iron 99 37-145 ug/dL P-Lipid Panel Reviewed date:06/29/2024 04:17:23 PM Interpretation:Normal Performing Lab: Notes/Report: Test performed by [facility] [address] [place] [address] Dr[facility] [place] [address] Tim Parrish MD, Care Management Specialist CLIA: [id number] Cholesterol 125 <200 mg/dL Triglycerides 82 <150 [...] developed and its performance characteristics determined by [facility]. It has not been cleared or approved by the US Food and Drug Administration. This test was performed in a CLIA certified laboratory and is intended for clinical purposes. Performed By: [facility] [address] [place] [address] Care Management Specialist: Cesar Arnold MD, PhD CLIA Number: [id number] P-Prealbumin Reviewed date:06/29/2024 04:17:23 PM Interpretation:Normal Performing Lab: Notes/Report: Test performed by [facility] [address] [place] [address] , [place] [address] Tim Parrish MD, Care Management Specialist CLIA: [id number] Prealbumin 21.0 20.0-40.0 mg/dL Percent Saturation Reviewed date:06/29/2024 04:17:23 PM Interpretation:Normal Performing Lab: Notes/Report: Test performed by [facility] [address] [place] [address] , [place] [address] Tim Parrish MD, Care Management Specialist CLIA: [id number] Percent Saturation 29 15-50 % P-TSH Reviewed date:06/29/2024 04:17:23 PM Interpretation:Normal Performing Lab: Notes/Report: Test performed by [facility] [address] [place] [address] , [place] [address] Tim Parrish MD, Care Management Specialist CLIA: [id number] TSH 1.08 0.43-5.25 mU/L P-Vitamin A (Retinol), Serum Reviewed date:06/29/2024 04:17:23 PM Interpretation:Normal Performing Lab: Notes/Report: Test Cancelled Test Cancelled TNP - Incor rect Specimen. Unable to perform due to incorrect specimen submission P-Vitamin D 25-Hydroxy Reviewed date:06/29/2024 04:17:23 PM Interpretation:Normal Performing Lab: Notes/Report: Test performed by [facility] [address] [place] [address] , [place] [address] Tim Parrish MD, Care Management Specialist CLIA: [id number] Vitamin D 25-Hydroxy 65.0 30.0-100.0 ng/mL Interpretation [...] analytical performance characteristics have been determined by [place] It has not been cleared or approved by the U.S. Food and Drug Administration. This assay has been validated pursuant to the CLIA regulations and is used for clinical purposes. Test Performed By [employer] [place] , CLIA [id number] H[employer] [address], Filipe Meier MD PhD Estimated Average Glucose Reviewed date:06/29/2024 04:17:23 PM Interpretation:Normal Performing Lab: Notes/Report: Test performed by [facility] [place] [id number] [facility] , [address], [place] [address] Tim Parrish MD, Care Management Specialist CLIA: [id number] Estimated Average Glucose (eAG) 108 Estimated Average [...] Lab: Notes/Report: Urinalysis - Inhouse Reviewed date:01/02/2025 10:42:44 AM Interpretation: Performing Lab: Notes/Report: Color/Clarity straw Leuk 1+ Nitrite positive Urobili 3.2 Protein 1+ pH 6.0 Blood trace-intact Sp. Gr. 1.010 Ketone neg Bili neg Gluc neg P-Culture, Urine Reviewed date:01/06/2025 08:21:23 PM Interpretation: Performing Lab: Notes/Report: Test performed by [facility] [address] , [place] [address] Tim Parrish MD, Care Management Specialist CLIA: [id number] Specimen Source Urine - Void Culture, Urine See Below See Microbiol ogy Report Escherichia coli ESBL 50,000-100,000 CFU /ml Escherichia coli ESBL This isolate is a confirmed ESBL (Extended Spectrum Beta-Lactamase) promotions executive producer and should be considered clinically resistant to all penicillins, cephalosporins and aztreonam. Sensitivity Panel See Below Organism E.coli ESBL Antibiotic INTERP Amikacin S Ampicillin R Aztreonam R Cefepime R Cefoxitin S Ceftazidime R Ceftriaxone R Cefuroxime R Ciprofloxacin R Ertapenem S Gentamicin R Imipenem S Levofloxacin R Meropenem S Nitrofurantoin S Piperacillin/Tazo I Tetracycline R Tobramycin R Trimeth/Sulfa R S=SUSCEPTIBLE I=INTERMEDIATE R=RESISTANT CT Scan : Abd and Pelvis, st one protocol Reviewed date:01/03/2025 12:11:45 PM Interpretation: Performing Lab: Notes/Report: CBC Venipuncture (in house) Reviewed date:02/27/2025 02:33:52 [...] Interpretation:3.5 Performing Lab: Notes/Report: Test performed by [facility], [employer] [address] [place] [address] , [address], [place] [address] Tim Parrish MD, Care Management Specialist CLIA: [id number] Uric Acid 3.5 2.4-7.0 mg/dL CBC Fingerstick (in house) Reviewed date:05/07/2025 05:16:57 [...] - 400 CBC Fingerstick (in house) Reviewed date:05/10/2025 04:37:51 [...] - 38 plat 234 100 - 400 H-CBC Reviewed date:01/04/2025 11:41:11 [...] 88 74-100 mg/dl CA 8.4 8.4-10.2 mg/dl CBC Fingerstick (in house) Reviewed date:08/28/2024 08:12:23 [...] Interpretation: Performing Lab: Notes/Report: Test performed by [facility], [employer] [address] [place] [address] , [address], [place] [address] Tim Parrish MD, Care Management Specialist CLIA: [id number] Specimen Source Urine - Void Culture, Urine See Below Final Report : No Significant Growth Holter Monitor- 48 hour Reviewed date:08/15/2024 08:13:51 [...] developed and its performance characteristics determined by [facility]. It has not been cleared or approved by the US Food and Drug Administration. This test was performed in a CLIA certified laboratory and is intended for clinical purposes. Performed By: [facility] [address] [place] [address] Care Management Specialist: Cesar Arnold MD, PhD CLIA Number: [id number] H-BUN/CREAT Reviewed date:03/06/2025 02:28:19 PM Interpretation: Performing Lab: Notes/Report: BUN 32 7-17 mg/dl CREATT 0.80 0.52-1.04 mg/dl GFRAA 87 >60 ML/MIN EGFR 72 >60 ml/min Medications Medication SIG (Take, Route, Frequency, Duration) Notes Start Date End Date Status traZODone HCl 100 MG TAKE 1 TABLET BY UTH ONCE DAILY AT BEDTIME; Duration: 90 Active Estrace 0.1 MG/GM 1 gm Vaginal 3 times per week 07/13/2024 Active Atorvastatin Calcium 20 MG TAKE 1 TABLET BY MOUTH ONCE DAILY; Duration: 90 days Active lamoTRIgine 150 MG TAKE 1 TABLET BY TWICE DAILY; Duration: 90 Active Isosorbide Dinitrate 30 MG 1 tablet Orally once daily; Duration: 90 days Active hydrOXYzine HCl 10 MG as directed Orally Two times a day; Duration: 90 days Active Calcium Citrate 150 MG 2 capsules Orally Once a day; Duration: 90 days Active Ibsrela 50 MG 1 tablet Orally at b ed time Active Ezetimibe 10 MG 1 tablet Orally [...] Once a day; Duration: 30 day(s) Active Macrodantin 100 MG 1 capsule at bedtime with food or milk Orally twice a day; Duration: 10 days 01/16/2025 Not-Taking Vitamin D3 50 MCG (1999) 1 tablet Orally Once a day; Duration: 30 day(s) Active Macrobid 100 MG 1 capsule with food Orally every 12 hrs 02/22/2025 Not-Taking Nitroglycerin 0.4 MG 1 tab(s) sublingual ly q 5min prn x 3 Active Multivitamin - 1 tab(s) orally once a day w/ Iron Active Montelukast Sodium 10 MG 1 tablet Orally Once a day; Duration: 90 days Active Pantoprazole Sodium 40 MG 1 tablet 1/2 to 1 hour before meals Orally twice a day; Duration: 90 days Active Flonase Allergy Relief 50 MCG/ACT 1 spray in each nostril Nasally Twice a day Active SUMAtriptan Succinate 50 MG 1 tablet as needed, may take second dose at least 2 hours after first dose up to 2 tablets per day as needed Orally; Duration: 30 days Active Baclofen 10 MG 1 tablet as needed Orally Twice a day Active [employer] CPAP & BIPAP Hose 1 DIRECTED Active Hycodan 5-1.5 MG 1 tablet as needed Orally every 6 hrs Active Prolia 60 MG/ML as directed subcutaneously every 6 months; Duration: 12 month(s) Active Aspirin 81 MG 1 tab(s) orally once a day; Duration: 30 day(s) Active QUEtiapine Fumarate ER 200 MG 1 tablet in the evening Orally Once a day Active levoFLOXacin 750 MG 1 tablet Orally Once a day 05/15/2025 Active Immunizations Vaccine Route Administration Date Status [...] W/U Status Risk Notes Problem Essential hypertension (56385013) Essential (primary) hypertension (I10) Active confirmed Problem History of circulatory system disease (066095900) History of ASCVD (Z86.79) Active confirmed Problem COPD - Chronic obstructive pulmonary disease (14703802) COPD (chronic obstructive pulmonary disease) (J44.9) Active confirmed Problem Acute exacerbation of chronic obstructive airways disease (250889886) COPD with exacerbation (J44.1) Active confirmed Problem Osteopenia (139313942) Osteopenia (M85.80) Active confirmed Problem Seasonal allergy (247930733) Seasonal allergies (J30.2) Active confirmed Problem Renal mass (141376677) Renal mass (N28.89) Active confirmed Problem Mixed anxiety and depressive disorder (154830894) Depression with anxiety (F41.8) Active confirmed Problem Overactive urinary bladder (disorder) (267549668) OAB (overactive bladder) (N32.81) Active confirmed Problem Memory loss (83381501) Memory loss (R41.3) Active confirmed Problem Fibromyalgia (607971242) Fibromyalgia (M79.7) Active confirmed Problem Vasomotor rhinitis (3753619) Vasomotor rhinitis (J30.0) Active confirmed Problem Chronic respiratory failure (45653218) Chronic respiratory failure with hypoxia (J96.11) Active confirmed Problem Irritable bowel syndrome with diarrhea (519077443) Irritable bowel syndrome with diarrhea (K58.0) Active confirmed Problem Migraine without aura, not refractory (603932760) Migraine without aura and without status migrainosus, not intractable (G43.009) Active confirmed Problem Atrophic vaginitis (30935055) Atrophic vaginitis (N95.2) Active confirmed Problem Sacroiliitis (50714077) Sacroiliitis (M46.1) Active confirmed Problem Dependence on supplemental oxygen (082458170024) Oxygen dependent (Z99.81) Active confirmed Problem Dyslipidemia (296267024) Dyslipidemia (E78.5) Active confirmed Problem Allergic rhinitis caused by pollen (33601248) Seasonal allergic rhinitis due to pollen (J30.1) Active confirmed Problem Degenerative disc disease (04894138) DDD (degenerative disc disease), lumbar (M51.36) Active confirmed Problem 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) Active confirmed Problem Malabsorption syndrome (29932819) Malabsorption due to intolerance, not elsewhere classified (K90.49) Active confirmed Problem Ex-tobacco user (finding) (389459099) Personal history of tobacco use (Z87.891) Active confirmed Problem Degeneration of thoracic intervertebral disc (33965125) DDD (degenerative disc disease), thoracic (M51.34) Active confirmed Vital Signs Heart Rate 67 /min 05/15/2025 Blood pressure diastolic 70 mm Hg 05/15/2025 Height 65 in 05/15/2025 Blood pressure systolic 104 mm Hg 05/15/2025 Weight 143.6 lbs 05/15/2025 BMI 23.89 kg/m2 05/15/2025 Encounters Encounter Location Date Provider Diagnosis [facility] [address] [place] [id number] 06/22/2024 R Foreign Emmanuel Fibromyalgia M79.7 ; Malabsorption due to intolerance, not elsewhere classified K90.49 ; Status post bariatric surgery Z98.84 ; Dyslipidemia E78.5 ; Vaginal yeast infection B37.31 and Hypoglycemia E16.2 [facility] [address] [place] [id number] 06/26/2024 Sang Tom Bean Malabsorption due to intolerance, not elsewhere classified K90.49 [facility] [address] [place] Khan [id number] 07/13/2024 R Foreign Benitez URI (upper respirato ry infection) J06.9 and Atrophic vaginitis N95.2 [facility] [address] [place] Khan [id number] 07/25/2024 R Foreign [place] Palpitations R00.2 [facility] [address] [place] Khan [id number] 08/28/2024 Marlena Antonio Sinusitis J32.9 and Papules R23.8 [facility] [address] [place] [id number] 10/19/2024 R Foreign [place] Acute bronchitis J20 .9 ; COPD (chronic obstructive pulmonary disease) J44.9 ; Dyslipidemia E78.5 ; Seasonal allergies J30.2 and BMI 24.0-24.9, adult Z68.24 [facility] [address] [place] Khan [id number] 12/29/2024 China Crowdy Hypoxia R09.02 ; Dysuria R30.0 ; Chills R68.83 and BMI 24.0-24.9, adult Z68.24 [facility] [address] [facility] [address] [place] [id number] 12/30/2024 China Crowdy Dysuria R30.0 [facility] [address] [place] [facility] [address] [place], [place] [id number] 01/02/2025 R Foreign Emmanuel Adult general medica l examination Z00.00 ; Flank pain, acute R10.10 ; Hematuria R31.9 ; Depression with anxiety F41.8 ; History of ASCVD Z86.79 ; Osteopenia M85.80 ; Personal history of tobacco use Z87.891 ; COPD (chronic obstructive pulmonary disease) J44.9 ; Essential (primary) hypertension I10 ; Seasonal allergies J30.2 ; Dyslipidemia E78.5 and BMI 24.0-24.9, adult Z68.24 [facility] [address] [place] [id number] 01/04/2025 R Foreign Emmanuel Pyelonephritis N12 [facility] [address] [place] [id number] 01/16/2025 R Foreign Emmanuel Pyelonephritis N12 [facility] [address] [place] [id number] 02/13/2025 R Foreign Emmanuel Pyelonephritis N12 [facility] [address] [place] [id number] 02/22/2025 Schedule Work [facility] [address] [place] [id number] 02/26/2025 Marlena Antonio Acute pain of left k nee M25.562 ; Acute pain of left wrist M25.532 ; Chronic respiratory failure with hypoxia J96.11 and BMI 24.0-24.9, adult Z68.24 [facility] [address] [facility] [address] [place], [place] [id number] 05/07/2025 Sang Tom Bean Acute bronchitis, unspecified organism J20.9 [facility] [address] [place] [id number] 05/10/2025 China Crowdy Acute bronchitis, unspecified organism J20.9 [facility] [address] [place], [place] [id number] 05/15/2025 R Foreign Emmanuel Acute bronchitis, unspecified organism J20.9 [facility] [address] [place] [id number] 05/24/2024 R Foreign Emmanuel Seasonal allergies J30.2 [facility] [address] [place] [id number] 06/29/2024 R Foreign Emmanuel [facility] [address] [place] [id number] 07/03/2024 R Foreign Emmanuel [facility] [address] [place] [id number] 08/15/2024 R Foreign Emmanuel [facility] [address] [place] [id number] 08/15/2024 R Foreign Emmanuel [facility] [address] [place] [id number] 08/17/2024 R Foreign Emmanuel Seasonal allergies J30.2 [facility] [address] [place] [id number] 10/31/2024 R Foreign Emmanuel [facility] [address] [place] [id number] 11/21/2024 R Foreign Emmanuel [facility] [address] [place] [id number] 01/02/2025 China Crowdy [facility] [address] [place] [id number] 01/02/2025 R Foreign Emmanuel [facility] [address] [place] [id number] 01/09/2025 R Foreign Emmanuel [facility] [address] [place] [id number] 01/18/2025 R Foreign Emmanuel [facility] [address] [place] [id number] 01/22/2025 R Foreign Emmanuel [facility] [address] [place] [id number] 02/21/2025 R Foreign Emmanuel Renal mass N28.89 [facility] [address] [place] [id number] 02/22/2025 R Foreign Emmanuel [facility] [address] [place] [id number] 03/08/2025 R Foreign Emmanuel [facility] [address] [place] [id number] 03/26/2025 R Foreign Emmanuel [facility] [address] [place] [id number] 04/19/2025 R Foreign Emmanuel [facility] [address] [place] [id number] 05/07/2025 R Foreign Emmanuel [facility] [address] [place] [id number] 05/11/2025 R Foreign Emmanuel [facility] [address] [place] [id number] 05/11/2025 Sang Tom Bean Acute bronchitis, unspecified organism J20.9 Assessments Encounter Date Diagnosis (ICD Code) Assessment Notes Treatment Notes Treatment Clinical Notes Section Notes 05/24/2024 Seasonal allergies (ICD-10 - J30.2) 06/22/2024 [...] oral antibiotics. Plan for direct admission to [facility] for IV fluids and IV antibiotics. 01/16/2025 Pyelonephritis (ICD-10 - N12) Will start oral Macrodantin based on her previous urine culture while awaiting repeat culture obtained today. 02/13/2025 Pyelonephritis (ICD-10 - N12) 02/21/2025 Renal mass (ICD-10 - N28.89) 02/26/2025 Acute pain of left wrist (ICD-10 - M25.532) will check for gout; wrist splint; orthoped referral 05/07/2025 Acute bronchitis, unspecified organism (ICD-10 - J20.9) 05/10/2025 Acute bronchitis, unspecified organism (ICD-10 - J20.9) 05/11/2025 Acute bronchitis, unspecified organism (ICD-10 - J20.9) 05/15/2025 Acute bronchitis, unspecified organism (ICD-10 - J20.9) 02/26/2025 Acute pain of left knee (ICD-10 - M25.562) discussed xray, MRI and orthoped referral; [id number] she staes they always do Xray and can scheduled MRI if needed; encouraged use of cane and/or walker for steadiness and fall prevention 02/26/2025 Chronic respiratory failure with hypoxia (ICD-10 - J96.11) 01/02/2025 Hematuria (ICD-10 - R31.9) 10/19/2024 Dyslipidemia (ICD-10 - E78.5) 12/29/2024 Chills (ICD-10 - R68.83) 06/22/2024 Status post bariatric surgery (ICD-10 - Z98.84) 06/22/2024 Dyslipidemia (ICD-10 - E78.5) 12/29/2024 BMI [...] Treatment Pending Test Test Name Order Date CBC Fingerstick (in house) 05/15/2025 H-Sputum Culture with Gram Stain 025 P-Comprehensive Metabolic Panel (CMP) P-Lipid Panel 09/21/2023 TEN-Upper Respiratory PCR 05/10/2025 Next Appt Details Provider Name:Jeyson Smith, 05/15/2025 02:30:00 PM, [address], [address], [place], [place], [id number], Insurance Providers Payer Name Payer Address Payer Phone Subscriber Number Group Number Insured Name Patient Relationship to Insured Coverage Start Date Coverage End Date MEDICARE PART B [address] [address] [place] [address] [id number] WENDY DORAN Self - patient is the insured [facility] [employer] [address] [place] [address] [id number] WENDY DORAN Self - patient is the insured Medications Administered Medication Instructions Date of Administration Dosage Notes Dexamethasone 06/28/2018 1 mL Dexamethasone 05/02/2019 1 mL Dexamethasone 02/10/2022 1 mL Dexamethasone 06/09/2022 1 mL Phenergan 12.5 mgs. 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 Ca th showed [...] Dr. Ball 11/2020 Hospitalization History Reason Date(Month/Year) [place] [facility]itis 03/2018 [place] [facility]di[place] 11/2015 [place] [facility]-constipation/impaction 2015 [facility]heart attack 12/31/2014 Drs office in [place]-possible UTI, te sted negative 12/2019 [facility] ER-back pain 06/2012 [facility] ER-diarrhea 03/2011
--- OUTSIDE RECORDS SUMMARY | 2025-05-15 15:28 | XMS_ITS | Continuity of Care Document ---
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 -US liver 01/17/24 was unremarkable. -Lab workup was most consistent with JORDAN, S1, N3, F1-F2 by fibrosure. She has had greater than 90 lb weight loss without much change in LFTs. She has actually had mildly worsening LFTs in the setting of stable weight, normal BMI. CT guided liver biopsy was recently performed and unremarkable with no steatohepatitis and no fibrosis noted. -Avoid NSAIDS. She may take acetaminophen, not to exceed 2 g in 24 hours. -Diet and exercise counseled -Continue to avoid alcohol -A1C and lipids are normal. -Atorvastatin dose was decreased after her biopsy due to suspicion for drug induced transaminitis. -We will repeat her hepatic function labs and lipid panel now and also obtain an ELF test. If LFTs remain high, we will request over-read of her liver biopsy by [facility]. -Hepatic impairment can be a rare complication of bariatric surgery. 2) Chronic constipation: Worse recently despite high dose Linzess plus BID miralax, BID benefiber, and 2 vegetable laxatives daily. -I will have her hold Linzess and start IBSrela twice daily. Motegrity previously was not covered. -Consider referral for pelvic floor therapy if symptoms continue to be refractory to treatment. 3) GERD: s/p RNY gastric bypass 12/2022. She has been able to reduce pantoprazole to once daily, but has experienced dyspepsia when she attempted to discontinue. Will continue. 4) History of colonoscopy: Last colonoscopy 05/02/24. Repeat recommended 04/2029 for screening. f/u 1 month [email or web address] Not available 04/24/2025 12:45:02 Plan of Treatment Reminders Order Date Submit Date Provider Last Modified By Organization Details Last Modified Time Details Appointments Establish ed Visit 15 min 2024 10:00A M Ernesto Amezcua PA-C Not available Not available Not available OV EST 20 2024 10:00A M Aden Husain, DNP, OPERATIONS LEADER, AUDITOR MEDICAL CLAIMS-C Not available Not available Not available Lab liver fibrosis score, calculate d by ELF, serum or plasma 2024 [facility], [address], [address], [place], [address], 04/28/2025 07:13:31 lipid panel, serum 2024 025 [facility], [address], [address], [place], [address], 04/28/2025 07:13:30 hepatic function panel, serum 2024 025 [facility], [address], [address], [place], [address], 04/28/2025 07:13:30 Referral None recorded. Procedures None recorded. Surgeries None recorded. Imaging None recorded. Medication Orders Ibsrela 50 mg tablet 2024 025 [facility], [address] [place] [address] [address], [place], [id number], 04/24/2025 11:10:06 Patient TargetsNo targets recorded. Patient InstructionsNo instructions recorded. Reason for Referral None Reported. Problems Name Problem SNOMED Code Status Onset Date Resolution Date Notes Provider Name and Address Organization Details Recorded Time Chronic idiopathi c constipat ion 05920125 Active [address], [place], [address] , [place] 5 10:55:11 Gastroeso phageal reflux disease 413036027 Active 2021 Not Available [facility] 3 16:06:44 Diarrhea 03502995 Active 2021 Not Available [facility] 3 16:06:44 Hypokalem ia 77573615 Active 2021 Not Available [facility] 3 16:06:44 Abdominal pain 83755653 Active 2021 Not Available [facility] 3 16:06:44 Myocardia l infarctio n 37172997 Completed 202103/25/2022 Azeb [place], [place] 2 14:37:03 Fibromyal dominique 616007809 Active 2021 Not Available [facility] 3 16:06:44 Mild dementia 76037896215 4108 Active 2021 Not Available [facility] 3 16:06:44 Chronic obstructi ve pulmonary disease 61929550 Active 2021 Not Available [facility] 3 16:06:44 Hiatal hernia 13362581 Completed 202103/25/2022 Azeb [place], [place] 2 14:38:57 Chronic depressio n 638228755 Active 2021 Not Available [facility] 3 16:06:44 Obesity 733827183 Active [address], [place], [address] , [place] 2 14:51:36 Hypertens silvino disorder 11872191 Active 2022 Not Available [facility] 3 16:06:44 Dyslipide frnac 695894979 Active 2022 Not Available [facility] 3 16:06:44 Morbid obesity 443576370 Active 2022 Not Available [facility] 3 16:06:44 Dizziness 146255750 Active 2022 Not Available [facility] 3 16:06:44 Intention al weight loss 697548094 Active 2022 Not Available [facility] 3 16:06:44 Constipat ion 26390727 Active 2022 Ernesto Amezcua PA-C [address], [place], [address] , [place] 3 15:41:42 Overweigh t 845523802 Active 2023 Aden Husain DNP, OPERATIONS LEADER, AUDITOR [employer] CLAIM[employer]-C [address] , [place], [place], [address] [place] [address] , [place] 4 09:57:50 Fatigue 51176634 Active 2023 Aden Husain DNP, OPERATIONS LEADER, AUDITOR [employer]-C [address] [facility], [place], [place], [address] [place] [address] , [place] 4 10:00:39 Liver enzymes level above reference range 699261494 Active 2023 Ernesto Amezcua PA-C [address], [place], [address] , [place] 5 10:55:11 Low back pain 989360367 Active 2023 Aden Husain DNP, OPERATIONS LEADER, AUDITOR [employer] [address] [facility], [place], [address] [place] [address] , [place] 4 15:56:35 Irritable bowel syndrome character ized by constipat ion 937575404 Active 2023 Ernesto Amezcua PA-C [address], [place], [address] , [place] 5 11:07:41 Metabolic dysfuncti on-associ ated steatohep atitis 324114000 Active 2023 Ernesto Amezcau PA-C [address], [place], [address] , [place] 5 14:30:35 Gastroeso phageal reflux disease without esophagit is 697168021 Active 2023 Ernesto Amezcua PA-C [address], [place], [address] , [place] 5 10:55:11 Hyperlipi demia 01061159 Active 2024 Ernesto Amezcua PA-C [address], [place], [address] , [place] 5 13:05:05 Irritable bowel syndrome 31807380 Active 2024 Palak Gage [facility], [place] 5 11:45:44 Problem Notes None recorded. Procedures Surgical History Date Name Laterality Status Provider Name and Address Organization Details Recorded Time 07/23/[address], [place] [address], [place], [address], [place] 08/14/2022 16:17:22 05/28/20 21 Date of Last Pap Smear completed RIMMA [address], [place] [address], [place], [address], [place] 08/14/2022 16:17:22 12/20/19 21 Date of Last Colonoscopy completed [address], [place] [address], [place], [address], [place] 08/14/2022 16:17:22 11/17/19 Most Recent Bone Density completed [address], [address], [place], [address], [facility] & [place] 08/14/2022 16:17:22 Appendectomy completed Not Available [facility] 13:08:39 extraction of wisdom tooth completed Not Available [facility] 08/10/2022 13:08:39 lithotripsy completed Not Available [facility] 07/14 13:08:39 Colonoscopy completed Marychuy Quesada [facility] & [place] 08/13/2022 11:21:25 EGD completed Marychuy Quesada [facility] & [place] 08/13/2022 11:21:36 Gastric Bypass completed Dipesh Dow [facility] & [place] 12/29/2022 08:20:27 Imaging Results None recorded. Procedure Notes None recorded. Medical Equipment None Reported. Allergies Allergen ID Allergen Name Allergen Category Reaction Reaction Severity Criticality Documentation Date Start Date Code Code System Note Provider Name and Address Organization Details Recorded Time 26802 Product containin g penicilli n (product) medicatio n Not available Not available Not available 03/25/2022 90877 8001 SNOMED Azeb Quesada [facility] & [place] 2 14:01:10 767580 indometha gen medicatio n Not available Not available Not available 06/19/2024 5781 RxNorm Other react ions and sever ities : 'Adve rse react ion to subst ance' . Kary Rust [facility], [facility] & [place] 4 14:05:45 237692 penicilli n V Not available Not available Not available Not available 06/19/2024 7984 RxNorm Other react ions and sever ities : 'Anap hylax is due to subst ance' . Kary Rust [facility] & [place] 4 14:05:45 319081 milnacipr an medicatio n Not available Not available Not available 06/19/2024 78379 0 RxNorm Other react ions and sever ities : 'Adve rse react ion to subst ance' . Kary Rust [facility], [place] - [facility] & [place] 4 14:05:45 [address] [facility] Not [facility] Not available Not available 08/13/2022 21509 6 RxNorm Marychuy Quesada [facility], [facility] & [place] 3 11:18:57 Medications Name Sig Start Date [...] e 0.4 % vaginal cream INSERT 1 APPFUL VAGINALL Y AT BEDTIME FOR 7 DAYS active Not [...] TAKE 1 CAPSULE BY MOUTH ONCE DAILY active Not Available Not Available No t Available atorvastat in 20 mg tablet TAKE 1 TABLET BY MOUTH ONCE DAILY AT BEDTIME active Not Available Not Available No t Available venlafaxin e 75 mg tablet TAKE [...] TABLET BY MOUTH AT ONSET OF MIGRAINE NEEDED. IF SYMPTOMS PERSIST, A SECOND DOSE MAY [...] Not Available Not Available No t Available valacyclov ir 500 mg tablet TAKE [...] completed Not Available Not Available Not Available hydrocodon e-homatrop ine 5 mg-1.5 mg tablet TAKE 1 TABLET BY MOUTH EVERY 6 HOURS NEEDED active Not Available Not Available No t Available trazodone 100 mg tablet TAKE 1 [...] Available Not Available baclofen 10 mg tablet TAKE 1 TABLET BY MOUTH THREE TIMES DAILY active Not Available Not Available No [...] BY MOUTH DIRECTED ON INSIDE OF PACKAGE active Not Available Not Available No t Available albuterol sulfate HFA 90 mcg/actuat ion aerosol inhaler INHALE 2 PUFFS BY MOUTH 4 TIMES DAILY NEEDED FOR SHORTNES S OF BREATH OR WHEEZING active Not Available Not Available No t Available celecoxib 100 mg capsule 12/08 completed [...] Available Not Available Not Available nitrofuran toin monohydrat e/macrocry stals 100 mg capsule TAKE 1 CAPSULE BY MOUTH EVERY 12 HOURS WITH FOOD 04/21 completed Not Available Not Available Not Available [...] TABLET BY MOUTH ONCE DAILY WITH FOOD active Not Available Not Available No t [...] Not Available Not Available Not Avai lable Anoro Ellipta 62.5 mcg-25 mcg/actuat ion powder for inhalation INHALE 1 PUFF BY MOUTH ONCE DAILY active Not Available [...] completed Not Available Not Available Not Available Ibsrela 50 mg tablet Take 1 tablet twice a day by oral route for 90 days. 2024 active Not Available Not Available Not Avai lable cefazolin 2 gram solution for injection 2 g by injectio n route. 12/21 completed Not Available Not Available Not Available Vitals Date Recorded Body height Body mass index (BMI) Body weight Body temperature Oxygen saturation Oxygen saturation in Arterial blood by Pulse oximetry Heart rate Heart rate Systolic And Diastolic Provider Name and Address Organization Details Last Updated DateTime 5 162.56 cm 25.2 kg/m2 59544.0 8 g 97.2 [degF] 96 % 96 % 66 /min 67 /min 132/86 mm[Hg] Francisca Bautista [facility] & [place] 5 10:53:10 Social History Question Answer Notes LastModified by NOSTROMO ICT Details LastModified Time Tobacco Smoking Status Former Smoker quit 3 years ago Araceli Velasquez [facility], [facility] & [place] 09/06/2023 09:49:34 Do You Have An Advance Directive? No Information not available 08/14/2022 Are You Blind Or Do You Have Difficulty Seeing? No [email or web address] Information not available 08/14/2022 What Was The Date Of Your Most Recent Tobacco Screening? 08/10/2022 [email or web address] Information not available 08/14/2022 Are You Passively Exposed To Smoke? No [email or web address] Information not available 08/14/2022 How Much Tobacco Do You Smoke? No [email or web address] Information not available 08/14/2022 Sex: Male Functional Status Question Answer Note LastModified by [facility]STR[employer] [employer] Details LastModified Time Do you use any illicit or recreational drugs? No [email or web address] Information not available 08/10/2022 What is your level of alcohol consumption? None Information not available 08/10/2022 Do you or have you ever used smokeless tobacco? Never used smokeless tobacco [email or web address] Information not available 08/14/2022 What is your exercise level? None [email or web address] Information not available 08/14/2022 Mental Status Question Answer Note LastModified by Organization D etails LastModified Time Do you feel stressed (tense, restless, nervous, or anxious, or unable to sleep at night)? [id number] [email or web address] Information not available 08/14/2022 Family History Relationship Description Onset Age of this Age Resolved Age Notes LastModified by Organization Details LastModified Time Father Obesity [email or web address] Not availa ble 08/10/2022 08:30:50 Father Diabetes mellitus [email or web address] Not available 2024 10:25:27 Father Hypertensive disorder Not available 08:31:23 Father Heart disease [email or web address] Not available 08:31:48 Father Cerebrovascu lar accident [email or web address] Not available 08/10/2022 08:32:04 Father Hypercholest erolemia [email or web address] Not available 08:32:27 Father Asthma [email or web address] Not available 10:25:27 Father Allergy pt. added direct ly (08/10) [email or web address] Not available 08/10/2022 13:04:20 Father Disorder of endocrine system pt. added direct ly (08/10) [email or web address]-13 Not available 08/10/2022 13:07:54 Maternal Grandmother Obesity [email or web address] Not available 0 08/10/2022 08:30:50 Maternal Grandmother Hypertensive disorder [email or web address] Not available 08:31:23 Maternal Grandmother Heart disease [email or web address] Not available 08:31:49 Mother Hypertensive disorder [email or web address] Not available 08:31:23 Mother Heart disease [email or web address] Not available 08:31:48 Mother Cerebrovascu lar accident [email or web address] Not available 08/10/2022 08:32:04 Mother Hypercholest erolemia [email or web address] Not available 08:32:27 Mother Allergy pt. added direct ly (08/10) [email or web address]-13 Not available 08/10/2022 13:04:20 Brother Hypertensive disorder [email or web address] Not available 08:31:23 Brother Heart disease [email or web address] Not available 08:31:49 Brother Hypercholest erolemia [email or web address] Not available 08:32:27 Brother Cerebrovascu lar accident pt. added direct ly (09/03) [email or web address]-13 Not available 09/03/2023 11:07:40 Sister Hypertensive disorder [email or web address] Not available 08:31:23 Sister Hypercholest erolemia Not available 08:32:27 Maternal Grandfather Heart disease [email or web address] Not available 08:31:49 Maternal Uncle Allergy pt. added direct ly (08/10) [email or web address] Not available 08/10/2022 13:04:20 Paternal Grandmother Obesity pt. added direct ly (08/10) [email or web address] Not available 08/10/2022 13:08:19 Medical History Condition Response Other Y Gout N Kidney Stones Y COPD Y Depression Y Osteoporosis/Osteopenia Y Constipation Y Heart Attack ([place]) Y Spine Problems Y Obstructive Sleep Apnea [...] recombinant, quadrivalent, PF 1 completed Not Available [facility] 01/01/2023 16:06:44 Influenza, recombinant, quadrivalent, PF 0 completed Not Available [facility] 01/01/2023 16:06:44 zoster recombinant 1 completed Not Available [facility] 01/01/2023 16:06:44 zoster recombinant 1 completed Not Available [facility] 01/01/2023 16:06:44 MMR 6 completed Not Available [facility] 01/01/2023 16:06:44 COVID-19, mRNA, LNP-S, PF, 100 mcg/0.5mL dose or 50 mcg/0.25mL dose 1 completed Not Available [facility] 01/01/2023 16:06:44 COVID-19, mRNA, LNP-S, PF, 100 mcg/0.5mL dose or 50 mcg/0.25mL dose 1 completed Not Available [facility] 01/01/2023 16:06:44 COVID-19, mRNA, LNP-S, PF, 100 mcg/0.5mL dose or 50 mcg/0.25mL dose 1 completed Not Available [facility] 01/01/2023 16:06:44 Pneumococcal conjugate PCV20, polysaccharide RTL471 conjugate, adjuvant, PF 2 completed Not Available [facility] 01/01/2023 16:06:44 pneumococcal polysaccharide PPV23 1 completed Not Available [facility] 01/01/2023 16:06:44 pneumococcal polysaccharide PPV23 7 completed Not Available [facility] 01/01/2023 16:06:44 Influenza, split virus, quadrivalent, PF 9 completed Not Available [facility] 01/01/2023 16:06:44 Influenza, split virus, quadrivalent, PF 2 completed Not Available [facility] 01/01/2023 16:06:44 Influenza, split virus, quadrivalent, PF 8 completed Not Available [facility] 01/01/2023 16:06:44 influenza, unspecified formulation 4 completed Kary Rust null, [place] [facility] [facility] & [place] 08/08/2024 13:51:39 Respiratory syncytial virus (RSV) MAB, unspecified 4 completed Araceli Velasquez null, [facility] & [place] 06/06/2024 09:21:15 Influenza, high-dose, quadrivalent, PF 3 completed Kary Rust null, [facility] - [place] & [place] 08/08/2024 13:51:39 RSV, recombinant, protein subunit RSVpreF, adjuvant reconstituted, 0.5 mL, PF 4 completed Kary Rust null, [facility] & [place] 08/08/2024 13:51:39 Influenza, high-dose, trivalent, PF 4 completed Kary Rust null, [facility] & [place] 08/08/2024 13:51:39 Past Encounters Encounter ID Performer Location Encounter Start Date Encounter Closed Date Diagnosis/Indication Diagnosis SNOMED-CT Code Diagnosis ICD10 Code Diagnosis IMO Codes Diagnosis Note [id number] Ernesto Amezcua PA-C [facility] [address] [address] 04/24/2025 10:24:37 04/24/2025 11:45:04 Liver enzymes level above reference range 601772311 R74.01 Metabolic dysfunction-associate d steatohepatitis 632980370 K75.81 4343113888 Gastroesop hageal reflux disease without esophagitis 676708288 K21.9 Chronic id iopathic constipation 60402864 K59.04 History of colonoscopy 1286801159 09 Z98.890 Irritable bowel syndrome characterized by constipation 414582193 K58.1 793875 Hyperlipidemia 15335719 E78.5 [id number] Health Concerns Section Related Observation LastModified by Organization Detai ls LastModified Time None Recorded Concern Status LastModified by Organization Details LastModified Time None Recorded Payers Encounter Date Sequence Insurance Name Policy Number Policy Acosta Covered Member ID Acosta Member ID Guarantor Name 04/24/2025 2 [employer] (MEDICARE SUPPLEMENT) Maria Isabel Doran [id number] Maria Isabel Doran 04/24/2025 1 [place] Maria Isabel Doran [id number] Maria Isabel Doran Notes Date Note Type Note Provider Name and Address Organization Details Recorded Time 04/24/2025 text/html ROS as noted in the HPI [...] since undergoing gastric bypass 1.5 years ago. PREVIOUS (12/27/24): Ms. Doran returns to the office today for 6 month follow-up regarding MASH and chronic constipation. She recently had labs performed with bariatrics, which shows continued transaminitis with LFTs mildly increased compared to prior. JORDAN Fibrosure from 07/15/2024 was c/w F1-2, S1, N3. Her weight has remained stable at 144 lbs. Today, she reports feeling well overall at this time. CURRENT (04/24/25): Ms. Doran returns to the office today for follow-up regarding MASH and constipation. She underwent liver biopsy in January due to transaminitis despite her weight loss with BMI now normal. This was completely normal. No fibrosis, hepatitis, or steatosis was reported. No explanation for her transaminitis was seen. We have discussed atorvastatin as a possible benign cause of elevated liver enzymes. Lipid panel was normal at that time. I decreased her atorvastatin dose to 20 mg qhs.Currently, she is struggling with constipation. She was recently admitted with a kidney infection and was treated with antibiotics. She had a CT scan performed that showed constipation. She is taking Linzess 290 mcg daily, Miralax twice daily, benefiber twice daily, and 2 vegetable laxatives daily. Ernesto Amezcua PA-C [address], [place], [address], [facility] 04/24/2025 12:45:51 OBGyn Episode No OBEpisode recorded.
--- NOTE | 2025-05-15 15:29 | XR_ITS ---
FINAL REPORT CLINICAL HISTORY: COUGH FINDINGS: 2 views of the chest were obtained . The heart is normal in size. The mediastinum is within normal limits. There are emphysematous changes. The lungs are otherwise clear. There is no pneumothorax. Osseous structures are unremarkable. IMPRESSION: No acute cardiopulmonary process. Reviewed, Interpreted and Dictated by Bobbi Mcwilliams MD Transcribed by Minerva Gates Authenticated and [facility]
--- OUTSIDE RECORDS SUMMARY | 2025-05-15 15:29 | XMS_ITS | Data Portability ---
Author Organization [place] - [facility] - [place] [facility] [place] [facility] ADMIN Address [address] [place] [id number] Care Team Providers Care President [employer] Name Role Phone GENET BRUCE Primary Care Provider Assessment Encounter Date Assessment Date Assessment LastModified by Organization Details LastModified Time 06/26/2024 06/26/2024 68-year-old fema le with: 1) Elevated liver enzymes/CISNEROS: First noted [...] for screening. f/u 6 months and PRN [email or web address] Not available 06/26/2024 13:49:07 12/27/2024 12/27/2024 69-year-old abena jones with: 1) Elevated liver enzymes/suspected MASH: First noted following bariatric surgery 12/2022. [...] recommended 04/2029 for screening. f/u 1 month [email or web address] Not available 12/27/2024 14:41:04 04/24/2025 04/24/2025 69-year-old abena jones with: 1) Elevated liver enzymes/history of MASH: [...] recommended 04/2029 for screening. f/u 1 month [email or web address] Not available 04/24/2025 12:45:02 Plan of Treatment Reminders Order Date Submit Date Provider Last Modified By Organization Details Last Modified Time Details Appointments Establish ed Visit 15 min 2024 10:00A M Ernesto Amezcua PA-C Not available Not available Not available OV EST 20 2024 10:00A M Aden Husain, DNP, [employer]QUIT[employer] SPRAYER, [employer]FFEE MAKER SERVICER-C Not available Not available Not available Lab liver fibrosis score, calculate d by ELF, serum or plasma 2024 025 [facility]AC [facility], [address], [address], [place], [address], 04/28/2025 07:13:31 lipid panel, serum 2024 025 [facility]AC [facility], [address], [address], [place], [address], 04/28/2025 07:13:30 hepatic function panel, serum 2024 025 [facility]AC [facility], [address], [address], [place], [address], 04/28/2025 07:13:30 CBC w/ auto diff 2024 025 [facility], [address], [address], [place], [address], 12/15/2024 14:37:20 CMP, serum or plasma 2024 025 [facility], [address], [address], [place], [address], 12/15/2024 14:37:21 TSH + free T4, serum 2024 025 [facility], [address], [address], [place], [address], 12/15/2024 14:37:19 HbA1c (hemoglob in A1c), blood 2024 025 [facility], [address], [address], [place], [address], 12/15/2024 14:37:24 lipid panel, serum 2024 025 [facility], [address], [address], [place], [address], 12/15/2024 14:37:22 copper, serum or plasma 2024 025 [facility], [address], [address], [place], [address], 12/15/2024 14:37:29 selenium, quantitat silvino, blood 2024 025 [facility], [address], [address], [place], [address], 12/15/2024 14:37:31 zinc, serum or plasma 2024 025 [facility], [address], [address], [place], [address], 12/15/2024 14:37:30 iron + TIBC + ferritin, serum 2024 025 [facility], [address], [address], [place], [address], 12/15/2024 14:37:18 folate, serum 2024 025 [facility], [address], [address], [place], [address], 12/15/2024 14:37:24 vitamin E, serum 2024 025 [facility], [address], [address], [place], [address], 12/15/2024 14:37:23 vitamin A (retinol) , serum 2024 025 [facility], [address], [address], [place], [address], 12/15/2024 14:37:25 prealbumi n, serum 2024 025 [facility], [address], [address], [place], [address], 12/15/2024 14:37:30 thiamine, QN, blood 2024 025 [facility], [address], [address], [place], [address], 12/15/2024 14:37:27 methylmal jareth, QN, serum or plasma 2024 025 [facility], [address], [address], [place], [address], 12/15/2024 14:37:28 vitamin D, 25-hydrox y, total, serum 2024 025 [facility], [address], [address], [place], [address], 12/15/2024 14:37:26 CMP, serum or plasma 2023 [email or web address] [place] [address] (Registration ), [address] , [place], [address], 07/07/2024 10:22:50 CBC 2023 [email or web address] [place] [address] (Registration ), [address] , [place], [address], 07/07/2024 10:22:50 PT/INR [email or web address] (Registration ), [address] , [place], [address], 07/07/2024 10:22:50 liver fibrosis score, calculate d by ELF, serum or plasma 2023 [email or web address] [place] [address] (Registration ), [address] , [place], [address], 07/07/2024 10:22:50 selenium, quantitat silvino, blood 2023 024 [email or web address] [facility], [address], [address], [place], [address], 07/06/2024 13:36:28 CMP, serum or plasma 2023 024 [email or web address] [facility], [address], [address], [place], [address], 07/06/2024 13:36:30 CBC w/ auto diff 2023 024 [email or web address] [facility], [address], [address], [place], [address], 07/06/2024 13:36:29 HbA1c (hemoglob in A1c), blood 2023 [email or web address] [facility], [address], [address], [place], [address], 07/06/2024 13:36:30 TSH + free T4, serum 2023 [email or web address] [facility], [address], [address], [place], [address], 07/06/2024 13:36:30 lipid panel, serum 2023 [email or web address] [facility], [address], [address], [place], [address], 07/06/2024 13:36:30 copper, serum or plasma 2023 [facility], [address], [address], [place], [address], 07/06/2024 13:36:28 zinc, serum or plasma 2023 [email or web address] [facility], [address], [address], [place], [address], 07/06/2024 13:36:28 iron + TIBC + ferritin, serum 2023 [email or web address] [facility], [address], [address], [place], [address], 07/06/2024 13:36:28 folate, serum 2023 [email or web address] [facility], [address], [address], [place], [address], 07/06/2024 13:36:29 vitamin E, serum 2023 024 [email or web address] [facility], [address], [address], [place], [address], 07/06/2024 13:36:29 vitamin A (retinol) , serum 2023 024 [email or web address] [facility], [address], [address], [place], [address], 07/06/2024 13:36:29 prealbumi n, serum 2023 024 [facility], [address], [address], [place], [address], 07/06/2024 13:36:29 thiamine, QN, blood 2023 024 [email or web address] [facility], [address], [address], [place], [address], 07/06/2024 13:36:29 methylmal jareth, QN, serum or plasma 2023 024 [facility], [address], [address], [place], [address], 07/06/2024 13:36:29 vitamin D, 25-hydrox y, total, serum 2023 024 [email or web address] [facility], [address], [address], [place], [address], 07/06/2024 13:36:30 Referral None recorded. Procedures biopsy, liver (PROC) - CT or US guidance, depending on radiologi st's preferenc e 2024 025 [email or web address] 3 [facility], [address] [facility], [place], [address], 02/01/2025 09:18:22 Surgeries None recorded. Imaging None recorded. Medication Orders Ibsrela 50 mg tablet 2024 025 [facility], [address] [place] [address] [address], R[place] Schulz, [id number], 04/24/2025 11:10:06 Motegrity 2 mg tablet 2023 024 [email or web address] [facility], [address] [place] [address], [facility] [address], [place], [id number], 12/08/2024 08:57:40 Patient TargetsNo targets recorded. Patient InstructionsNo instructions recorded. Reason for Referral None Reported. Results Created Date Observation Date Name Description Value Unit Range Abnormal Flag Note LastModifiedBy Organization Detail LastModifiedTime 07/15/1907/15/2024 CBC NO DIFF (HEMO GRAM) WBC 5.9 K/uL 4.0-10 .5 Not Available [facility] ([facility]) [address] [place], [address], 07/15/2024 09:51:52 07/15/1907/15/2024 CBC NO DIFF (HEMO GRAM) RBC 5.0 M/mm3 4.2-6. 4 Not Available [facility] ([facility]) [address] [facility], [place], [address], 07/15/2024 09:51:52 07/15/1907/15/2024 CBC NO DIFF (HEMO GRAM) HGB 14.8 gm/dL 12.5-1 6.0 Not Available [facility] ([facility]) [address] [place], [address], 07/15/2024 09:51:52 07/15/19 25 07/15/2024 CBC NO DIFF (HEMO GRAM) HCT 44.8 % 37.0-4 7.0 Not Available [facility] ([facility]) [address] [place], [address], 07/15/2024 09:51:52 01/04/20 25 07/15/2024 CBC NO DIFF (HEMO GRAM) MCV 89.4 fL 78-100 Not Available [facility] ([facility]) [address], [place], [address], 07/15/2024 09:51:52 07/15/19 25 07/15/2024 CBC NO DIFF (HEMO GRAM) MCH 29.5 pg 27-31 Not Available [facility] ([facility]) [address], [place], [address], 07/15/2024 09:51:52 07/15/19 25 07/15/2024 CBC NO DIFF (HEMO GRAM) MCHC 33.0 g/dL 32-36 Not Available [facility] ([facility]) [address], [place], [address], 07/15/2024 09:51:52 07/15/19 25 07/15/2024 CBC NO DIFF (HEMO GRAM) RDW 14.9 % 11.5-1 4.0 high Not Available [facility] ([facility]) [address] [facility], [place], [address], 07/15/2024 09:51:52 07/15/19 25 07/15/2024 CBC NO DIFF (HEMO GRAM) platelet count 233 K/uL 150-45 0 Not Available [facility] ([facility]) [address] [facility], [place], [address], 07/15/2024 09:51:52 07/15/19 25 07/15/2024 CBC NO DIFF (HEMO GRAM) MPV 8.9 fL 6-9.5 Not Available [facility] ([facility]) [address], [place], [address], 07/15/2024 09:51:52 07/15/19 25 07/15/2024 CBC NO DIFF (HEMO GRAM) manual differential NO Not Available [facility] ([facility]) [address] , [place], [address], 07/15/2024 09:51:52 07/15/19 25 07/15/2024 PT (PROT HROMB IN TIME) W INR prothrombin time 10.4 secon ds 9.3-11 .4 Not Available [facility] ([facility]) [address] , [place], [address], 07/15/2024 10:13:39 07/15/19 25 07/15/2024 PT (PROT [...] Valve s Not Available [facility] ([facility]) [address] , [place], [address], 07/15/2024 10:13:39 07/15/19 25 07/15/2024 COMP METAB OLIC PANEL sodium 136 mmol/ L 136-14 5 Not Available [facility] ([facility]) [address] , [place], [address], 07/15/2024 10:18:53 07/15/19 25 07/15/2024 COMP METAB OLIC PANEL potassium 4.6 mmol/ L 3.6-5. 0 Not Available [facility] ([facility]) [address] , [place], [address], 07/15/2024 10:18:53 07/15/19 25 07/15/2024 COMP METAB OLIC PANEL chloride 101 mmol/ L 98-107 Not Available [facility] ([facility]) [address], [place], [address], 07/15/2024 10:18:53 07/15/19 25 07/15/2024 COMP METAB OLIC PANEL carbon dioxide 29.4 mmol/ L 21.0-3 2.0 Not Available [facility] ([facility]) [address] [facility], [place], [address], 07/15/2024 10:18:53 07/15/19 25 07/15/2024 COMP METAB OLIC PANEL anion gap 10.2 Not Available [facility] ([facility]) [address] [facility], [place], [address], 07/15/2024 10:18:53 07/15/19 25 07/15/2024 COMP METAB OLIC PANEL glucose 98 mg/dL 70-120 Not Available [facility] ([facility]) [address] [facility], [place], [address], 07/15/2024 10:18:53 07/15/19 25 07/15/2024 COMP METAB OLIC PANEL BUN 31 mg/dL 7-18 high Not Available [facility] ([facility]) [address] [facility], [place], [address], 07/15/2024 10:18:53 07/15/19 25 07/15/2024 COMP METAB OLIC PANEL creatinine 0.9 mg/dL 0.6-1. 3 Not Available [facility] ([facility]) [address] [place], [address], 07/15/2024 10:18:53 07/15/19 25 07/15/2024 COMP METAB [...] funct ion. Not Available [facility] ([facility]) [address] , [place], [address], 07/15/2024 10:18:53 07/15/19 25 07/15/2024 COMP METAB OLIC PANEL total protein 7.4 g/dL 6.4-8. 2 Not Available [facility] ([facility]) [address], [place], [address], 07/15/2024 10:18:53 07/15/19 25 07/15/2024 COMP METAB OLIC PANEL albumin 3.9 g/dL 3.4-5. 0 Not Available [facility] ([facility]) [address], [place], [address], 07/15/2024 10:18:53 07/15/19 25 07/15/2024 COMP METAB OLIC PANEL globulin 3.5 Not Available [facility] ([facility]) [address], [place], [address], 07/15/2024 10:18:53 07/15/19 25 07/15/2024 COMP METAB OLIC PANEL alb/glob ratio 1.1 0.7-2 Not Available [facility] ([facility]) [address] , [place], [address], 07/15/2024 10:18:53 07/15/19 25 07/15/2024 COMP METAB OLIC PANEL calcium 9.4 mg/dL 8.5-10 .5 Not Available [facility] ([facility]) [address], [place], [address], 07/15/2024 10:18:53 07/15/19 25 07/15/2024 COMP METAB OLIC PANEL bilirubin total 0.60 mg/dL 0.10-1 .00 Not Available [facility] ([facility]) [address] , [place], [address], 07/15/2024 10:18:53 07/15/19 25 07/15/2024 COMP METAB OLIC PANEL AST (SGOT) 38 U/L 0-37 high Not Available [facility] ([facility]) [address], [place], [address], 07/15/2024 10:18:53 07/15/19 25 07/15/2024 COMP METAB OLIC PANEL ALT (SGPT) 66 U/L 0-65 high Not Available [facility] ([facility]) [address], [place], [address], 07/15/2024 10:18:53 07/15/19 25 07/15/2024 COMP METAB OLIC PANEL alk phosphatase 83 U/L 46-116 Not Available [facility] ([facility]) [address], [place], [address], 07/15/2024 10:18:53 07/15/19 25 07/18/2024 CISNEROS FIBRO SURE PLUS alpha 2-macroglobu oralia, qn 266 mg/dL 110-27 6 Not Available [facility] ([facility]) [address], [place], [address], 07/18/2024 06:10:53 07/15/19 25 07/18/2024 CISNEROS FIBRO SURE PLUS haptoglobin 88 mg/dL 37-355 Not Available [facility] ([facility]) [address], [place], [address], 07/18/2024 06:10:53 07/15/19 25 07/18/2024 CISNEROS FIBRO SURE PLUS apolipoprote in A-1 167 mg/dL 116-20 9 Not Available [facility] ([facility]) [address], [place], [address], 07/18/2024 06:10:53 07/15/19 25 07/18/2024 CISNEROS FIBRO SURE PLUS bilirubin, total 0.4 mg/dL 0.0-1. 2 Not Available [facility] ([facility]) [address] [place], [address], 07/18/2024 06:10:53 07/15/19 25 07/18/2024 CISNEROS FIBRO SURE PLUS GGT 32 IU/L 0-60 Not Available [facility] ([facility]) [address] [place], [address], 07/18/2024 06:10:53 07/15/19 25 07/18/2024 CISNEROS FIBRO SURE PLUS ALT (SGPT) p5p 63 IU/L 0-40 high Not Available [facility] ([facility]) [address] , [place], [address], 07/18/2024 06:10:53 07/15/19 25 07/18/2024 CISNEROS FIBRO SURE PLUS AST (SGOT) p5p 42 IU/L 0-40 high Not Available [facility] ([facility]) [address] [place], [address], 07/18/2024 06:10:53 07/15/19 25 07/18/2024 CISNEROS FIBRO SURE PLUS cholesterol, total 122 mg/dL 100-19 9 Not Available [facility] ([facility]) [address] [place], [address], 07/18/2024 06:10:53 07/15/19 25 07/18/2024 CISNEROS FIBRO SURE PLUS glucose, serum 102 mg/dL 70-99 high Not Available [facility] ([facility]) [address] [place], [address], 07/18/2024 06:10:53 07/15/19 25 07/18/2024 CISNEROS FIBRO SURE PLUS triglyceride s 99 mg/dL 0-149 Not Available [facility] ([facility]) [address] [place], [address], 07/18/2024 06:10:53 07/15/19 25 07/18/2024 CISNEROS FIBRO [...] Cirrh osis Not Available [facility] ([facility]) [address] [place], [address], 07/18/2024 06:10:53 07/15/19 25 07/18/2024 CISNEROS FIBRO SURE PLUS fibrosis stage F1-F2 Not Available [facility] ([facility]) [address] [place], [address], 07/18/2024 06:10:53 07/15/19 25 07/18/2024 CISNEROS FIBRO SURE PLUS fibrosis score 0.34 0.00-0 .21 high Not Available [facility] ([facility]) [address] [place], [address], 07/18/2024 06:10:53 07/15/19 25 07/18/2024 CISNEROS FIBRO SURE PLUS steatosis score 0.48 0.00-0 .40 high Not Available [facility] ([facility]) [address] [place], [address], 07/18/2024 06:10:53 07/15/19 25 07/18/2024 CISNEROS FIBRO SURE PLUS steatosis grade Commen t S1 - Mild Steat osis (But Clini zuleyka Signi fican t) (5- 33%) Not Available [facility] ([facility]) [address] [place], [address], 07/18/2024 06:10:53 07/15/19 25 07/18/2024 CISNEROS FIBRO SURE PLUS steatosis scoring Commen t . <=0.4 0 = S0 - No Steat osis (<5%) 0.40 - 0.55 = S1 - Mild Steat osis (but Clini zuleyka Signi fican t) (5-33 %) >0.55 = S2S3- Moder ate to Sever e Steat osis (Clin icall y Signi fican t) (34-1 00%) Not Available [facility] ([facility]) [address], [place], [address], 07/18/2024 06:10:53 07/15/19 25 07/18/2024 CISNEROS FIBRO SURE PLUS cisneros scoring Commen t . <=0.2 5 = N0 - No CISNEROS/ MASH 0.25 - 0.50 = N1 - Mild CISNEROS/ MASH 0.50 - 0.75 = N2 - Moder ate CISNEROS/ MASH >0.75 = N3 - Sever e CISNEROS/ MASH Not Available [facility] ([facility]) [address], [place], [address], 07/18/2024 06:10:53 07/15/1907/18/2024 CISNEROS FIBRO SURE PLUS cisneros grade Commen t N3 - Sever e CISNEROS Not Available [facility] ([facility]) [address], [place], [address], 07/18/2024 06:10:53 07/15/19 25 07/18/2024 CISNEROS FIBRO SURE PLUS cisneros score 0.79 0.00-0 .25 high Not Available [facility] ([facility]) [address] , [place], [address], 07/18/2024 06:10:53 07/15/19 25 07/18/2024 CISNEROS FIBRO [...] fibro sis. Not Available [facility] ([facility]) [address], [place], [address], 07/18/2024 06:10:53 07/15/19 25 07/18/2024 CISNEROS FIBRO SURE PLUS methodology: Commen t . The sachi inessa teste d are perfo rmed by Fibro Sure- Speci fic metho ds. Not inten ded for use with other diagn ostic consi derat ions. Not Available [facility] ([facility]) [address], [place], [address], 07/18/2024 06:10:53 07/15/19 25 07/18/2024 CISNEROS FIBRO SURE PLUS interpretati on: Commen t . Quant itati ve resul ts of 10 bioch emica ls in combi natio n with age and gende r, are sachi zed using a compu tatio nal algor ithm to provi de a quant itati ve surro gate marke r (0.0- 1.0) of liver fibro sis ([place] vir F0-F4 ), hepat ic steat osis [...] fican t NAFLD /MASL D fibro sis ([place] vir F2-F4 ) and 11% had cirrh osis by liver biops y, a fibro sis resul t of >0.3 yield ed a sensi tivit y of 83% and a speci ficit y of 78% for the detec tion of signi fican t fibro sis. 1 Steat osis rebecae r: In a popul ation of 2997 patie nts, where 61% had signi fican t steat osis (>=5% ) on a liver biops y, a steat osis score >0.4 had a sensi tivit y of 79% and a speci ficit y of 50% for ident ifica tion of signi fican t steat osis. 2 CISNEROS/ MASH tex r: In a popul ation of 1081 NAFLD /MASL D patie nts, where 51% had at least some CISNEROS/ MASH by liver biops y, a predi ction of CISNEROS/ MASH had a sensi tivit y of 72% for ident ifyin g CISNEROS/ MASH and a speci ficit y of 71%. 3 Not Available [facility] ([facility]) [address] , [place], [address], 07/18/2024 06:10:53 07/15/19 25 07/18/2024 CISNEROS FIBRO [...] conta ct custo lester servi ce at [phone] . Refer ences : . 1. Vito mendoza V. et al. Diagn ostic Value of Bioch emica l Tex rs (Fibr oTest ) for the predi ction of Liver Fibro sis in patie nts with Non-A lcoho lic Fatty Liver Disea se. [facility] rolog y 2006 ; 6:6. 2. Selwyn Martino. et al. The Diagn ostic Perfo rmanc e of a Simpl i fied Blood Test (Susana Atkinson t-2) for the Predi ction of Liver [...] 30:56 9-577 . Perfo rmed at: - [facility] [address] [facility] [place] [address] 24[address] Lab Direc tor: Massiel ross MD, Phone : [phone] Not Available [facility] ([facility]) [address] [facility], [place], [address], 07/18/2024 06:10:53 12/09/19 25 12/09/2024 FE+TI BC+FE R iron bind.cap.(TI BC) 336 ug/dL 250-45 0 normal Not Available [facility] ([facility]) [address] [place], [address], 12/15/2024 14:37:18 12/09/19 25 12/09/2024 FE+TI BC+FE R UIBC 214 ug/dL 118-36 9 normal Not Available [facility] ([facility]) [address] [place], [address], 12/15/2024 14:37:18 12/09/19 25 12/09/2024 FE+TI BC+FE R iron 122 ug/dL 27-139 normal Not Available [facility] ([facility]) [address] [place], [address], 12/15/2024 14:37:18 12/09/19 25 12/09/2024 FE+TI BC+FE R iron saturation 36 % 15-55 normal Not Available [facility] ([facility]) [address] [place], [address], 12/15/2024 14:37:18 12/09/19 25 12/09/2024 FE+TI BC+FE R ferritin 31 NG/mL 15-150 normal Not Available [facility] ([facility]) [address] [place], [address], 12/15/2024 14:37:18 12/09/1912/09/2024 TSH+F REE T4 TSH 2.100 uIU/m L 0.450- 4.500 normal Not Available [facility] ([facility]) [address] [place], [address], 12/15/2024 14:37:19 12/09/19 25 12/09/2024 TSH+F REE T4 T4,free(dire ct) 0.83 NG/dL 0.82-1 .77 normal Not Available [facility] ([facility]) [address] [place], [address], 12/15/2024 14:37:19 12/09/19 25 12/08/2024 CBC WITH DIFFE RENTI AL/PL ATELE T WBC 6.1 x10e3 /uL 3.4-10 .8 normal Not Available [facility] ([facility]) [address] [place], [address], 12/15/2024 14:37:20 12/09/19 25 12/08/2024 CBC WITH DIFFE RENTI AL/PL ATELE T RBC 4.92 x10e6 /uL 3.77-5 .28 normal Not Available [facility] ([facility]) [address] [place], [address], 12/15/2024 14:37:20 12/09/19 25 12/08/2024 CBC WITH DIFFE RENTI AL/PL ATELE T hemoglobin 14.9 g/dL 11.1-1 5.9 normal Not Available [facility] ([facility]) [address] [facility], [place], [address], 12/15/2024 14:37:20 12/09/19 25 12/08/2024 CBC WITH DIFFE RENTI AL/PL ATELE T hematocrit 45.6 % 34.0-4 6.6 normal Not Available [facility] ([facility]) [address] [facility], [place], [address], 12/15/2024 14:37:20 12/09/19 25 12/08/2024 CBC WITH DIFFE RENTI AL/PL ATELE T MCV 93 fL 79-97 normal Not Available [facility] ([facility]) [address] [facility], [place], [address], 12/15/2024 14:37:20 12/09/19 25 12/08/2024 CBC WITH DIFFE RENTI AL/PL ATELE T MCH 30.3 pg 26.6-3 3.0 normal Not Available [facility] ([facility]) [address] [facility], [place], [address], 12/15/2024 14:37:20 12/09/19 25 12/08/2024 CBC WITH DIFFE RENTI AL/PL ATELE T MCHC 32.7 g/dL 31.5-3 5.7 normal Not Available [facility] ([facility]) [address] [facility], [place], [address], 12/15/2024 14:37:20 12/09/19 25 12/08/2024 CBC WITH DIFFE RENTI AL/PL ATELE T RDW 12.5 % 11.7-1 5.4 Not Available [facility] ([facility]) [address] [place], [address], 12/15/2024 14:37:20 12/09/19 25 12/08/2024 CBC WITH DIFFE RENTI AL/PL ATELE T platelets 234 x10e3 /uL 150-45 0 normal Not Available [facility] ([facility]) [address] [facility], [place], [address], 12/15/2024 14:37:20 12/09/19 25 12/08/2024 CBC WITH DIFFE RENTI AL/PL ATELE T neutrophils 56 % not estab. normal Not Available [facility] ([facility]) [address], [place], [address], 12/15/2024 14:37:20 12/09/19 25 12/08/2024 CBC WITH DIFFE RENTI AL/PL ATELE T lymphs 28 % not estab. normal Not Available [facility] ([facility]) [address], [place], [address], 12/15/2024 14:37:20 12/09/19 25 12/08/2024 CBC WITH DIFFE RENTI AL/PL ATELE T monocytes 10 % not estab. normal Not Available [facility] ([facility]) [address], [place], [address], 12/15/2024 14:37:20 12/09/19 25 12/08/2024 CBC WITH DIFFE RENTI AL/PL ATELE T eos 5 % not estab. normal Not Available [facility] ([facility]) [address], [place], [address], 12/15/2024 14:37:20 12/09/19 25 12/08/2024 CBC WITH DIFFE RENTI AL/PL ATELE T basos 1 % not estab. normal Not Available [facility] ([facility]) [address], [place], [address], 12/15/2024 14:37:20 12/09/19 25 12/08/2024 CBC WITH DIFFE RENTI AL/PL ATELE T immature cells [employer]EE [employer] SERVICER Not Available [facility] ([facility]) [address] [place], [address], 12/15/2024 14:37:20 12/09/19 25 12/08/2024 CBC WITH DIFFE RENTI AL/PL ATELE T neutrophils (absolute) 3.5 x10e3 /uL 1.4-7. 0 normal Not Available [facility] ([facility]) [address] [place], [address], 12/15/2024 14:37:20 12/09/19 25 12/08/2024 CBC WITH DIFFE RENTI AL/PL ATELE T lymphs (absolute) 1.7 x10e3 /uL 0.7-3. 1 normal Not Available [facility] ([facility]) [address] [place], [address], 12/15/2024 14:37:20 12/09/19 25 12/08/2024 CBC WITH DIFFE RENTI AL/PL ATELE T monocytes(ab solute) 0.6 x10e3 /uL 0.1-0. 9 normal Not Available [facility] ([facility]) [address] [place], [address], 12/15/2024 14:37:20 12/09/19 25 12/08/2024 CBC WITH DIFFE RENTI AL/PL ATELE T eos (absolute) 0.3 x10e3 /uL 0.0-0. 4 normal Not Available [facility] ([facility]) [address] [place], [address], 12/15/2024 14:37:20 12/09/19 25 12/08/2024 CBC WITH DIFFE RENTI AL/PL ATELE T baso (absolute) 0.1 x10e3 /uL 0.0-0. 2 normal Not Available [facility] ([facility]) [address] [place], [address], 12/15/2024 14:37:20 12/09/19 25 12/08/2024 CBC WITH DIFFE RENTI AL/PL ATELE T immature granulocytes 0 % not estab. Not Available [facility] ([facility]) [address], [place], [address], 12/15/2024 14:37:20 12/09/19 25 12/08/2024 CBC WITH DIFFE RENTI AL/PL ATELE T immature grans (abs) 0.0 x10e3 /uL 0.0-0. 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 METAB OLIC PANEL (14) glucose 91 mg/dL 70-99 normal Not Available [facility] ([facility]) [address], [place], [address], 12/15/2024 14:37:21 12/09/19 25 12/09/2024 COMP. METAB OLIC PANEL (14) BUN 33 mg/dL 8-27 above high normal Not Available [facility] ([facility]) [address], [place], [address], 12/15/2024 14:37:21 12/09/19 25 12/09/2024 COMP. METAB OLIC PANEL (14) creatinine 0.86 mg/dL 0.57-1 .00 normal Not Available [facility] ([facility]) [address] [place], [address], 12/15/2024 14:37:21 12/09/19 25 12/09/2024 COMP. METAB OLIC PANEL (14) eGFR 74 mL/mi n/1.7 3 >59 normal Not Available [facility] ([place] [facility]) [address] [place], [address], 12/15/2024 14:37:21 12/09/19 25 12/09/2024 COMP. METAB OLIC PANEL (14) BUN/creatini ne ratio 38 12-28 above high normal Not Available [facility] ([facility]) [address] [place], [address], 12/15/2024 14:37:21 12/09/19 25 12/09/2024 COMP. METAB OLIC PANEL (14) sodium 139 mmol/ L 134-14 4 normal Not Available [facility] ([place] [facility]) [address] [place], [address], 12/15/2024 14:37:21 12/09/19 25 12/09/2024 COMP. METAB OLIC PANEL (14) potassium 4.4 mmol/ L 3.5-5. 2 normal Not Available [facility] ([place] [facility]) [address] [place], [address], 12/15/2024 14:37:21 12/09/19 25 12/09/2024 COMP. METAB OLIC PANEL (14) chloride 104 mmol/ L 96-106 normal Not Available [facility] ([place] [facility]) [address] [place], [address], 12/15/2024 14:37:21 12/09/19 25 12/09/2024 COMP. METAB OLIC PANEL (14) carbon dioxide, total 21 mmol/ L 20-29 normal Not Available [facility] ([place] [facility]) [address], [place], [address], 12/15/2024 14:37:21 12/09/19 25 12/09/2024 COMP. METAB OLIC PANEL (14) calcium 9.4 mg/dL 8.7-10 .3 normal Not Available [facility] ([facility]) [address] [place], [address], 12/15/2024 14:37:21 12/09/19 25 12/09/2024 COMP. METAB OLIC PANEL (14) protein, total 6.5 g/dL 6.0-8. 5 normal Not Available [facility] ([facility]) [address] [place], [address], 12/15/2024 14:37:21 12/09/19 25 12/09/2024 COMP. METAB OLIC PANEL (14) albumin 4.2 g/dL 3.9-4. 9 normal Not Available [facility] ([facility]) [address] [place], [address], 12/15/2024 14:37:21 12/09/19 25 12/09/2024 COMP. METAB OLIC PANEL (14) globulin, total 2.3 g/dL 1.5-4. 5 Not Available [facility] ([facility]) [address] [place], [address], 12/15/2024 14:37:21 12/09/19 25 12/09/2024 COMP. METAB OLIC PANEL (14) bilirubin, total 0.4 mg/dL 0.0-1. 2 normal Not Available [facility] ([facility]) [address] [place], [address], 12/15/2024 14:37:21 12/09/19 25 12/09/2024 COMP. METAB OLIC PANEL (14) alkaline phosphatase 87 IU/L 44-121 normal Not Available [facility] ([facility]) [address] [place], [address], 12/15/2024 14:37:21 12/09/19 25 12/09/2024 COMP. METAB OLIC PANEL (14) AST (SGOT) 62 IU/L 0-40 above high normal Not Available [facility] ([facility]) [address] [place], [address], 12/15/2024 14:37:21 12/09/19 25 12/09/2024 COMP. METAB OLIC PANEL (14) ALT (SGPT) 89 IU/L 0-32 above high normal Not Available [facility] ([facility]) [address] [place], [address], 12/15/2024 14:37:21 12/09/19 25 12/09/2024 LIPID PANEL cholesterol, total 117 mg/dL 100-19 9 normal Not Available [facility] ([facility]) [address] [place], [address], 12/15/2024 14:37:22 12/09/19 25 12/09/2024 LIPID PANEL triglyceride s 69 mg/dL 0-149 normal Not Available [facility] ([facility]) [address] [place], [address], 12/15/2024 14:37:22 12/09/19 25 12/09/2024 LIPID PANEL HDL cholesterol 59 mg/dL >39 normal Not Available [facility] ([facility]) [address] [place], [address], 12/15/2024 14:37:22 12/09/19 25 12/09/2024 LIPID PANEL VLDL cholesterol apurva 14 mg/dL 5-40 Not Available [facility] ([facility]) [address] [place], [address], 12/15/2024 14:37:22 12/09/19 25 12/09/2024 LIPID PANEL LDL chol calc ([facility]) 44 mg/dL 0-99 Not Available [facility] ([facility]) [address], [place], [address], 12/15/2024 14:37:22 12/09/1912/09/2024 LIPID PANEL LDL calc comment: COFFEE [employer]KER SERVICER Not Available [facility] ([facility]) [address], [place], [address], 12/15/2024 14:37:22 12/09/19 25 12/15/2024 VITAM IN E vitamin E(alpha tocopherol) 13.1 mg/L 9.0-29 .0 Not Available [facility] ([facility]) [address], [place], [address], 12/15/2024 14:37:23 12/09/19 25 12/15/2024 VITAM IN [...] in E defic ient. Not Available [facility] ([facility]) [address], [place], [address], 12/15/2024 14:37:23 12/09/19 25 12/09/2024 HEMOG LOBIN A1C hemoglobin A1C 5.5 % 4.8-5. 6 normal Predi abete s: 5.7 - 6.4 Diabe inessa: >6.4 Glyce amauri contr ol for adult s with diabe inessa: <7.0 Not Available [facility] ([facility]) [address], [place], [address], 12/15/2024 14:37:24 12/09/19 25 12/09/2024 FOLAT E (FOLI C ACID) , SERUM folate (folic acid), serum >20.0 NG/mL >3.0 A serum folat e yanet ntrat ion of less than 3.1 ng/mL is consi dered to repre sent clini apurva defic iency . Not Available [facility] ([facility]) [address], [place], [address], 12/15/2024 14:37:24 12/09/19 25 12/15/2024 VITAM IN [...] Drug Admin istra tion. Not Available [facility] ([facility]) [address], [place], [address], 12/15/2024 14:37:25 12/09/19 25 12/09/2024 VITAM IN [...] um and D. Joanna roque [place]: The Nat nal [facility] Press . 2. Junie lugo MF, Garrick wallace [place], Valeria off-F errar i TURCIOS, et al. Evalu ation , treat ment, and preve ntion of vitam in D defic iency : an Endoc rine Socie ty clini apurva pract ice guide line. JCEM. 2010; 96(7) :1911 -30. Not Available [facility] ([facility]) [address] [place], [address], 12/15/2024 14:37:26 12/09/19 25 12/14/2024 VITAM IN B1 (THIA MINE) , BLOOD vit. B1, whole blood 324.9 nmol/ L 66.5-2 00.0 above high normal Not Available [facility] ([facility]) [address] [place], [address], 12/15/2024 14:37:27 12/09/19 25 12/13/2024 METHY LMALO ALICIA ACID, SERUM methylmaloni c acid, serum 278 nmol/ L 0-378 Not Available [facility] ([facility]) [address] [place], [address], 12/15/2024 14:37:28 12/09/19 25 12/11/2024 COPPE R, SERUM OR PLASM A copper, serum or plasma 106 ug/dL 80-158 Detec tion Limit = 5 Not Available [facility] ([facility]) [address] [place], [address], 12/15/2024 14:37:29 12/09/19 25 12/11/2024 ZINC, PLASM A OR SERUM zinc, plasma or serum 75 ug/dL 44-115 normal Detec tion Limit = 5 Not Available [facility] ([facility]) [address] [place], [address], 12/15/2024 14:37:30 12/09/19 25 12/09/2024 PREAL BUMIN prealbumin 22 mg/dL 10-36 Not Available [facility] ([facility]) [address] [place], [address], 12/15/2024 14:37:30 12/09/19 25 12/12/2024 SELEN IUM, BLOOD selenium, blood 155 ug/L 100-34 0 Detec tion Limit = 10 Not Available [facility] ([facility]) [address], [place], [address], 12/15/2024 14:37:31 01/19/20 25 01/18/2025 US biops y liver [facility] [address] [place] [address] Phone: Fax: Name: WENDY GOLDMAN Exam Date: : [birth year] Age 69 years Gender : F Access ion: [id number] Physic mani: ERNESTO AMEZCUA Facili ty: [facility] Facili ty HSV: Outpat ient Exam: US BIOPSY LIVER US GUIDED LIVER BIOPSY REASON FOR STUDY: metabo lic dysfun ction- associ ated steato hepati tis, nonalc ohol PATIEN T DEMOGR APHICS :69 years, Female COMPAR AUGUSTINE: No existi ng releva nt imagin g study correhalley rogers to the same anatom [facility] region is availa ble. DATE OF SERVIC [...] Thank you for referr WENDY Turpin to [facility]. Legall y authen ticate d by LUANA JEROME 01-18 12:45: 20 CC'ed Logic: Orderi ng Provid er: CARLA GOVEA Attend ing Provid er: CARLA GOVEA Referr ing Provid er: CARLA GOVEA Admitt ing Provid er: CARLA GOVEA [facility] [address] [place] [address], [place], [address], 01/19/2025 13:40:21 01/30/20 25 01/18/2025 [facility] [address] [place] [address] Phone: Fax: Name: WENDY GOLDMAN Exam Date: 025 : [birth year] Age 69 years Gender : F Access ion: [id number] Physic mani: ERNESTO AMEZCUA Facili ty: [facility] Facili ty HSV: Outpat ient Exam: US BIOPSY LIVER US GUIDED LIVER BIOPSY REASON FOR STUDY: metabo lic dysfun ction- associ ated steato hepati tis, nonalc ohol PATIEN T DEMOGR APHICS :69 years, Female COMPAR AUGUSTINE: No existi ng releva nt imagin g study corres pondin g to the same anatom ica region [...] were collec serenity [facility] [place] [facility] [place] [facility] [place] is. After the [...] and approp riate dressi ngs were applnelli land Impres yifan: 1. CT-jean ded right hepati c lobe biopsy as descri bed above. Electr onical ly signed by: Corky siu MD 2024 12:45 PM EDT RP Workst ation: [id number] Dictat ed By: Corky Suggs Dictat ed Date: 025 9:12:3 7 AM Electr onical ly signed by: Corky Suggs 025 Thank you [facility] Legall y authen ticate d by LUANA JEROME 2024-0 01-29 09:12: 37 CC'ed Logic: Orderi ng Provid er: CARLA GOVEA Attend ing Provid er: CARLA GOVEA Referr ing Provid er: CARLA GOVEA Admitt ing Provid er: CARLA GOVEA [email or web address] [facility] [address] , [place], [address], 02/27/2025 16:16:53 Result Notes None recorded. Problems Name Problem SNOMED Code Status Onset Date Resolution Date Notes Provider Name and Address Organization Details Recorded Time Chronic idiopathi c constipat ion 93866795 Active 2021 Ernesto Amezcua PA-C [address], [place], [address] , [place] - [facility] - [place] & [place] 5 10:55:11 Gastroeso phageal reflux disease 188241395 Active 2021 Not Available [facility] 3 16:06:44 Diarrhea 77973385 Active 2021 Not Available [facility] 3 16:06:44 Hypokalem ia 36512500 Active 2021 Not Available [facility] 3 16:06:44 Abdominal pain 00414208 Active 2021 Not Available [facility] 3 16:06:44 Myocardia l infarctio n 43157563 Completed 202103/25/2022 Azeb Quesada null, [place] - [facility] & [place] 2 14:37:03 Fibromyal dominique 223665432 Active 2021 Not Available [facility] 3 16:06:44 Mild dementia 80742915848 4108 Active 2021 Not Available [facility] 3 16:06:44 Chronic obstructi ve pulmonary disease 74003473 Active 2021 Not Available [facility] 3 16:06:44 Hiatal hernia 33679882 Completed 202103/25/2022 Azeb Quesada null, [place] [facility] & [place] 2 14:38:57 Chronic depressio n 666318654 Active 2021 Not Available [facility] 3 16:06:44 Obesity 241952952 Active 2021 Ernesto Amezcua PA-C [address] , [place], [address] , [place] - [facility] - [place] & [place] 2 14:51:36 Hypertens silvino disorder 28282404 Active 2022 Not Available [facility] 3 16:06:44 Dyslipide franc 538172496 Active 2022 Not Available [facility] 3 16:06:44 Morbid obesity 592649281 Active 2022 Not Available [facility] 3 16:06:44 Dizziness 087280829 Active 2022 Not Available [facility] 3 16:06:44 Intention al weight loss 883642585 Active 2022 Not Available [facility] 3 16:06:44 Constipat ion 26933501 Active 2022 Ernesto Amezcua PA-C [address], [place], [place], [address] [place] [address] , [place] - [facility] - [place] & [place] 3 15:41:42 Overweigh t 719234464 Active 2023 Aden Husain DNP, [employer]ER, [employer]FFEE MAKER SERVICER-C [address], [place], [place], [address] [place] [address] , [place] [facility] - [place] & [place] 4 09:57:50 Fatigue 71205147 Active 2023 Aden Husain DNP, MOSQUITO SPRAYER, COFFEE MAKER SERVICERJevonC [address], [place], [place], [address] [place] [address] , [place] [facility] - [place] & [place] 4 10:00:39 Liver enzymes level above reference range 970026845 Active 2023 Ernesto Amezcua PA-C [address], [place], [address] , [place] [facility] - [place] & [employer] 5 10:55:11 Low back pain 152025933 Active 2023 Aden Husain DNP, MOSQUITO SPRAYER, [employer]FFEE MAKER SERVICER-C [address], [place], [address] , [place] [facility] - [place] & [place] 4 15:56:35 Irritable bowel syndrome character ized by constipat ion 000097381 Active 2023 Ernesto Amezcua PA-C [address], [place], [address] , [place] [facility] - [place] & [place] 5 11:07:41 Metabolic dysfuncti on-associ ated steatohep atitis 025399030 Active 2023 Ernesto Amezcua PA-C [address], [place], [address] , [place] [facility] & [place] 5 14:30:35 Gastroeso phageal reflux disease without esophagit is 478307606 Active 2023 Ernesto Amezcua PA-C [address], [place], [address] , [place] [facility] & [place] 5 10:55:11 Hyperlipi demia 92946584 Active 2024 Ernesto Amezcua PA-C [address], [place], [address] , [place] [facility] & [place] 5 13:05:05 Irritable bowel syndrome 09319285 Active 2024 Palak Gage [facility], [place] - [facility] & [place] 5 11:45:44 Problem Notes None recorded. Procedures Surgical History Date Name Laterality Status Provider Name and Address Organization Details Recorded Time 07/23/[address], [place] [address] , [place], [address], [place] [facility] & [place] 08/14/2022 16:17:22 05/28/20 21 Date of Last Pap Smear completed RIMMA RAY RD, LD [address], [place], [address], [place] [facility] & [place] 08/14/2022 16:17:22 12/20/19 21 Date of Last Colonoscopy completed RIMMA RAY RD, LD [address], [place], [address], [place] [facility] & [place] 08/14/2022 16:17:22 11/17/19 20 Most Recent Bone Density completed RIMMA RAY RD, LD [address], [place], [address], [place] [facility] & [place] 08/14/2022 16:17:22 Appendectomy completed Not Available [facility] 13:08:39 extraction of wisdom tooth completed Not Available [facility] 08/10/2022 13:08:39 lithotripsy completed Not Available [facility] 07/14 13:08:39 Colonoscopy completed Marychuy Quesada [facility] & [place] 08/13/2022 11:21:25 EGD completed Marychuy SNOW [facility] & [place] 08/13/2022 11:21:36 Gastric Bypass completed Dipeshkaryn Dow [facility] & [place] 12/29/2022 08:20:27 Imaging Results None recorded. Procedure Notes None recorded. Medical Equipment None Reported. Allergies Allergen ID Allergen Name Allergen Category Reaction Reaction Severity Criticality Documentation Date Start Date Code Code System Note Provider Name and Address Organization Details Recorded Time 48815 Product containin g penicilli n (product) medicatio n Not available Not available Not available 03/25/2022 61237 8001 SNOMED [facility] [place] 2 14:01:10 449234 indometha gen medicatio n Not available Not available Not available 06/19/2024 5781 RxNorm Other react ions and sever ities : 'Adve rse react ion to subst ance' . [facility] 14:05:45 508807 penicilli n V Not available Not available Not available Not available 06/19/2024 7984 RxNorm Other react ions and sever ities : 'Anap hylax is due to subst ance' . [facility] [place] 4 14:05:45 308598 milnacipr an medicatio n Not available Not available Not available 06/19/2024 80747 0 RxNorm Other react ions and sever ities : 'Adve rse react ion to subst ance' . [facility] [place] 4 14:05:45 32248 Savella medicatio n Not available Not available Not available 08/13/2022 49549 6 RxNorm Marychuyuriah Quesada [facility], [place] [facility] - [place] & [place] 3 11:18:57 Medications Name Sig [...] cm 98.1 [degF] 75 /min 24.8 kg/m2 66979.7 4 g 96/70 mm[Hg] Araceli Velasquez [facility] & [place] 5 09:01:03 Date Recorded Body height Body mass index (BMI) Body weight Body temperature Heart rate Provider Name and Address Organization Details Last Updated DateTime 12/27/2024 162.56 cm 24.7 kg/m2 40938.58 g 98.4 [degF] 97 /min [facility] [place] 5 14:16:54 Date Recorded Body height Body mass index (BMI) Body weight Body temperature Oxygen saturation Oxygen saturation in Arterial blood by Pulse oximetry Heart rate Heart rate Systolic And Diastolic Provider Name and Address Organization Details Last Updated DateTime 5 162.56 cm 25.2 kg/m2 71398.0 8 g 97.2 [degF] 96 % 96 % 66 /min 67 /min 132/86 mm[Hg] Francisca SNOW [facility] & [place] 5 10:53:10 Date Recorded Body height Body temperature Heart rate Body mass index (BMI) Body weight Systolic And Diastolic Provider Name and Address Organization Details Last Updated DateTime 4 162.56 cm 98.7 [degF] 89 /min 25 kg/m2 35159.4 1 g 113/81 mm[Hg] Araceli SNOW [facility] & [place] 4 09:17:32 Date Recorded Body height Body mass index (BMI) Body weight Body temperature Heart rate Heart rate Oxygen saturation Oxygen saturation in Arterial blood by Pulse oximetry Systolic And Diastolic Provider Name and Address Organization Details Last Updated DateTime 4 162.56 cm 24.8 kg/m2 51336.0 2 g 97.4 [degF] 99 /min 98 /min 97 % 97 % 107/73 mm[Hg] Francisca Nolascowell [facility] & [place] 13:05:54 Social History Question Answer Notes LastModified by [employer] Details LastModified Time Tobacco Smoking Status Former Smoker quit 3 years ago Araceli Velasquez [facility], [facility] & [place] 09/06/2023 09:49:34 Do You Have An Advance Directive? No [email or web address] Information not available 08/14/2022 Are You Blind Or Do You Have Difficulty Seeing? No [email or web address] Information not available 08/14/2022 What Was The Date Of Your Most Recent Tobacco Screening? 08/10/2022 [email or web address] Information not available 08/14/2022 Are You Passively Exposed To Smoke? No [email or web address] Information not available 08/14/2022 How Much Tobacco Do You Smoke? No [email or web address] Information not available 08/14/2022 Sex: Male Functional Status Question Answer Note LastModified by [employer] Details LastModified Time Do you use any illicit or recreational drugs? No [email or web address] Information not available 08/10/2022 What is your level of alcohol consumption? None Information not available 08/10/2022 Do you or have you ever used smokeless tobacco? Never used smokeless tobacco [email or web address] Information not available 08/14/2022 What is your exercise level? None [email or web address] Information not available 08/14/2022 Mental Status Question Answer Note LastModified by Organization D etails LastModified Time Do you feel stressed (tense, restless, nervous, or anxious, or unable to sleep at night)? [id number] [email or web address] Information not available 08/14/2022 Family History Relationship Description Onset Age of this Age Resolved Age Notes LastModified by Organization Details LastModified Time Father Obesity [email or web address] Not availa ble 08/10/2022 08:30:50 Father Diabetes mellitus [email or web address] Not available 2024 10:25:27 Father Hypertensive disorder [email or web address] Not available 08:31:23 Father Heart disease [email or web address] Not available 08:31:48 Father Cerebrovascu lar accident [email or web address] Not available 08/10/2022 08:32:04 Father Hypercholest erolemia [email or web address] Not available 08:32:27 Father Asthma [email or web address] Not available 10:25:27 Father Allergy pt. added direct ly (08/10) [email or web address] Not available 08/10/2022 13:04:20 Father Disorder of endocrine system pt. added direct ly (08/10) [email or web address] Not available 08/10/2022 13:07:54 Maternal Grandmother Obesity Not available 0 08/10/2022 08:30:50 Maternal Grandmother Hypertensive disorder [email or web address] Not available 08:31:23 Maternal Grandmother Heart disease [email or web address] Not available 08:31:49 Mother Hypertensive disorder [email or web address] Not available 08:31:23 Mother Heart disease [email or web address] Not available 08:31:48 Mother Cerebrovascu lar accident [email or web address] Not available 08/10/2022 08:32:04 Mother Hypercholest erolemia [id number] Not available 08:32:27 Mother Allergy pt. added direct ly (08/10) API-13 Not available 08/10/2022 13:04:20 Brother Hypertensive disorder [email or web address] Not available 08:31:23 Brother Heart disease [email or web address] Not available 08:31:49 Brother Hypercholest erolemia [email or web address] Not available 08:32:27 Brother Cerebrovascu lar accident pt. added direct ly (09/03) API-13 Not available 09/03/2023 11:07:40 Sister Hypertensive disorder [id number] Not available 08:31:23 Sister Hypercholest erolemia [id number] Not available 08:32:27 Maternal Grandfather Heart disease [email or web address] Not available 08:31:49 Maternal Uncle Allergy pt. added direct ly (08/10) API-13 Not available 08/10/2022 13:04:20 Paternal Grandmother Obesity pt. added direct ly (08/10) API-13 Not available 08/10/2022 13:08:19 Medical History Condition Response Other Y Gout N Kidney Stones Y COPD Y Depression Y Osteoporosis/Osteopenia Y Constipation Y Spine Problems Y Heart Attack ([place]) Y Obstructive Sleep Apnea Y Anxiety Disorder [...] virus, quadrivalent, preservative 7 completed Not Available [facility] 01/01/2023 16:06:44 Influenza, recombinant, quadrivalent, PF 1 completed Not Available [facility] 01/01/2023 16:06:44 Influenza, recombinant, quadrivalent, PF 0 completed Not Available [facility] 01/01/2023 16:06:44 zoster recombinant 1 completed Not Available [facility] 01/01/2023 16:06:44 zoster recombinant 1 completed Not Available [facility] 01/01/2023 16:06:44 MMR 6 completed Not Available [facility] 01/01/2023 16:06:44 COVID-19, mRNA, LNP-S, PF, 100 mcg/0.5mL dose or 50 mcg/0.25mL dose 1 completed Not Available [facility] 01/01/2023 16:06:44 COVID-19, mRNA, LNP-S, PF, 100 mcg/0.5mL dose or 50 mcg/0.25mL dose 1 completed Not Available [facility] 01/01/2023 16:06:44 COVID-19, mRNA, LNP-S, PF, 100 mcg/0.5mL dose or 50 mcg/0.25mL dose 1 completed Not Available [facility] 01/01/2023 16:06:44 Pneumococcal conjugate PCV20, polysaccharide [id number] conjugate, adjuvant, PF 2 completed Not Available [facility] 01/01/2023 16:06:44 pneumococcal polysaccharide PPV23 1 completed Not Available [facility] 01/01/2023 16:06:44 pneumococcal polysaccharide PPV23 7 completed Not Available [facility] 01/01/2023 16:06:44 Influenza, split virus, quadrivalent, PF 9 completed Not Available [facility] 01/01/2023 16:06:44 Influenza, split virus, quadrivalent, PF 2 completed Not Available [facility] 01/01/2023 16:06:44 Influenza, split virus, quadrivalent, PF 8 completed Not Available [facility] 01/01/2023 16:06:44 influenza, unspecified formulation 4 completed Kary Rust null, [place] - [facility] & [place] 08/08/2024 13:51:39 Respiratory syncytial virus (RSV) MAB, unspecified 4 completed Araceli Velasquez null, [place] [facility] & [place] 06/06/2024 09:21:15 Influenza, high-dose, quadrivalent, PF 3 completed Kary Rust null, [place] [facility] [place] 08/08/2024 13:51:39 RSV, recombinant, protein subunit RSVpreF, adjuvant reconstituted, 0.5 mL, PF 4 completed Kary Rust null, [place] [facility] [place] 08/08/2024 13:51:39 Influenza, high-dose, trivalent, PF 4 completed Kary Rust [facility], [place] - [facility] - [place] & [place] 08/08/2024 13:51:39 Past Encounters Encounter ID Performer Location Encounter Start Date Encounter Closed Date Diagnosis/Indication Diagnosis SNOMED-CT Code Diagnosis ICD10 Code Diagnosis IMO Codes Diagnosis Note [id number] Ernesto Amezcua PA-C [facility] [address] [place] [address] 03/25/2022 13:56:07 03/25/2022 14:27:57 Chronic idiopathic constipation 27485793 K59.04 Continue current bowel regimen with stool softners, fiber supplement , and Miralax as needed Gastroesop hageal reflux disease 332626073 K21.9 Increase PPI to twice daily due to refractory symptoms Obesity 661452632 E66.9 Referral to Bariatrics to discuss weight loss options. [id number] RANI Rosario [facility] [address] [facility] [address] [place] [address] 08/13/2022 07:57:41 08/13/2022 11:52:06 Obesity 625641272 E66.9 The patient will be scheduled for [...] been completed Chronic ob structive pulmonary disease 33293951 J44.9 Hypertensive disorder 38 817775 I10 Dyslipidemia 078186369 E 78.5 Hx CAD s/p [place] 2014 Gastroesop hageal reflux disease 803395962 K21.9 We discussed concerns of worsening gastroesop [...] lifelong contraindi cation to tobacco/ni cotine use [id number] Ernesto Amezcua PA-C [facility] [facility] [address] [place] [address] 09/21/2022 13:44:59 09/21/2022 14:12:51 Chronic idiopathic constipation 17484087 K59.04 Gastroesop hageal reflux disease 225493682 K21.9 Obesity 930061717 E66.9 [id number] Gabo Sahu DO [facility] [address] [place] [address] [address] [place] [address] 12/16/2022 08:52:42 12/16/2022 13:36:20 Morbid obesity 601040142 E66.01 Pre-surger y evaluation 367179002 Z01.818 Postoperative pain 85992 9007 G89.18 Hypertensive disorder 38 031184 I10 Gastroesop hageal reflux disease 192780662 K21.9 [id number] Aden Husain DNP, [employer]ER, [employer]FFEE MAKER SERVICER-C [facility] [address] [place] [address] [address] [place] [address] 12/29/2022 07:58:00 12/29/2022 10:15:25 History of bariatric surgical procedure 030112932 Z98.84 Chronic depression 69407 0009 F32.A Chronic ob structive pulmonary disease 47472321 J44.9 Dyslipidemia 515597012 E 78.5 Fibromyalgia 693580326 M 79.7 Hypertensive disorder 38 195344 I10 advised to follow back up with pcp regarding elevated blood pressure and dizziness. Morbid obesity 013574255 E66.01 Dizziness 169511649 R42 Intentiona l weight loss 799120181 R63.8 [id number] Aden Husain DNP, ARSENIO, COFFEE MAKER SERVICER-C [facility] [address] [facility] [address] [place] [address] 01/19/2023 09:44:10 01/19/2023 11:03:53 History of bariatric surgical procedure 709985074 Z98.84 Intentiona l weight loss 298508744 R63.8 History of gastrectomy 851790041 Z90.3 Advised qid intake 50% protein 7441-9662 calories/d y less than 100 carbs/dyPa tient was see dietitian today. Patient is status post bariatric surgery and at increased risk for vitamin deficienci es and malnutriti on. Bariatric vitamin panel ordered today. Patient will be contacted to correct any vitamin deficienci es. Chronic ob structive pulmonary disease 92109290 J44.9 Dyslipidemia 104768189 E 78.5 Fibromyalgia 319380174 M 79.7 Hypertensive disorder 38 091671 I10 advised to follow back up with pcp regarding elevated blood pressure and dizziness. Morbid obesity 058307448 E66.01 Dizziness 684639760 R42 [id number] Aden Husain, DNP, [employer]IT[employer] SPRAYER, COFFEE MAKER SERVICER-C [facility] [address] [facility] [address] [place] [address] 03/19/2023 10:10:54 03/19/2023 11:00:26 History of bariatric surgical procedure 759940770 Z98.84 Intentiona l weight loss 424895561 R63.8 History of gastrectomy 092530140 Z90.3 Advised qid intake 50% protein 1551-4390 calories/d y less than 100 carbs/dyLo ng [...] to correct any vitamin deficienci es. Dyslipidemia 166075061 E 78.5 Fibromyalgia 135776477 M 79.7 Obesity 886102613 E66.9 [id number] Ernesto Amezcua PA-C [facility] [facility] [address] [place] [address] 05/20/2023 14:50:51 05/20/2023 15:32:08 Obesity 048689591 E66.9 History of bypass of stomach 719426590 Z98.84 History of gastroesophageal reflux disease 1281308976 9106 Z87.19 Constipation 43333291 K5 9.00 [id number] Aden Husain, DNP, [employer] SPRAYER, COFFEE MAKER SERVICER-C [facility] [address] [facility] [address] [facility] [place] [address] 05/28/2023 09:12:11 05/28/2023 09:46:17 History of bariatric surgical procedure 869737520 Z98.84 Intentiona l weight loss 629200274 R63.8 History of gastrectomy 759398849 Z90.3 Advised qid intake 50% protein 4369-3582 calories/d y less than 100 carbs/dy Long [...] correct any vitamin deficienci es. Chronic depression 79773 0009 F32.A Chronic id iopathic constipation 25938446 K59.04 Dyslipidemia 232922368 E 78.5 Fibromyalgia 172116573 M 79.7 Hypertensive disorder 38 716388 I10 Obesity 756996506 E66.[id number] THOMAS RDN, LD [facility] [address] [facility] [address] [facility] [place] [address] 05/28/2023 09:47:21 05/28/2023 10:33:33 Obesity 390453721 E66.9 Discussed lifestyle modificati ons for continued weight loss and optimal nutrition Deficient knowledge of food and/or nutrition 9771411229 Z76.89 RDN advised pt on ways she can increase her protein and calorie intake, including adding peanut butter with fruits and making mixed dishes such as reduced fat casseroles . Advised pt to try baked apples with a small amount of canola oil, cinnamon and Splenda or similar alternativ e as needed. [id number] Aden Husain DNP, ARSENIO, COFFEE MAKER SERVICER-C [facility] [address] [facility] [address] [place] [address] 09/06/2023 09:37:05 09/06/2023 10:21:52 Dyslipidemia 745502968 E78.5 Fibromyalgia 463893323 M 79.7 Hypertensive disorder 38 218573 I10 Overweight 191223121 E66 .3 Intentiona l weight loss 811972416 R63.8 History of gastrectomy 092004371 Z90.3 Advised qid intake 50% protein 0078-2468 calories/d y less than 100 carbs/dy Long [...] to correct any vitamin deficienci es. Fatigue 87444788 R53.83 [id number] Aden Husain DNP, ARSENIO, COFFEE MAKER SERVICERJevonC [facility] [address] [facility] [address] [place] [address] 12/07/2023 13:03:52 12/07/2023 14:39:49 History of bariatric surgical procedure 841476041 Z98.84 Intentiona l weight loss 588525483 R63.8 History of gastrectomy 684843535 Z90.3 Advised qid intake 50% protein 5837-3798 calories/d y less than 100 carbs/dy Long [...] to correct any vitamin deficienci es. Dyslipidemia 710608095 E 78.5 Hypertensive disorder 38 489029 I10 Overweight 433361238 E66 .3 Chronic ob structive pulmonary disease 77559315 J44.9 Liver enzy mes level above reference range 602409940 R74.01 [id number] Jonas Ball MD [facility] [address] [place] [address] 12/21/2023 14:58:32 12/21/2023 16:40:24 Obesity 867136098 E66.9 History of bypass of stomach 954120375 Z98.84 History of gastroesophageal reflux disease 4493943825 9106 Z87.19 Constipation 75602872 K5 9.00 Liver enzy mes level above reference range 039322914 R74.01 [id number] Ernesto Amezcua PA-C [facility] [address] [place] [address] 03/02/2024 08:10:22 03/02/2024 09:21:52 Obesity 588660407 E66.9 History of bypass of stomach 542137434 Z98.84 History of gastroesophageal reflux disease 4352702016 9106 Z87.19 Liver enzy mes level above reference range 611168102 R74.01 Irritable bowel syndrome characterized by constipation 242201017 K58.1 [id number] Aden Husain, DNP, [employer]IT[employer] SPRAYER, COFFEE MAKER SERVICER-C [facility] [address] [facility] [address] [place] [address] 03/06/2024 09:07:07 03/06/2024 10:03:41 History of bariatric surgical procedure 218689163 Z98.84 Intentiona l weight loss 630867757 R63.8 History of gastrectomy 770984687 Z90.3 Advised qid intake 50% protein 7247-9009 calories/d y less than 100 carbs/dyLo ng [...] to correct any vitamin deficienci es. Dyslipidemia 144659056 E 78.5 Hypertensive disorder 38 190917 I10 Overweight 743261476 E66 .3 Chronic id iopathic constipation 33222756 K59.04 [id number] Aden Husain, DNP, [employer]IT[employer] SPRAYER, COFFEE MAKER SERVICER-C [facility] [address] [facility] [address] [place] [address] 06/06/2024 09:07:53 06/06/2024 09:44:14 Intentional weight loss 393603076 R63.8 History of gastrectomy 831203992 Z90.3 Advised qid intake 50% protein 4612-7059 calories/d y less than 100 carbs/dyLo ng [...] [facility] risk of nutritional deficit 831201671 Z91.89 Chronic ob structive pulmonary disease 89541753 J44.9 Dyslipidemia 202587472 E 78.5 Hypertensive disorder 38 146335 I10 Liver enzy mes level above reference range 888806654 R74.01 Overweight 837042541 E66 .3 [id number] Ernesto Amezcua PA-C [facility] [facility] [address] [place] [address] 06/26/2024 12:47:56 06/26/2024 13:41:37 Chronic idiopathic constipation 38922182 K59.04 Metabolic dysfunction-associate d steatohepatitis 896711225 K75.81 Liver enzy mes level above reference range 871203900 R74.01 Gastroesop hageal reflux disease without esophagitis 738281697 K21.9 History of colonoscopy 8743098566 09 Z98.070 [id number] Aden Husain, DNP, MOSQUITO SPRAYER, COFFEE MAKER SERVICER-C [facility] [address] [facility] [address] [place] [address] 12/08/2024 08:48:35 12/08/2024 09:28:10 History of bariatric surgical procedure 930164976 Z98.84 [id number] Intentiona l weight loss 487851423 R63.8 History of gastrectomy 202553603 Z90.3 Advised qid intake 50% protein 7979-8919 calories/d y less than 100 carbs/dy Long [...] to correct any vitamin deficienci es. At [facility] risk of nutritional deficit 582127472 Z91.89 Dyslipidemia 321294749 E 78.5 Hypertensive disorder 38 619329 I10 Overweight 047233058 E66 .3 [id number] Ernesto Amezcua PA-C [facility] [address] [facility] [address] [place] [address] 12/27/2024 14:10:09 12/27/2024 14:38:18 Liver enzymes level above reference range 294231102 R74.01 Metabolic dysfunction-associate d steatohepatitis 299906646 K75.81 7617286839 Gastroesop hageal reflux disease without esophagitis 787374514 K21.9 Chronic id iopathic constipation 50739496 K59.04 History of colonoscopy 6058845404 09 Z98.677 [id number] Ernesto Amezcua PA-C [facility] [facility] [address] [place] [address] 04/24/2025 10:24:37 04/24/2025 11:45:04 Liver enzymes level above reference range 050724418 R74.01 Metabolic dysfunction-associate d steatohepatitis 110836219 K75.81 6694879268 Gastroesop hageal reflux disease without esophagitis 415236260 K21.9 Chronic id iopathic constipation 58761632 K59.04 History of colonoscopy 9230617789 09 Z98.890 Irritable bowel syndrome characterized by constipation 873825845 K58.1 [id number] Hyperlipidemia 11394945 E78.5 [id number] Health Concerns Section Related Observation LastModified by Organization Detai ls LastModified Time None Recorded Concern Status LastModified by Organization Details LastModified Time None Recorded Advance Directives Directive N: Payers Insurance Date Sequence Insurance Name Policy Number Policy Acosta Covered Member ID Acosta Member ID Guarantor Name 01/04/2025 1 MEDICARE [place]: [place] Wendy K [place] [id number] Wendy [place] 04/21/2025 2 AARP (MEDICARE SUPPLEMENT) Wendy K Espinoza [id number] Wendy [place] 01/04/2025 [place] Wendy K Espinoza [id number] Wendy Espinoza 04/21/2025 1 [place] Wendy K [place] [id number] Wendy [place] 12/04/2020 3 [place] [id number] R Stanislav Doran [id number] Wendy Espinoza 01/04/2025 2 [place] Wendy K Espinoza [id number] Wendy Espinoza 01/04/2025 4 [employer] (MEDICARE REPLACEMENT/ ADVANTAGE - HMO) Wendy K Espinoza [id number] Wendy [place] 01/04/2025 1 [employer] (MEDICARE REPLACEMENT/ ADVANTAGE - PPO) Wendy K Espinoza [id number] Wendy Espinoza Notes Date Note Type Note Provider Name and Address Organization Details Recorded Time 06/06/2024 text/html ROS as noted in the [...] = 1309 kilo calories Aden Husain, CAMMIE, MOSQUITO SPRAYER, COFFEE MAKER SERVICER-C [address], [place], [address], [facility] 06/06/2024 11:11:04 06/26/2024 text/html ROS as noted [...] bypass 1.5 years ago. Ernesto Amezcua PA-C [address], [place], [address], [facility] 06/26/2024 13:49:44 12/08/2024 text/html ROS as noted in the HPI Patient presents the office today for routine 24 month follow-up status post bariatric gastric RNY gastric bypass surgery performed on 2022. Patient doing well. Reports q.i.d. small meal intake. Reports 90g/dy protein intake and good hydration.Patient is drinking 64 ounces of water a day.Daily Calories 1000-1200Taking routine vitamins as advised.Heartburn/g astroesophageal reflux: deniesPt [...] = 1261 kilo calories Aden Husain, DNP, MOSQUITO SPRAYER, COFFEE MAKER SERVICER-C [address], [place], [address], [facility] & [place] 12/08/2024 09:20:24 12/27/2024 text/html ROS as noted [...] overall at this time. Ernesto Amezcua PA-C [address], [place], [address], [facility] & [place] 12/27/2024 14:41:34 04/24/2025 text/html ROS as noted in the [...] 2 vegetable laxatives daily. Ernesto Amezcua PA-C [address], [place], [address], [facility] [place] [facility] [place] & [place] 04/24/2025 12:45:51 OBGyn Episode No OBEpisode recorded.
== END 2025-05-15 23:59 | disposition home or self-care (01) ==
LOC: RAD 15:26
PROVIDERS: PCP Family Medicine; Visit Provider Family Medicine
DX: J43.9 Emphysema, unspecified (principal)
CPT/HCPCS: 71046

== ENCOUNTER 2025-05-21 12:06 | Outpatient (CLI) | payer MEDICARE, SELFPAY ==
--- OUTSIDE RECORDS SUMMARY | 2025-05-21 12:09 | XMS_ITS | Data Portability ---
Author Organization [place] - [facility] [place] [facility] [place] [facility] AD[facility] Address [address] [place] [id number] Care Team Providers Care [place] Performer Name Role Phone GENET BRUCE Primary Care [...] for screening. f/u 6 months and PRN [email or web address] Not available 06/26/2024 13:49:07 12/27/2024 12/27/2024 69-year-old [...] recommended 04/2029 for screening. f/u 1 month [email or web address] Not available 12/27/2024 14:41:04 04/24/2025 04/24/2025 69-year-old [...] recommended 04/2029 for screening. f/u 1 month [email or web address] Not available 04/24/2025 12:45:02 Plan of Treatment Reminders Order Date Submit Date Provider Last Modified By Organization Details Last Modified Time Details Appointments Establish ed Visit 15 min 2024 10:00A M Ernesto Amezcua PA-C Not available Not available Not available OV EST 20 2024 10:00A M Aden Husain, DNP, NUCLEAR WASTE PROCESS OPERATOR, TRANSCRIBING MACHINE MECHANIC-C Not available Not available Not available Lab liver fibrosis score, calculate d by ELF, serum or plasma 2024 025 [facility], [address], [address], [place], [address], 04/28/2025 07:13:31 lipid panel, serum 2024 025 [facility], [address], [address], [place], [address], 04/28/2025 07:13:30 hepatic function panel, serum 2024 025 [facility]AC [facility], [address], [address], [place], [address], 04/28/2025 07:13:30 CBC w/ auto diff 2024 025 [facility], [address], [address], [place], [address], 12/15/2024 14:37:20 CMP, serum or plasma 2024 025 [facility]AC [facility], [address], [address], [place], [address], 12/15/2024 14:37:21 TSH + free T4, serum 2024 025 [facility]AC [facility], [address], [address], [place], [address], 12/15/2024 14:37:19 HbA1c (hemoglob in A1c), blood 2024 025 [facility], [address], [address], [place], [address], 12/15/2024 14:37:24 lipid panel, serum 2024 025 [facility], [address], [address], [place], [address], 12/15/2024 14:37:22 copper, serum or plasma 2024 025 [facility], [address], [address], [place], [address], 12/15/2024 14:37:29 selenium, quantitat silvino, blood 2024 025 [facility], [address], [address], [place], [address], 12/15/2024 14:37:31 zinc, serum or plasma 2024 025 [facility], [address], [address], [place], [address], 12/15/2024 14:37:30 iron + TIBC + ferritin, serum 2024 025 [facility], [address], [address], [place], [address], 12/15/2024 14:37:18 folate, serum 2024 025 [facility], [address], [address], [place], [address], 12/15/2024 14:37:24 vitamin E, serum 2024 025 ISAAC [facility], [address], [address], [place], [address], 12/15/2024 14:37:23 vitamin A (retinol) , serum 2024 025 [facility], [address], [address], [place], [address], 12/15/2024 14:37:25 prealbumi n, serum 2024 025 [facility], [address], [address], [place], [address], 12/15/2024 14:37:30 thiamine, QN, blood 2024 025 [facility], [address], [address], [place], [address], 12/15/2024 14:37:27 methylmal jareth, QN, serum or plasma 2024 025 [facility], [address], [address], [place], [address], 12/15/2024 14:37:28 vitamin D, 25-hydrox y, total, serum 2024 025 [facility], [address], [address], [place], [address], 12/15/2024 14:37:26 CMP, serum or plasma 2023 [email or web address] [place] [address] (Registration ), [address] , [place], [address], 07/07/2024 10:22:50 CBC 2023 [email or web address] [place] [address] (Registration ), [address] , [place], [address], 07/07/2024 10:22:50 PT/INR [email or web address] (Registration ), [address] , [place], [address], 07/07/2024 10:22:50 liver fibrosis score, calculate d by ELF, serum or plasma 2023 [email or web address] [place] [address] (Registration ), [address] , [place], [address], 07/07/2024 10:22:50 selenium, quantitat silvino, blood 2023 024 [email or web address] [facility], [address], [address], [place], [address], 07/06/2024 13:36:28 CMP, serum or plasma 2023 024 [email or web address] [facility], [address], [address], [place], [address], 07/06/2024 13:36:30 CBC w/ auto diff 2023 024 [facility], [address], [address], [place], [address], 07/06/2024 13:36:29 HbA1c (hemoglob in A1c), blood 2023 [email or web address] [facility], [address], [address], [place], [address], 07/06/2024 13:36:30 TSH + free T4, serum 2023 [email or web address] [facility], [address], [address], [place], [address], 07/06/2024 13:36:30 lipid panel, serum 2023 [email or web address] [facility], [address], [address], [place], [address], 07/06/2024 13:36:30 copper, serum or plasma 2023 [email or web address] [facility], [address], [address], [place], [address], 07/06/2024 13:36:28 zinc, serum or plasma 2023 [facility], [address], [address], [place], [address], 07/06/2024 13:36:28 iron + TIBC + ferritin, serum 2023 [email or web address] [facility], [address], [address], [place], [address], 07/06/2024 13:36:28 folate, serum 2023 [facility], [address], [address], [place], [address], 07/06/2024 13:36:29 vitamin E, serum 2023 024 [email or web address] [facility], [address], [address], [place], [address], 07/06/2024 13:36:29 vitamin A (retinol) , serum 2023 024 [facility], [address], [address], [place], [address], 07/06/2024 13:36:29 prealbumi n, serum 2023 024 [facility], [address], [address], [place], [address], 07/06/2024 13:36:29 thiamine, QN, blood 2023 024 [email or web address] [facility], [address], [address], [place], [address], 07/06/2024 13:36:29 methylmal jareth, QN, serum or plasma 2023 024 [email or web address] [facility], [address], [address], [place], [address], 07/06/2024 13:36:29 vitamin D, 25-hydrox y, total, serum 2023 024 [email or web address] [facility], [address], [address], [place], [address], 07/06/2024 13:36:30 Referral None recorded. Procedures biopsy, liver (PROC) - CT or US guidance, depending on radiologi st's preferenc e 2024 025 [email or web address] 3 [facility], [address] [facility], [place], [address], 02/01/2025 09:18:22 Surgeries None recorded. Imaging None recorded. Medication Orders Ibsrela 50 mg tablet 2024 025 [facility], [address] [place] [address] [address], [place] Schulz, [id number], 04/24/2025 11:10:06 Motegrity 2 mg tablet 2023 024 [email or web address] [facility], [address] [place] [address], [facility] [address] [place], [id number], 12/08/2024 08:57:40 Patient TargetsNo targets recorded. Patient InstructionsNo instructions recorded. Reason for Referral None Reported. Results Created Date Observation Date Name Description Value Unit Range Abnormal Flag Note LastModifiedBy Organization Detail LastModifiedTime 07/15/1907/15/2024 CBC NO DIFF (HEMO GRAM) WBC 5.9 K/uL 4.0-10 .5 Not Available [facility] ([facility]) [address] [place], [address], 07/15/2024 09:51:52 07/15/1907/15/2024 CBC NO DIFF (HEMO GRAM) RBC 5.0 M/mm3 4.2-6. 4 Not Available [facility] ([facility]) [address] [facility], [place], [address], 07/15/2024 09:51:52 07/15/1907/15/2024 CBC NO DIFF (HEMO GRAM) HGB 14.8 gm/dL 12.5-1 6.0 Not Available [facility] ([facility]) [address] [place], [address], 07/15/2024 09:51:52 07/15/19 25 07/15/2024 CBC NO DIFF (HEMO GRAM) HCT 44.8 % 37.0-4 7.0 Not Available [facility] ([facility]) [address] [place], [address], 07/15/2024 09:51:52 01/04/20 25 07/15/2024 CBC NO DIFF (HEMO GRAM) MCV 89.4 fL 78-100 Not Available [facility] ([facility]) [address], [place], [address], 07/15/2024 09:51:52 07/15/19 25 07/15/2024 CBC NO DIFF (HEMO GRAM) MCH 29.5 pg 27-31 Not Available [facility] ([facility]) [address], [place], [address], 07/15/2024 09:51:52 07/15/19 25 07/15/2024 CBC NO DIFF (HEMO GRAM) MCHC 33.0 g/dL 32-36 Not Available [facility] ([facility]) [address], [place], [address], 07/15/2024 09:51:52 07/15/19 25 07/15/2024 CBC NO DIFF (HEMO GRAM) RDW 14.9 % 11.5-1 4.0 high Not Available [facility] ([facility]) [address] [facility], [place], [address], 07/15/2024 09:51:52 07/15/19 25 07/15/2024 CBC NO DIFF (HEMO GRAM) platelet count 233 K/uL 150-45 0 Not Available [facility] ([facility]) [address] [facility], [place], [address], 07/15/2024 09:51:52 07/15/19 25 07/15/2024 CBC NO DIFF (HEMO GRAM) MPV 8.9 fL 6-9.5 Not Available [facility] ([facility]) [address], [place], [address], 07/15/2024 09:51:52 07/15/19 25 07/15/2024 CBC NO DIFF (HEMO GRAM) manual differential NO Not Available [facility] ([facility]) [address] , [place], [address], 07/15/2024 09:51:52 07/15/19 25 07/15/2024 PT (PROT HROMB IN TIME) W INR prothrombin time 10.4 secon ds 9.3-11 .4 Not Available [facility] ([facility]) [address] , [place], [address], 07/15/2024 10:13:39 07/15/19 25 07/15/2024 PT (PROT [...] Mecha nical Heart Valve s Not Available [facility] ([facility]) [address] , [place], [address], 07/15/2024 10:13:39 07/15/19 25 07/15/2024 COMP METAB OLIC PANEL sodium 136 mmol/ L 136-14 5 Not Available [facility] ([facility]) [address] , [place], [address], 07/15/2024 10:18:53 07/15/19 25 07/15/2024 COMP METAB OLIC PANEL potassium 4.6 mmol/ L 3.6-5. 0 Not Available [facility] ([facility]) [address] , [place], [address], 07/15/2024 10:18:53 07/15/19 25 07/15/2024 COMP METAB OLIC PANEL chloride 101 mmol/ L 98-107 Not Available [facility] ([facility]) [address], [place], [address], 07/15/2024 10:18:53 07/15/19 25 07/15/2024 COMP METAB OLIC PANEL carbon dioxide 29.4 mmol/ L 21.0-3 2.0 Not Available [facility] ([facility]) [address] [facility], [place], [address], 07/15/2024 10:18:53 07/15/19 25 07/15/2024 COMP METAB OLIC PANEL anion gap 10.2 Not Available [facility] ([facility]) [address] [facility], [place], [address], 07/15/2024 10:18:53 07/15/19 25 07/15/2024 COMP METAB OLIC PANEL glucose 98 mg/dL 70-120 Not Available [facility] ([facility]) [address] [facility], [place], [address], 07/15/2024 10:18:53 07/15/19 25 07/15/2024 COMP METAB OLIC PANEL BUN 31 mg/dL 7-18 high Not Available [facility] ([facility]) [address] [facility], [place], [address], 07/15/2024 10:18:53 07/15/19 25 07/15/2024 COMP METAB OLIC PANEL creatinine 0.9 mg/dL 0.6-1. 3 Not Available [facility] ([facility]) [address] [place], [address], 07/15/2024 10:18:53 07/15/19 25 07/15/2024 COMP METAB [...] romero ing kiney funct ion. Not Available [facility] ([facility]) [address] , [place], [address], 07/15/2024 10:18:53 07/15/19 25 07/15/2024 COMP METAB OLIC PANEL total protein 7.4 g/dL 6.4-8. 2 Not Available [facility] ([facility]) [address], [place], [address], 07/15/2024 10:18:53 07/15/19 25 07/15/2024 COMP METAB OLIC PANEL albumin 3.9 g/dL 3.4-5. 0 Not Available [facility] ([facility]) [address], [place], [address], 07/15/2024 10:18:53 07/15/19 25 07/15/2024 COMP METAB OLIC PANEL globulin 3.5 Not Available [facility] ([facility]) [address], [place], [address], 07/15/2024 10:18:53 07/15/19 25 07/15/2024 COMP METAB OLIC PANEL alb/glob ratio 1.1 0.7-2 Not Available [facility] ([facility]) [address] , [place], [address], 07/15/2024 10:18:53 07/15/19 25 07/15/2024 COMP METAB OLIC PANEL calcium 9.4 mg/dL 8.5-10 .5 Not Available [facility] ([facility]) [address], [place], [address], 07/15/2024 10:18:53 07/15/19 25 07/15/2024 COMP METAB OLIC PANEL bilirubin total 0.60 mg/dL 0.10-1 .00 Not Available [facility] ([facility]) [address] , [place], [address], 07/15/2024 10:18:53 07/15/19 25 07/15/2024 COMP METAB OLIC PANEL AST (SGOT) 38 U/L 0-37 high Not Available [facility] ([facility]) [address], [place], [address], 07/15/2024 10:18:53 07/15/19 25 07/15/2024 COMP METAB OLIC PANEL ALT (SGPT) 66 U/L 0-65 high Not Available [facility] ([facility]) [address], [place], [address], 07/15/2024 10:18:53 07/15/19 25 07/15/2024 COMP METAB OLIC PANEL alk phosphatase 83 U/L 46-116 Not Available [facility] ([facility]) [address], [place], [address], 07/15/2024 10:18:53 07/15/19 25 07/18/2024 CISNEROS FIBRO SURE PLUS alpha 2-macroglobu oralia, qn 266 mg/dL 110-27 6 Not Available [facility] ([facility]) [address], [place], [address], 07/18/2024 06:10:53 07/15/19 25 07/18/2024 CISNEROS FIBRO SURE PLUS haptoglobin 88 mg/dL 37-355 Not Available [facility] ([facility]) [address], [place], [address], 07/18/2024 06:10:53 07/15/19 25 07/18/2024 CISNEROS FIBRO SURE PLUS apolipoprote in A-1 167 mg/dL 116-20 9 Not Available [facility] ([facility]) [address], [place], [address], 07/18/2024 06:10:53 07/15/19 25 07/18/2024 CISNEROS FIBRO SURE PLUS bilirubin, total 0.4 mg/dL 0.0-1. 2 Not Available [facility] ([facility]) [address] [place], [address], 07/18/2024 06:10:53 07/15/19 25 07/18/2024 CISNEROS FIBRO SURE PLUS GGT 32 IU/L 0-60 Not Available [facility] ([facility]) [address] [place], [address], 07/18/2024 06:10:53 07/15/19 25 07/18/2024 CISNEROS FIBRO SURE PLUS ALT (SGPT) p5p 63 IU/L 0-40 high Not Available [facility] ([facility]) [address] , [place], [address], 07/18/2024 06:10:53 07/15/19 25 07/18/2024 CISNEROS FIBRO SURE PLUS AST (SGOT) p5p 42 IU/L 0-40 high Not Available [facility] ([facility]) [address] [place], [address], 07/18/2024 06:10:53 07/15/19 25 07/18/2024 CISNEROS FIBRO SURE PLUS cholesterol, total 122 mg/dL 100-19 9 Not Available [facility] ([facility]) [address] [place], [address], 07/18/2024 06:10:53 07/15/19 25 07/18/2024 CISNEROS FIBRO SURE PLUS glucose, serum 102 mg/dL 70-99 high Not Available [facility] ([facility]) [address] [place], [address], 07/18/2024 06:10:53 07/15/19 25 07/18/2024 CISNEROS FIBRO SURE PLUS triglyceride s 99 mg/dL 0-149 Not Available [facility] ([facility]) [address] [place], [address], 07/18/2024 06:10:53 07/15/19 25 07/18/2024 CISNEROS FIBRO [...] Stage F4 - Cirrh osis Not Available [facility] ([facility]) [address] [place], [address], 07/18/2024 06:10:53 07/15/19 25 07/18/2024 CISNEROS FIBRO SURE PLUS fibrosis stage F1-F2 Not Available [facility] ([facility]) [address] [place], [address], 07/18/2024 06:10:53 07/15/19 25 07/18/2024 CISNEROS FIBRO SURE PLUS fibrosis score 0.34 0.00-0 .21 high Not Available [facility] ([facility]) [address] [place], [address], 07/18/2024 06:10:53 07/15/19 25 07/18/2024 CISNEROS FIBRO SURE PLUS steatosis score 0.48 0.00-0 .40 high Not Available [facility] ([facility]) [address] [place], [address], 07/18/2024 06:10:53 07/15/19 25 07/18/2024 CISNEROS FIBRO SURE PLUS steatosis grade Commen t S1 - Mild Steat osis (But Clini zuleyka Signi fican t) (5- 33%) Not Available [facility] ([facility]) [address] [place], [address], 07/18/2024 06:10:53 07/15/19 25 07/18/2024 CISNEROS FIBRO SURE PLUS steatosis scoring Commen t . <=0.4 0 = S0 - No Steat osis (<5%) 0.40 - 0.55 = S1 - Mild Steat osis (but Clini zuleyka Signi fican t) (5-33 %) >0.55 = S2S3- Moder ate to Sever e Steat osis (Clin icall y Signi fican t) (34-1 00%) Not Available [facility] ([facility]) [address], [place], [address], 07/18/2024 06:10:53 07/15/19 25 07/18/2024 CISNEROS FIBRO SURE PLUS cisneros scoring Commen t . <=0.2 5 = N0 - No CISNEROS/ MASH 0.25 - 0.50 = N1 - Mild CISNEROS/ MASH 0.50 - 0.75 = N2 - Moder ate CISNEROS/ MASH >0.75 = N3 - Sever e CISNEROS/ MASH Not Available [facility] ([facility]) [address], [place], [address], 07/18/2024 06:10:53 07/15/1907/18/2024 CISNEROS FIBRO SURE PLUS cisneros grade Commen t N3 - Sever e CISNEROS Not Available [facility] ([facility]) [address], [place], [address], 07/18/2024 06:10:53 07/15/19 25 07/18/2024 CISNEROS FIBRO SURE PLUS cisneros score 0.79 0.00-0 .25 high Not Available [facility] ([facility]) [address] , [place], [address], 07/18/2024 06:10:53 07/15/19 25 07/18/2024 CISNEROS FIBRO [...] ction s of fibro sis. Not Available [facility] ([facility]) [address], [place], [address], 07/18/2024 06:10:53 07/15/19 25 07/18/2024 CISNEROS FIBRO SURE PLUS methodology: Commen t . The sachi inessa teste d are perfo rmed by Fibro Sure- Speci fic metho ds. Not inten ded for use with other diagn ostic consi derat ions. Not Available [facility] ([facility]) [address], [place], [address], 07/18/2024 06:10:53 07/15/19 25 07/18/2024 CISNEROS FIBRO SURE PLUS interpretati on: Commen t . Quant itati ve resul ts of 10 bioch emica ls in combi natio n with age and gende r, are sachi zed using a compu tatio nal algor ithm to provi de a quant itati ve surro gate marke r (0.0- 1.0) of liver fibro sis ([place] vir F0-F4 ), hepat ic steat osis [...] fican t NAFLD /MASL D fibro sis ([place] vir F2-F4 ) and 11% had cirrh [...] ficit y of 71%. 3 Not Available [facility] ([facility]) [address] , [place], [address], 07/18/2024 06:10:53 07/15/19 25 07/18/2024 CISNEROS FIBRO [...] conta ct custo lester servi ce at [phone]. . Refer ences : . 1. Vito menodza V. et al. Diagn ostic Value of [...] rmed at: - [facility] [address] [facility] [place] [address] Lab Direc tor: Massiel ross MD, Phone : [phone] Not Available [facility] ([facility]) [address] [facility], [place], [address], 07/18/2024 06:10:53 12/09/19 25 12/09/2024 FE+TI BC+FE R iron bind.cap.(TI BC) 336 ug/dL 250-45 0 normal Not Available [facility] ([facility]) [address] [place], [address], 12/15/2024 14:37:18 12/09/19 25 12/09/2024 FE+TI BC+FE R UIBC 214 ug/dL 118-36 9 normal Not Available [facility] ([facility]) [address] [place], [address], 12/15/2024 14:37:18 12/09/19 25 12/09/2024 FE+TI BC+FE R iron 122 ug/dL 27-139 normal Not Available [facility] ([facility]) [address] [place], [address], 12/15/2024 14:37:18 12/09/19 25 12/09/2024 FE+TI BC+FE R iron saturation 36 % 15-55 normal Not Available [facility] ([facility]) [address] [place], [address], 12/15/2024 14:37:18 12/09/19 25 12/09/2024 FE+TI BC+FE R ferritin 31 NG/mL 15-150 normal Not Available [facility] ([facility]) [address] [place], [address], 12/15/2024 14:37:18 12/09/1912/09/2024 TSH+F REE T4 TSH 2.100 uIU/m L 0.450- 4.500 normal Not Available [facility] ([facility]) [address] [place], [address], 12/15/2024 14:37:19 12/09/19 25 12/09/2024 TSH+F REE T4 T4,free(dire ct) 0.83 NG/dL 0.82-1 .77 normal Not Available [facility] ([facility]) [address] [place], [address], 12/15/2024 14:37:19 12/09/19 25 12/08/2024 CBC WITH DIFFE RENTI AL/PL ATELE T WBC 6.1 x10e3 /uL 3.4-10 .8 normal Not Available [facility] ([facility]) [address] [place], [address], 12/15/2024 14:37:20 12/09/19 25 12/08/2024 CBC WITH DIFFE RENTI AL/PL ATELE T RBC 4.92 x10e6 /uL 3.77-5 .28 normal Not Available [facility] ([facility]) [address] [place], [address], 12/15/2024 14:37:20 12/09/19 25 12/08/2024 CBC WITH DIFFE RENTI AL/PL ATELE T hemoglobin 14.9 g/dL 11.1-1 5.9 normal Not Available [facility] ([facility]) [address] [facility], [place], [address], 12/15/2024 14:37:20 12/09/19 25 12/08/2024 CBC WITH DIFFE RENTI AL/PL ATELE T hematocrit 45.6 % 34.0-4 6.6 normal Not Available [facility] ([facility]) [address] [facility], [place], [address], 12/15/2024 14:37:20 12/09/19 25 12/08/2024 CBC WITH DIFFE RENTI AL/PL ATELE T MCV 93 fL 79-97 normal Not Available [facility] ([facility]) [address] [facility], [place], [address], 12/15/2024 14:37:20 12/09/19 25 12/08/2024 CBC WITH DIFFE RENTI AL/PL ATELE T MCH 30.3 pg 26.6-3 3.0 normal Not Available [facility] ([facility]) [address] [facility], [place], [address], 12/15/2024 14:37:20 12/09/19 25 12/08/2024 CBC WITH DIFFE RENTI AL/PL ATELE T MCHC 32.7 g/dL 31.5-3 5.7 normal Not Available [facility] ([facility]) [address] [facility], [place], [address], 12/15/2024 14:37:20 12/09/19 25 12/08/2024 CBC WITH DIFFE RENTI AL/PL ATELE T RDW 12.5 % 11.7-1 5.4 Not Available [facility] ([facility]) [address] [place], [address], 12/15/2024 14:37:20 12/09/19 25 12/08/2024 CBC WITH DIFFE RENTI AL/PL ATELE T platelets 234 x10e3 /uL 150-45 0 normal Not Available [facility] ([facility]) [address] [facility], [place], [address], 12/15/2024 14:37:20 12/09/19 25 12/08/2024 CBC WITH DIFFE RENTI AL/PL ATELE T neutrophils 56 % not estab. normal Not Available [facility] ([facility]) [address] [facility], [place], [address], 12/15/2024 14:37:20 12/09/19 25 12/08/2024 CBC WITH DIFFE RENTI AL/PL ATELE T lymphs 28 % not estab. normal Not Available [facility] ([facility]) [address] [facility], [place], [address], 12/15/2024 14:37:20 12/09/19 25 12/08/2024 CBC WITH DIFFE RENTI AL/PL ATELE T monocytes 10 % not estab. normal Not Available [facility] ([facility]) [address] [facility], [place], [address], 12/15/2024 14:37:20 12/09/19 25 12/08/2024 CBC WITH DIFFE RENTI AL/PL ATELE T eos 5 % not estab. normal Not Available [facility] ([facility]) [address] [facility], [place], [address], 12/15/2024 14:37:20 12/09/19 25 12/08/2024 CBC WITH DIFFE RENTI AL/PL ATELE T basos 1 % not estab. normal Not Available [facility] ([facility]) [address] [facility], [place], [address], 12/15/2024 14:37:20 12/09/19 25 12/08/2024 CBC WITH DIFFE RENTI AL/PL ATELE T immature cells [employer] Not Available [facility] ([facility]) [address] [place], [address], 12/15/2024 14:37:20 12/09/19 25 12/08/2024 CBC WITH DIFFE RENTI AL/PL ATELE T neutrophils (absolute) 3.5 x10e3 /uL 1.4-7. 0 normal Not Available [facility] ([facility]) [address] [place], [address], 12/15/2024 14:37:20 12/09/19 25 12/08/2024 CBC WITH DIFFE RENTI AL/PL ATELE T lymphs (absolute) 1.7 x10e3 /uL 0.7-3. 1 normal Not Available [facility] ([facility]) [address] [place], [address], 12/15/2024 14:37:20 12/09/19 25 12/08/2024 CBC WITH DIFFE RENTI AL/PL ATELE T monocytes(ab solute) 0.6 x10e3 /uL 0.1-0. 9 normal Not Available [facility] ([facility]) [address] [place], [address], 12/15/2024 14:37:20 12/09/19 25 12/08/2024 CBC WITH DIFFE RENTI AL/PL ATELE T eos (absolute) 0.3 x10e3 /uL 0.0-0. 4 normal Not Available [facility] ([facility]) [address] [place], [address], 12/15/2024 14:37:20 12/09/19 25 12/08/2024 CBC WITH DIFFE RENTI AL/PL ATELE T baso (absolute) 0.1 x10e3 /uL 0.0-0. 2 normal Not Available [facility] ([facility]) [address] [place], [address], 12/15/2024 14:37:20 12/09/19 25 12/08/2024 CBC WITH DIFFE RENTI AL/PL ATELE T immature granulocytes 0 % not estab. Not Available [facility] ([facility]) [address] [facility], [place], [address], 12/15/2024 14:37:20 12/09/19 25 12/08/2024 CBC WITH DIFFE RENTI AL/PL ATELE T immature grans (abs) 0.0 x10e3 /uL 0.0-0. 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 METAB OLIC PANEL (14) glucose 91 mg/dL 70-99 normal Not Available [facility] ([facility]) [address] [facility], [place], [address], 12/15/2024 14:37:21 12/09/19 25 12/09/2024 COMP. METAB OLIC PANEL (14) BUN 33 mg/dL 8-27 above high normal Not Available [facility] ([facility]) [address] [facility], [place], [address], 12/15/2024 14:37:21 12/09/19 25 12/09/2024 COMP. METAB OLIC PANEL (14) creatinine 0.86 mg/dL 0.57-1 .00 normal Not Available [facility] ([facility]) [address] [place], [address], 12/15/2024 14:37:21 12/09/19 25 12/09/2024 COMP. METAB OLIC PANEL (14) eGFR 74 mL/mi n/1.7 3 >59 normal Not Available [facility] ([place] [facility]) [address] [place], [address], 12/15/2024 14:37:21 12/09/19 25 12/09/2024 COMP. METAB OLIC PANEL (14) BUN/creatini ne ratio 38 12-28 above high normal Not Available [facility] ([facility]) [address] [place], [address], 12/15/2024 14:37:21 12/09/19 25 12/09/2024 COMP. METAB OLIC PANEL (14) sodium 139 mmol/ L 134-14 4 normal Not Available [facility] ([place] [facility]) [address] [place], [address], 12/15/2024 14:37:21 12/09/19 25 12/09/2024 COMP. METAB OLIC PANEL (14) potassium 4.4 mmol/ L 3.5-5. 2 normal Not Available [facility] ([place] [facility]) [address] [facility] [place], [address], 12/15/2024 14:37:21 12/09/19 25 12/09/2024 COMP. METAB OLIC PANEL (14) chloride 104 mmol/ L 96-106 normal Not Available [facility] ([place] [facility]) [address] [facility] [place], [address], 12/15/2024 14:37:21 12/09/19 25 12/09/2024 COMP. METAB OLIC PANEL (14) carbon dioxide, total 21 mmol/ L 20-29 normal Not Available [facility] ([place] [facility]) [address] [facility], [place], [address], 12/15/2024 14:37:21 12/09/19 25 12/09/2024 COMP. METAB OLIC PANEL (14) calcium 9.4 mg/dL 8.7-10 .3 normal Not Available [facility] ([facility]) [address] [place], [address], 12/15/2024 14:37:21 12/09/19 25 12/09/2024 COMP. METAB OLIC PANEL (14) protein, total 6.5 g/dL 6.0-8. 5 normal Not Available [facility] ([facility]) [address] [place], [address], 12/15/2024 14:37:21 12/09/19 25 12/09/2024 COMP. METAB OLIC PANEL (14) albumin 4.2 g/dL 3.9-4. 9 normal Not Available [facility] ([facility]) [address] [place], [address], 12/15/2024 14:37:21 12/09/19 25 12/09/2024 COMP. METAB OLIC PANEL (14) globulin, total 2.3 g/dL 1.5-4. 5 Not Available [facility] ([facility] [address] [place], [address], 12/15/2024 14:37:21 12/09/19 25 12/09/2024 COMP. METAB OLIC PANEL (14) bilirubin, total 0.4 mg/dL 0.0-1. 2 normal Not Available [facility] ([facility]) [address] [place], [address], 12/15/2024 14:37:21 12/09/19 25 12/09/2024 COMP. METAB OLIC PANEL (14) alkaline phosphatase 87 IU/L 44-121 normal Not Available [facility] ([facility]) [address] [place], [address], 12/15/2024 14:37:21 12/09/19 25 12/09/2024 COMP. METAB OLIC PANEL (14) AST (SGOT) 62 IU/L 0-40 above high normal Not Available [facility] ([facility]) [address] [place], [address], 12/15/2024 14:37:21 12/09/19 25 12/09/2024 COMP. METAB OLIC PANEL (14) ALT (SGPT) 89 IU/L 0-32 above high normal Not Available [facility] ([facility]) [address] [place], [address], 12/15/2024 14:37:21 12/09/19 25 12/09/2024 LIPID PANEL cholesterol, total 117 mg/dL 100-19 9 normal Not Available [facility] ([facility]) [address] [place], [address], 12/15/2024 14:37:22 12/09/19 25 12/09/2024 LIPID PANEL triglyceride s 69 mg/dL 0-149 normal Not Available [facility] ([facility]) [address] [place], [address], 12/15/2024 14:37:22 12/09/19 25 12/09/2024 LIPID PANEL HDL cholesterol 59 mg/dL >39 normal Not Available [facility] ([facility]) [address] [place], [address], 12/15/2024 14:37:22 12/09/19 25 12/09/2024 LIPID PANEL VLDL cholesterol apurva 14 mg/dL 5-40 Not Available [facility] ([facility]) [address] [place], [address], 12/15/2024 14:37:22 12/09/19 25 12/09/2024 LIPID PANEL LDL chol calc ([facility]) 44 mg/dL 0-99 Not Available [facility] ([facility]) [address] [facility], [place], [address], 12/15/2024 14:37:22 12/09/1912/09/2024 LIPID PANEL LDL calc comment: TRANSCRIBING MACHINE MECHANIC Not Available [facility] ([facility]) [address] [facility], [place], [address], 12/15/2024 14:37:22 12/09/19 25 12/15/2024 VITAM IN E vitamin E(alpha tocopherol) 13.1 mg/L 9.0-29 .0 Not Available [facility] ([facility]) [address] [facility], [place], [address], 12/15/2024 14:37:23 12/09/19 25 12/15/2024 VITAM IN [...] in E defic ient. Not Available [facility] ([facility]) [address] [facility], [place], [address], 12/15/2024 14:37:23 12/09/19 25 12/09/2024 HEMOG LOBIN A1C hemoglobin A1C 5.5 % 4.8-5. 6 normal Predi abete s: 5.7 - 6.4 Diabe inessa: >6.4 Glyce amauri contr ol for adult s with diabe inessa: <7.0 Not Available [facility] ([facility]) [address] [facility], [place], [address], 12/15/2024 14:37:24 12/09/19 25 12/09/2024 FOLAT E (FOLI C ACID) , SERUM folate (folic acid), serum >20.0 NG/mL >3.0 A serum folat e yanet ntrat ion of less than 3.1 ng/mL is consi dered to repre sent clini apurva defic iency . Not Available [facility] ([facility]) [address] [facility], [place], [address], 12/15/2024 14:37:24 12/09/19 25 12/15/2024 VITAM IN [...] Drug Admin istra tion. Not Available [facility] ([facility]) [address] [facility], [place], [address], 12/15/2024 14:37:25 12/09/19 25 12/09/2024 VITAM IN [...] Joanna roque DC: [facility] Press . 2. Junie lugo MF, Garrick wallace [place], Valeria off-F errar i TURCIOS, et al. Evalu ation , treat ment, and preve ntion of vitam in D defic iency : an Endoc rine Socie ty clini apurva pract ice guide line. JCEM. 2010; 96(7) :1911 -30. Not Available [facility] ([facility]) [address] [place], [address], 12/15/2024 14:37:26 12/09/19 25 12/14/2024 VITAM IN B1 (THIA MINE) , BLOOD vit. B1, whole blood 324.9 nmol/ L 66.5-2 00.0 above high normal Not Available [facility] ([facility]) [address] [place], [address], 12/15/2024 14:37:27 12/09/19 25 12/13/2024 METHY LMALO ALICIA ACID, SERUM methylmaloni c acid, serum 278 nmol/ L 0-378 Not Available [facility] ([facility]) [address] [place], [address], 12/15/2024 14:37:28 12/09/19 25 12/11/2024 COPPE R, SERUM OR PLASM A copper, serum or plasma 106 ug/dL 80-158 Detec tion Limit = 5 Not Available [facility] ([facility]) [address] [place], [address], 12/15/2024 14:37:29 12/09/19 25 12/11/2024 ZINC, PLASM A OR SERUM zinc, plasma or serum 75 ug/dL 44-115 normal Detec tion Limit = 5 Not Available [facility] ([facility]) [address] [place], [address], 12/15/2024 14:37:30 12/09/19 25 12/09/2024 PREAL BUMIN prealbumin 22 mg/dL 10-36 Not Available [facility] ([place] [facility]) [address] [place], [address], 12/15/2024 14:37:30 12/09/19 25 12/12/2024 SELEN IUM, BLOOD selenium, blood 155 ug/L 100-34 0 Detec tion Limit = 10 Not Available [facility] ([facility]) [address], [place], [address], 12/15/2024 14:37:31 01/19/20 25 01/18/2025 US biops y liver [facility] [address] [place] [address] Phone: Fax: Name: WENDY GOLDMAN Exam Date: : [birth year] 60 Age 69 years Gender : F Access ion: [id number] Physic mani: ERNESTO AMEZCUA Facili ty: [facility] Facili ty HSV: Outpat ient Exam: US BIOPSY LIVER US GUIDED LIVER BIOPSY REASON FOR STUDY: metabo lic dysfun ction- associ ated steato hepati tis, nonalc ohol PATIEN T DEMOGR APHICS :69 years, Female COMPAR AUGUSTINE: No existi ng releva nt imagin g study correhalley rogers to the same anatom [facility] is availa ble. DATE OF SERVIC [...] Thank you for referr WENDY Turpin to [facility]. Legall y authen ticate d by LUANA JEROME 01-18 12:45: 20 CC'ed Logic: Orderi ng Provid er: CARLA GOVEA Attend ing Provid er: CARLA GOVEA Referr ing Provid er: CARLA GOVEA Admitt ing Provid er: CARLA GOVEA [email or web address] [facility] [address] [place] [address], [place], [address], 01/19/2025 13:40:21 01/30/20 25 01/18/2025 [facility] [address] [place] [address] Phone: Fax: Name: WENDY GOLDMAN Exam Date: 025 : [birth year] Age 69 years Gender : F Access ion: [id number] Physic mani: ERNESTO AMEZCUA Facili ty: [facility] Facili ty HSV: Outpat ient Exam: [...] were collec serenity and sent to [facility] for furthe r analys [...] Thank you for [facility] Legall y authen ticate d by LUANA JEROME 2024-0 01-29 09:12: 37 CC'ed Logic: Orderi ng Provid er: CARLA GOVEA Attend ing Provid er: CARLA GOVEA Referr ing Provid er: CARLA GOVEA Admitt ing Provid er: CARLA GOVEA [email or web address] [facility] [address] , [place], [address], 02/27/2025 16:16:53 Result Notes None recorded. Problems Name Problem SNOMED Code Status Onset Date Resolution Date Notes Provider Name and Address Organization Details Recorded Time Chronic idiopathi c constipat ion 24037669 Active 2021 Ernesto Amezcua PA-C [address], [place], [address] , [place] [facility] - [place] & [place] 5 10:55:11 Gastroeso phageal reflux disease 678590955 Active 2021 Not Available [facility] 3 16:06:44 Diarrhea 83016918 Active 2021 Not Available [facility] 3 16:06:44 Hypokalem ia 86162276 Active 2021 Not Available [facility] 3 16:06:44 Abdominal pain 91512036 Active 2021 Not Available [facility] 3 16:06:44 Myocardia l infarctio n 82856060 Completed 202103/25/2022 Azeb Quesada null, [place] [facility] & [place] 2 14:37:03 Fibromyal dominique 901568500 Active 2021 Not Available [facility] 3 16:06:44 Mild dementia 47378214248 4108 Active 2021 Not Available [facility] 3 16:06:44 Chronic obstructi ve pulmonary disease 47929982 Active 2021 Not Available [facility] 3 16:06:44 Hiatal hernia 09401503 Completed 202103/25/2022 Azeb Quesada null, [place] [facility] & [place] 2 14:38:57 Chronic depressio n 493388075 Active 2021 Not Available [facility] 3 16:06:44 Obesity 414990665 Active 2021 Ernesto Amezcua PA-C [address] , [place], [address] , [place] [facility] - [place] & [place] 2 14:51:36 Hypertens silvino disorder 66345625 Active 2022 Not Available [facility] 3 16:06:44 Dyslipide franc 819746407 Active 2022 Not Available [facility] 3 16:06:44 Morbid obesity 113908378 Active 2022 Not Available [facility] 3 16:06:44 Dizziness 070368899 Active 2022 Not Available [facility] 3 16:06:44 Intention al weight loss 420619818 Active 2022 Not Available [facility] 3 16:06:44 Constipat ion 56741172 Active 2022 Ernesto Amezcua PA-C [address], [place], [place], [address] [place] [address] , [place] [facility] - [place] & [place] 3 15:41:42 Overweigh t 779940342 Active 2023 Aden Husain DNP, NUCLEAR WASTE PROCESS OPERATOR, TRANSCRIBING MACHINE MECHANIC-C [address], [place], [place], [address] [place] [address] , [place] [facility] [place] & [place] 4 09:57:50 Fatigue 44891023 Active 2023 Aden Husain DNP, NUCLEAR WASTE PROCESS OPERATOR, TRANSCRIBING MACHINE MECHANICJevonC [address], [place], [place], [address] [place] [address] , [place] [facility] [place] & [place] 4 10:00:39 Liver enzymes level above reference range 440606758 Active 2023 Ernesto Amezcua PA-C [address], [place], [address] , [place] [facility] - [place] & [employer] 5 10:55:11 Low back pain 119212937 Active 2023 Aden Husain DNP, NUCLEAR WASTE PROCESS OPERATOR, TRANSCRIBING MACHINE MECHANIC-C [address], [place], [address] , [place] [facility] [place] & [employer] 4 15:56:35 Irritable bowel syndrome character ized by constipat ion 390131330 Active 2023 Ernesto Amezcua PA-C [address], [place], [address] , [place] [facility] & [employer] 5 11:07:41 Metabolic dysfuncti on-associ ated steatohep atitis 649817545 Active 2023 Ernesto Amezcua PA-C [address], [place], [address] , [place] [facility] [facility] & [place] 5 14:30:35 Gastroeso phageal reflux disease without esophagit is 996955945 Active 2023 Ernesto Amezcua PA-C [address], [place], [address] , [place] [facility] [facility] & [place] 5 10:55:11 Hyperlipi demia 64503901 Active 2024 Ernesto Amezcua PA-C [address], [place], [address] , [place] [facility] [facility] & [place] 5 13:05:05 Irritable bowel syndrome 54768135 Active 2024 Palak [facility], [place] - [facility] & [place] 5 11:45:44 Problem Notes None recorded. Procedures Surgical History Date Name Laterality Status Provider Name and Address Organization Details Recorded Time 07/23/[address], LD [address] , [place], [address], [place] [facility] [facility] & [place] 08/14/2022 16:17:22 05/28/20 21 Date of Last Pap Smear completed RIMMA RAY RD, LD [address], [place], [address], [place] [facility] [facility] & [place] 08/14/2022 16:17:22 12/20/19 21 Date of Last Colonoscopy completed RIMMA RAY RD, LD [address], [place], [address], [place] [facility] [facility] & [place] 08/14/2022 16:17:22 11/17/19 20 Most Recent Bone Density completed RIMMA RAY RD, LD [address], [place], [address], [place] [facility] [facility] & [place] 08/14/2022 16:17:22 Appendectomy completed Not Available [facility] 13:08:39 extraction of wisdom tooth completed Not Available [facility] 08/10/2022 13:08:39 lithotripsy completed Not Available [facility] 07/14 13:08:39 Colonoscopy completed Marychuy Quesada [facility] & [place] 08/13/2022 11:21:25 EGD completed Maryhcuy SNOW [facility] & [place] 08/13/2022 11:21:36 Gastric Bypass completed Dipeshkaryn Dow [facility] & [place] 12/29/2022 08:20:27 Imaging Results None recorded. Procedure Notes None recorded. Medical Equipment None Reported. Allergies Allergen ID Allergen Name Allergen Category Reaction Reaction Severity Criticality Documentation Date Start Date Code Code System Note Provider Name and Address Organization Details Recorded Time 70470 Product containin g penicilli n (product) medicatio n Not available Not available Not available 03/25/2022 88783 8001 SNOMED [facility] [place] 2 14:01:10 486995 indometha gen medicatio n Not available Not available Not available 06/19/2024 5781 RxNorm Other react ions and sever ities : 'Adve rse react ion to subst ance' . [facility] 4 14:05:45 424925 penicilli n V Not available Not available Not available Not available 06/19/2024 7984 RxNorm Other react ions and sever ities : 'Anap hylax is due to subst ance' . [facility] [place] 4 14:05:45 815128 milnacipr an medicatio n Not available Not available Not available 06/19/2024 73041 0 RxNorm Other react ions and sever ities : 'Adve rse react ion to subst ance' . [facility] & [place] 4 14:05:45 69436 Savella medicatio n Not available Not available Not available 08/13/2022 43756 6 RxNorm Marychuyuriah Quesada [facility], [place] - [facility] - [place] & [place] 3 11:18:57 Medications Name Sig Start Date [...] completed Not Available Not Available Not Available Trulance 3 mg tablet Take 1 tablet every day by oral route for 30 days. 2024 active Not Available Not Available Not Avai lable Trelegy Ellipta 100 mcg-62.5 mcg-25 mcg powder [...] cm 98.1 [degF] 75 /min 24.8 kg/m2 51221.7 4 g 96/70 mm[Hg] Araceli Velasquez [facility] & [place] 5 09:01:03 Date Recorded Body height Body mass index (BMI) Body weight Body temperature Heart rate Provider Name and Address Organization Details Last Updated DateTime 12/27/2024 162.56 cm 24.7 kg/m2 82588.58 g 98.4 [degF] 97 /min Ernestine [facility] & [place] 5 14:16:54 Date Recorded Body height Body mass index (BMI) Body weight Body temperature Oxygen saturation Oxygen saturation in Arterial blood by Pulse oximetry Heart rate Heart rate Systolic And Diastolic Provider Name and Address Organization Details Last Updated DateTime 5 162.56 cm 25.2 kg/m2 18462.0 8 g 97.2 [degF] 96 % 96 % 66 /min 67 /min 132/86 mm[Hg] Francisca Bautista [facility] & [place] 5 10:53:10 Date Recorded Body height Body temperature Heart rate Body mass index (BMI) Body weight Systolic And Diastolic Provider Name and Address Organization Details Last Updated DateTime 4 162.56 cm 98.7 [degF] 89 /min 25 kg/m2 26101.4 1 g 113/81 mm[Hg] Araceli Escoto NT [facility] & [place] 4 09:17:32 Date Recorded Body height Body mass index (BMI) Body weight Body temperature Heart rate Heart rate Oxygen saturation Oxygen saturation in Arterial blood by Pulse oximetry Systolic And Diastolic Provider Name and Address Organization Details Last Updated DateTime 4 162.56 cm 24.8 kg/m2 94974.0 2 g 97.4 [degF] 99 /min 98 /min 97 % 97 % 107/73 mm[Hg] Francisca SNOW - [facility] & [place] 4 13:05:54 Social History Question Answer Notes LastModified by Leftronic Details LastModified Time Tobacco Smoking Status Former Smoker quit 3 years ago Araceli aguillon, EDY [facility] & [place] 09/06/2023 09:49:34 Do You Have An Advance Directive? No Information not available 08/14/2022 Are You Blind Or Do You Have Difficulty Seeing? No [email or web address] Information not available 08/14/2022 What Was The Date Of Your Most Recent Tobacco Screening? 08/10/2022 [email or web address] Information not available 08/14/2022 Are You Passively Exposed To Smoke? No [email or web address] Information not available 08/14/2022 How Much Tobacco Do You Smoke? No [email or web address] Information not available 08/14/2022 Sex: Male Functional Status Question Answer Note LastModified by Organizat ion Details LastModified Time Do you use any illicit or recreational drugs? No [email or web address] Information not available 08/10/2022 What is your level of alcohol consumption? None [email or web address] Information not available 08/10/2022 Do you or have you ever used smokeless tobacco? Never used smokeless tobacco [email or web address] Information not available 08/14/2022 What is your exercise level? None [email or web address] Information not available 08/14/2022 Mental Status Question Answer Note LastModified by Organization D etails LastModified Time Do you feel stressed (tense, restless, nervous, or anxious, or unable to sleep at night)? [id number] [email or web address] Information not available 08/14/2022 Family History Relationship Description Onset Age of this Age Resolved Age Notes LastModified by Organization Details LastModified Time Father Obesity [email or web address] Not availa ble 08/10/2022 08:30:50 Father Diabetes mellitus [email or web address] Not available 2024 10:25:27 Father Hypertensive disorder [email or web address] Not available 08:31:23 Father Heart disease [email or web address] Not available 08:31:48 Father Cerebrovascu lar accident [email or web address] Not available 08/10/2022 08:32:04 Father Hypercholest erolemia [email or web address] Not available 08:32:27 Father Asthma [email or web address] Not available 10:25:27 Father Allergy pt. added direct ly (08/10) [email or web address] Not available 08/10/2022 13:04:20 Father Disorder of endocrine system pt. added direct ly (08/10) [email or web address] Not available 08/10/2022 13:07:54 Maternal Grandmother Obesity [email or web address] Not available 0 08/10/2022 08:30:50 Maternal Grandmother Hypertensive disorder [email or web address] Not available 08:31:23 Maternal Grandmother Heart disease [email or web address] Not available 08:31:49 Mother Hypertensive disorder [email or web address] Not available 08:31:23 Mother Heart disease [email or web address] Not available 08:31:48 Mother Cerebrovascu lar accident [email or web address] Not available 08/10/2022 08:32:04 Mother Hypercholest erolemia [email or web address] Not available 08:32:27 Mother Allergy pt. added direct ly (08/10) [email or web address] Not available 08/10/2022 13:04:20 Brother Hypertensive disorder [email or web address] Not available 08:31:23 Brother Heart disease [email or web address] Not available 08:31:49 Brother Hypercholest erolemia [email or web address] Not available 08:32:27 Brother Cerebrovascu lar accident pt. added direct ly (09/03) [email or web address] Not available 09/03/2023 11:07:40 Sister Hypertensive disorder [email or web address] Not available 08:31:23 Sister Hypercholest erolemia [email or web address] Not available 08:32:27 Maternal Grandfather Heart disease [email or web address] Not available 08:31:49 Maternal Uncle Allergy pt. added direct ly (08/10) [email or web address] Not available 08/10/2022 13:04:20 Paternal Grandmother Obesity pt. added direct ly (08/10) [email or web address] Not available 08/10/2022 13:08:19 Medical History Condition Response Gout N Other Y Kidney Stones Y COPD Y Depression Y Osteoporosis/Osteopenia Y Constipation Y Spine Problems Y Heart Attack (PR) Y Obstructive Sleep Apnea Y Anxiety Disorder [...] virus, quadrivalent, preservative 7 completed Not Available [facility] 01/01/2023 16:06:44 Influenza, recombinant, quadrivalent, PF 1 completed Not Available [facility] 01/01/2023 16:06:44 Influenza, recombinant, quadrivalent, PF 0 completed Not Available [facility] 01/01/2023 16:06:44 zoster recombinant 1 completed [facility] Available [facility]23 16:06:44 zoster recombinant 1 completed Not Available [facility] 01/01/2023 16:06:44 MMR 6 completed Not Available [facility] 01/01/2023 16:06:44 COVID-19, mRNA, LNP-S, PF, 100 mcg/0.5mL dose or 50 mcg/0.25mL dose 1 completed Not Available [facility] 01/01/2023 16:06:44 COVID-19, mRNA, LNP-S, PF, 100 mcg/0.5mL dose or 50 mcg/0.25mL dose 1 completed Not Available [facility] 01/01/2023 16:06:44 COVID-19, mRNA, LNP-S, PF, 100 mcg/0.5mL dose or 50 mcg/0.25mL dose 1 completed Not Available [facility] 01/01/2023 16:06:44 Pneumococcal conjugate PCV20, polysaccharide SMX231 conjugate, adjuvant, PF 2 completed Not Available [facility] 01/01/2023 16:06:44 pneumococcal polysaccharide PPV23 1 completed Not Available [facility] 01/01/2023 16:06:44 pneumococcal polysaccharide PPV23 7 completed Not Available [facility] 01/01/2023 16:06:44 Influenza, split virus, quadrivalent, PF 9 completed Not Available [facility]01[facility]23 16:06:44 Influenza, split virus, quadrivalent, PF 2 completed Not Available [facility] 01/01/2023 16:06:44 Influenza, split virus, quadrivalent, PF 8 completed Not Available [facility] 01/01/2023 16:06:44 influenza, unspecified formulation 4 completed Kary Rust null, [place] - [facility] [place] & [place] 08/08/2024 13:51:39 Respiratory syncytial virus (RSV) MAB, unspecified 4 completed Araceli Velasquez [place] [facility] [place] & [place] 06/06/2024 09:21:15 Influenza, high-dose, quadrivalent, PF 3 completed Kary uRst [place], [place] [facility] [place] & [place] 08/08/2024 13:51:39 RSV, recombinant, protein subunit RSVpreF, adjuvant reconstituted, 0.5 mL, PF 4 completed Kary aguillon, [place] - [facility] - [place] & [place] 08/08/2024 13:51:39 Influenza, high-dose, trivalent, PF 4 completed Kary aguillon, EDY - [facility] - [place] & [place] 08/08/2024 13:51:39 Past Encounters Encounter ID Performer Location Encounter Start Date Encounter Closed Date Diagnosis/Indication Diagnosis SNOMED-CT Code Diagnosis ICD10 Code Diagnosis IMO Codes Diagnosis Note [id number] Ernesto Amezcua PA-C [facility] [address] [facility] [address] [place] [address] 03/25/2022 13:56:07 03/25/2022 14:27:57 Chronic idiopathic constipation 87570243 K59.04 Continue current bowel regimen with stool softners, fiber supplement , and Miralax as needed Gastroesop hageal reflux disease 237590263 K21.9 Increase PPI to twice daily due to refractory symptoms Obesity 236482489 E66.9 Referral to Bariatrics to discuss weight loss options. [id number] RANI Rosario [facility] [address] [facility] [address] [place] [address] 08/13/2022 07:57:41 08/13/2022 11:52:06 Obesity 493715696 E66.9 The patient will be scheduled for [...] been completed Chronic ob structive pulmonary disease 37773308 J44.9 Hypertensive disorder 38 112462 I10 Dyslipidemia 626855219 E 78.5 Hx CAD s/p PR 2014 Gastroesop hageal reflux disease 025328937 K21.9 We discussed concerns of worsening gastroesop [...] lifelong contraindi cation to tobacco/ni cotine use [id number] Ernesto Amezcua PA-C [facility] [address] [facility] [address] [place] [address] 09/21/2022 13:44:59 09/21/2022 14:12:51 Chronic idiopathic constipation 65275539 K59.04 Gastroesop hageal reflux disease 449915006 K21.9 Obesity 856372072 E66.9 [id number] Gabo Sahu DO [facility] [address] [facility] [address] [place] [address] 12/16/2022 08:52:42 12/16/2022 13:36:20 Morbid obesity 669389064 E66.01 Pre-surger y evaluation 333398067 Z01.818 Postoperative pain 37880 9007 G89.18 Hypertensive disorder 38 052894 I10 Gastroesop hageal reflux disease 059078296 K21.9 [id number] Aden Husain, DNP, NUCLEAR WASTE PROCESS OPERATOR, TRANSCRIBING MACHINE MECHANIC-C [facility] [address] [facility] [address] [place] [address] 12/29/2022 07:58:00 12/29/2022 10:15:25 History of bariatric surgical procedure 511456426 Z98.84 Chronic depression 60518 0009 F32.A Chronic ob structive pulmonary disease 74892670 J44.9 Dyslipidemia 776161583 E 78.5 Fibromyalgia 759264766 M 79.7 Hypertensive disorder 38 154281 I10 advised to follow back up with pcp regarding elevated blood pressure and dizziness. Morbid obesity 951703692 E66.01 Dizziness 875677870 R42 Intentiona l weight loss 215174569 R63.8 [id number] Aden Husain DNP, NUCLEAR WASTE PROCESS OPERATOR, TRANSCRIBING MACHINE MECHANIC-C [facility] [address] [facility] [address] [place] [address] 01/19/2023 09:44:10 01/19/2023 11:03:53 History of bariatric surgical procedure 056239427 Z98.84 Intentiona l weight loss 789882755 R63.8 History of gastrectomy 664071097 Z90.3 Advised qid intake 50% protein 0196-3405 calories/d y less than 100 carbs/dyPa tient was see dietitian today. Patient is status post bariatric surgery and at increased risk for vitamin deficienci es and malnutriti on. Bariatric vitamin panel ordered today. Patient will be contacted to correct any vitamin deficienci es. Chronic ob structive pulmonary disease 23870168 J44.9 Dyslipidemia 548713864 E 78.5 Fibromyalgia 097458887 M 79.7 Hypertensive disorder 38 256979 I10 advised to follow back up with pcp regarding elevated blood pressure and dizziness. Morbid obesity 043190274 E66.01 Dizziness 563255134 R42 [id number] Aden Husain DNP, NUCLEAR WASTE PROCESS OPERATOR, TRANSCRIBING MACHINE MECHANIC-C [facility] [address] [facility] [address] [place] [address] 03/19/2023 10:10:54 03/19/2023 11:00:26 History of bariatric surgical procedure 508698115 Z98.84 Intentiona l weight loss 551543467 R63.8 History of gastrectomy 494169734 Z90.3 Advised qid intake 50% protein 0182-5938 calories/d y less than 100 carbs/dyLo ng [...] to correct any vitamin deficienci es. Dyslipidemia 228480502 E 78.5 Fibromyalgia 936631353 M 79.7 Obesity 754731207 E66.9 [id number] Ernesto Amezcua PA-C [facility] [address] [facility] [address] [place] [address] 05/20/2023 14:50:51 05/20/2023 15:32:08 Obesity 695643027 E66.9 History of bypass of stomach 006815946 Z98.84 History of gastroesophageal reflux disease 3827093593 9106 Z87.19 Constipation 85342795 K5 9.00 [id number] Aden Husain, DNP, NUCLEAR WASTE PROCESS OPERATOR, TRANSCRIBING MACHINE MECHANIC-C [facility] [address] [facility] [address] [place] [address] 05/28/2023 09:12:11 05/28/2023 09:46:17 History of bariatric surgical procedure 996350729 Z98.84 Intentiona l weight loss 912755449 R63.8 History of gastrectomy 360505980 Z90.3 Advised qid intake 50% protein 7768-4748 calories/d y less than 100 carbs/dy Long [...] correct any vitamin deficienci es. Chronic depression 72573 0009 F32.A Chronic id iopathic constipation 12407642 K59.04 Dyslipidemia 513463398 E 78.5 Fibromyalgia 713588217 M 79.7 Hypertensive disorder 38 174267 I10 Obesity 091398961 E66.[id number] THOMAS RDN, LD [facility] [address] [facility] [address] [place] [address] 05/28/2023 09:47:21 05/28/2023 10:33:33 Obesity 503159918 E66.9 Discussed lifestyle modificati ons for continued weight loss and optimal nutrition Deficient knowledge of food and/or nutrition 1190564851 Z76.89 RDN advised pt on ways she can increase her protein and calorie intake, including adding peanut butter with fruits and making mixed dishes such as reduced fat casseroles . Advised pt to try baked apples with a small amount of canola oil, cinnamon and Splenda or similar alternativ e as needed. [id number] Aden Husain DNP, ARSENIO, TRANSCRIBING MACHINE MECHANIC-C [facility] [address] [place] [address] [address] [place] [address] 09/06/2023 09:37:05 09/06/2023 10:21:52 Dyslipidemia 908791980 E78.5 Fibromyalgia 855075712 M 79.7 Hypertensive disorder 38 286160 I10 Overweight 749008690 E66 .3 Intentiona l weight loss 015286152 R63.8 History of gastrectomy 468309883 Z90.3 Advised qid intake 50% protein 6116-3922 calories/d y less than 100 carbs/dy Long [...] to correct any vitamin deficienci es. Fatigue 17167031 R53.83 [id number] Aden Husain, CAMMIE, NUCLEAR WASTE PROCESS OPERATOR, TRANSCRIBING MACHINE MECHANIC-C [facility] [address] [facility] [address] [place] [address] 12/07/2023 13:03:52 12/07/2023 14:39:49 History of bariatric surgical procedure 700929187 Z98.84 Intentiona l weight loss 389483457 R63.8 History of gastrectomy 416476783 Z90.3 Advised qid intake 50% protein 0552-6940 calories/d y less than 100 carbs/dy Long [...] to correct any vitamin deficienci es. Dyslipidemia 794485932 E 78.5 Hypertensive disorder 38 299794 I10 Overweight 983384687 E66 .3 Chronic ob structive pulmonary disease 41264869 J44.9 Liver enzy mes level above reference range 895986501 R74.01 [id number] Jonas Ball MD [facility] [address] [place] [address] 12/21/2023 14:58:32 12/21/2023 16:40:24 Obesity 374490525 E66.9 History of bypass of stomach 667095402 Z98.84 History of gastroesophageal reflux disease 8483372687 9106 Z87.19 Constipation 45983304 K5 9.00 Liver enzy mes level above reference range 306298253 R74.01 [id number] Ernesto Amezcua PA-C [facility] [address] [place] [address] 03/02/2024 08:10:22 03/02/2024 09:21:52 Obesity 219001436 E66.9 History of bypass of stomach 670585621 Z98.84 History of gastroesophageal reflux disease 8838774222 9106 Z87.19 Liver enzy mes level above reference range 293118299 R74.01 Irritable bowel syndrome characterized by constipation 552592107 K58.1 [id number] Aden Husain, DNP, NUCLEAR WASTE PROCESS OPERATOR, TRANSCRIBING MACHINE MECHANIC-C [facility] [address] [facility] [address] [place] [address] 03/06/2024 09:07:07 03/06/2024 10:03:41 History of bariatric surgical procedure 032790407 Z98.84 Intentiona l weight loss 708775104 R63.8 History of gastrectomy 704643671 Z90.3 Advised qid intake 50% protein 5224-5864 calories/d y less than 100 carbs/dyLo ng [...] to correct any vitamin deficienci es. Dyslipidemia 446600876 E 78.5 Hypertensive disorder 38 212371 I10 Overweight 249170691 E66 .3 Chronic id iopathic constipation 79469523 K59.04 [id number] Aden Husain, DNP, NUCLEAR WASTE PROCESS OPERATOR, TRANSCRIBING MACHINE MECHANIC-C [facility] [address] [facility] [address] [place] [address] 06/06/2024 09:07:53 06/06/2024 09:44:14 Intentional weight loss 245840525 R63.8 History of gastrectomy 454933582 Z90.3 Advised qid intake 50% protein 6040-1069 calories/d y less than 100 carbs/dyLo ng [...] to correct any vitamin deficienci es. [facility] 762441477 Z91.89 Chronic ob structive pulmonary disease 23480502 J44.9 Dyslipidemia 227921090 E 78.5 Hypertensive disorder 38 461305 I10 Liver enzy mes level above reference range 068924442 R74.01 Overweight 141630871 E66 .3 [id number] Ernesto Amezcua PA-C [facility] [address] [facility] [address] [place] [address] 06/26/2024 12:47:56 06/26/2024 13:41:37 Chronic idiopathic constipation 09283999 K59.04 Metabolic dysfunction-associate d steatohepatitis 774478776 K75.81 Liver enzy mes level above reference range 656190477 R74.01 Gastroesop hageal reflux disease without esophagitis 862747015 K21.9 History of colonoscopy 3711443819 09 Z98.709 [id number] Aden Husain, DNP, NUCLEAR WASTE PROCESS OPERATOR, TRANSCRIBING MACHINE MECHANIC-C [facility] [address] [facility] [address] [place] [address] 12/08/2024 08:48:35 12/08/2024 09:28:10 History of bariatric surgical procedure 327905135 Z98.84 831944 Intentiona l weight loss 912122248 R63.8 History of gastrectomy 715330619 Z90.3 Advised qid intake 50% protein 2140-7364 calories/d y less than 100 carbs/dy Long [...] to correct any vitamin deficienci es. At [facility] risk of nutritional deficit 211338720 Z91.89 Dyslipidemia 814604497 E 78.5 Hypertensive disorder 38 325183 I10 Overweight 708873727 E66 .3 [id number] Ernesto Amezcua PA-C [facility] [address] [facility] [address] [place] [address] 12/27/2024 14:10:09 12/27/2024 14:38:18 Liver enzymes level above reference range 610186222 R74.01 Metabolic dysfunction-associate d steatohepatitis 241632465 K75.81 2237007051 Gastroesop hageal reflux disease without esophagitis 566066174 K21.9 Chronic id iopathic constipation 50704225 K59.04 History of colonoscopy 5959299420 09 Z98.211 [id number] Ernesto Amezcua PA-C [facility] [address] [facility] [address] [place] [address] 04/24/2025 10:24:37 04/24/2025 11:45:04 Liver enzymes level above reference range 685778313 R74.01 Metabolic dysfunction-associate d steatohepatitis 193409716 K75.81 9439382801 Gastroesop hageal reflux disease without esophagitis 040702450 K21.9 Chronic id iopathic constipation 04323823 K59.04 History of colonoscopy 4419680737 09 Z98.890 Irritable bowel syndrome characterized by constipation 148424647 K58.1 904026 Hyperlipidemia 50640037 E78.5 [id number] Health Concerns Section Related Observation LastModified by Organization Detai ls LastModified Time None Recorded Concern Status LastModified by Organization Details LastModified Time None Recorded Advance Directives Directive N: Payers Insurance Date Sequence Insurance Name Policy Number Policy Acosta Covered Member ID Acosta Member ID Guarantor Name 01/04/2025 1 MEDICARE [place]: WPS Wendy Mark Doran [id number] Wendy [place] [facility] 05/19/2025 2 AARP (MEDICARE SUPPLEMENT) Wendy Mark Doran [id number] Wendy Red House 01/04/2025 [place] Wendy Mark Doran [id number] Wendy [facility] 05/19/2025 1 [place] Wendy K Espinoza [id number] Wendy Espinoza 12/04/2020 3 [place] [id number] R Stanislav Doran [id number] Wendy Red [facility] 01/04/2025 2 [place] Wendy Mark HollandRed House [id number] Wendy Red House 01/04/2025 4 [employer] (MEDICARE REPLACEMENT/ ADVANTAGE - HMO) Wendy Mark Doran [id number] Wendy Red House 01/04/2025 1 [employer] (MEDICARE REPLACEMENT/ ADVANTAGE - PPO) Wendy Mark Doran [id number] Wendy Doran Notes Date Note Type Note [...] = 1309 kilo calories Aden Husain, CAMMIE, NUCLEAR WASTE PROCESS OPERATOR, TRANSCRIBING MACHINE MECHANIC-C [address], [place], [address], [facility] & [place] 06/06/2024 11:11:04 06/26/2024 text/html ROS as noted [...] since undergoing gastric bypass 1.5 years ago. ROSEANN GrajedaC [address], [place], [address], [facility] - [facility] & [place] 06/26/2024 13:49:44 12/08/2024 text/html ROS as noted [...] = 1261 kilo calories Aden Husain, DNP, NUCLEAR WASTE PROCESS OPERATOR, TRANSCRIBING MACHINE MECHANIC-C [address], [place], [address], [facility] & [place] 12/08/2024 09:20:24 12/27/2024 text/html ROS as noted [...] overall at this time. Ernesto Amezcua PA-C [address], [place], [address], [facility] - NT [facility] & [place] 12/27/2024 14:41:34 04/24/2025 text/html ROS as noted [...] 2 vegetable laxatives daily. Ernesto Amezcua PA-C [address], [place], [address], [place] - [facility] & [place] 04/24/2025 12:45:51 OBGyn Episode No OBEpisode recorded.
--- OUTSIDE RECORDS SUMMARY | 2025-05-21 12:10 | XMS_ITS | Clinical Summary ---
Author Organization [facility] Address [address] [place] [address] Care Team Providers Care Dope Sprayer Name Role Phone Saul Benitez MD Primary Care Provider [phone]- [phone] Family History Medical History Relation Name Comments [...] of Treatment Not on file Care Teams Dope Sprayer Relationship Specialty Start Date End Date Saul Benitez MD [address] [place] [address] PCP - General 11/22/20
--- OUTSIDE RECORDS SUMMARY | 2025-05-21 12:10 | XMS_ITS | Continuity of Care Document ---
Author Organization [place], [facility] the Address [address] [facility] [facility] [address] [place] [address] Care Team Providers Care Welding Pantograph Machine Operator Name Role Phone GENET BRCUE Primary Care Provider [phone] Assessment Encounter Date Assessment Date Assessment LastModified [...] recommended 04/2029 for screening. f/u 1 month [email or web address] Not available 04/24/2025 12:45:02 Plan of Treatment Reminders Order Date Submit Date Provider Last Modified By Organization Details Last Modified Time Details Appointments Establish ed Visit 15 min 2024 10:00A M Ernesto Amezcua PA-C Not available Not available Not available OV EST 20 2024 10:00A M Aden Husain, DNP, POULTRY RAISER, ROLL SCALE WORKER-C Not available Not available Not available Lab liver fibrosis score, calculate d by ELF, serum or plasma 2024 [place], [address], [place], [address], 04/28/2025 07:13:31 lipid panel, serum 2024 025 [facility], [address], [address], [place], [address], 04/28/2025 07:13:30 hepatic function panel, serum 2024 025 [facility], [address], [address], [place], [address], 04/28/2025 07:13:30 Referral None recorded. Procedures None recorded. Surgeries None recorded. Imaging None recorded. Medication Orders Ibsrela 50 mg tablet 2024 025 [place] [facility], [address] [place] [address] [address], RANI Schulz, [id number], 04/24/2025 11:10:06 Patient TargetsNo targets recorded. Patient InstructionsNo instructions recorded. Reason for Referral None Reported. Problems Name Problem SNOMED Code Status Onset Date Resolution Date Notes Provider Name and Address Organization Details Recorded Time Chronic idiopathi c constipat ion 87937161 Active [address], [place], [address] , [place] [facility] [place] 5 10:55:11 Gastroeso phageal reflux disease 656620133 Active 2021 Not Available [facility] 3 16:06:44 Diarrhea 99929610 Active 2021 Not Available [facility] 3 16:06:44 Hypokalem ia 39295555 Active 2021 Not Available [facility] 3 16:06:44 Abdominal pain 03534481 Active 2021 Not Available [facility] 3 16:06:44 Myocardia l infarctio n 32788460 Completed 202103/25/2022 Azeb aguillon, [place] [facility] [place] 2 14:37:03 Fibromyal dominique 559552093 Active 2021 Not Available [facility] 3 16:06:44 Mild dementia 43338209444 4108 Active 2021 Not Available [facility] 3 16:06:44 Chronic obstructi ve pulmonary disease 93743165 Active 2021 Not Available [facility] 3 16:06:44 Hiatal hernia 48786968 Completed 202103/25/2022 Azeb ag[place], [place] [facility] [place] 2 14:38:57 Chronic depressio n 916000793 Active 2021 Not Available [facility] 3 16:06:44 Obesity 064177474 Active [address], [place], [address] , [place] [facility] [place] 2 14:51:36 Hypertens silvino disorder 41369828 Active 2022 Not Available [facility] 3 16:06:44 Dyslipide franc 797950469 Active 2022 Not Available [facility] 3 16:06:44 Morbid obesity 126569411 Active 2022 Not Available [facility] 3 16:06:44 Dizziness 539000221 Active 2022 Not Available [facility] 3 16:06:44 Intention al weight loss 454403330 Active 2022 Not Available [facility] 3 16:06:44 Constipat ion 39793152 Active 2022 Ernesto Amezcua PA-C [address], [place], [address] , [place] [facility] [place] 3 15:41:42 Overweigh t 586278546 Active 2023 Aden Husain DNP, POULTRY RAISER, ROLL SCALE WORKER-C [address] , [place], [place], [address] [place] [address] , [place] [facility] [place] 4 09:57:50 Fatigue 41382158 Active 2023 Aden Husain DNP, POULTRY RAISER, ROLL SCALE WORKER-C [address] [facility], [place], [place], [address] [place] [address] , [place] [facility] 4 10:00:39 Liver enzymes level above reference range 401137374 Active 2023 Ernesto Amezcua PA-C [address], [place], [address] , [place] [facility] 5 10:55:11 Low back pain 426719711 Active 2023 Aden Husain DNP, POULTRY RAISER, ROLL SCALE WORKER-C [address] [facility], [place], [place], [address] [place] [address] , [place] [facility] [place] 4 15:56:35 Irritable bowel syndrome character ized by constipat ion 892094933 Active 2023 Ernesto Amezcua PA-C [address], [place], [address] , [place] [facility] 5 11:07:41 Metabolic dysfuncti on-associ ated steatohep atitis 415754668 Active 2023 Ernesto Amezcua PA-C [address], [place], [address] , [place] [facility] 5 14:30:35 Gastroeso phageal reflux disease without esophagit is 731340512 Active 2023 Ernesto Amezcua PA-C [address], [place], [address] , [place] [facility] 5 10:55:11 Hyperlipi demia 63703627 Active 2024 Ernesto Amezcua PA-C [address], [place], [address] , [place] [facility] [place] 5 13:05:05 Irritable bowel syndrome 75228404 Active 2024 Palak Gage [facility], [place] [facility] 5 11:45:44 Problem Notes None recorded. Procedures Surgical History Date Name Laterality Status Provider Name and Address Organization Details Recorded Time 07/23/[address], [place] [address], [place], [address], [place] [facility] [place] 08/14/2022 16:17:22 05/28/20 21 Date of Last Pap Smear completed RIMMA [address], [place] [address], [place], [address], [place] [facility] 08/14/2022 16:17:22 12/20/19 21 Date of Last Colonoscopy completed [address], [place] [address], [place], [address], [place] [facility] 08/14/2022 16:17:22 11/17/19 Most Recent Bone Density completed [address]MA [address], [address], [place], [address], [facility] & [place] 08/14/2022 16:17:22 Appendectomy completed Not Available [facility] 13:08:39 extraction of wisdom tooth completed Not Available [facility] 08/10/2022 13:08:39 lithotripsy completed Not Available [facility] 07/14 13:08:39 Colonoscopy completed Marychuy Quesada [facility] & [place] 08/13/2022 11:21:25 EGD completed Marychuy Quesada [facility] & [place] 08/13/2022 11:21:36 Gastric Bypass completed Dipesh Dow [facility] & [place] 12/29/2022 08:20:27 Imaging Results None recorded. Procedure Notes None recorded. Medical Equipment None Reported. Allergies Allergen ID Allergen Name Allergen Category Reaction Reaction Severity Criticality Documentation Date Start Date Code Code System Note Provider Name and Address Organization Details Recorded Time 18519 Product containin g penicilli n (product) medicatio n Not available Not available Not available 03/25/2022 13647 8001 SNOMED Azeb Quesada [facility] & [place] 2 14:01:10 674166 indometha gen medicatio n Not available Not available Not available 06/19/2024 5781 RxNorm Other react ions and sever ities : 'Adve rse react ion to subst ance' . Kary Rust [facility], [facility] & [place] 4 14:05:45 406568 penicilli n V Not available Not available Not available Not available 06/19/2024 7984 RxNorm Other react ions and sever ities : 'Anap hylax is due to subst ance' . Kary Rust [facility] & [place] 4 14:05:45 741807 milnacipr an medicatio n Not available Not available Not available 06/19/2024 47827 0 RxNorm Other react ions and sever ities : 'Adve rse react ion to subst ance' . Kary Rust [facility], [place] - [facility] & [place] 4 14:05:45 8[address]13 [facility] Not [facility] Not available Not available 08/13/2022 58871 6 RxNorm Marychuy Quesada [facility], [facility] & [place] 3 11:18:57 Medications Name Sig Start [...] Updated DateTime 5 162.56 cm 25.2 kg/m2 43944.0 8 g 97.2 [degF] 96 % 96 % 66 /min 67 /min 132/86 mm[Hg] Francisca Bautista [facility] & [place] 5 10:53:10 Social History Question Answer Notes LastModified by Organizat ion Details LastModified Time Tobacco Smoking Status Former Smoker quit 3 years ago Araceli Velasquez [facility], [facility] & [place] 09/06/2023 09:49:34 Do You Have An Advance Directive? No Information not available 08/14/2022 Are You Blind Or Do You Have Difficulty Seeing? No [email or web address] Information not available 08/14/2022 What Was The Date Of Your Most Recent Tobacco Screening? 08/10/2022 [email or web address] Information not available 08/14/2022 Are You Passively Exposed To Smoke? No Information not available 08/14/2022 How Much Tobacco Do You Smoke? No [email or web address] Information not available 08/14/2022 Sex: Male Functional Status Question Answer Note LastModified by Organizat ion Details LastModified Time Do you use any illicit or recreational drugs? No Information not available 08/10/2022 What is your level of alcohol consumption? None [email or web address] Information not available 08/10/2022 Do you or have you ever used smokeless tobacco? Never used smokeless tobacco [email or web address] Information not available 08/14/2022 What is your exercise level? None [email or web address] Information not available 08/14/2022 Mental Status Question Answer Note LastModified by Organization D etails LastModified Time Do you feel stressed (tense, restless, nervous, or anxious, or unable to sleep at night)? [id number] [email or web address] Information not available 08/14/2022 Family History Relationship Description Onset Age of this Age Resolved Age Notes LastModified by Organization Details LastModified Time Father Obesity [email or web address] Not availa ble 08/10/2022 08:30:50 Father Diabetes mellitus [email or web address] Not available 2024 10:25:27 Father Hypertensive disorder [email or web address] Not available 08:31:23 Father Heart disease [email or web address] Not available 08:31:48 Father Cerebrovascu lar accident [email or web address] Not available 08/10/2022 08:32:04 Father Hypercholest erolemia [email or web address] Not available 08:32:27 Father Asthma [email or web address] Not available 10:25:27 Father Allergy pt. added direct ly (08/10) [email or web address] Not available 08/10/2022 13:04:20 Father Disorder of endocrine system pt. added direct ly (08/10) [email or web address]-13 Not available 08/10/2022 13:07:54 Maternal Grandmother Obesity [email or web address] Not available 0 08/10/2022 08:30:50 Maternal Grandmother Hypertensive disorder [email or web address] Not available 08:31:23 Maternal Grandmother Heart disease [email or web address] Not available 08:31:49 Mother Hypertensive disorder [email or web address] Not available 08:31:23 Mother Heart disease [email or web address] Not available 08:31:48 Mother Cerebrovascu lar accident Not available 08/10/2022 08:32:04 Mother Hypercholest erolemia [email or web address] Not available 08:32:27 Mother Allergy pt. added direct ly (08/10) [email or web address]-13 Not available 08/10/2022 13:04:20 Brother Hypertensive disorder [email or web address] Not available 08:31:23 Brother Heart disease [email or web address] Not available 08:31:49 Brother Hypercholest erolemia [email or web address] Not available 08:32:27 Brother Cerebrovascu lar accident pt. added direct ly (09/03) [email or web address]-13 Not available 09/03/2023 11:07:40 Sister Hypertensive disorder [email or web address] Not available 08:31:23 Sister Hypercholest erolemia [email or web address] Not available 08:32:27 Maternal Grandfather Heart disease [email or web address] Not available 08:31:49 Maternal Uncle Allergy pt. added direct ly (08/10) [email or web address] Not available 08/10/2022 13:04:20 Paternal Grandmother Obesity pt. added direct ly (08/10) [email or web address]-13 Not available 08/10/2022 13:08:19 Medical History Condition Response Gout N Other Y Kidney Stones Y COPD Y Depression Y Osteoporosis/Osteopenia Y Constipation Y Spine Problems Y Heart Attack ([place]) Y Obstructive Sleep Apnea Y Anxiety Disorder [...] Immunizations Vaccine Type Date Status Note Provider Ger chirinos and Address Organization Details Recorded Time Influenza, split virus, quadrivalent, preservative 7 completed Not Available [facility] 01/01/2023 16:06:44 Influenza, recombinant, quadrivalent, PF 1 completed Not Available [facility] 01/01/2023 16:06:44 Influenza, recombinant, quadrivalent, PF 0 completed Not Available [facility] 01/01/2023 16:06:44 zoster recombinant 1 completed Not Available [facility] 01/01/2023 16:06:44 zoster recombinant 1 completed Not Available [facility] 01/01/2023 16:06:44 MMR 6 completed Not Available [facility] 01/01/2023 16:06:44 COVID-19, mRNA, LNP-S, PF, 100 mcg/0.5mL dose or 50 mcg/0.25mL dose 1 completed Not Available [facility] 01/01/2023 16:06:44 COVID-19, mRNA, LNP-S, PF, 100 mcg/0.5mL dose or 50 mcg/0.25mL dose 1 completed Not Available [facility] 01/01/2023 16:06:44 COVID-19, mRNA, LNP-S, PF, 100 mcg/0.5mL dose or 50 mcg/0.25mL dose 1 completed Not Available [facility] 01/01/2023 16:06:44 Pneumococcal conjugate PCV20, polysaccharide [id number] conjugate, adjuvant, PF 2 completed Not Available [facility] 01/01/2023 16:06:44 pneumococcal polysaccharide PPV23 1 completed Not Available [facility] 01/01/2023 16:06:44 pneumococcal polysaccharide PPV23 7 completed Not Available [facility] 01/01/2023 16:06:44 Influenza, split virus, quadrivalent, PF 9 completed Not Available [facility] 01/01/2023 16:06:44 Influenza, split virus, quadrivalent, PF 2 completed Not Available [facility] 01/01/2023 16:06:44 Influenza, split virus, quadrivalent, PF 8 completed Not Available [facility] 01/01/2023 16:06:44 influenza, unspecified formulation 4 completed Kary Rust null, [facility] & [place] 08/08/2024 13:51:39 Respiratory syncytial virus (RSV) MAB, unspecified 4 completed Araceli Velasquez null, [place] [facility] & [place] 06/06/2024 09:21:15 Influenza, high-dose, quadrivalent, PF 3 completed Kary Rust null, [place] [facility] & [place] 08/08/2024 13:51:39 RSV, recombinant, protein subunit RSVpreF, adjuvant reconstituted, 0.5 mL, PF 4 completed Kary Rust null, [facility] & [place] 08/08/2024 13:51:39 Influenza, high-dose, trivalent, PF 4 completed Kary Rust null, [facility] & [place] 08/08/2024 13:51:39 Past Encounters Encounter ID Performer Location Encounter Start Date Encounter Closed Date Diagnosis/Indication Diagnosis SNOMED-CT Code Diagnosis ICD10 Code Diagnosis IMO Codes Diagnosis Note [id number] Ernesto Amezcua PA-C [facility] [address] [address] 04/24/2025 10:24:37 04/24/2025 11:45:04 Liver enzymes level above reference range 083725863 R74.01 Metabolic dysfunction-associate d steatohepatitis 786443512 K75.81 4397261842 Gastroesop hageal reflux disease without esophagitis 877168996 K21.9 Chronic id iopathic constipation 55082390 K59.04 History of colonoscopy 7813292059 09 Z98.890 Irritable bowel syndrome characterized by constipation 837888573 K58.1 393208 Hyperlipidemia 98052000 E78.5 83791198 Health Concerns Section Related Observation LastModified by Organization Detai ls LastModified Time None Recorded Concern Status LastModified by Organization Details LastModified Time None Recorded Payers Encounter Date Sequence Insurance Name Policy Number Policy Acosta Covered Member ID Acosta Member ID Guarantor Name 04/24/2025 2 [employer] (MEDICARE SUPPLEMENT) Maria Isabel Doran [id number] Mari aIsabel Doran 04/24/2025 1 [place]ARE[place] Maria Isabel Doran [id number] Maria Isabel Doran Notes Date Note Type [...] bypass 1.5 years ago. PREVIOUS (12/27/24): Ms. oDran returns to the office today for 6 [...] daily, and 2 vegetable laxatives daily. Ernesto Amezcua, PA-C [address] [facility], [place], [address], [facility] - [place] - [place] 04/24/2025 12:45:51 OBGyn Episode No OBEpisode recorded.
--- NOTE | 2025-05-21 12:11 | CT_ITS ---
FINAL REPORT TECHNIQUE: Thin section axial CT with contrast with multiplanar reconstruction This study was performed with techniques to keep radiation doses as low as reasonably achievable, (ALARA). Individualized dose reduction techniques using automated exposure control or adjustment of mA and/or kV according to the patient''s size were employed. CLINICAL HISTORY: ANTERIOR CHEST WALL PAIN COMPARISON: 04/11/2025 FINDINGS: Pulmonary vessels enhance in normal fashion without evidence of embolism. Thoracic aorta shows no dissection or aneurysm. No pulmonary mass or infiltrate is present. There is mild lingular atelectasis. There is no significant pleural effusion. There is no significant pericardial effusion. No mediastinal or hilar adenopathy is present. Limited imaging of the upper abdomen demonstrates postoperative changes of gastric bypass. There is an acute, minimally displaced fracture of the right lateral seventh rib. No left rib fracture is seen. There is no pneumothorax or hemothorax. IMPRESSION: 1. No evidence of pulmonary embolism 2. Acute, minimally displaced right lateral seventh rib fracture without pneumothorax or hemothorax. Reviewed, Interpreted and Dictated by Marie Kimball MD Transcribed by Minerva Gates Authenticated and [facility]
--- NOTE | 2025-05-21 12:20 | XR_ITS ---
FINAL REPORT CLINICAL HISTORY: ANTERIOR rt sided CHEST WALL PAIN COMPARISON: None FINDINGS: 3 views of the right ribs show no fractures. There is no pneumothorax or pleural fluid collection. Frontal chest radiograph is unremarkable. IMPRESSION: Negative right rib series. Reviewed, Interpreted and Dictated by Marie Kimball MD Transcribed by Belkys Amezcua Authenticated and [facility]
[2025-05-21 12:33] LABS: Blood Urea Nitrogen 31 mg/dl (7-17); Creatinine,Serum 0.90 mg/dl (0.52-1.04); Estimated Glomerular Filt Rate 62 ml/min (>60); GFR (African American) 76 ML/MIN (>60)
[2025-05-21] MEDS: SODIUM CHLORIDE 0.9% 10ML SYR (RAD ONLY) 10 ML IV (13:14)
[2025-05-21] MEDS: 0.9 % SODIUM CHLORIDE 50 ML VIAL IV (13:14)
[2025-05-21] MEDS: IOPAMIDOL-370 (76%);100ML BOTTLE 85 ML IV (13:14)
== END 2025-05-21 23:59 | disposition home or self-care (01) ==
LOC: RAD 12:07
PROVIDERS: PCP Family Medicine; Visit Provider Nurse Practitioner Family
DX: S22.31XA Fracture of one rib, right side, initial encounter for closed fracture (principal)
CPT/HCPCS: 36415; 71101; 71275; 82565; 84520; Q9967

== ENCOUNTER 2025-05-30 12:58 | Outpatient (CLI) | payer MEDICARE, SELFPAY ==
--- OUTSIDE RECORDS SUMMARY | 2025-01-04 08:45 | XMS_ITS ---
Author Organization [facility] Address [address] [facility] [address] [place] [id number] Care Team Providers Care Maintenance Trainer Name Role Phone Jeyson Benitez Primary Care Provider [phone] Allergies Allergen (clinical drug ingredient) Drug/Non Drug [...] lamoTRIgine 150 MG TAKE 1 TABLET BY [facility] TWICE DAILY; Duration: 90 Active Calcium Citrate 150 MG 2 capsules Orally Once a day; Duration: 90 days Active hydrOXYzine HCl 10 MG as directed Orally Two times a day; Duration: 90 days Active Estrace 0.1 MG/GM 1 gm Vaginal 3 times per week 07/13/2024 Active traZODone HCl 100 MG TAKE 1 TABLET BY [facility] ONCE DAILY AT BEDTIME; Duration: 90 Active [...] 01/04/2025 Encounters Encounter Location Date Provider Diagnosis [facility] [address] [facility] [address], [place] [id number] 01/04/2025 R Foreign Benitez Pyelonephritis N12 Assessments Encounter Date Diagnosis (ICD Code) Assessment Notes Treatment Notes Treatment Clinical Notes Section Notes 01/04/2025 Pyelonephritis (ICD-10 - N12) She has failed to oral antibiotics. Plan for direct admission to [facility] for IV fluids and IV antibiotics. Plan Of Treatment Treatment Notes Assessment Notes Pyelonephritis She has failed to or al antibiotics. Plan for direct admission to [facility] for IV fluids and IV antibiotics. Next Appt Details Follow Up: After discharge, Reason: Progress Notes * BURT DORANOB:[birth year] (69 yo F)Acc No.[id number]:01/04/2025 Progress Notes Patient: WENDY ESCAMILLA Provider: Jeyson Benitez M.D. :1955 A ge:69 Y S ex:Female Date:01/04/2025 Address:[address] [place] [address] , [id number] Subjective: * Chief Complaints: * 1 . [...] 11/2020. * Hospitalization/Major Diagno stic Procedure: [facility] ER-diarrhea 03/2011, [facility] ER-back pain 06/2012, [facility]-heart attack 12/31/2014, [place] ER-constipation/impaction 09/2015, [place] ER-diarrhea 11/2015, [place] ER-Bronchitis 03/2018, Drs office in [place]-possible UTI, tested negative 12/2019. * Family History: [...] oral antibiotics. Plan for direct admission to [facility] for IV fluids and IV antibiotics.?? * Procedure Codes: 8 1002 Urinalysis, no micro * Follow Up: A fter discharge * Images: Billing Information: * Visit Code: * Procedure Codes: 66081 Urinalysis, no micro. * Electronic signature of Jeyson Benitez MD on 05/30/2025 at 01:53 PM EST Sign off status: Pending * Provider: Jeyson Benitez M.D. Date: 0 01/04/2025 Generated for Printi ng/Favalentinag/eTransmitting on: 1 07/30/2024 01:53 PM EST History and Physical Notes * [...]
--- OUTSIDE RECORDS SUMMARY | 2025-01-16 04:45 | XMS_ITS ---
Author Organization [facility] Address [address] [facility] [address] [place] [id number] Care Team Providers Care Concrete Building Assembler Name Role Phone Jeyson Benitez Primary Care Provider Allergies Allergen (clinical drug ingredient) Drug/Non Drug Allergy documented on EMR Reaction Allergy Type Onset Date Status indomethacin Indomethacin disoriented Drug Allergy Active milnacipran Savella memory loss and excessive drowsiness Drug Allergy Active Penicillin anaphylaxis Drug Allergy Acti ve Results Component Value Reference Range Notes Urinalysis - Inhouse Reviewed date:01/16/2025 01:06:05 PM Interpretation: Performing Lab: Notes/Report: Color/Clarity yellow/clear Leuk Neg Nitrite Neg Urobili 3.2 Protein Neg pH 5.5 Blood Neg Sp. Gr. 1.010 Ketone Neg Bili Neg Gluc Neg P-Culture, Urine Reviewed date:01/18/2025 02:40:55 PM Interpretation: Performing Lab: Notes/Report: Test performed by [facility] [address] [place] [address] , [address], [place] [address] Tim Parrish MD, Senior Systems Developer CLIA: [id number] Specimen Source Urine - Void Culture, Urine See Below Final Report : No Significant Growth REASON FOR VISIT F/U Hospital D/C Medications Medication SIG (Take, Route, Frequency, Duration) Notes Start Date End Date Status Ezetimibe 10 MG 1 tablet Orally Once a day; Duration: 90 days Active Venlafaxine HCl ER 225 MG 1 tablet with food Orally Once a day; Duration: 30 days Active Pantoprazole Sodium 40 MG TAKE 1 TABLET BY MOUTH TWICE DAILY; Duration: 90 Active Atorvastatin Calcium 40 MG TAKE 1 TABLET BY MOUTH ONCE DAILY; Duration: 90 Active oxyBUTYnin Chloride ER 10 MG TAKE 1 TABLET BY MOUTH ONCE DAILY; Duration: 90 days Active lamoTRIgine 150 MG TAKE 1 TABLET BY DOV TH TWICE DAILY; Duration: 90 Active SUMAtriptan Succinate 50 MG TAKE 1 TABLET BY MOUTH WITH ONSET OF HEADACHE. MAY REPEAT 1 TIME AFTER 2 HOURS. MAX 2 TABLETS IN 24 HOURS.; Duration: 12 days Active Calcium Citrate 150 MG 2 capsules Orally Once a day; Duration: 90 days Active traZODone HCl 100 MG TAKE 1 TABLET BY MO [facility] ONCE DAILY AT BEDTIME; Duration: 90 Active Estrace 0.1 MG/GM 1 gm Vaginal 3 times per week 07/13/2024 Active Macrodantin 100 MG 1 capsule at bedtime with food or milk Orally twice a day; Duration: 10 days 01/16/2025 Active hydrOXYzine HCl 10 MG as directed Orally Two times a day; Duration: 90 days Active QUEtiapine Fumarate ER 200 MG 1 tablet in the evening Orally Once a day Active CareTouch CPAP & BIPAP Hose 1 DIRECTED Active Prolia 60 MG/ML as directed subcutaneously every 6 months; Duration: 12 month(s) Active Aspirin 81 MG 1 tab(s) orally once a day; Duration: 30 day(s) Active Isosorbide Dinitrate 30 MG 1 tablet Orally once daily; Duration: 90 days Active Multivitamin - 1 tab(s) orally once a day w/ Iron Active Baclofen 10 MG 1 tablet as needed O rally Twice a day Active Linzess 290 MCG 1 capsule at least 3 0 minutes before the first meal of the day on an empty stomach Orally Once a day; Duration: 30 day(s) Active Vitamin D3 50 MCG (2000 UT) 1 tablet Orally Once a day; Duration: 30 day(s) Active Nitroglycerin 0.4 MG 1 tab(s) sublingual ly q 5min prn x 3 Active Montelukast Sodium 10 MG 1 tablet Orally Once a day 02/29/2024 Active Flonase Allergy Relief 50 MCG/ACT 1 spray in each nostril Nasally Twice a day Active Vital Signs Weight 140.8 lbs 01/16/2025 Blood pressure systolic 112 mm Hg 07/08/20 25 Blood pressure diastolic 70 mm Hg 025 Heart Rate 72 /min 01/16/2025 Height 65 in 01/16/2025 BMI 23.43 kg/m2 01/16/2025 Encounters Encounter Location Date Provider Diagnosis [facility] [address] [facility] [address] [facility] [address] [place] [id number] 01/16/2025 Jeyson Benitez Pyelonephritis N12 Assessments Encounter Date Diagnosis (ICD Code) Assessment Notes Treatment Notes Treatment Clinical Notes Section Notes 01/16/2025 Pyelonephritis (ICD-10 - N12) Will start oral Macrodantin based on her previous urine culture while awaiting repeat culture obtained today. Plan Of Treatment Medication Medication Name Sig Start Date Stop Date Notes Macrodantin 100 MG 1 capsule at bedtime with food or milk Orally twice a day; Duration: 10 days 01/16/2025 Treatment Notes Assessment Notes Pyelonephritis Will start oral Macr odantin based on her previous urine culture while awaiting repeat culture obtained today. Next Appt Details Follow Up: via phone to repo rt test results, Reason: Progress Notes * BURT DORANOB:[birth year] (69 yo F)Acc No.[id number]:01/16/2025 Patient: WENDY ESCAMILLA Provider: Jeyson Benitez M.D. :1955 A ge:69 Y S ex:Female Date:01/16/2025 Address:[address] [place] [address] , [id number] Subjective: * Chief Complaints: * 1 . F/U Hospital D/C. * HPI: H PI: She returns to follow-up on recent admission to [facility] for pyelonephritis. She completed a 7-day course of parenteral Invanz for resistant E. coli infection. She was feeling better and about 3 days ago, she started having some mild left CVA tenderness again with some chills but no fever. Denies dysuria. She is taking fluids well and appetite has improved. Overall she is feeling much better but is concerned about the recurring flank pain. * ROS: D ERMATOLOGY: no R chanell. n o H sherrie. G ASTROENTEROLOGY: no N ausea. n o V omiting. n o D iarrhea.? U ROLOGY: no D ifficulty urinating. n o B lood in urine. 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 Cath showed on [...] Ball 11/2020. * Hospitalization/Major Diagno stic Procedure: [facility] ER-diarrhea 03/2011, [facility] ER-back pain 06/2012, [facility]-heart attack 12/31/2014, [place] ER-constipation/impaction 09/2015, [place] ER-diarrhea 11/2015, [place] ER-Bronchitis 03/2018, Drs office in [place]-possible UTI, tested negative 12/2019. * Family History: F ather: . M other: alive. 2 brother(s) , 1 sister(s) . 1 son(s) , 1 daughter(s) . . * Social History: C URRENT TOBACCO USE S moking Status: P atient does NOT smoke quit after [place] 12/2014.?Caffeine: yes, frequency:. Home smoke detector use: [...] tablet Orally Once a day , Taking Nitroglycerin 0.4 MG Tablet Sublingual [...] a day , Taking QUEtiapine Fumarate ER 200 MG Tablet Extended Release 24 Hour 1 [...] TABLET BY MOUTH TWICE DAILY , Taking Ezetimibe 10 MG Tablet 1 tablet Orally Once a day , Taking Venlafaxine HCl ER 225 MG Tablet Extended Release 24 Hour 1 tablet with food Orally Once a day , Discontinued LORazepam 1 MG Tablet 1 tablet at bedtime as needed Orally Once a day , Discontinued Melatonin 5 MG Tablet 1 tablet at bedtime as needed Orally qhs , Discontinued levoFLOXacin 750 MG Tablet 1 tablet Orally Once a day , Medication List reviewed and reconciled with the patient * Allergies: P enicillin: anaphylaxis, Savella: memory loss and excessive drowsiness, Indomethacin: disoriented. Objective: * Vitals: W t: 140.8, Temp: 97.9, BP: 112/70, HR: 72, Nurse: CARLOS, Ht: 65, BMI:23.43. * Examination: G eneral Examination: General Appearance: N AD. H eart: R SR. L ungs:?clear to auscultation. A bdomen: M ild left CVA tenderness. Assessment: * Assessment: 1. P darshanlonephritis - N12 (Primary) Plan: * Treatment: Value Reference Range C ulture, Urine See Below - * S pecimen Source Urine - Void - * Jeyson Benitez 01/18/2025 02:40:47 PM EDT > See phone encounter ?LAB: Urinalysis - Inhouse (Collection Date & Time - 01/16/2025)* Value Reference Range C olor/Clarity yellow/clear * L euk Neg * N itrite Neg * U robili 3.2 * P rotein Neg * p H 5.5 * B lood Neg * S p. Gr. 1.010 * K etone Neg * B juanita Neg * G ana maría Neg * Cathi Hilton 01/16/2025 10: 16:56 AM EDT > Provider reviewed results while patient in office. Notes: Will start oral Macrodantin based on her previous urine culture while awaiting repeat culture obtained today.?? * Procedure Codes: G 2211 Complex e/[place], [address] Urinalysis, no micro * Follow Up: v ia phone to report test results * Images: Billing Information: * Visit Code: 66338 Office Visit, Est Pt., Level 3. * Procedure Codes: G2211 Complex e/[place]. [address] Urinalysis, no micro. * Electronic signature of Jeyson Benitez MD on 05/30/2025 at 01:53 PM EST Sign off status: Pending * Provider: Jeyson Benitez M.D. Date: 0 01/16/2025 Generated for Elkin castillo/Aram/eTransmitting on: 1 07/30/2024 01:53 PM EST History and Physical Notes * HPI (History of Present Illness) Category Sub-Category Detail Notes Category Not es HPI She returns to follow-up on recent admission to [facility] for pyelonephritis. She completed a 7-day course of parenteral Invanz for resistant E. coli infection. She was feeling better and about 3 days ago, she started having some mild left CVA tenderness again with some chills but no fever. Denies dysuria. She is taking fluids well and appetite has improved. Overall she is feeling much better but is concerned about the recurring flank pain Examination Category Sub-Category Detail Notes Category Not es General Examination Heart: RSR Lungs: clear to auscultatio n Abdomen: Mild left CVA tender ness General Appearance: NAD
--- OUTSIDE RECORDS SUMMARY | 2025-02-13 10:30 | XMS_ITS ---
Author Organization [facility] Address [address] [facility] [address] [place] [id number] Care Team Providers Care Photograph Mounter Name Role Phone Jeyson Benitez Primary Care Provider [phone] Allergies Allergen (clinical drug ingredient) Drug/Non Drug Allergy documented on EMR Reaction Allergy Type Onset Date Status indomethacin Indomethacin disoriented Drug Allergy Active milnacipran Savella memory loss and excessive drowsiness Drug Allergy Active Penicillin anaphylaxis Drug Allergy Acti ve Results Component Value Reference Range Notes Urinalysis - Inhouse Reviewed date:02/14/2025 09:38:34 AM Interpretation: Performing Lab: Notes/Report: Color/Clarity yellow/clear Leuk Trace Nitrite Neg Urobili 3.2 Protein Neg pH 5.5 Blood Neg Sp. Gr. 1.015 Ketone Neg Bili Neg Gluc Neg CT Scan : Abd & Pelvis w/o c ontrast Reviewed date:02/21/2025 11:03:18 AM Interpretation:indeterminate renal mass, moderate fecal impaction Performing Lab: Notes/Report: indeterminate renal mass, moderate fecal impaction REASON FOR VISIT back ache, LT side Medications Medication SIG (Take, Route, Frequency, Duration) Notes Start Date End Date Status Venlafaxine HCl ER 225 MG 1 tablet with food Orally Once a day; Duration: 90 days Active Macrodantin 100 MG 1 capsule at bedtime with food or milk Orally twice a day; Duration: 10 days 01/16/2025 Active Ezetimibe 10 MG 1 tablet Orally Once a day; Duration: 90 days Active lamoTRIgine 150 MG TAKE 1 TABLET BY DOV TWICE DAILY; Duration: 90 Active oxyBUTYnin Chloride ER 10 MG TAKE 1 TABLET BY MOUTH ONCE DAILY; Duration: 90 days Active SUMAtriptan Succinate 50 MG TAKE 1 TABLET BY MOUTH WITH ONSET OF HEADACHE. MAY REPEAT 1 TIME AFTER 2 HOURS. MAX 2 TABLETS IN 24 HOURS.; Duration: 12 days Active Estrace 0.1 MG/GM 1 gm Vaginal 3 times per week 07/13/2024 Active traZODone HCl 100 MG TAKE 1 TABLET BY [facility] ONCE DAILY AT BEDTIME; Duration: 90 Active Atorvastatin Calcium 20 MG TAKE 1 TABLET BY MOUTH ONCE DAILY; Duration: 90 days Active Pantoprazole Sodium 40 MG TAKE 1 TABLET BY MOUTH TWICE DAILY; Duration: 90 Active Calcium Citrate 150 MG 2 capsules Orally Once a day; Duration: 90 days Active hydrOXYzine HCl 10 MG as directed Orally Two times a day; Duration: 90 days Active Isosorbide Dinitrate 30 MG 1 tablet Orally once daily; Duration: 90 days Active QUEtiapine Fumarate ER 200 MG 1 tablet in the evening Orally Once a day Active Aspirin 81 MG 1 tab(s) orally once a day; Duration: 30 day(s) Active Nitroglycerin 0.4 MG 1 tab(s) sublingual ly q 5min prn x 3 Active Vitamin D3 50 MCG (1999 UT) 1 tablet Orally Once a day; Duration: 30 day(s) Active Prolia 60 MG/ML as directed subcutaneously every 6 months; Duration: 12 month(s) Active CareTouch CPAP & BIPAP Hose 1 DIRECTED Active Multivitamin - 1 tab(s) orally once a day w/ Iron Active Linzess 290 MCG 1 capsule at [...] tablet Orally Once a day 02/29/2024 Active Vital Signs Blood pressure systolic 110 mm Hg 02/14/20 25 Blood pressure diastolic 76 mm Hg 025 Heart Rate 57 /min 02/13/2025 Height 65 in 02/13/2025 Weight 139.4 lbs 02/13/2025 BMI 23.19 kg/m2 02/13/2025 Encounters Encounter Location Date Provider Diagnosis [facility] [address] [facility] [address] [place] [phone] 02/13/2025 Jeyson Benitez Pyelonephritis N12 Assessments Encounter Date Diagnosis (ICD Code) Assessment Notes Treatment Notes Treatment Clinical Notes Section Notes 02/13/2025 Pyelonephritis (ICD-10 - N12) Plan Of Treatment Next Appt Details Follow Up: after tests, Reas on: Progress Notes * BURT DORANOB:[birth year] (69 yo F)Acc No.[id number]:02/13/2025 Progress Notes Patient: WENDY ESCAMILLA Provider: Jeyson Benitez M.D. :1955 A ge:69 Y S ex:Female Date:02/13/2025 Address:[address] [place] [address] W , [id number] Subjective: * Chief Complaints: * 1 . back ache, LT side. * HPI: U rology: She returns with persistent complaints of left flank pain that has been ongoing since her recent hospital admission for pyelonephritis. Pain is not nearly as severe but is a constant dull aching pain that limits some of her activity. She denies dysuria, hematuria, or fever. * ROS: D ERMATOLOGY: no R chanell. [...] Ball 11/2020. * Hospitalization/Major Diagno stic Procedure: [facility] ER-diarrhea 03/2011, [facility] ER-back pain 06/2012, [facility]-heart attack 12/31/2014, [place] ER-constipation/impaction 09/2015, [place] ER-diarrhea 11/2015, [place] ER-Bronchitis 03/2018, Drs office in [place]-possible UTI, tested negative 12/2019. * Family History: [...] MOUTH TWICE DAILY , Taking Atorvastatin Calcium 20 MG Tablet TAKE 1 TABLET BY MOUTH ONCE DAILY , Taking oxyBUTYnin Chloride ER 10 MG Tablet Extended Release 24 Hour TAKE 1 TABLET BY MOUTH ONCE DAILY , Taking lamoTRIgine 150 MG Tablet TAKE 1 TABLET BY MOUTH TWICE DAILY , Taking Ezetimibe 10 MG Tablet 1 tablet Orally Once a day , Taking Macrodantin 100 MG Capsule 1 capsule at bedtime with food or milk Orally twice a day , Taking Venlafaxine HCl ER 225 MG Tablet Extended Release 24 Hour 1 tablet with food Orally Once a day , Medication List reviewed and reconciled with the patient * Allergies: P enicillin: anaphylaxis, Savella: memory loss and excessive drowsiness, Indomethacin: disoriented. Objective: * Vitals: W t: 139.4, Temp: 97.6, BP: 110/76, HR: 57, Nurse: pe, Ht: 65, BMI:23.19. * Examination: G eneral Examination: General Appearance: N AD. H eart: R SR. L ungs:?clear to auscultation. A bdomen: M ild left CVA tenderness to percussion. ? Assessment: * Assessment: 1. P yelonephritis - N12 (Primary) Plan: * Treatment: Value Reference Range C olor/Clarity yellow/clear * L euk Trace * N itrite Neg * U robili 3.2 * P rotein Neg * p H 5.5 * B lood Neg * S p. Gr. 1.015 * K etone Neg * B juanita Neg * G ana maría Neg * Cathi Hilton 02/13/2025 03: 47:48 PM EDT > Provider reviewed results while patient in office. ?Imaging: CT Scan : Abd & Pelvis w/o contrast (Performed Date - 02/19/2025)? indeterminate renal mass, moderate fecal impaction* Evie Clark 02/14/2025 09:47 :44 AM EDT > no auth required; CPT code 20787; faxed to [facility] Lin Pinedo 02/21/2025 11:03:14 AM EDT > See phone encounter * Procedure Codes: 8 1002 Urinalysis, no micro, G2211 Complex e/m visit add on * Follow Up: a fter tests * Images: Billing Information: * Visit Code: 42005 Office Visit, Est Pt., Level 3. * Procedure Codes: 59273 Urinalysis, no micro. G2211 Complex e/m visit add on. * Electronic signature of Jeyson Benitez MD on 05/30/2025 at 01:53 PM EST Sign off status: Pending * Provider: Jeyson Benitez M.D. Date: 0 02/13/2025 Generated for Elkin castillo/Aram/Linseyitting on: 07/30/2024 01:53 PM EST History and Physical Notes * Examination Category Sub-Category Detail Notes Category Not es General Examination Heart: RSR Lungs: clear to auscultatio n Abdomen: Mild left CVA tender ness to percussion General Appearance: NAD
--- OUTSIDE RECORDS SUMMARY | 2025-02-22 04:00 | XMS_ITS ---
Author Organization [facility] Address [address] [place] [phone] Care Team Providers Care Plant Manager Name Role Phone Jeyson Benitez Primary Care Provider Work In, Schedule Unavailable Unavailable REASON FOR VISIT urine culture only Encounters Encounter Location Date Provider Diagnosis [facility] [address] [place] [phone] 02/22/2025 Schedule Work In Plan Of Treatment No Information Progress Notes * BURT DORANOB:[birth year] (69 yo F)Acc No.[id number]:02/22/2025 Patient: WENDY ESCAMILLA Provider: John mccabe Work In :1955 A ge:69 Y S ex:Female Date:02/22/2025 Address:[address] [id number] Pcp:Jeyson Benitez Subjective: * Chief Complaints: * 1 . Urine culture only. * Medical History: Objective: * Vitals: Assessment: Plan: * Treatment: * Images: Billing Information: * Visit Code: * Procedure Codes: * Electronic signature of Ale finch Work In on 05/30/2025 at 01:53 PM EST Sign off status: Pending * Provider: John chedule Work In Date: 0 02/22/2025 Generated for Elkin castillo/Aram/eTransmitting on: 1 07/30/2024 01:53 PM EST
--- OUTSIDE RECORDS SUMMARY | 2025-02-26 05:15 | XMS_ITS ---
Author Organization [facility] Address [address] [facility] [address] [place], [place] [phone] Care Team Providers Care Ceramics Artist Name Role Phone Jeyson Benitez Primary Care Provider [phone] Marlena Antonio Unavailable [phone] Allergies Allergen (clinical drug ingredient) Drug/Non Drug Allergy documented on EMR Reaction Allergy Type Onset Date Status indomethacin Indomethacin disoriented Drug Allergy Active milnacipran Savella memory loss and excessive drowsiness Drug Allergy Active Penicillin anaphylaxis Drug Allergy Acti ve Results Component Value Reference Range Notes CBC Venipuncture (in house) Reviewed date:02/27/2025 02:33:52 PM Interpretation: Performing Lab: Notes/Report: wbc 6.7 3.5 - 10 lymph 24.9% 15 - 50 mid 7.6% 2 - 15 gran 67.5 35 - 80 rbc 4.33 3.5 - 5.5 hgb 13.2 11.5 - 16.5 hct 39.6 35 - 55 mcv 91.3 75 - 100 mch 30.6 25 - 35 mchc 33.4 31 - 38 platlet 255 100 - 400 P-Uric Acid Reviewed date:02/27/2025 02:33:38 PM Interpretation:3.5 Performing Lab: Notes/Report: Test performed by [employer], [employer] [facility] , [address], [place] [address] Tim Parrish MD, Senior Cytogenetics Laboratory Director CLIA: [id number] Uric Acid 3.5 2.4-7.0 mg/dL Reason For Referral Diagnosis 1 Acute pain of left k nee (M25.562) Referral Organization Jessica Referring Provider First Name Marlena Referring Provider Last Name Paco Referring Provider Speciality Family Clementina mclean Referred Provider Orthopedics, . Referred Provider Specialty Orthopedic S urgery General Notes needs referral for b oth left wrist and left knee aute pain; left knee is swollen and gives away; left wrist with no jeeper operator; wants to see Dr. Ramila Oliveira Taylor, Brynn 02/26/2025 11:23:26 AM > faxed to Dr. Mcgrath's office Referral Priority Routine REASON FOR VISIT arm & leg pain Medications Medication SIG (Take, Route, Frequency, Duration) Notes Start Date End Date Status Macrobid 100 MG 1 capsule with food Orally every 12 hrs 02/22/2025 Active oxyBUTYnin Chloride ER 10 MG 1 tablet Orally Once a day; Duration: 90 days Active Ezetimibe 10 MG 1 tablet Orally Once a day; Duration: 90 days Active Macrodantin 100 MG 1 capsule at bedtime with food or milk Orally twice a day; Duration: 10 days 01/16/2025 Active Venlafaxine HCl ER 225 MG 1 tablet with food Orally Once a day; Duration: 90 days Active Estrace 0.1 MG/GM 1 gm Vaginal 3 times per week 07/13/2024 Active SUMAtriptan Succinate 50 MG TAKE 1 TABLET BY MOUTH WITH ONSET OF HEADACHE. MAY REPEAT 1 TIME AFTER 2 HOURS. MAX 2 TABLETS IN 24 HOURS.; Duration: 12 days Active Pantoprazole Sodium 40 MG TAKE 1 TABLET BY MOUTH TWICE DAILY; Duration: 90 Active Atorvastatin Calcium 20 MG TAKE 1 TABLET BY MOUTH ONCE DAILY; Duration: 90 days Active lamoTRIgine 150 MG TAKE 1 TABLET BY DOV TH TWICE DAILY; Duration: 90 Active hydrOXYzine HCl 10 MG as directed Orally Two times a day; Duration: 90 days Active Calcium Citrate 150 MG 2 capsules Orally Once a day; Duration: 90 days Active traZODone HCl 100 MG TAKE 1 TABLET BY MO [facility] ONCE DAILY AT BEDTIME; Duration: 90 Active QUEtiapine Fumarate ER 200 MG 1 tablet in the evening Orally Once a day Active Isosorbide Dinitrate 30 MG 1 tablet Orally once daily; Duration: 90 days Active Nitroglycerin 0.4 MG 1 tab(s) sublingual ly q 5min prn x 3 Active Multivitamin - 1 tab(s) orally once a day w/ Iron Active CareTouch CPAP & BIPAP Hose 1 DIRECTED Active Prolia 60 MG/ML as directed subcutaneously every 6 months; Duration: 12 month(s) Active Aspirin 81 MG 1 tab(s) orally once a day; Duration: 30 day(s) Active Flonase Allergy Relief 50 MCG/ACT 1 spray in each nostril Nasally Twice a day Active Baclofen 10 MG 1 tablet as needed O rally Twice a day Active Linzess 290 MCG 1 capsule at least 3 0 minutes before the first meal of the day on an empty stomach Orally Once a day; Duration: 30 day(s) Active Vitamin D3 50 MCG (2000 UT) 1 tablet Orally Once a day; Duration: 30 day(s) Active Montelukast Sodium 10 MG 1 tablet Orally Once a day 02/29/2024 Active Problems Problem Type SNOMED Code ICD Code Onset Dates Problem Status W/U Status Risk Notes Problem Chronic respiratory failure (05720323) Chronic respiratory failure with hypoxia (J96.11) Active confirmed Vital Signs Blood pressure systolic 116 mm Hg 02/27/20 25 Blood pressure diastolic 60 mm Hg 025 Heart Rate 70 /min 02/26/2025 Height 65 in 02/26/2025 Weight 144.4 lbs 02/26/2025 BMI 24.03 kg/m2 02/26/2025 Encounters Encounter Location Date Provider Diagnosis [facility] [address] [phone] 02/26/2025 Marlena Antonio Acute pain of left knee M25.562 ; Acute pain of left wrist M25.532 ; Chronic respiratory failure with hypoxia J96.11 and BMI 24.0-24.9, adult Z68.24 Assessments Encounter Date Diagnosis (ICD Code) Assessment Notes Treatment Notes Treatment Clinical Notes Section Notes 02/26/2025 Acute pain of left knee (ICD-10 - M25.562) discussed xray, MRI and orthoped referral; will do [id number] at [facility]; she staes they always do Xray and can scheduled MRI if needed; encouraged use of cane and/or walker for steadiness and fall prevention 02/26/2025 Acute pain of left wrist (ICD-10 - M25.532) will check for gout; wrist splint; orthoped referral 02/26/2025 Chronic respiratory failure with hypoxia (ICD-10 - J96.11) 02/26/2025 BMI 24.0-24.9, adult (ICD-10 - Z68.24) Plan Of Treatment Treatment Notes Assessment Notes Acute pain of left knee discussed xray, MRI and orthoped referral; will do [id number] at [facility]; she staes they always do Xray and can scheduled MRI if needed; encouraged use of cane and/or walker for steadiness and fall prevention Acute pain of left wrist will check for gout; wrist splint; orthoped referral Referrals Referral Date Details 02/26/2025 02/26/2025, . Orthop edics Next Appt Details Follow Up: prn, Reason: Progress Notes * BURT DORANOB:[birth year] (69 yo F)Acc No.[id number]:02/26/2025 Progress Notes Patient: WENDY ESCAMILLA Provider: FAWN Wise :1955 A ge:69 Y S ex:Female Date:02/26/2025 Address:[address] [place] [address] , [place], [place] Pcp:Jeyson Benitez Subjective: * Chief Complaints: * 1 . Arm & leg pain. * HPI: K nee/Ball: 69 year old female presents with c/o knee pain P t states she is having knee pain. Pt states this stared Wednesday. Pt states she does not know what caused it, left side, hurts to walk. c/o swelling. c/o sensation of knee giving out. Denies : redness. D enies : Fall. W rist/Hand: c/o pain P t states she been having wrist pain. Pt states this stared Wednesday. c/o radiation of pain. c/o swelling. c/o redness i nitially. c/o Weakness. Denies : Previous Injury. D enies : fall. * ROS: D ERMATOLOGY: no R chanell. n o H sherrie. G ASTROENTEROLOGY: no N ausea. n o V omiting. n o D iarrhea.? U ROLOGY: no D ifficulty urinating. n o B lood in urine. 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 Cath showed on [...] * Hospitalization/Major Diagno stic Procedure: [facility] ER-diarrhea 03/2011, [facility]-back pain 06/2012, [facility]-heart attack 12/31/2014, [place] ER-constipation/impaction 09/2015, [place] ER-diarrhea 11/2015, [place] ER-Bronchitis 03/2018, Drs office in [place]-possible UTI, tested negative 12/2019. * Family History: F ather: . M other: alive. 2 brother(s) , 1 sister(s) . 1 son(s) , 1 daughter(s) . . * Social History: C URRENT TOBACCO USE S moking Status: P atient does NOT smoke quit after NC 12/2014.?Caffeine: yes, frequency:. Home smoke detector use: [...] with food Orally Once a day , Taking Macrobid 100 MG Capsule 1 capsule with food Orally every 12 hrs , Taking oxyBUTYnin Chloride ER 10 MG Tablet Extended Release 24 Hour 1 tablet Orally Once a day , Medication List reviewed and reconciled with the patient * Allergies: P enicillin: anaphylaxis, Savella: memory loss and excessive drowsiness, Indomethacin: disoriented. Objective: * Vitals: W t: 144.4, Temp: 97.8, BP: 116/60, HR: 70, Nurse: pe, Ht: 65, BMI:24.03. * Examination: G eneral Examination: General Appearance: N AD, appears healthy, alert, pleasant.?Heart: R RR. L ungs: C TAB A&P. W rist / Hand: Wrist/Hand: l eft wrist. I nspection: c irculation intact. R anika of motion: r estricted, painful movements. P alpation: s oft 1 cm mass inner wrist; tender. K nee / Ball: Knee: l eft. I nspection: e ffusion: mild. P alpation: A nterial tenderness. R anika of motion: r estricted on extension, restricted flexion beyond 90 degrees. L eg examination: B louisa's cyst. w alking with a decided limp. Assessment: * Assessment: 1. A cute pain of left knee - M25.562 (Primary) 2 . A cute pain of left wrist - M25.532 3 . C hronic respiratory failure with hypoxia - J96.11 ?4. B NC 24.0-24.9, adult - Z68.24 Plan: * Treatment: Value Reference Range U j carlos Acid 3.5 2.4-7.0 - mg/dL * Marlena Antonio 02/27/2025 02:33:11 PM EDT >I spoke with pt and reported results ?LAB: CBC Venipuncture (in house) (Collection Date & Time - 02/26/2025)* Value Reference Range w bc 6.7 3.5 - 10 * l ymph 24.9% 15 - 50 * m id 7.6% 2 - 15 * g ran 67.5 35 - 80 * r bc 4.33 3.5 - 5.5 * h gb 13.2 11.5 - 16.5 * h ct 39.6 35 - 55 * m cv 91.3 75 - 100 * m ch 30.6 25 - 35 * m chc 33.4 31 - 38 * p latlet 255 100 - 400 * Verónica Johnson 02/26/2025 1 2:48:57 PM EDT >Paco Marlena 02/27/2025 02:33:47 PM EDT > Notes: discussed xray, MRI and orthoped referral; will do e5lmfslt at [facility]; she staes they always do Xray and can scheduled MRI if needed; encouraged use of cane and/or walker for steadiness and fall prevention?&#160 ;? Referral To:. Orthopedics??Orthopedic Surgery ?Reason: 2.?Acute pain of left wrist?LAB: CBC Venipuncture (in house) (Collection Date & Time - 02/26/2025)* Value Reference Range w bc 6.7 3.5 - 10 * l ymph 24.9% 15 - 50 * m id 7.6% 2 - 15 * g ran 67.5 35 - 80 * r bc 4.33 3.5 - 5.5 * h gb 13.2 11.5 - 16.5 * h ct 39.6 35 - 55 * m cv 91.3 75 - 100 * m ch 30.6 25 - 35 * m chc 33.4 31 - 38 * p latlet 255 100 - 400 * Verónica Johnson 02/26/2025 1 2:48:57 PM EDT >Marlena Antonio 02/27/2025 02:33:47 PM EDT > Notes: will check for gout; wrist splint; orthoped referral?? * Procedure Codes: G 2211 Complex e/[place] [address] CBC WITH AUTO DIFF, 1036F TOBACCO NON-USER, G8783 BP SCR PRFRM RCMDD DEFIND SCR INTVL, G8752 MOST RECENT SYSTOLIC BP < 140MM HG, G8754 MOST RECENT DIASTOLIC BP < 90MM HG, G8420 BMI<30 AND >=22 CALC & DOCU * Follow Up: p rn * Images: Drawing:[facility] addendum 2024 Billing Information: * Visit Code: 03493 Office Visit, Est Pt., Level 3. * Procedure Codes: G2211 Complex e/[place]. [address] CBC WITH AUTO DIFF. 1036F TOBACCO NON-USER. G8783 BP SCR PRFRM RCMDD DEFIND SCR INTVL. G8752 MOST RECENT SYSTOLIC BP < 140MM HG. G8754 MOST RECENT DIASTOLIC BP < 90MM HG. G8420 BMI<30 AND >=22 CALC & DOCU. * Electronic signature of Rosa Antonio APRN on 05/30/2025 at 01:52 PM EST Sign off status: Pending * Provider: FAWN Wise Date: 0 02/26/2025 Generated for Elkin castillo/Aram/Clem on: 1 07/30/2024 01:52 PM EST History and Physical Notes * HPI (History of Present Illness) Category Sub-Category Detail Notes Category Not es Knee/Ball Fall knee pain Pt states she is hav ing knee pain. Pt states this stared Wednesday. Pt states she does not know what caused it, left side, hurts to walk sensation of knee giving out swelling redness Wrist/Hand fall Previous Injury redness initially pain Pt states she been h aving wrist pain. Pt states this stared Wednesday swelling radiation of pain Weakness Examination Category Sub-Category Detail Notes Category Not es General Examination Heart: RRR Lungs: CTAB A&P General Appearance: NAD, appears healthy , alert, pleasant Knee / Ball Palpation: Anterial tenderness walking with a decided limp Knee: left Inspection: effusion: mild Range of motion: restricted on extens ion, restricted flexion beyond 90 degrees Leg examination: Jimenez's cyst Wrist / Hand Inspection: circulation intact Wrist/Hand: left wrist Range of motion: restricted, painful movements Palpation: soft 1 cm mass inner wrist; tender Consultation Request Notes Referral Date Referring Provider Referred Provider Not es 02/26/2025 Marlena Antonio Orthopedics, .
--- OUTSIDE RECORDS SUMMARY | 2025-05-07 05:15 | XMS_ITS ---
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 Name Role Phone Jeyson Benitez Primary Care Provider Sang Regan [phone] Allergies Allergen (clinical drug ingredient) Drug/Non Drug [...] 100 MG TAKE 1 TABLET BY MO [facility] ONCE DAILY AT BEDTIME; Duration: 90 Active Vital Signs Weight 148.8 lbs 05/07/2025 Blood pressure systolic 116 mm Hg 05/07/20 25 Blood pressure diastolic 68 mm Hg 025 Heart Rate 74 /min 05/07/2025 Height 65 in 05/07/2025 BMI 24.76 kg/m2 05/07/2025 Encounters Encounter Location Date Provider Diagnosis [facility] [facility] [address] [place] [phone] 05/07/2025 Sang Regan Acute bronchitis, unspecified organism [...] * BURT DORANOB:[birth year] (69 yo F)Acc No.[id number]:05/07/2025 Progress Notes Patient: WENDY ESCAMILLA Provider: Jefferson Regan M.D. :1955 A ge:69 Y S ex:Female Date:05/07/2025 Address:[address] [place] [address] , [id number] Pcp:Jeyson Benitez Subjective: * [...] benzonatate, prednisone and Z-Carlos on 04/28 by [facility]. c/o Short of Breath with exertion. c/o headache p ressure like sensation. c/o chest congestion w ith production of sputum. 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 Cath showed on [...] Ball 11/2020. * Hospitalization/Major Diagno stic Procedure[facility], [facility] ER-back pain 06/2012, [facility]-heart attack 12/31/2014, [place] ER-constipation/impaction 09/2015, [place] ER-diarrhea 11/2015, [place] ER-Bronchitis 03/2018, Drs office in [place]-possible UTI, tested negative 12/2019. * Family History: F ather: . M other: alive. 2 brother(s) , 1 sister(s) . 1 son(s) , 1 daughter(s) . . * Social History: C URRENT TOBACCO USE: No S moking Status: P atient does NOT smoke quit after [place] 12/2014. C affeine: yes, frequency:. Home smoke [...] * Images: Billing Information: * Visit Code: 73895 Office Visit, Est Pt., Level 3. * Procedure Codes: G2211 Complex e/m visit add on. * Electronic signature of Bernadette Regan MD on 05/30/2025 at 01:54 PM EST Sign off status: Pending * Provider: Jefferson Regan M.D. Date: Generated for Elkin castillo/Aram/Saritasmitting on: 07/30/2024 01:54 PM EST History and Physical Notes * [...] benzonatate, prednisone and Z-Carlos on 04/28 by [facility] headache pressure like sensat ion chest congestion [...]
--- OUTSIDE RECORDS SUMMARY | 2025-05-10 11:15 | XMS_ITS ---
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8 35 - 80 rbc 4.91 3.5 - 5.5 hgb 15.0 11.5 - 16.5 hct 45.1 35 - 55 mcv 91.8 75 - 100 mch 30.7 25 - 35 mchc 33.4 31 - 38 plat 234 100 - 400 TEN-Upper Respiratory PCR Reviewed date:05/16/2025 12:37:43 PM Interpretation:Negative Performing Lab: Notes/Report: Negative REASON FOR VISIT not feeling better Medications Medication SIG (Take, Route, Frequency, Duration) Notes Start Date End Date Status Aspirin 81 MG 1 tab(s) orally once a day; Duration: 30 day(s) Active Prolia 60 MG/ML as directed subcutaneously every 6 months; Duration: 12 month(s) Active hydrOXYzine HCl 10 MG as directed [...] Once a day; Duration: 30 day(s) Active Linzess 290 MCG 1 capsule at least 3 0 minutes before the first meal of the day on an empty stomach Orally Once a day; Duration: 30 day(s) Active Doxycycline Hyclate 100 MG 1 capsule Orally Once a day Active Hycodan 5-1.5 MG 1 tablet as needed Orally every 6 hrs Active Baclofen 10 MG 1 tablet as needed Orally Twice a day Active Flonase Allergy Relief 50 MCG/ACT 1 spray in each nostril Nasally Twice a day Active Macrobid 100 MG 1 capsule with food Orally every 12 hrs 02/22/2025 Not-Taking oxyBUTYnin Chloride ER 10 MG 1 tablet Orally Once a day; Duration: 90 days Active Pantoprazole Sodium 40 MG 1 tablet 1/2 to 1 hour before meals Orally twice a day; Duration: 90 days Active SUMAtriptan Succinate 50 MG 1 tablet as needed, may take second dose at least 2 hours after first dose up to 2 tablets per day as needed Orally Active Montelukast Sodium 10 MG 1 tablet Orally Once a day; Duration: 90 days Active Macrodantin 100 MG 1 capsule at bedtime with food or milk Orally twice a day; Duration: 10 days 01/16/2025 Not-Taking Venlafaxine HCl ER 225 MG 1 tablet with food Orally Once a day; Duration: 90 days Active Ezetimibe 10 MG 1 tablet Orally Once a day; Duration: 90 days Active lamoTRIgine 150 MG TAKE 1 TABLET BY TWICE DAILY; Duration: 90 Active Estrace 0.1 MG/GM 1 gm Vaginal 3 times per week 07/13/2024 Active Atorvastatin Calcium 20 MG TAKE 1 TABLET BY MOUTH ONCE DAILY; Duration: 90 days Active Calcium Citrate 150 MG 2 capsules Orally Once a day; Duration: 90 days Active traZODone HCl 100 MG TAKE 1 TABLET BY [facility] ONCE DAILY AT BEDTIME; Duration: 90 Active Vital Signs Blood pressure systolic 120 mm Hg 05/10/20 Blood pressure diastolic 60 mm Hg Heart Rate 74 /min 05/10/2025 Height 65 in 05/10/2025 Weight 148.4 lbs 05/10/2025 BMI 24.69 kg/m2 05/10/2025 Encounters Encounter Location Date Provider Diagnosis [facility] [facility] [address] [facility] [address] [place] [phone] 05/10/2025 China Sánchez Acute bronchitis, unspecified organism J20.9 Assessments Encounter Date Diagnosis (ICD Code) Assessment Notes Treatment Notes Treatment Clinical Notes Section Notes 05/10/2025 Acute bronchitis, unspecified organism (ICD-10 - J20.9) Plan Of Treatment Medication Medication Name Sig Start Date Stop Date Notes Doxycycline Hyclate 100 MG 1 capsule Orally Once a day Hycodan 5-1.5 MG 1 tablet as needed O rally every 6 hrs Pending Test Test Name Order Date H-Sputum Culture with Gram Stain 025 Next Appt Details Follow Up: via phone to repo rt test results, Reason: Progress Notes * BURT DORANOB:[birth year] (69 yo F)Acc No.[id number]:05/10/2025 Progress Notes Patient: WENDY ESCAMILLA Provider: RANI Dumont :1955 A ge:69 Y S ex:Female Date:05/10/2025 Address:[address] [place] [address] , [id number] Pcp:Jeyson Benitez Subjective: * Chief Complaints: * 1 . Not feeling better. * HPI: E NT/respiratory: 69 year old female presents with c/o sore throat. c/o cough. c/o nasal congestion P t sts she has had 2 rounds of antibiotics and sts nothing has helped. Pt sts Wednesday she started out at [facility] and then saw Dr. Regan Wednesday or Wednesday and sts she has continued with a cough and sore throat, yellow drainage. * ROS: D ERMATOLOGY: no R chanell. n o H sherrie. G ASTROENTEROLOGY: no N ausea. n o V omiting. n o D iarrhea.? U ROLOGY: no D ifficulty urinating. n o B lood in urine. 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 Cath showed on [...] Ball 11/2020. * Hospitalization/Major Diagno stic Procedure: [facility] ER-diarrhea 03/2011, [facility] ER-back pain 06/2012, [facility]-heart attack 12/31/2014, [place] ER-constipation/impaction 09/2015, [place] ER-diarrhea 11/2015, [place] ER-Bronchitis 03/2018, Drs office in [place]-possible UTI, tested negative 12/2019. * Family History: F ather: . M other: alive. 2 brother(s) , 1 sister(s) . 1 son(s) , 1 daughter(s) . . * Social History: C URRENT TOBACCO USE: No S moking Status: P atient does NOT smoke quit after [place] 12/2014. C affeine: yes, frequency:. Home smoke [...] before meals Orally twice a day , Taking Hycodan 5-1.5 MG Tablet 1 tablet as needed Orally every 6 hrs , Taking Doxycycline Hyclate 100 MG Capsule 1 capsule Orally Once a day , Not-Taking Macrodantin 100 MG Capsule 1 capsule at bedtime with food or milk Orally twice a day , Not-Taking Macrobid 100 MG Capsule 1 capsule with food Orally every 12 hrs , Medication List reviewed and reconciled with the patient * Allergies: P enicillin: anaphylaxis, Savella: memory loss and excessive drowsiness, Indomethacin: disoriented. Objective: * Vitals: W t: 148.4, Temp: 97.7, BP: 120/60, HR: 74, O2 Sat: 94% on RA, Nurse: rafaela, Ht: 65, BMI:24.69. * Examination: E NT/Respiratory: General Appearance: N [...] * Treatment: Value Reference Range w bc 15.1 3.5 - 10 * l ym 13.7 15 - 50 * m id 3.5 2 - 15 * g ran 82.8 35 - 80 * r bc 4.91 3.5 - 5.5 * h gb 15.0 11.5 - 16.5 * h ct 45.1 35 - 55 * m cv 91.8 75 - 100 * m ch 30.7 25 - 35 * m chc 33.4 31 - 38 * p lat 234 100 - 400 * Miranda Carrizales 05/10/2025 04: 25:40 PM EDT > Provider reviewed results while patient in office. ?LAB: TEN-Upper Respiratory PCR (Collection Date & Time - 05/10/2025)? Negative* Shantal Bain 05/16/2025 12: 37:28 PM EST > pt informed * Procedure Codes: 3 6416 CAPILLARY BLOOD DRAW, 55636 CBC WITH AUTO DIFF * Follow Up: v ia phone to report test results * Images: Billing Information: * Visit Code: 55519 Office Visit, Est Pt., Level 3. * Procedure Codes: 67151 CAPILLARY BLOOD DRAW. 66177 CBC WITH AUTO DIFF. * Electronic signature of RANI Umanzor on 05/30/2025 at 01:52 PM EST Sign off status: Pending * Provider: RANI Dumont Date: Generated for Elkin castillo/Aram/eTransmitting on: 07/30/2024 01:52 PM EST History and Physical Notes * HPI (History of Present Illness) Category Sub-Category Detail Notes Category Not es ENT/respiratory sore throat cough nasal congestion Pt sts she has had 2 rounds of antibiotics and sts nothing has helped. Pt sts Wednesday she started out at [facility] and then saw Dr. Regan Wednesday or Wednesday and sts she has continued with a cough and sore throat, yellow drainage Examination Category Sub-Category Detail Notes Category Not es ENT/Respiratory Oral cavity : erythema without exudate on pharynx Neck : no cervical lymphade nopathy Heart : RRR, normal S1 S2 Lungs: good air movement, c oarse breath sounds due to upper airway congestion General Appearance: NAD, coughing Eyes: PERRLA, sclera clear
--- OUTSIDE RECORDS SUMMARY | 2025-05-15 09:30 | XMS_ITS ---
Author Organization [facility] Address [address] [facility] [address] [place] [id number] Care Team Providers Care Wafer Cleaner Name Role Phone Jeyson Benitez Primary Care Provider [phone] Allergies Allergen (clinical drug ingredient) Drug/Non Drug Allergy documented on EMR Reaction Allergy Type Onset Date Status indomethacin Indomethacin disoriented Drug Allergy Active milnacipran Savella memory loss and excessive drowsiness Drug Allergy Active Penicillin anaphylaxis Drug Allergy Acti ve Results Component Value Reference Range Notes CBC Fingerstick (in house) Reviewed date:05/16/2025 07:39:33 PM Interpretation: Performing Lab: Notes/Report: wbc 12.5 3.5 - 10 lym 20.7% 15 - 50 mid 6.6% 2 - 15 gran 72.7% 35 - 80 rbc 4.89 3.5 - 5.5 hgb 14.9 11.5 - 16.5 hct 44.9 35 - 55 mcv 91.7 75 - 100 mch 30.5 25 - 35 mchc 33.2 31 - 38 plat 325 100 - 400 CXR Reviewed date:05/17/2025 08:52:40 AM Interpretation:no pneumonia Performing Lab: Notes/Report: no pneumonia REASON FOR VISIT congestion, cough Medications Medication SIG (Take, Route, Frequency, Duration) Notes Start Date End Date Status Flonase Allergy Relief 50 MCG/ACT 1 spray in each nostril Nasally Twice a day Active Ibsrela 50 MG 1 tablet Orally at b ed time Active levoFLOXacin 750 MG 1 tablet Orally Once a day 05/15/2025 Active Hycodan 5-1.5 MG 1 tablet as needed Orally every 6 hrs Active Macrodantin 100 MG 1 capsule at bedtime with food or milk Orally twice a day; Duration: 10 days 01/16/2025 Not-Taking Macrobid 100 MG 1 capsule with food [...] to 2 tablets per day as needed Orally; Duration: 30 days Active Atorvastatin Calcium 20 MG TAKE 1 TABLET BY MOUTH ONCE DAILY; Duration: 90 days Active lamoTRIgine 150 MG [facility]; Duration: 90 Active Ezetimibe 10 MG 1 tablet Orally Once a day; Duration: 90 days Active Venlafaxine HCl ER 225 MG 1 tablet with food Orally Once a day; Duration: 90 days Active oxyBUTYnin Chloride ER 10 MG 1 tablet Orally Once a day; Duration: 90 days Active traZODone HCl 100 MG TAKE 1 TABLET BY [facility] ONCE DAILY AT BEDTIME; Duration: 90 Active Estrace 0.1 MG/GM 1 gm Vaginal 3 times per week 07/13/2024 Active Isosorbide Dinitrate 30 MG 1 tablet Orally once daily; Duration: 90 days Active hydrOXYzine HCl 10 MG as directed Orally Two times a day; Duration: 90 days Active Calcium Citrate 150 MG 2 capsules Orally Once a day; Duration: 90 days Active Multivitamin - 1 [...] the evening Orally Once a day Active Linzess 290 MCG 1 capsule at least 3 0 minutes before the first meal of the day on an empty stomach Orally Once a day; Duration: 30 day(s) Active Vitamin D3 50 MCG (2000 UT) 1 tablet Orally Once a day; Duration: 30 day(s) Active Nitroglycerin 0.4 MG 1 tab(s) sublingual ly q 5min prn x 3 Active Baclofen 10 MG 1 tablet as needed Orally Twice a day Active Vital Signs Blood pressure systolic 104 mm Hg 05/15/20 25 Blood pressure diastolic 70 mm Hg 025 Heart Rate 67 /min 05/15/2025 Height 65 in 05/15/2025 Weight 143.6 lbs 05/15/2025 BMI 23.89 kg/m2 05/15/2025 Encounters Encounter Location Date Provider Diagnosis [facility] [address] [facility] [address] [facility] [address] [place] [phone] 05/15/2025 Jeyson Benitez Acute bronchitis, unspecified organism J20.9 Assessments Encounter Date Diagnosis (ICD Code) Assessment Notes Treatment Notes Treatment Clinical Notes Section Notes 05/15/2025 Acute bronchitis, unspecified organism (ICD-10 - J20.9) Plan Of Treatment Medication Medication Name Sig Start Date Stop Date Notes levoFLOXacin 750 MG 1 tablet Orally Once a day 05/15/2025 Hycodan 5-1.5 MG 1 tablet as needed Orally every 6 hrs Next Appt Details Follow Up: via phone to repo rt test results, Reason: Progress Notes * BURT DORANOB:[birth year] (69 yo F)Acc No.[id number]:05/15/2025 Progress Notes Patient: MARIA ISABEL ESCAMILLA Provider: Jeyson Benitez M.D. :1955 A ge:69 Y S ex:Female Date:05/15/2025 Address:[address] [place] [address] , [id number] Subjective: * Chief Complaints: * 1 . Congestion, cough. * HPI: E NT/respiratory: Maria Isabel returns with persistent, unrelenting cough that is unrelieved with Promethazine DM or Hycodan. Cough had been productive but is now mostly dry. No hemoptysis. No fever or pleuritic pain. She had initially completed a course of Zithromax and a Medrol Dosepak and has most recently completed a course of doxycycline with no improvement. * ROS: D ERMATOLOGY: no R chanell. [...] Diagno stic Procedure: [facility] ER-diarrhea 03/2011, [facility] ER-back pain 06/2012, [facility]-heart attack 12/31/2014, [place] ER-constipation/impaction 09/2015, [place] ER-diarrhea 11/2015, [place] ER-Bronchitis 03/2018, Drs office in [place]-possible UTI, tested negative 12/2019. * Family History: F ather: . M other: alive. 2 brother(s) , 1 sister(s) . 1 son(s) , 1 daughter(s) . . * Social History: C URRENT TOBACCO USE: No S moking Status: P atient does NOT smoke quit after [place] 12/2014. C affeine: yes, frequency:. Home smoke detector use: yes. Marital Status: . 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 Past smoking status: PPD: 1, years:30 ,determination:. Alcohol: no. * Medications: T aking Ibsrela 50 MG Tablet 1 tablet Orally at bed time , Taking Flonase Allergy Relief 50 MCG/ACT [...] tablet Orally Once a day , Taking Pantoprazole Sodium 40 MG Tablet Delayed Release 1 tablet 1/2 to 1 hour before meals Orally twice a day , Taking SUMAtriptan Succinate 50 MG Tablet 1 tablet as needed, may take second dose at least 2 hours after first dose up to 2 tablets per day as needed Orally , Taking Hycodan 5-1.5 MG Tablet 1 tablet as needed Orally every 6 hrs , Not-Taking Macrodantin 100 MG Capsule 1 capsule at bedtime with food or milk Orally twice a day , Not-Taking Macrobid 100 MG Capsule 1 capsule with food Orally every 12 hrs , Discontinued Doxycycline Hyclate 100 MG Capsule 1 capsule Orally Once a day , Medication List reviewed and reconciled with the patient * Allergies: P enicillin: anaphylaxis, Savella: memory loss and excessive drowsiness, Indomethacin: disoriented. Objective: * Vitals: W t: 143.6, Temp: 98.4, BP: 104/70, HR: 67, O2 Sat: 97% on RA, Nurse: CARLOS, Ht: 65, BMI:23.89. * Examination: G eneral Examination: General Appearance: N oted with dry cough. No respiratory distress. H EENT: M ild nasal congestion, otherwise unremarkable. H eart: R SR.?Lungs: G enerally diminished breath sounds but no rales or wheezes. Assessment: * Assessment: 1. A cute bronchitis, unspecified organism - J20.9 (Primary) Plan: * Treatment: * Imaging: * I maging: CXR (Performed Date - 05/15/2025) n o pneumonia * Labs: * L ab: CBC Fingerstick (in house) (Collection Date & Time - 05/15/2025) Value Reference Range w bc 12.5 3.5 - 10 * l ym 20.7% 15 - 50 * m id 6.6% 2 - 15 * g ran 72.7% 35 - 80 * r bc 4.89 3.5 - 5.5 * h gb 14.9 11.5 - 16.5 * h ct 44.9 35 - 55 * m cv 91.7 75 - 100 * m ch 30.5 25 - 35 * m chc 33.2 31 - 38 * p lat 325 100 - 400 * Cathi Hliton 05/15/2025 03 :03:57 PM EST > Provider reviewed results while patient in office. * Procedure Codes: 3 6416 CAPILLARY BLOOD DRAW, 50452 CBC WITH AUTO DIFF * Follow Up: v ia phone to report test results * Images: Billing Information: * Visit Code: 81506 Office Visit, Est Pt., Level 3. * Procedure Codes: 33410 CAPILLARY BLOOD DRAW. 15140 CBC WITH AUTO DIFF. * Electronic signature of Jeyson Benitez MD on 05/30/2025 at 01:53 PM EST Sign off status: Pending * Provider: Jeyson Benitez M.D. Date: 07/15/2024 Generated for Elkin castillo/Arma/Clem on: 07/30/2024 01:53 PM EST History and Physical Notes * Examination Category Sub-Category Detail Notes Category Not es General Examination HEENT: Mild nasal c ongestion, otherwise unremarkable Heart: RSR Lungs: Generally diminished breath sounds but no rales or wheezes General Appearance: Noted with dry cough . No respiratory distress
--- OUTSIDE RECORDS SUMMARY | 2025-05-21 05:15 | XMS_ITS ---
Author [facility] Address [address] [facility] [address] [place] [phone] Care Team Providers Care Dairy Husbandry Worker Name Role Phone Jeyson Benitez Primary Care Provider Marlena Antonio Unavailable [phone] Allergies Allergen (clinical drug ingredient) Drug/Non Drug [...] - 38 plat 230 100 - 400 X ray : ribs right Reviewed date:05/22/2025 [...] lamoTRIgine 150 MG [facility] TW[facility]; Duration: 90 Active Atorvastatin Calcium [...] HCl 100 MG TAKE 1 TABLET BY [facility] ONCE DAILY AT BEDTIME; Duration: 90 [...] Orally Once a day Active Vital Signs Blood pressure systolic 110 mm Hg 05/21/20 25 Blood pressure diastolic 72 mm Hg 025 Heart Rate 69 /min 05/21/2025 Height 65 in 05/21/2025 Weight 145 lbs 05/21/2025 BMI 24.13 kg/m2 05/21/2025 Encounters Encounter Location Date Provider Diagnosis [facility] [address] [place] Khan [phone] 05/21/2025 Marlena Antonio Anterior chest wall pain [...] long as cough is frequent and persistent Mario Antonioine 05/21/2025 03:14:09 PM EST >I reviewed CTA [...] long as cough is frequent and persistent AntonioNandini hilarioMarlena 05/21/2025 03:14:09 PM EST >I reviewed CTA results with pt; Fx of the 7th rib; NO PE or pneumothorax Pending Test Test Name Order Date CXR 05/21/2025 Next Appt Details Follow Up: FU via phone afte r tests completed, Reason: Progress Notes * BURT DORANOB:[birth year] (69 yo F)Acc No.[id number]:05/21/2025 Progress Notes Patient: WENDY ESCAMILLA Provider: FAWN Wise :1955 A ge:69 Y S ex:Female Date:05/21/2025 Address:[address] [place] [address] [id number] Pcp:Jeyson Benitez Subjective: * Chief [...] Ball 11/2020. * Hospitalization/Major Diagno stic Procedure: [facility] ER-diarrhea 03/2011, [facility] ER-back pain 06/2012, [facility]-heart attack 12/31/2014, [place] ER-constipation/impaction 09/2015, [place] ER-diarrhea 11/2015, [place] ER-Bronchitis 03/2018, Drs office in [place]-possible UTI, tested negative 12/2019. * Family History: F ather: . M other: alive. 2 brother(s) , 1 sister(s) . 1 son(s) , 1 daughter(s) . . * Social History: C URRENT TOBACCO USE: No S moking Status: P atient does NOT smoke quit after [place] 12/2014. C affeine: yes, frequency:. Home smoke [...] > Provider reviewed results while patient in office.Marlean Antonio 05/21/2025 01:22:17 PM EST > ?Imaging: CXR ?Imaging: X ray : ribs right (Performed Date - 05/21/2025)?Negative Notes: Discussed with radiology and will do [...] NO PE or pneumothorax?? * Procedure Codes: 3 6416 CAPILLARY BLOOD DRAW, 77350 CBC WITH AUTO DIFF * Follow Up: F U via phone after tests completed * Images: Billing Information: * Visit Code: 78408 Office Visit, Est Pt., Level 4. * Procedure Codes: 22196 CAPILLARY BLOOD DRAW. 28983 CBC WITH AUTO DIFF. * Electronic signature of Rosa Antonio APRN on 05/30/2025 at 01:53 PM EST Sign off status: Pending * Provider: FAWN Wise Date: 07/21/2024 Generated for Elkin castillo/Aram/Clem on: 07/30/2024 01:53 PM EST History and [...]
[2025-05-30 13:17] VITALS: BP 101/67; PULSE 76; RESP 20; TEMP 36.4; O2SAT 95
[2025-05-30] MEDS: DENOSUMAB 60 MG/ML SYRINGE SUBCUT (13:17)
--- OUTSIDE RECORDS SUMMARY | 2025-05-30 13:52 | XMS_ITS | Patient Health Record ---
[facility] [address] [facility] [address] [place] [id number] Care Team Providers Care Multimedia Educational Specialist Name Role Phone Jeyson Benitez Primary Care Provider [phone] Sang Regan Unavailable [phone] Marlena Antonio Unavailable [phone] Work In, Schedule Unavailable Unavailable China Sánchez Unavailable [phone] Allergies Allergen (clinical drug ingredient) Drug/Non Drug Allergy documented on EMR Reaction Allergy Type Onset Date Status indomethacin Indomethacin disoriented Drug Allergy Active milnacipran Savella memory loss and excessive drowsiness Drug Allergy Active Penicillin anaphylaxis Drug Allergy Acti ve Results Component Value Reference Range Notes CBC Fingerstick (in house) Reviewed date:08/28/2024 08:12:23 [...] - 38 plat 256 100 - 400 CXR Reviewed date:05/17/2025 08:52:40 AM Interpretation:no pneumonia Performing Lab: Notes/Report: no pneumonia P-Comprehensive Metabolic Pa suzanne (CMP) Reviewed date:06/29/2024 04:17:23 PM Interpretation:bun 28, alt 81, ast 51 Performing Lab: Notes/Report: Test performed by [facility], [facility] [address] [facility] , [address], [place] [address] Tim Parrish MD, Human Resource Manager CLIA: [id number] Sodium 139 135-145 mmol/L Potassium 4.9 3.5-5.3 [...] developed and its performance characteristics determined by [facility]. It has not been cleared or approved by the US Food and Drug Administration. This test was performed in a CLIA certified laboratory and is intended for clinical purposes. Performed By: [facility] [address] [place] [address] Human Resource Manager: Cesar Arnold MD, PhD CLIA Number: [id number] P-Folate Reviewed date:06/29/2024 04:17:23 PM Interpretation:Normal Performing Lab: Notes/Report: Test performed by [facility] [address] [place] [address] , [address], [place] [address] Tim Parrish MD, Human Resource Manager CLIA: [id number] Folate >20 >4.59 ng/mL P-Selenium, Serum/Plasma Reviewed [...] developed and its performance characteristics determined by [facility]. It has not been cleared or approved by the US Food and Drug Administration. This test was performed in a CLIA certified laboratory and is intended for clinical purposes. Performed By: [facility] [address] [place] [address] Human Resource Manager: Cesar Arnold MD, PhD CLIA Number: [id number] P-Ferritin Reviewed date:06/29/2024 04:17:23 PM Interpretation:Normal Performing Lab: Notes/Report: Test performed by [facility] [address] [place] [address] , [address], [place] [address] Tim Parrish MD, Human Resource Manager CLIA: [id number] Ferritin 25.1 13.0-301.0 ng/mL P-T4 Free (thyroxine) Reviewed date:06/29/2024 04:17:23 PM Interpretation:Normal Performing Lab: Notes/Report: Test performed by [facility], [address] [place] [address] Tim Parrish MD, Human Resource Manager CLIA: [id number] Thyroxine Free (free T4) 0.94 0.86-1.76 ng/dL P-Iron Binding Cap Reviewed date:06/29/2024 04:17:23 PM Interpretation:Normal Performing Lab: Notes/Report: Test performed by [facility] , [facility] [address] Tim Parrish MD, Human Resource Manager CLIA: [id number] Iron Binding Cap 344 250-450 ug/dL P-Iron Reviewed date:06/29/2024 04:17:23 PM Interpretation:Normal Performing Lab: Notes/Report: [facility] , [facility] [address] Tim Parrish MD, Human Resource Manager CLIA: [id number] Iron 99 37-145 ug/dL P-Lipid Panel Reviewed date:06/29/2024 04:17:23 PM Interpretation:Normal Performing Lab: Notes/Report: Test performed by [facility] [address] , [place] [address] Tim Parrish MD, Human Resource Manager CLIA: [id number] Cholesterol 125 <200 mg/dL Triglycerides 82 <150 [...] developed and its performance characteristics determined by [facility]. It has not been cleared or approved by the US Food and Drug Administration. This test was performed in a CLIA certified laboratory and is intended for clinical purposes. Performed By: [facility] [address] [place] [address] Human Resource Manager: Cesar Arnold MD, PhD CLIA Number: [id number] P-Prealbumin Reviewed date:06/29/2024 04:17:23 PM Interpretation:Normal Performing Lab: Notes/Report: Test performed by [facility], [address] , [place] [address] Tim Parrish MD, Human Resource Manager CLIA: [id number] Prealbumin 21.0 20.0-40.0 mg/dL P-TSH Reviewed date:06/29/2024 04:17:23 PM Interpretation:Normal Performing Lab: Notes/Report: Test performed by [facility] [address] [place] [address] Tim Parrish MD, Human Resource Manager CLIA: [id number] TSH 1.08 0.43-5.25 mU/L P-Vitamin A (Retinol), Serum Reviewed date:06/29/2024 04:17:23 PM Interpretation:Normal Performing Lab: Notes/Report: Test Cancelled Test Cancelled TNP - Incor rect Specimen. Unable to perform due to incorrect specimen submission P-Vitamin D 25-Hydroxy Reviewed date:06/29/2024 04:17:23 PM Interpretation:Normal Performing Lab: Notes/Report: Test performed by [facility] [address] [place] [address] Tim Parrish MD, Human Resource Manager CLIA: [id number] Vitamin D 25-Hydroxy 65.0 30.0-100.0 ng/mL Interpretation [...] analytical performance characteristics have been determined by [facility] [place]. It has not been cleared or approved by the U.S. Food and Drug Administration. This assay has been validated pursuant to the CLIA regulations and is used for clinical purposes. Test Performed By [facility] [place] , CLIA [id number] [facility] [address], Filipe Meier MD PhD Holter Monitor- 48 hour Reviewed date:08/15/2024 08:13:51 AM Interpretation:NSR Performing Lab: Notes/Report: NSR CBC Fingerstick (in house) Reviewed date:05/16/2025 07:39:33 [...] - 38 plat 325 100 - 400 CBC Fingerstick (in house) [...] Gluc neg CBC Fingerstick (in house) Reviewed date:07/13/2024 11:31:19 [...] Interpretation:Normal Performing Lab: Notes/Report: Test performed by [facility] [address] [place] [address] , [address], [place] [address] Tim Parrish MD, Human Resource Manager CLIA: [id number] Estimated Average Glucose (eAG) 108 Estimated Average [...] Interpretation:Normal Performing Lab: Notes/Report: Test performed by [facility] [address] [place], [place] [id number], [place] [address] Tim Parrish MD, Human Resource Manager CLIA: [id number] Percent Saturation 29 15-50 % Miscell Ref Lab Test Reviewed date:06/29/2024 10:43:23 AM Interpretation: Normal Performing Lab: Notes/Report: Test Cancelled Test Cancelled Other P-Hemoglobin A1C Reviewed date:06/29/2024 04:17:23 PM Interpretation:Normal Performing Lab: Notes/Report: Test performed by [facility] [address] [place] [address] [address], [place] [address] Tim Parrish MD, Human Resource Manager CLIA: [id number] Hemoglobin A1C 5.4 <5.7 % The following HbA1c ranges recommended by the [place] [employer] (ADA) may be used as an aid in the diagnosis of diabetes mellitus. HbA1c Suggested Diagnosis >=6.5% Diabetic 5.7% - 6.4% Pre-Diabetic <5.7% Non-Diabetic X ray : ribs right Reviewed date:05/22/2025 09:18:21 AM Interpretation:Negative Performing Lab: Notes/Report: Negative P-CBC with Diff plus Absolut e Counts Reviewed date:06/29/2024 04:17:23 PM Interpretation:Normal Performing Lab: Notes/Report: Test performed by [facility] [address] [place] [address] [address], [place] [address] Tim Parrish MD, Human Resource Manager CLIA: [id number] WBC 6.1 3.8-11.5 K/uL Red Blood Cell [...] Normal glycohemoglobin 5.3% 5 - 6.5 % H-CBC Reviewed date:01/04/2025 11:41:11 PM Interpretation: Performing [...] 149 on 01/04/25 CA 8.5 8.4-10.2 mg/dl TEN-Upper Respiratory PCR Reviewed date:05/16/2025 12:37:43 PM Interpretation:Negative Performing Lab: Notes/Report: Negative CBC Fingerstick (in house) Reviewed date:05/10/2025 04:37:51 [...] - 38 plat 234 100 - 400 P-Vitamin B1 (Thiamine), Ser um/Plasma, LC/MS/MS Reviewed date:06/29/2024 10:43:05 AM Interpretation: Performing Lab: Notes/Report: CBC Fingerstick (in house) Reviewed date:05/21/2025 01:22:17 [...] - 38 plat 230 100 - 400 CT Scan : Abdomen and pelvis with IV contrast only Reviewed date:03/08/2025 10:31:23 PM Interpretation:renal cyst; retained stool Performing Lab: Notes/Report: renal cyst; retained stool P-Vitamin B1 (Thiamine), Ser um/Plasma, LC/MS/MS Reviewed [...] developed and its performance characteristics determined by [facility]. It has not been cleared or approved by the US Food and Drug Administration. This test was performed in a CLIA certified laboratory and is intended for clinical purposes. Performed By: [facility] [address] [place] [address] Human Resource Manager: Cesar Arnold MD, PhD CLIA Number: [id number] H-BUN/CREAT Reviewed date:03/06/2025 02:28:19 PM Interpretation: Performing Lab: Notes/Report: BUN 32 7-17 mg/dl CREATT 0.80 0.52-1.04 mg/dl GFRAA 87 >60 ML/MIN EGFR 72 >60 ml/min H-BUN/CREAT Reviewed date:05/21/2025 01:21:46 PM Interpretation: Performing Lab: Notes/Report: BUN 31 7-17 mg/dl CREATT 0.90 0.52-1.04 mg/dl GFRAA 76 >60 ML/MIN EGFR 62 >60 ml/min CTA : Chest with PE Protocol Reviewed date:05/22/2025 09:17:39 AM Interpretation: Performing Lab: Notes/Report: CBC Fingerstick (in house) Reviewed date:10/19/2024 08:08:25 [...] - 38 plat 215 100 - 400 Influenza Screen (in house) [...] duplicate order Urinalysis - Inhouse Reviewed date:01/02/2025 10:42:44 AM Interpretation: Performing Lab: Notes/Report: Color/Clarity straw Leuk 1+ Nitrite positive Urobili 3.2 Protein 1+ pH 6.0 Blood trace-intact Sp. Gr. 1.010 Ketone neg Bili neg Gluc neg P-Culture, Urine Reviewed date:01/06/2025 08:21:23 PM Interpretation: Performing Lab: Notes/Report: Test performed by [facility] [address] [place] [address] , [address], [place] [address] Tim Parrish MD, Human Resource Manager CLIA: [id number] Specimen Source Urine - Void Culture, Urine See Below See Microbiol ogy Report Escherichia coli ESBL 50,000-100,000 CFU /ml Escherichia coli ESBL This isolate is a confirmed ESBL (Extended Spectrum Beta-Lactamase) lead producer and should be considered clinically resistant [...] date:01/03/2025 12:11:45 PM Interpretation: Performing Lab: Notes/Report: Urinalysis - Inhouse Reviewed date:01/16/2025 01:06:05 PM Interpretation: Performing Lab: Notes/Report: Color/Clarity yellow/clear Leuk Neg Nitrite Neg Urobili 3.2 Protein Neg pH 5.5 Blood Neg Sp. Gr. 1.010 Ketone Neg Bili Neg Gluc Neg P-Culture, Urine Reviewed date:01/18/2025 02:40:55 PM Interpretation: Performing Lab: Notes/Report: Test performed by [facility] [address] [place] [address] , [address], [place] [address] Tim Parrish MD, Human Resource Manager CLIA: [id number] Specimen Source Urine - Void Culture, Urine See Below Final Report : No Significant Growth Urinalysis - Inhouse Reviewed date:02/14/2025 09:38:34 AM Interpretation: Performing Lab: Notes/Report: Color/Clarity yellow/clear Leuk Trace Nitrite Neg Urobili 3.2 Protein Neg pH 5.5 Blood Neg Sp. Gr. 1.015 Ketone Neg Bili Neg Gluc Neg CT Scan : Abd & Pelvis w/o c ontrast Reviewed date:02/21/2025 11:03:18 AM Interpretation:indeterminate renal mass, moderate fecal impaction Performing Lab: Notes/Report: indeterminate renal mass, moderate fecal impaction CBC Venipuncture (in house) Reviewed date:02/27/2025 02:33:52 [...] Interpretation:3.5 Performing Lab: Notes/Report: Test performed by [facility] [address] [place] [address] , [address], [place] [address] Tim Parrish MD, Human Resource Manager CLIA: [id number] Uric Acid 3.5 2.4-7.0 mg/dL H-Culture, Blood Reviewed date:01/29/2025 05:09:23 PM Interpretation: [...] 88 74-100 mg/dl CA 8.4 8.4-10.2 mg/dl Medications Medication SIG (Take, Route, Frequency, Duration) Notes Start Date End Date Status Multivitamin - 1 tab(s) orally once a day w/ Iron Active lamoTRIgine 150 MG TAKE 1 TABLET BY TWICE DAILY; Duration: 90 Active Nitroglycerin 0.4 MG 1 tab(s) sublingual ly q 5min prn x 3 Active Atorvastatin Calcium 20 MG TAKE 1 TABLET BY MOUTH ONCE DAILY; Duration: 90 days Active Ezetimibe 10 MG 1 tablet Orally Once a day; Duration: 90 days Active Vitamin D3 50 MCG (1999 UT) 1 tablet Orally Once a day; Duration: 30 day(s) Active Estrace 0.1 MG/GM 1 gm Vaginal 3 times per week 07/13/2024 Active Baclofen 10 MG 1 tablet as needed Orally Twice a day Active traZODone HCl 100 MG TAKE 1 TABLET BY [facility] ONCE DAILY AT BEDTIME; Duration: 90 Active Flonase Allergy Relief 50 MCG/ACT 1 spray in each nostril Nasally Twice a day Active Calcium Citrate 150 MG 2 capsules Orally Once a day; Duration: 90 days Active Anoro Ellipta 62.5-25 MCG/ACT 1 puff Inhalation Once a day Not-Taking hydrOXYzine HCl 10 MG as directed Orally Two times a day; Duration: 90 days Active SUMAtriptan Succinate 50 MG 1 tablet as needed, may take second dose at least 2 hours after first dose up to 2 tablets per day as needed Orally; Duration: 30 days Active Trulance 3 MG 1 tablet Orally Once a day Active Isosorbide Dinitrate 30 MG 1 tablet Orally once daily; Duration: 90 days Active Pantoprazole Sodium 40 MG 1 tablet 1/2 to 1 hour before meals Orally twice a day; Duration: 90 days Active QUEtiapine Fumarate ER 200 MG 1 tablet in the evening Orally Once a day Active Montelukast Sodium 10 MG 1 tablet Orally Once a day; Duration: 90 days Active oxyBUTYnin Chloride ER 10 MG 1 tablet Orally Once a day; Duration: 90 days Active Aspirin 81 MG 1 tab(s) orally once a day; Duration: 30 day(s) Active Prolia 60 MG/ML as directed subcutaneously every 6 months; Duration: 12 month(s) Active Venlafaxine HCl ER 225 MG 1 tablet with food Orally Once a day; Duration: 90 days Active CareTouch CPAP & BIPAP Hose 1 DIRECTED Active Immunizations Vaccine Route Administration Date Status [...] W/U Status Risk Notes Problem Essential hypertension (59424238) Essential (primary) hypertension (I10) Active confirmed Problem History of circulatory system disease (549206553) History of ASCVD (Z86.79) Active confirmed Problem COPD - Chronic obstructive pulmonary disease (93097652) COPD (chronic obstructive pulmonary disease) (J44.9) Active confirmed Problem Acute exacerbation of chronic obstructive airways disease (564947317) COPD with exacerbation (J44.1) Active confirmed Problem Osteopenia (196744996) Osteopenia (M85.80) Active confirmed Problem Seasonal allergy (572978306) Seasonal allergies (J30.2) Active confirmed Problem Renal mass (531384946) Renal mass (N28.89) Active confirmed Problem Mixed anxiety and depressive disorder (871858211) Depression with anxiety (F41.8) Active confirmed Problem Overactive urinary bladder (disorder) (045815282) OAB (overactive bladder) (N32.81) Active confirmed Problem Memory loss (90224820) Memory loss (R41.3) Active confirmed Problem Fibromyalgia (186886902) Fibromyalgia (M79.7) Active confirmed Problem Vasomotor rhinitis (4620593) Vasomotor rhinitis (J30.0) Active confirmed Problem Chronic respiratory failure (19320539) Chronic respiratory failure with hypoxia (J96.11) Active confirmed Problem Irritable bowel syndrome with diarrhea (299870953) Irritable bowel syndrome with diarrhea (K58.0) Active confirmed Problem Migraine without aura, not refractory (136026577) Migraine without aura and without status migrainosus, not intractable (G43.009) Active confirmed Problem Atrophic vaginitis (91676664) Atrophic vaginitis (N95.2) Active confirmed Problem Sacroiliitis (14794257) Sacroiliitis (M46.1) Active confirmed Problem Dependence on supplemental oxygen (680222697060) Oxygen dependent (Z99.81) Active confirmed Problem Dyslipidemia (528887671) Dyslipidemia (E78.5) Active confirmed Problem Allergic rhinitis caused by pollen (50250519) Seasonal allergic rhinitis due to pollen (J30.1) Active confirmed Problem Degenerative disc disease (67531502) DDD (degenerative disc disease), lumbar (M51.36) Active confirmed Problem 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) Active confirmed Problem Malabsorption syndrome (96407503) Malabsorption due to intolerance, not elsewhere classified (K90.49) Active confirmed Problem Ex-tobacco user (finding) (285778184) Personal history of tobacco use (Z87.891) Active confirmed Problem Degeneration of thoracic intervertebral disc (12743011) DDD (degenerative disc disease), thoracic (M51.34) Active confirmed Vital Signs Heart Rate 69 /min 05/21/2025 Blood pressure diastolic 72 mm Hg 05/21/2025 Height 65 in 05/21/2025 Blood pressure systolic 110 mm Hg 05/21/2025 Weight 145 lbs 05/21/2025 BMI 24.13 kg/m2 05/21/2025 Encounters Encounter Location Date Provider Diagnosis [facility] [address] [place] [id number] 06/22/2024 R Foreing Benitez Fibromyalgia M79.7 ; Malabsorption due to intolerance, not elsewhere classified K90.49 ; Status post bariatric surgery Z98.84 ; Dyslipidemia E78.5 ; Vaginal yeast infection B37.31 and Hypoglycemia E16.2 [facility] [address] [facility] [address] [place], [place] [id number] 06/26/2024 Sang Charlotte Malabsorption due to intolerance, not elsewhere classified K90.49 [facility] [address] [facility] [address] [place] [id number] 07/13/2024 R Foreign Benitez URI (upper respirato ry infection) J06.9 and Atrophic vaginitis N95.2 [facility] [address] [facility] [address] [place] [id number] 07/25/2024 R Foreign Emmanuel Palpitations R00.2 [facility] [address] [place] [id number] 08/28/2024 Marlena Antonio Sinusitis J32.9 and Papules R23.8 [facility] [address] [place] [id number] 10/19/2024 R Foreign Emmanuel Acute bronchitis J20 .9 ; COPD (chronic obstructive pulmonary disease) J44.9 ; Dyslipidemia E78.5 ; Seasonal allergies J30.2 and BMI 24.0-24.9, adult Z68.24 [facility] [address] [facility] [address] [place] [id number] 12/29/2024 China Crowdy Hypoxia R09.02 ; Dysuria R30.0 ; Chills R68.83 and BMI 24.0-24.9, adult Z68.24 [facility] [address] [place] [id number] 12/30/2024 China Crowdy Dysuria R30.0 [facility] [address] [place] [id number] 01/02/2025 R Foreign Emmanuel Adult general medica l examination Z00.00 ; Flank pain, acute R10.10 ; Hematuria R31.9 ; Depression with anxiety F41.8 ; History of ASCVD Z86.79 ; Osteopenia M85.80 ; Personal history of tobacco use Z87.891 ; COPD (chronic obstructive pulmonary disease) J44.9 ; Essential (primary) hypertension I10 ; Seasonal allergies J30.2 ; Dyslipidemia E78.5 and BMI 24.0-24.9, adult Z68.24 [facility] [address] [facility] [address] [place] [id number] 01/04/2025 R Foreign Emmanuel Pyelonephritis N12 [facility] [address] [place] [id number] 01/16/2025 R Foreign Emmanuel Pyelonephritis N12 [facility] [address] [place], [place] [id number] 02/13/2025 R Foreign Emmanuel Pyelonephritis N12 [facility] [address] [place], [place] [id number] 02/22/2025 Schedule Work In [facility] [address] [place], [place] [id number] 02/26/2025 Marlena Antonio Acute pain of left k nee M25.562 ; Acute pain of left wrist M25.532 ; Chronic respiratory failure with hypoxia J96.11 and BMI 24.0-24.9, adult Z68.24 [facility] [address] [place], [place] [id number] 05/07/2025 Sang Charlotte Acute bronchitis, unspecified organism J20.9 [facility] [address] [place], [place] [id number] 05/10/2025 China Crowdy Acute bronchitis, unspecified organism J20.9 [facility] [address] [place], [place] [id number] 05/15/2025 R Foreign Emmanuel Acute bronchitis, unspecified organism J20.9 [facility] [address] [place] [id number] 05/21/2025 Marlena Antonio Anterior chest wall pain R07.1 [facility] [address] [place], [place] [id number] 06/29/2024 R Foreign Emmanuel [facility] [address] [place] [id number] 07/03/2024 R Foreign Emmanuel [facility] [address] [place] [id number] 08/15/2024 R Foreign Emmanuel [facility] [address] [place] [id number] 08/15/2024 R Foreign Emmanuel [facility] [address] [place] [id number] 08/17/2024 R Foreign Emmanuel Seasonal allergies J30.2 [facility] [address] [place] [id number] 10/31/2024 R Foreign Emmanuel [facility] [address] [place] [id number] 11/21/2024 R Foreign Emmanuel [facility] [address] [place] [id number] 01/02/2025 China Crowdy [facility] [address] [place] [id number] 01/02/2025 R Foreign Emmanuel [facility] [address] [place] [id number] 01/09/2025 R Foreign Emmanuel [facility] [address] [place] [id number] 01/18/2025 R Foreign Emmanuel [facility] [address] [place] [id number] 01/22/2025 R Foreign Emmanuel [facility] [address] [place] [id number] 02/21/2025 R Foreign Emmanuel Renal mass N28.89 [facility] [address] [place] [id number] 02/22/2025 R Foreign Emmanuel [facility] [address] [place] [id number] 03/08/2025 R Foreign Emmanuel [facility] [address] [place] [id number] 03/26/2025 R Foreign Emmanuel [facility] [address] [place] [id number] 04/19/2025 R Foreign Emmanuel [facility] [address] [place] [id number] 05/07/2025 R Foreign Emmanuel [facility] [address] [place] [id number] 05/11/2025 Jeyson Benitez [facility] [address] [facility] [address] [place] [id number] 05/11/2025 Sang [place] Acute bronchitis, unspecified organism J20.9 [facility] [address] [facility] [address] [place] [id number] 05/17/2025 Jeyson Benitez Assessments Encounter Date Diagnosis (ICD Code) Assessment Notes Treatment Notes Treatment Clinical Notes Section Notes 06/22/2024 Fibromyalgia (ICD-10 - M79.7) 06/22/2024 Malabsorption [...] oral antibiotics. Plan for direct admission to [facility] for IV fluids and IV antibiotics. 01/16/2025 [...] Acute bronchitis, unspecified organism (ICD-10 - J20.9) 05/21/2025 Anterior chest wall pain (ICD-10 - [...] the 7th rib; NO PE or pneumothorax 02/26/2025 Acute pain of left knee (ICD-10 - M25.562) discussed xray, MRI and orthoped referral; [id number] [...] Treatment Pending Test Test Name Order Date CXR 05/21/2025 H-Sputum Culture with Gram Stain 025 P-Comprehensive Metabolic Panel (CMP) P-Lipid Panel 09/21/2023 Insurance Providers Payer Name Payer Address Payer Phone Subscriber Number Group Number Insured Name Patient Relationship to Insured Coverage Start Date Coverage End Date MEDICARE PART B [address] [address] [place] [address] [id number] WENDY DORAN Self - patient is the insured [facility] [address] [place] [id number] WENDY DORAN Self - patient is the insured Medications Administered Medication Instructions Date of Administration Dosage Notes Dexamethasone 06/28/2018 1 mL Dexamethasone 05/02/2019 1 mL Dexamethasone 02/10/2022 1 mL Dexamethasone 06/09/2022 1 mL Phenergan 12.5 mgs. 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 Ca th showed [...] 12/2019 [facility]-Bronchitis 03/2018 [facility]-diarrhea 11/2015 [facility]-constipation/impaction 2015 [facility]-heart attack 12/31/2014 [facility] ER-back pain 06/2012 [facility] ER-diarrhea 03/2011
--- OUTSIDE RECORDS SUMMARY | 2025-05-30 13:55 | XMS_ITS | Clinical Summary ---
Author Organization [facility] Address [address] [place] [address] Care Team Providers Care Motor Vehicles Inspector Name Role Phone Saul Benitez MD Primary Care Provider [phone] Family History Medical History Relation Name Comments [...] of Treatment Not on file Care Teams Motor Vehicles Inspector Relationship Specialty Start Date End Date Saul Benitez MD [address] [place] [address] PCP - General 11/22/20
== END 2025-05-30 23:59 | disposition home or self-care (01) ==
LOC: INF 12:59
PROVIDERS: PCP Family Medicine; Visit Provider Nurse Practitioner Obstetrics & Gynecology
DX: M85.80 Other specified disorders of bone density and structure, unspecified site (principal)
CPT/HCPCS: 96372; J0897

== ENCOUNTER 2025-07-09 11:25 | Outpatient (CLI) | payer MEDICARE, SELFPAY ==
--- OUTSIDE RECORDS SUMMARY | 2025-01-04 08:45 | XMS_ITS ---
Author Organization [facility] Address [address] [facility] [address] [place] [id number] Care Team Providers Care Oyster Culler Name Role Phone Jeyson Benitez Primary Care [...] lamoTRIgine 150 MG TAKE 1 TABLET BY [facility] TWICE DAILY; Duration: 90 Active Calcium Citrate 150 MG 2 capsules Orally Once a day; Duration: 90 days Active hydrOXYzine HCl 10 MG as directed Orally Two times a day; Duration: 90 days Active Estrace 0.1 MG/GM 1 gm Vaginal 3 times per week 07/13/2024 Active traZODone HCl 100 MG TAKE 1 TABLET BY [facility] ONCE DAILY AT BEDTIME; Duration: 90 Active [...] 5min prn x 3 Active Vital Signs Weight 141.6 lbs 01/04/2025 Heart Rate 86 /min 01/04/2025 Height 65 in 01/04/2025 BMI 23.56 kg/m2 01/04/2025 Encounters Encounter Location Date Provider Diagnosis [facility] [address] [facility] [address], [place] [phone] 01/04/2025 R Foreign Benitez Pyelonephritis N12 Assessments Encounter Date Diagnosis (ICD Code) Assessment Notes Treatment Notes Treatment Clinical Notes Section Notes 01/04/2025 Pyelonephritis (ICD-10 - N12) She has failed to oral antibiotics. Plan for direct admission to [facility] for IV fluids and IV antibiotics. Plan Of Treatment Treatment Notes Assessment Notes Pyelonephritis She has failed to or al antibiotics. Plan for direct admission to [facility] for IV fluids and IV antibiotics. Next Appt Details Follow Up: After discharge, Reason: Progress Notes * BURT DORANOB:[birth year] (69 yo F)Acc No.[id number]:01/04/2025 Progress Notes Patient: WENDY ESCAMILLA Provider: Jeyson Benitez M.D. :1955 A ge:69 Y S ex:Female Date:01/04/2025 Address:[address] [place] [address] , [id number] Subjective: * Chief Complaints: * 1 . 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 Cath showed on [...] Ball 11/2020. * Hospitalization/Major Diagno stic Procedure: [facility] ER-diarrhea 03/2011, [facility] ER-back pain 06/2012, [facility]-heart attack 12/31/2014, [place] ER-constipation/impaction 09/2015, [place] ER-diarrhea 11/2015, [place] ER-Bronchitis 03/2018, Drs office in [place]-possible UTI, tested negative 12/2019. * Family History: F ather: . M other: alive. 2 brother(s) , 1 sister(s) . 1 son(s) , 1 daughter(s) . . * Social History: C URRENT TOBACCO USE S moking Status: P atient does NOT smoke quit after [place] 12/2014.?Caffeine: yes, frequency:. Home smoke detector use: [...] oral antibiotics. Plan for direct admission to [facility] for IV fluids and IV antibiotics.?? * Procedure Codes: 8 1002 Urinalysis, no micro * Follow Up: A fter discharge * Images: Billing Information: * Visit Code: * Procedure Codes: 49838 Urinalysis, no micro. * Electronic signature of Jeyson Benitez MD on 07/09/2025 at 11:28 AM EST Sign off status: Pending * Provider: Jeyson Benitez M.D. Date: 0 01/04/2025 Generated for Printi ng/Faxing/eTransmitting on: 1 11:28 AM EST History and Physical Notes * Physical [...]
--- OUTSIDE RECORDS SUMMARY | 2025-01-16 04:45 | XMS_ITS ---
Author Organization [facility] Address [address] [facility] [address] [place] [id number] Care Team Providers Care Glassie Name Role Phone Jeyson Benitez Primary Care [...] Interpretation: Performing Lab: Notes/Report: Test performed by [facility] [address] [place] [address] , [address], [place] [address] Tim Parrish MD, Supervisor Cd Area CLIA: [id number] Specimen Source Urine - Void Culture, Urine [...] BY MO [facility] ONCE DAILY AT BEDTIME; Duration: 90 [...] Encounter Location Date Provider Diagnosis [facility] [address] [facility] 36 [facility] [address] [place] [phone] 01/16/2025 Jeyson Benitez Pyelonephritis N12 Assessments Encounter [...] * BURT DORANOB:[birth year] (69 yo F)Acc No.[id number]:01/16/2025 Patient: WENDY ESCAMILLA Provider: Jeyson Benitez M.D. :1955 A ge:69 Y S ex:Female Date:01/16/2025 Address:[address] [place] [address] , [id number] Subjective: * Chief Complaints: * 1 . F/U Hospital D/C. * HPI: H PI: She returns to follow-up on recent admission to [facility] for pyelonephritis. 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 Cath showed on [...] [facility] ER-diarrhea 03/2011, [facility] ER-back pain 06/2012, [facility]-heart attack 12/31/2014, [place] ER-constipation/impaction 09/2015, [place] ER-diarrhea 11/2015, [place] ER-Bronchitis 03/2018, Drs office in [place]-possible UTI, tested negative 12/2019. * Family History: F ather: . M other: alive. 2 brother(s) , 1 sister(s) . 1 son(s) , 1 daughter(s) . . * Social History: C URRENT TOBACCO USE S moking Status: P atient does NOT smoke quit after [place] 12/2014.?Caffeine: yes, frequency:. Home smoke detector use: [...] G 2211 Complex e/[place], [address] Urinalysis, no micro * Follow Up: v ia phone to report test results * Images: Billing Information: * Visit Code: 18483 Office Visit, Est Pt., Level 3. * Procedure Codes: G2211 Complex e/[place]. [address] Urinalysis, no micro. * Electronic signature of Jeyson Benitez MD on 07/09/2025 at 11:29 AM EST Sign off status: Pending * Provider: Jeyson Benitez M.D. Date: 0 01/16/2025 Generated for Elkin castillo/Aram/eTransmitting on: 1 11:29 AM EST History and Physical Notes * HPI (History of Present Illness) Category Sub-Category Detail Notes Category Not es HPI She returns to follow-up on recent admission to [facility] for pyelonephritis. She completed a [...]
--- OUTSIDE RECORDS SUMMARY | 2025-02-13 10:30 | XMS_ITS ---
Author [facility] Address [address] [facility] [address] [place] [id number] Care Team Providers Care Merchant Banker Name Role Phone Jeyson Benitez Primary Care [...] TAKE 1 TABLET BY [facility] ONCE DAILY AT BEDTIME; Duration: 90 Active [...] Once a day 02/29/2024 Active Vital Signs Weight 139.4 lbs 02/13/2025 Blood pressure systolic 110 mm Hg 02/14/20 25 Blood pressure diastolic 76 mm Hg 025 Heart Rate 57 /min 02/13/2025 Height 65 in 02/13/2025 BMI 23.19 kg/m2 02/13/2025 Encounters Encounter Location Date Provider Diagnosis [facility] [address] [facility] [address] [place] [phone] 02/13/2025 Jeyson Benitez Pyelonephritis N12 Assessments Encounter Date Diagnosis (ICD Code) Assessment Notes Treatment Notes Treatment Clinical Notes Section Notes 02/13/2025 Pyelonephritis (ICD-10 - N12) Plan Of Treatment Next Appt Details Follow Up: after tests, Reas on: Progress Notes * BURT DORANOB:[birth year] (69 yo F)Acc No.[id number]:02/13/2025 Progress Notes Patient: WENDY ESCAMILLA Provider: Jeyson Benitez M.D. :1955 A ge:69 Y S ex:Female Date:02/13/2025 Address:[address] [place] [address] W , [id number] Subjective: * Chief [...] Ball 11/2020. * Hospitalization/Major Diagno stic Procedure: [facility] ER-diarrhea 03/2011, [facility] ER-back pain 06/2012, [facility]-heart attack 12/31/2014, [place] ER-constipation/impaction 09/2015, [place] ER-diarrhea 11/2015, [place] ER-Bronchitis [...] EDT > no auth required; CPT code 90884; faxed to [facility] Lin Pinedo 02/21/2025 11:03:14 AM EDT > See phone encounter * Procedure Codes: 8 1002 Urinalysis, no micro, G2211 Complex e/m visit add on * Follow Up: a fter tests * Images: Billing Information: * Visit Code: 29941 Office Visit, Est Pt., Level 3. * Procedure Codes: 98931 Urinalysis, no micro. G2211 Complex e/m visit add on. * Electronic signature of Jeyson Benitez MD on 07/09/2025 at 11:28 AM EST Sign off status: Pending * Provider: Jeyson Benitez M.D. Date: 0 02/13/2025 Generated for Elkin castillo/Aram/Linseyitting on: 1 11:28 AM EST History and Physical Notes * Examination Category Sub-Category Detail Notes Category Not es General Examination Heart: RSR Lungs: clear to auscultatio n Abdomen: Mild left CVA tender ness to percussion General Appearance: NAD
--- OUTSIDE RECORDS SUMMARY | 2025-02-22 04:00 | XMS_ITS ---
Author Organization [facility] Address [address] [place] [phone] Care Team Providers Care Overnight Stocker Name Role Phone Jeyson Benitez Primary Care Provider Work In, Schedule Unavailable Unavailable REASON FOR VISIT urine culture only Encounters Encounter Location Date Provider Diagnosis [facility] [address] [place] [phone] 02/22/2025 Schedule Work In Plan Of Treatment No Information Progress Notes * BURT DORANOB:[birth year] (69 yo F)Acc No.[id number]:02/22/2025 Patient: WENDY ESCAMILLA Provider: John mccabe Work In :1955 A ge:69 Y S ex:Female Date:02/22/2025 Address:[address] [id number] Pcp:Jeyson Benitez Subjective: * Chief Complaints: * 1 . Urine culture only. * Medical History: Objective: * Vitals: Assessment: Plan: * Treatment: * Images: Billing Information: * Visit Code: * Procedure Codes: * Electronic signature of Ale finch Work In on 07/09/2025 at 11:28 AM EST Sign off status: Pending * Provider: John chedule Work In Date: 0 02/22/2025 Generated for Elkin castillo/Aram/eTransmitting on: 1 11:28 AM EST
--- OUTSIDE RECORDS SUMMARY | 2025-02-26 05:15 | XMS_ITS ---
Author Organization [facility] Address [address] [facility] [address] [place], [place] [id number] Care Team Providers Care Pediatric Critical Care Nurse Name Role Phone Jeyson Benitez Primary Care Provider Marlena Antonio Unavailable [phone] Allergies Allergen (clinical drug ingredient) Drug/Non Drug [...] Interpretation:3.5 Performing Lab: Notes/Report: Test performed by [employer], 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 Ramila Oliveira Taylor, [...] 100 MG TAKE 1 TABLET BY MO [facility] ONCE DAILY AT BEDTIME; Duration: 90 [...] Status Risk Notes Problem Chronic respiratory failure (91042720) Chronic respiratory failure with hypoxia (J96.11) Active confirmed Vital Signs Weight 144.4 lbs 02/26/2025 Blood pressure systolic 116 mm Hg 02/27/20 25 Blood pressure diastolic 60 mm Hg 025 Heart Rate 70 /min 02/26/2025 Height 65 in 02/26/2025 BMI 24.03 kg/m2 02/26/2025 Encounters Encounter Location Date Provider Diagnosis [facility] [address] [id number] 02/26/2025 Marlena Antonio Acute pain of left knee M25.562 ; Acute pain of left wrist M25.532 ; Chronic respiratory failure with hypoxia J96.11 and BMI 24.0-24.9, adult Z68.24 Assessments Encounter Date Diagnosis (ICD Code) Assessment Notes Treatment Notes Treatment Clinical Notes Section Notes 02/26/2025 Acute pain of left knee (ICD-10 - M25.562) discussed xray, MRI and orthoped referral; will do g1mgairj at orOrtho of her choice; she staes [...] xray, MRI and orthoped referral; will do b3yvatku at orOrtho of her choice; she staes [...] * BURT DORANOB:[birth year] (69 yo F)Acc No.[id number]:02/26/2025 Progress Notes Patient: WENDY ESCAMILLA Provider: FAWN Wise :1955 A ge:69 Y S ex:Female Date:02/26/2025 Address:[address] [place] [address] , [place], [place] Pcp:Jeyson Benitez Subjective: * Chief Complaints: [...] Procedure: [facility] ER-diarrhea 03/2011, [facility] ER-back pain 06/2012, [facility]-heart attack 12/31/2014, [place] ER-constipation/impaction 09/2015, [place] ER-diarrhea 11/2015, [place] ER-Bronchitis [...] failure with hypoxia - J96.11 ?4. B [place] 24.0-24.9, adult - Z68.24 Plan: [...] xray, MRI and orthoped referral; will do p6ysietf at orOrtho of her choice; she staes [...] G 2211 Complex e/[place], [address] CBC WITH AUTO DIFF, 1036F TOBACCO NON-USER, G8783 BP SCR PRFRM RCMDD DEFIND SCR INTVL, G8752 MOST RECENT SYSTOLIC BP < 140MM HG, G8754 MOST RECENT DIASTOLIC BP < 90MM HG, G8420 BMI<30 AND >=22 CALC & DOCU * Follow Up: p rn * Images: Drawing:[facility] addendum 2024 Billing Information: * Visit Code: 70816 Office Visit, Est Pt., Level 3. * Procedure Codes: G2211 Complex e/[place]. [address] CBC WITH AUTO DIFF. 1036F TOBACCO NON-USER. G8783 BP SCR PRFRM RCMDD DEFIND SCR INTVL. G8752 MOST RECENT SYSTOLIC BP < 140MM HG. G8754 MOST RECENT DIASTOLIC BP < 90MM HG. G8420 BMI<30 AND >=22 CALC & DOCU. * Electronic signature of Rosa Antonio APRN on 07/09/2025 at 11:29 AM EST Sign off status: Pending * Provider: FAWN Wsie Date: 0 02/26/2025 Generated for Elkin castillo/Aram/Clem on: 1 11:29 AM EST History and [...]
--- OUTSIDE RECORDS SUMMARY | 2025-05-07 05:15 | XMS_ITS ---
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 Name Role Phone Jeyson Benitez Primary Care Provider [phone] Sang Regan [phone] Allergies Allergen (clinical drug ingredient) Drug/Non Drug [...] MG TAKE 1 TABLET BY MO [facility] ONCE DAILY AT BEDTIME; Duration: 90 Active Vital Signs Weight 148.8 lbs 05/07/2025 Blood pressure systolic 116 mm Hg 05/07/20 25 Blood pressure diastolic 68 mm Hg 025 Heart Rate 74 /min 05/07/2025 Height 65 in 05/07/2025 BMI 24.76 kg/m2 05/07/2025 Encounters Encounter Location Date Provider Diagnosis [facility] [address] [facility] [address] [place] [id number] 05/07/2025 Sang Regan Acute bronchitis, unspecified organism [...] * BURT DORANOB:[birth year] (69 yo F)Acc No.[id number]:05/07/2025 Progress Notes Patient: WENDY ESCAMILLA Provider: Jefferson Regan M.D. :1955 A ge:69 Y S ex:Female Date:05/07/2025 Address:[address] [place] [address] , [id number] Pcp:Jeyson Benitez Subjective: * Chief Complaints: * [...] benzonatate, prednisone and Z-Carlos on 04/[address] [facility]. c/o Short of Breath with exertion. c/o headache p ressure like sensation. c/o chest congestion w ith production of sputum. 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 Cath showed on [...] Ball 11/2020. * Hospitalization/Major Diagno stic Procedure: [facility] ER-diarrhea 03/2011, [facility] ER-back pain 06/2012, [facility]-heart attack 12/31/2014, [place] ER-constipation/impaction 09/2015, [place] ER-diarrhea 11/2015, [place] ER-Bronchitis 03/2018, Drs office in [place]-possible UTI, tested negative 12/2019. * Family History: F ather: . M other: alive. 2 brother(s) , 1 sister(s) . 1 son(s) , 1 daughter(s) . . * Social History: C URRENT TOBACCO USE: No S moking Status: P atient does NOT smoke quit after [place] 12/2014. C affeine: yes, frequency:. 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 * Examination: E NT/Respiratory: [...] G 2211 Complex e/[place], [address] CBC WITH AUTO DIFF, 30895 CAPILLARY BLOOD DRAW, 1036F TOBACCO NON-USER, G8783 BP SCR PRFRM RCMDD DEFIND SCR INTVL, G8752 MOST RECENT SYSTOLIC BP < 140MM HG, G8754 MOST RECENT DIASTOLIC BP < 90MM HG, 3074F SYST BP LT 130 MM HG, 3078F DIAST BP < 80 MM HG * Follow Up: p rn * Images: Billing Information: * Visit Code: 26517 Office Visit, Est Pt., Level 3. * Procedure Codes: G2211 Complex e/[place]. [address] CBC WITH AUTO DIFF. 94130 CAPILLARY BLOOD DRAW. 1036F TOBACCO NON-USER. G8783 BP SCR PRFRM RCMDD DEFIND SCR INTVL. G8752 MOST RECENT SYSTOLIC BP < 140MM HG. G8754 MOST RECENT DIASTOLIC BP < 90MM HG. 3074F SYST BP LT 130 MM HG. 3078F DIAST BP < 80 MM HG. * Electronic signature of Bernadette Regan MD on 07/09/2025 at 11:29 AM EST Sign off status: Pending * Provider: Jefferson Regan M.D. Date: 1 Generated for Elkin castillo/Aram/Linseyitting on: 11:29 AM EST History and Physical Notes [...] benzonatate, prednisone and Z-Carlos on 04/[address] [facility] headache pressure like sensat ion [...]
--- OUTSIDE RECORDS SUMMARY | 2025-05-10 11:15 | XMS_ITS ---
Author Organization [facility] Address [address] [facility] [address] [place] [phone] Care Team Providers Care Medical Cost Consultant Name Role Phone Jeyson Benitez Primary Care Provider China Sánchez [phone] Allergies Allergen (clinical drug ingredient) Drug/Non Drug [...] HCl 100 MG TAKE 1 TABLET BY [facility] ONCE DAILY AT BEDTIME; Duration: 90 Active Vital Signs Weight 148.4 lbs 05/10/2025 Blood pressure systolic 120 mm Hg 05/10/20 25 Blood pressure diastolic 60 mm Hg 025 Heart Rate 74 /min 05/10/2025 Height 65 in 05/10/2025 BMI 24.69 kg/m2 05/10/2025 Encounters Encounter Location Date Provider Diagnosis [facility] [facility] 36 [facility] [address] [place] [phone] 05/10/2025 China Sánchez Acute bronchitis, unspecified organism [...] * BURT DORANOB:[birth year] (69 yo F)Acc No.[id number]:05/10/2025 Progress Notes Patient: WENDY ESCAMILLA Provider: RANI Dumont :1955 A ge:69 Y S ex:Female Date:05/10/2025 Address:[address] [place] [address] , [id number] Pcp:Jeyson Benitez Subjective: * Chief Complaints: * 1 . Not feeling better. * HPI: E NT/respiratory: 69 year old female presents with c/o sore throat. c/o cough. c/o nasal congestion P t sts she has had 2 rounds of antibiotics and sts nothing has helped. Pt sts Wednesday she started out at [facility] and then saw Dr. Regan Wednesday or [...] stic Procedure: [facility] ER-diarrhea 03/2011, [facility] ER-back pain 06/2012, [facility]-heart attack 12/31/2014, [place] ER-constipation/impaction 09/2015, [place] ER-diarrhea 11/2015, [place] ER-Bronchitis [...] EST > pt informed * Procedure Codes: G 2211 Complex e/[place], [address] CAPILLARY BLOOD DRAW, 48181 CBC WITH AUTO DIFF * Follow Up: v ia phone to report test results * Images: Billing Information: * Visit Code: 32056 Office Visit, Est Pt., Level 3. * Procedure Codes: G2211 Complex e/[place]. [address] CAPILLARY BLOOD DRAW. 02911 CBC WITH AUTO DIFF. * Electronic signature of RANI Umanzor on 07/09/2025 at 11:29 AM EST Sign off status: Pending * Provider: RANI Dumont Date: Generated for Printi ng/Favalentinag/eTransmitting on: 11:29 AM EST History and Physical Notes * HPI (History of Present Illness) Category Sub-Category Detail Notes Category Not es ENT/respiratory sore throat cough nasal congestion Pt sts she has had 2 rounds of antibiotics and sts nothing has helped. Pt sts Wednesday she started out at [facility] and then saw Dr. Regan Wednesday or [...]
--- OUTSIDE RECORDS SUMMARY | 2025-05-15 09:30 | XMS_ITS ---
Author Organization [facility] Address [address] [facility] [address] [place], [place] [id number] Care Team Providers Care Accountant Tax Name Role Phone Jeyson Benitez Primary Care Provider [phone] Allergies Allergen (clinical drug ingredient) Drug/Non Drug [...] lamoTRIgine 150 MG [facility]; Duration: 90 Active Ezetimibe 10 [...] Orally Twice a day Active Vital Signs Weight 143.6 lbs 05/15/2025 Blood pressure systolic 104 mm Hg 05/15/20 25 Blood pressure diastolic 70 mm Hg 025 Heart Rate 67 /min 05/15/2025 Height 65 in 05/15/2025 BMI 23.89 kg/m2 05/15/2025 Encounters Encounter Location Date Provider Diagnosis [facility] [address] [facility] [address] [facility] [address] [place] [phone] 05/15/2025 Jeyson Benitez Acute bronchitis, unspecified organism [...] test results, Reason: Progress Notes * BURT DROANOB:[birth year] (69 yo F)Acc No.[id number]:05/15/2025 Progress Notes Patient: MARIA ISABEL ESCAMILLA Provider: Jeyson Benitez M.D. :1955 A ge:69 Y S ex:Female Date:05/15/2025 Address:[address] [place] [address] , [id number] Subjective: * Chief Complaints: [...] Ball 11/2020. * Hospitalization/Major Diagno stic Procedure: [facility] ER-diarrhea 03/2011, [facility] ER-back pain 06/2012, [facility]-heart attack 12/31/2014, [place] ER-constipation/impaction 09/2015, [place] ER-diarrhea 11/2015, [place] ER-Bronchitis [...] lat 325 100 - 400 * Cathi Hilton 05/15/2025 03 :03:57 PM EST > Provider reviewed results while patient in office. * Procedure Codes: G 2211 Complex e/[place], [address] CAPILLARY BLOOD DRAW, 27020 CBC WITH AUTO DIFF * Follow Up: v ia phone to report test results * Images: Billing Information: * Visit Code: 01419 Office Visit, Est Pt., Level 3. * Procedure Codes: G2211 Complex e/[place]. [address] CAPILLARY BLOOD DRAW. 89771 CBC WITH AUTO DIFF. * Electronic signature of Jeyson Benitez MD on 07/09/2025 at 11:28 AM EST Sign off status: Pending * Provider: Jeyson Benitez M.D. Date: 07/15/2024 Generated for Elkin castillo/Aram/eTransmitting on: 11:28 AM EST History and Physical Notes * Examination Category Sub-Category Detail Notes Category Not es General Examination HEENT: Mild nasal c ongestion, otherwise unremarkable Heart: RSR Lungs: Generally diminished breath sounds but no rales or wheezes General Appearance: Noted with dry cough . No respiratory distress
--- OUTSIDE RECORDS SUMMARY | 2025-05-21 05:15 | XMS_ITS ---
Author Organization [facility] Address [address] [facility] [address] [place] [phone] Care Team Providers Care Social Work Administrator Name Role Phone Jeyson Benitez Primary Care Provider Marlena Antonio Unavailable [phone] Allergies Allergen (clinical drug ingredient) Drug/Non Drug Allergy documented on EMR Reaction Allergy Type Onset Date Status indomethacin Indomethacin disoriented Drug Allergy Active milnacipran Savella memory loss and excessive drowsiness Drug Allergy Active Penicillin anaphylaxis Drug Allergy Acti ve Results Component Value Reference Range Notes CBC Fingerstick (in house) Reviewed date:05/21/2025 01:22:17 PM Interpretation: Performing Lab: Notes/Report: wbc 8.6 3.5 - 10 lym 25.9 15 - 50 mid 7.2 2 - 15 gran 66.9 35 - 80 rbc 4.60 3.5 - 5.5 hgb 14.2 11.5 - 16.5 hct 42.6 35 - 55 mcv 92.6 75 - 100 mch 30.8 25 - 35 mchc 33.2 31 - 38 plat 230 100 - 400 CXR Reviewed date:06/27/2025 01:00:34 PM Interpretation:see rib x-ray Performing Lab: Notes/Report: see rib x-ray X ray : ribs right Reviewed date:05/22/2025 09:18:21 AM Interpretation:Negative Performing Lab: Notes/Report: Negative REASON FOR VISIT ribs hurting still Medications Medication SIG (Take, Route, Frequency, Duration) Notes Start Date End Date Status SUMAtriptan Succinate 50 MG 1 tablet as needed, may take second dose at least 2 hours after first dose up to 2 tablets per day as needed Orally; Duration: 30 days Active Pantoprazole Sodium 40 MG 1 tablet 1/2 to 1 hour before meals Orally twice a day; Duration: 90 days Active Montelukast Sodium 10 MG 1 tablet Orally Once a day; Duration: 90 days Active oxyBUTYnin Chloride ER 10 MG 1 tablet Orally Once a day; Duration: 90 days Active lamoTRIgine 150 MG TAKE 1 TABLET BY [facility] TWICE DAILY; Duration: 90 Active Atorvastatin Calcium 20 MG TAKE 1 TABLET BY MOUTH ONCE DAILY; Duration: 90 days Active Estrace 0.1 MG/GM 1 gm Vaginal 3 times per week 07/13/2024 Active Venlafaxine HCl ER 225 MG 1 tablet with food Orally Once a day; Duration: 90 days Active Ezetimibe 10 MG 1 tablet Orally Once a day; Duration: 90 days Active traZODone HCl 100 MG TAKE 1 TABLET BY [facility] ONCE DAILY AT BEDTIME; Duration: 90 Active Calcium Citrate 150 MG [...] ly q 5min prn x 3 Active Aspirin 81 MG 1 tab(s) orally [...] each nostril Nasally Twice a day Active Anoro Ellipta 62.5-25 MCG/ACT 1 puff Inhalation Once a day Not-Taking Trulance 3 MG 1 tablet Orally Once a day Active Vital Signs Weight 145 lbs 05/21/2025 Blood pressure systolic 110 mm Hg 05/21/20 25 Blood pressure diastolic 72 mm Hg 025 Heart Rate 69 /min 05/21/2025 Height 65 in 05/21/2025 BMI 24.13 kg/m2 05/21/2025 Encounters Encounter Location Date Provider Diagnosis [facility] [address] [facility] [address] [place] Khan [phone] 05/21/2025 Marlena Antonio Anterior chest wall pain R07.1 Assessments Encounter Date Diagnosis (ICD Code) Assessment Notes Treatment Notes Treatment Clinical Notes Section Notes 05/21/2025 Anterior chest wall pain (ICD-10 - R07.1) Discussed with radiology and will do CTA of the chest along with repeat CXR and right rib X-rays; to continue with NSAID and also to start Tylenol prn; suggested heat application ; also to start inhaler QID as long as cough is frequent and persistent Marlena Antonio 05/21/2025 03:14:09 PM EST >I reviewed CTA results with pt; Fx of the 7th rib; NO PE or pneumothorax Plan Of Treatment Treatment Notes Assessment Notes Anterior chest wall pain Discussed with radiology and will do CTA of the chest along with repeat CXR and right rib X-rays; to continue with NSAID and also to start Tylenol prn; suggested heat application ; also to start inhaler QID as long as cough is frequent and persistent Marlena Antonio 05/21/2025 03:14:09 PM EST >I reviewed CTA results with pt; Fx of the 7th rib; NO PE or pneumothorax Next Appt Details Follow Up: FU via phone afte r tests completed, Reason: Progress Notes * BURT DORANOB:[birth year] (69 yo F)Acc No.[id number]:05/21/2025 Progress Notes Patient: WENDY ESCAMILLA Provider: FAWN Wise :1955 A ge:69 Y S ex:Female Date:05/21/2025 Address:[address] [address] [id number] Pcp:Jeyson Benitez Subjective: * Chief Complaints: * 1 . Ribs hurting still. * HPI: H PI: Patient is here today for P t states her ribs are still hurting been going on for like 2 weeks, and she is not sure what is going on. E NT/respiratory: taking NSAIDS for the pain. c/o cough d ry hacky; now sputum is clear. c/o Chest Pain r ight chest pain beneath breast ; hurts with any movement. Denies : chest congestion. * ROS: D ERMATOLOGY: no R chanell. n o H sherrie. G ASTROENTEROLOGY: no N ausea. n o V omiting. n o D iarrhea.? U ROLOGY: no D ifficulty urinating. n o B lood in urine. 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 Cath showed on [...] Procedure: [facility] ER-diarrhea 03/2011, [facility] ER-back pain 06/2012, [facility]-heart attack 12/31/2014, [place] ER-constipation/impaction 09/2015, [place] ER-diarrhea 11/2015, [place] ER-Bronchitis 03/2018, Drs office in [place]-possible UTI, tested negative 12/2019. * Family History: F ather: . M other: alive. 2 brother(s) , 1 sister(s) . 1 son(s) , 1 daughter(s) . . * Social History: C URRENT TOBACCO USE: No S moking Status: P fozia does NOT smoke quit after [place] 12/2014. C affeine: yes, frequency:. Home smoke detector use: yes. Marital Status: . 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 Past smoking status: PPD: 1, years:30 ,determination:. Alcohol: no. * Medications: T aking Trulance 3 MG Tablet 1 tablet Orally Once a day , Taking Flonase Allergy Relief 50 MCG/ACT Suspension 1 spray in each nostril Nasally Twice a day , Taking Baclofen 10 MG Tablet 1 tablet as needed Orally Twice a day , Taking Vitamin D3 50 [...] tablets per day as needed Orally , Not-Taking Anoro Ellipta 62.5-25 MCG/ACT Aerosol Powder Breath Activated 1 puff Inhalation Once a day , Discontinued Ibsrela 50 MG Tablet 1 tablet Orally at bed time , Discontinued Linzess 290 MCG Capsule 1 capsule at least 30 minutes before the first meal of the day on an empty stomach Orally Once a day , Discontinued Hycodan 5-1.5 MG Tablet 1 tablet as needed Orally every 6 hrs , Discontinued levoFLOXacin 750 MG Tablet 1 tablet Orally Once a day , Discontinued Macrodantin 100 MG Capsule 1 capsule at bedtime with food or milk Orally twice a day , Discontinued Macrobid 100 MG Capsule 1 capsule with food Orally every 12 hrs , Medication List reviewed and reconciled with the patient * Allergies: P enicillin: anaphylaxis, Savella: memory loss and excessive drowsiness, Indomethacin: disoriented. Objective: * Vitals: W t: 145, Temp: 97.5, BP: 110/72, HR: 69, O2 Sat: 93% on RA, Nurse: pe, Ht: 65, BMI:24.13. * Examination: G eneral Examination: General Appearance: N AD, alert; appears uncomfortable.?Chest: T TP around the breast; more so beneath the right breast; + bulge. H eart: R RR. L ungs: C TAB A&P; diminished BS on the right; pt is splinting. N eurologic Exam: alert and oriented. Assessment: * Assessment: 1. A nterior chest wall pain - R07.1 (Primary) Plan: * Treatment: Value Reference Range w bc 8.6 3.5 - 10 * l ym 25.9 15 - 50 * m id 7.2 2 - 15 * g ran 66.9 35 - 80 * r bc 4.60 3.5 - 5.5 * h gb 14.2 11.5 - 16.5 * h ct 42.6 35 - 55 * m cv 92.6 75 - 100 * m ch 30.8 25 - 35 * m chc 33.2 31 - 38 * p lat 230 100 - 400 * Verónica Johnson 05/21/2025 11:37:37 AM EST > Provider reviewed results while patient in office.aMrlena Antonio 05/21/2025 01:22:17 PM EST > ?Imaging: X ray : ribs right (Performed Date - 05/21/2025)?Negative ?Imaging: CXR (Performed Date - 06/27/2025)?see rib x-ray Notes: Discussed with radiology and will do CTA of the chest along with repeat CXR and right rib X-rays; to continue with NSAID and also to start Tylenol prn; suggested heat application ; also to start inhaler QID as long as cough is frequent and persistent Marlena Antonio 05/21/2025 03:14:09 PM EST >I reviewed CTA results with pt; Fx of the 7th rib; NO PE or pneumothorax?? * Procedure Codes: G 2211 Complex e/[place], [address] CAPILLARY BLOOD DRAW, 44367 CBC WITH AUTO DIFF * Follow Up: F U via phone after tests completed * Images: Billing Information: * Visit Code: 50023 Office Visit, Est Pt., Level 4. * Procedure Codes: G2211 Complex e/[place]. [address] CAPILLARY BLOOD DRAW. 81367 CBC WITH AUTO DIFF. * Electronic signature of Rosa Antonio APRN on 07/09/2025 at 11:30 AM EST Sign off status: Pending * Provider: FAWN Wise Date: 07/21/2024 Generated for Elkin castillo/Aram/Saritasmitting on: 11:30 AM EST History and Physical Notes * HPI (History of Present Illness) Category Sub-Category Detail Notes Category Not es ENT/respiratory Chest Pain right chest pain beneath breast ; hurts with any movement cough dry hacky; now sputu m is clear chest congestion HPI Patient is here today for Pt sta inessa her ribs are still hurting been going on for like 2 weeks, and she is not sure what is going on Examination Category Sub-Category Detail Notes Category Not es General Examination Heart: RRR Lungs: CTAB A&P; diminished BS on the right; pt is splinting General Appearance: NAD, alert; appears uncomfortable Neurologic Exam: alert and oriented Chest: TTP around the breas t; more so beneath the right breast; + bulge
--- OUTSIDE RECORDS SUMMARY | 2025-07-09 11:29 | XMS_ITS | Patient Health Record ---
[facility] Address [address] [facility] [address] [place] [id number] Care Team Providers Care Microfilm Camera Operator Name Role Phone Jeyson Benitez Primary Care Provider Sang Regan Unavailable [phone] Marlena Antonio Unavailable [phone] Work In, Schedule Unavailable Unavailable China Sánchez Unavailable [phone] Allergies Allergen (clinical drug ingredient) Drug/Non Drug [...] moderate fecal impaction CBC Fingerstick (in house) Reviewed date:05/16/2025 07:39:33 [...] Interpretation:no pneumonia Performing Lab: Notes/Report: no pneumonia CT Scan : Abdomen and pelvis with IV contrast only Reviewed date:03/08/2025 10:31:23 PM Interpretation:renal cyst; retained stool Performing Lab: Notes/Report: renal cyst; retained stool Influenza Screen (in house) Reviewed date:01/03/2025 12:11:45 [...] Interpretation: Performing Lab: Notes/Report: Test performed by [facility], [address] , [address], [place] [address] Tim Parrish MD, Automatic Pinsetter Adjuster CLIA: [id number] Specimen Source Urine - Void Culture, Urine See Below See Microbiol ogy Report Escherichia coli ESBL 50,000-100,000 CFU /ml Escherichia coli ESBL This isolate is a confirmed ESBL (Extended Spectrum Beta-Lactamase) moving picture producer and should be considered clinically resistant [...] Interpretation:3.5 Performing Lab: Notes/Report: Test performed by [facility], [address] , [address], [place] [address] Tim Parrish MD, Automatic Pinsetter Adjuster CLIA: [id number] Uric Acid 3.5 2.4-7.0 mg/dL CBC Fingerstick (in house) Reviewed date:05/10/2025 04:37:51 [...] Notes/Report: Negative CBC Fingerstick (in house) Reviewed date:05/21/2025 01:22:17 [...] 09:18:21 AM Interpretation:Negative Performing Lab: Notes/Report: Negative CBC Fingerstick (in house) Reviewed date:05/07/2025 05:16:57 [...] - 38 plat 256 100 - 400 P-Culture, Urine Reviewed date:01/18/2025 02:40:55 PM Interpretation: Performing Lab: Notes/Report: Test performed by [facility] [address] [place] [address] , [address], [place] [address] Tim aPrrish MD, Automatic Pinsetter Adjuster CLIA: [id number] Specimen Source Urine - Void Culture, Urine See Below Final Report : No Significant Growth Urinalysis - Inhouse Reviewed date:01/16/2025 01:06:05 PM Interpretation: Performing Lab: Notes/Report: Color/Clarity yellow/clear Leuk Neg Nitrite Neg Urobili 3.2 Protein Neg pH 5.5 Blood Neg Sp. Gr. 1.010 Ketone Neg Bili Neg Gluc Neg CBC Fingerstick (in house) Reviewed date:10/19/2024 08:08:25 [...] Neg Ketone Neg Bili Neg Gluc Neg H-CBC Reviewed date:01/04/2025 11:41:11 PM Interpretation: Performing [...] 88 74-100 mg/dl CA 8.4 8.4-10.2 mg/dl H-BUN/CREAT Reviewed date:03/06/2025 02:28:19 PM Interpretation: Performing [...] date:05/22/2025 09:17:39 AM Interpretation: Performing Lab: Notes/Report: Medications Medication SIG (Take, Route, Frequency, Duration) Notes Start Date End Date Status Multivitamin - 1 tab(s) orally once a day w/ Iron Active lamoTRIgine 150 MG TAKE 1 TABLET BY DOV TH TWICE DAILY; Duration: 90 Active Nitroglycerin 0.4 [...] W/U Status Risk Notes Problem Essential hypertension (15438470) Essential (primary) hypertension (I10) Active confirmed Problem History of circulatory system disease (827456146) History of ASCVD (Z86.79) Active confirmed Problem COPD - Chronic obstructive pulmonary disease (45137162) COPD (chronic obstructive pulmonary disease) (J44.9) Active confirmed Problem Acute exacerbation of chronic obstructive airways disease (048206445) COPD with exacerbation (J44.1) Active confirmed Problem Osteopenia (902999241) Osteopenia (M85.80) Active confirmed Problem Seasonal allergy (368073129) Seasonal allergies (J30.2) Active confirmed Problem Renal mass (910003011) Renal mass (N28.89) Active confirmed Problem Mixed anxiety and depressive disorder (207024745) Depression with anxiety (F41.8) Active confirmed Problem Overactive urinary bladder (disorder) (637957718) OAB (overactive bladder) (N32.81) Active confirmed Problem Memory loss (66018753) Memory loss (R41.3) Active confirmed Problem Fibromyalgia (877790784) Fibromyalgia (M79.7) Active confirmed Problem Vasomotor rhinitis (4070205) Vasomotor rhinitis (J30.0) Active confirmed Problem Chronic respiratory failure (92811426) Chronic respiratory failure with hypoxia (J96.11) Active confirmed Problem Irritable bowel syndrome with diarrhea (375301904) Irritable bowel syndrome with diarrhea (K58.0) Active confirmed Problem Migraine without aura, not refractory (536379945) Migraine without aura and without status migrainosus, not intractable (G43.009) Active confirmed Problem Atrophic vaginitis (57537488) Atrophic vaginitis (N95.2) Active confirmed Problem Sacroiliitis (76081145) Sacroiliitis (M46.1) Active confirmed Problem Dependence on supplemental oxygen (338184759227) Oxygen dependent (Z99.81) Active confirmed Problem Dyslipidemia (707869709) Dyslipidemia (E78.5) Active confirmed Problem Allergic rhinitis caused by pollen (70144144) Seasonal allergic rhinitis due to pollen (J30.1) Active confirmed Problem Degenerative disc disease (57902557) DDD (degenerative disc disease), lumbar (M51.36) Active confirmed Problem Acquired kyphosis of thoracic spine due to poor posture (disorder) (119980265700595) 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) Active confirmed Problem Malabsorption syndrome (20141457) Malabsorption due to intolerance, not elsewhere classified (K90.49) Active confirmed Problem Ex-tobacco user (finding) (761681967) Personal history of tobacco use (Z87.891) Active confirmed Problem Degeneration of thoracic intervertebral disc (85665175) DDD (degenerative disc disease), thoracic (M51.34) Active confirmed Vital Signs Heart Rate 69 /min 05/21/2025 Blood pressure diastolic 72 mm Hg 05/21/2025 Height 65 in 05/21/2025 Blood pressure systolic 110 mm Hg 05/21/2025 Weight 145 lbs 05/21/2025 BMI 24.13 kg/m2 05/21/2025 Encounters Encounter Location Date Provider Diagnosis [facility] [address] [place], [place] [id number] 07/13/2024 R Foreign Benitez URI (upper respirato ry infection) J06.9 and Atrophic vaginitis N95.2 [facility] [address] [place] [id number] 07/25/2024 R Foreign Benitez Palpitations R00.2 [facility] [address] [place] [id number] 08/28/2024 Marlena Antonio Sinusitis J32.9 and Papules R23.8 [facility] [address] [place] [id number] 10/19/2024 R Foreign Benitez Acute bronchitis J20 .9 ; COPD (chronic obstructive pulmonary disease) J44.9 ; Dyslipidemia E78.5 ; Seasonal allergies J30.2 and BMI 24.0-24.9, adult Z68.24 [facility] [address] [place] [id number] 12/29/2024 China Crowdy Hypoxia R09.02 ; Dysuria R30.0 ; Chills R68.83 and BMI 24.0-24.9, adult Z68.24 [facility] [address] [place] [id number] 12/30/2024 China Crowdy Dysuria R30.0 [facility] [address] [place] [id number] 01/02/2025 R Foreign Benitez Adult general medica l examination Z00.00 ; Flank pain, acute R10.10 ; Hematuria R31.9 ; Depression with anxiety F41.8 ; History of ASCVD Z86.79 ; Osteopenia M85.80 ; Personal history of tobacco use Z87.891 ; COPD (chronic obstructive pulmonary disease) J44.9 ; Essential (primary) hypertension I10 ; Seasonal allergies J30.2 ; Dyslipidemia E78.5 and BMI 24.0-24.9, adult Z68.24 [facility] [address] [place] [id number] 01/04/2025 R Foreign Emmanuel Pyelonephritis N12 [facility] [address] [place] [id number] 01/16/2025 R Foreign Emmanuel Pyelonephritis N12 [facility] [address] [place] [id number] 02/13/2025 R Foreign Emmanuel Pyelonephritis N12 [facility] [address] [place] [id number] 02/22/2025 Schedule Work In [facility] [address] [place] [id number] 02/26/2025 Marlena Antonio Acute pain of left k nee M25.562 ; Acute pain of left wrist M25.532 ; Chronic respiratory failure with hypoxia J96.11 and BMI 24.0-24.9, adult Z68.24 [facility] [address] [facility] [address] [place] [id number] 05/07/2025 Sang Wapella Acute bronchitis, unspecified organism J20.9 [facility] [address] [place] [id number] 05/10/2025 China Crowdy Acute bronchitis, unspecified organism J20.9 [facility] [address] [place] [id number] 05/15/2025 R Foreign Emmanuel Acute bronchitis, unspecified organism J20.9 [facility] [address] [facility] [address] [place] [id number] 05/21/2025 Marlena Antonio Anterior chest wall pain R07.1 [facility] [address] [place] [id number] 08/15/2024 R Foreign Emmanuel [facility] [address] [place] [id number] 08/15/2024 R Foreign Emmanuel [facility] [address] [place] [id number] 08/17/2024 R Foreign Emmanuel Seasonal allergies J30.2 [facility] [address] [place] [id number] 10/31/2024 R Foreign Emmanuel [facility] [address] [place] [id number] 11/21/2024 R Foreign Emmanuel [facility] [address] [place] [id number] 01/02/2025 China Liondy [facility] [address] [place] [id number] 01/02/2025 R Foreign Emmanuel [facility] [address] [place] [id number] 01/09/2025 R Foreign Emmanuel [facility] [address] [place] [id number] 01/18/2025 R Foreign Emmanuel [facility] [address] [place] [id number] 01/22/2025 R Foreign Emmanuel [facility] [address] [place] [id number] 02/21/2025 R Foreign Emmanuel Renal mass N28.89 [facility] [address] [place] [id number] 02/22/2025 R Foreign Emmanuel [facility] [address] [place] [id number] 03/08/2025 R Foreign Emmanuel [facility] [address] [place] [id number] 03/26/2025 R Foreign Emmanuel [facility] [address] [place] [id number] 04/19/2025 R Foreign Emmanuel [facility] [address] [place] [id number] 05/07/2025 R Foreign Emmanuel [facility] [address] [place] [id number] 05/11/2025 R Foreign Emmanuel [facility] [address] [facility] [address] [place] [id number] 05/11/2025 Sangmani Regan Acute bronchitis, unspecified organism J20.9 [facility] [address] [facility] [address] [place] [id number] 05/17/2025 Jeyson Benitez Assessments Encounter Date Diagnosis (ICD Code) Assessment Notes Treatment Notes Treatment Clinical Notes Section Notes 07/13/2024 URI (upper respiratory infection) (ICD-10 - [...] oral antibiotics. Plan for direct admission to [facility] for IV fluids and IV [...] xray, MRI and orthoped referral; will do [facility]wwote at [facility] her choice; she staes they always do Xray and can scheduled MRI if needed; encouraged use of cane and/or walker for steadiness and fall prevention 02/26/2025 Chronic respiratory failure with hypoxia (ICD-10 - J96.11) 01/02/2025 Hematuria (ICD-10 - R31.9) 10/19/2024 Dyslipidemia (ICD-10 - E78.5) 12/29/2024 Chills (ICD-10 - R68.83) 12/29/2024 BMI 24.0-24.9, adult (ICD-10 - Z68.24) 10/19/2024 Seasonal allergies (ICD-10 - J30.2) 01/02/2025 Depression with anxiety (ICD-10 - F41.8) 02/26/2025 BMI 24.0-24.9, adult (ICD-10 - Z68.24) 01/02/2025 History of ASCVD (ICD-10 - Z86.79) 10/19/2024 BMI 24.0-24.9, adult (ICD-10 - Z68.24) 01/02/2025 Osteopenia (ICD-10 - M85.80) 01/02/2025 Personal history of tobacco use (ICD-10 - Z87.891) 01/02/2025 COPD (chronic obstructive pulmonary disease) (ICD-10 - J44.9) 01/02/2025 Essential (primary) hypertension (ICD-10 - I10) 01/02/2025 Seasonal allergies (ICD-10 - J30.2) 01/02/2025 Dyslipidemia (ICD-10 - E78.5) 01/02/2025 BMI 24.0-24.9, adult (ICD-10 - Z68.24) Plan Of Treatment Pending Test Test Name Order Date H-Sputum Culture with Gram Stain 025 P-Comprehensive Metabolic Panel (CMP) P-Lipid Panel 09/21/2023 Insurance Providers Payer Name Payer Address Payer Phone Subscriber Number Group Number Insured Name Patient Relationship to Insured Coverage Start Date Coverage End Date MEDICARE PART B [address] [address] [place] [address] [phone] [id number] WENDY DORAN Self - patient is the insured [facility] [address] [place] [address] [phone] [id number] VINCENT , WENDY Self - patient is the insured Medications Administered Medication Instructions Date of Administration Dosage Notes Dexamethasone 06/28/2018 1 mL Dexamethasone 05/02/2019 1 mL Dexamethasone 02/10/2022 1 mL Dexamethasone 06/09/2022 1 mL Phenergan 12.5 mgs. 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 Ca th showed [...] 12/2019 [facility]-Bronchitis 03/2018 [facility]-diarrhea 11/2015 [facility]-constipation/impaction 2015 [facility]-heart attack 12/31/2014 [facility] ER-back pain 06/2012 [facility] ER-diarrhea 03/2011
--- NOTE | 2025-07-09 11:30 | CA_ITS ---
FINAL REPORT TECHNIQUE: Axial and color Doppler waveform evaluation of the left and right upper extremity was performed. Spectral analysis was performed. CLINICAL HISTORY: NUMBNESS AND TINGLING BILATERAL HANDS,? RAYNAUD'S FINDINGS: Right upper extremity Velocities cm/sec: Subclavian: 68 Axillary: 67 Brachial proximal: 94 Brachial mid: 76 Brachial distal: 96 Radial proximal: 37 Radial mid: 61 Radial distal: 48 Ulnar posterior: 38 Ulnar mid: 39 Ulnar distal: 53 Waveforms are biphasic and triphasic. No significant plaque. Left upper extremity Velocities cm/sec: Subclavian: 103 Axillary: 54 Brachial proximal: 71 Brachial mid: 73 Brachial distal: 67 Radial proximal: 48 Radial mid: 41 Radial distal: 37 Ulnar posterior: 34 Ulnar mid: 44 Ulnar distal: 37 Waveforms are biphasic and triphasic. No significant plaque IMPRESSION: No significant peripheral vascular disease. Reviewed, Interpreted and Dictated by Bobbi Mcwilliams MD Transcribed by Ursula Jackson Authenticated and [facility]
--- OUTSIDE RECORDS SUMMARY | 2025-07-09 11:30 | XMS_ITS | Clinical Summary ---
Author Organization [facility] Address [address] [id number] Care Team Providers Care Content Engineer Name Role Phone Foreign Benitez MD Primary Care Provider [phone] Family History Medical History Relation Name Comments [...] of Treatment Not on file Care Teams Content Engineer Relationship Specialty Start Date End Date Foreign Benitez MD [facility] [address] PCP - General 11/22/20
== END 2025-07-09 23:59 | disposition home or self-care (01) ==
PROVIDERS: PCP Family Medicine; Visit Provider Nurse Practitioner
DX: R09.89 Other specified symptoms and signs involving the circulatory and respiratory systems (principal); R20.2 Paresthesia of skin; R20.8 Other disturbances of skin sensation; R20.0 Anesthesia of skin
CPT/HCPCS: 93930